=== PATIENT | male | born 1950 | race Caucasian/White ===

== ENCOUNTER → 2020-03-14 08:41 | Outpatient (BNV) | payer MEDICARE, SELFPAY | PROVIDERS: PCP Internal Medicine; Visit Provider Internal Medicine Medical Oncology | DX: Z85.118 Personal history of other malignant neoplasm of bronchus and lung (principal) | CPT/HCPCS: 99213; 99214 ==

== ENCOUNTER → 2020-05-26 10:27 | Outpatient (BNVA) | payer MEDICARE, SELFPAY | PROVIDERS: PCP Internal Medicine; Visit Provider Internal Medicine Gastroenterology | DX: Z76.89 Persons encountering health services in other specified circumstances (principal) | CPT/HCPCS: Q3014 ==

== ENCOUNTER 2020-05-27 02:42 | Inpatient (IN) | payer MEDICARE, SELFPAY ==
[2020-05-27] VITALS (19 sets, daily range): BP systolic 104–139; BP diastolic 47–75; PULSE 70–108; RESP 12–20; TEMP 36.6–37.3; O2SAT 2–97; BMI 31.3
--- NOTE | ~2020-05-27 | XR_ITS ---
EXAMINATION: XR CHEST CLINICAL INFORMATION: Difficulty breathing COMPARISON: 10/07/2019 TECHNIQUE: Frontal view of the chest was obtained. FINDINGS: Cardiac leads overlie the chest. The lungs are well expanded. Chronic left upper lobe volume loss. There is no focal consolidation, edema, or effusion. No pneumothorax. The cardiomediastinal silhouette is within normal limits. No acute osseous abnormality. XR/XR chest 1V IMPRESSION: No acute pulmonary finding.
--- NOTE | 2020-05-27 03:07 | ECG_ITS ---
Test Reason : DYSPNEA Blood Pressure : / mmHG Vent. Rate : 082 BPM Atrial Rate : 082 BPM P-R Int : 150 ms QRS Dur : 084 ms QT Int : 360 ms P-R-T Axes : 054 079 081 degrees QTc Int : 420 ms Normal sinus rhythm Normal ECG When compared with ECG of 07-OCT-2019 11:50, No significant change was found Referred By: Generic ED Physician Electronically Signed By:Carlitos Meyers
[2020-05-27 03:35] LABS: MANUAL DIFF FLAG NO
[2020-05-27 03:36] LABS: Basophils Percent Auto 0.4 % (0-2); Eosinophils Absolute Auto 0.2 X10*3/uL (0.0-0.4); Eosinophils Percent Auto 3.1 % (0-4); Hematocrit 41.5 % (42-52); Hemoglobin 12.3 g/dl (14.0-18.0); Imm Gran Abs Auto 0.03 X10*3/uL (0.00-0.03); Imm Gran Pct Auto 0.4 % (0.0-0.4); Lymphocytes Absolute Auto 0.9 X10*3/uL (1.2-4.9); Lymphocytes Percent Auto 13.1 % (20-40); Mean Corpuscular HGB Conc 29.6 g/dl (31.0-36.0); Mean Corpuscular Hemoglobin 30.4 pg (27.0-33.0); Mean Corpuscular Volume 102.5 fL (80-98); Mean Platelet Volume 9.8 fL (9.4-12.4); Monocytes Absolute Auto 0.6 X10*3/uL (0.1-1.2); Platelet Count 157 X10*3/uL (160-400); Red Blood Count 4.05 X10*6/uL (4.60-5.80); Red Cell Distribution Width 13.1 % (11.0-16.0); White Blood Count 6.8 X10*3/uL (4.8-10.8)
[2020-05-27 03:48] LABS: Glucose Urine UA NEG (NEG); Leukocyte Esterase Urine NEG (NEG); Nitrite Urine NEG (NEG); Specific Gravity - Urine >= 1.030 (1.005-1.025); Urine Blood NEG (NEG); Urine Ketones NEG (NEG); Urine Protein NEG (NEG-TRACE)
[2020-05-27 03:49] LABS: Appearance Urine CLEAR; Color Urine YELLOW
--- NOTE | 2020-05-27 03:50 | ED.GENADULT ---
HPI - General Adult General Chief complaint: Dyspnea Stated complaint: DIFF BREATHING Time Seen by Provider: 05/27/20 03:15 Source: patient Mode of arrival: EMS Limitations: no limitations History of Present Illness HPI narrative: 70-year-old male who presents emergency department for evaluation of shortness of breath. The patient has a history of COPD. He states that over the past 2-3 days he has had increased shortness breath. He states that he has been using his nebulizer machine more frequently and he has been using his inhaler more frequently with no relief of the shortness of breath. He states that he has an occasional nonproductive cough. He denied fever but he did have shaking chills at home. He denied chest pain. He states he has had several loose stools over the past 2-3 days. He denied nausea, vomiting, abdominal pain. He states that he lives at home with his and he has not had any known COVID exposures. The patient states he does wear 2 L of oxygen via nasal cannula continuously at home. Related Data Home Medications Medication Instructions Recorded Confirmed albuterol sulfate 90 mcg/actuation 2 puff PO Q4-6H PRN 01/14/20 05/27/20 aerosol inhaler ipratropium 0.5 mg-albuterol 3 mg ml INHALATION Q6H 01/14/20 05/26/20 (2.5 mg base)/3 mL nebulization soln isosorbide mononitrate 30 mg 30 mg PO DAILY 01/14/20 05/27/20 tablet,extended release 24 hr metformin 1,000 mg tablet 1,000 mg PO BID 01/14/20 05/27/20 metoprolol tartrate 25 mg tablet 25 mg PO BID 01/14/20 05/27/20 omeprazole 20 mg capsule,delayed 20 mg PO DAILY 01/14/20 05/27/20 release Previous Rx's Medication Instructions Recorded atorvastatin 80 mg tablet 80 mg PO BEDTIME #90 tab 03/25/20 glipizide 5 mg tablet 5 mg PO BID #180 tab 03/25/20 multivitamin 1 tab PO DAILY #90 tab 05/13/20 lorazepam 0.5 mg tablet 0.5 mg PO DAILY PRN #30 tab 05/17/20 escitalopram oxalate 20 mg tablet 20 mg PO DAILY #90 tab 05/19/20 Allergies Allergy/AdvReac Type Severity Reaction Status Date / Time umeclidinium Allergy Unknown hives Verified 05/27/20 02:55 [Incruse Ellipta] No Known Allergies Allergy Verified 05/27/20 02:55 [No Known Allergies*] Review of Systems Review of Systems: Yes all other systems are reviewed and are negative Neurologic: Reports Abnormal speech present [facility] Past Medical History Medical History Asthma COPD (chronic obstructive pulmonary disease) Diabetes Hyperlipemia Lung cancer Skin cancer Surgical History History of esophagogastroduodenoscopy (EGD) Hx of colonoscopy Hx of heart artery stent Social History Social History Household Members: Spouse Alcohol intake: never Smoking Status: Former smoker Use of substances other than those prescribed or required for medical reasons: No Advance Directives: No Advance Directives Information Provided: No Current occupational status: retired Physical Exam Vital Signs: Vital Signs: Last Vital Signs Temp 99.1 F 05/27/20 07:00 Pulse 95 05/27/20 07:00 Resp 19 05/27/20 07:00 BP 105/59 L 05/27/20 07:00 Pulse Ox 95 05/27/20 07:00 Body Mass Index 31.3 Const: General: cooperative Orientation/consciousness: oriented to person and oriented to place Limitations: no limitations HENMT: Head: Yes normal to inspection, Yes normocephalic and Yes atraumatic Ears: external ears normal General nose exam: Normal external nose present Face and sinus: Yes normal facial exam Mouth: Normal oral and palatal mucosa present Throat: Yes posterior oropharynx normal Eyes: Periorbital: periorbital findings normal Eyelids: Yes eyelids normal Conjunctivae: conjunctivae normal Sclerae: sclerae normal Corneas: corneas normal Pupils: Equal, round and reactive pupils present Direct Ophthalmoscopy: normal light reflex Neck: Neck: Yes full ROM, Yes no lymphadenopathy, Yes no meningeal signs, Yes trachea midline and Yes supple Chest: Chest palpation & inspection: normal inspection of the chest and normal palpation of entire chest wall Resp: Effort & Inspection: able to speak in complete sentences Auscultation: rhonchi throughout and wheezes throughout Cardio: Rate: regular rate Rhythm: regular rhythm Heart sounds: S1 normal heart sound present, S2 normal heart sound present and no murmurs GI: Inspection: Yes normal to inspection Palpation (GI): Soft to palpation, nontender, no guarding, not rigid and No hepatosplenomegaly present : General: Yes no CVA tenderness Back/Spine/Pelvis: Back: no CVA tenderness Cervical Spine: normal cervical lordosis Thoracic/Lumbar Spine: thoracic and lumbar spine normal to inspection Skin: Lesions: no lesions Rashes: no rashes Wounds: no wounds Neuro: General: oriented to person, oriented to place and no meningeal signs Cranial nerves: Yes CN's II-XII intact bilaterally and Yes Equal, round and reactive pupils present Cognition (Neuro): normal cognition Speech: Abnormal speech present Motor exam (neuro): 5/5 motor strength present throughout Extrem: General: Yes normal to inspection and Yes full ROM Psych: Appearance: well kempt Mental Status: mental status grossly normal Speech and movement: Normal speech and movement present Affect: normal affect Attitude: cooperative Thought process: Normal thought process present Thought content: Normal thought content present Course Course Course Narrative: 70-year-old male with a history of COPD who presents emergency department for evaluation of worsening shortness of breath times 2-3 days, occasional productive cough, and chills. The patient has been using his nebulizer machine and inhalers more frequently over the past several days with little improvement of his shortness of breath. The patient was hypoxic on presentation with an O2 saturation of 85% on room air and his O2 saturation came up to 92% on 2 L via nasal cannula. Lung exam revealed diffuse rhonchi and diffuse wheezing. Differential includes but is not limited to COPD exacerbation, COVID pneumonia, pneumonia, CHF. Did order a workup on this patient to include COVID-19 testing. Patient was ordered to get Solu-Medrol 125 mg IV and an hour long nebulizer of albuterol 7.5 mg. 0458: The patient's laboratory evaluation revealed an elevated bicarb of 48, this is most likely secondary to his chronic COPD. His WBC was normal at 6800. The patient's flu/COVID/RSV tests were negative. Chest x-ray revealed chronic changes with no evidence of acute pneumonia. The patient states that he is feeling minimally better after the above treatment. My impression is that the patient is having a COPD exacerbation and giving the progressive nature of his shortness of breath and the fact that he is using his nebulizer and inhaler more frequently with little effect, the patient will need to be admitted for further management. I will discuss the patient's case with the covering hospitalist. 0656: The patient's ABG did reveal an elevated pCO2 of 101. The patient appears well and I did discuss this elevated pCO2 with the covering continuous pickling line pickler helper Dr. Jones. He recommended that the patient receive acetazolamide 250 mg IV b.i.d. x3 days. He did not think the patient needs BiPAP or ICU level of care at this time. I did order the 1st dose here in the emergency department. I will discuss this with the covering hospitalist. 0742: I did discuss the patient's presentation with Dr. Ventura and the patient will be admitted to the hospitalist service. Medical Decision Making Lab Data Result diagrams: 05/27/20 03:23 05/27/20 03:23 Labs: Lab Results 05/27/20 05/27/20 05/27/20 Range/Units 03:23 03:23 03:23 WBC 6.8 (4.8-10.8) X10*3/uL RBC 4.05 L (4.60-5.80) X10*6/uL Hgb 12.3 L (14.0-18.0) g/dl Hct 41.5 L (42-52) % MCV 102.5 H (80-98) fL MCH 30.4 (27.0-33.0) pg MCHC 29.6 L (31.0-36.0) g/dl RDW 13.1 (11.0-16.0) % Plt Count 157 L (160-400) X10*3/uL MPV 9.8 (9.4-12.4) fL Immature Gran % (Auto) 0.4 (0.0-0.4) % Neut % (Auto) 74.0 H (45-73) % Lymph % (Auto) 13.1 L (20-40) % [place] % (Auto) 9.0 (2-11) % Eos % (Auto) 3.1 (0-4) % Baso % (Auto) 0.4 (0-2) % Lymph # (Auto) 0.9 L (1.2-4.9) X10*3/uL [place] # (Auto) 0.6 (0.1-1.2) X10*3/uL Eos # (Auto) 0.2 (0.0-0.4) X10*3/uL Baso # (Auto) 0.0 (0.0-0.2) X10*3/uL Abs Immat Gran (auto) 0.03 (0.00-0.03) X10*3/uL Absolute Neuts (auto) 5.0 (2.0-8.3) X10*3/uL Absolute Nucleated RBC 0.000 (0.0-0.012) X10*3/uL Nucleated RBC % (auto) 0.0 (0.0-0.2) /100WBC Hold Blue Top SEE NOTE ABG pH (7.35-7.45) ABG pCO2 (32-45) mmHg ABG pO2 (83-108) mmHg ABG HCO3 (22-26) mmol/L ABG O2 Saturation % ABG Base Excess Oxygen Given Sodium 143 (135-145) mmol/L Potassium 4.1 (3.3-5.1) mmol/L Chloride 89 L (96-108) mmol/L Carbon Dioxide 48 H* D (22-29) mmol/L Anion Gap 10 L (12-20) BUN 11 (9-16) mg/dL Creatinine 0.72 (0.5-1.4) mg/dL Estim Creat Clear Calc 99.2 Estimated GFR > 60 Random Glucose 78 D (60-115) mg/dL Calcium 8.9 (8.4-10.2) mg/dL Total Bilirubin 0.7 (0.0-1.0) mg/dL Direct Bilirubin 0.3 (0.0-0.5) mg/dL AST 23 (5-37) U/L ALT 30 (0-40) U/L Alkaline Phosphatase 84 (39-117) U/L Troponin I High Sens (<3.5-35.0) ng/L B-Natriuretic Peptide (<100) pg/mL Total Protein 7.1 (6.5-8.0) g/dL Albumin 4.4 (3.5-5.0) g/dL Urine Color Urine Appearance Urine pH (5.0-8.0) Ur Specific [place] (1.005-1.025) Urine Protein (NEG-TRACE) MG/DL Urine Glucose (UA) (NEG) MG/DL Urine Ketones (NEG) MG/DL Urine Blood (NEG) Urine Nitrite (NEG) Ur Leukocyte Esterase (NEG) Coronavirus (PCR) (Negative) Influenza Type A (PCR) (Negative) Influenza Type B (PCR) (Negative) RSV RNA Qual (PCR) (Negative) 05/27/20 05/27/20 05/27/20 Range/Units 03:23 03:23 03:42 WBC (4.8-10.8) X10*3/uL RBC (4.60-5.80) X10*6/uL Hgb (14.0-18.0) g/dl Hct (42-52) % MCV (80-98) fL MCH (27.0-33.0) pg MCHC (31.0-36.0) g/dl RDW (11.0-16.0) % Plt Count (160-400) X10*3/uL MPV (9.4-12.4) fL Immature Gran % (Auto) (0.0-0.4) % Neut % (Auto) (45-73) % Lymph % (Auto) (20-40) % [place] % (Auto) (2-11) % Eos % (Auto) (0-4) % Baso % (Auto) (0-2) % Lymph # (Auto) (1.2-4.9) X10*3/uL [place] # (Auto) (0.1-1.2) X10*3/uL Eos # (Auto) (0.0-0.4) X10*3/uL Baso # (Auto) (0.0-0.2) X10*3/uL Abs Immat Gran (auto) (0.00-0.03) X10*3/uL Absolute Neuts (auto) (2.0-8.3) X10*3/uL Absolute Nucleated RBC (0.0-0.012) X10*3/uL Nucleated RBC % (auto) (0.0-0.2) /100WBC Hold Blue Top ABG pH (7.35-7.45) ABG pCO2 (32-45) mmHg ABG pO2 (83-108) mmHg ABG HCO3 (22-26) mmol/L ABG O2 Saturation % ABG Base Excess Oxygen Given Sodium (135-145) mmol/L Potassium (3.3-5.1) mmol/L Chloride (96-108) mmol/L Carbon Dioxide (22-29) mmol/L Anion Gap (12-20) BUN (9-16) mg/dL Creatinine (0.5-1.4) mg/dL Estim Creat Clear Calc Estimated GFR Random Glucose (60-115) mg/dL Calcium (8.4-10.2) mg/dL Total Bilirubin (0.0-1.0) mg/dL Direct Bilirubin (0.0-0.5) mg/dL AST (5-37) U/L ALT (0-40) U/L Alkaline Phosphatase (39-117) U/L Troponin I High Sens < 3.5 (<3.5-35.0) ng/L B-Natriuretic Peptide 20 (<100) pg/mL Total Protein (6.5-8.0) g/dL Albumin (3.5-5.0) g/dL Urine Color YELLOW Urine Appearance CLEAR Urine pH 6.0 (5.0-8.0) Ur Specific [place] >= 1.030 H (1.005-1.025) Urine Protein NEG (NEG-TRACE) MG/DL Urine Glucose (UA) NEG (NEG) MG/DL Urine Ketones NEG (NEG) MG/DL Urine Blood NEG (NEG) Urine Nitrite NEG (NEG) Ur Leukocyte Esterase NEG (NEG) Coronavirus (PCR) NEGATIVE (Negative) Influenza Type A (PCR) NEGATIVE (Negative) Influenza Type B (PCR) NEGATIVE (Negative) RSV RNA Qual (PCR) NEGATIVE (Negative) 05/27/20 Range/Units 06:07 WBC (4.8-10.8) X10*3/uL RBC (4.60-5.80) X10*6/uL Hgb (14.0-18.0) g/dl Hct (42-52) % MCV (80-98) fL MCH (27.0-33.0) pg MCHC (31.0-36.0) g/dl RDW (11.0-16.0) % Plt Count (160-400) X10*3/uL MPV (9.4-12.4) fL Immature Gran % (Auto) (0.0-0.4) % Neut % (Auto) (45-73) % Lymph % (Auto) (20-40) % [place] % (Auto) (2-11) % Eos % (Auto) (0-4) % Baso % (Auto) (0-2) % Lymph # (Auto) (1.2-4.9) X10*3/uL [place] # (Auto) (0.1-1.2) X10*3/uL Eos # (Auto) (0.0-0.4) X10*3/uL Baso # (Auto) (0.0-0.2) X10*3/uL Abs Immat Gran (auto) (0.00-0.03) X10*3/uL Absolute Neuts (auto) (2.0-8.3) X10*3/uL Absolute Nucleated RBC (0.0-0.012) X10*3/uL Nucleated RBC % (auto) (0.0-0.2) /100WBC Hold Blue Top ABG pH 7.31 L (7.35-7.45) ABG pCO2 101 H* (32-45) mmHg ABG pO2 70 L (83-108) mmHg ABG HCO3 51 H (22-26) mmol/L ABG O2 Saturation 93.0 % ABG Base Excess 19.8 Oxygen Given 3 L Sodium (135-145) mmol/L Potassium (3.3-5.1) mmol/L Chloride (96-108) mmol/L Carbon Dioxide (22-29) mmol/L Anion Gap (12-20) BUN (9-16) mg/dL Creatinine (0.5-1.4) mg/dL Estim Creat Clear Calc Estimated GFR Random Glucose (60-115) mg/dL Calcium (8.4-10.2) mg/dL Total Bilirubin (0.0-1.0) mg/dL Direct Bilirubin (0.0-0.5) mg/dL AST (5-37) U/L ALT (0-40) U/L Alkaline Phosphatase (39-117) U/L Troponin I High Sens (<3.5-35.0) ng/L B-Natriuretic Peptide (<100) pg/mL Total Protein (6.5-8.0) g/dL Albumin (3.5-5.0) g/dL Urine Color Urine Appearance Urine pH (5.0-8.0) Ur Specific [place] (1.005-1.025) Urine Protein (NEG-TRACE) MG/DL Urine Glucose (UA) (NEG) MG/DL Urine Ketones (NEG) MG/DL Urine Blood (NEG) Urine Nitrite (NEG) Ur Leukocyte Esterase (NEG) Coronavirus (PCR) (Negative) Influenza Type A (PCR) (Negative) Influenza Type B (PCR) (Negative) RSV RNA Qual (PCR) (Negative) ECG Data Attestation: I personally reviewed and interpreted this ECG as follows: Interpretation: 0253: Normal sinus rhythm with a rate of 82, normal VT, QRS and QTC intervals, no ST segment elevation or depression, normal EKG. Critical Care Time Critical Care Time Critical Care Time: Yes Total Critical Care Time: 45 Attestation: Critical Care: The patient was critically ill with a high probability of imminent or life threatening deterioration. I spent greater than 30 minutes of discontinuous time evaluating the patient,delivering critical care at the bedside, discussing and evaluating pertinent data with consultants. Critical care time does not include time spent performing separately billable procedures or teaching. Total time spent performing critical care was 45 minutes. Discharge Plan Discharge Prescriptions: No Action atorvastatin 80 mg tablet 80 mg PO BEDTIME Qty: 90 RF: 1 glipizide 5 mg tablet 5 mg PO BID Qty: 180 RF: 1 multivitamin [Daily-Kathleen] Tablet 1 tab PO DAILY Qty: 90 RF: 3 lorazepam 0.5 mg tablet 0.5 mg PO DAILY PRN (Reason: anxiety) Qty: 30 RF: 0 escitalopram oxalate 20 mg tablet 20 mg PO DAILY Qty: 90 RF: 1 omeprazole 20 mg capsule,delayed release(DR/EC) 20 mg PO DAILY RF: 0 metoprolol tartrate 25 mg tablet 25 mg PO BID RF: 0 isosorbide mononitrate 30 mg tablet extended release 24 hr 30 mg PO DAILY RF: 0 metformin 1,000 mg tablet 1,000 mg PO BID RF: 0 albuterol sulfate 90 mcg/actuation HFA aerosol inhaler 2 puff PO Q4-6H PRN (Reason: Shortness Of Breath Or Wheezing) RF: 0 ipratropium-albuterol 0.5 mg-3 mg(2.5 mg base)/3 mL solution for nebulization inhalation Q6H RF: 0
[2020-05-27] MEDS: Albuterol Sulfate (0.083%) 2.5 MG/3 ML VIAL.NEB 7.5 MG INHALE (04:08)
[2020-05-27 04:13] LABS: Anion Gap 10 (12-20); Blood Urea Nitrogen 11 mg/dL (9-16); Calcium 8.9 mg/dL (8.4-10.2); Carbon Dioxide 48 mmol/L (22-29); Chloride 89 mmol/L (96-108); Creatinine Clr Calc Pharmacy 99.2; Estimated Glomerular Filt Rate > 60; Glucose Random 78 mg/dL (60-115); Potassium 4.1 mmol/L (3.3-5.1); Sodium 143 mmol/L (135-145)
[2020-05-27 04:14] LABS: Influenza A PCR NEGATIVE (Negative); Influenza B PCR NEGATIVE (Negative); Resp Syncy Virus RNA Qual PCR NEGATIVE (Negative); SARS COV2 PCR INHOUSE NEGATIVE (Negative)
[2020-05-27 04:19] LABS: B Type Natriuretic Peptide 20 pg/mL (<100); Troponin-I High Sensitivity < 3.5 ng/L (<3.5-35.0)
[2020-05-27 04:27] LABS: Alanine Aminotransferase 30 U/L (0-40); Albumin Level 4.4 g/dL (3.5-5.0); Alkaline Phosphatase 84 U/L (39-117); Aspartate Amino Transferase 23 U/L (5-37); Bilirubin Direct 0.3 mg/dL (0.0-0.5); Bilirubin Total 0.7 mg/dL (0.0-1.0); Total Protein 7.1 g/dL (6.5-8.0)
[2020-05-27 06:21] LABS: Pt Ventilation O2% 3 L
[2020-05-27 06:24] LABS: Base Excess ABG 19.8; HCO3 ABG 51 mmol/L (22-26); PO2 ABG 70 mmHg (83-108); pH ABG 7.31 (7.35-7.45)
[2020-05-27 06:25] LABS: ABG PCO2 101 mmHg (32-45)
--- NOTE | 2020-05-27 06:51 | PC.NURSE ---
Report given to KATIE Ozuna and care transferred at this time
--- NOTE | 2020-05-27 07:11 | PC.NURSE ---
report taken from Erica WILSON. pt resting comfortably upon assessment. no respiratory distress. pt wearing 2L o2 which he states he wears at baseline. vitals updated. pt Co2 level elevated. order for Diamox IV push, call to pharmacy, will bring med. pt aware he will be admitted to hospital.
[2020-05-27] MEDS: acetaZOLAMIDE sodium 500 MG VIAL 250 MG IVPUSH (07:20)
--- NOTE | 2020-05-27 10:12 | PC.NURSE ---
patient taken off bipap. ABG redrawn. waiting results
[2020-05-27 10:16] LABS: Pt Ventilation O2% 30%
[2020-05-27 10:23] LABS: Base Excess ABG 11.8; HCO3 ABG 40 mmol/L (22-26); PO2 ABG 65 mmHg (83-108); pH ABG 7.33 (7.35-7.45)
[2020-05-27 10:24] LABS: ABG PCO2 75 mmHg (32-45)
--- NOTE | 2020-05-27 10:46 | P.HPHOSP_ITS ---
History of Present Illness Date of Service: 05/27/20 Chief Complaint: shortness of breath hypoxia 70-year-old male with history of COPD and lung cancer presented with worsening shortness of breath for last 3- 4 days, patient reported he quit smoking 10 15 years back, patient was noticing more shortness of breath for last 3 -4 days was getting worse with activity, patient also reported he was not able to sleep flat at night , patient tried nebulizer at home with no improvement, patient denies any fever chills cough or sick contacts, COVID PCR was negative, in the ER ABG shows hypercapnia with pCO2 of 100, patient was awake alert, patient was placed on BiPAP for few hours with improvement in pCO2 and inpatient admission was requested, patient has known history of lung cancer and follows Dr. Perdomo Review of Systems Constitutional: Constitutional: Reports weakness Cardiovascular: Cardiovascular: Denies chest pain, Reports dyspnea and Reports dyspnea on exertion Respiratory: Respiratory: Reports dyspnea and Reports dyspnea on exertion Gastrointestinal: Gastrointestinal: Denies heartburn and Denies vomiting Musculoskeletal: Musculoskeletal: Reports no additional musculoskeletal complaints Neurologic: Denies focal weakness and Reports weakness PMFSH Medical History Asthma COPD (chronic obstructive pulmonary disease) Diabetes Hyperlipemia Lung cancer Skin cancer Family History (Updated 05/27/20 @ 15:21 by Leo Antonio MD) Other HTN (hypertension) Surgical History History of esophagogastroduodenoscopy (EGD) Hx of colonoscopy Hx of heart artery stent Social History Household Members: Spouse Alcohol intake: never Smoking Status: Former smoker Use of substances other than those prescribed or required for medical reasons: No Advance Directives: No Advance Directives Information Provided: No Current occupational status: retired Meds Allergies Allergy/AdvReac Type Severity Reaction Status Date / Time umeclidinium Allergy Unknown hives Verified 05/27/20 02:55 [Incruse Ellipta] No Known Allergies Allergy Verified 05/27/20 02:55 [No Known Allergies*] Active Medications: Current Medications Generic Name Dose Route Start Last Admin Trade Name Freq PRN Reason Stop Dose Admin Pharmacy Consult 1 each 05/27/20 04:57 Consult Rx Perform Med Rec MISCELLANE ONCE PRN Consult order Home Medications Medication Instructions Recorded Confirmed Last Taken Type albuterol sulfate 90 mcg/actuation 2 puff PO Q4-6H PRN 01/14/20 05/27/20 05/27/20 History aerosol inhaler 0200 ipratropium 0.5 mg-albuterol 3 mg ml INHALATION Q6H 01/14/20 05/26/20 Unknown History (2.5 mg base)/3 mL nebulization soln isosorbide mononitrate 30 mg 30 mg PO DAILY 01/14/20 05/27/20 Unknown History tablet,extended release 24 hr metformin 1,000 mg tablet 1,000 mg PO BID 01/14/20 05/27/20 Unknown History metoprolol tartrate 25 mg tablet 25 mg PO BID 01/14/20 05/27/20 Unknown History omeprazole 20 mg capsule,delayed 20 mg PO DAILY 01/14/20 05/27/20 Unknown History release Physical Exam Vital Signs and Narrative: Vital Signs: Last Vital Signs Temp 99.1 F 05/27/20 07:00 Pulse 94 05/27/20 10:00 Resp 18 05/27/20 10:00 BP 111/75 05/27/20 10:00 Pulse Ox 95 05/27/20 10:00 Body Mass Index 31.3 Results Labs CBC and Chem 7: 05/27/20 03:23 05/27/20 03:23 Labs: Laboratory Results - last 24 hr 05/27/20 05/27/20 05/27/20 03:23 03:23 03:23 MCV 102.5 H MCH 30.4 MCHC 29.6 L RDW 13.1 Plt Count 157 L MPV 9.8 Immature Gran % (Auto) 0.4 Neut % (Auto) 74.0 H Lymph % (Auto) 13.1 L [place] % (Auto) 9.0 Eos % (Auto) 3.1 Baso % (Auto) 0.4 Lymph # (Auto) 0.9 L [place] # (Auto) 0.6 Eos # (Auto) 0.2 Baso # (Auto) 0.0 Abs Immat Gran (auto) 0.03 Absolute Neuts (auto) 5.0 Absolute Nucleated RBC 0.000 Nucleated RBC % (auto) 0.0 Hold Blue Top SEE NOTE ABG pH ABG pCO2 ABG pO2 ABG HCO3 ABG O2 Saturation ABG Base Excess Oxygen Given Anion Gap 10 L Estim Creat Clear Calc 99.2 Estimated GFR > 60 Random Glucose 78 D Calcium 8.9 Total Bilirubin 0.7 Direct Bilirubin 0.3 AST 23 ALT 30 Alkaline Phosphatase 84 Troponin I High Sens B-Natriuretic Peptide Total Protein 7.1 Albumin 4.4 Urine Color Urine Appearance Urine pH Ur Specific [place] Urine Protein Urine Glucose (UA) Urine Ketones Urine Blood Urine Nitrite Ur Leukocyte Esterase Coronavirus (PCR) Influenza Type A (PCR) Influenza Type B (PCR) RSV RNA Qual (PCR) 05/27/20 05/27/20 05/27/20 03:23 03:23 03:42 MCV MCH MCHC RDW Plt Count MPV Immature Gran % (Auto) Neut % (Auto) Lymph % (Auto) [place] % (Auto) Eos % (Auto) Baso % (Auto) Lymph # (Auto) [place] # (Auto) Eos # (Auto) Baso # (Auto) Abs Immat Gran (auto) Absolute Neuts (auto) Absolute Nucleated RBC Nucleated RBC % (auto) Hold Blue Top ABG pH ABG pCO2 ABG pO2 ABG HCO3 ABG O2 Saturation ABG Base Excess Oxygen Given Anion Gap Estim Creat Clear Calc Estimated GFR Random Glucose Calcium Total Bilirubin Direct Bilirubin AST ALT Alkaline Phosphatase Troponin I High Sens < 3.5 B-Natriuretic Peptide 20 Total Protein Albumin Urine Color YELLOW Urine Appearance CLEAR Urine pH 6.0 Ur Specific [place] >= 1.030 H Urine Protein NEG Urine Glucose (UA) NEG Urine Ketones NEG Urine Blood NEG Urine Nitrite NEG Ur Leukocyte Esterase NEG Coronavirus (PCR) NEGATIVE Influenza Type A (PCR) NEGATIVE Influenza Type B (PCR) NEGATIVE RSV RNA Qual (PCR) NEGATIVE 05/27/20 05/27/20 06:07 10:05 MCV MCH MCHC RDW Plt Count MPV Immature Gran % (Auto) Neut % (Auto) Lymph % (Auto) [place] % (Auto) Eos % (Auto) Baso % (Auto) Lymph # (Auto) [place] # (Auto) Eos # (Auto) Baso # (Auto) Abs Immat Gran (auto) Absolute Neuts (auto) Absolute Nucleated RBC Nucleated RBC % (auto) Hold Blue Top ABG pH 7.31 L 7.33 L ABG pCO2 101 H* 75 H* ABG pO2 70 L 65 L ABG HCO3 51 H 40 H ABG O2 Saturation 93.0 91.0 ABG Base Excess 19.8 11.8 Oxygen Given 3 L 30% Anion Gap Estim Creat Clear Calc Estimated GFR Random Glucose Calcium Total Bilirubin Direct Bilirubin AST ALT Alkaline Phosphatase Troponin I High Sens B-Natriuretic Peptide Total Protein Albumin Urine Color Urine Appearance Urine pH Ur Specific [place] Urine Protein Urine Glucose (UA) Urine Ketones Urine Blood Urine Nitrite Ur Leukocyte Esterase Coronavirus (PCR) Influenza Type A (PCR) Influenza Type B (PCR) RSV RNA Qual (PCR) Imaging Radiologist's Impressions: Impressions Chest X-Ray 05/27/20 03:07 IMPRESSION: No acute pulmonary finding. Assessment and Plan (1) COPD exacerbation: Status: Acute (2) Acute respiratory failure with hypoxia and hypercapnia: Status: Acute (3) Gallbladder polyp: Status: Acute (4) GERD (gastroesophageal reflux disease): Problem details: Continue omeprazole 20 mg once daily Status: Acute (5) Cirrhosis of liver without ascites: Status: Acute (6) Herpes zoster: Qualifiers: Herpes zoster complications: without complications Qualified Code(s): B02.9 - Zoster without complications Status: Acute (7) Squamous cell carcinoma of lung: Status: Acute 70-year-old male with known history of COPD presented with worsening shortness of breath , ABG on admission shows hypoxia with pCO2 101 and pH 7.3, patient was placed on BiPAP for few hours with improvement in pCO2 and admitted to telemetry Acute on chronic hypercapnic and hypoxic respiratory failure secondary to COPD exacerbation COVID PCR negative continue Duonebs Nebulizers ATC and PRN continue Solu-Medrol continue O2 supplement pulmonology consult for significant hypercapnia DM II hold metformin will start on sliding scale insulin monitor blood glucose HLD continue Statin Hx CAD troponin and BNP normal on admission Continue ASA, Isosorbide and BB GERD continue Omeprazole Anxiety continue Ativan and Escitalopram history of lung cancer follows Dr. Perdomo as outpatient history of cirrhosis SNELL follow-up GI as outpatient DVT PPx Heparin SC
[2020-05-27 14:22] LABS: Glucose, Whole Blood 341 mg/dL (60-115)
[2020-05-27] MEDS: LORazepam 0.5 MG TABLET PO (15:12)
[2020-05-27] MEDS: Isosorbide Mononitrate 30 MG TAB.ER.24H PO (15:13)
[2020-05-27] MEDS: Albuterol/Iprat 2.5/0.5MG 3 ML AMPUL.NEB INHALE ×2 (15:19→20:04)
[2020-05-27 15:23] LABS: Glucose, Whole Blood 361 mg/dL (60-115)
[2020-05-27] MEDS: Insulin Lispro 100 UNIT/ML 3 ML VIAL SUBCUT ×3 (15:29→21:31)
[2020-05-27 16:16] LABS: Glucose, Whole Blood 360 mg/dL (60-115)
--- NOTE | 2020-05-27 17:50 | PM.CNPUL ---
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 Marr, and treated with Symbicort, Spiriva, Daliresp, and albuterol MDI/nebs. 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 Perdomo, nonalcoholic steatohepatitis with early cirrhosis, coronary artery disease, diabetes mellitus, and hypertension admitted on 05/27/2020 with 3-4 day history of progressive dyspnea associated with wheezing. On ER evaluation patient was noted to have an acute exacerbation of his underlying COPD. He has been started on nebulized bronchodilators and systemic glucocorticoids with some improvement. He has had a negative COVID PCR. He was noted to have significantly elevated pCO2, bicarbonate, and mild acidosis with pH of 7.31. He has been briefly tried on BiPAP with some improvement in his pCO2, however no significant changes in his pH. He remained fully alert and oriented with no evidence of CO2 narcosis. On my evaluation he reports improved dyspnea and wheezing since his initial evaluation. Review of Systems Constitutional: Constitutional: Denies daytime sleepiness, Denies excessive sweating, Denies fatigue, Denies fever(s), Denies lethargy, Denies malaise, Denies night sweats, Denies snoring and Denies weight loss Eyes: Eyes: Denies blurry vision and Denies itchy eyes ENT: Denies nasal congestion, Denies post nasal drip, Denies sinus pain, Denies sinus pressure and Denies other ( Thrush) Cardiovascular: Cardiovascular: Denies chest pain, Denies pedal edema, Reports dyspnea, Denies orthopnea and Denies paroxysmal nocturnal dyspnea Respiratory: Respiratory: Denies cough, Denies hemoptysis, Denies excessive phlegm production, Reports dyspnea, Denies snoring and Reports wheezing Gastrointestinal: Gastrointestinal: Denies abdominal pain and Denies heartburn Musculoskeletal: Musculoskeletal: Denies myalgias, Denies arthralgias and Denies joint swelling Integumentary/Breasts: Skin/Breast: Denies rash Neurologic: Denies memory loss and Denies seizure-like activity Psychiatric: Psychiatric: Denies abnormal sleep pattern, Denies anxiety and Denies memory loss Endocrine: Endocrine: Denies excessive sweating, Denies fatigue and Denies heat intolerance Hematologic/Lymphatic: Hematologic/Lymphatic: Denies easy bruising Allergic/Immunologic: Allergic/Immunologic: Denies itchy eyes, Denies seasonal rhinorrhea and Reports wheezing [facility] Past Medical History Medical History Asthma COPD (chronic obstructive pulmonary disease) Diabetes Hyperlipemia Lung cancer Skin cancer Family History Family History (Updated 05/27/20 @ 15:21 by Leo Antonio MD) Other HTN (hypertension) Surgical History Surgical History History of esophagogastroduodenoscopy (EGD) Hx of colonoscopy Hx of heart artery stent Social History Social History Household Members: Spouse Alcohol intake: never Smoking Status: Former smoker Use of substances other than those prescribed or required for medical reasons: No Advance Directives: No Advance Directives Information Provided: No Current occupational status: retired Meds Allergies Allergy/AdvReac Type Severity Reaction Status Date / Time umeclidinium Allergy Unknown hives Verified 05/27/20 02:55 [Incruse Ellipta] No Known Allergies Allergy Verified 05/27/20 02:55 [No Known Allergies*] Active Medications: Current Medications Generic Name Dose Route Start Last Admin Trade Name Freq PRN Reason Stop Dose Admin Albuterol/Ipratropium 3 ml 05/27/20 14:32 05/27/20 16:14 Albuterol/Iprat 2.5/0.5mg 3 Ml Ampul.Neb INHALE Not Given RQ4H WHILE AWAKE DUTCH Albuterol/Ipratropium 3 ml 05/27/20 14:32 Albuterol/Iprat 2.5/0.5mg 3 Ml Ampul.Neb INHALE RQ4H PRN Dyspnea Atorvastatin Calcium 80 mg 05/27/20 21:00 Atorvastatin Calcium 80 Mg Tablet PO BEDTIME [facility] Escitalopram Oxalate 20 mg 05/28/20 09:00 Escitalopram Oxalate 20 Mg Tablet PO DAILY [facility] Heparin Sodium (Porcine) 5,000 unit 05/27/20 16:00 Heparin Sodium,Porcine 5,000 Unit/Ml Vial SUBCUT Q12H [facility] Insulin Human Lispro 0 unit 05/27/20 16:30 05/27/20 15:29 Insulin Lispro 100 Unit/Ml 3 Ml Vial SUBCUT 10 unit QIDACHS [facility] Administration Protocol Isosorbide Mononitrate 30 mg 05/27/20 14:32 05/27/20 15:13 Isosorbide Mononitrate 30 Mg Tab.Er.24h PO 30 mg DAILY [facility] Administration Protocol Lorazepam 0.5 mg 05/27/20 14:32 05/27/20 15:12 Lorazepam 0.5 Mg Tablet PO 0.5 mg DAILY PRN Administration anxiety Metformin HCl 1,000 mg 05/27/20 21:00 Metformin Hcl 1,000 Mg Tablet PO BID [facility] Methylprednisolone Sodium Succinate 40 mg 05/27/20 15:00 05/27/20 15:10 Methylprednisolone Sod Succ/Pf 40 Mg/Ml Vial IVPUSH 40 mg Q12H [facility] Administration Metoprolol Tartrate 25 mg 05/27/20 21:00 Metoprolol Tartrate 25 Mg Tablet PO BID [facility] Protocol Multivitamins/Vitamin C 1 tab 05/28/20 09:00 Multivitamin Tablet PO DAILY [facility] Omeprazole 20 mg 05/28/20 09:00 Omeprazole 20 Mg Capsule. PO DAILY [facility] Pharmacy Consult 1 each 05/27/20 04:57 Consult Rx Perform Med Rec MISCELLANE ONCE PRN Consult order Sodium Chloride 3 ml 05/27/20 16:00 0.9 % Sodium Chloride Flush 3 M[facility] [place] [facility] Medications Medication Instructions Recorded Confirmed Last Taken Type albuterol sulfate 90 mcg/actuation 2 puff PO Q4-6H PRN 01/14/20 05/27/20 05/27/20 History aerosol inhaler 0200 ipratropium 0.5 mg-albuterol 3 mg ml INHALATION Q6H 01/14/20 05/26/20 Unknown History (2.5 mg base)/3 mL nebulization soln isosorbide mononitrate 30 mg 30 mg PO DAILY 01/14/20 05/27/20 Unknown History tablet,extended release 24 hr metformin 1,000 mg tablet 1,000 mg PO BID 01/14/20 05/27/20 Unknown History metoprolol tartrate 25 mg tablet 25 mg PO BID 01/14/20 05/27/20 Unknown History omeprazole 20 mg capsule,delayed 20 mg PO DAILY 01/14/20 05/27/20 Unknown History release Physical Exam Vital Signs: Vital Signs: Last Vital Signs Temp 98.9 F 05/27/20 14:12 Pulse 96 05/27/20 17:20 Resp 20 05/27/20 17:20 BP 109/55 L 05/27/20 17:20 Pulse Ox 94 05/27/20 17:20 Body Mass Index 31.3 Const: General: no acute distress, alert and awake Eyes: Sclerae: sclerae normal EOM: EOMs intact bilaterally Neck: Neck: Yes no lymphadenopathy, Yes trachea midline and Yes supple Resp: Effort & Inspection: normal respiratory effort and no respiratory distress Auscultation: wheezes expiratory wheezes (Bilateral) and other (Poor bilateral air movement) Cardio: Rate: regular rate Rhythm: regular rhythm Heart sounds: no gallops, no murmurs and no rubs GI: Palpation (GI): Soft to palpation and Other GI palpation findings present ( Nontender) Auscultation: normal bowel sounds Extrem: General: No clubbing, No cyanosis and Yes edema (Trace bilateral) Results Laboratory Findings CBC and BMP: 05/27/20 03:23 05/27/20 03:23 ABG, PT/INR, D-dimer: ABG ABG pH 7.33 (7.35-7.45) L 05/27/20 10:05 ABG pCO2 75 mmHg (32-45) H* 05/27/20 10:05 ABG pO2 65 mmHg (83-108) L 05/27/20 10:05 ABG O2 Saturation 91.0 % 05/27/20 10:05 Abnormal lab findings: Abnormal Labs 05/27/20 05/27/20 05/27/20 03:23 03:23 03:42 RBC 4.05 L Hgb 12.3 L Hct 41.5 L MCV 102.5 H MCHC 29.6 L Plt Count 157 L Neut % (Auto) 74.0 H Lymph % (Auto) 13.1 L Lymph # (Auto) 0.9 L ABG pH ABG pCO2 ABG pO2 ABG HCO3 Chloride 89 L Carbon Dioxide 48 H* D Anion Gap 10 L POC Glucose Ur Specific [place] >= 1.030 H 05/27/20 05/27/20 05/27/20 06:07 10:05 14:18 RBC Hgb Hct MCV MCHC Plt Count Neut % (Auto) Lymph % (Auto) Lymph # (Auto) ABG pH 7.31 L 7.33 L ABG pCO2 101 H* 75 H* ABG pO2 70 L 65 L ABG HCO3 51 H 40 H Chloride Carbon Dioxide Anion Gap POC Glucose 341 H Ur Specific [place] 05/27/20 05/27/20 15:17 16:12 RBC Hgb Hct MCV MCHC Plt Count Neut % (Auto) Lymph % (Auto) Lymph # (Auto) ABG pH ABG pCO2 ABG pO2 ABG HCO3 Chloride Carbon Dioxide Anion Gap POC Glucose 361 H* 360 H* Ur Specific [place] Assessment and Plan (1) COPD exacerbation: Status: Acute Impression: Acute exacerbation of underlying severe supplemental oxygen dependent COPD with chronic CO2 retention. Now improving slowly. Recommendation: Agree with nebulized bronchodilators and systemic glucocorticoids. Would consider 5 day course of azithromycin for its anti-inflammatory effect in COPD patient's. Would suggest to 3 day course of acetazolamide to 100 mg IV twice a day.
[2020-05-27 18:04] LABS: Glucose, Whole Blood 356 mg/dL (60-115)
[2020-05-27] MEDS: 0.9 % Sodium Chloride Flush 3 ML SYRINGE IVFLUSH (18:16)
--- NOTE | 2020-05-27 20:05 | PC.NURSE ---
ATTEMPTED TO CALL I[facility] TO GIVE RN TO RN REPORT. [facility] NURSE UNAVAILABLE AT THIS TIME, INSTRUCTED TO CALL BACK THIS RN AT EXTENSION [phone]. AWAITING CALL BACK. WILL CONTINUE TO MONITOR PATIENT. RESPIRATORY THERAPIST AT BEDSIDE AT THIS TIME.
[2020-05-27 21:22] LABS: Glucose, Whole Blood 396 mg/dL (60-115)
[2020-05-27] MEDS: metFORMIN HCl 1,000 MG TABLET 1000 MG PO (21:30)
[2020-05-27] MEDS: Atorvastatin Calcium 80 MG TABLET PO (21:30)
[2020-05-27] MEDS: Metoprolol Tartrate 25 MG TABLET PO (21:30)
[2020-05-28] VITALS (12 sets, daily range): BP systolic 101–150; BP diastolic 54–85; PULSE 74–104; RESP 18–19; TEMP 36.6–37.1; O2SAT 85–94
[2020-05-28] MEDS: 0.9 % Sodium Chloride Flush 3 ML SYRINGE IVFLUSH ×3 (00:09→16:21)
[2020-05-28] MEDS: LORazepam 0.5 MG TABLET PO (00:15)
[2020-05-28] MEDS: Heparin Sodium,Porcine 5,000 UNIT/ML VIAL 5000 UNIT SUBCUT (03:42)
[2020-05-28] MEDS: Albuterol/Iprat 2.5/0.5MG 3 ML AMPUL.NEB INHALE ×4 (07:42→19:36)
[2020-05-28 08:17] LABS: Glucose, Whole Blood 218 mg/dL (60-115)
--- NOTE | 2020-05-28 08:39 | MHC.CM.PN ---
CM met with Patient at bedside and addressed IMM, giving Patient the original and placing a copy on the chart.Patient lives in a house with his and 12 year old Grandson and he uses O2 supplied through [employer].Patient's goal is to return home and CM has initiated and will follow for dc planning. PCP is Dr. Anne-Marie Muro.
[2020-05-28 09:18] LABS: Anion Gap 16 (12-20); Blood Urea Nitrogen 20 mg/dL (9-16); Calcium 9.5 mg/dL (8.4-10.2); Carbon Dioxide 35 mmol/L (22-29); Chloride 93 mmol/L (96-108); Estimated Glomerular Filt Rate > 60; Glucose Random 224 mg/dL (60-115); Sodium 140 mmol/L (135-145)
[2020-05-28] MEDS: Insulin Lispro 100 UNIT/ML 3 ML VIAL SUBCUT ×3 (09:19→20:19)
[2020-05-28] MEDS: Isosorbide Mononitrate 30 MG TAB.ER.24H PO (09:22)
[2020-05-28] MEDS: Escitalopram Oxalate 20 MG TABLET PO (09:23)
[2020-05-28] MEDS: Metoprolol Tartrate 25 MG TABLET PO ×2 (09:23→20:19)
[2020-05-28] MEDS: metFORMIN HCl 1,000 MG TABLET 1000 MG PO ×2 (09:23→20:19)
[2020-05-28] MEDS: Multivitamin TABLET 1 TAB PO (09:23)
[2020-05-28] MEDS: Omeprazole 20 MG CAPSULE.DR PO (09:24)
[2020-05-28] MEDS: Azithromycin 500 MG TABLET PO (09:37)
[2020-05-28] MEDS: acetaZOLAMIDE sodium 500 MG VIAL IVPUSH (11:03)
--- NOTE | 2020-05-28 11:19 | P.PNIM_ITS ---
Subjective Subjective Date of Service: 05/28/20 Interval History: Patient seen and examined at bedside patient still reporting shortness of breath Constitutional Constitutional: Reports weakness Cardiovascular Cardiovascular: Denies chest pain, Reports dyspnea and Reports dyspnea on exertion Respiratory Respiratory: Reports dyspnea and Reports dyspnea on exertion Gastrointestinal Gastrointestinal: Denies heartburn and Denies vomiting Musculoskeletal Musculoskeletal: Reports no additional musculoskeletal complaints Neurologic Neurologic: Reports Abnormal speech present, Denies focal weakness and Reports weakness Physical Exam Vital Signs: Vital Signs: Last Vital Signs Temp 98.2 F 05/28/20 08:00 Pulse 104 H 05/28/20 09:23 Resp 18 05/28/20 08:00 BP 150/85 H 05/28/20 09:23 Pulse Ox 94 05/28/20 08:00 Body Mass Index 31.3 Const: General: cooperative, no acute distress, alert and awake Orientation/consciousness: oriented to person and oriented to place Limitations: no limitations HENMT: Head: Yes normal to inspection, Yes normocephalic and Yes atraumatic Ears: external ears normal General nose exam: Normal external nose present Face and sinus: Yes normal facial exam Mouth: Normal oral and palatal mucosa present Throat: Yes posterior oropharynx normal Eyes: Periorbital: periorbital findings normal Eyelids: Yes eyelids normal Conjunctivae: conjunctivae normal Sclerae: sclerae normal Corneas: corneas normal Pupils: Equal, round and reactive pupils present EOM: EOMs intact bilaterally Direct Ophthalmoscopy: normal light reflex Neck: Neck: Yes full ROM, Yes no lymphadenopathy, Yes no meningeal signs, Yes trachea midline and Yes supple Chest: Chest palpation & inspection: normal inspection of the chest and normal palpation of entire chest wall Resp: Effort & Inspection: normal respiratory effort, able to speak in complete sentences and no respiratory distress Auscultation: rhonchi throughout, wheezes expiratory wheezes (Bilateral) and other (Poor bilateral air movement) Cardio: Rate: regular rate Rhythm: regular rhythm Heart sounds: S1 normal heart sound present, S2 normal heart sound present, no gallops, no murmurs and no rubs GI: Inspection: Yes normal to inspection Palpation (GI): Soft to palpation, nontender, no guarding, not rigid, No hepatosplenomegaly present and Other GI palpation findings present ( Nontender) Auscultation: normal bowel sounds : General: Yes no CVA tenderness Back/Spine/Pelvis: Back: no CVA tenderness Cervical Spine: normal cervical lordosis Thoracic/Lumbar Spine: thoracic and lumbar spine normal to inspection Skin: Lesions: no lesions Rashes: no rashes Wounds: no wounds Neuro: General: oriented to person, oriented to place and no meningeal signs Cranial nerves: Yes CN's II-XII intact bilaterally and Yes Equal, round and reactive pupils present Cognition (Neuro): normal cognition Speech: Abnormal speech present Motor exam (neuro): 5/5 motor strength present throughout Extrem: General: Yes normal to inspection, Yes full ROM, No clubbing, No cyanosis and Yes edema (Trace bilateral) Psych: Appearance: well kempt Mental Status: mental status grossly normal Speech and movement: Normal speech and movement present Affect: normal affec t Attitude: cooperative Thought process: Normal thought process present Thought content: Normal thought content present Objective Data Current Medications Generic Name Dose Route Start Last Admin Trade Name Freq PRN Reason Stop Dose Admin Albuterol/Ipratropium 3 ml 05/27/20 14:32 05/28/20 07:42 Albuterol/Iprat 2.5/0.5mg 3 Ml Ampul.Neb INHALE 3 ml RQ4H WHILE AWAKE [facility] Administration Albuterol/Ipratropium 3 ml 05/27/20 14:32 Albuterol/Iprat 2.5/0.5mg 3 Ml Ampul.Neb INHALE RQ4H PRN Dyspnea Atorvastatin Calcium 80 mg 05/27/20 21:00 05/27/20 21:30 Atorvastatin Calcium 80 Mg Tablet PO 80 mg BEDTIME [facility] Administration Azithromycin 500 mg 05/28/20 08:00 05/28/20 09:37 Azithromycin 500 Mg Tablet PO 500 mg Q24H [facility] Administration Escitalopram Oxalate 20 mg 05/28/20 09:00 05/28/20 09:23 Escitalopram Oxalate 20 Mg Tablet PO 20 mg DAILY [facility] Administration Heparin Sodium (Porcine) 5,000 unit 05/27/20 16:00 05/28/20 03:42 Heparin Sodium,Porcine 5,000 Unit/Ml Vial SUBCUT 5,000 unit Q12H [facility] Administration Insulin Human Lispro 0 unit 05/27/20 16:30 05/28/20 09:19 Insulin Lispro 100 Unit/Ml 3 Ml Vial SUBCUT 1 unit QIDACHS [facility] Administration Protocol Isosorbide Mononitrate 30 mg 05/27/20 14:32 05/28/20 09:22 Isosorbide Mononitrate 30 Mg Tab.Er.24h PO 30 mg DAILY [facility] Administration Protocol Lorazepam 0.5 mg 05/27/20 14:32 05/28/20 00:15 Lorazepam 0.5 Mg Tablet PO 0.5 mg DAILY PRN Administration anxiety Metformin HCl 1,000 mg 05/27/20 21:00 05/28/20 09:23 Metformin Hcl 1,000 Mg Tablet PO 1,000 mg BID [facility] Administration Methylprednisolone Sodium Succinate 40 mg 05/27/20 15:00 05/28/20 03:43 Methylprednisolone Sod Succ/Pf 40 Mg/Ml Vial IVPUSH 40 mg Q12H [facility] Administration Metoprolol Tartrate 25 mg 05/27/20 21:00 05/28/20 09:23 Metoprolol Tartrate 25 Mg Tablet PO 25 mg BID [facility] Administration Protocol Multivitamins/Vitamin C 1 tab 05/28/20 09:00 05/28/20 09:23 Multivitamin Tablet PO 1 tab DAILY [facility] Administration Omeprazole 20 mg 05/28/20 09:00 05/28/20 09:24 Omeprazole 20 Mg Capsule. PO 20 mg DAILY [facility] Administration Pharmacy Consult 1 each 05/27/20 04:57 Consult Rx Perform Med Rec MISCELLANE ONCE PRN Consult order Sodium Chloride 3 ml 05/27/20 16:00 05/28/20 09:24 0.9 % Sodium Chloride Flush 3 Ml Syringe IVFLUSH 3 ml QSHIFT [facility] Administration Labs CBC & Chem 7: 05/27/20 03:23 05/28/20 08:15 Assessment and Plan (1) COPD exacerbation: Status: Acute (2) Acute respiratory failure with hypoxia and hypercapnia: Status: Acute (3) Gallbladder polyp: Status: Acute (4) GERD (gastroesophageal reflux disease): Problem details: Continue omeprazole 20 mg once daily Status: Acute (5) Cirrhosis of liver without ascites: Status: Acute (6) Herpes zoster: Status: Acute (7) Squamous cell carcinoma of lung: Status: Acute Assessment and Plan: 70-year-old male with known history of COPD presented with worsening shortness of breath , ABG on admission shows hypoxia with pCO2 101 and pH 7.3, patient was placed on BiPAP for few hours with improvement in pCO2 and admitted to telemetry Acute on chronic hypercapnic and hypoxic respiratory failure secondary to COPD exacerbation COVID PCR negative continue Duonebs Nebulizers ATC and PRN continue Solu-Medrol continue O2 supplement pulmonology consulted recommended Diamox and continue nebulizer will add azithromycin Will give a dose of Diamox DM II hold metformin continue sliding scale insulin monitor blood glucose HLD continue Statin Hx CAD troponin and BNP normal on admission Continue ASA, Isosorbide and BB GERD continue Omeprazole Anxiety continue Ativan and Escitalopram history of lung cancer follows Dr. Perdomo as outpatient history of cirrhosis SNELL follow-up GI as outpatient DVT PPx Heparin SC
[2020-05-28 12:14] LABS: Glucose, Whole Blood 192 mg/dL (60-115)
[2020-05-28 16:20] LABS: Glucose, Whole Blood 145 mg/dL (60-115)
[2020-05-28 20:11] LABS: Glucose, Whole Blood 254 mg/dL (60-115)
[2020-05-28] MEDS: Atorvastatin Calcium 80 MG TABLET PO (20:19)
[2020-05-29] VITALS (12 sets, daily range): BP systolic 91–126; BP diastolic 51–63; PULSE 70–110; RESP 16–20; TEMP 36.1–36.9; O2SAT 91–98
[2020-05-29] MEDS: 0.9 % Sodium Chloride Flush 3 ML SYRINGE IVFLUSH ×3 (00:24→15:58)
[2020-05-29] MEDS: Albuterol/Iprat 2.5/0.5MG 3 ML AMPUL.NEB INHALE ×4 (07:32→19:26)
[2020-05-29 07:39] LABS: Anion Gap 13 (12-20); Blood Urea Nitrogen 21 mg/dL (9-16); Calcium 9.1 mg/dL (8.4-10.2); Carbon Dioxide 35 mmol/L (22-29); Chloride 98 mmol/L (96-108); Creatinine Clr Calc Pharmacy 93.9; Estimated Glomerular Filt Rate > 60; Glucose Random 112 mg/dL (60-115); Potassium 4.2 mmol/L (3.3-5.1); Sodium 142 mmol/L (135-145)
[2020-05-29 08:54] LABS: Glucose, Whole Blood 172 mg/dL (60-115)
[2020-05-29 09:20] LABS: Pt Ventilation O2% 2 L
[2020-05-29 09:23] LABS: pH ABG 7.33 (7.35-7.45)
[2020-05-29 09:24] LABS: Base Excess ABG 8.1; HCO3 ABG 36 mmol/L (22-26); PO2 ABG 59 mmHg (83-108)
[2020-05-29 09:29] LABS: ABG PCO2 67 mmHg (32-45)
[2020-05-29] MEDS: Insulin Lispro 100 UNIT/ML 3 ML VIAL SUBCUT ×4 (09:37→21:34)
[2020-05-29] MEDS: Azithromycin 500 MG TABLET PO (09:38)
[2020-05-29] MEDS: Multivitamin TABLET 1 TAB PO (09:38)
[2020-05-29] MEDS: Escitalopram Oxalate 20 MG TABLET PO (09:38)
[2020-05-29] MEDS: Omeprazole 20 MG CAPSULE.DR PO (09:38)
[2020-05-29] MEDS: metFORMIN HCl 1,000 MG TABLET 1000 MG PO ×2 (09:39→21:34)
[2020-05-29 11:14] LABS: Glucose, Whole Blood 239 mg/dL (60-115)
--- NOTE | 2020-05-29 11:20 | P.PNIM_ITS ---
Subjective Subjective Date of Service: 05/29/20 Interval History: Patient seen and examined at bedside patient still reporting shortness of breath with some improvement Constitutional Constitutional: Reports weakness Cardiovascular Cardiovascular: Denies chest pain, Reports dyspnea and Reports dyspnea on exertion Respiratory Respiratory: Reports dyspnea and Reports dyspnea on exertion Gastrointestinal Gastrointestinal: Denies heartburn and Denies vomiting Musculoskeletal Musculoskeletal: Reports no additional musculoskeletal complaints Neurologic Neurologic: Reports Abnormal speech present, Denies focal weakness and Reports weakness Physical Exam Vital Signs: Vital Signs: Last Vital Signs Temp 97.4 F 05/29/20 11:09 Pulse 92 05/29/20 11:09 Resp 18 05/29/20 11:09 BP 121/63 05/29/20 11:09 Pulse Ox 91 L 05/29/20 11:09 Body Mass Index 31.3 Const: General: cooperative, no acute distress, alert and awake Orientation/consciousness: oriented to person and oriented to place Limitations: no limitations HENMT: Head: Yes normal to inspection, Yes normocephalic and Yes atraumatic Ears: external ears normal General nose exam: Normal external nose present Face and sinus: Yes normal facial exam Mouth: Normal oral and palatal mucosa present Throat: Yes posterior oropharynx normal Eyes: Periorbital: periorbital findings normal Eyelids: Yes eyelids normal Conjunctivae: conjunctivae normal Sclerae: sclerae normal Corneas: corneas normal Pupils: Equal, round and reactive pupils present EOM: EOMs intact bilaterally Direct Ophthalmoscopy: normal light reflex Neck: Neck: Yes full ROM, Yes no lymphadenopathy, Yes no meningeal signs, Yes trachea midline and Yes supple Chest: Chest palpation & inspection: normal inspection of the chest and normal palpation of entire chest wall Resp: Effort & Inspection: normal respiratory effort, able to speak in complete sentences and no respiratory distress Auscultation: rhonchi throughout, wheezes expiratory wheezes (Bilateral) and other (Poor bilateral air movement) Cardio: Rate: regular rate Rhythm: regular rhythm Heart sounds: S1 normal heart sound present, S2 normal heart sound present, no gallops, no murmurs and no rubs GI: Inspection: Yes normal to inspection Palpation (GI): Soft to palpation, nontender, no guarding, not rigid, No hepatosplenomegaly present and Other GI palpation findings present ( Nontender) Auscultation: normal bowel sounds : General: Yes no CVA tenderness Back/Spine/Pelvis: Back: no CVA tenderness Cervical Spine: normal cervical lordosis Thoracic/Lumbar Spine: thoracic and lumbar spine normal to inspection Skin: Lesions: no lesions Rashes: no rashes Wounds: no wounds Neuro: General: oriented to person, oriented to place and no meningeal signs Cranial nerves: Yes CN's II-XII intact bilaterally and Yes Equal, round and reactive pupils present Cognition (Neuro): normal cognition Speech: Abnormal speech present Motor exam (neuro): 5/5 motor strength present throughout Extrem: General: Yes normal to inspection, Yes full ROM, No clubbing, No cyanosis and Yes edema (Trace bilateral) Psych: Appearance: well kempt Mental Status: mental status grossly normal Speech and movement: Normal speech and movement present Affect: normal affect Attitude: cooperative Thought process: Normal thought process present Thought content: Normal thought content present Objective Data Current Medications Generic Name Dose Route Start Last Admin Trade Name Freq PRN Reason Stop Dose Admin Albuterol/Ipratropium 3 ml 05/27/20 14:32 05/29/20 11:17 Albuterol/Iprat 2.5/0.5mg 3 Ml Ampul.Neb INHALE 3 ml RQ4H WHILE AWAKE [facility] Administration Albuterol/Ipratropium 3 ml 05/27/20 14:32 Albuterol/Iprat 2.5/0.5mg 3 Ml Ampul.Neb INHALE RQ4H PRN Dyspnea Atorvastatin Calcium 80 mg 05/27/20 21:00 05/28/20 20:19 Atorvastatin Calcium 80 Mg Tablet PO 80 mg BEDTIME [facility] Administration Azithromycin 500 mg 05/28/20 08:00 05/29/20 09:38 Azithromycin 500 Mg Tablet PO 500 mg Q24H [facility] Administration Escitalopram Oxalate 20 mg 05/28/20 09:00 05/29/20 09:38 Escitalopram Oxalate 20 Mg Tablet PO 20 mg DAILY [facility] Administration Heparin Sodium (Porcine) 5,000 unit 05/27/20 16:00 05/29/20 05:46 Heparin Sodium,Porcine 5,000 Unit/Ml Vial SUBCUT Not Given Q12H [facility] Insulin Human Lispro 0 unit 05/27/20 16:30 05/29/20 09:37 Insulin Lispro 100 Unit/Ml 3 Ml Vial SUBCUT 2 unit QIDACHS [facility] Administration Protocol Isosorbide Mononitrate 30 mg 05/27/20 14:32 05/28/20 09:22 Isosorbide Mononitrate 30 Mg Tab.Er.24h PO 30 mg DAILY [facility] Administration Protocol Lorazepam 0.5 mg 05/27/20 14:32 05/28/20 00:15 Lorazepam 0.5 Mg Tablet PO 0.5 mg DAILY PRN Administration anxiety Metformin HCl 1,000 mg 05/27/20 21:00 05/29/20 09:39 Metformin Hcl 1,000 Mg Tablet PO 1,000 mg BID [facility] Administration Methylprednisolone Sodium Succinate 40 mg 05/27/20 15:00 05/29/20 05:44 Methylprednisolone Sod Succ/Pf 40 Mg/Ml Vial IVPUSH 40 mg Q12H [facility] Administration Metoprolol Tartrate 25 mg 05/27/20 21:00 05/28/20 20:19 Metoprolol Tartrate 25 Mg Tablet PO 25 mg BID [facility] Administration Protocol Multivitamins/Vitamin C 1 tab 05/28/20 09:00 05/29/20 09:38 Multivitamin Tablet PO 1 tab DAILY [facility] Administration Omeprazole 20 mg 05/28/20 09:00 05/29/20 09:38 Omeprazole 20 Mg Capsule.Dr PO 20 mg DAILY [facility] Administration Pharmacy Consult 1 each 05/27/20 04:57 Consult Rx Perform Med Rec MISCELLANE ONCE PRN Consult order Sodium Chloride 3 ml 05/27/20 16:00 05/29/20 09:37 0.9 % Sodium Chloride Flush 3 Ml Syringe IVFLUSH 3 ml QSHIFT [facility] Administration Labs CBC & Chem 7: 05/27/20 03:23 05/29/20 05:51 Assessment and Plan (1) COPD exacerbation: Status: Acute (2) Acute respiratory failure with hypoxia and hypercapnia: Status: Acute (3) Gallbladder polyp: Status: Acute (4) GERD (gastroesophageal reflux disease): Problem details: Continue omeprazole 20 mg once daily Status: Acute (5) Cirrhosis of liver without ascites: Status: Acute (6) Herpes zoster: Status: Acute (7) Squamous cell carcinoma of lung: Status: Acute Assessment and Plan: 70-year-old male with known history of COPD presented with worsening shortness of breath , ABG on admission shows hypoxia with pCO2 101 and pH 7.3, patient was placed on BiPAP for few hours with improvement in pCO2 and admitted to telemetry Acute on chronic hypercapnic and hypoxic respiratory failure secondary to COPD exacerbation improving COVID PCR negative continue Duonebs Nebulizers ATC and PRN continue Solu-Medrol continue O2 supplement pulmonology consulted recommended Diamox and continue nebulizer continue azithromycin received Diamox DM II hold metformin continue sliding scale insulin monitor blood glucose HLD continue Statin Hx CAD troponin and BNP normal on admission Continue ASA, Isosorbide and BB GERD continue Omeprazole Anxiety continue Ativan and Escitalopram history of lung cancer follows Dr. Perdomo as outpatient history of cirrhosis SNELL follow-up GI as outpatient DVT PPx Heparin SC
[2020-05-29] MEDS: Isosorbide Mononitrate 30 MG TAB.ER.24H PO (12:05)
[2020-05-29] MEDS: Metoprolol Tartrate 25 MG TABLET PO ×2 (12:06→21:34)
[2020-05-29] MEDS: Docusate Sodium 100 MG CAPSULE PO (13:51)
[2020-05-29 16:48] LABS: Glucose, Whole Blood 176 mg/dL (60-115)
[2020-05-29 20:38] LABS: Glucose, Whole Blood 226 mg/dL (60-115)
[2020-05-29] MEDS: LORazepam 0.5 MG TABLET PO (21:39)
--- NOTE | 2020-05-29 21:39 | PC.NURSE ---
pt states he is having bilateral tremors to shoulders. He denies pain, states the tremors stop when he moves his arms but then they return when at rest. Pt was medicated with ativan. will reassess.
[2020-05-29] MEDS: Atorvastatin Calcium 80 MG TABLET PO (21:42)
[2020-05-30] VITALS (8 sets, daily range): BP systolic 101–140; BP diastolic 56–70; PULSE 75–90; RESP 16–20; TEMP 36.3–37.1; O2SAT 91–95; BMI 31.3
[2020-05-30] MEDS: 0.9 % Sodium Chloride Flush 3 ML SYRINGE IVFLUSH ×3 (00:12→15:45)
[2020-05-30] MEDS: Albuterol/Iprat 2.5/0.5MG 3 ML AMPUL.NEB INHALE ×3 (07:32→20:03)
[2020-05-30 07:33] LABS: Glucose, Whole Blood 184 mg/dL (60-115)
[2020-05-30] MEDS: Insulin Lispro 100 UNIT/ML 3 ML VIAL SUBCUT ×3 (07:46→20:32)
[2020-05-30] MEDS: Omeprazole 20 MG CAPSULE.DR PO (07:46)
[2020-05-30] MEDS: Azithromycin 500 MG TABLET PO (07:46)
[2020-05-30] MEDS: Metoprolol Tartrate 25 MG TABLET PO ×2 (07:46→20:31)
[2020-05-30] MEDS: Isosorbide Mononitrate 30 MG TAB.ER.24H PO (07:47)
[2020-05-30] MEDS: Docusate Sodium 100 MG CAPSULE PO (07:47)
[2020-05-30] MEDS: Escitalopram Oxalate 20 MG TABLET PO (07:47)
[2020-05-30] MEDS: Multivitamin TABLET 1 TAB PO (07:47)
[2020-05-30] MEDS: metFORMIN HCl 1,000 MG TABLET 1000 MG PO ×2 (07:47→20:31)
[2020-05-30 08:00] LABS: Anion Gap 11 (12-20); Blood Urea Nitrogen 21 mg/dL (9-16); Carbon Dioxide 37 mmol/L (22-29); Chloride 97 mmol/L (96-108); Creatinine Clr Calc Pharmacy 93.9; Estimated Glomerular Filt Rate > 60; Glucose Random 154 mg/dL (60-115); Potassium 4.2 mmol/L (3.3-5.1); Sodium 141 mmol/L (135-145)
--- NOTE | 2020-05-30 10:12 | PM.PNPUL ---
Subjective Subjective Date of Service: 05/30/20 Principal diagnosis: copd exarbation /resp. failure Interval history: This 70 years old gentleman who was admitted with acute exacerbation of COPD, and acute on chronic respiratory failure, has improved in the last 2 days. His main issue is feeling of some mucus deep down which he has hard time to cough up. He is sitting by the bedside with the O2 3 L/minute and appears comfortable. He is being treated with IV Solu-Medrol, p.o. azithromycin, DuoNeb updraft, and oxygen. Mental status is the improved. Objective Data Labs CBC & Chem 7: 05/27/20 03:23 05/30/20 05:43 Labs: Laboratory Results - last 24 hr 05/29/20 05/29/20 05/29/20 11:04 16:36 20:25 Sodium Potassium Chloride Carbon Dioxide Anion Gap BUN Creatinine Estim Creat Clear Calc Estimated GFR POC Glucose 239 H 176 H 226 H Random Glucose Calcium 05/30/20 05/30/20 05:43 07:27 Sodium 141 Potassium 4.2 Chloride 97 Carbon Dioxide 37 H Anion Gap 11 L BUN 21 H Creatinine 0.76 Estim Creat Clear Calc 93.9 Estimated GFR > 60 POC Glucose 184 H Random Glucose 154 H D Calcium 9.0 Review of Systems Constitutional: Reports lethargy and Reports weakness Reports nasal congestion (mild ) Cardiovascular: Reports dyspnea Respiratory: Reports cough, Reports dyspnea and Denies wheezing Reports weakness Allergic/Immunologic: Denies wheezing Physical Exam Vital Signs: Vital Signs: Last Vital Signs Temp 98 F 05/30/20 07:33 Pulse 82 05/30/20 07:33 Resp 19 05/30/20 07:33 BP 111/66 05/30/20 07:33 Pulse Ox 95 05/30/20 07:33 Body Mass Index 31.3 Const: Other: Slightly short of breath but not in distress. General: comfortable, no acute distress, alert and awake Orientation/consciousness: patient oriented x3 HENMT: Head: Yes normal to inspection General nose exam: No nasal polyps present and No nasal discharge present Face and sinus: Yes sinuses nontender Mouth: oropharynx normal Throat: Yes posterior oropharynx normal Eyes: General: appearance normal, both eyes and all related structures Neck: Neck: Yes normal visual inspection, Yes no lymphadenopathy, Yes trachea midline and Yes no JVD Thyroid: Thyroid normal Chest: Chest palpation & inspection: normal inspection of the chest and normal palpation of entire chest wall Resp: Effort & Inspection: prolonged expiratory phase Auscultation: no rhonchi, no wheezes and diminished lung sounds Cardio: Palpation: normal PMI Rate: regular rate Rhythm: regular rhythm Heart sounds: no gallops and no murmurs GI: Palpation (GI): Soft to palpation, nontender, No hepatosplenomegaly present and no masses Auscultation: normal bowel sounds Back/Spine/Pelvis: Thoracic/Lumbar Spine: thoracic and lumbar spine normal to inspection Skin: General skin exam: no rashes or lesions noted Neuro: General: patient oriented x3 and no focal motor deficits Cranial nerves: Yes CN's II-XII intact bilaterally Extrem: General: Yes normal to inspection, Yes no clubbing, cyanosis or edema, Yes no calf tenderness and No venous stasis dermatitis Psych: Appearance: grossly normal Speech and movement: Normal speech and movement present Assessment and Plan Assessment and plan (1) COPD exacerbation: Problem details: Is a known case of advanced chronic obstructive pulmonary disease. Acute exacerbation is slowly improving. He is generally weak and short of breath which seems to be, almost at his baseline Recommendation: I think his IV Solu-Medrol can be changed over to prednisone is 40 mg a day, with this slow taper by reducing 10 mg every week. Complete the course of azithromycin x5 days. Continue DuoNeb updrafts q.6 hours while awake and albuterol updraft Q 4-6 hours p.r.n.. Status: Acute (2) Acute respiratory failure with hypoxia and hypercapnia: Problem details: Acute on chronic respiratory failure with hypoxemia and hypercapnia, now improved. Is current pCO2 is 67 which is at his baseline. O2 requirement is also at baseline with 2-3 L/minute. We should avoid over oxygenation in his case. No need of Acetazolamide as he is already acidemia. He is instructed to do pursed lip breathing exercises as much as possible. Status: Acute Time Spent With Patient Time: Total time spent is greater than 50% in coordination of care (as documented) at patient's floor/unit and/or counseling patient: Time with patient: 15 - 24 minutes
[2020-05-30 11:09] LABS: Glucose, Whole Blood 266 mg/dL (60-115)
--- NOTE | 2020-05-30 11:51 | MHC.CM.PN ---
per rounds dc plan is home no servceis dc expected for
--- NOTE | 2020-05-30 13:34 | P.PNIM_ITS ---
Subjective Subjective Date of Service: 05/30/20 Interval History: Patient seen and examined at bedside patient reported shortness of breath improving Constitutional Constitutional: Reports weakness Cardiovascular Cardiovascular: Denies chest pain, Reports dyspnea and Reports dyspnea on exertion Respiratory Respiratory: Reports dyspnea and Reports dyspnea on exertion Gastrointestinal Gastrointestinal: Denies heartburn and Denies vomiting Musculoskeletal Musculoskeletal: Reports no additional musculoskeletal complaints Neurologic Neurologic: Reports Abnormal speech present, Denies focal weakness and Reports weakness Physical Exam Vital Signs: Vital Signs: Last Vital Signs Temp 98 F 05/30/20 10:50 Pulse 84 05/30/20 10:50 Resp 20 05/30/20 10:50 BP 140/68 H 05/30/20 10:50 Pulse Ox 95 05/30/20 10:50 Body Mass Index 31.3 Const: General: cooperative, no acute distress, alert and awake Orientation/consciousness: oriented to person and oriented to place Limitations: no limitations HENMT: Head: Yes normal to inspection, Yes normocephalic and Yes atraumatic Ears: external ears normal General nose exam: Normal external nose present Face and sinus: Yes normal facial exam Mouth: Normal oral and palatal mucosa present Throat: Yes posterior oropharynx normal Eyes: Periorbital: periorbital findings normal Eyelids: Yes eyelids normal Conjunctivae: conjunctivae normal Sclerae: sclerae normal Corneas: corneas normal Pupils: Equal, round and reactive pupils present EOM: EOMs intact bilaterally Direct Ophthalmoscopy: normal light reflex Neck: Neck: Yes full ROM, Yes no lymphadenopathy, Yes no meningeal signs, Yes trachea midline and Yes supple Chest: Chest palpation & inspection: normal inspection of the chest and normal palpation of entire chest wall Resp: Effort & Inspection: normal respiratory effort, able to speak in complete sentences and no respiratory distress Auscultation: rhonchi throughout, wheezes expiratory wheezes (Bilateral) and other (Poor bilateral air movement) Cardio: Rate: regular rate Rhythm: regular rhythm Heart sounds: S1 normal heart sound present, S2 normal heart sound present, no gallops, no murmurs and no rubs GI: Inspection: Yes normal to inspection Palpation (GI): Soft to palpation, nontender, no guarding, not rigid, No hepatosplenomegaly present and Other GI palpation findings present ( Nontender) Auscultation: normal bowel sounds : General: Yes no CVA tenderness Back/Spine/Pelvis: Back: no CVA tenderness Cervical Spine: normal cervical lordosis Thoracic/Lumbar Spine: thoracic and lumbar spine normal to inspection Skin: Lesions: no lesions Rashes: no rashes Wounds: no wounds Neuro: General: oriented to person, oriented to place and no meningeal signs Cranial nerves: Yes CN's II-XII intact bilaterally and Yes Equal, round and reactive pupils present Cognition (Neuro): normal cognition Speech: Abnormal speech present Motor exam (neuro): 5/5 motor strength present throughout Extrem: General: Yes normal to inspection, Yes full ROM, No clubbing, No cyanosis and Yes edema (Trace bilateral) Psych: Appearance: well kempt Mental Status: mental status grossly normal Speech and movement: Normal speech and movement present Affect: normal affect Attitude: cooperative Thought process: Normal thought process present Thought content: Normal thought content present Objective Data Current Medications Generic Name Dose Route Start Last Admin Trade Name Freq PRN Reason Stop Dose Admin Albuterol/Ipratropium 3 ml 05/27/20 14:32 05/30/20 11:21 Albuterol/Iprat 2.5/0.5mg 3 Ml Ampul.Neb INHALE Not Given RQ4H WHILE AWAKE DUTCH Albuterol/Ipratropium 3 ml 05/27/20 14:32 Albuterol/Iprat 2.5/0.5mg 3 Ml Ampul.Neb INHALE RQ4H PRN Dyspnea Atorvastatin Calcium 80 mg 05/27/20 21:00 05/29/20 21:42 Atorvastatin Calcium 80 Mg Tablet PO 80 mg BEDTIME DUTCH Administration Azithromycin 500 mg 05/28/20 08:00 05/30/20 07:46 Azithromycin 500 Mg Tablet PO 500 mg Q24H DUTCH Administration Docusate Sodium 100 mg 05/29/20 13:00 05/30/20 07:47 Docusate Sodium 100 Mg Capsule PO 100 mg DAILY DUTCH Administration Escitalopram Oxalate 20 mg 05/28/20 09:00 05/30/20 07:47 Escitalopram Oxalate 20 Mg Tablet PO 20 mg DAILY DUTCH Administration Heparin Sodium (Porcine) 5,000 unit 05/27/20 16:00 05/30/20 03:15 Heparin Sodium,Porcine 5,000 Unit/Ml Vial SUBCUT Not Given Q12H DUTCH Insulin Human Lispro 0 unit 05/27/20 16:30 05/30/20 11:38 Insulin Lispro 100 Unit/Ml 3 Ml Vial SUBCUT 6 unit QIDACHS DUTCH Administration Protocol Isosorbide Mononitrate 30 mg 05/27/20 14:32 05/30/20 07:47 Isosorbide Mononitrate 30 Mg Tab.Er.24h PO 30 mg DAILY DUTCH Administration Protocol Lorazepam 0.5 mg 05/27/20 14:32 05/29/20 21:39 Lorazepam 0.5 Mg Tablet PO 0.5 mg DAILY PRN Administration anxiety Metformin HCl 1,000 mg 05/27/20 21:00 05/30/20 07:47 Metformin Hcl 1,000 Mg Tablet PO 1,000 mg BID DUTCH Administration Methylprednisolone Sodium Succinate 40 mg 05/27/20 15:00 05/30/20 03:13 Methylprednisolone Sod Succ/Pf 40 Mg/Ml Vial IVPUSH 40 mg Q12H DUTCH Administration Metoprolol Tartrate 25 mg 05/27/20 21:00 05/30/20 07:46 Metoprolol Tartrate 25 Mg Tablet PO 25 mg BID DUTCH Administration Protocol Multivitamins/Vitamin C 1 tab 05/28/20 09:00 05/30/20 07:47 Multivitamin Tablet PO 1 tab DAILY DUTCH Administration Omeprazole 20 mg 05/28/20 09:00 05/30/20 07:46 Omeprazole 20 Mg Capsule. PO 20 mg DAILY [facility] Administration Pharmacy Consult 1 each 05/27/20 04:57 Consult Rx Perform Med Rec MISCELLANE ONCE PRN Consult order Sodium Chloride 3 ml 05/27/20 16:00 05/30/20 07:46 0.9 % Sodium Chloride Flush 3 Ml Syringe IVFLUSH 3 ml QSHIFT [facility] Administration Labs CBC & Chem 7: 05/27/20 03:23 05/30/20 05:43 Assessment and Plan (1) COPD exacerbation: Problem details: Is Status: Acute (2) Acute respiratory failure with hypoxia and hypercapnia: Status: Acute Assessment and Plan: 70-year-old male with known history of COPD presented with worsening shortness of breath , ABG on admission shows hypoxia with pCO2 101 and pH 7.3, patient was placed on BiPAP for few hours with improvement in pCO2 and admitted to telemetry Acute on chronic hypercapnic and hypoxic respiratory failure secondary to COPD exacerbation improving COVID PCR negative continue Duonebs Nebulizers ATC and PRN continue Solu-Medrol continue O2 supplement pulmonology consulted recommended Diamox and continue nebulizer continue azithromycin received 1 dose of Diamox DM II hold metformin continue sliding scale insulin monitor blood glucose HLD continue Statin Hx CAD troponin and BNP normal on admission Continue ASA, Isosorbide and BB GERD continue Omeprazole Anxiety continue Ativan and Escitalopram history of lung cancer follows Dr. Perdomo as outpatient history of cirrhosis SNELL follow-up GI as outpatient DVT PPx Heparin SC
[2020-05-30 16:17] LABS: Glucose, Whole Blood 110 mg/dL (60-115)
[2020-05-30 19:49] LABS: Glucose, Whole Blood 226 mg/dL (60-115)
[2020-05-30] MEDS: Atorvastatin Calcium 80 MG TABLET PO (20:31)
[2020-05-30] MEDS: LORazepam 0.5 MG TABLET PO (20:37)
[2020-05-31] MEDS: 0.9 % Sodium Chloride Flush 3 ML SYRINGE IVFLUSH ×2 (01:19→09:03)
[2020-05-31 02:29] VITALS: PULSE 80; O2SAT 92
[2020-05-31] MEDS: Albuterol/Iprat 2.5/0.5MG 3 ML AMPUL.NEB INHALE ×3 (02:29→11:21)
[2020-05-31 03:42] VITALS: BP 137/63; PULSE 90; RESP 18; TEMP 36.3; O2SAT 94
[2020-05-31 06:45] LABS: Anion Gap 12 (12-20); Blood Urea Nitrogen 20 mg/dL (9-16); Calcium 8.9 mg/dL (8.4-10.2); Carbon Dioxide 39 mmol/L (22-29); Chloride 95 mmol/L (96-108); Creatinine Clr Calc Pharmacy 93.9; Estimated Glomerular Filt Rate > 60; Glucose Random 127 mg/dL (60-115); Potassium 3.8 mmol/L (3.3-5.1); Sodium 142 mmol/L (135-145)
[2020-05-31 06:57] VITALS: BP 139/64; PULSE 86; RESP 18; TEMP 36.1; O2SAT 92
[2020-05-31 07:10] LABS: Glucose, Whole Blood 120 mg/dL (60-115)
[2020-05-31 09:00] VITALS: BP 139/64; PULSE 86
[2020-05-31] MEDS: metFORMIN HCl 1,000 MG TABLET 1000 MG PO (09:00)
[2020-05-31] MEDS: Metoprolol Tartrate 25 MG TABLET PO (09:00)
[2020-05-31 09:02] VITALS: BP 139/64; PULSE 86
[2020-05-31] MEDS: Azithromycin 500 MG TABLET PO (09:02)
[2020-05-31] MEDS: Omeprazole 20 MG CAPSULE.DR PO (09:02)
[2020-05-31] MEDS: Multivitamin TABLET 1 TAB PO (09:02)
[2020-05-31] MEDS: Docusate Sodium 100 MG CAPSULE PO (09:02)
[2020-05-31] MEDS: Isosorbide Mononitrate 30 MG TAB.ER.24H PO (09:02)
[2020-05-31] MEDS: Escitalopram Oxalate 20 MG TABLET PO (09:03)
[2020-05-31 10:57] VITALS: BP 126/64; PULSE 84; RESP 20; TEMP 36.6; O2SAT 92
--- NOTE | 2020-05-31 11:09 | P.DS_ITS ---
DS: Providers Provider Date of Service: 06/01/20 Date of admission: 05/27/20 10:35 Primary care physician: Unknown Physician Consults: 05/27/20 14:32 Consult to Pulmonology Routine Consulting Provider: Polo Jones Reason for consultation: hypercaneic respiratory failure DS: Diagnosis Discharge Diagnosis (1) COPD exacerbation: Status: Acute Problem details: Is (2) Acute respiratory failure with hypoxia and hypercapnia: Status: Acute DS: Medications Discharge Medications Home Medications: Home Medications Medication Instructions Recorded Confirmed albuterol sulfate 90 mcg/actuation 2 puff PO Q4-6H PRN 01/14/20 05/27/20 aerosol inhaler ipratropium 0.5 mg-albuterol 3 mg ml INHALATION Q6H 01/14/20 05/26/20 (2.5 mg base)/3 mL nebulization soln isosorbide mononitrate 30 mg 30 mg PO DAILY 01/14/20 05/27/20 tablet,extended release 24 hr metformin 1,000 mg tablet 1,000 mg PO BID 01/14/20 05/27/20 metoprolol tartrate 25 mg tablet 25 mg PO BID 01/14/20 05/27/20 omeprazole 20 mg capsule,delayed 20 mg PO DAILY 01/14/20 05/27/20 release Previous Rx's Medication Instructions Recorded atorvastatin 80 mg tablet 80 mg PO BEDTIME #90 tab 03/25/20 glipizide 5 mg tablet 5 mg PO BID #180 tab 03/25/20 multivitamin 1 tab PO DAILY #90 tab 05/13/20 lorazepam 0.5 mg tablet 0.5 mg PO DAILY PRN #30 tab 05/17/20 escitalopram oxalate 20 mg tablet 20 mg PO DAILY #90 tab 05/19/20 azithromycin 500 mg PO Q24H #5 tab 05/31/20 prednisone 20 mg PO DAILY #50 tab 05/31/20 DS: Summary Hospital Course Hospital Course: HPI 70-year-old male with history of COPD and lung cancer presented with worsening shortness of breath for last 3- 4 days, patient reported he quit smoking 10 15 years back, patient was noticing more shortness of breath for last 3 -4 days was getting worse with activity, patient also reported he was not able to sleep flat at night , patient tried nebulizer at home with no improvement, patient denies any fever chills cough or sick contacts, COVID PCR was negative, in the ER ABG shows hypercapnia with pCO2 of 100, patient was awake alert, patient was placed on BiPAP for few hours with improvement in pCO2 and inpatient admission was requested, patient has known history of lung cancer and follows Dr. Perdomo [facility] course 70-year-old male admitted with COPD exacerbation and acute on chronic hypercapnic and hypoxic respiratory failure, patient was initially placed on BiPAP with improvement in breathing and weaned down to 3 L of oxygen, patient was started on Solu-Medrol nebulizer treatment and azithromycin, pulmonology was consulted , patient received Diamox for metabolic alkalosis, patient's breathing improved slowly, pCO2 was improving, patient was stable, patient was cleared by pulmonology for discharge, patient was discharged home on tapering dose of prednisone and azithromycin, patient was continued on home oxygen supplementation, patient will follow up pulmonology as outpatient. Time Spent with Patient Time attestation: Total time spent providing and/or coordinating discharge services: Discharge coordination time: Greater than 30 minutes Physical Exam Vital Signs: Vital Signs: Last Vital Signs Temp 98 F 05/31/20 10:57 Pulse 84 05/31/20 10:57 Resp 20 05/31/20 10:57 BP 126/64 05/31/20 10:57 Pulse Ox 92 05/31/20 10:57 Body Mass Index 31.3 DS: Data Data Completed and Pending Labs on day of discharge: Laboratory Results - last 24 hr 05/30/20 05/30/20 05/30/20 10:49 16:11 19:34 Sodium Potassium Chloride Carbon Dioxide Anion Gap BUN Creatinine Estim Creat Clear Calc Estimated GFR POC Glucose 266 H 110 226 H Random Glucose Calcium 05/31/20 05/31/20 05:28 06:57 Sodium 142 Potassium 3.8 Chloride 95 L Carbon Dioxide 39 H Anion Gap 12 BUN 20 H Creatinine 0.76 Estim Creat Clear Calc 93.9 Estimated GFR > 60 POC Glucose 120 H Random Glucose 127 H Calcium 8.9 Discharge Plan Discharge Anticipated Discharge Date/Time: 05/31/20 10:59 Patient Disposition: Home Health Service Referrals: [facility] [Outside] Anne-Marie Muro MD [Physician] - 1 Week (06/13/20 8:45am. Please call and reschedule if you can't keep this appointment.) Discharge Medications: New azithromycin 500 mg Tablet 500 mg PO Q24H Qty: 5 RF: 0 prednisone 20 mg tablet 20 mg PO DAILY Qty: 50 RF: 0 Continued atorvastatin 80 mg tablet 80 mg PO BEDTIME Qty: 90 RF: 1 glipizide 5 mg tablet 5 mg PO BID Qty: 180 RF: 1 multivitamin [Daily-Kathleen] Tablet 1 tab PO DAILY Qty: 90 RF: 3 lorazepam 0.5 mg tablet 0.5 mg PO DAILY PRN (Reason: anxiety) Qty: 30 RF: 0 escitalopram oxalate 20 mg tablet 20 mg PO DAILY Qty: 90 RF: 1 omeprazole 20 mg capsule,delayed release(DR/EC) 20 mg PO DAILY RF: 0 metoprolol tartrate 25 mg tablet 25 mg PO BID RF: 0 isosorbide mononitrate 30 mg tablet extended release 24 hr 30 mg PO DAILY RF: 0 metformin 1,000 mg tablet 1,000 mg PO BID RF: 0 albuterol sulfate 90 mcg/actuation HFA aerosol inhaler 2 puff PO Q4-6H PRN (Reason: Shortness Of Breath Or Wheezing) RF: 0 ipratropium-albuterol 0.5 mg-3 mg(2.5 mg base)/3 mL solution for nebulization inhalation Q6H RF: 0 Discharge Orders: Discharge Order (Routine); Ordered 05/31/20 Ordered By: Leo Antonio Diet: advance to usual diet Activity on Discharge: As tolerated Stand Alone Forms: Patient Portal Discharge page Care Plan Goals: prevent exacerbation Health Concerns: copd Plan of Treatment: taper steroids Discharge Date/Time: 05/31/20 14:46
[2020-05-31 11:28] LABS: Glucose, Whole Blood 214 mg/dL (60-115)
[2020-05-31] MEDS: Insulin Lispro 100 UNIT/ML 3 ML VIAL SUBCUT (11:58)
== END 2020-05-31 14:46 | disposition home health service (06) | DRG 190 ==
LOC: HO.ED 03:34 → HO.EDOVER 10:36 → HO.IMC 19:29
PROVIDERS: Emergency Medicine; Admitting Provider Internal Medicine; Emergency Provider Emergency Medicine Emergency Medical Services; PCP Internal Medicine; Visit Provider Internal Medicine
DX: J44.1 Chronic obstructive pulmonary disease with (acute) exacerbation (principal); J96.22 Acute and chronic respiratory failure with hypercapnia; J96.21 Acute and chronic respiratory failure with hypoxia; E78.5 Hyperlipidemia, unspecified; B02.9 Zoster without complications; K21.9 Gastro-esophageal reflux disease without esophagitis; K74.60 Unspecified cirrhosis of liver; F41.9 Anxiety disorder, unspecified; I25.10 Atherosclerotic heart disease of native coronary artery without angina pectoris; K75.81 Nonalcoholic steatohepatitis (NASH); K82.4 Cholesterolosis of gallbladder; E11.9 Type 2 diabetes mellitus without complications; Z20.822 Contact with and (suspected) exposure to COVID-19; Z87.891 Personal history of nicotine dependence; Z85.118 Personal history of other malignant neoplasm of bronchus and lung; Z99.81 Dependence on supplemental oxygen; Z79.52 Long term (current) use of systemic steroids; Z79.84 Long term (current) use of oral hypoglycemic drugs; Z79.899 Other long term (current) drug therapy
CPT/HCPCS: 0241U; 36415; 36600; 71045; 80048; 80076; 81003; 82803; 82947; 83880; 84484; 85025; 93005; 94660; 96365; 96375; 99285; 99291; J2920; J2930

== ENCOUNTER → 2020-08-11 14:00 | Outpatient (BNVA) | payer MEDICARE, SELFPAY | PROVIDERS: PCP Internal Medicine; Referring Provider Internal Medicine; Visit Provider Internal Medicine Gastroenterology | DX: K82.4 Cholesterolosis of gallbladder (principal); K21.9 Gastro-esophageal reflux disease without esophagitis; K74.60 Unspecified cirrhosis of liver | CPT/HCPCS: 99212 ==

== ENCOUNTER 2020-08-16 08:09 | Outpatient (REF) | payer MEDICARE, SELFPAY ==
[2020-08-16 11:21] LABS: MANUAL DIFF FLAG NO
[2020-08-16 11:29] LABS: Basophils Absolute Auto 0.1 X10*3/uL (0.0-0.2); Eosinophils Absolute Auto 0.4 X10*3/uL (0.0-0.4); Eosinophils Percent Auto 8.8 % (0-4); Hematocrit 40.8 % (42-52); Hemoglobin 12.6 g/dl (14.0-18.0); Imm Gran Abs Auto 0.02 X10*3/uL (0.00-0.03); Imm Gran Pct Auto 0.4 % (0.0-0.4); Lymphocytes Absolute Auto 1.1 X10*3/uL (1.2-4.9); Lymphocytes Percent Auto 22.6 % (20-40); Mean Corpuscular HGB Conc 30.9 g/dl (31.0-36.0); Mean Corpuscular Hemoglobin 30.3 pg (27.0-33.0); Mean Corpuscular Volume 98.1 fL (80-98); Mean Platelet Volume 10.7 fL (9.4-12.4); Monocytes Absolute Auto 0.5 X10*3/uL (0.1-1.2); Monocytes Percent Auto 10.4 % (2-11); Neutrophils Absolute Auto 2.8 X10*3/uL (2.0-8.3); Neutrophils Percent Auto 56.8 % (45-73); Platelet Count 200 X10*3/uL (160-400); Red Blood Count 4.16 X10*6/uL (4.60-5.80); Red Cell Distribution Width 12.7 % (11.0-16.0)
[2020-08-16 11:41] LABS: Alanine Aminotransferase 19 U/L (0-40); Aspartate Amino Transferase 16 U/L (5-37); Cholesterol 223 mg/dL; HDL Cholesterol 41 mg/dL; LDL Cholesterol Calculated 156 mg/dl; Triglycerides 134 mg/dL
[2020-08-16 11:42] LABS: Estimated Average Glucose 169 mg/dL; Hemoglobin A1c % 7.5 %
[2020-08-16 12:10] LABS: Vitamin D 25-OH Total 22.6 ng/mL (>30)
[2020-08-16 12:16] LABS: Creatinine Urine 112.26 mg/dL; Microalbum/Creatinine Ratio Ur 15.1 ug/mg cr
[2020-08-16 13:03] LABS: PSA,Total (Free>4and<10) 0.26 ng/mL (0.00-4.00)
== END 2020-08-16 08:10 | disposition home or self-care (01) ==
LOC: HO.HMGCLDS 08:09
PROVIDERS: PCP Internal Medicine; Visit Provider Internal Medicine
DX: E11.65 Type 2 diabetes mellitus with hyperglycemia (principal); E78.5 Hyperlipidemia, unspecified; R32 Unspecified urinary incontinence; Z12.5 Encounter for screening for malignant neoplasm of prostate
CPT/HCPCS: 36415; 80061; 82043; 82306; 83036; 84153; 84450; 84460; 85025

== ENCOUNTER 2020-08-26 07:28 | Outpatient (REF) | payer MEDICARE, SELFPAY ==
--- NOTE | ~2020-08-26 | US_ITS ---
EXAMINATION: US ABDOMEN COMPLETE CLINICAL INFORMATION: Unspecified cirrhosis. COMPARISON: MRI abdomen without contrast dated 01/05/2020. Ultrasound abdomen complete dated 12/31/2019 and 03/20/2019. CT abdomen and pelvis without contrast dated 10/05/2017. X-ray abdomen dated 03/13/2016 and 05/05/2009. TECHNIQUE: Real-time imaging of the abdominal viscera. FINDINGS: PANCREAS: The pancreas is obscured by overlying gas. ABDOMINAL AORTA: The proximal, mid, and distal segments are normal in caliber. INFERIOR VENA CAVA: Visualized portions are normal. LIVER: Normal. The liver is normal in size. The liver contour is normal. Parenchymal echogenicity is normal. No focal hepatic lesion. There is no intrahepatic biliary duct dilatation seen. GALLBLADDER: There is an echogenic mobile mass measuring 4.8 x 1.4 x 1.9 cm, question polyp versus large sludge or mass. The gallbladder is physiologically distended without evidence of stones or pericholecystic fluid. There is mild gallbladder wall thickness measuring 0.45 cm. COMMON BILE DUCT: CBD is mildly dilated measuring 1.1 cm in diameter. RIGHT KIDNEY: Normal. No hydronephrosis. No renal calculi or focal parenchymal lesions. The kidney measures 12.6 cm in maximum dimension. LEFT KIDNEY: Normal. No hydronephrosis. No renal calculi or focal parenchymal lesions. The kidney measures 12.2 cm in maximum dimension. SPLEEN: Normal. The spleen measures 10.0 cm in maximum dimension. FREE FLUID: None. US/US abdomen complete IMPRESSION: Echogenic mobile mass measuring 4.8 x 1.4 x 1.9 cm. Large sludge, polyp versus mass. Mild gallbladder wall thickening measuring 0.45 cm. Mild dilated CBD measuring 1.1 cm.
== END 2020-08-26 07:29 | disposition home or self-care (01) ==
LOC: HO.US 07:28
PROVIDERS: Visit Provider Internal Medicine Gastroenterology
DX: K74.60 Unspecified cirrhosis of liver (principal); K82.4 Cholesterolosis of gallbladder
CPT/HCPCS: 76700

== ENCOUNTER → 2020-12-15 13:30 | Outpatient (BNVA) | payer MEDICARE, SELFPAY | PROVIDERS: Visit Provider Internal Medicine Gastroenterology | DX: K82.4 Cholesterolosis of gallbladder (principal); K21.9 Gastro-esophageal reflux disease without esophagitis; K74.60 Unspecified cirrhosis of liver; E11.65 Type 2 diabetes mellitus with hyperglycemia | CPT/HCPCS: Q3014 ==

== ENCOUNTER 2021-02-15 13:26 | Outpatient (REF) | payer MEDICARE, SELFPAY ==
--- NOTE | ~2021-02-15 | XR_ITS ---
EXAMINATION: XR CHEST CLINICAL INFORMATION: COPD COMPARISON: Previous chest x-ray May [address] scans most recent October 2019 TECHNIQUE: 2 views of the chest were obtained. FINDINGS: The cardiac and mediastinal contours are stable. There is volume loss to the left upper lobe. There is a atelectasis/consolidation of the left upper lobe and pleural thickening that appears unchanged. The lungs are otherwise clear. There is no pleural effusion or pneumothorax. There are degenerative changes of the spine. There is curvature of the proximal thoracic spine to the left. There is slight loss of height of the T12 vertebral body suggestive of mild compression fracture that appears unchanged. XR/XR chest 2V IMPRESSION: Stable volume loss to the left upper lobe and pleural thickening from previous exams.
== END 2021-02-15 13:27 | disposition home or self-care (01) ==
LOC: HO.HMGCX 13:26
PROVIDERS: PCP Internal Medicine; Visit Provider Physician Assistant Medical
DX: Z13.89 Encounter for screening for other disorder (principal)
CPT/HCPCS: 71046

== ENCOUNTER 2021-02-15 15:26 | Outpatient (REF) | payer MEDICARE, SELFPAY ==
[2021-02-15 17:35] LABS: Influenza A PCR NEGATIVE (Negative); Influenza B PCR NEGATIVE (Negative); Resp Syncy Virus RNA Qual PCR NEGATIVE (Negative); SARS COV2 PCR INHOUSE NEGATIVE (Negative)
== END 2021-02-15 15:27 | disposition home or self-care (01) ==
LOC: HO.LAB 15:26
PROVIDERS: Visit Provider Physician Assistant Medical
DX: Z20.822 Contact with and (suspected) exposure to COVID-19 (principal); J06.9 Acute upper respiratory infection, unspecified
CPT/HCPCS: 0241U; 36415; 71046

== ENCOUNTER 2021-03-28 14:43 | Outpatient (REF) | payer MEDICARE, SELFPAY ==
--- NOTE | ~2021-03-28 | CT_ITS ---
EXAMINATION: CT CHEST WITH CONTRAST CLINICAL INFORMATION: History of lung carcinoma, surveillance imaging COMPARISON: 10/07/2019 TECHNIQUE: Multidetector volumetric CT imaging of the chest was obtained after the administration of 65 mL of Omnipaque 350 intravenous contrast without immediate adverse reactions. Axial MIP volume rendering provided. Sagittal and coronal reformatted images were obtained. This CT examination was performed using dose optimization techniques as appropriate, variously including the following: *Automated exposure control *Adjustment of mA and/or kV according to patient size (this includes techniques or standardized protocols for targeted exams where dose is matched to indication/reason for exam; i.e. extremities or head) *Use of iterative reconstruction technique DLP: 174 mGy-cm FINDINGS: FINAL RAIL CUTTER: Similar LUNGS: Postsurgical changes left upper lobe parametrial location appears unchanged. Mild to moderate volume loss appears similar. No developing abnormality or any satellite lesions noted in the interim. Tiny pulmonary nodules are less conspicuous on the current exam without any developing abnormality. Largest left base lateral basal segment measuring 3 mm unchanged. MEDIASTINUM: Unchanged. Severe coronary artery cirrhosis again noted. No mediastinal mass or hilar lesion. No endobronchial lesion new in the interim. PLEURA: There is no pleural effusion. No pleural mass or thickening. AXILLA: No lymphadenopathy. UPPER ABDOMEN: Unremarkable OSSEOUS STRUCTURES: Old minor superior compression fracture lower dorsal spine similar. CT/CT chest w con IMPRESSION: Overall stable exam. No developing abnormality. Appearance favors post treatment changes. Stable incidental findings. Fleischner guidelines were followed.
[2021-03-28] MEDS: iohexoL 350 MG/ML 100 ML INFUS..BTL 85 ML IV (15:37)
== END 2021-03-28 14:44 | disposition home or self-care (01) ==
LOC: HO.CT 14:43
PROVIDERS: Visit Provider Internal Medicine Medical Oncology
DX: C34.90 Malignant neoplasm of unspecified part of unspecified bronchus or lung (principal)
CPT/HCPCS: 71260; Q9967

== ENCOUNTER → 2021-04-17 12:11 | Outpatient (BNVA) | payer MEDICARE, SELFPAY | PROVIDERS: Visit Provider Internal Medicine Gastroenterology | DX: Z13.89 Encounter for screening for other disorder (principal) | CPT/HCPCS: Q3014 ==

== ENCOUNTER 2021-08-03 16:34 | Inpatient (IN) | payer MEDICARE, SELFPAY ==
--- NOTE | ~2021-08-03 | XR_ITS ---
EXAMINATION: XR CHEST CLINICAL INFORMATION: Dyspnea COMPARISON: Chest CT 03/28/2021 and chest x-ray 02/15/2021 TECHNIQUE: Frontal view of the chest was obtained. FINDINGS: Stable cardiac silhouette. Unchanged volume loss/consolidation of the left lung apex. The lungs are otherwise well aerated. No pleural effusion or pneumothorax. XR/XR chest 1V IMPRESSION: Stable examination demonstrating no acute pulmonary pathology.
--- NOTE | ~2021-08-03 | CT_ITS ---
EXAMINATION: CT ANGIOGRAM OF THE CHEST WITH AND WITHOUT CONTRAST (CT PULMONARY ANGIOGRAM FOR PE) CLINICAL INFORMATION: Shortness of breath. History of lung cancer. COMPARISON: CT chest from 03/28/2021. TECHNIQUE: Prior to contrast administration, noncontrast localization images were obtained. Subsequently, multidetector volumetric imaging was performed from the thoracic inlet to below the diaphragms following the administration of 70 mL Omnipaque 350 intravenous contrast. No contrast reaction reported. Sagittal, coronal, and MIP oblique sagittal reformatted images were obtained on the CT workstation, uploaded to PACS, and reviewed. This CT examination was performed using dose optimization techniques as appropriate, variously including the following: *Automated exposure control. *Adjustment of mA and/or kV according to patient size (this includes techniques or standardized protocols for targeted exams where dose is matched to indication/reason for exam; i.e. extremities or head). *Use of iterative reconstruction technique. Total exam dose-length product 413 mGy-cm FINDINGS: QUALITY OF STUDY/CONTRAST BOLUS: Satisfactory. PULMONARY ARTERIES: No central or segmental pulmonary emboli. Chronic blunting of the pulmonary arteries associated with the collapsed left upper lobe medial and apical segments. THORACIC AORTA: Normal contour and caliber with moderate calcific atherosclerotic disease. No aneurysm or dissection. LUNG: Chronic consolidated/collapsed lung parenchyma in the medial and apical aspects of the left upper lobe. The left hemithorax is diminutive in size relative to the contralateral side. Mild irregular subpleural opacification in the lateral aspect of the right lower lobe. There are a few scattered patchy irregular airspace opacities in the right lung base. No additional pulmonary parenchymal abnormalities. Small volume of partially aerated mucous within the right mainstem bronchus. Mild peribronchial wall thickening throughout the visualized lower lobes. PLEURA: No pleural effusion or pneumothorax. MEDIASTINUM: Normal heart size. No pericardial effusion. No hilar or mediastinal lymphadenopathy. No evidence of septal bowing or right heart strain. Advanced coronary artery calcifications. CHEST WALL/AXILLA: No axillary or internal mammary lymphadenopathy. OSSEOUS STRUCTURES: No acute or suspicious osseous abnormality. Chronic hyperostotic changes of the posterior aspect left 3rd-6th ribs. Moderate multilevel degenerative spondyloarthropathy of the thoracic spine. Chronic anterior wedge deformities of the T12 and L1 vertebral bodies. UPPER ABDOMEN: No demonstrated significant abnormalities of the visualized upper abdomen. No reflux of contrast into the hepatic veins to suggest elevated right heart pressures. CT/CT angio chest PE protocol IMPRESSION: 1. No evidence of pulmonary aneurysm central or segmental. 2. Small patchy airspace opacities in the right lower lobe. Small volume layering mucus within the right mainstem bronchus. Recommend correlation with potential aspiration event. 3. Chronic opacified partial collapse of the medial and apical left upper lobe. VTE: Negative.
[2021-08-03 17:51] VITALS: BP 116/51; PULSE 78; RESP 20; TEMP 36.8; O2SAT 93; BMI 32.3
--- NOTE | 2021-08-03 17:53 | ECG_ITS ---
Test Reason : DIF BREATHING Blood Pressure : / mmHG Vent. Rate : 071 BPM Atrial Rate : 071 BPM P-R Int : 158 ms QRS Dur : 086 ms QT Int : 382 ms P-R-T Axes : 052 076 064 degrees QTc Int : 415 ms Normal sinus rhythm Normal ECG When compared with ECG of 27-MAY-2020 02:53, No significant change was found Referred By: Carson Yusuf Electronically Signed By:YOCASTA GIL
--- NOTE | 2021-08-03 17:53 | ECG_ITS ---
Test Reason : DYSPNEA Blood Pressure : / mmHG Vent. Rate : 065 BPM Atrial Rate : 065 BPM P-R Int : 180 ms QRS Dur : 086 ms QT Int : 406 ms P-R-T Axes : 067 081 076 degrees QTc Int : 422 ms Normal sinus rhythm Normal ECG When compared with ECG of 03-AUG-2021 17:51, No significant change was found Referred By: Carson Yusuf Electronically Signed By:YOCASTA GIL
[2021-08-03 18:25] LABS: COVID-19 Test Negative (Negative); IDNOW Serial# 16C4AD1C
[2021-08-03 18:34] LABS: Troponin-I High Sensitivity < 3.5 ng/L (<3.5-35.0)
[2021-08-03 18:40] LABS: Anion Gap 11 (12-20); Blood Urea Nitrogen 11 mg/dL (9-16); Calcium 9.5 mg/dL (8.4-10.2); Carbon Dioxide 41 mmol/L (22-29); Chloride 91 mmol/L (96-108); Creatinine Clr Calc Pharmacy 78.5; Estimated Glomerular Filt Rate > 60; Glucose Random 295 mg/dL (60-115); Potassium 4.4 mmol/L (3.3-5.1); Sodium 139 mmol/L (135-145)
[2021-08-03 18:49] LABS: Hematocrit 40.9 % (42.0-52.0); Hemoglobin 12.4 g/dl (14.0-18.0); Mean Corpuscular HGB Conc 30.3 g/dl (31.0-36.0); Mean Corpuscular Hemoglobin 29.4 pg (27.0-33.0); Mean Corpuscular Volume 96.9 fL (80.0-98.0); Mean Platelet Volume 10.2 fL (9.4-12.4); Platelet Count 186 X10*3/uL (160-400); Red Blood Count 4.22 X10*6/uL (4.60-5.80); Red Cell Distribution Width 12.3 % (11.0-16.0); White Blood Count 5.3 X10*3/uL (4.8-10.8)
[2021-08-03 20:02] VITALS: BP 113/54; PULSE 63; TEMP 36.9; O2SAT 96
--- NOTE | 2021-08-03 20:03 | ED_ITS ---
HPI - SOB/Dyspnea General Chief Complaint: Dyspnea Stated Complaint: diff breathing Time Seen by Provider: 08/03/21 20:03 Source: patient Mode of arrival: ambulatory Limitations: no limitations History of Present Illness HPI Narrative: Patient history of severe COPD oxygen dependent on 2-3 LPM nasal cannula been feeling increased short of breath for last 10 days with increased congestion patient also does have history of squamous cell carcinoma on the left side since 2011 status post chemotherapy and radiation treatment lately patient been more short of breath and using treated her for oxygen desaturation to 91% even slight ambulation. While resting patient saturating 94-95%. No fever no chills no chest pain or palpitation Related Data Home Medications Medication Instructions Recorded Confirmed albuterol sulfate 90 mcg/actuation 2 puff PO Q4-6H PRN 01/14/20 06/11/21 aerosol inhaler ipratropium 0.5 mg-albuterol 3 mg 3 ml INHALATION DIRECTED 01/14/20 06/11/21 (2.5 mg base)/3 mL nebulization soln aspirin 81 mg tablet 81 mg PO DAILY 03/14/21 08/04/21 budesonide-formoterol HFA 160 2 puff INHALATION DAILY 03/14/21 06/11/21 mcg-4.5 mcg/actuation aerosol inhaler (Symbicort) isosorbide mononitrate 30 mg 1 tab PO DAILY 03/14/21 08/04/21 tablet,extended release 24 hr loratadine 10 mg tablet 10 mg PO DAILY 03/14/21 08/04/21 Previous Rx's Medication Instructions Recorded multivitamin (Daily-Kathleen) 1 tab PO DAILY #90 tab 05/13/20 omeprazole 20 mg capsule,delayed 20 mg PO DAILY cap 06/22/20 release cholecalciferol (vitamin D3) 1,250 1,250 mcg PO QWEEK #12 cap 12/26/20 mcg (50,000 unit) capsule atorvastatin 80 mg tablet 80 mg PO BEDTIME #90 tab 04/19/21 glipizide 5 mg tablet 5 mg PO BID #180 tab 04/19/21 escitalopram oxalate 20 mg tablet 10 mg PO DAILY #90 tab 05/12/21 metoprolol tartrate 25 mg tablet 25 mg PO BID #180 tab 05/12/21 metformin 1,000 mg tablet 1,000 mg PO BID #180 tab 07/05/21 Allergies Allergy/AdvReac Type Severity Reaction Status Date / Time fluticasone furoate Allergy Intermediate rash Verified 08/04/21 00:12 [From Trelegy Ellipta] vilanterol Allergy Intermediate rash Verified 08/04/21 00:12 [From Trelegy Ellipta] umeclidinium Allergy Unknown hives Verified 08/04/21 00:12 [Incruse Ellipta] Review of Systems 2 Review of Systems: Yes all other systems are reviewed and are negative [facility] Past Medical History Medical History Asthma Bacteremia due to Enterococcus COPD, severe Depression due to physical illness Diabetes mellitus with hyperglycemia, without long-term current use of insulin Generalized anxiety disorder Hyperlipemia Lung cancer Skin cancer Urinary incontinence Surgical History History of esophagogastroduodenoscopy (EGD) Hx of colonoscopy Hx of heart artery stent Family History Family History Father Medical history non-contributory Mother Medical history non-contributory Unknown family medical history Lung collapse Brother No problems noted. Brother No problems noted. Son No problems noted. Son No problems noted. Daughter No problems noted. Sister No problems noted. Sister No problems noted. Sister No problems noted. Sister No problems noted. Other HTN (hypertension) Social History Social History Household Members: Spouse Household Members Other:: grandson Housing: House Alcohol intake: former Patient Tobacco Use Status: Former Tobacco user e-Cigarette/Vaping Use: Never Used Use of substances other than those prescribed or required for medical reasons: No Advance Directives: No Advance Directives Information Provided: Yes service: No Current occupational status: retired Physical Exam Vital Signs: Vital Signs: Last Vital Signs Temp 97.5 F 08/03/21 23:08 Pulse 60 08/03/21 23:08 Resp 16 08/03/21 20:52 BP 110/53 L 08/03/21 23:08 Pulse Ox 95 08/03/21 23:08 Oxygen Flow Rate 3 08/03/21 17:51 BMI result Body Mass Index 32.3 Appearance: Alert. Oriented X3. No acute distress. Eyes: No pallor or icterus ENT: Pharynx normal. Oral Mucosa moist Neck: Normal inspection. Neck supple. CVS: Normal heart rate and rhythm. Pulses normal. Respiratory: Mild respiratory distress decreased air entry bilateral occasional rhonchi few crackles at bases, no percussion dullness Abdomen: Soft and nontender. Bowel sounds are present, no mass palpable, Extremities: No lower extremity edema. No calf tenderness Neuro: Oriented X 3. MDM - SOB/Dyspnea MDM Narrative Medical decision making narrative: Patient history of lung cancer COPD diabetes oxygen-dependent came for increased shortness of breath and cough workup showed patchy airspace with density in the right lower lobe and mucus plugging on the right main bronchus with compensated respiratory acidosis and metabolic alkalosis started on IV antibiotics nebulizing treatment patient has elevated lactic acid secondary infection and albuterol treatment patient not in septic shock has a chronic hypoxia will admit patient for further management Lab Data Attestation: I reviewed the patient's lab results. Result diagrams: 08/03/21 18:02 08/03/21 18:02 Labs: Lab Results 08/03/21 08/03/21 08/03/21 Range/Units 18:02 18:02 18:02 WBC 5.3 (4.8-10.8) X10*3/uL RBC 4.22 L (4.60-5.80) X10*6/uL Hgb 12.4 L (14.0-18.0) g/dl Hct 40.9 L (42.0-52.0) % MCV 96.9 (80.0-98.0) fL MCH 29.4 (27.0-33.0) pg MCHC 30.3 L (31.0-36.0) g/dl RDW 12.3 (11.0-16.0) % Plt Count 186 D (160-400) X10*3/uL MPV 10.2 (9.4-12.4) fL Absolute Nucleated RBC 0.000 (0.0-0.012) X10*3/uL Nucleated RBC % (auto) 0.0 (0.0-0.2) /100WBC PT (9.9-13.0) SEC INR (0.9-1.1) APTT (24.1-38.0) SEC D-Dimer High Sensitivty NG/ML VBG pH (7.32-7.43) VBG pCO2 mmHg VBG pO2 mmHg VBG HCO3 (22-26) mmol/L VBG O2 Saturation % VBG Base Excess mmol/L Sodium 139 (135-145) mmol/L Potassium 4.4 (3.3-5.1) mmol/L Chloride 91 L (96-108) mmol/L Carbon Dioxide 41 H* (22-29) mmol/L Anion Gap 11 L (12-20) BUN 11 (9-16) mg/dL Creatinine 0.91 (0.5-1.4) mg/dL Estim Creat Clear Calc 78.5 Estimated GFR > 60 Random Glucose 295 H (60-115) mg/dL Lactic Acid (0.5-2.0) mmol/L Calcium 9.5 (8.4-10.2) mg/dL Troponin I High Sens < 3.5 (<3.5-35.0) ng/L B-Natriuretic Peptide (<100) pg/mL COVID-19 ([facility]) (Negative) COVID-19 Clin Com Influenza Type A (PCR) (Negative) Influenza Type B (PCR) (Negative) RSV RNA Qual (PCR) (Negative) SARS-CoV-2 RNA (RT-PCR) (Negative) 08/03/21 08/03/21 08/03/21 Range/Units 18:02 20:49 20:49 WBC (4.8-10.8) X10*3/uL RBC (4.60-5.80) X10*6/uL Hgb (14.0-18.0) g/dl Hct (42.0-52.0) % MCV (80.0-98.0) fL MCH (27.0-33.0) pg MCHC (31.0-36.0) g/dl RDW (11.0-16.0) % Plt Count (160-400) X10*3/uL MPV (9.4-12.4) fL Absolute Nucleated RBC (0.0-0.012) X10*3/uL Nucleated RBC % (auto) (0.0-0.2) /100WBC PT (9.9-13.0) SEC INR (0.9-1.1) APTT 39.0 H (24.1-38.0) SEC D-Dimer High Sensitivty 285 NG/ML VBG pH (7.32-7.43) VBG pCO2 mmHg VBG pO2 mmHg VBG HCO3 (22-26) mmol/L VBG O2 Saturation % VBG Base Excess mmol/L Sodium (135-145) mmol/L Potassium (3.3-5.1) mmol/L Chloride (96-108) mmol/L Carbon Dioxide (22-29) mmol/L Anion Gap (12-20) BUN (9-16) mg/dL Creatinine (0.5-1.4) mg/dL Estim Creat Clear Calc Estimated GFR Random Glucose (60-115) mg/dL Lactic Acid (0.5-2.0) mmol/L Calcium (8.4-10.2) mg/dL Troponin I High Sens (<3.5-35.0) ng/L B-Natriuretic Peptide (<100) pg/mL COVID-19 ([facility]) Negative (Negative) COVID-19 Clin Com See Note Influenza Type A (PCR) NEGATIVE (Negative) Influenza Type B (PCR) NEGATIVE (Negative) RSV RNA Qual (PCR) NEGATIVE (Negative) SARS-CoV-2 RNA (RT-PCR) NEGATIVE (Negative) 08/03/21 08/03/21 08/03/21 Range/Units 20:49 20:49 21:16 WBC (4.8-10.8) X10*3/uL RBC (4.60-5.80) X10*6/uL Hgb (14.0-18.0) g/dl Hct (42.0-52.0) % MCV (80.0-98.0) fL MCH (27.0-33.0) pg MCHC (31.0-36.0) g/dl RDW (11.0-16.0) % Plt Count (160-400) X10*3/uL MPV (9.4-12.4) fL Absolute Nucleated RBC (0.0-0.012) X10*3/uL Nucleated RBC % (auto) (0.0-0.2) /100WBC PT 11.1 (9.9-13.0) SEC INR 1.0 (0.9-1.1) APTT (24.1-38.0) SEC D-Dimer High Sensitivty NG/ML VBG pH 7.35 (7.32-7.43) VBG pCO2 96 mmHg VBG pO2 38 mmHg VBG HCO3 53 H (22-26) mmol/L VBG O2 Saturation 59.0 % VBG Base Excess 21.9 mmol/L Sodium (135-145) mmol/L Potassium (3.3-5.1) mmol/L Chloride (96-108) mmol/L Carbon Dioxide (22-29) mmol/L Anion Gap (12-20) BUN (9-16) mg/dL Creatinine (0.5-1.4) mg/dL Estim Creat Clear Calc Estimated GFR Random Glucose (60-115) mg/dL Lactic Acid (0.5-2.0) mmol/L Calcium (8.4-10.2) mg/dL Troponin I High Sens (<3.5-35.0) ng/L B-Natriuretic Peptide 24 (<100) pg/mL COVID-19 ([facility]) (Negative) COVID-19 Clin Com Influenza Type A (PCR) (Negative) Influenza Type B (PCR) (Negative) RSV RNA Qual (PCR) (Negative) SARS-CoV-2 RNA (RT-PCR) (Negative) 08/04/21 Range/Units 00:36 WBC (4.8-10.8) X10*3/uL RBC (4.60-5.80) X10*6/uL Hgb (14.0-18.0) g/dl Hct (42.0-52.0) % MCV (80.0-98.0) fL MCH (27.0-33.0) pg MCHC (31.0-36.0) g/dl RDW (11.0-16.0) % Plt Count (160-400) X10*3/uL MPV (9.4-12.4) fL Absolute Nucleated RBC (0.0-0.012) X10*3/uL Nucleated RBC % (auto) (0.0-0.2) /100WBC PT (9.9-13.0) SEC INR (0.9-1.1) APTT (24.1-38.0) SEC D-Dimer High Sensitivty NG/ML VBG pH (7.32-7.43) VBG pCO2 mmHg VBG pO2 mmHg VBG HCO3 (22-26) mmol/L VBG O2 Saturation % VBG Base Excess mmol/L Sodium (135-145) mmol/L Potassium (3.3-5.1) mmol/L Chloride (96-108) mmol/L Carbon Dioxide (22-29) mmol/L Anion Gap (12-20) BUN (9-16) mg/dL Creatinine (0.5-1.4) mg/dL Estim Creat Clear Calc Estimated GFR Random Glucose (60-115) mg/dL Lactic Acid 3.3 H* (0.5-2.0) mmol/L Calcium (8.4-10.2) mg/dL Troponin I High Sens (<3.5-35.0) ng/L B-Natriuretic Peptide (<100) pg/mL COVID-19 ([facility]) (Negative) COVID-19 Clin Com Influenza Type A (PCR) (Negative) Influenza Type B (PCR) (Negative) RSV RNA Qual (PCR) (Negative) SARS-CoV-2 RNA (RT-PCR) (Negative) ABG Data Attestation: I personally reviewed and interpreted this ABG as follows: Interpretation: Respiratory acidosis metabolic alkalosis with hypoxia ECG Data Attestation: I personally reviewed and interpreted this ECG as follows: Interpretation: Normal sinus rhythm heart rate 65 beats per minute normal intervals normal axis no acute ST changes impression normal EKG Critical Care Time Critical Care Time Critical Care Time: Yes Total Critical Care Time: 55 Attestation: I spent 55 minutes of critical care, with interventions, assessments, speaking to patient, consultants, and family. Discharge Plan Discharge Clinical Impression: Acute exacerbation of chronic obstructive airways disease, Pneumonia, Hypoxemia Patient Disposition: Admitted As Inpatient
[2021-08-03 20:52] VITALS: PULSE 64; RESP 16; O2SAT 97
[2021-08-03] MEDS: Albuterol/Iprat 2.5/0.5MG 3 ML AMPUL.NEB INHALE (20:52)
[2021-08-03] MEDS: Albuterol Sulfate (0.083%) 2.5 MG/3 ML VIAL.NEB 5 MG INHALE (20:52)
[2021-08-03] MEDS: methylPREDNISolone Sod Succ 125 MG/2 ML VIAL IVPUSH (20:59)
[2021-08-03 21:02] LABS: Prothrombin Time 11.1 SEC (9.9-13.0)
[2021-08-03 21:04] LABS: D Dimer High Sensitivity 285 NG/ML
[2021-08-03 21:16] LABS: B Type Natriuretic Peptide 24 pg/mL (<100)
[2021-08-03 21:21] LABS: Venous Blood Gas Refer to POC result
[2021-08-03 21:22] LABS: VBG Base Excess 21.9 mmol/L; VBG HCO3 53 mmol/L (22-26); VBG pCO2 96 mmHg; VBG pH 7.35 (7.32-7.43); VBG pO2 38 mmHg
[2021-08-03 21:36] LABS: Influenza A PCR NEGATIVE (Negative); Influenza B PCR NEGATIVE (Negative); Resp Syncy Virus RNA Qual PCR NEGATIVE (Negative); SARS COV2 PCR INHOUSE NEGATIVE (Negative)
[2021-08-03] MEDS: iohexoL 350 MG/ML 100 ML INFUS..BTL IV (22:51)
[2021-08-03 23:08] VITALS: BP 110/53; PULSE 60; TEMP 36.4; O2SAT 95
[2021-08-04] VITALS (9 sets, daily range): BP systolic 93–135; BP diastolic 51–63; PULSE 61–97; RESP 14–20; TEMP 36.4–36.8; O2SAT 93–97
--- NOTE | 2021-08-04 00:42 | PM.IMHP ---
History of Present Illness Date of Service: 08/04/21 Chief Complaint: SOB 71-year-old male with a past medical history of asthma/COPD-not on home oxygen, anxiety, depression, history of lung cancer, diabetes, hypertension, hyperlipidemia; presented to the hospital today with a chief complaint of shortness of breath. Patient reports that he has been having shortness of breath the past 1-2 weeks. Chest pain gradually worsening. Mentioned that he had his Flovent inhalers reviewed to prednisone today with no significant improvement. Hence decided to come to the hospital for further evaluation. Also reported cough shortness of breath. Denies any fevers. Denies any nausea vomiting diarrhea. Denies any urinary symptoms. Denies any chest pain or palpitations. Review of all other systems negative except mentioned above ER course: Per ER team patient on presentation noted to have diminished breath sounds; not in respiratory distress; placed on supplemental oxygen at 3 L saturating at 83%; EKG was nonischemic; troponin negative; on labs noted to have elevated serum bicarb; blood gas showed pH of 7.35, pCO2 26; not in respiratory distress. Patient was given nebulizations and steroids. Patient also received antibiotics given concerns for pneumonia on the CTA chest. No evidence of PE. [facility] Medical History Asthma Bacteremia due to Enterococcus COPD, severe Depression due to physical illness Diabetes mellitus with hyperglycemia, without long-term current use of insulin Generalized anxiety disorder Hyperlipemia Lung cancer Skin cancer Urinary incontinence Family History Father Medical history non-contributory Mother Medical history non-contributory Unknown family medical history Lung collapse Brother No problems noted. Brother No problems noted. Son No problems noted. Son No problems noted. Daughter No problems noted. Sister No problems noted. Sister No problems noted. Sister No problems noted. Sister No problems noted. Other HTN (hypertension) Surgical History History of esophagogastroduodenoscopy (EGD) Hx of colonoscopy Hx of heart artery stent Social History Household Members: Spouse Household Members Other:: grandson Housing: House Alcohol intake: former Patient Tobacco Use Status: Former Tobacco user e-Cigarette/Vaping Use: Never Used Use of substances other than those prescribed or required for medical reasons: No Advance Directives: No Advance Directives Information Provided: Yes service: No Current occupational status: retired Meds Allergies Allergy/AdvReac Type Severity Reaction Status Date / Time fluticasone furoate Allergy Intermediate rash Verified 08/04/21 00:12 [From Trelegy Ellipta] vilanterol Allergy Intermediate rash Verified 08/04/21 00:12 [From Trelegy Ellipta] umeclidinium Allergy Unknown hives Verified 08/04/21 00:12 [Incruse Ellipta] Active Medications: Current Medications Dextrose (Dextrose 50 % 25 Gm/50 Ml Syringe) 25 gm IVPUSH Q15M PRN; Protocol PRN Reason: per Hypoglycemia Standing Ord. Famotidine (Famotidine/Pf 20 Mg/2 Ml Vial) 20 mg IVPUSH BID DUTCH Glucose (Glucose Gel 15 Gm Gel..Gram.) 15 gm PO Q15M PRN; Protocol PRN Reason: per Hypoglycemia Standing Ord. Doxycycline Hyclate 100 mg/ (Sodium Chloride) 250 mls @ 166.67 mls/hr IV ONCE ONE Stop: 08/04/21 01:38 Ceftriaxone Sodium 1 gm/ (Sodium Chloride) 50 mls @ 100 mls/hr IV Q24H DUTCH Doxycycline Hyclate 100 mg/ (Sodium Chloride) 250 mls @ 166.67 mls/hr IV Q12H [facility] Insulin Human Lispro (Insulin Lispro 100 Unit/Ml 3 Ml Vial) 0 unit SUBCUT QIDACHS [facility]; Protocol Methylprednisolone Sodium Succinate (Methylprednisolone Sod Succ 40 Mg/Ml Vial) 40 mg IVPUSH Q6H [facility] Home Medications Medication Instructions Recorded Confirmed Last Taken Type albuterol sulfate 90 mcg/actuation 2 puff PO Q4-6H PRN 01/14/20 08/04/21 05/27/20 History aerosol inhaler 0200 ipratropium 0.5 mg-albuterol 3 mg 3 ml INHALATION DIRECTED 01/14/20 08/04/21 Unknown History (2.5 mg base)/3 mL nebulization soln aspirin 81 mg tablet 81 mg PO DAILY 03/14/21 08/04/21 Unknown History budesonide-formoterol HFA 160 2 puff INHALATION DAILY 03/14/21 08/04/21 Unknown History mcg-4.5 mcg/actuation aerosol inhaler (Symbicort) isosorbide mononitrate 30 mg 1 tab PO DAILY 03/14/21 08/04/21 Unknown History tablet,extended release 24 hr loratadine 10 mg tablet 10 mg PO DAILY 03/14/21 08/04/21 Unknown History lorazepam 0.5 mg tablet 0.5 mg PO DAILY PRN 08/04/21 08/04/21 Unknown History Physical Exam Vital Signs and Narrative: Vital Signs: Last Vital Signs Temp 97.5 F 08/03/21 23:08 Pulse 60 08/03/21 23:08 Resp 16 08/03/21 20:52 BP 110/53 L 08/03/21 23:08 Pulse Ox 95 08/03/21 23:08 Oxygen Flow Rate 3 08/03/21 17:51 BMI result Body Mass Index 32.3 Gen: Appears be in no acute distress. Able to speak in full sentences HEENT: NCAT, Moist mucosa. Pulmonary: Diminished breath sounds. CVS: Normal S1-S2 Abdomen: BS+, Soft, Nontender Extremities: Warm well perfused Neuro: Alert and awake. Results Labs CBC and Chem 7: 08/03/21 18:02 08/03/21 18:02 Labs: Laboratory Results - last 24 hr 08/03/21 08/03/21 08/03/21 18:02 18:02 18:02 MCV 96.9 MCH 29.4 MCHC 30.3 L RDW 12.3 Plt Count 186 D MPV 10.2 Absolute Nucleated RBC 0.000 Nucleated RBC % (auto) 0.0 PT INR APTT D-Dimer High Sensitivty VBG pH VBG pCO2 VBG pO2 VBG HCO3 VBG O2 Saturation VBG Base Excess Anion Gap 11 L Estim Creat Clear Calc 78.5 Estimated GFR > 60 Random Glucose 295 H Calcium 9.5 Troponin I High Sens < 3.5 B-Natriuretic Peptide COVID-19 ([facility]) COVID-19 Clin Com Influenza Type A (PCR) Influenza Type B (PCR) RSV RNA Qual (PCR) SARS-CoV-2 RNA (RT-PCR) 08/03/21 08/03/21 08/03/21 18:02 20:49 20:49 MCV MCH MCHC RDW Plt Count MPV Absolute Nucleated RBC Nucleated RBC % (auto) PT INR APTT 39.0 H D-Dimer High Sensitivty 285 VBG pH VBG pCO2 VBG pO2 VBG HCO3 VBG O2 Saturation VBG Base Excess Anion Gap Estim Creat Clear Calc Estimated GFR Random Glucose Calcium Troponin I High Sens B-Natriuretic Peptide COVID-19 ([facility]) Negative COVID-19 Clin Com See Note Influenza Type A (PCR) NEGATIVE Influenza Type B (PCR) NEGATIVE RSV RNA Qual (PCR) NEGATIVE SARS-CoV-2 RNA (RT-PCR) NEGATIVE 08/03/21 08/03/21 08/03/21 20:49 20:49 21:16 MCV MCH MCHC RDW Plt Count MPV Absolute Nucleated RBC Nucleated RBC % (auto) PT 11.1 INR 1.0 APTT D-Dimer High Sensitivty VBG pH 7.35 VBG pCO2 96 VBG pO2 38 VBG HCO3 53 H VBG O2 Saturation 59.0 VBG Base Excess 21.9 Anion Gap Estim Creat Clear Calc Estimated GFR Random Glucose Calcium Troponin I High Sens B-Natriuretic Peptide 24 COVID-19 ([facility]) COVID-19 Clin Com Influenza Type A (PCR) Influenza Type B (PCR) RSV RNA Qual (PCR) SARS-CoV-2 RNA (RT-PCR) Imaging Radiologist's Impressions: Impressions Chest X-Ray 08/03/21 18:13 IMPRESSION: Stable examination demonstrating no acute pulmonary pathology. Chest CTA 08/03/21 22:50 IMPRESSION: 1. No evidence of pulmonary aneurysm central or segmental. 2. Small patchy airspace opacities in the right lower lobe. Small volume layering mucus within the right mainstem bronchus. Recommend correlation with potential aspiration event. 3. Chronic opacified partial collapse of the medial and apical left upper lobe. VTE: Negative. Assessment and Plan (1) Acute exacerbation of chronic obstructive airways disease: Status: Acute (2) Diabetes mellitus with hyperglycemia, without long-term current use of insulin: Status: Acute (3) Pneumonia: Status: Acute Plan 71-year-old male with a past medical history of asthma/COPD-not on home oxygen, anxiety, depression, history of lung cancer, diabetes, hypertension, hyperlipidemia; presented to the hospital today with a chief complaint of shortness of breath. Noted to have following Acute COPD exacerbation: Patient's VBG showed pH of 7.35, pCO2 96. Patient currently saturating 93% on 3 L of supplemental oxygen. Not in respiratory distress. Able to finish full sentences. Continue Solu-Medrol IV Nebulizations standing and p.r.n. CT scan showed bronchitis with mucus; Pulmonology consult for possible bronchoscopy Supplemental oxygen p.r.n. Pneumonia: Will give the patient ceftriaxone and doxycycline. Follow up cultures. History of diabetes: Will keep the patient on Lantus 20 units plus insulin sliding scale. Hold home oral hypoglycemic agents. History of hypertension/hyperlipidemia: Continue home metoprolol, Imdur, statin History of anxiety/depression: Continue home Ativan/escitalopram DVT prophylaxis: Lovenox Code status: Full code Quality Stroke Does the patient have a stroke diagnosis?: No VTE Prior VTE?: No VTE Risk Level:: Medical - moderate - high VTE Device Contraindication: Treatment Not Indicated VTE Drug Contraindication: N/A - Med Ordered
[2021-08-04] MEDS: cefTRIAXone sodium 1 GM in 0.9 % Sodium Chloride 50 ML IV (00:47)
[2021-08-04 01:00] LABS: Lactic Acid 3.3 mmol/L (0.5-2.0)
[2021-08-04 01:02] LABS: Glucose, Whole Blood 426 mg/dL (60-115)
[2021-08-04] MEDS: Doxycycline Hyclate 100 MG in 0.9 % Sodium Chloride 250 ML 166.67 MG IV ×3 (01:48→21:09)
[2021-08-04 02:39] LABS: Reflex Lactate? Lactic Acid Added
--- NOTE | 2021-08-04 03:09 | PC.NURSE ---
Pt had sandwich, pudding and ice water at midnight. Pt placed in hospital bed for comfort.
[2021-08-04] MEDS: Melatonin 3 MG TABLET 6 MG PO (03:28)
[2021-08-04] MEDS: Insulin Glargine,Hum.rec.anlog 100 UNIT/ML 10 ML VIAL 20 UNIT SUBCUT (03:29)
[2021-08-04] MEDS: methylPREDNISolone Sod Succ 40 MG/ML VIAL IVPUSH ×4 (03:29→21:08)
[2021-08-04 04:03] LABS: ~Lactic Acid-LAB USE ONLY 2.8 mmol/L (0.5-2.0)
[2021-08-04] MEDS: LORazepam 0.5 MG TABLET PO (04:31)
[2021-08-04] MEDS: Albuterol/Iprat 2.5/0.5MG 3 ML AMPUL.NEB INHALE ×4 (04:35→20:29)
[2021-08-04 05:12] LABS: Reflex Lactate? 2 Y
[2021-08-04 05:51] LABS: MANUAL DIFF FLAG NO
[2021-08-04 05:53] LABS: Basophils Percent Auto 0.2 % (0-2); Hematocrit 38.6 % (42.0-52.0); Hemoglobin 11.9 g/dl (14.0-18.0); Imm Gran Abs Auto 0.02 X10*3/uL (0.00-0.03); Imm Gran Pct Auto 0.5 % (0.0-0.4); Lymphocytes Absolute Auto 0.5 X10*3/uL (1.2-4.9); Lymphocytes Percent Auto 11.3 % (20-40); Mean Corpuscular HGB Conc 30.8 g/dl (31.0-36.0); Mean Corpuscular Hemoglobin 29.2 pg (27.0-33.0); Mean Corpuscular Volume 94.6 fL (80.0-98.0); Mean Platelet Volume 9.8 fL (9.4-12.4); Monocytes Absolute Auto 0.1 X10*3/uL (0.1-1.2); Monocytes Percent Auto 1.6 % (2-11); Neutrophils Absolute Auto 3.7 x10*3/uL (2.0-8.3); Neutrophils Percent Auto 86.4 % (45-73); Platelet Count 179 X10*3/uL (160-400); Red Blood Count 4.08 X10*6/uL (4.60-5.80); Red Cell Distribution Width 12.2 % (11.0-16.0); White Blood Count 4.3 X10*3/uL (4.8-10.8)
[2021-08-04 05:54] LABS: Glucose, Whole Blood 248 mg/dL (60-115)
[2021-08-04 06:04] LABS: Anion Gap 13 (12-20); Blood Urea Nitrogen 12 mg/dL (9-16); Calcium 9.4 mg/dL (8.4-10.2); Carbon Dioxide 35 mmol/L (22-29); Chloride 91 mmol/L (96-108); Estimated Glomerular Filt Rate > 60; Glucose Random 290 mg/dL (60-115); Potassium 4.2 mmol/L (3.3-5.1); Sodium 135 mmol/L (135-145)
[2021-08-04 06:15] LABS: ~Lactic Acid-LAB USE ONLY 2.8 mmol/L (0.5-2.0)
[2021-08-04 07:28] LABS: Glucose, Whole Blood 281 mg/dL (60-115)
[2021-08-04] MEDS: Aspirin 81 MG TAB.CHEW PO (09:09)
--- NOTE | 2021-08-04 09:09 | PM.EVENT ---
Event Note Date of Service: 08/04/21 Event Note: I personally saw and examined this patient admitted this morning for COPD exacerbation. A/P per H and p of this morning. Continue bronchodilators steroid, cough meds
[2021-08-04] MEDS: Escitalopram Oxalate 10 MG TABLET PO (09:10)
[2021-08-04] MEDS: Metoprolol Tartrate 25 MG TABLET PO ×2 (09:10→21:09)
[2021-08-04] MEDS: Isosorbide Mononitrate 30 MG TAB.ER.24H PO (09:10)
[2021-08-04] MEDS: Loratadine 10 MG TABLET PO (09:10)
[2021-08-04] MEDS: Multivitamin TABLET 1 TAB PO (09:10)
[2021-08-04] MEDS: 0.9 % Sodium Chloride Flush 3 ML SYRINGE IVFLUSH ×3 (09:12→23:47)
[2021-08-04] MEDS: Famotidine/PF 20 MG/2 ML VIAL IVPUSH ×2 (09:13→21:08)
--- NOTE | 2021-08-04 09:14 | PHA.MEDREC ---
Addendum entered by Kathy Garcia 08/04/21 09:15: Pt did state that he took 4 tablets of the prednisone yesterday 08/03/21 because he really wasn't feeling good. Original Note: Pharmacy Consult ? Medication Reconciliation Pharmacy has completed the medication reconciliation. No remarkable issues. Kathy Garcia, Jose ArmandoD
--- NOTE | 2021-08-04 09:16 | PM.CNPUL ---
History of Present Illness History of Present Illness Consult date: 08/04/21 Chief complaint: PNA Narrative: This is an inpatient pulmonary consultation. The patient is a 71-year-old male with a past medical history of asthma/COPD-not on home oxygen, anxiety, depression, history of lung cancer, diabetes, hypertension, hyperlipidemia; presented to the hospital today with a chief complaint of shortness of breath.?Patient reports that he has been having shortness of breath the past 1-2 weeks.? Chest pain gradually worsening.? Mentioned that he had his Flovent inhalers reviewed to prednisone today with no significant improvement.? Hence decided to come to the hospital for further evaluation.? Also reported cough shortness of breath.? Denies any fevers.?Per ER team patient on presentation noted to have diminished breath sounds; not in respiratory distress; placed on supplemental oxygen at 3 L saturating at 83%; EKG was nonischemic; troponin negative; on labs noted to have elevated serum bicarb; blood gas showed pH of 7.35, pCO2 26; not in respiratory distress.? Patient was given nebulizations and steroids.? Patient also received antibiotics given concerns for pneumonia on the CTA chest.? No evidence of PE. I personally reviewed the CT scan demonstrating post radiation changes with evidence of atelectasis and scarring no obvious acute airspace disease Review of Systems Constitutional: Constitutional: Denies chills and Denies fever(s) Eyes: Eyes: Denies change in vision Cardiovascular: Cardiovascular: Reports no additional cardiovascular complaints and Reports dyspnea Respiratory: Respiratory: Reports cough, Denies hemoptysis, Denies excessive phlegm production, Denies pain on inspiration, Denies pain with cough, Reports dyspnea and Reports wheezing Gastrointestinal: Gastrointestinal: Reports no additional gastrointestinal complaints Musculoskeletal: Musculoskeletal: Reports no additional musculoskeletal complaints Neurologic: Denies Neuro-related abnormal movements Allergic/Immunologic: Allergic/Immunologic: Reports no additional allergic/immunologic complaints and Reports wheezing PMFSH Past Medical History Medical History Asthma Bacteremia due to Enterococcus COPD, 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 Brother No problems noted. Son No problems noted. Son No problems noted. Daughter No problems noted. Sister No problems noted. Sister No problems noted. Sister No problems noted. Sister No problems noted. Other HTN (hypertension) Surgical History Surgical History History of esophagogastroduodenoscopy (EGD) Hx of colonoscopy Hx of heart artery stent Social History Social History Household Members: Spouse Household Members Other:: grandson Housing: House Alcohol intake: former Patient Tobacco Use Status: Former Tobacco user e-Cigarette/Vaping Use: Never Used Use of substances other than those prescribed or required for medical reasons: No Advance Directives: No Advance Directives Information Provided: Yes service: No Current occupational status: retired Meds Allergies Allergy/AdvReac Type Severity Reaction Status Date / Time fluticasone furoate Allergy Intermediate rash Verified 08/04/21 00:12 [From Trelegy Ellipta] vilanterol Allergy Intermediate rash Verified 08/04/21 00:12 [From Trelegy Ellipta] umeclidinium Allergy Unknown hives Verified 08/04/21 00:12 [Incruse Ellipta] Active Medications: Current Medications Acetaminophen (Acetaminophen 325 Mg Tablet) 650 mg PO Q6H PRN PRN Reason: Pain, Mild (Pain Scale 1-3) Albuterol/Ipratropium (Albuterol/Iprat 2.5/0.5mg 3 Ml Ampul.Neb) 3 ml INHALE DIRECTED [facility] Albuterol/Ipratropium (Albuterol/Iprat 2.5/0.5mg 3 Ml Ampul.Neb) 3 ml INHALE RQ4H WHILE AWAKE [facility] Last Admin: 08/04/21 04:35 Dose: 3 ml Documented by: Albuterol/Ipratropium (Albuterol/Iprat 2.5/0.5mg 3 Ml Ampul.Neb) 3 ml INHALE RQ4H PRN PRN Reason: Shortness of Breath/Wheezing Aspirin (Aspirin 81 Mg Tab.Chew) 81 mg PO DAILY [facility] Atorvastatin Calcium (Atorvastatin Calcium 80 Mg Tablet) 80 mg PO BEDTIME [facility] Dextrose (Dextrose 50 % 25 Gm/50 Ml Syringe) 25 gm IVPUSH Q15M PRN; Protocol PRN Reason: per Hypoglycemia Standing Ord. Enoxaparin Sodium (Enoxaparin Sodium 40 Mg/0.4 Ml Syringe) 40 mg SUBCUT Q24H [facility] Escitalopram Oxalate (Escitalopram Oxalate 10 Mg Tablet) 10 mg PO DAILY [facility] Famotidine (Famotidine/Pf 20 Mg/2 Ml Vial) 20 mg IVPUSH BID [facility] Glucose (Glucose Gel 15 Gm Gel..Gram.) 15 gm PO Q15M PRN; Protocol PRN Reason: per Hypoglycemia Standing Ord. Ceftriaxone Sodium 1 gm/ (Sodium Chloride) 50 mls @ 100 mls/hr IV Q24H [facility] Doxycycline Hyclate 100 mg/ (Sodium Chloride) 250 mls @ 166.67 mls/hr IV Q12H [facility] Insulin Glargine (Insulin Glargine,Hum.Rec.Anlog 100 Unit/Ml 10 Ml Vial) 20 unit SUBCUT DAILY [facility] Last Admin: 08/04/21 03:29 Dose: 20 unit Documented by: Insulin Human Lispro (Insulin Lispro 100 Unit/Ml 3 Ml Vial) 0 unit SUBCUT QIDACHS [facility]; Protocol Isosorbide Mononitrate (Isosorbide Mononitrate 30 Mg Tab.Er.24h) 30 mg PO DAILY [facility]; Protocol Loratadine (Loratadine 10 Mg Tablet) 10 mg PO DAILY [facility] Lorazepam (Lorazepam 0.5 Mg Tablet) 0.5 mg PO DAILY PRN PRN Reason: anxiety Last Admin: 08/04/21 04:31 Dose: 0.5 mg Documented by: Melatonin (Melatonin 3 Mg Tablet) 6 mg PO BEDTIME PRN PRN Reason: Insomnia Last Admin: 08/04/21 03:28 Dose: 6 mg Documented by: Methylprednisolone Sodium Succinate (Methylprednisolone Sod Succ 40 Mg/Ml Vial) 40 mg IVPUSH Q6H [facility] Last Admin: 08/04/21 03:29 Dose: 40 mg Documented by: Metoprolol Tartrate (Metoprolol Tartrate 25 Mg Tablet) 25 mg PO BID [facility]; Protocol Multivitamins/Vitamin C (Multivitamin Tablet) 1 tab PO DAILY [facility] Non-Formulary Medication (Budesonide-Formoterol [Symbicort]) 2 puff INHALE DAILY [facility] Non-Formulary Medication (Cholecalciferol (Vitamin D3)) 1,250 mcg PO QWEEK [facility] Senna (Sennosides 8.6 Mg Tablet) 17.2 mg PO BEDTIME PRN PRN Reason: Constipation Sodium Chloride (0.9 % Sodium Chloride Flush 3 Ml Syringe) 3 ml IVFLUSH QSHIFT [facility] Home Medications Medication Instructions Recorded Confirmed Last Taken Type albuterol sulfate 90 mcg/actuation 2 puff PO Q4H PRN 01/14/20 08/04/21 05/27/20 History aerosol inhaler 0200 ipratropium 0.5 mg-albuterol 3 mg 3 ml INHALATION Q6H 01/14/20 08/04/21 Unknown History (2.5 mg base)/3 mL nebulization soln budesonide-formoterol HFA 160 2 puff INHALATION DAILY 03/14/21 08/04/21 08/03/21 History mcg-4.5 mcg/actuation aerosol inhaler (Symbicort) isosorbide mononitrate 30 mg 1 tab PO DAILY 03/14/21 08/04/21 08/03/21 History tablet,extended release 24 hr aspirin 81 mg tablet,delayed 81 mg PO DAILY 08/04/21 08/04/21 08/03/21 History release calcium carbonate 600 mg-vitamin 1 tab PO DAILY 08/04/21 08/04/21 Unknown History D3 10 mcg (400 unit) tablet cholecalciferol (vitamin D3) 1,250 1 cap PO SA 08/04/21 08/04/21 07/29/21 History mcg (50,000 unit) capsule cyanocobalamin (vitamin B-12) 1,000 mcg PO DAILY 08/04/21 08/04/21 08/03/21 History 1,000 mcg tablet lorazepam 0.5 mg tablet 0.5 mg PO DAILY PRN 08/04/21 08/04/21 Unknown History prednisone 5 mg tablet 1 tab PO DAILY 08/04/21 08/04/21 08/03/21 History Physical Exam Vital Signs: Vital Signs: Last Vital Signs Temp 98.2 F 08/04/21 05:42 Pulse 94 08/04/21 07:58 Resp 16 08/04/21 07:58 BP 118/56 L 08/04/21 07:58 Pulse Ox 97 08/04/21 07:58 Oxygen Flow Rate 3 08/03/21 17:51 BMI result Body Mass Index 32.3 Const: General: alert Neck: Neck: Yes normal visual inspection, Yes full ROM and Yes no lymphadenopathy Chest: Chest palpation & inspection: normal inspection of the chest Resp: Auscultation: wheezes and diminished lung sounds Cardio: Rate: regular rate Rhythm: regular rhythm Heart sounds: S1 normal heart sound present and S2 normal heart sound present GI: Palpation (GI): Soft to palpation and nontender Auscultation: normal bowel sounds Skin: General skin exam: rashes and/or lesions noted Results Laboratory Findings CBC and BMP: 08/04/21 05:48 08/04/21 05:48 ABG, PT/INR, D-dimer: PT/INR, D-dimer PT 11.1 SEC (9.9-13.0) 08/03/21 20:49 INR 1.0 (0.9-1.1) 08/03/21 20:49 Abnormal lab findings: Abnormal Labs 08/03/21 08/03/21 08/03/21 18:02 18:02 20:49 WBC RBC 4.22 L Hgb 12.4 L Hct 40.9 L MCHC 30.3 L Immature Gran % (Auto) Neut % (Auto) Lymph % (Auto) Calloway % (Auto) Lymph # (Auto) APTT 39.0 H VBG HCO3 Chloride 91 L Carbon Dioxide 41 H* Anion Gap 11 L POC Glucose Random Glucose 295 H Lactic Acid Lactic Acid F/U @ 2Hr Lactic Acid F/U @ 4Hr 08/03/21 08/04/21 08/04/21 21:16 00:36 00:57 WBC RBC Hgb Hct MCHC Immature Gran % (Auto) Neut % (Auto) Lymph % (Auto) Calloway % (Auto) Lymph # (Auto) APTT VBG HCO3 53 H Chloride Carbon Dioxide Anion Gap POC Glucose 426 H* Random Glucose Lactic Acid 3.3 H* Lactic Acid F/U @ 2Hr Lactic Acid F/U @ 4Hr 08/04/21 08/04/21 08/04/21 03:08 05:48 05:48 WBC 4.3 L RBC 4.08 L Hgb 11.9 L Hct 38.6 L MCHC 30.8 L Immature Gran % (Auto) 0.5 H Neut % (Auto) 86.4 H Lymph % (Auto) 11.3 L Calloway % (Auto) 1.6 L Lymph # (Auto) 0.5 L APTT VBG HCO3 Chloride 91 L Carbon Dioxide 35 H Anion Gap POC Glucose Random Glucose 290 H Lactic Acid Lactic Acid F/U @ 2Hr 2.8 H* Lactic Acid F/U @ 4Hr 08/04/21 08/04/21 08/04/21 05:48 05:50 07:24 WBC RBC Hgb Hct MCHC Immature Gran % (Auto) Neut % (Auto) Lymph % (Auto) Calloway % (Auto) Lymph # (Auto) APTT VBG HCO3 Chloride Carbon Dioxide Anion Gap POC Glucose 248 H 281 H Random Glucose Lactic Acid Lactic Acid F/U @ 2Hr Lactic Acid F/U @ 4Hr 2.8 H* Assessment and Plan (1) Acute exacerbation of chronic obstructive airways disease: Status: Acute (2) Pneumonia: Status: Acute (3) Lung cancer: Qualifiers: Laterality: left Lung location: upper lobe of lung Qualified Code(s): C34.12 - Malignant neoplasm of upper lobe, left bronchus or lung Status: Acute No evidence of any recurrence at this time. His cancer was about 10 years ago. Likely just the residual post radiation changes to be expected Plan Continue ceftriaxone and doxycycline. He does have the area of atelectasis and fibrosis in the left upper lobe. Difficult to assess if he has a lower respiratory infection in that area. Reasonable to treat for community-acquired pneumonia. Continue Solu-Medrol 40 mg Q 6 Nebulizer therapy every 4 hours and as needed Oxygen supplementation to maintain a pulse ox of 90% or above Will continue to assess his progress over the weekend Procedures Date of Service Date of Service: 08/04/21
[2021-08-04] MEDS: Insulin Lispro 100 UNIT/ML 3 ML VIAL SUBCUT ×4 (09:23→21:09)
--- NOTE | 2021-08-04 09:25 | PC.NURSE ---
Seen by Pulmonology and hospitalist. Pt sitting upright, alert/oriented. LS clear on left, diminished on right side. No visible SOB noted. sat 95% on 2lpm
[2021-08-04 12:38] LABS: Glucose, Whole Blood 216 mg/dL (60-115)
--- NOTE | 2021-08-04 12:48 | MHC.CM.PN ---
PT REPORTS HE LIVES WITH HIS AND HIS 14 YEAR OLD GRANDSON IS THERE MUCH OF THE TIME WELL HE REPORTS HE USES HOME OXYGEN FROM [facility] AND NO OTHER DME HE DENIES HAVING ANY HOME SERVICES PT REPORTS HE HAS A HCP NAMING HIS HIS AGENT. COPY REQUESTED PCP: JOSE F HAYWARD PT IS NOT COVID-19 VACCINATED IMM DELIVERED, COPY SENT TO [facility] CURRENT DC PLAN IS HOME WITH NO SERVICES FAMILY TO TRANSPORT
[2021-08-04 16:08] LABS: Glucose, Whole Blood 279 mg/dL (60-115)
[2021-08-04 19:50] LABS: Glucose, Whole Blood 385 mg/dL (60-115)
[2021-08-04] MEDS: Atorvastatin Calcium 80 MG TABLET PO (21:08)
[2021-08-05] VITALS (9 sets, daily range): BP systolic 101–139; BP diastolic 54–67; PULSE 67–94; RESP 16–20; TEMP 36.3–37.1; O2SAT 90–98
[2021-08-05] MEDS: cefTRIAXone sodium 1 GM in 0.9 % Sodium Chloride 50 ML IV (02:09)
[2021-08-05] MEDS: methylPREDNISolone Sod Succ 40 MG/ML VIAL IVPUSH ×4 (02:09→20:39)
[2021-08-05] MEDS: LORazepam 0.5 MG TABLET PO ×2 (02:39→23:37)
[2021-08-05 07:41] LABS: Glucose, Whole Blood 228 mg/dL (60-115)
[2021-08-05] MEDS: Loratadine 10 MG TABLET PO (08:23)
[2021-08-05] MEDS: Insulin Lispro 100 UNIT/ML 3 ML VIAL SUBCUT ×4 (08:24→20:39)
[2021-08-05] MEDS: Metoprolol Tartrate 25 MG TABLET PO ×2 (08:24→20:39)
[2021-08-05] MEDS: Aspirin 81 MG TAB.CHEW PO (08:24)
[2021-08-05] MEDS: Isosorbide Mononitrate 30 MG TAB.ER.24H PO (08:24)
[2021-08-05] MEDS: 0.9 % Sodium Chloride Flush 3 ML SYRINGE IVFLUSH ×3 (08:24→20:40)
[2021-08-05] MEDS: Escitalopram Oxalate 10 MG TABLET PO (08:24)
[2021-08-05] MEDS: Multivitamin TABLET 1 TAB PO (08:24)
[2021-08-05] MEDS: Famotidine/PF 20 MG/2 ML VIAL IVPUSH ×2 (08:24→20:39)
[2021-08-05] MEDS: Insulin Glargine,Hum.rec.anlog 100 UNIT/ML 10 ML VIAL 20 UNIT SUBCUT (08:25)
--- NOTE | 2021-08-05 08:39 | P.PNIM_ITS ---
Subjective Subjective Date of Service: 08/05/21 Interval History: F/u on exacerbation of copd interval history:Doesn't feel worse or better Review of Systems sob, cough, no fever Physical Exam Vital Signs: Vital Signs: Last Vital Signs Temp 97.8 F 08/05/21 07:50 Pulse 84 08/05/21 07:50 Resp 16 08/05/21 07:50 BP 105/54 L 08/05/21 07:50 Pulse Ox 90 L 08/05/21 07:50 Oxygen Flow Rate 3 08/03/21 17:51 BMI result Body Mass Index 32.3 Const: Other: General: AO X 3, no acute distress Resp: inspiratory and exp wheezes CVS: S1,S2,RRR GI: +BS, NT, no distention Skin: No rash Neuro: motor grossly intact Psych: appropriate affect Objective Data Active Medications Acetaminophen (Acetaminophen 325 Mg Tablet) 650 mg PO Q6H PRN PRN Reason: Pain, Mild (Pain Scale 1-3) Albuterol/Ipratropium (Albuterol/Iprat 2.5/0.5mg 3 Ml Ampul.Neb) 3 ml INHALE RQ4H WHILE AWAKE [facility] Last Admin: 08/05/21 07:34 Dose: Not Given Documented by: JULIAN Non-Admin Reason: Patient Refused Albuterol/Ipratropium (Albuterol/Iprat 2.5/0.5mg 3 Ml Ampul.Neb) 3 ml INHALE Q4H PRN PRN Reason: Dyspnea Aspirin (Aspirin 81 Mg Tab.Chew) 81 mg PO DAILY [facility] Last Admin: 08/05/21 08:24 Dose: 81 mg Documented by: STAN Atorvastatin Calcium (Atorvastatin Calcium 80 Mg Tablet) 80 mg PO BEDTIME [facility] Last Admin: 08/04/21 21:08 Dose: 80 mg Documented by: BRENDA Dextrose (Dextrose 50 % 25 Gm/50 Ml Syringe) 25 gm IVPUSH Q15M PRN; Protocol PRN Reason: per Hypoglycemia Standing Ord. Enoxaparin Sodium (Enoxaparin Sodium 40 Mg/0.4 Ml Syringe) 40 mg SUBCUT Q24H [facility] Last Admin: 08/05/21 08:35 Dose: Not Given Documented by: STAN Non-Admin Reason: Patient Refused Escitalopram Oxalate (Escitalopram Oxalate 10 Mg Tablet) 10 mg PO DAILY [facility] Last Admin: 08/05/21 08:24 Dose: 10 mg Documented by: STAN Famotidine (Famotidine/Pf 20 Mg/2 Ml Vial) 20 mg IVPUSH BID [facility] Last Admin: 08/05/21 08:24 Dose: 20 mg Documented by: STAN Fluticasone/Vilanterol (Fluticasone/Vilanterol 200/25 Blst.W.Dev) 1 puff INHALE RDAILY [facility] Glucose (Glucose Gel 15 Gm Gel..Gram.) 15 gm PO Q15M PRN; Protocol PRN Reason: per Hypoglycemia Standing Ord. Ceftriaxone Sodium 1 gm/ (Sodium Chloride) 50 mls @ 100 mls/hr IV Q24H [facility] Last Infusion: 08/05/21 02:42 Dose: 0 mls/hr Documented by: FARIDA Doxycycline Hyclate 100 mg/ (Sodium Chloride) 250 mls @ 166.67 mls/hr IV Q12H [facility] Last Infusion: 08/04/21 22:56 Dose: 0 mls/hr Documented by: BRENDA Insulin Glargine (Insulin Glargine,Hum.Rec.Anlog 100 Unit/Ml 10 Ml Vial) 20 unit SUBCUT DAILY [facility] Last Admin: 08/05/21 08:25 Dose: 1 unit Documented by: STAN Comments: Insulin Human Lispro (Insulin Lispro 100 Unit/Ml 3 Ml Vial) 0 unit SUBCUT QIDACHS [facility]; Protocol Last Admin: 08/05/21 08:24 Dose: 4 unit Documented by: STAN Comments: Isosorbide Mononitrate (Isosorbide Mononitrate 30 Mg Tab.Er.24h) 30 mg PO DAILY [facility]; Protocol Last Admin: 08/05/21 08:24 Dose: 30 mg Documented by: STAN Loratadine (Loratadine 10 Mg Tablet) 10 mg PO DAILY [facility] Last Admin: 08/05/21 08:23 Dose: 10 mg Documented by: STAN Lorazepam (Lorazepam 0.5 Mg Tablet) 0.5 mg PO DAILY PRN PRN Reason: anxiety Last Admin: 08/05/21 02:39 Dose: 0.5 mg Documented by: FARIDA Melatonin (Melatonin 3 Mg Tablet) 6 mg PO BEDTIME PRN PRN Reason: Insomnia Last Admin: 08/04/21 03:28 Dose: 6 mg Documented by: UYEN Methylprednisolone Sodium Succinate (Methylprednisolone Sod Succ 40 Mg/Ml Vial) 40 mg IVPUSH Q6H [facility] Last Admin: 08/05/21 08:27 Dose: 40 mg Documented by: STAN Metoprolol Tartrate (Metoprolol Tartrate 25 Mg Tablet) 25 mg PO BID [facility]; Protocol Last Admin: 08/05/21 08:24 Dose: 25 mg Documented by: STAN Multivitamins/Vitamin C (Multivitamin Tablet) 1 tab PO DAILY [facility] Last Admin: 08/05/21 08:24 Dose: 1 tab Documented by: STAN Senna (Sennosides 8.6 Mg Tablet) 17.2 mg PO BEDTIME PRN PRN Reason: Constipation Sodium Chloride (0.9 % Sodium Chloride Flush 3 Ml Syringe) 3 ml IVFLUSH QSHIFT [facility] Last Admin: 08/05/21 08:24 Dose: 3 ml Documented by: STAN Labs CBC & Chem 7: 08/04/21 05:48 08/04/21 05:48 Labs: Laboratory Results - last 24 hr 08/04/21 08/04/21 08/04/21 12:35 16:05 19:39 POC Glucose 216 H 279 H 385 H* 08/05/21 07:26 POC Glucose 228 H Microbiology Microbiology Results: Microbiology 08/04/21 00:36 Blood Culture - Preliminary Blood - Venous No growth after 24 hours. 08/04/21 00:36 Blood Culture - Preliminary Blood - Venous No growth after 24 hours. Assessment and Plan (1) Acute exacerbation of chronic obstructive airways disease: Status: Acute Plan 71-year-old male with a past medical history of asthma/COPD-not on home oxygen, anxiety, depression, history of lung cancer, diabetes, hypertension, hyperlipidemia; presented admitted for acute ex of copd and pneumonia Acute hypoxic resp failure due to COPD and pneumonia, oxygen saturation remains marginal. -Continue bronchodilators by Nebs -IV corticosteroid -Oxygen -No new recommendation from pulmonary Pneumonia:?Ceftriaxone and Doxy History of diabetes:? Lantus 20 units plus insulin sliding scale.? Hold metformn History of hypertension/hyperlipidemia:? Continue home metoprolol, Imdur, statin History of anxiety/depression:? Continue home Ativan/escitalopram Lovenox for DVT prohy Need for inpatient: COPD, resp failure, not yet recover with persistent hypoxia and need further IV steroid and IV Abx for PNA Quality Stroke Does the patient have a stroke diagnosis?: No VTE Prior VTE?: No VTE Risk Level:: Medical - moderate - high VTE Device Contraindication: Treatment Not Indicated VTE Drug Contraindication: N/A - Med Ordered
[2021-08-05] MEDS: Doxycycline Hyclate 100 MG in 0.9 % Sodium Chloride 250 ML 166.67 MG IV ×2 (10:02→20:40)
[2021-08-05 11:09] LABS: Glucose, Whole Blood 288 mg/dL (60-115)
[2021-08-05] MEDS: Albuterol/Iprat 2.5/0.5MG 3 ML AMPUL.NEB INHALE ×3 (11:17→18:59)
[2021-08-05 16:06] LABS: Glucose, Whole Blood 327 mg/dL (60-115)
[2021-08-05 19:49] LABS: Glucose, Whole Blood 332 mg/dL (60-115)
[2021-08-05] MEDS: Atorvastatin Calcium 80 MG TABLET PO (20:39)
[2021-08-06] MEDS: cefTRIAXone sodium 1 GM in 0.9 % Sodium Chloride 50 ML IV (01:10)
[2021-08-06] MEDS: methylPREDNISolone Sod Succ 40 MG/ML VIAL IVPUSH ×2 (01:10→08:00)
[2021-08-06 03:15] VITALS: BP 158/62; PULSE 56; RESP 18; TEMP 36.3; O2SAT 98
[2021-08-06 07:18] VITALS: BP 130/61; PULSE 70; RESP 19; TEMP 36.8; O2SAT 96
[2021-08-06 07:24] LABS: Glucose, Whole Blood 201 mg/dL (60-115)
[2021-08-06] MEDS: Insulin Lispro 100 UNIT/ML 3 ML VIAL SUBCUT ×2 (07:57→11:40)
[2021-08-06] MEDS: Insulin Glargine,Hum.rec.anlog 100 UNIT/ML 10 ML VIAL 20 UNIT SUBCUT (07:57)
[2021-08-06] MEDS: Aspirin 81 MG TAB.CHEW PO (08:00)
[2021-08-06] MEDS: Famotidine/PF 20 MG/2 ML VIAL IVPUSH (08:00)
[2021-08-06] MEDS: Metoprolol Tartrate 25 MG TABLET PO (08:00)
[2021-08-06] MEDS: Multivitamin TABLET 1 TAB PO (08:01)
[2021-08-06] MEDS: Loratadine 10 MG TABLET PO (08:01)
[2021-08-06] MEDS: Isosorbide Mononitrate 30 MG TAB.ER.24H PO (08:01)
[2021-08-06] MEDS: Escitalopram Oxalate 10 MG TABLET PO (08:01)
[2021-08-06] MEDS: 0.9 % Sodium Chloride Flush 3 ML SYRINGE IVFLUSH (08:04)
[2021-08-06] MEDS: Albuterol/Iprat 2.5/0.5MG 3 ML AMPUL.NEB INHALE ×2 (08:19→11:23)
[2021-08-06 08:23] VITALS: PULSE 84; RESP 18; O2SAT 92
[2021-08-06] MEDS: Fluticasone/Vilanterol 200/25 BLST.W.DEV 1 PUFF INHALE (09:37)
[2021-08-06] MEDS: Doxycycline Hyclate 100 MG in 0.9 % Sodium Chloride 250 ML 166.67 MG IV (09:41)
[2021-08-06 11:21] VITALS: BP 115/65; PULSE 60; RESP 19; TEMP 36.6; O2SAT 99
[2021-08-06 11:25] VITALS: PULSE 82; RESP 18; O2SAT 93
[2021-08-06 11:27] LABS: Glucose, Whole Blood 194 mg/dL (60-115)
--- NOTE | 2021-08-06 12:11 | P.DS_ITS ---
DS: Providers Provider Date of Service: 08/06/21 Date of admission: 08/04/21 00:39 Primary care physician: Anne-Marie Muro MD Consults: 08/04/21 00:36 Consult to Pulmonology Routine Consulting Provider: Rosmery Esqueda Reason for consultation: Mucus plug ?Bronch; PNA; COPD DS: Diagnosis Discharge Diagnosis (1) Acute exacerbation of chronic obstructive airways disease: Status: Acute DS: Summary Hospital Course Hospital Course: Chief Complaint: SOB 71-year-old male with a past medical history of asthma/COPD-not on home oxygen, anxiety, depression, history of lung cancer, diabetes, hypertension, hyperlipidemia; presented to the hospital today with a chief complaint of shortness of breath.? Patient reports that he has been having shortness of breath the past 1-2 weeks.? Chest pain gradually worsening.? Mentioned that he had his Flovent inhalers reviewed to prednisone today with no significant improvement.? Hence decided to come to the hospital for further evaluation.? Also reported cough shortness of breath.? Denies any fevers.? Denies any nausea vomiting diarrhea.? Denies any urinary symptoms.? Denies any chest pain or palpitations.? Review of all other systems negative except mentioned above ER course: Per ER team patient on presentation noted to have diminished breath sounds; not in respiratory distress; placed on supplemental oxygen at 3 L saturating at 83%; EKG was nonischemic; troponin negative; on labs noted to have elevated serum bicarb; blood gas showed pH of 7.35, pCO2 26; not in respiratory distress.? Patient was given nebulizations and steroids.? Patient also received antibiotics given concerns for pneumonia on the CTA chest.? No evidence of PE. Hospital course: 71 year old male with underlying COPD and history of lung cancer who presented with SOB and found to have acute exacerbation of COPD and Pneumonia causing hypoxia. He was admitted and treate Ceftriaxone and Azithro for cummunity acquired penumonia, and for exacerbation of COPD precipitated by pneumonia this was treated with Iv steroid, bronchodilator by Neb and overall is doing much better, he is on oxygen at home and will continue. Hypoxia has resolved. He will be discharged home with Ceftin for 5 more days for total of 7 days of antibiotics and Prednisone for 3 more day for totall of 5 days of steroid. he feels comfortable with discharge plan Time Spent with Patient Time attestation: Total time spent providing and/or coordinating discharge services: Discharge coordination time: Greater than 30 minutes Quality: Safe Use of Opioids Does Pt have an Active Cancer Diagnosis on the Problem List?: Yes Opioid Measure Date for [facility] Report: 07/07/21 Opioid Measure Time for [facility] Report: 12:11 Quality: Stroke Does the patient have a stroke diagnosis?: No Physical Exam Vital Signs: Vital Signs: Last Vital Signs Temp 97.8 F 08/06/21 11:21 Pulse 82 08/06/21 11:25 Resp 18 08/06/21 11:25 BP 115/65 08/06/21 11:21 Pulse Ox 99 08/06/21 11:21 Oxygen Flow Rate 3 08/03/21 17:51 BMI result Body Mass Index 32.3 DS: Data Data Completed and Pending Labs on day of discharge: Laboratory Results - last 24 hr 08/05/21 08/05/21 08/06/21 16:01 19:43 07:20 POC Glucose 327 H 332 H 201 H 08/06/21 11:23 POC Glucose 194 H Preliminary micro results at discharge 08/04/21 00:36 Blood Culture - Preliminary Blood - Venous No growth after 48 hours. 08/04/21 00:36 Blood Culture - Preliminary Blood - Venous No growth after 48 hours. Discharge Plan Discharge Anticipated Discharge Date/Time: 08/06/21 12:03 Patient Disposition: Home, Self-Care Discharge Diagnosis: Pneumonia, COPD exacerbation Referrals: Anne-Marie Muro MD [Primary Care Provider] - 1 Week Discharge Medications: New cefuroxime axetil 500 mg tablet 500 mg PO BID 5 Days Qty: 10 0RF prednisone 20 mg tablet 20 mg PO DAILY Qty: 6 0RF Continued multivitamin [Daily-Kathleen] Tablet 1 tab PO DAILY Qty: 90 3RF omeprazole 20 mg capsule,delayed release(DR/EC) 20 mg PO DAILY 4RF glipizide 5 mg tablet 5 mg PO BID Qty: 180 3RF atorvastatin 80 mg tablet 80 mg PO BEDTIME Qty: 90 3RF metoprolol tartrate 25 mg tablet 25 mg PO BID Qty: 180 3RF metformin 1,000 mg tablet 1,000 mg PO BID Qty: 180 4RF isosorbide mononitrate 30 mg tablet extended release 24 hr 1 tab PO DAILY 0RF budesonide-formoterol [Symbicort] 160-4.5 mcg/actuation Hfa Aerosol Inhaler 2 puff INHALATION DAILY 0RF lorazepam 0.5 mg tablet 0.5 mg PO DAILY PRN (Reason: anxiety) 0RF prednisone 5 mg tablet 1 tab PO DAILY 0RF calcium carbonate-vitamin D3 600 mg-10 mcg (400 unit) tablet 1 tab PO DAILY 0RF cyanocobalamin (vitamin B-12) 1,000 mcg Tablet 1,000 mcg PO DAILY 0RF aspirin 81 mg Tablet,Delayed Release (Dr/Ec) 81 mg PO DAILY 0RF cholecalciferol (vitamin D3) 1,250 mcg (50,000 unit) capsule 1 cap PO SA 0RF albuterol sulfate 90 mcg/actuation HFA aerosol inhaler 2 puff PO Q4H PRN (Reason: Shortness Of Breath Or Wheezing) 0RF ipratropium-albuterol 0.5 mg-3 mg(2.5 mg base)/3 mL solution for nebulization 3 ml inhalation Q6H 0RF Discharge Orders: Discharge Order (Routine); Ordered 08/06/21 Ordered By: Edy Vasquez Diet: advance to usual diet and diabetic diet Activity on Discharge: As tolerated Stand Alone Forms: Patient Portal Discharge page Care Plan Goals: Full recovery from pneumonia and COPD exacerbation Health Concerns: COPD, pneumonia and underlying lung cancer Plan of Treatment: Take Cefuroxime for pneumonia Take predinosone for COPD and continue use of inhalers as before and follow up with your Doctor in a week Assessment: As above
--- NOTE | 2021-08-06 12:52 | MHC.CM.PN ---
Patient has been medically cleared for dc to home today, self care. Last IMM addressed on 08/04/21.
== END 2021-08-06 13:05 | disposition home or self-care (01) | DRG 193 ==
LOC: HO.ED 08-04 00:39 → HO.EDOVER 08-04 00:47 → HO.IMC 08-04 15:21
PROVIDERS: Admitting Provider Hospitalist; Emergency Provider Internal Medicine; PCP Internal Medicine; Visit Provider Internal Medicine
DX: J18.9 Pneumonia, unspecified organism (principal); J96.01 Acute respiratory failure with hypoxia; J44.0 Chronic obstructive pulmonary disease with (acute) lower respiratory infection; E87.4 Mixed disorder of acid-base balance; J98.11 Atelectasis; J44.1 Chronic obstructive pulmonary disease with (acute) exacerbation; E11.65 Type 2 diabetes mellitus with hyperglycemia; J84.10 Pulmonary fibrosis, unspecified; E78.5 Hyperlipidemia, unspecified; F41.9 Anxiety disorder, unspecified; F32.A Depression, unspecified; Z20.822 Contact with and (suspected) exposure to COVID-19; Z85.118 Personal history of other malignant neoplasm of bronchus and lung; Z87.891 Personal history of nicotine dependence; Z92.3 Personal history of irradiation; Z92.21 Personal history of antineoplastic chemotherapy; Z88.8 Allergy status to other drugs, medicaments and biological substances; Z79.82 Long term (current) use of aspirin; Z79.84 Long term (current) use of oral hypoglycemic drugs; Z79.899 Other long term (current) drug therapy
CPT/HCPCS: 0241U; 36415; 71045; 71275; 80048; 82803; 82947; 83605; 83880; 84484; 85025; 85027; 85379; 85610; 85730; 87040; 87635; 93005; 94640; 94644; 94664; 96365; 96375; 99285; 99291; J0696; J1650; J2920; J2930; Q9967

== ENCOUNTER → 2021-08-17 09:35 | Outpatient (BNVA) | payer MEDICARE, SELFPAY | PROVIDERS: PCP Internal Medicine; Visit Provider Internal Medicine Gastroenterology | DX: Z13.89 Encounter for screening for other disorder (principal) | CPT/HCPCS: Q3014 ==

== ENCOUNTER 2021-08-30 07:49 | Outpatient (REF) | payer MEDICARE, SELFPAY ==
[2021-08-30 11:29] LABS: Estimated Average Glucose 177 mg/dL; Hemoglobin A1c % 7.8 %
[2021-08-30 11:56] LABS: Alanine Aminotransferase 20 U/L (0-40); Aspartate Amino Transferase 18 U/L (5-37); Cholesterol 234 mg/dL; HDL Cholesterol 41 mg/dL; LDL Cholesterol Calculated 162 mg/dl; Triglycerides 158 mg/dL
[2021-08-30 12:22] LABS: Creatinine Urine 217.71 mg/dL; Microalbum/Creatinine Ratio Ur 19.7 ug/mg cr
== END 2021-08-30 07:50 | disposition home or self-care (01) ==
LOC: HO.HMGCLDS 07:49
PROVIDERS: Visit Provider Internal Medicine
DX: E11.65 Type 2 diabetes mellitus with hyperglycemia (principal); E78.00 Pure hypercholesterolemia, unspecified; K21.9 Gastro-esophageal reflux disease without esophagitis
CPT/HCPCS: 36415; 80061; 82043; 83036; 84450; 84460

== ENCOUNTER 2021-09-21 09:53 | Outpatient (REF) | payer MEDICARE, SELFPAY ==
--- NOTE | ~2021-09-21 | US_ITS ---
EXAMINATION: US ABDOMEN LIMITED CLINICAL INFORMATION: Cholesterolosis of the gallbladder. COMPARISON: Ultrasound abdomen complete 08/26/2020 and 12/31/2019. MRI abdomen 01/05/2020. CT abdomen and pelvis 10/05/2017. TECHNIQUE: Real-time imaging of the right upper quadrant abdominal viscera. FINDINGS: PANCREAS: The head of the pancreas is homogeneous in echotexture. The body and tail of pancreas is unremarkable. LIVER: The liver is enlarged measuring 19.2 cm. The liver contour is normal. Parenchymal echogenicity is normal. No focal hepatic lesion. There is no intrahepatic biliary duct dilatation seen. GALLBLADDER: The gallbladder is nondistended due to early breakfast. The gallbladder appears contracted without evidence of stones, sludge, polyps, or pericholecystic fluid. A mass seen within the gallbladder on ultrasound 08/26/2020 is not visualized on the present exam. Probably was a sludge ball. COMMON BILE DUCT: Normal in caliber measuring 1.1 cm in diameter. RIGHT KIDNEY: There is echogenic calcification seen in the midpole without twinkle. Measures 0.5 x 0.4 cm. No hydronephrosis. No renal calculi or focal parenchymal lesions. The kidney measures 12.1 cm in maximum dimension. FREE FLUID: None. US/US abdomen limited IMPRESSION: 1. Echogenic mobile structures seen in the gallbladder lumen is not seen at this time. The gallbladder is contracted due to early breakfast prior to the exam. 2. The body and tail of the pancreas are not seen. The head appears unremarkable. 3. There is echogenic calcification, midpole right kidney.
== END 2021-09-21 09:54 | disposition home or self-care (01) ==
LOC: HO.US 09:53
PROVIDERS: Visit Provider Internal Medicine Gastroenterology
DX: K74.60 Unspecified cirrhosis of liver (principal); K82.4 Cholesterolosis of gallbladder
CPT/HCPCS: 76705

== ENCOUNTER 2021-11-28 12:08 | Inpatient (IN) | payer MEDICARE, SELFPAY ==
--- NOTE | ~2021-11-28 | XR_ITS ---
EXAMINATION: XR CHEST CLINICAL INFORMATION: Shortness of breath COMPARISON: Chest radiograph from 07/2021 TECHNIQUE: Frontal view of the chest was obtained. FINDINGS: Stable consolidative opacities/of volume loss in the left lung apex. Chronic interstitial lung markings. Bibasilar atelectasis. No pneumothorax. Trachea is midline. Cardiomediastinal silhouette is stable. Degenerative changes of the thoracolumbar spine. Soft tissues are unremarkable. XR/XR chest 1V IMPRESSION: 1. Stable consolidative opacities/of volume loss in the left lung apex. 2. Chronic interstitial lung markings. 3. Bibasilar atelectasis.
[2021-11-28 12:17] VITALS: BP 131/97; BP 137/70; PULSE 84; PULSE 87; RESP 18; TEMP 37.1; O2SAT 100; O2SAT 96; BMI 32.3
--- NOTE | 2021-11-28 12:28 | ECG_ITS ---
Test Reason : dyspnea Blood Pressure : / mmHG Vent. Rate : 084 BPM Atrial Rate : 084 BPM P-R Int : 162 ms QRS Dur : 086 ms QT Int : 368 ms P-R-T Axes : 044 082 065 degrees QTc Int : 434 ms Normal sinus rhythm Normal ECG When compared with ECG of 03-AUG-2021 20:13, No significant change was found Referred By: Citlalli Abdul Electronically Signed By:JOSE PHILLIPS
--- NOTE | 2021-11-28 12:32 | ED.SOB ---
HPI - SOB/Dyspnea General Chief Complaint: Dyspnea Stated Complaint: SOB/DIFF BREATH X'S 3 DAYS 87% 2LPM,99% 3LPM W/DUO Time Seen by Provider: 11/28/21 12:27 Source: patient and EMS Mode of arrival: EMS Limitations: no limitations History of Present Illness HPI Narrative: 71-year-old male history of COPD/asthma on supplemental 2 L of oxygen 29/10 came in today for evaluation of shortness of breath for the past week, symptoms is been persistent and constant for a week, worsening with exertion or laying supine, temporarily relieved by bronchodilator therapy that he gets home, patient has been having coughing with no sputum production, no fever or chills, no chest pain. Noticed to have low O2 at home down to 86% with 2 L of oxygen at home. Patient had similar presentation in the past required hospitalization. Patient past medical history is significant for anxiety, depression, lung cancer, hypertension, hyperlipidemia. Related Data Home Medications Medication Instructions Recorded Confirmed albuterol sulfate 90 mcg/actuation 2 puff PO Q4H PRN Shortness Of 01/14/20 11/28/21 aerosol inhaler Breath Or Wheezing ipratropium 0.5 mg-albuterol 3 mg 3 ml inhalation Q6H copd 01/14/20 11/28/21 (2.5 mg base)/3 mL nebulization soln budesonide-formoterol HFA 160 2 puff inhalation DAILY 03/14/21 11/28/21 mcg-4.5 mcg/actuation aerosol inhaler (Symbicort) isosorbide mononitrate 30 mg 1 tab PO DAILY 03/14/21 11/28/21 tablet,extended release 24 hr aspirin 81 mg tablet,delayed 81 mg PO DAILY 08/04/21 11/28/21 release calcium carbonate 600 mg-vitamin 1 tab PO DAILY 08/04/21 11/28/21 D3 10 mcg (400 unit) tablet cyanocobalamin (vitamin B-12) 1,000 mcg PO Q OTHER DAY 08/04/21 11/28/21 1,000 mcg tablet lorazepam 0.5 mg tablet 0.5 mg PO DAILY PRN anxiety 08/04/21 11/28/21 azithromycin 500 mg tablet 1 tab PO MOWEFR@0900 11/28/21 11/28/21 cholecalciferol (vitamin D3) 1,250 1,250 mcg PO SA@0900 11/28/21 11/28/21 mcg (50,000 unit) capsule escitalopram oxalate 20 mg tablet 10 mg PO DAILY 11/28/21 11/28/21 glipizide 5 mg tablet 5 mg PO BID 11/28/21 11/28/21 ibuprofen 200 mg tablet (Advil) 200 mg PO Q6H PRN Pain 11/28/21 11/28/21 omeprazole 20 mg capsule,delayed 20 mg PO DAILY@0630 11/28/21 11/28/21 release Previous Rx's Medication Instructions Recorded multivitamin (Daily-Kathleen tablet) 1 tab PO DAILY #90 tabs 05/13/20 atorvastatin 80 mg tablet 80 mg PO BEDTIME #90 tabs 04/19/21 metoprolol tartrate 25 mg tablet 25 mg PO BID #180 tabs 05/12/21 blood-glucose meter (Accu-Chek #1 ea 08/16/21 Donna Plus Meter) blood sugar diagnostic (Accu-Chek #100 ea 08/17/21 Donna Plus test strips) metformin 1,000 mg tablet 1,000 mg PO BID #180 tabs 11/07/21 Allergies Allergy/AdvReac Type Severity Reaction Status Date / Time fluticasone furoate Allergy Intermediate rash Verified 09/12/21 10:38 [From Trelegy Ellipta] vilanterol Allergy Intermediate rash Verified 09/12/21 10:38 [From Trelegy Ellipta] umeclidinium Allergy Unknown hives Verified 09/12/21 10:38 [Incruse Ellipta] Review of Systems Review of Systems: All other systems are reviewed and are negative Constitutional: Reports as per HPI and Reports no additional constitutional complaints Eyes: Reports as per HPI and Reports no additional eye complaints Reports system reviewed and no additional complaints, except as documented Cardiovascular: Reports as per HPI and Reports no additional cardiovascular complaints Respiratory: Reports as per HPI and Reports no additional respiratory complaints Gastrointestinal: Reports as per HPI and Reports no additional gastrointestinal complaints Genitourinary: Reports no additional female genitourinary complaints Musculoskeletal: Reports no additional musculoskeletal complaints Skin/Breast: Reports system reviewed and no additional complaints, except as docu Psychiatric: Reports no additional psychiatric complaints Endocrine: Reports no additional endocrine complaints Hematologic/Lymphatic: Reports no additional hematologic/lymphatic complaints Allergic/Immunologic: Reports no additional allergic/immunologic complaints Reports system reviewed and no additional complaints, except as documented and Reports Abnormal speech present [facility] Past Medical History Medical History Asthma Bacteremia due to Enterococcus COPD, 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 Brother No problems noted. Son No problems noted. Son No problems noted. Daughter No problems noted. Sister No problems noted. Sister No problems noted. Sister No problems noted. Sister No problems noted. Other HTN (hypertension) Social History Social History Household Members: Spouse and Family Household Members Other:: grandson Housing: House Are you a primary managed care liaison to a significant other at home: No Do you presently have visiting nurse or other home services: No Alcohol intake: former Patient Tobacco Use Status: Former Tobacco user Smoked in Last 30 Days: No e-Cigarette/Vaping Use: Never Used Use of substances other than those prescribed or required for medical reasons: No Advance Directives: Yes Advance Directives Information Provided: No Advance Directives on File: No service: No Current occupational status: retired Cognitive needs: No Hearing needs: No Vision needs: No Physical Exam Vital Signs: Vital Signs: Last Vital Signs Temp 98.8 F 11/28/21 12:17 Pulse 87 11/28/21 12:17 Resp 18 11/28/21 12:17 BP 137/70 11/28/21 12:17 Pulse Ox 96 11/28/21 12:17 O2 Del Method 11/28/21 12:17 Oxygen Flow Rate 2 11/28/21 12:17 BMI result Body Mass Index 32.3 Vital signs have been reviewed as appeared to be correct. Blood pressure normal. Heart rate normal. Respiration rate normal. Temperature normal. Oxygen saturation normal. Appearance: Alert. Oriented X3. No acute distress. Head: Normal external exam. Normocephalic. Atraumatic. No [place]addell signs noted. No raccoon eyes noted Eyes: PERRLA. EOMI. Conjunctiva and sclera normal. Eyelids normal. ENT: TM's Normal. Pharynx normal. Uvula midline. Moist mucous membranes. No trismus noted. No drooling noted. No muffled voice noted. Neck: Normal inspection. Neck supple. FROM. No adenopathy. Thyroid Normal. No meningeal signs. No neck mass noted. CVS: Normal heart rate and rhythm. Heart sound normal. No murmurs noted. Pulses normal throughout. Respiratory: No respiratory distress. Painless inspiration. Breath sounds normal. Mild diffuse expiratory wheezing with prolonged expiration.. Chest nontender. No accessory muscle usage noted or decreased air movement noted. Abdomen: Soft and nontender. Bowel sounds normal in all 4 quadrants. No distention noted. No organomegaly noted. No visible injury noted. Back: No CVA tenderness. Full range of motion noted. Skin: Skin warm and dry. Normal skin color. Normal skin turgor. No rashes/lesions/lacerations noted. Extremities: No lower extremity edema. Extremities exhibit normal range of motion. Extremities nontender. Neuro: Oriented X 3. Cranial nerve exam: II-XII are grossly intact No motor deficit. No sensory deficit. Reflexes normal. 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 Will admit the patient for further bronchodilator and respiratory monitoring. MDM - SOB/Dyspnea Medical Records Attestation: I reviewed the patient's medical records. Lab Data Attestation: I reviewed the patient's lab results. Result diagrams: 11/28/21 12:48 11/28/21 13:35 Labs: Lab Results 11/28/21 11/28/21 11/28/21 Range/Units 12:40 12:48 12:48 WBC 6.0 (4.8-10.8) X10*3/uL RBC 4.38 L (4.60-5.80) X10*6/uL Hgb 12.8 L (14.0-18.0) g/dl Hct 41.6 L (42.0-52.0) % MCV 95.0 (80.0-98.0) fL MCH 29.2 (27.0-33.0) pg MCHC 30.8 L (31.0-36.0) g/dl RDW 13.3 (11.0-16.0) % Plt Count 170 (160-400) X10*3/uL MPV 9.7 (9.4-12.4) fL Immature Gran % (Auto) 0.2 (0.0-0.4) % Neut % (Auto) 67.2 (45-73) % Lymph % (Auto) 16.9 L (20-40) % [place] % (Auto) 8.1 (2-11) % Eos % (Auto) 6.8 H (0-4) % Baso % (Auto) 0.8 (0-2) % Lymph # (Auto) 1.0 L (1.2-4.9) X10*3/uL [place] # (Auto) 0.5 (0.1-1.2) X10*3/uL Eos # (Auto) 0.4 (0.0-0.4) X10*3/uL Baso # (Auto) 0.1 (0.0-0.2) X10*3/uL Abs Immat Gran (auto) 0.01 (0.00-0.03) X10*3/uL Absolute Neuts (auto) 4.0 (2.0-8.3) x10*3/uL Absolute Nucleated RBC 0.000 (0.0-0.012) X10*3/uL Nucleated RBC % (auto) 0.0 (0.0-0.2) /100WBC Sodium (135-145) mmol/L Potassium (3.3-5.1) mmol/L Chloride (96-108) mmol/L Carbon Dioxide (22-29) mmol/L Anion Gap (12-20) BUN (9-16) mg/dL Creatinine (0.5-1.4) mg/dL Estim Creat Clear Calc Estimated GFR Random Glucose (60-115) mg/dL Lactic Acid (0.5-2.0) mmol/L Calcium (8.4-10.2) mg/dL Total Bilirubin (0.0-1.0) mg/dL Direct Bilirubin (0.0-0.5) mg/dL AST (5-37) U/L ALT (0-40) U/L Alkaline Phosphatase (39-117) U/L Troponin I High Sens 3.6 (<3.5-35.0) ng/L B-Natriuretic Peptide < 10 (<100) pg/mL Total Protein (6.5-8.0) g/dL Albumin (3.5-5.0) g/dL Lipase (8-78) U/L Urine Color Urine Appearance Urine pH (5.0-8.0) Ur Specific [place] (1.005-1.025) Urine Protein (Neg-Trace) mg/dL Urine Glucose (UA) (Negative) mg/dL Urine Ketones (Negative) mg/dL Urine Blood (Negative) Urine Nitrite (Negative) Ur Leukocyte Esterase (Negative) COVID-19 (LESTER) Negative (Negative) COVID-19 Clin Com See Note 11/28/21 11/28/21 11/28/21 Range/Units 12:48 13:35 14:26 WBC (4.8-10.8) X10*3/uL RBC (4.60-5.80) X10*6/uL Hgb (14.0-18.0) g/dl Hct (42.0-52.0) % MCV (80.0-98.0) fL MCH (27.0-33.0) pg MCHC (31.0-36.0) g/dl RDW (11.0-16.0) % Plt Count (160-400) X10*3/uL MPV (9.4-12.4) fL Immature Gran % (Auto) (0.0-0.4) % Neut % (Auto) (45-73) % Lymph % (Auto) (20-40) % [place] % (Auto) (2-11) % Eos % (Auto) (0-4) % Baso % (Auto) (0-2) % Lymph # (Auto) (1.2-4.9) X10*3/uL [place] # (Auto) (0.1-1.2) X10*3/uL Eos # (Auto) (0.0-0.4) X10*3/uL Baso # (Auto) (0.0-0.2) X10*3/uL Abs Immat Gran (auto) (0.00-0.03) X10*3/uL Absolute Neuts (auto) (2.0-8.3) x10*3/uL Absolute Nucleated RBC (0.0-0.012) X10*3/uL Nucleated RBC % (auto) (0.0-0.2) /100WBC Sodium 141 (135-145) mmol/L Potassium 4.2 (3.3-5.1) mmol/L Chloride 96 (96-108) mmol/L Carbon Dioxide 37 H (22-29) mmol/L Anion Gap 12 (12-20) BUN 9 (9-16) mg/dL Creatinine 0.76 (0.5-1.4) mg/dL Estim Creat Clear Calc 94.0 Estimated GFR > 60 Random Glucose 161 H (60-115) mg/dL Lactic Acid 1.7 (0.5-2.0) mmol/L Calcium 9.3 (8.4-10.2) mg/dL Total Bilirubin 0.3 (0.0-1.0) mg/dL Direct Bilirubin < 0.2 (0.0-0.5) mg/dL AST 24 D (5-37) U/L ALT 24 (0-40) U/L Alkaline Phosphatase 89 (39-117) U/L Troponin I High Sens (<3.5-35.0) ng/L B-Natriuretic Peptide (<100) pg/mL Total Protein 6.9 (6.5-8.0) g/dL Albumin 4.4 (3.5-5.0) g/dL Lipase 23 (8-78) U/L Urine Color Yellow Urine Appearance Clear Urine pH 7.0 (5.0-8.0) Ur Specific [place] 1.015 (1.005-1.025) Urine Protein Negative (Neg-Trace) mg/dL Urine Glucose (UA) 100 H (Negative) mg/dL Urine Ketones Negative (Negative) mg/dL Urine Blood Negative (Negative) Urine Nitrite Negative (Negative) Ur Leukocyte Esterase Negative (Negative) COVID-19 (LESTER) (Negative) COVID-19 Clin Com Imaging Data Chest x-ray: Attestation: I personally reviewed and interpreted this imaging study as follows: Radiologist's impression: 1.? Stable consolidative opacities/of volume loss in the left lung apex. 2.? Chronic interstitial lung markings. 3.? Bibasilar atelectasis. ? ECG Data Attestation: I personally reviewed and interpreted this ECG as follows: Interpretation: Normal sinus rhythm at 84 beats per minute, normal intervals, normal axis deviation, no ST-T changes, no significant change from previous EKG. Discharge Plan Discharge Clinical Impression: Acute exacerbation of chronic obstructive airways disease Patient Disposition: Admitted As Inpatient Prescriptions: No Action multivitamin [Daily-Kathleen] Tablet 1 tab PO DAILY Qty: 90 3RF atorvastatin 80 mg tablet 80 mg PO BEDTIME Qty: 90 3RF metoprolol tartrate 25 mg tablet 25 mg PO BID Qty: 180 3RF (DME) Accu-Chek Donna Plus test strp Strip See Rx Instructions .Route Qty: 100 3RF Rx Instructions: check blood glucose once a day ac metformin 1,000 mg tablet 1,000 mg PO BID Qty: 180 4RF isosorbide mononitrate 30 mg tablet extended release 24 hr 1 tab PO DAILY budesonide-formoterol [Symbicort] 160-4.5 mcg/actuation Hfa Aerosol Inhaler 2 puff INHALATION DAILY azithromycin 500 mg tablet 1 tab PO MOWEFR@0900 escitalopram oxalate 20 mg tablet 10 mg PO DAILY omeprazole 20 mg capsule,delayed release(DR/EC) 20 mg PO DAILY@0630 glipizide 5 mg tablet 5 mg PO BID cholecalciferol (vitamin D3) 1,250 mcg (50,000 unit) capsule 1,250 mcg PO SA@0900 ibuprofen [Advil] 200 mg Tablet 200 mg PO Q6H PRN (Reason: Pain) lorazepam 0.5 mg tablet 0.5 mg PO DAILY PRN (Reason: anxiety) calcium carbonate-vitamin D3 600 mg-10 mcg (400 unit) tablet 1 tab PO DAILY cyanocobalamin (vitamin B-12) 1,000 mcg Tablet 1,000 mcg PO Q OTHER DAY aspirin 81 mg Tablet,Delayed Release (Dr/Ec) 81 mg PO DAILY albuterol sulfate 90 mcg/actuation HFA aerosol inhaler 2 puff PO Q4H PRN (Reason: Shortness Of Breath Or Wheezing) ipratropium-albuterol 0.5 mg-3 mg(2.5 mg base)/3 mL solution for nebulization 3 ml inhalation Q6H (DME) blood-glucose meter [Accu-Chek Donna Plus Meter] Misc See Rx Instructions .Route Qty: 1 0RF Rx Instructions: check blood glucose twice a day ac As directed
[2021-11-28 12:58] LABS: MANUAL DIFF FLAG NO
[2021-11-28 13:00] LABS: Basophils Absolute Auto 0.1 X10*3/uL (0.0-0.2); Basophils Percent Auto 0.8 % (0-2); Eosinophils Absolute Auto 0.4 X10*3/uL (0.0-0.4); Eosinophils Percent Auto 6.8 % (0-4); Hematocrit 41.6 % (42.0-52.0); Hemoglobin 12.8 g/dl (14.0-18.0); Imm Gran Abs Auto 0.01 X10*3/uL (0.00-0.03); Imm Gran Pct Auto 0.2 % (0.0-0.4); Lymphocytes Percent Auto 16.9 % (20-40); Mean Corpuscular HGB Conc 30.8 g/dl (31.0-36.0); Mean Corpuscular Hemoglobin 29.2 pg (27.0-33.0); Mean Platelet Volume 9.7 fL (9.4-12.4); Monocytes Absolute Auto 0.5 X10*3/uL (0.1-1.2); Monocytes Percent Auto 8.1 % (2-11); Neutrophils Percent Auto 67.2 % (45-73); Platelet Count 170 X10*3/uL (160-400); Red Blood Count 4.38 X10*6/uL (4.60-5.80); Red Cell Distribution Width 13.3 % (11.0-16.0)
[2021-11-28] MEDS: methylPREDNISolone Sod Succ 125 MG/2 ML VIAL IVPUSH (13:02)
[2021-11-28] MEDS: Magnesium Sulfate/H2O 2 GM/50 ML PIGGYBACK IV (13:02)
[2021-11-28 13:10] LABS: Lactic Acid 1.7 mmol/L (0.5-2.0)
[2021-11-28 13:14] LABS: COVID-19 Test Negative (Negative)
[2021-11-28 13:47] LABS: B Type Natriuretic Peptide < 10 pg/mL (<100); Troponin-I High Sensitivity 3.6 ng/L (<3.5-35.0)
--- NOTE | 2021-11-28 13:49 | PHA.MEDREC ---
Addendum entered by Nasir Baxter 11/28/21 13:57: RE MED REC Patient also confirmed Azithromycin MOWEFR use Original Note: Pharmacy Consult ? Medication Reconciliation Pharmacy has completed the medication reconciliation. Patient reports being on ASA 81mg, Symbicort, B12 1000mcg every other day, Duoneb, and Lorazepam 0.5mg, No pharmacy claims to back this up, However, spouse (Maxine) confirms and brought in with them a list of medications. Spouse also confirmed metoprolol 25mg BID, which patient could not recall.
[2021-11-28 13:59] LABS: Alanine Aminotransferase 24 U/L (0-40); Albumin Level 4.4 g/dL (3.5-5.0); Alkaline Phosphatase 89 U/L (39-117); Anion Gap 12 (12-20); Aspartate Amino Transferase 24 U/L (5-37); Bilirubin Direct < 0.2 mg/dL (0.0-0.5); Bilirubin Total 0.3 mg/dL (0.0-1.0); Blood Urea Nitrogen 9 mg/dL (9-16); Calcium 9.3 mg/dL (8.4-10.2); Carbon Dioxide 37 mmol/L (22-29); Chloride 96 mmol/L (96-108); Estimated Glomerular Filt Rate > 60; Glucose Random 161 mg/dL (60-115); Lipase 23 U/L (8-78); Potassium 4.2 mmol/L (3.3-5.1); Sodium 141 mmol/L (135-145); Total Protein 6.9 g/dL (6.5-8.0)
[2021-11-28] MEDS: Albuterol/Iprat 2.5/0.5MG 3 ML AMPUL.NEB INHALE ×2 (14:00→19:47)
[2021-11-28] MEDS: Albuterol Sulfate (0.083%) 2.5 MG/3 ML VIAL.NEB 7.5 MG INHALE (14:01)
[2021-11-28 14:36] LABS: Appearance Urine Clear; Color Urine Yellow; Glucose Urine UA 100 mg/dL (Negative); Leukocyte Esterase Urine Negative (Negative); Nitrite Urine Negative (Negative); Specific Gravity - Urine 1.015 (1.005-1.025); Urine Blood Negative (Negative); Urine Ketones Negative (Negative); Urine Protein Negative (Neg-Trace)
[2021-11-28] MEDS: cefTRIAXone sodium 1 GM in 0.9 % Sodium Chloride 50 ML IV (15:02)
[2021-11-28 15:06] VITALS: BP 109/61; PULSE 87; RESP 16; TEMP 37; O2SAT 95
[2021-11-28 16:38] VITALS: BP 109/55; PULSE 100; RESP 17; TEMP 36.9; O2SAT 94
--- NOTE | 2021-11-28 16:45 | P.HPHOSP_ITS ---
History of Present Illness Date of Service: 11/28/21 Attending physician on admission: Kaya Gutierrez Chief Complaint: copd excerebation 71-year-old male with past medical history of asthma, COPD severe, depression, diabetes, hyperlipidemia, generalized anxiety disorder, history of lung cancer status post chemo and radiation 10 years ago as per the patient follows up with Dr. Craig in [place], skin cancer history,hx of Enterococcus bacteremia, also history urinary incontinence-patient came to the hospital because of worsening shortness of breath from 3-4 day duration, has cough with clear sputum. Patient denies any chest pain or fever or nausea or vomiting or abdominal pain or weakness or numbness or blurry vision. Denies any ear or throat pain. Patient says that he has COPD exacerbation 1-2 times/year: Which required hospitalization. He said he had questionable 1 time history of BiPAP use also. Never got intubated for COPD exacerbation. Patient is not vaccinated for COVID. Denies any sick contact or recent travel or any family member with similar symptoms. Lab imaging and EKG reviewed: EKG NSR No leukocytosis, BMP seems fine, troponin negative, BNP in less than 10, chest x-ray? Left lung:Stable consolidative opacities/of volume loss in the left lung which seems ch (please see cta report ). [id number] Review of Systems Review of Systems: Yes all other systems are reviewed and are negative [facility] Medical History Asthma Bacteremia due to Enterococcus COPD, severe Depression due to physical illness Diabetes mellitus with hyperglycemia, without long-term current use of insulin Dyslipidemia Generalized anxiety disorder History of pneumonia Hyperlipemia Lung cancer Skin cancer Urinary incontinence Family History Father Medical history non-contributory Mother Medical history non-contributory Unknown family medical history Lung collapse Brother No problems noted. Brother No problems noted. Son No problems noted. Son No problems noted. Daughter No problems noted. Sister No problems noted. Sister No problems noted. Sister No problems noted. Sister No problems noted. Other HTN (hypertension) Pertinent family history: Elder sister-has COPD. Surgical History History of esophagogastroduodenoscopy (EGD) Hx of colonoscopy Hx of heart artery stent Social History Household Members: Spouse and Family Household Members Other:: grandson Housing: House Are you a primary rn wound care to a significant other at home: No Do you presently have visiting nurse or other home services: No Alcohol intake: former Patient Tobacco Use Status: Former Tobacco user Smoked in Last 30 Days: No e-Cigarette/Vaping Use: Never Used Use of substances other than those prescribed or required for medical reasons: No Advance Directives: Yes Advance Directives Information Provided: No Advance Directives on File: No service: No Current occupational status: retired Cognitive needs: No Hearing needs: No Vision needs: No Meds Allergies Allergy/AdvReac Type Severity Reaction Status Date / Time fluticasone furoate Allergy Intermediate rash Verified 09/12/21 10:38 [From Trelegy Ellipta] vilanterol Allergy Intermediate rash Verified 09/12/21 10:38 [From Trelegy Ellipta] umeclidinium Allergy Unknown hives Verified 09/12/21 10:38 [Incruse Ellipta] Active Medications: Current Medications Albuterol/Ipratropium (Albuterol/Iprat 2.5/0.5mg 3 Ml Ampul.Neb) 3 ml INHALE RQ4H WHILE AWAKE [facility] Albuterol/Ipratropium (Albuterol/Iprat 2.5/0.5mg 3 Ml Ampul.Neb) 3 ml INHALE Q3H PRN PRN Reason: sob Aspirin (Aspirin Enteric Coated 81 Mg Tablet.Dr) 81 mg PO DAILY [facility] Atorvastatin Calcium (Atorvastatin Calcium 80 Mg Tablet) 80 mg PO BEDTIME [facility] Cyanocobalamin (Cyanocobalamin (Vitamin B-12) 1,000 Mcg Tablet) 1,000 mcg PO Q OTHER DAY [facility] Escitalopram Oxalate (Escitalopram Oxalate 10 Mg Tablet) 10 mg PO DAILY [facility] Isosorbide Mononitrate (Isosorbide Mononitrate 30 Mg Tab.Er.24h) 30 mg PO DAILY [facility]; Protocol Lorazepam (Lorazepam 0.5 Mg Tablet) 0.5 mg PO DAILY PRN PRN Reason: anxiety Methylprednisolone Sodium Succinate (Methylprednisolone Sod Succ 40 Mg/Ml Vial) 40 mg IVPUSH Q8H [facility] Metoprolol Tartrate (Metoprolol Tartrate 25 Mg Tablet) 25 mg PO BID [facility]; Protocol Multivitamins/Vitamin C (Multivitamin Tablet) 1 tab PO DAILY [facility] Non-Formulary Medication (Calcium Carbonate-Vitamin D3) 1 tab PO DAILY [facility] Non-Formulary Medication (Cholecalciferol (Vitamin D3)) 1,250 mcg PO SA@0900 [facility] Omeprazole (Omeprazole 20 Mg Capsule.) 20 mg PO DAILY@0630 [facility] Omeprazole (Omeprazole 20 Mg Capsule.) 20 mg PO DAILY@0630 [facility] Pharmacy Consult (Consult Rx Perform Med Rec) 1 each MISCELLANE ONCE PRN PRN Reason: Consult order Sodium Chloride (0.9 % Sodium Chloride Flush 3 Ml Syringe) 3 ml IVFLUSH QSHIFT [facility] Home Medications Medication Instructions Recorded Confirmed Last Taken Type albuterol sulfate 90 mcg/actuation 2 puff PO Q4H PRN Shortness Of 01/14/20 11/28/21 05/27/20 History aerosol inhaler Breath Or Wheezing 0200 ipratropium 0.5 mg-albuterol 3 mg 3 ml inhalation Q6H copd 01/14/20 11/28/21 11/28/21 History (2.5 mg base)/3 mL nebulization soln budesonide-formoterol HFA 160 2 puff inhalation DAILY 03/14/21 11/28/21 11/28/21 History mcg-4.5 mcg/actuation aerosol inhaler (Symbicort) isosorbide mononitrate 30 mg 1 tab PO DAILY 03/14/21 11/28/21 11/28/21 History tablet,extended release 24 hr aspirin 81 mg tablet,delayed 81 mg PO DAILY 08/04/21 11/28/21 11/28/21 History release calcium carbonate 600 mg-vitamin 1 tab PO DAILY 08/04/21 11/28/21 11/28/21 History D3 10 mcg (400 unit) tablet cyanocobalamin (vitamin B-12) 1,000 mcg PO Q OTHER DAY 08/04/21 11/28/21 11/28/21 History 1,000 mcg tablet lorazepam 0.5 mg tablet 0.5 mg PO DAILY PRN anxiety 08/04/21 11/28/21 Unknown History azithromycin 500 mg tablet 1 tab PO MOWEFR@0900 11/28/21 11/28/21 11/27/21 History cholecalciferol (vitamin D3) 1,250 1,250 mcg PO SA@0900 11/28/21 11/28/21 11/25/21 History mcg (50,000 unit) capsule escitalopram oxalate 20 mg tablet 10 mg PO DAILY 11/28/21 11/28/21 11/28/21 History glipizide 5 mg tablet 5 mg PO BID 11/28/21 11/28/21 11/28/21 History ibuprofen 200 mg tablet (Advil) 200 mg PO Q6H PRN Pain 11/28/21 11/28/21 Unknown History omeprazole 20 mg capsule,delayed 20 mg PO DAILY@0630 11/28/21 11/28/21 11/28/21 History release Physical Exam Vital Signs and Narrative: Vital Signs: Last Vital Signs Temp 98.5 F 11/28/21 16:38 Pulse 100 11/28/21 16:38 Resp 17 11/28/21 16:38 BP 109/55 L 11/28/21 16:38 Pulse Ox 94 11/28/21 16:38 O2 Del Method 11/28/21 16:38 O2 Flow Rate 2.5 11/28/21 16:38 Oxygen Flow Rate 2 11/28/21 12:17 BMI result Body Mass Index 32.3 Appearance: Alert.? Oriented X3.?sob.? cvs: rrr, [id number] , no murmur res: air enrty diminshed ,has b/l wheezing. abd: no rebound or guarding ,nt, bs present. ext pulses present. neuro: axo3 , nonfocal. Results Labs CBC and Chem 7: 11/28/21 12:48 11/28/21 13:35 Labs: Laboratory Results - last 24 hr 11/28/21 11/28/21 11/28/21 12:40 12:48 12:48 MCV 95.0 MCH 29.2 MCHC 30.8 L RDW 13.3 Plt Count 170 MPV 9.7 Immature Gran % (Auto) 0.2 Neut % (Auto) 67.2 Lymph % (Auto) 16.9 L [place] % (Auto) 8.1 Eos % (Auto) 6.8 H Baso % (Auto) 0.8 Lymph # (Auto) 1.0 L [place] # (Auto) 0.5 Eos # (Auto) 0.4 Baso # (Auto) 0.1 Abs Immat Gran (auto) 0.01 Absolute Neuts (auto) 4.0 Absolute Nucleated RBC 0.000 Nucleated RBC % (auto) 0.0 Anion Gap Estim Creat Clear Calc Estimated GFR Random Glucose Lactic Acid Calcium Total Bilirubin Direct Bilirubin AST ALT Alkaline Phosphatase B-Natriuretic Peptide < 10 Total Protein Albumin Lipase Urine Color Urine Appearance Urine pH Ur Specific [place] Urine Protein Urine Glucose (UA) Urine Ketones Urine Blood Urine Nitrite Ur Leukocyte Esterase COVID-19 (LESTER) Negative COVID-19 Clin Com See Note 11/28/21 11/28/21 11/28/21 12:48 13:35 14:26 MCV MCH MCHC RDW Plt Count MPV Immature Gran % (Auto) Neut % (Auto) Lymph % (Auto) [place] % (Auto) Eos % (Auto) Baso % (Auto) Lymph # (Auto) [place] # (Auto) Eos # (Auto) Baso # (Auto) Abs Immat Gran (auto) Absolute Neuts (auto) Absolute Nucleated RBC Nucleated RBC % (auto) Anion Gap 12 Estim Creat Clear Calc 94.0 Estimated GFR > 60 Random Glucose 161 H Lactic Acid 1.7 Calcium 9.3 Total Bilirubin 0.3 Direct Bilirubin < 0.2 AST 24 D ALT 24 Alkaline Phosphatase 89 B-Natriuretic Peptide Total Protein 6.9 Albumin 4.4 Lipase 23 Urine Color Yellow Urine Appearance Clear Urine pH 7.0 Ur Specific [place] 1.015 Urine Protein Negative Urine Glucose (UA) 100 H Urine Ketones Negative Urine Blood Negative Urine Nitrite Negative Ur Leukocyte Esterase Negative COVID-19 (LESTER) COVID-19 Clin Com Imaging Radiologist's Impressions: Impressions Chest X-Ray 11/28/21 12:59 IMPRESSION: 1. Stable consolidative opacities/of volume loss in the left lung apex. 2. Chronic interstitial lung markings. 3. Bibasilar atelectasis. Assessment and Plan (1) Acute exacerbation of chronic obstructive airways disease: Status: Acute (2) Diabetes mellitus with hyperglycemia, without long-term current use of insulin: Status: Acute (3) Hyperlipemia: Qualifiers: Hyperlipidemia type: pure hypercholesterolemia Qualified Code(s): E78.00 - Pure hypercholesterolemia, unspecified Status: Acute (4) Acute on chronic respiratory failure with hypoxemia: Status: Acute Plan 71-year-old male with past medical history of asthma, COPD severe, depression, diabetes, hyperlipidemia, generalized anxiety disorder, history of lung cancer status post chemo and radiation 10 years ago as per the patient follows up with Dr. Craig in [place], skin cancer history,hx of Enterococcus bacteremia, also history urinary incontinence. As per the ED physician note patient is sats were in 86% range initially. 1. Acute on chronic hypoxemic/hypercarbic respiratory failure COPD exacerbation Patient is on 2 L home oxygen. PH maintained cough/clear sputum no leucytosis or fevers cxr:? Stable consolidative opacities/of volume loss in the left lung apex.( cta on 07/28-seems similar) Still using short sentences, also significant short of breath even with talking given nebs/steriods -seems slightlyimproving , please repeated ABG if she shortness of breath worsen. Started patient on nebs, steroids, oxygen Follows up with pulm. Dr. Craig in [place]. 2. dm: fs with coverage Hold oral hyperglycemic. 3. htn:continue metoprolol. 4.hx of juancho cancer : follow up withdr lindsay (please see note from 09/12/21): s/p chemo/radiation 5. anxiety/dperession: continue home meds. 6.HLP: continue home meds . dvt prophylax:s/c heparin Considering COPD exacerbation and significant short of breath patient will benefit from 2 midnight stays, above management discussed the patient in detail and he understand and in agreement with the above plan, time spent 70 minute, foot patient full code. Quality Stroke Does the patient have a stroke diagnosis?: No VTE Prior VTE?: No VTE Risk Level:: Medical - moderate - high VTE Device Contraindication: N/A - Device Ordered VTE Drug Contraindication: N/A - Med Ordered
[2021-11-28 19:48] VITALS: PULSE 114; RESP 16; O2SAT 95
[2021-11-28 20:29] LABS: Glucose, Whole Blood 453 mg/dL (60-115)
[2021-11-28] MEDS: Metoprolol Tartrate 25 MG TABLET PO (20:33)
[2021-11-28] MEDS: Atorvastatin Calcium 80 MG TABLET PO (20:34)
[2021-11-28] MEDS: Insulin Lispro 100 UNIT/ML 3 ML VIAL SUBCUT (20:34)
[2021-11-28 20:35] VITALS: BP 122/70; PULSE 116; RESP 20; O2SAT 95
[2021-11-28] MEDS: LORazepam 0.5 MG TABLET PO (21:33)
[2021-11-28 21:50] LABS: Glucose, Whole Blood 407 mg/dL (60-115)
[2021-11-29] VITALS (11 sets, daily range): BP systolic 90–133; BP diastolic 48–72; PULSE 74–102; RESP 14–20; TEMP 36.1–36.6; O2SAT 91–100
--- NOTE | 2021-11-29 00:50 | PC.NURSE ---
pt sitting up comfortably on stretcher. wearing 2L O2 via NC. no current complaints, no respiratory distress. call buck within reach. will continue to monitor
[2021-11-29] MEDS: methylPREDNISolone Sod Succ 40 MG/ML VIAL IVPUSH ×2 (01:05→08:04)
[2021-11-29] MEDS: 0.9 % Sodium Chloride Flush 3 ML SYRINGE IVFLUSH ×4 (01:07→20:00)
[2021-11-29 02:17] LABS: Glucose, Whole Blood 220 mg/dL (60-115)
[2021-11-29] MEDS: Omeprazole 20 MG CAPSULE.DR PO (05:44)
[2021-11-29 07:21] LABS: Glucose, Whole Blood 251 mg/dL (60-115)
[2021-11-29] MEDS: Albuterol/Iprat 2.5/0.5MG 3 ML AMPUL.NEB INHALE ×4 (07:59→20:25)
[2021-11-29] MEDS: Insulin Lispro 100 UNIT/ML 3 ML VIAL SUBCUT ×4 (08:03→19:59)
[2021-11-29] MEDS: Escitalopram Oxalate 10 MG TABLET PO (08:04)
[2021-11-29] MEDS: Multivitamin TABLET 1 TAB PO (08:04)
[2021-11-29] MEDS: Metoprolol Tartrate 25 MG TABLET PO ×2 (08:04→19:59)
[2021-11-29] MEDS: Aspirin Enteric Coated 81 MG TABLET.DR PO (08:04)
[2021-11-29] MEDS: Calcium + Vitamin D 250 MG TABLET 500 MG PO (08:04)
[2021-11-29] MEDS: Isosorbide Mononitrate 30 MG TAB.ER.24H PO (11:20)
[2021-11-29] MEDS: LORazepam 0.5 MG TABLET PO ×2 (11:26→20:18)
--- NOTE | 2021-11-29 13:25 | HO.PM.IMPN ---
Subjective Subjective Date of Service: 11/29/21 Interval History: minimal improvement since admission. Admits to anxiety Review of Systems denies chest pain Admits to shortness of breath with rest/minimal exertion denies nausea vomiting diarrhea Denies fever chills Physical Exam Vital Signs: Vital Signs: Last Vital Signs Temp 97.3 F 11/29/21 04:00 Pulse 74 11/29/21 12:42 Resp 18 11/29/21 12:42 BP 115/58 L 11/29/21 08:07 Pulse Ox 100 11/29/21 08:07 O2 Del Method 11/29/21 08:07 O2 Flow Rate 2 11/29/21 08:07 Oxygen Flow Rate 2 11/28/21 12:17 BMI result Body Mass Index 32.3 Const: Other: no acute distress. Able to speak in full sentences Resp: Other: diminished throughout with scant expiratory wheezes. There are end inspiratory crackles right greater than left base Cardio: Other: no S4; positive S1-S2; no S3 murmurs rubs or gallops GI: Other: soft nontender nondistended with normoactive bowel sounds Extrem: Other: no edema bilaterally Objective Data Active Medications Albuterol/Ipratropium (Albuterol/Iprat 2.5/0.5mg 3 Ml Ampul.Neb) 3 ml INHALE RQ4H WHILE AWAKE [facility] Last Admin: 11/29/21 12:47 Dose: Not Given Documented By: MADI Non-Admin Reason: pt received PRN, scanned by mistake Albuterol/Ipratropium (Albuterol/Iprat 2.5/0.5mg 3 Ml Ampul.Neb) 3 ml INHALE Q3H PRN PRN Reason: sob Last Admin: 11/29/21 12:42 Dose: 3 ml Documented By: MADI Aspirin (Aspirin Enteric Coated 81 Mg Tablet.) 81 mg PO DAILY [facility] Last Admin: 11/29/21 08:04 Dose: 81 mg Documented By: NATHANIEL-RAMSK Atorvastatin Calcium (Atorvastatin Calcium 80 Mg Tablet) 80 mg PO BEDTIME [facility] Last Admin: 11/28/21 20:34 Dose: 80 mg Documented By: COOPEB Calcium Carbonate/Cholecalciferol (Calcium + Vitamin D 250 Mg Tablet) 500 mg PO DAILY [facility] Last Admin: 11/29/21 08:04 Dose: 500 mg Documented By: IMAN Cyanocobalamin (Cyanocobalamin (Vitamin B-12) 1,000 Mcg Tablet) 1,000 mcg PO Q48H [facility] Last Admin: 11/28/21 18:07 Dose: Not Given Documented By: YESIKA Non-Admin Reason: See Note Comments: patient states he took this morning Dextrose (Dextrose 50 % 25 Gm/50 Ml Syringe) 25 gm IVPUSH Q15M PRN; Protocol PRN Reason: per Hypoglycemia Standing Ord. Enoxaparin Sodium (Enoxaparin Sodium 40 Mg/0.4 Ml Syringe) 40 mg SUBCUT Q24H [facility] Last Admin: 11/28/21 18:07 Dose: Not Given Documented By: YESIKA Non-Admin Reason: Patient Refused Escitalopram Oxalate (Escitalopram Oxalate 10 Mg Tablet) 10 mg PO DAILY [facility] Last Admin: 11/29/21 08:04 Dose: 10 mg Documented By: IMAN Glucose (Glucose Gel 15 Gm Gel..Gram.) 15 gm PO Q15M PRN; Protocol PRN Reason: per Hypoglycemia Standing Ord. Insulin Human Lispro (Insulin Lispro 100 Unit/Ml 3 Ml Vial) 0 unit SUBCUT QIDACHS [facility]; Protocol Last Admin: 11/29/21 08:03 Dose: 6 unit Documented By: IMAN Isosorbide Mononitrate (Isosorbide Mononitrate 30 Mg Tab.Er.24h) 30 mg PO DAILY [facility]; Protocol Last Admin: 11/29/21 11:20 Dose: 30 mg Documented By: IMAN Lorazepam (Lorazepam 0.5 Mg Tablet) 0.5 mg PO DAILY PRN PRN Reason: anxiety Last Admin: 11/29/21 11:26 Dose: 0.5 mg Documented By: IMAN Metoprolol Tartrate (Metoprolol Tartrate 25 Mg Tablet) 25 mg PO BID [facility]; Protocol Last Admin: 11/29/21 08:04 Dose: 25 mg Documented By: IMAN Multivitamins/Vitamin C (Multivitamin Tablet) 1 tab PO DAILY [facility] Last Admin: 11/29/21 08:04 Dose: 1 tab Documented By: IMAN Non-Formulary Medication (Cholecalciferol (Vitamin D3)) 1,250 mcg PO SA@0900 [facility] Omeprazole (Omeprazole 20 Mg Capsule.Dr) 20 mg PO DAILY@0630 [facility] Last Admin: 11/29/21 05:44 Dose: 20 mg Documented By: DIONTE Pharmacy Consult (Consult Rx Perform Med Rec) 1 each MISCELLANE ONCE PRN PRN Reason: Consult order Sodium Chloride (0.9 % Sodium Chloride Flush 3 Ml Syringe) 3 ml IVFLUSH QSHIFT [facility] Last Admin: 11/29/21 08:04 Dose: 3 ml Documented By: IMAN Labs CBC & Chem 7: 11/28/21 12:48 11/28/21 13:35 Labs: Laboratory Results - last 24 hr 11/28/21 11/28/21 11/28/21 12:48 13:35 14:26 Anion Gap 12 Estim Creat Clear Calc 94.0 Estimated GFR > 60 POC Glucose Random Glucose 161 H Calcium 9.3 Total Bilirubin 0.3 Direct Bilirubin < 0.2 AST 24 D ALT 24 Alkaline Phosphatase 89 B-Natriuretic Peptide < 10 Total Protein 6.9 Albumin 4.4 Lipase 23 Urine Color Yellow Urine Appearance Clear Urine pH 7.0 Ur Specific [place] 1.015 Urine Protein Negative Urine Glucose (UA) 100 H Urine Ketones Negative Urine Blood Negative Urine Nitrite Negative Ur Leukocyte Esterase Negative 11/28/21 11/28/21 11/29/21 20:26 21:38 02:13 Anion Gap Estim Creat Clear Calc Estimated GFR POC Glucose 453 H* 407 H* 220 H Random Glucose Calcium Total Bilirubin Direct Bilirubin AST ALT Alkaline Phosphatase B-Natriuretic Peptide Total Protein Albumin Lipase Urine Color Urine Appearance Urine pH Ur Specific [place] Urine Protein Urine Glucose (UA) Urine Ketones Urine Blood Urine Nitrite Ur Leukocyte Esterase 11/29/21 07:13 Anion Gap Estim Creat Clear Calc Estimated GFR POC Glucose 251 H Random Glucose Calcium Total Bilirubin Direct Bilirubin AST ALT Alkaline Phosphatase B-Natriuretic Peptide Total Protein Albumin Lipase Urine Color Urine Appearance Urine pH Ur Specific [place] Urine Protein Urine Glucose (UA) Urine Ketones Urine Blood Urine Nitrite Ur Leukocyte Esterase Assessment and Plan (1) Acute on chronic respiratory failure with hypoxemia: Status: Acute (2) Acute exacerbation of chronic obstructive airways disease: Status: Acute (3) Diabetes mellitus with hyperglycemia, without long-term current use of insulin: Status: Acute (4) HTN (hypertension): Status: Acute Plan 71-year-old male with past medical history of asthma, COPD severe, depression, diabetes, hyperlipidemia, generalized anxiety disorder, history of lung cancer status post chemo and radiation 10 years ago as per the patient follows up with Dr. Craig in [place], skin cancer history,hx of Enterococcus bacteremia, also history urinary incontinence. presents with worsening shortness of breath over the last several days consistent with COPD exacerbation 1. Acute on chronic hypoxemic/hypercarbic respiratory failure COPD exacerbation - ceftriaxone/ doxycycline - methylprednisolone IV q.6 hours - DuoNebs q.4 hours while awake - supplemental O2 2.DMII - acceptable control on current therapies - continue metformin - lispro sliding scale (correctional) 3.HTN - acceptable control on current therapies - adjust as indicated 4.Anxiety - continue home therapies full code Lovenox Will require ongoing hospitalization for IV antibiotics/ steroids to treat COPD exacerbation Quality Stroke Does the patient have a stroke diagnosis?: No VTE Prior VTE?: No VTE Risk Level:: Medical - moderate - high VTE Device Contraindication: N/A - Device Ordered VTE Drug Contraindication: N/A - Med Ordered
[2021-11-29 13:35] LABS: Glucose, Whole Blood 243 mg/dL (60-115)
[2021-11-29] MEDS: methylPREDNISolone Sod Succ 125 MG/2 ML VIAL 60 MG IVPUSH ×2 (15:21→19:58)
--- NOTE | 2021-11-29 15:44 | MHC.CM.PN ---
IMM 11/29/21, EMR REVIEWED, PT ADMITTED W/COPD EXACERBATION, PT IS A&0 REPORTS HE LIVES W/ AND [place], PT IS INDEPENDENT W/ALL CARE, HAS A NEBULIZER AND HOME O2 W/LINCARE, CPAP AT HOME THAT HE DOES NOT USE D/T NOT BEING COMFORTABLE AND NO OTHER DME OR HOME SERVICES, PT IS NOT HOME BOUND AND DRIVES, PT VERIFIES PCP ON FILE IS CORRECT, DENIES BEING VACCINATED FOR COVID AND REPORTS HIS HCP IS HIS AND HAS DOCUMENTS AT HOME, COPY REQUESTED. ANTIC D/C HOME NO SERVICES W/FAMILY FOR TRANSPORT
[2021-11-29 16:21] LABS: Glucose, Whole Blood 327 mg/dL (60-115)
[2021-11-29] MEDS: metFORMIN HCl 1,000 MG TABLET 1000 MG PO (16:38)
[2021-11-29 19:51] LABS: Glucose, Whole Blood 331 mg/dL (60-115)
[2021-11-29] MEDS: Atorvastatin Calcium 80 MG TABLET PO (19:59)
[2021-11-30] VITALS (8 sets, daily range): BP systolic 117–134; BP diastolic 58–66; PULSE 74–108; RESP 15–20; TEMP 36.2–36.7; O2SAT 93–98
[2021-11-30] MEDS: methylPREDNISolone Sod Succ 125 MG/2 ML VIAL 60 MG IVPUSH ×4 (02:00→20:06)
[2021-11-30 06:06] LABS: Hemoglobin 11.6 g/dl (14.0-18.0); Lymphocytes Absolute Auto 0.6 X10*3/uL (1.2-4.9); Mean Corpuscular Hemoglobin 29.7 pg (27.0-33.0); Mean Platelet Volume 10.8 fL (9.4-12.4); PLT CLUMP 1; SCAN SMEAR FLAG 1
[2021-11-30 06:08] LABS: Basophils Percent Auto 0.1 % (0-2); Hematocrit 36.2 % (42.0-52.0); Imm Gran Abs Auto 0.04 X10*3/uL (0.00-0.03); Imm Gran Pct Auto 0.5 % (0.0-0.4); Mean Corpuscular Volume 92.8 fL (80.0-98.0); Monocytes Absolute Auto 0.3 X10*3/uL (0.1-1.2); Monocytes Percent Auto 3.2 % (2-11); Neutrophils Absolute Auto 7.3 x10*3/uL (2.0-8.3); Neutrophils Percent Auto 89.2 % (45-73); Red Cell Distribution Width 13.4 % (11.0-16.0); White Blood Count 8.2 X10*3/uL (4.8-10.8)
[2021-11-30] MEDS: Omeprazole 20 MG CAPSULE.DR PO (06:16)
[2021-11-30 06:17] LABS: MANUAL DIFF FLAG NO
[2021-11-30 06:24] LABS: Platelet Count 188 X10*3/uL (160-400)
[2021-11-30 06:48] LABS: Alanine Aminotransferase 22 U/L (0-40); Alkaline Phosphatase 77 U/L (39-117); Anion Gap 18 (12-20); Aspartate Amino Transferase 23 U/L (5-37); Bilirubin Total 0.3 mg/dL (0.0-1.0); Blood Urea Nitrogen 18 mg/dL (9-16); Calcium 9.1 mg/dL (8.4-10.2); Carbon Dioxide 29 mmol/L (22-29); Chloride 95 mmol/L (96-108); Creatinine Clr Calc Pharmacy 87.1; Estimated Glomerular Filt Rate > 60; Glucose Fasting 276 mg/dL (60-99); Potassium 4.6 mmol/L (3.3-5.1); Sodium 137 mmol/L (135-145); Total Protein 6.6 g/dL (6.5-8.0)
[2021-11-30 07:21] LABS: Glucose, Whole Blood 258 mg/dL (60-115)
[2021-11-30] MEDS: Calcium + Vitamin D 250 MG TABLET 500 MG PO (07:37)
[2021-11-30] MEDS: Metoprolol Tartrate 25 MG TABLET PO ×2 (07:37→20:05)
[2021-11-30] MEDS: Multivitamin TABLET 1 TAB PO (07:37)
[2021-11-30] MEDS: metFORMIN HCl 1,000 MG TABLET 1000 MG PO ×4 (07:37→20:05)
[2021-11-30] MEDS: Escitalopram Oxalate 10 MG TABLET PO (07:37)
[2021-11-30] MEDS: Isosorbide Mononitrate 30 MG TAB.ER.24H PO (07:37)
[2021-11-30] MEDS: Aspirin Enteric Coated 81 MG TABLET.DR PO (07:37)
[2021-11-30] MEDS: Insulin Lispro 100 UNIT/ML 3 ML VIAL SUBCUT ×4 (07:38→20:16)
[2021-11-30] MEDS: 0.9 % Sodium Chloride Flush 3 ML SYRINGE IVFLUSH ×3 (07:40→23:32)
[2021-11-30] MEDS: Albuterol/Iprat 2.5/0.5MG 3 ML AMPUL.NEB INHALE ×3 (08:15→15:07)
[2021-11-30 11:15] LABS: Glucose, Whole Blood 290 mg/dL (60-115)
--- NOTE | 2021-11-30 11:43 | P.CDIC_ITS ---
CDI Concurrent Query Documentation Clarification: PHYSICIAN'S DOCUMENTATION REQUEST Date of Query: 11/30/21 1143 Patient Name: Fitz Reed Admit Date: 11/28/21 Dear Doctor, Please review the following and provide your response in the progress notes. Clinical Indicators: The diagnosis of asthma was documented in the record on 11/29/21. Additional clinical indicators from the record include: Risk Factors/Clinical Indicators/Treatments PMH: Asthma Based on the above, please clarify in the Progress Notes further specificity regarding the type and acuity of the asthma: Type: * Mild intermittent - less than 2x/week * Mild persistent - more than 2x/week but not daily * Moderate persistent - daily and may restrict physical activity * Severe persistent - throughout the day with frequent attacks, limiting activities * Exercise induced * Other ? please specify * Unable to determine Acuity: * With acute exacerbation * With status asthmaticus * Uncomplicated * Unable to determine Use of terms such as suspected, likely, concern for, or probable (associated with a specific diagnosis that is being evaluated, monitored, or treated as if it exists) are acceptable and can be coded in the inpatient setting, when documented at the time of discharge. Thank you, Dianne Vazquez RN Extension: [phone] Please use your independent medical judgment in providing your response. THIS QUERY IS PART OF THE PERMANENT MEDICAL RECORD Provider Response: Other Other Diagnosis: moderate persistent with exacerbation
--- NOTE | 2021-11-30 11:43 | MHC.CDI.CONC ---
CDI Concurrent Query Documentation Clarification: PHYSICIAN'S DOCUMENTATION REQUEST Date of Query: 11/30/21 1143 Patient Name: Fitz Reed Admit Date: 11/28/21 Dear Doctor, Please review the following and provide your response in the progress notes. Clinical Indicators: The diagnosis of asthma was documented in the record on 11/29/21. Additional clinical indicators from the record include: Risk Factors/Clinical Indicators/Treatments PMH: Asthma Based on the above, please clarify in the Progress Notes further specificity regarding the type and acuity of the asthma: Type: Mild intermittent - less than 2x/week Mild persistent - more than 2x/week but not daily Moderate persistent - daily and may restrict physical activity Severe persistent - throughout the day with frequent attacks, limiting activities Exercise induced Other ? please specify Unable to determine Acuity: With acute exacerbation With status asthmaticus Uncomplicated Unable to determine Use of terms such as suspected, likely, concern for, or probable (associated with a specific diagnosis that is being evaluated, monitored, or treated as if it exists) are acceptable and can be coded in the inpatient setting, when documented at the time of discharge. Thank you, Dianne Vazquez RN Extension: [phone] Please use your independent medical judgment in providing your response. THIS QUERY IS PART OF THE PERMANENT MEDICAL RECORD Provider Response: Other Other Diagnosis: moderate persistent with exacerbation
--- NOTE | 2021-11-30 12:06 | HO.PM.IMPN ---
Subjective Subjective Date of Service: 11/30/21 Interval History: less anxious today. States breathing somewhat improved Review of Systems denies chest pain Admits to shortness of breath with rest that has improved Denies nausea vomiting diarrhea Denies fever chills Physical Exam Vital Signs: Vital Signs: Last Vital Signs Temp 97.4 F 11/30/21 07:16 Pulse 83 11/30/21 11:05 Resp 16 11/30/21 11:05 BP 123/66 11/30/21 07:16 Pulse Ox 93 11/30/21 07:16 O2 Del Method 11/30/21 07:16 O2 Flow Rate 2.0 11/30/21 07:16 Oxygen Flow Rate 2 11/28/21 12:17 BMI result Body Mass Index 32.3 Const: Other: no acute distress. Able to speak in full sentences Resp: Other: diminished throughout; wheezes have cleared There are end inspiratory crackles right greater than left base Cardio: Other: no S4; positive S1-S2; no S3 murmurs rubs or gallops GI: Other: soft nontender nondistended with normoactive bowel sounds Extrem: Other: no edema bilaterally Objective Data Active Medications Albuterol/Ipratropium (Albuterol/Iprat 2.5/0.5mg 3 Ml Ampul.Neb) 3 ml INHALE RQ4H WHILE AWAKE [facility] Last Admin: 11/30/21 11:03 Dose: 3 ml Documented By: ROLY Albuterol/Ipratropium (Albuterol/Iprat 2.5/0.5mg 3 Ml Ampul.Neb) 3 ml INHALE Q3H PRN PRN Reason: sob Last Admin: 11/29/21 12:42 Dose: 3 ml Documented By: MADI Aspirin (Aspirin Enteric Coated 81 Mg Tablet.) 81 mg PO DAILY [facility] Last Admin: 11/30/21 07:37 Dose: 81 mg Documented By: STEPHANIE Atorvastatin Calcium (Atorvastatin Calcium 80 Mg Tablet) 80 mg PO BEDTIME [facility] Last Admin: 11/29/21 19:59 Dose: 80 mg Documented By: ALEX Calcium Carbonate/Cholecalciferol (Calcium + Vitamin D 250 Mg Tablet) 500 mg PO DAILY [facility] Last Admin: 11/30/21 07:37 Dose: 500 mg Documented By: STEPHANIE Cyanocobalamin (Cyanocobalamin (Vitamin B-12) 1,000 Mcg Tablet) 1,000 mcg PO Q48H [facility] Last Admin: 11/28/21 18:07 Dose: Not Given Documented By: COOPEB Non-Admin Reason: See Note Comments: patient states he took this morning Dextrose (Dextrose 50 % 25 Gm/50 Ml Syringe) 25 gm IVPUSH Q15M PRN; Protocol PRN Reason: per Hypoglycemia Standing Ord. Enoxaparin Sodium (Enoxaparin Sodium 40 Mg/0.4 Ml Syringe) 40 mg SUBCUT Q24H [facility] Last Admin: 11/29/21 16:42 Dose: Not Given Documented By: DIAZDEM Non-Admin Reason: Patient Refused Escitalopram Oxalate (Escitalopram Oxalate 10 Mg Tablet) 10 mg PO DAILY [facility] Last Admin: 11/30/21 07:37 Dose: 10 mg Documented By: STEPHANIE Glucose (Glucose Gel 15 Gm Gel..Gram.) 15 gm PO Q15M PRN; Protocol PRN Reason: per Hypoglycemia Standing Ord. Insulin Human Lispro (Insulin Lispro 100 Unit/Ml 3 Ml Vial) 0 unit SUBCUT QIDACHS [facility]; Protocol Last Admin: 11/30/21 11:37 Dose: 6 unit Documented By: STEPHANIE Isosorbide Mononitrate (Isosorbide Mononitrate 30 Mg Tab.Er.24h) 30 mg PO DAILY [facility]; Protocol Last Admin: 11/30/21 07:37 Dose: 30 mg Documented By: STEPHANIE Lorazepam (Lorazepam 0.5 Mg Tablet) 0.5 mg PO DAILY PRN PRN Reason: anxiety Last Admin: 11/29/21 11:26 Dose: 0.5 mg Documented By: NATHANIEL-RAMSK Metformin HCl (Metformin Hcl 1,000 Mg Tablet) 1,000 mg PO BIDWM [facility] Last Admin: 11/30/21 07:37 Dose: 1,000 mg Documented By: STEPHANIE Methylprednisolone Sodium Succinate (Methylprednisolone Sod Succ 125 Mg/2 Ml Vial) 60 mg IVPUSH Q6H [facility] Last Admin: 11/30/21 07:38 Dose: 60 mg Documented By: STEPHANIE Metoprolol Tartrate (Metoprolol Tartrate 25 Mg Tablet) 25 mg PO BID [facility]; Protocol Last Admin: 11/30/21 07:37 Dose: 25 mg Documented By: STEPHANIE Multivitamins/Vitamin C (Multivitamin Tablet) 1 tab PO DAILY [facility] Last Admin: 11/30/21 07:37 Dose: 1 tab Documented By: STEPHANIE Non-Formulary Medication (Cholecalciferol (Vitamin D3)) 1,250 mcg PO SA@0900 [facility] Omeprazole (Omeprazole 20 Mg Capsule.) 20 mg PO DAILY@0630 [facility] Last Admin: 11/30/21 06:16 Dose: 20 mg Documented By: ALEX Pharmacy Consult (Consult Rx Perform Med Rec) 1 each MISCELLANE ONCE PRN PRN Reason: Consult order Sodium Chloride (0.9 % Sodium Chloride Flush 3 Ml Syringe) 3 ml IVFLUSH QSHIFT [facility] Last Admin: 11/30/21 07:40 Dose: 3 ml Documented By: STEPHANIE Labs CBC & Chem 7: 11/30/21 05:25 11/30/21 05:25 Labs: Laboratory Results - last 24 hr 11/29/21 11/29/21 11/29/21 13:28 16:15 19:45 MCV MCH MCHC RDW Plt Count MPV Immature Gran % (Auto) Neut % (Auto) Lymph % (Auto) [place] % (Auto) Eos % (Auto) Baso % (Auto) Lymph # (Auto) [place] # (Auto) Eos # (Auto) Baso # (Auto) Abs Immat Gran (auto) Absolute Neuts (auto) Absolute Nucleated RBC Nucleated RBC % (auto) Anion Gap Estim Creat Clear Calc Estimated GFR POC Glucose 243 H 327 H 331 H Fasting Glucose Calcium Total Bilirubin AST ALT Alkaline Phosphatase Total Protein Albumin 11/30/21 11/30/21 11/30/21 05:25 05:25 07:15 MCV 92.8 MCH 29.7 MCHC 32.0 RDW 13.4 Plt Count 188 MPV 10.8 Immature Gran % (Auto) 0.5 H Neut % (Auto) 89.2 H Lymph % (Auto) 7.0 L [place] % (Auto) 3.2 Eos % (Auto) 0.0 Baso % (Auto) 0.1 Lymph # (Auto) 0.6 L [place] # (Auto) 0.3 Eos # (Auto) 0.0 Baso # (Auto) 0.0 Abs Immat Gran (auto) 0.04 H Absolute Neuts (auto) 7.3 Absolute Nucleated RBC 0.000 Nucleated RBC % (auto) 0.0 Anion Gap 18 Estim Creat Clear Calc 87.1 Estimated GFR > 60 POC Glucose 258 H Fasting Glucose 276 H Calcium 9.1 Total Bilirubin 0.3 AST 23 ALT 22 Alkaline Phosphatase 77 Total Protein 6.6 Albumin 4.0 11/30/21 11:11 MCV MCH MCHC RDW Plt Count MPV Immature Gran % (Auto) Neut % (Auto) Lymph % (Auto) [place] % (Auto) Eos % (Auto) Baso % (Auto) Lymph # (Auto) [place] # (Auto) Eos # (Auto) Baso # (Auto) Abs Immat Gran (auto) Absolute Neuts (auto) Absolute Nucleated RBC Nucleated RBC % (auto) Anion Gap Estim Creat Clear Calc Estimated GFR POC Glucose 290 H Fasting Glucose Calcium Total Bilirubin AST ALT Alkaline Phosphatase Total Protein Albumin Microbiology Microbiology Results: Microbiology 11/28/21 13:09 Blood Culture - Preliminary Blood - Venous No growth after 24 hours. 11/28/21 12:48 Blood Culture - Preliminary Blood - Venous No growth after 24 hours. Assessment and Plan (1) Acute on chronic respiratory failure with hypoxemia: Status: Acute (2) Acute exacerbation of chronic obstructive airways disease: Status: Acute (3) Diabetes mellitus with hyperglycemia, without long-term current use of insulin: Status: Acute (4) HTN (hypertension): Status: Acute Plan 71-year-old male with past medical history of asthma, COPD severe, depression, diabetes, hyperlipidemia, generalized anxiety disorder, history of lung cancer status post chemo and radiation 10 years ago as per the patient follows up with Dr. Craig in [place], skin cancer history,hx of Enterococcus bacteremia, also history urinary incontinence. presents with worsening shortness of breath over the last several days consistent with COPD exacerbation 1. Acute on chronic hypoxemic/hypercarbic respiratory failure COPD exacerbation... improving - ceftriaxone/ doxycycline(2) - methylprednisolone IV q.6 hours - DuoNebs q.4 hours while awake - supplemental O2 2.DMII - acceptable control on current therapies - add back metformin/ glipizide - lispro sliding scale (correctional) 3.HTN - acceptable control on current therapies - adjust as indicated 4.Anxiety - continue home therapies full code Lovenox Will require ongoing hospitalization for IV antibiotics/ steroids to treat COPD exacerbation Quality Stroke Does the patient have a stroke diagnosis?: No VTE Prior VTE?: No VTE Risk Level:: Medical - moderate - high VTE Device Contraindication: N/A - Device Ordered VTE Drug Contraindication: N/A - Med Ordered
[2021-11-30] MEDS: glipiZIDE 5 MG TABLET PO ×2 (12:50→20:05)
[2021-11-30 15:40] LABS: Glucose, Whole Blood 264 mg/dL (60-115)
[2021-11-30] MEDS: Cyanocobalamin (Vitamin B-12) 1,000 MCG TABLET 1000 MCG PO (16:29)
[2021-11-30] MEDS: guaiFENesin LA 600 MG TAB.ER.12H PO (20:05)
[2021-11-30] MEDS: Atorvastatin Calcium 80 MG TABLET PO (20:05)
[2021-11-30] MEDS: LORazepam 0.5 MG TABLET PO (20:05)
[2021-11-30 20:07] LABS: Glucose, Whole Blood 191 mg/dL (60-115)
[2021-12-01] VITALS (8 sets, daily range): BP systolic 113–139; BP diastolic 63–74; PULSE 71–89; RESP 16–20; TEMP 36.3–36.6; O2SAT 95–98
[2021-12-01] MEDS: methylPREDNISolone Sod Succ 125 MG/2 ML VIAL 60 MG IVPUSH ×4 (01:31→19:34)
[2021-12-01] MEDS: Omeprazole 20 MG CAPSULE.DR PO (06:07)
[2021-12-01 06:29] LABS: MANUAL DIFF FLAG NO
[2021-12-01 06:32] LABS: Basophils Percent Auto 0.1 % (0-2); Hematocrit 37.4 % (42.0-52.0); Hemoglobin 11.5 g/dl (14.0-18.0); Imm Gran Abs Auto 0.06 X10*3/uL (0.00-0.03); Imm Gran Pct Auto 0.7 % (0.0-0.4); Lymphocytes Absolute Auto 0.6 X10*3/uL (1.2-4.9); Lymphocytes Percent Auto 7.3 % (20-40); Mean Corpuscular HGB Conc 30.7 g/dl (31.0-36.0); Mean Corpuscular Hemoglobin 29.2 pg (27.0-33.0); Mean Corpuscular Volume 94.9 fL (80.0-98.0); Mean Platelet Volume 10.4 fL (9.4-12.4); Monocytes Absolute Auto 0.3 X10*3/uL (0.1-1.2); Monocytes Percent Auto 3.1 % (2-11); Neutrophils Absolute Auto 7.6 x10*3/uL (2.0-8.3); Neutrophils Percent Auto 88.8 % (45-73); Platelet Count 197 X10*3/uL (160-400); Red Blood Count 3.94 X10*6/uL (4.60-5.80); Red Cell Distribution Width 13.4 % (11.0-16.0); White Blood Count 8.6 X10*3/uL (4.8-10.8)
[2021-12-01 07:08] LABS: Alanine Aminotransferase 22 U/L (0-40); Alkaline Phosphatase 71 U/L (39-117); Anion Gap 18 (12-20); Aspartate Amino Transferase 20 U/L (5-37); Bilirubin Total 0.3 mg/dL (0.0-1.0); Blood Urea Nitrogen 24 mg/dL (9-16); Calcium 9.3 mg/dL (8.4-10.2); Carbon Dioxide 32 mmol/L (22-29); Chloride 95 mmol/L (96-108); Creatinine Clr Calc Pharmacy 82.1; Estimated Glomerular Filt Rate > 60; Glucose Fasting 252 mg/dL (60-99); Potassium 4.9 mmol/L (3.3-5.1); Sodium 140 mmol/L (135-145); Total Protein 6.4 g/dL (6.5-8.0)
[2021-12-01 07:37] LABS: Glucose, Whole Blood 225 mg/dL (60-115)
[2021-12-01] MEDS: metFORMIN HCl 1,000 MG TABLET 1000 MG PO ×3 (07:55→21:06)
[2021-12-01] MEDS: guaiFENesin LA 600 MG TAB.ER.12H PO ×2 (07:55→19:33)
[2021-12-01] MEDS: Calcium + Vitamin D 250 MG TABLET 500 MG PO (07:55)
[2021-12-01] MEDS: Escitalopram Oxalate 10 MG TABLET PO (07:56)
[2021-12-01] MEDS: Multivitamin TABLET 1 TAB PO (07:56)
[2021-12-01] MEDS: Metoprolol Tartrate 25 MG TABLET PO ×2 (07:56→19:34)
[2021-12-01] MEDS: Isosorbide Mononitrate 30 MG TAB.ER.24H PO (07:56)
[2021-12-01] MEDS: Aspirin Enteric Coated 81 MG TABLET.DR PO (07:57)
[2021-12-01] MEDS: Insulin Lispro 100 UNIT/ML 3 ML VIAL SUBCUT ×4 (07:57→21:06)
[2021-12-01] MEDS: glipiZIDE 5 MG TABLET PO ×2 (07:57→19:34)
[2021-12-01] MEDS: 0.9 % Sodium Chloride Flush 3 ML SYRINGE IVFLUSH ×3 (07:58→19:35)
--- NOTE | 2021-12-01 10:59 | HO.PM.IMPN ---
Subjective Subjective Date of Service: 12/01/21 Interval History: episode of feeling like he was choking overnight; improved this morning Review of Systems denies chest pain Admits to shortness of breath with rest that has improved Denies nausea vomiting diarrhea Denies fever chills Physical Exam Vital Signs: Vital Signs: Last Vital Signs Temp 97.6 F 12/01/21 07:33 Pulse 71 12/01/21 08:47 Resp 16 12/01/21 08:47 BP 139/74 12/01/21 07:33 Pulse Ox 97 12/01/21 07:33 O2 Del Method 12/01/21 07:33 O2 Flow Rate 2.0 12/01/21 07:33 Oxygen Flow Rate 2 11/28/21 12:17 BMI result Body Mass Index 32.3 Const: Other: no acute distress. Able to speak in full sentences Resp: Other: diminished throughout; wheezes have cleared There are end inspiratory crackles right greater than left base Cardio: Other: no S4; positive S1-S2; no S3 murmurs rubs or gallops GI: Other: soft nontender nondistended with normoactive bowel sounds Extrem: Other: no edema bilaterally Objective Data Active Medications Aspirin (Aspirin Enteric Coated 81 Mg Tablet.) 81 mg PO DAILY [facility] Last Admin: 12/01/21 07:57 Dose: 81 mg Documented By: NELLY Atorvastatin Calcium (Atorvastatin Calcium 80 Mg Tablet) 80 mg PO BEDTIME [facility] Last Admin: 11/30/21 20:05 Dose: 80 mg Documented By: ALEX Calcium Carbonate/Cholecalciferol (Calcium + Vitamin D 250 Mg Tablet) 500 mg PO DAILY [facility] Last Admin: 12/01/21 07:55 Dose: 500 mg Documented By: NELLY Cyanocobalamin (Cyanocobalamin (Vitamin B-12) 1,000 Mcg Tablet) 1,000 mcg PO Q48H [facility] Last Admin: 11/30/21 16:29 Dose: 1,000 mcg Documented By: DABA Dextrose (Dextrose 50 % 25 Gm/50 Ml Syringe) 25 gm IVPUSH Q15M PRN; Protocol PRN Reason: per Hypoglycemia Standing Ord. Enoxaparin Sodium (Enoxaparin Sodium 40 Mg/0.4 Ml Syringe) 40 mg SUBCUT Q24H [facility] Last Admin: 11/30/21 16:24 Dose: Not Given Documented By: STEPHANIE Non-Admin Reason: Patient Refused Escitalopram Oxalate (Escitalopram Oxalate 10 Mg Tablet) 10 mg PO DAILY [facility] Last Admin: 12/01/21 07:56 Dose: 10 mg Documented By: NELLY Glipizide (Glipizide 5 Mg Tablet) 5 mg PO BID [facility] Last Admin: 12/01/21 07:57 Dose: 5 mg Documented By: NELLY Glucose (Glucose Gel 15 Gm Gel..Gram.) 15 gm PO Q15M PRN; Protocol PRN Reason: per Hypoglycemia Standing Ord. Guaifenesin (Guaifenesin La 600 Mg Tab.Er.12h) 600 mg PO BID [facility] Last Admin: 12/01/21 07:55 Dose: 600 mg Documented By: NELLY Insulin Human Lispro (Insulin Lispro 100 Unit/Ml 3 Ml Vial) 0 unit SUBCUT QIDACHS [facility]; Protocol Last Admin: 12/01/21 07:57 Dose: 4 unit Documented By: NELLY Isosorbide Mononitrate (Isosorbide Mononitrate 30 Mg Tab.Er.24h) 30 mg PO DAILY [facility]; Protocol Last Admin: 12/01/21 07:56 Dose: 30 mg Documented By: NELLY Levalbuterol HCl (Levalbuterol Hcl 1.25 Mg/0.5 Ml Vial.Neb) 1.25 mg INHALE Q3H PRN PRN Reason: Wheezing Last Admin: 12/01/21 08:45 Dose: 1.25 mg Documented By: ROLY Lorazepam (Lorazepam 0.5 Mg Tablet) 0.5 mg PO DAILY PRN PRN Reason: anxiety Last Admin: 11/30/21 20:05 Dose: 0.5 mg Documented By: ALEX Metformin HCl (Metformin Hcl 1,000 Mg Tablet) 1,000 mg PO BIDWM [facility] Last Admin: 12/01/21 07:55 Dose: 1,000 mg Documented By: NELLY Metformin HCl (Metformin Hcl 1,000 Mg Tablet) 1,000 mg PO BID [facility] Last Admin: 12/01/21 08:40 Dose: Not Given Documented By: NELLY Non-Admin Reason: Duplicate Order Methylprednisolone Sodium Succinate (Methylprednisolone Sod Succ 125 Mg/2 Ml Vial) 60 mg IVPUSH Q6H [facility] Last Admin: 12/01/21 07:57 Dose: 60 mg Documented By: NELLY Metoprolol Tartrate (Metoprolol Tartrate 25 Mg Tablet) 25 mg PO BID [facility]; Protocol Last Admin: 12/01/21 07:56 Dose: 25 mg Documented By: NELLY Multivitamins/Vitamin C (Multivitamin Tablet) 1 tab PO DAILY [facility] Last Admin: 12/01/21 07:56 Dose: 1 tab Documented By: NELLY Non-Formulary Medication (Cholecalciferol (Vitamin D3)) 1,250 mcg PO SA@0900 [facility] Omeprazole (Omeprazole 20 Mg Capsule.) 20 mg PO DAILY@0630 [facility] Last Admin: 12/01/21 06:07 Dose: 20 mg Documented By: CHERYLE Pharmacy Consult (Consult Rx Perform Med Rec) 1 each MISCELLANE ONCE PRN PRN Reason: Consult order Sodium Chloride (0.9 % Sodium Chloride Flush 3 Ml Syringe) 3 ml IVFLUSH QSHIFT [facility] Last Admin: 12/01/21 07:58 Dose: 3 ml Documented By: NELLY Labs CBC & Chem 7: 12/01/21 05:25 12/01/21 05:25 Labs: Laboratory Results - last 24 hr 11/30/21 11/30/21 11/30/21 11:11 15:24 19:55 MCV MCH MCHC RDW Plt Count MPV Immature Gran % (Auto) Neut % (Auto) Lymph % (Auto) [place] % (Auto) Eos % (Auto) Baso % (Auto) Lymph # (Auto) [place] # (Auto) Eos # (Auto) Baso # (Auto) Abs Immat Gran (auto) Absolute Neuts (auto) Absolute Nucleated RBC Nucleated RBC % (auto) Anion Gap Estim Creat Clear Calc Estimated GFR POC Glucose 290 H 264 H 191 H Fasting Glucose Calcium Total Bilirubin AST ALT Alkaline Phosphatase Total Protein Albumin 12/01/21 12/01/21 12/01/21 05:25 05:25 07:31 MCV 94.9 MCH 29.2 MCHC 30.7 L RDW 13.4 Plt Count 197 MPV 10.4 Immature Gran % (Auto) 0.7 H Neut % (Auto) 88.8 H Lymph % (Auto) 7.3 L [place] % (Auto) 3.1 Eos % (Auto) 0.0 Baso % (Auto) 0.1 Lymph # (Auto) 0.6 L [place] # (Auto) 0.3 Eos # (Auto) 0.0 Baso # (Auto) 0.0 Abs Immat Gran (auto) 0.06 H Absolute Neuts (auto) 7.6 Absolute Nucleated RBC 0.000 Nucleated RBC % (auto) 0.0 Anion Gap 18 Estim Creat Clear Calc 82.1 Estimated GFR > 60 POC Glucose 225 H Fasting Glucose 252 H Calcium 9.3 Total Bilirubin 0.3 AST 20 ALT 22 Alkaline Phosphatase 71 Total Protein 6.4 L Albumin 4.0 Microbiology Microbiology Results: Microbiology 11/28/21 13:09 Blood Culture - Preliminary Blood - Venous No growth after 48 hours. 11/28/21 12:48 Blood Culture - Preliminary Blood - Venous No growth after 48 hours. Assessment and Plan (1) Acute on chronic respiratory failure with hypoxemia: Status: Acute (2) Acute exacerbation of chronic obstructive airways disease: Status: Acute (3) Diabetes mellitus with hyperglycemia, without long-term current use of insulin: Status: Acute (4) HTN (hypertension): Status: Acute Plan 71-year-old male with past medical history of asthma, COPD severe, depression, diabetes, hyperlipidemia, generalized anxiety disorder, history of lung cancer status post chemo and radiation 10 years ago as per the patient follows up with Dr. Craig in [place], skin cancer history,hx of Enterococcus bacteremia, also history urinary incontinence. presents with worsening shortness of breath over the last several days consistent with COPD exacerbation 1. Acute on chronic hypoxemic/hypercarbic respiratory failure COPD exacerbation... improving - ceftriaxone/ doxycycline(3) - methylprednisolone IV q.6 hours - DuoNebs q.4 hours while awake - supplemental O2 2.DMII - acceptable control on current therapies ( given steroid use) - add back metformin/ glipizide - lispro sliding scale (correctional) 3.HTN - acceptable control on current therapies - adjust as indicated 4.Anxiety - continue home therapies full code Lovenox Will require ongoing hospitalization for IV antibiotics/ steroids to treat COPD exacerbation Quality Stroke Does the patient have a stroke diagnosis?: No VTE Prior VTE?: No VTE Risk Level:: Medical - moderate - high VTE Device Contraindication: N/A - Device Ordered VTE Drug Contraindication: N/A - Med Ordered
[2021-12-01 11:26] LABS: Glucose, Whole Blood 220 mg/dL (60-115)
--- NOTE | 2021-12-01 12:24 | MHC.CM.PN ---
PER ROUNDS DISCUSSION, PATIENT IS NOT YET MEDICALLY CLEARED FOR DISCHARGE TODAY R/T CONTINUED IV ANTIBIOTICS TO TREAT COPD EXACERBATION. D/C PLAN CONTINUES TO BE HOME SELF-CARE. CM WILL CONTINUE TO FOLLOW FOR DISCHARGE NEEDS.
--- NOTE | 2021-12-01 13:44 | PC.NURSE ---
Patient reports he is feeing anxious. Breathing is unlabored, although appears uptight. Patient requesting MD Jazzy aware.
[2021-12-01] MEDS: LORazepam 0.5 MG TABLET PO ×2 (14:04→22:48)
[2021-12-01 17:08] LABS: Glucose, Whole Blood 204 mg/dL (60-115)
[2021-12-01] MEDS: Atorvastatin Calcium 80 MG TABLET PO (19:34)
[2021-12-01 20:14] LABS: Glucose, Whole Blood 201 mg/dL (60-115)
[2021-12-02] VITALS: BP 124/68; PULSE 67; RESP 18; TEMP 36.4; O2SAT 98
[2021-12-02] MEDS: methylPREDNISolone Sod Succ 125 MG/2 ML VIAL 60 MG IVPUSH ×2 (02:00→08:27)
[2021-12-02 03:38] VITALS: BP 136/62; PULSE 77; RESP 17; TEMP 36.4; O2SAT 97
[2021-12-02] MEDS: Omeprazole 20 MG CAPSULE.DR PO (05:39)
[2021-12-02 05:53] LABS: MANUAL DIFF FLAG NO
[2021-12-02 05:59] LABS: Hematocrit 36.9 % (42.0-52.0); Hemoglobin 11.9 g/dl (14.0-18.0); Imm Gran Abs Auto 0.06 X10*3/uL (0.00-0.03); Imm Gran Pct Auto 0.8 % (0.0-0.4); Lymphocytes Absolute Auto 0.7 X10*3/uL (1.2-4.9); Mean Corpuscular HGB Conc 32.2 g/dl (31.0-36.0); Mean Corpuscular Hemoglobin 30.4 pg (27.0-33.0); Mean Corpuscular Volume 94.1 fL (80.0-98.0); Mean Platelet Volume 10.2 fL (9.4-12.4); Monocytes Absolute Auto 0.3 X10*3/uL (0.1-1.2); Monocytes Percent Auto 3.3 % (2-11); Neutrophils Absolute Auto 6.8 x10*3/uL (2.0-8.3); Neutrophils Percent Auto 86.9 % (45-73); Platelet Count 200 X10*3/uL (160-400); Red Blood Count 3.92 X10*6/uL (4.60-5.80); Red Cell Distribution Width 13.4 % (11.0-16.0); White Blood Count 7.8 X10*3/uL (4.8-10.8)
[2021-12-02 06:20] LABS: Alanine Aminotransferase 27 U/L (0-40); Alkaline Phosphatase 67 U/L (39-117); Anion Gap 14 (12-20); Aspartate Amino Transferase 21 U/L (5-37); Bilirubin Total 0.4 mg/dL (0.0-1.0); Blood Urea Nitrogen 26 mg/dL (9-16); Calcium 9.2 mg/dL (8.4-10.2); Carbon Dioxide 38 mmol/L (22-29); Chloride 91 mmol/L (96-108); Estimated Glomerular Filt Rate > 60; Glucose Fasting 264 mg/dL (60-99); Potassium 4.7 mmol/L (3.3-5.1); Sodium 138 mmol/L (135-145); Total Protein 6.4 g/dL (6.5-8.0)
[2021-12-02 07:48] LABS: Glucose, Whole Blood 236 mg/dL (60-115)
[2021-12-02 08:00] VITALS: BP 120/71; PULSE 90; RESP 14; TEMP 36.3; O2SAT 94
[2021-12-02] MEDS: Insulin Lispro 100 UNIT/ML 3 ML VIAL SUBCUT ×2 (08:27→11:51)
[2021-12-02] MEDS: Calcium + Vitamin D 250 MG TABLET 500 MG PO (08:27)
[2021-12-02] MEDS: 0.9 % Sodium Chloride Flush 3 ML SYRINGE IVFLUSH (08:27)
[2021-12-02] MEDS: Aspirin Enteric Coated 81 MG TABLET.DR PO (08:27)
[2021-12-02] MEDS: Escitalopram Oxalate 10 MG TABLET PO (08:28)
[2021-12-02] MEDS: guaiFENesin LA 600 MG TAB.ER.12H PO (08:28)
[2021-12-02] MEDS: Isosorbide Mononitrate 30 MG TAB.ER.24H PO (08:28)
[2021-12-02] MEDS: metFORMIN HCl 1,000 MG TABLET 1000 MG PO (08:28)
[2021-12-02] MEDS: Metoprolol Tartrate 25 MG TABLET PO (08:28)
[2021-12-02] MEDS: glipiZIDE 5 MG TABLET PO (08:28)
[2021-12-02] MEDS: Multivitamin TABLET 1 TAB PO (08:29)
[2021-12-02 11:40] VITALS: BP 120/68; PULSE 86; RESP 14; TEMP 36.2; O2SAT 96
[2021-12-02 11:41] LABS: Glucose, Whole Blood 256 mg/dL (60-115)
--- NOTE | 2021-12-02 12:16 | P.DS_ITS ---
DS: Providers Provider Date of Service: 12/02/21 Date of admission: 11/28/21 16:17 Date of discharge: 12/02/21 Primary care physician: Anne-Marie Muro MD DS: Diagnosis Discharge Diagnosis (1) Acute on chronic respiratory failure with hypoxemia: Status: Acute (2) Acute exacerbation of chronic obstructive airways disease: Status: Acute (3) Diabetes mellitus with hyperglycemia, without long-term current use of insulin: Status: Acute (4) HTN (hypertension): Status: Acute DS: Summary Hospital Course Hospital Course: anxiety disorder, history of lung cancer status post chemo and radiation 10 years ago as per the patient follows up with Dr. Craig in [place], skin cancer history,hx of Enterococcus bacteremia, also history urinary incontinence- patient came to the hospital because of worsening shortness of breath from 3-4 day duration, has cough with clear sputum.? Patient denies any chest pain? or fe canelo or nausea or vomiting or abdominal pain or weakness or numbness or blurry vision. Denies any ear or throat pain. Patient says that he has COPD exacerbation 1-2 times/year:? Which required hospitalization.? He said he had questionable 1 time history of BiPAP use also.? Never got intubated for COPD exacerbation. Patient is not vaccinated for COVID. Denies any sick contact or recent travel or any family member with similar symptoms. Hospital Course Admitted to hospital and started on IV methylprednisolone. O2 requirement increased on admission. Over the next 72 hours patient was able to be weaned back to home levels of 2 liters/minute and felt ready for discharge. He did have issues with some anxiety and will be prescribed a course of hydroxyzine for trial to see if this will help as he states Ativan makes him too somnolent. He will follow-up in his PCP in 2 weeks Time Spent with Patient Time attestation: Total time spent providing and/or coordinating discharge services: Discharge coordination time: Greater than 30 minutes Quality: Safe Use of Opioids Does Pt have an Active Cancer Diagnosis on the Problem List?: No Quality: Stroke Does the patient have a stroke diagnosis?: No Physical Exam Vital Signs: Vital Signs: Last Vital Signs Temp 97.1 F 12/02/21 11:40 Pulse 86 12/02/21 11:40 Resp 14 12/02/21 11:40 BP 120/68 12/02/21 11:40 Pulse Ox 96 12/02/21 11:40 O2 Del Method 12/02/21 11:40 O2 Flow Rate 2 12/02/21 11:40 Oxygen Flow Rate 2 11/28/21 12:17 BMI result Body Mass Index 32.3 Const: Other: no acute distress. Able to speak in full sentences Resp: Other: diminished throughout; wheezes have cleared There are end inspiratory crackles right greater than left base Cardio: Other: no S4; positive S1-S2; no S3 murmurs rubs or gallops GI: Other: soft nontender nondistended with normoactive bowel sounds Extrem: Other: no edema bilaterally DS: Data Data Completed and Pending Labs on day of discharge: Laboratory Results - last 24 hr 12/01/21 12/01/21 12/02/21 16:35 20:05 05:31 WBC 7.8 RBC 3.92 L Hgb 11.9 L Hct 36.9 L MCV 94.1 MCH 30.4 MCHC 32.2 RDW 13.4 Plt Count 200 MPV 10.2 Immature Gran % (Auto) 0.8 H Neut % (Auto) 86.9 H Lymph % (Auto) 9.0 L [place] % (Auto) 3.3 Eos % (Auto) 0.0 Baso % (Auto) 0.0 Lymph # (Auto) 0.7 L [place] # (Auto) 0.3 Eos # (Auto) 0.0 Baso # (Auto) 0.0 Abs Immat Gran (auto) 0.06 H Absolute Neuts (auto) 6.8 Absolute Nucleated RBC 0.000 Nucleated RBC % (auto) 0.0 Sodium Potassium Chloride Carbon Dioxide Anion Gap BUN Creatinine Estim Creat Clear Calc Estimated GFR POC Glucose 204 H 201 H Fasting Glucose Calcium Total Bilirubin AST ALT Alkaline Phosphatase Total Protein Albumin 12/02/21 12/02/21 12/02/21 05:31 07:14 11:24 WBC RBC Hgb Hct MCV MCH MCHC RDW Plt Count MPV Immature Gran % (Auto) Neut % (Auto) Lymph % (Auto) [place] % (Auto) Eos % (Auto) Baso % (Auto) Lymph # (Auto) [place] # (Auto) Eos # (Auto) Baso # (Auto) Abs Immat Gran (auto) Absolute Neuts (auto) Absolute Nucleated RBC Nucleated RBC % (auto) Sodium 138 Potassium 4.7 Chloride 91 L Carbon Dioxide 38 H Anion Gap 14 BUN 26 H Creatinine 0.84 Estim Creat Clear Calc 85.0 Estimated GFR > 60 POC Glucose 236 H 256 H Fasting Glucose 264 H Calcium 9.2 Total Bilirubin 0.4 AST 21 ALT 27 Alkaline Phosphatase 67 Total Protein 6.4 L Albumin 4.0 Preliminary micro results at discharge 11/28/21 13:09 Blood Culture - Preliminary Blood - Venous No growth after 48 hours. 11/28/21 12:48 Blood Culture - Preliminary Blood - Venous No growth after 48 hours. Discharge Plan Discharge Patient Disposition: Home, Self-Care Discharge Diagnosis: acute hypoxemic respiratory failure secondary to COPD exacerbation Referrals: Anne-Marie Muro MD [Primary Care Provider] - 1 Week Discharge Medications: New prednisone 10 mg tablet See Rx Instructions .Route .COMPLEX Qty: 45 0RF Rx Instructions: 10 mg orally; 5 tabs p.o. daily x3 days; 4 tabs p.o. daily x3 days; 3 tabs daily x3 days; 2 tabs daily x3 days; 1 tab daily x3 days hydroxyzine HCl 25 mg tablet 25 mg PO QID PRN (Reason: anxiety) Qty: 30 0RF Continued multivitamin [Daily-Kathleen] Tablet 1 tab PO DAILY Qty: 90 3RF atorvastatin 80 mg tablet 80 mg PO BEDTIME Qty: 90 3RF metoprolol tartrate 25 mg tablet 25 mg PO BID Qty: 180 3RF (DME) Accu-Chek Donna Plus test strp Strip See Rx Instructions .Route Qty: 100 3RF Rx Instructions: check blood glucose once a day ac metformin 1,000 mg tablet 1,000 mg PO BID Qty: 180 4RF isosorbide mononitrate 30 mg tablet extended release 24 hr 1 tab PO DAILY budesonide-formoterol [Symbicort] 160-4.5 mcg/actuation Hfa Aerosol Inhaler 2 puff INHALATION DAILY azithromycin 500 mg tablet 1 tab PO MOWEFR@0900 escitalopram oxalate 20 mg tablet 10 mg PO DAILY omeprazole 20 mg capsule,delayed release(DR/EC) 20 mg PO DAILY@0630 glipizide 5 mg tablet 5 mg PO BID cholecalciferol (vitamin D3) 1,250 mcg (50,000 unit) capsule 1,250 mcg PO SA@0900 ibuprofen [Advil] 200 mg Tablet 200 mg PO Q6H PRN (Reason: Pain) lorazepam 0.5 mg tablet 0.5 mg PO DAILY PRN (Reason: anxiety) calcium carbonate-vitamin D3 600 mg-10 mcg (400 unit) tablet 1 tab PO DAILY cyanocobalamin (vitamin B-12) 1,000 mcg Tablet 1,000 mcg PO Q OTHER DAY aspirin 81 mg Tablet,Delayed Release (Dr/Ec) 81 mg PO DAILY albuterol sulfate 90 mcg/actuation HFA aerosol inhaler 2 puff PO Q4H PRN (Reason: Shortness Of Breath Or Wheezing) ipratropium-albuterol 0.5 mg-3 mg(2.5 mg base)/3 mL solution for nebulization 3 ml inhalation Q6H (DME) blood-glucose meter [Accu-Chek Donna Plus Meter] Misc See Rx Instructions .Route Qty: 1 0RF Rx Instructions: check blood glucose twice a day ac As directed Discharge Orders: Discharge Order (Routine); Ordered 12/02/21 Ordered By: Gualberto Baig Diet: Advance to usual diet Activity on Discharge: As tolerated Stand Alone Forms: Patient Portal Discharge page Care Plan Goals: complete course of prednisone as per taper Health Concerns: resume all home therapies and medications Plan of Treatment: follow-up with PCP in 2 weeks Assessment: see discharge summary
--- NOTE | 2021-12-02 12:18 | MHC.CM.PN ---
PT WILL DC HOME TODAY WITH NO SERVICES FAMILY TO TRANSPORT
== END 2021-12-02 13:28 | disposition home or self-care (01) | DRG 190 ==
LOC: HO.ED 15:00 → HO.EDOVER 16:37 → HO.S3 11-29 12:11
PROVIDERS: Admitting Provider Internal Medicine; Emergency Provider Emergency Medicine; PCP Internal Medicine; Visit Provider Hospitalist
DX: J44.1 Chronic obstructive pulmonary disease with (acute) exacerbation (principal); J96.21 Acute and chronic respiratory failure with hypoxia; J96.22 Acute and chronic respiratory failure with hypercapnia; J45.41 Moderate persistent asthma with (acute) exacerbation; E78.5 Hyperlipidemia, unspecified; E11.65 Type 2 diabetes mellitus with hyperglycemia; F41.1 Generalized anxiety disorder; F32.A Depression, unspecified; Z85.828 Personal history of other malignant neoplasm of skin; Z87.01 Personal history of pneumonia (recurrent); Z87.891 Personal history of nicotine dependence; Z99.81 Dependence on supplemental oxygen; Z85.118 Personal history of other malignant neoplasm of bronchus and lung; Z92.21 Personal history of antineoplastic chemotherapy; Z92.3 Personal history of irradiation; Z88.8 Allergy status to other drugs, medicaments and biological substances; Z79.82 Long term (current) use of aspirin; Z79.84 Long term (current) use of oral hypoglycemic drugs; Z79.899 Other long term (current) drug therapy
CPT/HCPCS: 36415; 71045; 80048; 80053; 80076; 81003; 82947; 83605; 83690; 83880; 84484; 85025; 87040; 87635; 93005; 94640; 96365; 96367; 96375; 99285; J0696; J1650; J2920; J2930; J3475

== ENCOUNTER → 2021-12-07 08:39 | Outpatient (BNVA) | payer MEDICARE, SELFPAY | PROVIDERS: PCP Internal Medicine; Referring Provider Internal Medicine; Visit Provider Internal Medicine Gastroenterology | DX: K74.60 Unspecified cirrhosis of liver (principal); K21.9 Gastro-esophageal reflux disease without esophagitis; K82.4 Cholesterolosis of gallbladder; Z79.899 Other long term (current) drug therapy | CPT/HCPCS: Q3014 ==

== ENCOUNTER 2022-02-20 08:54 | Outpatient (REF) | payer MEDICARE, SELFPAY ==
--- NOTE | ~2022-02-20 | US_ITS ---
EXAMINATION: US ABDOMEN COMPLETE CLINICAL INFORMATION: Cholesterolosis of the gallbladder. COMPARISON: None Ultrasound abdomen limited 09/21/2021. Ultrasound abdomen complete 08/26/2020. MR abdomen without contrast 01/05/2020. CT abdomen and pelvis without contrast 10/05/2017. TECHNIQUE: Real-time imaging of the abdominal viscera. FINDINGS: PANCREAS: Large portions of the pancreas are obscured by bowel gas limiting evaluation. ABDOMINAL AORTA: Visualized aorta is normal in caliber however portions are obscured by bowel gas. INFERIOR VENA CAVA: Visualized portions are normal. LIVER: Liver is enlarged measuring 18.2 cm in span. The liver contour is normal. There is diffuse increased liver parenchymal echogenicity, consistent with infiltrative hepatocellular disease. No focal hepatic lesion. There is no intrahepatic biliary duct dilatation seen. GALLBLADDER: Question of trace minimal sludge within the gallbladder. The gallbladder is physiologically distended without evidence of stones, polyps, wall thickening or pericholecystic fluid. COMMON BILE DUCT: Mildly dilated for age showing 0.9 cm in diameter. RIGHT KIDNEY: 5 mm nonobstructing upper pole renal stone. No hydronephrosis or focal parenchymal lesions. The kidney measures 12.9 cm in maximum dimension. LEFT KIDNEY: Normal. No hydronephrosis. No renal calculi or focal parenchymal lesions. The kidney measures 13.1 cm in maximum dimension. SPLEEN: Normal. The spleen measures 10.7 cm in maximum dimension. FREE FLUID: None. US/US abdomen complete IMPRESSION: 1. Question of trace minimal sludge within the gallbladder. No cholelithiasis or evidence of acute cholecystitis. 2. Common bile duct is mildly dilated for age measuring 9 mm. No intrahepatic biliary duct dilatation. Consider correlation with LFTs and if any clinical concern for choledocholithiasis MRCP could be obtained. 3. Hepatomegaly. Increased hepatic echogenicity which can be seen in the setting of underlying liver disease. 4. 5 mm nonobstructing right renal stone. 5. Portions of the pancreas and portions of the aorta were obscured by bowel gas limiting evaluation.
[2022-02-20 11:59] LABS: Estimated Average Glucose 192 mg/dL; Hemoglobin A1c % 8.3 %
[2022-02-20 12:11] LABS: Creatinine Urine 131.13 mg/dL; Microalbum/Creatinine Ratio Ur 20.5 ug/mg cr
[2022-02-20 12:30] LABS: Alanine Aminotransferase 22 U/L (0-40); Albumin Level 4.3 g/dL (3.5-5.0); Alkaline Phosphatase 98 U/L (39-117); Anion Gap 12 (12-20); Aspartate Amino Transferase 21 U/L (5-37); Bilirubin Total 0.3 mg/dL (0.0-1.0); Blood Urea Nitrogen 10 mg/dL (9-16); Calcium 9.3 mg/dL (8.4-10.2); Carbon Dioxide 38 mmol/L (22-29); Chloride 96 mmol/L (96-108); Cholesterol 205 mg/dL; Estimated Glomerular Filt Rate > 60; Glucose Fasting 198 mg/dL (60-99); HDL Cholesterol 36 mg/dL; LDL Cholesterol Calculated 137 mg/dl; Potassium 4.1 mmol/L (3.3-5.1); Sodium 142 mmol/L (135-145); Total Protein 6.7 g/dL (6.5-8.0); Triglycerides 161 mg/dL
== END 2022-02-20 08:55 | disposition home or self-care (01) ==
LOC: HO.HMGCX 08:54
PROVIDERS: Absent Provider Internal Medicine; PCP Internal Medicine; Visit Provider Internal Medicine Gastroenterology
DX: E11.65 Type 2 diabetes mellitus with hyperglycemia (principal); E78.5 Hyperlipidemia, unspecified; F41.1 Generalized anxiety disorder; K74.60 Unspecified cirrhosis of liver; K82.4 Cholesterolosis of gallbladder
CPT/HCPCS: 36415; 76700; 80053; 80061; 82043; 83036

== ENCOUNTER 2022-04-17 12:19 | Outpatient (REF) | payer MEDICARE, SELFPAY ==
--- NOTE | ~2022-04-17 | XR_ITS ---
EXAMINATION: XR CHEST CLINICAL INFORMATION: Cough COMPARISON: Prior chest examinations most recent chest x-ray November 2021. TECHNIQUE: 2 views of the chest were obtained. FINDINGS: Stable left apical consolidation in the left lung with some volume loss unchanged compared to prior lungs otherwise clear. Cardiomediastinal silhouette normal. Spondylosis of the dorsal spine unchanged. No effusion. XR/XR chest 2V IMPRESSION: 1. No acute disease. 2. Stable left lung apical consolidation and volume loss unchanged.
== END 2022-04-17 12:20 | disposition home or self-care (01) ==
LOC: HO.HMGCX 12:19
PROVIDERS: PCP Internal Medicine; Visit Provider Internal Medicine
DX: R06.02 Shortness of breath (principal)
CPT/HCPCS: 71046

== ENCOUNTER 2022-04-26 12:31 | Outpatient (REF) | payer MEDICARE, SELFPAY ==
[2022-04-26 14:27] LABS: B Type Natriuretic Peptide 13 pg/mL (<100)
[2022-04-26 14:35] LABS: Anion Gap 13 (12-20); Blood Urea Nitrogen 18 mg/dL (9-16); Calcium 9.1 mg/dL (8.4-10.2); Carbon Dioxide 37 mmol/L (22-29); Chloride 92 mmol/L (96-108); Estimated Glomerular Filt Rate > 60; Glucose Random 422 mg/dL (60-115); Potassium 4.7 mmol/L (3.3-5.1); Sodium 137 mmol/L (135-145)
== END 2022-04-26 12:32 | disposition home or self-care (01) ==
LOC: HO.HMGCLDS 12:31
PROVIDERS: PCP Internal Medicine; Visit Provider Internal Medicine Cardiovascular Disease
DX: R06.02 Shortness of breath (principal)
CPT/HCPCS: 36415; 80048; 83880

== ENCOUNTER 2022-05-21 13:25 | Inpatient (IN) | payer MEDICARE, SELFPAY ==
[2022-05-21] VITALS (8 sets, daily range): BP systolic 100–123; BP diastolic 53–71; PULSE 75–117; RESP 16–20; TEMP 36.7–37.3; O2SAT 87–96; BMI 31.4
--- NOTE | ~2022-05-21 | XR_ITS ---
EXAMINATION: XR CHEST CLINICAL INFORMATION: COPD COMPARISON: Previous chest x-ray and chest CTA most recent July 2021 TECHNIQUE: Frontal view of the chest was obtained. FINDINGS: The cardiac silhouette does not appear enlarged. There is chronic volume loss to the left upper lobe and left apical pleural thickening. This doesn't appears unchanged from prior exams. The lungs are otherwise clear. No pleural effusion or pneumothorax. Degenerative changes of the spine. XR/XR chest 1V IMPRESSION: No evidence for acute disease in the chest. Chronic volume loss to the left upper lobe and left apical pleural thickening similar to previous exams.
--- NOTE | 2022-05-21 14:38 | ECG_ITS ---
Test Reason : cp Blood Pressure : / mmHG Vent. Rate : 082 BPM Atrial Rate : 082 BPM P-R Int : 150 ms QRS Dur : 082 ms QT Int : 362 ms P-R-T Axes : 054 091 091 degrees QTc Int : 422 ms Normal sinus rhythm Subtle ST elevations inferior leads. Abnormal ECG When compared with ECG of 28-NOV-2021 12:50, Subtle inferior ST elevations with reciprocal lateral changes Referred By: Sarahi Ornelas Electronically Signed By:Carlitos Meyers
--- NOTE | 2022-05-21 14:47 | ED.GENADULT ---
HPI - General Adult General Chief complaint: Dyspnea Stated complaint: sob,home o2 @ 2lpm, 91% per ems Time Seen by Provider: 05/21/22 14:27 Source: patient and EMS Mode of arrival: EMS Limitations: no limitations History of Present Illness HPI narrative: Patient comes to the emergency room complaining of shortness of breath which is worse than baseline. Patient states that he has been on a prednisone taper for a month, he is on his last 2 days. Patient states that his shortness of breath gets worse as the prednisone taper dose lowers. Patient states that earlier today, his oxygen saturation was 83%. When EMS arrived to the patient's residence, oxygen saturation was 96% on his usual 2 L of home oxygen. Patient denies fever or chills. Related Data Home Medications Medication Instructions Recorded Confirmed albuterol sulfate 90 mcg/actuation 2 puff PO Q4H PRN Shortness Of 01/14/20 03/15/22 aerosol inhaler Breath Or Wheezing ipratropium 0.5 mg-albuterol 3 mg 3 ml inhalation Q6H copd 01/14/20 03/15/22 (2.5 mg base)/3 mL nebulization soln budesonide-formoterol HFA 160 2 puff inhalation DAILY 03/14/21 03/15/22 mcg-4.5 mcg/actuation aerosol inhaler (Symbicort) isosorbide mononitrate 30 mg 1 tab PO DAILY 03/14/21 03/15/22 tablet,extended release 24 hr aspirin 81 mg tablet,delayed 81 mg PO DAILY 08/04/21 03/15/22 release calcium carbonate 600 mg-vitamin 1 tab PO DAILY 08/04/21 03/15/22 D3 10 mcg (400 unit) tablet cyanocobalamin (vitamin B-12) 1,000 mcg PO Q OTHER DAY 08/04/21 03/15/22 1,000 mcg tablet ibuprofen 200 mg tablet (Advil) 200 mg PO Q6H PRN Pain 11/28/21 03/15/22 omeprazole 20 mg capsule,delayed 20 mg PO DAILY@0630 11/28/21 03/15/22 release glipizide 5 mg tablet See Rx Instructions PO BID 12/12/21 03/15/22 azithromycin 500 mg tablet 500 mg PO MOWEFR@0900 05/21/22 05/21/22 furosemide 20 mg tablet 20 mg PO DAILY 05/21/22 05/21/22 Previous Rx's Medication Instructions Recorded multivitamin (Daily-Kathleen tablet) 1 tab PO DAILY #90 tabs 05/13/20 metformin 1,000 mg tablet 1,000 mg PO BID #180 tabs 11/07/21 hydroxyzine HCl 25 mg tablet 25 mg PO QID PRN anxiety #30 tabs 12/02/21 escitalopram oxalate 20 mg tablet 20 mg PO DAILY #30 tabs 12/12/21 blood sugar diagnostic (FreeStyle #100 ea 01/23/22 Lite Strips) blood-glucose meter (FreeStyle #1 ea 01/23/22 Lite Meter kit) atorvastatin 80 mg tablet 80 mg PO BEDTIME #90 tabs 02/05/22 Tradjenta 5 mg tablet (linagliptin) 5 mg PO QAM #30 tabs 02/23/22 lorazepam 0.5 mg tablet 0.5 mg PO DAILY PRN anxiety #30 04/13/22 tabs metoprolol tartrate 25 mg tablet 25 mg PO BID #180 tabs 05/02/22 Allergies Allergy/AdvReac Type Severity Reaction Status Date / Time fluticasone furoate Allergy Intermediate rash Verified 03/15/22 13:06 [From Trelegy Ellipta] vilanterol Allergy Intermediate rash Verified 03/15/22 13:06 [From Trelegy Ellipta] umeclidinium Allergy Unknown hives Verified 03/15/22 13:06 [Incruse Ellipta] Review of Systems Review of Systems: Constitutional : No Weight loss, No Fever, No Chills, No Night Sweats, No Fatigue, No Malaise ENT/Mouth : No Hearing loss, No Ear Pain, No Nasal Congestion, No Sinus Pain, No Hoarseness, No sore throat, No Rhinorrhea, No Swallowing Difficulty Eyes: No Eye Pain, No Swelling, No Redness, No Foreign Body, No Discharge, No Vision Changes Cardiovascular : No Chest Pain, No SOB, No Dyspnea on Exertion, No Orthopnea, No Edema, No Palpitations Respiratory : Complaining from a chronic cough, chronic wheezing, worsening shortness of breath from baseline Gastrointestinal : No Nausea, No Vomiting, No Diarrhea, No Constipation, No abdominal Pain, No Hematochezia, No Melena Genitourinary : no irregular bleeding, No Dysuria, No Urinary Frequency, No Hematuria, No Urinary Incontinence, No Urgency, No Flank Pain, No Urinary Flow Changes, No Hesitancy Musculoskeletal : No joint pain, No Myalgias, No Joint Swelling Skin : No Skin Lesions, No rash Neuro : No Weakness, No Numbness, No Paresthesias, No Loss of Consciousness, No Dizziness, No Headache Psych : No Anxiety/Panic, No Depression, No SI/HI/AH/VH, No Social Issues, Heme/Lymph: No Bruising, No Bleeding,No Lymphadenopathy Endocrine : No Polyuria, No Polydipsia, No Temperature Intolerance [facility] Past Medical History Medical History (Updated 05/21/22 @ 20:01 by Sarahi Ornelas MD) Asthma Bacteremia due to Enterococcus Chronic respiratory failure COPD, severe Diabetes mellitus with hyperglycemia, without long-term current use of insulin Dyslipidemia Generalized anxiety disorder History of pneumonia HTN (hypertension) Hyperlipemia Lung cancer Skin cancer Urinary incontinence Surgical History History of esophagogastroduodenoscopy (EGD) Hx of colonoscopy Hx of heart artery stent Family History Family History Father Medical history non-contributory Mother Medical history non-contributory Unknown family medical history Lung collapse Brother No problems noted. Brother No problems noted. Son Substance use disorder Son No problems noted. Daughter No problems noted. Sister No problems noted. Sister No problems noted. Sister No problems noted. Sister No problems noted. Other HTN (hypertension) Social History Social History Household Members: Spouse and Family Household Members Other:: grandson Housing: House Are you a primary assistant child care teacher to a significant other at home: No Do you presently have visiting nurse or other home services: No Alcohol intake: never Patient Tobacco Use Status: Former Tobacco user Smoked in Last 30 Days: No e-Cigarette/Vaping Use: Never Used Use of substances other than those prescribed or required for medical reasons: No Advance Directives: No Advance Directives Information Provided: Yes service: No Current occupational status: retired Cognitive needs: No Hearing needs: No Vision needs: No Physical Exam ED Vital Signs: Vital Signs - 24 hr 05/21/22 13:47 05/21/22 15:22 05/21/22 15:24 Temperature 98.6 F Pulse Rate 75 90 84 Respiratory Rate 20 20 19 Blood Pressure 113/53 L 122/69 Pulse Oximetry 93 93 Oxygen Delivery Method Nasal Cannula Nasal Cannula Oxygen Flow Rate 3 05/21/22 17:31 05/21/22 19:08 Temperature 99.1 F Pulse Rate 112 H 105 H Respiratory Rate 16 19 Blood Pressure 122/62 116/71 Pulse Oximetry 91 L 90 L Oxygen Delivery Method Nasal Cannula Nasal Cannula with ETCO2 Oxygen Flow Rate 3 3 BMI result Body Mass Index 31.4 Const Other: Appearance: Alert. Oriented X3. No acute distress. Eyes: Pupils equal, round and reactive to light. ENT: Pharynx normal. Neck: Normal inspection. Neck supple. No lymph nodes noted. No crepitus CVS: Normal heart rate and rhythm. Pulses normal. Normal S1 and S2 Respiratory: No respiratory distress. Breath sounds normal. No Wheezing. No rales , oxygen saturation 92% 3 L, seems out of breath but still speaking in full sentences Abdomen: Soft and nontender. No rigidity. No distention. Skin: Skin warm and dry. Normal skin color. Normal skin turgor. Extremities: No lower extremity edema. No Lacerations. No Rash Neuro: Oriented X 3. No motor deficit. No sensory deficit. Moving all extremities. No slurred speech. CN 2 through 12 grossly intact Psych: calm, cooperative, normal affect Course Course Course Narrative: -patient's oxygen saturation is at baseline, on 2 L 89%, on 3 L 92%. -patient's vitals are within normal limits. -patient is receiving now albuterol and DuoNeb, magnesium and Solu-Medrol -all labs and imaging are pending Medications Administered Discontinued Medications Generic Name Dose Route Start Last Admin Trade Name Freq PRN Reason Stop Dose Admin Albuterol Sulfate 7.5 mg 05/21/22 14:50 05/21/22 15:24 Albuterol Sulfate (0.083%) 2.5 Mg/3 Ml Vial.Neb INHALE 05/21/22 14:51 7.5 mg ONCE ONE Administration Albuterol/Ipratropium 3 ml 05/21/22 14:50 05/21/22 15:24 Albuterol/Iprat 2.5/0.5mg 3 Ml Ampul.Neb INHALE 05/21/22 14:51 3 ml ONCE ONE Administration Magnesium Sulfate 2 gm in 50 mls @ 25 mls/hr 05/21/22 14:51 05/21/22 18:32 Magnesium Sulfate/H2o IV 05/21/22 16:50 Infused ONCE ONE Infusion Methylprednisolone Sodium Succinate 125 mg 05/21/22 14:51 05/21/22 15:09 Methylprednisolone Sod Succ 125 Mg/2 Ml Vial IVPUSH 05/21/22 14:52 125 mg ONCE ONE Administration Medical Decision Making Medical Decision Making [facility] Narrative: -patient has history of chronic lung disease, no infiltrates on x-ray., antibiotics were given empirically -oxygen saturation drops to the mid 80s even on his 3 L, patient on 6 L which is double his baseline. -I discussed the patient with our hospitalist, patient being admitted -patient's lactic acid elevation likely secondary to multiple nebulizations prior to arrival and in the emergency room, sepsis not suspected Differential Diagnosis Differential Diagnoses: The differential diagnosis associated with the presentation includes (Chronic lung disease) Admission/Observation Consideration of admission/observation: Escalation of care including admission/observation considered Consult Healthcare Provider Management of the patient was discussed with: Hospitalist Lab Data [facility] Lab Attestation statement: I reviewed the patient's lab results. 05/21/22 15:04 05/21/22 15:04 Labs: Lab Results 05/21/22 05/21/22 05/21/22 Range/Units 15:04 15:04 15:04 WBC 5.7 (4.8-10.8) X10*3/uL RBC 4.59 L (4.60-5.80) X10*6/uL Hgb 13.5 L (14.0-18.0) g/dl Hct 45.0 (42.0-52.0) % MCV 98.0 (80.0-98.0) fL MCH 29.4 (27.0-33.0) pg MCHC 30.0 L (31.0-36.0) g/dl RDW 12.7 (11.0-16.0) % Plt Count 162 (160-400) X10*3/uL MPV 10.2 (9.4-12.4) fL Immature Gran % (Auto) 0.5 H (0.0-0.4) % Neut % (Auto) 85.5 H (45-73) % Lymph % (Auto) 11.3 L (20-40) % [place] % (Auto) 2.1 (2-11) % Eos % (Auto) 0.2 (0-4) % Baso % (Auto) 0.4 (0-2) % Lymph # (Auto) 0.6 L (1.2-4.9) X10*3/uL [place] # (Auto) 0.1 (0.1-1.2) X10*3/uL Eos # (Auto) 0.0 (0.0-0.4) X10*3/uL Baso # (Auto) 0.0 (0.0-0.2) X10*3/uL Abs Immat Gran (auto) 0.03 (0.00-0.03) X10*3/uL Absolute Neuts (auto) 4.8 (2.0-8.3) x10*3/uL Absolute Nucleated RBC 0.000 (0.0-0.012) X10*3/uL Nucleated RBC % (auto) 0.0 (0.0-0.2) /100WBC PT (10.0-13.1) SEC INR (0.9-1.1) VBG pH (7.32-7.43) VBG pCO2 mmHg VBG pO2 mmHg VBG HCO3 (22-26) mmol/L VBG O2 Saturation % VBG Base Excess mmol/L Sodium 140 (135-145) mmol/L Potassium 4.4 (3.3-5.1) mmol/L Chloride 87 L (96-108) mmol/L Carbon Dioxide 41 H* (22-29) mmol/L Anion Gap 16 (12-20) BUN 17 H (9-16) mg/dL Creatinine 0.92 (0.5-1.4) mg/dL Estim Creat Clear Calc 75.6 Estimated GFR > 60 Random Glucose 304 H (60-115) mg/dL Lactic Acid (0.5-2.0) mmol/L Lactic Acid F/U @ 2Hr (0.5-2.0) mmol/L Calcium 9.8 D (8.4-10.2) mg/dL Total Bilirubin 0.7 (0.0-1.0) mg/dL Direct Bilirubin 0.2 (0.0-0.5) mg/dL AST 20 (5-37) U/L ALT 26 (0-40) U/L Alkaline Phosphatase 95 (39-117) U/L Troponin I High Sens 5.4 (<3.5-35.0) ng/L B-Natriuretic Peptide (<100) pg/mL Total Protein 7.1 (6.5-8.0) g/dL Albumin 4.5 (3.5-5.0) g/dL COVID-19 (LESTER) (Negative) COVID-19 Clin Com Influenza Type A (MATHEW) (Negative) Influenza Type B (MATHEW) (Negative) Influenza A & B Note 05/21/22 05/21/22 05/21/22 Range/Units 15:04 15:04 15:04 WBC (4.8-10.8) X10*3/uL RBC (4.60-5.80) X10*6/uL Hgb (14.0-18.0) g/dl Hct (42.0-52.0) % MCV (80.0-98.0) fL MCH (27.0-33.0) pg MCHC (31.0-36.0) g/dl RDW (11.0-16.0) % Plt Count (160-400) X10*3/uL MPV (9.4-12.4) fL Immature Gran % (Auto) (0.0-0.4) % Neut % (Auto) (45-73) % Lymph % (Auto) (20-40) % [place] % (Auto) (2-11) % Eos % (Auto) (0-4) % Baso % (Auto) (0-2) % Lymph # (Auto) (1.2-4.9) X10*3/uL [place] # (Auto) (0.1-1.2) X10*3/uL Eos # (Auto) (0.0-0.4) X10*3/uL Baso # (Auto) (0.0-0.2) X10*3/uL Abs Immat Gran (auto) (0.00-0.03) X10*3/uL Absolute Neuts (auto) (2.0-8.3) x10*3/uL Absolute Nucleated RBC (0.0-0.012) X10*3/uL Nucleated RBC % (auto) (0.0-0.2) /100WBC PT 10.6 (10.0-13.1) SEC INR 0.9 (0.9-1.1) VBG pH (7.32-7.43) VBG pCO2 mmHg VBG pO2 mmHg VBG HCO3 (22-26) mmol/L VBG O2 Saturation % VBG Base Excess mmol/L Sodium (135-145) mmol/L Potassium (3.3-5.1) mmol/L Chloride (96-108) mmol/L Carbon Dioxide (22-29) mmol/L Anion Gap (12-20) BUN (9-16) mg/dL Creatinine (0.5-1.4) mg/dL Estim Creat Clear Calc Estimated GFR Random Glucose (60-115) mg/dL Lactic Acid 2.4 H* (0.5-2.0) mmol/L Lactic Acid F/U @ 2Hr (0.5-2.0) mmol/L Calcium (8.4-10.2) mg/dL Total Bilirubin (0.0-1.0) mg/dL Direct Bilirubin (0.0-0.5) mg/dL AST (5-37) U/L ALT (0-40) U/L Alkaline Phosphatase (39-117) U/L Troponin I High Sens (<3.5-35.0) ng/L B-Natriuretic Peptide (<100) pg/mL Total Protein (6.5-8.0) g/dL Albumin (3.5-5.0) g/dL COVID-19 (LESTER) Negative (Negative) COVID-19 Clin Com See Note Influenza Type A (MATHEW) (Negative) Influenza Type B (MATHEW) (Negative) Influenza A & B Note 05/21/22 05/21/22 05/21/22 Range/Units 15:04 15:04 15:09 WBC (4.8-10.8) X10*3/uL RBC (4.60-5.80) X10*6/uL Hgb (14.0-18.0) g/dl Hct (42.0-52.0) % MCV (80.0-98.0) fL MCH (27.0-33.0) pg MCHC (31.0-36.0) g/dl RDW (11.0-16.0) % Plt Count (160-400) X10*3/uL MPV (9.4-12.4) fL Immature Gran % (Auto) (0.0-0.4) % Neut % (Auto) (45-73) % Lymph % (Auto) (20-40) % [place] % (Auto) (2-11) % Eos % (Auto) (0-4) % Baso % (Auto) (0-2) % Lymph # (Auto) (1.2-4.9) X10*3/uL [place] # (Auto) (0.1-1.2) X10*3/uL Eos # (Auto) (0.0-0.4) X10*3/uL Baso # (Auto) (0.0-0.2) X10*3/uL Abs Immat Gran (auto) (0.00-0.03) X10*3/uL Absolute Neuts (auto) (2.0-8.3) x10*3/uL Absolute Nucleated RBC (0.0-0.012) X10*3/uL Nucleated RBC % (auto) (0.0-0.2) /100WBC PT (10.0-13.1) SEC INR (0.9-1.1) VBG pH 7.34 (7.32-7.43) VBG pCO2 93 mmHg VBG pO2 53 mmHg VBG HCO3 51 H (22-26) mmol/L VBG O2 Saturation 82.0 % VBG Base Excess 19.4 mmol/L Sodium (135-145) mmol/L Potassium (3.3-5.1) mmol/L Chloride (96-108) mmol/L Carbon Dioxide (22-29) mmol/L Anion Gap (12-20) BUN (9-16) mg/dL Creatinine (0.5-1.4) mg/dL Estim Creat Clear Calc Estimated GFR Random Glucose (60-115) mg/dL Lactic Acid (0.5-2.0) mmol/L Lactic Acid F/U @ 2Hr (0.5-2.0) mmol/L Calcium (8.4-10.2) mg/dL Total Bilirubin (0.0-1.0) mg/dL Direct Bilirubin (0.0-0.5) mg/dL AST (5-37) U/L ALT (0-40) U/L Alkaline Phosphatase (39-117) U/L Troponin I High Sens (<3.5-35.0) ng/L B-Natriuretic Peptide 25 (<100) pg/mL Total Protein (6.5-8.0) g/dL Albumin (3.5-5.0) g/dL COVID-19 (LESTER) (Negative) COVID-19 Clin Com Influenza Type A (MATHEW) Negative (Negative) Influenza Type B (MATHEW) Negative (Negative) Influenza A & B Note See Note 05/21/22 Range/Units 17:30 WBC (4.8-10.8) X10*3/uL RBC (4.60-5.80) X10*6/uL Hgb (14.0-18.0) g/dl Hct (42.0-52.0) % MCV (80.0-98.0) fL MCH (27.0-33.0) pg MCHC (31.0-36.0) g/dl RDW (11.0-16.0) % Plt Count (160-400) X10*3/uL MPV (9.4-12.4) fL Immature Gran % (Auto) (0.0-0.4) % Neut % (Auto) (45-73) % Lymph % (Auto) (20-40) % [place] % (Auto) (2-11) % Eos % (Auto) (0-4) % Baso % (Auto) (0-2) % Lymph # (Auto) (1.2-4.9) X10*3/uL [place] # (Auto) (0.1-1.2) X10*3/uL Eos # (Auto) (0.0-0.4) X10*3/uL Baso # (Auto) (0.0-0.2) X10*3/uL Abs Immat Gran (auto) (0.00-0.03) X10*3/uL Absolute Neuts (auto) (2.0-8.3) x10*3/uL Absolute Nucleated RBC (0.0-0.012) X10*3/uL Nucleated RBC % (auto) (0.0-0.2) /100WBC PT (10.0-13.1) SEC INR (0.9-1.1) VBG pH (7.32-7.43) VBG pCO2 mmHg VBG pO2 mmHg VBG HCO3 (22-26) mmol/L VBG O2 Saturation % VBG Base Excess mmol/L Sodium (135-145) mmol/L Potassium (3.3-5.1) mmol/L Chloride (96-108) mmol/L Carbon Dioxide (22-29) mmol/L Anion Gap (12-20) BUN (9-16) mg/dL Creatinine (0.5-1.4) mg/dL Estim Creat Clear Calc Estimated GFR Random Glucose (60-115) mg/dL Lactic Acid (0.5-2.0) mmol/L Lactic Acid F/U @ 2Hr 6.6 H* (0.5-2.0) mmol/L Calcium (8.4-10.2) mg/dL Total Bilirubin (0.0-1.0) mg/dL Direct Bilirubin (0.0-0.5) mg/dL AST (5-37) U/L ALT (0-40) U/L Alkaline Phosphatase (39-117) U/L Troponin I High Sens (<3.5-35.0) ng/L B-Natriuretic Peptide (<100) pg/mL Total Protein (6.5-8.0) g/dL Albumin (3.5-5.0) g/dL COVID-19 (LESTER) (Negative) COVID-19 Clin Com Influenza Type A (MATHEW) (Negative) Influenza Type B (MATHEW) (Negative) Influenza A & B Note Independent Interpretation I performed an independent interpretation of an: Plain X-Ray (My interpretation of chest x-ray, no infiltrates) Radiology Impression Discussion of test interpretation with radiology: I have reviewed the radiologist's reading. Radiologist Impression: FINDINGS: The cardiac silhouette does not appear enlarged. There is chronic volume loss to the left upper lobe and left apical pleural thickening. This doesn't appears unchanged from prior exams. The lungs are otherwise clear. No pleural effusion or pneumothorax. Degenerative changes of the spine. XR/XR chest 1V IMPRESSION: No evidence for acute disease in the chest. Chronic volume loss to the left upper lobe and left apical pleural thickening similar to previous exams. ? Critical Care Time Critical Care Time Critical Care Time: Yes Total Critical Care Time: 60 Attestation: I have personally provided critical care time. Time includes review of lab data, radiology results, discussion with consultants, and monitoring for potential decompensation. Intervention performed as documented. Discharge Plan Discharge Clinical Impression: Chronic lung disease Patient Disposition: Admitted As Inpatient Prescriptions: No Action multivitamin [Daily-Kathleen] Tablet 1 tab PO DAILY Qty: 90 3RF metformin 1,000 mg tablet 1,000 mg PO BID Qty: 180 4RF (DME) FreeStyle Lite Strips Strip See Rx Instructions .Route Qty: 100 5RF Rx Instructions: check fasting glucose BID ac (DME) blood-glucose meter [FreeStyle Lite Meter] Kit See Rx Instructions .Route Qty: 1 0RF Rx Instructions: As directed atorvastatin 80 mg tablet 80 mg PO BEDTIME Qty: 90 3RF lorazepam 0.5 mg tablet 0.5 mg PO DAILY PRN (Reason: anxiety) Qty: 30 0RF metoprolol tartrate 25 mg tablet 25 mg PO BID Qty: 180 1RF isosorbide mononitrate 30 mg tablet extended release 24 hr 1 tab PO DAILY budesonide-formoterol [Symbicort] 160-4.5 mcg/actuation Hfa Aerosol Inhaler 2 puff INHALATION DAILY omeprazole 20 mg capsule,delayed release(DR/EC) 20 mg PO DAILY@0630 ibuprofen [Advil] 200 mg Tablet 200 mg PO Q6H PRN (Reason: Pain) hydroxyzine HCl 25 mg tablet 25 mg PO QID PRN (Reason: anxiety) Qty: 30 0RF glipizide 5 mg tablet See Rx Instructions PO BID Rx Instructions: 10 mg in a.m. and 5 mg q.p.m. with meals orally 2 times a day; calcium carbonate-vitamin D3 600 mg-10 mcg (400 unit) tablet 1 tab PO DAILY cyanocobalamin (vitamin B-12) 1,000 mcg Tablet 1,000 mcg PO Q OTHER DAY aspirin 81 mg Tablet,Delayed Release (Dr/Ec) 81 mg PO DAILY albuterol sulfate 90 mcg/actuation HFA aerosol inhaler 2 puff PO Q4H PRN (Reason: Shortness Of Breath Or Wheezing) ipratropium-albuterol 0.5 mg-3 mg(2.5 mg base)/3 mL solution for nebulization 3 ml inhalation Q6H escitalopram oxalate 20 mg tablet 20 mg PO DAILY Qty: 30 5RF Tradjenta 5 mg tablet 5 mg PO QAM Qty: 30 5RF
[2022-05-21] MEDS: methylPREDNISolone Sod Succ 125 MG/2 ML VIAL IVPUSH (15:09)
[2022-05-21] MEDS: Magnesium Sulfate/H2O 2 GM/50 ML PIGGYBACK IV (15:12)
[2022-05-21 15:15] LABS: VBG Base Excess 19.4 mmol/L; VBG HCO3 51 mmol/L (22-26); VBG pCO2 93 mmHg; VBG pH 7.34 (7.32-7.43); VBG pO2 53 mmHg
[2022-05-21 15:19] LABS: Venous Blood Gas Refer to POC result
[2022-05-21 15:24] LABS: MANUAL DIFF FLAG NO
[2022-05-21] MEDS: Albuterol Sulfate (0.083%) 2.5 MG/3 ML VIAL.NEB 7.5 MG INHALE (15:24)
[2022-05-21] MEDS: Albuterol/Iprat 2.5/0.5MG 3 ML AMPUL.NEB INHALE ×2 (15:24→20:26)
[2022-05-21 15:25] LABS: Basophils Percent Auto 0.4 % (0-2); Eosinophils Percent Auto 0.2 % (0-4); Hemoglobin 13.5 g/dl (14.0-18.0); Imm Gran Abs Auto 0.03 X10*3/uL (0.00-0.03); Imm Gran Pct Auto 0.5 % (0.0-0.4); Lymphocytes Absolute Auto 0.6 X10*3/uL (1.2-4.9); Lymphocytes Percent Auto 11.3 % (20-40); Mean Corpuscular Hemoglobin 29.4 pg (27.0-33.0); Mean Platelet Volume 10.2 fL (9.4-12.4); Monocytes Absolute Auto 0.1 X10*3/uL (0.1-1.2); Monocytes Percent Auto 2.1 % (2-11); Neutrophils Absolute Auto 4.8 x10*3/uL (2.0-8.3); Neutrophils Percent Auto 85.5 % (45-73); Platelet Count 162 X10*3/uL (160-400); Red Blood Count 4.59 X10*6/uL (4.60-5.80); Red Cell Distribution Width 12.7 % (11.0-16.0); White Blood Count 5.7 X10*3/uL (4.8-10.8)
[2022-05-21 15:34] LABS: Lactic Acid 2.4 mmol/L (0.5-2.0)
[2022-05-21 15:42] LABS: INTERNATIONAL NORM RATIO 0.9 (0.9-1.1); Prothrombin Time 10.6 SEC (10.0-13.1)
[2022-05-21 15:43] LABS: IDNOW Serial# 9DB6401D; Influenza A Negative (Negative); Influenza B2 Negative (Negative)
[2022-05-21 15:44] LABS: COVID-19 Test Negative (Negative); IDNOW Serial# 55D5AD1C
[2022-05-21 15:49] LABS: B Type Natriuretic Peptide 25 pg/mL (<100)
[2022-05-21 15:52] LABS: Troponin-I High Sensitivity 5.4 ng/L (<3.5-35.0)
[2022-05-21 16:03] LABS: Alanine Aminotransferase 26 U/L (0-40); Albumin Level 4.5 g/dL (3.5-5.0); Alkaline Phosphatase 95 U/L (39-117); Anion Gap 16 (12-20); Aspartate Amino Transferase 20 U/L (5-37); Bilirubin Direct 0.2 mg/dL (0.0-0.5); Bilirubin Total 0.7 mg/dL (0.0-1.0); Blood Urea Nitrogen 17 mg/dL (9-16); Calcium 9.8 mg/dL (8.4-10.2); Carbon Dioxide 41 mmol/L (22-29); Chloride 87 mmol/L (96-108); Creatinine Clr Calc Pharmacy 75.6; Estimated Glomerular Filt Rate > 60; Glucose Random 304 mg/dL (60-115); Potassium 4.4 mmol/L (3.3-5.1); Sodium 140 mmol/L (135-145); Total Protein 7.1 g/dL (6.5-8.0)
[2022-05-21 17:18] LABS: Reflex Lactate? Lactic Acid Added
[2022-05-21 18:01] LABS: ~Lactic Acid-LAB USE ONLY 6.6 mmol/L (0.5-2.0)
--- NOTE | 2022-05-21 18:42 | PM.IMHP ---
History of Present Illness Date of Service: 05/21/22 Attending physician on admission: Sadi Anguiano Chief Complaint: sob 72-year-old male with history of asthma/COPD overlap, chronic hypoxemic and hypercapnic respiratory failure, hepatic cirrhosis, history of alcohol abuse, former smoker who quit 16 years ago, anxiety, hyperlipidemia, hypertension, history of lung cancer presented to the ED earlier this morning via EMS for evaluation of shortness of breath and hypoxia. Per EMS, patient was hypoxic at 83% on arrival and has required up to 6 L supplemental O2 in the ED. Has also had productive cough with increased sputum production. Chest x-ray negative for pneumonia. On arrival, vital signs normal except for hypoxia as noted. No leukocytosis. Renal function baseline. Sodium 140, potassium 4.4, chloride 87, CO2 41, glucose 304, initial lactic acid 2.4, follow-up lactic acid at 02:00 hours 6.6. Troponins negative, BNP 25. VBG showing pH of 7.34, pCO2 93 consistent with baseline, PO2 53, bicarb 51. Patient negative for COVID-19, influenza. Treated with 125 mg IV Solu-Medrol, DuoNeb, and IV magnesium. 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 Marr. To be admitted for COPD exacerbation with acute on chronic hypoxemic, hypercapnic respiratory failure. He denies any fevers, chills, sinus congestion, sore throat, headaches, lightheadedness, abdominal pain, nausea, vomiting, diarrhea, constipation, palpitations, or chest pain. Denies any known sick contacts. Review of Systems Review of Systems: Yes all other systems are reviewed and are negative [facility] Medical History Asthma Bacteremia due to Enterococcus Chronic respiratory failure COPD, severe Diabetes mellitus with hyperglycemia, without long-term current use of insulin Dyslipidemia Generalized anxiety disorder History of pneumonia HTN (hypertension) Hyperlipemia Lung cancer Skin cancer Urinary incontinence Family History Father Medical history non-contributory Mother Medical history non-contributory Unknown family medical history Lung collapse Brother No problems noted. Brother No problems noted. Son Substance use disorder Son No problems noted. Daughter No problems noted. Sister No problems noted. Sister No problems noted. Sister No problems noted. Sister No problems noted. Other HTN (hypertension) Surgical History History of esophagogastroduodenoscopy (EGD) Hx of colonoscopy Hx of heart artery stent Social History Household Members: Spouse and Family Household Members Other:: grandson Housing: House Are you a primary healthcare translator to a significant other at home: No Do you presently have visiting nurse or other home services: No Alcohol intake: never Patient Tobacco Use Status: Former Tobacco user Smoked in Last 30 Days: No e-Cigarette/Vaping Use: Never Used Use of substances other than those prescribed or required for medical reasons: No Currently Displaying Signs/Symptoms of Drug Intoxication Withdrawal: No Have you been hit, kicked, punched, or otherwise hurt by someone within the past year? If so, by whom?: No Do you feel safe in your current relationship?: Yes Is there a partner from a previous relationship who is making you feel unsafe now?: No Are you made to feel afraid or neglected: No Advance Directives: No Advance Directives Information Provided: Yes Do you have thoughts of harming others: None Do you have a plan to hurt others: No Plan Recently lost weight without trying: No Eating poorly because of decreased appetite: No Nutrition Risks: No Nutritional Risk Poor oral hygiene: No service: No Current occupational status: retired Cognitive needs: No Hearing needs: No Vision needs: No Meds Allergies Allergy/AdvReac Type Severity Reaction Status Date / Time fluticasone furoate Allergy Intermediate rash Verified 03/15/22 13:06 [From Trelegy Ellipta] vilanterol Allergy Intermediate rash Verified 03/15/22 13:06 [From Trelegy Ellipta] umeclidinium Allergy Unknown hives Verified 03/15/22 13:06 [Incruse Ellipta] Home Medications Medication Instructions Recorded Confirmed Last Taken Type albuterol sulfate 90 mcg/actuation 2 puff PO Q4H PRN Shortness Of 01/14/20 05/21/22 05/27/20 History aerosol inhaler Breath Or Wheezing 0200 ipratropium 0.5 mg-albuterol 3 mg 3 ml inhalation Q6H PRN COPD 01/14/20 05/21/22 11/28/21 History (2.5 mg base)/3 mL nebulization soln budesonide-formoterol HFA 160 2 puff inhalation DAILY 03/14/21 05/21/22 05/21/22 History mcg-4.5 mcg/actuation aerosol inhaler (Symbicort) isosorbide mononitrate 30 mg 30 mg PO DAILY 03/14/21 05/21/22 05/21/22 History tablet,extended release 24 hr aspirin 81 mg tablet,delayed 81 mg PO DAILY 08/04/21 05/21/22 05/21/22 History release calcium carbonate 600 mg-vitamin 1 tab PO DAILY 08/04/21 05/21/22 05/21/22 History D3 10 mcg (400 unit) tablet omeprazole 20 mg capsule,delayed 20 mg PO DAILY@0630 11/28/21 05/21/22 05/21/22 History release glipizide 5 mg tablet See Rx Instructions PO BID 12/12/21 05/21/22 05/21/22 History azithromycin 500 mg tablet 500 mg PO MOWEFR@0900 05/21/22 05/21/22 Unknown History furosemide 20 mg tablet 20 mg PO DAILY 05/21/22 05/21/22 05/21/22 History Physical Exam Vital Signs and Narrative: Vital Signs: Last Vital Signs Temp 99.1 F 05/21/22 17:31 Pulse 112 H 05/21/22 17:31 Resp 16 05/21/22 17:31 BP 122/62 05/21/22 17:31 Pulse Ox 91 L 05/21/22 17:31 O2 Del Method 05/21/22 17:31 O2 Flow Rate 3 05/21/22 17:31 Oxygen Flow Rate 2 05/21/22 13:47 BMI result Body Mass Index 31.4 Constitutional - Awake and Alert, No apparent distress Eyes - PERRLA, EOMI Cardiovascular - S1S2, RRR, No edema Respiratory - Normal lung expansion, Normal respiratory effort on 4L supplemental O2, speaking in short sentences, diminished lung sounds bilaterally with scattered expiratory wheezes Gastrointestinal - NT / ND; +BS; No rebound or guarding Extremities - no calf tenderness bilaterally, no swelling Skin - Warm/Dry Neurological - Alert & oriented x3, CN II-XII in tact, 5/5 strength BUE and BLE Psychological - Appropriate affect Results Labs 05/21/22 15:04 05/21/22 15:04 Labs: Laboratory Results - last 24 hr 05/21/22 05/21/22 05/21/22 15:04 15:04 15:04 MCV 98.0 MCH 29.4 MCHC 30.0 L RDW 12.7 Plt Count 162 MPV 10.2 Immature Gran % (Auto) 0.5 H Neut % (Auto) 85.5 H Lymph % (Auto) 11.3 L [place] % (Auto) 2.1 Eos % (Auto) 0.2 Baso % (Auto) 0.4 Lymph # (Auto) 0.6 L [place] # (Auto) 0.1 Eos # (Auto) 0.0 Baso # (Auto) 0.0 Abs Immat Gran (auto) 0.03 Absolute Neuts (auto) 4.8 Absolute Nucleated RBC 0.000 Nucleated RBC % (auto) 0.0 PT INR VBG pH VBG pCO2 VBG pO2 VBG HCO3 VBG O2 Saturation VBG Base Excess Anion Gap 16 Estim Creat Clear Calc 75.6 Estimated GFR > 60 Random Glucose 304 H Lactic Acid Lactic Acid F/U @ 2Hr Calcium 9.8 D Total Bilirubin 0.7 Direct Bilirubin 0.2 AST 20 ALT 26 Alkaline Phosphatase 95 Troponin I High Sens 5.4 B-Natriuretic Peptide Total Protein 7.1 Albumin 4.5 COVID-19 (LESTER) COVID-19 Clin Com Influenza Type A (MATHEW) Influenza Type B (MATHEW) Influenza A & B Note 05/21/22 05/21/22 05/21/22 15:04 15:04 15:04 MCV MCH MCHC RDW Plt Count MPV Immature Gran % (Auto) Neut % (Auto) Lymph % (Auto) [place] % (Auto) Eos % (Auto) Baso % (Auto) Lymph # (Auto) [place] # (Auto) Eos # (Auto) Baso # (Auto) Abs Immat Gran (auto) Absolute Neuts (auto) Absolute Nucleated RBC Nucleated RBC % (auto) PT 10.6 INR 0.9 VBG pH VBG pCO2 VBG pO2 VBG HCO3 VBG O2 Saturation VBG Base Excess Anion Gap Estim Creat Clear Calc Estimated GFR Random Glucose Lactic Acid 2.4 H* Lactic Acid F/U @ 2Hr Calcium Total Bilirubin Direct Bilirubin AST ALT Alkaline Phosphatase Troponin I High Sens B-Natriuretic Peptide Total Protein Albumin COVID-19 (LESTER) Negative COVID-19 [facility] Com See Note Influenza Type A (MATHEW) Influenza Type B (MATHEW) Influenza A & B Note 05/21/22 05/21/22 05/21/22 15:04 15:04 15:09 MCV MCH MCHC RDW Plt Count MPV Immature Gran % (Auto) Neut % (Auto) Lymph % (Auto) [place] % (Auto) Eos % (Auto) Baso % (Auto) Lymph # (Auto) [place] # (Auto) Eos # (Auto) Baso # (Auto) Abs Immat Gran (auto) Absolute Neuts (auto) Absolute Nucleated RBC Nucleated RBC % (auto) PT INR VBG pH 7.34 VBG pCO2 93 VBG pO2 53 VBG HCO3 51 H VBG O2 Saturation 82.0 VBG Base Excess 19.4 Anion Gap Estim Creat Clear Calc Estimated GFR Random Glucose Lactic Acid Lactic Acid F/U @ 2Hr Calcium Total Bilirubin Direct Bilirubin AST ALT Alkaline Phosphatase Troponin I High Sens B-Natriuretic Peptide 25 Total Protein Albumin COVID-19 (LESTER) COVID-CoTweet Com Influenza Type A (MATHEW) Negative Influenza Type B (MATHEW) Negative Influenza A & B Note See Note 05/21/22 17:30 MCV MCH MCHC RDW Plt Count MPV Immature Gran % (Auto) Neut % (Auto) Lymph % (Auto) [place] % (Auto) Eos % (Auto) Baso % (Auto) Lymph # (Auto) [place] # (Auto) Eos # (Auto) Baso # (Auto) Abs Immat Gran (auto) Absolute Neuts (auto) Absolute Nucleated RBC Nucleated RBC % (auto) PT INR VBG pH VBG pCO2 VBG pO2 VBG HCO3 VBG O2 Saturation VBG Base Excess Anion Gap Estim Creat Clear Calc Estimated GFR Random Glucose Lactic Acid Lactic Acid F/U @ 2Hr 6.6 H* Calcium Total Bilirubin Direct Bilirubin AST ALT Alkaline Phosphatase Troponin I High Sens B-Natriuretic Peptide Total Protein Albumin COVID-19 (LESTER) COVID-CoTweet Com Influenza Type A (MATHEW) Influenza Type B (MATHEW) Influenza A & B Note Imaging Radiologist's Impressions: Impressions Chest X-Ray 05/21/22 16:16 IMPRESSION: No evidence for acute disease in the chest. Chronic volume loss to the left upper lobe and left apical pleural thickening similar to previous exams. Assessment and Plan (1) Acute and chronic respiratory failure: Status: Acute (2) COPD exacerbation: Status: Acute Plan 72-year-old male with history of asthma/COPD overlap, chronic hypoxemic and hypercapnic respiratory failure, hepatic cirrhosis, history of alcohol abuse, CAD, former smoker who quit 16 years ago, anxiety, hyperlipidemia, hypertension, history of lung cancer admitted for acute COPD exacerbation with acute on chronic hypoxemic hypercapnic respiratory failure. #Acute on chronic hypoxemic hypercapnic respiratory failure- secondary to COPD exacbation -requires between 2-3 L supplemental O2 at baseline -VBG with pH 7.34, pCO2 93 consistent with baseline, PO2 53, bicarb 51 -continue supplemental O2 to maintain oximetry 90-92% -treat COPD exacerbation as below # acute COPD exacerbation -CXR negative for pneumonia -negative for COVID-19, influenza -continue home inhalers -Solu-Medrol 60 mg b.i.d. -DuoNebs q.4h -albuterol q.2h p.r.n. -azithromycin 500 mg daily x3 days (D1) # lactic acidosis -likely related to albuterol use and metformin, not severe sepsis # [id number] type 2 diabetes with hyperglycemia -hyperglycemia likely in part related to steroid use -hold p.o. medications -Humalog on sliding scale -POC glucose -diabetic diet # hypertension-reasonably controlled -continue home antihypertensives #CAD/HLD -trops negative, no chest pain -continue statin, beta-arnold, aspirin, isosorbide # hepatic cirrhosis-compensated # chronic normocytic anemia-likely related to chronic disease -H/H baseline and above transfusion threshold # mood disorder -continue home meds DVT prophylaxis-Lovenox Full code Patient requires at least 2 midnights inpatient stay for management of COPD exacerbation with acute on chronic hypoxemic hypercapnic respiratory failure requiring increased supplemental O2 from baseline as well as IV steroids, antibiotics, and nebulizer treatments to prevent further respiratory decompensation Time Spent With Patient Time: Total time managing care of this patient today ____ minutes. Quality Stroke Does the patient have a stroke diagnosis?: No VTE Prior VTE?: No VTE Risk Level:: Medical - moderate - high VTE Device Contraindication: Treatment Not Indicated VTE Drug Contraindication: N/A - Med Ordered
[2022-05-21 19:33] LABS: Reflex Lactate? 2 Y
--- NOTE | 2022-05-21 20:02 | PHA.MEDREC ---
Pharmacy Consult ? Medication Reconciliation Pharmacy has completed the medication reconciliation.
[2022-05-21] MEDS: Azithromycin 500 MG in 0.9 % Sodium Chloride 250 ML 125 MG IV (20:05)
[2022-05-21 20:11] LABS: ~Lactic Acid-LAB USE ONLY 8.6 mmol/L (0.5-2.0)
--- NOTE | 2022-05-21 20:26 | PC.NURSE ---
pt a&o, denies any chest pain, pt still reports having some sob, pt does have a dry cough, Medicated per mar. Pt refusing Lovenox. Will notify provider. pt is sitting tripod at the bed side. Respiratory giving breathing treatment. Will continue to monitor.
--- NOTE | 2022-05-21 20:43 | PC.NURSE ---
Blood sugar elevated at 440, notified Venkatesh GALLO. Awaiting orders.
[2022-05-21 20:44] LABS: Glucose, Whole Blood 440 mg/dL (60-115)
[2022-05-21] MEDS: Insulin Regular, Human 100 UNIT/ML 3 ML VIAL IVPUSH (21:02)
[2022-05-21] MEDS: Insulin Lispro 100 UNIT/ML 3 ML VIAL SUBCUT (21:10)
[2022-05-21 21:16] LABS: Lactic Acid 9.1 mmol/L (0.5-2.0)
--- NOTE | 2022-05-21 21:18 | PC.NURSE ---
Notifed Dr. Riddle of lactic 9.1. 500ml of normal saline ordered, second line placed and medicated per Jun.
[2022-05-21] MEDS: 0.9 % Sodium Chloride 500 ML IV (21:35)
--- NOTE | 2022-05-21 21:37 | PC.NURSE ---
pt oob with assist to bathroom.
[2022-05-21 22:44] LABS: Reflex Lactate? Lactic Acid Added
[2022-05-21 23:07] LABS: Glucose, Whole Blood 476 mg/dL (60-115)
[2022-05-21] MEDS: Insulin Regular, Human 100 UNIT/ML 3 ML VIAL 10 UNIT IVPUSH (23:46)
[2022-05-21 23:54] LABS: ~Lactic Acid-LAB USE ONLY 6.9 mmol/L (0.5-2.0)
[2022-05-22] VITALS (11 sets, daily range): BP systolic 104–145; BP diastolic 60–81; PULSE 80–102; RESP 12–19; TEMP 36.4–36.8; O2SAT 90–96
[2022-05-22] MEDS: 0.9 % Sodium Chloride 500 ML IV (00:31)
[2022-05-22] MEDS: 0.9 % Sodium Chloride Flush 3 ML SYRINGE IVFLUSH ×4 (01:04→19:28)
[2022-05-22 01:36] LABS: Reflex Lactate? 2 Y
[2022-05-22 01:40] LABS: Glucose, Whole Blood 388 mg/dL (60-115)
[2022-05-22 02:24] LABS: ~Lactic Acid-LAB USE ONLY 2.7 mmol/L (0.5-2.0)
[2022-05-22 06:02] LABS: Glucose, Whole Blood 176 mg/dL (60-115)
[2022-05-22] MEDS: methylPREDNISolone Sod Succ 125 MG/2 ML VIAL 60 MG IVPUSH ×2 (06:04→18:43)
--- NOTE | 2022-05-22 06:07 | PC.NURSE ---
Pt Medicated per Jun. Pt sitting up at the bedside, no respiratory distress at this time. Will continue to monitor, Poc has improved and Lactic acid.
[2022-05-22 07:33] LABS: Glucose, Whole Blood 165 mg/dL (60-115)
[2022-05-22] MEDS: Insulin Lispro 100 UNIT/ML 3 ML VIAL SUBCUT ×4 (07:49→21:04)
[2022-05-22] MEDS: Albuterol/Iprat 2.5/0.5MG 3 ML AMPUL.NEB INHALE ×4 (07:57→20:37)
--- NOTE | 2022-05-22 09:13 | MHC.CM.PN ---
PT REPORTS HE LIVES WITH HIS AND GRANDSON HE IS INDEPENDENT WITH CARE HAS HOME O2 VIA [facility] A NEBULIZER AND CPAP HE ADMITS HE DOES NOT USE THE CPAP HE HAS NO SERVICES IN THE HOME COPY OF HCP REQUESTED, HE REPORTS IT IS HIS , TYE HE IS COVID [place] PCP: SANJU HAYWARD IMM DELIVERED, COPY SENT TO [facility] CURRENT DC PLAN IS HOME WITH NO SERVICES FAMILY TO TRANSPORT
--- NOTE | 2022-05-22 12:30 | HO.PM.IMPN ---
Subjective Subjective Date of Service: 05/22/22 <DARRYL Galarza - Last Filed: 05/22/22 12:42> 05/23/22 <Sadi Anguiano MD - Last Filed: 05/23/22 10:39> Interval History: Seen in follow up for COPD exaberbation, acute on chronic hypoxemic respiratory failure Interval history: Still feeling sob with productive cough. afebrile. Reports generalized weakness <DARRYL Galarza - Last Filed: 05/22/22 12:42> Review of Systems Review of Systems: Yes all other systems are reviewed and are negative <DARRYL Galarza - Last Filed: 05/22/22 12:42> Physical Exam Vital Signs: Vital Signs: Last Vital Signs Temp 98.0 F 05/22/22 05:56 Pulse 97 05/22/22 11:32 Resp 18 05/22/22 11:32 BP 127/71 05/22/22 05:56 Pulse Ox 95 05/22/22 05:56 O2 Del Method 05/22/22 05:56 O2 Flow Rate 3 05/22/22 05:56 Oxygen Flow Rate 2 05/21/22 13:47 BMI result Body Mass Index 31.4 <DARRYL Galarza - Last Filed: 05/22/22 12:42> Constitutional - Awake and Alert, No apparent distress Eyes - PERRLA, EOMI Cardiovascular - S1S2, RRR, No edema Respiratory - Normal lung expansion, Normal respiratory effort, No respiratory distress, scattered expiratory wheezing, diminished RLL with faint rhonchi Musculoskeletal - Normal inspection, normal ROM Skin - Warm/Dry Neurological - Alert & oriented x3 Psychological - Appropriate affect <DARRYL Galarza - Last Filed: 05/22/22 12:42> Objective Data Active Medications Acetaminophen (Acetaminophen 325 Mg Tablet) 650 mg PO Q6H PRN PRN Reason: Pain, Mild (Pain Scale 1-3) Albuterol Sulfate (Albuterol Sulfate (0.083%) 2.5 Mg/3 Ml Vial.Neb) 2.5 mg INHALE Q2H PRN PRN Reason: shortness of breath and wheezi Albuterol/Ipratropium (Albuterol/Iprat 2.5/0.5mg 3 Ml Ampul.Neb) 3 ml INHALE RQ4H WHILE AWAKE [facility] Last Admin: 05/22/22 11:32 Dose: 3 ml Documented By: ROLY Dextrose (Dextrose 50 % 25 Gm/50 Ml Syringe) 25 gm IVPUSH Q15M PRN; Protocol PRN Reason: per Hypoglycemia Standing Ord. Docusate Sodium (Docusate Sodium 100 Mg Capsule) 100 mg PO DAILY PRN PRN Reason: Constipation Enoxaparin Sodium (Enoxaparin Sodium 40 Mg/0.4 Ml Syringe) 40 mg SUBCUT Q24H [facility] Last Admin: 05/21/22 20:06 Dose: Not Given Documented By: MAYRA Non-Admin Reason: Patient Refused Glucose (Glucose Gel 15 Gm Gel..Gram.) 15 gm PO Q15M PRN; Protocol PRN Reason: per Hypoglycemia Standing Ord. Azithromycin 500 mg/ Sodium (Chloride) 250 mls @ 125 mls/hr IV Q24H [facility] Stop: 05/23/22 20:59 Last Infusion: 05/22/22 01:52 Dose: 125 mls/hr Documented By: MAYRA Insulin Human Lispro (Insulin Lispro 100 Unit/Ml 3 Ml Vial) 0 unit SUBCUT QIDACHS [facility]; Protocol Last Admin: 05/22/22 07:49 Dose: 2 unit Documented By: LESLEE Methylprednisolone Sodium Succinate (Methylprednisolone Sod Succ 125 Mg/2 Ml Vial) 60 mg IVPUSH Q12H [facility] Last Admin: 05/22/22 06:04 Dose: 60 mg Documented By: MAYRA Ondansetron HCl (Ondansetron Hcl 4 Mg/2 Ml Vial) 4 mg IVPUSH Q8H PRN PRN Reason: Nausea and Vomiting Pharmacy Consult (Consult Rx Perform Med Rec) 1 each MISCELLANE ONCE PRN PRN Reason: Consult order Sodium Chloride (0.9 % Sodium Chloride Flush 3 Ml Syringe) 3 ml IVFLUSH QSHIFT [facility] Last Admin: 05/22/22 07:52 Dose: 3 ml Documented By: LESLEE <DARRYL Galarza - Last Filed: 05/22/22 12:42> Labs CBC & Chem 7: 05/21/22 15:04 05/21/22 15:04 <DARRYL Galarza - Last Filed: 05/22/22 12:42> Labs: Laboratory Results - last 24 hr 02/13/23 02/13/23 02/13/23 15:04 15:04 15:04 MCV 98.0 MCH 29.4 MCHC 30.0 L RDW 12.7 Plt Count 162 MPV 10.2 Immature Gran % (Auto) 0.5 H Neut % (Auto) 85.5 H Lymph % (Auto) 11.3 L [place] % (Auto) 2.1 Eos % (Auto) 0.2 Baso % (Auto) 0.4 Lymph # (Auto) 0.6 L [place] # (Auto) 0.1 Eos # (Auto) 0.0 Baso # (Auto) 0.0 Abs Immat Gran (auto) 0.03 Absolute Neuts (auto) 4.8 Absolute Nucleated RBC 0.000 Nucleated RBC % (auto) 0.0 PT INR VBG pH VBG pCO2 VBG pO2 VBG HCO3 VBG O2 Saturation VBG Base Excess Anion Gap 16 Estim Creat Clear Calc 75.6 Estimated GFR > 60 POC Glucose Random Glucose 304 H Lactic Acid Lactic Acid F/U @ 2Hr Lactic Acid F/U @ 4Hr Calcium 9.8 D Total Bilirubin 0.7 Direct Bilirubin 0.2 AST 20 ALT 26 Alkaline Phosphatase 95 Troponin I High Sens 5.4 B-Natriuretic Peptide Total Protein 7.1 Albumin 4.5 COVID-19 ([facility]) COVID-19 Clin Com Influenza Type A (MATHEW) Influenza Type B (MATHEW) Influenza A & B Note 05/21/22 05/21/22 05/21/22 15:04 15:04 15:04 MCV MCH MCHC RDW Plt Count MPV Immature Gran % (Auto) Neut % (Auto) Lymph % (Auto) [place] % (Auto) Eos % (Auto) Baso % (Auto) Lymph # (Auto) [place] # (Auto) Eos # (Auto) Baso # (Auto) Abs Immat Gran (auto) Absolute Neuts (auto) Absolute Nucleated RBC Nucleated RBC % (auto) PT 10.6 INR 0.9 VBG pH VBG pCO2 VBG pO2 VBG HCO3 VBG O2 Saturation VBG Base Excess Anion Gap Estim Creat Clear Calc Estimated GFR POC Glucose Random Glucose Lactic Acid 2.4 H* Lactic Acid F/U @ 2Hr Lactic Acid F/U @ 4Hr Calcium Total Bilirubin Direct Bilirubin AST ALT Alkaline Phosphatase Troponin I High Sens B-Natriuretic Peptide Total Protein Albumin COVID-19 ([facility]) Negative COVID-[facility] Clin Com See Note Influenza Type A (MATHEW) Influenza Type B (MATHEW) Influenza A & B Note 05/21/22 05/21/22 05/21/22 15:04 15:04 15:09 MCV MCH MCHC RDW Plt Count MPV Immature Gran % (Auto) Neut % (Auto) Lymph % (Auto) [place] % (Auto) Eos % (Auto) Baso % (Auto) Lymph # (Auto) [place] # (Auto) Eos # (Auto) Baso # (Auto) Abs Immat Gran (auto) Absolute Neuts (auto) Absolute Nucleated RBC Nucleated RBC % (auto) PT INR VBG pH 7.34 VBG pCO2 93 VBG pO2 53 VBG HCO3 51 H VBG O2 Saturation 82.0 VBG Base Excess 19.4 Anion Gap Estim Creat Clear Calc Estimated GFR POC Glucose Random Glucose Lactic Acid Lactic Acid F/U @ 2Hr Lactic Acid F/U @ 4Hr Calcium Total Bilirubin Direct Bilirubin AST ALT Alkaline Phosphatase Troponin I High Sens B-Natriuretic Peptide 25 Total Protein Albumin COVID-19 ([facility]) COVID-[facility] Com Influenza Type A (MATHEW) Negative Influenza Type B (MATHEW) Negative Influenza A & B Note See Note 05/21/22 05/21/22 05/21/22 17:30 19:41 20:40 MCV MCH MCHC RDW Plt Count MPV Immature Gran % (Auto) Neut % (Auto) Lymph % (Auto) [place] % (Auto) Eos % (Auto) Baso % (Auto) Lymph # (Auto) [place] # (Auto) Eos # (Auto) Baso # (Auto) Abs Immat Gran (auto) Absolute Neuts (auto) Absolute Nucleated RBC Nucleated RBC % (auto) PT INR VBG pH VBG pCO2 VBG pO2 VBG HCO3 VBG O2 Saturation VBG Base Excess Anion Gap Estim Creat Clear Calc Estimated GFR POC Glucose Random Glucose Lactic Acid 9.1 H* Lactic Acid F/U @ 2Hr 6.6 H* Lactic Acid F/U @ 4Hr 8.6 H* Calcium Total Bilirubin Direct Bilirubin AST ALT Alkaline Phosphatase Troponin I High Sens B-Natriuretic Peptide Total Protein Albumin COVID-19 ([facility]) COVID-19 Clin Com Influenza Type A (MATHEW) Influenza Type B (MATHEW) Influenza A & B Note 05/21/22 05/21/2205/21/23 20:41 23:01 23:25 MCV MCH MCHC RDW Plt Count MPV Immature Gran % (Auto) Neut % (Auto) Lymph % (Auto) [place] % (Auto) Eos % (Auto) Baso % (Auto) Lymph # (Auto) [place] # (Auto) Eos # (Auto) Baso # (Auto) Abs Immat Gran (auto) Absolute Neuts (auto) Absolute Nucleated RBC Nucleated RBC % (auto) PT INR VBG pH VBG pCO2 VBG pO2 VBG HCO3 VBG O2 Saturation VBG Base Excess Anion Gap Estim Creat Clear Calc Estimated GFR POC Glucose 440 H* 476 H* Random Glucose Lactic Acid Lactic Acid F/U @ 2Hr 6.9 H* Lactic Acid F/U @ 4Hr Calcium Total Bilirubin Direct Bilirubin AST ALT Alkaline Phosphatase Troponin I High Sens B-Natriuretic Peptide Total Protein Albumin COVID-19 ([facility]) COVID-19 Clin Com Influenza Type A (MATHEW) Influenza Type B (MATHEW) Influenza A & B Note 05/22/22 05/22/22 05/22/22 01:36 01:54 05:58 MCV MCH MCHC RDW Plt Count MPV Immature Gran % (Auto) Neut % (Auto) Lymph % (Auto) [place] % (Auto) Eos % (Auto) Baso % (Auto) Lymph # (Auto) [place] # (Auto) Eos # (Auto) Baso # (Auto) Abs Immat Gran (auto) Absolute Neuts (auto) Absolute Nucleated RBC Nucleated RBC % (auto) PT INR VBG pH VBG pCO2 VBG pO2 VBG HCO3 VBG O2 Saturation VBG Base Excess Anion Gap Estim Creat Clear Calc Estimated GFR POC Glucose 388 H* 176 H Random Glucose Lactic Acid Lactic Acid F/U @ 2Hr Lactic Acid F/U @ 4Hr 2.7 H* Calcium Total Bilirubin Direct Bilirubin AST ALT Alkaline Phosphatase Troponin I High Sens B-Natriuretic Peptide Total Protein Albumin COVID-19 ([facility]) COVID-19 Clin Com Influenza Type A (MATHEW) Influenza Type B (MATHEW) Influenza A & B Note 05/22/22 07:26 MCV MCH MCHC RDW Plt Count MPV Immature Gran % (Auto) Neut % (Auto) Lymph % (Auto) [place] % (Auto) Eos % (Auto) Baso % (Auto) Lymph # (Auto) [place] # (Auto) Eos # (Auto) Baso # (Auto) Abs Immat Gran (auto) Absolute Neuts (auto) Absolute Nucleated RBC Nucleated RBC % (auto) PT INR VBG pH VBG pCO2 VBG pO2 VBG HCO3 VBG O2 Saturation VBG Base Excess Anion Gap Estim Creat Clear Calc Estimated GFR POC Glucose 165 H Random Glucose Lactic Acid Lactic Acid F/U @ 2Hr Lactic Acid F/U @ 4Hr Calcium Total Bilirubin Direct Bilirubin AST ALT Alkaline Phosphatase Troponin I High Sens B-Natriuretic Peptide Total Protein Albumin COVID-19 ([facility]) COVID-19 Clin Com Influenza Type A (MATHEW) Influenza Type B (MATHEW) Influenza A & B Note <DARRYL Galarza - Last Filed: 05/22/22 12:42> Assessment and Plan (1) Acute and chronic respiratory failure: Status: Acute <DARRYL Galarza - Last Filed: 05/22/22 12:42> (2) COPD exacerbation: Status: Acute <DARRYL Galarza - Last Filed: 05/22/22 12:42> Assessment and Plan: 72-year-old male with history of asthma/COPD overlap, chronic hypoxemic and hypercapnic respiratory failure, hepatic cirrhosis, history of alcohol abuse, CAD, former smoker who quit 16 years ago, anxiety, hyperlipidemia, hypertension, history of lung cancer admitted for acute COPD exacerbation with acute on chronic hypoxemic hypercapnic respiratory failure. #Acute on chronic hypoxemic hypercapnic respiratory failure- secondary to COPD exacbation -requires between 2-3 L supplemental O2 at baseline -continue supplemental O2 to maintain oximetry 90-92% -treat COPD exacerbation as below # acute COPD exacerbation -CXR negative for pneumonia -negative for COVID-19, influenza -continue home inhalers -Solu-Medrol 60 mg b.i.d. -DuoNebs q.4h -albuterol q.2h p.r.n. -azithromycin 500 mg daily x3 days (D2). Takes azithro MWF at home # lactic acidosis -likely related to albuterol use and metformin, not severe sepsis # [id number] type 2 diabetes with hyperglycemia -hyperglycemia likely in part related to steroid use -hold p.o. medications -Humalog on sliding scale -POC glucose -diabetic diet # hypertension-reasonably controlled -continue home antihypertensives #CAD/HLD -trops negative, no chest pain -continue statin, beta-arnold, aspirin, isosorbide # hepatic cirrhosis-compensated # chronic normocytic anemia-likely related to chronic disease -H/H baseline and above transfusion threshold # mood disorder -continue home meds DVT prophylaxis-Lovenox Full code Patient requires ongoing inpatient stay for management of COPD exacerbation with acute on chronic hypoxemic hypercapnic respiratory failure requiring increased supplemental O2 from baseline as well as IV steroids, antibiotics, and nebulizer treatments to prevent further respiratory decompensation <DARRYL Galarza - Last Filed: 05/22/22 12:42> Time Spent With Patient Time: Total time managing care of this patient today ____ minutes. <DARRYL Galarza - Last Filed: 05/22/22 12:42> Quality Stroke Does the patient have a stroke diagnosis?: No <DARRYL Galarza - Last Filed: 05/22/22 12:42> VTE Prior VTE?: No <DARRYL Galarza - Last Filed: 05/22/22 12:42> VTE Risk Level:: Medical - moderate - high <DARRYL Galarza - Last Filed: 05/22/22 12:42> VTE Device Contraindication: Treatment Not Indicated <DARRYL Galarza - Last Filed: 05/22/22 12:42> VTE Drug Contraindication: N/A - Med Ordered <DARRYL Galarza - Last Filed: 05/22/22 12:42>
[2022-05-22 13:40] LABS: Glucose, Whole Blood 339 mg/dL (60-115)
[2022-05-22] MEDS: Multivitamin TABLET 1 TAB PO (13:52)
[2022-05-22] MEDS: Aspirin Enteric Coated 81 MG TABLET.DR PO (13:52)
[2022-05-22] MEDS: Escitalopram Oxalate 20 MG TABLET PO (13:52)
[2022-05-22] MEDS: Isosorbide Mononitrate 30 MG TAB.ER.24H PO (13:52)
[2022-05-22 18:16] LABS: Glucose, Whole Blood 278 mg/dL (60-115)
[2022-05-22] MEDS: Azithromycin 500 MG in 0.9 % Sodium Chloride 250 ML 125 MG IV (19:27)
[2022-05-22] MEDS: Atorvastatin Calcium 80 MG TABLET PO (19:28)
[2022-05-22 20:03] LABS: Glucose, Whole Blood 329 mg/dL (60-115)
[2022-05-22] MEDS: LORazepam 0.5 MG TABLET PO (23:07)
--- NOTE | 2022-05-23 03:37 | PC.NURSE ---
Lab called for a positive blood culture of gram positive cocci in cluster, result relayed to Dr. Riddle.
[2022-05-23 04:00] VITALS: BP 136/64; PULSE 100; RESP 17; TEMP 36.3; O2SAT 94
[2022-05-23] MEDS: methylPREDNISolone Sod Succ 125 MG/2 ML VIAL 60 MG IVPUSH (06:13)
[2022-05-23] MEDS: Omeprazole 20 MG CAPSULE.DR PO (06:13)
[2022-05-23 07:16] VITALS: BP 132/70; PULSE 99; RESP 22; TEMP 36.5; O2SAT 91
[2022-05-23 07:32] LABS: Glucose, Whole Blood 206 mg/dL (60-115)
[2022-05-23] MEDS: Albuterol/Iprat 2.5/0.5MG 3 ML AMPUL.NEB INHALE ×2 (09:14→13:46)
[2022-05-23 09:15] VITALS: RESP 18; O2SAT 93
[2022-05-23] MEDS: Multivitamin TABLET 1 TAB PO (09:54)
[2022-05-23] MEDS: Calcium + Vitamin D 250 MG TABLET 500 MG PO (09:54)
[2022-05-23] MEDS: Insulin Lispro 100 UNIT/ML 3 ML VIAL SUBCUT ×2 (09:54→12:54)
[2022-05-23] MEDS: Aspirin Enteric Coated 81 MG TABLET.DR PO (09:54)
[2022-05-23] MEDS: Escitalopram Oxalate 20 MG TABLET PO (09:54)
[2022-05-23] MEDS: Isosorbide Mononitrate 30 MG TAB.ER.24H PO (09:54)
[2022-05-23] MEDS: 0.9 % Sodium Chloride Flush 3 ML SYRINGE IVFLUSH (09:55)
--- NOTE | 2022-05-23 10:39 | P.DS_ITS ---
DS: Providers Provider Date of Service: 05/23/22 Date of admission: 05/21/22 18:37 Primary care physician: Anne-Marie Muro MD DS: Diagnosis Discharge Diagnosis (1) Acute and chronic respiratory failure: Status: Acute (2) COPD exacerbation: Status: Acute DS: Summary Hospital Course Hospital Course: Date of Service: 05/21/22 Attending physician on admission: Sadi Anguiano Chief Complaint: sob 72-year-old male with history of asthma/COPD overlap, chronic hypoxemic and hypercapnic respiratory failure, hepatic cirrhosis, history of alcohol abuse, former smoker who quit 16 years ago, anxiety, hyperlipidemia, hypertension, history of lung cancer presented to the ED earlier this morning via EMS for evaluation of shortness of breath and hypoxia.? Per EMS, patient was hypoxic at 83% on arrival and has required up to 6 L supplemental O2 in the ED. Has also had productive cough with increased sputum production.? Chest x-ray negative for pneumonia.? On arrival, vital signs normal except for hypoxia as noted.? No iker kocytosis.? Renal function baseline.? Sodium 140, potassium 4.4, chloride 87, CO2 41, glucose 304, initial lactic acid 2.4, follow-up lactic acid at 02:00 hours 6.6.? Troponins negative, BNP 25.? VBG showing pH of 7.34, pCO2 93 consistent with baseline, PO2 53, bicarb 51.? Patient negative for COVID-19, influenza.? Treated with 125 mg IV Solu-Medrol, DuoNeb, and IV magnesium.? Patient states that for the last month, he has been on a prednisone taper prescribed by his lithograph press feeder, Dr. Marr. To be admitted for COPD exacerbation with acute on chronic hypoxemic, hypercapnic respiratory failure.? He denies any fevers, chills, sinus congestion, sore throat, headaches, lightheadedness, abdominal pain, nausea, vomiting, diarrhea, constipation, palpitations, or chest pain.? Denies any known sick contacts. Hospital course 72-year-old male with history of asthma/COPD overlap, chronic hypoxemic and hypercapnic respiratory failure, hepatic cirrhosis, history of alcohol abuse, CAD, former smoker who quit 16 years ago, anxiety, hyperlipidemia, hypertension, history of lung cancer admitted for acute COPD exacerbation with acute on chronic hypoxemic hypercapnic respiratory failure. #Acute on chronic hypoxemic hypercapnic respiratory failure- secondary to COPD exacbation, patient was admitted to medical floor was treated with IV steroids, scheduled and as needed DuoNeb updraft treatment and IV azithromycin patient responded well to above treatment at present seems to be at baseline 2 L of oxygen, chest x-ray showed no acute infiltrate, as per patient he has underwent pulmonary rehab without significant improvement, will discharge patient home on tapering dose of steroids recommend to continue home inhalers and 3 times per week azithromycin and to have outpatient follow-up with primary lithograph press feeder his strongly recommended to follow low-calorie diet and exercise as tolerated. Patient noted to have lactic acidosis likely related to albuterol use and metformin no sepsis was noted In regard to hph-suzifhs-sowmixqqa type 2 diabetes with hyperglycemia recommend to continue home medications and follow diabetic diet History of coronary artery disease/hyperlipidemia and hypertension-continue low- dose metoprolol, statins, and aspirin Time Spent with Patient Time attestation: Total time managing care of this patient today ____ minutes. Discharge coordination time: Greater than 30 minutes Quality: Safe Use of Opioids Does Pt have an Active Cancer Diagnosis on the Problem List?: No Quality: Stroke Does the patient have a stroke diagnosis?: No Physical Exam Vital Signs: Vital Signs: Last Vital Signs Temp 97.7 F 05/23/22 07:16 Pulse 99 05/23/22 07:16 Resp 18 05/23/22 09:15 BP 132/70 05/23/22 07:16 Pulse Ox 91 L 05/23/22 07:16 O2 Del Method 05/23/22 07:16 O2 Flow Rate 2 05/23/22 07:16 Oxygen Flow Rate 2 05/21/22 13:47 BMI result Body Mass Index 31.4 Const: Other: Constitutional - Awake and Alert, No apparent distress Eyes - PERRLA, EOMI Cardiovascular - S1S2, RRR, No edema Respiratory - Normal respiratory effort, diminished breath sound, no wheeze Abdomen soft nontender Musculoskeletal - Normal inspection, normal ROM Skin - Warm/Dry Neurological - Alert & oriented x3 Psychological -appropriate affect Extremities pitting edema DS: Data Data Completed and Pending Labs on day of discharge: Laboratory Results - last 24 hr 05/22/22 05/22/22 05/22/22 13:35 18:13 19:44 POC Glucose 339 H 278 H 329 H 05/23/22 07:27 POC Glucose 206 H Preliminary micro results at discharge 05/21/22 15:04 Blood Culture - Preliminary Blood - Venous Prelim: GPC Gram Stain only 05/21/22 15:04 Blood Culture - Preliminary Blood - Venous Prelim: GPC Gram Stain only Discharge Plan Discharge Anticipated Discharge Date/Time: 05/23/22 10:24 Patient Disposition: Home, Self-Care Discharge Diagnosis: Acute on chronic hypoxic and hypercarbic respiratory failure COPD exacerbation Referrals: Anne-Marie Muro MD [Primary Care Provider] - 1 Week Discharge Medications: New prednisone 10 mg tablet 10 mg PO DAILY Qty: 14 0RF Rx Instructions: Take prednisone 10 mg 1 tablet daily for 1 week, then take half tablet (5mg )by mouth daily times 14 days. Continued multivitamin [Daily-Kathleen] Tablet 1 tab PO DAILY Qty: 90 3RF metformin 1,000 mg tablet 1,000 mg PO BID Qty: 180 4RF (DME) FreeStyle Lite Strips Strip See Rx Instructions .Route Qty: 100 5RF Rx Instructions: check fasting glucose BID ac (DME) blood-glucose meter [FreeStyle Lite Meter] Kit See Rx Instructions .Route Qty: 1 0RF Rx Instructions: As directed atorvastatin 80 mg tablet 80 mg PO BEDTIME Qty: 90 3RF lorazepam 0.5 mg tablet 0.5 mg PO DAILY PRN (Reason: anxiety) Qty: 30 0RF metoprolol tartrate 25 mg tablet 25 mg PO BID Qty: 180 1RF isosorbide mononitrate 30 mg tablet extended release 24 hr 30 mg PO DAILY budesonide-formoterol [Symbicort] 160-4.5 mcg/actuation Hfa Aerosol Inhaler 2 puff INHALATION DAILY omeprazole 20 mg capsule,delayed release(DR/EC) 20 mg PO DAILY@0630 glipizide 5 mg tablet See Rx Instructions PO BID Rx Instructions: 10 mg in a.m. and 5 mg q.p.m. with meals orally 2 times a day; calcium carbonate-vitamin D3 600 mg-10 mcg (400 unit) tablet 1 tab PO DAILY aspirin 81 mg Tablet,Delayed Release (Dr/Ec) 81 mg PO DAILY furosemide 20 mg tablet 20 mg PO DAILY azithromycin 500 mg tablet 500 mg PO MOWEFR@0900 albuterol sulfate 90 mcg/actuation HFA aerosol inhaler 2 puff PO Q4H PRN (Reason: Shortness Of Breath Or Wheezing) ipratropium-albuterol 0.5 mg-3 mg(2.5 mg base)/3 mL solution for nebulization 3 ml inhalation Q6H PRN (Reason: COPD) escitalopram oxalate 20 mg tablet 20 mg PO DAILY Qty: 30 5RF Tradjenta 5 mg tablet 5 mg PO QAM Qty: 30 5RF Discharge Orders: Discharge Order (Routine); Ordered 05/23/22 Ordered By: Sadi Anguiano Diet: Diabetic diet Activity on Discharge: As tolerated Stand Alone Forms: Patient Portal Discharge page Care Plan Goals: Take prednisone 10 mg 1 tablet daily for 7 days followed by 1/2 tab of 10mg prednisone, (5 mg) daily times 14 days Keeps leg elevated, follow low-carbohydrate diet Health Concerns: Diabetes mellitus strictly follow low-calorie diet/exercise as tolerated Plan of Treatment: Outpatient follow-up with primary care physician and lithograph press feeder call to make appointment Assessment: As directed
--- NOTE | 2022-05-23 11:15 | MHC.CM.PN ---
PT MEDICALLY CLEARED FOR D/C HOME W/COMFORT PLUS [facility] FOR HOME PT, FAMILY WILL TRANSPORT
[2022-05-23 11:16] LABS: Glucose, Whole Blood 372 mg/dL (60-115)
--- NOTE | 2022-05-23 12:19 | W.MHC.F2F ---
Service Date Service Date: 05/23/22 Encounter Date of encounter: 05/23/22 Reasons for Services Signs and symptoms assessed: Advanced COPD oxygen dependent shortness of breath with activity Reason for senior living: diabetic teaching and medication management Reason for physical therapy: home safety and mobility Homebound: Leaving the home is medically contraindicated at this time without the asist of a device and/or another person due th the listed conditions above and below. Reason homebound: shortness of breath with minimal effort Certification: Based on the above findings, I certify that this patient is confined to the home and needs intermittent senior living care, physical therapy and/or speech therapy, or continues to need occupational therapy. The patient is under my care, and I have initiated the establishment of the plan of care. The patient will be followed by a physician who will periodically review the plan of care. Time Spent With Patient Time: Total time managing care of this patient today ____ minutes.
[2022-05-23 13:48] VITALS: PULSE 101; RESP 18; O2SAT 94
== END 2022-05-23 14:20 | disposition home or self-care (01) | DRG 190 ==
LOC: HO.ED 20:01 → HO.EDOVER 20:25 → HO.S3 05-22 17:15
PROVIDERS: Admitting Provider Physician Assistant; Emergency Provider Emergency Medicine; PCP Internal Medicine; Visit Provider Hospitalist
DX: J44.1 Chronic obstructive pulmonary disease with (acute) exacerbation (principal); J96.21 Acute and chronic respiratory failure with hypoxia; J96.22 Acute and chronic respiratory failure with hypercapnia; E87.20 Acidosis, unspecified; F10.11 Alcohol abuse, in remission; E11.65 Type 2 diabetes mellitus with hyperglycemia; D63.8 Anemia in other chronic diseases classified elsewhere; K74.60 Unspecified cirrhosis of liver; I10 Essential (primary) hypertension; F41.1 Generalized anxiety disorder; Z20.822 Contact with and (suspected) exposure to COVID-19; Z87.891 Personal history of nicotine dependence; Z85.118 Personal history of other malignant neoplasm of bronchus and lung; Z99.81 Dependence on supplemental oxygen; Z88.8 Allergy status to other drugs, medicaments and biological substances; Z79.82 Long term (current) use of aspirin; Z79.84 Long term (current) use of oral hypoglycemic drugs; Z79.899 Other long term (current) drug therapy
CPT/HCPCS: 36415; 71045; 80048; 80076; 82803; 82947; 83605; 83880; 84484; 85025; 85610; 87040; 87077; 87147; 87186; 87205; 87502; 87635; 93005; 94640; 97161; 99285; J0456; J1650; J2930; J3475

== ENCOUNTER 2022-06-07 18:04 | Inpatient (IN) | payer MEDICARE, SELFPAY ==
--- NOTE | ~2022-06-07 | XR_ITS ---
EXAMINATION: PORTABLE CHEST 1 VIEW CLINICAL INFORMATION: dyspnea . COMPARISON: Prior studies including the most recent 05/21/2022. TECHNIQUE: Portable frontal view of the chest was obtained. FINDINGS: Lungs well-expanded. The left apical masslike consolidation is again seen with associated right apical volume loss and retraction of adjacent structures. This is chronic process seen on prior studies including the 08/03/2021 CT scan. No acute infiltrate, effusion, edema, or pneumothorax. Cardiac silhouette is otherwise within normal limits for size. XR/XR chest 1V IMPRESSION: Chronic appearing changes similar to the 05/21/2022 study. This includes the focal volume loss and retraction of the left upper lobe. No acute superimposed process. No acute process seen otherwise.
[2022-06-07 18:22] VITALS: BP 114/56; BP 133/77; PULSE 65; PULSE 70; RESP 20; TEMP 36.8; O2SAT 96; O2SAT 97; BMI 32.3
--- NOTE | 2022-06-07 18:26 | ECG_ITS ---
Test Reason : SOB Blood Pressure : / mmHG Vent. Rate : 068 BPM Atrial Rate : 068 BPM P-R Int : 144 ms QRS Dur : 086 ms QT Int : 390 ms P-R-T Axes : 031 083 064 degrees QTc Int : 414 ms Normal sinus rhythm Normal ECG When compared with ECG of 21-MAY-2022 14:55, No significant change was found Referred By: Generic ED Physician Electronically Signed By:SMITH TREVIÑO MD
[2022-06-07 18:54] LABS: MANUAL DIFF FLAG NO
[2022-06-07 18:58] LABS: Basophils Percent Auto 0.6 % (0-2); Eosinophils Absolute Auto 0.1 X10*3/uL (0.0-0.4); Eosinophils Percent Auto 1.3 % (0-4); Hematocrit 40.4 % (42.0-52.0); Imm Gran Abs Auto 0.03 X10*3/uL (0.00-0.03); Imm Gran Pct Auto 0.6 % (0.0-0.4); Lymphocytes Absolute Auto 1.2 X10*3/uL (1.2-4.9); Mean Corpuscular HGB Conc 29.7 g/dl (31.0-36.0); Mean Corpuscular Hemoglobin 28.4 pg (27.0-33.0); Mean Corpuscular Volume 95.7 fL (80.0-98.0); Mean Platelet Volume 10.4 fL (9.4-12.4); Monocytes Absolute Auto 0.5 X10*3/uL (0.1-1.2); Monocytes Percent Auto 9.4 % (2-11); Neutrophils Absolute Auto 3.6 x10*3/uL (2.0-8.3); Neutrophils Percent Auto 66.1 % (45-73); Platelet Count 161 X10*3/uL (160-400); Red Blood Count 4.22 X10*6/uL (4.60-5.80); Red Cell Distribution Width 12.9 % (11.0-16.0); White Blood Count 5.4 X10*3/uL (4.8-10.8)
[2022-06-07 19:03] LABS: Appearance Urine Clear; Color Urine Yellow; Glucose Urine UA Negative (Negative); Leukocyte Esterase Urine Small (1+) (Negative); Nitrite Urine Negative (Negative); PH >= 9.0 (5.0-9.0); UMIC TRIGGER UACC YES; Urine Blood Negative (Negative); Urine Ketones Trace mg/dL (Negative); Urine Protein 30 (1+) mg/dL (Neg-Trace)
[2022-06-07 19:09] LABS: COVID-19 Test Negative (Negative); IDNOW Serial# 16C4AD1C
[2022-06-07 19:11] LABS: Bacteria Urine None Seen (None Seen); Hyaline Casts Urine 0-2 /LPF (0-2); RBC Urine 0-2 /HPF (0-2); Squamous Epithelial Cell Urine 0-2 /HPF (0-2); UACC Culture Trigger YES; WBC Urine 0-5 /HPF (0-5)
[2022-06-07 19:23] VITALS: BP 108/51; PULSE 68; RESP 16; TEMP 36.8; O2SAT 97
--- NOTE | 2022-06-07 19:40 | MHC.EDTECH ---
repeated labs drawn and sent to lab .
[2022-06-07 20:00] LABS: Alanine Aminotransferase 24 U/L (0-40); Albumin Level 3.8 g/dL (3.5-5.0); Alkaline Phosphatase 77 U/L (39-117); Anion Gap 13 (12-20); Aspartate Amino Transferase 23 U/L (5-37); Bilirubin Total 0.5 mg/dL (0.0-1.0); Blood Urea Nitrogen 11 mg/dL (9-16); Calcium 9.1 mg/dL (8.4-10.2); Carbon Dioxide 37 mmol/L (22-29); Chloride 94 mmol/L (96-108); Creatinine Clr Calc Pharmacy 90.2; Estimated Glomerular Filt Rate > 60; Glucose Random 126 mg/dL (60-115); Sodium 140 mmol/L (135-145); Total Protein 6.4 g/dL (6.5-8.0)
[2022-06-07] MEDS: Albuterol Sulfate (0.083%) 2.5 MG/3 ML VIAL.NEB 10 MG INHALE (20:17)
[2022-06-07 20:18] VITALS: PULSE 66; RESP 18; O2SAT 94
--- NOTE | 2022-06-07 20:20 | ED.SOB ---
HPI - SOB/Dyspnea General Chief Complaint: Dyspnea Stated Complaint: sob Time Seen by Provider: 06/07/22 20:03 Source: patient and EMS Limitations: no limitations History of Present Illness HPI Narrative: Patient comes emergency room complaining of shortness of breath. 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 Patient states that since he was discharged, he never felt back to baseline. Today, patient states that he was at his primary care physician's office for UTI symptoms. When patient was walking around the office, he was very short of breath, feeling lightheaded, he nearly passed out. Patient denied any chest pain. When EMS arrived, patient's oxygen saturation was in the low 80s while he was on his home dose 2.5 L of oxygen. He was brought to the emergency room. - Patient states that for several days he has had burning with urination. Denies penile secretions. Denies Testicular pain. No abdominal pain, no nausea vomiting or diarrhea. Related Data Home Medications Medication Instructions Recorded Confirmed albuterol sulfate 90 mcg/actuation 2 puff PO Q4H PRN Shortness Of 01/14/20 05/30/22 aerosol inhaler Breath Or Wheezing ipratropium 0.5 mg-albuterol 3 mg 3 ml inhalation Q6H PRN COPD 01/14/20 05/30/22 (2.5 mg base)/3 mL nebulization soln budesonide-formoterol HFA 160 2 puff inhalation DAILY 03/14/21 05/30/22 mcg-4.5 mcg/actuation aerosol inhaler (Symbicort) isosorbide mononitrate 30 mg 30 mg PO DAILY 03/14/21 05/30/22 tablet,extended release 24 hr aspirin 81 mg tablet,delayed 81 mg PO DAILY 08/04/21 05/30/22 release calcium carbonate 600 mg-vitamin 1 tab PO DAILY 08/04/21 05/30/22 D3 10 mcg (400 unit) tablet omeprazole 20 mg capsule,delayed 20 mg PO DAILY@0630 11/28/21 05/30/22 release glipizide 5 mg tablet See Rx Instructions PO BID 12/12/21 05/30/22 furosemide 20 mg tablet 20 mg PO DAILY 05/21/22 05/30/22 Previous Rx's Medication Instructions Recorded multivitamin (Daily-Kathleen tablet) 1 tab PO DAILY #90 tabs 05/13/20 metformin 1,000 mg tablet 1,000 mg PO BID #180 tabs 11/07/21 escitalopram oxalate 20 mg tablet 20 mg PO DAILY #30 tabs 12/12/21 blood sugar diagnostic (FreeStyle #100 ea 01/23/22 Lite Strips) blood-glucose meter (FreeStyle #1 ea 01/23/22 Lite Meter kit) atorvastatin 80 mg tablet 80 mg PO BEDTIME #90 tabs 02/05/22 Tradjenta 5 mg tablet (linagliptin) 5 mg PO QAM #30 tabs 02/23/22 metoprolol tartrate 25 mg tablet 25 mg PO BID #180 tabs 05/02/22 prednisone 10 mg tablet 10 mg PO DAILY #14 tabs 05/23/22 lorazepam 0.5 mg tablet 0.5 mg PO DAILY PRN anxiety #30 05/25/22 tabs Allergies Allergy/AdvReac Type Severity Reaction Status Date / Time fluticasone furoate Allergy Intermediate rash Verified 06/07/22 16:46 [From Trelegy Ellipta] vilanterol Allergy Intermediate rash Verified 06/07/22 16:46 [From Trelegy Ellipta] umeclidinium Allergy Unknown hives Verified 06/07/22 16:46 [Incruse Ellipta] Review of Systems Review of Systems: Constitutional : No Weight loss, No Fever, No Chills, No Night Sweats, No Fatigue, No Malaise ENT/Mouth : No Hearing loss, No Ear Pain, No Nasal Congestion, No Sinus Pain, No Hoarseness, No sore throat, No Rhinorrhea, No Swallowing Difficulty Eyes: No Eye Pain, No Swelling, No Redness, No Foreign Body, No Discharge, No Vision Changes Cardiovascular : No Chest Pain, No SOB, No Dyspnea on Exertion, No Orthopnea, No Edema, No Palpitations Respiratory : acute on chronic cough, shortness of breath wheezing, requiring more oxygen at baseline Gastrointestinal : No Nausea, No Vomiting, No Diarrhea, No Constipation, No abdominal Pain, No Hematochezia, No Melena Genitourinary : complaining of dysuria, No Urinary Frequency, No Hematuria, No Urinary Incontinence, No Urgency, No Flank Pain, No Urinary Flow Changes, No Hesitancy Musculoskeletal : No joint pain, No Myalgias, No Joint Swelling Skin : No Skin Lesions, No rash Neuro : No Weakness, No Numbness, No Paresthesias, No Loss of Consciousness, No Dizziness, No Headache Psych : No Anxiety/Panic, No Depression, No SI/HI/AH/VH, No Social Issues, Heme/Lymph: No Bruising, No Bleeding,No Lymphadenopathy Endocrine : No Polyuria, No Polydipsia, No Temperature Intolerance [facility] Past Medical History Medical History Asthma Bacteremia due to Enterococcus Chronic lung disease Chronic respiratory failure COPD, severe Diabetes mellitus with hyperglycemia, without long-term current use of insulin Dyslipidemia Generalized anxiety disorder History of pneumonia HTN (hypertension) Hyperlipemia Lung cancer Skin cancer Urinary incontinence Surgical History History of esophagogastroduodenoscopy (EGD) Hx of colonoscopy Hx of heart artery stent Family History Family History Father Medical history non-contributory Mother Medical history non-contributory Unknown family medical history Lung collapse Brother No problems noted. Brother No problems noted. Son Substance use disorder Son No problems noted. Daughter No problems noted. Sister No problems noted. Sister No problems noted. Sister No problems noted. Sister No problems noted. Other HTN (hypertension) Social History Social History Household Members: Spouse and Family Household Members Other:: grandson Housing: House Are you a primary palliative care specialist to a significant other at home: No Do you presently have visiting nurse or other home services: No Alcohol intake: never Patient Tobacco Use Status: Former Tobacco user e-Cigarette/Vaping Use: Never Used Advance Directives: Yes Advance Directives on File: Yes Advance Directives Date on File: 06/07/22 service: No Current occupational status: retired Cognitive needs: No Hearing needs: No Vision needs: No Physical Exam Vital Signs: Vital Signs: Last Vital Signs Temp 98.3 F 06/07/22 19:23 Pulse 66 06/07/22 20:18 Resp 18 06/07/22 20:18 BP 108/51 L 06/07/22 19:23 Pulse Ox 97 06/07/22 19:23 O2 Del Method 06/07/22 19:23 O2 Flow Rate 3 06/07/22 19:23 Oxygen Flow Rate 3 06/07/22 18:22 BMI result Body Mass Index 32.3 Const: Other: Appearance: Alert. Oriented X3. No acute distress. Eyes: Pupils equal, round and reactive to light. ENT: Pharynx normal. Neck: Normal inspection. Neck supple. No lymph nodes noted. No crepitus CVS: Normal heart rate and rhythm. Pulses normal. Normal S1 and S2 Respiratory: patient's oxygen saturation in the low 90s at 3 L. bilateral breath sounds diminished Abdomen: Soft and nontender. No rigidity. No distention. Skin: Skin warm and dry. Normal skin color. Normal skin turgor. Extremities: No lower extremity edema. No Lacerations. No Rash Neuro: Oriented X 3. No motor deficit. No sensory deficit. Moving all extremities. No slurred speech. CN 2 through 12 grossly intact Psych: calm, cooperative, normal affect Course Course Course Narrative: - patient has significantly diminished breath sounds bilaterally, patient receiving nebulizations at this time, Solu-Medrol. - Chest x-ray pending, all labs pending. - Patient likely to be admitted. Medications Administered Discontinued Medications Generic Name Dose Route Start Last Admin Trade Name Freq PRN Reason Stop Dose Admin Albuterol Sulfate 10 mg 06/07/22 20:13 06/07/22 20:17 Albuterol Sulfate (0.083%) 2.5 Mg/3 Ml Vial.Neb INHALE 06/07/22 20:14 10 mg ONCE ONE Administration Ceftriaxone Sodium 1 gm/ 50 mls @ 100 mls/hr 06/07/22 20:13 06/07/22 21:20 Sodium Chloride IV 06/07/22 20:42 100 mls/hr ONCE ONE Administration Methylprednisolone Sodium Succinate 125 mg 06/07/22 20:13 06/07/22 21:20 Methylprednisolone Sod Succ 125 Mg/2 Ml Vial IVPUSH 06/07/22 20:14 125 mg ONCE ONE Administration Medical Decision Making Medical Decision Making [facility] Narrative: chest x-ray does not show any consolidations, pneumonia not suspected, sepsis not suspected. - Patient had significant increase in oxygen level. - Urinalysis shows a very small amount of leukocyte Esterase. Given that the patient has symptoms, we will treat this as a UTI. - Patient was given ceftriaxone and azithromycin earlier today, which covered as well for the UTI. - Patient will need several rounds of nebulization treatments and steroids. - I discussed the patient with Dr. Riddle, patient being admitted Differential Diagnosis Differential Diagnoses: The differential diagnosis associated with the presentation includes ( pneumonia, asthma, COPD, COVID) Admission/Observation Consideration of admission/observation: Escalation of care including admission/observation considered Consult Healthcare Provider Management of the patient was discussed with: Hospitalist Lab Data [facility] Lab Attestation statement: I reviewed the patient's lab results. 06/07/22 18:44 06/07/22 19:38 Labs: Lab Results 06/07/22 06/07/22 06/07/22 Range/Units 18:44 18:44 18:44 WBC 5.4 (4.8-10.8) X10*3/uL RBC 4.22 L (4.60-5.80) X10*6/uL Hgb 12.0 L (14.0-18.0) g/dl Hct 40.4 L (42.0-52.0) % MCV 95.7 (80.0-98.0) fL MCH 28.4 (27.0-33.0) pg MCHC 29.7 L (31.0-36.0) g/dl RDW 12.9 (11.0-16.0) % Plt Count 161 (160-400) X10*3/uL MPV 10.4 (9.4-12.4) fL Immature Gran % (Auto) 0.6 H (0.0-0.4) % Neut % (Auto) 66.1 (45-73) % Lymph % (Auto) 22.0 (20-40) % [place] % (Auto) 9.4 (2-11) % Eos % (Auto) 1.3 (0-4) % Baso % (Auto) 0.6 (0-2) % Lymph # (Auto) 1.2 (1.2-4.9) X10*3/uL [place] # (Auto) 0.5 (0.1-1.2) X10*3/uL Eos # (Auto) 0.1 (0.0-0.4) X10*3/uL Baso # (Auto) 0.0 (0.0-0.2) X10*3/uL Abs Immat Gran (auto) 0.03 (0.00-0.03) X10*3/uL Absolute Neuts (auto) 3.6 (2.0-8.3) x10*3/uL Absolute Nucleated RBC 0.000 (0.0-0.012) X10*3/uL Nucleated RBC % (auto) 0.0 (0.0-0.2) /100WBC Sodium (135-145) mmol/L Potassium (3.3-5.1) mmol/L Chloride (96-108) mmol/L Carbon Dioxide (22-29) mmol/L Anion Gap (12-20) BUN (9-16) mg/dL Creatinine (0.5-1.4) mg/dL Estim Creat Clear Calc Estimated GFR Random Glucose (60-115) mg/dL Calcium (8.4-10.2) mg/dL Total Bilirubin (0.0-1.0) mg/dL AST (5-37) U/L ALT (0-40) U/L Alkaline Phosphatase (39-117) U/L Total Protein (6.5-8.0) g/dL Albumin (3.5-5.0) g/dL Urine Color Yellow Urine Appearance Clear Urine pH >= 9.0 (5.0-9.0) Ur Specific [place] 1.020 (1.005-1.025) Urine Protein 30 (1+) H (Neg-Trace) mg/dL Urine Glucose (UA) Negative (Negative) mg/dL Urine Ketones Trace (Negative) mg/dL Urine Blood Negative (Negative) Urine Nitrite Negative (Negative) Ur Leukocyte Esterase Small (1+) H (Negative) Urine RBC 0-2 (0-2) /HPF Urine WBC 0-5 (0-5) /HPF Ur Squamous Epith Cells 0-2 (0-2) /HPF Urine Bacteria None Seen (None Seen) Hyaline Casts 0-2 (0-2) /LPF COVID-19 ([facility]STER) Negative (Negative) COVID-19 Clin Com See Note 06/07/22 Range/Units 19:38 WBC (4.8-10.8) X10*3/uL RBC (4.60-5.80) X10*6/uL Hgb (14.0-18.0) g/dl Hct (42.0-52.0) % MCV (80.0-98.0) fL MCH (27.0-33.0) pg MCHC (31.0-36.0) g/dl RDW (11.0-16.0) % Plt Count (160-400) X10*3/uL MPV (9.4-12.4) fL Immature Gran % (Auto) (0.0-0.4) % Neut % (Auto) (45-73) % Lymph % (Auto) (20-40) % [place] % (Auto) (2-11) % Eos % (Auto) (0-4) % Baso % (Auto) (0-2) % Lymph # (Auto) (1.2-4.9) X10*3/uL [place] # (Auto) (0.1-1.2) X10*3/uL Eos # (Auto) (0.0-0.4) X10*3/uL Baso # (Auto) (0.0-0.2) X10*3/uL Abs Immat Gran (auto) (0.00-0.03) X10*3/uL Absolute Neuts (auto) (2.0-8.3) x10*3/uL Absolute Nucleated RBC (0.0-0.012) X10*3/uL Nucleated RBC % (auto) (0.0-0.2) /100WBC Sodium 140 (135-145) mmol/L Potassium 4.0 (3.3-5.1) mmol/L Chloride 94 L (96-108) mmol/L Carbon Dioxide 37 H (22-29) mmol/L Anion Gap 13 (12-20) BUN 11 (9-16) mg/dL Creatinine 0.78 (0.5-1.4) mg/dL Estim Creat Clear Calc 90.2 Estimated GFR > 60 Random Glucose 126 H (60-115) mg/dL Calcium 9.1 D (8.4-10.2) mg/dL Total Bilirubin 0.5 (0.0-1.0) mg/dL AST 23 (5-37) U/L ALT 24 (0-40) U/L Alkaline Phosphatase 77 (39-117) U/L Total Protein 6.4 L (6.5-8.0) g/dL Albumin 3.8 (3.5-5.0) g/dL Urine Color Urine Appearance Urine pH (5.0-9.0) Ur Specific [place] (1.005-1.025) Urine Protein (Neg-Trace) mg/dL Urine Glucose (UA) (Negative) mg/dL Urine Ketones (Negative) mg/dL Urine Blood (Negative) Urine Nitrite (Negative) Ur Leukocyte Esterase (Negative) Urine RBC (0-2) /HPF Urine WBC (0-5) /HPF Ur Squamous Epith Cells (0-2) /HPF Urine Bacteria (None Seen) Hyaline Casts (0-2) /LPF COVID-19 ([facility]STER) (Negative) COVID-19 Clin Com Independent Interpretation I performed an independent interpretation of an: Plain X-Ray (my interpretation of chest x-ray is: Possible left lower lobe pneumonia) Radiology Impression Discussion of test interpretation with radiology: I have reviewed the radiologist's reading. Radiologist Impression: INDINGS: Lungs well-expanded. The left apical masslike consolidation is again seen with associated right apical volume loss and retraction of adjacent structures. This is chronic process seen on prior studies including the 08/03/2021 CT scan. No acute infiltrate, effusion, edema, or pneumothorax. Cardiac silhouette is otherwise within normal limits for size. XR/XR chest 1V IMPRESSION: Chronic appearing changes similar to the 05/21/2022 study. This includes the focal volume loss and retraction of the left upper lobe. No acute superimposed process. No acute process seen otherwis Discharge Plan Discharge Clinical Impression: Chronic lung disease Patient Disposition: Admitted As Inpatient Prescriptions: No Action multivitamin [Daily-Kathleen] Tablet 1 tab PO DAILY Qty: 90 3RF metformin 1,000 mg tablet 1,000 mg PO BID Qty: 180 4RF (DME) FreeStyle Lite Strips Strip See Rx Instructions .Route Qty: 100 5RF Rx Instructions: check fasting glucose BID ac (DME) blood-glucose meter [FreeStyle Lite Meter] Kit See Rx Instructions .Route Qty: 1 0RF Rx Instructions: As directed atorvastatin 80 mg tablet 80 mg PO BEDTIME Qty: 90 3RF metoprolol tartrate 25 mg tablet 25 mg PO BID Qty: 180 1RF lorazepam 0.5 mg tablet 0.5 mg PO DAILY PRN (Reason: anxiety) Qty: 30 0RF isosorbide mononitrate 30 mg tablet extended release 24 hr 30 mg PO DAILY budesonide-formoterol [Symbicort] 160-4.5 mcg/actuation Hfa Aerosol Inhaler 2 puff INHALATION DAILY omeprazole 20 mg capsule,delayed release(DR/EC) 20 mg PO DAILY@0630 glipizide 5 mg tablet See Rx Instructions PO BID Rx Instructions: 10 mg in a.m. and 5 mg q.p.m. with meals orally 2 times a day; calcium carbonate-vitamin D3 600 mg-10 mcg (400 unit) tablet 1 tab PO DAILY aspirin 81 mg Tablet,Delayed Release (Dr/Ec) 81 mg PO DAILY furosemide 20 mg tablet 20 mg PO DAILY prednisone 10 mg tablet 10 mg PO DAILY Qty: 14 0RF Rx Instructions: Take prednisone 10 mg 1 tablet daily for 1 week, then take half tablet (5mg )by mouth daily times 14 days. albuterol sulfate 90 mcg/actuation HFA aerosol inhaler 2 puff PO Q4H PRN (Reason: Shortness Of Breath Or Wheezing) ipratropium-albuterol 0.5 mg-3 mg(2.5 mg base)/3 mL solution for nebulization 3 ml inhalation Q6H PRN (Reason: COPD) escitalopram oxalate 20 mg tablet 20 mg PO DAILY Qty: 30 5RF Tradjenta 5 mg tablet 5 mg PO QAM Qty: 30 5RF
--- NOTE | 2022-06-07 21:13 | P.HPHOSP_ITS ---
History of Present Illness Date of Service: 06/07/22 Attending physician on admission: Yovany Riddle Chief Complaint: SOB Pt is a 72-year-old male with a PMH significant for?asthma/COPD overlap, chronic hypoxemic and hypercapnic respiratory failure, hepatic cirrhosis, hx of alcohol abuse, former smoker who quit 16 years ago, anxiety, HLD, HTN, and hx of left lung cancer s/p chemo and radiation 10 years ago who presents to the ED with?increasing shortness of breath. Patient was recently admitted to the hospital on 05/21/22-05/23/22 for acute on chronic hypoxemic hypercapnic respiratory failure secondary to COPD exacerbation and treated with IV steroids, DuoNeb updrafts, and azithromycin. After discharge patient states that he never quite got back to baseline. Has been feeling weak, dizzy, and short of breath especially with standing up and with exertion. Patient notes he can barely walk across the room at home without having to stop to catch his breath. Patient presents today from his PCP office where he went for UTI-like symptoms of dysuria which had been ongoing for two-plus weeks. Patient was on his way back from the bathroom when he became short of breath and nearly passed out when he went to sit down. EMS was called and found him to be satting in the low 80s while on his home dose of 2.5 L supplemental O2. In the ED labs were significant for H&H stable at 12.0/40.4, and carbon dioxide of 37 (near baseline), lactic acid WNL. VBG with pH of 7.33, pCO2 79, PO2 32, HC03 42, at baseline. UA negative for UTI. CXR showed no acute process seen, chronic changes similar to those in previous study on 05/21/2022 of focal volume loss and retraction of the upper left lobe. EKG demonstrated normal sinus rhythm without evidence of ST elevations or depressions. Pt was treated with albuterol, IV steroids, and ceftriaxone. Pt will be admitted to the hospital acute on chronic hypoxemic hypercapnic respiratory failure secondary to COPD exa cerbation. Review of Systems Review of Systems: Weakness Dizziness Shortness of breath Presyncope Dysuria Denies chest pain/pressure, palpitations No fever, chills, nausea, vomiting, abdominal pain Yes all other systems are reviewed and are negative [facility] Medical History Asthma Bacteremia due to Enterococcus Chronic lung disease Chronic respiratory failure COPD, severe Diabetes mellitus with hyperglycemia, without long-term current use of insulin Dyslipidemia Generalized anxiety disorder History of pneumonia HTN (hypertension) Hyperlipemia Lung cancer Skin cancer Urinary incontinence Family History Father Medical history non-contributory Mother Medical history non-contributory Unknown family medical history Lung collapse Brother No problems noted. Brother No problems noted. Son Substance use disorder Son No problems noted. Daughter No problems noted. Sister No problems noted. Sister No problems noted. Sister No problems noted. Sister No problems noted. Other HTN (hypertension) Surgical History History of esophagogastroduodenoscopy (EGD) Hx of colonoscopy Hx of heart artery stent Social History Household Members: Spouse and Family Household Members Other:: grandson Housing: House Are you a primary career technology teacher to a significant other at home: No Do you presently have visiting nurse or other home services: No Alcohol intake: never Patient Tobacco Use Status: Former Tobacco user e-Cigarette/Vaping Use: Never Used Advance Directives: Yes Advance Directives on File: Yes Advance Directives Date on File: 06/07/22 service: No Current occupational status: retired Cognitive needs: No Hearing needs: No Vision needs: No Meds Allergies Allergy/AdvReac Type Severity Reaction Status Date / Time fluticasone furoate Allergy Intermediate rash Verified 06/07/22 16:46 [From Trelegy Ellipta] vilanterol Allergy Intermediate rash Verified 06/07/22 16:46 [From Trelegy Ellipta] umeclidinium Allergy Unknown hives Verified 06/07/22 16:46 [Incruse Ellipta] Active Medications: Current Medications Azithromycin 500 mg/ Sodium (Chloride) 250 mls @ 125 mls/hr IV ONCE ONE Stop: 06/07/22 22:12 Home Medications Medication Instructions Recorded Confirmed Last Taken Type albuterol sulfate 90 mcg/actuation 2 puff PO Q4H PRN Shortness Of 01/14/20 06/07/22 05/27/20 History aerosol inhaler Breath Or Wheezing 0200 ipratropium 0.5 mg-albuterol 3 mg 3 ml inhalation Q6H PRN COPD 01/14/20 06/07/22 11/28/21 History (2.5 mg base)/3 mL nebulization soln budesonide-formoterol HFA 160 2 puff inhalation DAILY 03/14/21 06/07/22 05/21/22 History mcg-4.5 mcg/actuation aerosol inhaler (Symbicort) isosorbide mononitrate 30 mg 30 mg PO DAILY 03/14/21 06/07/22 06/07/22 History tablet,extended release 24 hr aspirin 81 mg tablet,delayed 81 mg PO DAILY 08/04/21 06/07/22 06/07/22 History release calcium carbonate 600 mg-vitamin 1 tab PO DAILY 08/04/21 06/07/22 06/07/22 History D3 10 mcg (400 unit) tablet omeprazole 20 mg capsule,delayed 20 mg PO DAILY@0630 11/28/21 06/07/22 06/07/22 History release furosemide 20 mg tablet 20 mg PO DAILY 05/21/22 06/07/22 06/07/22 History azithromycin 500 mg tablet 1 tab PO MOWEFR@1000 06/07/22 06/07/22 Unknown History escitalopram oxalate 20 mg tablet 10 mg PO DAILY 06/07/22 06/07/22 06/07/22 History glipizide 5 mg tablet 5 mg PO DAILY@1700 06/07/22 06/07/22 Unknown History glipizide 5 mg tablet 10 mg PO DAILY 06/07/22 06/07/22 06/07/22 History prednisone 10 mg tablet 5 mg PO DAILY 06/07/22 06/07/22 06/07/22 History Physical Exam Vital Signs and Narrative: Vital Signs: Last Vital Signs Temp 98.3 F 06/07/22 19:23 Pulse 66 06/07/22 20:18 Resp 18 06/07/22 20:18 BP 108/51 L 06/07/22 19:23 Pulse Ox 97 06/07/22 19:23 O2 Del Method 06/07/22 19:23 O2 Flow Rate 3 06/07/22 19:23 Oxygen Flow Rate 3 06/07/22 18:22 BMI result Body Mass Index 32.3 Constitutional: Alert, in no acute distress. Mental Status: Oriented to person, place and time. Eyes: Pupils are equal, round, and reactive to light. Ear, Nose, and Throat: Oropharynx clear, mucous membranes moist. Ears and nose without deformities. Trachea midline. Respiratory: Markedly diminished breath sounds and wheezing throughout bilaterally. Cardiovascular: S1, S2 regular. Holosystolic 3/6 murmur best heard at left sternal border. Gastrointestinal: Abdomen soft, non-tender, non-distended. Normal bowel sounds. Neurologic: Cranial nerves II-XII are grossly intact bilaterally. No focal neurological deficits. Moves all extremities spontaneously. Skin: No rashes or lesions noted. Musculoskeletal: No cyanosis or clubbing. Extremities: +1 pitting edema of lower legs bilaterally. Psychiatric: Normal mood and affect. Results Labs 06/07/22 18:44 06/07/22 19:38 Labs: Laboratory Results - last 24 hr 06/07/22 06/07/22 06/07/22 18:44 18:44 18:44 MCV 95.7 MCH 28.4 MCHC 29.7 L RDW 12.9 Plt Count 161 MPV 10.4 Immature Gran % (Auto) 0.6 H Neut % (Auto) 66.1 Lymph % (Auto) 22.0 [place] % (Auto) 9.4 Eos % (Auto) 1.3 Baso % (Auto) 0.6 Lymph # (Auto) 1.2 [place] # (Auto) 0.5 Eos # (Auto) 0.1 Baso # (Auto) 0.0 Abs Immat Gran (auto) 0.03 Absolute Neuts (auto) 3.6 Absolute Nucleated RBC 0.000 Nucleated RBC % (auto) 0.0 Anion Gap Estim Creat Clear Calc Estimated GFR Random Glucose Calcium Total Bilirubin AST ALT Alkaline Phosphatase Total Protein Albumin Urine Color Yellow Urine Appearance Clear Urine pH >= 9.0 Ur Specific [place] 1.020 Urine Protein 30 (1+) H Urine Glucose (UA) Negative Urine Ketones Trace Urine Blood Negative Urine Nitrite Negative Ur Leukocyte Esterase Small (1+) H Urine RBC 0-2 Urine WBC 0-5 Ur Squamous Epith Cells 0-2 Urine Bacteria None Seen Hyaline Casts 0-2 COVID-19 ([facility]) Negative COVID-19 Clin Com See Note 06/07/22 19:38 MCV MCH MCHC RDW Plt Count MPV Immature Gran % (Auto) Neut % (Auto) Lymph % (Auto) [place] % (Auto) Eos % (Auto) Baso % (Auto) Lymph # (Auto) [place] # (Auto) Eos # (Auto) Baso # (Auto) Abs Immat Gran (auto) Absolute Neuts (auto) Absolute Nucleated RBC Nucleated RBC % (auto) Anion Gap 13 Estim Creat Clear Calc 90.2 Estimated GFR > 60 Random Glucose 126 H Calcium 9.1 D Total Bilirubin 0.5 AST 23 ALT 24 Alkaline Phosphatase 77 Total Protein 6.4 L Albumin 3.8 Urine Color Urine Appearance Urine pH Ur Specific [place] Urine Protein Urine Glucose (UA) Urine Ketones Urine Blood Urine Nitrite Ur Leukocyte Esterase Urine RBC Urine WBC Ur Squamous Epith Cells Urine Bacteria Hyaline Casts COVID-19 ([facility]) COVID-19 Clin Com Imaging Radiologist's Impressions: Impressions Chest X-Ray 06/07/22 20:30 IMPRESSION: Chronic appearing changes similar to the 05/21/2022 study. This includes the focal volume loss and retraction of the left upper lobe. No acute superimposed process. No acute process seen otherwise. Assessment and Plan (1) Acute on chronic respiratory failure with hypoxemia: Status: Resolved (2) COPD exacerbation: Status: Resolved Plan Pt is a 72-year-old male with a PMH significant for?asthma/COPD overlap, chronic hypoxemic and hypercapnic respiratory failure, hepatic cirrhosis, hx of alcohol abuse, former smoker who quit 16 years ago, anxiety, HLD, HTN, and hx of left lung cancer s/p chemo and radiation 10 years ago who presents to the ED with ?increasing shortness of breath since last discharge 2 weeks ago. Pt will be admitted to the hospital acute on chronic hypoxemic hypercapnic respiratory failure secondary to COPD exacerbation. Acute on chronic hypoxemic hypercapnic respiratory failure secondary to COPD exacerbation Patient on 2.5 L supplemental O2 VBG with pH of 7.33, pCO2 79, PO2 32, HC03 42, at baseline Titrate supplemental O2>90 Treat COPD exacerbation as below Acute COPD exacerbation CXR negative for pneumonia, patient tested negative for COVID Continue home inhalers Solu-Medrol 60 mg IV b.i.d. DuoNebs q4h while awake Albuterol q.2h p.r.n. Hold on azithromycin for now, given recent hospitalization and antibiotic use Pulmonology consult Dysuria Pt has been experiencing dysuria for over two weeks UA negative for UTI Possibly secondary to fungal infection Nystatin cream b.i.d. HTN Continue home meds CAD/HLD Troponin negative Patient does not complain of chest pain/pressure, palpitations EKG without evidence of ST elevations or depressions Continue aspirin, atorvastatin, isosorbide mononitrate, metoprolol Non insulin dependent diabetes Hold home meds SSI Diabetic diet Mood disorder Continue home meds Normocytic anemia, chronic Likely secondary to chronic disease H&H at baseline, stable Full Code Attending:?Dr. Riddle DVT Prophylaxis: Lovenox Pt will require a hospitalization of at least two nights for treatment of?acute on chronic hypoxemic hypercapnic respiratory failure secondary to COPD exacerbat ion. Time Spent With Patient Time: Total time managing care of this patient today ____ minutes. Quality Stroke Does the patient have a stroke diagnosis?: No VTE Prior VTE?: No VTE Risk Level:: Medical - moderate - high VTE Device Contraindication: Treatment Not Indicated VTE Drug Contraindication: N/A - Med Ordered
[2022-06-07] MEDS: cefTRIAXone sodium 1 GM in 0.9 % Sodium Chloride 50 ML IV (21:20)
[2022-06-07] MEDS: methylPREDNISolone Sod Succ 125 MG/2 ML VIAL IVPUSH (21:20)
[2022-06-07 21:41] LABS: Lactic Acid 1.9 mmol/L (0.5-2.0)
--- NOTE | 2022-06-07 22:00 | MHC.EDTECH ---
2200 ROUNDING DONE ,VITALS SIGN TAKEN ,PT HAD 1 TUNA FISH SANDWICH AND 1 TURKEY SANDWICH AND A CAN OF CHANDAN CHEPE FOR SNACK .
[2022-06-07] MEDS: Azithromycin 500 MG in 0.9 % Sodium Chloride 250 ML 125 MG IV (22:03)
[2022-06-07 22:09] VITALS: BP 139/64; PULSE 103; RESP 18; TEMP 36.8; O2SAT 96
[2022-06-07 22:09] LABS: Venous Blood Gas Refer to POC result
[2022-06-07 22:09] LABS: VBG Base Excess 12.3 mmol/L; VBG HCO3 42 mmol/L (22-26); VBG pCO2 79 mmHg; VBG pH 7.33 (7.32-7.43); VBG pO2 32 mmHg
--- NOTE | 2022-06-07 22:17 | PHA.MEDREC ---
MED REC COMPLETE, NO ISSUES Pharmacy Consult ? Medication Reconciliation Pharmacy has completed the medication reconciliation.
[2022-06-07 23:03] VITALS: BP 137/50; PULSE 100; RESP 14; TEMP 36.8; O2SAT 93
[2022-06-07] MEDS: Metoprolol Tartrate 25 MG TABLET PO (23:31)
[2022-06-07] MEDS: 0.9 % Sodium Chloride Flush 3 ML SYRINGE IVFLUSH (23:32)
[2022-06-08 00:08] LABS: Glucose, Whole Blood 378 mg/dL (60-115)
--- NOTE | 2022-06-08 00:43 | PC.NURSE ---
Hospitalist made aware that pt's POC was >350. Provider directed this RN to proceed by giving the pt their sliding scale dose of Humalog that pt usually takes at home.
[2022-06-08] MEDS: Insulin Lispro 100 UNIT/ML 3 ML VIAL SUBCUT ×5 (01:16→20:56)
[2022-06-08 01:18] LABS: Glucose, Whole Blood 398 mg/dL (60-115)
[2022-06-08 05:10] LABS: Glucose, Whole Blood 329 mg/dL (60-115)
[2022-06-08] MEDS: Omeprazole 20 MG CAPSULE.DR PO (06:42)
[2022-06-08 07:25] LABS: Glucose, Whole Blood 290 mg/dL (60-115)
[2022-06-08 08:11] VITALS: PULSE 83; RESP 18; O2SAT 98
[2022-06-08] MEDS: Aspirin Enteric Coated 81 MG TABLET.DR PO (08:17)
[2022-06-08] MEDS: Metoprolol Tartrate 25 MG TABLET PO ×2 (08:17→20:46)
[2022-06-08] MEDS: Calcium + Vitamin D 250 MG TABLET 500 MG PO (08:17)
[2022-06-08] MEDS: methylPREDNISolone Sod Succ 125 MG/2 ML VIAL 60 MG IVPUSH ×2 (08:18→20:44)
[2022-06-08] MEDS: Multivitamin TABLET 1 TAB PO (08:18)
[2022-06-08] MEDS: Furosemide 20 MG TABLET PO (08:18)
[2022-06-08] MEDS: Isosorbide Mononitrate 30 MG TAB.ER.24H PO (08:18)
[2022-06-08] MEDS: Escitalopram Oxalate 10 MG TABLET PO (08:18)
[2022-06-08 08:47] VITALS: BP 117/58; PULSE 78; RESP 13; O2SAT 97
[2022-06-08] MEDS: Nystatin Cream 15 GM TUBE 1 APPL TOPICAL ×2 (09:06→20:47)
--- NOTE | 2022-06-08 10:33 | P.CONPL_ITS ---
History of Present Illness History of Present Illness Consult date: 06/08/22 Requesting physician: Sadi Anguiano Reason for consult: dyspnea, cough and COPD Chief complaint: SOB Narrative: I saw this 72 years old gentleman in the emergency department. At present he is sitting by the bedside, very clear and conversing very well. He presented to the emergency room because he became very short of breath when he walked back from the bathroom. He was admitted here 2 weeks ago and treated for an acute exacerbation of COPD. He had been prescribed to a tapering dose of prednisone which he just finished. He has no fever chills or chest pain. He was using his oxygen at home . He claims that he just got weak and tired had come to the urgent care for a checkup. This gentleman has history of advanced chronic obstructive pulmonary disease for many years. He has been oxygen dependent, he is known to have respiratory failure and has been tried on BiPAP in the past. He just could not tolerate the mask on his face so has not been using BiPAP. He was treated for lung cancer in the left upper lobe about 10 years ago, with a full course of radiation therapy and chemotherapy, And since then he has had no recurrence. His chest x-ray always show some scarring in the left upper lobe area. He does have past history of smoking but quit about 10 years ago. Currently he was being treated with the Symbicort 2 puffs b.i.d., and updrafts 4 times a day, along with oxygen, and he is also on azithromycin 250 mg 3 times a week. Review of Systems Review of Systems: Yes all other systems are reviewed and are negative Constitutional: Constitutional: Reports fatigue Eyes: Eyes: Reports no additional eye complaints ENT: Reports system reviewed and no additional complaints, except as documented Cardiovascular: Cardiovascular: Denies chest pain, Denies irregular heart rhythm and Denies leg edema Respiratory: Respiratory: Reports as per HPI Gastrointestinal: Gastrointestinal: Reports heartburn (GERD symptoms controlled with omeprazole) Genitourinary: Genitourinary: Reports no additional male genitourinary compla ints Musculoskeletal: Musculoskeletal: Reports no additional musculoskeletal complaints Integumentary/Breasts: Skin/Breast: Reports system reviewed and no additional complaints, except as docu Neurologic: Reports system reviewed and no additional complaints, except as documented Psychiatric: Psychiatric: Reports anxiety and Reports depression (Controlled with med, escitalopram 10 mg daily) Endocrine: Endocrine: Reports fatigue and Reports other (Being treated for diabetes mellitus) Allergic/Immunologic: Allergic/Immunologic: Reports no additional allergic/immunologic complaints PMFSH Past Medical History Medical History (Updated 06/08/22 @ 10:44 by Rosmery Esqueda MD) Acute on chronic respiratory failure with hypoxia and hypercapnia Asthma Bacteremia due to Enterococcus Chronic lung disease Chronic respiratory failure COPD exacerbation COPD, severe Diabetes mellitus with hyperglycemia, without long-term current use of insulin Dyslipidemia Generalized anxiety disorder History of pneumonia HTN (hypertension) Hyperlipemia Lung cancer Skin cancer Urinary incontinence Family History Family History Father Medical history non-contributory Mother Medical history non-contributory Unknown family medical history Lung collapse Brother No problems noted. Brother No problems noted. Son Substance use disorder Son No problems noted. Daughter No problems noted. Sister No problems noted. Sister No problems noted. Sister No problems noted. Sister No problems noted. Other HTN (hypertension) Surgical History Surgical History History of esophagogastroduodenoscopy (EGD) Hx of colonoscopy Hx of heart artery stent Social History Social History Household Members: Spouse and Family Household Members Other:: grandson Housing: House Are you a primary care transitions nurse to a significant other at home: No Do you presently have visiting nurse or other home services: No Alcohol intake: former Patient Tobacco Use Status: Former Tobacco user Smoked in Last 30 Days: No e-Cigarette/Vaping Use: Never Used Use of substances other than those prescribed or required for medical reasons: No Advance Directives: Yes Advance Directives on File: Yes Advance Directives Date on File: 06/08/22 Nutrition Risks: No Nutritional Risk service: No Current occupational status: retired Cognitive needs: No Hearing needs: No Vision needs: No Meds Allergies Allergy/AdvReac Type Severity Reaction Status Date / Time fluticasone furoate Allergy Intermediate rash Verified 06/07/22 16:46 [From Trelegy Ellipta] vilanterol Allergy Intermediate rash Verified 06/07/22 16:46 [From Trelegy Ellipta] umeclidinium Allergy Unknown hives Verified 06/07/22 16:46 [Incruse Ellipta] Active Medications: Current Medications Acetaminophen (Acetaminophen 325 Mg Tablet) 650 mg PO Q6H PRN PRN Reason: Pain, Mild (Pain Scale 1-3) Albuterol Sulfate (Albuterol Sulfate 90 Mcg 8 Gm Inhaler) 4 puff INHALE Q2H PRN PRN Reason: Wheezing Aspirin (Aspirin Enteric Coated 81 Mg Tablet.Dr) 81 mg PO DAILY [facility] Last Admin: 06/08/22 08:17 Dose: 81 mg Atorvastatin Calcium (Atorvastatin Calcium 80 Mg Tablet) 80 mg PO BEDTIME [facility] Calcium Carbonate/Cholecalciferol (Calcium + Vitamin D 250 Mg Tablet) 500 mg PO DAILY [facility] Last Admin: 06/08/22 08:17 Dose: 250 mg Albuterol Sulfate 2.5 mg/ (Ipratropium [place] 0.5 mg) 0 mg INHALE RQ4H WHILE AWAKE [facility] Last Admin: 06/08/22 08:11 Dose: 2.5 each Albuterol Sulfate 2.5 mg/ (Ipratropium [place] 0.5 mg) 0 mg INHALE Q6H PRN PRN Reason: Shortness of Breath Dextrose (Dextrose 50 % 25 Gm/50 Ml Syringe) 25 gm IVPUSH Q15M PRN; Protocol PRN Reason: per Hypoglycemia Standing Ord. Docusate Sodium (Docusate Sodium 100 Mg Capsule) 100 mg PO DAILY PRN PRN Reason: Constipation Enoxaparin Sodium (Enoxaparin Sodium 40 Mg/0.4 Ml Syringe) 40 mg SUBCUT Q24H [facility] Last Admin: 06/07/22 23:31 Dose: Not Given Escitalopram Oxalate (Escitalopram Oxalate 10 Mg Tablet) 10 mg PO DAILY [facility] Last Admin: 06/08/22 08:18 Dose: 10 mg Furosemide (Furosemide 20 Mg Tablet) 20 mg PO DAILY [facility]; Protocol Last Admin: 06/08/22 08:18 Dose: 20 mg Glucose (Glucose Gel 15 Gm Gel..Gram.) 15 gm PO Q15M PRN; Protocol PRN Reason: per Hypoglycemia Standing Ord. Insulin Human Lispro (Insulin Lispro 100 Unit/Ml 3 Ml Vial) 0 unit SUBCUT QIDACHS [facility]; Protocol Last Admin: 06/08/22 08:18 Dose: 6 unit Isosorbide Mononitrate (Isosorbide Mononitrate 30 Mg Tab.Er.24h) 30 mg PO DAILY [facility]; Protocol Last Admin: 06/08/22 08:18 Dose: 30 mg Lorazepam (Lorazepam 0.5 Mg Tablet) 0.5 mg PO DAILY PRN PRN Reason: anxiety Methylprednisolone Sodium Succinate (Methylprednisolone Sod Succ 125 Mg/2 Ml Vial) 60 mg IVPUSH Q12H [facility] Last Admin: 06/08/22 08:18 Dose: 60 mg Metoprolol Tartrate (Metoprolol Tartrate 25 Mg Tablet) 25 mg PO BID [facility]; Protocol Last Admin: 06/08/22 08:17 Dose: 25 mg Multivitamins/Vitamin C (Multivitamin Tablet) 1 tab PO DAILY [facility] Last Admin: 06/08/22 08:18 Dose: 1 tab Non-Formulary Medication (Budesonide-Formoterol [Symbicort]) 2 puff INHALE DAILY [facility] Nystatin (Nystatin Cream 15 Gm Tube) 1 appl TOPICAL BID [facility]; Protocol Last Admin: 06/08/22 09:06 Dose: 1 appl Omeprazole (Omeprazole 20 Mg Capsule.) 20 mg PO DAILY@0630 [facility] Last Admin: 06/08/22 06:42 Dose: 20 mg Pharmacy Consult (Consult Rx Perform Med Rec) 1 each MISCELLANE ONCE PRN PRN Reason: Consult order Sodium Chloride (0.9 % Sodium Chloride Flush 3 Ml Syringe) 3 ml IVFLUSH QSHIFT [facility] Last Admin: 06/08/22 08:22 Dose: Not Given Home Medications Medication Instructions Recorded Confirmed Last Taken Type albuterol sulfate 90 mcg/actuation 2 puff PO Q4H PRN Shortness Of 01/14/20 06/07/22 05/27/20 History aerosol inhaler Breath Or Wheezing 0200 ipratropium 0.5 mg-albuterol 3 mg 3 ml inhalation Q6H PRN COPD 01/14/20 06/07/22 11/28/21 History (2.5 mg base)/3 mL nebulization soln budesonide-formoterol HFA 160 2 puff inhalation DAILY 03/14/21 06/07/22 05/21/22 History mcg-4.5 mcg/actuation aerosol inhaler (Symbicort) isosorbide mononitrate 30 mg 30 mg PO DAILY 03/14/21 06/07/22 06/07/22 History tablet,extended release 24 hr aspirin 81 mg tablet,delayed 81 mg PO DAILY 08/04/21 06/07/22 06/07/22 History release calcium carbonate 600 mg-vitamin 1 tab PO DAILY 08/04/21 06/07/22 06/07/22 History D3 10 mcg (400 unit) tablet omeprazole 20 mg capsule,delayed 20 mg PO DAILY@0630 11/28/21 06/07/22 06/07/22 History release furosemide 20 mg tablet 20 mg PO DAILY 05/21/22 06/07/22 06/07/22 History azithromycin 500 mg tablet 1 tab PO MOWEFR@1000 06/07/22 06/07/22 Unknown History escitalopram oxalate 20 mg tablet 10 mg PO DAILY 06/07/22 06/07/22 06/07/22 History glipizide 5 mg tablet 5 mg PO DAILY@1700 06/07/22 06/07/22 Unknown History glipizide 5 mg tablet 10 mg PO DAILY 06/07/22 06/07/22 06/07/22 History prednisone 10 mg tablet 5 mg PO DAILY 06/07/22 06/07/22 06/07/22 History Physical Exam Vital Signs: Vital Signs: Last Vital Signs Temp 98.3 F 06/07/22 23:03 Pulse 78 06/08/22 08:47 Resp 13 06/08/22 08:47 BP 117/58 L 06/08/22 08:47 Pulse Ox 97 06/08/22 08:47 O2 Del Method 06/08/22 08:47 O2 Flow Rate 3 06/07/22 23:03 Oxygen Flow Rate 3 06/07/22 18:22 BMI result Body Mass Index 32.3 Const: General: comfortable, no acute distress (Only slightly dyspneic), alert and awake Orientation/consciousness: patient oriented x3 HEENT: Head: Yes normal to inspection General nose exam: No nasal polyps present and No nasal discharge present Face and sinus: Yes sinuses nontender Mouth: oropharynx normal Throat: Yes posterior oropharynx normal Eyes: General: appearance normal, both eyes and all related structures Neck: Neck: Yes normal visual inspection, Yes no lymphadenopathy, Yes trachea midline and Yes no JVD Thyroid: Thyroid normal Chest: Chest palpation & inspection: normal inspection of the chest, normal palpation of entire chest wall and no tenderness Resp: Other: Percussion note is resonant, breath sounds are definitely distant with prolonged expiratory phase. But at this time no wheezes rhonchi or crepitations are heard. Cardio: Palpation: normal PMI Rate: regular rate Rhythm: regular rhythm Heart sounds: no gallops and no murmurs Peripheral pulses: Peripheral pulses 2+ throughout GI: Palpation (GI): Soft to palpation, nontender, No hepatosplenomegaly pre sent and no masses Auscultation: normal bowel sounds Back/Spine/Pelvis: Thoracic/Lumbar Spine: thoracic and lumbar spine normal to inspection Skin: General skin exam: no rashes or lesions noted Neuro: General: patient oriented x3 and no focal motor deficits Cranial nerves: Yes CN's II-XII intact bilaterally Extrem: General: Yes normal to inspection, Yes no clubbing, cyanosis or edema and Yes no calf tenderness Psych: Appearance: grossly normal and well kempt Speech and movement: Normal speech and movement present Results Laboratory Findings 06/07/22 18:44 06/07/22 19:38 Abnormal lab findings: Abnormal Labs 06/07/22 06/07/22 06/07/22 18:44 18:44 19:38 RBC 4.22 L Hgb 12.0 L Hct 40.4 L MCHC 29.7 L Immature Gran % (Auto) 0.6 H VBG HCO3 Chloride 94 L Carbon Dioxide 37 H POC Glucose Random Glucose 126 H Total Protein 6.4 L Urine Protein 30 (1+) H Ur Leukocyte Esterase Small (1+) H 06/07/22 06/08/22 06/08/22 22:04 00:03 01:14 RBC Hgb Hct MCHC Immature Gran % (Auto) VBG HCO3 42 H Chloride Carbon Dioxide POC Glucose 378 H* 398 H* Random Glucose Total Protein Urine Protein Ur Leukocyte Esterase 06/08/22 06/08/22 05:05 07:16 RBC Hgb Hct MCHC Immature Gran % (Auto) VBG HCO3 Chloride Carbon Dioxide POC Glucose 329 H 290 H Random Glucose Total Protein Urine Protein Ur Leukocyte Esterase Diagnostic Findings Chest x-ray: report reviewed Assessment and Plan (1) COPD exacerbation: Status: Acute (2) Acute on chronic respiratory failure with hypoxia and hypercapnia: Status: Acute Plan This 72 years old gentleman is a known case of advanced chronic obstructive pulmonary disease. He also has chronic respiratory failure with hypoxemia and hypercapnia. In the past he has not tolerated the use of CPAP or BiPAP. He remains on O2 2 L/minute. Treated for acute exacerbation about 2 weeks ago, and discharged home on prednisone taper. I think as soon as he completed his course of prednisone a few days later he started getting worse again. He came in with acute on chronic respiratory failure with significant hypercapnia, PCO2 of 96. That has now improved and his pCO2 is down to 79. I think his usual baseline pCO2 is in 60s. Recc . IV Solu-Medrol for 1 day then put him on tapering dose of prednisone, starting with 40 mg a day and, wean down by 10 mg every week. DuoNeb updrafts Q 6 hours while awake. O2 supplementation to keep O2 sat between 90-92%, avoid any excessive amount of O2. He is a ideal case for BiPAP use at night but the he has history of intolerance. So he is instructed to do deep breathing exercises with pursed lip technique, which he should do every few hours. Avoid use of any narcotics in his case, except that he may use small dose of lorazepam p.r.n.. He is the on the acidotic side so I would not use Diamox in his case. He may do better with small does of theophylline like 300 mg b.i.d., to improve his ventilation status. As outpatient he will continue on DuoNeb updrafts, ,Symbicort and azithromycin 250 mg 3 times a week. He needs a close outpatient follow-up, he has been going to but told me that now he wants to go to Dr. Davey for his pulmonary follow-up , which is fine and he can make an appointment. Time Spent With Patient Time: Total time managing care of this patient today ____ minutes. Procedures Date of Service Date of Service: 06/08/22
[2022-06-08 11:33] VITALS: PULSE 61; RESP 18; O2SAT 95
[2022-06-08 12:41] LABS: Glucose, Whole Blood 251 mg/dL (60-115)
--- NOTE | 2022-06-08 13:38 | P.PNIM_ITS ---
Subjective Subjective Date of Service: 06/08/22 Interval History: being followed for acute on chronic hypoxic and hypercarbic respiratory failure,offers no acute complaints, denies worsening shortness of breath, no chest pain, no palpitation, no lightheadedness, no dizziness, no fevers, no chills, oxygenation stable on 3 L of oxygen Review of Systems Review of Systems: Yes all other systems are reviewed and are negative Physical Exam Vital Signs: Vital Signs: Last Vital Signs Temp 98.3 F 06/07/22 23:03 Pulse 61 06/08/22 11:33 Resp 18 06/08/22 11:33 BP 117/58 L 06/08/22 08:47 Pulse Ox 97 06/08/22 08:47 O2 Del Method 06/08/22 08:47 O2 Flow Rate 3 06/07/22 23:03 Oxygen Flow Rate 3 06/07/22 18:22 BMI result Body Mass Index 32.3 Const: Other: General awake alert x3, sitting comfortably in no acute distress. Neck supple no JVD. CVS regular rate rhythm, Respiratory lungs clear to auscultation, no respiratory distress, no wheeze, no rhonchi. Gastrointestinal abdomen soft, nontender, bowel sounds audible, no guarding , no rigidity. Extremities non pitting edema. Neuro nonfocal Skin no rash psych appropriate affect Objective Data Active Medications Acetaminophen (Acetaminophen 325 Mg Tablet) 650 mg PO Q6H PRN PRN Reason: Pain, Mild (Pain Scale 1-3) Albuterol Sulfate (Albuterol Sulfate 90 Mcg 8 Gm Inhaler) 4 puff INHALE Q2H PRN PRN Reason: Wheezing Aspirin (Aspirin Enteric Coated 81 Mg Tablet.) 81 mg PO DAILY ON LICENSE OF [facility] Last Admin: 06/08/22 08:17 Dose: 81 mg Documented By: HANNAH Atorvastatin Calcium (Atorvastatin Calcium 80 Mg Tablet) 80 mg PO BEDTIME ON LICENSE OF [facility] Calcium Carbonate/Cholecalciferol (Calcium + Vitamin D 250 Mg Tablet) 500 mg PO DAILY ON LICENSE OF [facility] Last Admin: 06/08/22 08:17 Dose: 250 mg Documented By: HANNAH Albuterol Sulfate 2.5 mg/ (Ipratropium [place] 0.5 mg) 0 mg INHALE RQ4H WHILE AWAKE ON LICENSE OF [facility] Last Admin: 06/08/22 11:32 Dose: 2.5 each Documented By: LOIS Albuterol Sulfate 2.5 mg/ (Ipratropium [place] 0.5 mg) 0 mg INHALE Q6H PRN PRN Reason: Shortness of Breath Dextrose (Dextrose 50 % 25 Gm/50 Ml Syringe) 25 gm IVPUSH Q15M PRN; Protocol PRN Reason: per Hypoglycemia Standing Ord. Docusate Sodium (Docusate Sodium 100 Mg Capsule) 100 mg PO DAILY PRN PRN Reason: Constipation Enoxaparin Sodium (Enoxaparin Sodium 40 Mg/0.4 Ml Syringe) 40 mg SUBCUT Q24H ON LICENSE OF [facility] Last Admin: 06/07/22 23:31 Dose: Not Given Documented By: SANDER Non-Admin Reason: Patient Refused Escitalopram Oxalate (Escitalopram Oxalate 10 Mg Tablet) 10 mg PO DAILY ON LICENSE OF [facility] Last Admin: 06/08/22 08:18 Dose: 10 mg Documented By: HANNAH Furosemide (Furosemide 20 Mg Tablet) 20 mg PO DAILY ON LICENSE OF [facility]; Protocol Last Admin: 06/08/22 08:18 Dose: 20 mg Documented By: HANNAH Glucose (Glucose Gel 15 Gm Gel..Gram.) 15 gm PO Q15M PRN; Protocol PRN Reason: per Hypoglycemia Standing Ord. Insulin Human Lispro (Insulin Lispro 100 Unit/Ml 3 Ml Vial) 0 unit SUBCUT QIDACHS ON LICENSE OF [facility]; Protocol Last Admin: 06/08/22 12:43 Dose: 6 unit Documented By: YESIKA Isosorbide Mononitrate (Isosorbide Mononitrate 30 Mg Tab.Er.24h) 30 mg PO DAILY ON LICENSE OF [facility]; Protocol Last Admin: 06/08/22 08:18 Dose: 30 mg Documented By: HANNAH Lorazepam (Lorazepam 0.5 Mg Tablet) 0.5 mg PO DAILY PRN PRN Reason: anxiety Methylprednisolone Sodium Succinate (Methylprednisolone Sod Succ 125 Mg/2 Ml Vial) 60 mg IVPUSH Q12H ON LICENSE OF [facility] Last Admin: 06/08/22 08:18 Dose: 60 mg Documented By: HANNAH Metoprolol Tartrate (Metoprolol Tartrate 25 Mg Tablet) 25 mg PO BID ON LICENSE OF [facility]; Protocol Last Admin: 06/08/22 08:17 Dose: 25 mg Documented By: HANNAH Multivitamins/Vitamin C (Multivitamin Tablet) 1 tab PO DAILY ON LICENSE OF [facility] Last Admin: 06/08/22 08:18 Dose: 1 tab Documented By: HANNAH Non-Formulary Medication (Budesonide-Formoterol [Symbicort]) 2 puff INHALE DAILY ON LICENSE OF [facility] Nystatin (Nystatin Cream 15 Gm Tube) 1 appl TOPICAL BID ON LICENSE OF [facility]; Protocol Last Admin: 06/08/22 09:06 Dose: 1 appl Documented By: HANNAH Omeprazole (Omeprazole 20 Mg Capsule.Dr) 20 mg PO DAILY@0630 ON LICENSE OF [facility] Last Admin: 06/08/22 06:42 Dose: 20 mg Documented By: SANDER Pharmacy Consult (Consult Rx Perform Med Rec) 1 each MISCELLANE ONCE PRN PRN Reason: Consult order Sodium Chloride (0.9 % Sodium Chloride Flush 3 Ml Syringe) 3 ml IVFLUSH QSHIFT ON LICENSE OF [facility] Last Admin: 06/08/22 08:22 Dose: Not Given Documented By: HANNAH Non-Admin Reason: med given Theophylline (Theophylline Anhydrous Er 400 Mg Tab.Er.24h) 200 mg PO BID ON LICENSE OF [facility] Labs 06/07/22 18:44 06/07/22 19:38 Labs: Laboratory Results - last 24 hr 06/07/22 06/07/22 06/07/22 18:44 18:44 18:44 MCV 95.7 MCH 28.4 MCHC 29.7 L RDW 12.9 Plt Count 161 MPV 10.4 Immature Gran % (Auto) 0.6 H Neut % (Auto) 66.1 Lymph % (Auto) 22.0 [place] % (Auto) 9.4 Eos % (Auto) 1.3 Baso % (Auto) 0.6 Lymph # (Auto) 1.2 [place] # (Auto) 0.5 Eos # (Auto) 0.1 Baso # (Auto) 0.0 Abs Immat Gran (auto) 0.03 Absolute Neuts (auto) 3.6 Absolute Nucleated RBC 0.000 Nucleated RBC % (auto) 0.0 VBG pH VBG pCO2 VBG pO2 VBG HCO3 VBG O2 Saturation VBG Base Excess Anion Gap Estim Creat Clear Calc Estimated GFR POC Glucose Random Glucose Lactic Acid Calcium Total Bilirubin AST ALT Alkaline Phosphatase Total Protein Albumin Urine Color Yellow Urine Appearance Clear Urine pH >= 9.0 Ur Specific [place] 1.020 Urine Protein 30 (1+) H Urine Glucose (UA) Negative Urine Ketones Trace Urine Blood Negative Urine Nitrite Negative Ur Leukocyte Esterase Small (1+) H Urine RBC 0-2 Urine WBC 0-5 Ur Squamous Epith Cells 0-2 Urine Bacteria None Seen Hyaline Casts 0-2 COVID-19 ([facility]) Negative COVID-19 Clin Com See Note 06/07/22 06/07/22 06/07/22 19:38 21:18 22:04 MCV MCH MCHC RDW Plt Count MPV Immature Gran % (Auto) Neut % (Auto) Lymph % (Auto) [place] % (Auto) Eos % (Auto) Baso % (Auto) Lymph # (Auto) [place] # (Auto) Eos # (Auto) Baso # (Auto) Abs Immat Gran (auto) Absolute Neuts (auto) Absolute Nucleated RBC Nucleated RBC % (auto) VBG pH 7.33 VBG pCO2 79 VBG pO2 32 VBG HCO3 42 H VBG O2 Saturation 43.0 VBG Base Excess 12.3 Anion Gap 13 Estim Creat Clear Calc 90.2 Estimated GFR > 60 POC Glucose Random Glucose 126 H Lactic Acid 1.9 Calcium 9.1 D Total Bilirubin 0.5 AST 23 ALT 24 Alkaline Phosphatase 77 Total Protein 6.4 L Albumin 3.8 Urine Color Urine Appearance Urine pH Ur Specific [place] Urine Protein Urine Glucose (UA) Urine Ketones Urine Blood Urine Nitrite Ur Leukocyte Esterase Urine RBC Urine WBC Ur Squamous Epith Cells Urine Bacteria Hyaline Casts COVID-19 ([facility]) COVID-19 Clin Com 06/08/22 06/08/22 06/08/22 00:03 01:14 05:05 MCV MCH MCHC RDW Plt Count MPV Immature Gran % (Auto) Neut % (Auto) Lymph % (Auto) [place] % (Auto) Eos % (Auto) Baso % (Auto) Lymph # (Auto) [place] # (Auto) Eos # (Auto) Baso # (Auto) Abs Immat Gran (auto) Absolute Neuts (auto) Absolute Nucleated RBC Nucleated RBC % (auto) VBG pH VBG pCO2 VBG pO2 VBG HCO3 VBG O2 Saturation VBG Base Excess Anion Gap Estim Creat Clear Calc Estimated GFR POC Glucose 378 H* 398 H* 329 H Random Glucose Lactic Acid Calcium Total Bilirubin AST ALT Alkaline Phosphatase Total Protein Albumin Urine Color Urine Appearance Urine pH Ur Specific [place] Urine Protein Urine Glucose (UA) Urine Ketones Urine Blood Urine Nitrite Ur Leukocyte Esterase Urine RBC Urine WBC Ur Squamous Epith Cells Urine Bacteria Hyaline Casts COVID-19 ([facility]) COVID-19 Clin Com 06/08/22 06/08/22 07:16 12:38 MCV MCH MCHC RDW Plt Count MPV Immature Gran % (Auto) Neut % (Auto) Lymph % (Auto) [place] % (Auto) Eos % (Auto) Baso % (Auto) Lymph # (Auto) [place] # (Auto) Eos # (Auto) Baso # (Auto) Abs Immat Gran (auto) Absolute Neuts (auto) Absolute Nucleated RBC Nucleated RBC % (auto) VBG pH VBG pCO2 VBG pO2 VBG HCO3 VBG O2 Saturation VBG Base Excess Anion Gap Estim Creat Clear Calc Estimated GFR POC Glucose 290 H 251 H Random Glucose Lactic Acid Calcium Total Bilirubin AST ALT Alkaline Phosphatase Total Protein Albumin Urine Color Urine Appearance Urine pH Ur Specific [place] Urine Protein Urine Glucose (UA) Urine Ketones Urine Blood Urine Nitrite Ur Leukocyte Esterase Urine RBC Urine WBC Ur Squamous Epith Cells Urine Bacteria Hyaline Casts COVID-19 ([facility]) COVID-19 Clin Com Microbiology Microbiology Results: Microbiology 06/07/22 Unknown Urine Culture - Preliminary Urine clean catch - Urine tucker top Culture too young to evaluate. Assessment and Plan (1) Acute on chronic respiratory failure with hypoxia and hypercapnia: Status: Acute (2) COPD exacerbation: Status: Acute Plan 72-year-old male with a PMH significant for?asthma/COPD overlap, chronic hyp oxemic and hypercapnic respiratory failure, hepatic cirrhosis, hx of alcohol abuse, former smoker who quit 16 years ago, anxiety, HLD, HTN, and hx of left lung cancer?s/p chemo and radiation 10 years ago who presents to the ED with?increasing shortness of breath since last discharge 2 weeks ago. Pt will be admitted to the hospital acute on chronic hypoxemic hypercapnic respiratory failure secondary to COPD exacerbation. Acute on chronic hypoxemic hypercapnic respiratory failure secondary to COPD exacerbation improving with less shortness of breath and cough. Patient on 2.5 to 3 L supplemental O2 at baseline VBG with pH of 7.33, pCO2 79, PO2 32, HC03 42, at baseline CXR negative for pneumonia, negative for COVID Continue home inhalers continue Solu-Medrol 60 mg IV b.i.d. times 24 hours then transition to by mouth prednisone with slow taper, continue scheduled and as needed updraft treatment case discussed with Dr. Esqueda he recommend theophylline 200 mg b.i.d.,breathing exercise and slow steroid taper and close outpatient pulmonology follow-up Dysuria x2 weeks, UA negative on Nystatin cream b.i.d. HTN stable BP, Continue home meds CAD/HLD Troponin negative, EKG without evidence of ST elevations or depressions Continue aspirin, atorvastatin, isosorbide mononitrate, and metoprolol Non insulin dependent diabetes elevated blood sugars due to steroids continue insulin sliding scale diabetic diet and resume glipizide Mood disorder Continue home meds Normocytic anemia, chronic H&H at baseline, stable Full Code DVT Prophylaxis: Lovenox continue inpatient hospitalization for treatment of?acute on chronic hypoxemic hypercapnic respiratory failure secondary to COPD exacerbation. Time Spent With Patient Time: Total time managing care of this patient today ____ minutes. Quality Stroke Does the patient have a stroke diagnosis?: No VTE Prior VTE?: No VTE Risk Level:: Medical - moderate - high VTE Device Contraindication: Treatment Not Indicated VTE Drug Contraindication: N/A - Med Ordered
[2022-06-08 15:50] VITALS: BP 108/65; PULSE 78; RESP 20; TEMP 36.9; O2SAT 97
[2022-06-08] MEDS: 0.9 % Sodium Chloride Flush 3 ML SYRINGE IVFLUSH ×2 (15:51→23:51)
[2022-06-08 16:30] LABS: Glucose, Whole Blood 302 mg/dL (60-115)
[2022-06-08] MEDS: glipiZIDE 5 MG TABLET PO (17:28)
[2022-06-08 19:20] VITALS: PULSE 82; RESP 20; O2SAT 94
[2022-06-08 20:00] VITALS: BP 146/74; PULSE 104; RESP 17; TEMP 36.4; O2SAT 95
[2022-06-08] MEDS: Atorvastatin Calcium 80 MG TABLET PO (20:44)
[2022-06-08] MEDS: Theophylline Anhydrous ER 400 MG TAB.ER.24H 200 MG PO (20:45)
[2022-06-08 21:14] LABS: Glucose, Whole Blood 209 mg/dL (60-115)
[2022-06-08] MEDS: LORazepam 0.5 MG TABLET PO (23:00)
[2022-06-09] VITALS (8 sets, daily range): BP systolic 111–126; BP diastolic 56–63; PULSE 68–90; RESP 17–20; TEMP 36.2–36.8; O2SAT 92–98
[2022-06-09] MEDS: Omeprazole 20 MG CAPSULE.DR PO (05:48)
[2022-06-09 07:30] LABS: Glucose, Whole Blood 214 mg/dL (60-115)
[2022-06-09] MEDS: Metoprolol Tartrate 25 MG TABLET PO ×2 (08:23→20:46)
[2022-06-09] MEDS: Escitalopram Oxalate 10 MG TABLET PO (08:23)
[2022-06-09] MEDS: Furosemide 20 MG TABLET PO (08:23)
[2022-06-09] MEDS: Isosorbide Mononitrate 30 MG TAB.ER.24H PO (08:23)
[2022-06-09] MEDS: Theophylline Anhydrous ER 400 MG TAB.ER.24H 200 MG PO ×2 (08:24→20:45)
[2022-06-09] MEDS: Aspirin Enteric Coated 81 MG TABLET.DR PO (08:25)
[2022-06-09] MEDS: glipiZIDE 10 MG TABLET PO (08:25)
[2022-06-09] MEDS: Calcium + Vitamin D 250 MG TABLET 500 MG PO (08:25)
[2022-06-09] MEDS: methylPREDNISolone Sod Succ 125 MG/2 ML VIAL 60 MG IVPUSH (08:25)
[2022-06-09] MEDS: Multivitamin TABLET 1 TAB PO (08:25)
[2022-06-09] MEDS: Insulin Lispro 100 UNIT/ML 3 ML VIAL SUBCUT ×4 (08:26→20:47)
[2022-06-09] MEDS: 0.9 % Sodium Chloride Flush 3 ML SYRINGE IVFLUSH ×2 (08:26→17:19)
[2022-06-09] MEDS: Nystatin Cream 15 GM TUBE 1 APPL TOPICAL ×2 (08:32→20:48)
[2022-06-09 10:11] LABS: Venous Blood Gas Refer to POC result
[2022-06-09 10:13] LABS: VBG Base Excess 7.8 mmol/L; VBG HCO3 35 mmol/L (22-26); VBG pCO2 59 mmHg; VBG pH 7.37 (7.32-7.43); VBG pO2 78 mmHg
[2022-06-09 11:14] LABS: Glucose, Whole Blood 358 mg/dL (60-115)
--- NOTE | 2022-06-09 11:27 | HO.PM.IMPN ---
Subjective Subjective Date of Service: 06/09/22 Interval History: feeling better this a.m. but last night felt short of breath, complaining of shortness of breath with activity, no fevers no chills no worsening cough no lightheadedness or dizziness, finger oximetry 98% on 2 L Review of Systems Review of Systems: Yes all other systems are reviewed and are negative Physical Exam Vital Signs: Vital Signs: Last Vital Signs Temp 97.5 F 06/09/22 08:00 Pulse 74 06/09/22 08:06 Resp 17 06/09/22 08:06 BP 126/63 06/09/22 08:00 Pulse Ox 98 06/09/22 08:00 O2 Del Method 06/09/22 08:00 O2 Flow Rate 3.0 06/09/22 08:00 Oxygen Flow Rate 3 06/07/22 18:22 BMI result Body Mass Index 32.3 Const: Other: General? awake alert x3, sitting comfortably in no acute distress.? Neck supple no JVD. CVS? regular rate rhythm, Respiratory lungs clear to auscultation, diminished breath sound, no respiratory distress, no wheeze, no rhonchi. Gastrointestinal abdomen soft, nontender, bowel sounds audible, no guarding , no rigidity. Extremities non pitting edema. Neuro nonfocal Skin no rash psych appropriate affect Objective Data Active Medications Acetaminophen (Acetaminophen 325 Mg Tablet) 650 mg PO Q6H PRN PRN Reason: Pain, Mild (Pain Scale 1-3) Albuterol Sulfate (Albuterol Sulfate 90 Mcg 8 Gm Inhaler) 4 puff INHALE Q2H PRN PRN Reason: Wheezing Aspirin (Aspirin Enteric Coated 81 Mg Tablet.) 81 mg PO DAILY [facility] Last Admin: 06/09/22 08:25 Dose: 81 mg Documented By: CATHERINE Atorvastatin Calcium (Atorvastatin Calcium 80 Mg Tablet) 80 mg PO BEDTIME [facility] Last Admin: 06/08/22 20:44 Dose: 80 mg Documented By: MARKIE Calcium Carbonate/Cholecalciferol (Calcium + Vitamin D 250 Mg Tablet) 500 mg PO DAILY [facility] Last Admin: 06/09/22 08:25 Dose: 500 mg Documented By: CATHERINE Albuterol Sulfate 2.5 mg/ (Ipratropium [place] 0.5 mg) 0 mg INHALE RQ4H WHILE AWAKE [facility] Last Admin: 06/09/22 08:03 Dose: 1 each Documented By: KASHMIR Albuterol Sulfate 2.5 mg/ (Ipratropium [place] 0.5 mg) 0 mg INHALE Q6H PRN PRN Reason: Shortness of Breath Dextrose (Dextrose 50 % 25 Gm/50 Ml Syringe) 25 gm IVPUSH Q15M PRN; Protocol PRN Reason: per Hypoglycemia Standing Ord. Docusate Sodium (Docusate Sodium 100 Mg Capsule) 100 mg PO DAILY PRN PRN Reason: Constipation Enoxaparin Sodium (Enoxaparin Sodium 40 Mg/0.4 Ml Syringe) 40 mg SUBCUT Q24H [facility] Last Admin: 06/08/22 20:47 Dose: Not Given Documented By: MARKIE Non-Admin Reason: Patient Refused Escitalopram Oxalate (Escitalopram Oxalate 10 Mg Tablet) 10 mg PO DAILY [facility] Last Admin: 06/09/22 08:23 Dose: 10 mg Documented By: CATHERINE Furosemide (Furosemide 20 Mg Tablet) 20 mg PO DAILY [facility]; Protocol Last Admin: 06/09/22 08:23 Dose: 20 mg Documented By: CATHERINE Glipizide (Glipizide 5 Mg Tablet) 5 mg PO DAILY@1700 [facility] Last Admin: 06/08/22 17:28 Dose: 5 mg Documented By: MARKIE Glipizide (Glipizide 10 Mg Tablet) 10 mg PO DAILY [facility] Last Admin: 06/09/22 08:25 Dose: 10 mg Documented By: CATHERINE Glucose (Glucose Gel 15 Gm Gel..Gram.) 15 gm PO Q15M PRN; Protocol PRN Reason: per Hypoglycemia Standing Ord. Insulin Human Lispro (Insulin Lispro 100 Unit/Ml 3 Ml Vial) 0 unit SUBCUT QIDACHS [facility]; Protocol Last Admin: 06/09/22 08:26 Dose: 4 unit Documented By: CATHERINE Isosorbide Mononitrate (Isosorbide Mononitrate 30 Mg Tab.Er.24h) 30 mg PO DAILY [facility]; Protocol Last Admin: 06/09/22 08:23 Dose: 30 mg Documented By: CATHERINE Lorazepam (Lorazepam 0.5 Mg Tablet) 0.5 mg PO DAILY PRN PRN Reason: anxiety Last Admin: 06/08/22 23:00 Dose: 0.5 mg Documented By: MARKIE Methylprednisolone Sodium Succinate (Methylprednisolone Sod Succ 125 Mg/2 Ml Vial) 60 mg IVPUSH Q12H [facility] Last Admin: 06/09/22 08:25 Dose: 60 mg Documented By: CATHERINE Metoprolol Tartrate (Metoprolol Tartrate 25 Mg Tablet) 25 mg PO BID [facility]; Protocol Last Admin: 06/09/22 08:23 Dose: 25 mg Documented By: CATHERINE Multivitamins/Vitamin C (Multivitamin Tablet) 1 tab PO DAILY [facility] Last Admin: 06/09/22 08:25 Dose: 1 tab Documented By: CATHERINE Non-Formulary Medication (Budesonide-Formoterol [Symbicort]) 2 puff INHALE DAILY [facility] Nystatin (Nystatin Cream 15 Gm Tube) 1 appl TOPICAL BID [facility]; Protocol Last Admin: 06/09/22 08:32 Dose: 1 appl Documented By: CATHERINE Omeprazole (Omeprazole 20 Mg Capsule.Dr) 20 mg PO DAILY@0630 [facility] Last Admin: 06/09/22 05:48 Dose: 20 mg Documented By: DAXA Pharmacy Consult (Consult Rx Perform Med Rec) 1 each MISCELLANE ONCE PRN PRN Reason: Consult order Sodium Chloride (0.9 % Sodium Chloride Flush 3 Ml Syringe) 3 ml IVFLUSH QSHIFT [facility] Last Admin: 06/09/22 08:26 Dose: 3 ml Documented By: CATHERINE Theophylline (Theophylline Anhydrous Er 400 Mg Tab.Er.24h) 200 mg PO BID [facility] Last Admin: 06/09/22 08:24 Dose: 200 mg Documented By: CATHERINE Labs 06/07/22 18:44 06/07/22 19:38 Labs: Laboratory Results - last 24 hr 06/08/22 06/08/22 06/08/22 12:38 16:26 20:45 VBG pH VBG pCO2 VBG pO2 VBG HCO3 VBG O2 Saturation VBG Base Excess POC Glucose 251 H 302 H 209 H 06/09/22 06/09/22 06/09/22 07:27 10:04 11:03 VBG pH 7.37 VBG pCO2 59 VBG pO2 78 VBG HCO3 35 H VBG O2 Saturation 96.0 VBG Base Excess 7.8 POC Glucose 214 H 358 H* Microbiology Microbiology Results: Microbiology 06/07/22 Unknown Urine Culture - Final Urine clean catch - Urine tucker top 06/07/22 21:18 Blood Culture - Preliminary Blood - Venous No growth after 24 hours. 06/07/22 21:18 Blood Culture - Preliminary Blood - Venous No growth after 24 hours. Assessment and Plan (1) Acute on chronic respiratory failure with hypoxia and hypercapnia: Status: Acute (2) COPD exacerbation: Status: Acute Plan 72-year-old male with a PMH significant for?asthma/COPD overlap, chronic hypoxemic and hypercapnic respiratory failure, hepatic cirrhosis, hx of alcohol abuse, former smoker who quit 16 years ago, anxiety, HLD, HTN, and hx of left lung cancer?s/p chemo and radiation 10 years ago who presents to the ED with?increasing shortness of breath since last discharge 2 weeks ago. Pt will be admitted to the hospital acute on chronic hypoxemic hypercapnic respiratory failure secondary to COPD exacerbation. Acute on chronic hypoxemic hypercapnic respiratory failure secondary to COPD exacerbation improving, less shortness of breath and cough. Patient on 2.5 to 3 L supplemental O2 at baseline VBG with pH of 7.33, pCO2 79, PO2 32, HC03 42, at baseline CXR negative for pneumonia, negative for COVID Continue home inhalers on iv Solu-Medrol 60 mg IV b.i.d. will transition to by mouth prednisone with slow taper, continue scheduled and as needed updraft treatment started on theophylline 200 [address] b.i.d., by Dr. Esqueda, encourage breathing exercise recommend outpatient follow-up for retrial of BiPAP Dysuria x2 weeks, UA negative, symptoms improved HTN stable BP, Continue home meds CAD/HLD Troponin negative, EKG without evidence of ST elevations or depressions Continue aspirin, atorvastatin, isosorbide mononitrate, and metoprolol Non insulin dependent diabetes elevated blood sugars due to steroids continue insulin sliding scale, diabetic diet and glipizide. Mood disorder Continue home meds Normocytic anemia, chronic H&H at baseline, stable Full Code DVT Prophylaxis: Lovenox continue inpatient hospitalization for treatment of?acute on chronic hypoxemic hypercapnic respiratory failure secondary to COPD exacerbation. Time Spent With Patient Time: Total time managing care of this patient today ____ minutes. Quality Stroke Does the patient have a stroke diagnosis?: No VTE Prior VTE?: No VTE Risk Level:: Medical - moderate - high VTE Device Contraindication: Treatment Not Indicated VTE Drug Contraindication: N/A - Med Ordered
--- NOTE | 2022-06-09 14:54 | MHC.CM.PN ---
PT REPORTS HE LIVES WITH HIS AND GRANDSON HE IS INDEPENDENT WITH CARE PT USES A CPAP, O2 AND NEBULIZER HE HAS NO SERVICES PT IS COVID [place] COPY OF HCP REQUESTED PCP: JOSE F HAYWARD IMM DELIVERED CURRENT DC PLAN IS HOME WITH NO SERVICES FAMILY TO TRANSPORT
[2022-06-09 16:24] LABS: Glucose, Whole Blood 258 mg/dL (60-115)
[2022-06-09] MEDS: glipiZIDE 5 MG TABLET PO (17:18)
[2022-06-09 20:45] LABS: Glucose, Whole Blood 323 mg/dL (60-115)
[2022-06-09] MEDS: Atorvastatin Calcium 80 MG TABLET PO (20:46)
[2022-06-09] MEDS: LORazepam 0.5 MG TABLET PO (21:42)
[2022-06-09] MEDS: Enoxaparin Sodium 40 MG/0.4 ML SYRINGE SUBCUT (23:28)
[2022-06-10] MEDS: 0.9 % Sodium Chloride Flush 3 ML SYRINGE IVFLUSH ×2 (00:28→08:57)
[2022-06-10 03:10] VITALS: BP 105/67; PULSE 71; RESP 17; TEMP 36.4; O2SAT 96
[2022-06-10] MEDS: Omeprazole 20 MG CAPSULE.DR PO (05:26)
[2022-06-10 07:33] LABS: Glucose, Whole Blood 132 mg/dL (60-115)
[2022-06-10 08:00] VITALS: BP 117/57; PULSE 72; RESP 17; TEMP 36.5; O2SAT 98
[2022-06-10 08:05] VITALS: PULSE 72; RESP 16; O2SAT 97
[2022-06-10] MEDS: Aspirin Enteric Coated 81 MG TABLET.DR PO (08:56)
[2022-06-10] MEDS: Escitalopram Oxalate 10 MG TABLET PO (08:56)
[2022-06-10] MEDS: Calcium + Vitamin D 250 MG TABLET 500 MG PO (08:56)
[2022-06-10] MEDS: Furosemide 20 MG TABLET PO (08:57)
[2022-06-10] MEDS: Metoprolol Tartrate 25 MG TABLET PO (08:57)
[2022-06-10] MEDS: Multivitamin TABLET 1 TAB PO (08:57)
[2022-06-10] MEDS: glipiZIDE 10 MG TABLET PO (08:57)
[2022-06-10] MEDS: predniSONE 20 MG TABLET 40 MG PO (09:13)
[2022-06-10] MEDS: Theophylline Anhydrous ER 400 MG TAB.ER.24H 200 MG PO (09:13)
[2022-06-10] MEDS: Isosorbide Mononitrate 30 MG TAB.ER.24H PO (09:14)
[2022-06-10] MEDS: Nystatin Cream 15 GM TUBE 1 APPL TOPICAL (09:15)
--- NOTE | 2022-06-10 10:35 | P.DS_ITS ---
DS: Providers Provider Date of Service: 06/10/22 Date of admission: 06/07/22 22:09 Primary care physician: Anne-Marie Muro MD Consults: 06/07/22 22:17 Consult to Pulmonology Routine Consulting Provider: Rosmery Esqueda Reason for consultation: Re-admission for SOB after discharge 2 weeks ago DS: Diagnosis Discharge Diagnosis (1) Acute on chronic respiratory failure with hypoxia and hypercapnia: Status: Acute (2) COPD exacerbation: Status: Acute DS: Summary Hospital Course Hospital Course: Date of Service: 06/07/22 Attending physician on admission: Yovany Riddle Chief Complaint: SOB Pt is a 72-year-old male with a PMH significant for?asthma/COPD overlap, chronic hypoxemic and hypercapnic respiratory failure, hepatic cirrhosis, hx of alcohol abuse, former smoker who quit 16 years ago, anxiety, HLD, HTN, and hx of left lung cancer?s/p chemo and radiation 10 years ago who presents to the ED with?increasing shortness of breath.? Patient was recently admitted to the hospital on 05/21/22-05/23/22 for acute on chronic hypoxemic hypercapnic respiratory failure secondary to COPD exacerbation and treated with IV steroids, DuoNeb updrafts, and azithromycin.? After discharge patient states that he never quite got back to baseline.? Has been feeling weak, dizzy, and short of breath especially with standing up and with exertion.? Patient notes he can barely walk across the room at home without having to stop to catch his breath.? Patient presents today from his PCP office where he went for UTI-like symptoms of dysuria which had been ongoing for two-plus weeks.? Patient was on his way back from the bathroom when he became short of breath and nearly passed out when he went to sit down.? EMS was called and found him to be satting in the low 80s while on his home dose of 2.5 L supplemental O2. In the ED labs were significant for H&H stable at 12.0/40.4, and carbon dioxide of 37 (near baseline), lactic acid WNL.? VBG with pH of 7.33, pCO2 79, PO2 32, HC03 42, at baseline.? UA negative for UTI.? CXR showed no acute process seen, chronic changes similar to those in previous study on 05/21/2022 of focal volume loss and retraction of the upper left lobe. EKG demonstrated normal sinus rhythm without evidence of ST elevations or depressions. Pt was treated with albuterol, IV steroids, and ceftriaxone. Pt will be admitted to the hospital acute on chronic hypoxemic hypercapnic respiratory failure secondary to COPD exacerbation. hospital course 72-year-old male with a PMH significant for?asthma/COPD overlap, chronic hypoxemic and hypercapnic respiratory failure, hepatic cirrhosis, hx of alcohol abuse, former smoker who quit 16 years ago, anxiety, HLD, HTN, and hx of left lung cancer?s/p chemo and radiation 10 years ago who presents to the ED with?increasing shortness of breath since last discharge 2 weeks ago. Pt. admitted to the hospital for acute on chronic hypoxemic hypercapnic respiratory failure secondary to COPD exacerbation, and treated with IV Solu Medrol, and scheduled updraft treatment patient was evaluated by Dr. Esqueda he recommended prolonged tapering of prednisone and added theophylline, patient was continued on 2.5 L of home oxygen patient's symptoms improved he is now being discharged home with strong recommendation for outpatient follow-up with Dr. Davey and consider retrial of BiPAP, in regard to hypertension, coronary artery disease and hyperlipidemia patient EKG showed no evidence of ST elevation had normal troponin patient has been continued on home medications including aspirin statin isosorbide and metoprolol, patient was noted to have elevated blood sugars due to steroids he has been continued on glipizide and strongly recommended to follow a diabetic diet patient H&H remained stable with underlying history of chronic normocytic anemia.. Time Spent with Patient Time attestation: Total time managing care of this patient today ____ minutes. Discharge coordination time: Greater than 30 minutes Quality: Safe Use of Opioids Does Pt have an Active Cancer Diagnosis on the Problem List?: No Quality: Stroke Does the patient have a stroke diagnosis?: No Physical Exam Vital Signs: Vital Signs: Last Vital Signs Temp 97.7 F 06/10/22 08:00 Pulse 72 06/10/22 08:05 Resp 16 06/10/22 08:05 BP 117/57 L 06/10/22 08:00 Pulse Ox 98 06/10/22 08:00 O2 Del Method 06/10/22 08:00 O2 Flow Rate 2.0 06/10/22 08:00 Oxygen Flow Rate 3 06/07/22 18:22 BMI result Body Mass Index 32.3 Const: Other: General? awake alert x3, sitting comfortably in no acute distress.? Neck supple no JVD. CVS? regular rate rhythm, Respiratory lungs clear to auscultation, diminished breath sound, no respiratory distress, no wheeze, no rhonchi. Gastrointestinal abdomen soft, nontender, bowel sounds audible, no guarding , no rigidity. Extremities non pitting edema. Neuro nonfocal Skin no rash psych appropriate affect DS: Data Data Completed and Pending Labs on day of discharge: Laboratory Results - last 24 hr 06/09/22 06/09/22 06/09/22 11:03 16:14 20:39 POC Glucose 358 H* 258 H 323 H 06/10/22 07:28 POC Glucose 132 H Preliminary micro results at discharge 06/07/22 21:18 Blood Culture - Preliminary Blood - Venous No growth after 48 hours. 06/07/22 21:18 Blood Culture - Preliminary Blood - Venous No growth after 48 hours. Discharge Plan Discharge Anticipated Discharge Date/Time: 06/10/22 10:23 Patient Disposition: Home, Self-Care Discharge Diagnosis: acute on chronic hypercarbic and hypoxic respiratory failure Referrals: Anne-Marie Muro MD [Primary Care Provider] - 1 Week Discharge Medications: New theophylline 200 mg capsule,extended release 24hr 200 mg PO DAILY Qty: 30 0RF prednisone 10 mg tablet 10 mg PO DAILY Qty: 60 0RF Rx Instructions: take prednisone(10mg X3) 30mg po daily x1 week ,than prednisone (10mgx2) 20mg po daily x 1week,than 10mg daily x 1week than resume 5mg po daily Continued multivitamin [Daily-Kathleen] Tablet 1 tab PO DAILY Qty: 90 3RF metformin 1,000 mg tablet 1,000 mg PO BID Qty: 180 4RF (DME) FreeStyle Lite Strips Strip See Rx Instructions .Route Qty: 100 5RF Rx Instructions: check fasting glucose BID ac (DME) blood-glucose meter [FreeStyle Lite Meter] Kit See Rx Instructions .Route Qty: 1 0RF Rx Instructions: As directed atorvastatin 80 mg tablet 80 mg PO BEDTIME Qty: 90 3RF metoprolol tartrate 25 mg tablet 25 mg PO BID Qty: 180 1RF lorazepam 0.5 mg tablet 0.5 mg PO DAILY PRN (Reason: anxiety) Qty: 30 0RF isosorbide mononitrate 30 mg tablet extended release 24 hr 30 mg PO DAILY budesonide-formoterol [Symbicort] 160-4.5 mcg/actuation Hfa Aerosol Inhaler 2 puff INHALATION DAILY omeprazole 20 mg capsule,delayed release(DR/EC) 20 mg PO DAILY@0630 azithromycin 500 mg tablet 1 tab PO MOWEFR@1000 glipizide 5 mg Tablet 10 mg PO DAILY glipizide 5 mg Tablet 5 mg PO DAILY@1700 escitalopram oxalate 20 mg tablet 10 mg PO DAILY calcium carbonate-vitamin D3 600 mg-10 mcg (400 unit) tablet 1 tab PO DAILY aspirin 81 mg Tablet,Delayed Release (Dr/Ec) 81 mg PO DAILY furosemide 20 mg tablet 20 mg PO DAILY albuterol sulfate 90 mcg/actuation HFA aerosol inhaler 2 puff PO Q4H PRN (Reason: Shortness Of Breath Or Wheezing) ipratropium-albuterol 0.5 mg-3 mg(2.5 mg base)/3 mL solution for nebulization 3 ml inhalation Q6H PRN (Reason: COPD) Discontinued prednisone 10 mg tablet 5 mg PO DAILY Rx Instructions: Take prednisone 10 mg 1 tablet daily for 1 week, then take half tablet (5mg )by mouth daily times 14 days. STARTED 05/23/22, SHOULD HAVE 1 MORE WEEK Discharge Orders: Discharge Order (Routine); Ordered 06/10/22 Ordered By: Sadi Anguiano Diet: Diabetic diet Activity on Discharge: As tolerated Stand Alone Forms: Patient Portal Discharge page Care Plan Goals: take prednisone as directed, theophylline 200 mg by mouth daily as instructed Take DuoNeb updraft treatment 4 times a day scheduled continue home oxygen as before, activity as tolerated Health Concerns: elevated blood sugars due to steroids recommend to follow diabetic diet Plan of Treatment: outpatient follow-up with sales demonstrator Dr. Davey in 1 week Assessment: as above
[2022-06-10 11:22] LABS: Glucose, Whole Blood 232 mg/dL (60-115)
[2022-06-10] MEDS: Insulin Lispro 100 UNIT/ML 3 ML VIAL SUBCUT (12:05)
[2022-06-10 12:07] VITALS: PULSE 78; RESP 18; O2SAT 93
== END 2022-06-10 13:45 | disposition home or self-care (01) | DRG 190 ==
LOC: HO.ED 21:33 → HO.EDOVER 22:21 → HO.S3 06-08 15:26
PROVIDERS: Internal Medicine; Student in an Organized Health Care Education/Training Program; Admitting Provider Student in an Organized Health Care Education/Training Program; Emergency Provider Emergency Medicine; PCP Internal Medicine; Visit Provider Hospitalist
DX: J44.1 Chronic obstructive pulmonary disease with (acute) exacerbation (principal); J96.21 Acute and chronic respiratory failure with hypoxia; J96.22 Acute and chronic respiratory failure with hypercapnia; I25.10 Atherosclerotic heart disease of native coronary artery without angina pectoris; E78.5 Hyperlipidemia, unspecified; D63.8 Anemia in other chronic diseases classified elsewhere; F10.11 Alcohol abuse, in remission; Z20.822 Contact with and (suspected) exposure to COVID-19; Z85.118 Personal history of other malignant neoplasm of bronchus and lung; Z92.21 Personal history of antineoplastic chemotherapy; Z92.3 Personal history of irradiation; Z99.81 Dependence on supplemental oxygen; Z87.891 Personal history of nicotine dependence; Z88.8 Allergy status to other drugs, medicaments and biological substances; Z79.82 Long term (current) use of aspirin; Z79.84 Long term (current) use of oral hypoglycemic drugs; Z79.899 Other long term (current) drug therapy
CPT/HCPCS: 36415; 71045; 80053; 81001; 81003; 82803; 82947; 83605; 85025; 87040; 87086; 87635; 93005; 94640; 96365; 96375; 99285; J0456; J0696; J1650; J2930

== ENCOUNTER → 2022-06-14 11:12 | Outpatient (BNVA) | payer MEDICARE, SELFPAY | PROVIDERS: PCP Internal Medicine; Visit Provider Hospitalist | DX: J44.9 Chronic obstructive pulmonary disease, unspecified (principal); J70.1 Chronic and other pulmonary manifestations due to radiation; J96.11 Chronic respiratory failure with hypoxia; J96.12 Chronic respiratory failure with hypercapnia | CPT/HCPCS: 99202 ==

== ENCOUNTER 2022-07-17 23:15 | Emergency (ER) | payer MEDICARE, SELFPAY ==
--- NOTE | 2022-07-17 | ECG_ITS ---
Test Reason : sob Blood Pressure : / mmHG Vent. Rate : 085 BPM Atrial Rate : 085 BPM P-R Int : 154 ms QRS Dur : 080 ms QT Int : 364 ms P-R-T Axes : 051 081 070 degrees QTc Int : 433 ms Normal sinus rhythm Normal ECG When compared with ECG of 07-JUN-2022 19:03, No significant change was found Referred By: Generic ED Physician Electronically Signed By:SMITH TREVIÑO MD
--- NOTE | ~2022-07-17 | XR_ITS ---
EXAMINATION: XR CHEST CLINICAL INFORMATION: Shortness of breath COMPARISON: 06/07/2022 TECHNIQUE: Frontal view of the chest was obtained. FINDINGS: No interval change when compared to the prior study with chronic pleural parenchymal scarring and volume at the left apex. Heart size normal. No infiltrates, effusions or suspicious lung masses are seen. Degenerative changes are present in the shoulders calcification in the left supraspinatus tendon. XR/XR chest 1V IMPRESSION: No acute intrathoracic disease. Chronic findings as described above.
[2022-07-17 23:26] VITALS: BP 113/74; BP 97/54; PULSE 84; PULSE 89; RESP 18; TEMP 37.2; O2SAT 94; O2SAT 96; BMI 32.3
[2022-07-18 00:05] LABS: MANUAL DIFF FLAG NO
[2022-07-18 00:11] LABS: Basophils Percent Auto 0.7 % (0-2); Eosinophils Absolute Auto 0.1 X10*3/uL (0.0-0.4); Eosinophils Percent Auto 2.1 % (0-4); Hematocrit 38.8 % (42.0-52.0); Hemoglobin 11.9 g/dl (14.0-18.0); Imm Gran Abs Auto 0.04 X10*3/uL (0.00-0.03); Imm Gran Pct Auto 0.7 % (0.0-0.4); Lymphocytes Absolute Auto 1.5 X10*3/uL (1.2-4.9); Lymphocytes Percent Auto 28.1 % (20-40); Mean Corpuscular HGB Conc 30.7 g/dl (31.0-36.0); Mean Corpuscular Hemoglobin 29.2 pg (27.0-33.0); Mean Corpuscular Volume 95.3 fL (80.0-98.0); Mean Platelet Volume 10.2 fL (9.4-12.4); Monocytes Absolute Auto 0.7 X10*3/uL (0.1-1.2); Monocytes Percent Auto 12.9 % (2-11); Neutrophils Percent Auto 55.5 % (45-73); Platelet Count 170 X10*3/uL (160-400); Red Blood Count 4.07 X10*6/uL (4.60-5.80); Red Cell Distribution Width 13.6 % (11.0-16.0); White Blood Count 5.3 X10*3/uL (4.8-10.8)
--- NOTE | 2022-07-18 00:13 | ED.SOB ---
HPI - SOB/Dyspnea General Chief Complaint: Dyspnea Stated Complaint: sob Time Seen by Provider: 07/18/22 00:11 Source: patient Mode of arrival: ambulatory Limitations: no limitations History of Present Illness HPI Narrative: Patient is 72 years old with history of severe COPD on 2 L of oxygen 24 hours and prednisone with history of lung cancer status post chemo and radiation with fibrosis with chronic hypercarbic respiratory failure comes in for increased shortness of breath with leg swelling for last few days patient does have chronic dry cough no fever no chills no chest pain or palpitation Related Data Home Medications Medication Instructions Recorded Confirmed albuterol sulfate 90 mcg/actuation 2 puff PO Q4H PRN Shortness Of 01/14/20 06/25/22 aerosol inhaler Breath Or Wheezing ipratropium 0.5 mg-albuterol 3 mg 3 ml inhalation Q6H PRN COPD 01/14/20 06/25/22 (2.5 mg base)/3 mL nebulization soln budesonide-formoterol HFA 160 2 puff inhalation DAILY 03/14/21 06/25/22 mcg-4.5 mcg/actuation aerosol inhaler (Symbicort) isosorbide mononitrate 30 mg 30 mg PO DAILY 03/14/21 06/25/22 tablet,extended release 24 hr aspirin 81 mg tablet,delayed 81 mg PO DAILY 08/04/21 06/25/22 release calcium carbonate 600 mg-vitamin 1 tab PO DAILY 08/04/21 06/25/22 D3 10 mcg (400 unit) tablet omeprazole 20 mg capsule,delayed 20 mg PO DAILY@0630 11/28/21 06/25/22 release escitalopram oxalate 20 mg tablet 10 mg PO DAILY 06/07/22 06/25/22 glipizide 5 mg tablet 5 mg PO DAILY@1700 06/07/22 06/25/22 glipizide 5 mg tablet 10 mg PO DAILY 06/07/22 06/25/22 Oxygen Home Use 06/14/22 06/25/22 nebulizers 06/14/22 06/25/22 Previous Rx's Medication Instructions Recorded multivitamin (Daily-Kathleen tablet) 1 tab PO DAILY #90 tabs 05/13/20 metformin 1,000 mg tablet 1,000 mg PO BID #180 tabs 11/07/21 blood sugar diagnostic (FreeStyle #100 ea 01/23/22 Lite Strips) blood-glucose meter (FreeStyle #1 ea 01/23/22 Lite Meter kit) atorvastatin 80 mg tablet 80 mg PO BEDTIME #90 tabs 02/05/22 metoprolol tartrate 25 mg tablet 25 mg PO BID #180 tabs 05/02/22 prednisone 10 mg tablet 10 mg PO DAILY #60 tabs 06/10/22 lorazepam 0.5 mg tablet 0.5 mg PO DAILY PRN anxiety #30 07/11/22 tabs hydrochlorothiazide 25 mg tablet 25 mg PO QAM #30 tabs 07/18/22 Allergies Allergy/AdvReac Type Severity Reaction Status Date / Time fluticasone furoate Allergy Intermediate rash Verified 06/30/22 04:11 [From Trelegy Ellipta] vilanterol Allergy Intermediate rash Verified 06/30/22 04:11 [From Trelegy Ellipta] umeclidinium Allergy Unknown hives Verified 06/30/22 04:11 [Incruse Ellipta] lasix AdvReac Intermediate Hallucinati Uncoded 06/30/22 04:11 ons Review of Systems Review of Systems: Yes all other systems are reviewed and are negative [facility] Past Medical History Medical History Acute on chronic respiratory failure with hypoxia and hypercapnia Anemia Asthma Bacteremia due to Enterococcus Chronic lung disease Chronic lung disease Chronic respiratory failure Chronic respiratory failure with hypoxia and hypercapnia COPD exacerbation COPD, severe Diabetes mellitus with hyperglycemia, without long-term current use of insulin Dyslipidemia Generalized anxiety disorder History of pneumonia HTN (hypertension) Hyperlipemia Lung cancer Radiation fibrosis of lung Skin cancer Urinary incontinence Surgical History History of esophagogastroduodenoscopy (EGD) Hx of colonoscopy Hx of heart artery stent Family History Family History Father Medical history non-contributory Mother Medical history non-contributory Unknown family medical history Lung collapse Brother No problems noted. Brother No problems noted. Son Substance use disorder Son No problems noted. Daughter No problems noted. Sister No problems noted. Sister No problems noted. Sister No problems noted. Sister No problems noted. Other HTN (hypertension) Social History Social History Household Members: Spouse Household Members Other:: grandson Housing: House Are you a primary behavioral health care coordinator to a significant other at home: No Do you presently have visiting nurse or other home services: No Alcohol intake: former Patient Tobacco Use Status: Former Tobacco user e-Cigarette/Vaping Use: Never Used Use of substances other than those prescribed or required for medical reasons: No Advance Directives: Yes Advance Directives on File: Yes Advance Directives Date on File: 06/08/22 service: No Current occupational status: retired Cognitive needs: No Hearing needs: No Vision needs: No Physical Exam Vital Signs: Vital Signs: Last Vital Signs Temp 98.9 F 07/17/22 23:26 Pulse 80 07/18/22 00:40 Resp 18 07/18/22 00:40 BP 97/54 L 07/17/22 23:26 Pulse Ox 94 07/17/22 23:26 O2 Del Method Nasal Cannula 07/17/22 23:26 Oxygen Flow Rate 2 07/17/22 23:26 BMI result Body Mass Index 32.3 Appearance: Alert. Oriented X3. No acute distress. Eyes: PERRLA, No Nystagmus ENT: Pharynx normal. Oral Mucosa moist Neck: Normal inspection. Neck supple. CVS: Normal heart rate and rhythm. Pulses normal. Respiratory: No respiratory distress. Equal air entry bilateral, prolonged expiration with wheezing occasional crackles Abdomen: Soft and nontender. Bowel sounds are present, no mass palpable, no CVA tenderness Skin: Skin warm and dry. Normal skin color. Normal skin turgor. Extremities: 2+ lower extremity edema. No calf tenderness Neuro: Oriented X 3. No motor deficit. No sensory deficit.No cerebellar signs , cranial nerves II-XII intact Medications Administered Discontinued Medications Generic Name Dose Route Start Last Admin Trade Name Freq PRN Reason Stop Dose Admin Albuterol Sulfate 2.5 mg/ 0 mg 07/18/22 00:27 07/18/22 00:37 Albuterol/Ipratropium 3 ml INHALE 07/18/22 00:28 5 each ONCE ONE Administration Medical Decision Making Medical Decision Making MDM Narrative: Patient with severe COPD with pain and edema secondary to cor pulmonale. BNP normal no finding of CHF discharge patient home on low-dose of hydrochlorothiazide daily and advised patient to keep his legs elevated Lab Data MDM Lab Attestation statement: I reviewed the patient's lab results. 07/17/22 23:50 07/17/22 23:50 Labs: Lab Results 07/17/22 07/17/22 07/17/22 Range/Units 23:50 23:50 23:50 WBC 5.3 (4.8-10.8) X10*3/uL RBC 4.07 L (4.60-5.80) X10*6/uL Hgb 11.9 L (14.0-18.0) g/dl Hct 38.8 L (42.0-52.0) % MCV 95.3 (80.0-98.0) fL MCH 29.2 (27.0-33.0) pg MCHC 30.7 L (31.0-36.0) g/dl RDW 13.6 (11.0-16.0) % Plt Count 170 (160-400) X10*3/uL MPV 10.2 (9.4-12.4) fL Immature Gran % (Auto) 0.7 H (0.0-0.4) % Neut % (Auto) 55.5 (45-73) % Lymph % (Auto) 28.1 (20-40) % [place] % (Auto) 12.9 H (2-11) % Eos % (Auto) 2.1 (0-4) % Baso % (Auto) 0.7 (0-2) % Lymph # (Auto) 1.5 (1.2-4.9) X10*3/uL [place] # (Auto) 0.7 (0.1-1.2) X10*3/uL Eos # (Auto) 0.1 (0.0-0.4) X10*3/uL Baso # (Auto) 0.0 (0.0-0.2) X10*3/uL Abs Immat Gran (auto) 0.04 H (0.00-0.03) X10*3/uL Absolute Neuts (auto) 3.0 (2.0-8.3) x10*3/uL Absolute Nucleated RBC 0.000 (0.0-0.012) X10*3/uL Nucleated RBC % (auto) 0.0 (0.0-0.2) /100WBC Sodium 144 (135-145) mmol/L Potassium 4.4 (3.3-5.1) mmol/L Chloride 97 (96-108) mmol/L Carbon Dioxide 37 H (22-29) mmol/L Anion Gap 14 (12-20) BUN 16 (9-16) mg/dL Creatinine 0.89 (0.5-1.4) mg/dL Estim Creat Clear Calc 79.1 Estimated GFR > 60 Random Glucose 137 H (60-115) mg/dL Calcium 9.3 (8.4-10.2) mg/dL Total Bilirubin 0.4 (0.0-1.0) mg/dL AST 19 (5-37) U/L ALT 23 (0-40) U/L Alkaline Phosphatase 79 (39-117) U/L Troponin I High Sens 3.8 (<3.5-35.0) ng/L B-Natriuretic Peptide (<100) pg/mL Total Protein 6.1 L (6.5-8.0) g/dL Albumin 3.9 (3.5-5.0) g/dL 07/17/22 Range/Units 23:50 WBC (4.8-10.8) X10*3/uL RBC (4.60-5.80) X10*6/uL Hgb (14.0-18.0) g/dl Hct (42.0-52.0) % MCV (80.0-98.0) fL MCH (27.0-33.0) pg MCHC (31.0-36.0) g/dl RDW (11.0-16.0) % Plt Count (160-400) X10*3/uL MPV (9.4-12.4) fL Immature Gran % (Auto) (0.0-0.4) % Neut % (Auto) (45-73) % Lymph % (Auto) (20-40) % [place] % (Auto) (2-11) % Eos % (Auto) (0-4) % Baso % (Auto) (0-2) % Lymph # (Auto) (1.2-4.9) X10*3/uL [place] # (Auto) (0.1-1.2) X10*3/uL Eos # (Auto) (0.0-0.4) X10*3/uL Baso # (Auto) (0.0-0.2) X10*3/uL Abs Immat Gran (auto) (0.00-0.03) X10*3/uL Absolute Neuts (auto) (2.0-8.3) x10*3/uL Absolute Nucleated RBC (0.0-0.012) X10*3/uL Nucleated RBC % (auto) (0.0-0.2) /100WBC Sodium (135-145) mmol/L Potassium (3.3-5.1) mmol/L Chloride (96-108) mmol/L Carbon Dioxide (22-29) mmol/L Anion Gap (12-20) BUN (9-16) mg/dL Creatinine (0.5-1.4) mg/dL Estim Creat Clear Calc Estimated GFR Random Glucose (60-115) mg/dL Calcium (8.4-10.2) mg/dL Total Bilirubin (0.0-1.0) mg/dL AST (5-37) U/L ALT (0-40) U/L Alkaline Phosphatase (39-117) U/L Troponin I High Sens (<3.5-35.0) ng/L B-Natriuretic Peptide 12 (<100) pg/mL Total Protein (6.5-8.0) g/dL Albumin (3.5-5.0) g/dL Independent Interpretation I performed an independent interpretation of an: EKG Interpretation: Number sinus rhythm heart rate 85 beats per minute normal intervals normal axis nonspecific ST T wave changes no acute ischemia Discharge Plan Discharge Clinical Impression: COPD (chronic obstructive pulmonary disease) with chronic bronchitis, Leg edema Patient Disposition: Home, Self-Care Instructions: COPD (Chronic Obstructive Pulmonary Disease) (DC), Leg Edema (ED) Additional Instructions: Continue your medications, and oxygen Start taking hydrochlorothiazide 25 mg daily for increased leg swelling Prescriptions: New hydrochlorothiazide 25 mg tablet 25 mg PO QAM Qty: 30 0RF No Action multivitamin [Daily-Kathleen] Tablet 1 tab PO DAILY Qty: 90 3RF metformin 1,000 mg tablet 1,000 mg PO BID Qty: 180 4RF (DME) FreeStyle Lite Strips Strip See Rx Instructions .Route Qty: 100 5RF Rx Instructions: check fasting glucose BID ac (DME) blood-glucose meter [FreeStyle Lite Meter] Kit See Rx Instructions .Route Qty: 1 0RF Rx Instructions: As directed atorvastatin 80 mg tablet 80 mg PO BEDTIME Qty: 90 3RF metoprolol tartrate 25 mg tablet 25 mg PO BID Qty: 180 1RF lorazepam 0.5 mg tablet 0.5 mg PO DAILY PRN (Reason: anxiety) Qty: 30 0RF isosorbide mononitrate 30 mg tablet extended release 24 hr 30 mg PO DAILY budesonide-formoterol [Symbicort] 160-4.5 mcg/actuation Hfa Aerosol Inhaler 2 puff INHALATION DAILY omeprazole 20 mg capsule,delayed release(DR/EC) 20 mg PO DAILY@0630 glipizide 5 mg Tablet 10 mg PO DAILY glipizide 5 mg Tablet 5 mg PO DAILY@1700 escitalopram oxalate 20 mg tablet 10 mg PO DAILY prednisone 10 mg tablet 10 mg PO DAILY Qty: 60 0RF Rx Instructions: take prednisone(10mg X3) 30mg po daily x1 week ,than prednisone (10mgx2) 20mg po daily x 1week,than 10mg daily x 1week than resume 5mg po daily calcium carbonate-vitamin D3 600 mg-10 mcg (400 unit) tablet 1 tab PO DAILY aspirin 81 mg Tablet,Delayed Release (Dr/Ec) 81 mg PO DAILY albuterol sulfate 90 mcg/actuation HFA aerosol inhaler 2 puff PO Q4H PRN (Reason: Shortness Of Breath Or Wheezing) ipratropium-albuterol 0.5 mg-3 mg(2.5 mg base)/3 mL solution for nebulization 3 ml inhalation Q6H PRN (Reason: COPD) (DME) Oxygen Home Use Kit See Rx Instructions .Route Rx Instructions: As directed (DME) nebulizers Misc See Rx Instructions .Route Rx Instructions: As directed Interventions: ED Discharge Assessment Last Done: 07/18/22 02:35 Discharge Date/Time: 07/18/22 02:36
[2022-07-18 00:23] LABS: Alanine Aminotransferase 23 U/L (0-40); Albumin Level 3.9 g/dL (3.5-5.0); Alkaline Phosphatase 79 U/L (39-117); Anion Gap 14 (12-20); Aspartate Amino Transferase 19 U/L (5-37); Bilirubin Total 0.4 mg/dL (0.0-1.0); Blood Urea Nitrogen 16 mg/dL (9-16); Calcium 9.3 mg/dL (8.4-10.2); Carbon Dioxide 37 mmol/L (22-29); Chloride 97 mmol/L (96-108); Creatinine Clr Calc Pharmacy 79.1; Estimated Glomerular Filt Rate > 60; Glucose Random 137 mg/dL (60-115); Potassium 4.4 mmol/L (3.3-5.1); Sodium 144 mmol/L (135-145); Total Protein 6.1 g/dL (6.5-8.0)
[2022-07-18 00:27] LABS: Troponin-I High Sensitivity 3.8 ng/L (<3.5-35.0)
[2022-07-18 00:39] LABS: B Type Natriuretic Peptide 12 pg/mL (<100)
[2022-07-18 00:40] VITALS: PULSE 80; RESP 18; O2SAT 95
== END 2022-07-18 02:36 | disposition home or self-care (01) ==
PROVIDERS: Emergency Provider Internal Medicine; PCP Internal Medicine
DX: J42 Unspecified chronic bronchitis (principal); R06.02 Shortness of breath; R60.0 Localized edema; Z99.81 Dependence on supplemental oxygen; Z79.899 Other long term (current) drug therapy
CPT/HCPCS: 36415; 71045; 80053; 83880; 84484; 85025; 93005; 94640; 99284

== ENCOUNTER 2022-07-20 23:45 | Emergency (ER) | payer MEDICARE, SELFPAY ==
--- NOTE | ~2022-07-20 | XR_ITS ---
EXAMINATION: XR CHEST CLINICAL INFORMATION: Shortness of breath COMPARISON: Chest radiograph 07/18/2022 TECHNIQUE: Frontal view of the chest was obtained. FINDINGS: Heart size normal. Again noted is elevation of the left ricardo and apical scarring. No acute consolidations, pleural effusions or CHF. Degenerative changes are present in the spine. XR/XR chest 1V IMPRESSION: No acute intrathoracic disease. Chronic findings as described above.
[2022-07-20 23:54] VITALS: BP 113/70; BP 120/80; PULSE 102; RESP 20; TEMP 36.8; O2SAT 95; BMI 32.3
--- NOTE | 2022-07-21 | ECG_ITS ---
Test Reason : SOB Blood Pressure : / mmHG Vent. Rate : 091 BPM Atrial Rate : 091 BPM P-R Int : 154 ms QRS Dur : 086 ms QT Int : 354 ms P-R-T Axes : 029 086 067 degrees QTc Int : 435 ms Normal sinus rhythm Normal ECG When compared with ECG of 17-JUL-2022 23:32, No significant change was found Referred By: Generic ED Physician Electronically Signed By:SMITH TREVIÑO MD
--- NOTE | 2022-07-21 00:19 | ED.SOB ---
HPI - SOB/Dyspnea General Chief Complaint: Dyspnea Stated Complaint: Swollen Feet, SOB Time Seen by Provider: 07/21/22 00:14 Source: patient Mode of arrival: EMS Limitations: no limitations History of Present Illness HPI Narrative: ?Patient is 72 years old with history of severe COPD on 2 L of oxygen 24 hours and prednisone with history of lung cancer status post chemo and radiation with fibrosis with chronic hypercarbic respiratory failure comes in for increased shortness of breath with leg swelling and pain for last few days patient was seen here on 07/18 with same complaints and started on hydrochlorothiazide says that swelling isn't getting better although clinically swelling has decreased in size patient diabetic with peripheral neuropathy feels increased pain at nighttime when he sleeps. Related Data Home Medications Medication Instructions Recorded Confirmed albuterol sulfate 90 mcg/actuation 2 puff PO Q4H PRN Shortness Of 01/14/20 06/25/22 aerosol inhaler Breath Or Wheezing ipratropium 0.5 mg-albuterol 3 mg 3 ml inhalation Q6H PRN COPD 01/14/20 06/25/22 (2.5 mg base)/3 mL nebulization soln budesonide-formoterol HFA 160 2 puff inhalation DAILY 03/14/21 06/25/22 mcg-4.5 mcg/actuation aerosol inhaler (Symbicort) isosorbide mononitrate 30 mg 30 mg PO DAILY 03/14/21 06/25/22 tablet,extended release 24 hr aspirin 81 mg tablet,delayed 81 mg PO DAILY 08/04/21 06/25/22 release calcium carbonate 600 mg-vitamin 1 tab PO DAILY 08/04/21 06/25/22 D3 10 mcg (400 unit) tablet omeprazole 20 mg capsule,delayed 20 mg PO DAILY@0630 11/28/21 06/25/22 release escitalopram oxalate 20 mg tablet 10 mg PO DAILY 06/07/22 06/25/22 glipizide 5 mg tablet 5 mg PO DAILY@1700 06/07/22 06/25/22 glipizide 5 mg tablet 10 mg PO DAILY 06/07/22 06/25/22 Oxygen Home Use 06/14/22 06/25/22 nebulizers 06/14/22 06/25/22 Previous Rx's Medication Instructions Recorded multivitamin (Daily-Kathleen tablet) 1 tab PO DAILY #90 tabs 05/13/20 metformin 1,000 mg tablet 1,000 mg PO BID #180 tabs 11/07/21 blood sugar diagnostic (FreeStyle #100 ea 01/23/22 Lite Strips) blood-glucose meter (FreeStyle #1 ea 01/23/22 Lite Meter kit) atorvastatin 80 mg tablet 80 mg PO BEDTIME #90 tabs 02/05/22 metoprolol tartrate 25 mg tablet 25 mg PO BID #180 tabs 05/02/22 prednisone 10 mg tablet 10 mg PO DAILY #60 tabs 06/10/22 lorazepam 0.5 mg tablet 0.5 mg PO DAILY PRN anxiety #30 07/11/22 tabs hydrochlorothiazide 25 mg tablet 25 mg PO QAM #30 tabs 07/18/22 gabapentin 100 mg capsule 100 mg PO TID #30 caps 07/21/22 Allergies Allergy/AdvReac Type Severity Reaction Status Date / Time fluticasone furoate Allergy Intermediate rash Verified 06/30/22 04:11 [From Trelegy Ellipta] vilanterol Allergy Intermediate rash Verified 06/30/22 04:11 [From Trelegy Ellipta] umeclidinium Allergy Unknown hives Verified 06/30/22 04:11 [Incruse Ellipta] lasix AdvReac Intermediate Hallucinati Uncoded 06/30/22 04:11 ons Review of Systems Review of Systems: Yes all other systems are reviewed and are negative [facility] Past Medical History Medical History Acute on chronic respiratory failure with hypoxia and hypercapnia Anemia Asthma Bacteremia due to Enterococcus Chronic lung disease Chronic lung disease Chronic respiratory failure Chronic respiratory failure with hypoxia and hypercapnia COPD exacerbation COPD, severe Diabetes mellitus with hyperglycemia, without long-term current use of insulin Dyslipidemia Generalized anxiety disorder History of pneumonia HTN (hypertension) Hyperlipemia Lung cancer Radiation fibrosis of lung Skin cancer Urinary incontinence Surgical History History of esophagogastroduodenoscopy (EGD) Hx of colonoscopy Hx of heart artery stent Family History Family History Father Medical history non-contributory Mother Medical history non-contributory Unknown family medical history Lung collapse Brother No problems noted. Brother No problems noted. Son Substance use disorder Son No problems noted. Daughter No problems noted. Sister No problems noted. Sister No problems noted. Sister No problems noted. Sister No problems noted. Other HTN (hypertension) Social History Social History Household Members: Spouse Household Members Other:: grandson Housing: House Are you a primary day care teacher to a significant other at home: No Do you presently have visiting nurse or other home services: No Alcohol intake: former Patient Tobacco Use Status: Former Tobacco user e-Cigarette/Vaping Use: Never Used Advance Directives: Yes Advance Directives on File: Yes Advance Directives Date on File: 06/08/22 service: No Current occupational status: retired Cognitive needs: No Hearing needs: No Vision needs: No Physical Exam Vital Signs: Vital Signs: Last Vital Signs Temp 98.1 F 07/21/22 03:49 Pulse 86 07/21/22 05:18 Resp 20 07/21/22 03:49 BP 120/63 07/21/22 03:49 Pulse Ox 96 07/21/22 05:18 O2 Del Method Nasal Cannula 07/21/22 05:18 O2 Flow Rate 2 07/21/22 05:18 Oxygen Flow Rate 4 07/20/22 23:54 BMI result Body Mass Index 32.3 Appearance: Alert. Oriented X3. No acute distress. Eyes: PERRLA, No Nystagmus ENT: Pharynx normal. Oral Mucosa moist Neck: Normal inspection. Neck supple. CVS: Normal heart rate and rhythm. Pulses normal. Respiratory: No respiratory distress. Equal air entry bilateral, no wheezing/rales/rhonchi prolonged expiration Abdomen: Soft and nontender. Bowel sounds are present, no mass palpable, no CVA tenderness Skin: Skin warm and dry. Normal skin color. Normal skin turgor. Extremities:2+ lower extremity edema. No calf tenderness Neuro: Oriented X 3. No motor deficit. No sensory deficit.No cerebellar signs , cranial nerves II-XII intact Medications Administered Discontinued Medications Generic Name Dose Route Start Last Admin Trade Name Freq PRN Reason Stop Dose Admin Albuterol Sulfate 2.5 mg/ 0 mg 07/21/22 01:54 07/21/22 02:05 Albuterol/Ipratropium 3 ml INHALE 07/21/22 01:55 1 each ONCE ONE Administration Gabapentin 200 mg 07/21/22 01:53 07/21/22 02:21 Gabapentin 100 Mg Capsule PO 07/21/22 01:54 200 mg ONCE ONE Administration Medical Decision Making Lab Data 07/21/22 00:13 07/21/22 00:13 Labs: Lab Results 07/21/22 07/21/22 07/21/22 Range/Units 00:13 00:13 00:13 WBC 5.7 (4.8-10.8) X10*3/uL RBC 4.42 L (4.60-5.80) X10*6/uL Hgb 13.0 L (14.0-18.0) g/dl Hct 40.4 L (42.0-52.0) % MCV 91.4 (80.0-98.0) fL MCH 29.4 (27.0-33.0) pg MCHC 32.2 (31.0-36.0) g/dl RDW 13.4 (11.0-16.0) % Plt Count 173 (160-400) X10*3/uL MPV 10.3 (9.4-12.4) fL Immature Gran % (Auto) 0.5 H (0.0-0.4) % Neut % (Auto) 67.4 (45-73) % Lymph % (Auto) 17.3 L (20-40) % Horry % (Auto) 11.8 H (2-11) % Eos % (Auto) 2.1 (0-4) % Baso % (Auto) 0.9 (0-2) % Lymph # (Auto) 1.0 L (1.2-4.9) X10*3/uL H[place] # (Auto) 0.7 (0.1-1.2) X10*3/uL Eos # (Auto) 0.1 (0.0-0.4) X10*3/uL Baso # (Auto) 0.1 (0.0-0.2) X10*3/uL Abs Immat Gran (auto) 0.03 (0.00-0.03) X10*3/uL Absolute Neuts (auto) 3.8 (2.0-8.3) x10*3/uL Absolute Nucleated RBC 0.000 (0.0-0.012) X10*3/uL Nucleated RBC % (auto) 0.0 (0.0-0.2) /100WBC Sodium 137 (135-145) mmol/L Potassium 4.1 (3.3-5.1) mmol/L Chloride 89 L (96-108) mmol/L Carbon Dioxide 34 H (22-29) mmol/L Anion Gap 18 (12-20) BUN 18 H (9-16) mg/dL Creatinine 1.23 (0.5-1.4) mg/dL Estim Creat Clear Calc 57.2 Estimated GFR 58 Random Glucose 263 H (60-115) mg/dL Lactic Acid 4.8 H* (0.5-2.0) mmol/L Lactic Acid F/U @ 2Hr (0.5-2.0) mmol/L Calcium 9.8 (8.4-10.2) mg/dL 07/21/22 Range/Units 02:37 WBC (4.8-10.8) X10*3/uL RBC (4.60-5.80) X10*6/uL Hgb (14.0-18.0) g/dl Hct (42.0-52.0) % MCV (80.0-98.0) fL MCH (27.0-33.0) pg MCHC (31.0-36.0) g/dl RDW (11.0-16.0) % Plt Count (160-400) X10*3/uL MPV (9.4-12.4) fL Immature Gran % (Auto) (0.0-0.4) % Neut % (Auto) (45-73) % Lymph % (Auto) (20-40) % H[place] % (Auto) (2-11) % Eos % (Auto) (0-4) % Baso % (Auto) (0-2) % Lymph # (Auto) (1.2-4.9) X10*3/uL [place] # (Auto) (0.1-1.2) X10*3/uL Eos # (Auto) (0.0-0.4) X10*3/uL Baso # (Auto) (0.0-0.2) X10*3/uL Abs Immat Gran (auto) (0.00-0.03) X10*3/uL Absolute Neuts (auto) (2.0-8.3) x10*3/uL Absolute Nucleated RBC (0.0-0.012) X10*3/uL Nucleated RBC % (auto) (0.0-0.2) /100WBC Sodium (135-145) mmol/L Potassium (3.3-5.1) mmol/L Chloride (96-108) mmol/L Carbon Dioxide (22-29) mmol/L Anion Gap (12-20) BUN (9-16) mg/dL Creatinine (0.5-1.4) mg/dL Estim Creat Clear Calc Estimated GFR Random Glucose (60-115) mg/dL Lactic Acid (0.5-2.0) mmol/L Lactic Acid F/U @ 2Hr 3.5 H* (0.5-2.0) mmol/L Calcium (8.4-10.2) mg/dL Discharge Plan Discharge Clinical Impression: Diabetic neuropathy, painful Patient Disposition: Home, Self-Care Instructions: Diabetic Peripheral Neuropathy (ED) Additional Instructions: Continue water pill and other medication as prescribed Gabapentin for leg pain as prescribed Follow-up with your PCP Prescriptions: New gabapentin 100 mg capsule 100 mg PO TID Qty: 30 0RF No Action multivitamin [Daily-Kathleen] Tablet 1 tab PO DAILY Qty: 90 3RF metformin 1,000 mg tablet 1,000 mg PO BID Qty: 180 4RF (DME) FreeStyle Lite Strips Strip See Rx Instructions .Route Qty: 100 5RF Rx Instructions: check fasting glucose BID ac (DME) blood-glucose meter [FreeStyle Lite Meter] Kit See Rx Instructions .Route Qty: 1 0RF Rx Instructions: As directed atorvastatin 80 mg tablet 80 mg PO BEDTIME Qty: 90 3RF metoprolol tartrate 25 mg tablet 25 mg PO BID Qty: 180 1RF lorazepam 0.5 mg tablet 0.5 mg PO DAILY PRN (Reason: anxiety) Qty: 30 0RF isosorbide mononitrate 30 mg tablet extended release 24 hr 30 mg PO DAILY budesonide-formoterol [Symbicort] 160-4.5 mcg/actuation Hfa Aerosol Inhaler 2 puff INHALATION DAILY omeprazole 20 mg capsule,delayed release(DR/EC) 20 mg PO DAILY@0630 glipizide 5 mg Tablet 10 mg PO DAILY glipizide 5 mg Tablet 5 mg PO DAILY@1700 escitalopram oxalate 20 mg tablet 10 mg PO DAILY prednisone 10 mg tablet 10 mg PO DAILY Qty: 60 0RF Rx Instructions: take prednisone(10mg X3) 30mg po daily x1 week ,than prednisone (10mgx2) 20mg po daily x 1week,than 10mg daily x 1week than resume 5mg po daily calcium carbonate-vitamin D3 600 mg-10 mcg (400 unit) tablet 1 tab PO DAILY aspirin 81 mg Tablet,Delayed Release (Dr/Ec) 81 mg PO DAILY hydrochlorothiazide 25 mg tablet 25 mg PO QAM Qty: 30 0RF albuterol sulfate 90 mcg/actuation HFA aerosol inhaler 2 puff PO Q4H PRN (Reason: Shortness Of Breath Or Wheezing) ipratropium-albuterol 0.5 mg-3 mg(2.5 mg base)/3 mL solution for nebulization 3 ml inhalation Q6H PRN (Reason: COPD) (DME) Oxygen Home Use Kit See Rx Instructions .Route Rx Instructions: As directed (DME) nebulizers [facility] See Rx Instructions .Route Rx Instructions: As directed Interventions: ED Discharge Assessment Last Done: 07/21/22 06:05 Discharge Date/Time: 07/21/22 06:05
[2022-07-21 00:27] LABS: MANUAL DIFF FLAG NO
[2022-07-21 00:31] LABS: Basophils Absolute Auto 0.1 X10*3/uL (0.0-0.2); Basophils Percent Auto 0.9 % (0-2); Eosinophils Absolute Auto 0.1 X10*3/uL (0.0-0.4); Eosinophils Percent Auto 2.1 % (0-4); Hematocrit 40.4 % (42.0-52.0); Imm Gran Abs Auto 0.03 X10*3/uL (0.00-0.03); Imm Gran Pct Auto 0.5 % (0.0-0.4); Lymphocytes Percent Auto 17.3 % (20-40); Mean Corpuscular HGB Conc 32.2 g/dl (31.0-36.0); Mean Corpuscular Hemoglobin 29.4 pg (27.0-33.0); Mean Corpuscular Volume 91.4 fL (80.0-98.0); Mean Platelet Volume 10.3 fL (9.4-12.4); Monocytes Absolute Auto 0.7 X10*3/uL (0.1-1.2); Monocytes Percent Auto 11.8 % (2-11); Neutrophils Absolute Auto 3.8 x10*3/uL (2.0-8.3); Neutrophils Percent Auto 67.4 % (45-73); Platelet Count 173 X10*3/uL (160-400); Red Blood Count 4.42 X10*6/uL (4.60-5.80); Red Cell Distribution Width 13.4 % (11.0-16.0); White Blood Count 5.7 X10*3/uL (4.8-10.8)
[2022-07-21 00:43] LABS: Anion Gap 18 (12-20); Blood Urea Nitrogen 18 mg/dL (9-16); Calcium 9.8 mg/dL (8.4-10.2); Carbon Dioxide 34 mmol/L (22-29); Chloride 89 mmol/L (96-108); Creatinine Clr Calc Pharmacy 57.2; Estimated Glomerular Filt Rate 58; Glucose Random 263 mg/dL (60-115); Lactic Acid 4.8 mmol/L (0.5-2.0); Potassium 4.1 mmol/L (3.3-5.1); Sodium 137 mmol/L (135-145)
[2022-07-21 02:08] VITALS: PULSE 89; RESP 14; O2SAT 96
[2022-07-21] MEDS: Gabapentin 100 MG CAPSULE 200 MG PO (02:21)
[2022-07-21 02:26] LABS: Reflex Lactate? Lactic Acid Added
[2022-07-21 02:53] LABS: ~Lactic Acid-LAB USE ONLY 3.5 mmol/L (0.5-2.0)
[2022-07-21 03:49] VITALS: BP 120/63; PULSE 94; RESP 20; TEMP 36.7; O2SAT 93
[2022-07-21 04:40] LABS: Reflex Lactate? 2 Y
[2022-07-21 05:18] VITALS: PULSE 86; O2SAT 96
== END 2022-07-21 06:05 | disposition home or self-care (01) ==
PROVIDERS: Emergency Provider Internal Medicine; PCP Internal Medicine
DX: E11.42 Type 2 diabetes mellitus with diabetic polyneuropathy (principal); R60.0 Localized edema; M79.606 Pain in leg, unspecified; J44.9 Chronic obstructive pulmonary disease, unspecified; E78.5 Hyperlipidemia, unspecified; J96.12 Chronic respiratory failure with hypercapnia; Z99.81 Dependence on supplemental oxygen; Z85.118 Personal history of other malignant neoplasm of bronchus and lung; Z87.891 Personal history of nicotine dependence; Z79.82 Long term (current) use of aspirin; Z79.899 Other long term (current) drug therapy; Z79.02 Long term (current) use of antithrombotics/antiplatelets; Z79.84 Long term (current) use of oral hypoglycemic drugs
CPT/HCPCS: 36415; 71045; 80048; 83605; 85025; 87040; 93005; 94640; 99284; 99285

== ENCOUNTER 2022-07-26 20:25 | Emergency (ER) | payer MEDICARE, SELFPAY ==
--- NOTE | ~2022-07-26 | XR_ITS ---
EXAMINATION: XR ABDOMEN KUB CLINICAL INDICATION: Constipation COMPARISON: 01/05/2020 TECHNIQUE: AP view of the abdomen. FINDINGS: Large amount of stool is present throughout the colon. No specific evidence for bowel obstruction. No suspicious calcifications are seen. Degenerative changes are present in the spine. XR/XR KUB IMPRESSION: Large volume of stool.
[2022-07-26 20:44] VITALS: BP 137/84; PULSE 94; RESP 18; TEMP 36.9; O2SAT 91; BMI 32.3
[2022-07-26 21:25] LABS: Hematocrit 40.5 % (42.0-52.0); Mean Corpuscular HGB Conc 32.1 g/dl (31.0-36.0); Mean Corpuscular Hemoglobin 29.7 pg (27.0-33.0); Mean Corpuscular Volume 92.5 fL (80.0-98.0); Mean Platelet Volume 10.3 fL (9.4-12.4); Platelet Count 194 X10*3/uL (160-400); Red Blood Count 4.38 X10*6/uL (4.60-5.80); Red Cell Distribution Width 13.1 % (11.0-16.0); White Blood Count 5.8 X10*3/uL (4.8-10.8)
[2022-07-26 21:31] VITALS: BP 113/63; PULSE 86; RESP 17; TEMP 36.8; O2SAT 97
[2022-07-26 21:35] LABS: Alanine Aminotransferase 27 U/L (0-40); Albumin Level 4.3 g/dL (3.5-5.0); Alkaline Phosphatase 98 U/L (39-117); Anion Gap 12 (12-20); Aspartate Amino Transferase 25 U/L (5-37); Bilirubin Total 0.5 mg/dL (0.0-1.0); Blood Urea Nitrogen 14 mg/dL (9-16); Calcium 9.6 mg/dL (8.4-10.2); Chloride 90 mmol/L (96-108); Creatinine Clr Calc Pharmacy 64.6; Estimated Glomerular Filt Rate > 60; Glucose Random 180 mg/dL (60-115); Lipase 31 U/L (8-78); Potassium 4.2 mmol/L (3.3-5.1); Sodium 137 mmol/L (135-145); Total Protein 6.8 g/dL (6.5-8.0)
[2022-07-26 21:36] LABS: Carbon Dioxide 39 mmol/L (22-29)
[2022-07-26 22:32] LABS: Appearance Urine Clear; Color Urine Yellow; Glucose Urine UA Negative (Negative); Leukocyte Esterase Urine Negative (Negative); Nitrite Urine Negative (Negative); PH 5.5 (5.0-9.0); Urine Blood Negative (Negative); Urine Ketones Negative (Negative); Urine Protein Negative (Neg-Trace)
--- NOTE | 2022-07-26 22:35 | ED_ITS ---
HPI - Abdominal Pain General Chief Complaint: Abdominal Pain Stated Complaint: constipated,sob Time Seen by Provider: 07/26/22 22:26 Source: patient Mode of arrival: ambulatory Limitations: no limitations History of Present Illness HPI narrative: Patient has COPD chronic lung disease chronic constipation comes here for constipation for last 2 weeks unable to have good bowel movement passing only small amount of stool feel bloated also complaining of lower extremity edema which he was seen before and was given hydrochlorothiazide no nausea no vomiting no fever or chills Related Data Home Medications Medication Instructions Recorded Confirmed albuterol sulfate 90 mcg/actuation 2 puff PO Q4H PRN Shortness Of 01/14/20 06/25/22 aerosol inhaler Breath Or Wheezing ipratropium 0.5 mg-albuterol 3 mg 3 ml inhalation Q6H PRN COPD 01/14/20 06/25/22 (2.5 mg base)/3 mL nebulization soln budesonide-formoterol HFA 160 2 puff inhalation DAILY 03/14/21 06/25/22 mcg-4.5 mcg/actuation aerosol inhaler (Symbicort) isosorbide mononitrate 30 mg 30 mg PO DAILY 03/14/21 06/25/22 tablet,extended release 24 hr aspirin 81 mg tablet,delayed 81 mg PO DAILY 08/04/21 06/25/22 release calcium carbonate 600 mg-vitamin 1 tab PO DAILY 08/04/21 06/25/22 D3 10 mcg (400 unit) tablet omeprazole 20 mg capsule,delayed 20 mg PO DAILY@0630 11/28/21 06/25/22 release escitalopram oxalate 20 mg tablet 10 mg PO DAILY 06/07/22 06/25/22 glipizide 5 mg tablet 5 mg PO DAILY@1700 06/07/22 06/25/22 Oxygen Home Use 06/14/22 06/25/22 nebulizers 06/14/22 06/25/22 Previous Rx's Medication Instructions Recorded multivitamin (Daily-Kathleen tablet) 1 tab PO DAILY #90 tabs 05/13/20 metformin 1,000 mg tablet 1,000 mg PO BID #180 tabs 11/07/21 blood sugar diagnostic (FreeStyle #100 ea 01/23/22 Lite Strips) blood-glucose meter (FreeStyle #1 ea 01/23/22 Lite Meter kit) atorvastatin 80 mg tablet 80 mg PO BEDTIME #90 tabs 02/05/22 metoprolol tartrate 25 mg tablet 25 mg PO BID #180 tabs 05/02/22 prednisone 10 mg tablet 10 mg PO DAILY #60 tabs 06/10/22 lorazepam 0.5 mg tablet 0.5 mg PO DAILY PRN anxiety #30 07/11/22 tabs hydrochlorothiazide 25 mg tablet 25 mg PO QAM #30 tabs 07/18/22 gabapentin 100 mg capsule 100 mg PO TID #30 caps 07/21/22 glipizide 5 mg tablet 5 mg PO .COMPLEX #270 tabs 07/26/22 polyethylene glycol 3350 17 17 g PO DAILY #510 grams 07/27/22 gram/dose oral powder (Miralax) Allergies Allergy/AdvReac Type Severity Reaction Status Date / Time fluticasone furoate Allergy Intermediate rash Verified 06/30/22 04:11 [From Trelegy Ellipta] vilanterol Allergy Intermediate rash Verified 06/30/22 04:11 [From Trelegy Ellipta] umeclidinium Allergy Unknown hives Verified 06/30/22 04:11 [Incruse Ellipta] lasix AdvReac Intermediate Hallucinati Uncoded 06/30/22 04:11 ons Review of Systems Review of Systems Yes all other systems are reviewed and are negative PMFSH Past Medical History Medical History Acute on chronic respiratory failure with hypoxia and hypercapnia Anemia Asthma Bacteremia due to Enterococcus Chronic lung disease Chronic lung disease Chronic respiratory failure Chronic respiratory failure with hypoxia and hypercapnia COPD exacerbation COPD, severe Diabetes mellitus with hyperglycemia, without long-term current use of insulin Dyslipidemia Generalized anxiety disorder History of pneumonia HTN (hypertension) Hyperlipemia Lung cancer Radiation fibrosis of lung Skin cancer Urinary incontinence Surgical History History of esophagogastroduodenoscopy (EGD) Hx of colonoscopy Hx of heart artery stent Family History Family History Father Medical history non-contributory Mother Medical history non-contributory Unknown family medical history Lung collapse Brother No problems noted. Brother No problems noted. Son Substance use disorder Son No problems noted. Daughter No problems noted. Sister No problems noted. Sister No problems noted. Sister No problems noted. Sister No problems noted. Other HTN (hypertension) Social History Social History Household Members: Spouse Household Members Other:: grandson Housing: House Are you a primary home care manager to a significant other at home: No Do you presently have visiting nurse or other home services: No Alcohol intake: never Patient Tobacco Use Status: Former Tobacco user Smoked in Last 30 Days: No e-Cigarette/Vaping Use: Never Used Use of substances other than those prescribed or required for medical reasons: No Advance Directives: Yes Advance Directives on File: Yes Advance Directives Date on File: 06/08/22 service: No Current occupational status: retired Cognitive needs: No Hearing needs: No Vision needs: No Physical Exam ED Vital Signs: Vital Signs - 24 hr 07/26/22 20:44 07/26/22 21:31 07/27/22 00:37 Temperature 98.4 F 98.2 F 98.5 F Pulse Rate 94 86 80 Respiratory Rate 18 17 18 Blood Pressure 137/84 113/63 124/70 Pulse Oximetry 91 L 97 97 Oxygen Delivery Method Nasal Cannula Nasal Cannula Nasal Cannula Oxygen Flow Rate 3 3 BMI result Body Mass Index 32.3 Appearance: Alert. Oriented X3. No acute distress. ENT: Pharynx normal. Oral Mucosa moist Neck: Normal inspection. Neck supple. CVS: Normal heart rate and rhythm. Pulses normal. Respiratory: No respiratory distress. Equal air entry bilateral, no wheezing/rales/rhonchi Abdomen: Gaseous distended nontender Bowel sounds are present, no mass palpable, no CVA tenderness rectal; empty rectal no stool palpable Skin: Skin warm and dry. Normal skin color. Normal skin turgor. Extremities: No lower extremity edema. No calf tenderness Neuro: Oriented X 3. No motor deficit. Medical Decision Making Medical Decision Making [facility] Narrative: Patient received multiple doses of MiraLax soap addendum was given ultimately patient started moving his bowels had large amount of bowel movement in the ER will discharge patient home patient feeling much better at this time Lab Data [facility] Lab Attestation statement: I reviewed the patient's lab results. 07/26/22 21:12 07/26/22 21:12 Labs: Lab Results 07/26/22 07/26/22 07/26/22 Range/Units 21:12 21:12 22:15 WBC 5.8 (4.8-10.8) X10*3/uL RBC 4.38 L (4.60-5.80) X10*6/uL Hgb 13.0 L (14.0-18.0) g/dl Hct 40.5 L (42.0-52.0) % MCV 92.5 (80.0-98.0) fL MCH 29.7 (27.0-33.0) pg MCHC 32.1 (31.0-36.0) g/dl RDW 13.1 (11.0-16.0) % Plt Count 194 (160-400) X10*3/uL MPV 10.3 (9.4-12.4) fL Absolute Nucleated RBC 0.000 (0.0-0.012) X10*3/uL Nucleated RBC % (auto) 0.0 (0.0-0.2) /100WBC Sodium 137 (135-145) mmol/L Potassium 4.2 (3.3-5.1) mmol/L Chloride 90 L (96-108) mmol/L Carbon Dioxide 39 H (22-29) mmol/L Anion Gap 12 (12-20) BUN 14 (9-16) mg/dL Creatinine 1.09 (0.5-1.4) mg/dL Estim Creat Clear Calc 64.6 Estimated GFR > 60 Random Glucose 180 H (60-115) mg/dL Calcium 9.6 (8.4-10.2) mg/dL Total Bilirubin 0.5 (0.0-1.0) mg/dL AST 25 (5-37) U/L ALT 27 (0-40) U/L Alkaline Phosphatase 98 (39-117) U/L Total Protein 6.8 (6.5-8.0) g/dL Albumin 4.3 (3.5-5.0) g/dL Lipase 31 (8-78) U/L Urine Color Yellow Urine Appearance Clear Urine pH 5.5 (5.0-9.0) Ur Specific Coulter 1.020 (1.005-1.025) Urine Protein Negative (Neg-Trace) mg/dL Urine Glucose (UA) Negative (Negative) mg/dL Urine Ketones Negative (Negative) mg/dL Urine Blood Negative (Negative) Urine Nitrite Negative (Negative) Ur Leukocyte Esterase Negative (Negative) Urine RBC 0-2 (0-2) /HPF Urine WBC 0-5 (0-5) /HPF Ur Squamous Epith Cells 0-2 (0-2) /HPF Urine Bacteria None Seen (None Seen) Hyaline Casts 0-2 (0-2) /LPF Medications Administered Discontinued Medications Generic Name Dose Route Start Last Admin Trade Name Freolga PRN Reason Stop Dose Admin Bisacodyl 10 mg 07/26/22 23:02 07/26/22 23:45 Bisacodyl 5 Mg Tablet.Dr PO 07/26/22 23:03 10 mg ONCE ONE Administration Magnesium Hydroxide 30 ml 07/26/22 23:02 07/26/22 23:45 Milk Of Magnesia 30 Ml Oral.Susp PO 07/26/22 23:03 30 ml ONCE ONE Administration Polyethylene Glycol 17 gm 07/26/22 23:52 07/27/22 00:04 Polyethylene Glycol 3350 17 Gm Powd.Pack PO 07/26/22 23:53 17 gm ONCE ONE Administration Polyethylene Glycol 17 gm 07/27/22 01:28 07/27/22 01:37 Polyethylene Glycol 3350 17 Gm Powd.Pack PO 07/27/22 01:29 17 gm ONCE ONE Administration Discharge Plan Discharge Clinical Impression: Constipation Patient Disposition: Home, Self-Care Instructions: Constipation (ED) Additional Instructions: Take MiraLax daily for constipation along with Dulcolax Follow with PCP Prescriptions: New polyethylene glycol 3350 [Miralax] 17 gram/dose powder 17 g PO DAILY Qty: 510 0RF No Action multivitamin [Daily-Kathleen] Tablet 1 tab PO DAILY Qty: 90 3RF metformin 1,000 mg tablet 1,000 mg PO BID Qty: 180 4RF (DME) FreeStyle Lite Strips Strip See Rx Instructions .Route Qty: 100 5RF Rx Instructions: check fasting glucose BID ac (DME) blood-glucose meter [FreeStyle Lite Meter] Kit See Rx Instructions .Route Qty: 1 0RF Rx Instructions: As directed atorvastatin 80 mg tablet 80 mg PO BEDTIME Qty: 90 3RF metoprolol tartrate 25 mg tablet 25 mg PO BID Qty: 180 1RF lorazepam 0.5 mg tablet 0.5 mg PO DAILY PRN (Reason: anxiety) Qty: 30 0RF glipizide 5 mg tablet 5 mg PO .COMPLEX Qty: 270 3RF Rx Instructions: 5 mg orally Take 2 tablets(10 mg) by mouth in the morning with breakfast, and 1 tablet in the evening with supper; isosorbide mononitrate 30 mg tablet extended release 24 hr 30 mg PO DAILY budesonide-formoterol [Symbicort] 160-4.5 mcg/actuation Hfa Aerosol Inhaler 2 puff INHALATION DAILY omeprazole 20 mg capsule,delayed release(DR/EC) 20 mg PO DAILY@0630 glipizide 5 mg Tablet 5 mg PO DAILY@1700 escitalopram oxalate 20 mg tablet 10 mg PO DAILY prednisone 10 mg tablet 10 mg PO DAILY Qty: 60 0RF Rx Instructions: take prednisone(10mg X3) 30mg po daily x1 week ,than prednisone (10mgx2) 20mg po daily x 1week,than 10mg daily x 1week than resume 5mg po daily calcium carbonate-vitamin D3 600 mg-10 mcg (400 unit) tablet 1 tab PO DAILY aspirin 81 mg Tablet,Delayed Release (Dr/Ec) 81 mg PO DAILY hydrochlorothiazide 25 mg tablet 25 mg PO QAM Qty: 30 0RF gabapentin 100 mg capsule 100 mg PO TID Qty: 30 0RF albuterol sulfate 90 mcg/actuation HFA aerosol inhaler 2 puff PO Q4H PRN (Reason: Shortness Of Breath Or Wheezing) ipratropium-albuterol 0.5 mg-3 mg(2.5 mg base)/3 mL solution for nebulization 3 ml inhalation Q6H PRN (Reason: COPD) (DME) Oxygen Home Use Kit See Rx Instructions .Route Rx Instructions: As directed (DME) nebulizers [facility] See Rx Instructions .Route Rx Instructions: As directed Interventions: ED Discharge Assessment Last Done: 07/27/22 04:07 Discharge Date/Time: 07/27/22 04:33
[2022-07-26 22:52] LABS: Bacteria Urine None Seen (None Seen); Hyaline Casts Urine 0-2 /LPF (0-2); RBC Urine 0-2 /HPF (0-2); Squamous Epithelial Cell Urine 0-2 /HPF (0-2); WBC Urine 0-5 /HPF (0-5)
[2022-07-26] MEDS: bisacodyL 5 MG TABLET.DR 10 MG PO (23:45)
[2022-07-26] MEDS: Milk of Magnesia 30 ML ORAL.SUSP PO (23:45)
[2022-07-27] MEDS: polyethylene glycoL 3350 17 GM POWD.PACK PO ×2 (00:04→01:37)
[2022-07-27 00:37] VITALS: BP 124/70; PULSE 80; RESP 18; TEMP 36.9; O2SAT 97
== END 2022-07-27 04:33 | disposition home or self-care (01) ==
PROVIDERS: Emergency Provider Internal Medicine; PCP Internal Medicine
DX: K59.09 Other constipation (principal); R60.0 Localized edema; E11.9 Type 2 diabetes mellitus without complications; I10 Essential (primary) hypertension; E78.5 Hyperlipidemia, unspecified; Z85.118 Personal history of other malignant neoplasm of bronchus and lung; Z79.82 Long term (current) use of aspirin; Z79.84 Long term (current) use of oral hypoglycemic drugs; Z79.02 Long term (current) use of antithrombotics/antiplatelets
CPT/HCPCS: 36415; 74018; 80053; 81001; 83690; 85027; 99284

== ENCOUNTER 2022-07-29 21:14 | Inpatient (IN) | payer MEDICARE, SELFPAY ==
--- NOTE | ~2022-07-29 | XR_ITS ---
EXAMINATION: XR CHEST CLINICAL INFORMATION: Shortness of breath COMPARISON: Previous chest x-ray most recent 07/21/2022 TECHNIQUE: Frontal view of the chest was obtained. FINDINGS: The cardiac and mediastinal contours are stable. There is volume loss to the left upper lobe and left apical pleural thickening that is unchanged. The lungs are otherwise clear. No pleural effusion. There are degenerative changes of the spine. XR/XR chest 1V IMPRESSION: No evidence for acute disease in the chest.
--- NOTE | ~2022-07-29 | CT_ITS ---
EXAMINATION: CT CHEST WITHOUT CONTRAST CLINICAL INFORMATION: Hypoxia COMPARISON: Previous chest x-ray most recent from yesterday and chest CTA July 2021 TECHNIQUE: Multidetector volumetric CT imaging of the chest was done. Axial MIP volume rendering provided. Sagittal and coronal reformatted images were obtained. This CT examination was performed using dose optimization techniques as appropriate, variously including the following: *Automated exposure control *Adjustment of mA and/or kV according to patient size (this includes techniques or standardized protocols for targeted exams where dose is matched to indication/reason for exam; i.e. extremities or head) *Use of iterative reconstruction technique DLP: 209 mGy-cm FINDINGS: LUNGS: Chronic partial left upper lobe atelectasis/consolidation with air bronchograms. This appears unchanged from previous chest CT scans. There were small pulmonary nodules that are stable. Largest pulmonary nodules are a 4 mm left lower lobe nodule axial image 301 series 7 and 3 mm peripheral or subpleural right lower lobe nodule axial image 209 series 7. No new pulmonary nodule. The lungs are otherwise clear. MEDIASTINUM: Normal heart size. Trace pericardial effusion or thickening. Coronary artery and aortic valve calcification. No enlarged mediastinal lymph nodes. Evaluation for hilar adenopathy is limited without IV contrast. Normal caliber thoracic aorta. Normal thyroid gland. CORONARY ARTERY CALCIFICATION: Severe PLEURA: There is no pleural effusion. No pleural mass or thickening. AXILLA: No lymphadenopathy. UPPER ABDOMEN: Constipation. Right renal stone. OSSEOUS STRUCTURES: Degenerative changes of the spine. Slight loss of height of the superior endplate of the T12 vertebral body questionable for mild old compression fracture. CT/CT chest wo IV con IMPRESSION: Stable chest CT. Partial left upper lobe atelectasis and consolidation with air bronchograms similar to previous exams. Stable small pulmonary nodules. Severe coronary artery calcification. Fleischner guidelines were followed.
--- NOTE | ~2022-07-29 | CT_ITS ---
EXAMINATION: CT ABDOMEN AND PELVIS WITHOUT CONTRAST CLINICAL INFORMATION: Abdominal pain. COMPARISON: CT abdomen and pelvis 10/05/2017. TECHNIQUE: Multidetector volumetric imaging was performed from the superior aspect of the liver through the pubic symphysis. Sagittal and coronal reformatted images were obtained on the technologist's workstation. This CT examination was performed using dose optimization techniques as appropriate, variously including the following: *Automated exposure control *Adjustment of mA and/or kV according to patient size (this includes techniques or standardized protocols for targeted exams where dose is matched to indication/reason for exam; i.e. extremities or head) *Use of iterative reconstruction technique DLP: 704 mGy-cm FINDINGS: LUNG BASES: Tiny left lower lobe lung nodule. LIVER, GALLBLADDER, AND BILIARY TREE: The liver appears normal. No discrete liver mass. There is trace pneumobilia in the left main bile duct. Correlate for prior papillotomy. No portal venous gas. The gallbladder is unremarkable with no evidence of radiopaque gallstones, gallbladder wall thickening, or obvious pericholecystic inflammatory changes. PANCREAS: The pancreas appears normal. SPLEEN: The spleen appears normal. ADRENAL GLANDS: No adrenal mass. KIDNEYS AND URETERS: 5 mm calculus in the upper right kidney 10.5 cm from the posterior skin. Other calcifications appear vascular. No hydroureteronephrosis. BLADDER: Unremarkable. GASTROINTESTINAL TRACT: Small bowel is normal in caliber. No mesenteric mass or fluid. The appendix appears normal. The large bowel is mildly distended with a large amount of stool. No discrete colonic mass is seen. No pericolonic inflammatory changes. ABDOMINAL WALL: Diffuse laxity of the abdominal wall but no discrete hernia. LYMPH NODES: No lymphadenopathy. VASCULAR: Moderate aortoiliac atherosclerotic disease with heavily calcified possibly obstructive lesions in the common femoral arteries bilaterally. No aortic aneurysm. PELVIC VISCERA: The prostate and seminal vesicles are unremarkable. OSSEOUS STRUCTURES: Degenerative changes in the spine. Grade 2 anterolisthesis of L4 on L5 measuring 9 mm secondary to bilateral pars defects. CT/CT abdomen pelvis wo IV con IMPRESSION: Mild diffuse dilatation of the colon with a large amount of stool consistent with constipation. No discrete obstructing lesion is seen. Trace left pneumobilia. Correlate for prior papillotomy. 5 mm nonobstructing calculus upper right kidney. Fleischner guidelines were followed.
--- NOTE | ~2022-07-29 | XR_ITS ---
EXAMINATION: XR ABDOMEN KUB CLINICAL INDICATION: Constipation. COMPARISON: KUB 07/26/2022 TECHNIQUE: AP view of the abdomen. FINDINGS: There is bowel gas seen throughout the colon without any distention. Minimal stool is seen in the right colon as before. No organomegaly. No radiopaque renal calculi seen however limited. Mild spondylosis lower dorsal and upper lumbar spine. XR/XR KUB IMPRESSION: 1. Mild constipation. No acute process seen. 2. Mild spondylosis lower dorsal and upper lumbar spine.
--- NOTE | ~2022-07-29 | FL_ITS ---
EXAMINATION: FL GASTROGRAFIN ENEMA CLINICAL INDICATION: Severe constipation. COMPARISON: CT abdomen and pelvis without IV contrast 08/04/2022. TECHNIQUE: Cage Fighter abdomen image was obtained prior to the exam. A 50/50 dilution of Gastrografin and water was inserted through a rectal tube and images obtained under fluoroscopy. Postevacuation images were obtained as well. FINDINGS: There is moderate gas seen on the supply and distribution manager view of the abdomen. Following insertion of diluted Gastrografin, there is prompt retrograde flow seen through the entire sigmoid colon, descending, transverse into the ascending colon without any obstructive lesion, narrowing or stricture. There are a few mobile filling defects consistent stool in the ascending and descending colon. On postevacuation images, there is moderate retention of Gastrografin in spite of reverse drainage and patient going to the bathroom. FL/FL enema w gastrografin IMPRESSION: Gastrografin enema reveals no obstructive or constrictive lesion. There is scattered stool seen throughout the colon.
[2022-07-29 21:27] VITALS: BP 87/52; PULSE 93; RESP 18; TEMP 36.1; O2SAT 88; BMI 32.3
--- NOTE | 2022-07-29 21:36 | ED_ITS ---
HPI - SOB/Dyspnea General Chief Complaint: Dyspnea Stated Complaint: difficulty breathing Time Seen by Provider: 07/29/22 21:35 Source: patient Mode of arrival: ambulatory Limitations: no limitations History of Present Illness HPI Narrative: patient is 72 years old with history of severe COPD on 2 L of oxygen 24 hours and prednisone with history of lung cancer status post chemo and radiation with fibrosis with chronic hypercarbic respiratory failure comes in for increased shortness of breath for last few days patient been seen here 3 times since 07/18 for shortness of breath/constipation/neuropathy had last bowel movement on 07/26 when he was in the ER since then he has not moved his bowels patient is satur ating 88% on 2 L in the triage patient feels very short of breath when he ambulates Related Data Home Medications Medication Instructions Recorded Confirmed albuterol sulfate 90 mcg/actuation 2 puff PO Q4H PRN Shortness Of 01/14/20 07/29/22 aerosol inhaler Breath Or Wheezing ipratropium 0.5 mg-albuterol 3 mg 3 ml inhalation Q6H PRN COPD 01/14/20 07/29/22 (2.5 mg base)/3 mL nebulization soln budesonide-formoterol HFA 160 2 puff inhalation DAILY 03/14/21 07/29/22 mcg-4.5 mcg/actuation aerosol inhaler (Symbicort) isosorbide mononitrate 30 mg 30 mg PO DAILY 03/14/21 07/29/22 tablet,extended release 24 hr aspirin 81 mg tablet,delayed 81 mg PO DAILY 08/04/21 07/29/22 release calcium carbonate 600 mg-vitamin 1 tab PO DAILY 08/04/21 07/29/22 D3 10 mcg (400 unit) tablet omeprazole 20 mg capsule,delayed 20 mg PO DAILY@0630 11/28/21 07/29/22 release escitalopram oxalate 20 mg tablet 10 mg PO DAILY 06/07/22 06/25/22 glipizide 5 mg tablet 5 mg PO DAILY@1700 06/07/22 07/29/22 Oxygen Home Use 06/14/22 06/25/22 nebulizers 06/14/22 06/25/22 Previous Rx's Medication Instructions Recorded multivitamin (Daily-Kathleen tablet) 1 tab PO DAILY #90 tabs 05/13/20 metformin 1,000 mg tablet 1,000 mg PO BID #180 tabs 11/07/21 blood sugar diagnostic (FreeStyle #100 ea 01/23/22 Lite Strips) blood-glucose meter (FreeStyle #1 ea 01/23/22 Lite Meter kit) atorvastatin 80 mg tablet 80 mg PO BEDTIME #90 tabs 02/05/22 metoprolol tartrate 25 mg tablet 25 mg PO BID #180 tabs 05/02/22 prednisone 10 mg tablet 10 mg PO DAILY #60 tabs 06/10/22 lorazepam 0.5 mg tablet 0.5 mg PO DAILY PRN anxiety #30 07/11/22 tabs hydrochlorothiazide 25 mg tablet 25 mg PO QAM #30 tabs 07/18/22 gabapentin 100 mg capsule 100 mg PO TID #30 caps 07/21/22 glipizide 5 mg tablet 5 mg PO .COMPLEX #270 tabs 07/26/22 Allergies Allergy/AdvReac Type Severity Reaction Status Date / Time fluticasone furoate Allergy Intermediate rash Verified 07/29/22 21:27 [From Trelegy Ellipta] vilanterol Allergy Intermediate rash Verified 07/29/22 21:27 [From Trelegy Ellipta] umeclidinium Allergy Unknown hives Verified 07/29/22 21:27 [Incruse Ellipta] lasix AdvReac Intermediate Hallucinati Uncoded 06/30/22 04:11 ons Review of Systems Review of Systems: Yes all other systems are reviewed and are negative [facility] Past Medical History Medical History Acute on chronic respiratory failure with hypoxia and hypercapnia Anemia Asthma Bacteremia due to Enterococcus Chronic lung disease Chronic lung disease Chronic respiratory failure Chronic respiratory failure with hypoxia and hypercapnia COPD exacerbation COPD, severe Diabetes mellitus with hyperglycemia, without long-term current use of insulin Dyslipidemia Generalized anxiety disorder History of pneumonia HTN (hypertension) Hyperlipemia Lung cancer Radiation fibrosis of lung Skin cancer Urinary incontinence Surgical History History of esophagogastroduodenoscopy (EGD) Hx of colonoscopy Hx of heart artery stent Family History Family History Father Medical history non-contributory Mother Medical history non-contributory Unknown family medical history Lung collapse Brother No problems noted. Brother No problems noted. Son Substance use disorder Son No problems noted. Daughter No problems noted. Sister No problems noted. Sister No problems noted. Sister No problems noted. Sister No problems noted. Other HTN (hypertension) Social History Social History Household Members: Spouse Household Members Other:: grandson Housing: House Are you a primary med care manager to a significant other at home: No Do you presently have visiting nurse or other home services: No Alcohol intake: never Patient Tobacco Use Status: Former Tobacco user e-Cigarette/Vaping Use: Never Used Advance Directives: Yes Advance Directives on File: Yes Advance Directives Date on File: 06/08/22 service: No Current occupational status: retired Cognitive needs: No Hearing needs: No Vision needs: No Physical Exam Vital Signs: Vital Signs: Last Vital Signs Temp 97.5 F 07/29/22 23:41 Pulse 87 07/29/22 23:41 Resp 33 H 07/29/22 23:41 BP 97/58 L 07/29/22 23:41 Pulse Ox 98 07/29/22 23:41 O2 Del Method Nasal Cannula 07/29/22 22:33 O2 Flow Rate 2 07/29/22 23:41 Oxygen Flow Rate 2 07/29/22 21:27 BMI result Body Mass Index 32.3 Appearance: Alert. Oriented X3. Mild respiratory distress, Obese Eyes: PERRLA, No Nystagmus ENT: Pharynx normal. Oral Mucosa moist Neck: Normal inspection. Neck supple. CVS: Normal heart rate and rhythm. Pulses normal. Respiratory: mild respiratory distress. Equal air entry bilateral, bilateral wheezing, occasional crackles Abdomen: Soft and nontender. Bowel sounds are present, no mass palpable, no CVA tenderness Skin: Skin warm and dry. Normal skin color. Normal skin turgor. Extremities: Trace lower extremity edema. No calf tenderness Neuro: Oriented X 3. No motor deficit. Medications Administered Discontinued Medications Generic Name Dose Route Start Last Admin Trade Name Freq PRN Reason Stop Dose Admin Albuterol Sulfate 5 mg/ 0 mg 07/29/22 21:50 07/29/22 22:00 Albuterol/Ipratropium 3 ml INHALE 07/29/22 21:51 1 each ONCE ONE Administration Sodium Chloride 1,000 mls @ 999 mls/hr 07/29/22 21:55 07/30/22 00:34 Ns IV 07/29/22 22:55 Infused .Q1H1M ONE Infusion Ceftriaxone Sodium 1 gm/ 50 mls @ 100 mls/hr 07/29/22 23:04 07/30/22 00:35 Sodium Chloride IV 07/29/22 23:33 Infused ONCE ONE Infusion Azithromycin 500 mg/ Sodium 250 mls @ 125 mls/hr 07/29/22 23:04 07/30/22 01:11 Chloride IV 07/30/22 01:03 125 mls/hr ONCE ONE Administration Insulin Human Lispro 14 unit 07/29/22 22:55 07/29/22 23:06 Insulin Lispro 100 Unit/Ml 3 Ml Vial SUBCUT 07/29/22 22:56 14 unit ONCE ONE Administration Methylprednisolone Sodium Succinate 125 mg 07/29/22 21:55 07/29/22 23:06 Methylprednisolone Sod Succ 125 Mg/2 Ml Vial IVPUSH 07/29/22 21:56 125 mg ONCE ONE Administration Medical Decision Making Medical Decision Making MDM Narrative: Patient with severe COPD oxygen dependent with history of lung cancer status post radiation treatment comes here for increased shortness of breath desaturated to 88% on 2 L chest x-ray negative for infiltrate had elevated lactic acid is likely from nebulizing treatment and use of metformin. Will admit patient for supportive treatment will give prophylactic antibiotic and IV fluids patient blood pressure was slightly low when he arrived 87/52 improved after IV hydration 97/58 Differential Diagnosis Pneumonia/bronchitis/COPD/CHF/respiratory failure Consult Healthcare Provider Management of the patient was discussed with: Hospitalist Lab Data MDM Lab Attestation statement: I reviewed the patient's lab results. 07/29/22 22:17 07/29/22 22:17 Labs: Lab Results 07/29/22 07/29/22 07/29/22 Range/Units 22:17 22:17 22:17 WBC 6.4 (4.8-10.8) X10*3/uL RBC 4.13 L (4.60-5.80) X10*6/uL Hgb 12.0 L (14.0-18.0) g/dl Hct 38.4 L (42.0-52.0) % MCV 93.0 (80.0-98.0) fL MCH 29.1 (27.0-33.0) pg MCHC 31.3 (31.0-36.0) g/dl RDW 13.0 (11.0-16.0) % Plt Count 191 (160-400) X10*3/uL MPV 10.5 (9.4-12.4) fL Immature Gran % (Auto) 0.5 H (0.0-0.4) % Neut % (Auto) 72.8 (45-73) % Lymph % (Auto) 13.6 L (20-40) % [place] % (Auto) 9.7 (2-11) % Eos % (Auto) 2.6 (0-4) % Baso % (Auto) 0.8 (0-2) % Lymph # (Auto) 0.9 L (1.2-4.9) X10*3/uL [place] # (Auto) 0.6 (0.1-1.2) X10*3/uL Eos # (Auto) 0.2 (0.0-0.4) X10*3/uL Baso # (Auto) 0.1 (0.0-0.2) X10*3/uL Abs Immat Gran (auto) 0.03 (0.00-0.03) X10*3/uL Absolute Neuts (auto) 4.7 (2.0-8.3) x10*3/uL Absolute Nucleated RBC 0.000 (0.0-0.012) X10*3/uL Nucleated RBC % (auto) 0.0 (0.0-0.2) /100WBC PT 10.5 (10.0-13.1) SEC INR 0.9 (0.9-1.1) D-Dimer High Sensitivty NG/ML VBG pH (7.32-7.43) VBG pCO2 mmHg VBG pO2 mmHg VBG HCO3 (22-26) mmol/L VBG O2 Saturation % VBG Base Excess mmol/L Sodium 138 (135-145) mmol/L Potassium 4.3 (3.3-5.1) mmol/L Chloride 87 L (96-108) mmol/L Carbon Dioxide 41 H* (22-29) mmol/L Anion Gap 14 (12-20) BUN 15 (9-16) mg/dL Creatinine 1.14 (0.5-1.4) mg/dL Estim Creat Clear Calc 61.7 Estimated GFR > 60 POC Glucose (60-115) mg/dL Random Glucose 416 H* (60-115) mg/dL Lactic Acid (0.5-2.0) mmol/L Calcium 9.5 (8.4-10.2) mg/dL Total Bilirubin 0.5 (0.0-1.0) mg/dL AST 18 (5-37) U/L ALT 22 (0-40) U/L Alkaline Phosphatase 97 (39-117) U/L Troponin I High Sens (<3.5-35.0) ng/L B-Natriuretic Peptide (<100) pg/mL Total Protein 6.5 (6.5-8.0) g/dL Albumin 4.1 (3.5-5.0) g/dL COVID-19 ([facility]) (Negative) COVID-19 Clin Com 07/29/22 07/29/22 07/29/22 Range/Units 22:17 22:17 22:17 WBC (4.8-10.8) X10*3/uL RBC (4.60-5.80) X10*6/uL Hgb (14.0-18.0) g/dl Hct (42.0-52.0) % MCV (80.0-98.0) fL MCH (27.0-33.0) pg MCHC (31.0-36.0) g/dl RDW (11.0-16.0) % Plt Count (160-400) X10*3/uL MPV (9.4-12.4) fL Immature Gran % (Auto) (0.0-0.4) % Neut % (Auto) (45-73) % Lymph % (Auto) (20-40) % [place] % (Auto) (2-11) % Eos % (Auto) (0-4) % Baso % (Auto) (0-2) % Lymph # (Auto) (1.2-4.9) X10*3/uL [place] # (Auto) (0.1-1.2) X10*3/uL Eos # (Auto) (0.0-0.4) X10*3/uL Baso # (Auto) (0.0-0.2) X10*3/uL Abs Immat Gran (auto) (0.00-0.03) X10*3/uL Absolute Neuts (auto) (2.0-8.3) x10*3/uL Absolute Nucleated RBC (0.0-0.012) X10*3/uL Nucleated RBC % (auto) (0.0-0.2) /100WBC PT (10.0-13.1) SEC INR (0.9-1.1) D-Dimer High Sensitivty NG/ML VBG pH (7.32-7.43) VBG pCO2 mmHg VBG pO2 mmHg VBG HCO3 (22-26) mmol/L VBG O2 Saturation % VBG Base Excess mmol/L Sodium (135-145) mmol/L Potassium (3.3-5.1) mmol/L Chloride (96-108) mmol/L Carbon Dioxide (22-29) mmol/L Anion Gap (12-20) BUN (9-16) mg/dL Creatinine (0.5-1.4) mg/dL Estim Creat Clear Calc Estimated GFR POC Glucose (60-115) mg/dL Random Glucose (60-115) mg/dL Lactic Acid 2.7 H* (0.5-2.0) mmol/L Calcium (8.4-10.2) mg/dL Total Bilirubin (0.0-1.0) mg/dL AST (5-37) U/L ALT (0-40) U/L Alkaline Phosphatase (39-117) U/L Troponin I High Sens 5.0 (<3.5-35.0) ng/L B-Natriuretic Peptide (<100) pg/mL Total Protein (6.5-8.0) g/dL Albumin (3.5-5.0) g/dL COVID-19 ([facility]) Negative (Negative) COVID-19 Clin Com See Note 07/29/22 07/29/22 07/29/22 Range/Units 22:17 22:17 22:23 WBC (4.8-10.8) X10*3/uL RBC (4.60-5.80) X10*6/uL Hgb (14.0-18.0) g/dl Hct (42.0-52.0) % MCV (80.0-98.0) fL MCH (27.0-33.0) pg MCHC (31.0-36.0) g/dl RDW (11.0-16.0) % Plt Count (160-400) X10*3/uL MPV (9.4-12.4) fL Immature Gran % (Auto) (0.0-0.4) % Neut % (Auto) (45-73) % Lymph % (Auto) (20-40) % [place] % (Auto) (2-11) % Eos % (Auto) (0-4) % Baso % (Auto) (0-2) % Lymph # (Auto) (1.2-4.9) X10*3/uL [place] # (Auto) (0.1-1.2) X10*3/uL Eos # (Auto) (0.0-0.4) X10*3/uL Baso # (Auto) (0.0-0.2) X10*3/uL Abs Immat Gran (auto) (0.00-0.03) X10*3/uL Absolute Neuts (auto) (2.0-8.3) x10*3/uL Absolute Nucleated RBC (0.0-0.012) X10*3/uL Nucleated RBC % (auto) (0.0-0.2) /100WBC PT (10.0-13.1) SEC INR (0.9-1.1) D-Dimer High Sensitivty 281 NG/ML VBG pH 7.36 (7.32-7.43) VBG pCO2 88 mmHg VBG pO2 38 mmHg VBG HCO3 50 H (22-26) mmol/L VBG O2 Saturation 59.0 % VBG Base Excess 19.8 mmol/L Sodium (135-145) mmol/L Potassium (3.3-5.1) mmol/L Chloride (96-108) mmol/L Carbon Dioxide (22-29) mmol/L Anion Gap (12-20) BUN (9-16) mg/dL Creatinine (0.5-1.4) mg/dL Estim Creat Clear Calc Estimated GFR POC Glucose (60-115) mg/dL Random Glucose (60-115) mg/dL Lactic Acid (0.5-2.0) mmol/L Calcium (8.4-10.2) mg/dL Total Bilirubin (0.0-1.0) mg/dL AST (5-37) U/L ALT (0-40) U/L Alkaline Phosphatase (39-117) U/L Troponin I High Sens (<3.5-35.0) ng/L B-Natriuretic Peptide 11 (<100) pg/mL Total Protein (6.5-8.0) g/dL Albumin (3.5-5.0) g/dL COVID-19 ([facility]) (Negative) COVID-19 Clin Com 07/29/22 Range/Units 23:03 WBC (4.8-10.8) X10*3/uL RBC (4.60-5.80) X10*6/uL Hgb (14.0-18.0) g/dl Hct (42.0-52.0) % MCV (80.0-98.0) fL MCH (27.0-33.0) pg MCHC (31.0-36.0) g/dl RDW (11.0-16.0) % Plt Count (160-400) X10*3/uL MPV (9.4-12.4) fL Immature Gran % (Auto) (0.0-0.4) % Neut % (Auto) (45-73) % Lymph % (Auto) (20-40) % [place] % (Auto) (2-11) % Eos % (Auto) (0-4) % Baso % (Auto) (0-2) % Lymph # (Auto) (1.2-4.9) X10*3/uL [place] # (Auto) (0.1-1.2) X10*3/uL Eos # (Auto) (0.0-0.4) X10*3/uL Baso # (Auto) (0.0-0.2) X10*3/uL Abs Immat Gran (auto) (0.00-0.03) X10*3/uL Absolute Neuts (auto) (2.0-8.3) x10*3/uL Absolute Nucleated RBC (0.0-0.012) X10*3/uL Nucleated RBC % (auto) (0.0-0.2) /100WBC PT (10.0-13.1) SEC INR (0.9-1.1) D-Dimer High Sensitivty NG/ML VBG pH (7.32-7.43) VBG pCO2 mmHg VBG pO2 mmHg VBG HCO3 (22-26) mmol/L VBG O2 Saturation % VBG Base Excess mmol/L Sodium (135-145) mmol/L Potassium (3.3-5.1) mmol/L Chloride (96-108) mmol/L Carbon Dioxide (22-29) mmol/L Anion Gap (12-20) BUN (9-16) mg/dL Creatinine (0.5-1.4) mg/dL Estim Creat Clear Calc Estimated GFR POC Glucose 338 H (60-115) mg/dL Random Glucose (60-115) mg/dL Lactic Acid (0.5-2.0) mmol/L Calcium (8.4-10.2) mg/dL Total Bilirubin (0.0-1.0) mg/dL AST (5-37) U/L ALT (0-40) U/L Alkaline Phosphatase (39-117) U/L Troponin I High Sens (<3.5-35.0) ng/L B-Natriuretic Peptide (<100) pg/mL Total Protein (6.5-8.0) g/dL Albumin (3.5-5.0) g/dL COVID-19 ([facility]) (Negative) COVID-19 Clin Com Independent Interpretation I performed an independent interpretation of an: EKG Interpretation: Normal sinus rhythm heart rate 88 beats per minute normal interval normal axis no acute ST-T changes no acute ischemia Discharge Plan Discharge Clinical Impression: Acute on chronic respiratory failure with hypoxia and hypercapnia, Diabetes mellitus with hyperglycemia, without long-term current use of insulin, Chronic lung disease Patient Disposition: Admitted As Inpatient
[2022-07-29 21:52] VITALS: BP 90/55; PULSE 83; RESP 16; O2SAT 95
[2022-07-29 22:02] VITALS: PULSE 75; RESP 18; O2SAT 96
[2022-07-29 22:25] LABS: MANUAL DIFF FLAG NO
[2022-07-29 22:27] LABS: Basophils Absolute Auto 0.1 X10*3/uL (0.0-0.2); Basophils Percent Auto 0.8 % (0-2); Eosinophils Absolute Auto 0.2 X10*3/uL (0.0-0.4); Eosinophils Percent Auto 2.6 % (0-4); Hematocrit 38.4 % (42.0-52.0); Imm Gran Abs Auto 0.03 X10*3/uL (0.00-0.03); Imm Gran Pct Auto 0.5 % (0.0-0.4); Lymphocytes Absolute Auto 0.9 X10*3/uL (1.2-4.9); Lymphocytes Percent Auto 13.6 % (20-40); Mean Corpuscular HGB Conc 31.3 g/dl (31.0-36.0); Mean Corpuscular Hemoglobin 29.1 pg (27.0-33.0); Mean Platelet Volume 10.5 fL (9.4-12.4); Monocytes Absolute Auto 0.6 X10*3/uL (0.1-1.2); Monocytes Percent Auto 9.7 % (2-11); Neutrophils Absolute Auto 4.7 x10*3/uL (2.0-8.3); Neutrophils Percent Auto 72.8 % (45-73); Platelet Count 191 X10*3/uL (160-400); Red Blood Count 4.13 X10*6/uL (4.60-5.80); White Blood Count 6.4 X10*3/uL (4.8-10.8)
[2022-07-29 22:31] LABS: VBG Base Excess 19.8 mmol/L; VBG HCO3 50 mmol/L (22-26); VBG pCO2 88 mmHg; VBG pH 7.36 (7.32-7.43); VBG pO2 38 mmHg
[2022-07-29 22:32] LABS: Venous Blood Gas Refer to POC result
[2022-07-29 22:33] VITALS: BP 99/56; PULSE 87; RESP 17; O2SAT 94
[2022-07-29 22:34] LABS: INTERNATIONAL NORM RATIO 0.9 (0.9-1.1); Prothrombin Time 10.5 SEC (10.0-13.1)
[2022-07-29 22:36] LABS: D Dimer High Sensitivity 281 NG/ML
[2022-07-29 22:42] LABS: Lactic Acid 2.7 mmol/L (0.5-2.0)
[2022-07-29 22:45] LABS: COVID-19 Test Negative (Negative); IDNOW Serial# 6674DD1D
[2022-07-29 22:48] LABS: Alanine Aminotransferase 22 U/L (0-40); Albumin Level 4.1 g/dL (3.5-5.0); Alkaline Phosphatase 97 U/L (39-117); Anion Gap 14 (12-20); Aspartate Amino Transferase 18 U/L (5-37); Bilirubin Total 0.5 mg/dL (0.0-1.0); Blood Urea Nitrogen 15 mg/dL (9-16); Calcium 9.5 mg/dL (8.4-10.2); Carbon Dioxide 41 mmol/L (22-29); Chloride 87 mmol/L (96-108); Creatinine Clr Calc Pharmacy 61.7; Estimated Glomerular Filt Rate > 60; Glucose Random 416 mg/dL (60-115); Potassium 4.3 mmol/L (3.3-5.1); Sodium 138 mmol/L (135-145); Total Protein 6.5 g/dL (6.5-8.0)
[2022-07-29 22:50] LABS: B Type Natriuretic Peptide 11 pg/mL (<100)
--- NOTE | 2022-07-29 23:01 | ECG_ITS ---
Test Reason : DSYPNEA Blood Pressure : / mmHG Vent. Rate : 088 BPM Atrial Rate : 088 BPM P-R Int : 152 ms QRS Dur : 090 ms QT Int : 370 ms P-R-T Axes : 036 081 069 degrees QTc Int : 447 ms Normal sinus rhythm Normal ECG When compared with ECG of 21-JUL-2022 00:27, No significant change was found Referred By: Michael Keys Electronically Signed By:Carlitos Meyers
[2022-07-29] MEDS: methylPREDNISolone Sod Succ 125 MG/2 ML VIAL IVPUSH (23:06)
[2022-07-29] MEDS: Insulin Lispro 100 UNIT/ML 3 ML VIAL 14 UNIT SUBCUT (23:06)
[2022-07-29 23:07] LABS: Glucose, Whole Blood 338 mg/dL (60-115)
[2022-07-29] MEDS: 0.9 % Sodium Chloride 1,000 ML 999 ML IV (23:07)
[2022-07-29] MEDS: cefTRIAXone sodium 1 GM in 0.9 % Sodium Chloride 50 ML IV (23:17)
[2022-07-29 23:41] VITALS: BP 97/58; PULSE 87; RESP 33; TEMP 36.4; O2SAT 98
--- NOTE | 2022-07-29 23:54 | PM.IMHP ---
History of Present Illness Date of Service: 07/29/22 Chief Complaint: sob 72M PMH severe persistent asthma/COPD overlap, chronic hypoxemic and hypercapnic respiratory failure, hepatic steatosis, etoh dependence, former smoker who quit 16 years ago, anxiety, HLD, HTN, and hx of left lung cancer?s/p chemo and radiation 10 years ago who presented to the ED with?increasing shortness of breath. patient reports 2-3 days worsening cough, unable to bring up phlegm, inctreasing o2 requirements, inability to tolerate baseline exertion due to sob. in ED found to be hypoxic to 88% on @L, cxr unremarkable, vbg with at baseline 7.36, pco2 88 Review of Systems Review of Systems: Yes all other systems are reviewed and are negative [facility] Medical History Acute on chronic respiratory failure with hypoxia and hypercapnia Anemia Asthma Bacteremia due to Enterococcus Chronic lung disease Chronic lung disease Chronic respiratory failure Chronic respiratory failure with hypoxia and hypercapnia COPD exacerbation COPD, severe Diabetes mellitus with hyperglycemia, without long-term current use of insulin Dyslipidemia Generalized anxiety disorder History of pneumonia HTN (hypertension) Hyperlipemia Lung cancer Radiation fibrosis of lung Skin cancer Urinary incontinence Family History Father Medical history non-contributory Mother Medical history non-contributory Unknown family medical history Lung collapse Brother No problems noted. Brother No problems noted. Son Substance use disorder Son No problems noted. Daughter No problems noted. Sister No problems noted. Sister No problems noted. Sister No problems noted. Sister No problems noted. Other HTN (hypertension) Surgical History History of esophagogastroduodenoscopy (EGD) Hx of colonoscopy Hx of heart artery stent Social History Household Members: Spouse Household Members Other:: grandson Housing: House Are you a primary long term care phlebotomist to a significant other at home: No Do you presently have visiting nurse or other home services: No Alcohol intake: never Patient Tobacco Use Status: Former Tobacco user e-Cigarette/Vaping Use: Never Used Advance Directives: Yes Advance Directives on File: Yes Advance Directives Date on File: 06/08/22 service: No Current occupational status: retired Cognitive needs: No Hearing needs: No Vision needs: No Meds Allergies Allergy/AdvReac Type Severity Reaction Status Date / Time fluticasone furoate Allergy Intermediate rash Verified 07/29/22 21:27 [From Trelegy Ellipta] vilanterol Allergy Intermediate rash Verified 07/29/22 21:27 [From Trelegy Ellipta] umeclidinium Allergy Unknown hives Verified 07/29/22 21:27 [Incruse Ellipta] lasix AdvReac Intermediate Hallucinati Uncoded 06/30/22 04:11 ons Active Medications: Current Medications Albuterol/Ipratropium (Albuterol/Iprat 2.5/0.5mg 3 Ml Ampul.Neb) 3 ml INHALE RQ4H WHILE AWAKE DUTCH Aspirin (Aspirin Enteric Coated 81 Mg Tablet.Dr) 81 mg PO DAILY DUTCH Atorvastatin Calcium (Atorvastatin Calcium 80 Mg Tablet) 80 mg PO BEDTIME DUTCH Azithromycin (Azithromycin 500 Mg Tablet) 500 mg PO Q24H DUTCH Glucose (Glucose Gel 15 Gm Gel..Gram.) 15 gm PO Q15M PRN; Protocol PRN Reason: per Hypoglycemia Standing Ord. Dextrose (D10) 250 mls @ 750 mls/hr IV Q15M PRN; Protocol PRN Reason: per Hypoglycemia Standing Ord. Azithromycin 500 mg/ Sodium (Chloride) 250 mls @ 125 mls/hr IV ONCE ONE Stop: 07/30/22 01:03 Insulin Glargine (Insulin Glargine,Hum.Rec.Anlog 100 Unit/Ml 10 Ml Vial) 15 unit SUBCUT BEDTIME DUTCH Insulin Human Lispro (Insulin Lispro 100 Unit/Ml 3 Ml Vial) 0 unit SUBCUT QIDACHS DUTCH; Protocol Isosorbide Mononitrate (Isosorbide Mononitrate 30 Mg Tab.Er.24h) 30 mg PO DAILY DUTCH; Protocol Lorazepam (Lorazepam 0.5 Mg Tablet) 0.5 mg PO DAILY PRN PRN Reason: anxiety Methylprednisolone Sodium Succinate (Methylprednisolone Sod Succ 40 Mg/Ml Vial) 40 mg IVPUSH Q12H DUTCH Metoprolol Tartrate (Metoprolol Tartrate 25 Mg Tablet) 25 mg PO BID DUTCH; Protocol Multivitamins/Vitamin C (Multivitamin Tablet) 1 tab PO DAILY DUTCH Non-Formulary Medication (Budesonide-Formoterol [Symbicort]) 2 puff INHALE DAILY [facility] Non-Formulary Medication (Calcium Carbonate-Vitamin D3) 1 tab PO DAILY [facility] Omeprazole (Omeprazole 20 Mg Capsule.) 20 mg PO DAILY@0630 [facility] Home Medications Medication Instructions Recorded Confirmed Last Taken Type albuterol sulfate 90 mcg/actuation 2 puff PO Q4H PRN Shortness Of 01/14/20 07/29/22 07/29/22 18:00 History aerosol inhaler Breath Or Wheezing ipratropium 0.5 mg-albuterol 3 mg 3 ml inhalation Q6H PRN COPD 01/14/20 07/29/22 07/29/22 08:00 History (2.5 mg base)/3 mL nebulization soln budesonide-formoterol HFA 160 2 puff inhalation DAILY 03/14/21 07/29/22 07/29/22 08:00 History mcg-4.5 mcg/actuation aerosol inhaler (Symbicort) isosorbide mononitrate 30 mg 30 mg PO DAILY 03/14/21 07/29/22 07/29/22 08:00 History tablet,extended release 24 hr aspirin 81 mg tablet,delayed 81 mg PO DAILY 08/04/21 07/29/22 07/28/22 08:00 History release calcium carbonate 600 mg-vitamin 1 tab PO DAILY 08/04/21 07/29/22 07/28/22 08:00 History D3 10 mcg (400 unit) tablet omeprazole 20 mg capsule,delayed 20 mg PO DAILY@0630 11/28/21 07/29/22 07/29/22 08:00 History release escitalopram oxalate 20 mg tablet 10 mg PO DAILY 06/07/22 06/25/22 06/07/22 History glipizide 5 mg tablet 5 mg PO DAILY@1700 06/07/22 07/29/22 07/29/22 08:00 History Oxygen Home Use 06/14/22 06/25/22 Unknown History nebulizers 06/14/22 06/25/22 Unknown History Physical Exam Vital Signs and Narrative: Vital Signs: Last Vital Signs Temp 97.5 F 07/29/22 23:41 Pulse 87 07/29/22 23:41 Resp 33 H 07/29/22 23:41 BP 97/58 L 07/29/22 23:41 Pulse Ox 98 07/29/22 23:41 O2 Del Method Nasal Cannula 07/29/22 22:33 O2 Flow Rate 2 07/29/22 23:41 Oxygen Flow Rate 2 07/29/22 21:27 BMI result Body Mass Index 32.3 General: AO X 3, in acute distress Resp: diminished bilateral, mild accessory muscles used CVS: S1,S2,RRR GI: soft, non tender, non distended Neuro: motor grossly intact, alert Psych: appropriate affect, appropriate insight Results Labs 07/29/22 22:17 07/29/22 22:17 Labs: Laboratory Results - last 24 hr 07/29/22 07/29/22 07/29/22 22:17 22:17 22:17 MCV 93.0 MCH 29.1 MCHC 31.3 RDW 13.0 Plt Count 191 MPV 10.5 Immature Gran % (Auto) 0.5 H Neut % (Auto) 72.8 Lymph % (Auto) 13.6 L [place] % (Auto) 9.7 Eos % (Auto) 2.6 Baso % (Auto) 0.8 Lymph # (Auto) 0.9 L [place] # (Auto) 0.6 Eos # (Auto) 0.2 Baso # (Auto) 0.1 Abs Immat Gran (auto) 0.03 Absolute Neuts (auto) 4.7 Absolute Nucleated RBC 0.000 Nucleated RBC % (auto) 0.0 PT 10.5 INR 0.9 D-Dimer High Sensitivty VBG pH VBG pCO2 VBG pO2 VBG HCO3 VBG O2 Saturation VBG Base Excess Anion Gap 14 Estim Creat Clear Calc 61.7 Estimated GFR > 60 POC Glucose Random Glucose 416 H* Lactic Acid Calcium 9.5 Total Bilirubin 0.5 AST 18 ALT 22 Alkaline Phosphatase 97 Troponin I High Sens B-Natriuretic Peptide Total Protein 6.5 Albumin 4.1 COVID-19 ([facility]) COVID-19 Clin Com 07/29/22 07/29/22 07/29/22 22:17 22:17 22:17 MCV MCH MCHC RDW Plt Count MPV Immature Gran % (Auto) Neut % (Auto) Lymph % (Auto) [place] % (Auto) Eos % (Auto) Baso % (Auto) Lymph # (Auto) [place] # (Auto) Eos # (Auto) Baso # (Auto) Abs Immat Gran (auto) Absolute Neuts (auto) Absolute Nucleated RBC Nucleated RBC % (auto) PT INR D-Dimer High Sensitivty VBG pH VBG pCO2 VBG pO2 VBG HCO3 VBG O2 Saturation VBG Base Excess Anion Gap Estim Creat Clear Calc Estimated GFR POC Glucose Random Glucose Lactic Acid 2.7 H* Calcium Total Bilirubin AST ALT Alkaline Phosphatase Troponin I High Sens 5.0 B-Natriuretic Peptide Total Protein Albumin COVID-19 ([facility]) Negative COVID-19 Clin Com See Note 07/29/22 07/29/22 07/29/22 22:17 22:17 22:23 MCV MCH MCHC RDW Plt Count MPV Immature Gran % (Auto) Neut % (Auto) Lymph % (Auto) [place] % (Auto) Eos % (Auto) Baso % (Auto) Lymph # (Auto) [place] # (Auto) Eos # (Auto) Baso # (Auto) Abs Immat Gran (auto) Absolute Neuts (auto) Absolute Nucleated RBC Nucleated RBC % (auto) PT INR D-Dimer High Sensitivty 281 VBG pH 7.36 VBG pCO2 88 VBG pO2 38 VBG HCO3 50 H VBG O2 Saturation 59.0 VBG Base Excess 19.8 Anion Gap Estim Creat Clear Calc Estimated GFR POC Glucose Random Glucose Lactic Acid Calcium Total Bilirubin AST ALT Alkaline Phosphatase Troponin I High Sens B-Natriuretic Peptide 11 Total Protein Albumin COVID-19 ([facility]) COVIDelmenus Com 07/29/22 23:03 MCV MCH MCHC RDW Plt Count MPV Immature Gran % (Auto) Neut % (Auto) Lymph % (Auto) [place] % (Auto) Eos % (Auto) Baso % (Auto) Lymph # (Auto) [place] # (Auto) Eos # (Auto) Baso # (Auto) Abs Immat Gran (auto) Absolute Neuts (auto) Absolute Nucleated RBC Nucleated RBC % (auto) PT INR D-Dimer High Sensitivty VBG pH VBG pCO2 VBG pO2 VBG HCO3 VBG O2 Saturation VBG Base Excess Anion Gap Estim Creat Clear Calc Estimated GFR POC Glucose 338 H Random Glucose Lactic Acid Calcium Total Bilirubin AST ALT Alkaline Phosphatase Troponin I High Sens B-Natriuretic Peptide Total Protein Albumin COVID-19 ([facility]) COVID-19 Clin Com Imaging Radiologist's Impressions: Impressions Chest X-Ray 07/29/22 22:05 IMPRESSION: No evidence for acute disease in the chest. Assessment and Plan (1) Chronic respiratory failure with hypoxia and hypercapnia: Status: Acute Plan 72M PMH severe persistent asthma/COPD overlap, chronic hypoxemic and hypercapnic respiratory failure, hepatic steatosis, etoh dependence, former smoker who quit 16 years ago, anxiety, HLD, HTN, and hx of left lung cancer?s/p chemo and radiation 10 years ago who presented to the ED with?increasing shortness of breath acute on chronic hypoxic and hypercapneic respiratory failure due to severe persistent asthma/copd with acute decopmensation steroids, azithro, bronchodilators wean o2 as tolerated lactic acidosis due to metformin and nebs, not sepsis etoh dependence with hepatic steatosis reports soberiety DM with hyperglycemia insulin, pocs HTN hodling bp meds forlow bps, hypotension possibly hypovolemic, given 1L NS in Ed, monitor hld statin anxiety ativan obeisty weight loss dvt prophyalxis - lovenox full code patient with singificnat sob, hypoxia, high risk for further decompensation due to DM, chronic hypercapnea, obesity, hepatic steatosis, therefore, expected to require atleast 2 midnights inpatient Time Spent With Patient Time: Total time managing care of this patient today ____ minutes. Quality Stroke Does the patient have a stroke diagnosis?: No VTE Prior VTE?: No VTE Risk Level:: Medical - moderate - high VTE Device Contraindication: Treatment Not Indicated VTE Drug Contraindication: N/A - Med Ordered
[2022-07-30] VITALS (7 sets, daily range): BP systolic 126–145; BP diastolic 59–74; PULSE 98–114; RESP 16–20; TEMP 36.4–36.8; O2SAT 93–96
--- NOTE | 2022-07-30 00:02 | MHC.EDTECH ---
i took over this assignment , vitals were taken and a sandwich and drink was given, he is now comfortble sitting in bed
[2022-07-30 00:23] LABS: Reflex Lactate? Lactic Acid Added
[2022-07-30] MEDS: Azithromycin 500 MG in 0.9 % Sodium Chloride 250 ML 125 MG IV (01:11)
[2022-07-30] MEDS: LORazepam 0.5 MG TABLET PO ×2 (02:27→21:45)
--- NOTE | 2022-07-30 02:32 | PC.NURSE ---
pt reported increased anxiety, medicated with 0.5mg of Ativan po
[2022-07-30 02:44] LABS: Reflex Lactate? 2 Y
[2022-07-30 03:16] LABS: Hematocrit 37.1 % (42.0-52.0); Hemoglobin 11.7 g/dl (14.0-18.0); Mean Corpuscular HGB Conc 31.5 g/dl (31.0-36.0); Mean Corpuscular Hemoglobin 29.7 pg (27.0-33.0); Mean Corpuscular Volume 94.2 fL (80.0-98.0); Mean Platelet Volume 10.5 fL (9.4-12.4); Platelet Count 193 X10*3/uL (160-400); Red Blood Count 3.94 X10*6/uL (4.60-5.80); White Blood Count 8.4 X10*3/uL (4.8-10.8)
[2022-07-30 03:22] LABS: Anion Gap 19 (12-20); Blood Urea Nitrogen 17 mg/dL (9-16); Calcium 8.8 mg/dL (8.4-10.2); Carbon Dioxide 33 mmol/L (22-29); Chloride 90 mmol/L (96-108); Creatinine Clr Calc Pharmacy 60.7; Estimated Glomerular Filt Rate > 60; Glucose Fasting 333 mg/dL (60-99); Potassium 3.6 mmol/L (3.3-5.1); Sodium 138 mmol/L (135-145)
[2022-07-30 03:26] LABS: Glucose, Whole Blood 323 mg/dL (60-115)
[2022-07-30 03:30] LABS: ~Lactic Acid-LAB USE ONLY 5.2 mmol/L (0.5-2.0)
--- NOTE | 2022-07-30 05:21 | PC.NURSE ---
pt lactic acid 5.2. Dr. Markus ochoa
[2022-07-30] MEDS: Omeprazole 20 MG CAPSULE.DR PO (06:18)
--- NOTE | 2022-07-30 07:00 | CA_ITS ---
Transthoracic Echocardiogram Patient (Last, First, Middle): Fitz Reed G Gender: Male Date of : 1950 Age: 72 Procedure Date: 07/30/2022 Procedure Type: Transthoracic Echocardiogram Location: S3E Height: 167.64 cm Weight: 90.72 kg BSA: 2.00 m2 Heart Rate: bpm BP: 138 / 68 mmHg Checkout Supervisor: TIFFANY Referring MD: Polo Jones MD Symptoms: dyspnea on exertion Study Quality: Fair Conclusions: - Normal left ventricular size and systolic function. There is mildly increased left ventricular wall thickness. The visually estimated ejection fraction is between 65-70%. - E/E prime ratio is between 8 and 15 consistent with indeterminate filling pressures. Reduced GLS at -14%. - Normal right ventricular cavity size and systolic function. - There is mild aortic valve stenosis. Findings Left Ventricle Normal left ventricular size and systolic function. There is mildly increased left ventricular wall thickness. The visually estimated ejection fraction is between 65-70%. There is no evidence of regional wall motion abnormalities. Abnormal diastolic function is noted. Spectral Doppler is indicative of an impaired relaxation filling pattern. E/E prime ratio is between 8 and 15 consistent with indeterminate filling pressures. Reduced GLS at -14%. Right Ventricle Normal right ventricular cavity size and systolic function. Atria The left atrium is normal in size. The right atrium is normal in size. Aortic Valve There is a normal trileaflet aortic valve. There is mild calcification of the aortic valve. There is mild aortic valve stenosis. There is no aortic valve regurgitation. Mitral Valve There is mild mitral annular calcification. Pulmonic Valve Normal pulmonic valve structure and function. There is no pulmonic valve regurgitation. Tricuspid Valve Normal tricuspid valve structure and function. There is trace tricuspid valve regurgitation. The right ventricular systolic pressure is 36 mmHg. Moderately elevated right atrial pressure. Mild pulmonary hypertension is present. Great Vessels There is mild dilatation of the ascending aorta measuring 3.50 cm. Venous The inferior vena cava is dilated and collapses less than 50% with inspiration. Pericardium/Pleural There is no evidence of pericardial effusion. Prior Study Comparison Changes noted compared to prior study dated: 06/27/2018. Mild present. Measurements 2D Linear Measurements IVSd: 1.22 0.6-0.9/0.6-1.0 cm LVIDd: 4.64 3.9-5.3/4.2-5.9 cm LVIDd Index: 2.32 2.4-3.2/2.2-3.1 cm/m2 LVIDs: 2.81 2.0-3.6 cm LVPWd: 1.07 0.7-1.1 cm LA Diam: 3.30 2.7-3.8/3.0-4.0 cm LAIDs Index: 1.65 1.5-2.3 cm/m2 LV Mass: 242.23 67-162/88-224 g LV Mass Index: 121.12 43-95/49-115 g/m2 LVOT Diam: 2.10 3.0+(-)1.3 cm 2D Systolic Function EF 4C: 71.80 >55% EF 2C: 57.40 >55% EF BiP: 65.70 >55% Mitral Valve MV Pk E: 0.86 MV PK A: 1.35 MV Decel Time: 128.00 E/A: 0.60 E'Lateral: 7.07 E'Medial: 5.55 E/E' Med: 15.50 E/E' Lat: 12.20 PHT: 37.00 MVA PHT: 5.95 Decel [place]: 6.76 Aortic Valve AoV Pk Alberto: 2.58 AoV Mn Alberto: 1.80 AoV VTI: 0.44 AoV Pk Grad: 27.00 Aov Mn Grad: 15.00 UMAIR Cont.VTI: 1.89 LVOT LVOT Pk Alberto: 1.41 LVOT Mn Alberto: 0.88 LVOT VTI: 0.24 LVOT Pk Grad: 8.00 LVOT Mn Grad: 4.00 LVOT Diam: 2.10 LVOT Area: 3.46 Diastolic Function MV Pk E: 0.86 MV Pk A: 1.35 E/A: 0.60 E'Medial: 5.55 E/E' Med: 15.50 E' Laterial: 7.07 E/E' Lat: 12.20 Right Ventricle TAPSE (mm): 25.40 TVS' Alberto: 14.00 Tricuspid Valve TR Pk Alberto: 2.29 TR Pk Grad: 21.00 RA Press: 15.00 RVSP: 36.00 Great Vessels Aorta Sinus of Valsalva: 3.65 2.0-3.[address] [place]: 2.87 1.7-3.4 cm Ao Asc: 3.50 2.1-3.4 cm Updated in Other Vendor System with Status of Final Carlitos Meyers MD electronically signed on 07/31/2022 5:11:21 PM with status of Final
[2022-07-30 07:15] LABS: Glucose, Whole Blood 344 mg/dL (60-115)
[2022-07-30] MEDS: methylPREDNISolone Sod Succ 40 MG/ML VIAL IVPUSH (07:39)
[2022-07-30] MEDS: Insulin Lispro 100 UNIT/ML 3 ML VIAL SUBCUT ×4 (07:39→21:20)
[2022-07-30] MEDS: Fluticasone/Vilanterol 200/25 BLST.W.DEV 1 PUFF INHALE (07:57)
[2022-07-30] MEDS: Albuterol/Iprat 2.5/0.5MG 3 ML AMPUL.NEB INHALE ×3 (07:57→22:25)
[2022-07-30 08:30] LABS: Estimated Average Glucose 209 mg/dL; Hemoglobin A1c % 8.9 %
[2022-07-30] MEDS: Thiamine HCL 100 MG TABLET PO (08:59)
[2022-07-30] MEDS: Multivitamin TABLET 1 TAB PO (08:59)
[2022-07-30] MEDS: Calcium + Vitamin D 250 MG TABLET 500 MG PO (08:59)
[2022-07-30] MEDS: Aspirin Enteric Coated 81 MG TABLET.DR PO (08:59)
[2022-07-30] MEDS: Folic Acid 1 MG TABLET PO (08:59)
[2022-07-30] MEDS: Insulin Glargine,Hum.rec.anlog 100 UNIT/ML 10 ML VIAL 10 UNIT SUBCUT (09:00)
--- NOTE | 2022-07-30 10:46 | P.PNIM_ITS ---
Subjective Subjective Date of Service: 07/30/22 Interval History: copd. Review of Systems sob similar( minimum effect ) has cough , no fevers Physical Exam Vital Signs: Vital Signs: Last Vital Signs Temp 97.5 F 07/30/22 09:54 Pulse 111 H 07/30/22 09:54 Resp 20 07/30/22 09:54 BP 138/60 07/30/22 09:54 Pulse Ox 95 07/30/22 09:54 O2 Del Method Nasal Cannula 07/30/22 09:54 O2 Flow Rate 2.5 07/30/22 09:54 Oxygen Flow Rate 2 07/29/22 21:27 BMI result Body Mass Index 32.3 General: AO X 3, Resp:air enrty ? diminished bilateral,b/l wheezing ,mild use of accessory muscles. CVS: S1,S2,RRR GI: soft, non tender, non distended Neuro:? motor grossly intact, alert Psych: appropriate affect, appropriate insight? Objective Data Active Medications Albuterol/Ipratropium (Albuterol/Iprat 2.5/0.5mg 3 Ml Ampul.Neb) 3 ml INHALE RQ4H WHILE AWAKE [facility] Last Admin: 07/30/22 07:57 Dose: 3 ml Documented By: JULIAN Aspirin (Aspirin Enteric Coated 81 Mg Tablet.Dr) 81 mg PO DAILY [facility] Last Admin: 07/30/22 08:59 Dose: 81 mg Documented By: CYNTHIA Atorvastatin Calcium (Atorvastatin Calcium 80 Mg Tablet) 80 mg PO BEDTIME [facility] Azithromycin (Azithromycin 500 Mg Tablet) 500 mg PO Q24H [facility] Calcium Carbonate/Cholecalciferol (Calcium + Vitamin D 250 Mg Tablet) 500 mg PO DAILY [facility] Last Admin: 07/30/22 08:59 Dose: 500 mg Documented By: CYNTHIA Enoxaparin Sodium (Enoxaparin Sodium 40 Mg/0.4 Ml Syringe) 40 mg SUBCUT Q24H [facility] Last Admin: 07/30/22 08:59 Dose: Not Given Documented By: CYNTHIA Non-Admin Reason: Patient Refused Fluticasone/Vilanterol (Fluticasone/Vilanterol 200/25 Blst.W.Dev) 1 puff INHALE RDAILY [facility] Last Admin: 07/30/22 07:57 Dose: 1 puff Documented By: JULIAN Folic Acid (Folic Acid 1 Mg Tablet) 1 mg PO DAILY [facility] Last Admin: 07/30/22 08:59 Dose: 1 mg Documented By: CYNTHIA Glucose (Glucose Gel 15 Gm Gel..Gram.) 15 gm PO Q15M PRN; Protocol PRN Reason: per Hypoglycemia Standing Ord. Dextrose (D10) 250 mls @ 750 mls/hr IV Q15M PRN; Protocol PRN Reason: per Hypoglycemia Standing Ord. Insulin Glargine (Insulin Glargine,Hum.Rec.Anlog 100 Unit/Ml 10 Ml Vial) 15 unit SUBCUT BEDTIME [facility] Last Admin: 07/30/22 03:18 Dose: Not Given Documented By: RIC Non-Admin Reason: Patient Condition Contraindication Insulin Human Lispro (Insulin Lispro 100 Unit/Ml 3 Ml Vial) 0 unit SUBCUT QIDACHS [facility]; Protocol Last Admin: 07/30/22 07:39 Dose: 8 unit Documented By: CYNTHIA Lorazepam (Lorazepam 0.5 Mg Tablet) 0.5 mg PO DAILY PRN PRN Reason: anxiety Last Admin: 07/30/22 02:27 Dose: 0.5 mg Documented By: RIC Methylprednisolone Sodium Succinate (Methylprednisolone Sod Succ 40 Mg/Ml Vial) 40 mg IVPUSH Q12H [facility] Last Admin: 07/30/22 07:39 Dose: 40 mg Documented By: CYNTHIA Multivitamins/Vitamin C (Multivitamin Tablet) 1 tab PO DAILY [facility] Last Admin: 07/30/22 08:59 Dose: 1 tab Documented By: CYNTHIA Omeprazole (Omeprazole 20 Mg [place].) 20 mg PO DAILY@0630 [facility] Last Admin: 07/30/22 06:18 Dose: 20 mg Documented By: RIC Thiamine HCl (Thiamine Hcl 100 Mg Tablet) 100 mg PO DAILY [facility] Last Admin: 07/30/22 08:59 Dose: 100 mg Documented By: CYNTHIA Labs 07/30/22 03:00 07/30/22 03:00 Labs: Laboratory Results - last 24 hr 07/29/22 07/29/22 07/29/22 22:17 22:17 22:17 MCV 93.0 MCH 29.1 MCHC 31.3 RDW 13.0 Plt Count 191 MPV 10.5 Immature Gran % (Auto) 0.5 H Neut % (Auto) 72.8 Lymph % (Auto) 13.6 L Hill % (Auto) 9.7 Eos % (Auto) 2.6 Baso % (Auto) 0.8 Lymph # (Auto) 0.9 L Hill # (Auto) 0.6 Eos # (Auto) 0.2 Baso # (Auto) 0.1 Abs Immat Gran (auto) 0.03 Absolute Neuts (auto) 4.7 Absolute Nucleated RBC 0.000 Nucleated RBC % (auto) 0.0 PT 10.5 INR 0.9 D-Dimer High Sensitivty VBG pH VBG pCO2 VBG pO2 VBG HCO3 VBG O2 Saturation VBG Base Excess Anion Gap 14 Estim Creat Clear Calc 61.7 Estimated GFR > 60 POC Glucose Random Glucose 416 H* Fasting Glucose Estimat Average Glucose Hemoglobin A1c % Lactic Acid Lactic Acid F/U @ 2Hr Lactic Acid F/U @ 4Hr Calcium 9.5 Total Bilirubin 0.5 AST 18 ALT 22 Alkaline Phosphatase 97 Troponin I High Sens B-Natriuretic Peptide Total Protein 6.5 Albumin 4.1 COVID-19 ([facility]) [employer] 07/29/22 07/29/22 07/29/22 22:17 22:17 22:17 MCV MCH MCHC RDW Plt Count MPV Immature Gran % (Auto) Neut % (Auto) Lymph % (Auto) Hill % (Auto) Eos % (Auto) Baso % (Auto) Lymph # (Auto) Hill # (Auto) Eos # (Auto) Baso # (Auto) Abs Immat Gran (auto) Absolute Neuts (auto) Absolute Nucleated RBC Nucleated RBC % (auto) PT INR D-Dimer High Sensitivty VBG pH VBG pCO2 VBG pO2 VBG HCO3 VBG O2 Saturation VBG Base Excess Anion Gap Estim Creat Clear Calc Estimated GFR POC Glucose Random Glucose Fasting Glucose Estimat Average Glucose Hemoglobin A1c % Lactic Acid 2.7 H* Lactic Acid F/U @ 2Hr Lactic Acid F/U @ 4Hr Calcium Total Bilirubin AST ALT Alkaline Phosphatase Troponin I High Sens 5.0 B-Natriuretic Peptide Total Protein Albumin COVID-19 ([facility]) Negative [employer] See Note 07/29/22 07/29/22 07/29/22 22:17 22:17 22:23 MCV MCH MCHC RDW Plt Count MPV Immature Gran % (Auto) Neut % (Auto) Lymph % (Auto) Hill % (Auto) Eos % (Auto) Baso % (Auto) Lymph # (Auto) Hill # (Auto) Eos # (Auto) Baso # (Auto) Abs Immat Gran (auto) Absolute Neuts (auto) Absolute Nucleated RBC Nucleated RBC % (auto) PT INR D-Dimer High Sensitivty 281 VBG pH 7.36 VBG pCO2 88 VBG pO2 38 VBG HCO3 50 H VBG O2 Saturation 59.0 VBG Base Excess 19.8 Anion Gap Estim Creat Clear Calc Estimated GFR POC Glucose Random Glucose Fasting Glucose Estimat Average Glucose Hemoglobin A1c % Lactic Acid Lactic Acid F/U @ 2Hr Lactic Acid F/U @ 4Hr Calcium Total Bilirubin AST ALT Alkaline Phosphatase Troponin I High Sens B-Natriuretic Peptide 11 Total Protein Albumin COVID-19 ([facility]) [employer] 07/29/22 07/30/22 07/30/22 23:03 00:32 03:00 MCV 94.2 MCH 29.7 MCHC 31.5 RDW 13.0 Plt Count 193 MPV 10.5 Immature Gran % (Auto) Neut % (Auto) Lymph % (Auto) Hill % (Auto) Eos % (Auto) Baso % (Auto) Lymph # (Auto) Hill # (Auto) Eos # (Auto) Baso # (Auto) Abs Immat Gran (auto) Absolute Neuts (auto) Absolute Nucleated RBC 0.000 Nucleated RBC % (auto) 0.0 PT INR D-Dimer High Sensitivty VBG pH VBG pCO2 VBG pO2 VBG HCO3 VBG O2 Saturation VBG Base Excess Anion Gap Estim Creat Clear Calc Estimated GFR POC Glucose 338 H Random Glucose Fasting Glucose Estimat Average Glucose Hemoglobin A1c % Lactic Acid Lactic Acid F/U @ 2Hr 4.0 H* Lactic Acid F/U @ 4Hr Calcium Total Bilirubin AST ALT Alkaline Phosphatase Troponin I High Sens B-Natriuretic Peptide Total Protein Albumin COVID-19 ([facility]) [employer] 07/30/22 07/30/22 07/30/22 03:00 03:00 03:00 MCV MCH MCHC RDW Plt Count MPV Immature Gran % (Auto) Neut % (Auto) Lymph % (Auto) Hill % (Auto) Eos % (Auto) Baso % (Auto) Lymph # (Auto) Hill # (Auto) Eos # (Auto) Baso # (Auto) Abs Immat Gran (auto) Absolute Neuts (auto) Absolute Nucleated RBC Nucleated RBC % (auto) PT INR D-Dimer High Sensitivty VBG pH VBG pCO2 VBG pO2 VBG HCO3 VBG O2 Saturation VBG Base Excess Anion Gap 19 Estim Creat Clear Calc 60.7 Estimated GFR > 60 POC Glucose Random Glucose Fasting Glucose 333 H Estimat Average Glucose 209 Hemoglobin A1c % 8.9 Lactic Acid Lactic Acid F/U @ 2Hr Lactic Acid F/U @ 4Hr 5.2 H* Calcium 8.8 D Total Bilirubin AST ALT Alkaline Phosphatase Troponin I High Sens B-Natriuretic Peptide Total Protein Albumin COVID-19 ([facility]) [employer] 07/30/22 07/30/22 03:23 07:12 MCV MCH MCHC RDW Plt Count MPV Immature Gran % (Auto) Neut % (Auto) Lymph % (Auto) Hill % (Auto) Eos % (Auto) Baso % (Auto) Lymph # (Auto) Hill # (Auto) Eos # (Auto) Baso # (Auto) Abs Immat Gran (auto) Absolute Neuts (auto) Absolute Nucleated RBC Nucleated RBC % (auto) PT INR D-Dimer High Sensitivty VBG pH VBG pCO2 VBG pO2 VBG HCO3 VBG O2 Saturation VBG Base Excess Anion Gap Estim Creat Clear Calc Estimated GFR POC Glucose 323 H 344 H Random Glucose Fasting Glucose Estimat Average Glucose Hemoglobin A1c % Lactic Acid Lactic Acid F/U @ 2Hr Lactic Acid F/U @ 4Hr Calcium Total Bilirubin AST ALT Alkaline Phosphatase Troponin I High Sens B-Natriuretic Peptide Total Protein Albumin COVID-19 ([facility]) COVID-19 [employer] Assessment and Plan (1) Acute on chronic respiratory failure with hypoxia and hypercapnia: Status: Resolved (2) COPD exacerbation: Status: Resolved (3) Hyperglycemia: Status: Acute (4) Acute on chronic respiratory failure with hypoxia and hypercapnia: Status: Acute Plan 72-year-old male with a PMH significant for?asthma/COPD overlap, chronic hypoxemic and hypercapnic respiratory failure, hepatic cirrhosis, hx of alcohol abuse, former smoker who quit 16 years ago, anxiety, HLD, HTN, and hx of left lung cancer?s/p chemo and radiation 10 years ago who presents to the ED with?increasing shortness of breath since last discharge 2 weeks ago. Pt will be admitted to the hospital acute on chronic hypoxemic hypercapnic respiratory failure secondary to COPD exacerbation. Acute on chronic hypoxemic hypercapnic respiratory failure secondary to COPD exacerbation some minimum improvement , less shortness of breath and cough. Patient on 2.5 to 3 L supplemental O2 at baseline VBG with pH of 7.33, pCO2 79, PO2 32, HC03 42, at baseline CXR negative for pneumonia, negative for COVID Continue home inhalers,steriods ,theophylline,azithromycin recommend outpatient follow-up for retrial of BiPAP Dysuria x2 weeks, UA negative, symptoms improved HTN-stable BP, hold home meds. CAD/HLD: Continue aspirin, atorvastatin, isosorbide mononitrate, and metoprolol Non insulin dependent diabetes with hyperglycemia-possible steriod use might be contributing check Hba1c levels continue insulin sliding scale, diabetic diet and glipizide. Mood disorder Continue home meds Normocytic anemia, chronic H&H at baseline, stable Full Code DVT Prophylaxis: Lovenox need for continued hospitilsation:?acute on chronic hypoxemic hypercapnic respiratory failure secondary to COPD exacerbation-need nebs, steriods , antibiotics ,oxygen support ,respiratory status is not optimal yets. Time Spent With Patient Time: Total time managing care of this patient today ____ minutes. Quality Stroke Does the patient have a stroke diagnosis?: No VTE Prior VTE?: No VTE Risk Level:: Medical - moderate - high VTE Device Contraindication: Treatment Not Indicated VTE Drug Contraindication: N/A - Med Ordered
--- NOTE | 2022-07-30 11:20 | MHC.CM.PN ---
pt lives with and grandson is not covid vax has own ride home dc plan homem no servceis
[2022-07-30 11:37] LABS: Glucose, Whole Blood 369 mg/dL (60-115)
--- NOTE | 2022-07-30 14:02 | P.CONPL_ITS ---
History of Present Illness History of Present Illness Consult date: 07/30/22 Requesting physician: Jose Aparicio Chief complaint: COPD Narrative: 72-year-old gentleman, former 60+ pack-year smoker, quit 2004, with underlying history severe supplemental oxygen 2-3 L dependent COPD with CO2 retention, followed by Dr. 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 Patient was deemed to have exacerbation of underlying COPD and/or community-acquired pneumonia, started on empiric antibiotics and admitted to general medical oliver. Today patient denies productive cough, but continues to complain of significant dyspnea on exertion and also worsening lower extremity edema. Review of Systems Constitutional: Constitutional: Denies daytime sleepiness, Denies excessive sweating, Denies fatigue, Denies fever(s), Denies lethargy, Denies malaise, Denies night sweats, Denies snoring and Denies weight loss Eyes: Eyes: Denies blurry vision and Denies itchy eyes ENT: Denies nasal congestion, Denies post nasal drip, Denies sinus pain, Denies sinus pressure and Denies other ( Thrush) Cardiovascular: Cardiovascular: Denies chest pain, Reports pedal edema, Reports leg edema, Denies dyspnea, Reports dyspnea on exertion, Denies orthopnea and Denies paroxysmal nocturnal dyspnea Respiratory: Respiratory: Reports cough, Denies hemoptysis, Denies excessive phlegm production, Denies dyspnea, Reports dyspnea on exertion, Denies snoring and Denies wheezing Gastrointestinal: Gastrointestinal: Denies abdominal pain and Denies heartburn Musculoskeletal: Musculoskeletal: Denies myalgias, Denies arthralgias and Denies joint swelling Integumentary/Breasts: Skin/Breast: Denies rash Neurologic: Denies memory loss and Denies seizure-like activity Psychiatric: Psychiatric: Denies abnormal sleep pattern, Denies anxiety and Denies memory loss Endocrine: Endocrine: Denies excessive sweating, Denies fatigue and Denies heat intolerance Hematologic/Lymphatic: Hematologic/Lymphatic: Denies easy bruising Allergic/Immunologic: Allergic/Immunologic: Denies itchy eyes, Denies seasonal rhinorrhea and Denies wheezing PMFSH Past Medical History Medical History Acute on chronic respiratory failure with hypoxia and hypercapnia Anemia Asthma Bacteremia due to Enterococcus Chronic lung disease Chronic lung disease Chronic respiratory failure Chronic respiratory failure with hypoxia and hypercapnia COPD exacerbation COPD, severe Diabetes mellitus with hyperglycemia, without long-term current use of insulin Dyslipidemia Generalized anxiety disorder History of pneumonia HTN (hypertension) Hyperlipemia Lung cancer Radiation fibrosis of lung Skin cancer Urinary incontinence Family History Family History Father Medical history non-contributory Mother Medical history non-contributory Unknown family medical history Lung collapse Brother No problems noted. Brother No problems noted. Son Substance use disorder Son No problems noted. Daughter No problems noted. Sister No problems noted. Sister No problems noted. Sister No problems noted. Sister No problems noted. Other HTN (hypertension) Surgical History Surgical History History of esophagogastroduodenoscopy (EGD) Hx of colonoscopy Hx of heart artery stent Social History Social History Household Members: Family Household Members Other:: grandson Housing: House Are you a primary youth care worker to a significant other at home: No Do you presently have visiting nurse or other home services: No Alcohol intake: former Patient Tobacco Use Status: Former Tobacco user e-Cigarette/Vaping Use: Never Used Advance Directives Date on File: 06/08/22 service: No Current occupational status: retired Cognitive needs: No Hearing needs: No Vision needs: No Meds Allergies Allergy/AdvReac Type Severity Reaction Status Date / Time fluticasone furoate Allergy Intermediate rash Verified 07/29/22 21:27 [From Trelegy Ellipta] vilanterol Allergy Intermediate rash Verified 07/29/22 21:27 [From Trelegy Ellipta] umeclidinium Allergy Unknown hives Verified 07/29/22 21:27 [Incruse Ellipta] lasix AdvReac Intermediate Hallucinati Uncoded 06/30/22 04:11 ons Active Medications: Current Medications Albuterol/Ipratropium (Albuterol/Iprat 2.5/0.5mg 3 Ml Ampul.Neb) 3 ml INHALE RQ4H WHILE AWAKE [facility] Last Admin: 07/30/22 11:29 Dose: 3 ml Aspirin (Aspirin Enteric Coated 81 Mg Tablet.) 81 mg PO DAILY [facility] Last Admin: 07/30/22 08:59 Dose: 81 mg Atorvastatin Calcium (Atorvastatin Calcium 80 Mg Tablet) 80 mg PO BEDTIME [facility] Calcium Carbonate/Cholecalciferol (Calcium + Vitamin D 250 Mg Tablet) 500 mg PO DAILY [facility] Last Admin: 07/30/22 08:59 Dose: 500 mg Enoxaparin Sodium (Enoxaparin Sodium 40 Mg/0.4 Ml Syringe) 40 mg SUBCUT Q24H [facility] Last Admin: 07/30/22 08:59 Dose: Not Given Fluticasone/Vilanterol (Fluticasone/Vilanterol 200/25 Blst.W.Dev) 1 puff INHALE RDAILY [facility] Last Admin: 07/30/22 07:57 Dose: 1 puff Folic Acid (Folic Acid 1 Mg Tablet) 1 mg PO DAILY [facility] Last Admin: 07/30/22 08:59 Dose: 1 mg Furosemide (Furosemide 40 Mg/4 Ml Vial) 40 mg IVPUSH BID@0900,1800 [facility]; Protocol Glucose (Glucose Gel 15 Gm Gel..Gram.) 15 gm PO Q15M PRN; Protocol PRN Reason: per Hypoglycemia Standing Ord. Dextrose (D10) 250 mls @ 750 mls/hr IV Q15M PRN; Protocol PRN Reason: per Hypoglycemia Standing Ord. Insulin Glargine (Insulin Glargine,Hum.Rec.Anlog 100 Unit/Ml 10 Ml Vial) 15 unit SUBCUT BEDTIME [facility] Last Admin: 07/30/22 03:18 Dose: Not Given Insulin Human Lispro (Insulin Lispro 100 Unit/Ml 3 Ml Vial) 0 unit SUBCUT QIDACHS [facility]; Protocol Last Admin: 07/30/22 11:42 Dose: 10 unit Lorazepam (Lorazepam 0.5 Mg Tablet) 0.5 mg PO DAILY PRN PRN Reason: anxiety Last Admin: 07/30/22 02:27 Dose: 0.5 mg Multivitamins/Vitamin C (Multivitamin Tablet) 1 tab PO DAILY [facility] Last Admin: 07/30/22 08:59 Dose: 1 tab Omeprazole (Omeprazole 20 Mg Capsule.) 20 mg PO DAILY@0630 [facility] Last Admin: 07/30/22 06:18 Dose: 20 mg Thiamine HCl (Thiamine Hcl 100 Mg Tablet) 100 mg PO DAILY [facility] Last Admin: 07/30/22 08:59 Dose: 100 mg Home Medications Medication Instructions Recorded Confirmed Last Taken Type albuterol sulfate 90 mcg/actuation 2 puff PO Q4H PRN Shortness Of 01/14/20 07/29/22 07/29/22 18:00 History aerosol inhaler Breath Or Wheezing ipratropium 0.5 mg-albuterol 3 mg 3 ml inhalation Q6H PRN COPD 01/14/20 07/29/22 07/29/22 08:00 History (2.5 mg base)/3 mL nebulization soln budesonide-formoterol HFA 160 2 puff inhalation DAILY 03/14/21 07/29/22 07/29/22 08:00 History mcg-4.5 mcg/actuation aerosol inhaler (Symbicort) isosorbide mononitrate 30 mg 30 mg PO DAILY 03/14/21 07/29/22 07/29/22 08:00 History tablet,extended release 24 hr aspirin 81 mg tablet,delayed 81 mg PO DAILY 08/04/21 07/29/22 07/28/22 08:00 History release calcium carbonate 600 mg-vitamin 1 tab PO DAILY 08/04/21 07/29/22 07/28/22 08:00 History D3 10 mcg (400 unit) tablet omeprazole 20 mg capsule,delayed 20 mg PO DAILY@0630 11/28/21 07/29/22 07/29/22 08:00 History release escitalopram oxalate 20 mg tablet 10 mg PO DAILY 06/07/22 07/30/22 06/07/22 History glipizide 5 mg tablet 5 mg PO DAILY@1700 06/07/22 07/29/22 07/29/22 08:00 History Oxygen Home Use 06/14/22 06/25/22 Unknown History nebulizers 06/14/22 06/25/22 Unknown History Physical Exam Vital Signs: Vital Signs: Last Vital Signs Temp 97.5 F 07/30/22 09:54 Pulse 114 H 07/30/22 11:30 Resp 18 07/30/22 11:30 BP 138/60 07/30/22 09:54 Pulse Ox 95 07/30/22 09:54 O2 Del Method Nasal Cannula 07/30/22 09:54 O2 Flow Rate 2.5 07/30/22 09:54 Oxygen Flow Rate 2 07/29/22 21:27 BMI result Body Mass Index 32.3 Const: General: no acute distress and alert Nutritional Appearance: not obese Orientation/consciousness: Other orientation findings ( oriented) HEENT: Head: Yes atraumatic Mouth: no other ( thrush) Throat: No postnasal drainage Eyes: General: appearance normal, both eyes and all related structures Sclerae: sclerae normal EOM: EOMs intact bilaterally Neck: Neck: Yes supple Lymphatic: no lymphadenopathy noted Resp: Effort & Inspection: normal respiratory effort and no use of accessory muscles Auscultation: crackles (Bibasilar) Cardio: Rate: regular rate Rhythm: regular rhythm Heart sounds: no gallops, no murmurs and no rubs GI: Palpation (GI): Soft to palpation and Other GI palpation findings present ( nontender) Skin: General skin exam: other ( warm) Rashes: no rashes Extrem: General: No clubbing, No cyanosis and No edema Results Laboratory Findings 07/30/22 03:00 07/30/22 03:00 ABG, PT/INR, D-dimer: PT/INR, D-dimer PT 10.5 SEC (10.0-13.1) 07/29/22 22:17 INR 0.9 (0.9-1.1) 07/29/22 22:17 Abnormal lab findings: Abnormal Labs 07/29/22 07/29/22 07/29/22 22:17 22:17 22:17 RBC 4.13 L Hgb 12.0 L Hct 38.4 L Immature Gran % (Auto) 0.5 H Lymph % (Auto) 13.6 L Lymph # (Auto) 0.9 L VBG HCO3 Chloride 87 L Carbon Dioxide 41 H* BUN POC Glucose Random Glucose 416 H* Fasting Glucose Lactic Acid 2.7 H* Lactic Acid F/U @ 2Hr Lactic Acid F/U @ 4Hr 07/29/22 07/29/22 07/30/22 22:23 23:03 00:32 RBC Hgb Hct Immature Gran % (Auto) Lymph % (Auto) Lymph # (Auto) VBG HCO3 50 H Chloride Carbon Dioxide BUN POC Glucose 338 H Random Glucose Fasting Glucose Lactic Acid Lactic Acid F/U @ 2Hr 4.0 H* Lactic Acid F/U @ 4Hr 07/30/22 07/30/22 07/30/22 03:00 03:00 03:00 RBC 3.94 L Hgb 11.7 L Hct 37.1 L Immature Gran % (Auto) Lymph % (Auto) Lymph # (Auto) VBG HCO3 Chloride 90 L Carbon Dioxide 33 H BUN 17 H POC Glucose Random Glucose Fasting Glucose 333 H Lactic Acid Lactic Acid F/U @ 2Hr Lactic Acid F/U @ 4Hr 5.2 H* 07/30/22 07/30/22 07/30/22 03:23 07:12 11:26 RBC Hgb Hct Immature Gran % (Auto) Lymph % (Auto) Lymph # (Auto) VBG HCO3 Chloride Carbon Dioxide BUN POC Glucose 323 H 344 H 369 H* Random Glucose Fasting Glucose Lactic Acid Lactic Acid F/U @ 2Hr Lactic Acid F/U @ 4Hr Assessment and Plan (1) Acute on chronic respiratory failure with hypoxia and hypercapnia: Status: Acute (2) COPD, severe: Status: Acute (3) Radiation fibrosis of lung: Status: Acute Plan Impression: 72-year-old gentleman with underlying COPD, remote lung cancer status post XRT/chemo admitted with acute on chronic hypoxic respiratory failure on the background of chronic hypercapnic respiratory failure. Recommendations: Will obtain 2D echocardiogram to evaluate cardiac component. Will obtain CT chest to evaluate changes in on parenchyma. Will start on empiric diuresis. Case discussed with Dr. Gutierrez Time Spent With Patient Time: Total time managing care of this patient today ____ minutes. Procedures Date of Service Date of Service: 07/30/22
[2022-07-30] MEDS: LORazepam 2 MG/ML VIAL 1 MG IVPUSH (14:33)
[2022-07-30] MEDS: acetaZOLAMIDE sodium 500 MG VIAL IVPUSH ×2 (16:33→20:03)
[2022-07-30 16:39] LABS: Glucose, Whole Blood 252 mg/dL (60-115)
[2022-07-30] MEDS: Atorvastatin Calcium 80 MG TABLET PO (20:03)
[2022-07-30] MEDS: polyethylene glycoL 3350 17 GM POWD.PACK PO (20:03)
[2022-07-30 20:07] LABS: Glucose, Whole Blood 243 mg/dL (60-115)
[2022-07-30] MEDS: Melatonin 3 MG TABLET 6 MG PO (21:19)
[2022-07-30] MEDS: Insulin Glargine,Hum.rec.anlog 100 UNIT/ML 10 ML VIAL 15 UNIT SUBCUT (21:21)
[2022-07-30] MEDS: cefTRIAXone sodium 1 GM in 0.9 % Sodium Chloride 50 ML IV (21:25)
[2022-07-30] MEDS: diphenhydrAMINE HCL 50 MG/ML VIAL IVPUSH (22:55)
[2022-07-31] VITALS (8 sets, daily range): BP systolic 105–129; BP diastolic 59–69; PULSE 91–108; RESP 15–24; TEMP 36.3–36.4; O2SAT 94–97
[2022-07-31 07:40] LABS: Glucose, Whole Blood 211 mg/dL (60-115)
[2022-07-31] MEDS: acetaZOLAMIDE sodium 500 MG VIAL IVPUSH ×2 (07:50→22:24)
[2022-07-31] MEDS: Calcium + Vitamin D 250 MG TABLET 500 MG PO (07:51)
[2022-07-31] MEDS: Thiamine HCL 100 MG TABLET PO (07:51)
[2022-07-31] MEDS: Aspirin Enteric Coated 81 MG TABLET.DR PO (07:51)
[2022-07-31] MEDS: Multivitamin TABLET 1 TAB PO (07:51)
[2022-07-31] MEDS: Folic Acid 1 MG TABLET PO (07:51)
[2022-07-31] MEDS: Insulin Lispro 100 UNIT/ML 3 ML VIAL SUBCUT ×4 (07:52→22:21)
[2022-07-31] MEDS: Albuterol/Iprat 2.5/0.5MG 3 ML AMPUL.NEB INHALE ×4 (08:26→19:22)
[2022-07-31] MEDS: Fluticasone/Vilanterol 200/25 BLST.W.DEV 1 PUFF INHALE (08:26)
--- NOTE | 2022-07-31 08:46 | P.PNIM_ITS ---
Subjective Subjective Date of Service: 07/31/22 Interval History: copd exacerbation interval history: feels better, not optimal Physical Exam Vital Signs: Vital Signs: Last Vital Signs Temp 97.6 F 07/31/22 07:36 Pulse 93 07/31/22 08:27 Resp 18 07/31/22 08:27 BP 126/69 07/31/22 07:36 Pulse Ox 95 07/31/22 07:36 O2 Del Method Nasal Cannula 07/31/22 07:36 O2 Flow Rate 2.5 07/31/22 07:36 Oxygen Flow Rate 2 07/29/22 21:27 BMI result Body Mass Index 32.3 Const: Other: General: AO X 3, no acute distress Resp: rales at right base CVS: S1,S2,RRR GI: +BS, NT, no distention Skin: No rash Neuro: motor grossly intact Psych: appropriate affect Objective Data Active Medications Acetazolamide (Acetazolamide Sodium 500 Mg Vial) 500 mg IVPUSH BID [facility] Last Admin: 07/31/22 07:50 Dose: 500 mg Documented By: DURAN Albuterol/Ipratropium (Albuterol/Iprat 2.5/0.5mg 3 Ml Ampul.Neb) 3 ml INHALE RQ4H WHILE AWAKE [facility] Last Admin: 07/31/22 08:26 Dose: 3 ml Documented By: FUENTES Aspirin (Aspirin Enteric Coated 81 Mg Tablet.Dr) 81 mg PO DAILY [facility] Last Admin: 07/31/22 07:51 Dose: 81 mg Documented By: DURAN Atorvastatin Calcium (Atorvastatin Calcium 80 Mg Tablet) 80 mg PO BEDTIME [facility] Last Admin: 07/30/22 20:03 Dose: 80 mg Documented By: ALEX Calcium Carbonate/Cholecalciferol (Calcium + Vitamin D 250 Mg Tablet) 500 mg PO DAILY [facility] Last Admin: 07/31/22 07:51 Dose: 500 mg Documented By: DURAN Enoxaparin Sodium (Enoxaparin Sodium 40 Mg/0.4 Ml Syringe) 40 mg SUBCUT Q24H [facility] Last Admin: 07/31/22 07:57 Dose: Not Given Documented By: DURAN Non-Admin Reason: Patient Refused Fluticasone/Vilanterol (Fluticasone/Vilanterol 200/25 Blst.W.Dev) 1 puff INHALE RDAILY [facility] Last Admin: 07/31/22 08:26 Dose: 1 puff Documented By: FUENTES Folic Acid (Folic Acid 1 Mg Tablet) 1 mg PO DAILY [facility] Last Admin: 07/31/22 07:51 Dose: 1 mg Documented By: DURAN Glucose (Glucose Gel 15 Gm Gel..Gram.) 15 gm PO Q15M PRN; Protocol PRN Reason: per Hypoglycemia Standing Ord. Dextrose (D10) 250 mls @ 750 mls/hr IV Q15M PRN; Protocol PRN Reason: per Hypoglycemia Standing Ord. Ceftriaxone Sodium 1 gm/ (Sodium Chloride) 50 mls @ 100 mls/hr IV Q24H [facility] Last Infusion: 07/30/22 21:59 Dose: 0 mls/hr Documented By: ALEX Insulin Glargine (Insulin Glargine,Hum.Rec.Anlog 100 Unit/Ml 10 Ml Vial) 15 unit SUBCUT BEDTIME [facility] Last Admin: 07/30/22 21:21 Dose: 15 unit Documented By: ALEX Insulin Human Lispro (Insulin Lispro 100 Unit/Ml 3 Ml Vial) 0 unit SUBCUT QIDACHS [facility]; Protocol Last Admin: 07/31/22 07:52 Dose: 2 unit Documented By: DURAN Lorazepam (Lorazepam 0.5 Mg Tablet) 0.5 mg PO DAILY PRN PRN Reason: anxiety Last Admin: 07/30/22 21:45 Dose: 0.5 mg Documented By: ALEX Comments: Dr. Riddle OK'd to give early Melatonin (Melatonin 3 Mg Tablet) 6 mg PO BEDTIME PRN PRN Reason: insomnia Last Admin: 07/30/22 21:19 Dose: 6 mg Documented By: ALEX Multivitamins/Vitamin C (Multivitamin Tablet) 1 tab PO DAILY [facility] Last Admin: 07/31/22 07:51 Dose: 1 tab Documented By: DURAN Omeprazole (Omeprazole 20 Mg Capsule.) 20 mg PO DAILY@0630 [facility] Last Admin: 07/31/22 06:41 Dose: Not Given Documented By: FARIDA Non-Admin Reason: asleep, asked to not be awakened Thiamine HCl (Thiamine Hcl 100 Mg Tablet) 100 mg PO DAILY [facility] Last Admin: 07/31/22 07:51 Dose: 100 mg Documented By: DURAN Labs 07/30/22 03:00 07/30/22 03:00 Labs: Laboratory Results - last 24 hr 07/30/22 07/30/22 07/30/22 11:26 16:35 19:59 POC Glucose 369 H* 252 H 243 H 07/31/22 07:35 POC Glucose 211 H Microbiology Microbiology Results: Microbiology 07/29/22 22:20 Blood Culture - Preliminary Blood - Venous No growth after 24 hours. 07/29/22 22:20 Blood Culture - Preliminary Blood - Venous No growth after 24 hours. Assessment and Plan (1) Acute on chronic respiratory failure with hypoxia and hypercapnia: Status: Acute Plan 72-year-old male with a PMH significant for?asthma/COPD overlap, chronic hypoxemic and hypercapnic respiratory failure, hepatic cirrhosis, hx of alcohol abuse, former smoker who quit 16 years ago, anxiety, HLD, HTN, and hx of left margi ng cancer?s/p chemo and radiation 10 years ago who presents to the ED with?increasing shortness of breath since last discharge 2 weeks ago. Pt will be admitted to the hospital acute on chronic hypoxemic hypercapnic respiratory failure secondary to COPD exacerbation. Acute on chronic hypoxemic hypercapnic respiratory failure secondary to COPD exacerbation, overall better continue O2, broncholdilators and Prednisone 10 daily Dysuria x2 weeks, UA negative, symptoms improved HTN-on lower side, hold home meds CAD/HLD--Continue aspirin, atorvastatin, isosorbide mononitrate, and metoprolol Non insulin dependent diabetes with hyperglycemia-possible steriod use might be contributing check Hba1c levels continue insulin sliding scale, diabetic diet and glipizide. Mood disorder Continue home meds Normocytic anemia, chronic H&H at baseline, stable Full Code DVT Prophylaxis: Lovenox need for continued hospitilsation:?acute on chronic hypoxemic hypercapnic respiratory failure secondary to COPD exacerbation-need nebs, steriods , antibiotics ,oxygen support ,respiratory status is not optimal yets. Time Spent With Patient Time: Total time managing care of this patient today ____ minutes. Quality Stroke Does the patient have a stroke diagnosis?: No VTE Prior VTE?: No VTE Risk Level:: Medical - moderate - high VTE Device Contraindication: Treatment Not Indicated VTE Drug Contraindication: N/A - Med Ordered
[2022-07-31 11:21] LABS: Glucose, Whole Blood 288 mg/dL (60-115)
--- NOTE | 2022-07-31 14:32 | PC.NURSE ---
Pt reqeusting BM medications, MD notified.
[2022-07-31] MEDS: polyethylene glycoL 3350 17 GM POWD.PACK PO (16:04)
[2022-07-31 16:28] LABS: Glucose, Whole Blood 372 mg/dL (60-115)
--- NOTE | 2022-07-31 16:35 | PC.NURSE ---
notified of FBS
[2022-07-31] MEDS: LORazepam 0.5 MG TABLET PO (18:16)
[2022-07-31 20:08] LABS: Glucose, Whole Blood 312 mg/dL (60-115)
[2022-07-31] MEDS: Atorvastatin Calcium 80 MG TABLET PO (22:20)
[2022-07-31] MEDS: Insulin Glargine,Hum.rec.anlog 100 UNIT/ML 10 ML VIAL 15 UNIT SUBCUT (22:20)
[2022-07-31] MEDS: cefTRIAXone sodium 1 GM in 0.9 % Sodium Chloride 50 ML IV (22:22)
[2022-08-01] VITALS (8 sets, daily range): BP systolic 108–145; BP diastolic 65–69; PULSE 91–110; RESP 16–18; TEMP 36.1–36.3; O2SAT 94–99
[2022-08-01] MEDS: Melatonin 3 MG TABLET 6 MG PO (01:40)
[2022-08-01] MEDS: Omeprazole 20 MG CAPSULE.DR PO (05:54)
[2022-08-01 07:32] LABS: Glucose, Whole Blood 173 mg/dL (60-115)
[2022-08-01] MEDS: Albuterol/Iprat 2.5/0.5MG 3 ML AMPUL.NEB INHALE ×3 (08:00→19:34)
[2022-08-01] MEDS: Fluticasone/Vilanterol 200/25 BLST.W.DEV 1 PUFF INHALE (08:01)
[2022-08-01] MEDS: Insulin Lispro 100 UNIT/ML 3 ML VIAL SUBCUT ×4 (08:55→20:32)
[2022-08-01] MEDS: Aspirin Enteric Coated 81 MG TABLET.DR PO (08:56)
[2022-08-01] MEDS: Multivitamin TABLET 1 TAB PO (08:57)
[2022-08-01] MEDS: Calcium + Vitamin D 250 MG TABLET 500 MG PO (08:57)
[2022-08-01] MEDS: Thiamine HCL 100 MG TABLET PO (08:57)
[2022-08-01] MEDS: Folic Acid 1 MG TABLET PO (08:57)
[2022-08-01] MEDS: LORazepam 0.5 MG TABLET PO (09:12)
[2022-08-01] MEDS: acetaZOLAMIDE sodium 500 MG VIAL IVPUSH ×2 (09:13→21:04)
--- NOTE | 2022-08-01 10:08 | PM.DS ---
DS: Providers Provider Date of Service: 08/01/22 Date of admission: 07/29/22 23:53 Primary care physician: Anne-Marie Muro MD Consults: 07/30/22 08:00 Consult to Pulmonology Routine Consulting Provider: [facility] Reason for consultation: acute hypoxemic respirtaory failure /copd Has provider been notified: No DS: Diagnosis Discharge Diagnosis (1) Acute on chronic respiratory failure with hypoxia and hypercapnia: Status: Acute DS: Summary Hospital Course Hospital Course: Chief Complaint: sob 72M PMH severe persistent asthma/COPD overlap, chronic hypoxemic and hypercapnic respiratory failure, hepatic steatosis, etoh dependence, former smoker who quit 16 years ago, anxiety, HLD, HTN, and hx of left lung cancer?s/p chemo and radiation 10 years ago who presented to the ED with?increasing shortness of breath. patient reports 2-3 days? worsening cough, unable to bring up phlegm, inctreasing o2 requirements, inability to tolerate baseline exertion due to sob. in ED found to be hypoxic to 88% on @L, cxr unremarkable, vbg with at baseline 7.36, pco2 88. Hospital course: Acute on chronic hypoxemic hypercapnic respiratory failure secondary to COPD exacerbation. He was treated with oxygen, bronchodilators and steroid and was evaluated by pulmonology and recommends diuresis as well, and overall is doing better, there is no hypoxia, will discharge with Prednisone for few more days, to continue home O2 and visisiting nurse services upon discharge Dysuria x2 weeks, UA negative, symptoms improved HTN--resume home medication CAD/HLD--Continue aspirin, atorvastatin, isosorbide mononitrate, and metoprolol Non insulin dependent diabete, resume home medication Mood disorder Continue home meds Normocytic anemia, chronic H&H at baseline, stable Time Spent with Patient Time attestation: Total time managing care of this patient today ____ minutes. Discharge coordination time: Greater than 30 minutes Quality: Safe Use of Opioids Does Pt have an Active Cancer Diagnosis on the Problem List?: No Quality: Stroke Does the patient have a stroke diagnosis?: No Physical Exam Vital Signs: Vital Signs: Last Vital Signs Temp 96.9 F 08/01/22 08:00 Pulse 105 H 08/01/22 08:01 Resp 16 08/01/22 08:01 BP 116/69 08/01/22 08:00 Pulse Ox 94 08/01/22 08:00 O2 Del Method Nasal Cannula 08/01/22 08:00 O2 Flow Rate 2 08/01/22 08:00 Oxygen Flow Rate 2 07/29/22 21:27 BMI result Body Mass Index 32.3 Const: Other: General: AO X 3, no acute distress Resp: CTA bilateral CVS: S1,S2,RRR GI: +BS, NT, no distention Skin: No rash Neuro: motor grossly intact Psych: appropriate affect DS: Data Data Completed and Pending Labs on day of discharge: Laboratory Results - last 24 hr 07/31/22 07/31/22 07/31/22 11:13 16:25 19:44 POC Glucose 288 H 372 H* 312 H 08/01/22 07:27 POC Glucose 173 H Preliminary micro results at discharge 07/29/22 22:20 Blood Culture - Preliminary Blood - Venous No growth after 48 hours. 07/29/22 22:20 Blood Culture - Preliminary Blood - Venous No growth after 48 hours. Discharge Plan Discharge Anticipated Discharge Date/Time: 08/01/22 09:58 Patient Disposition: Home Health Service Discharge Diagnosis: Acute on chronic hypoxic respiratory failure Referrals: Anne-Marie Muro MD [Primary Care Provider] - 1 Week Discharge Medications: New prednisone 10 mg tablet 10 mg PO DAILY Qty: 3 0RF Continued multivitamin [Daily-Kathleen] Tablet 1 tab PO DAILY Qty: 90 3RF metformin 1,000 mg tablet 1,000 mg PO BID Qty: 180 4RF (DME) FreeStyle Lite Strips Strip See Rx Instructions .Route Qty: 100 5RF Rx Instructions: check fasting glucose BID ac (DME) blood-glucose meter [FreeStyle Lite Meter] Kit See Rx Instructions .Route Qty: 1 0RF Rx Instructions: As directed atorvastatin 80 mg tablet 80 mg PO BEDTIME Qty: 90 3RF metoprolol tartrate 25 mg tablet 25 mg PO BID Qty: 180 1RF lorazepam 0.5 mg tablet 0.5 mg PO DAILY PRN (Reason: anxiety) Qty: 30 0RF isosorbide mononitrate 30 mg tablet extended release 24 hr 30 mg PO DAILY budesonide-formoterol [Symbicort] 160-4.5 mcg/actuation Hfa Aerosol Inhaler 2 puff INHALATION DAILY omeprazole 20 mg capsule,delayed release(DR/EC) 20 mg PO DAILY@0630 glipizide 5 mg Tablet 5 mg PO DAILY@1700 escitalopram oxalate 20 mg tablet 10 mg PO DAILY calcium carbonate-vitamin D3 600 mg-10 mcg (400 unit) tablet 1 tab PO DAILY aspirin 81 mg Tablet,Delayed Release (Dr/Ec) 81 mg PO DAILY hydrochlorothiazide 25 mg tablet 25 mg PO QAM Qty: 30 0RF gabapentin 100 mg capsule 100 mg PO TID Qty: 30 0RF albuterol sulfate 90 mcg/actuation HFA aerosol inhaler 2 puff PO Q4H PRN (Reason: Shortness Of Breath Or Wheezing) ipratropium-albuterol 0.5 mg-3 mg(2.5 mg base)/3 mL solution for nebulization 3 ml inhalation Q6H PRN (Reason: COPD) (DME) Oxygen Home Use Kit See Rx Instructions .Route Rx Instructions: As directed (DME) nebulizers Misc See Rx Instructions .Route Rx Instructions: As directed Discharge Orders: Discharge Order (Routine); Ordered 08/01/22 Ordered By: Edy Vasquez Diet: Diabetic diet Activity on Discharge: As tolerated Stand Alone Forms: Patient Portal Discharge page Care Plan Goals: Full recovery Health Concerns: chronic respiratory failure COPD Plan of Treatment: continue using oxygen as before take prednisone as directed use inhalers as directed and follow up with your Doctor in a week Assessment: as above
[2022-08-01 11:42] LABS: Glucose, Whole Blood 274 mg/dL (60-115)
[2022-08-01] MEDS: polyethylene glycoL 3350 17 GM POWD.PACK PO (11:59)
--- NOTE | 2022-08-01 14:42 | MHC.CM.PN ---
per rounds pt not ready for dc when ghe is dcd he will go home with john curran
[2022-08-01] MEDS: Lactulose 20 GM/30 ML SOLUTION PO (14:44)
--- NOTE | 2022-08-01 15:46 | MHC.CM.PN ---
physical therapy recommending home pt john has acceptd pt
--- NOTE | 2022-08-01 15:59 | MHC.CM.PN ---
pts will pick pt up at 10 am aware
[2022-08-01 16:04] LABS: Glucose, Whole Blood 243 mg/dL (60-115)
--- NOTE | 2022-08-01 16:34 | P.PNIM_ITS ---
Subjective Subjective Date of Service: 08/02/22 Interval History: copd exacerbation interval history: still w/ SOB, some swelling in legs and severe constipation Physical Exam Vital Signs: Vital Signs: Last Vital Signs Temp 97.3 F 08/01/22 15:27 Pulse 97 08/01/22 15:27 Resp 16 08/01/22 15:27 BP 108/68 08/01/22 15:27 Pulse Ox 96 08/01/22 15:27 O2 Del Method Nasal Cannula 08/01/22 15:27 O2 Flow Rate 2 08/01/22 15:27 Oxygen Flow Rate 2 07/29/22 21:27 BMI result Body Mass Index 32.3 Const: Other: General: AO X 3, no acute distress Resp: CTA bilateral CVS: S1,S2,RRR, leg edema GI: +BS, NT, no distention Skin: No rash Neuro: motor grossly intact Psych: appropriate affect Objective Data Active Medications Acetazolamide (Acetazolamide Sodium 500 Mg Vial) 500 mg IVPUSH BID [facility] Last Admin: 08/01/22 09:13 Dose: 500 mg Documented By: BAIRON Albuterol/Ipratropium (Albuterol/Iprat 2.5/0.5mg 3 Ml Ampul.Neb) 3 ml INHALE RQ4H WHILE AWAKE [facility] Last Admin: 08/01/22 15:22 Dose: Not Given Documented By: ARELI Non-Admin Reason: Patient Asleep Aspirin (Aspirin Enteric Coated 81 Mg Tablet.) 81 mg PO DAILY [facility] Last Admin: 08/01/22 08:56 Dose: 81 mg Documented By: BAIRON Atorvastatin Calcium (Atorvastatin Calcium 80 Mg Tablet) 80 mg PO BEDTIME [facility] Last Admin: 07/31/22 22:20 Dose: 80 mg Documented By: ROSALINDA Calcium Carbonate/Cholecalciferol (Calcium + Vitamin D 250 Mg Tablet) 500 mg PO DAILY [facility] Last Admin: 08/01/22 08:57 Dose: 500 mg Documented By: BAIRON Enoxaparin Sodium (Enoxaparin Sodium 40 Mg/0.4 Ml Syringe) 40 mg SUBCUT Q24H [facility] Last Admin: 08/01/22 08:54 Dose: Not Given Documented By: BAIRON Non-Admin Reason: Patient Refused Fluticasone/Vilanterol (Fluticasone/Vilanterol 200/25 Blst.W.Dev) 1 puff INHALE RDAILY [facility] Last Admin: 08/01/22 08:01 Dose: 1 puff Documented By: ARELI Folic Acid (Folic Acid 1 Mg Tablet) 1 mg PO DAILY [facility] Last Admin: 08/01/22 08:57 Dose: 1 mg Documented By: BAIRON Glucose (Glucose Gel 15 Gm Gel..Gram.) 15 gm PO Q15M PRN; Protocol PRN Reason: per Hypoglycemia Standing Ord. Dextrose (D10) 250 mls @ 750 mls/hr IV Q15M PRN; Protocol PRN Reason: per Hypoglycemia Standing Ord. Ceftriaxone Sodium 1 gm/ (Sodium Chloride) 50 mls @ 100 mls/hr IV Q24H [facility] Last Infusion: 07/31/22 23:05 Dose: 0 mls/hr Documented By: ROSALINDA Insulin Glargine (Insulin Glargine,Hum.Rec.Anlog 100 Unit/Ml 10 Ml Vial) 15 unit SUBCUT BEDTIME [facility] Last Admin: 07/31/22 22:20 Dose: 15 unit Documented By: ROSALINDA Insulin Human Lispro (Insulin Lispro 100 Unit/Ml 3 Ml Vial) 0 unit SUBCUT QIDACHS [facility]; Protocol Last Admin: 08/01/22 16:13 Dose: 4 unit Documented By: PAIGE Lorazepam (Lorazepam 0.5 Mg Tablet) 0.5 mg PO DAILY PRN PRN Reason: anxiety Last Admin: 08/01/22 09:12 Dose: 0.5 mg Documented By: BAIRON Magnesium Hydroxide (Milk Of Magnesia 30 Ml Oral.Susp) 30 ml PO DAILY PRN PRN Reason: Constipation Melatonin (Melatonin 3 Mg Tablet) 6 mg PO BEDTIME PRN PRN Reason: insomnia Last Admin: 08/01/22 01:40 Dose: 6 mg Documented By: ROSALINDA Multivitamins/Vitamin C (Multivitamin Tablet) 1 tab PO DAILY [facility] Last Admin: 08/01/22 08:57 Dose: 1 tab Documented By: BAIRON Omeprazole (Omeprazole 20 Mg Capsule.Dr) 20 mg PO DAILY@0630 [facility] Last Admin: 08/01/22 05:54 Dose: 20 mg Documented By: ROSALINDA Polyethylene Glycol (Polyethylene Glycol 3350 17 Gm Powd.Pack) 17 gm PO DAILY PRN PRN Reason: Constipation Last Admin: 08/01/22 11:59 Dose: 17 gm Documented By: PAIGE Thiamine HCl (Thiamine Hcl 100 Mg Tablet) 100 mg PO DAILY [facility] Last Admin: 08/01/22 08:57 Dose: 100 mg Documented By: CHRISRACIA Labs 07/30/22 03:00 07/30/22 03:00 Labs: Laboratory Results - last 24 hr 07/31/22 08/01/22 08/01/22 19:44 07:27 11:22 POC Glucose 312 H 173 H 274 H 08/01/22 15:57 POC Glucose 243 H Microbiology Microbiology Results: Microbiology 07/29/22 22:20 Blood Culture - Preliminary Blood - Venous No growth after 48 hours. 07/29/22 22:20 Blood Culture - Preliminary Blood - Venous No growth after 48 hours. Assessment and Plan (1) Acute on chronic respiratory failure with hypoxia and hypercapnia: Status: Acute Plan 72-year-old male with a PMH significant for?asthma/COPD overlap, chronic hypoxemic and hypercapnic respiratory failure, hepatic cirrhosis, hx of alcohol abuse, former smoker who quit 16 years ago, anxiety, HLD, HTN, and hx of left lung cancer?s/p chemo and radiation 10 years ago who presents to the ED with?increasing shortness of breath since last discharge 2 weeks ago. Pt will be admitted to the hospital acute on chronic hypoxemic hypercapnic respiratory failure secondary to COPD exacerbation. Acute on chronic hypoxemic hypercapnic respiratory failure secondary to COPD exacerbation, overall better continue O2, broncholdilators and Prednisone 10 daily ? Diastolic heart failure, normal BNP, at this point don't suspect heart failure and would avoid further diuretics ? Pneumonia no fever, no increase WBC, finding on imaging is old, consider dc Abx Dysuria x2 weeks, UA negative, symptoms improved HTN-on lower side, hold home meds severe constipation noted on prior kub, bowel regimen, add enema, this is likely part of his difficulty breathing CAD/HLD--Continue aspirin, atorvastatin, isosorbide mononitrate, and metoprolol Non insulin dependent diabetes with hyperglycemia-possible steriod use might be contributing check Hba1c levels continue insulin sliding scale, diabetic diet and glipizide. Mood disorder Continue home meds Normocytic anemia, chronic H&H at baseline, stable Full Code DVT Prophylaxis: Lovenox need for continued hospitilsation:?acute on chronic hypoxemic hypercapnic respiratory failure secondary to COPD exacerbation-need nebs, steriods , antibiotics ,oxygen support ,respiratory status is not optimal yets. Time Spent With Patient Time: Total time managing care of this patient today ____ minutes. Quality Stroke Does the patient have a stroke diagnosis?: No VTE Prior VTE?: No VTE Risk Level:: Medical - moderate - high VTE Device Contraindication: Treatment Not Indicated VTE Drug Contraindication: N/A - Med Ordered
[2022-08-01 17:19] LABS: Anion Gap 14 (12-20); Blood Urea Nitrogen 16 mg/dL (9-16); Calcium 9.4 mg/dL (8.4-10.2); Carbon Dioxide 28 mmol/L (22-29); Chloride 100 mmol/L (96-108); Creatinine Clr Calc Pharmacy 65.8; Estimated Glomerular Filt Rate > 60; Glucose Random 222 mg/dL (60-115); Potassium 3.8 mmol/L (3.3-5.1); Sodium 138 mmol/L (135-145)
[2022-08-01] MEDS: Milk of Magnesia 30 ML ORAL.SUSP PO (18:21)
[2022-08-01 20:21] LABS: Glucose, Whole Blood 207 mg/dL (60-115)
[2022-08-01] MEDS: Atorvastatin Calcium 80 MG TABLET PO (20:31)
[2022-08-01] MEDS: Insulin Glargine,Hum.rec.anlog 100 UNIT/ML 10 ML VIAL 15 UNIT SUBCUT (20:31)
[2022-08-01] MEDS: cefTRIAXone sodium 1 GM in 0.9 % Sodium Chloride 50 ML IV (21:30)
[2022-08-01] MEDS: LORazepam 2 MG/ML VIAL 1 MG IVPUSH (21:30)
[2022-08-02] VITALS (8 sets, daily range): BP systolic 108–138; BP diastolic 58–78; PULSE 91–99; RESP 14–24; TEMP 36.4–36.7; O2SAT 94–98
[2022-08-02] MEDS: Omeprazole 20 MG CAPSULE.DR PO (05:23)
--- NOTE | 2022-08-02 07:10 | P.CDIM_ITS ---
PROVIDER RESPONSE TEXT: To clarify, the appropriate diagnosis supported by the clinical indicators: Acute QUERY TEXT: PHYSICIAN'S DOCUMENTATION REQUEST Date of Query: 08/01/2022 08:56 AM EDT Patient Name: Fitz Reed Admit Date: 07/30/2022 Dear Edy Vasquez, A review of the medical record indicates additional documentation may be needed. Please review below and update the documentation accordingly. Clinical Indicators: H&P 07/29 - Assessment and plan: Lactic acidosis due to metformin and nebs, not sepsis LA 4.8 H hyperglycemia Clarify which of the following accurately represents the acuity of the Lactic acidosis: Possible options might include: Acute Acute on chronic Compensated Chronic stable condition Remission Other (explain) Clinically unable to determine (explain) Thank you, Joan Rolon, CCS, CDIS Use of terms such as suspected, likely, concern for, or probable (associated with a specific diagnosi s that is being evaluated, monitored, or treated as if it exists) are acceptable and can be coded in the inpatient se tting, when documented at the time of discharge. Please use your independent medical judgment in providing your response. THIS QUERY IS PART OF THE PERMANENT MEDICAL RECORD
[2022-08-02 07:32] LABS: Glucose, Whole Blood 195 mg/dL (60-115)
[2022-08-02] MEDS: Albuterol/Iprat 2.5/0.5MG 3 ML AMPUL.NEB INHALE ×4 (08:13→19:56)
[2022-08-02] MEDS: Fluticasone/Vilanterol 200/25 BLST.W.DEV 1 PUFF INHALE (08:13)
[2022-08-02] MEDS: polyethylene glycoL 3350 17 GM POWD.PACK PO (08:15)
[2022-08-02] MEDS: Insulin Lispro 100 UNIT/ML 3 ML VIAL SUBCUT ×4 (08:15→21:39)
[2022-08-02] MEDS: Aspirin Enteric Coated 81 MG TABLET.DR PO (08:15)
[2022-08-02] MEDS: Calcium + Vitamin D 250 MG TABLET 500 MG PO (08:16)
[2022-08-02] MEDS: Folic Acid 1 MG TABLET PO (08:16)
[2022-08-02] MEDS: Multivitamin TABLET 1 TAB PO (08:16)
[2022-08-02] MEDS: Thiamine HCL 100 MG TABLET PO (08:16)
[2022-08-02] MEDS: acetaZOLAMIDE sodium 500 MG VIAL IVPUSH ×2 (08:16→21:38)
[2022-08-02] MEDS: LORazepam 0.5 MG TABLET PO ×2 (08:23→22:38)
[2022-08-02] MEDS: Milk of Magnesia 30 ML ORAL.SUSP PO (11:10)
[2022-08-02] MEDS: Mineral OiL enema 133 ML ENEMA PR (11:11)
[2022-08-02] MEDS: predniSONE 10 MG TABLET PO (11:11)
[2022-08-02 11:20] LABS: Glucose, Whole Blood 283 mg/dL (60-115)
[2022-08-02 16:26] LABS: Glucose, Whole Blood 282 mg/dL (60-115)
[2022-08-02 21:07] LABS: Glucose, Whole Blood 246 mg/dL (60-115)
[2022-08-02] MEDS: Atorvastatin Calcium 80 MG TABLET PO (21:38)
[2022-08-02] MEDS: Insulin Glargine,Hum.rec.anlog 100 UNIT/ML 10 ML VIAL 15 UNIT SUBCUT (21:39)
[2022-08-02] MEDS: Melatonin 3 MG TABLET 6 MG PO (21:47)
[2022-08-03] VITALS (12 sets, daily range): BP systolic 106–128; BP diastolic 55–78; PULSE 80–101; RESP 18–22; TEMP 36.2–36.6; O2SAT 96–98
[2022-08-03] MEDS: Omeprazole 20 MG CAPSULE.DR PO (05:30)
[2022-08-03] MEDS: Fluticasone/Vilanterol 200/25 BLST.W.DEV 1 PUFF INHALE (07:27)
[2022-08-03] MEDS: Albuterol/Iprat 2.5/0.5MG 3 ML AMPUL.NEB INHALE ×4 (07:27→19:20)
[2022-08-03 07:37] LABS: Glucose, Whole Blood 199 mg/dL (60-115)
[2022-08-03] MEDS: Insulin Lispro 100 UNIT/ML 3 ML VIAL SUBCUT ×4 (08:19→21:37)
[2022-08-03] MEDS: Multivitamin TABLET 1 TAB PO (08:20)
[2022-08-03] MEDS: acetaZOLAMIDE sodium 500 MG VIAL IVPUSH ×2 (08:20→20:12)
[2022-08-03] MEDS: Aspirin Enteric Coated 81 MG TABLET.DR PO (08:20)
[2022-08-03] MEDS: predniSONE 10 MG TABLET PO (08:20)
[2022-08-03] MEDS: Calcium + Vitamin D 250 MG TABLET 500 MG PO (08:20)
[2022-08-03] MEDS: Folic Acid 1 MG TABLET PO (08:20)
[2022-08-03] MEDS: Thiamine HCL 100 MG TABLET PO (08:20)
--- NOTE | 2022-08-03 10:11 | P.PNIM_ITS ---
Subjective Subjective Date of Service: 08/03/22 Interval History: copd exacerbation interval history: SOB is better, still has constipation, had multiple enema and some bowel described by nursing as large but pt says not large Physical Exam Vital Signs: Vital Signs: Last Vital Signs Temp 97.1 F 08/03/22 07:29 Pulse 83 08/03/22 07:29 Resp 22 H 08/03/22 07:29 BP 128/66 08/03/22 07:29 Pulse Ox 98 08/03/22 07:29 O2 Del Method Nasal Cannula 08/03/22 07:29 O2 Flow Rate 2.5 08/03/22 07:29 Oxygen Flow Rate 2 07/29/22 21:27 BMI result Body Mass Index 32.3 Const: Other: General: AO X 3, no acute distress Resp: CTA bilateral CVS: S1,S2,RRR, leg edema GI: +BS, NT, no distention Skin: No rash Neuro: motor grossly intact Psych: appropriate affect Objective Data Active Medications Acetazolamide (Acetazolamide Sodium 500 Mg Vial) 500 mg IVPUSH BID [facility] Last Admin: 08/03/22 08:20 Dose: 500 mg Documented By: LIU Albuterol/Ipratropium (Albuterol/Iprat 2.5/0.5mg 3 Ml Ampul.Neb) 3 ml INHALE RQ4H WHILE AWAKE [facility] Last Admin: 08/03/22 07:27 Dose: 3 ml Documented By: FUENTES Aspirin (Aspirin Enteric Coated 81 Mg Tablet.) 81 mg PO DAILY [facility] Last Admin: 08/03/22 08:20 Dose: 81 mg Documented By: LIU Atorvastatin Calcium (Atorvastatin Calcium 80 Mg Tablet) 80 mg PO BEDTIME [facility] Last Admin: 08/02/22 21:38 Dose: 80 mg Documented By: MURRAY Calcium Carbonate/Cholecalciferol (Calcium + Vitamin D 250 Mg Tablet) 500 mg PO DAILY [facility] Last Admin: 08/03/22 08:20 Dose: 500 mg Documented By: LIU Enoxaparin Sodium (Enoxaparin Sodium 40 Mg/0.4 Ml Syringe) 40 mg SUBCUT Q24H [facility] Last Admin: 08/03/22 08:19 Dose: Not Given Documented By: LIU Non-Admin Reason: Patient Refused Fluticasone/Vilanterol (Fluticasone/Vilanterol 200/25 Blst.W.Dev) 1 puff INHALE RDAILY [facility] Last Admin: 08/03/22 07:27 Dose: 1 puff Documented By: FUENTES Folic Acid (Folic Acid 1 Mg Tablet) 1 mg PO DAILY [facility] Last Admin: 08/03/22 08:20 Dose: 1 mg Documented By: LIU Glucose (Glucose Gel 15 Gm Gel..Gram.) 15 gm PO Q15M PRN; Protocol PRN Reason: per Hypoglycemia Standing Ord. Dextrose (D10) 250 mls @ 750 mls/hr IV Q15M PRN; Protocol PRN Reason: per Hypoglycemia Standing Ord. Insulin Glargine (Insulin Glargine,Hum.Rec.Anlog 100 Unit/Ml 10 Ml Vial) 15 unit SUBCUT BEDTIME [facility] Last Admin: 08/02/22 21:39 Dose: 15 unit Documented By: MURRAY Insulin Human Lispro (Insulin Lispro 100 Unit/Ml 3 Ml Vial) 0 unit SUBCUT QIDACHS [facility]; Protocol Last Admin: 08/03/22 08:19 Dose: 2 unit Documented By: LIU Lorazepam (Lorazepam 0.5 Mg Tablet) 0.5 mg PO DAILY PRN PRN Reason: anxiety Last Admin: 08/02/22 08:23 Dose: 0.5 mg Documented By: LIU Magnesium Hydroxide (Milk Of Magnesia 30 Ml Oral.Susp) 30 ml PO DAILY PRN PRN Reason: Constipation Last Admin: 08/02/22 11:10 Dose: 30 ml Documented By: LIU Melatonin (Melatonin 3 Mg Tablet) 6 mg PO BEDTIME PRN PRN Reason: insomnia Last Admin: 08/02/22 21:47 Dose: 6 mg Documented By: MURRAY Multivitamins/Vitamin C (Multivitamin Tablet) 1 tab PO DAILY [facility] Last Admin: 08/03/22 08:20 Dose: 1 tab Documented By: LIU Omeprazole (Omeprazole 20 Mg Capsule.) 20 mg PO DAILY@0630 [facility] Last Admin: 08/03/22 05:30 Dose: 20 mg Documented By: MURRAY Polyethylene Glycol (Polyethylene Glycol 3350 17 Gm Powd.Pack) 17 gm PO DAILY PRN PRN Reason: Constipation Last Admin: 08/02/22 08:15 Dose: 17 gm Documented By: LIU Prednisone (Prednisone 10 Mg Tablet) 10 mg PO DAILY [facility] Last Admin: 08/03/22 08:20 Dose: 10 mg Documented By: LIU Thiamine HCl (Thiamine Hcl 100 Mg Tablet) 100 mg PO DAILY [facility] Last Admin: 08/03/22 08:20 Dose: 100 mg Documented By: LIU Labs 07/30/22 03:00 08/01/22 16:58 Labs: Laboratory Results - last 24 hr 08/02/22 08/02/22 08/02/22 11:08 16:19 20:58 POC Glucose 283 H 282 H 246 H 08/03/22 07:32 POC Glucose 199 H Assessment and Plan (1) Acute on chronic respiratory failure with hypoxia and hypercapnia: Status: Acute Plan 72-year-old male with a PMH significant for?asthma/COPD overlap, chronic hypoxemic and hypercapnic respiratory failure, hepatic cirrhosis, hx of alcohol abuse, former smoker who quit 16 years ago, anxiety, HLD, HTN, and hx of left lung cancer?s/p chemo and radiation 10 years ago who presents to the ED with?increasing shortness of breath since last discharge 2 weeks ago. Pt will be admitted to the hospital acute on chronic hypoxemic hypercapnic respiratory failure secondary to COPD exacerbation. Acute on chronic hypoxemic hypercapnic respiratory failure secondary to COPD exacerbation, overall better continue O2, broncholdilators and Prednisone 10 daily ? Diastolic heart failure, normal BNP, at this point don't suspect heart failure and would avoid further diuretics ? Pneumonia no fever, no increase WBC, finding on imaging is old, consider dc Abx Dysuria x2 weeks, UA negative, symptoms improved HTN-on lower side, hold home meds severe constipation, he is on agresive bowel regimen, Kub yesterday showed mild contipation, will continue bowel regimen and enema as needed CAD/HLD--Continue aspirin, atorvastatin, isosorbide mononitrate, and metoprolol Non insulin dependent diabetes with hyperglycemia-possible steriod use might be contributing check Hba1c levels continue insulin sliding scale, diabetic diet and glipizide. Mood disorder Continue home meds Normocytic anemia, chronic H&H at baseline, stable Full Code DVT Prophylaxis: Lovenox need for continued hospitilsation:?acute on chronic hypoxemic hypercapnic respiratory failure secondary to COPD exacerbation-need nebs, steriods , antibiotics ,oxygen support ,respiratory status is not optimal yets. Time Spent With Patient Time: Total time managing care of this patient today ____ minutes. Quality Stroke Does the patient have a stroke diagnosis?: No VTE Prior VTE?: No VTE Risk Level:: Medical - moderate - high VTE Device Contraindication: Treatment Not Indicated VTE Drug Contraindication: N/A - Med Ordered
[2022-08-03] MEDS: LORazepam 0.5 MG TABLET PO ×2 (10:34→20:11)
[2022-08-03 11:15] LABS: Glucose, Whole Blood 249 mg/dL (60-115)
--- NOTE | 2022-08-03 14:30 | PC.NURSE ---
This nurse performed a soap suds enema on patient at 10:30am, Pt ambulated to bedside commode, Lg amount of retained brown enema liquid and multiple small formed stool pieces noted in commode. will continue to monitor.
[2022-08-03] MEDS: Lactulose 20 GM/30 ML SOLUTION PO (14:51)
[2022-08-03 16:17] LABS: Glucose, Whole Blood 321 mg/dL (60-115)
--- NOTE | 2022-08-03 18:01 | PM.EVENT ---
Event Note Date of Service: 08/03/22 Event Note: 72 YM known to me from fu in the GI clinic admitted with COPD exacerbation. Pt complains of constipation after he was prescribed gabapentin No BM for the past 9 days. Had tap water enemas with return of small amount of stool mixed with enema fluid. Pt prescribed Colyte - over 48 hrs - 2 litres today and 2 litres tomorrow Continue clear liquid diet Pt is requesting Lorazepam 2-3 times a day due to increased anxiety during hospitalization Time Spent With Patient Time: Total time managing care of this patient today ____ minutes.
[2022-08-03] MEDS: Atorvastatin Calcium 80 MG TABLET PO (20:12)
[2022-08-03] MEDS: PEG 3350/Na Sulf,Bicarb,Cl/KCL 4,000 ML SOLN.RECON 4000 ML PO (20:19)
[2022-08-03 21:00] LABS: Glucose, Whole Blood 176 mg/dL (60-115)
[2022-08-03] MEDS: Insulin Glargine,Hum.rec.anlog 100 UNIT/ML 10 ML VIAL 15 UNIT SUBCUT (21:37)
[2022-08-04] VITALS (8 sets, daily range): BP systolic 100–126; BP diastolic 57–74; PULSE 67–105; RESP 16–20; TEMP 36.1–36.6; O2SAT 95–100
[2022-08-04] MEDS: Omeprazole 20 MG CAPSULE.DR PO (05:54)
[2022-08-04] MEDS: Thiamine HCL 100 MG TABLET PO (07:16)
[2022-08-04] MEDS: Folic Acid 1 MG TABLET PO (07:16)
[2022-08-04] MEDS: predniSONE 10 MG TABLET PO (07:16)
[2022-08-04] MEDS: Aspirin Enteric Coated 81 MG TABLET.DR PO (07:17)
[2022-08-04] MEDS: Calcium + Vitamin D 250 MG TABLET 500 MG PO (07:17)
[2022-08-04] MEDS: Multivitamin TABLET 1 TAB PO (07:17)
[2022-08-04] MEDS: acetaZOLAMIDE sodium 500 MG VIAL IVPUSH ×2 (07:33→22:46)
[2022-08-04 07:41] LABS: Glucose, Whole Blood 179 mg/dL (60-115)
[2022-08-04] MEDS: Fluticasone/Vilanterol 200/25 BLST.W.DEV 1 PUFF INHALE (07:56)
[2022-08-04] MEDS: Albuterol/Iprat 2.5/0.5MG 3 ML AMPUL.NEB INHALE ×4 (07:56→19:52)
[2022-08-04] MEDS: Insulin Lispro 100 UNIT/ML 3 ML VIAL SUBCUT ×4 (08:03→22:47)
--- NOTE | 2022-08-04 10:36 | HO.PM.IMPN ---
Subjective Subjective Date of Service: 08/04/22 Interval History: copd exacerbation interval history:Still very constipated, even after GoLYTELY Physical Exam Vital Signs: Vital Signs: Last Vital Signs Temp 97.0 F 08/04/22 08:00 Pulse 90 08/04/22 08:00 Resp 18 08/04/22 08:00 BP 126/74 08/04/22 08:00 Pulse Ox 100 08/04/22 08:00 O2 Del Method Nasal Cannula 08/04/22 08:00 O2 Flow Rate 2.0 08/04/22 08:00 Oxygen Flow Rate 2 07/29/22 21:27 BMI result Body Mass Index 32.3 Const: Other: General: AO X 3, no acute distress Resp: CTA bilateral CVS: S1,S2,RRR, leg edema GI: +BS, NT, no distention Skin: No rash Neuro: motor grossly intact Psych: appropriate affect Objective Data Active Medications Acetazolamide (Acetazolamide Sodium 500 Mg Vial) 500 mg IVPUSH BID [facility] Last Admin: 08/04/22 07:33 Dose: 500 mg Documented By: DURAN Albuterol/Ipratropium (Albuterol/Iprat 2.5/0.5mg 3 Ml Ampul.Neb) 3 ml INHALE RQ4H WHILE AWAKE [facility] Last Admin: 08/04/22 07:56 Dose: 3 ml Documented By: ROLY Aspirin (Aspirin Enteric Coated 81 Mg Tablet.Dr) 81 mg PO DAILY [facility] Last Admin: 08/04/22 07:17 Dose: 81 mg Documented By: DURAN Atorvastatin Calcium (Atorvastatin Calcium 80 Mg Tablet) 80 mg PO BEDTIME [facility] Last Admin: 08/03/22 20:12 Dose: 80 mg Documented By: ANGELA Calcium Carbonate/Cholecalciferol (Calcium + Vitamin D 250 Mg Tablet) 500 mg PO DAILY [facility] Last Admin: 08/04/22 07:17 Dose: 500 mg Documented By: DURAN Enoxaparin Sodium (Enoxaparin Sodium 40 Mg/0.4 Ml Syringe) 40 mg SUBCUT Q24H [facility] Last Admin: 08/04/22 07:19 Dose: Not Given Documented By: DURAN Non-Admin Reason: Patient Refused Fluticasone/Vilanterol (Fluticasone/Vilanterol 200/25 Blst.W.Dev) 1 puff INHALE RDAILY [facility] Last Admin: 08/04/22 07:56 Dose: 1 puff Documented By: ROLY Folic Acid (Folic Acid 1 Mg Tablet) 1 mg PO DAILY [facility] Last Admin: 08/04/22 07:16 Dose: 1 mg Documented By: DURAN Glucose (Glucose Gel 15 Gm Gel..Gram.) 15 gm PO Q15M PRN; Protocol PRN Reason: per Hypoglycemia Standing Ord. Dextrose (D10) 250 mls @ 750 mls/hr IV Q15M PRN; Protocol PRN Reason: per Hypoglycemia Standing Ord. Insulin Glargine (Insulin Glargine,Hum.Rec.Anlog 100 Unit/Ml 10 Ml Vial) 15 unit SUBCUT BEDTIME [facility] Last Admin: 08/03/22 21:37 Dose: 15 unit Documented By: ANGELA Insulin Human Lispro (Insulin Lispro 100 Unit/Ml 3 Ml Vial) 0 unit SUBCUT QIDACHS [facility]; Protocol Last Admin: 08/04/22 08:03 Dose: 2 unit Documented By: DURAN Lorazepam (Lorazepam 0.5 Mg Tablet) 0.5 mg PO DAILY PRN PRN Reason: anxiety Last Admin: 08/03/22 10:34 Dose: 0.5 mg Documented By: LIU Lorazepam (Lorazepam 0.5 Mg Tablet) 0.5 mg PO BEDTIME PRN PRN Reason: Anxiety Last Admin: 08/03/22 20:11 Dose: 0.5 mg Documented By: ANGELA Magnesium Hydroxide (Milk Of Magnesia 30 Ml Oral.Susp) 30 ml PO DAILY PRN PRN Reason: Constipation Last Admin: 08/02/22 11:10 Dose: 30 ml Documented By: LIU Melatonin (Melatonin 3 Mg Tablet) 6 mg PO BEDTIME PRN PRN Reason: insomnia Last Admin: 08/02/22 21:47 Dose: 6 mg Documented By: MURRAY Multivitamins/Vitamin C (Multivitamin Tablet) 1 tab PO DAILY [facility] Last Admin: 08/04/22 07:17 Dose: 1 tab Documented By: DURAN Omeprazole (Omeprazole 20 Mg Capsule.Dr) 20 mg PO DAILY@0630 [facility] Last Admin: 08/04/22 05:54 Dose: 20 mg Documented By: HO.NATALSA Polyethylene Glycol (Polyethylene Glycol 3350 17 Gm Powd.Pack) 17 gm PO DAILY PRN PRN Reason: Constipation Last Admin: 08/02/22 08:15 Dose: 17 gm Documented By: LIU Prednisone (Prednisone 10 Mg Tablet) 10 mg PO DAILY [facility] Last Admin: 08/04/22 07:16 Dose: 10 mg Documented By: DURAN Thiamine HCl (Thiamine Hcl 100 Mg Tablet) 100 mg PO DAILY [facility] Last Admin: 08/04/22 07:16 Dose: 100 mg Documented By: DURAN Labs 07/30/22 03:00 08/01/22 16:58 Labs: Laboratory Results - last 24 hr 08/03/22 08/03/22 08/03/22 11:09 16:06 20:53 POC Glucose 249 H 321 H 176 H 08/04/22 07:25 POC Glucose 179 H Microbiology Microbiology Results: Microbiology 07/29/22 22:20 Blood Culture - Final Blood - Venous No growth after 5 days. 07/29/22 22:20 Blood Culture - Final Blood - Venous No growth after 5 days. Assessment and Plan (1) Acute on chronic respiratory failure with hypoxia and hypercapnia: Status: Resolved Plan 72-year-old male with a PMH significant for?asthma/COPD overlap, chronic hypoxemic and hypercapnic respiratory failure, hepatic cirrhosis, hx of alcohol abuse, former smoker who quit 16 years ago, anxiety, HLD, HTN, and hx of left lung cancer?s/p chemo and radiation 10 years ago who presents to the ED with?increasing shortness of breath since last discharge 2 weeks ago. Pt will be admitted to the hospital acute on chronic hypoxemic hypercapnic respiratory failure secondary to COPD exacerbation. Severe constipation-- still constipated despite GoLYTELY, enema and if persistent get surgery to see the patient Acute on chronic hypoxemic hypercapnic respiratory failure secondary to COPD exacerbation, overall better continue O2, broncholdilators and Prednisone 10 daily.. I think most of his respiratory difficulty presently stems from this severe constipation ? Diastolic heart failure, normal BNP, at this point don't suspect heart failure and would avoid further diuretics ? Pneumonia no fever, no increase WBC, finding on imaging is old, consider dc Abx Dysuria x2 weeks, UA negative, symptoms improved HTN-on lower side, hold home meds severe constipation, he is on agresive bowel regimen, Kub yesterday showed mild contipation, will continue bowel regimen and enema as needed CAD/HLD--Continue aspirin, atorvastatin, isosorbide mononitrate, and metoprolol Non insulin dependent diabetes with hyperglycemia-possible steriod use might be contributing continue insulin sliding scale, diabetic diet and glipizide. Mood disorder Continue home meds Normocytic anemia, chronic H&H at baseline, stable Full Code DVT Prophylaxis: Lovenox need for continued hospitilsation:?acute on chronic hypoxemic hypercapnic respiratory failure secondary to COPD exacerbation-need nebs, steriods , antibiotics ,oxygen support ,respiratory status is not optimal yets. Time Spent With Patient Time: Total time managing care of this patient today ____ minutes. Quality Stroke Does the patient have a stroke diagnosis?: No VTE Prior VTE?: No VTE Risk Level:: Medical - moderate - high VTE Device Contraindication: Treatment Not Indicated VTE Drug Contraindication: N/A - Med Ordered
--- NOTE | 2022-08-04 11:11 | PC.NURSE ---
Tolerated SSE well. Had two BM's previous.
[2022-08-04 11:30] LABS: Glucose, Whole Blood 201 mg/dL (60-115)
[2022-08-04] MEDS: LORazepam 0.5 MG TABLET PO ×2 (11:43→22:46)
[2022-08-04 16:19] LABS: Glucose, Whole Blood 236 mg/dL (60-115)
[2022-08-04 20:34] LABS: Glucose, Whole Blood 189 mg/dL (60-115)
[2022-08-04] MEDS: Insulin Glargine,Hum.rec.anlog 100 UNIT/ML 10 ML VIAL 15 UNIT SUBCUT (22:46)
[2022-08-04] MEDS: Atorvastatin Calcium 80 MG TABLET PO (22:46)
--- NOTE | 2022-08-04 22:55 | P.CONGS_ITS ---
History of Present Illness Consult details Consult date: 08/04/22 Reason for consult: abdominal pain Requesting physician: Edy Vasquez Narrative: 72 year old male with respiratory issues admitted for flare up - during treatment few days started ahving abdo distension - keith had a bowel movement and feeling uncomfortable. had kub which showed constipation so pt on golytely with only minor improvement. enemas too. CT scan done showing mild colonic distension but no obvious obstructive mass . pt distension causing pressure in chest not passing much gas normally has issues with diarrhea so this is different keith had a cscope in years and is due but it was put off due to developing and having treatment for lung cancer Review of Systems Review of Systems: Yes all other systems are reviewed and are negative PMFSH Past Medical History Medical History Acute on chronic respiratory failure with hypoxia and hypercapnia Anemia Asthma Bacteremia due to Enterococcus Chronic lung disease Chronic lung disease Chronic respiratory failure Chronic respiratory failure with hypoxia and hypercapnia COPD exacerbation COPD, severe Diabetes mellitus with hyperglycemia, without long-term current use of insulin Dyslipidemia Generalized anxiety disorder History of pneumonia HTN (hypertension) Hyperlipemia Lung cancer Radiation fibrosis of lung Skin cancer Urinary incontinence Family History Family History Father Medical history non-contributory Mother Medical history non-contributory Unknown family medical history Lung collapse Brother No problems noted. Brother No problems noted. Son Substance use disorder Son No problems noted. Daughter No problems noted. Sister No problems noted. Sister No problems noted. Sister No problems noted. Sister No problems noted. Other HTN (hypertension) Surgical History Surgical History History of esophagogastroduodenoscopy (EGD) Hx of colonoscopy Hx of heart artery stent Social History Social History Household Members: Family Household Members Other:: grandson Housing: House Are you a primary floor care technician to a significant other at home: No Do you presently have visiting nurse or other home services: No Alcohol intake: former Patient Tobacco Use Status: Former Tobacco user e-Cigarette/Vaping Use: Never Used Advance Directives Date on File: 06/08/22 service: No Current occupational status: retired Cognitive needs: No Hearing needs: No Vision needs: No Meds Allergies Allergy/AdvReac Type Severity Reaction Status Date / Time fluticasone furoate Allergy Intermediate rash Verified 07/29/22 21:27 [From Trelegy Ellipta] vilanterol Allergy Intermediate rash Verified 07/29/22 21:27 [From Trelegy Ellipta] umeclidinium Allergy Unknown hives Verified 07/29/22 21:27 [Incruse Ellipta] lasix AdvReac Intermediate Hallucinati Uncoded 06/30/22 04:11 ons Active Medications: Current Medications Acetazolamide (Acetazolamide Sodium 500 Mg Vial) 500 mg IVPUSH BID [facility] Last Admin: 08/04/22 22:46 Dose: 500 mg Albuterol/Ipratropium (Albuterol/Iprat 2.5/0.5mg 3 Ml Ampul.Neb) 3 ml INHALE RQ4H WHILE AWAKE [facility] Last Admin: 08/04/22 19:52 Dose: 3 ml Aspirin (Aspirin Enteric Coated 81 Mg Tablet.Dr) 81 mg PO DAILY [facility] Last Admin: 08/04/22 07:17 Dose: 81 mg Atorvastatin Calcium (Atorvastatin Calcium 80 Mg Tablet) 80 mg PO BEDTIME [facility] Last Admin: 08/04/22 22:46 Dose: 80 mg Calcium Carbonate/Cholecalciferol (Calcium + Vitamin D 250 Mg Tablet) 500 mg PO DAILY [facility] Last Admin: 08/04/22 07:17 Dose: 500 mg Enoxaparin Sodium (Enoxaparin Sodium 40 Mg/0.4 Ml Syringe) 40 mg SUBCUT Q24H [facility] Last Admin: 08/04/22 07:19 Dose: Not Given Fluticasone/Vilanterol (Fluticasone/Vilanterol 200/25 Blst.W.Dev) 1 puff INHALE RDAILY [facility] Last Admin: 08/04/22 07:56 Dose: 1 puff Folic Acid (Folic Acid 1 Mg Tablet) 1 mg PO DAILY [facility] Last Admin: 08/04/22 07:16 Dose: 1 mg Glucose (Glucose Gel 15 Gm Gel..Gram.) 15 gm PO Q15M PRN; Protocol PRN Reason: per Hypoglycemia Standing Ord. Dextrose (D10) 250 mls @ 750 mls/hr IV Q15M PRN; Protocol PRN Reason: per Hypoglycemia Standing Ord. Insulin Glargine (Insulin Glargine,Hum.Rec.Anlog 100 Unit/Ml 10 Ml Vial) 15 unit SUBCUT BEDTIME [facility] Last Admin: 08/04/22 22:46 Dose: 15 unit Insulin Human Lispro (Insulin Lispro 100 Unit/Ml 3 Ml Vial) 0 unit SUBCUT QIDACHS [facility]; Protocol Last Admin: 08/04/22 22:47 Dose: 2 unit Lorazepam (Lorazepam 0.5 Mg Tablet) 0.5 mg PO DAILY PRN PRN Reason: anxiety Last Admin: 08/04/22 11:43 Dose: 0.5 mg Lorazepam (Lorazepam 0.5 Mg Tablet) 0.5 mg PO BEDTIME PRN PRN Reason: Anxiety Last Admin: 08/04/22 22:46 Dose: 0.5 mg Magnesium Hydroxide (Milk Of Magnesia 30 Ml Oral.Susp) 30 ml PO DAILY PRN PRN Reason: Constipation Last Admin: 08/02/22 11:10 Dose: 30 ml Melatonin (Melatonin 3 Mg Tablet) 6 mg PO BEDTIME PRN PRN Reason: insomnia Last Admin: 08/02/22 21:47 Dose: 6 mg Multivitamins/Vitamin C (Multivitamin Tablet) 1 tab PO DAILY [facility] Last Admin: 08/04/22 07:17 Dose: 1 tab Omeprazole (Omeprazole 20 Mg Capsule.Dr) 20 mg PO DAILY@0630 [facility] Last Admin: 08/04/22 05:54 Dose: 20 mg Polyethylene Glycol (Polyethylene Glycol 3350 17 Gm Powd.Pack) 17 gm PO DAILY PRN PRN Reason: Constipation Last Admin: 08/02/22 08:15 Dose: 17 gm Prednisone (Prednisone 10 Mg Tablet) 10 mg PO DAILY [facility] Last Admin: 08/04/22 07:16 Dose: 10 mg Thiamine HCl (Thiamine Hcl 100 Mg Tablet) 100 mg PO DAILY [facility] Last Admin: 08/04/22 07:16 Dose: 100 mg Home Medications Medication Instructions Recorded Confirmed Last Taken Type albuterol sulfate 90 mcg/actuation 2 puff PO Q4H PRN Shortness Of 01/14/20 07/29/22 07/29/22 18:00 History aerosol inhaler Breath Or Wheezing ipratropium 0.5 mg-albuterol 3 mg 3 ml inhalation Q6H PRN COPD 01/14/20 07/29/22 07/29/22 08:00 History (2.5 mg base)/3 mL nebulization soln budesonide-formoterol HFA 160 2 puff inhalation DAILY 03/14/21 07/29/22 07/29/22 08:00 History mcg-4.5 mcg/actuation aerosol inhaler (Symbicort) isosorbide mononitrate 30 mg 30 mg PO DAILY 03/14/21 07/29/22 07/29/22 08:00 History tablet,extended release 24 hr aspirin 81 mg tablet,delayed 81 mg PO DAILY 08/04/21 07/29/22 07/28/22 08:00 History release calcium carbonate 600 mg-vitamin 1 tab PO DAILY 08/04/21 07/29/22 07/28/22 08:00 History D3 10 mcg (400 unit) tablet omeprazole 20 mg capsule,delayed 20 mg PO DAILY@0630 11/28/21 07/29/22 07/29/22 08:00 History release escitalopram oxalate 20 mg tablet 10 mg PO DAILY 06/07/22 07/30/22 06/07/22 History glipizide 5 mg tablet 5 mg PO DAILY@1700 06/07/22 07/29/22 07/29/22 08:00 History Oxygen Home Use 06/14/22 06/25/22 Unknown History nebulizers 06/14/22 06/25/22 Unknown History Physical Exam Vital Signs: Vital Signs: Last Vital Signs Temp 97.8 F 08/04/22 19:59 Pulse 97 08/04/22 19:59 Resp 16 08/04/22 19:59 BP 100/73 08/04/22 19:59 Pulse Ox 98 08/04/22 19:59 O2 Del Method Nasal Cannula 08/04/22 19:59 O2 Flow Rate 2 08/04/22 19:59 Oxygen Flow Rate 2 07/29/22 21:27 BMI result Body Mass Index 32.3 GI: Other: abdo distended and firm but with some bowel sounds no masses noted nontender Results Labs 07/30/22 03:00 08/01/22 16:58 Labs: Abnormal lab results 08/04/22 08/04/22 08/04/22 Range/Units 07:25 11:19 16:10 POC Glucose 179 H 201 H 236 H (60-115) mg/dL 08/04/22 Range/Units 19:52 POC Glucose 189 H (60-115) mg/dL All other labs normal. Imaging Abdominal x-ray: report reviewed and image reviewed Abdomen CT scan report/results: report reviewed and image reviewed CT scan - pelvis: report reviewed and image reviewed Assessment and Plan (1) Abdominal distension: Status: Acute Plan 72 year old male with abdo distension and consitpation not improved with enemas and golyteley- ct scan not showing obvious lesion but i am concerned for obstructive issue plan - decrease po intake trials of repeated enemas for results consider gastrograffin enema on saturday to rule out colon lesion and therepeutic effect. discussed with pt and and primary care docs. Time Spent With Patient Time: Total time managing care of this patient today ____ minutes. Procedures Date of Service Date of Service: 08/04/22
[2022-08-05] VITALS (8 sets, daily range): BP systolic 105–127; BP diastolic 51–62; PULSE 68–108; RESP 16–22; TEMP 36–36.7; O2SAT 92–99
[2022-08-05] MEDS: Melatonin 3 MG TABLET 6 MG PO (02:02)
--- NOTE | 2022-08-05 06:31 | PC.NURSE ---
Approximately around 20:00 Dr. Vasquez placed one time order of soap enema. This RN gave pt soap enema at 20:10, pt tolerated it well. After the soap enema, pt had at least 5 moderate amount of brown loose stool. Will continue to monitor pt's bowel movement.
[2022-08-05] MEDS: Omeprazole 20 MG CAPSULE.DR PO (06:44)
[2022-08-05] MEDS: polyethylene glycoL 3350 17 GM POWD.PACK PO (07:23)
[2022-08-05] MEDS: acetaZOLAMIDE sodium 500 MG VIAL IVPUSH ×2 (07:23→21:38)
[2022-08-05] MEDS: Milk of Magnesia 30 ML ORAL.SUSP PO (07:23)
[2022-08-05] MEDS: Folic Acid 1 MG TABLET PO (07:24)
[2022-08-05] MEDS: Calcium + Vitamin D 250 MG TABLET 500 MG PO (07:24)
[2022-08-05] MEDS: Aspirin Enteric Coated 81 MG TABLET.DR PO (07:24)
[2022-08-05] MEDS: Multivitamin TABLET 1 TAB PO (07:24)
[2022-08-05] MEDS: Thiamine HCL 100 MG TABLET PO (07:24)
[2022-08-05] MEDS: predniSONE 10 MG TABLET PO (07:25)
[2022-08-05 07:49] LABS: Glucose, Whole Blood 126 mg/dL (60-115)
[2022-08-05] MEDS: Albuterol/Iprat 2.5/0.5MG 3 ML AMPUL.NEB INHALE ×4 (08:10→20:15)
[2022-08-05] MEDS: Fluticasone/Vilanterol 200/25 BLST.W.DEV 1 PUFF INHALE (08:10)
[2022-08-05] MEDS: LORazepam 0.5 MG TABLET PO ×2 (09:19→22:31)
--- NOTE | 2022-08-05 10:19 | HO.PM.IMPN ---
Subjective Subjective Date of Service: 08/05/22 Interval History: copd exacerbation interval history:Still very constipated, even after GoLYTELY and repeat, he does say that he had multiple bms overnight and is less distended Review of Systems sob similar( minimum effect ) has cough , no fevers Physical Exam Vital Signs: Vital Signs: Last Vital Signs Temp 97.3 F 08/05/22 07:32 Pulse 68 08/05/22 08:12 Resp 20 08/05/22 08:12 BP 114/62 08/05/22 07:32 Pulse Ox 97 08/05/22 07:32 O2 Del Method Nasal Cannula 08/05/22 07:32 O2 Flow Rate 2 08/05/22 07:32 Oxygen Flow Rate 2 07/29/22 21:27 BMI result Body Mass Index 32.3 Const: Other: General: AO X 3, no acute distress Resp: CTA bilateral CVS: S1,S2,RRR, leg edema GI: +BS, NT, no distention Skin: No rash Neuro: motor grossly intact Psych: appropriate affect Objective Data Active Medications Acetazolamide (Acetazolamide Sodium 500 Mg Vial) 500 mg IVPUSH BID [facility] Last Admin: 08/05/22 07:23 Dose: 500 mg Documented By: DURAN Albuterol/Ipratropium (Albuterol/Iprat 2.5/0.5mg 3 Ml Ampul.Neb) 3 ml INHALE RQ4H WHILE AWAKE [facility] Last Admin: 08/05/22 08:10 Dose: 3 ml Documented By: ROLY Aspirin (Aspirin Enteric Coated 81 Mg Tablet.) 81 mg PO DAILY [facility] Last Admin: 08/05/22 07:24 Dose: 81 mg Documented By: DURAN Atorvastatin Calcium (Atorvastatin Calcium 80 Mg Tablet) 80 mg PO BEDTIME [facility] Last Admin: 08/04/22 22:46 Dose: 80 mg Documented By: ANGELA Calcium Carbonate/Cholecalciferol (Calcium + Vitamin D 250 Mg Tablet) 500 mg PO DAILY [facility] Last Admin: 08/05/22 07:24 Dose: 500 mg Documented By: DURAN Enoxaparin Sodium (Enoxaparin Sodium 40 Mg/0.4 Ml Syringe) 40 mg SUBCUT Q24H [facility] Last Admin: 08/05/22 07:25 Dose: Not Given Documented By: DURAN Non-Admin Reason: Patient Refused Fluticasone/Vilanterol (Fluticasone/Vilanterol 200/25 Blst.W.Dev) 1 puff INHALE RDAILY [facility] Last Admin: 08/05/22 08:10 Dose: 1 puff Documented By: ROLY Folic Acid (Folic Acid 1 Mg Tablet) 1 mg PO DAILY [facility] Last Admin: 08/05/22 07:24 Dose: 1 mg Documented By: DURAN Glucose (Glucose Gel 15 Gm Gel..Gram.) 15 gm PO Q15M PRN; Protocol PRN Reason: per Hypoglycemia Standing Ord. Dextrose (D10) 250 mls @ 750 mls/hr IV Q15M PRN; Protocol PRN Reason: per Hypoglycemia Standing Ord. Insulin Glargine (Insulin Glargine,Hum.Rec.Anlog 100 Unit/Ml 10 Ml Vial) 15 unit SUBCUT BEDTIME [facility] Last Admin: 08/04/22 22:46 Dose: 15 unit Documented By: ANGELA Insulin Human Lispro (Insulin Lispro 100 Unit/Ml 3 Ml Vial) 0 unit SUBCUT QIDACHS [facility]; Protocol Last Admin: 08/05/22 07:58 Dose: Not Given Documented By: DURAN Non-Admin Reason: No Insulin Coverage Lorazepam (Lorazepam 0.5 Mg Tablet) 0.5 mg PO DAILY PRN PRN Reason: anxiety Last Admin: 08/05/22 09:19 Dose: 0.5 mg Documented By: DURAN Lorazepam (Lorazepam 0.5 Mg Tablet) 0.5 mg PO BEDTIME PRN PRN Reason: Anxiety Last Admin: 08/04/22 22:46 Dose: 0.5 mg Documented By: ANGELA Magnesium Hydroxide (Milk Of Magnesia 30 Ml Oral.Susp) 30 ml PO DAILY PRN PRN Reason: Constipation Last Admin: 08/05/22 07:23 Dose: 30 ml Documented By: DURAN Melatonin (Melatonin 3 Mg Tablet) 6 mg PO BEDTIME PRN PRN Reason: insomnia Last Admin: 08/05/22 02:02 Dose: 6 mg Documented By: ANGELA Multivitamins/Vitamin C (Multivitamin Tablet) 1 tab PO DAILY [facility] Last Admin: 08/05/22 07:24 Dose: 1 tab Documented By: DURAN Omeprazole (Omeprazole 20 Mg Capsule.) 20 mg PO DAILY@0630 [facility] Last Admin: 08/05/22 06:44 Dose: 20 mg Documented By: ANGELA Polyethylene Glycol (Polyethylene Glycol 3350 17 Gm Powd.Pack) 17 gm PO DAILY PRN PRN Reason: Constipation Last Admin: 08/05/22 07:23 Dose: 17 gm Documented By: DURAN Prednisone (Prednisone 10 Mg Tablet) 10 mg PO DAILY [facility] Last Admin: 08/05/22 07:25 Dose: 10 mg Documented By: DURAN Thiamine HCl (Thiamine Hcl 100 Mg Tablet) 100 mg PO DAILY [facility] Last Admin: 08/05/22 07:24 Dose: 100 mg Documented By: DURAN Labs 07/30/22 03:00 08/01/22 16:58 Labs: Laboratory Results - last 24 hr 08/04/22 08/04/22 08/04/22 11:19 16:10 19:52 POC Glucose 201 H 236 H 189 H 08/05/22 07:34 POC Glucose 126 H Assessment and Plan (1) Acute on chronic respiratory failure with hypoxia and hypercapnia: Status: Resolved Plan 72-year-old male with a PMH significant for?asthma/COPD overlap, chronic hypoxemic and hypercapnic respiratory failure, hepatic cirrhosis, hx of alcohol abuse, former smoker who quit 16 years ago, anxiety, HLD, HTN, and hx of left lung cancer?s/p chemo and radiation 10 years ago who presents to the ED with?increasing shortness of breath since last discharge 2 weeks ago. Pt will be admitted to the hospital acute on chronic hypoxemic hypercapnic respiratory failure secondary to COPD exacerbation. Severe constipation-- still constipated despite GoLYTELY, enemas, CT shows severe constipation. Will continue enema, liquid diet, gastrografian study tomorrowt Acute on chronic hypoxemic hypercapnic respiratory failure secondary to COPD exacerbation, overall better continue O2, broncholdilators and Prednisone 10 daily.. I think most of his respiratory difficulty presently stems from this severe constipation ? Diastolic heart failure, normal BNP, at this point don't suspect heart failure and would avoid further diuretics ? Pneumonia no fever, no increase WBC, finding on imaging is old. NO PNA, so no Abx Dysuria x2 weeks, UA negative, symptoms improved HTN-on lower side, hold home meds severe constipation, he is on agresive bowel regimen, Kub yesterday showed mild contipation, will continue bowel regimen and enema as needed CAD/HLD--Continue aspirin, atorvastatin, isosorbide mononitrate, and metoprolol Non insulin dependent diabetes with hyperglycemia-possible steriod use might be contributing continue insulin sliding scale, diabetic diet and glipizide. Mood disorder Continue home meds Normocytic anemia, chronic H&H at baseline, stable Full Code DVT Prophylaxis: Lovenox Need for inpatient: Severe constipation that is impacting respiratory status Time Spent With Patient Time: Total time managing care of this patient today ____ minutes. Quality Stroke Does the patient have a stroke diagnosis?: No VTE Prior VTE?: No VTE Risk Level:: Medical - moderate - high VTE Device Contraindication: Treatment Not Indicated VTE Drug Contraindication: N/A - Med Ordered
[2022-08-05 11:29] LABS: Glucose, Whole Blood 249 mg/dL (60-115)
[2022-08-05] MEDS: Insulin Lispro 100 UNIT/ML 3 ML VIAL SUBCUT ×3 (11:32→21:38)
--- NOTE | 2022-08-05 12:49 | PM.PNGS ---
Subjective Subjective Date of Service: 08/05/22 Interval history: pt doing ok, had some stool and feeling a little better but still a lot of pressure Physical Exam Vital Signs: Vital Signs: Last Vital Signs Temp 97.3 F 08/05/22 07:32 Pulse 108 H 08/05/22 11:43 Resp 20 08/05/22 11:43 BP 114/62 08/05/22 07:32 Pulse Ox 97 08/05/22 07:32 O2 Del Method Nasal Cannula 08/05/22 07:32 O2 Flow Rate 2 08/05/22 07:32 Oxygen Flow Rate 2 07/29/22 21:27 BMI result Body Mass Index 32.3 GI: Other: abdomen is a little softer but still distended and on firmer side. no pain Objective Data Active Medications Acetazolamide (Acetazolamide Sodium 500 Mg Vial) 500 mg IVPUSH BID [facility] Last Admin: 08/05/22 07:23 Dose: 500 mg Documented By: DURAN Albuterol/Ipratropium (Albuterol/Iprat 2.5/0.5mg 3 Ml Ampul.Neb) 3 ml INHALE RQ4H WHILE AWAKE [facility] Last Admin: 08/05/22 11:40 Dose: 3 ml Documented By: ROLY Aspirin (Aspirin Enteric Coated 81 Mg Tablet.Dr) 81 mg PO DAILY [facility] Last Admin: 08/05/22 07:24 Dose: 81 mg Documented By: DURAN Atorvastatin Calcium (Atorvastatin Calcium 80 Mg Tablet) 80 mg PO BEDTIME [facility] Last Admin: 08/04/22 22:46 Dose: 80 mg Documented By: ANGELA Calcium Carbonate/Cholecalciferol (Calcium + Vitamin D 250 Mg Tablet) 500 mg PO DAILY [facility] Last Admin: 08/05/22 07:24 Dose: 500 mg Documented By: DURAN Enoxaparin Sodium (Enoxaparin Sodium 40 Mg/0.4 Ml Syringe) 40 mg SUBCUT Q24H [facility] Last Admin: 08/05/22 07:25 Dose: Not Given Documented By: DURAN Non-Admin Reason: Patient Refused Fluticasone/Vilanterol (Fluticasone/Vilanterol 200/25 Blst.W.Dev) 1 puff INHALE RDAILY [facility] Last Admin: 08/05/22 08:10 Dose: 1 puff Documented By: ROLY Folic Acid (Folic Acid 1 Mg Tablet) 1 mg PO DAILY [facility] Last Admin: 08/05/22 07:24 Dose: 1 mg Documented By: DURAN Glucose (Glucose Gel 15 Gm Gel..Gram.) 15 gm PO Q15M PRN; Protocol PRN Reason: per Hypoglycemia Standing Ord. Dextrose (D10) 250 mls @ 750 mls/hr IV Q15M PRN; Protocol PRN Reason: per Hypoglycemia Standing Ord. Insulin Glargine (Insulin Glargine,Hum.Rec.Anlog 100 Unit/Ml 10 Ml Vial) 15 unit SUBCUT BEDTIME [facility] Last Admin: 08/04/22 22:46 Dose: 15 unit Documented By: ANGELA Insulin Human Lispro (Insulin Lispro 100 Unit/Ml 3 Ml Vial) 0 unit SUBCUT QIDACHS [facility]; Protocol Last Admin: 08/05/22 11:32 Dose: 4 unit Documented By: DURAN Lorazepam (Lorazepam 0.5 Mg Tablet) 0.5 mg PO DAILY PRN PRN Reason: anxiety Last Admin: 08/05/22 09:19 Dose: 0.5 mg Documented By: DURAN Lorazepam (Lorazepam 0.5 Mg Tablet) 0.5 mg PO BEDTIME PRN PRN Reason: Anxiety Last Admin: 08/04/22 22:46 Dose: 0.5 mg Documented By: ANGELA Magnesium Hydroxide (Milk Of Magnesia 30 Ml Oral.Susp) 30 ml PO DAILY PRN PRN Reason: Constipation Last Admin: 08/05/22 07:23 Dose: 30 ml Documented By: DURAN Melatonin (Melatonin 3 Mg Tablet) 6 mg PO BEDTIME PRN PRN Reason: insomnia Last Admin: 08/05/22 02:02 Dose: 6 mg Documented By: ANGELA Multivitamins/Vitamin C (Multivitamin Tablet) 1 tab PO DAILY [facility] Last Admin: 08/05/22 07:24 Dose: 1 tab Documented By: DURAN Omeprazole (Omeprazole 20 Mg Capsule.) 20 mg PO DAILY@0630 [facility] Last Admin: 08/05/22 06:44 Dose: 20 mg Documented By: ANGELA Polyethylene Glycol (Polyethylene Glycol 3350 17 Gm Powd.Pack) 17 gm PO DAILY PRN PRN Reason: Constipation Last Admin: 08/05/22 07:23 Dose: 17 gm Documented By: DURAN Prednisone (Prednisone 10 Mg Tablet) 10 mg PO DAILY [facility] Last Admin: 08/05/22 07:25 Dose: 10 mg Documented By: DURAN Thiamine HCl (Thiamine Hcl 100 Mg Tablet) 100 mg PO DAILY [facility] Last Admin: 08/05/22 07:24 Dose: 100 mg Documented By: DURAN Labs 07/30/22 03:00 08/01/22 16:58 Labs: Laboratory Results - last 24 hr 08/04/22 08/04/22 08/05/22 16:10 19:52 07:34 POC Glucose 236 H 189 H 126 H 08/05/22 11:18 POC Glucose 249 H Procedures Date of Service Date of Service: 08/05/22 Progress Note: A&P Assessment and plan (1) Abdominal distension: Status: Acute Assessment and Plan: this is a sig change in his ordinary bowel habits of diarrhea - ct not showing any obstructive masses but have to consider this. hasnt passed sig stool with bowel prep so consider gastrograffin enema tomorrow for diagnosis and therapeutic effects. pt is in agreement. Time Spent With Patient Time: Total time managing care of this patient today ____ minutes. Quality Stroke Does the patient have a stroke diagnosis?: No VTE Prior VTE?: No VTE Risk Level:: Medical - moderate - high VTE Device Contraindication: Treatment Not Indicated VTE Drug Contraindication: N/A - Med Ordered
[2022-08-05] MEDS: Acetaminophen 325 MG TABLET 650 MG PO (15:37)
[2022-08-05 16:15] LABS: Glucose, Whole Blood 161 mg/dL (60-115)
[2022-08-05 20:48] LABS: Glucose, Whole Blood 154 mg/dL (60-115)
[2022-08-05] MEDS: Atorvastatin Calcium 80 MG TABLET PO (21:37)
[2022-08-05] MEDS: Insulin Glargine,Hum.rec.anlog 100 UNIT/ML 10 ML VIAL 15 UNIT SUBCUT (21:37)
[2022-08-06 04:00] VITALS: BP 119/60; PULSE 94; RESP 18; TEMP 36.6; O2SAT 97
[2022-08-06] MEDS: Omeprazole 20 MG CAPSULE.DR PO (06:19)
[2022-08-06 07:15] VITALS: BP 123/58; PULSE 89; RESP 18; TEMP 36.9; O2SAT 97
[2022-08-06 07:29] LABS: Glucose, Whole Blood 132 mg/dL (60-115)
[2022-08-06] MEDS: Albuterol/Iprat 2.5/0.5MG 3 ML AMPUL.NEB INHALE ×2 (08:09→19:51)
[2022-08-06] MEDS: Fluticasone/Vilanterol 200/25 BLST.W.DEV 1 PUFF INHALE (08:11)
[2022-08-06 08:12] VITALS: PULSE 98; RESP 18; O2SAT 98
[2022-08-06] MEDS: LORazepam 0.5 MG TABLET PO ×2 (08:39→22:40)
[2022-08-06] MEDS: Multivitamin TABLET 1 TAB PO (08:39)
[2022-08-06] MEDS: Aspirin Enteric Coated 81 MG TABLET.DR PO (08:40)
[2022-08-06] MEDS: Thiamine HCL 100 MG TABLET PO (08:40)
[2022-08-06] MEDS: predniSONE 10 MG TABLET PO (08:40)
[2022-08-06] MEDS: Calcium + Vitamin D 250 MG TABLET 500 MG PO (08:40)
[2022-08-06] MEDS: Folic Acid 1 MG TABLET PO (08:40)
[2022-08-06] MEDS: acetaZOLAMIDE sodium 500 MG VIAL IVPUSH ×2 (08:41→22:02)
--- NOTE | 2022-08-06 09:01 | P.PNIM_ITS ---
Subjective Subjective Date of Service: 08/06/22 Interval History: copd exacerbation interval history:Still very constipated, even after GoLYTELY and multiple enemas, there is conflicting report about amout of bowel movment per pt and staff Physical Exam Vital Signs: Vital Signs: Last Vital Signs Temp 98.5 F 08/06/22 07:15 Pulse 98 08/06/22 08:12 Resp 18 08/06/22 08:12 BP 123/58 L 08/06/22 07:15 Pulse Ox 97 08/06/22 07:15 O2 Del Method Nasal Cannula 08/06/22 07:15 O2 Flow Rate 2.0 08/06/22 07:15 Oxygen Flow Rate 2 07/29/22 21:27 BMI result Body Mass Index 32.3 Const: Other: General: AO X 3, no acute distress Resp: CTA bilateral CVS: S1,S2,RRR, leg edema GI: +BS, NT, no distention Skin: No rash Neuro: motor grossly intact Psych: appropriate affect Objective Data Active Medications Acetaminophen (Acetaminophen 325 Mg Tablet) 650 mg PO Q6H PRN PRN Reason: Headache Last Admin: 08/05/22 15:37 Dose: 650 mg Documented By: DURAN Acetazolamide (Acetazolamide Sodium 500 Mg Vial) 500 mg IVPUSH BID [facility] Last Admin: 08/06/22 08:41 Dose: 500 mg Documented By: PEYTON Albuterol/Ipratropium (Albuterol/Iprat 2.5/0.5mg 3 Ml Ampul.Neb) 3 ml INHALE RQ4H WHILE AWAKE [facility] Last Admin: 08/06/22 08:09 Dose: 3 ml Documented By: ARELI Aspirin (Aspirin Enteric Coated 81 Mg Tablet.) 81 mg PO DAILY [facility] Last Admin: 08/06/22 08:40 Dose: 81 mg Documented By: PEYTON Atorvastatin Calcium (Atorvastatin Calcium 80 Mg Tablet) 80 mg PO BEDTIME [facility] Last Admin: 08/05/22 21:37 Dose: 80 mg Documented By: ROSALINDA Calcium Carbonate/Cholecalciferol (Calcium + Vitamin D 250 Mg Tablet) 500 mg PO DAILY [facility] Last Admin: 08/06/22 08:40 Dose: 500 mg Documented By: PEYTON Enoxaparin Sodium (Enoxaparin Sodium 40 Mg/0.4 Ml Syringe) 40 mg SUBCUT Q24H [facility] Last Admin: 08/06/22 08:46 Dose: Not Given Documented By: PEYTON Non-Admin Reason: Patient Refused Fluticasone/Vilanterol (Fluticasone/Vilanterol 200/25 Blst.W.Dev) 1 puff INHALE RDAILY [facility] Last Admin: 08/06/22 08:11 Dose: 1 puff Documented By: RADHARICMadi Folic Acid (Folic Acid 1 Mg Tablet) 1 mg PO DAILY [facility] Last Admin: 08/06/22 08:40 Dose: 1 mg Documented By: PEYTON Glucose (Glucose Gel 15 Gm Gel..Gram.) 15 gm PO Q15M PRN; Protocol PRN Reason: per Hypoglycemia Standing Ord. Dextrose (D10) 250 mls @ 750 mls/hr IV Q15M PRN; Protocol PRN Reason: per Hypoglycemia Standing Ord. Insulin Glargine (Insulin Glargine,Hum.Rec.Anlog 100 Unit/Ml 10 Ml Vial) 15 unit SUBCUT BEDTIME [facility] Last Admin: 08/05/22 21:37 Dose: 15 unit Documented By: ROSALIDNA Insulin Human Lispro (Insulin Lispro 100 Unit/Ml 3 Ml Vial) 0 unit SUBCUT QIDACHS [facility]; Protocol Last Admin: 08/06/22 08:08 Dose: Not Given Documented By: PEYTON Non-Admin Reason: No Insulin Coverage Lorazepam (Lorazepam 0.5 Mg Tablet) 0.5 mg PO DAILY PRN PRN Reason: anxiety Last Admin: 08/06/22 08:39 Dose: 0.5 mg Documented By: PEYTON Lorazepam (Lorazepam 0.5 Mg Tablet) 0.5 mg PO BEDTIME PRN PRN Reason: Anxiety Last Admin: 08/05/22 22:31 Dose: 0.5 mg Documented By: LYSLauren Magnesium Hydroxide (Milk Of Magnesia 30 Ml Oral.Susp) 30 ml PO DAILY PRN PRN Reason: Constipation Last Admin: 08/05/22 07:23 Dose: 30 ml Documented By: DURAN Melatonin (Melatonin 3 Mg Tablet) 6 mg PO BEDTIME PRN PRN Reason: insomnia Last Admin: 08/05/22 02:02 Dose: 6 mg Documented By: ANGELA Multivitamins/Vitamin C (Multivitamin Tablet) 1 tab PO DAILY [facility] Last Admin: 08/06/22 08:39 Dose: 1 tab Documented By: PEYTON Omeprazole (Omeprazole 20 Mg Capsule.) 20 mg PO DAILY@0630 [facility] Last Admin: 08/06/22 06:19 Dose: 20 mg Documented By: ROSALINDA Polyethylene Glycol (Polyethylene Glycol 3350 17 Gm Powd.Pack) 17 gm PO DAILY PRN PRN Reason: Constipation Last Admin: 08/05/22 07:23 Dose: 17 gm Documented By: DURAN Prednisone (Prednisone 10 Mg Tablet) 10 mg PO DAILY [facility] Last Admin: 08/06/22 08:40 Dose: 10 mg Documented By: PEYTON Thiamine HCl (Thiamine Hcl 100 Mg Tablet) 100 mg PO DAILY [facility] Last Admin: 08/06/22 08:40 Dose: 100 mg Documented By: PEYTON Labs 07/30/22 03:00 08/01/22 16:58 Labs: Laboratory Results - last 24 hr 08/05/22 08/05/22 08/05/22 11:18 16:05 20:33 POC Glucose 249 H 161 H 154 H 08/06/22 07:13 POC Glucose 132 H Assessment and Plan (1) Acute on chronic respiratory failure with hypoxia and hypercapnia: Status: Resolved Plan 72-year-old male with a PMH significant for?asthma/COPD overlap, chronic hypoxemic and hypercapnic respiratory failure, hepatic cirrhosis, hx of alcohol abuse, former smoker who quit 16 years ago, anxiety, HLD, HTN, and hx of left lung cancer?s/p chemo and radiation 10 years ago who presents to the ED with?increasing shortness of breath since last discharge 2 weeks ago. Pt will be admitted to the hospital acute on chronic hypoxemic hypercapnic respiratory failure secondary to COPD exacerbation. Severe constipation-- still constipated despite GoLYTELY, enemas, CT shows severe constipation but no obstruction. Surgery and GI have been following him. Acute on chronic hypoxemic hypercapnic respiratory failure secondary to COPD exacerbation, overall better continue O2, broncholdilators, stop Prednisone. I think most of his respiratory difficulty presently stems from this severe constipation Diastolic heart failure, normal BNP, at this point don't suspect heart failure and would avoid further diuretics ?Pneumonia no fever, no increase WBC, finding on imaging is old. NO PNA, so no Abx Dysuria x2 weeks, UA negative, symptoms improved HTN--continue BP meds CAD/HLD--Continue aspirin, atorvastatin, isosorbide mononitrate, and metoprolol Non insulin dependent diabetes with hyperglycemia--POC are much better continue insulin sliding scale, diabetic diet and glipizide. Mood disorder Continue home meds Normocytic anemia, chronic H&H at baseline, stable Full Code DVT Prophylaxis: Lovenox Need for inpatient: Severe constipation that is impacting respiratory status and is undergoing more evaluation for that Time Spent With Patient Time: Total time managing care of this patient today ____ minutes. Quality Stroke Does the patient have a stroke diagnosis?: No VTE Prior VTE?: No VTE Risk Level:: Medical - moderate - high VTE Device Contraindication: Treatment Not Indicated VTE Drug Contraindication: N/A - Med Ordered
[2022-08-06] MEDS: Acetaminophen 325 MG TABLET 650 MG PO ×2 (09:48→20:20)
--- NOTE | 2022-08-06 10:00 | P.PNGS_ITS ---
Subjective Subjective Date of Service: 08/06/22 <Nely Lopes PA-C - Last Filed: 08/06/22 10:06> 08/07/22 <Crescencio Arthur MD - Last Filed: 08/07/22 11:53> Interval history: Still feels very distended, minimally improved. Passed a large amount of flatus this morning but no BM. Only had small bowel movement following go lytely and multiple enemas. Denies abd pain, nausea or vomiting. He has been ambulating in his room. <Nely Lopes PA-C - Last Filed: 08/06/22 10:06> Physical Exam Vital Signs: Vital Signs: Last Vital Signs Temp 98.5 F 08/06/22 07:15 Pulse 98 08/06/22 08:12 Resp 18 08/06/22 08:12 BP 123/58 L 08/06/22 07:15 Pulse Ox 97 08/06/22 07:15 O2 Del Method Nasal Cannula 08/06/22 07:15 O2 Flow Rate 2.0 08/06/22 07:15 Oxygen Flow Rate 2 07/29/22 21:27 BMI result Body Mass Index 32.3 <Nely Lopes PA-C - Last Filed: 08/06/22 10:06> Const: General: comfortable, no acute distress and alert <ISAÍAS oBlaños Last Filed: 08/06/22 10:06> Orientation/consciousness: patient oriented x3 <Nely Lopes PA-C - Last Filed: 08/06/22 10:06> Resp: Other: on supplemental O2 <ISAÍAS Bolaños Last Filed: 08/06/22 10:06> Effort & Inspection: normal respiratory effort <ISAÍAS Bolaños Last Filed: 08/06/22 10:06> GI: Inspection: Yes distended (round, protuberant abd) <ISAÍAS Bolaños Last Filed: 08/06/22 10:06> Palpation (GI): Soft to palpation, nontender, no guarding and not rigid <ISAÍAS Bolaños Last Filed: 08/06/22 10:06> Percussion: Yes tympanic to percussion <Nely Lopes PA-C - Last Filed: 08/06/22 10:06> Skin: General skin exam: no rashes or lesions noted <Nely Lopes PA-C - Last Filed: 08/06/22 10:06> Neuro: General: patient oriented x3 and moves all extremities <Nely Lopes PA-C - Last Filed: 08/06/22 10:06> Objective Data Active Medications Acetaminophen (Acetaminophen 325 Mg Tablet) 650 mg PO Q6H PRN PRN Reason: Headache Last Admin: 08/06/22 09:48 Dose: 650 mg Documented By: PEYTON Acetazolamide (Acetazolamide Sodium 500 Mg Vial) 500 mg IVPUSH BID [facility] Last Admin: 08/06/22 08:41 Dose: 500 mg Documented By: PEYTON Albuterol/Ipratropium (Albuterol/Iprat 2.5/0.5mg 3 Ml Ampul.Neb) 3 ml INHALE RQ4H WHILE AWAKE [facility] Last Admin: 08/06/22 08:09 Dose: 3 ml Documented By: ARELI Aspirin (Aspirin Enteric Coated 81 Mg Tablet.Dr) 81 mg PO DAILY [facility] Last Admin: 08/06/22 08:40 Dose: 81 mg Documented By: PEYTON Atorvastatin Calcium (Atorvastatin Calcium 80 Mg Tablet) 80 mg PO BEDTIME [facility] Last Admin: 08/05/22 21:37 Dose: 80 mg Documented By: ROSALINDA Calcium Carbonate/Cholecalciferol (Calcium + Vitamin D 250 Mg Tablet) 500 mg PO DAILY [facility] Last Admin: 08/06/22 08:40 Dose: 500 mg Documented By: PEYTON Enoxaparin Sodium (Enoxaparin Sodium 40 Mg/0.4 Ml Syringe) 40 mg SUBCUT Q24H [facility] Last Admin: 08/06/22 08:46 Dose: Not Given Documented By: PEYTON Non-Admin Reason: Patient Refused Fluticasone/Vilanterol (Fluticasone/Vilanterol 200/25 Blst.W.Dev) 1 puff INHALE RDAILY [facility] Last Admin: 08/06/22 08:11 Dose: 1 puff Documented By: ARELI Folic Acid (Folic Acid 1 Mg Tablet) 1 mg PO DAILY [facility] Last Admin: 08/06/22 08:40 Dose: 1 mg Documented By: PEYTON Glucose (Glucose Gel 15 Gm Gel..Gram.) 15 gm PO Q15M PRN; Protocol PRN Reason: per Hypoglycemia Standing Ord. Dextrose (D10) 250 mls @ 750 mls/hr IV Q15M PRN; Protocol PRN Reason: per Hypoglycemia Standing Ord. Insulin Glargine (Insulin Glargine,Hum.Rec.Anlog 100 Unit/Ml 10 Ml Vial) 15 unit SUBCUT BEDTIME [facility] Last Admin: 08/05/22 21:37 Dose: 15 unit Documented By: ROSALINDA Insulin Human Lispro (Insulin Lispro 100 Unit/Ml 3 Ml Vial) 0 unit SUBCUT QIDACHS [facility]; Protocol Last Admin: 08/06/22 08:08 Dose: Not Given Documented By: PEYTON Non-Admin Reason: No Insulin Coverage Lorazepam (Lorazepam 0.5 Mg Tablet) 0.5 mg PO DAILY PRN PRN Reason: anxiety Last Admin: 08/06/22 08:39 Dose: 0.5 mg Documented By: PEYTON Lorazepam (Lorazepam 0.5 Mg Tablet) 0.5 mg PO BEDTIME PRN PRN Reason: Anxiety Last Admin: 08/05/22 22:31 Dose: 0.5 mg Documented By: OSIEL Magnesium Hydroxide (Milk Of Magnesia 30 Ml Oral.Susp) 30 ml PO DAILY PRN PRN Reason: Constipation Last Admin: 08/05/22 07:23 Dose: 30 ml Documented By: DURAN Melatonin (Melatonin 3 Mg Tablet) 6 mg PO BEDTIME PRN PRN Reason: insomnia Last Admin: 08/05/22 02:02 Dose: 6 mg Documented By: ANGELA Multivitamins/Vitamin C (Multivitamin Tablet) 1 tab PO DAILY [facility] Last Admin: 08/06/22 08:39 Dose: 1 tab Documented By: PEYTON Omeprazole (Omeprazole 20 Mg Capsule.) 20 mg PO DAILY@0630 [facility] Last Admin: 08/06/22 06:19 Dose: 20 mg Documented By: ROSALINDA Polyethylene Glycol (Polyethylene Glycol 3350 17 Gm Powd.Pack) 17 gm PO DAILY PRN PRN Reason: Constipation Last Admin: 08/05/22 07:23 Dose: 17 gm Documented By: DURAN Prednisone (Prednisone 10 Mg Tablet) 10 mg PO DAILY [facility] Last Admin: 08/06/22 08:40 Dose: 10 mg Documented By: PEYTON Thiamine HCl (Thiamine Hcl 100 Mg Tablet) 100 mg PO DAILY [facility] Last Admin: 08/06/22 08:40 Dose: 100 mg Documented By: PEYTON <Nely Lopes PA-C - Last Filed: 08/06/22 10:06> Labs CBC & Chem 7: 07/30/22 03:00 08/01/22 16:58 <Nely Lopes PA-C - Last Filed: 08/06/22 10:06> Labs: Laboratory Results - last 24 hr 08/05/22 08/05/22 08/05/22 11:18 16:05 20:33 POC Glucose 249 H 161 H 154 H 08/06/22 07:13 POC Glucose 132 H <Nely Lopes PA-C - Last Filed: 08/06/22 10:06> Procedures Date of Service Date of Service: 08/06/22 <Nely Lopes PA-C - Last Filed: 08/06/22 10:06> Progress Note: A&P Assessment and plan (1) Abdominal distension: Status: Acute <Nely Lopes PA-C - Last Filed: 08/06/22 10:06> Assessment and Plan: seen and examined independently - agree with DARRYL Lopes <Crescencio Arthur MD - Last Filed: 08/07/22 11:53> Assessment and Plan: New abdominal distention and colon FOS without significant results following bowel prep and multiple enemas. CT performed which does not show any pathology. Abdominal exam is pretty much unchanged. Will plan for gastrografin enema this morning. Patient is in agreement. <ISAÍAS Bolaños Last Filed: 08/06/22 10:06> Time Spent With Patient Time: Total time managing care of this patient today ____ minutes. <ISAÍAS Bolaños Last Filed: 08/06/22 10:06> Quality Stroke Does the patient have a stroke diagnosis?: No <Nely Lopes PA-C - Last Filed: 08/06/22 10:06> VTE Prior VTE?: No <Nely Lopes PA-C - Last Filed: 08/06/22 10:06> VTE Risk Level:: Medical - moderate - high <Nely Lopes PA-C - Last Filed: 08/06/22 10:06> VTE Device Contraindication: Treatment Not Indicated <Nely Lopes PA-C - Last Filed: 08/06/22 10:06> VTE Drug Contraindication: N/A - Med Ordered <Nely Lopes PA-C - Last Filed: 08/06/22 10:06>
[2022-08-06 11:14] LABS: Glucose, Whole Blood 222 mg/dL (60-115)
[2022-08-06] MEDS: Diatrizoate Meglumine, Sodium 120 ML SOLUTION 720 ML PR (13:22)
[2022-08-06 15:23] VITALS: BP 124/72; PULSE 89; RESP 17; TEMP 36.6; O2SAT 97
[2022-08-06 16:31] LABS: Glucose, Whole Blood 229 mg/dL (60-115)
[2022-08-06] MEDS: Insulin Lispro 100 UNIT/ML 3 ML VIAL SUBCUT ×2 (16:57→22:02)
[2022-08-06 19:19] VITALS: BP 129/71; PULSE 96; RESP 17; TEMP 36; O2SAT 96
[2022-08-06 19:55] VITALS: PULSE 87; RESP 17; O2SAT 98
[2022-08-06 21:07] LABS: Glucose, Whole Blood 163 mg/dL (60-115)
[2022-08-06] MEDS: Atorvastatin Calcium 80 MG TABLET PO (22:02)
[2022-08-06] MEDS: Insulin Glargine,Hum.rec.anlog 100 UNIT/ML 10 ML VIAL 15 UNIT SUBCUT (22:03)
[2022-08-07 03:20] VITALS: BP 127/60; PULSE 96; RESP 18; TEMP 36.5; O2SAT 98
[2022-08-07] MEDS: Omeprazole 20 MG CAPSULE.DR PO (06:21)
[2022-08-07 07:40] LABS: Glucose, Whole Blood 146 mg/dL (60-115)
[2022-08-07 08:00] VITALS: BP 124/70; PULSE 82; RESP 16; TEMP 36.6; O2SAT 98
[2022-08-07] MEDS: Albuterol/Iprat 2.5/0.5MG 3 ML AMPUL.NEB INHALE ×3 (08:03→15:25)
[2022-08-07 08:04] VITALS: PULSE 72; RESP 20; O2SAT 97
--- NOTE | 2022-08-07 08:23 | PM.PNGS ---
Subjective Subjective Date of Service: 08/07/22 <Nely Lopes PA-C - Last Filed: 08/07/22 08:44> 08/07/22 <Crescencio Arthur MD - Last Filed: 08/07/22 11:53> Interval history: Has had multiple BM since gastrografin enema yesterday. Feels less bloated. Feels hungry. <Nely Lopes PA-C - Last Filed: 08/07/22 08:44> Physical Exam Vital Signs: Vital Signs: Last Vital Signs Temp 97.8 F 08/07/22 08:00 Pulse 72 08/07/22 08:04 Resp 20 08/07/22 08:04 BP 124/70 08/07/22 08:00 Pulse Ox 98 08/07/22 08:00 O2 Del Method Nasal Cannula 08/07/22 08:00 O2 Flow Rate 2 08/07/22 08:00 Oxygen Flow Rate 2 07/29/22 21:27 BMI result Body Mass Index 32.3 <Nely Lopes PA-C - Last Filed: 08/07/22 08:44> Const: General: comfortable, no acute distress and alert <Nely Lopes PA-C - Last Filed: 08/07/22 08:44> Orientation/consciousness: patient oriented x3 <Nely Lopes PA-C - Last Filed: 08/07/22 08:44> GI: Inspection: Yes distended (slightly decreased) <Nely Lopes PA-C - Last Filed: 08/07/22 08:44> Palpation (GI): Soft to palpation, nontender, no guarding and not rigid <Nely Lopes PA-C - Last Filed: 08/07/22 08:44> Skin: General skin exam: no rashes or lesions noted <ISAÍAS Bolaños Last Filed: 08/07/22 08:44> Neuro: General: patient oriented x3 and moves all extremities <ISAÍAS Bolaños Last Filed: 08/07/22 08:44> Objective Data Active Medications Acetaminophen (Acetaminophen 325 Mg Tablet) 650 mg PO Q6H PRN PRN Reason: Headache Last Admin: 08/06/22 20:20 Dose: 650 mg Documented By: ROSALINDA Acetazolamide (Acetazolamide Sodium 500 Mg Vial) 500 mg IVPUSH BID [facility] Last Admin: 08/06/22 22:02 Dose: 500 mg Documented By: ROSALINDA Albuterol/Ipratropium (Albuterol/Iprat 2.5/0.5mg 3 Ml Ampul.Neb) 3 ml INHALE RQ4H WHILE AWAKE [facility] Last Admin: 08/07/22 08:03 Dose: 3 ml Documented By: JULIAN Aspirin (Aspirin Enteric Coated 81 Mg Tablet.Dr) 81 mg PO DAILY [facility] Last Admin: 08/06/22 08:40 Dose: 81 mg Documented By: PEYTON Atorvastatin Calcium (Atorvastatin Calcium 80 Mg Tablet) 80 mg PO BEDTIME [facility] Last Admin: 08/06/22 22:02 Dose: 80 mg Documented By: ROSALINDA Calcium Carbonate/Cholecalciferol (Calcium + Vitamin D 250 Mg Tablet) 500 mg PO DAILY [facility] Last Admin: 08/06/22 08:40 Dose: 500 mg Documented By: PEYTON Enoxaparin Sodium (Enoxaparin Sodium 40 Mg/0.4 Ml Syringe) 40 mg SUBCUT Q24H [facility] Last Admin: 08/06/22 08:46 Dose: Not Given Documented By: PEYTON Non-Admin Reason: Patient Refused Fluticasone/Vilanterol (Fluticasone/Vilanterol 200/25 Blst.W.Dev) 1 puff INHALE RDAILY [facility] Last Admin: 08/06/22 08:11 Dose: 1 puff Documented By: ARELI Folic Acid (Folic Acid 1 Mg Tablet) 1 mg PO DAILY [facility] Last Admin: 08/06/22 08:40 Dose: 1 mg Documented By: PEYTON Glucose (Glucose Gel 15 Gm Gel..Gram.) 15 gm PO Q15M PRN; Protocol PRN Reason: per Hypoglycemia Standing Ord. Dextrose (D10) 250 mls @ 750 mls/hr IV Q15M PRN; Protocol PRN Reason: per Hypoglycemia Standing Ord. Insulin Glargine (Insulin Glargine,Hum.Rec.Anlog 100 Unit/Ml 10 Ml Vial) 15 unit SUBCUT BEDTIME [facility] Last Admin: 08/06/22 22:03 Dose: 15 unit Documented By: ROSALINDA Insulin Human Lispro (Insulin Lispro 100 Unit/Ml 3 Ml Vial) 0 unit SUBCUT QIDAS [facility]; Protocol Last Admin: 08/06/22 22:02 Dose: 2 unit Documented By: ROSALINDA Lorazepam (Lorazepam 0.5 Mg Tablet) 0.5 mg PO DAILY PRN PRN Reason: anxiety Last Admin: 08/06/22 08:39 Dose: 0.5 mg Documented By: PEYTON Lorazepam (Lorazepam 0.5 Mg Tablet) 0.5 mg PO BEDTIME PRN PRN Reason: Anxiety Last Admin: 08/06/22 22:40 Dose: 0.5 mg Documented By: ROSALINDA Magnesium Hydroxide (Milk Of Magnesia 30 Ml Oral.Susp) 30 ml PO DAILY PRN PRN Reason: Constipation Last Admin: 08/05/22 07:23 Dose: 30 ml Documented By: DURAN Melatonin (Melatonin 3 Mg Tablet) 6 mg PO BEDTIME PRN PRN Reason: insomnia Last Admin: 08/05/22 02:02 Dose: 6 mg Documented By: ANGELA Multivitamins/Vitamin C (Multivitamin Tablet) 1 tab PO DAILY [facility] Last Admin: 08/06/22 08:39 Dose: 1 tab Documented By: PEYTON Omeprazole (Omeprazole 20 Mg Capsule.Dr) 20 mg PO DAILY@0630 [facility] Last Admin: 08/07/22 06:21 Dose: 20 mg Documented By: ROSALINDA Polyethylene Glycol (Polyethylene Glycol 3350 17 Gm Powd.Pack) 17 gm PO DAILY PRN PRN Reason: Constipation Last Admin: 08/05/22 07:23 Dose: 17 gm Documented By: DURAN Prednisone (Prednisone 10 Mg Tablet) 10 mg PO DAILY [facility] Last Admin: 08/06/22 08:40 Dose: 10 mg Documented By: PEYTON Thiamine HCl (Thiamine Hcl 100 Mg Tablet) 100 mg PO DAILY [facility] Last Admin: 08/06/22 08:40 Dose: 100 mg Documented By: PEYTON <Nely Lopes PA-C - Last Filed: 08/07/22 08:44> Labs CBC & Chem 7: 07/30/22 03:00 08/01/22 16:58 <Nely Lopes PA-C - Last Filed: 08/07/22 08:44> Labs: Laboratory Results - last 24 hr 08/06/22 08/06/22 08/06/22 11:04 16:19 20:54 POC Glucose 222 H 229 H 163 H 08/07/22 07:16 POC Glucose 146 H <Nely Lopes PA-C - Last Filed: 08/07/22 08:44> Procedures Date of Service Date of Service: 08/07/22 <Nely Lopes PA-C - Last Filed: 08/07/22 08:44> Progress Note: A&P Assessment and plan (1) Abdominal distension: Status: Acute <Nely Lopes PA-C - Last Filed: 08/07/22 08:44> Assessment and Plan: denies abdl pain hungry and wants to eat passing a lot of stools abd soft, protruberant diet as tolerated seen and examined independently <Crescencio Arthur MD - Last Filed: 08/07/22 11:53> Assessment and Plan: New abdominal distention and colon FOS without significant results following bowel prep and multiple enemas. CT performed which does not show any pathology. Gastrografin enema yesterday showed no obstructive or constrictive lesion and scattered stool seen throughout the colon. Has now had multiple BM. Abd remains distended but this may be his baseline. Can advance diet as tolerated. Continue bowel regimen upon discharge. <Nely Lopes PA-C - Last Filed: 08/07/22 08:44> Time Spent With Patient Time: Total time managing care of this patient today ____ minutes. <Nely Lopes PA-C - Last Filed: 08/07/22 08:44> Quality Stroke Does the patient have a stroke diagnosis?: No <Nely Lopes PA-C - Last Filed: 08/07/22 08:44> VTE Prior VTE?: No <Nely Lopes PA-C - Last Filed: 08/07/22 08:44> VTE Risk Level:: Medical - moderate - high <Nely Lopes PA-C - Last Filed: 08/07/22 08:44> VTE Device Contraindication: Treatment Not Indicated <Nely Lopes PA-C - Last Filed: 08/07/22 08:44> VTE Drug Contraindication: N/A - Med Ordered <Nely Lopes PA-C - Last Filed: 08/07/22 08:44>
[2022-08-07] MEDS: predniSONE 10 MG TABLET PO (08:29)
[2022-08-07] MEDS: acetaZOLAMIDE sodium 500 MG VIAL IVPUSH (08:29)
[2022-08-07] MEDS: Multivitamin TABLET 1 TAB PO (08:29)
[2022-08-07] MEDS: Folic Acid 1 MG TABLET PO (08:29)
[2022-08-07] MEDS: Calcium + Vitamin D 250 MG TABLET 500 MG PO (08:29)
[2022-08-07] MEDS: Thiamine HCL 100 MG TABLET PO (08:29)
[2022-08-07] MEDS: Aspirin Enteric Coated 81 MG TABLET.DR PO (08:29)
[2022-08-07 11:40] LABS: Glucose, Whole Blood 253 mg/dL (60-115)
[2022-08-07] MEDS: Insulin Lispro 100 UNIT/ML 3 ML VIAL SUBCUT (12:03)
[2022-08-07 12:20] VITALS: PULSE 74; RESP 20; O2SAT 97
[2022-08-07] MEDS: LORazepam 0.5 MG TABLET PO (14:46)
--- NOTE | 2022-08-07 15:09 | PM.DS ---
DS: Providers Provider Date of Service: 08/07/22 Date of admission: 07/29/22 23:53 Date of discharge: 08/07/22 Primary care physician: Anne-Marie Muro MD Consults: 07/30/22 08:00 Consult to Pulmonology Routine Consulting Provider: [facility] Pulmonology Services Reason for consultation: acute hypoxemic respirtaory failure /copd Has provider been notified: No 08/04/22 13:27 Consult to General Surgery Routine Consulting Provider: [facility] General Surgeons Reason for consultation: severe abdominal distention, constipation Has provider been notified: No DS: Diagnosis Discharge Diagnosis (1) Abdominal distension: Status: Acute (2) Constipation: Status: Inactive (3) COPD exacerbation: Status: Resolved DS: Summary Hospital Course Hospital Course: Chief Complaint: sob 72M PMH severe persistent asthma/COPD overlap, chronic hypoxemic and hypercapnic respiratory failure, hepatic steatosis, etoh dependence, former smoker who quit 16 years ago, anxiety, HLD, HTN, and hx of left lung cancer?s/p chemo and radiation 10 years ago who presented to the ED with?increasing shortness of breath. patient reports 2-3 days? worsening cough, unable to bring up phlegm, inctreasing o2 requirements, inability to tolerate baseline exertion due to sob. in ED found to be hypoxic to 88% on @L, cxr unremarkable, vbg with at baseline 7.36, pco2 88. Hospital course: Acute on chronic hypoxemic hypercapnic respiratory failure secondary to COPD exacerbation. He was treated with oxygen, bronchodilators and steroid and was evaluated by pulmonology and recommends diuresis as well, and overall is doing better, there is no hypoxia, will discharge with Prednisone for few more days, to continue home O2 and visisiting nurse services upon discharge ?no fever, no increase WBC, finding on imaging is old. NO PNA, so no Abx. Dysuria x2 weeks, UA negative, symptoms improved HTN--resume home medication CAD/HLD--Continue aspirin, atorvastatin, isosorbide mononitrate, and metoprolol Non insulin dependent diabete, resume home medication Mood disorder Continue home meds Normocytic anemia, chronic H&H at baseline, stable Constipation/some abdominal distension: Patient was given bowel prep and enemas ,CT Abdomen done intially showed dilation/large amount of stool in colon-seen by surgery and subsequently Gastrografin enema yesterday showed no obstructive or constrictive lesion and scattered stool seen throughout the colon. Has now had multiple BM. Abd remains distended but this may be his baseline, diet advanced, patient is tolerating diet well , Continue bowel regimen upon discharge. Above management discussed with the patient and patient family at bedside in detail length, time spent 50 minute. The understand and in agreement with above plan. Time Spent with Patient Time attestation: Total time managing care of this patient today ____ minutes. Discharge coordination time: Greater than 30 minutes Quality: Safe Use of Opioids Does Pt have an Active Cancer Diagnosis on the Problem List?: No Quality: Stroke Does the patient have a stroke diagnosis?: No Physical Exam Vital Signs: Vital Signs: Last Vital Signs Temp 97.8 F 08/07/22 08:00 Pulse 74 08/07/22 12:20 Resp 20 08/07/22 12:20 BP 124/70 08/07/22 08:00 Pulse Ox 98 08/07/22 08:00 O2 Del Method Nasal Cannula 08/07/22 08:00 O2 Flow Rate 2 08/07/22 08:00 Oxygen Flow Rate 2 07/29/22 21:27 BMI result Body Mass Index 32.3 General: AO X 3, no acute distress Resp:? CTA bilateral CVS: S1,S2,RRR, leg edema GI: +BS, NT, no distention Skin: No rash Neuro:? motor grossly intact Psych: appropriate affect DS: Data Data Completed and Pending Labs on day of discharge: Laboratory Results - last 24 hr 08/06/22 08/06/22 08/07/22 16:19 20:54 07:16 POC Glucose 229 H 163 H 146 H 08/07/22 11:32 POC Glucose 253 H Imaging Chest x-ray: Radiologist's impression: ITS Impressions Chest X-Ray 07/29/22 22:05 IMPRESSION: No evidence for acute disease in the chest. Chest CT 07/30/22 15:14 IMPRESSION: Stable chest CT. Partial left upper lobe atelectasis and consolidation with air bronchograms similar to previous exams. Stable small pulmonary nodules. Severe coronary artery calcification. Fleischner guidelines were followed. KUB X-Ray 08/02/22 18:48 IMPRESSION: 1. Mild constipation. No acute process seen. 2. Mild spondylosis lower dorsal and upper lumbar spine. Abdomen/Pelvis CT 08/04/22 14:14 IMPRESSION: Mild diffuse dilatation of the colon with a large amount of stool consistent with constipation. No discrete obstructing lesion is seen. Trace left pneumobilia. Correlate for prior papillotomy. 5 mm nonobstructing calculus upper right kidney. Fleischner guidelines were followed. Enema w/Water Soluble 08/06/22 13:10 IMPRESSION: Gastrografin enema reveals no obstructive or constrictive lesion. There is scattered stool seen throughout the colon. Discharge Plan Discharge Anticipated Discharge Date/Time: 08/01/22 09:58 Patient Disposition: Home Health Service Discharge Diagnosis: Acute on chronic hypoxic respiratory failure possible sec to copd excerebation,constipation Referrals: Anne-Marie Muro MD [Primary Care Provider] - 1 Week Discharge Medications: New prednisone 10 mg tablet 10 mg PO DAILY Qty: 3 0RF polyethylene glycol 3350 17 gram Powder In Packet 17 g PO DAILY PRN (Reason: Constipation) Qty: 30 0RF Continued multivitamin [Daily-Kathleen] Tablet 1 tab PO DAILY Qty: 90 3RF metformin 1,000 mg tablet 1,000 mg PO BID Qty: 180 4RF (DME) FreeStyle Lite Strips Strip See Rx Instructions .Route Qty: 100 5RF Rx Instructions: check fasting glucose BID ac (DME) blood-glucose meter [FreeStyle Lite Meter] Kit See Rx Instructions .Route Qty: 1 0RF Rx Instructions: As directed atorvastatin 80 mg tablet 80 mg PO BEDTIME Qty: 90 3RF metoprolol tartrate 25 mg tablet 25 mg PO BID Qty: 180 1RF lorazepam 0.5 mg tablet 0.5 mg PO DAILY PRN (Reason: anxiety) Qty: 30 0RF isosorbide mononitrate 30 mg tablet extended release 24 hr 30 mg PO DAILY budesonide-formoterol [Symbicort] 160-4.5 mcg/actuation Hfa Aerosol Inhaler 2 puff INHALATION DAILY omeprazole 20 mg capsule,delayed release(DR/EC) 20 mg PO DAILY@0630 glipizide 5 mg Tablet 5 mg PO DAILY@1700 escitalopram oxalate 20 mg tablet 10 mg PO DAILY calcium carbonate-vitamin D3 600 mg-10 mcg (400 unit) tablet 1 tab PO DAILY aspirin 81 mg Tablet,Delayed Release (Dr/Ec) 81 mg PO DAILY hydrochlorothiazide 25 mg tablet 25 mg PO QAM Qty: 30 0RF gabapentin 100 mg capsule 100 mg PO TID Qty: 30 0RF albuterol sulfate 90 mcg/actuation HFA aerosol inhaler 2 puff PO Q4H PRN (Reason: Shortness Of Breath Or Wheezing) ipratropium-albuterol 0.5 mg-3 mg(2.5 mg base)/3 mL solution for nebulization 3 ml inhalation Q6H PRN (Reason: COPD) (DME) Oxygen Home Use Kit See Rx Instructions .Route Rx Instructions: As directed (DME) nebulizers [facility] Rx Instructions .Route Rx Instructions: As directed Discharge Orders: Discharge Order (Routine); Ordered 08/07/22 Ordered By: Kaya Gutierrez Diet: Diabetic diet Activity on Discharge: As tolerated Stand Alone Forms: Patient Portal Discharge page Care Plan Goals: Full recovery Health Concerns: chronic respiratory failure COPD Plan of Treatment: continue using oxygen as before take prednisone as directed use inhalers as directed and follow up with your Doctor in a week Assessment: as above
[2022-08-07 15:10] VITALS: BP 132/68; PULSE 112; RESP 18; TEMP 36.6; O2SAT 94
[2022-08-07 15:25] VITALS: PULSE 75; RESP 20; O2SAT 96
--- NOTE | 2022-08-07 15:34 | P.F2F_ITS ---
Service Date Service Date: 08/07/22 Encounter Date of encounter: 08/07/22 Encounter: copd ,constipation Reasons for Services Signs and symptoms assessed: Monitor oxygen saturation, shortness of breath, constipation. Reason for [facility]: medication management, medication treatment and teach disease management MD Overseeing Care: Anne-Marie Muro Homebound: Leaving the home is medically contraindicated at this time without the asist of a device and/or another person due th the listed conditions above and below. Reason homebound: weakness related to hospital stay Homebound supporting statement: Patient has multiple comorbidities including COPD exacerbation, constipation , generalized weak post hospitalization stay-need help to go to appointments. Certification: Based on the above findings, I certify that this patient is confined to the home and needs intermittent [facility] care, physical therapy and/or speech therapy, or continues to need occupational therapy. The patient is under my care, and I have initiated the establishment of the plan of care. The patient will be followed by a physician who will periodically review the plan of care. Time Spent With Patient Time: Total time managing care of this patient today ____ minutes.
== END 2022-08-07 16:21 | disposition home health service (06) | DRG 190 ==
LOC: HO.ED 21:46 → HO.EDOVER 23:55 → HO.S3 07-30 07:27
PROVIDERS: Internal Medicine; Admitting Provider Internal Medicine; Emergency Provider Internal Medicine; PCP Internal Medicine; Visit Provider Internal Medicine
DX: J44.1 Chronic obstructive pulmonary disease with (acute) exacerbation (principal); J96.21 Acute and chronic respiratory failure with hypoxia; J96.22 Acute and chronic respiratory failure with hypercapnia; I50.32 Chronic diastolic (congestive) heart failure; E87.21 Acute metabolic acidosis; E11.65 Type 2 diabetes mellitus with hyperglycemia; K76.0 Fatty (change of) liver, not elsewhere classified; E78.5 Hyperlipidemia, unspecified; Z20.822 Contact with and (suspected) exposure to COVID-19; F10.21 Alcohol dependence, in remission; D64.9 Anemia, unspecified; I11.0 Hypertensive heart disease with heart failure; I25.10 Atherosclerotic heart disease of native coronary artery without angina pectoris; F41.1 Generalized anxiety disorder; K59.00 Constipation, unspecified; K74.60 Unspecified cirrhosis of liver; Z85.118 Personal history of other malignant neoplasm of bronchus and lung; Z92.21 Personal history of antineoplastic chemotherapy; Z92.3 Personal history of irradiation; Z87.891 Personal history of nicotine dependence; Z99.81 Dependence on supplemental oxygen; Z88.8 Allergy status to other drugs, medicaments and biological substances; Z79.82 Long term (current) use of aspirin; Z79.84 Long term (current) use of oral hypoglycemic drugs; Z79.899 Other long term (current) drug therapy
CPT/HCPCS: 36415; 71045; 71250; 74018; 74176; 74270; 80048; 80053; 81001; 82803; 82947; 83036; 83605; 83690; 83880; 84484; 85025; 85027; 85379; 85610; 87040; 87635; 93005; 93306; 93356; 94640; 97116; 97162; 99284; 99285; J0456; J0696; J1200; J1650; J2060; J2920; J2930

== ENCOUNTER 2022-08-16 20:37 | Emergency (ER) | payer MEDICARE, SELFPAY ==
--- NOTE | ~2022-08-16 | XR_ITS ---
EXAMINATION: XR CHEST CLINICAL INFORMATION: Short of breath COMPARISON: 07/29/2022 TECHNIQUE: Frontal view of the chest was obtained. FINDINGS: Cardiac leads overlie the chest. Persistent opacity at the left apex. No new consolidation. No pleural effusion or edema. No pneumothorax. The cardiomediastinal silhouette is normal in size. XR/XR chest 1V IMPRESSION: Persistent opacity at the left apex. No new consolidation.
[2022-08-16 20:43] VITALS: BP 98/48; PULSE 88; RESP 20; TEMP 36.6; O2SAT 90; BMI 22.8
--- NOTE | 2022-08-16 20:43 | ED.GENADULT ---
HPI - General Adult General Chief complaint: Dyspnea Stated complaint: pain, sweeling in feet Time Seen by Provider: 08/16/22 21:17 Source: patient and family (, Maxine) Mode of arrival: ambulatory Limitations: no limitations History of Present Illness HPI narrative: 72-year-old male with a past medical history of severe persistent asthma/COPD overlap, chronic hypoxemic and hypercapnic respiratory failure, hepatic steatosis, etoh dependence, cirrhosis with ascites, former smoker who quit 16 years ago, anxiety, HLD, HTN, and hx of left lung cancer s/p chemo and radiation 10 years ago who presents emergency department for evaluation of shortness of breath, increased swelling in his legs and increased pain in his legs. The patient was admitted here from 07/29/2022 until 08/07/2022 for shortness of breath, worsening cough, increased oxygen requirement and increased dyspnea on exertion. Patient was diagnosed with chronic hypoxemia hyper cart make respiratory failure secondary to COPD. He is treated with bronchodilators and diuresed. He was discharged with prednisone. The patient states that since being discharged home he has had increased shortness of breath and increased dyspnea on exertion. States that he is having significant difficulty lying down at night and sleeping secondary to shortness of breath. He has also noted increased swelling in his lower extremities to the point where issues no longer fit. He states that his legs are so swollen that he is having pain in his legs secondary to the swelling. He denied fever, chills, cough, chest pain, nausea, vomiting, diarrhea. The patient is on hydrochlorothiazide and he states he does have increased urinary frequency. The patient is also drinking half a gal of water per day. He states his mouth always feels dry any has to constantly drink water. RME was reviewed by me. Related Data Home Medications Medication Instructions Recorded Confirmed albuterol sulfate 90 mcg/actuation 2 puff PO Q4H PRN Shortness Of 01/14/20 07/29/22 aerosol inhaler Breath Or Wheezing ipratropium 0.5 mg-albuterol 3 mg 3 ml inhalation Q6H PRN COPD 01/14/20 07/29/22 (2.5 mg base)/3 mL nebulization soln budesonide-formoterol HFA 160 2 puff inhalation DAILY 03/14/21 07/29/22 mcg-4.5 mcg/actuation aerosol inhaler (Symbicort) isosorbide mononitrate 30 mg 30 mg PO DAILY 03/14/21 07/29/22 tablet,extended release 24 hr aspirin 81 mg tablet,delayed 81 mg PO DAILY 08/04/21 07/29/22 release calcium carbonate 600 mg-vitamin 1 tab PO DAILY 08/04/21 07/29/22 D3 10 mcg (400 unit) tablet omeprazole 20 mg capsule,delayed 20 mg PO DAILY@0630 11/28/21 07/29/22 release escitalopram oxalate 20 mg tablet 10 mg PO DAILY 06/07/22 07/30/22 glipizide 5 mg tablet 5 mg PO DAILY@1700 06/07/22 07/29/22 Oxygen Home Use 06/14/22 06/25/22 nebulizers 06/14/22 06/25/22 Previous Rx's Medication Instructions Recorded multivitamin (Daily-Kathleen tablet) 1 tab PO DAILY #90 tabs 05/13/20 metformin 1,000 mg tablet 1,000 mg PO BID #180 tabs 11/07/21 blood sugar diagnostic (FreeStyle #100 ea 01/23/22 Lite Strips) blood-glucose meter (FreeStyle #1 ea 01/23/22 Lite Meter kit) atorvastatin 80 mg tablet 80 mg PO BEDTIME #90 tabs 02/05/22 metoprolol tartrate 25 mg tablet 25 mg PO BID #180 tabs 05/02/22 lorazepam 0.5 mg tablet 0.5 mg PO DAILY PRN anxiety #30 07/11/22 tabs gabapentin 100 mg capsule 100 mg PO TID #30 caps 07/21/22 prednisone 10 mg tablet 10 mg PO DAILY #3 tabs 08/01/22 polyethylene glycol 3350 17 gram 17 g PO DAILY PRN Constipation #30 08/07/22 oral powder packet ea hydrochlorothiazide 25 mg tablet 25 mg PO QAM #30 tabs 08/13/22 furosemide 40 mg tablet (Lasix) 40 mg PO DAILY #30 tabs 08/17/22 lorazepam 1 mg tablet (Ativan) 1 mg PO TID PRN anxiety #10 tabs 08/17/22 Allergies Allergy/AdvReac Type Severity Reaction Status Date / Time fluticasone furoate Allergy Intermediate rash Verified 07/29/22 21:27 [From Valeria Hays] vilanterol Allergy Intermediate rash Verified 07/29/22 21:27 [From Trelegy Ellipta] umeclidinium Allergy Unknown hives Verified 07/29/22 21:27 [Incruse Ellipta] lasix AdvReac Intermediate Hallucinati Uncoded 06/30/22 04:11 ons Review of Systems Review of Systems: Yes all other systems are reviewed and are negative [facility] Past Medical History Medical History Acute on chronic respiratory failure with hypoxia and hypercapnia Anemia Asthma Bacteremia due to Enterococcus Chronic lung disease Chronic lung disease Chronic lung disease Chronic respiratory failure Chronic respiratory failure with hypoxia and hypercapnia COPD exacerbation COPD, severe Diabetes mellitus with hyperglycemia, without long-term current use of insulin Dyslipidemia Generalized anxiety disorder History of pneumonia HTN (hypertension) Hyperlipemia Lung cancer Radiation fibrosis of lung Skin cancer Urinary incontinence Surgical History History of esophagogastroduodenoscopy (EGD) Hx of colonoscopy Hx of heart artery stent Family History Family History Father Medical history non-contributory Mother Medical history non-contributory Unknown family medical history Lung collapse Brother No problems noted. Brother No problems noted. Son Substance use disorder Son No problems noted. Daughter No problems noted. Sister No problems noted. Sister No problems noted. Sister No problems noted. Sister No problems noted. Other HTN (hypertension) Social History Social History Household Members: Family Household Members Other:: grandson Housing: House Are you a primary home health care worker to a significant other at home: No Do you presently have visiting nurse or other home services: No Alcohol intake: former Patient Tobacco Use Status: Former Tobacco user e-Cigarette/Vaping Use: Never Used Advance Directives: Yes Advance Directives on File: Yes Advance Directives Date on File: 06/08/22 service: No Current occupational status: retired Cognitive needs: No Hearing needs: No Vision needs: No Physical Exam ED Vital Signs: Vital Signs - 24 hr 08/16/22 20:43 08/16/22 21:34 Temperature 98 F Pulse Rate 88 86 Respiratory Rate 20 19 Blood Pressure 98/48 L 107/63 Pulse Oximetry 90 L 95 Oxygen Delivery Method Nasal Cannula Nasal Cannula Oxygen Flow Rate 3 BMI result Body Mass Index 22.8 Const Other: Awake, alert, male patient, sitting on the side of the bed, does not appear to be in respiratory distress, answers all questions appropriately [facility] Head: Yes normal to inspection, Yes normocephalic and Yes atraumatic Ears: external ears normal General nose exam: Normal external nose present Face and sinus: Yes normal facial exam Mouth: Normal oral and palatal mucosa present Throat: Yes posterior oropharynx normal Eyes General: appearance normal, both eyes and all related structures Pupils: Equal, round and reactive pupils present Neck Neck: Yes normal visual inspection, Yes no lymphadenopathy, Yes trachea midline and Yes supple Chest Chest palpation & inspection: normal inspection of the chest and normal palpation of entire chest wall Resp Effort & Inspection: normal respiratory effort and able to speak in complete sentences Auscultation: clear to auscultation bilaterally Cardio Rate: regular rate Rhythm: regular rhythm Heart sounds: S1 normal heart sound present, S2 normal heart sound present and no murmurs GI Inspection: Yes normal to inspection and Yes distended (Secondary to ascites) Palpation (GI): Soft to palpation, nontender and no guarding Auscultation: normal bowel sounds General: Yes no CVA tenderness Back/Spine/Pelvis Back: no CVA tenderness Skin General skin exam: no rashes or lesions noted Neuro Cranial nerves: Yes CN's II-XII intact bilaterally and Yes Equal, round and reactive pupils present Cognition (Neuro): normal cognition Motor exam (neuro): 5/5 motor strength present throughout Extrem Other: 1 to 2+ pitting edema, bilaterally symmetrical Psych Appearance: grossly normal Speech and movement: Normal speech and movement present Affect: normal affect Attitude: cooperative Course Course Course Narrative: This is an RME: Additional HPI, ROS, PE not included below will be deferred to primary provider. This is a 72 year old male COPD on 2.5 L at home presening w/ SOB, cough, lower extremity swelling, fatigue X few days worsening requiring 3 L nasal canula for comfort. Denies chest pain, fevers, chill. Not on thinners PE w/ labored breathing, coarse breathsounds, hypotensive, O2 88-89% on 4L. Called charge patient to go to room 18, Medical Decision Making Medical Decision Making [facility] Narrative: 72-year-old male complex past medical history including COPD O2 dependent, cirrhosis with ascites and previous lung cancer who presents emergency department for increased shortness of breath, dyspnea on exertion, orthopnea and increased peripheral edema. Patient was recently hospitalized for COPD exacerbation and discharged on prednisone. Patient states that he is taking hydrochlorothiazide is only as as diuretic and has been drinking a half gallon of fluid per day. Vital signs revealed low blood pressure of 98/48 with an O2 saturation of 90-95% on 3 L of oxygen via nasal cannula. Patient's abdomen is distended secondary to his ascites. He has 2 to 3+ pitting edema in his lower extremities. Following studies were ordered by provider in triage: CBC, CMP, BNP, lactic acid, magnesium, urinalysis, blood cultures x2, COVID-19, chest x-ray and 12 EKG 2356: My interpretation patient's diagnostic data is as follows: Elevated bicarb 38, elevated glucose 279, elevated lactic acid 2.6, COVID-19 negative. BNP below detectable limits. D-dimer elevated 281. Chest x-ray revealed no pneumonia or congestive heart failure. Twelve EKG was unremarkable. The patient's symptoms are most likely secondary to fluid overload, patient was advised to stop hydrochlorothiazide and was started on Lasix 40 mg daily. He was advised to restrict his fluid intake to 1 L per day, weigh himself daily and measures urine output to try to get into a negative fluid balance. Patient states that his anxiety is getting worse at night. He takes Ativan 0.5 mg and I increased his dose to 1 mg at night for 1 week. Differential Diagnosis Differential includes was not limited to COPD exacerbation, congestive heart failure, fluid overload secondary to water ingestion, pneumonia, anemia, electrolyte abnormalities Admission/Observation Consideration of admission/observation: Escalation of care including admission/observation considered Lab Data [facility] Lab Attestation statement: I reviewed the patient's lab results. 08/16/22 21:14 08/16/22 21:38 Labs: Lab Results 08/16/22 08/16/22 08/16/22 Range/Units 21:14 21:14 21:14 WBC 6.0 (4.8-10.8) X10*3/uL RBC 4.35 L (4.60-5.80) X10*6/uL Hgb 12.7 L (14.0-18.0) g/dl Hct 39.7 L (42.0-52.0) % MCV 91.3 (80.0-98.0) fL MCH 29.2 (27.0-33.0) pg MCHC 32.0 (31.0-36.0) g/dl RDW 14.0 (11.0-16.0) % Plt Count 187 (160-400) X10*3/uL MPV 10.3 (9.4-12.4) fL Immature Gran % (Auto) 0.3 (0.0-0.4) % Neut % (Auto) 67.6 (45-73) % Lymph % (Auto) 17.3 L (20-40) % [place] % (Auto) 10.3 (2-11) % Eos % (Auto) 3.8 (0-4) % Baso % (Auto) 0.7 (0-2) % Lymph # (Auto) 1.0 L (1.2-4.9) X10*3/uL [place] # (Auto) 0.6 (0.1-1.2) X10*3/uL Eos # (Auto) 0.2 (0.0-0.4) X10*3/uL Baso # (Auto) 0.0 (0.0-0.2) X10*3/uL Abs Immat Gran (auto) 0.02 (0.00-0.03) X10*3/uL Absolute Neuts (auto) 4.1 (2.0-8.3) x10*3/uL Absolute Nucleated RBC 0.000 (0.0-0.012) X10*3/uL Nucleated RBC % (auto) 0.0 (0.0-0.2) /100WBC Sodium (135-145) mmol/L Potassium (3.3-5.1) mmol/L Chloride (96-108) mmol/L Carbon Dioxide (22-29) mmol/L Anion Gap (12-20) BUN (9-16) mg/dL Creatinine (0.5-1.4) mg/dL Estim Creat Clear Calc Estimated GFR Random Glucose (60-115) mg/dL Lactic Acid (0.5-2.0) mmol/L Calcium (8.4-10.2) mg/dL Magnesium (1.6-2.6) mg/dL Total Bilirubin (0.0-1.0) mg/dL AST (5-37) U/L ALT (0-40) U/L Alkaline Phosphatase (39-117) U/L Troponin I High Sens 5.6 (<3.5-35.0) ng/L B-Natriuretic Peptide (<100) pg/mL Total Protein (6.5-8.0) g/dL Albumin (3.5-5.0) g/dL COVID-19 ([facility]) Negative (Negative) COVID-19 Clin Com See Note 08/16/22 08/16/22 08/16/22 Range/Units 21:14 21:14 21:38 WBC (4.8-10.8) X10*3/uL RBC (4.60-5.80) X10*6/uL Hgb (14.0-18.0) g/dl Hct (42.0-52.0) % MCV (80.0-98.0) fL MCH (27.0-33.0) pg MCHC (31.0-36.0) g/dl RDW (11.0-16.0) % Plt Count (160-400) X10*3/uL MPV (9.4-12.4) fL Immature Gran % (Auto) (0.0-0.4) % Neut % (Auto) (45-73) % Lymph % (Auto) (20-40) % [place] % (Auto) (2-11) % Eos % (Auto) (0-4) % Baso % (Auto) (0-2) % Lymph # (Auto) (1.2-4.9) X10*3/uL [place] # (Auto) (0.1-1.2) X10*3/uL Eos # (Auto) (0.0-0.4) X10*3/uL Baso # (Auto) (0.0-0.2) X10*3/uL Abs Immat Gran (auto) (0.00-0.03) X10*3/uL Absolute Neuts (auto) (2.0-8.3) x10*3/uL Absolute Nucleated RBC (0.0-0.012) X10*3/uL Nucleated RBC % (auto) (0.0-0.2) /100WBC Sodium 138 (135-145) mmol/L Potassium 3.7 (3.3-5.1) mmol/L Chloride 91 L (96-108) mmol/L Carbon Dioxide 38 H (22-29) mmol/L Anion Gap 13 (12-20) BUN 11 (9-16) mg/dL Creatinine 0.98 (0.5-1.4) mg/dL Estim Creat Clear Calc 65.5 Estimated GFR > 60 Random Glucose 279 H (60-115) mg/dL Lactic Acid 2.6 H* (0.5-2.0) mmol/L Calcium 10.4 H D (8.4-10.2) mg/dL Magnesium 1.8 (1.6-2.6) mg/dL Total Bilirubin 0.6 (0.0-1.0) mg/dL AST 27 (5-37) U/L ALT 19 (0-40) U/L Alkaline Phosphatase 86 (39-117) U/L Troponin I High Sens (<3.5-35.0) ng/L B-Natriuretic Peptide < 10 (<100) pg/mL Total Protein 7.1 (6.5-8.0) g/dL Albumin 4.1 (3.5-5.0) g/dL COVID-19 ([facility]) (Negative) COVID-19 Clin Com Independent Interpretation I performed an independent interpretation of an: Plain X-Ray Interpretation: My interpretation of patient's x-ray is as follows: No acute disease My independent interpretation patient's 12 EKG is as follows: Normal sinus rhythm rate of 86, normal MA interval, QRS duration and QTC interval, no ST segment elevation no ST segment depression, no PACs, no PVCs, no T-wave abnormalities. Radiology Impression Discussion of test interpretation with radiology: I have reviewed the radiologist's reading. Radiologist Impression: XR chest 1V IMPRESSION: Persistent opacity at the left apex. No new consolidation. Dictated By:Ken Judd MD Discharge Plan Discharge Clinical Impression: 2+ pitting edema, Fluid overload, Anxiety, Bilateral edema of lower extremity Patient Disposition: Home, Self-Care Instructions: Leg Edema (ED) Additional Instructions: Your laboratory evaluation was unremarkable. Your chest x-ray revealed no evidence for pneumonia or fluid in your lungs Your body is fluid overloaded and this is what is causing all of the swelling in your legs. Also, swelling in legs is related to your cirrhosis of the liver. Stop taking hydrochlorothiazide Start Lasix (furosemide) 40 mg once a day in the morning. This will make you pee for at least 6-8 hours in the morning. Measure the amount of urine that your putting out. You should try to drink less fluid than you were peeing out. Weigh yourself daily and if the diuretic is working you should lose 2-3 lb over the next week. I am increasing your Ativan to 1 mg at night for 1 week then go back to Ativan 0.5 mg at night. Follow-up with your doctor in 2 days. Please return to the emergency department if your symptoms get worse or if you develop any symptoms that are concerning to you. Prescriptions: New lorazepam [Ativan] 1 mg tablet 1 mg PO TID PRN (Reason: anxiety) Qty: 10 0RF Rx Instructions: Patient may request partial fill furosemide [Lasix] 40 mg tablet 40 mg PO DAILY Qty: 30 0RF No Action multivitamin [Daily-Kathleen] Tablet 1 tab PO DAILY Qty: 90 3RF metformin 1,000 mg tablet 1,000 mg PO BID Qty: 180 4RF (DME) FreeStyle Lite Strips Strip See Rx Instructions .Route Qty: 100 5RF Rx Instructions: check fasting glucose BID ac (DME) blood-glucose meter [FreeStyle Lite Meter] Kit See Rx Instructions .Route Qty: 1 0RF Rx Instructions: As directed atorvastatin 80 mg tablet 80 mg PO BEDTIME Qty: 90 3RF metoprolol tartrate 25 mg tablet 25 mg PO BID Qty: 180 1RF lorazepam 0.5 mg tablet 0.5 mg PO DAILY PRN (Reason: anxiety) Qty: 30 0RF hydrochlorothiazide 25 mg tablet 25 mg PO QAM Qty: 30 0RF isosorbide mononitrate 30 mg tablet extended release 24 hr 30 mg PO DAILY budesonide-formoterol [Symbicort] 160-4.5 mcg/actuation Hfa Aerosol Inhaler 2 puff INHALATION DAILY omeprazole 20 mg capsule,delayed release(DR/EC) 20 mg PO DAILY@0630 glipizide 5 mg Tablet 5 mg PO DAILY@1700 escitalopram oxalate 20 mg tablet 10 mg PO DAILY calcium carbonate-vitamin D3 600 mg-10 mcg (400 unit) tablet 1 tab PO DAILY aspirin 81 mg Tablet,Delayed Release (Dr/Ec) 81 mg PO DAILY gabapentin 100 mg capsule 100 mg PO TID Qty: 30 0RF prednisone 10 mg tablet 10 mg PO DAILY Qty: 3 0RF polyethylene glycol 3350 17 gram Powder In Packet 17 g PO DAILY PRN (Reason: Constipation) Qty: 30 0RF albuterol sulfate 90 mcg/actuation HFA aerosol inhaler 2 puff PO Q4H PRN (Reason: Shortness Of Breath Or Wheezing) ipratropium-albuterol 0.5 mg-3 mg(2.5 mg base)/3 mL solution for nebulization 3 ml inhalation Q6H PRN (Reason: COPD) (DME) Oxygen Home Use Kit See Rx Instructions .Route Rx Instructions: As directed (DME) nebulizers Mis See Rx Instructions .Route Rx Instructions: As directed
--- NOTE | 2022-08-16 20:45 | ECG_ITS ---
Test Reason : sob Blood Pressure : / mmHG Vent. Rate : 086 BPM Atrial Rate : 086 BPM P-R Int : 148 ms QRS Dur : 088 ms QT Int : 366 ms P-R-T Axes : 022 076 067 degrees QTc Int : 437 ms Normal sinus rhythm Normal ECG When compared with ECG of 29-JUL-2022 23:33, No significant change was found Referred By: Ania Miller Electronically Signed By:YOCASTA GIL
[2022-08-16 21:26] LABS: MANUAL DIFF FLAG NO
[2022-08-16 21:34] VITALS: BP 107/63; PULSE 86; RESP 19; O2SAT 95
--- NOTE | 2022-08-16 21:40 | PC.NURSE ---
this rn assumed care of pt @ 2119 from triage provider. triage provider and dr francois aware of bp 98/48. pt on stretcher. iv line placed, pt placed on fine unhairer. bloodwork and ekg obtained. dr francois at bedside for assessment. no new orders
[2022-08-16 21:41] LABS: Lactic Acid 2.6 mmol/L (0.5-2.0)
[2022-08-16 21:43] LABS: COVID-19 Test Negative (Negative); IDNOW Serial# 08D9AD1C
[2022-08-16 21:46] LABS: Basophils Percent Auto 0.7 % (0-2); Eosinophils Absolute Auto 0.2 X10*3/uL (0.0-0.4); Eosinophils Percent Auto 3.8 % (0-4); Hematocrit 39.7 % (42.0-52.0); Hemoglobin 12.7 g/dl (14.0-18.0); Imm Gran Abs Auto 0.02 X10*3/uL (0.00-0.03); Imm Gran Pct Auto 0.3 % (0.0-0.4); Lymphocytes Percent Auto 17.3 % (20-40); Mean Corpuscular Hemoglobin 29.2 pg (27.0-33.0); Mean Corpuscular Volume 91.3 fL (80.0-98.0); Mean Platelet Volume 10.3 fL (9.4-12.4); Monocytes Absolute Auto 0.6 X10*3/uL (0.1-1.2); Monocytes Percent Auto 10.3 % (2-11); Neutrophils Absolute Auto 4.1 x10*3/uL (2.0-8.3); Neutrophils Percent Auto 67.6 % (45-73); Platelet Count 187 X10*3/uL (160-400); Red Blood Count 4.35 X10*6/uL (4.60-5.80)
[2022-08-16 21:49] LABS: B Type Natriuretic Peptide < 10 pg/mL (<100); Troponin-I High Sensitivity 5.6 ng/L (<3.5-35.0)
[2022-08-16 22:07] LABS: Alanine Aminotransferase 19 U/L (0-40); Albumin Level 4.1 g/dL (3.5-5.0); Alkaline Phosphatase 86 U/L (39-117); Anion Gap 13 (12-20); Aspartate Amino Transferase 27 U/L (5-37); Bilirubin Total 0.6 mg/dL (0.0-1.0); Blood Urea Nitrogen 11 mg/dL (9-16); Calcium 10.4 mg/dL (8.4-10.2); Carbon Dioxide 38 mmol/L (22-29); Chloride 91 mmol/L (96-108); Creatinine Clr Calc Pharmacy 65.5; Estimated Glomerular Filt Rate > 60; Glucose Random 279 mg/dL (60-115); Magnesium 1.8 mg/dL (1.6-2.6); Potassium 3.7 mmol/L (3.3-5.1); Sodium 138 mmol/L (135-145); Total Protein 7.1 g/dL (6.5-8.0)
[2022-08-16 23:24] LABS: Reflex Lactate? Lactic Acid Added
[2022-08-17 00:34] VITALS: BP 94/61; PULSE 92; RESP 20; TEMP 36.5; O2SAT 93
== END 2022-08-17 00:40 | disposition home or self-care (01) ==
PROVIDERS: Physician Assistant; Emergency Provider Emergency Medicine Emergency Medical Services; PCP Internal Medicine
DX: R06.02 Shortness of breath (principal); R60.0 Localized edema; F41.1 Generalized anxiety disorder; F43.0 Acute stress reaction; Z20.822 Contact with and (suspected) exposure to COVID-19; Z20.828 Contact with and (suspected) exposure to other viral communicable diseases; Z79.899 Other long term (current) drug therapy
CPT/HCPCS: 36415; 71045; 80053; 83605; 83735; 83880; 84484; 85025; 87040; 87635; 93005; 99283; 99284

== ENCOUNTER 2022-08-28 15:01 | Emergency (ER) | payer MEDICARE, SELFPAY ==
--- NOTE | ~2022-08-28 | XR_ITS ---
EXAMINATION: XR CHEST CLINICAL INFORMATION: Shortness of breath COMPARISON: Chest radiographs 08/16/2022, 07/29/2022, 07/21/2022; CT chest noncontrast 07/30/2022 TECHNIQUE: Frontal view of the chest was obtained. FINDINGS: Cardiopulmonary appearance is similar to prior exams. There is volume loss on the left with chronic left apical airspace opacity and retraction left hilum. Minor scarring or areolar tissue again seen adjacent to left cardiac border. The right lung is clear. There is no pneumothorax or effusion. The heart size is normal. No vascular congestion. Hilar and mediastinal contours are stable. XR/XR chest 1V IMPRESSION: - Chronic left apical airspace opacity with retraction left hilum. - Right lung clear. No pneumothorax or effusion. No vascular congestion. - No acute intrathoracic disease.
--- NOTE | 2022-08-28 15:36 | ED.GENADULT ---
HPI - General Adult General Chief complaint: Dyspnea Stated complaint: Low blood pressure/SOB/Swollen feet Time Seen by Provider: 08/28/22 18:07 Source: patient Mode of arrival: ambulatory Limitations: no limitations History of Present Illness HPI narrative: Patient has severe COPD dependent leg edema been here multiple times for similar reason comes here as as Nighat leg swelling shortness of breath saturating 93% on 2-3LPM which he is on at home no chest pain or palpitation no fever or chills occasional dry cough Related Data Home Medications Medication Instructions Recorded Confirmed albuterol sulfate 90 mcg/actuation 2 puff PO Q4H PRN Shortness Of 01/14/20 08/20/22 aerosol inhaler Breath Or Wheezing ipratropium 0.5 mg-albuterol 3 mg 3 ml inhalation Q6H PRN COPD 01/14/20 08/20/22 (2.5 mg base)/3 mL nebulization soln budesonide-formoterol HFA 160 2 puff inhalation DAILY 03/14/21 08/20/22 mcg-4.5 mcg/actuation aerosol inhaler (Symbicort) isosorbide mononitrate 30 mg 30 mg PO DAILY 03/14/21 08/20/22 tablet,extended release 24 hr aspirin 81 mg tablet,delayed 81 mg PO DAILY 08/04/21 08/20/22 release calcium carbonate 600 mg-vitamin 1 tab PO DAILY 08/04/21 08/20/22 D3 10 mcg (400 unit) tablet omeprazole 20 mg capsule,delayed 20 mg PO DAILY@0630 11/28/21 07/29/22 release glipizide 5 mg tablet 5 mg PO DAILY@1700 06/07/22 08/20/22 Oxygen Home Use 06/14/22 08/20/22 nebulizers 06/14/22 08/20/22 Previous Rx's Medication Instructions Recorded multivitamin (Daily-Kathleen tablet) 1 tab PO DAILY #90 tabs 05/13/20 metformin 1,000 mg tablet 1,000 mg PO BID #180 tabs 11/07/21 blood sugar diagnostic (FreeStyle #100 ea 01/23/22 Lite Strips) blood-glucose meter (FreeStyle #1 ea 01/23/22 Lite Meter kit) atorvastatin 80 mg tablet 80 mg PO BEDTIME #90 tabs 02/05/22 metoprolol tartrate 25 mg tablet 25 mg PO BID #180 tabs 05/02/22 prednisone 10 mg tablet 10 mg PO DAILY #3 tabs 08/01/22 polyethylene glycol 3350 17 gram 17 g PO DAILY PRN Constipation #30 08/07/22 oral powder packet ea furosemide 40 mg tablet (Lasix) 40 mg PO DAILY #30 tabs 08/17/22 escitalopram oxalate 20 mg tablet 20 mg PO DAILY #30 tabs 08/20/22 lactulose 10 gram/15 mL oral 10 g (15 mL) PO DAILY PRN 08/20/22 solution constipation #237 mL lorazepam 1 mg tablet (Ativan) 1 mg PO BID PRN anxiety #30 tabs 08/20/22 hydrochlorothiazide 25 mg tablet 25 mg PO QAM #30 tabs 08/28/22 Allergies Allergy/AdvReac Type Severity Reaction Status Date / Time fluticasone furoate Allergy Intermediate rash Verified 08/20/22 09:39 [From Trelegy Ellipta] vilanterol Allergy Intermediate rash Verified 08/20/22 09:39 [From Trelegy Ellipta] umeclidinium Allergy Unknown hives Verified 08/20/22 09:39 [Incruse Ellipta] lasix AdvReac Intermediate Hallucinati Uncoded 08/20/22 09:39 ons Review of Systems Review of Systems: Yes all other systems are reviewed and are negative PMF Past Medical History Medical History Acute on chronic respiratory failure with hypoxia and hypercapnia Anemia Anxiety and depression Asthma Bacteremia due to Enterococcus Chronic respiratory failure with hypoxia and hypercapnia Constipation COPD, severe Diabetes mellitus with hyperglycemia, without long-term current use of insulin Dyslipidemia Generalized anxiety disorder History of pneumonia HTN (hypertension) Lung cancer Radiation fibrosis of lung Skin cancer Urinary incontinence Surgical History History of esophagogastroduodenoscopy (EGD) Hx of colonoscopy Hx of heart artery stent Family History Family History Father Medical history non-contributory Mother Medical history non-contributory Unknown family medical history Lung collapse Brother No problems noted. Brother No problems noted. Son Substance use disorder Son No problems noted. Daughter No problems noted. Sister No problems noted. Sister No problems noted. Sister No problems noted. Sister No problems noted. Other HTN (hypertension) Social History Social History Household Members: Family Household Members Other:: grandson Housing: House Are you a primary critical care physician assistant to a significant other at home: No Do you presently have visiting nurse or other home services: No Alcohol intake: former Patient Tobacco Use Status: Former Tobacco user e-Cigarette/Vaping Use: Never Used Advance Directives: Yes Advance Directives on File: Yes Advance Directives Date on File: 06/08/22 service: No Current occupational status: retired Cognitive needs: No Hearing needs: No Vision needs: No Physical Exam ED Vital Signs: Vital Signs - 24 hr 08/28/22 15:37 08/28/22 18:32 08/28/22 18:35 Temperature 98.4 F Pulse Rate 73 68 70 Respiratory Rate 20 20 20 Blood Pressure 105/48 L 116/62 Pulse Oximetry 93 97 Oxygen Delivery Method Nasal Cannula Nasal Cannula Oxygen Flow Rate 2.5 08/28/22 19:52 08/28/22 20:01 Temperature 97.9 F Pulse Rate 80 Respiratory Rate 19 Blood Pressure 104/52 L Pulse Oximetry 94 98 Oxygen Delivery Method Nasal Cannula Nasal Cannula Oxygen Flow Rate 3 4 BMI result Body Mass Index 32.3 Appearance: Alert. Oriented X3. No acute distress. Eyes: PERRLA, No Nystagmus ENT: Pharynx normal. Oral Mucosa moist Neck: Normal inspection. Neck supple. CVS: Normal heart rate and rhythm. Pulses normal. Respiratory: No respiratory distress. Equal air entry bilateral, prolonged expiration Abdomen: Soft and nontender. Bowel sounds are present, no mass palpable, no CVA tenderness Skin: Skin warm and dry. Normal skin color. Normal skin turgor. Extremities: 2+ lower extremity edema. No calf tenderness Neuro: Oriented X 3. No motor deficit. No sensory deficit.No cerebellar signs , cranial nerves II-XII intact Course Course Course Narrative: RME: 72 year old male with past medical history acute on chronic respiratory failure, anemia, bacteremia, COPD, diabetes, HLD, HTN, lung CA on baseline O2 2.5-3L c/o low BP 87-89/50's w/assoc lightheadedness, and LE edema / pain x1 mos. Patient was seen in our ED 08/16 for similar symptoms Satting 94% on 3L NC, 3+ LE pitting edema EKG, labs, CXR, COVID, VBG ordered Full HPI, ROS and PE to be performed by primary ED provider. Medications Administered Discontinued Medications Generic Name Dose Route Start Last Admin Trade Name Freq PRN Reason Stop Dose Admin Albuterol Sulfate 2.5 mg/ 0 mg 08/28/22 18:15 08/28/22 18:28 Albuterol/Ipratropium 3 ml INHALE 08/28/22 18:16 2.5 each ONCE ONE Administration Medical Decision Making Medical Decision Making MDM Narrative: Patient has chronic dependent leg edema with CLD , no signs of CHF will add hydrochlorothiazide along with progressive might Lab Data MDM Lab Attestation statement: I reviewed the patient's lab results. 08/28/22 15:57 08/28/22 15:57 Labs: Lab Results 08/28/22 08/28/22 08/28/22 Range/Units 15:57 15:57 15:57 WBC 4.2 L (4.8-10.8) X10*3/uL RBC 3.93 L (4.60-5.80) X10*6/uL Hgb 11.6 L (14.0-18.0) g/dl Hct 36.5 L (42.0-52.0) % MCV 92.9 (80.0-98.0) fL MCH 29.5 (27.0-33.0) pg MCHC 31.8 (31.0-36.0) g/dl RDW 13.7 (11.0-16.0) % Plt Count 194 (160-400) X10*3/uL MPV 9.5 (9.4-12.4) fL Immature Gran % (Auto) 0.5 H (0.0-0.4) % Neut % (Auto) 59.4 (45-73) % Lymph % (Auto) 21.2 (20-40) % [place] % (Auto) 12.2 H (2-11) % Eos % (Auto) 5.3 H (0-4) % Baso % (Auto) 1.4 (0-2) % Lymph # (Auto) 0.9 L (1.2-4.9) X10*3/uL [place] # (Auto) 0.5 (0.1-1.2) X10*3/uL Eos # (Auto) 0.2 (0.0-0.4) X10*3/uL Baso # (Auto) 0.1 (0.0-0.2) X10*3/uL Abs Immat Gran (auto) 0.02 (0.00-0.03) X10*3/uL Absolute Neuts (auto) 2.5 (2.0-8.3) x10*3/uL Absolute Nucleated RBC 0.000 (0.0-0.012) X10*3/uL Nucleated RBC % (auto) 0.0 (0.0-0.2) /100WBC PT 10.1 (10.0-13.1) SEC INR 0.9 (0.9-1.1) VBG pH (7.32-7.43) VBG pCO2 mmHg VBG pO2 mmHg VBG HCO3 (22-26) mmol/L VBG O2 Saturation % VBG Base Excess mmol/L Sodium 140 (135-145) mmol/L Potassium 3.8 (3.3-5.1) mmol/L Chloride 98 (96-108) mmol/L Carbon Dioxide 32 H (22-29) mmol/L Anion Gap 14 (12-20) BUN 11 (9-16) mg/dL Creatinine 0.86 (0.5-1.4) mg/dL Estim Creat Clear Calc 81.8 Estimated GFR > 60 POC Glucose (60-115) mg/dL Random Glucose 123 H (60-115) mg/dL Calcium 9.3 D (8.4-10.2) mg/dL Magnesium 1.7 (1.6-2.6) mg/dL Total Bilirubin 0.4 (0.0-1.0) mg/dL Direct Bilirubin 0.1 (0.0-0.5) mg/dL AST 26 (5-37) U/L ALT 24 (0-40) U/L Alkaline Phosphatase 79 (39-117) U/L Troponin I High Sens (<3.5-35.0) ng/L B-Natriuretic Peptide (<100) pg/mL Total Protein 6.3 L (6.5-8.0) g/dL Albumin 4.0 (3.5-5.0) g/dL COVID-19 ([facility]) (Negative) COVID-19 Clin Com 08/28/22 08/28/22 08/28/22 Range/Units 15:57 15:57 15:57 WBC (4.8-10.8) X10*3/uL RBC (4.60-5.80) X10*6/uL Hgb (14.0-18.0) g/dl Hct (42.0-52.0) % MCV (80.0-98.0) fL MCH (27.0-33.0) pg MCHC (31.0-36.0) g/dl RDW (11.0-16.0) % Plt Count (160-400) X10*3/uL MPV (9.4-12.4) fL Immature Gran % (Auto) (0.0-0.4) % Neut % (Auto) (45-73) % Lymph % (Auto) (20-40) % [place] % (Auto) (2-11) % Eos % (Auto) (0-4) % Baso % (Auto) (0-2) % Lymph # (Auto) (1.2-4.9) X10*3/uL [place] # (Auto) (0.1-1.2) X10*3/uL Eos # (Auto) (0.0-0.4) X10*3/uL Baso # (Auto) (0.0-0.2) X10*3/uL Abs Immat Gran (auto) (0.00-0.03) X10*3/uL Absolute Neuts (auto) (2.0-8.3) x10*3/uL Absolute Nucleated RBC (0.0-0.012) X10*3/uL Nucleated RBC % (auto) (0.0-0.2) /100WBC PT (10.0-13.1) SEC INR (0.9-1.1) VBG pH (7.32-7.43) VBG pCO2 mmHg VBG pO2 mmHg VBG HCO3 (22-26) mmol/L VBG O2 Saturation % VBG Base Excess mmol/L Sodium (135-145) mmol/L Potassium (3.3-5.1) mmol/L Chloride (96-108) mmol/L Carbon Dioxide (22-29) mmol/L Anion Gap (12-20) BUN (9-16) mg/dL Creatinine (0.5-1.4) mg/dL Estim Creat Clear Calc Estimated GFR POC Glucose (60-115) mg/dL Random Glucose (60-115) mg/dL Calcium (8.4-10.2) mg/dL Magnesium (1.6-2.6) mg/dL Total Bilirubin (0.0-1.0) mg/dL Direct Bilirubin (0.0-0.5) mg/dL AST (5-37) U/L ALT (0-40) U/L Alkaline Phosphatase (39-117) U/L Troponin I High Sens 3.8 (<3.5-35.0) ng/L B-Natriuretic Peptide 17 (<100) pg/mL Total Protein (6.5-8.0) g/dL Albumin (3.5-5.0) g/dL COVID-19 ([facility]) Negative (Negative) COVID-19 Clin Com See Note 08/28/22 08/28/22 Range/Units 16:00 19:45 WBC (4.8-10.8) X10*3/uL RBC (4.60-5.80) X10*6/uL Hgb (14.0-18.0) g/dl Hct (42.0-52.0) % MCV (80.0-98.0) fL MCH (27.0-33.0) pg MCHC (31.0-36.0) g/dl RDW (11.0-16.0) % Plt Count (160-400) X10*3/uL MPV (9.4-12.4) fL Immature Gran % (Auto) (0.0-0.4) % Neut % (Auto) (45-73) % Lymph % (Auto) (20-40) % [place] % (Auto) (2-11) % Eos % (Auto) (0-4) % Baso % (Auto) (0-2) % Lymph # (Auto) (1.2-4.9) X10*3/uL [place] # (Auto) (0.1-1.2) X10*3/uL Eos # (Auto) (0.0-0.4) X10*3/uL Baso # (Auto) (0.0-0.2) X10*3/uL Abs Immat Gran (auto) (0.00-0.03) X10*3/uL Absolute Neuts (auto) (2.0-8.3) x10*3/uL Absolute Nucleated RBC (0.0-0.012) X10*3/uL Nucleated RBC % (auto) (0.0-0.2) /100WBC PT (10.0-13.1) SEC INR (0.9-1.1) VBG pH 7.44 H (7.32-7.43) VBG pCO2 63 mmHg VBG pO2 73 mmHg VBG HCO3 43 H (22-26) mmol/L VBG O2 Saturation 95.0 % VBG Base Excess 15.8 mmol/L Sodium (135-145) mmol/L Potassium (3.3-5.1) mmol/L Chloride (96-108) mmol/L Carbon Dioxide (22-29) mmol/L Anion Gap (12-20) BUN (9-16) mg/dL Creatinine (0.5-1.4) mg/dL Estim Creat Clear Calc Estimated GFR POC Glucose 111 (60-115) mg/dL Random Glucose (60-115) mg/dL Calcium (8.4-10.2) mg/dL Magnesium (1.6-2.6) mg/dL Total Bilirubin (0.0-1.0) mg/dL Direct Bilirubin (0.0-0.5) mg/dL AST (5-37) U/L ALT (0-40) U/L Alkaline Phosphatase (39-117) U/L Troponin I High Sens (<3.5-35.0) ng/L B-Natriuretic Peptide (<100) pg/mL Total Protein (6.5-8.0) g/dL Albumin (3.5-5.0) g/dL COVID-19 ([facility]) (Negative) COVID-19 Clin Com Discharge Plan Discharge Clinical Impression: COPD, severe, Leg edema Patient Disposition: Home, Self-Care Instructions: COPD (Chronic Obstructive Pulmonary Disease) (ED), Leg Edema (ED) Additional Instructions: Continue nebulizing treatment and diuretics as prescribed by a lung specialist Add hydrochlorothiazide 25 mg daily Check your weight daily and follow with PCP Prescriptions: New hydrochlorothiazide 25 mg tablet 25 mg PO QAM Qty: 30 0RF No Action multivitamin [Daily-Kathleen] Tablet 1 tab PO DAILY Qty: 90 3RF metformin 1,000 mg tablet 1,000 mg PO BID Qty: 180 4RF (DME) FreeStyle Lite Strips Strip See Rx Instructions .Route Qty: 100 5RF Rx Instructions: check fasting glucose BID ac (DME) blood-glucose meter [FreeStyle Lite Meter] Kit See Rx Instructions .Route Qty: 1 0RF Rx Instructions: As directed atorvastatin 80 mg tablet 80 mg PO BEDTIME Qty: 90 3RF metoprolol tartrate 25 mg tablet 25 mg PO BID Qty: 180 1RF isosorbide mononitrate 30 mg tablet extended release 24 hr 30 mg PO DAILY budesonide-formoterol [Symbicort] 160-4.5 mcg/actuation Hfa Aerosol Inhaler 2 puff INHALATION DAILY omeprazole 20 mg capsule,delayed release(DR/EC) 20 mg PO DAILY@0630 glipizide 5 mg Tablet 5 mg PO DAILY@1700 calcium carbonate-vitamin D3 600 mg-10 mcg (400 unit) tablet 1 tab PO DAILY aspirin 81 mg Tablet,Delayed Release (Dr/Ec) 81 mg PO DAILY prednisone 10 mg tablet 10 mg PO DAILY Qty: 3 0RF polyethylene glycol 3350 17 gram Powder In Packet 17 g PO DAILY PRN (Reason: Constipation) Qty: 30 0RF furosemide [Lasix] 40 mg tablet 40 mg PO DAILY Qty: 30 0RF albuterol sulfate 90 mcg/actuation HFA aerosol inhaler 2 puff PO Q4H PRN (Reason: Shortness Of Breath Or Wheezing) ipratropium-albuterol 0.5 mg-3 mg(2.5 mg base)/3 mL solution for nebulization 3 ml inhalation Q6H PRN (Reason: COPD) escitalopram oxalate 20 mg tablet 20 mg PO DAILY Qty: 30 6RF lactulose 10 gram/15 mL solution 10 g PO DAILY PRN (Reason: constipation) Qty: 237 0RF lorazepam [Ativan] 1 mg tablet 1 mg PO BID PRN (Reason: anxiety) Qty: 30 0RF Rx Instructions: Patient may request partial fill (DME) Oxygen Home Use Kit See Rx Instructions .Route Rx Instructions: As directed (DME) nebulizers Misc See Rx Instructions .Route Rx Instructions: As directed Interventions: ED Discharge Assessment Last Done: 08/28/22 22:53 Discharge Date/Time: 08/28/22 22:54
[2022-08-28 15:37] VITALS: BP 105/48; PULSE 73; RESP 20; TEMP 36.9; O2SAT 93; BMI 32.3
--- NOTE | 2022-08-28 15:39 | ECG_ITS ---
Test Reason : SOB Blood Pressure : / mmHG Vent. Rate : 070 BPM Atrial Rate : 070 BPM P-R Int : 158 ms QRS Dur : 088 ms QT Int : 386 ms P-R-T Axes : 022 077 072 degrees QTc Int : 416 ms Normal sinus rhythm Normal ECG When compared with ECG of 16-AUG-2022 20:57, No significant change was found Referred By: Fabiana Sevilla Electronically Signed By:YOCASTA GIL
[2022-08-28 16:02] LABS: MANUAL DIFF FLAG NO
[2022-08-28 16:04] LABS: Basophils Absolute Auto 0.1 X10*3/uL (0.0-0.2); Basophils Percent Auto 1.4 % (0-2); Eosinophils Absolute Auto 0.2 X10*3/uL (0.0-0.4); Eosinophils Percent Auto 5.3 % (0-4); Hematocrit 36.5 % (42.0-52.0); Hemoglobin 11.6 g/dl (14.0-18.0); Imm Gran Abs Auto 0.02 X10*3/uL (0.00-0.03); Imm Gran Pct Auto 0.5 % (0.0-0.4); Lymphocytes Absolute Auto 0.9 X10*3/uL (1.2-4.9); Lymphocytes Percent Auto 21.2 % (20-40); Mean Corpuscular HGB Conc 31.8 g/dl (31.0-36.0); Mean Corpuscular Hemoglobin 29.5 pg (27.0-33.0); Mean Corpuscular Volume 92.9 fL (80.0-98.0); Mean Platelet Volume 9.5 fL (9.4-12.4); Monocytes Absolute Auto 0.5 X10*3/uL (0.1-1.2); Monocytes Percent Auto 12.2 % (2-11); Neutrophils Absolute Auto 2.5 x10*3/uL (2.0-8.3); Neutrophils Percent Auto 59.4 % (45-73); Platelet Count 194 X10*3/uL (160-400); Red Blood Count 3.93 X10*6/uL (4.60-5.80); Red Cell Distribution Width 13.7 % (11.0-16.0); White Blood Count 4.2 X10*3/uL (4.8-10.8)
[2022-08-28 16:09] LABS: INTERNATIONAL NORM RATIO 0.9 (0.9-1.1); Prothrombin Time 10.1 SEC (10.0-13.1)
[2022-08-28 16:09] LABS: VBG Base Excess 15.8 mmol/L; VBG HCO3 43 mmol/L (22-26); VBG pCO2 63 mmHg; VBG pH 7.44 (7.32-7.43); VBG pO2 73 mmHg
[2022-08-28 16:11] LABS: Venous Blood Gas Refer to POC result
[2022-08-28 16:27] LABS: Alanine Aminotransferase 24 U/L (0-40); Alkaline Phosphatase 79 U/L (39-117); Anion Gap 14 (12-20); Aspartate Amino Transferase 26 U/L (5-37); Bilirubin Direct 0.1 mg/dL (0.0-0.5); Bilirubin Total 0.4 mg/dL (0.0-1.0); Blood Urea Nitrogen 11 mg/dL (9-16); Calcium 9.3 mg/dL (8.4-10.2); Carbon Dioxide 32 mmol/L (22-29); Chloride 98 mmol/L (96-108); Creatinine Clr Calc Pharmacy 81.8; Estimated Glomerular Filt Rate > 60; Glucose Random 123 mg/dL (60-115); Magnesium 1.7 mg/dL (1.6-2.6); Potassium 3.8 mmol/L (3.3-5.1); Sodium 140 mmol/L (135-145); Total Protein 6.3 g/dL (6.5-8.0)
[2022-08-28 16:28] LABS: COVID-19 Test Negative (Negative); IDNOW Serial# BCCEAD1C
[2022-08-28 16:32] LABS: B Type Natriuretic Peptide 17 pg/mL (<100)
[2022-08-28 16:34] LABS: Troponin-I High Sensitivity 3.8 ng/L (<3.5-35.0)
[2022-08-28 18:32] VITALS: PULSE 68; RESP 20; O2SAT 97
[2022-08-28 18:35] VITALS: BP 116/62; PULSE 70; RESP 20; O2SAT 97
[2022-08-28 19:50] LABS: Glucose, Whole Blood 111 mg/dL (60-115)
[2022-08-28 19:52] VITALS: O2SAT 94
[2022-08-28 20:01] VITALS: BP 104/52; PULSE 80; RESP 19; TEMP 36.6; O2SAT 98
--- NOTE | 2022-08-28 21:03 | PC.NURSE ---
pt assessed, speaking with clear speech, sitting up, denies any difficulty breathing at this time
== END 2022-08-28 22:54 | disposition home or self-care (01) ==
PROVIDERS: Physician Assistant; Emergency Provider Internal Medicine; PCP Internal Medicine
DX: J44.9 Chronic obstructive pulmonary disease, unspecified (principal); R60.0 Localized edema; M79.89 Other specified soft tissue disorders; I95.9 Hypotension, unspecified; E11.9 Type 2 diabetes mellitus without complications; I10 Essential (primary) hypertension; Z79.4 Long term (current) use of insulin; D64.9 Anemia, unspecified; Z20.822 Contact with and (suspected) exposure to COVID-19
CPT/HCPCS: 36415; 71045; 80048; 80076; 82803; 82947; 83735; 83880; 84484; 85025; 85610; 87635; 93005; 94640; 99284; 99285

== ENCOUNTER 2022-09-20 08:08 | Outpatient (REF) | payer MEDICARE, SELFPAY ==
[2022-09-20 08:19] LABS: MANUAL DIFF FLAG NO
[2022-09-20 08:54] LABS: Basophils Absolute Auto 0.1 X10*3/uL (0.0-0.2); Eosinophils Absolute Auto 0.5 X10*3/uL (0.0-0.4); Eosinophils Percent Auto 7.8 % (0-4); Hematocrit 38.4 % (42.0-52.0); Hemoglobin 11.9 g/dl (14.0-18.0); Imm Gran Abs Auto 0.02 X10*3/uL (0.00-0.03); Imm Gran Pct Auto 0.3 % (0.0-0.4); Lymphocytes Absolute Auto 1.1 X10*3/uL (1.2-4.9); Lymphocytes Percent Auto 17.2 % (20-40); Mean Corpuscular Hemoglobin 30.2 pg (27.0-33.0); Mean Corpuscular Volume 97.5 fL (80.0-98.0); Mean Platelet Volume 10.7 fL (9.4-12.4); Monocytes Absolute Auto 0.6 X10*3/uL (0.1-1.2); Monocytes Percent Auto 9.4 % (2-11); Neutrophils Percent Auto 64.3 % (45-73); Platelet Count 173 X10*3/uL (160-400); Red Blood Count 3.94 X10*6/uL (4.60-5.80); Red Cell Distribution Width 13.5 % (11.0-16.0); White Blood Count 6.3 X10*3/uL (4.8-10.8)
[2022-09-20 09:27] LABS: Estimated Average Glucose 169 mg/dL; Hemoglobin A1c % 7.5 %
[2022-09-20 09:28] LABS: Alanine Aminotransferase 14 U/L (0-40); Anion Gap 14 (12-20); Aspartate Amino Transferase 16 U/L (5-37); Blood Urea Nitrogen 10 mg/dL (9-16); Calcium 9.2 mg/dL (8.4-10.2); Carbon Dioxide 38 mmol/L (22-29); Chloride 95 mmol/L (96-108); Cholesterol 185 mg/dL; Estimated Glomerular Filt Rate > 60; Glucose Fasting 125 mg/dL (60-99); HDL Cholesterol 31 mg/dL; Iron 84 mcg/dL (45-160); LDL Cholesterol Calculated 125 mg/dl; Percent Iron Saturation 27 % (15-50); Potassium 3.9 mmol/L (3.3-5.1); Sodium 143 mmol/L (135-145); Total Iron Binding Capacity 313 mcg/dL (228-428); Triglycerides 147 mg/dL; Unsaturated Iron Binding 229 ug/dL
[2022-09-20 09:47] LABS: Creatinine Urine 123.68 mg/dL; Microalbum/Creatinine Ratio Ur 10.5 ug/mg cr
[2022-09-20 09:48] LABS: PSA,Total (Free>4and<10) 0.24 ng/mL (0.00-4.00); Vitamin D 25-OH Total 42.7 ng/mL (>30)
== END 2022-09-20 08:09 | disposition home or self-care (01) ==
LOC: HO.LAB 08:08
PROVIDERS: PCP Internal Medicine; Visit Provider Internal Medicine
DX: D64.9 Anemia, unspecified (principal); E11.65 Type 2 diabetes mellitus with hyperglycemia; E78.5 Hyperlipidemia, unspecified; K74.60 Unspecified cirrhosis of liver; F41.1 Generalized anxiety disorder; J44.9 Chronic obstructive pulmonary disease, unspecified; Z12.5 Encounter for screening for malignant neoplasm of prostate
CPT/HCPCS: 36415; 80048; 80061; 82043; 82306; 83036; 83540; 84153; 84450; 84460; 85025

== ENCOUNTER 2022-12-26 12:41 | Outpatient (AMB) | payer MEDICARE, SELFPAY ==
--- NOTE | 2022-12-26 13:16 | MHC.PC.OV ---
Vital Signs 12/26/22 13:19 Height 5 ft Weight 187 lb BMI 36.5 BP 94/52 L Blood Pressure Location Rt brachial Position Sitting Pulse 81 Pulse Source Pulse Oximeter Pulse Oximetry (%) 94 Oxygen Delivery Method Nasal Cannula Intake Visit Reasons: 3m follow up Intake Note: Pt is here today for his 3 mo. f/u Allergies fluticasone furoate [From Trelegy Ellipta] Allergy (Intermediate, Verified 12/26/22 13:57) Rash vilanterol [From Trelegy Ellipta] Allergy (Intermediate, Verified 12/26/22 13:57) Rash umeclidinium [Incruse Ellipta] Allergy (Unknown, Verified 12/26/22 13:57) Hives furosemide [From Lasix] Adverse Reaction (Intermediate, Verified 12/26/22 13:57) Hallucinations Medication List - Last Reconciled 12/26/22 by Anne-Marie Muro MD albuterol sulfate 90 mcg/actuation 2 puffs PO Q4H PRN atorvastatin 80 mg PO BEDTIME blood sugar diagnostic (FreeStyle Lite Strips) check fasting glucose BID ac blood-glucose meter (FreeStyle Lite Meter kit) As directed budesonide-formoterol 160-4.5 mcg/actuation (Symbicort) 2 puffs inhalation DAILY calcium carbonate-vitamin D3 600 mg-10 mcg (400 unit) 1 tab PO DAILY escitalopram oxalate 20 mg PO DAILY glipizide 5 mg PO BID hydrochlorothiazide 25 mg PO QAM isosorbide mononitrate ER 30 mg PO DAILY lorazepam (Ativan) 1 mg PO BID PRN metformin 1,000 mg PO BID metoprolol tartrate 25 mg PO BID omeprazole 20 mg PO DAILY@0630 Oxygen Home Use As directed polyethylene glycol 3350 17 grams PO DAILY PRN Tobacco use date assessed: 12/26/22 Fall risk assessment: No Falls in past year Last assessed Fall Risk: 12/26/22 Dental Screening Dental Screen Date: 12/26/22 Did you have a dental visit in the last 12 months?: No Was dental information given to patient?: Patient declined HPI 3m follow up HPI Details 72-year-old male, here today for follow-up on his diabetes mellitus with neuropathy, dyslipidemia, and depression with anxiety. He is up-to-date with his podiatry follow-up, sees Dr. Hunt He has not been very compliant with his diet. His last hemoglobin A1c in September 2022 was 7.5%. He has been checking his blood sugar at home, but not regularly and it has been running in the 200s most of the time as per patient He is mostly sedentary, due to his severe COPD, has O2 for home use. He is currently being followed by Cardiology for his aortic stenosis, bilateral carotid artery disease. He refuses to get any vaccines, including the COVID vaccine and flu shot. [facility] Medical History (Updated 01/29/23 @ 02:44 by Anne-Marie Muro MD) Bilateral carotid artery disease CAD (coronary artery disease) Anxiety and depression Constipation Anemia Chronic respiratory failure with hypoxia and hypercapnia Radiation fibrosis of lung Acute on chronic respiratory failure with hypoxia and hypercapnia HTN (hypertension) Dyslipidemia History of pneumonia Bacteremia due to Enterococcus COPD, severe Diabetes mellitus with hyperglycemia, without long-term current use of insulin Urinary incontinence Asthma Lung cancer Skin cancer Surgical History (Updated 09/21/22 @ 13:41 by Anne-Marie Muro MD) Hx of heart artery stent History of esophagogastroduodenoscopy (EGD) Hx of colonoscopy Family History Father Medical history non-contributory Mother Medical history non-contributory Unknown family medical history Lung collapse Brother No problems noted. Brother No problems noted. Son Substance use disorder Son No problems noted. Daughter No problems noted. Sister No problems noted. Sister No problems noted. Sister No problems noted. Sister No problems noted. Other HTN (hypertension) Social History Household Members: Family Household Members Other:: grandson Housing: House Are you a primary before and after school daycare worker to a significant other at home: No Do you presently have visiting nurse or other home services: No Alcohol intake: former Patient Tobacco Use Status: Former Tobacco user e-Cigarette/Vaping Use: Never Used Advance Directives Date on File: 06/08/22 service: No Current occupational status: retired Cognitive needs: No Hearing needs: No Vision needs: No Questionnaire Thrive Questionnaire Date Thrive assessed: 08/20/22 SAUMYA-7 AMB Questionnaire SAUMYA-7 Date SAUMYA - 7 assessed: 09/21/22 Source: Developed by Drs. Finn Stevens, Klaudia Bonilla, Reinaldo Suero and colleagues, with an educational lolita from [employer]. Review of Systems Const Reports fatigue, Denies fever(s), Denies frequent falls, Denies headache(s), Reports lethargy and Denies poor appetite Eyes Reports no additional complaints ENT Reports dizziness (Occasional), Denies headache(s), Denies nasal congestion, Denies nose pain, Denies post nasal drip and Denies sinus pain Card Denies chest pain, Denies edema, Denies palpitations and Reports dyspnea on exertion Resp Details: Has O2 nasal cannula when at home Reports cough (Intermittent), Denies pain with cough, Reports dyspnea on exertion and Denies wheezing GI Denies melena, Reports bloating, Denies hematochezia, Denies change in bowel habits and Denies heartburn Denies hematuria, Denies oliguria, Denies difficulty urinating and Reports urinary frequency Musc Reports arthralgias, Denies joint swelling and Reports stiffness Neuro Reports dizziness (Occasional), Denies frequent falls and Denies headache(s) Psych Reports no additional complaints and Reports anxiety Endo Reports fatigue, Reports polydipsia, Reports polyuria and Denies palpitations John/Lymph Denies easy bleeding and Reports easy bruising Aller/Immun Reports no additional complaints and Denies wheezing Physical exam (Primary Care) Vital Signs: Last Vital Signs Pulse 81 12/26/22 13:19 BP 94/52 L 12/26/22 13:19 Pulse Ox 91 L 12/26/22 13:19 Oxygen Delivery Method Nasal Cannula 12/26/22 13:19 BMI result Body Mass Index 36.5 Tobacco/Smoking Status: Tobacco use Status Tobacco use date assessed 12/26/22 12/26/22 13:23 Patient Tobacco Use Status Former Tobacco user 12/26/22 13:17 e-Cigarette/Vaping Use Never Used 12/26/22 13:17 Thrive Assessment: Date of Thrive Assessment Date Thrive assessed 08/20/22 12/26/22 13:17 Const Other: Alert oriented x3 in no acute cardiorespiratory distress noted ambulatory with portable O2 Nutritional Appearance: obese Orientation/consciousness: patient oriented x3 [facility] General nose exam: Normal external nose present and No nasal discharge present Mouth: Normal oral and palatal mucosa present and moist mucous membranes Eyes General: appearance normal, both eyes and all related structures Neck Other: Supple, no lymphadenopathy, thyroid gland nonpalpable Resp Other: Distant breath sounds bilaterally, no wheezing Cardio Other: S1-S2 present regular rate and rhythm GI Other: Obese, soft, nontender, no mass palpated Skin General skin exam: no rashes or lesions noted Neuro General: patient oriented x3, moves all extremities, Normal light touch and pain sensation and no focal motor deficits Extrem General: Yes full ROM and Yes no joint enlargement Psych Appearance: grossly normal and well kempt Mental Status: mental status grossly normal Speech and movement: Normal speech and movement present Affect: normal affect Attitude: cooperative Thought process: Normal thought process present Results AMB Hemoglobin A1c AMB Hemoglobin A1c 9.1 % Last Edit by Jaelyn Rutledge CMA on 12/26/22 13:46 Results Reviewed Results Reviewed: Laboratory Last Values Hgb A1c (Clinic) 9.1 % (4.0-6.0) H 12/26/22 13:37 Assessment and Plan Assessment & Plan (1) Anxiety and depression: Code(s): F41.9 - Anxiety disorder, unspecified; F32.A - Depression, unspecified Plan: Will continue on escitalopram 20 mg once a day, and takes lorazepam 0.5 mg 1 tablet once a day as needed for acute anxiety attacks. Declines referral for counseling (2) Diabetes mellitus with hyperglycemia, without long-term current use of insulin: Code(s): E11.65 - Type 2 diabetes mellitus with hyperglycemia Qualifiers: Diabetes mellitus type: type 2 Qualified Code(s): E11.65 - Type 2 diabetes mellitus with hyperglycemia Plan: Today seen A1c is at 9.1%, up from 7.5% 3 months ago. Continued on metformin a 1000 mg 1 tablet twice a day, in addition to glipizide 5 mg 1 tablet twice a day. Declines starting insulin. Advised to take medicine as directed, check blood sugar at least twice a day before meals and keep a log of the readings for further review. Reinforced adherence to low carb diet advised to schedule appointment for diabetes retinopathy screening. Sees Dr. Hunt for his diabetes foot exam. Advised to get vaccinated against the flu, updated pneumonia vaccine, RSV vaccine and COVID booster, but patient refusing vaccination (3) Dyslipidemia: Code(s): E78.5 - Hyperlipidemia, unspecified Plan: Reminded to get his fasting labs done, already ordered. In atorvastatin 80 mg daily, with a goal LDL cholesterol of less than 70 mg/dL Orders: Orders AMB Hemoglobin A1c 12/26/22 E11.65 - Type 2 diabetes mellitus with hyperglycemia Medications: Changed From lorazepam Patient may request partial fill 1 mg PO BID PRN 20 tabs 0RF anxiety To lorazepam (Ativan) Patient may request partial fill 0.5 mg (1/2 x 1 mg) PO BID PRN 20 tabs 0RF anxiety Coding Level of Care Code Est Pt Level 4 (37800) Diagnoses Anxiety and depression F41.9; F32.A Type 2 diabetes mellitus with hyperglycemia, without long-term current use of insulin E11.65 Diabetes mellitus type: type 2 Dyslipidemia E78.5
[2022-12-26 13:19] VITALS: BP 94/52; PULSE 81; O2SAT 94; BMI 36.5
== END 2022-12-26 14:09 | disposition home or self-care (01) ==
PROVIDERS: PCP Internal Medicine; Visit Provider Internal Medicine
DX: E11.65 Type 2 diabetes mellitus with hyperglycemia (principal)
CPT/HCPCS: 83036; 99214

== ENCOUNTER 2023-01-04 08:37 | Outpatient (REF) | payer MEDICARE, SELFPAY ==
[2023-01-04 11:14] LABS: MANUAL DIFF FLAG NO
[2023-01-04 11:21] LABS: Basophils Absolute Auto 0.1 X10*3/uL (0.0-0.2); Basophils Percent Auto 0.9 % (0-2); Eosinophils Absolute Auto 0.4 X10*3/uL (0.0-0.4); Eosinophils Percent Auto 6.3 % (0-4); Hematocrit 41.5 % (42.0-52.0); Hemoglobin 12.6 g/dl (14.0-18.0); Imm Gran Abs Auto 0.02 X10*3/uL (0.00-0.03); Imm Gran Pct Auto 0.3 % (0.0-0.4); Lymphocytes Absolute Auto 1.2 X10*3/uL (1.2-4.9); Lymphocytes Percent Auto 20.9 % (20-40); Mean Corpuscular HGB Conc 30.4 g/dl (31.0-36.0); Mean Corpuscular Volume 95.4 fL (80.0-98.0); Mean Platelet Volume 10.6 fL (9.4-12.4); Monocytes Absolute Auto 0.5 X10*3/uL (0.1-1.2); Monocytes Percent Auto 9.1 % (2-11); Neutrophils Absolute Auto 3.6 x10*3/uL (2.0-8.3); Neutrophils Percent Auto 62.5 % (45-73); Platelet Count 204 X10*3/uL (160-400); Red Blood Count 4.35 X10*6/uL (4.60-5.80); Red Cell Distribution Width 12.8 % (11.0-16.0); White Blood Count 5.7 X10*3/uL (4.8-10.8)
[2023-01-04 11:59] LABS: Estimated Average Glucose 209 mg/dL; Hemoglobin A1c % 8.9 % (<6.0)
[2023-01-04 12:02] LABS: Alanine Aminotransferase 13 U/L (0-40); Anion Gap 19 (12-20); Aspartate Amino Transferase 19 U/L (5-37); Blood Urea Nitrogen 13 mg/dL (9-16); Calcium 10.1 mg/dL (8.4-10.2); Carbon Dioxide 36 mmol/L (22-29); Chloride 92 mmol/L (96-108); Cholesterol 204 mg/dL (<200); Estimated Glomerular Filt Rate > 60; Glucose Fasting 139 mg/dL (60-99); HDL Cholesterol 35 mg/dL (>40); LDL Cholesterol Calculated 141 mg/dL (<100); Potassium 4.6 mmol/L (3.3-5.1); Sodium 142 mmol/L (135-145); Triglycerides 144 mg/dL (<150)
[2023-01-04 12:07] LABS: Folate 9.3 ng/mL (> or = 4.0); TSH reflex Free T4 1.69 uIU/mL (0.32-4.0); Vitamin B12 434 pg/mL (200-900); Vitamin D 25-OH Total 57.6 ng/mL (>30)
[2023-01-04 12:10] LABS: Creatinine Urine 165.28 mg/dL; Microalbum/Creatinine Ratio Ur 12.7 ug/mg cr (<30)
== END 2023-01-04 08:38 | disposition home or self-care (01) ==
LOC: HO.HMGCLDS 08:37
PROVIDERS: PCP Internal Medicine; Visit Provider Internal Medicine
DX: I77.9 Disorder of arteries and arterioles, unspecified (principal); I25.10 Atherosclerotic heart disease of native coronary artery without angina pectoris; F41.9 Anxiety disorder, unspecified; F32.A Depression, unspecified; E11.65 Type 2 diabetes mellitus with hyperglycemia; J44.9 Chronic obstructive pulmonary disease, unspecified; D64.9 Anemia, unspecified; E78.5 Hyperlipidemia, unspecified; F41.1 Generalized anxiety disorder; R53.83 Other fatigue; Z95.5 Presence of coronary angioplasty implant and graft
CPT/HCPCS: 36415; 80048; 80061; 82043; 82306; 82570; 82607; 82746; 83036; 84443; 84450; 84460; 85025

== ENCOUNTER 2023-02-08 14:42 | Emergency (ER) | payer MEDICARE, SELFPAY ==
--- NOTE | ~2023-02-08 | CT_ITS ---
EXAMINATION: CT HEAD WITHOUT CONTRAST CLINICAL INFORMATION: Altered mental status. COMPARISON: CT head 03/06/2019. TECHNIQUE: Contiguous axial imaging was performed from the skull base to vertex without intravenous administration of contrast. This CT examination was performed using dose optimization techniques as appropriate, variously including the following: *Automated exposure control *Adjustment of mA and/or kV according to patient size (this includes techniques or standardized protocols for targeted exams where dose is matched to indication/reason for exam; i.e. extremities or head) *Use of iterative reconstruction technique DLP: 656 mGy-cm FINDINGS: Mild asymmetric hypoattenuation in the posteromedial left occipital lobe (2:21) is unchanged compared to 03/06/2019. There is no evidence of acute intracranial hemorrhage or edematous territorial infarction. A few foci of hypoattenuation in the periventricular and deep white matter are consistent with mild microangiopathy. Proportional prominence of the ventricles and sulcal spaces. No evidence for obstructive hydrocephalus. No abnormal mass effect or midline shift. No extra-axial fluid collections. No acute soft tissue or osseous abnormalities. The mastoid air cells and paranasal sinuses are clear. CT/CT head/brain wo IV con IMPRESSION: 1. No evidence of acute intracranial hemorrhage or edematous territorial infarction. 2. Mild asymmetric hypoattenuation in the posteromedial left occipital lobe is unchanged compared to 03/06/2019. 3. Background of mild chronic microangiopathy and generalized volume loss.
--- NOTE | ~2023-02-08 | XR_ITS ---
EXAMINATION: XR CHEST CLINICAL INFORMATION: Shortness of breath. COMPARISON: Chest radiograph 08/28/2022. TECHNIQUE: 2 views of the chest were obtained. FINDINGS: Stable focal opacification of the left apex with associated volume loss and cardiomediastinal retraction. New blunting of the right lateral costophrenic angle, best seen on the frontal view. Unchanged appearance of the cardiomediastinal silhouette. No acute osseous findings. Thoracic spondylosis. Visualized upper abdomen is within normal limits. XR/XR chest 2V IMPRESSION: 1. New blunting of the right lateral costophrenic angle suggestive of small pleural effusion. 2. Stable focal opacification of the left apex with associated volume loss and cardiomediastinal retraction.
[2023-02-08 14:49] VITALS: BP 114/53; BP 121/69; PULSE 81; PULSE 88; RESP 18; TEMP 36.9; O2SAT 91; O2SAT 93; BMI 69.4
[2023-02-08 15:26] VITALS: BP 109/56; PULSE 82; RESP 16; O2SAT 92
--- NOTE | 2023-02-08 16:03 | ED_ITS ---
HPI - General Adult General Chief complaint: Dyspnea Stated complaint: HALLUCINATIONS AMS Time Seen by Provider: 02/08/23 16:00 Source: patient and EMS Mode of arrival: EMS Limitations: no limitations History of Present Illness HPI narrative: Patient is a 73 year old assigned male at with a history of anxiety, COPD on 2 liters NC chronically, CAD, and GERD presenting to the emergency department today with hallucinations. Patient states that over the last few weeks he has had an increase of hallucinations. Patient states that he is seeing things others do not see. Patient states that he is intermittently taking prescribed Xanax for anxiety at home but otherwise has no changes. Patient states that he is not currently short of breath, EMS thought he was short of breath because they got to his house after he had been walking. Patient denies any dizziness, lightheadedness, abdominal pain, nausea, vomiting, fever, chills, blurry vision, double vision, loss of vision, chest pain, difficulty breathing, shortness of breath, back pain, night sweats, pain with urination, increased urinary frequency, increased urinary urgency, blood in his urine or stool, syncope or a near syncopal episode, recent trauma or falls, bowel incontinence, bladder incontinence, bowel retention, bladder retention, or any other complaints at this time. Onset (ago): week(s) Relieving factors: none Exacerbating factors: none Associated symptoms: denies other symptoms Treatments prior to arrival: none Related Data Home Medications Medication Instructions Recorded Confirmed albuterol sulfate 90 mcg/actuation 2 puff PO Q4H PRN Shortness Of 01/14/20 09/21/22 aerosol inhaler Breath Or Wheezing budesonide-formoterol HFA 160 2 puff inhalation DAILY 03/14/21 09/21/22 mcg-4.5 mcg/actuation aerosol inhaler (Symbicort) isosorbide mononitrate 30 mg 30 mg PO DAILY 03/14/21 09/21/22 tablet,extended release 24 hr calcium carbonate 600 mg-vitamin 1 tab PO DAILY 08/04/21 09/21/22 D3 10 mcg (400 unit) tablet Oxygen Home Use 06/14/22 09/21/22 glipizide 5 mg tablet 5 mg PO BID 09/21/22 09/21/22 Previous Rx's Medication Instructions Recorded blood-glucose meter (FreeThe Blazeyle #1 ea 01/23/22 Lite Meter kit) atorvastatin 80 mg tablet 80 mg PO BEDTIME #90 tabs 02/05/22 polyethylene glycol 3350 17 gram 17 g PO DAILY PRN Constipation #30 08/07/22 oral powder packet ea escitalopram oxalate 20 mg tablet 20 mg PO DAILY #30 tabs 08/20/22 omeprazole 20 mg capsule,delayed 20 mg PO DAILY@0630 11/13/22 release metformin 1,000 mg tablet 1,000 mg PO BID #180 tabs 11/15/22 lorazepam 1 mg tablet (Ativan) 0.5 mg (1/2 x 1 mg) PO BID PRN 12/26/22 anxiety #20 tabs hydrochlorothiazide 25 mg tablet 25 mg PO QAM #90 tabs 12/27/22 metoprolol tartrate 25 mg tablet 25 mg PO BID #180 tabs 01/09/23 blood sugar diagnostic (FreeStyle #100 ea 01/10/23 Lite Strips) ezetimibe 10 mg tablet 10 mg PO DAILY #30 tabs 01/29/23 sitagliptin phosphate 100 mg 100 mg PO DAILY #30 tabs 01/29/23 tablet (Januvia) Allergies Allergy/AdvReac Type Severity Reaction Status Date / Time fluticasone furoate Allergy Intermediate Rash Verified 12/26/22 13:57 [From Trelegy Ellipta] vilanterol Allergy Intermediate Rash Verified 12/26/22 13:57 [From Trelegy Ellipta] umeclidinium Allergy Unknown Hives Verified 12/26/22 13:57 [Incruse Ellipta] furosemide [From Lasix] AdvReac Intermediate Hallucinati Verified 12/26/22 13:57 ons Review of Systems 2 Constitutional: Constitutional: Reports no additional constitutional complaints, Denies chills, Denies fever(s) and Denies night sweats Eyes: Eyes: Reports no additional eye complaints, Denies blurry vision, Denies change in vision, Denies diplopia, Denies eye discharge, Denies loss of vision and Denies eye pain ENT: Denies dizziness Cardiovascular: Cardiovascular: Reports no additional cardiovascular complaints, Denies chest pain, Denies lightheadedness, Denies Loss of Consciousness and Denies dyspnea Respiratory: Respiratory: Reports no additional respiratory complaints and Denies dyspnea Gastrointestinal: Gastrointestinal: Reports no additional gastrointestinal complaints, Denies abdominal pain, Denies melena, Denies hematochezia, Denies change in bowel habits and Denies change in stool character Genitourinary: Genitourinary: Reports no additional male genitourinary complaints, Denies hematuria, Denies oliguria, Denies difficulty urinating, Denies dysuria, Denies urinary frequency, Denies urinary hesitancy, Denies urinary incontinence and Denies urinary urgency Musculoskeletal: Musculoskeletal: Reports no additional musculoskeletal complaints, Denies numbness and Denies tingling Neurologic: Denies dizziness, Denies loss of vision, Denies numbness and Denies tingling Psychiatric: Psychiatric: Reports no additional psychiatric complaints and Reports visual hallucinations Endocrine: Endocrine: Reports no additional endocrine complaints Hematologic/Lymphatic: Hematologic/Lymphatic: Reports no additional hematologic/lymphatic complaints Allergic/Immunologic: Allergic/Immunologic: Reports no additional allergic/immunologic complaints [facility] Past Medical History Attestation statement: The following information was validated with the patient. Source: old records reviewed and nursing notes reviewed Medical History (Updated 02/08/23 @ 18:18 by DARRYL Aguilar) Bilateral carotid artery disease CAD (coronary artery disease) Anxiety and depression Constipation Anemia Chronic respiratory failure with hypoxia and hypercapnia Radiation fibrosis of lung Acute on chronic respiratory failure with hypoxia and hypercapnia HTN (hypertension) Dyslipidemia History of pneumonia Bacteremia due to Enterococcus COPD, severe Diabetes mellitus with hyperglycemia, without long-term current use of insulin Urinary incontinence Asthma Lung cancer Skin cancer Surgical History Hx of heart artery stent History of esophagogastroduodenoscopy (EGD) Hx of colonoscopy Family History Family History Father Medical history non-contributory Mother Medical history non-contributory Unknown family medical history Lung collapse Brother No problems noted. Brother No problems noted. Son Substance use disorder Son No problems noted. Daughter No problems noted. Sister No problems noted. Sister No problems noted. Sister No problems noted. Sister No problems noted. Other HTN (hypertension) Social History Social History Household Members: Family Household Members Other:: grandson Housing: House Are you a primary home care assistant to a significant other at home: No Do you presently have visiting nurse or other home services: No Alcohol intake: never Patient Tobacco Use Status: Former Tobacco user Smoked in Last 30 Days: No e-Cigarette/Vaping Use: Never Used Use of substances other than those prescribed or required for medical reasons: No Advance Directives: Yes Advance Directives on File: Yes Advance Directives Date on File: 06/08/22 service: No Current occupational status: retired Cognitive needs: No Hearing needs: No Vision needs: No Physical Exam ED Vital Signs: Vital Signs - 24 hr 02/08/23 14:49 02/08/23 15:26 02/08/23 18:00 Temperature 98.5 F Pulse Rate 81 82 87 Respiratory Rate 18 16 18 Blood Pressure 114/53 L 109/56 L Pulse Oximetry 93 92 Oxygen Delivery Method Nasal Cannula Nasal Cannula Nasal Cannula Oxygen Flow Rate 2 02/08/23 18:57 Temperature Pulse Rate Respiratory Rate Blood Pressure Pulse Oximetry 92 Oxygen Delivery Method Room Air Oxygen Flow Rate BMI result Body Mass Index 69.4 Const General: cooperative, no acute distress, alert and awake Nutritional Appearance: well nourished Orientation/consciousness: patient oriented x3 Limitations: no limitations HENMT Head: Yes normal to inspection and Yes atraumatic Ears: hearing grossly normal bilaterally and external ears normal General nose exam: Normal external nose present, no nasal discharge noted and no epistaxis Face and sinus: Yes normal facial exam, No abrasion and No laceration Mouth: Normal oral and palatal mucosa present, no drooling and no muffled voice Eyes General: appearance normal, both eyes and all related structures Periorbital: periorbital findings normal Eyelids: Yes eyelids normal Conjunctivae: conjunctivae normal Pupils: Equal, round and reactive pupils present EOM: EOMs intact bilaterally Neck Neck: Yes normal visual inspection, Yes full ROM and Yes no lymphadenopathy Chest Chest palpation & inspection: normal inspection of the chest Resp Other: on 2 liters of oxygen via nasal canula Effort & Inspection: normal respiratory effort and able to speak in complete sentences GI Inspection: Yes normal to inspection Neuro General: patient oriented x3 and moves all extremities Cranial nerves: Yes Equal, round and reactive pupils present Cognition (Neuro): normal cognition Motor exam (neuro): 5/5 motor strength present throughout Sensory Exam: Normal double simultaneous stimulation for sensation Coordination: [id number] test normal Extrem General: Yes normal to inspection, Yes full ROM and Yes capillary refill normal Psych Appearance: grossly normal Mental Status: mental status grossly normal Affect: normal affect Attitude: cooperative Thought process: Normal thought process present Thought content: Normal thought content present Insight: Good insight present (Psych) Medical Decision Making Medical Decision Making [facility] Narrative: Patient is a 73 year old assigned male at with a history of anxiety, COPD on 2 liters NC chronically, CAD, and GERD presenting to the emergency department today with hallucinations. Patient's physical exam was unremarkable. Patient's blood work showed an elevated CO2 however, this is chronic for the patient. Patient's urine showed no acute process. Patient's EKG was unremarkable. Patient's chest x-ray and head CT showed no acute process. I explained my physical exam findings as well as all test results to the patient and the patient's . I answered all questions asked by the patient and the patient's . Patient's oxygen saturation was continually above 90% while in the department. I stressed the importance of the patient taking his medication as prescribed. I stressed the importance of the patient following up with his primary care provider and a neurologist. I stressed the importance of the patient returning to the emergency department immediately if his symptoms were to worsen or if he were to develop any dizziness, shortness of breath, difficulty breathing, chest pain, blurry vision, loss of vision, nausea, vomiting, abdominal pain, fever, chills, back pain, or any other complaints. Patient and the patient's verbalized agreement and understanding with this treatment plan and discharge. Differential Diagnosis Differential Diagnoses: The differential diagnosis associated with the presentation includes Dementia Cognitive decline AMS Hallucinations Admission/Observation Consideration of admission/observation: Escalation of care including admission/observation considered Patient would have been admitted to the hospital had his work up had any findings where hospital admission was appropriate and his clinical presentation warranted hospital admission. Lab Data [facility] Lab Attestation statement: I reviewed the patient's lab results. My interpretation of these results are in the [facility] Rationale portion of this note. 02/08/23 16:59 02/08/23 16:59 Labs: Lab Results 02/08/23 02/08/23 02/08/23 Range/Units 16:59 17:02 17:06 WBC 5.1 (4.8-10.8) X10*3/uL RBC 3.67 L (4.60-5.80) X10*6/uL Hgb 10.8 L (14.0-18.0) g/dl Hct 35.7 L (42.0-52.0) % MCV 97.3 (80.0-98.0) fL MCH 29.4 (27.0-33.0) pg MCHC 30.3 L (31.0-36.0) g/dl RDW 13.6 (11.0-16.0) % Plt Count 179 (160-400) X10*3/uL MPV 10.1 (9.4-12.4) fL Immature Gran % (Auto) 0.2 (0.0-0.4) % Neut % (Auto) 64.2 (45-73) % Lymph % (Auto) 18.5 L (20-40) % [place] % (Auto) 10.8 (2-11) % Eos % (Auto) 5.5 H (0-4) % Baso % (Auto) 0.8 (0-2) % Lymph # (Auto) 0.9 L (1.2-4.9) X10*3/uL [place] # (Auto) 0.6 (0.1-1.2) X10*3/uL Eos # (Auto) 0.3 (0.0-0.4) X10*3/uL Baso # (Auto) 0.0 (0.0-0.2) X10*3/uL Abs Immat Gran (auto) 0.01 (0.00-0.03) X10*3/uL Absolute Neuts (auto) 3.3 (2.0-8.3) x10*3/uL Absolute Nucleated RBC 0.000 (0.0-0.012) X10*3/uL Nucleated RBC % (auto) 0.0 (0.0-0.2) /100WBC PT (11.1-13.3) SEC INR (0.9-1.1) APTT (26.0-36.4) SEC VBG pH 7.40 (7.32-7.43) VBG pCO2 77 mmHg VBG pO2 77 mmHg VBG HCO3 48 H (22-26) mmol/L VBG O2 Saturation 98.0 % VBG Base Excess 19.4 mmol/L Sodium 141 (135-145) mmol/L Potassium 3.7 (3.3-5.1) mmol/L Chloride 92 L (96-108) mmol/L Carbon Dioxide 40 H* (22-29) mmol/L Anion Gap 13 (12-20) BUN 8 L (9-16) mg/dL Creatinine 0.77 (0.5-1.4) mg/dL Estim Creat Clear Calc 140.5 Estimated GFR > 60 Random Glucose 112 (60-115) mg/dL Calcium 8.8 D (8.4-10.2) mg/dL Magnesium 1.9 (1.6-2.6) mg/dL Total Bilirubin 0.4 (0.0-1.0) mg/dL AST 16 (5-37) U/L ALT 12 (0-40) U/L Alkaline Phosphatase 83 (39-117) U/L Ammonia 32 (13-55) umol/L Troponin I High Sens < 2.7 (<3.5-35.0) ng/L Total Protein 6.6 (6.5-8.0) g/dL Albumin 3.8 (3.5-5.0) g/dL Urine Color Yellow Urine Appearance Clear Urine pH 8.0 (5.0-9.0) Ur Specific [place] 1.010 (1.005-1.025) Urine Protein Negative (Neg-Trace) mg/dL Urine Glucose (UA) Negative (Negative) mg/dL Urine Ketones Negative (Negative) mg/dL Urine Blood Negative (Negative) Urine Nitrite Negative (Negative) Ur Leukocyte Esterase Negative (Negative) Urine Opiates Screen Not Detected (Not Detect) Urine Fentanyl Screen Not Detected (Not Detect) Ur Barbiturates Screen Not Detected (Not Detect) Ur Phencyclidine Scrn Not Detected (Not Detect) Ur Amphetamines Screen Not Detected (Not Detect) U Benzodiazepines Scrn Not Detected (Not Detect) Urine Cocaine Screen Not Detected (Not Detect) U Marijuana (THC) Screen Not Detected (Not Detect) Influenza Type A (PCR) NEGATIVE (Negative) Influenza Type B (PCR) NEGATIVE (Negative) RSV RNA Qual (PCR) NEGATIVE (Negative) SARS-CoV-2 RNA (RT-PCR) NEGATIVE (Negative) 02/08/23 Range/Units 18:12 WBC (4.8-10.8) X10*3/uL RBC (4.60-5.80) X10*6/uL Hgb (14.0-18.0) g/dl Hct (42.0-52.0) % MCV (80.0-98.0) fL MCH (27.0-33.0) pg MCHC (31.0-36.0) g/dl RDW (11.0-16.0) % Plt Count (160-400) X10*3/uL MPV (9.4-12.4) fL Immature Gran % (Auto) (0.0-0.4) % Neut % (Auto) (45-73) % Lymph % (Auto) (20-40) % [place] % (Auto) (2-11) % Eos % (Auto) (0-4) % Baso % (Auto) (0-2) % Lymph # (Auto) (1.2-4.9) X10*3/uL [place] # (Auto) (0.1-1.2) X10*3/uL Eos # (Auto) (0.0-0.4) X10*3/uL Baso # (Auto) (0.0-0.2) X10*3/uL Abs Immat Gran (auto) (0.00-0.03) X10*3/uL Absolute Neuts (auto) (2.0-8.3) x10*3/uL Absolute Nucleated RBC (0.0-0.012) X10*3/uL Nucleated RBC % (auto) (0.0-0.2) /100WBC PT 11.2 (11.1-13.3) SEC INR 0.9 (0.9-1.1) APTT 31.9 (26.0-36.4) SEC VBG pH (7.32-7.43) VBG pCO2 mmHg VBG pO2 mmHg VBG HCO3 (22-26) mmol/L VBG O2 Saturation % VBG Base Excess mmol/L Sodium (135-145) mmol/L Potassium (3.3-5.1) mmol/L Chloride (96-108) mmol/L Carbon Dioxide (22-29) mmol/L Anion Gap (12-20) BUN (9-16) mg/dL Creatinine (0.5-1.4) mg/dL Estim Creat Clear Calc Estimated GFR Random Glucose (60-115) mg/dL Calcium (8.4-10.2) mg/dL Magnesium (1.6-2.6) mg/dL Total Bilirubin (0.0-1.0) mg/dL AST (5-37) U/L ALT (0-40) U/L Alkaline Phosphatase (39-117) U/L Ammonia (13-55) umol/L Troponin I High Sens (<3.5-35.0) ng/L Total Protein (6.5-8.0) g/dL Albumin (3.5-5.0) g/dL Urine Color Urine Appearance Urine pH (5.0-9.0) Ur Specific [place] (1.005-1.025) Urine Protein (Neg-Trace) mg/dL Urine Glucose (UA) (Negative) mg/dL Urine Ketones (Negative) mg/dL Urine Blood (Negative) Urine Nitrite (Negative) Ur Leukocyte Esterase (Negative) Urine Opiates Screen (Not Detect) Urine Fentanyl Screen (Not Detect) Ur Barbiturates Screen (Not Detect) Ur Phencyclidine Scrn (Not Detect) Ur Amphetamines Screen (Not Detect) U Benzodiazepines Scrn (Not Detect) Urine Cocaine Screen (Not Detect) U Marijuana (THC) Screen (Not Detect) Influenza Type A (PCR) (Negative) Influenza Type B (PCR) (Negative) RSV RNA Qual (PCR) (Negative) SARS-CoV-2 RNA (RT-PCR) (Negative) Independent Interpretation I performed an independent interpretation of an: EKG, Plain X-Ray and CT Scan Interpretation: My interpretation is in agreement with the radiologist's impression of these imaging studies. - EXAMINATION: XR CHEST CLINICAL INFORMATION: Shortness of breath. COMPARISON: Chest radiograph 08/28/2022. TECHNIQUE: 2 views of the chest were obtained. FINDINGS: Stable focal opacification of the left apex with associated volume loss and cardiomediastinal retraction. New blunting of the right lateral costophrenic angle, best seen on the frontal view. Unchanged appearance of the cardiomediastinal silhouette. No acute osseous findings. Thoracic spondylosis. Visualized upper abdomen is within normal limits. XR/XR chest 2V IMPRESSION: 1. New blunting of the right lateral costophrenic angle suggestive of small pleural effusion. 2. Stable focal opacification of the left apex with associated volume loss and cardiomediastinal retraction. Dictated By: Heaven Cali Signed By: Electronically signed by Heaven Cali 02/08/23 1800 - EXAMINATION: CT HEAD WITHOUT CONTRAST CLINICAL INFORMATION: Altered mental status. COMPARISON: CT head 03/06/2019. TECHNIQUE: Contiguous axial imaging was performed from the skull base to vertex without intravenous administration of contrast. This CT examination was performed using dose optimization techniques as appropriate, variously including the following: *Automated exposure control *Adjustment of mA and/or kV according to patient size (this includes techniques or standardized protocols for targeted exams where dose is matched to indication/reason for exam; i.e. extremities or head) *Use of iterative reconstruction technique DLP: 656 mGy-cm FINDINGS: Mild asymmetric hypoattenuation in the posteromedial left occipital lobe (2:21) is unchanged compared to 03/06/2019. There is no evidence of acute intracranial hemorrhage or edematous territorial infarction. A few foci of hypoattenuation in the periventricular and deep white matter are consistent with mild microangiopathy. Proportional prominence of the ventricles and sulcal spaces. No evidence for obstructive hydrocephalus. No abnormal mass effect or midline shift. No extra-axial fluid collections. No acute soft tissue or osseous abnormalities. The mastoid air cells and paranasal sinuses are clear. CT/CT head/brain wo IV con IMPRESSION: 1. No evidence of acute intracranial hemorrhage or edematous territorial infarction. 2. Mild asymmetric hypoattenuation in the posteromedial left occipital lobe is unchanged compared to 03/06/2019. 3. Background of mild chronic microangiopathy and generalized volume loss. Dictated By: Heaven Cali Signed By: Electronically signed by Heaven Cali 02/08/23 1806 - Vent. Rate: 077 BPM Atrial Rate: 077 BPM P-R Int: 148 ms QRS Dur: 084 ms QT Int: 376 ms P-R-T Axes: -16 078 063 degrees QTc Int: 425 ms Normal sinus rhythm Normal ECG When compared with ECG of 28-AUG-2022 15:44, No significant change was found DD/ 1631 Radiology Impression Discussion of test interpretation with radiology: I have reviewed the radiologist's reading. Independent Historian Clinical information obtained from an independent historian. History obtained from or confirmed by: Spouse (patient's provided additional history and confirmed the history provided by the patient. ) and EMS (EMS provided additional history and confirmed the history provided by the patient.) External Record Review External record reviewed: Inpatient record Discharge Plan Discharge Clinical Impression: Hallucination Patient Disposition: Home, Self-Care Instructions: Hallucinations (ED) Additional Instructions: Follow up with your primary care provider and a neurologist. Return to the emergency department immediately if your symptoms worsen or if you develop any dizziness, shortness of breath, difficulty breathing, chest pain, blurry vision, loss of vision, nausea, vomiting, abdominal pain, fever, chills, back pain, or any other complaints. Prescriptions: No Action (DME) blood-glucose meter [FreeStyle Lite Meter] Kit See Rx Instructions .Route Qty: 1 0RF Rx Instructions: As directed atorvastatin 80 mg tablet 80 mg PO BEDTIME Qty: 90 3RF omeprazole 20 mg capsule,delayed release(DR/EC) 20 mg PO DAILY@0630 4RF metformin 1,000 mg tablet 1,000 mg PO BID Qty: 180 1RF hydrochlorothiazide 25 mg tablet 25 mg PO QAM Qty: 90 1RF metoprolol tartrate 25 mg tablet 25 mg PO BID Qty: 180 1RF (DME) FreeStyle Lite Strips Strip See Rx Instructions .Route Qty: 100 5RF Rx Instructions: check fasting glucose BID ac isosorbide mononitrate 30 mg tablet extended release 24 hr 30 mg PO DAILY budesonide-formoterol [Symbicort] 160-4.5 mcg/actuation Hfa Aerosol Inhaler 2 puff INHALATION DAILY glipizide 5 mg tablet 5 mg PO BID calcium carbonate-vitamin D3 600 mg-10 mcg (400 unit) tablet 1 tab PO DAILY polyethylene glycol 3350 17 gram Powder In Packet 17 g PO DAILY PRN (Reason: Constipation) Qty: 30 0RF albuterol sulfate 90 mcg/actuation HFA aerosol inhaler 2 puff PO Q4H PRN (Reason: Shortness Of Breath Or Wheezing) escitalopram oxalate 20 mg tablet 20 mg PO DAILY Qty: 30 6RF lorazepam [Ativan] 1 mg tablet 0.5 mg PO BID PRN (Reason: anxiety) Qty: 20 0RF Rx Instructions: Patient may request partial fill Januvia 100 mg tablet 100 mg PO DAILY Qty: 30 5RF ezetimibe 10 mg tablet 10 mg PO DAILY Qty: 30 5RF (DME) Oxygen Home Use Kit See Rx Instructions .Route Rx Instructions: As directed Referrals: [facility] [place] Family Medicine [Provider Group] (Call to establish and follow up with a primary care provider. If you already have a primary care provider, please follow up with them.) [facility] [place] Primary Care, [place] [Provider Group] (Call to establish and follow up with a primary care provider. If you already have a primary care provider, please follow up with them.) [facility] [place] Primary CareVasyl [Provider Group] (Call to establish and follow up with a primary care provider. If you already have a primary care provider, please follow up with them.) [facility] [place] Neuro/Sleep [Provider Group] ( Call to establish and follow up with a neurologist. ) Print Language: Azeri
--- NOTE | 2023-02-08 16:27 | ECG_ITS ---
Test Reason : DYSPNEA Blood Pressure : / mmHG Vent. Rate : 077 BPM Atrial Rate : 077 BPM P-R Int : 148 ms QRS Dur : 084 ms QT Int : 376 ms P-R-T Axes : -16 078 063 degrees QTc Int : 425 ms Normal sinus rhythm Nonspecific ST abnormality Inferior leads Abnormal ECG When compared with ECG of 28-AUG-2022 15:44, No significant change was found Referred By: Carly Bustamante Electronically Signed By:CLIFTON ESPOSITO MD
[2023-02-08 17:05] LABS: MANUAL DIFF FLAG NO
[2023-02-08 17:07] LABS: VBG Base Excess 19.4 mmol/L; VBG HCO3 48 mmol/L (22-26); VBG pCO2 77 mmHg; VBG pO2 77 mmHg
[2023-02-08 17:08] LABS: Basophils Percent Auto 0.8 % (0-2); Eosinophils Absolute Auto 0.3 X10*3/uL (0.0-0.4); Eosinophils Percent Auto 5.5 % (0-4); Hematocrit 35.7 % (42.0-52.0); Hemoglobin 10.8 g/dl (14.0-18.0); Imm Gran Abs Auto 0.01 X10*3/uL (0.00-0.03); Imm Gran Pct Auto 0.2 % (0.0-0.4); Lymphocytes Absolute Auto 0.9 X10*3/uL (1.2-4.9); Lymphocytes Percent Auto 18.5 % (20-40); Mean Corpuscular HGB Conc 30.3 g/dl (31.0-36.0); Mean Corpuscular Hemoglobin 29.4 pg (27.0-33.0); Mean Corpuscular Volume 97.3 fL (80.0-98.0); Mean Platelet Volume 10.1 fL (9.4-12.4); Monocytes Absolute Auto 0.6 X10*3/uL (0.1-1.2); Monocytes Percent Auto 10.8 % (2-11); Neutrophils Absolute Auto 3.3 x10*3/uL (2.0-8.3); Neutrophils Percent Auto 64.2 % (45-73); Platelet Count 179 X10*3/uL (160-400); Red Blood Count 3.67 X10*6/uL (4.60-5.80); Red Cell Distribution Width 13.6 % (11.0-16.0); White Blood Count 5.1 X10*3/uL (4.8-10.8)
[2023-02-08 17:12] LABS: Ammonia 32 umol/L (13-55)
[2023-02-08 17:15] LABS: Appearance Urine Clear; Color Urine Yellow; Glucose Urine UA Negative (Negative); Leukocyte Esterase Urine Negative (Negative); Nitrite Urine Negative (Negative); Urine Blood Negative (Negative); Urine Ketones Negative (Negative); Urine Protein Negative (Neg-Trace)
[2023-02-08 17:23] LABS: Alanine Aminotransferase 12 U/L (0-40); Albumin Level 3.8 g/dL (3.5-5.0); Alkaline Phosphatase 83 U/L (39-117); Aspartate Amino Transferase 16 U/L (5-37); Bilirubin Total 0.4 mg/dL (0.0-1.0); Blood Urea Nitrogen 8 mg/dL (9-16); Calcium 8.8 mg/dL (8.4-10.2); Creatinine Clr Calc Pharmacy 140.5; Estimated Glomerular Filt Rate > 60; Glucose Random 112 mg/dL (60-115); Magnesium 1.9 mg/dL (1.6-2.6); Total Protein 6.6 g/dL (6.5-8.0)
[2023-02-08 17:24] LABS: Amphetamine Screen Urine Not Detected (Not Detect); Barbiturates, Urine Not Detected (Not Detect); Benzodiazepines Screen Urine Not Detected (Not Detect); Cannabinoid Screen Urine Not Detected (Not Detect); Cocaine Screen Urine Not Detected (Not Detect); Fentanyl, urine Not Detected (Not Detect); Opiate Screen Urine Not Detected (Not Detect); Phencyclidine Screen Urine Not Detected (Not Detect)
[2023-02-08 17:30] LABS: Troponin-I High Sensitivity < 2.7 ng/L (<3.5-35.0)
[2023-02-08 17:37] LABS: Anion Gap 13 (12-20); Carbon Dioxide 40 mmol/L (22-29); Chloride 92 mmol/L (96-108); Potassium 3.7 mmol/L (3.3-5.1); Sodium 141 mmol/L (135-145); Venous Blood Gas Refer to POC result
[2023-02-08 17:55] LABS: Influenza A PCR NEGATIVE (Negative); Influenza B PCR NEGATIVE (Negative); Resp Syncy Virus RNA Qual PCR NEGATIVE (Negative); SARS COV2 PCR INHOUSE NEGATIVE (Negative)
[2023-02-08 18:00] VITALS: PULSE 87; RESP 18
[2023-02-08 18:27] LABS: INTERNATIONAL NORM RATIO 0.9 (0.9-1.1); Prothrombin Time 11.2 SEC (11.1-13.3)
[2023-02-08 18:29] LABS: Partial Thromboplastin Time 31.9 SEC (26.0-36.4)
--- NOTE | 2023-02-08 18:45 | MHC.EDTECH ---
This Tech took over care of PT at 1900
[2023-02-08 18:57] VITALS: O2SAT 92
== END 2023-02-08 19:28 | disposition home or self-care (01) ==
PROVIDERS: Physician Assistant Medical; Emergency Provider Emergency Medicine
DX: J44.9 Chronic obstructive pulmonary disease, unspecified (principal); R06.02 Shortness of breath; R44.1 Visual hallucinations; R51.9 Headache, unspecified; I25.10 Atherosclerotic heart disease of native coronary artery without angina pectoris; Z99.81 Dependence on supplemental oxygen; Z79.899 Other long term (current) drug therapy; Z87.891 Personal history of nicotine dependence; Z20.822 Contact with and (suspected) exposure to COVID-19; Z20.828 Contact with and (suspected) exposure to other viral communicable diseases
CPT/HCPCS: 0241U; 36415; 70450; 71046; 80053; 80307; 81003; 82140; 82803; 83735; 84484; 85025; 85610; 85730; 93005; 99285

== ENCOUNTER 2023-02-18 17:57 | Inpatient (IN) | payer MEDICARE, SELFPAY ==
--- NOTE | ~2023-02-18 | XR_ITS ---
EXAMINATION: PORTABLE CHEST 1 VIEW CLINICAL INFORMATION: Hypoxic rule out pneumonia. COMPARISON: Prior studies including the most recent 02/08/2023 chest x-ray and 07/30/[address] TECHNIQUE: Portable frontal view of the chest was obtained. FINDINGS: Lungs well-expanded with chronic appearing reticular markings seen bilaterally. There is stable asymmetric left apical pleural capping with associated volume loss and retraction. There is blunting of the right costophrenic angle unchanged from the recent prior study. No superimposed infiltrate, effusion, edema, or pneumothorax. Degenerative changes in the spine and shoulders. XR/XR chest 1V IMPRESSION: Chronic appearing changes similar to the 02/08/2023 study. No definitive acute superimposed process when compared to the 02/08/2023 study.
--- NOTE | ~2023-02-18 | CT_ITS ---
EXAMINATION: CT HEAD WITHOUT CONTRAST CLINICAL INFORMATION: Change in mental status. Rule out bleed. COMPARISON: Previous head CT most recent February 2023 TECHNIQUE: Contiguous axial imaging was performed from the skull base to vertex without intravenous administration of contrast. This CT examination was performed using dose optimization techniques as appropriate, variously including the following: *Automated exposure control *Adjustment of mA and/or kV according to patient size (this includes techniques or standardized protocols for targeted exams where dose is matched to indication/reason for exam; i.e. extremities or head) *Use of iterative reconstruction technique DLP: 796 mGy-cm FINDINGS: There is no evidence of an extra-axial collection. There is no evidence of intra-axial or extra-axial hemorrhage. Ventricles and extra-axial CSF spaces are slightly prominent suggestive of mild generalized atrophy. There is mild nonspecific periventricular white matter disease. There is no mass, mass effect or infarct windows is normal in the skull fracture CT/CT head/brain wo IV con IMPRESSION: No acute intracranial findings.
--- NOTE | ~2023-02-18 | CT_ITS ---
EXAMINATION: CT ANGIOGRAM OF THE CHEST WITH AND WITHOUT CONTRAST (CT PULMONARY ANGIOGRAM FOR PE) CLINICAL INFORMATION: Reason for Exam Hypoxia, rule out PE, pneumonia COMPARISON: 07/30/2022. TECHNIQUE: Prior to contrast administration, noncontrast localization images were obtained. Subsequently, multidetector volumetric imaging was performed from the thoracic inlet to below the diaphragms following the administration of 65 mL Omnipaque 350 intravenous contrast. No contrast reaction reported Sagittal, coronal, and MIP oblique sagittal reformatted images were obtained on the CT workstation, uploaded to PACS, and reviewed. This CT examination was performed using dose optimization techniques as appropriate, variously including the following: *Automated exposure control *Adjustment of mA and/or kV according to patient size (this includes techniques or standardized protocols for targeted exams where dose is matched to indication/reason for exam; i.e. extremities or head) *Use of iterative reconstruction technique Total exam dose-length product 325 mGy-cm FINDINGS: QUALITY OF STUDY/CONTRAST BOLUS: Satisfactory. PULMONARY ARTERIES: No pulmonary emboli. THORACIC AORTA: No aneurysm. LUNG: There is a stable left upper lobe perihilar opacity and pleural fluid. There is minimal consolidation/atelectasis/scarring right middle lobe, lingular and dependent lung bases most prominent in the right middle lobe. There is also bilateral peripheral interstitial prominence. PLEURA: There is a small right pleural effusion. MEDIASTINUM: Normal heart size. No pericardial effusion. No hilar or mediastinal lymphadenopathy. No evidence of septal bowing or right heart strain. CORONARY ARTERY CALCIFICATION: Extensive. CHEST WALL/AXILLA: No axillary or internal mammary lymphadenopathy. OSSEOUS STRUCTURES: No acute or suspicious osseous abnormality. UPPER ABDOMEN: There is minimal biliary air. No reflux of contrast into the hepatic veins to suggest elevated right heart pressures. CT/CT angio chest PE protocol IMPRESSION: No evidence for pulmonary embolism. Stable left apical opacity and pleural fluid. Peripheral interstitial prominence suggests minimal edema. Right middle lobe, lingular and bibasilar opacities most likely atelectasis. This is most prominent in the right middle lobe. Early right middle lobe infiltrate considered less likely. VTE: Negative for pulmonary embolism.
[2023-02-18 18:04] VITALS: BP 114/64; PULSE 72; O2SAT 96
--- NOTE | 2023-02-18 18:07 | ECG_ITS ---
Test Reason : weakness Blood Pressure : / mmHG Vent. Rate : 079 BPM Atrial Rate : 079 BPM P-R Int : 156 ms QRS Dur : 082 ms QT Int : 364 ms P-R-T Axes : 060 081 083 degrees QTc Int : 417 ms Normal sinus rhythm Normal ECG When compared with ECG of 08-FEB-2023 16:31, No significant change was found Referred By: Generic ED Physician Electronically Signed By:CLIFTON ESPOSITO MD
[2023-02-18 18:18] VITALS: BP 115/69; PULSE 98; RESP 16; TEMP 36.8; O2SAT 91; BMI 30.7
--- NOTE | 2023-02-18 18:30 | ED_ITS ---
HPI - Neck Pain/Injury General Chief Complaint: Weakness Stated Complaint: abd pain [id number] Time Seen by Provider: 02/18/23 18:22 Source: patient Mode of arrival: ambulatory Limitations: no limitations History of Present Illness HPI Narrative: 73-year-old male history of coronary disease, anxiety, depression, COPD on 3 L of oxygen via nasal cannula continually, hypertension, dyslipidemia, diabetes mellitus, lung cancerwho presents emergency department for evaluation of twitching of his upper and lower extremities, confusion, change in his voice and increased confusion over the past 2 days.. I did talk to the patient's he states that over the past 2 days the patient has been more confused than usual. He has had spasm of his upper and lower extremities. The patient states that he has been wearing his oxygen continually. He denied fever, chills. He states he has had a nonproductive cough that is chronic. He denied chest pain. He states that he is always short of breath secondary to COPD. He denied nausea, vomiting or diarrhea. He denied frequency, urgency or dysuria. Related Data Home Medications Medication Instructions Recorded Confirmed albuterol sulfate 90 mcg/actuation 2 puff PO Q4H PRN Shortness Of 01/14/20 09/21/22 aerosol inhaler Breath Or Wheezing budesonide-formoterol HFA 160 2 puff inhalation DAILY 03/14/21 09/21/22 mcg-4.5 mcg/actuation aerosol inhaler (Symbicort) isosorbide mononitrate 30 mg 30 mg PO DAILY 03/14/21 09/21/22 tablet,extended release 24 hr calcium carbonate 600 mg-vitamin 1 tab PO DAILY 08/04/21 09/21/22 D3 10 mcg (400 unit) tablet Oxygen Home Use 06/14/22 09/21/22 glipizide 5 mg tablet 5 mg PO BID 09/21/22 09/21/22 Previous Rx's Medication Instructions Recorded blood-glucose meter (FreeStyle #1 ea 01/23/22 Lite Meter kit) atorvastatin 80 mg tablet 80 mg PO BEDTIME #90 tabs 02/05/22 polyethylene glycol 3350 17 gram 17 g PO DAILY PRN Constipation #30 08/07/22 oral powder packet ea escitalopram oxalate 20 mg tablet 20 mg PO DAILY #30 tabs 08/20/22 omeprazole 20 mg capsule,delayed 20 mg PO DAILY@0630 11/13/22 release metformin 1,000 mg tablet 1,000 mg PO BID #180 tabs 11/15/22 lorazepam 1 mg tablet (Ativan) 0.5 mg (1/2 x 1 mg) PO BID PRN 12/26/22 anxiety #20 tabs hydrochlorothiazide 25 mg tablet 25 mg PO QAM #90 tabs 12/27/22 metoprolol tartrate 25 mg tablet 25 mg PO BID #180 tabs 01/09/23 blood sugar diagnostic (FreeStyle #100 ea 01/10/23 Lite Strips) ezetimibe 10 mg tablet 10 mg PO DAILY #30 tabs 01/29/23 sitagliptin phosphate 100 mg 100 mg PO DAILY #30 tabs 01/29/23 tablet (Januvia) Allergies Allergy/AdvReac Type Severity Reaction Status Date / Time fluticasone furoate Allergy Intermediate Rash Verified 12/26/22 13:57 [From Trelegy Ellipta] vilanterol Allergy Intermediate Rash Verified 12/26/22 13:57 [From Trelegy Ellipta] umeclidinium Allergy Unknown Hives Verified 12/26/22 13:57 [Incruse Ellipta] furosemide [From Lasix] AdvReac Intermediate Hallucinati Verified 12/26/22 13:57 ons [facility] Past Medical History Medical History (Updated 02/18/23 @ 22:11 by Benja Gamez MD) Bilateral carotid artery disease CAD (coronary artery disease) Anxiety and depression Constipation Anemia Chronic respiratory failure with hypoxia and hypercapnia Radiation fibrosis of lung Acute on chronic respiratory failure with hypoxia and hypercapnia HTN (hypertension) Dyslipidemia History of pneumonia Bacteremia due to Enterococcus COPD, severe Diabetes mellitus with hyperglycemia, without long-term current use of insulin Urinary incontinence Asthma Lung cancer Skin cancer Surgical History Hx of heart artery stent History of esophagogastroduodenoscopy (EGD) Hx of colonoscopy Family History Family History Father Medical history non-contributory Mother Medical history non-contributory Unknown family medical history Lung collapse Brother No problems noted. Brother No problems noted. Son Substance use disorder Son No problems noted. Daughter No problems noted. Sister No problems noted. Sister No problems noted. Sister No problems noted. Sister No problems noted. Other HTN (hypertension) Social History Social History Household Members: Family Household Members Other:: grandson Housing: House Are you a primary rn acute care to a significant other at home: No Do you presently have visiting nurse or other home services: No Alcohol intake: never Patient Tobacco Use Status: Former Tobacco user e-Cigarette/Vaping Use: Never Used Advance Directives Date on File: 06/08/22 service: No Current occupational status: retired Cognitive needs: No Hearing needs: No Vision needs: No Physical Exam 2 Vital Signs: Vital Signs: Last Vital Signs Temp 98.3 F 02/18/23 18:18 Pulse 98 02/18/23 18:18 Resp 16 02/18/23 18:18 BP 115/69 02/18/23 18:18 Pulse Ox 91 L 02/18/23 18:18 O2 Del Method Nasal Cannula 02/18/23 18:18 Oxygen Flow Rate 2 02/18/23 18:18 BMI result Body Mass Index 30.7 Vital signs were unremarkable, patient's O2 saturation was 91% on 3 L via nasal cannula-this is baseline FiO2 Exam General: Awake, alert in no distress. Patient's voice does sound gravelly, he is able to answer questions without any difficulty, he does not appear to be confused Head: Normocephalic, atraumatic EENT: PERRL, Lids normal, sclera normal, conjunctiva normal, nose normal , ears normal, throat without erythema or exudates Neck: Supple, no adenopathy, no trachea midline or C-spine tenderness Lung: breath sounds symmetric, no wheezing, no rales , diffuse rhonchi Chest: symmetric movement, nontender Heart: regular rate and rhythm, normal S1, S2 no murmurs or rubs Abdomen: soft, obese, non-tender, nondistended, normal bowel sounds Back: no vertebral tenderness, no CVAT Extremities: no deformities, moves all extremities symmetrically Neuro: Awake, alert, oriented, patient has a gravelly voice, cranial nerves intact, moves all extremities symmetrically Psych: Pleasant, cooperative Medical Decision Making Medical Decision Making MDM Narrative: 73-year-old male history of coronary disease, anxiety, depression, COPD on 3 L of oxygen via nasal cannula continually, hypertension, dyslipidemia, diabetes mellitus, lung cancerwho presents emergency department for evaluation of twitching of his upper and lower extremities, confusion, change in his voice and increased confusion over the past 2 days. Vital signs were unremarkable except for an O2 saturation of 91% on 4 L via nasal cannula and was 86% on 3 L via nasal cannula which is his usual FiO2. Patient does have a gravelly sounding voice and on lung exam he had diffuse rhonchi. Otherwise exam was unremarkable. Following tests were ordered: CBC, CK, BMP, PT/INR, PTT, troponin, BNP, COVID- 19, RSV, influenza, urinalysis, blood cultures x2, lactic acid, VBG, XR one view and CT scan of the brain 21:28 My interpretation patient's laboratory evaluation is as follows: WBC was normal 5100. H&H revealed mild anemia 11.5 and 39.3. Coags were normal. Bicarb was elevated at 44-this is slightly above his baseline. Glucose elevated 206. CK normal. High sensitive troponin I detectable but not elevated at 3.2. COVID-19, RSV and influenza were negative. Rapid strep negative. Urinalysis was positive for glucose and protein, microscopic was negative for infection. My interpretation of the patient's EKG was unremarkable and chest x-ray COPD changes, concern for right lower lobe infiltrate-my interpretation is different than the radiologist's interpretation. Patient most likely has exacerbation of his COPD causing his decreased O2 saturation, increased confusion and muscle twitching. Patient was treated with Solu-Medrol 125 mg IV, albuterol nebulizer, ceftriaxone 1 g IV and Zithromax 500 mg IV for possible infectious etiology. 22:05 I did discuss the patient over tiger text with the covering hospitalist, Dr. Riddle. After this discussion, I ordered a CT pulmonary angiogram PE protocol to rule out pulmonary embolism and to further evaluate the patient for possible pneumonia not seen on the chest x-ray. The end of my shift, the patient's care was turned over to my colleague, Dr. Sarahi Ornelas. Differential Diagnosis Differential Diagnoses: The differential diagnosis associated with the presentation includes 22:02 Differential diagnosis includes was not limited to COPD exacerbation, pneumonia, urinary tract infection, stroke, cerebral bleed, electrolyte abnormalities, anemia Admission/Observation Consideration of admission/observation: Escalation of care including admission/observation considered Consult Healthcare Provider Management of the patient was discussed with: Hospitalist Lab Data [facility] Lab Attestation statement: I reviewed the patient's lab results. See MDM 02/18/23 19:13 02/18/23 19:13 Labs: Lab Results 02/18/23 02/18/23 02/18/23 Range/Units 19:12 19:13 19:17 WBC 5.1 (4.8-10.8) X10*3/uL RBC 4.03 L (4.60-5.80) X10*6/uL Hgb 11.5 L (14.0-18.0) g/dl Hct 39.3 L (42.0-52.0) % MCV 97.5 (80.0-98.0) fL MCH 28.5 (27.0-33.0) pg MCHC 29.3 L (31.0-36.0) g/dl RDW 13.7 (11.0-16.0) % Plt Count 167 (160-400) X10*3/uL MPV 9.9 (9.4-12.4) fL Immature Gran % (Auto) 0.2 (0.0-0.4) % Neut % (Auto) 74.1 H (45-73) % Lymph % (Auto) 11.5 L (20-40) % [place] % (Auto) 9.3 (2-11) % Eos % (Auto) 4.3 H (0-4) % Baso % (Auto) 0.6 (0-2) % Lymph # (Auto) 0.6 L (1.2-4.9) X10*3/uL [place] # (Auto) 0.5 (0.1-1.2) X10*3/uL Eos # (Auto) 0.2 (0.0-0.4) X10*3/uL Baso # (Auto) 0.0 (0.0-0.2) X10*3/uL Abs Immat Gran (auto) 0.01 (0.00-0.03) X10*3/uL Absolute Neuts (auto) 3.8 (2.0-8.3) x10*3/uL Absolute Nucleated RBC 0.000 (0.0-0.012) X10*3/uL Nucleated RBC % (auto) 0.0 (0.0-0.2) /100WBC PT 11.1 (11.1-13.3) SEC INR 0.9 (0.9-1.1) APTT 34.0 (26.0-36.4) SEC Sodium 141 (135-145) mmol/L Potassium 4.4 (3.3-5.1) mmol/L Chloride 89 L (96-108) mmol/L Carbon Dioxide 44 H* (22-29) mmol/L Anion Gap 12 (12-20) BUN 10 (9-16) mg/dL Creatinine 0.75 (0.5-1.4) mg/dL Estim Creat Clear Calc 90.2 Estimated GFR > 60 POC Glucose 206 H (60-115) mg/dL Random Glucose 217 H (60-115) mg/dL Calcium 9.0 (8.4-10.2) mg/dL Total Creatine Kinase 63 (38-174) U/L Troponin I High Sens 3.2 (<3.5-35.0) ng/L Influenza Type A (PCR) NEGATIVE (Negative) Influenza Type B (PCR) NEGATIVE (Negative) RSV RNA Qual (PCR) NEGATIVE (Negative) SARS-CoV-2 RNA (RT-PCR) NEGATIVE (Negative) S. pyogenes GrpA MATHEW Negative (Negative) Independent Interpretation I performed an independent interpretation of an: EKG and Plain X-Ray Radiology Impression Discussion of test interpretation with radiology: I have reviewed the radiologist's reading. Radiologist Impression: XR chest 1V IMPRESSION: Chronic appearing changes similar to the 02/08/2023 study. No definitive acute superimposed process when compared to the 02/08/2023 study. Dictated By: Eduardo Cabrera MD Independent Historian Clinical information obtained from an independent historian. History obtained from or confirmed by: Spouse Critical Care Time Critical Care Time Total Critical Care Time: 35 Attestation: Critical Care: The patient was critically ill with a high probability of imminent or life threatening deterioration. I spent greater than 30 minutes of discontinuous time evaluating the patient,delivering critical care at the bedside, discussing and evaluating pertinent data with consultants. Critical care time does not include time spent performing separately billable procedures or teaching. Total time spent performing critical care was 35 minutes. Discharge Plan Discharge Clinical Impression: Acute exacerbation of chronic obstructive pulmonary disease, Hypoxic, Confusion Pneumonia Qualifiers: Pneumonia type: due to unspecified organism Laterality: right Lung location: l ower lobe of lung Qualified Code(s): J18.9 - Pneumonia, unspecified organism Prescriptions: No Action (DME) blood-glucose meter [FreeStyle Lite Meter] Kit See Rx Instructions .Route Qty: 1 0RF Rx Instructions: As directed atorvastatin 80 mg tablet 80 mg PO BEDTIME Qty: 90 3RF omeprazole 20 mg capsule,delayed release(DR/EC) 20 mg PO DAILY@0630 4RF metformin 1,000 mg tablet 1,000 mg PO BID Qty: 180 1RF hydrochlorothiazide 25 mg tablet 25 mg PO QAM Qty: 90 1RF metoprolol tartrate 25 mg tablet 25 mg PO BID Qty: 180 1RF (DME) FreeStyle Lite Strips Strip See Rx Instructions .Route Qty: 100 5RF Rx Instructions: check fasting glucose BID ac isosorbide mononitrate 30 mg tablet extended release 24 hr 30 mg PO DAILY budesonide-formoterol [Symbicort] 160-4.5 mcg/actuation Hfa Aerosol Inhaler 2 puff INHALATION DAILY glipizide 5 mg tablet 5 mg PO BID calcium carbonate-vitamin D3 600 mg-10 mcg (400 unit) tablet 1 tab PO DAILY polyethylene glycol 3350 17 gram Powder In Packet 17 g PO DAILY PRN (Reason: Constipation) Qty: 30 0RF albuterol sulfate 90 mcg/actuation HFA aerosol inhaler 2 puff PO Q4H PRN (Reason: Shortness Of Breath Or Wheezing) escitalopram oxalate 20 mg tablet 20 mg PO DAILY Qty: 30 6RF lorazepam [Ativan] 1 mg tablet 0.5 mg PO BID PRN (Reason: anxiety) Qty: 20 0RF Rx Instructions: Patient may request partial fill Januvia 100 mg tablet 100 mg PO DAILY Qty: 30 5RF ezetimibe 10 mg tablet 10 mg PO DAILY Qty: 30 5RF (DME) Oxygen Home Use Kit See Rx Instructions .Route Rx Instructions: As directed
[2023-02-18 19:20] LABS: MANUAL DIFF FLAG NO
[2023-02-18 19:22] LABS: Glucose, Whole Blood 206 mg/dL (60-115)
[2023-02-18 19:22] LABS: Basophils Percent Auto 0.6 % (0-2); Eosinophils Absolute Auto 0.2 X10*3/uL (0.0-0.4); Eosinophils Percent Auto 4.3 % (0-4); Hematocrit 39.3 % (42.0-52.0); Hemoglobin 11.5 g/dl (14.0-18.0); Imm Gran Abs Auto 0.01 X10*3/uL (0.00-0.03); Imm Gran Pct Auto 0.2 % (0.0-0.4); Lymphocytes Absolute Auto 0.6 X10*3/uL (1.2-4.9); Lymphocytes Percent Auto 11.5 % (20-40); Mean Corpuscular HGB Conc 29.3 g/dl (31.0-36.0); Mean Corpuscular Hemoglobin 28.5 pg (27.0-33.0); Mean Corpuscular Volume 97.5 fL (80.0-98.0); Mean Platelet Volume 9.9 fL (9.4-12.4); Monocytes Absolute Auto 0.5 X10*3/uL (0.1-1.2); Monocytes Percent Auto 9.3 % (2-11); Neutrophils Absolute Auto 3.8 x10*3/uL (2.0-8.3); Neutrophils Percent Auto 74.1 % (45-73); Platelet Count 167 X10*3/uL (160-400); Red Blood Count 4.03 X10*6/uL (4.60-5.80); Red Cell Distribution Width 13.7 % (11.0-16.0); White Blood Count 5.1 X10*3/uL (4.8-10.8)
--- NOTE | 2023-02-18 19:23 | PC.NURSE ---
this rn assumed care of pt @ 1900. 20 g IV placed in R AC. pt tolerated well. bloodwork obtained and sent down to lab. issue scanning blood barcode this rn called and made lab aware of issue swabs obtained and sent down to lab no new orders at this time
[2023-02-18 19:31] LABS: INTERNATIONAL NORM RATIO 0.9 (0.9-1.1); Prothrombin Time 11.1 SEC (11.1-13.3)
[2023-02-18 19:39] LABS: IDNOW Serial# 08D9AD1C
[2023-02-18 19:39] LABS: Anion Gap 12 (12-20); Blood Urea Nitrogen 10 mg/dL (9-16); Carbon Dioxide 44 mmol/L (22-29); Chloride 89 mmol/L (96-108); Creatinine Clr Calc Pharmacy 90.2; Estimated Glomerular Filt Rate > 60; Glucose Random 217 mg/dL (60-115); Potassium 4.4 mmol/L (3.3-5.1); Sodium 141 mmol/L (135-145)
[2023-02-18 19:40] LABS: Strep A Nucleic Acid Negative (Negative)
[2023-02-18 19:44] LABS: Troponin-I High Sensitivity 3.2 ng/L (<3.5-35.0)
[2023-02-18 20:09] LABS: Influenza A PCR NEGATIVE (Negative); Influenza B PCR NEGATIVE (Negative); Resp Syncy Virus RNA Qual PCR NEGATIVE (Negative); SARS COV2 PCR INHOUSE NEGATIVE (Negative)
[2023-02-18 21:27] VITALS: BP 127/59; PULSE 90; RESP 16; O2SAT 93
[2023-02-18 21:28] LABS: Appearance Urine Clear; Color Urine Yellow; Glucose Urine UA 500 mg/dL (Negative); Leukocyte Esterase Urine Negative (Negative); Nitrite Urine Negative (Negative); Specific Gravity - Urine 1.025 (1.005-1.025); UMIC TRIGGER UACC YES; Urine Blood Negative (Negative); Urine Ketones Trace mg/dL (Negative); Urine Protein 30 (1+) mg/dL (Neg-Trace)
[2023-02-18 21:45] LABS: Bacteria Urine None Seen (None Seen); Calcium Oxalate Crystals Urine Present; Hyaline Casts Urine 0-2 /LPF (0-2); Squamous Epithelial Cell Urine 0-2 /HPF (0-2); WBC Urine 0-5 /HPF (0-5)
[2023-02-18 21:59] LABS: TSH reflex Free T4 0.82 uIU/mL (0.32-4.0)
--- NOTE | 2023-02-18 22:07 | PC.NURSE ---
This RN, provider and tech attempted to walk pt and assess 02 status, pt stating in the the 80's on 3 liter of oxygen. pt placed back on bed side monitor. Noble Carballo notified.
[2023-02-18 22:11] LABS: VBG HCO3 51 mmol/L (22-26); VBG pCO2 103 mmHg; VBG pO2 73 mmHg
[2023-02-18] MEDS: cefTRIAXone sodium 1 GM in 0.9 % Sodium Chloride 50 ML IV (22:11)
[2023-02-18] MEDS: methylPREDNISolone Sod Succ 125 MG/2 ML VIAL IVPUSH (22:11)
[2023-02-18] MEDS: Albuterol Sulfate 2.5 MG, Albuterol/Iprat 2.5/0.5MG 3 ML 3 ML INHALE (22:11)
[2023-02-18 22:13] LABS: Venous Blood Gas Refer to POC result
[2023-02-18 22:17] LABS: Lactic Acid 1.1 mmol/L (0.5-2.0)
[2023-02-18 22:20] VITALS: PULSE 86; RESP 18; O2SAT 95
[2023-02-18 22:33] LABS: B Type Natriuretic Peptide 34 pg/mL (<100)
--- NOTE | 2023-02-18 22:44 | PHA.MEDREC ---
Pharmacy Consult ? Medication Reconciliation Pharmacy has completed the medication reconciliation. Spoke with patient . Patient not on ezetimibe or januvia. Zeinab Brown, PharmD
[2023-02-18] MEDS: iohexoL 350 MG/ML 100 ML INFUS..BTL 65 ML IV (23:18)
[2023-02-18] MEDS: Azithromycin 500 MG in 0.9 % Sodium Chloride 250 ML 125 MG IV (23:22)
[2023-02-18 23:49] VITALS: BP 119/62; PULSE 99; RESP 18; TEMP 37; O2SAT 93
[2023-02-19] VITALS (8 sets, daily range): BP systolic 102–127; BP diastolic 54–68; PULSE 79–92; RESP 15–22; TEMP 36.5–36.9; O2SAT 89–95
--- NOTE | 2023-02-19 00:04 | MHC.EDTECH ---
This tech took over care of patient at 2300,hourly rounds,vitals and belonging list completed, Patient has 62.00 [place] in sweatpants pocket. Patient stood with this tech and urinated 300ML in urinal. Call buck within reach
[2023-02-19 01:14] LABS: VBG HCO3 50 mmol/L (22-26); VBG pCO2 82 mmHg; VBG pH 7.39 (7.32-7.43); VBG pO2 66 mmHg
[2023-02-19 01:28] LABS: Venous Blood Gas Refer to POC result
--- NOTE | 2023-02-19 02:00 | P.HPHOSP_ITS ---
History of Present Illness Date of Service: 02/19/23 Chief Complaint: Dyspnea This is a 73-year-old male with pertinent history of chronic hypoxemic respiratory failure due to COPD, jbn-gqzsdbr-tvataobwp diabetes mellitus, essential hypertension, mixed hyperlipidemia, mood disorder who was sent to the emergency department for evaluation of dyspnea. Patient states he started having symptoms 2 days prior to presentation. Patient reports he started having dyspnea on his home baseline oxygen. The dyspnea was progressive over the last 2 days. It is associated with productive cough with yellowish sputum production. Also has been having wheezing. The noticed intermittent mild confusion. No fever or chills. No sick contacts. Denies chest discomfort, palpitations, abdominal pain, changes in urinary or bowel habits. In the emergency department, patient requiring 4 L supplemental oxygen and imaging concerning for right-sided pneumonia Review of Systems 2 Constitutional: Constitutional: Reports no additional constitutional complaints Cardiovascular: Cardiovascular: Reports dyspnea on exertion Respiratory: Respiratory: Reports cough, Reports dyspnea on exertion and Reports wheezing Gastrointestinal: Gastrointestinal: Reports no additional gastrointestinal complaints Genitourinary: Genitourinary: Reports no additional male genitourinary complaints Allergic/Immunologic: Allergic/Immunologic: Reports wheezing [facility] Medical History (Updated 02/18/23 @ 22:11 by Benja Gamez MD) Bilateral carotid artery disease CAD (coronary artery disease) Anxiety and depression Constipation Anemia Chronic respiratory failure with hypoxia and hypercapnia Radiation fibrosis of lung Acute on chronic respiratory failure with hypoxia and hypercapnia HTN (hypertension) Dyslipidemia History of pneumonia Bacteremia due to Enterococcus COPD, severe Diabetes mellitus with hyperglycemia, without long-term current use of insulin Urinary incontinence Asthma Lung cancer Skin cancer Family History Father Medical history non-contributory Mother Medical history non-contributory Unknown family medical history Lung collapse Brother No problems noted. Brother No problems noted. Son Substance use disorder Son No problems noted. Daughter No problems noted. Sister No problems noted. Sister No problems noted. Sister No problems noted. Sister No problems noted. Other HTN (hypertension) Surgical History Hx of heart artery stent History of esophagogastroduodenoscopy (EGD) Hx of colonoscopy Social History Household Members: Family Household Members Other:: grandson Housing: House Are you a primary patient care director to a significant other at home: No Do you presently have visiting nurse or other home services: No Alcohol intake: never Patient Tobacco Use Status: Former Tobacco user Smoked in Last 30 Days: No e-Cigarette/Vaping Use: Never Used Use of substances other than those prescribed or required for medical reasons: No Advance Directives: No Advance Directives Information Provided: No Advance Directives Date on File: 06/08/22 service: No Current occupational status: retired Cognitive needs: No Hearing needs: No Vision needs: No Meds Allergies Allergy/AdvReac Type Severity Reaction Status Date / Time fluticasone furoate Allergy Intermediate Rash Verified 12/26/22 13:57 [From Trelegy Ellipta] vilanterol Allergy Intermediate Rash Verified 12/26/22 13:57 [From Trelegy Ellipta] umeclidinium Allergy Unknown Hives Verified 12/26/22 13:57 [Incruse Ellipta] furosemide [From Lasix] AdvReac Intermediate Hallucinati Verified 12/26/22 13:57 ons Home Medications Medication Instructions Recorded Confirmed Last Taken Type albuterol sulfate 90 mcg/actuation 2 puff PO Q4H PRN Shortness Of 01/14/20 02/18/23 07/29/22 18:00 History aerosol inhaler Breath Or Wheezing budesonide-formoterol HFA 160 2 puff inhalation DAILY 03/14/21 02/18/23 07/29/22 08:00 History mcg-4.5 mcg/actuation aerosol inhaler (Symbicort) isosorbide mononitrate 30 mg 30 mg PO DAILY 03/14/21 02/18/23 07/29/22 08:00 History tablet,extended release 24 hr calcium carbonate 600 mg-vitamin 1 tab PO DAILY 08/04/21 02/18/23 07/28/22 08:00 History D3 10 mcg (400 unit) tablet Oxygen Home Use 06/14/22 09/21/22 Unknown History glipizide 5 mg tablet 5 mg PO BID 09/21/22 02/18/23 Unknown History azithromycin 500 mg tablet 500 mg PO MOWEFR 02/18/23 02/18/23 Unknown History Physical Exam 2 Vital Signs and Narrative: Vital Signs: Last Vital Signs Temp 98.6 F 02/18/23 23:49 Pulse 99 02/18/23 23:49 Resp 18 02/18/23 23:49 BP 119/62 02/18/23 23:49 Pulse Ox 93 02/18/23 23:49 O2 Del Method Nasal Cannula 02/18/23 23:49 O2 Flow Rate 4 02/18/23 23:49 Oxygen Flow Rate 2 02/18/23 18:18 BMI result Body Mass Index 30.7 Elderly male lying in bed in mild distress on supplemental oxygen Neck supple, no JVD Regular rate and rhythm, S1-S2 heard Bilateral wheezing appreciated Abdomen soft nontender, no guarding, no rigidity Patient is awake, alert and oriented to self, place, disoriented to time and person ; no focal motor deficit Psych: Normal mood No pedal edema Results Labs 02/18/23 19:13 02/18/23 19:13 Labs: Laboratory Results - last 24 hr 02/18/23 02/18/23 02/18/23 19:12 19:13 19:17 MCV 97.5 MCH 28.5 MCHC 29.3 L RDW 13.7 Plt Count 167 MPV 9.9 Immature Gran % (Auto) 0.2 Neut % (Auto) 74.1 H Lymph % (Auto) 11.5 L [place] % (Auto) 9.3 Eos % (Auto) 4.3 H Baso % (Auto) 0.6 Lymph # (Auto) 0.6 L [place] # (Auto) 0.5 Eos # (Auto) 0.2 Baso # (Auto) 0.0 Abs Immat Gran (auto) 0.01 Absolute Neuts (auto) 3.8 Absolute Nucleated RBC 0.000 Nucleated RBC % (auto) 0.0 PT 11.1 INR 0.9 APTT 34.0 VBG pH VBG pCO2 VBG pO2 VBG HCO3 VBG O2 Saturation VBG Base Excess Anion Gap 12 Estim Creat Clear Calc 90.2 Estimated GFR > 60 POC Glucose 206 H Random Glucose 217 H Lactic Acid Calcium 9.0 Total Creatine Kinase 63 B-Natriuretic Peptide TSH 0.82 Urine Color Urine Appearance Urine pH Ur Specific [place] Urine Protein Urine Glucose (UA) Urine Ketones Urine Blood Urine Nitrite Ur Leukocyte Esterase Urine RBC Urine WBC Ur Squamous Epith Cells Calcium Oxalate Crystal Urine Bacteria Hyaline Casts Influenza Type A (PCR) NEGATIVE Influenza Type B (PCR) NEGATIVE RSV RNA Qual (PCR) NEGATIVE SARS-CoV-2 RNA (RT-PCR) NEGATIVE S. pyogenes GrpA MATHEW Negative 02/18/23 02/18/23 02/18/23 21:21 21:58 22:05 MCV MCH MCHC RDW Plt Count MPV Immature Gran % (Auto) Neut % (Auto) Lymph % (Auto) [place] % (Auto) Eos % (Auto) Baso % (Auto) Lymph # (Auto) [place] # (Auto) Eos # (Auto) Baso # (Auto) Abs Immat Gran (auto) Absolute Neuts (auto) Absolute Nucleated RBC Nucleated RBC % (auto) PT INR APTT VBG pH 7.30 L VBG pCO2 103 VBG pO2 73 VBG HCO3 51 H VBG O2 Saturation 96.0 VBG Base Excess 19.0 Anion Gap Estim Creat Clear Calc Estimated GFR POC Glucose Random Glucose Lactic Acid 1.1 Calcium Total Creatine Kinase B-Natriuretic Peptide 34 TSH Urine Color Yellow Urine Appearance Clear Urine pH 6.0 Ur Specific [place] 1.025 Urine Protein 30 (1+) H Urine Glucose (UA) 500 H Urine Ketones Trace Urine Blood Negative Urine Nitrite Negative Ur Leukocyte Esterase Negative Urine RBC 3-5 H Urine WBC 0-5 Ur Squamous Epith Cells 0-2 Calcium Oxalate Crystal Present Urine Bacteria None Seen Hyaline Casts 0-2 Influenza Type A (PCR) Influenza Type B (PCR) RSV RNA Qual (PCR) SARS-CoV-2 RNA (RT-PCR) S. pyogenes GrpA MATHEW 02/19/23 01:07 MCV MCH MCHC RDW Plt Count MPV Immature Gran % (Auto) Neut % (Auto) Lymph % (Auto) [place] % (Auto) Eos % (Auto) Baso % (Auto) Lymph # (Auto) [place] # (Auto) Eos # (Auto) Baso # (Auto) Abs Immat Gran (auto) Absolute Neuts (auto) Absolute Nucleated RBC Nucleated RBC % (auto) PT INR APTT VBG pH 7.39 VBG pCO2 82 VBG pO2 66 VBG HCO3 50 H VBG O2 Saturation 96.0 VBG Base Excess 21.0 Anion Gap Estim Creat Clear Calc Estimated GFR POC Glucose Random Glucose Lactic Acid Calcium Total Creatine Kinase B-Natriuretic Peptide TSH Urine Color Urine Appearance Urine pH Ur Specific [place] Urine Protein Urine Glucose (UA) Urine Ketones Urine Blood Urine Nitrite Ur Leukocyte Esterase Urine RBC Urine WBC Ur Squamous Epith Cells Calcium Oxalate Crystal Urine Bacteria Hyaline Casts Influenza Type A (PCR) Influenza Type B (PCR) RSV RNA Qual (PCR) SARS-CoV-2 RNA (RT-PCR) S. pyogenes GrpA MATHEW Imaging Radiologist's Impressions: Impressions Chest X-Ray 02/18/23 21:27 IMPRESSION: Chronic appearing changes similar to the 02/08/2023 study. No definitive acute superimposed process when compared to the 02/08/[address] 02/18/23 21:58 IMPRESSION: No acute intracranial findings. Chest CTA 02/18/23 23:25 IMPRESSION: No evidence for pulmonary embolism. Stable left apical opacity and pleural fluid. Peripheral interstitial prominence suggests minimal edema. Right middle lobe, lingular and bibasilar opacities most likely atelectasis. This is most prominent in the right middle lobe. Early right middle lobe infiltrate considered less likely. VTE: Negative for pulmonary embolism. Assessment and Plan (1) Hypoxic: Status: Acute (2) Pneumonia: Qualifiers: Laterality: right Lung location: lower lobe of lung Pneumonia type: d ue to unspecified organism Qualified Code(s): J18.9 - Pneumonia, unspecified organism Status: Acute (3) Acute exacerbation of chronic obstructive pulmonary disease: Status: Acute Plan This is a 73-year-old male with pertinent history of chronic hypoxemic respiratory failure due to COPD, ihi-kogyjsu-vtdeilwab diabetes mellitus, essential hypertension, mixed hyperlipidemia, mood disorder who was sent to the emergency department for evaluation of dyspnea. #. Acute on chronic hypoxemic respiratory failure due to right-sided pneumonia leading to acute exacerbation of COPD: Will admit patient with supplemental oxygen. Initiating empiric IV antibiotics. Also initiating IV steroids. Scheduled and p.r.n. DuoNebs. Monitor oxygen saturation and wean as tolerated, maintain oxygen saturation greater than 88%. Obtained sputum culture #. Acute metabolic encephalopathy in the setting of above #. Rth-amuyawb-myxwqokec diabetes mellitus with hyperglycemia: Initiating Accu-Cheks with sliding scale insulin #. Essential hypertension: Continue home antihypertensives #. Mixed hyperlipidemia: On high-intensity statin #. Mood disorder: Continue home mood stabilizers Med rec pending DVT prophylaxis: Lovenox Admit as inpatient and will require two night minimum hospital stay for supplemental oxygen, IV antibiotics, IV steroids (as above), which is not possible in a lesser acute setting. Quality Stroke Does the patient have a stroke diagnosis?: No VTE Prior VTE?: No VTE Risk Level:: Medical - moderate - high VTE Device Contraindication: Treatment Not Indicated VTE Drug Contraindication: N/A - Med Ordered
--- NOTE | 2023-02-19 02:50 | PC.NURSE ---
this rn and director of sports medicine placed pt to recliner as pt states would prefer to be in recliner as he uses one at home. pt continues to ask for coffee
--- NOTE | 2023-02-19 03:50 | PC.NURSE ---
pt refused lovenox injection. pt educated on importance of lovenox while in the hospital. pt states don't make me vishnu deleon aware
[2023-02-19] MEDS: Albuterol/Iprat 2.5/0.5MG 3 ML AMPUL.NEB INHALE ×3 (04:59→21:08)
[2023-02-19 06:05] LABS: MANUAL DIFF FLAG NO
[2023-02-19 06:09] LABS: Basophils Percent Auto 0.2 % (0-2); Hematocrit 36.8 % (42.0-52.0); Hemoglobin 11.1 g/dl (14.0-18.0); Imm Gran Abs Auto 0.04 X10*3/uL (0.00-0.03); Imm Gran Pct Auto 0.9 % (0.0-0.4); Lymphocytes Absolute Auto 0.4 X10*3/uL (1.2-4.9); Lymphocytes Percent Auto 8.2 % (20-40); Mean Corpuscular HGB Conc 30.2 g/dl (31.0-36.0); Mean Corpuscular Volume 96.1 fL (80.0-98.0); Mean Platelet Volume 10.4 fL (9.4-12.4); Monocytes Absolute Auto 0.1 X10*3/uL (0.1-1.2); Monocytes Percent Auto 1.3 % (2-11); Neutrophils Absolute Auto 4.2 x10*3/uL (2.0-8.3); Neutrophils Percent Auto 89.4 % (45-73); Platelet Count 182 X10*3/uL (160-400); Red Blood Count 3.83 X10*6/uL (4.60-5.80); Red Cell Distribution Width 13.5 % (11.0-16.0); White Blood Count 4.7 X10*3/uL (4.8-10.8)
[2023-02-19 06:31] LABS: Anion Gap 15 (12-20); Blood Urea Nitrogen 9 mg/dL (9-16); Calcium 9.4 mg/dL (8.4-10.2); Carbon Dioxide 43 mmol/L (22-29); Chloride 88 mmol/L (96-108); Estimated Glomerular Filt Rate > 60; Glucose Random 212 mg/dL (60-115); Potassium 4.8 mmol/L (3.3-5.1); Sodium 141 mmol/L (135-145)
[2023-02-19] MEDS: 0.9 % Sodium Chloride Flush 3 ML SYRINGE IVFLUSH ×3 (07:05→20:55)
[2023-02-19 07:09] LABS: Glucose, Whole Blood 196 mg/dL (60-115)
[2023-02-19] MEDS: Insulin Lispro 100 UNIT/ML 3 ML VIAL SUBCUT ×3 (07:11→20:55)
--- NOTE | 2023-02-19 07:14 | PC.NURSE ---
Alert and responsive, oob to recliner, denies pain or discomfort. Ate well for breakfast, aware plan is to be admitted upstairs
[2023-02-19] MEDS: Escitalopram Oxalate 20 MG TABLET PO (08:11)
[2023-02-19] MEDS: Isosorbide Mononitrate 30 MG TAB.ER.24H PO (08:11)
[2023-02-19] MEDS: Calcium + Vitamin D 250 MG TABLET PO (08:11)
[2023-02-19] MEDS: Omeprazole 20 MG CAPSULE.DR PO (08:11)
[2023-02-19] MEDS: Metoprolol Tartrate 25 MG TABLET PO ×2 (08:11→20:55)
[2023-02-19 08:31] LABS: Procalcitonin 0.03 ng/mL
--- NOTE | 2023-02-19 09:37 | PC.NURSE ---
Patient alert with confusion, requesting to go home. Patient re-directed for short periods of time. Called kenisha who stated patient has been more confused for the last 2 days but has been confused with hallucinations for the last few months. aware that patient is requesting to leave and states that she will speak to him on the phone.
[2023-02-19] MEDS: methylPREDNISolone Sod Succ 40 MG/ML VIAL IVPUSH ×2 (10:27→20:55)
--- NOTE | 2023-02-19 10:29 | PC.NURSE ---
Oxygen titrated down to 3 liters- sating 96%
--- NOTE | 2023-02-19 10:32 | PM.EVENT ---
Event Note Date of Service: 02/19/23 Event Note: Day hospitalist update S: coughing dyspnea improved O: Temp Pulse Resp BP Pulse Ox O2 Del Method O2 Flow Rate 97.7 F 80 20 102/57 L 95 Nasal Cannula 3 02/19/23 07:21 02/19/23 10:28 02/19/23 10:28 02/19/23 07:21 02/19/23 10:28 02/19/23 10:28 02/19/23 10:28 Gen: in no acute distress HEENT: sclera anicteric, moist mucus membranes Neck: supple Lungs: diminished Heart: regular rate and rhythm, no murmurs Abd: soft, non-tender, non-distended Ext: no edema Skin: warm/well-perfused Neuro: alert and oriented x3, no focal findings Psych: appropriate affect Labs: WBC 4.7, VBG 7.39/82/66, PCT 0.03, flu/RSV/Covid-19 negative A/P: d1 73yo M with chronic hypoxic RF [2-3L] due to COPD, DM2, HTN, HLD presenting with dyspnea, admitted for COPD exacerbation + PNA acute-chronic hypoxic RF due to COPD exac with PNA - wean O2 as tolerated, goal SaO2 90-92% - follow blood + sputum cultures - ceftriaxone + azithromycin d1 - methylprednisolone d1 - standing/prn nebs, ICS/LABA controller meds metabolic encephalopathy - resolved HLD - statin DM2 - carlos-dose lispro, hold OHGs HTN - continue metoprolol, + Imdur mood disorder - continue escitalopram + lorazepam VTE ppx - LMWH dispo - TBD In my clinical judgment, the patient requires continued hospitalization for the following reasons: hypoxia, IV ABX Time Spent With Patient Time: Total time managing care of this patient today ____ minutes.
[2023-02-19 10:59] LABS: Glucose, Whole Blood 334 mg/dL (60-115)
[2023-02-19 13:00] LABS: Glucose, Whole Blood 231 mg/dL (60-115)
--- NOTE | 2023-02-19 13:22 | PC.NURSE ---
Multiple attempts made to administer sub q insulin. Patient continues to decline stating he doesn't need it
--- NOTE | 2023-02-19 15:00 | MHC.CM.PN ---
Met with patient in regards to discharge planning. Patient lives with his , ambulates independently and receives oxygen through [facility]. PCP verified. Copy of HCP verified to be on file. Patient has not received any Covid vaccines. No services anticipated to be needed at d/c. Patient's Maxine will transport patient home when medically stable. Continue to monitor for d/c needs.
--- NOTE | 2023-02-19 16:54 | PC.NURSE ---
Report called to overflow, patient aware of transfer
--- NOTE | 2023-02-19 18:13 | MHC.EDTECH ---
THIS pct just assumed care of Pt vitals taken ,blood sugar check ,KATIE Mcallister aware of result of 242 nPt sittin up in chair having his dinner .
[2023-02-19 18:23] LABS: Glucose, Whole Blood 242 mg/dL (60-115)
--- NOTE | 2023-02-19 18:41 | MHC.EDTECH ---
Patient was assisted unto bedside commode ,had small bowel movement .
--- NOTE | 2023-02-19 19:22 | PC.NURSE ---
rr even/unlabored. pt on 3L O2 via NC. pt alert with some confusion, keeps getting up on own, asking for wheelchair to use bathroom for privacy. pt redirected and provided with bedside commode, curtain fixed/closed for privacy. pt within eye sight of nurse. plan to move pt to bed 8 for sitter to also watch this pt. report given to KATIE Osorio.
[2023-02-19 20:32] LABS: Glucose, Whole Blood 235 mg/dL (60-115)
[2023-02-19] MEDS: cefTRIAXone sodium 1 GM in 0.9 % Sodium Chloride 50 ML IV (20:55)
[2023-02-19] MEDS: Atorvastatin Calcium 80 MG TABLET PO (20:55)
[2023-02-19] MEDS: Budesonide 0.5 MG/2 ML AMPUL.NEB INHALE (21:08)
[2023-02-19] MEDS: Azithromycin 500 MG in 0.9 % Sodium Chloride 250 ML 125 MG IV (21:32)
[2023-02-20] VITALS (7 sets, daily range): BP systolic 102–127; BP diastolic 58–70; PULSE 70–90; RESP 18; TEMP 36.1–36.8; O2SAT 91–98
[2023-02-20] MEDS: Omeprazole 20 MG CAPSULE.DR PO (05:51)
[2023-02-20 05:59] LABS: VBG Base Excess 23.5 mmol/L; VBG HCO3 51 mmol/L (22-26); VBG pCO2 73 mmHg; VBG pH 7.45 (7.32-7.43); VBG pO2 108 mmHg
[2023-02-20 06:03] LABS: Venous Blood Gas Refer to POC result
[2023-02-20 06:18] LABS: Anion Gap 9 (12-20); Blood Urea Nitrogen 14 mg/dL (9-16); Calcium 9.2 mg/dL (8.4-10.2); Carbon Dioxide 45 mmol/L (22-29); Chloride 91 mmol/L (96-108); Estimated Glomerular Filt Rate > 60; Glucose Random 200 mg/dL (60-115); Potassium 4.1 mmol/L (3.3-5.1); Sodium 141 mmol/L (135-145)
--- NOTE | 2023-02-20 06:22 | PC.NURSE ---
Lab called with critical carbon dioxide 45 notified.
[2023-02-20 06:31] LABS: Hemoglobin 10.3 g/dl (14.0-18.0); Mean Corpuscular HGB Conc 30.3 g/dl (31.0-36.0); Mean Corpuscular Volume 95.8 fL (80.0-98.0); Mean Platelet Volume 10.4 fL (9.4-12.4); Platelet Count 185 X10*3/uL (160-400); Red Blood Count 3.55 X10*6/uL (4.60-5.80); Red Cell Distribution Width 13.4 % (11.0-16.0); White Blood Count 6.2 X10*3/uL (4.8-10.8)
[2023-02-20 07:38] LABS: Immature Retic Fraction 14.2 % (2.3-13.4); Retic HGB Equivalent 30.9 pg (30.0-35.0); Reticulocyte Percent 1.8 % (0.5-1.8); Reticulocytes Absolute 0.063 X10*6/uL (0.026-0.095)
[2023-02-20] MEDS: Albuterol/Iprat 2.5/0.5MG 3 ML AMPUL.NEB INHALE ×4 (07:39→19:07)
[2023-02-20] MEDS: Budesonide 0.5 MG/2 ML AMPUL.NEB INHALE ×2 (07:39→19:07)
[2023-02-20 07:57] LABS: Iron 40 mcg/dL (45-160); Lactate Dehydrogenase 187 U/L (118-273); Percent Iron Saturation 17 % (15-50); Total Iron Binding Capacity 232 mcg/dL (228-428); Unsaturated Iron Binding 192 ug/dL
[2023-02-20 08:02] LABS: Glucose, Whole Blood 171 mg/dL (60-115)
[2023-02-20 08:10] LABS: Ferritin 49 ng/mL (20-250)
[2023-02-20] MEDS: Insulin Lispro 100 UNIT/ML 3 ML VIAL SUBCUT ×4 (08:13→20:52)
[2023-02-20] MEDS: Escitalopram Oxalate 20 MG TABLET PO (08:14)
[2023-02-20] MEDS: Calcium + Vitamin D 250 MG TABLET PO (08:14)
[2023-02-20] MEDS: acetaZOLAMIDE 250 MG TABLET PO ×2 (08:14→20:51)
[2023-02-20] MEDS: Metoprolol Tartrate 25 MG TABLET PO ×2 (08:14→20:51)
[2023-02-20] MEDS: Isosorbide Mononitrate 30 MG TAB.ER.24H PO (08:14)
[2023-02-20] MEDS: 0.9 % Sodium Chloride Flush 3 ML SYRINGE IVFLUSH ×3 (08:16→19:49)
--- NOTE | 2023-02-20 09:19 | MHC.CLN ---
NUTRITION CHANGED DIET TO DIABETIC 2000 KCAL DUE TO DX DM AND ELEVATED BLOOD GLUCOSE.
[2023-02-20] MEDS: methylPREDNISolone Sod Succ 40 MG/ML VIAL IVPUSH ×2 (09:44→22:14)
--- NOTE | 2023-02-20 10:26 | HO.PM.IMPN ---
Subjective Subjective Date of Service: 02/20/23 Interval History: cough/dyspnea improved; still wheezing; no fever Review of Systems Review of Systems: Yes all other systems are reviewed and are negative Physical Exam Vital Signs: Vital Signs: Last Vital Signs Temp 98.0 F 02/20/23 08:00 Pulse 78 02/20/23 08:00 Resp 18 02/20/23 08:00 BP 124/58 L 02/20/23 08:00 Pulse Ox 91 L 02/20/23 08:00 O2 Del Method Nasal Cannula 02/20/23 08:00 O2 Flow Rate 2 02/20/23 08:00 Oxygen Flow Rate 2 02/18/23 18:18 BMI result Body Mass Index 30.7 Gen: in no acute distress HEENT: sclera anicteric, moist mucus membranes Neck: supple Lungs: diminished with tight expiratory wheezing bilaterally Heart: regular rate and rhythm, no murmurs Abd: soft, non-tender, non-distended Ext: no edema Skin: warm/well-perfused Neuro: alert and oriented x3, no focal findings Psych: appropriate affect Objective Data Active Medications Acetaminophen (Acetaminophen 325 Mg Tablet) 650 mg PO Q6H PRN PRN Reason: Pain, Mild (Pain Scale 1-3) Acetazolamide (Acetazolamide 250 Mg Tablet) 250 mg PO BID [facility] Last Admin: 02/20/23 08:14 Dose: 250 mg Documented By: MAYA Albuterol/Ipratropium (Albuterol/Iprat 2.5/0.5mg 3 Ml Ampul.Neb) 3 ml INHALE RQ4H WHILE AWAKE [facility] Last Admin: 02/20/23 07:39 Dose: 3 ml Documented By: EDUAR Albuterol/Ipratropium (Albuterol/Iprat 2.5/0.5mg 3 Ml Ampul.Neb) 3 ml INHALE Q4H PRN PRN Reason: Wheezing Last Admin: 02/19/23 04:59 Dose: 3 ml Documented By: ROQUE Atorvastatin Calcium (Atorvastatin Calcium 80 Mg Tablet) 80 mg PO BEDTIME [facility] Last Admin: 02/19/23 20:55 Dose: 80 mg Documented By: EFRAÍN Budesonide (Budesonide 0.5 Mg/2 Ml Ampul.Neb) 0.5 mg INHALE RBID [facility] Last Admin: 02/20/23 07:39 Dose: 0.5 mg Documented By: EDUAR Calcium Carbonate/Cholecalciferol (Calcium + Vitamin D 250 Mg Tablet) 250 mg PO DAILY [facility] Last Admin: 02/20/23 08:14 Dose: 250 mg Documented By: MAYA Dextrose (Dextrose 50 % 25 Gm/50 Ml Syringe) 25 gm IVPUSH Q15M PRN; Protocol PRN Reason: per Hypoglycemia Standing Ord. Enoxaparin Sodium (Enoxaparin Sodium 40 Mg/0.4 Ml Syringe) 40 mg SUBCUT Q24H [facility] Last Admin: 02/20/23 01:58 Dose: Not Given Documented By: EFRAÍN Non-Admin Reason: Patient Refused Escitalopram Oxalate (Escitalopram Oxalate 20 Mg Tablet) 20 mg PO DAILY [facility] Last Admin: 02/20/23 08:14 Dose: 20 mg Documented By: MAYA Glucose (Glucose Gel 15 Gm Gel..Gram.) 15 gm PO Q15M PRN; Protocol PRN Reason: per Hypoglycemia Standing Ord. Ceftriaxone Sodium 1 gm/ (Sodium Chloride) 50 mls @ 100 mls/hr IV Q24H [facility] Last Infusion: 02/19/23 21:27 Dose: Infused Documented By: EFRAÍN Azithromycin 500 mg/ Sodium (Chloride) 250 mls @ 125 mls/hr IV Q24H [facility] Last Infusion: 02/19/23 23:46 Dose: Infused Documented By: EFRAÍN Insulin Human Lispro (Insulin Lispro 100 Unit/Ml 3 Ml Vial) 0 unit SUBCUT QIDACHS [facility]; Protocol Last Admin: 02/20/23 08:13 Dose: 2 unit Documented By: MAYA Isosorbide Mononitrate (Isosorbide Mononitrate 30 Mg Tab.Er.24h) 30 mg PO DAILY [facility]; Protocol Last Admin: 02/20/23 08:14 Dose: 30 mg Documented By: MAYA Lorazepam (Lorazepam 0.5 Mg Tablet) 0.5 mg PO BID PRN PRN Reason: anxiety Melatonin (Melatonin 3 Mg Tablet) 6 mg PO BEDTIME PRN PRN Reason: Insomnia Methylprednisolone Sodium Succinate (Methylprednisolone Sod Succ 40 Mg/Ml Vial) 40 mg IVPUSH Q12H [facility] Last Admin: 02/20/23 09:44 Dose: 40 mg Documented By: MAYA Metoprolol Tartrate (Metoprolol Tartrate 25 Mg Tablet) 25 mg PO BID [facility]; Protocol Last Admin: 02/20/23 08:14 Dose: 25 mg Documented By: MAYA Omeprazole (Omeprazole 20 Mg Capsule.) 20 mg PO DAILY@0630 [facility] Last Admin: 02/20/23 05:51 Dose: 20 mg Documented By: EFRAÍN Ondansetron HCl (Ondansetron Hcl 4 Mg/2 Ml Vial) 4 mg IVPUSH Q8H PRN PRN Reason: Nausea and Vomiting Polyethylene Glycol (Polyethylene Glycol 3350 17 Gm Powd.Pack) 17 gm PO DAILY PRN PRN Reason: Constipation Salmeterol Xinafoate (Salmeterol Xinafoate 50 Mcg Blst.W.Dev) 1 puff INHALE RBID [facility] Last Admin: 02/20/23 08:13 Dose: Not Given Documented By: EDUAR Non-Admin Reason: Med Not Available Sodium Chloride (0.9 % Sodium Chloride Flush 3 Ml Syringe) 3 ml IVFLUSH QSHIFT [facility] Last Admin: 02/20/23 08:16 Dose: 3 ml Documented By: MAYA Labs 02/20/23 05:50 02/20/23 05:50 Labs: Laboratory Results - last 24 hr 02/19/23 02/19/23 02/19/23 10:55 12:55 18:11 MCV MCH MCHC RDW Plt Count MPV Absolute Nucleated RBC Nucleated RBC % (auto) Absolute Retic Percent Retic Immature Retic Fraction Retic Hgb Equivalent VBG pH VBG pCO2 VBG pO2 VBG HCO3 VBG O2 Saturation VBG Base Excess Anion Gap Estim Creat Clear Calc Estimated GFR POC Glucose 334 H 231 H 242 H Random Glucose Calcium Iron TIBC % Saturation Unsat Iron Binding Ferritin Lactate Dehydrogenase 02/19/23 02/20/23 02/20/23 20:28 05:50 05:53 MCV 95.8 MCH 29.0 MCHC 30.3 L RDW 13.4 Plt Count 185 MPV 10.4 Absolute Nucleated RBC 0.000 Nucleated RBC % (auto) 0.0 Absolute Retic 0.063 Percent Retic 1.8 Immature Retic Fraction 14.2 H Retic Hgb Equivalent 30.9 VBG pH 7.45 H VBG pCO2 73 VBG pO2 108 VBG HCO3 51 H VBG O2 Saturation 100.0 VBG Base Excess 23.5 Anion Gap 9 L Estim Creat Clear Calc 89.0 Estimated GFR > 60 POC Glucose 235 H Random Glucose 200 H Calcium 9.2 Iron 40 L TIBC 232 % Saturation 17 Unsat Iron Binding 192 Ferritin 49 Lactate Dehydrogenase 187 02/20/23 07:37 MCV MCH MCHC RDW Plt Count MPV Absolute Nucleated RBC Nucleated RBC % (auto) Absolute Retic Percent Retic Immature Retic Fraction Retic Hgb Equivalent VBG pH VBG pCO2 VBG pO2 VBG HCO3 VBG O2 Saturation VBG Base Excess Anion Gap Estim Creat Clear Calc Estimated GFR POC Glucose 171 H Random Glucose Calcium Iron TIBC % Saturation Unsat Iron Binding Ferritin Lactate Dehydrogenase Microbiology Microbiology Results: Microbiology 02/20/23 00:30 Gram Stain - Final Sputum - Expectorated Sputum Culture - Final 02/18/23 22:00 Blood Culture - Preliminary Blood - Venous No growth after 24 hours. 02/18/23 21:58 Blood Culture - Preliminary Blood - Venous No growth after 24 hours. Assessment and Plan (1) Acute exacerbation of chronic obstructive pulmonary disease: Status: Acute Assessment and Plan: d2 73yo M with chronic hypoxic RF [2-3L] due to COPD, DM2, HTN, HLD presenting with dyspnea, admitted for COPD exacerbation + PNA acute-chronic hypoxic RF due to COPD exac with PNA - weaned O2 to home dose, goal SaO2 90-92% - follow blood cultures, sputum culture with OP caryn - ceftriaxone + azithromycin d2 - methylprednisolone d2, taper when improved - standing/prn nebs, ICS/LABA controller meds - will give a few doses of Diamox for hypercarbia; recheck BMP + VBG in AM metabolic encephalopathy due to hypoxia - resolved HLD - statin DM2 - carlos-dose lispro, hold OHGs HTN - continue metoprolol, + Imdur mood disorder - continue escitalopram + lorazepam VTE ppx - LMWH dispo - possibly home with VNA in next 1-2d In my clinical judgment, the patient requires continued inpatient hospitalization for the following reasons: IV ABX/steroids Total time managing care of this patient today: 35 minutes. Quality Stroke Does the patient have a stroke diagnosis?: No VTE Prior VTE?: No VTE Risk Level:: Medical - moderate - high VTE Device Contraindication: Treatment Not Indicated VTE Drug Contraindication: N/A - Med Ordered
[2023-02-20 11:41] LABS: Glucose, Whole Blood 220 mg/dL (60-115)
[2023-02-20 16:18] LABS: Glucose, Whole Blood 253 mg/dL (60-115)
[2023-02-20 20:41] LABS: Glucose, Whole Blood 254 mg/dL (60-115)
[2023-02-20] MEDS: Atorvastatin Calcium 80 MG TABLET PO (20:51)
[2023-02-20] MEDS: LORazepam 0.5 MG TABLET PO (20:51)
[2023-02-20] MEDS: cefTRIAXone sodium 1 GM in 0.9 % Sodium Chloride 50 ML IV (22:15)
[2023-02-20] MEDS: Azithromycin 500 MG in 0.9 % Sodium Chloride 250 ML 125 MG IV (22:52)
[2023-02-21] VITALS (8 sets, daily range): BP systolic 106–114; BP diastolic 53–62; PULSE 65–82; RESP 16–18; TEMP 36.1–36.6; O2SAT 93–98
[2023-02-21] MEDS: Omeprazole 20 MG CAPSULE.DR PO (05:44)
[2023-02-21 06:06] LABS: Venous Blood Gas Refer to POC result
[2023-02-21 06:07] LABS: VBG Base Excess 10.6 mmol/L; VBG HCO3 39 mmol/L (22-26); VBG pCO2 70 mmHg; VBG pH 7.35 (7.32-7.43); VBG pO2 35 mmHg
[2023-02-21 06:15] LABS: Hematocrit 38.6 % (42.0-52.0); Mean Corpuscular HGB Conc 31.1 g/dl (31.0-36.0); Mean Corpuscular Hemoglobin 30.4 pg (27.0-33.0); Mean Corpuscular Volume 97.7 fL (80.0-98.0); Mean Platelet Volume 10.6 fL (9.4-12.4); Platelet Count 236 X10*3/uL (160-400); Red Blood Count 3.95 X10*6/uL (4.60-5.80); Red Cell Distribution Width 13.5 % (11.0-16.0); White Blood Count 6.1 X10*3/uL (4.8-10.8)
[2023-02-21 06:28] LABS: Anion Gap 14 (12-20); Blood Urea Nitrogen 18 mg/dL (9-16); Calcium 9.6 mg/dL (8.4-10.2); Carbon Dioxide 35 mmol/L (22-29); Chloride 95 mmol/L (96-108); Creatinine Clr Calc Pharmacy 74.3; Estimated Glomerular Filt Rate > 60; Glucose Random 231 mg/dL (60-115); Potassium 4.6 mmol/L (3.3-5.1); Sodium 139 mmol/L (135-145)
[2023-02-21 06:58] LABS: Folate 6.9 ng/mL (> or = 4.0); Vitamin B12 355 pg/mL (200-900)
[2023-02-21 07:25] LABS: Glucose, Whole Blood 209 mg/dL (60-115)
[2023-02-21] MEDS: Budesonide 0.5 MG/2 ML AMPUL.NEB INHALE ×2 (07:55→20:35)
[2023-02-21] MEDS: Salmeterol Xinafoate 50 MCG BLST.W.DEV 1 PUFF INHALE ×2 (07:55→20:35)
[2023-02-21] MEDS: Albuterol/Iprat 2.5/0.5MG 3 ML AMPUL.NEB INHALE ×3 (07:55→20:35)
[2023-02-21] MEDS: Insulin Lispro 100 UNIT/ML 3 ML VIAL SUBCUT ×4 (09:00→20:32)
--- NOTE | 2023-02-21 10:18 | P.PNIM_ITS ---
Subjective Subjective Date of Service: 02/21/23 Interval History: breathing better minimal cough no fever per daughter [in person] and son [via phone], intermittent confusion Review of Systems Review of Systems: Yes all other systems are reviewed and are negative Physical Exam 2 Vital Signs: Vital Signs: Last Vital Signs Temp 97 F 02/21/23 07:39 Pulse 70 02/21/23 09:23 Resp 16 02/21/23 07:57 BP 109/53 L 02/21/23 07:39 Pulse Ox 93 02/21/23 09:23 O2 Del Method Nasal Cannula 02/21/23 07:39 O2 Flow Rate 2 02/21/23 07:39 Oxygen Flow Rate 2 02/18/23 18:18 BMI result Body Mass Index 30.7 Gen: in no acute distress HEENT: sclera anicteric, moist mucus membranes Neck: supple Lungs: diminished, scattered expiratory wheezing Heart: regular rate and rhythm, no murmurs Abd: soft, non-tender, non-distended Ext: no edema Skin: warm/well-perfused Neuro: alert and oriented x3, no focal findings Psych: appropriate affect Objective Data Active Medications Acetaminophen (Acetaminophen 325 Mg Tablet) 650 mg PO Q6H PRN PRN Reason: Pain, Mild (Pain Scale 1-3) Albuterol/Ipratropium (Albuterol/Iprat 2.5/0.5mg 3 Ml Ampul.Neb) 3 ml INHALE RQ4H WHILE AWAKE [facility] Last Admin: 02/21/23 07:55 Dose: 3 ml Documented By: ELENA Albuterol/Ipratropium (Albuterol/Iprat 2.5/0.5mg 3 Ml Ampul.Neb) 3 ml INHALE Q4H PRN PRN Reason: Wheezing Last Admin: 02/19/23 04:59 Dose: 3 ml Documented By: ROQUE Atorvastatin Calcium (Atorvastatin Calcium 80 Mg Tablet) 80 mg PO BEDTIME [facility] Last Admin: 02/20/23 20:51 Dose: 80 mg Documented By: KAREN Budesonide (Budesonide 0.5 Mg/2 Ml Ampul.Neb) 0.5 mg INHALE RBID [facility] Last Admin: 02/21/23 07:55 Dose: 0.5 mg Documented By: ELENA Calcium Carbonate/Cholecalciferol (Calcium + Vitamin D 250 Mg Tablet) 250 mg PO DAILY [facility] Last Admin: 02/20/23 08:14 Dose: 250 mg Documented By: MAYA Dextrose (Dextrose 50 % 25 Gm/50 Ml Syringe) 25 gm IVPUSH Q15M PRN; Protocol PRN Reason: per Hypoglycemia Standing Ord. Enoxaparin Sodium (Enoxaparin Sodium 40 Mg/0.4 Ml Syringe) 40 mg SUBCUT Q24H [facility] Last Admin: 02/21/23 01:37 Dose: Not Given Documented By: KAREN Non-Admin Reason: Patient Refused Escitalopram Oxalate (Escitalopram Oxalate 20 Mg Tablet) 20 mg PO DAILY [facility] Last Admin: 02/20/23 08:14 Dose: 20 mg Documented By: MAYA Glucose (Glucose Gel 15 Gm Gel..Gram.) 15 gm PO Q15M PRN; Protocol PRN Reason: per Hypoglycemia Standing Ord. Ceftriaxone Sodium 1 gm/ (Sodium Chloride) 50 mls @ 100 mls/hr IV Q24H [facility] Last Infusion: 02/20/23 22:52 Dose: Infused Documented By: KAREN Azithromycin 500 mg/ Sodium (Chloride) 250 mls @ 125 mls/hr IV Q24H [facility] Last Infusion: 02/21/23 01:09 Dose: Infused Documented By: KAREN Insulin Human Lispro (Insulin Lispro 100 Unit/Ml 3 Ml Vial) 0 unit SUBCUT QIDACHS [facility]; Protocol Last Admin: 02/21/23 09:00 Dose: 4 unit Documented By: DURAN Isosorbide Mononitrate (Isosorbide Mononitrate 30 Mg Tab.Er.24h) 30 mg PO DAILY [facility]; Protocol Last Admin: 02/20/23 08:14 Dose: 30 mg Documented By: MAYA Lorazepam (Lorazepam 0.5 Mg Tablet) 0.5 mg PO BID PRN PRN Reason: anxiety Last Admin: 02/20/23 20:51 Dose: 0.5 mg Documented By: KAREN Melatonin (Melatonin 3 Mg Tablet) 6 mg PO BEDTIME PRN PRN Reason: Insomnia Methylprednisolone Sodium Succinate (Methylprednisolone Sod Succ 40 Mg/Ml Vial) 40 mg IVPUSH Q12H [facility] Last Admin: 02/20/23 22:14 Dose: 40 mg Documented By: KAREN Metoprolol Tartrate (Metoprolol Tartrate 25 Mg Tablet) 25 mg PO BID [facility]; Protocol Last Admin: 02/20/23 20:51 Dose: 25 mg Documented By: KAREN Omeprazole (Omeprazole 20 Mg Capsule.Dr) 20 mg PO DAILY@0630 [facility] Last Admin: 02/21/23 05:44 Dose: 20 mg Documented By: KAREN Ondansetron HCl (Ondansetron Hcl 4 Mg/2 Ml Vial) 4 mg IVPUSH Q8H PRN PRN Reason: Nausea and Vomiting Polyethylene Glycol (Polyethylene Glycol 3350 17 Gm Powd.Pack) 17 gm PO DAILY PRN PRN Reason: Constipation Salmeterol Xinafoate (Salmeterol Xinafoate 50 Mcg Blst.W.Dev) 1 puff INHALE RBID [facility] Last Admin: 02/21/23 07:55 Dose: 1 puff Documented By: ELENA Sodium Chloride (0.9 % Sodium Chloride Flush 3 Ml Syringe) 3 ml IVFLUSH QSHIFT [facility] Last Admin: 02/21/23 09:26 Dose: Not Given Documented By: SUNNY Non-Admin Reason: Previously Administered Labs 02/21/23 05:57 02/21/23 05:57 Labs: Laboratory Results - last 24 hr 02/20/23 02/20/23 02/20/23 11:30 16:14 20:37 MCV MCH MCHC RDW Plt Count MPV Absolute Nucleated RBC Nucleated RBC % (auto) VBG pH VBG pCO2 VBG pO2 VBG HCO3 VBG O2 Saturation VBG Base Excess Anion Gap Estim Creat Clear Calc Estimated GFR POC Glucose 220 H 253 H 254 H Random Glucose Calcium Vitamin B12 Folate 02/21/23 02/21/23 02/21/23 05:57 06:01 07:14 MCV 97.7 MCH 30.4 MCHC 31.1 RDW 13.5 Plt Count 236 D MPV 10.6 Absolute Nucleated RBC 0.000 Nucleated RBC % (auto) 0.0 VBG pH 7.35 VBG pCO2 70 VBG pO2 35 VBG HCO3 39 H VBG O2 Saturation 59.0 VBG Base Excess 10.6 Anion Gap 14 Estim Creat Clear Calc 74.3 Estimated GFR > 60 POC Glucose 209 H Random Glucose 231 H Calcium 9.6 Vitamin B12 355 Folate 6.9 Microbiology Microbiology Results: Microbiology 02/18/23 22:00 Blood Culture - Preliminary Blood - Venous No growth after 48 hours. 02/18/23 21:58 Blood Culture - Preliminary Blood - Venous No growth after 48 hours. 02/20/23 00:30 Gram Stain - Final Sputum - Expectorated Sputum Culture - Final Assessment and Plan (1) Acute exacerbation of chronic obstructive pulmonary disease: Status: Acute Assessment and Plan: d3 73yo M with chronic hypoxic RF [2-3L] due to COPD, DM2, HTN, HLD presenting with dyspnea, admitted for COPD exacerbation + PNA acute-chronic hypoxic RF due to COPD exac with PNA - weaned O2 to home dose, goal SaO2 90-92% - blood cultures negative, sputum culture with OP caryn - ceftriaxone + azithromycin d3 - methylprednisolone d3, taper - standing/prn nebs, ICS/LABA controller meds - gave 2 doses of Diamox for hypercarbia; recheck BMP + VBG in AM - Pulm consult and outpt f/u metabolic encephalopathy due to hypoxia + hypercarbia - resolved HLD - statin DM2 - carlos-dose lispro, hold OHGs HTN - continue metoprolol, + Imdur mood disorder - continue escitalopram + lorazepam VTE ppx - LMWH dispo - likely home tomorrow In my clinical judgment, the patient requires continued inpatient hospitalization for the following reasons: IV ABX/steroids Total time managing care of this patient today: 35 minutes. Quality Stroke Does the patient have a stroke diagnosis?: No VTE Prior VTE?: No VTE Risk Level:: Medical - moderate - high VTE Device Contraindication: Treatment Not Indicated VTE Drug Contraindication: N/A - Med Ordered
[2023-02-21] MEDS: Isosorbide Mononitrate 30 MG TAB.ER.24H PO (10:26)
[2023-02-21] MEDS: Calcium + Vitamin D 250 MG TABLET PO (10:26)
[2023-02-21] MEDS: Escitalopram Oxalate 20 MG TABLET PO (10:26)
[2023-02-21] MEDS: Metoprolol Tartrate 25 MG TABLET PO ×2 (10:26→20:32)
[2023-02-21 11:35] LABS: Glucose, Whole Blood 303 mg/dL (60-115)
--- NOTE | 2023-02-21 12:59 | PM.CNPUL ---
History of Present Illness History of Present Illness Consult date: 02/21/23 Reason for consult: dyspnea, cough and hypoxemia Chief complaint: Dyspnea Narrative: THIS 73 YEARS OLD GENTLEMAN HAS BEEN ADMITTED WITH THE A INCREASED COUGH AND SHORTNESS OF BREATH WITH GENERALIZED WEAKNESS. FOR ABOUT 2 DAYS. HE NORMALLY USES OXYGEN 2 L/MINUTE AND HE HAD TO INCREASE HIS O2 . 2 5 IS 4 L/MINUTE DENIED FEVER OR CHILLS AND ALSO DENIED ANY CHEST PAIN. HE HAD MODERATE COUGH BUT NOT BRINGING UP MUCH PHLEGM. HE IS BEING TREATED FOR AN ACUTE EXACERBATION OF COPD. IS GRADUALLY IMPROVING. CHEST X-RAY WAS GROSSLY ABNORMAL WHICH WILL BE DESCRIBED BELOW. DURING THE NIGHT AND EARLY MORNINGS THE HE HAS BEEN NOTED TO BE SOMEWHAT CONFUSED, VENOUS BLOOD GASES HAVE SHOWN SIGNIFICANT HYPERCAPNIA, BUT WITH A PATTERN OF CHRONIC COMPENSATED RESPIRATORY FAILURE. THIS GENTLEMAN IS KNOWN TO HAVE HYPERCAPNIA BEFORE, BUT HE HAS NEVER BEEN ON ANY NONINVASIVE VENTILATORY SUPPORT. HE DOES GET ADMITTED QUITE FREQUENTLY WITH ACUTE EXACERBATIONS. HE IS BEING FOLLOWED BY MAINTENANCE INSPECTOR DR. SANTANA OUTPATIENT. PATIENT IS ON MAINTENANCE REGIMEN OF SYMBICORT, AZITHROMYCIN 500 MG 3 TIMES A WEEK AND ALBUTEROL 2 PUFFS Q 4-6 HOURS P.R.N.. AT THE TIME OF MY EXAMINATION, HE IS SITTING UP ON THE BEDSIDE ALERT. AND ORIENTATED AND TALKING VERY CLEARLY HIS DAUGHTER WHO WAS ALSO IN THE ROOM, TELLS ME THAT IN THE MORNING HE WAS NOTED TO BE SOMEWHAT CONFUSED AND HIS. CONFUSION HAS DEFINITELY CLEARED UP IN A Review of Systems Review of Systems: Yes all other systems are reviewed and are negative PMFSH Past Medical History Medical History (Updated 02/21/23 @ 13:17 by Rosmery Esqueda MD) Respiratory failure with hypoxia and hypercapnia Bilateral carotid artery disease CAD (coronary artery disease) Anxiety and depression Constipation Anemia Chronic respiratory failure with hypoxia and hypercapnia Radiation fibrosis of lung Acute on chronic respiratory failure with hypoxia and hypercapnia HTN (hypertension) Dyslipidemia History of pneumonia Bacteremia due to Enterococcus COPD, severe Diabetes mellitus with hyperglycemia, without long-term current use of insulin Urinary incontinence Asthma Lung cancer Skin cancer Family History Family History Father Medical history non-contributory Mother Medical history non-contributory Unknown family medical history Lung collapse Brother No problems noted. Brother No problems noted. Son Substance use disorder Son No problems noted. Daughter No problems noted. Sister No problems noted. Sister No problems noted. Sister No problems noted. Sister No problems noted. Other HTN (hypertension) Surgical History Surgical History Hx of heart artery stent History of esophagogastroduodenoscopy (EGD) Hx of colonoscopy Social History Social History Household Members: Spouse Household Members Other:: grandson Housing: Apartment Are you a primary rn progressive care to a significant other at home: No Do you presently have visiting nurse or other home services: No Alcohol intake: never Patient Tobacco Use Status: Former Tobacco user Quit Date: 2002 Tobacco use type: Cigarette e-Cigarette/Vaping Use: Never Used Advance Directives Date on File: 06/08/22 service: No Current occupational status: retired Cognitive needs: No Hearing needs: No Vision needs: No Meds Allergies Allergy/AdvReac Type Severity Reaction Status Date / Time fluticasone furoate Allergy Intermediate Rash Verified 12/26/22 13:57 [From Trelegy Ellipta] vilanterol Allergy Intermediate Rash Verified 12/26/22 13:57 [From Trelegy Ellipta] umeclidinium Allergy Unknown Hives Verified 12/26/22 13:57 [Incruse Ellipta] furosemide [From Lasix] AdvReac Intermediate Hallucinati Verified 12/26/22 13:57 ons Active Medications: Current Medications Acetaminophen (Acetaminophen 325 Mg Tablet) 650 mg PO Q6H PRN PRN Reason: Pain, Mild (Pain Scale 1-3) Albuterol/Ipratropium (Albuterol/Iprat 2.5/0.5mg 3 Ml Ampul.Neb) 3 ml INHALE RQ4H WHILE AWAKE [facility] Last Admin: 02/21/23 11:11 Dose: Not Given Albuterol/Ipratropium (Albuterol/Iprat 2.5/0.5mg 3 Ml Ampul.Neb) 3 ml INHALE Q4H PRN PRN Reason: Wheezing Last Admin: 02/19/23 04:59 Dose: 3 ml Atorvastatin Calcium (Atorvastatin Calcium 80 Mg Tablet) 80 mg PO BEDTIME [facility] Last Admin: 02/20/23 20:51 Dose: 80 mg Budesonide (Budesonide 0.5 Mg/2 Ml Ampul.Neb) 0.5 mg INHALE RBID [facility] Last Admin: 02/21/23 07:55 Dose: 0.5 mg Calcium Carbonate/Cholecalciferol (Calcium + Vitamin D 250 Mg Tablet) 250 mg PO DAILY [facility] Last Admin: 02/21/23 10:26 Dose: 250 mg Dextrose (Dextrose 50 % 25 Gm/50 Ml Syringe) 25 gm IVPUSH Q15M PRN; Protocol PRN Reason: per Hypoglycemia Standing Ord. Enoxaparin Sodium (Enoxaparin Sodium 40 Mg/0.4 Ml Syringe) 40 mg SUBCUT Q24H [facility] Last Admin: 02/21/23 01:37 Dose: Not Given Escitalopram Oxalate (Escitalopram Oxalate 20 Mg Tablet) 20 mg PO DAILY [facility] Last Admin: 02/21/23 10:26 Dose: 20 mg Glucose (Glucose Gel 15 Gm Gel..Gram.) 15 gm PO Q15M PRN; Protocol PRN Reason: per Hypoglycemia Standing Ord. Ceftriaxone Sodium 1 gm/ (Sodium Chloride) 50 mls @ 100 mls/hr IV Q24H [facility] Last Infusion: 02/20/23 22:52 Dose: Infused Azithromycin 500 mg/ Sodium (Chloride) 250 mls @ 125 mls/hr IV Q24H [facility] Last Infusion: 02/21/23 01:09 Dose: Infused Insulin Human Lispro (Insulin Lispro 100 Unit/Ml 3 Ml Vial) 0 unit SUBCUT QIDACHS [facility]; Protocol Last Admin: 02/21/23 11:50 Dose: 8 unit Isosorbide Mononitrate (Isosorbide Mononitrate 30 Mg Tab.Er.24h) 30 mg PO DAILY [facility]; Protocol Last Admin: 02/21/23 10:26 Dose: 30 mg Lorazepam (Lorazepam 0.5 Mg Tablet) 0.5 mg PO BID PRN PRN Reason: anxiety Last Admin: 02/20/23 20:51 Dose: 0.5 mg Melatonin (Melatonin 3 Mg Tablet) 6 mg PO BEDTIME PRN PRN Reason: Insomnia Methylprednisolone Sodium Succinate (Methylprednisolone Sod Succ 40 Mg/Ml Vial) 40 mg IVPUSH Q24H [facility] Metoprolol Tartrate (Metoprolol Tartrate 25 Mg Tablet) 25 mg PO BID [facility]; Protocol Last Admin: 02/21/23 10:26 Dose: 25 mg Omeprazole (Omeprazole 20 Mg Capsule.) 20 mg PO DAILY@0630 [facility] Last Admin: 02/21/23 05:44 Dose: 20 mg Ondansetron HCl (Ondansetron Hcl 4 Mg/2 Ml Vial) 4 mg IVPUSH Q8H PRN PRN Reason: Nausea and Vomiting Polyethylene Glycol (Polyethylene Glycol 3350 17 Gm Powd.Pack) 17 gm PO DAILY PRN PRN Reason: Constipation Salmeterol Xinafoate (Salmeterol Xinafoate 50 Mcg Blst.W.Dev) 1 puff INHALE RBID [facility] Last Admin: 02/21/23 07:55 Dose: 1 puff Sodium Chloride (0.9 % Sodium Chloride Flush 3 Ml Syringe) 3 ml IVFLUSH QSHIFT [facility] Last Admin: 02/21/23 09:26 Dose: Not Given Home Medications Medication Instructions Recorded Confirmed Last Taken Type albuterol sulfate 90 mcg/actuation 2 puff PO Q4H PRN Shortness Of 01/14/20 02/18/23 07/29/22 18:00 History aerosol inhaler Breath Or Wheezing budesonide-formoterol HFA 160 2 puff inhalation DAILY 03/14/21 02/18/23 07/29/22 08:00 History mcg-4.5 mcg/actuation aerosol inhaler (Symbicort) isosorbide mononitrate 30 mg 30 mg PO DAILY 03/14/21 02/18/23 07/29/22 08:00 History tablet,extended release 24 hr calcium carbonate 600 mg-vitamin 1 tab PO DAILY 08/04/21 02/18/23 07/28/22 08:00 History D3 10 mcg (400 unit) tablet Oxygen Home Use 06/14/22 09/21/22 Unknown History glipizide 5 mg tablet 5 mg PO BID 09/21/22 02/18/23 Unknown History azithromycin 500 mg tablet 500 mg PO MOWEFR 02/18/23 02/18/23 Unknown History Physical Exam Vital Signs: Vital Signs: Last Vital Signs Temp 97 F 02/21/23 07:39 Pulse 70 02/21/23 09:23 Resp 16 02/21/23 07:57 BP 109/53 L 02/21/23 07:39 Pulse Ox 93 02/21/23 09:23 O2 Del Method Nasal Cannula 02/21/23 07:39 O2 Flow Rate 2 02/21/23 07:39 Oxygen Flow Rate 2 02/18/23 18:18 BMI result Body Mass Index 30.7 Const: General: comfortable, no acute distress, alert and awake Orientation/consciousness: patient oriented x3 HEENT: Head: Yes normal to inspection General nose exam: No nasal polyps present and No nasal discharge present Face and sinus: Yes sinuses nontender Mouth: oropharynx normal Throat: Yes posterior oropharynx normal Eyes: General: appearance normal, both eyes and all related structures Neck: Neck: Yes normal visual inspection, Yes no lymphadenopathy, Yes trachea midline and Yes no JVD Thyroid: Thyroid normal Chest: Chest palpation & inspection: normal inspection of the chest, normal palpation of entire chest wall and no tenderness Resp: Other: PERCUSSION NOTE RESONANT, BREATH SOUNDS ARE DUE DISTANT AN WITH PROLONGED EXPIRATORY PHASE. HE HAS A FEW FINE INSPIRATORY CRACKLES OVER THE LOWER LOBES. NO WHEEZES. Cardio: Palpation: normal PMI Rate: regular rate Rhythm: regular rhythm Heart sounds: no gallops and Murmur heart sound present GI: Palpation (GI): Soft to palpation, Tenderness to palpation present (GI), No hepatosplenomegaly present, Palpable mass present and Other GI palpation findings present (ABDOMEN IS QUITE PROTUBERANT BUT SOFT AND NONTENDER) Auscultation: normal bowel sounds Back/Spine/Pelvis: Thoracic/Lumbar Spine: thoracic and lumbar spine normal to inspection and thoraco-lumbar ROM limited Skin: General skin exam: no rashes or lesions noted Neuro: General: patient oriented x3 and no focal motor deficits Cranial nerves: Yes CN's II-XII intact bilaterally Extrem: General: Yes normal to inspection, Yes no clubbing, cyanosis or edema and Yes no calf tenderness Psych: Appearance: grossly normal and well kempt Speech and movement: Normal speech and movement present Results Laboratory Findings 02/21/23 05:57 02/22/23 05:44 ABG, PT/INR, D-dimer: PT/INR, D-dimer PT 11.1 SEC (11.1-13.3) 02/18/23 19:13 INR 0.9 (0.9-1.1) 02/18/23 19:13 Abnormal lab findings: Abnormal Labs 02/18/23 02/18/23 02/18/23 19:13 19:17 21:21 WBC RBC 4.03 L Hgb 11.5 L Hct 39.3 L MCHC 29.3 L Immature Gran % (Auto) Neut % (Auto) 74.1 H Lymph % (Auto) 11.5 L [place] % (Auto) Eos % (Auto) 4.3 H Lymph # (Auto) 0.6 L Abs Immat Gran (auto) Immature Retic Fraction VBG pH VBG HCO3 Chloride 89 L Carbon Dioxide 44 H* Anion Gap BUN POC Glucose 206 H Random Glucose 217 H Iron Urine Protein 30 (1+) H Urine Glucose (UA) 500 H Urine RBC 3-5 H 02/18/23 02/19/23 02/19/23 22:05 01:07 04:58 WBC RBC Hgb Hct MCHC Immature Gran % (Auto) Neut % (Auto) Lymph % (Auto) [place] % (Auto) Eos % (Auto) Lymph # (Auto) Abs Immat Gran (auto) Immature Retic Fraction VBG pH 7.30 L VBG HCO3 51 H 50 H Chloride 88 L Carbon Dioxide 43 H* Anion Gap BUN POC Glucose Random Glucose 212 H Iron Urine Protein Urine Glucose (UA) Urine RBC 02/19/23 02/19/23 02/19/23 04:59 06:59 10:55 WBC 4.7 L RBC 3.83 L Hgb 11.1 L Hct 36.8 L MCHC 30.2 L Immature Gran % (Auto) 0.9 H Neut % (Auto) 89.4 H Lymph % (Auto) 8.2 L [place] % (Auto) 1.3 L Eos % (Auto) Lymph # (Auto) 0.4 L Abs Immat Gran (auto) 0.04 H Immature Retic Fraction VBG pH VBG HCO3 Chloride Carbon Dioxide Anion Gap BUN POC Glucose 196 H 334 H Random Glucose Iron Urine Protein Urine Glucose (UA) Urine RBC 02/19/23 02/19/23 02/19/23 12:55 18:11 20:28 WBC RBC Hgb Hct MCHC Immature Gran % (Auto) Neut % (Auto) Lymph % (Auto) [place] % (Auto) Eos % (Auto) Lymph # (Auto) Abs Immat Gran (auto) Immature Retic Fraction VBG pH VBG HCO3 Chloride Carbon Dioxide Anion Gap BUN POC Glucose 231 H 242 H 235 H Random Glucose Iron Urine Protein Urine Glucose (UA) Urine RBC 02/20/23 02/20/23 02/20/23 05:50 05:53 07:37 WBC RBC 3.55 L Hgb 10.3 L Hct 34.0 L MCHC 30.3 L Immature Gran % (Auto) Neut % (Auto) Lymph % (Auto) [place] % (Auto) Eos % (Auto) Lymph # (Auto) Abs Immat Gran (auto) Immature Retic Fraction 14.2 H VBG pH 7.45 H VBG HCO3 51 H Chloride 91 L Carbon Dioxide 45 H* Anion Gap 9 L BUN POC Glucose 171 H Random Glucose 200 H Iron 40 L Urine Protein Urine Glucose (UA) Urine RBC 02/20/23 02/20/23 02/20/23 11:30 16:14 20:37 WBC RBC Hgb Hct MCHC Immature Gran % (Auto) Neut % (Auto) Lymph % (Auto) [place] % (Auto) Eos % (Auto) Lymph # (Auto) Abs Immat Gran (auto) Immature Retic Fraction VBG pH VBG HCO3 Chloride Carbon Dioxide Anion Gap BUN POC Glucose 220 H 253 H 254 H Random Glucose Iron Urine Protein Urine Glucose (UA) Urine RBC 02/21/23 02/21/23 02/21/23 05:57 06:01 07:14 WBC RBC 3.95 L Hgb 12.0 L Hct 38.6 L MCHC Immature Gran % (Auto) Neut % (Auto) Lymph % (Auto) [place] % (Auto) Eos % (Auto) Lymph # (Auto) Abs Immat Gran (auto) Immature Retic Fraction VBG pH VBG HCO3 39 H Chloride 95 L Carbon Dioxide 35 H Anion Gap BUN 18 H POC Glucose 209 H Random Glucose 231 H Iron Urine Protein Urine Glucose (UA) Urine RBC 02/21/23 11:23 WBC RBC Hgb Hct MCHC Immature Gran % (Auto) Neut % (Auto) Lymph % (Auto) [place] % (Auto) Eos % (Auto) Lymph # (Auto) Abs Immat Gran (auto) Immature Retic Fraction VBG pH VBG HCO3 Chloride Carbon Dioxide Anion Gap BUN POC Glucose Urine RBC VENOUS BG 02/18 PH 7.30 , PCO 103 PO2 73, BICARB 51 02/19 7.39 82 66 50 02/21 7.35 70 35 39 ( PATIENT ON DIAMOX ) Microbiology: Microbiology 02/18/23 22:00 Blood - Venous Blood Culture - Preliminary No growth after 48 hours. 02/18/23 21:58 Blood - Venous Blood Culture - Preliminary No growth after 48 hours. 02/20/23 00:30 Sputum - Expectorated Gram Stain - Final 02/20/23 00:30 Sputum - Expectorated Sputum Culture - Final Diagnostic Findings Chest x-ray: report reviewed and image reviewed CT scan - chest: report reviewed and image reviewed Assessment and Plan (1) Acute exacerbation of chronic obstructive pulmonary disease: Status: Acute (2) Pneumonia: Qualifiers: Laterality: right Lung location: lower lobe of lung Pneumonia type: due to unspecified organism Qualified Code(s): J18.9 - Pneumonia, unspecified organism Status: Acute (3) Respiratory failure with hypoxia and hypercapnia: Status: Acute (4) Confusion: Status: Acute Plan THIS GENTLEMAN WITH LONGSTANDING COPD AND CHRONIC HYPOXEMIC RESPIRATORY FAILURE, HAS HAD HYPERCAPNIA IN THE PAST. 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 HE DOES OKAY JUST WITH OXYGEN. SUPPLEMENTATION AND MAINTENANCE MEDS THE BLOOD GAS RESULTS INDICATE CHRONIC COMPENSATED RESPIRATORY FAILURE, WITH ACUTE WORSENING WHEN HE COMES IN WITH ACUTE EXACERBATION OF COPD. HE HAS CONFUSIONAL STATE DUE TO HYPERCAPNIA, BUT IT IMPROVES THEN HIS MENTAL STATUS ALSO GETS BETTER. [place] : AGREE WITH THE CURRENT TREATMENT REGIMEN. PATIENT IS VERY ALERT AND UNDERSTANDING AND I HAVE ADVISED HIM TO DO DEEP BREATHING EXERCISES WITH PURSED LIP TECHNIQUE. HIS DAUGHTER WHO IS SITTING BY. THE BEDSIDE WOULD ALSO REINFORCED THAT I THINK ADDITION OF DIAMOX IS HELPFUL 250 MG B.I.D. FOR THE TIME BEING AND ONCE HIS BICARB LEVELS COME IN NORMAL RANGE IT CAN BE CUT DOWN TO 250 MG ONCE A DAY. WE CAN ALSO CHECK HIM TO SEE IF HE QUALIFIES FOR A BIPAP . FOR THIS HE SHOULD HAVE OVERNIGHT OXIMETRY RECORDING WITH OXYGEN SUPPLEMENTATION AT 2 L/MINUTE. IDEALLY HE WILL DO MUCH BETTER IF HE STARTS USING BIPAP AT NIGHTS. HOWEVER NONCOMPLIANCE WOULD REMAIN AN ISSUE. THIS CAN BE ADDRESSED OUTPATIENT Procedures Date of Service Date of Service: 02/22/23
--- NOTE | 2023-02-21 14:33 | MHC.CM.PN ---
PT/ REQUESTS A REFERRAL TO [facility] THEY HAVE HAD THEM IN NEAR PAST. REFERRAL SENT, [facility] ACCEPTING FOR RESIDENTIAL SERVICES ON DC. CM WILL CONTINUE TO FOLLOW FOR ANY CHANGE IN DC PLAN/NEEDS.
[2023-02-21 16:19] LABS: Glucose, Whole Blood 179 mg/dL (60-115)
[2023-02-21] MEDS: 0.9 % Sodium Chloride Flush 3 ML SYRINGE IVFLUSH (20:03)
[2023-02-21 20:08] LABS: Glucose, Whole Blood 222 mg/dL (60-115)
[2023-02-21] MEDS: acetaZOLAMIDE 250 MG TABLET PO (20:32)
[2023-02-21] MEDS: Atorvastatin Calcium 80 MG TABLET PO (20:32)
[2023-02-21] MEDS: methylPREDNISolone Sod Succ 40 MG/ML VIAL IVPUSH (21:49)
[2023-02-21] MEDS: cefTRIAXone sodium 1 GM in 0.9 % Sodium Chloride 50 ML IV (21:51)
[2023-02-21] MEDS: Azithromycin 500 MG in 0.9 % Sodium Chloride 250 ML 125 MG IV (22:32)
[2023-02-21] MEDS: LORazepam 0.5 MG TABLET PO (22:46)
[2023-02-22 04:00] VITALS: BP 112/68; PULSE 74; RESP 18; TEMP 36.1; O2SAT 92
[2023-02-22 04:38] VITALS: O2SAT 90
[2023-02-22 04:38] LABS: ABG Base Excess 6.3 mmol/L; ABG HCO3 34 mmol/L (22-26); ABG pCO2 63 mmHg (32-45); ABG pH 7.33 (7.35-7.45); ABG pO2 73 mmHg (83-108)
[2023-02-22 04:49] LABS: ABG Refer to POC result
[2023-02-22 05:54] LABS: Venous Blood Gas Refer to POC result
[2023-02-22 05:54] LABS: VBG Base Excess 8.9 mmol/L; VBG HCO3 37 mmol/L (22-26); VBG pCO2 66 mmHg; VBG pH 7.35 (7.32-7.43); VBG pO2 64 mmHg
[2023-02-22] MEDS: Omeprazole 20 MG CAPSULE.DR PO (06:08)
[2023-02-22 06:14] LABS: Anion Gap 12 (12-20); Blood Urea Nitrogen 20 mg/dL (9-16); Calcium 9.2 mg/dL (8.4-10.2); Carbon Dioxide 32 mmol/L (22-29); Chloride 97 mmol/L (96-108); Creatinine Clr Calc Pharmacy 83.5; Estimated Glomerular Filt Rate > 60; Glucose Random 276 mg/dL (60-115); Potassium 4.3 mmol/L (3.3-5.1); Sodium 137 mmol/L (135-145)
[2023-02-22 06:30] LABS: Procalcitonin 0.03 ng/mL
[2023-02-22 07:26] LABS: Glucose, Whole Blood 213 mg/dL (60-115)
[2023-02-22] MEDS: Salmeterol Xinafoate 50 MCG BLST.W.DEV 1 PUFF INHALE (07:35)
[2023-02-22 07:37] VITALS: PULSE 66; RESP 16; O2SAT 95
[2023-02-22 08:00] VITALS: BP 130/64; PULSE 82; TEMP 36.3; O2SAT 92
[2023-02-22] MEDS: Insulin Lispro 100 UNIT/ML 3 ML VIAL SUBCUT ×2 (08:04→13:21)
[2023-02-22] MEDS: 0.9 % Sodium Chloride Flush 3 ML SYRINGE IVFLUSH (08:06)
[2023-02-22] MEDS: Escitalopram Oxalate 20 MG TABLET PO (08:06)
[2023-02-22] MEDS: Isosorbide Mononitrate 30 MG TAB.ER.24H PO (08:06)
[2023-02-22] MEDS: Metoprolol Tartrate 25 MG TABLET PO (08:06)
[2023-02-22] MEDS: Calcium + Vitamin D 250 MG TABLET PO (08:06)
[2023-02-22] MEDS: acetaZOLAMIDE 250 MG TABLET PO (08:06)
--- NOTE | 2023-02-22 10:24 | MHC.CM.PN ---
pt is dcd today john notifed
--- NOTE | 2023-02-22 11:32 | P.F2F_ITS ---
Service Date Service Date: 02/22/23 Encounter Date of encounter: 02/22/23 Reasons for Services Signs and symptoms assessed: cognitive impairment Reason for intermediate: neurological assessment, medication management, medication treatment and teach disease management MD Overseeing Care: Anne-Marie Muro Homebound: Leaving the home is medically contraindicated at this time without the asist of a device and/or another person due th the listed conditions above and below. Reason homebound: cognitively impaired / unsafe Certification: Based on the above findings, I certify that this patient is confined to the home and needs intermittent intermediate care, physical therapy and/or speech therapy, or continues to need occupational therapy. The patient is under my care, and I have initiated the establishment of the plan of care. The patient will be followed by a physician who will periodically review the plan of care. Time Spent With Patient Time: Total time managing care of this patient today ____ minutes.
--- NOTE | 2023-02-22 11:38 | P.F2F_ITS ---
Service Date Service Date: 02/22/23 Encounter Date of encounter: 02/22/23 Reasons for Services Signs and symptoms assessed: respiratory cognitive Reason for senior living: medication management, medication treatment and teach disease management Reason for occupational therapy: ADL training MD Overseeing Care: Anne-Marie Muro Homebound: Leaving the home is medically contraindicated at this time without the asist of a device and/or another person due th the listed conditions above and below. Reason homebound: cognitively impaired / unsafe Certification: Based on the above findings, I certify that this patient is confined to the home and needs intermittent senior living care, physical therapy and/or speech therapy, or continues to need occupational therapy. The patient is under my care, and I have initiated the establishment of the plan of care. The patient will be followed by a physician who will periodically review the plan of care. Time Spent With Patient Time: Total time managing care of this patient today ____ minutes.
--- NOTE | 2023-02-22 11:40 | P.DS_ITS ---
DS: Providers Provider Date of Service: 02/22/23 Date of admission: 02/19/23 01:58 Date of discharge: 02/22/23 Primary care physician: Anne-Marie Muro MD Consults: 02/21/23 10:18 Consult to Pulmonology Routine Consulting Provider: [facility] Pulmonology Services Reason for consultation: COPD exacerbation, CO2 retention DS: Diagnosis Discharge Diagnosis (1) Acute exacerbation of chronic obstructive pulmonary disease: Status: Acute (2) Pneumonia: Status: Acute (3) Respiratory failure with hypoxia and hypercapnia: Status: Acute (4) Cognitive impairment: Status: Acute (5) Metabolic encephalopathy: Status: Acute DS: Summary Hospital Course Hospital Course: from admission H+P on 02/19/23 by hospitalist Manny Riddle: This is a 73-year-old male with pertinent history of chronic hypoxemic respiratory failure due to COPD, [id number] diabetes mellitus, essential hypertension, mixed hyperlipidemia, mood disorder who was sent to the emergency department for evaluation of dyspnea. Patient states he started having symptoms 2 days prior to presentation. Patient reports he started having dyspnea on his home baseline oxygen. The dyspnea was progressive over the last 2 days. It is associated with productive cough with yellowish sputum production. Also has been having wheezing. The noticed intermittent mild confusion. No fever or chills. No sick contacts. Denies chest discomfort, palpitations, abdominal pain, changes in urinary or bowel habits. In the emergency department, patient requiring 4 L supplemental oxygen and imaging concerning for right-sided pneumonia 73yo M with chronic hypoxic RF [2-3L] due to COPD, DM2, HTN, HLD presenting with dyspnea, admitted for COPD exacerbation + PNA. He improved with IV steroids and ceftriaxone + azithromycin. Blood cultures negative and he was not septic. He was weaned to his home oxygen dose. He was started on acetazolamide for hypercarbia. Pulmonology was consulted and he should follow up with them in 1 week and obtain an outpatient overnight sleep study to see if he qualifies for nocturnal BiPAP. As for confusion, there is some concern of cognitive impairment underlying metabolic encephalopathy [which was due to hypoxia and hypercarbia]; MOCA score was 17. He should follow up with Neurology for further assessment. Home VNA services were arranged for medication management and OT for ADL training. He was discharged on prednisone taper and cefuroxime and will continue suppressive azithromycin. He was also prescribed acetazolamide. Time Attestation Discharge coordination time: Greater than 30 minutes Specific discharge activities: 40 Quality: Safe Use of Opioids Does Pt have an Active Cancer Diagnosis on the Problem List?: No Quality: Stroke Does the patient have a stroke diagnosis?: No Physical Exam Vital Signs: Vital Signs: Last Vital Signs Temp 97.3 F 02/22/23 08:00 Pulse 82 02/22/23 08:00 Resp 16 02/22/23 07:37 BP 130/64 02/22/23 08:00 Pulse Ox 92 02/22/23 08:00 O2 Del Method Nasal Cannula 02/22/23 08:00 O2 Flow Rate 2 02/22/23 08:00 Oxygen Flow Rate 2 02/18/23 18:18 BMI result Body Mass Index 30.7 Gen: in no acute distress HEENT: sclera anicteric, moist mucus membranes Neck: supple Lungs: diminished Heart: regular rate and rhythm, no murmurs Abd: soft, non-tender, non-distended Ext: no edema Skin: warm/well-perfused Neuro: alert and oriented x3, no focal findings Psych: appropriate affect DS: Data Data Completed and Pending Completed studies during hospitalization [Text1]: Laboratory Results WBC 6.1 X10*3/uL (4.8-10.8) 02/21/23 05:57 RBC 3.95 X10*6/uL (4.60-5.80) L 02/21/23 05:57 Hgb 12.0 g/dl (14.0-18.0) L 02/21/23 05:57 Hct 38.6 % (42.0-52.0) L 02/21/23 05:57 MCV 97.7 fL (80.0-98.0) 02/21/23 05:57 MCH 30.4 pg (27.0-33.0) 02/21/23 05:57 MCHC 31.1 g/dl (31.0-36.0) 02/21/23 05:57 RDW 13.5 % (11.0-16.0) 02/21/23 05:57 Plt Count 236 X10*3/uL (160-400) D 02/21/23 05:57 MPV 10.6 fL (9.4-12.4) 02/21/23 05:57 Immature Gran % (Auto) 0.9 % (0.0-0.4) H 02/19/23 04:59 Neut % (Auto) 89.4 % (45-73) H 02/19/23 04:59 Lymph % (Auto) 8.2 % (20-40) L 02/19/23 04:59 Bea[place]gard % (Auto) 1.3 % (2-11) L 02/19/23 04:59 Eos % (Auto) 0.0 % (0-4) 02/19/23 04:59 Baso % (Auto) 0.2 % (0-2) 02/19/23 04:59 Lymph # (Auto) 0.4 X10*3/uL (1.2-4.9) L 02/19/23 04:59 [place]gard # (Auto) 0.1 X10*3/uL (0.1-1.2) 02/19/23 04:59 Eos # (Auto) 0.0 X10*3/uL (0.0-0.4) 02/19/23 04:59 Baso # (Auto) 0.0 X10*3/uL (0.0-0.2) 02/19/23 04:59 Abs Immat Gran (auto) 0.04 X10*3/uL (0.00-0.03) H 02/19/23 04:59 Absolute Neuts (auto) 4.2 x10*3/uL (2.0-8.3) 02/19/23 04:59 Absolute Nucleated RBC 0.000 X10*3/uL (0.0-0.012) 02/21/23 05:57 Nucleated RBC % (auto) 0.0 /100WBC (0.0-0.2) 02/21/23 05:57 Absolute Retic 0.063 X10*6/uL (0.026-0.095) 02/20/23 05:50 Percent Retic 1.8 % (0.5-1.8) 02/20/23 05:50 Immature Retic Fraction 14.2 % (2.3-13.4) H 02/20/23 05:50 Retic Hgb Equivalent 30.9 pg (30.0-35.0) 02/20/23 05:50 Hold Purple Top SEE NOTE 02/22/23 05:47 PT 11.1 SEC (11.1-13.3) 02/18/23 19:13 INR 0.9 (0.9-1.1) 02/18/23 19:13 APTT 34.0 SEC (26.0-36.4) 02/18/23 19:13 O2 Saturation 94.0 % 02/22/23 04:31 ABG pH at Pt Temp 7.33 (7.35-7.45) L 02/22/23 04:31 ABG pCO2 at Pt Temp 63 mmHg (32-45) H* 02/22/23 04:31 ABG pO2 at Pt Temp 73 mmHg (83-108) L 02/22/23 04:31 ABG HCO3 34 mmol/L (22-26) H 02/22/23 04:31 ABG Base Excess (Actual) 6.3 mmol/L 02/22/23 04:31 VBG pH 7.35 (7.32-7.43) 02/22/23 05:49 VBG pCO2 66 mmHg 02/22/23 05:49 VBG pO2 64 mmHg 02/22/23 05:49 VBG HCO3 37 mmol/L (22-26) H 02/22/23 05:49 VBG O2 Saturation 92.0 % 02/22/23 05:49 VBG Base Excess 8.9 mmol/L 02/22/23 05:49 Sodium 137 mmol/L (135-145) 02/22/23 05:44 Potassium 4.3 mmol/L (3.3-5.1) 02/22/23 05:44 Chloride 97 mmol/L (96-108) 02/22/23 05:44 Carbon Dioxide 32 mmol/L (22-29) H 02/22/23 05:44 Anion Gap 12 (12-20) 02/22/23 05:44 BUN 20 mg/dL (9-16) H 02/22/23 05:44 Creatinine 0.81 mg/dL (0.5-1.4) 02/22/23 05:44 Estim Creat Clear Calc 83.5 02/22/23 05:44 Estimated GFR > 60 02/22/23 05:44 POC Glucose 213 mg/dL (60-115) H 02/22/23 07:14 Random Glucose 276 mg/dL (60-115) H 02/22/23 05:44 Lactic Acid 1.1 mmol/L (0.5-2.0) 02/18/23 21:58 Calcium 9.2 mg/dL (8.4-10.2) 02/22/23 05:44 Iron 40 mcg/dL (45-160) L 02/20/23 05:50 TIBC 232 mcg/dL (228-428) 02/20/23 05:50 % Saturation 17 % (15-50) 02/20/23 05:50 Unsat Iron Binding 192 ug/dL 02/20/23 05:50 Ferritin 49 ng/mL (20-250) 02/20/23 05:50 Lactate Dehydrogenase 187 U/L (118-273) 02/20/23 05:50 Total Creatine Kinase 63 U/L (38-174) 02/18/23 19:13 Troponin I High Sens 3.2 ng/L (<3.5-35.0) 02/18/23 19:13 B-Natriuretic Peptide 34 pg/mL (<100) 02/18/23 21:58 Vitamin B12 355 pg/mL (200-900) 02/21/23 05:57 Folate 6.9 ng/mL (> or = 4.0) 02/21/23 05:57 Procalcitonin 0.03 ng/mL 02/22/23 05:44 TSH 0.82 uIU/mL (0.32-4.0) 02/18/23 19:13 Urine Color Yellow 02/18/23 21:21 Urine Appearance Clear 02/18/23 21:21 Urine pH 6.0 (5.0-9.0) 02/18/23 21:21 Ur Specific [place] 1.025 (1.005-1.025) 02/18/23 21:21 Urine Protein 30 (1+) mg/dL (Neg-Trace) H 02/18/23 21:21 Urine Glucose (UA) 500 mg/dL (Negative) H 02/18/23 21:21 Urine Ketones Trace mg/dL (Negative) 02/18/23 21:21 Urine Blood Negative (Negative) 02/18/23 21:21 Urine Nitrite Negative (Negative) 02/18/23 21: Ur Leukocyte Esterase Negative (Negative) 02/18/23 21:21 Urine RBC 3-5 /HPF (0-2) H 02/18/23 21:21 Urine WBC 0-5 /HPF (0-5) 02/18/23 21:21 Ur Squamous Epith Cells 0-2 /HPF (0-2) 02/18/23 21:21 Calcium Oxalate Crystal Present 02/18/23 21:21 Urine Bacteria None Seen (None Seen) 02/18/23 21:21 Hyaline Casts 0-2 /LPF (0-2) 02/18/23 21:21 Influenza Type A (PCR) NEGATIVE (Negative) 02/18/23 19:12 Influenza Type B (PCR) NEGATIVE (Negative) 02/18/23 19:12 RSV RNA Qual (PCR) NEGATIVE (Negative) 02/18/23 19:12 SARS-CoV-2 RNA (RT-PCR) NEGATIVE (Negative) 02/18/23 19:12 S. pyogenes GrpA MATHEW Negative (Negative) 02/18/23 19:12 Impressions Chest X-Ray 02/18/23 21:27 IMPRESSION: Chronic appearing changes similar to the 02/08/2023 study. No definitive acute superimposed process when compared to the 02/08/[address] 02/18/23 21:58 IMPRESSION: No acute intracranial findings. Chest CTA 02/18/23 23:25 IMPRESSION: No evidence for pulmonary embolism. Stable left apical opacity and pleural fluid. Peripheral interstitial prominence suggests minimal edema. Right middle lobe, lingular and bibasilar opacities most likely atelectasis. This is most prominent in the right middle lobe. Early right middle lobe infiltrate considered less likely. VTE: Negative for pulmonary embolism. Discharge Plan Discharge Anticipated Discharge Date/Time: 02/22/23 11:33 Patient Disposition: Home Health Service Discharge Diagnosis: COPD exacerbation pneumonia hypoxia/hypercarbia cognitive impairment Referrals: john [Other] - 1 Week Rosmery Esqueda MD [Physician] - 2 Weeks Anne-Marie Muro MD [Primary Care Provider] - 1 Week Jamie Murphy MD [Physician] - 1 Month Discharge Medications: New acetazolamide 250 mg Tablet 250 mg PO DAILY Qty: 30 0RF prednisone 10 mg tablet See Rx Instructions .ROUTE .COMPLEX Qty: 20 0RF Rx Instructions: 40 mg daily x 2 days, then 30 mg daily x 2 days, then 20 mg daily x 2 days, then 10 mg daily x 2 days cefuroxime axetil 500 mg tablet 500 mg PO Q12H Qty: 8 0RF Continued (DME) blood-glucose meter [FreeStyle Lite Meter] Kit See Rx Instructions .Route Qty: 1 0RF Rx Instructions: As directed atorvastatin 80 mg tablet 80 mg PO BEDTIME Qty: 90 3RF omeprazole 20 mg capsule,delayed release(DR/EC) 20 mg PO DAILY@0630 4RF metformin 1,000 mg tablet 1,000 mg PO BID Qty: 180 1RF metoprolol tartrate 25 mg tablet 25 mg PO BID Qty: 180 1RF (DME) FreeStyle Lite Strips Strip See Rx Instructions .Route Qty: 100 5RF Rx Instructions: check fasting glucose BID ac isosorbide mononitrate 30 mg tablet extended release 24 hr 30 mg PO DAILY budesonide-formoterol [Symbicort] 160-4.5 mcg/actuation Hfa Aerosol Inhaler 2 puff INHALATION DAILY glipizide 5 mg tablet 5 mg PO BID calcium carbonate-vitamin D3 600 mg-10 mcg (400 unit) tablet 1 tab PO DAILY polyethylene glycol 3350 17 gram Powder In Packet 17 g PO DAILY PRN (Reason: Constipation) Qty: 30 0RF azithromycin 500 mg tablet 500 mg PO MOWEFR albuterol sulfate 90 mcg/actuation HFA aerosol inhaler 2 puff PO Q4H PRN (Reason: Shortness Of Breath Or Wheezing) escitalopram oxalate 20 mg tablet 20 mg PO DAILY Qty: 30 6RF lorazepam [Ativan] 1 mg tablet 0.5 mg PO BID PRN (Reason: anxiety) Qty: 20 0RF Rx Instructions: Patient may request partial fill (DME) Oxygen Home Use Kit See Rx Instructions .Route Rx Instructions: As directed Discharge Orders: Discharge Order (Routine); Ordered 02/22/23 Ordered By: Dede Abdalla Diet: Diabetic diet Activity on Discharge: As tolerated Stand Alone Forms: Patient Portal Discharge page Care Plan Goals: respiratory health cognitive assessment Health Concerns: cognitive impairment Plan of Treatment: cefuroxime 500 mg twice daily for 4 days prednisone 10 mg tabs, taper as follows: 40 mg (4 tabs) daily x 2 days, then 30 mg (3 tabs) daily x 2 days, then 20 mg (2 tabs) daily x 2 days, then 10 mg (1 tab) daily x 2 days continue inhalers continue oxygen start acetazolamide 250 mg daily see Pulmonology in 1 week and get overnight sleep study to see if you qualify for CPAP/BiPAP referral to neurology Assessment: See Discharge Summary.
[2023-02-22 11:55] LABS: Glucose, Whole Blood 168 mg/dL (60-115)
== END 2023-02-22 14:54 | disposition home health service (06) | DRG 193 ==
LOC: HO.ED 02-19 00:14 → HO.EDOVER 02-19 02:03 → HO.S3 02-19 19:06
PROVIDERS: Emergency Medicine Emergency Medical Services; Internal Medicine; Admitting Provider Student in an Organized Health Care Education/Training Program; Emergency Provider Emergency Medicine; PCP Internal Medicine; Visit Provider Family Medicine
DX: J18.9 Pneumonia, unspecified organism (principal); G93.41 Metabolic encephalopathy; J96.21 Acute and chronic respiratory failure with hypoxia; J44.0 Chronic obstructive pulmonary disease with (acute) lower respiratory infection; J44.1 Chronic obstructive pulmonary disease with (acute) exacerbation; E78.2 Mixed hyperlipidemia; E11.65 Type 2 diabetes mellitus with hyperglycemia; F39 Unspecified mood [affective] disorder; I25.10 Atherosclerotic heart disease of native coronary artery without angina pectoris; G31.84 Mild cognitive impairment of uncertain or unknown etiology; Z20.822 Contact with and (suspected) exposure to COVID-19; Z87.891 Personal history of nicotine dependence; Z79.84 Long term (current) use of oral hypoglycemic drugs; Z79.899 Other long term (current) drug therapy
CPT/HCPCS: 0241U; 36415; 36600; 70450; 71045; 71275; 80048; 81001; 82550; 82607; 82728; 82746; 82803; 82947; 83540; 83605; 83615; 83880; 84145; 84443; 84484; 85025; 85027; 85045; 85610; 85730; 87040; 87070; 87205; 87651; 93005; 94640; 97162; 97165; 99285; J0456; J0696; J2920; J2930; Q9967

== ENCOUNTER → 2023-02-19 01:58 | Outpatient (BNV) | payer MEDICARE, SELFPAY | PROVIDERS: Admitting Provider Student in an Organized Health Care Education/Training Program; Emergency Provider Emergency Medicine; PCP Internal Medicine; Visit Provider Internal Medicine | DX: J44.1 Chronic obstructive pulmonary disease with (acute) exacerbation (principal); J18.9 Pneumonia, unspecified organism; J96.91 Respiratory failure, unspecified with hypoxia; J96.92 Respiratory failure, unspecified with hypercapnia; R41.0 Disorientation, unspecified | CPT/HCPCS: 99223 ==

== ENCOUNTER → 2023-02-19 01:58 | Outpatient (BNV) | payer MEDICARE, SELFPAY | PROVIDERS: Admitting Provider Student in an Organized Health Care Education/Training Program; Emergency Provider Emergency Medicine; PCP Internal Medicine; Visit Provider Student in an Organized Health Care Education/Training Program | DX: J44.1 Chronic obstructive pulmonary disease with (acute) exacerbation (principal); J96.21 Acute and chronic respiratory failure with hypoxia; J96.22 Acute and chronic respiratory failure with hypercapnia; J18.9 Pneumonia, unspecified organism; R41.89 Other symptoms and signs involving cognitive functions and awareness; G93.41 Metabolic encephalopathy | CPT/HCPCS: 99222; 99232; 99239; 99499; G0180 ==

== ENCOUNTER 2023-03-04 11:50 | Outpatient (AMB) | payer MEDICARE, SELFPAY ==
[2023-03-04 12:27] VITALS: BP 124/62; PULSE 78; O2SAT 93; BMI 29.9
--- NOTE | 2023-03-04 12:27 | MHC.PC.OV ---
Vital Signs 03/04/23 12:27 Height 5 ft 6 in Weight 185 lb 8 oz BMI 29.9 BP 124/62 Blood Pressure Location Rt brachial Position Sitting Pulse 78 Pulse Source Pulse Oximeter Pulse Oximetry (%) 93 Oxygen Delivery Method Nasal Cannula Intake Visit Reasons: HDF ~ Post hospital discharge FU Allergies fluticasone furoate [From Trelegy Ellipta] Allergy (Intermediate, Verified 03/04/23 12:29) Rash vilanterol [From Trelegy Ellipta] Allergy (Intermediate, Verified 03/04/23 12:29) Rash umeclidinium [Incruse Ellipta] Allergy (Unknown, Verified 03/04/23 12:29) Hives furosemide [From Lasix] Adverse Reaction (Intermediate, Verified 03/04/23 12:29) Hallucinations Medication List - Last Reconciled 03/04/23 by Anne-Marie Muro MD acetazolamide 250 mg PO DAILY albuterol sulfate 90 mcg/actuation 2 puffs PO Q4H PRN atorvastatin 80 mg PO BEDTIME azithromycin 500 mg PO 3XW blood sugar diagnostic (FreeStyle Lite Strips) check fasting glucose BID ac blood-glucose meter (FreeStyle Lite Meter kit) As directed budesonide-formoterol 160-4.5 mcg/actuation (Symbicort) 2 puffs inhalation DAILY calcium carbonate-vitamin D3 600 mg-10 mcg (400 unit) 1 tab PO DAILY escitalopram oxalate 20 mg PO DAILY glipizide 5 mg PO BID isosorbide mononitrate ER 30 mg PO DAILY lorazepam (Ativan) 0.5 mg (1/2 x 1 mg) PO BID PRN metformin 1,000 mg PO BID metoprolol tartrate 25 mg PO BID omeprazole 20 mg PO DAILY@0630 Oxygen Home Use As directed polyethylene glycol 3350 17 grams PO DAILY PRN Tobacco use date assessed: 03/04/23 Fall risk assessment: 1 Fall in past year Last assessed Fall Risk: 03/04/23 Dental Screening Dental Screen Date: 03/04/23 Did you have a dental visit in the last 12 months?: No Did you have a dental problem in the last 6 months where you did not have access to dental care?: No Was dental information given to patient?: No HPI HDF ~ Post hospital discharge FU HPI Details 73yo M with chronic hypoxic respiratory failure due to COPD, has diabetes mellitus type 2, HTN, HLD recently admitted for COPD exacerbation with pneumonia.. He improved with IV steroids and ceftriaxone + azithromycin. Blood cultures came back negative. He was weaned to his home oxygen dose. He was started on acetazolamide for hypercarbia. Pulmonology was consulted and advised to follow up with them in 1 week and obtain an outpatient overnight sleep study to see if he qualifies for nocturnal BiPAP. There was some concern of cognitive impairment underlying metabolic encephalopathy, felt to be due to hypoxia and hypercarbia; MOCA score was 17. Advised to follow-up with Neurology for further assessment. Home VNA services were arranged for medication management and OT for ADL training. He was discharged on prednisone taper and cefuroxime and will continue suppressive azithromycin. He was also prescribed acetazolamide. At present patient states that he is breathing back to baseline, and has an upcoming appointment with his vice president integrated scheduled already. [facility] Medical History (Updated 09/02/23 @ 04:21 by Anne-Marie Muro MD) Respiratory failure with hypoxia and hypercapnia Bilateral carotid artery disease CAD (coronary artery disease) Anxiety and depression Constipation Anemia Chronic respiratory failure with hypoxia and hypercapnia Radiation fibrosis of lung Acute on chronic respiratory failure with hypoxia and hypercapnia HTN (hypertension) Dyslipidemia History of pneumonia Bacteremia due to Enterococcus COPD, severe Diabetes mellitus with hyperglycemia, without long-term current use of insulin Urinary incontinence Asthma Lung cancer Skin cancer Surgical History Hx of heart artery stent History of esophagogastroduodenoscopy (EGD) Hx of colonoscopy Family History Father Medical history non-contributory Mother Medical history non-contributory Unknown family medical history Lung collapse Brother No problems noted. Brother No problems noted. Son Substance use disorder Son No problems noted. Daughter No problems noted. Sister No problems noted. Sister No problems noted. Sister No problems noted. Sister No problems noted. Other HTN (hypertension) Social History Household Members: Spouse Household Members Other:: grandson Housing: Apartment Are you a primary animal care supervisor to a significant other at home: No Do you presently have visiting nurse or other home services: No Alcohol intake: never Patient Tobacco Use Status: Former Tobacco user Quit Date: 2002 Tobacco use type: Cigarette e-Cigarette/Vaping Use: Never Used Advance Directives Date on File: 06/08/22 service: No Current occupational status: retired Cognitive needs: No Hearing needs: No Vision needs: No Questionnaire Thrive Questionnaire Date Thrive assessed: 02/19/23 SAUMYA-7 AMB Questionnaire SAUMYA-7 Date SAUMYA - 7 assessed: 09/21/22 Source: Developed by Drs. Finn Stevens, Klaudia Bonilla, Reinaldo Suero and colleagues, with an educational lolita from [employer]. Review of Systems Const Reports fatigue, Denies fever(s), Denies frequent falls, Denies headache(s) and Denies poor appetite Eyes Reports no additional complaints ENT Reports dizziness (Occasional), Denies headache(s), Denies nasal congestion, Denies nose pain, Denies post nasal drip and Denies sinus pain Card Denies chest pain, Denies edema, Denies palpitations and Reports dyspnea on exertion Resp Details: Has O2 nasal cannula when at home Reports cough (Intermittent), Denies pain with cough and Reports dyspnea on exertion GI Denies melena, Reports bloating, Denies hematochezia, Denies change in bowel habits and Denies heartburn Denies hematuria, Denies difficulty urinating and Reports urinary frequency Musc Reports arthralgias, Denies joint swelling and Reports stiffness Neuro Reports dizziness (Occasional), Denies frequent falls and Denies headache(s) Psych Reports no additional complaints and Reports anxiety Endo Reports fatigue, Reports polydipsia, Reports polyuria and Denies palpitations John/Lymph Denies easy bleeding and Reports easy bruising Aller/Immun Reports no additional complaints Physical exam (Primary Care) Vital Signs: Last Vital Signs Pulse 78 03/04/23 12:27 BP 124/62 03/04/23 12:27 Pulse Ox 93 03/04/23 12:27 Oxygen Delivery Method Nasal Cannula 03/04/23 12:27 BMI result Body Mass Index 29.9 Tobacco/Smoking Status: Tobacco use Status Tobacco use date assessed 03/04/23 03/04/23 12:37 Patient Tobacco Use Status Former Tobacco user 03/04/23 12:37 Tobacco use type Cigarette 03/04/23 12:37 e-Cigarette/Vaping Use Never Used 03/04/23 12:37 Thrive Assessment: Date of Thrive Assessment Date Thrive assessed 02/19/23 03/04/23 12:37 Const Other: Alert oriented x3 in no acute cardiorespiratory distress noted ambulatory with portable O2 Nutritional Appearance: obese Orientation/consciousness: patient oriented x3 HENMI General nose exam: Normal external nose present and No nasal discharge present Mouth: Normal oral and palatal mucosa present and moist mucous membranes Neck Other: Supple, no lymphadenopathy, thyroid gland nonpalpable Resp Other: Distant breath sounds bilaterally, no wheezing Cardio Other: S1-S2 present regular rate and rhythm GI Other: Obese, soft, nontender, no mass palpated Skin General skin exam: no rashes or lesions noted Neuro General: patient oriented x3, moves all extremities, Normal light touch and pain sensation and no focal motor deficits Extrem General: Yes full ROM and Yes no joint enlargement Psych Appearance: grossly normal and well kempt Mental Status: mental status grossly normal Speech and movement: Normal speech and movement present Affect: normal affect Attitude: cooperative Thought process: Normal thought process present Assessment and Plan Assessment & Plan (1) Metabolic encephalopathy: Code(s): G93.41 - Metabolic encephalopathy Plan: Currently on acetazolamide 250 mg taken once a day (2) Diabetes mellitus with hyperglycemia, without long-term current use of insulin: Code(s): E11.65 - Type 2 diabetes mellitus with hyperglycemia Qualifiers: Diabetes mellitus type: type 2 Qualified Code(s): E11.65 - Type 2 diabetes mellitus with hyperglycemia Plan: Continued on glipizide 5 mg 1 tablet twice a day and metformin a 1000 mg 1 tablet twice a day (3) Dyslipidemia: Code(s): E78.5 - Hyperlipidemia, unspecified Plan: Currently on atorvastatin 80 mg daily (4) GERD (gastroesophageal reflux disease): Comment: Continue omeprazole 20 mg once daily Code(s): K21.9 - Gastro-esophageal reflux disease without esophagitis Plan: Continue with omeprazole 20 mg daily (5) Anxiety and depression: Code(s): F41.9 - Anxiety disorder, unspecified; F32.A - Depression, unspecified Plan: Controlled with escitalopram 20 mg daily and takes lorazepam as needed for acute anxiety attacks (6) Acute exacerbation of chronic obstructive pulmonary disease: Code(s): J44.1 - Chronic obstructive pulmonary disease with (acute) exacerbation Plan: Already completed his prednisone taper, currently on home O2 and has home PT. Currently on budesonide formoterol 2 puffs twice a day, has an appointment already scheduled with his capital equipment specialist at [facility] (7) History of pneumonia: Code(s): Z87.01 - Personal history of pneumonia (recurrent) Plan: Already completed his antibiotics prescribed on discharge. Denies any further worsening shortness of breath, but still has lingering cough. Coding Level of Care Code Est Pt Level 4 (92474) Diagnoses Metabolic encephalopathy G93.41 Type 2 diabetes mellitus with hyperglycemia, without long-term current use of insulin E11.65 Diabetes mellitus type: type 2 Dyslipidemia E78.5 GERD (gastroesophageal reflux disease) K21.9 Anxiety and depression F41.9; F32.A Acute exacerbation of chronic obstructive pulmonary disease J44.1 History of pneumonia Z87.01
== END 2023-03-04 15:14 | disposition home or self-care (01) ==
PROVIDERS: PCP Internal Medicine; Visit Provider Internal Medicine
DX: G93.41 Metabolic encephalopathy (principal); E11.65 Type 2 diabetes mellitus with hyperglycemia; E78.5 Hyperlipidemia, unspecified; K21.9 Gastro-esophageal reflux disease without esophagitis; F41.9 Anxiety disorder, unspecified; F32.A Depression, unspecified; J44.1 Chronic obstructive pulmonary disease with (acute) exacerbation; Z87.01 Personal history of pneumonia (recurrent)
CPT/HCPCS: 99214

== ENCOUNTER 2023-03-14 11:06 | Emergency (ER) | payer MEDICARE, SELFPAY ==
--- NOTE | ~2023-03-14 | XR_ITS ---
EXAMINATION: XR CHEST CLINICAL INFORMATION: Dyspnea COMPARISON: Chest x-ray 02/18/2023 TECHNIQUE: Frontal view of the chest was obtained. FINDINGS: The lungs are well-expanded with bilateral reticular increased markings similar previous study. There is chronic left apical pleural thickening with mild loss of left lung volume. No evidence of pleural effusion, pneumothorax or acute consolidation seen. Mild spondylosis dorsal spine. XR/XR chest 1V IMPRESSION: 1. Chronic left apical pleural thickening with mild loss of left lung volume. No acute consolidation or pleural effusion seen. 2. There is mild spondylosis dorsal spine.
[2023-03-14 11:18] VITALS: BP 109/51; BP 121/53; PULSE 104; PULSE 65; RESP 22; TEMP 37.1; O2SAT 93; O2SAT 95; BMI 31.7
[2023-03-14 11:25] VITALS: O2SAT 95
--- NOTE | 2023-03-14 11:36 | ECG_ITS ---
Test Reason : sob Blood Pressure : / mmHG Vent. Rate : 087 BPM Atrial Rate : 087 BPM P-R Int : 148 ms QRS Dur : 086 ms QT Int : 344 ms P-R-T Axes : 048 078 069 degrees QTc Int : 413 ms Artifact in tracing Normal sinus rhythm Normal ECG When compared with ECG of 18-FEB-2023 18:34, Nonspecific T wave abnormality no longer evident in Lateral leads Referred By: Generic ED Physician Electronically Signed By:YOCASTA GIL
[2023-03-14 11:54] LABS: MANUAL DIFF FLAG NO
[2023-03-14 11:55] LABS: Basophils Percent Auto 0.4 % (0-2); Eosinophils Absolute Auto 0.1 X10*3/uL (0.0-0.4); Eosinophils Percent Auto 2.2 % (0-4); Hematocrit 35.9 % (42.0-52.0); Hemoglobin 10.8 g/dl (14.0-18.0); Imm Gran Abs Auto 0.04 X10*3/uL (0.00-0.03); Imm Gran Pct Auto 0.7 % (0.0-0.4); Lymphocytes Absolute Auto 0.7 X10*3/uL (1.2-4.9); Lymphocytes Percent Auto 13.4 % (20-40); Mean Corpuscular HGB Conc 30.1 g/dl (31.0-36.0); Mean Corpuscular Hemoglobin 29.2 pg (27.0-33.0); Monocytes Absolute Auto 0.6 X10*3/uL (0.1-1.2); Neutrophils Percent Auto 72.3 % (45-73); Platelet Count 153 X10*3/uL (160-400); Red Cell Distribution Width 14.3 % (11.0-16.0); White Blood Count 5.5 X10*3/uL (4.8-10.8)
[2023-03-14 12:17] LABS: Troponin-I High Sensitivity 4.5 ng/L (<3.5-35.0)
[2023-03-14 12:34] LABS: Anion Gap 15 (12-20); Blood Urea Nitrogen 14 mg/dL (9-16); Calcium 9.1 mg/dL (8.4-10.2); Carbon Dioxide 32 mmol/L (22-29); Chloride 96 mmol/L (96-108); Creatinine Clr Calc Pharmacy 85.2; Estimated Glomerular Filt Rate > 60; Glucose Random 227 mg/dL (60-115); Sodium 139 mmol/L (135-145)
[2023-03-14 12:37] LABS: Influenza A PCR NEGATIVE (Negative); Influenza B PCR NEGATIVE (Negative); Resp Syncy Virus RNA Qual PCR NEGATIVE (Negative); SARS COV2 PCR INHOUSE NEGATIVE (Negative)
[2023-03-14 14:00] VITALS: BP 111/60; PULSE 82; RESP 16; TEMP 37.1; O2SAT 93
--- NOTE | 2023-03-14 14:04 | ED.SOB ---
HPI - SOB/Dyspnea General Chief Complaint: Dyspnea Stated Complaint: SOB/LOW O2 SAT 73% BRAVO HERNANDEZ PER EMS Time Seen by Provider: 03/14/23 13:20 Source: patient Mode of arrival: ambulatory Limitations: no limitations History of Present Illness HPI Narrative: Patient is 73 years old with history of chronic hypoxemic respiratory failure due to COPD home oxygen 2.5 liter/minutes, diabetes, hypertension been here multiple times for shortness of says that since last time being short of breath desaturated to 73% on ambulation does have slight cough without any significant expiratory feels weak and tired no fever no chest pain or palpitation while examining patient is saturating 97% on 2.5 L Related Data Home Medications Medication Instructions Recorded Confirmed albuterol sulfate 90 mcg/actuation 2 puff PO Q4H PRN Shortness Of 01/14/20 03/04/23 aerosol inhaler Breath Or Wheezing budesonide-formoterol HFA 160 2 puff inhalation DAILY 03/14/21 03/04/23 mcg-4.5 mcg/actuation aerosol inhaler (Symbicort) isosorbide mononitrate 30 mg 30 mg PO DAILY 03/14/21 03/04/23 tablet,extended release 24 hr calcium carbonate 600 mg-vitamin 1 tab PO DAILY 08/04/21 03/04/23 D3 10 mcg (400 unit) tablet Oxygen Home Use 06/14/22 03/04/23 glipizide 5 mg tablet 5 mg PO BID 09/21/22 03/04/23 azithromycin 500 mg tablet 500 mg PO 3XW 03/04/23 03/04/23 Previous Rx's Medication Instructions Recorded blood-glucose meter (FreeStyle #1 ea 01/23/22 Lite Meter kit) atorvastatin 80 mg tablet 80 mg PO BEDTIME #90 tabs 02/05/22 polyethylene glycol 3350 17 gram 17 g PO DAILY PRN Constipation #30 08/07/22 oral powder packet ea escitalopram oxalate 20 mg tablet 20 mg PO DAILY #30 tabs 08/20/22 omeprazole 20 mg capsule,delayed 20 mg PO DAILY@0630 11/13/22 release metformin 1,000 mg tablet 1,000 mg PO BID #180 tabs 11/15/22 lorazepam 1 mg tablet (Ativan) 0.5 mg (1/2 x 1 mg) PO BID PRN 12/26/22 anxiety #20 tabs metoprolol tartrate 25 mg tablet 25 mg PO BID #180 tabs 01/09/23 blood sugar diagnostic (FreeStyle #100 ea 01/10/23 Lite Strips) acetazolamide 250 mg tablet 250 mg PO DAILY #30 tabs 02/22/23 Allergies Allergy/AdvReac Type Severity Reaction Status Date / Time fluticasone furoate Allergy Intermediate Rash Verified 03/04/23 12:29 [From Trelegy Ellipta] vilanterol Allergy Intermediate Rash Verified 03/04/23 12:29 [From Trelegy Ellipta] umeclidinium Allergy Unknown Hives Verified 03/04/23 12:29 [Incruse Ellipta] furosemide [From Lasix] AdvReac Intermediate Hallucinati Verified 03/04/23 12:29 ons Review of Systems Review of Systems: Yes all other systems are reviewed and are negative [facility] Past Medical History Medical History (Updated 03/14/23 @ 16:04 by Michael Keys MD) Respiratory failure with hypoxia and hypercapnia Bilateral carotid artery disease CAD (coronary artery disease) Anxiety and depression Constipation Anemia Chronic respiratory failure with hypoxia and hypercapnia Radiation fibrosis of lung Acute on chronic respiratory failure with hypoxia and hypercapnia HTN (hypertension) Dyslipidemia History of pneumonia Bacteremia due to Enterococcus COPD, severe Diabetes mellitus with hyperglycemia, without long-term current use of insulin Urinary incontinence Asthma Lung cancer Skin cancer Surgical History (Updated 03/02/23 @ 00:03 by Lior Ramires) Hx of heart artery stent History of esophagogastroduodenoscopy (EGD) Hx of colonoscopy Family History Family History Father Medical history non-contributory Mother Medical history non-contributory Unknown family medical history Lung collapse Brother No problems noted. Brother No problems noted. Son Substance use disorder Son No problems noted. Daughter No problems noted. Sister No problems noted. Sister No problems noted. Sister No problems noted. Sister No problems noted. Other HTN (hypertension) Social History Social History Household Members: Spouse Household Members Other:: grandson Housing: Apartment Are you a primary healthcare management to a significant other at home: No Do you presently have visiting nurse or other home services: No Alcohol intake: never Patient Tobacco Use Status: Former Tobacco user Quit Date: 2002 Tobacco use type: Cigarette Smoked in Last 30 Days: No e-Cigarette/Vaping Use: Never Used Use of substances other than those prescribed or required for medical reasons: No Advance Directives: Yes Advance Directives on File: Yes Advance Directives Date on File: 06/08/22 service: No Current occupational status: retired Cognitive needs: No Hearing needs: No Vision needs: No Physical Exam Vital Signs: Vital Signs: Last Vital Signs Temp 98.8 F 03/14/23 14:00 Pulse 82 03/14/23 14:00 Resp 16 03/14/23 14:00 BP 111/60 03/14/23 14:00 Pulse Ox 93 03/14/23 14:00 O2 Del Method Room Air 03/14/23 14:00 O2 Flow Rate 2.5 03/14/23 11:25 Oxygen Flow Rate 2.5 03/14/23 11:18 BMI result Body Mass Index 31.7 Appearance: Alert. Oriented X3. No acute distress. Eyes: PERRLA, No Nystagmus ENT: Pharynx normal. Oral Mucosa moist Neck: Normal inspection. Neck supple. CVS: Normal heart rate and rhythm. Pulses normal. Respiratory: No respiratory distress. Equal air entry bilateral, decreased air entry bilaterally few rales at bases Abdomen: Soft and nontender. Bowel sounds are present, no mass palpable, no CVA tenderness Skin: Skin warm and dry. Normal skin color. Normal skin turgor. Extremities: No lower extremity edema. No calf tenderness Neuro: Oriented X 3. No motor deficit. Medical Decision Making Medical Decision Making [facility] Narrative: Patient with chronic hypoxemic respiratory failure due to COPD home oxygen 2.5 liter/minutes, diabetes, hypertension care for increased shortness of breath improved after coming to the hospital saturating 93% on 2.5 L will give nebulizing treatment chest x-ray negative labs were stable discharge patient home Differential Diagnosis Differential Diagnoses: The differential diagnosis associated with the presentation includes CHF/COPD/bronchitis Admission/Observation Consideration of admission/observation: Escalation of care including admission/observation considered Lab Data [facility] Lab Attestation statement: I reviewed the patient's lab results. 03/14/23 11:49 03/14/23 12:16 Labs: Lab Results 03/14/23 03/14/23 Range/Units 11:49 12:16 WBC 5.5 (4.8-10.8) X10*3/uL RBC 3.70 L (4.60-5.80) X10*6/uL Hgb 10.8 L (14.0-18.0) g/dl Hct 35.9 L (42.0-52.0) % MCV 97.0 (80.0-98.0) fL MCH 29.2 (27.0-33.0) pg MCHC 30.1 L (31.0-36.0) g/dl RDW 14.3 (11.0-16.0) % Plt Count 153 L D (160-400) X10*3/uL MPV 10.0 (9.4-12.4) fL Immature Gran % (Auto) 0.7 H (0.0-0.4) % Neut % (Auto) 72.3 (45-73) % Lymph % (Auto) 13.4 L (20-40) % [place] % (Auto) 11.0 (2-11) % Eos % (Auto) 2.2 (0-4) % Baso % (Auto) 0.4 (0-2) % Lymph # (Auto) 0.7 L (1.2-4.9) X10*3/uL [place] # (Auto) 0.6 (0.1-1.2) X10*3/uL Eos # (Auto) 0.1 (0.0-0.4) X10*3/uL Baso # (Auto) 0.0 (0.0-0.2) X10*3/uL Abs Immat Gran (auto) 0.04 H (0.00-0.03) X10*3/uL Absolute Neuts (auto) 4.0 (2.0-8.3) x10*3/uL Absolute Nucleated RBC 0.000 (0.0-0.012) X10*3/uL Nucleated RBC % (auto) 0.0 (0.0-0.2) /100WBC Sodium 139 (135-145) mmol/L Potassium 4.0 (3.3-5.1) mmol/L Chloride 96 (96-108) mmol/L Carbon Dioxide 32 H (22-29) mmol/L Anion Gap 15 (12-20) BUN 14 (9-16) mg/dL Creatinine 0.78 (0.5-1.4) mg/dL Estim Creat Clear Calc 85.2 Estimated GFR > 60 Random Glucose 227 H (60-115) mg/dL Calcium 9.1 (8.4-10.2) mg/dL Troponin I High Sens 4.5 (<3.5-35.0) ng/L B-Natriuretic Peptide 40 (<100) pg/mL Influenza Type A (PCR) NEGATIVE (Negative) Influenza Type B (PCR) NEGATIVE (Negative) RSV RNA Qual (PCR) NEGATIVE (Negative) SARS-CoV-2 RNA (RT-PCR) NEGATIVE (Negative) Independent Interpretation I performed an independent interpretation of an: EKG and Plain X-Ray Interpretation: Normal sinus rhythm heart rate 87 beats per minute normal interval normal axis no acute ST-T no acute ischemia Radiology Impression Discussion of test interpretation with radiology: I have reviewed the radiologist's reading. Discharge Plan Discharge Clinical Impression: COPD (chronic obstructive pulmonary disease) with emphysema Patient Disposition: Home, Self-Care Instructions: COPD (Chronic Obstructive Pulmonary Disease) (ED) Additional Instructions: Continue her oxygen and nebulizing treatment Follow with PCP if not better Prescriptions: No Action (DME) blood-glucose meter [FreeStyle Lite Meter] Kit See Rx Instructions .Route Qty: 1 0RF Rx Instructions: As directed atorvastatin 80 mg tablet 80 mg PO BEDTIME Qty: 90 3RF omeprazole 20 mg capsule,delayed release(DR/EC) 20 mg PO DAILY@0630 4RF metformin 1,000 mg tablet 1,000 mg PO BID Qty: 180 1RF metoprolol tartrate 25 mg tablet 25 mg PO BID Qty: 180 1RF (DME) FreeStyle Lite Strips Strip See Rx Instructions .Route Qty: 100 5RF Rx Instructions: check fasting glucose BID ac isosorbide mononitrate 30 mg tablet extended release 24 hr 30 mg PO DAILY budesonide-formoterol [Symbicort] 160-4.5 mcg/actuation Hfa Aerosol Inhaler 2 puff INHALATION DAILY glipizide 5 mg tablet 5 mg PO BID calcium carbonate-vitamin D3 600 mg-10 mcg (400 unit) tablet 1 tab PO DAILY polyethylene glycol 3350 17 gram Powder In Packet 17 g PO DAILY PRN (Reason: Constipation) Qty: 30 0RF acetazolamide 250 mg Tablet 250 mg PO DAILY Qty: 30 0RF albuterol sulfate 90 mcg/actuation HFA aerosol inhaler 2 puff PO Q4H PRN (Reason: Shortness Of Breath Or Wheezing) escitalopram oxalate 20 mg tablet 20 mg PO DAILY Qty: 30 6RF azithromycin 500 mg tablet 500 mg PO 3XW lorazepam [Ativan] 1 mg tablet 0.5 mg PO BID PRN (Reason: anxiety) Qty: 20 0RF Rx Instructions: Patient may request partial fill (DME) Oxygen Home Use Kit See Rx Instructions .Route Rx Instructions: As directed
[2023-03-14 15:06] LABS: B Type Natriuretic Peptide 40 pg/mL (<100)
== END 2023-03-14 18:34 | disposition home or self-care (01) ==
PROVIDERS: Emergency Provider Internal Medicine; PCP Internal Medicine
DX: J44.9 Chronic obstructive pulmonary disease, unspecified (principal); J43.9 Emphysema, unspecified; R53.1 Weakness; R06.02 Shortness of breath; Z20.822 Contact with and (suspected) exposure to COVID-19; Z20.828 Contact with and (suspected) exposure to other viral communicable diseases; E11.9 Type 2 diabetes mellitus without complications; I10 Essential (primary) hypertension; E78.5 Hyperlipidemia, unspecified; Z87.891 Personal history of nicotine dependence; Z99.81 Dependence on supplemental oxygen; Z79.899 Other long term (current) drug therapy; Z79.02 Long term (current) use of antithrombotics/antiplatelets; Z79.84 Long term (current) use of oral hypoglycemic drugs
CPT/HCPCS: 0241U; 36415; 71045; 80048; 83880; 84484; 85025; 93005; 99284

== ENCOUNTER → 2023-03-14 11:36 | Outpatient (BNV) | payer MEDICARE, SELFPAY | PROVIDERS: Emergency Provider Internal Medicine; PCP Internal Medicine; Visit Provider Internal Medicine | DX: R06.02 Shortness of breath (principal) | CPT/HCPCS: 93010 ==

== ENCOUNTER 2023-08-16 08:05 | Outpatient (REF) | payer MEDICARE, SELFPAY ==
[2023-08-16 10:39] LABS: MANUAL DIFF FLAG NO
[2023-08-16 10:51] LABS: Basophils Absolute Auto 0.1 X10*3/uL (0.0-0.2); Basophils Percent Auto 1.3 % (0-2); Eosinophils Absolute Auto 0.3 X10*3/uL (0.0-0.4); Eosinophils Percent Auto 5.7 % (0-4); Hematocrit 36.3 % (42.0-52.0); Hemoglobin 11.2 g/dl (14.0-18.0); Imm Gran Abs Auto 0.02 X10*3/uL (0.00-0.03); Imm Gran Pct Auto 0.4 % (0.0-0.4); Lymphocytes Absolute Auto 1.1 X10*3/uL (1.2-4.9); Lymphocytes Percent Auto 23.7 % (20-40); Mean Corpuscular HGB Conc 30.9 g/dl (31.0-36.0); Mean Corpuscular Hemoglobin 29.4 pg (27.0-33.0); Mean Corpuscular Volume 95.3 fL (80.0-98.0); Mean Platelet Volume 10.4 fL (9.4-12.4); Monocytes Absolute Auto 0.6 X10*3/uL (0.1-1.2); Monocytes Percent Auto 13.4 % (2-11); Neutrophils Absolute Auto 2.5 x10*3/uL (2.0-8.3); Neutrophils Percent Auto 55.5 % (45-73); Platelet Count 226 X10*3/uL (160-400); Red Blood Count 3.81 X10*6/uL (4.60-5.80); Red Cell Distribution Width 14.1 % (11.0-16.0); White Blood Count 4.6 X10*3/uL (4.8-10.8)
[2023-08-16 10:59] LABS: Estimated Average Glucose 174 mg/dL; Hemoglobin A1c % 7.7 % (<6.0)
[2023-08-16 11:08] LABS: Alanine Aminotransferase 13 U/L (0-40); Anion Gap 13 (12-20); Aspartate Amino Transferase 17 U/L (5-37); Blood Urea Nitrogen 11 mg/dL (9-16); Calcium 9.3 mg/dL (8.4-10.2); Carbon Dioxide 36 mmol/L (22-29); Chloride 97 mmol/L (96-108); Cholesterol 207 mg/dL (<200); Estimated Glomerular Filt Rate > 60; Glucose Fasting 148 mg/dL (60-99); HDL Cholesterol 34 mg/dL (>40); Iron 57 mcg/dL (45-160); LDL Cholesterol Calculated 149 mg/dL (<100); Percent Iron Saturation 19 % (15-50); Potassium 3.9 mmol/L (3.3-5.1); Sodium 142 mmol/L (135-145); Total Iron Binding Capacity 305 mcg/dL (228-428); Triglycerides 124 mg/dL (<150); Unsaturated Iron Binding 248 ug/dL
== END 2023-08-16 08:06 | disposition home or self-care (01) ==
LOC: HO.HMGCLDS 08:05
PROVIDERS: PCP Internal Medicine; Visit Provider Internal Medicine
DX: E11.65 Type 2 diabetes mellitus with hyperglycemia (principal); E78.5 Hyperlipidemia, unspecified; D64.9 Anemia, unspecified; I25.10 Atherosclerotic heart disease of native coronary artery without angina pectoris; I77.9 Disorder of arteries and arterioles, unspecified; J44.9 Chronic obstructive pulmonary disease, unspecified
CPT/HCPCS: 36415; 80048; 80061; 83036; 83540; 84450; 84460; 85025

== ENCOUNTER 2023-09-16 11:44 | Outpatient (AMB) | payer MEDICARE, SELFPAY ==
[2023-09-16 11:51] VITALS: BP 120/60; PULSE 71; O2SAT 90; BMI 32.4
--- NOTE | 2023-09-16 11:51 | MHC.PC.OV ---
Vital Signs 09/16/23 11:51 Height 5 ft 5 in Weight 195 lb BMI 32.4 BP 120/60 Blood Pressure Location Lt brachial Position Sitting Pulse 71 Pulse Source Pulse Oximeter Pulse Oximetry (%) 90 L Oxygen Delivery Method Nasal Cannula Intake Visit Reasons: 3 month follow up Intake Note: Pt is here today for 3 months f/u Allergies fluticasone furoate [From Trelegy Ellipta] Allergy (Intermediate, Verified 01/07/24 10:15) Rash vilanterol [From Trelegy Ellipta] Allergy (Intermediate, Verified 01/07/24 10:15) Rash umeclidinium [Incruse Ellipta] Allergy (Unknown, Verified 01/07/24 10:15) Hives furosemide [From Lasix] Adverse Reaction (Intermediate, Verified 01/07/24 10:15) Hallucinations Medication List - Last Reconciled 09/16/23 by Anne-Marie Muro MD albuterol sulfate 90 mcg/actuation 2 puffs PO Q4H PRN atorvastatin 80 mg PO BEDTIME blood sugar diagnostic (FreeStyle Lite Strips) check fasting glucose once a day blood-glucose meter (FreeStyle Lite Meter kit) As directed budesonide-formoterol 160-4.5 mcg/actuation (Symbicort) 2 puffs inhalation DAILY calcium carbonate-vitamin D3 600 mg-10 mcg (400 unit) 1 tab PO DAILY escitalopram oxalate 20 mg PO DAILY glipizide 5 mg PO BID isosorbide mononitrate ER 30 mg PO DAILY lancets (FreeStyle Lancets) Test blood sugar once a day lorazepam (Ativan) 0.5 mg (1/2 x 1 mg) PO BID PRN metformin 1,000 mg PO BID metoprolol tartrate 25 mg PO BID omeprazole 20 mg PO DAILY@0630 Oxygen Home Use As directed polyethylene glycol 3350 17 grams PO DAILY PRN Tobacco use date assessed: 03/04/23 Dental Screening Dental Screen Date: 03/04/23 HPI 3 month follow up HPI Details 73-year-old male with history of recurrent acute on chronic combined respiratory failure secondary to COPD, with hypoxia and hypercapnia on 3 L nasal cannula at rest and 4 L on exertion, 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 Was recently admitted at [facility] 07/2023 for acute exacerbation of COPD, treated with p.o. steroids, bronchodilators, doxycycline and was on a noninvasive ventilator, with improvement of symptoms. Was discharged on a noninvasive ventilator for better gas exchange. At present patient states that he is breathing easier, denies any fever, chest pain or lightheadedness, no episodes of confusion reported. [facility] Medical History Respiratory failure with hypoxia and hypercapnia Bilateral carotid artery disease CAD (coronary artery disease) Anxiety and depression Constipation Anemia Chronic respiratory failure with hypoxia and hypercapnia Radiation fibrosis of lung Acute on chronic respiratory failure with hypoxia and hypercapnia HTN (hypertension) Dyslipidemia History of pneumonia Bacteremia due to Enterococcus COPD, severe Diabetes mellitus with hyperglycemia, without long-term current use of insulin Urinary incontinence Asthma Lung cancer Skin cancer Surgical History Hx of heart artery stent History of esophagogastroduodenoscopy (EGD) Hx of colonoscopy Family History Father Medical history non-contributory Mother Medical history non-contributory Unknown family medical history Lung collapse Brother No problems noted. Brother No problems noted. Son Substance use disorder Son No problems noted. Daughter No problems noted. Sister No problems noted. Sister No problems noted. Sister No problems noted. Sister No problems noted. Other HTN (hypertension) Social History Household Members: Spouse Household Members Other:: grandson Housing: Apartment Are you a primary wound care specialist to a significant other at home: No Do you presently have visiting nurse or other home services: No Alcohol intake: never Patient Tobacco Use Status: Former Tobacco user Tobacco use type: Cigarette e-Cigarette/Vaping Use: Never Used Advance Directives Date on File: 06/08/22 service: No Current occupational status: retired Cognitive needs: No Hearing needs: No Vision needs: No Questionnaire Thrive Questionnaire Date Thrive assessed: 02/19/23 SAUMYA-7 AMB Questionnaire SAUMYA-7 Date SAUMYA - 7 assessed: 09/21/22 Source: Developed by Aneesh Guevaraet B.W. Chad, Reinaldo Suero and colleagues, with an educational lolita from [employer]. Review of Systems Const Denies fever(s), Denies frequent falls and Denies headache(s) Eyes Reports no additional complaints ENT Reports dizziness (Occasional), Denies headache(s), Denies nasal congestion, Denies nose pain, Denies post nasal drip and Denies sinus pain Card Denies chest pain, Denies edema, Denies palpitations and Reports dyspnea on exertion Resp Reports dyspnea on exertion GI Denies melena, Denies hematochezia, Denies change in bowel habits and Denies heartburn Denies difficulty urinating and Reports urinary frequency Musc Reports arthralgias, Denies joint swelling and Reports stiffness Neuro Reports dizziness (Occasional), Denies frequent falls and Denies headache(s) Psych Reports no additional complaints and Reports anxiety Endo Reports polydipsia, Reports polyuria and Denies palpitations John/Lymph Denies easy bleeding and Reports easy bruising Aller/Immun Reports no additional complaints Physical exam (Primary Care) Vital Signs: Last Vital Signs Pulse 71 09/16/23 11:51 BP 120/60 09/16/23 11:51 Pulse Ox 90 L 09/16/23 11:51 Oxygen Delivery Method Nasal Cannula 09/16/23 11:51 BMI result Body Mass Index 32.4 Tobacco/Smoking Status: Tobacco use Status Tobacco use date assessed 03/04/23 09/16/23 11:51 Patient Tobacco Use Status Former Tobacco user 09/16/23 11:51 Tobacco use type Cigarette 09/16/23 11:51 e-Cigarette/Vaping Use Never Used 09/16/23 11:51 Thrive Assessment: Date of Thrive Assessment Date Thrive assessed 02/19/23 09/16/23 11:51 Const Other: Accompanied by General: no acute distress, alert and awake Orientation/consciousness: patient oriented x3 HENMT Head: Yes normocephalic Ears: external ears normal General nose exam: Normal external nose present Face and sinus: Yes face symmetric Mouth: Normal oral and palatal mucosa present and moist mucous membranes Neck Neck: Yes full ROM, Yes no lymphadenopathy and Yes supple Resp Other: Diminished breath sounds bilateral, no wheezing, on continuous O2 by nasal cannula at 3 L Cardio Rate: regular rate Rhythm: regular rhythm Heart sounds: S1 normal heart sound present and S2 normal heart sound present GI Inspection: Yes obesity Palpation (GI): Soft to palpation, nontender, no guarding and no masses Neuro General: patient oriented x3, moves all extremities, no focal motor deficits and CN's II-XI intact bilaterally Extrem General: Yes full ROM, Yes no joint enlargement and Yes no pedal edema Psych Appearance: grossly normal and well kempt Mental Status: mental status grossly normal Speech and movement: Normal speech and movement present Affect: normal affect Results Reviewed Results Reviewed: Laboratory Tests 08/16/23 08:10 Estimat Average Glucose 174 Hemoglobin A1c % 7.7 H Name: Fitz Reed Age/Sex: 73/M : 1950 Unit#: [id number] Attend Dr: Anne-Marie Muro MD Re08/16/23 Status: DEP REF Location: [facility] Disch: SPEC : [id number] PIPO: 08/16/23 STATUS: COMP REQ : [id number] RECD: 08/16/23-[address]: Anne-Marie Muro MD COMP: 08/16/23-1107 ENTERED: 08/16/23-[address]: ORDERED: Met Prof Fast, IRON PROF, AST, ALT, Lipid Panel Test Result Flag Reference Sodium 142 135-145 mmol/L Potassium 3.9 3.3-5.1 mmol/L CL 97 96-108 mmol/L CO2 36 H 22-29 mmol/L Gap 13 12-20 BUN 11 9-16 mg/dL Creat 0.84 0.5-1.4 mg/dL EGFR > 60 NOTE: For -Palest[place] individuals, multiply the result by 1.210. Chronic Kidney Disease: Estimated GFR < 60 mL/min/1.73m2 Severe Kidney Disease: Estimated GFR < 15 mL/min/1.73m2 FBS 148 H 60-99 mg/dL A fasting glucose of 126 mg/dl or greater on more than one occasion is considered diagnostic of diabetes. CA 9.3 8.4-10.2 mg/dL Iron 57 45-160 mcg/dL TIBC 305 228-428 mcg/dL Saturation 19 15-50 % UIBC 248 ug/dL AST (GOT) 17 5-37 U/L ALT (GPT) 13 0-40 U/L Triglyceride 124 <150 mg/dL Desirable Triglyceride: less than 150 mg/dL Borderline High Triglyceride 150-199 mg/dL High Triglyceride: 200-499 mg/dL Very High Triglyceride: greater than or equal to 5OO mg/dL Cholesterol 207 H <200 mg/dL Desirable Cholesterol: less than 200 mg/dL Borderline High Cholesterol: 200-239 mg/dL High Cholesterol: greater than 239 mg/dL LDL Calculated 149 H <100 mg/dL Desirable LDL: less than 100 mg/dL Near Optimal/Above Optimal LDL: 110-129 mg/dL Borderline High LDL: 130-159 mg/dL High LDL: 160-189 mg/dL Very High LDL: greater than or equal to 190 mg/dL HDL 34 L >40 mg/dL Desirable HDL: greater than 40 mg/dL Note: This HDL assay may give artificially low results in patients with liver disease. Name: Fitz Reed Age/Sex: 73/M : 1950 Unit#: [id number] Attend Dr: Anne-Marie Muro MD Re08/16/23 Status: DEP [facility] Disch: SPEC : [id number] PIPO: 08/16/23 STATUS: COMP REQ : [id number] RECD: 08/16/[address]: Anne-Marie Muro MD COMP: 08/16/23 ENTERED: 08/16/[address]: ORDERED: CBC Auto Diff Test Result Flag Reference WBC 4.6 L 4.8-10.8 X10*3/uL RBC 3.81 L 4.60-5.80 X10*6/uL HGB 11.2 L 14.0-18.0 g/dl HCT 36.3 L 42.0-52.0 % MCV 95.3 80.0-98.0 fL MCH 29.4 27.0-33.0 pg MCHC 30.9 L 31.0-36.0 g/dl RDW 14.1 11.0-16.0 % PLT 226 # 160-400 X10*3/uL MPV 10.4 9.4-12.4 fL Neut Pct Auto 55.5 45-73 % ImGran Pct Auto 0.4 0.0-0.4 % Lymp Pct Auto 23.7 20-40 % [place]anan Pct Auto 13.4 H 2-11 % Eos Pct Auto 5.7 H 0-4 % Baso Pct Auto 1.3 0-2 % NRBC Pct Auto 0.0 0.0-0.2 /100WBC ANC Neut Abs # 2.5 2.0-8.3 x10*3/uL ImGran Abs Auto 0.02 0.00-0.03 X10*3/uL Lymph Abs Auto 1.1 L 1.2-4.9 X10*3/uL [place] Abs Auto 0.6 0.1-1.2 X10*3/uL Eos Abs Auto 0.3 0.0-0.4 X10*3/uL Baso Abs Auto 0.1 0.0-0.2 X10*3/uL NRBC Abs Auto 0.000 0.0-0.012 X10*3/uL Coding Level of Care Code Est Pt Level 4 (50627) Complex EM visit Add On G2211 Diagnoses COPD, severe J44.9 Type 2 diabetes mellitus with hyperglycemia, without long-term current use of insulin E11.65 Diabetes mellitus type: type 2 Dyslipidemia E78.5 Anxiety and depression F41.9; F32.A Anemia D64.9
== END 2023-09-16 13:36 | disposition home or self-care (01) ==
PROVIDERS: PCP Internal Medicine; Visit Provider Internal Medicine
DX: J44.9 Chronic obstructive pulmonary disease, unspecified (principal); E11.65 Type 2 diabetes mellitus with hyperglycemia; J96.20 Acute and chronic respiratory failure, unspecified whether with hypoxia or hypercapnia; E78.5 Hyperlipidemia, unspecified; F41.9 Anxiety disorder, unspecified; F32.A Depression, unspecified; D64.9 Anemia, unspecified
CPT/HCPCS: 99214; G2211

== ENCOUNTER 2023-10-28 08:46 | Outpatient (AMB) | payer MEDICARE, SELFPAY ==
[2023-10-28 09:07] VITALS: BP 80/54; PULSE 68; O2SAT 92; BMI 31.6
--- NOTE | 2023-10-28 09:07 | MHC.PC.OV ---
Vital Signs 10/28/23 09:07 Height 5 ft 5 in Weight 190 lb BMI 31.6 BP 80/54 L Blood Pressure Location Rt brachial Position Sitting Pulse 68 Pulse Source Pulse Oximeter Pulse Oximetry (%) 92 Oxygen Delivery Method Room Air Intake Visit Reasons: F SOB Madeline Intake Note: Pt is here today for his HDSallie aguiar SOB Allergies fluticasone furoate [From Trelegy Ellipta] Allergy (Intermediate, Verified 10/28/23 09:29) Rash vilanterol [From Trelegy Ellipta] Allergy (Intermediate, Verified 10/28/23 09:29) Rash umeclidinium [Incruse Ellipta] Allergy (Unknown, Verified 10/28/23 09:29) Hives furosemide [From Lasix] Adverse Reaction (Intermediate, Verified 10/28/23 09:29) Hallucinations Medication List - Last Reconciled 10/28/23 by Anne-Marie Muro MD albuterol sulfate 90 mcg/actuation 2 puffs PO Q4H PRN atorvastatin 80 mg PO BEDTIME blood sugar diagnostic (FreeStyle Lite Strips) check fasting glucose once a day blood-glucose meter (FreeStyle Lite Meter kit) As directed budesonide-formoterol 160-4.5 mcg/actuation (Symbicort) 2 puffs inhalation DAILY calcium carbonate-vitamin D3 600 mg-10 mcg (400 unit) 1 tab PO DAILY escitalopram oxalate 20 mg PO DAILY glipizide 5 mg PO BID ipratropium-albuterol 0.5 mg-3 mg(2.5 mg base)/3 mL 3 mL inhalation Q6H PRN lancets (FreeStyle Lancets) Test blood sugar once a day lorazepam (Ativan) 0.5 mg (1/2 x 1 mg) PO BID PRN metformin 1,000 mg PO BID metoprolol tartrate 25 mg PO BID omeprazole 20 mg PO DAILY@0630 Oxygen Home Use As directed Tobacco use date assessed: 10/28/23 Fall risk assessment: No Falls in past year Last assessed Fall Risk: 10/28/23 Dental Screening [facility] HPI Details 73-year-old male here today for follow-up after recent admission at [facility] due to a period of unresponsiveness. He was found to have CO2 narcosis, had acute on chronic respiratory failure with hypoxemia and hypercapnia. He was empirically treated with doxycycline, Solu-Medrol continued on BiPAP/CPAP nightly during his stay . He was referred to physical therapy to increase mobility . At present he feels almost back to baseline, but is on continuous O2 at 3 L by nasal cannula. [facility] Medical History Respiratory failure with hypoxia and hypercapnia Bilateral carotid artery disease CAD (coronary artery disease) Anxiety and depression Constipation Anemia Chronic respiratory failure with hypoxia and hypercapnia Radiation fibrosis of lung Acute on chronic respiratory failure with hypoxia and hypercapnia HTN (hypertension) Dyslipidemia History of pneumonia Bacteremia due to Enterococcus COPD, severe Diabetes mellitus with hyperglycemia, without long-term current use of insulin Urinary incontinence Asthma Lung cancer Skin cancer Surgical History Hx of heart artery stent History of esophagogastroduodenoscopy (EGD) Hx of colonoscopy Family History Father Medical history non-contributory Mother Medical history non-contributory Unknown family medical history Lung collapse Brother No problems noted. Brother No problems noted. Son Substance use disorder Son No problems noted. Daughter No problems noted. Sister No problems noted. Sister No problems noted. Sister No problems noted. Sister No problems noted. Other HTN (hypertension) Social History Household Members: Spouse Household Members Other:: grandson Housing: Apartment Are you a primary career resource technician to a significant other at home: No Do you presently have visiting nurse or other home services: No Alcohol intake: never Patient Tobacco Use Status: Former Tobacco user Tobacco use type: Cigarette e-Cigarette/Vaping Use: Never Used Advance Directives Date on File: 06/08/22 service: No Current occupational status: retired Cognitive needs: No Hearing needs: No Vision needs: No Questionnaire Thrive Questionnaire Date Thrive assessed: 02/19/23 I am a: Parent/Caregiver What is your living situation today?: I have a steady place to live Within the past 12 months, did the food you bought not last and you didn't have the money to get more?: Sometimes True Within the past 12 months, did you worry whether your food would run out before you got money to buy more?: Sometimes True Do you have trouble paying for medicines?: No Do you have trouble getting transportation to medical appointments?: No Do you have trouble paying your heating and electricity bill?: No Do you have trouble taking care of your child, family member or friend?: Yes Do you have trouble with day-to-day activities such as bathing, preparing meals, shopping, managing finances, etc.?: Yes Are you currently unemployed and looking for a job?: No Are you interested in more education?: No Please select the resources that you would like help with: Housing/Penitentiary Currently or been in a relationship where the following occur: No concerns reported THRIVE Score: 2 AUDIT C Alcohol Use Questionnaire (AUDIT-C) 1. How often do you have a drink containing alcohol?: Never Total Score: 0 SAUMYA-7 AMB Questionnaire SAUMAY-7 Date SAUMYA - 7 assessed: 09/21/22 Feeling nervous, anxious, or on edge: 1 = Several days Not being able to stop or control worryin = Several days Worrying too much about different things: 1 = Several days Trouble relaxin = Several days Being so restless that it is hard to sit still: 0 = Not at all Becoming easily annoyed or irritable: 1 = Several days Feeling afraid as if something awful might happen: 1 = Several days Total SAUMYA-7 score (0-4 normal; 5-9 mild; 10-14 moderate; 15-21 severe): 6 Source: Developed by Drs. Finn Stevens, Klaudia Bonilla, Reinaldo Suero and colleagues, with an educational lolita from [employer]. Review of Systems Const Reports fatigue, Denies fever(s), Denies frequent falls and Denies headache(s) Eyes Reports no additional complaints ENT Reports dizziness (Occasional), Denies headache(s), Denies nasal congestion, Denies nose pain, Denies post nasal drip and Denies sinus pain Card Denies chest pain, Denies edema, Denies palpitations and Reports dyspnea on exertion Resp Details: Has O2 nasal cannula when at home Reports dyspnea on exertion GI Denies melena, Reports bloating, Denies hematochezia, Denies change in bowel habits and Denies heartburn Denies difficulty urinating and Reports urinary frequency Musc Reports arthralgias, Denies joint swelling and Reports stiffness Neuro Reports dizziness (Occasional), Denies frequent falls and Denies headache(s) Psych Reports no additional complaints and Reports anxiety Endo Reports fatigue, Reports polydipsia, Reports polyuria and Denies palpitations John/Lymph Denies easy bleeding and Reports easy bruising Aller/Immun Reports no additional complaints Physical exam (Primary Care) Vital Signs: Last Vital Signs Pulse 68 10/28/23 09:07 BP 80/54 L 10/28/23 09:07 Pulse Ox 92 10/28/23 09:07 Oxygen Delivery Method Room Air 10/28/23 09:07 BMI result Body Mass Index 31.6 Tobacco/Smoking Status: Tobacco use Status Tobacco use date assessed 10/28/23 10/28/23 09:19 Patient Tobacco Use Status Former Tobacco user 10/28/23 09:08 Tobacco use type Cigarette 10/28/23 09:08 e-Cigarette/Vaping Use Never Used 10/28/23 09:08 PHQ-9: PHQ-9 Score PHQ-9: Total score 17 10/28/23 09:43 Thrive Assessment: Date of Thrive Assessment Date Thrive assessed 02/19/23 10/28/23 09:08 Currently or been in a relationship where the following occur: No concerns reported Const Other: Accompanied by General: no acute distress, alert and awake Orientation/consciousness: patient oriented x3 HENMT Head: Yes normocephalic Ears: external ears normal General nose exam: Normal external nose present Face and sinus: Yes face symmetric Mouth: Normal oral and palatal mucosa present and moist mucous membranes Neck Neck: Yes full ROM, Yes no lymphadenopathy and Yes supple Resp Other: Diminished breath sounds bilateral, no wheezing, on continuous O2 by nasal cannula at 3 L Cardio Rate: regular rate Rhythm: regular rhythm Heart sounds: S1 normal heart sound present and S2 normal heart sound present GI Inspection: Yes obesity Palpation (GI): Soft to palpation, nontender, no guarding and no masses Neuro General: patient oriented x3, moves all extremities, no focal motor deficits and CN's II-XI intact bilaterally Extrem General: Yes full ROM, Yes no joint enlargement and Yes no pedal edema Assessment and Plan Assessment & Plan (1) Acute exacerbation of chronic obstructive pulmonary disease: Code(s): J44.1 - Chronic obstructive pulmonary disease with (acute) exacerbation Plan: Continue with Symbicort 2 puffs twice a day, continue with albuterol inhaler as needed for episodes of wheezing, also has nebulizer and uses DuoNeb every 6 hours as needed for acute onset wheezing and bronchospasm. Currently followed by Dr. Marr, has an appointment coming up. Stressed importance of getting some form of exercise. To improve breathing Coding Level of Care Code Est Pt Level 4 (85069) Complex EM visit Add On G2211 Diagnoses Acute exacerbation of chronic obstructive pulmonary disease J44.1
== END 2023-10-28 09:45 | disposition home or self-care (01) ==
PROVIDERS: PCP Internal Medicine; Visit Provider Internal Medicine
DX: J44.1 Chronic obstructive pulmonary disease with (acute) exacerbation (principal)
CPT/HCPCS: 99214; G2211

== ENCOUNTER 2023-12-17 08:37 | Outpatient (REF) | payer MEDICARE, SELFPAY ==
[2023-12-17 10:06] LABS: MANUAL DIFF FLAG NO
[2023-12-17 10:17] LABS: Basophils Absolute Auto 0.1 X10*3/uL (0.0-0.2); Basophils Percent Auto 1.4 % (0-2); Eosinophils Absolute Auto 0.3 X10*3/uL (0.0-0.4); Eosinophils Percent Auto 5.9 % (0-4); Hematocrit 36.1 % (42.0-52.0); Hemoglobin 11.1 g/dl (14.0-18.0); Imm Gran Abs Auto 0.01 X10*3/uL (0.00-0.03); Imm Gran Pct Auto 0.2 % (0.0-0.4); Lymphocytes Absolute Auto 1.1 X10*3/uL (1.2-4.9); Lymphocytes Percent Auto 21.7 % (20-40); Mean Corpuscular HGB Conc 30.7 g/dl (31.0-36.0); Mean Corpuscular Hemoglobin 28.5 pg (27.0-33.0); Mean Corpuscular Volume 92.8 fL (80.0-98.0); Mean Platelet Volume 10.5 fL (9.4-12.4); Monocytes Absolute Auto 0.7 X10*3/uL (0.1-1.2); Monocytes Percent Auto 12.7 % (2-11); Neutrophils Percent Auto 58.1 % (45-73); Platelet Count 230 X10*3/uL (160-400); Red Blood Count 3.89 X10*6/uL (4.60-5.80); Red Cell Distribution Width 14.5 % (11.0-16.0); White Blood Count 5.1 X10*3/uL (4.8-10.8)
[2023-12-17 10:36] LABS: Estimated Average Glucose 189 mg/dL; Hemoglobin A1c % 8.2 % (<6.0)
[2023-12-17 10:52] LABS: Alanine Aminotransferase 14 U/L (0-40); Anion Gap 13 (12-20); Aspartate Amino Transferase 14 U/L (5-37); Blood Urea Nitrogen 10 mg/dL (9-16); Calcium 9.7 mg/dL (8.4-10.2); Carbon Dioxide 32 mmol/L (22-29); Chloride 101 mmol/L (96-108); Cholesterol 227 mg/dL (<200); Estimated Glomerular Filt Rate > 60; Glucose Fasting 148 mg/dL (60-99); HDL Cholesterol 42 mg/dL (>40); Iron 68 mcg/dL (45-160); LDL Cholesterol Calculated 168 mg/dL (<100); Percent Iron Saturation 21 % (15-50); Potassium 4.3 mmol/L (3.3-5.1); Sodium 142 mmol/L (135-145); Total Iron Binding Capacity 319 mcg/dL (228-428); Triglycerides 88 mg/dL (<150); Unsaturated Iron Binding 251 ug/dL
[2023-12-17 10:56] LABS: Vitamin D 25-OH Total 35.9 ng/mL (>30)
[2023-12-17 12:24] LABS: Creatinine Urine 77.84 mg/dL; Microalbum/Creatinine Ratio Ur 19.2 ug/mg cr (<30)
== END 2023-12-17 08:38 | disposition home or self-care (01) ==
LOC: HO.HMGCLDS 08:37
PROVIDERS: PCP Internal Medicine; Visit Provider Internal Medicine
DX: F41.9 Anxiety disorder, unspecified (principal); F32.A Depression, unspecified; E11.65 Type 2 diabetes mellitus with hyperglycemia; D64.9 Anemia, unspecified; E78.5 Hyperlipidemia, unspecified; J44.9 Chronic obstructive pulmonary disease, unspecified
CPT/HCPCS: 36415; 80048; 80061; 82043; 82306; 82570; 83036; 83540; 84450; 84460; 85025

== ENCOUNTER 2024-01-07 09:40 | Outpatient (AMB) | payer MEDICARE, SELFPAY ==
[2024-01-07 09:55] VITALS: BP 92/52; PULSE 77; O2SAT 93; BMI 33.4
--- NOTE | 2024-01-07 09:55 | A.OFFVIS_ITS ---
Intake Vital Signs 01/07/24 09:55 Height 5 ft 5 in Weight 201 lb BMI 33.4 BP 92/52 L Blood Pressure Location Lt brachial Position Sitting Pulse 77 Pulse Source Pulse Oximeter Pulse Oximetry (%) 93 Oxygen Delivery Method Nasal Cannula Intake Visit Reasons: NAVEEN G0439 Intake Note: Pt is here today for her SWV Allergies fluticasone furoate [From Trelegy Ellipta] Allergy (Intermediate, Verified 01/07/24 10:15) Rash vilanterol [From Trelegy Ellipta] Allergy (Intermediate, Verified 01/07/24 10:15) Rash umeclidinium [Incruse Ellipta] Allergy (Unknown, Verified 01/07/24 10:15) Hives furosemide [From Lasix] Adverse Reaction (Intermediate, Verified 01/07/24 10:15) Hallucinations Medication List - Last Reconciled 01/07/24 by Anne-Marie Muro MD albuterol sulfate 90 mcg/actuation (Ventolin HFA) 2 puffs inhalation Q4-6H PRN albuterol sulfate 90 mcg/actuation 2 puffs PO Q4H PRN atorvastatin 80 mg PO BEDTIME blood sugar diagnostic (FreeStyle Lite Strips) check fasting glucose once a day blood-glucose meter (FreeStyle Lite Meter kit) As directed budesonide-formoterol 160-4.5 mcg/actuation (Symbicort) 2 puffs inhalation DAILY calcium carbonate-vitamin D3 600 mg-10 mcg (400 unit) 1 tab PO DAILY escitalopram oxalate 20 mg PO DAILY glipizide 5 mg PO BID ipratropium-albuterol 0.5 mg-3 mg(2.5 mg base)/3 mL 3 mL inhalation Q6H PRN lancets (FreeStyle Lancets) Test blood sugar once a day lorazepam (Ativan) 0.5 mg (1/2 x 1 mg) PO BID PRN metformin 1,000 mg PO BID metoprolol tartrate 25 mg PO BID omeprazole 20 mg PO DAILY@0630 Oxygen Home Use As directed HPI [facility] G0439 HPI Details SWV ?73 year old male presents for subsequent? Annual Wellness Visit.? His last colonoscopy screening was done 04/25/[address] Paul Lazar, with removal of hyperplastic polyp. He states that he no longer is able to get colonoscopies due to his severe COPD. He has had flu vaccine and Pneumovax 23 in the past but no longer wants to get any vaccines including COVID vaccine. He had a fasting lipid panel done 12/17/2023 which came back with elevated LDL cholesterol, and hemoglobin A1c was elevated at 8.2% with a fasting glucose of 148 mg/dL done at same day . Goes to [facility] for his diabetes retinopathy screening, currently up-to-date. ? Medical / Social History Reviewed? Past Medical History ?Yes . ? [place] of Care / Care Team list updated ?Yes . ? Surgical/Hospitalization History ?Yes . ? Current Medications (including OTC and supplements) ?Yes . ? Family History ?Yes . ? Tobacco Control form ?Yes . ? AUDIT-C (Alcohol use) form ?Yes . ? Illicit drug use in Social History ?Yes . ? Current diagnosis of depression? Yes ? Appropriate PHQ2/PHQ9 completed ?Yes . ? Data entered by ?Reference Data Expert and reviewed by provider ? Fall Risk ? Fall History? Have you had any falls with injury in the past year? ?No . ? Have you had two or more falls in the past year? ?No . ? Fall Risk Assessment: ?No falls in the past year . ? HRA filled out by the patient, reviewed by Provider and scanned. ? IPPE/AWV ? Balance? Romberg ?Yes . ? Tandem walk ?unable ? Walk and Turn ?Yes . ? Rise from sit to stand ?Yes . ?Vision? Corrective lens ?none ? Vision screen ? Up-to-date, goes to [facility] for his routine eye exam and diabetes retinopathy screening ?Hearing? Whisper test ?pass . ?Written Plan?Completed. See Patient Documents.? HPI Comments History of Present Illness Details He is also here for follow-up on his diabetes mellitus, currently taking metformin a 1000 mg twice a day and glipizide 5 mg twice a day. Patient checks his blood sugar infrequently at home hemoglobin A1c today is at 8.2%, higher than last check. Recent fasting lipids showed poorly controlled LDL cholesterol which came back at 146 mg/dL. His already taking atorvastatin 80 mg daily at night, tries to follow recommended diet but unable to exercise much due to having severe shortness of breath on exertion, currently already on supplemental oxygen PFSH Medical History Respiratory failure with hypoxia and hypercapnia Bilateral carotid artery disease CAD (coronary artery disease) Anxiety and depression Constipation Anemia Chronic respiratory failure with hypoxia and hypercapnia Radiation fibrosis of lung Acute on chronic respiratory failure with hypoxia and hypercapnia HTN (hypertension) Dyslipidemia History of pneumonia Bacteremia due to Enterococcus COPD, severe Diabetes mellitus with hyperglycemia, without long-term current use of insulin Urinary incontinence Asthma Lung cancer Skin cancer Surgical History Hx of heart artery stent History of esophagogastroduodenoscopy (EGD) Hx of colonoscopy Family History Father Medical history non-contributory Mother Medical history non-contributory Unknown family medical history Lung collapse Brother No problems noted. Brother No problems noted. Son Substance use disorder Son No problems noted. Daughter No problems noted. Sister No problems noted. Sister No problems noted. Sister No problems noted. Sister No problems noted. Other HTN (hypertension) Social History Household Members: Spouse Household Members Other:: grandson Housing: Apartment Are you a primary critical care transport nurse to a significant other at home: No Do you presently have visiting nurse or other home services: No Alcohol intake: never Patient Tobacco Use Status: Former Tobacco user Tobacco use type: Cigarette e-Cigarette/Vaping Use: Never Used Advance Directives Date on File: 06/08/22 service: No Current occupational status: retired Cognitive needs: No Hearing needs: No Vision needs: No Questionnaire Medicare Wellness Checkup [age] What gender do you identify with?: male During the past 4 weeks, how much have you been bothered by emotional problems such as feeling anxious, depressed, irritable, sad or downhearted, and blue?: slightly During the past 4 weeks, has your physical & emotional health limited your social activities with family, friends, neighbors, or groups?: quite a bit During the past 4 weeks, how much bodily pain have you generally had?: moderate pain During the past 4 weeks, was someone available to help you if you needed & wanted help?: yes, as much as I wanted During the past 4 weeks, what was the hardest physical activity you could do for at least 2 minutes?: very light Can you get to places out of walking distance without help? (For eg., can you travel alone on buses, taxis or drive your car?): No Can you go shopping for groceries or clothes without someone's help?: No Can you prepare your own meals?: No Can you do your housework without help?: No Because of any health problems, do you need the help of another person with your personal care needs such as eating, bathing, dressing or getting around the house?: No Can you handle your own money without help?: Yes During the past 4 weeks, how would you rate your health in general?: fair During the past 4 weeks how have things been going for you?: good & bad parts about equal Are you having difficulties driving your car?: sometimes Do you always fasten your seat belt when you are in a car?: yes, usually During past 4 weeks, have you been bothered by the following: never: Trouble eating well?, Teeth or denture problems? and Problems using the telephone?, sometimes: Falling or dizzy when standing up and always: Sexual problems? and Tiredness or fatigue? Have you fallen 2 or more times in the past year?: No Are you afraid of falling?: Yes Are you a smoker?: no During the past 4 weeks, how many drinks of wine, beer, or other alcoholic beverages did you have?: no alcohol at all Do you exercise for about 20 minutes 3 or more times a week?: no, I usually do not exercise this much Have you been given information to help with the following?: yes: Hazards in your house that might hurt you? and yes: Keeping track of your medications? How often do you have trouble taking medicines the way you have been told to take them?: I always take medicine as prescribed How confident are you that you can control & manage most of your health problems?: not very confident What is your race?: White Mini Mental State Exam (MMSE) Orientation What is the (year) (season) (date) (day) (month)?: year (2023), season (fall), date (01/07/2024), day (Saturday) and month (January) Where are we (state) (county) (town or city) (hospital) (floor)?: state ([place]), [facility] ([place]), town or city ([place]) and hospital/clinic ([facility]) Score Score: 9 Activity of Daily Living Bathing - sponge bath, tub bath or shower: receives no assistance (gets in/out by self, if usual bathing means Dressing - getting clothes from closets & drawers, including inner/outer garments & fasteners.: gets clothes & gets completely dressed without help Toileting - going to the 'toilet room' for urine/bowel elimination & cleaning self/arranging clothes: goes to toilet room, cleans self, arranges clothes without help Transfer: moves in & out of bed and chair without help (may use support object) Continence: has occasional 'accidents' Feeding: feeds self without help Total Score: 0 Information obtained from: patient Using telephone: independent Traveling: needs assistance Shopping: needs assistance Preparing meals: needs assistance Housework: dependent Taking medicine: independent Managing money: independent PHQ-9 Over the last 2 weeks, how often have you been bothered by any of the following problems? 1. Little interest or pleasure in doing things: several days 2. Feeling down, depressed, or hopeless: several days 3. Trouble falling or staying asleep, or sleeping too much: more than half the days 4. Feeling tired or having little energy: more than half the days 5. Poor appetite or overeating: not at all 6. Feeling bad about yourself - or that you are a failure or have let yourself or your family down: not at all 7. Trouble concentrating on things, such as reading the newspaper or watching television: not at all 8. Moving or speaking so slowly that other people could have noticed. Or the opposite - being so fidgety or restless that you have been moving around a lot more than usual: not at all 9. Thoughts that you would be better off or of hurting yourself in some wa y: not at all Total score: 6 Depression Screening Interpretation: Positive (Currently on escitalopram 20 mg daily) Depression Screening Follow-up: Existing condition, In treatment and Community Mental Health Worker F/U Depression Screening Done: Yes Source: Developed by Drs. Finn Stevens, Klaudia Bonilla, Reinaldo Suero and colleagues, with an educational lolita from [employer]. Review of Systems Const Reports fatigue, Denies fever(s), Denies frequent falls and Denies headache(s) Eyes Reports no additional complaints ENT Reports dizziness (Occasional), Denies headache(s), Denies nasal congestion, Denies nose pain, Denies post nasal drip and Denies sinus pain Card Denies chest pain, Denies edema, Denies palpitations and Reports dyspnea on exertion Resp Details: Has O2 nasal cannula when at home Reports dyspnea on exertion GI Denies melena, Reports bloating, Denies hematochezia, Denies change in bowel habits and Denies heartburn Denies difficulty urinating and Reports urinary frequency Musc Reports arthralgias, Denies joint swelling and Reports stiffness Neuro Reports dizziness (Occasional), Denies frequent falls and Denies headache(s) Psych Reports no additional complaints and Reports anxiety Endo Reports fatigue, Reports polydipsia, Reports polyuria and Denies palpitations John/Lymph Denies easy bleeding and Reports easy bruising Aller/Immun Reports no additional complaints Physical Exam Vital Signs: Last Vital Signs Pulse 77 01/07/24 09:55 BP 92/52 L 01/07/24 09:55 Pulse Ox 93 01/07/24 09:55 Oxygen Delivery Method Nasal Cannula 01/07/24 09:55 BMI result Body Mass Index 33.4 Const Other: On 3 L supplemental oxygen by nasal cannula General: no acute distress and alert Orientation/consciousness: patient oriented x3 Limitations: ambulation with walker and other limitations HEENT Ears: external ears normal General nose exam: Normal external nose present Mouth: Normal oral and palatal mucosa present, oropharynx normal and moist mucous membranes Eyes General: appearance normal, both eyes and all related structures Neck Neck: Yes full ROM, Yes no lymphadenopathy and Yes supple Resp Effort & Inspection: normal respiratory effort and able to speak in complete sentences Auscultation: clear to auscultation bilaterally Cardio Rate: regular rate Rhythm: regular rhythm Heart sounds: S1 normal heart sound present and S2 normal heart sound present GI Palpation (GI): Soft to palpation, nontender and no masses Auscultation: normal bowel sounds Skin General skin exam: no rashes or lesions noted Neuro General: patient oriented x3, tone normal, moves all extremities, Normal light touch and pain sensation and no focal motor deficits Cranial nerves: Yes CN's II-XII intact bilaterally Cognition (Neuro): normal cognition Extrem General: Yes full ROM, Yes no joint enlargement, Yes no clubbing, cyanosis or edema and Yes no calf tenderness Psych Appearance: grossly normal and well kempt Mental Status: mental status grossly normal Speech and movement: Normal speech and movement present Affect: normal affect Attitude: cooperative Thought process: Normal thought process present Thought content: Normal thought content present Results Reviewed Results Reviewed: Name: Fitz Reed Age/Sex: 73/M : 1950 Unit#: [id number] Attend Dr: Anne-Marie Muro MD Re12/17/23 Status: DEP REF Location: [facility] Disch: SPEC : [id number] PIPO: 12/17/23 STATUS: COMP REQ : [id number] RECD: 12/17/23-[address]: Anne-Marie Muro MD COMP: 12/17/23-6 ENTERED: 12/17/[address]: ORDERED: Met Prof Fast, IRON PROF, AST, ALT, Lipid Panel, Vitamin D 25-OH Test Result Flag Reference Sodium 142 135-145 mmol/L Potassium 4.3 3.3-5.1 mmol/L CL 101 96-108 mmol/L CO2 32 H 22-29 mmol/L Gap 13 12-20 BUN 10 9-16 mg/dL Creat 0.80 0.5-1.4 mg/dL EGFR > 60 NOTE: For -[place] individuals, multiply the result by 1.210. Chronic Kidney Disease: Estimated GFR < 60 mL/m in/1.73m2 Severe Kidney Disease: Estimated GFR < 15 mL/min/1.73m2 FBS 148 H 60-99 mg/dL A fasting glucose of 126 mg/dl or greater on more than one occasion is considered diagnostic of diabetes. CA 9.7 8.4-10.2 mg/dL Iron 68 45-160 mcg/dL TIBC 319 228-428 mcg/dL Saturation 21 15-50 % UIBC 251 ug/dL AST (GOT) 14 5-37 U/L ALT (GPT) 14 0-40 U/L Triglyceride 88 <150 mg/dL Desirable Triglyceride: less than 150 mg/dL Borderline High Triglyceride 150-199 mg/dL High Triglyceride: 200-499 mg/dL Very High Triglyceride: greater than or equal to 5OO mg/dL Cholesterol 227 H <200 mg/dL Desirable Cholesterol: less than 200 mg/dL Borderline High Cholesterol: 200-239 mg/dL High Cholesterol: greater than 239 mg/dL LDL Calculated 168 H <100 mg/dL Desirable LDL: less than 100 mg/dL Near Optimal/Above Optimal LDL: 110-129 mg/dL Borderline High LDL: 130-159 mg/dL High LDL: 160-189 mg/dL Very High LDL: greater than or equal to 190 mg/dL HDL 42 >40 mg/dL Desirable HDL: greater than 40 mg/dL Note: This HDL assay may give artificially low results in patients with liver disease. Vit D 25-OH Tot 35.9 >30 ng/mL Health Based Reference Values* < 20 ng/mL Deficient 20-30 ng/mL Insufficient > 30 ng/mL Sufficient Laboratory Tests 08/16/23 12/17/23 08:10 08:42 Estimat Average Glucose 174 189 Hemoglobin A1c % 7.7 H 8.2 H robin: Fitz Reed Age/Sex: 73/M : 1950 Unit#: [id number] Attend Dr: Anne-Marie Muro MD Re12/17/23 Status: DEP REF Location: [facility] Disch: SPEC : [id number] PIPO: 12/17/23 STATUS: COMP REQ : [id number] RECD: 12/17/23-[address]: Anne-Marie Muro MD COMP: 12/17/23 ENTERED: 12/17/[address] [facility] [address]: ORDERED: CBC Auto Diff Test Result Flag Reference WBC 5.1 4.8-10.8 X10*3/ uL RBC 3.89 L 4.60-5.80 X10*6/uL HGB 11.1 L 14.0-18.0 g/dl HCT 36.1 L 42.0-52.0 % MCV 92.8 80.0-98.0 fL MCH 28.5 27.0-33.0 pg MCHC 30.7 L 31.0-36.0 g/dl RDW 14.5 11.0-16.0 % PLT 230 160-400 X10*3/uL MPV 10.5 9.4-12.4 fL Neut Pct Auto 58.1 45-73 % ImGran Pct Auto 0.2 0.0-0.4 % Lymp Pct Auto 21.7 20-40 % Dillon Pct Auto 12.7 H 2-11 % Eos Pct Auto 5.9 H 0-4 % Baso Pct Auto 1.4 0-2 % NRBC Pct Auto 0.0 0.0-0.2 /100WBC ANC Neut Abs # 3.0 2.0-8.3 x10*3/uL ImGran Abs Auto 0.01 0.00-0.03 X10*3/uL Lymph Abs Auto 1.1 L 1.2-4.9 X10*3/uL Dillon Abs Auto 0.7 0.1-1.2 X10*3/uL Eos Abs Auto 0.3 0.0-0.4 X10*3/uL Baso Abs Auto 0.1 0.0-0.2 X10*3/uL NRBC Abs Auto 0.000 0.0-0.012 X10*3/uL Assessment & Plan Assessment & Plan (1) GERD (gastroesophageal reflux disease): Comment: Continue omeprazole 20 mg once daily Code(s): K21.9 - Gastro-esophageal reflux disease without esophagitis Plan: Currently on omeprazole (2) COPD, severe: Code(s): J44.9 - Chronic obstructive pulmonary disease, unspecified Plan: Followed by Dr. Marr, on 3 L continuous oxygen supplement, uses DuoNeb by nebulizer every 6 hours as needed and Symbicort 2 puffs twice a day, has Ventolin inhaler to use as needed for episodes of bronchospasm and wheezing. Declines getting any vaccines (3) Dyslipidemia: Code(s): E78.5 - Hyperlipidemia, unspecified Plan: Currently on atorvastatin 80 mg at night. Reinforced importance of following a low-cholesterol diet and staying active (4) Anemia: Code(s): D64.9 - Anemia, unspecified Plan: Unable to get a colonoscopy screening,, Cologuard testing ordered. Iron profile on last lab was within normal (5) Diabetes mellitus with hyperglycemia, without long-term current use of insulin: Code(s): E11.65 - Type 2 diabetes mellitus with hyperglycemia Qualifiers: Diabetes mellitus type: type 2 Qualified Code(s): E11.65 - Type 2 diabetes mellitus with hyperglycemia Plan: Hemoglobin A1c is elevated at8.2 %. Will continue on metformin 1000 mg twice a day and glipizide 5 mg twice a day and will add Trulicity 0.75 mg injected subcutaneously once a week, patient given some instructions on how to use it and discussed possible side effects at may occur from taking the medication. Continue checking blood sugar at home once or twice a day and keep a record of the readings. May need to decrease or taper you off glipizide if blood sugar falls to low on Trulicity. (6) Anxiety and depression: Code(s): F41.9 - Anxiety disorder, unspecified; F32.A - Depression, unspecified Plan: Continue escitalopram 20 mg daily, and takes lorazepam as needed for acute anxiety attacks (7) CAD (coronary artery disease): Comment: s/p cardiac stent Code(s): I25.10 - Atherosclerotic heart disease of [place] coronary artery without angina pectoris Plan: Continue atorvastatin 80 mg daily (8) Encounter for subsequent annual wellness visit (AWV) in Medicare patient: Code(s): Z00.00 - Encounter for general adult medical examination without abnormal fi ndings Plan: Medicare wellness checklist reviewed with patient discussed and updated. Patient already has her healthcare proxy in place. Does not want to get any vaccinations Orders: Orders Lipid Panel 03/08/24 D64.9 - Anemia, unspecified, E78.5 - Hyperlipidemia, unspecified, J44.9 - Chronic obstructive pulmonary disease, unspecified, K21.9 - Gastro-esophageal reflux disease without esophagitis, Z00.01 - Encounter for general adult medical examination with abnormal findings, Z12.11 - Encounter for screening for malignant neoplasm of colon, Z12.12 - Encounter for screening for malignant neoplasm of rectum Alanine Aminotransferase 03/08/24 D64.9 - Anemia, unspecified, E78.5 - Hyperlipidemia, unspecified, J44.9 - Chronic obstructive pulmonary disease, unspecified, K21.9 - Gastro-esophageal reflux disease without esophagitis, Z00.01 - Encounter for general adult medical examination with abnormal findings, Z12.11 - Encounter for screening for malignant neoplasm of colon, Z12.12 - Encounter for screening for malignant neoplasm of rectum Complete Blood Count Auto Diff 03/08/24 D64.9 - Anemia, unspecified, E78.5 - Hyperlipidemia, unspecified, J44.9 - Chronic obstructive pulmonary disease, unspecified, K21.9 - Gastro-esophageal reflux disease without esophagitis, Z00.01 - Encounter for general adult medical examination with abnormal findings, Z12.11 - Encounter for screening for malignant neoplasm of colon, Z12.12 - Encounter for screening for malignant neoplasm of rectum Hemoglobin A1c 03/08/24 D64.9 - Anemia, unspecified, E78.5 - Hyperlipidemia, unspecified, J44.9 - Chronic obstructive pulmonary disease, unspecified, K21.9 - Gastro-esophageal reflux disease without esophagitis, Z00.01 - Encounter for general adult medical examination with abnormal findings, Z12.11 - Encounter for screening for malignant neoplasm of colon, Z12.12 - Encounter for screening for malignant neoplasm of rectum Microalbumin, Random (w Creat) 03/08/24 D64.9 - Anemia, unspecified, E78.5 - Hyperlipidemia, unspecified, J44.9 - Chronic obstructive pulmonary disease, unspecified, K21.9 - Gastro-esophageal reflux disease without esophagitis, Z00.01 - Encounter for general adult medical examination with abnormal findings, Z12.11 - Encounter for screening for malignant neoplasm of colon, Z12.12 - Encounter for screening for malignant neoplasm of rectum Vitamin D 25-OH Total 03/08/24 D64.9 - Anemia, unspecified, E78.5 - Hyperlipidemia, unspecified, J44.9 - Chronic obstructive pulmonary disease, u nspecified, K21.9 - Gastro-esophageal reflux disease without esophagitis, Z00.01 - Encounter for general adult medical examination with abnormal findings, Z12.11 - Encounter for screening for malignant neoplasm of colon, Z12.12 - Encounter for screening for malignant neoplasm of rectum Aspartate Amino Transferase 03/08/24 D64.9 - Anemia, unspecified, E78.5 - Hyperlipidemia, unspecified, J44.9 - Chronic obstructive pulmonary disease, unspecified, K21.9 - Gastro-esophageal reflux disease without esophagitis, Z00.01 - Encounter for general adult medical examination with abnormal findings, Z12.11 - Encounter for screening for malignant neoplasm of colon, Z12.12 - Encounter for screening for malignant neoplasm of rectum Basic Metabolic Panel Fasting 03/08/24 D64.9 - Anemia, unspecified, E78.5 - Hyperlipidemia, unspecified, J44.9 - Chronic obstructive pulmonary disease, unspecified, K21.9 - Gastro-esophageal reflux disease without esophagitis, Z00.01 - Encounter for general adult medical examination with abnormal findings, Z12.11 - Encounter for screening for malignant neoplasm of colon, Z12.12 - Encounter for screening for malignant neoplasm of rectum Referrals Cologuard Test Z12.11 - Encounter for screening for malignant neoplasm of colon, Z12.12 - Encounter for screening for malignant neoplasm of rectum Medications: New Trulicity (dulaglutide) 0.75 mg (0.5 mL) subcut QWEEK 2 mL 5RF 30 days NS Quality Reporting (2019) Depression/Bipolar (159/160/161/177) PHQ-9: Total score: 6 Coding Level of Care Code Medicare Subsequent (G0439) Est Pt Level 4 (36201) Diagnoses GERD (gastroesophageal reflux disease) K21.9 COPD, severe J44.9 Dyslipidemia E78.5 Anemia D64.9 Type 2 diabetes mellitus with hyperglycemia, without long-term current use of insulin E11.65 Diabetes mellitus type: type 2 Anxiety and depression F41.9; F32.A CAD (coronary artery disease) I25.10 Encounter for subsequent annual wellness visit (AWV) in Medicare patient Z00.00 CPT Codes Advance Care Planning - Advance Care Planning discussion: On file, no changes ([id number]) Advance Care Planning - Time spent: 1-15 minutes, on File ([id number]) Advance Care Planning Advance Care Planning discussion: On file, no changes Date of discussion: 01/07/24 Who was present: Patient and Forms completed: Health Care Proxy and MOLST Time spent: 1-15 minutes, on File Actual minutes spent: 15
== END 2024-01-07 10:40 | disposition home or self-care (01) ==
PROVIDERS: PCP Internal Medicine; Visit Provider Internal Medicine
DX: Z00.00 Encounter for general adult medical examination without abnormal findings (principal); J44.9 Chronic obstructive pulmonary disease, unspecified; E11.65 Type 2 diabetes mellitus with hyperglycemia; K21.9 Gastro-esophageal reflux disease without esophagitis; E78.5 Hyperlipidemia, unspecified; D64.9 Anemia, unspecified; F41.9 Anxiety disorder, unspecified; F32.A Depression, unspecified; I25.10 Atherosclerotic heart disease of native coronary artery without angina pectoris

== ENCOUNTER → 2024-01-07 09:40 | Outpatient (BNVA) | payer MEDICARE, SELFPAY | PROVIDERS: PCP Internal Medicine; Visit Provider Internal Medicine | DX: K21.9 Gastro-esophageal reflux disease without esophagitis (principal); J44.9 Chronic obstructive pulmonary disease, unspecified; E78.5 Hyperlipidemia, unspecified; D64.9 Anemia, unspecified; E11.65 Type 2 diabetes mellitus with hyperglycemia; F41.9 Anxiety disorder, unspecified; F32.A Depression, unspecified; I25.10 Atherosclerotic heart disease of native coronary artery without angina pectoris; Z79.85 Long-term (current) use of injectable non-insulin antidiabetic drugs | CPT/HCPCS: 99212 ==

== ENCOUNTER 2024-02-27 09:19 | Outpatient (AMB) | payer MEDICARE, SELFPAY ==
--- NOTE | 2024-02-27 09:22 | A.OFFVIS_ITS ---
Vital Signs 02/27/24 09:24 Height 5 ft 5 in Weight 200 lb BMI 33.3 BP 92/50 L Blood Pressure Location Lt brachial Position Sitting Pulse 76 Pulse Oximetry (%) 92 Intake Visit Reasons: fecal abnormalities Intake Note: Patient follow up for Abdominal distension. Patient cc: abdominal discomfort, some difficulty swallowing pills, SOB, dizziness, tiredness and some fatigue. 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: No Accompanied by: Family/Other Allergies fluticasone furoate [From Trelegy Ellipta] Allergy (Intermediate, Verified 02/27/24 09:22) Rash vilanterol [From Trelegy Ellipta] Allergy (Intermediate, Verified 02/27/24 09:22) Rash umeclidinium [Incruse Ellipta] Allergy (Unknown, Verified 02/27/24 09:22) Hives furosemide [From Lasix] Adverse Reaction (Intermediate, Verified 02/27/24 09:22) Hallucinations Medication List - Last Reconciled 02/27/24 by Kevin Corcoran MD albuterol sulfate 90 mcg/actuation (Ventolin HFA) 2 puffs inhalation Q4-6H PRN albuterol sulfate 90 mcg/actuation 2 puffs PO Q4H PRN atorvastatin 80 mg PO BEDTIME blood sugar diagnostic (FreeStyle Lite Strips) check fasting glucose twice per day blood-glucose meter (FreeStyle Lite Meter kit) As directed budesonide-formoterol 160-4.5 mcg/actuation (Symbicort) 2 puffs inhalation DAILY calcium carbonate-vitamin D3 600 mg-10 mcg (400 unit) 1 tab PO DAILY escitalopram oxalate 20 mg PO DAILY glipizide 5 mg PO BID ipratropium-albuterol 0.5 mg-3 mg(2.5 mg base)/3 mL 3 mL inhalation Q6H PRN lancets (FreeStyle Lancets) Test blood sugar twice lorazepam (Ativan) 0.5 mg (1/2 x 1 mg) PO BID PRN metformin 1,000 mg PO BID metoprolol tartrate 25 mg PO BID omeprazole 20 mg PO DAILY@0630 Oxygen Home Use As directed Trulicity (dulaglutide) 0.75 mg (0.5 mL) subcut QWEEK 30 days NS HPI HPI fecal abnormalities: Details: 74-YEAR-OLD MALE FOR FOLLOW-UP OF HEPATIC CIRRHOSIS AND GALLBLADDER POLYP (not seen on his most recent US and felt to be ? a sludge ball). Pt has COPD and is on Home O2 at 3 L/min by nasal cannula. Last seen in GI clinic in 12/2021 Referred by PCP for a positive Cologuard test ? CHRONIC ILLNESSES:?COPD, CAD, Hypertension and type 2 DM with recent chronic diarrhea TODAY'S VISIT Pt is accompanied by his feels weird inside my stomach, no pain, ? bloating Denies heartburn, dysphagia, diarrhea, constipation or rectal bleeding. Denies change in appetite or weight. Complains of fatigue. Diarrhea has improved. Feels short of breath on walking and climbing stairs. ? PAST VISIT: Having intermittent hallucinations Hospitalized in 11/28 TO 12/02/21 with COPD exacerbation. ? Has dizziness, abdominal pain come and go, diarrhea. Denies any constipation, N+V, or GERD. ? Not going out much. ? Did not have the COVID vaccine due to concern for side effects. ? Feeling short of breath and planning to go to the ED for a breathing treatment. ? Diarrhea is not too bad. ? Takes a medication three times a week to clean out his intestines ?Diarrhea only a couple of times since he started taking a new medication - daliresp for COPD, azithromycin and prednisone. ? Continues to have a hard time breathing and unable to walk too far. ? Gets diarrhea once in a while - not too often. ? Unable to identify any precipitating foods. ? Stopped taking the citrucil and has not had diarrhea in a while. ? Still has a big?appetite [facility]: H & H 12.8 & 41.6, plt 179, INR 1.0, Normal LFTs, albumin 4.5. ? Stool fat was elevated. ? 10/2017: Liver Fibrosis Score 0.21, Fibrosis Stage F0 ? 07/08/18: Stool fat was elevated ? IMAGING STUDIES: 09/2021 ABD US SHOWED: GALLBLADDER: The gallbladder is nondistended due to early breakfast. The gallbladder appears contracted without evidence of stones, sludge, polyps, or pericholecystic fluid. A mass seen within the gallbladder on ultrasound 08/26/2020 is not visualized on the present exam. Probably was a sludge ball. COMMON BILE DUCT: Normal in caliber measuring 1.1 cm in diameter. IMPRESSION: 1. Echogenic mobile structures seen in the gallbladder lumen is not seen at this time. The gallbladder is contracted due to early breakfast prior to the exam. ? 2. The body and tail of the pancreas are not seen. The head appears unremarkable. ? 3. There is echogenic calcification, midpole right kidney. 08/26/20 ABD US SHOWED: GALLBLADDER: There is an echogenic mobile mass measuring 4.8 x 1.4 x 1.9 cm, question polyp versus large sludge or mass. The gallbladder is physiologically distended without evidence of stones or pericholecystic fluid. There is mild gallbladder wall thickness measuring 0.45 cm. COMMON BILE DUCT: CBD is mildly dilated measuring 1.1 cm in diameter. FREE FLUID: None. IMPRESSION: Echogenic mobile mass measuring 4.8 x 1.4 x 1.9 cm. Large sludge, polyp versus mass. Mild gallbladder wall thickening measuring 0.45 cm. ? Mild dilated CBD measuring 1.1 cm. 01/01/2020 Abd US showed: ? IMPRESSION: ? 1.? Diffuse hepatic steatosis with focal fatty sparing in right hepatic lobe. ? 2.? Dilated CBD measuring 1.4 cm with question of sludge, radiolucent stone or mass in the distal CBD ? 3.? The rest of abdominal ultrasound is unremarkable ?01/05/20 ABDOMINAL MRI SHOWED: ? ? ? Limited exam due to motion artifact.? Increasing biliary duct dilation.? Common bile duct measures 1.4 cm. ? ? ? The common bile duct is dilated down to the head of the pancreas where it tapers smoothly. ? ? ? No stone/filling defect or masses seen.? Normal appearing gallbladder.? No gallstones seen. ? ? ? Probably fatty infiltration of the liver.? No focal liver lesion seen. ? ? ? Question small 5 mm cyst in the uncinate process of the head of the pancreas.? Normal main pancreatic duct ? ? [facility] Medical History (Updated 02/27/24 @ 10:08 by Kevin Corcoran MD) Positive colorectal cancer screening using Cologuard test Respiratory failure with hypoxia and hypercapnia Bilateral carotid artery disease CAD (coronary artery disease) Anxiety and depression Constipation Anemia Chronic respiratory failure with hypoxia and hypercapnia Radiation fibrosis of lung Acute on chronic respiratory failure with hypoxia and hypercapnia HTN (hypertension) Dyslipidemia History of pneumonia Bacteremia due to Enterococcus COPD, severe Diabetes mellitus with hyperglycemia, without long-term current use of insulin Urinary incontinence Asthma Lung cancer Skin cancer Surgical History Hx of heart artery stent History of esophagogastroduodenoscopy (EGD) Hx of colonoscopy Family History Father Medical history non-contributory Mother Medical history non-contributory Unknown family medical history Lung collapse Brother No problems noted. Brother No problems noted. Son Substance use disorder Son No problems noted. Daughter No problems noted. Sister No problems noted. Sister No problems noted. Sister No problems noted. Sister No problems noted. Other HTN (hypertension) Social History Household Members: Spouse Household Members Other:: grandson Housing: Apartment Are you a primary certified social workers in health care to a significant other at home: No Do you presently have visiting nurse or other home services: No Alcohol intake: never Patient Tobacco Use Status: Former Tobacco user Tobacco use type: Cigarette e-Cigarette/Vaping Use: Never Used Advance Directives Date on File: 06/08/22 service: No Current occupational status: retired Cognitive needs: No Hearing needs: No Vision needs: No Review of Systems Const Reports fatigue, Denies fever(s), Denies headache(s), Reports weight gain and Denies weight loss Eyes Denies eye discharge and Denies irritation ENT Reports Normal hearing present, Denies dysphagia, Denies dizziness, Denies head ache(s) and Reports hoarseness Card Denies chest pain, Denies leg edema, Reports dyspnea and Denies dyspnea on exertion Resp Reports cough, Reports dyspnea, Denies dyspnea on exertion and Reports wheezing GI Reports abdominal pain, Denies change in bowel habits, Denies dysphagia and Denies heartburn Denies dysuria and Reports urinary frequency Musc Denies back pain, Reports arthralgias and Reports other (arthritis) Skin/Breast Denies pruritus, Reports rash and Denies jaundice Neuro Reports Normal hearing present, Denies Abnormal speech present, Denies dizziness, Denies headache(s) and Denies seizure-like activity Psych Reports anxiety, Denies depression and Denies panic attacks Endo Denies cold intolerance, Reports fatigue, Denies flushing and Denies heat intole andrea John/Lymph Denies easy bleeding and Denies easy bruising Aller/Immun Reports wheezing Physical Exam Vital Signs: Last Vital Signs Pulse 76 02/27/24 09:24 BP 92/50 L 02/27/24 09:24 Pulse Ox 92 02/27/24 09:24 BMI result Body Mass Index 33.3 Const General: no acute distress and ill appearing Nutritional Appearance: obese Orientation/consciousness: patient oriented x3 Limitations: other limitations (On home oxygen) HEENT Head: Yes normal to inspection Ears: hearing grossly normal bilaterally Mouth: Normal oral and palatal mucosa present Eyes Sclerae: sclerae normal Pupils: Equal, round and reactive pupils present Neck Neck: Yes normal visual inspection Chest Chest palpation & inspection: normal inspection of the chest Resp Effort & Inspection: normal respiratory effort Auscultation: clear to auscultation bilaterally Cardio Palpation: normal PMI Rate: regular rate Rhythm: regular rhythm Heart sounds: S1 normal heart sound present, S2 normal heart sound present and no murmurs GI Inspection: Yes distended and Yes obesity Palpation (GI): Soft to palpation, nontender and No hepatosplenomegaly present Auscultation: normal bowel sounds Rectal Exam - Male: Yes deferred Skin General skin exam: no rashes or lesions noted Neuro General: patient oriented x3, gait normal and moves all extremities Cranial nerves: Yes Equal, round and reactive pupils present and Yes Normal hearing present Speech: No Abnormal speech present Psych Appearance: grossly normal Mental Status: mental status grossly normal Assessment & Plan Assessment & Plan (1) GERD (gastroesophageal reflux disease): Comment: Continue omeprazole 20 mg once daily Code(s): K21.9 - Gastro-esophageal reflux disease without esophagitis Category: Medical (2) Gallbladder polyp: Comment: Continue to monitor with periodic ultrasound since he is a poor surgical candidate and his spool maker declined to clear him for surgery. Per Dr Russo's note: Mr. Reed presents with an slowly enlarging gallbladder polyp which normally should be removed by cholecystectomy. Unfortunately, his respiratory status is worsening and he is not cleared for surgery. The risks of the surgery will far outweigh the benefits, therefore no surgery will be scheduled. The patient understands and will call for any changes. (not seen on his most recent US and felt to be ? a sludge ball). Code(s): K82.4 - Cholesterolosis of gallbladder Category: Medical (3) Anemia: Code(s): D64.9 - Anemia, unspecified Category: Medical (4) Positive colorectal cancer screening using Cologuard test: Code(s): R19.5 - Other fecal abnormalities Category: Medical (5) Cirrhosis of liver with ascites: Code(s): K74.60 - Unspecified cirrhosis of liver; R18.8 - Other ascites Category: Medical Plan 74 YM with COPD, CAD, Hypertension and type 2 DM seen for FU of cirrhosis due to steatohepatitis related to obesity. He has early cirrhosis since Liver Fibrosis Score was 0.21 correlating with Fibrosis Stage F0, INR is 1.1 and albumin was normal. MELD score is 6. Patient had issues with chronic diarrhea in the past which has mostly resolved - only has self limited symptoms every few weeks and is not taking the citrucil any more. Stool tests for C Diff toxin was negative and fecal fat was elevated. Diarrhea was likely due to acute self limited colitis/microscopic colitis. Patient is not a candidate for colonoscopy due to advanced lung disease and multiple comorbidities. Patient was advised to schedule an abdominal ultrasound in 4 weeks to screen for HCC and FU on GB polyp 02/27/24 Pt complains of abdominal bloating Advised to schedule an Abd US to screen for HCC and ascites - I will contact him with results Positive Cologuard test - pt is at high-risk for anesthesia due to COPD (on Home O2 at 3 L/m by NC Patient was advised to schedule a CT colonography (Dulcolax and Miralax prep). Pt requesting to schedule an appt with Dr Perdomo - message sent Follow-up in GI clinic in 3 months Orders: Orders US abdomen complete Today K74.60 - Unspecified cirrhosis of liver, R18.8 - Other ascites CT colonography Today R19.5 - Other fecal abnormalities Medications: New bisacodyl (Dulcolax (bisacodyl)) Take 2 tablets at 12 pm daily starting [address] scan 10 mg (2 x 5 mg) PO ONCE 5 days 10 tabs [address] prep for CT colonography polyethylene glycol 3350 (Miralax) Mix Miralax with 64 oz(8 cups) of Crystal light. Take 2 tablets of Dulcolax qt 12 pm. Wait to have your 1st bowel movement, then begin drinking Miralax. Drink a glass of Miralax every 10-15 minutes until you are finished. You will drink at least another 4 cups of clear liquid of your choice over the next 2 hours. Please drink as many clear liquids as possible You may have clear liquids up to four hours before your CT colonography 17 grams PO DAILY 1 day 238 grams 0RF Prep for CT colonography Coding Level of Care Code Est Pt Level 4 (67146) Diagnoses GERD (gastroesophageal reflux disease) K21.9 Gallbladder polyp K82.4 Anemia D64.9 Positive colorectal cancer screening using Cologuard test R19.5 Cirrhosis of liver with ascites K74.60; R18.8 Time Spent (min) 20
[2024-02-27 09:24] VITALS: BP 92/50; PULSE 76; O2SAT 92; BMI 33.3
== END 2024-02-27 10:42 | disposition home or self-care (01) ==
PROVIDERS: PCP Internal Medicine; Visit Provider Internal Medicine Gastroenterology
DX: K21.9 Gastro-esophageal reflux disease without esophagitis (principal); K82.4 Cholesterolosis of gallbladder; D64.9 Anemia, unspecified; R19.5 Other fecal abnormalities; K74.60 Unspecified cirrhosis of liver; R18.8 Other ascites
CPT/HCPCS: 99214

== ENCOUNTER → 2024-02-27 09:19 | Outpatient (BNVA) | payer MEDICARE, SELFPAY | PROVIDERS: PCP Internal Medicine; Visit Provider Internal Medicine Gastroenterology | DX: K21.9 Gastro-esophageal reflux disease without esophagitis (principal); K82.4 Cholesterolosis of gallbladder; K74.60 Unspecified cirrhosis of liver; D64.9 Anemia, unspecified; R19.5 Other fecal abnormalities; R18.8 Other ascites | CPT/HCPCS: 99212 ==

== ENCOUNTER 2024-03-03 08:46 | Outpatient (REF) | payer MEDICARE, SELFPAY ==
--- NOTE | ~2024-03-03 | US_ITS ---
EXAMINATION: US ABDOMEN COMPLETE CLINICAL INFORMATION: Cirrhosis. COMPARISON: 02/20/2022 TECHNIQUE: Real-time imaging of the abdominal viscera. FINDINGS: PANCREAS: Not visualized due to bowel gas shadowing ABDOMINAL AORTA: The proximal aorta is unremarkable INFERIOR VENA CAVA: Visualized portions are normal. LIVER: The liver is normal in size. The liver contour is normal. There is diffuse increased liver parenchymal echogenicity, consistent with infiltrative hepatocellular disease. No focal hepatic lesion. There is no intrahepatic biliary duct dilatation seen. GALLBLADDER: Echogenic sludge is seen within the gallbladder. No gallbladder wall thickening or pericholecystic fluid COMMON BILE DUCT: Dilated measuring 1.3 cm. There are multiple shadowing stones within the common bile duct. RIGHT KIDNEY: 2 echogenic stones seen within the midportion of the kidney measuring 3 to 5 mm. No hydronephrosis. No renal calculi or focal parenchymal lesions. The kidney measures 11.1 cm in maximum dimension. LEFT KIDNEY: Normal. No hydronephrosis. No renal calculi or focal parenchymal lesions. The kidney measures 12.5 cm in maximum dimension. SPLEEN: Normal. The spleen measures 10.3 cm in maximum dimension. FREE FLUID: None. US/US abdomen complete IMPRESSION: 1. Echogenic liver consistent with hepatocellular disease. No focal hepatic lesions. 2. Choledocholithiasis. Dilated common bile duct with multiple stones. Gallbladder contains echogenic sludge without wall thickening 3. Nonobstructing right renal calculi. Electronically signed by: Bryce Youngblood MD 03/03/2024 07:01 PM EST
== END 2024-03-03 08:47 | disposition home or self-care (01) ==
LOC: HO.HMGCX 08:46
PROVIDERS: PCP Internal Medicine; Visit Provider Internal Medicine Gastroenterology
DX: K74.60 Unspecified cirrhosis of liver (principal); R18.8 Other ascites
CPT/HCPCS: 76700

== ENCOUNTER 2024-03-26 13:35 | Outpatient (AMB) | payer MEDICARE, SELFPAY ==
--- OUTSIDE RECORDS SUMMARY | 2024-03-26 13:38 | XMS_ITS | Clinical Summary ---
Author Organization Unknown Care Team Providers Care Production Machinist Name Role Phone MAINOR TITUS, JOSE F ESPINOSA Unavailable Unavaila ble JUAN DAVID DRY KILN FEEDER, HARI Unavailable Unavail able TOMMY RN, ZAHEER Unavailable Unavailable EVAN COHEN DRY KILN FEEDER, VIOLETTA Unavailable Unavail able JUDITH EMMANUEL LPN, CALE Unavailable Unavai arthur Payers Payer Name Policy Type Policy Number Effective Date Expira tion Date MEDICARE - [facility] [id number] [facility] [id number] Problems Condition Name Condition Details Condition Category Status Onset Date Resolution Date Last Treatment Date Treating Clinician Comments CHRONIC OBSTRUCTIVE PULMONARY DISEASE, UNSPECIFIED Active 04-08 00:00: 00 PULMONARY FIBROSIS, UNSPECIFIED Active 04-08 00:00: 00 TYPE 2 DIABETES W DIABETIC PERIPHERAL ANGIOPATH W/O GANGRENE Active 04-08 00:00: 00 HYP HRT AND CHR KDNY DIS W HRT FAIL AND STG 1-4/UNSP CHR KDNY Active 04-08 00:00: 00 HEART FAILURE, UNSPECIFIED Active 04-08 00:00: 00 TYPE 2 DIABETES MELLITUS W DIABETIC CHRONIC KIDNEY DISEASE Active 04-08 00:00: 00 CHRONIC KIDNEY DISEASE, UNSPECIFIED Active 04-08 00:00: 00 ANEMIA IN CHRONIC KIDNEY DISEASE Active 04-08 00:00: 00 CHRONIC RESPIRATORY FAILURE WITH HYPOXIA Active 04-08 00:00: 00 CHRONIC RESPIRATORY FAILURE WITH HYPERCAPNIA Active 04-08 00:00: 00 ATHSCL HEART DISEASE OF [place] CORONARY ARTERY W/O ANG PCTRS Active 04-08 00:00: 00 ANXIETY DISORDER, UNSPECIFIED Active 04-08 00:00: 00 DEPRESSION, UNSPECIFIED Active 04-08 00:00: 00 BENIGN PROSTATIC HYPERPLASIA WITHOUT LOWER URINRY TRACT SYMP Active 04-08 00:00: 00 MIXED HYPERLIPIDEM IA Active 04-08 00:00: 00 GASTRO-ESOPH AGEAL REFLUX DISEASE WITHOUT ESOPHAGITIS Active 04-08 00:00: 00 OBESITY, UNSPECIFIED Active 04-08 00:00: 00 BODY MASS INDEX [BMI] 25.0-25.9, ADULT Active 04-08 00:00: 00 DEPENDENCE ON SUPPLEMENTAL OXYGEN Active 04-08 00:00: 00 PRESENCE OF CORONARY ANGIOPLASTY IMPLANT AND GRAFT Active 04-08 00:00: 00 PERSONAL HISTORY OF PNEUMONIA (RECURRENT) Active 04-08 00:00: 00 PRSNL HX OF TIA (TIA), AND CEREB INFRC W/O RESID DEFICITS Active 04-08 00:00: 00 PERSONAL HISTORY OF OTHER MALIGNANT NEOPLASM OF SKIN Active 04-08 00:00: 00 PERSONAL HISTORY OF MALIGNANT NEOPLASM OF BRONCHUS AND LUNG Active 04-08 00:00: 00 ACQUIRED ABSENCE OF LUNG [PART OF] Active 04-08 00:00: 00 PERSONAL HISTORY OF NICOTINE DEPENDENCE Active 04-08 00:00: 00 DEHORNER (CURRENT) USE OF ASPIRIN Active 04-08 00:00: 00 DEHORNER (CURRENT) USE OF ORAL HYPOGLYCEMIC DRUGS Active 04-08 00:00: 00 Allergies, Adverse Reactions, Alerts Allergy Name Allergy Type Status Severity Reaction(s) Onset Date Inactive Date Treating Clinician Comments NKA Propensity to adverse reactions Active 2023-10 15:50:0 3 Medications Ordered Medication Name Filled Medication Name Start Date Stop Date Current Medication? Ordering Clinician Indication Dosage Frequency Signature (SIG) Comments Components prednisone 10 mg tablet 08-06 00:00: 00 08-08 23:59 :00 No [id number] Per instruc tions DAILY Per instructio ns DAILY (route: oral) Med Classific ation: Endocrine furosemide 20 mg tablet -19 00:00: 00 08-06 23:59 :00 No [id number] Per instruc tions EVERY DAY Per instructio ns EVERY DAY (route: oral) Med Classific ation: Cardiovas cular Therapy Agents albuterol sulfate HFA 90 mcg/actuati on aerosol inhaler 07-24 00:00: 00 02-19 23:59 :00 No [id number] 2 puff NEEDED 2 puff NEEDED (route: inhalation ) Med Classific ation: Respirato ry Therapy Agents lorazepam 0.5 mg tablet 07-24 00:00: 00 08-21 23:59 :00 No [id number] Per instruc tions DAILY NEEDED Per instructio ns DAILY NEEDED (route: oral) Med Classific ation: Central Nervous System Agents hydrochloro thiazide 25 mg tablet 07-18 00:00: 00 02-19 23:59 :00 No [id number] Per instruc tions EVERY Per instructio ns EVERY (route: oral) Med Classific ation: Cardiovas cular Therapy Agents glipizide 5 mg tablet 07-17 00:00: 00 09-26 23:59 :00 No [id number] Per instruc tions 2 TIMES DAILY Per instructio ns 2 TIMES DAILY (route: oral) Med Classific ation: Endocrine omeprazole 20 mg capsule,del ayed release 07-17 00:00: 00 02-19 23:59 :00 No [id number] Per instruc tions EVERY DAY Per instructio ns EVERY DAY (route: oral) Med Classific ation: Gastroint estinal Therapy Agents metoprolol tartrate 25 mg tablet 07-10 00:00: 00 02-19 23:59 :00 No [id number] Per instruc tions TWICE A DAY Per instructio ns TWICE A DAY (route: oral) Med Classific ation: Cardiovas cular Therapy Agents aspirin 81 mg tablet,courtney yed release 08-09 00:00: 00 02-19 23:59 :00 No [id number] 1 tablet DAILY 1 tablet DAILY (route: oral) Med Classific ation: Hematolog ical Agents atorvastati n 80 mg tablet 08-09 00:00: 00 02-19 23:59 :00 No [id number] 1 tablet BEDTIME 1 tablet BEDTIME (route: oral) Med Classific ation: Cardiovas cular Therapy Agents budesonide- formoterol HFA 160 mcg-4.5 mcg/actuati on aerosol inhaler 08-09 00:00: 00 02-19 23:59 :00 No [id number] 1 puff DAILY 1 puff DAILY (route: inhalation ) Med Classific ation: Respirato ry Therapy Agents isosorbide mononitrate ER 30 mg tablet,exte nded release 24 hr 08-09 00:00: 00 02-19 23:59 :00 No [id number] 1 tablet DAILY 1 tablet DAILY (route: oral) Med Classific ation: Cardiovas cular Therapy Agents Lexapro 20 mg tablet 08-09 00:00: 00 02-19 23:59 :00 No [id number] 1 tablet DAILY 1 tablet DAILY (route: oral) Med Classific ation: Central Nervous System Agents metformin 1,000 mg tablet 08-09 00:00: 00 02-19 23:59 :00 No [id number] 1 tablet 2 TIMES DAILY 1 tablet 2 TIMES DAILY (route: oral) Med Classific ation: Endocrine Miralax 17 gram/dose oral powder 08-09 00:00: 00 02-19 23:59 :00 No [id number] Per instruc tions NEEDED Per instructio ns NEEDED (route: oral) Med Classific ation: Gastroint estinal Therapy Agents multivitami n tablet 08-09 00:00: 00 02-19 23:59 :00 No [id number] 1 tablet DAILY 1 tablet DAILY (route: oral) Med Classific ation: Electroly te Balance-N utritiona l Products O2 - OXYGEN 08-09 00:00: 00 02-19 23:59 :00 No [id number] 2.5 Liter O2 - CONTINUOUS 2.5 Liter O2 - CONTINUOUS (route: Oxygen) Alternate Route: O2 - NASAL CANNULA. Med Classific ation: Medical Oxygen lorazepam 1 mg tablet 08-21 00:00: 00 02-19 23:59 :00 No [id number] 1 tablet 2 TIMES DAILY 1 tablet 2 TIMES DAILY (route: oral) Med Classific ation: Central Nervous System Agents lactulose 10 gram/15 mL oral solution 08-21 00:00: 00 02-19 23:59 :00 No [id number] 15 mL DAILY 15 mL DAILY (route: oral) Med Classific ation: Gastroint estinal Therapy Agents escitalopra m 20 mg tablet 2022-04 00:00: 00 Yes [id number] 1 tablet DAILY 1 tablet DAILY (route: oral) Med Classific ation: Central Nervous System Agents azithromyci n 500 mg tablet 2022-04 00:00: 00 07-18 23:59 :00 No [id number] Per instruc tions EVERY Per instructio ns EVERY (route: oral) Med Classific ation: Anti-Infe ctive Agents omeprazole 20 mg capsule,del ayed release 2022-04 00:00: 00 11-07 23:59 :00 No [id number] Per instruc tions EVERY DAY Per instructio ns EVERY DAY (route: oral) Med Classific ation: Gastroint estinal Therapy Agents atorvastati n 80 mg tablet 2022-04 00:00: 00 Yes [id number] Per instruc tions EVERYDAY AT BEDTIME Per instructio ns EVERYDAY AT BEDTIME (route: oral) Med Classific ation: Cardiovas cular Therapy Agents ezetimibe 10 mg tablet 2022-04 00:00: 00 02-24 23:59 :00 No [id number] Per instruc tions EVERY DAY Per instructio ns EVERY DAY (route: oral) Med Classific ation: Cardiovas cular Therapy Agents acetazolami de 250 mg tablet 2022-04 00:00: 00 10-14 00:00 :00 No [id number] 1 tablet DAILY 1 tablet DAILY (route: oral) Med Classific ation: Cardiovas cular Therapy Agents Calcium 600 with Vitamin D3 600 mg-10 mcg (400 unit) chewable tablet 2022-04 00:00: 00 Yes [id number] 1 tablet DAILY 1 tablet DAILY (route: oral) Med Classific ation: Electroly te Balance-N utritiona l Products cefuroxime axetil 500 mg tablet 2022-04 00:00: 00 07-18 23:59 :00 No [id number] 1 tablet EVERY 12 HOURS 1 tablet EVERY 12 HOURS (route: oral) Med Classific ation: Anti-Infe ctive Agents glipizide 5 mg tablet 2022-04 00:00: 00 10-14 00:00 :00 No [id number] 1 tablet 2 TIMES DAILY 1 tablet 2 TIMES DAILY (route: oral) Med Classific ation: Endocrine isosorbide mononitrate ER 30 mg tablet,exte nded release 24 hr 2022-04 00:00: 00 10-14 23:59 :00 No [id number] 1 tablet DAILY 1 tablet DAILY (route: oral) Med Classific ation: Cardiovas cular Therapy Agents lorazepam 1 mg tablet 2022-04 00:00: 00 11-07 23:59 :00 No [id number] .[id number] tablet 2 TIMES DAILY .5 tablet 2 TIMES DAILY (route: oral) Med Classific ation: Central Nervous System Agents metformin 1,000 mg tablet 2022-04 00:00: 00 Yes [id number] 1 tablet 2 TIMES DAILY 1 tablet 2 TIMES DAILY (route: oral) Med Classific ation: Endocrine metoprolol tartrate 25 mg tablet 2022-04 00:00: 00 Yes [id number] 1 tablet 2 TIMES DAILY 1 tablet 2 TIMES DAILY (route: oral) Med Classific ation: Cardiovas cular Therapy Agents Miralax 17 gram/dose oral powder 2022-04 00:00: 00 Yes [id number] 17 gram DAILY 17 gram DAILY (route: oral) Med Classific ation: Gastroint estinal Therapy Agents prednisone 10 mg tablet 2022-04 00:00: 00 03-08 23:59 :00 No [id number] Per instruc tions DAILY Per instructio ns DAILY (route: oral) Med Classific ation: Endocrine ProAir RespiClick 90 mcg/actuati on breath activated 2022-04 00:00: 00 11-07 23:59 :00 No [id number] 2 puff EVERY 4 HOURS 2 puff EVERY 4 HOURS (route: inhalation ) Med Classific ation: Respirato ry Therapy Agents Symbicort 160 mcg-4.5 mcg/actuati on HFA aerosol inhaler 2022-04 00:00: 00 10-06 23:59 :00 No [id number] 1 puff 2 TIMES DAILY 1 puff 2 TIMES DAILY (route: inhalation ) Med Classific ation: Respirato ry Therapy Agents prednisone 10 mg tablet 2- 00:00: 00 06-05 23:59 :00 No [id number] Per instruc tions DAILY Per instructio ns DAILY (route: oral) Med Classific ation: Endocrine cefpodoxime 100 mg tablet 2- 00:00: 00 06-05 23:59 :00 No [id number] 1 tablet EVERY 12 HOURS 1 tablet EVERY 12 HOURS (route: oral) Med Classific ation: Anti-Infe ctive Agents O2 - OXYGEN 2022-04 00:00: 00 Yes [id number] 2-3 Liter O2 - CONTINUOUS 2-3 Liter O2 - CONTINUOUS (route: Oxygen) Alternate Route: O2 - NASAL CANNULA. Med Classific ation: Medical Oxygen prednisone 10 mg tablet 09 00:00: 00 07-27 23:59 :00 No [id number] Per instruc tions DAILY Per instructio ns DAILY (route: oral) Med Classific ation: Endocrine Incruse Ellipta 62.5 mcg/actuati on powder for inhalation 10-14 00:00: 00 11-07 23:59 :00 No [id number] 1 inhalat ion DAILY 1 inhalation DAILY (route: inhalation ) Med Classific ation: Respirato ry Therapy Agents prednisone 50 mg tablet 10-12 00:00: 00 10-17 23:59 :00 No [id number] 1 tablet DAILY 1 tablet DAILY (route: oral) Med Classific ation: Endocrine budesonide 0.5 mg/2 mL suspension for nebulizatio n 11-07 00:00: 00 11-17 23:59 :00 No [id number] 2 mL 2 TIMES DAILY 2 mL 2 TIMES DAILY (route: inhalation ) Med Classific ation: Respirato ry Therapy Agents guaifenesin ER 600 mg tablet, extended release 12 hr 11-07 00:00: 00 11-17 23:59 :00 No [id number] 1 tablet 2 TIMES DAILY 1 tablet 2 TIMES DAILY (route: oral) Med Classific ation: Respirato ry Therapy Agents pantoprazol e 40 mg tablet,courtney yed release 11-07 00:00: 00 12-07 23:59 :00 No [id number] 1 tablet 2 TIMES DAILY 1 tablet 2 TIMES DAILY (route: oral) Med Classific ation: Gastroint estinal Therapy Agents prednisone 10 mg tablet 11-07 00:00: 00 11-19 23:59 :00 No [id number] Per instruc tions DAILY Per instructio ns DAILY (route: oral) Med Classific ation: Endocrine azithromyci n 500 mg tablet 11-07 00:00: 00 11-14 23:59 :00 No [id number] 1 tablet DAILY 1 tablet DAILY (route: oral) Med Classific ation: Anti-Infe ctive Agents azithromyci n 500 mg tablet 11-15 00:00: 00 01-02 23:59 :00 No [id number] Per instruc tions 3 TIMES A WEEK Per instructio ns 3 TIMES A WEEK (route: oral) Med Classific ation: Anti-Infe ctive Agents ipratropium 0.5 mg-albutero l 3 mg (2.5 mg base)/3 mL nebulizatio n soln 11-07 00:00: 00 11-17 23:59 :00 No [id number] 3 mL 4 TIMES DAILY 3 mL 4 TIMES DAILY (route: inhalation ) Med Classific ation: Respirato ry Therapy Agents albuterol sulfate HFA 90 mcg/actuati on aerosol inhaler 11-07 00:00: 00 Yes [id number] 2 puff EVERY 6 HOURS 2 puff EVERY 6 HOURS (route: inhalation ) Med Classific ation: Respirato ry Therapy Agents aspirin 81 mg chewable tablet 11-07 00:00: 00 Yes [id number] 1 tablet DAILY 1 tablet DAILY (route: oral) Med Classific ation: Hematolog ical Agents glipizide 5 mg tablet 11-07 00:00: 00 Yes [id number] 1 tablet 2 TIMES DAILY 1 tablet 2 TIMES DAILY (route: oral) Med Classific ation: Endocrine lorazepam 0.5 mg tablet 11-07 00:00: 00 Yes [id number] 1 tablet EVERY 12 HOURS 1 tablet EVERY 12 HOURS (route: oral) Med Classific ation: Central Nervous System Agents Immunizations Ordered Immunization Name Filled Immunization Name Date Status Comments Refusal Reason INFLUENZA, TIV (INACTIVATED) 2022-12-26 00:00:00 Vital Signs Vital Name Observation Time Observation Value Commen ts Temperature 2024-02-07 12:23:00.000 98.2 [degF] Temperature 2024-01-31 13:16:00.000 97.1 [degF] Temperature 2024-01-24 12:55:00.000 98.7 [degF] Temperature 2024-01-17 12:42:00.000 97.1 [degF] Temperature 2024-01-10 12:55:00.000 98 [degF] Temperature 2024-01-03 13:22:00.000 97.9 [degF] Temperature 2023-12-27 10:35:00.000 99.2 [degF] Temperature 2023-12-19 12:32:00.000 97.9 [degF] Pulse 2024-02-07 12:23:00.000 83 /min Pulse 2024-01-24 12:55:00.000 66 /min Pulse 2024-01-17 12:42:00.000 68 /min Pulse 2024-01-10 12:55:00.000 74 /min Pulse 2024-01-03 13:22:00.000 65 /min Pulse 2023-12-27 10:35:00.000 69 /min Pulse 2023-12-19 12:32:00.000 67 /min O2 Saturation (%) 2024-02-07 12:23:00.000 96 % O2 Saturation (%) 2024-01-31 13:16:00.000 97 % O2 Saturation (%) 2024-01-24 12:55:00.000 97 % O2 Saturation (%) 2024-01-17 12:42:00.000 97 % O2 Saturation (%) 2024-01-10 12:55:00.000 96 % O2 Saturation (%) 2024-01-03 13:22:00.000 98 % O2 Saturation (%) 2023-12-27 10:35:00.000 95 % O2 Saturation (%) 2023-12-19 12:32:00.000 96 % Respirations 2024-02-07 12:23:00.000 16 /min Respirations 2024-01-24 12:55:00.000 18 /min Respirations 2024-01-17 12:42:00.000 16 /min Respirations 2024-01-10 12:55:00.000 20 /min Respirations 2024-01-03 13:22:00.000 16 /min Respirations 2023-12-27 10:35:00.000 18 /min Respirations 2023-12-19 12:32:00.000 18 /min Weight (lbs) 2024-02-07 12:28:00.000 197 [lb_av] Weight (lbs) 2024-01-31 13:16:00.000 196 [lb_av] Weight (lbs) 2024-01-24 12:59:00.000 194 [lb_av] Weight (lbs) 2024-01-17 12:42:00.000 195 [lb_av] Weight (lbs) 2024-01-10 12:55:00.000 197 [lb_av] Weight (lbs) 2024-01-03 13:22:00.000 197 [lb_av] Weight (lbs) 2023-12-27 10:42:00.000 195 [lb_av] Weight (lbs) 2023-12-19 12:32:00.000 192 [lb_av] Systolic Blood Pressure 2024-02-07 12:23:00.000 106 mm [Hg] Systolic Blood Pressure 2024-01-31 13:16:00.000 110 mm [Hg] Systolic Blood Pressure 2024-01-24 12:55:00.000 122 mm [Hg] Systolic Blood Pressure 2024-01-17 12:42:00.000 110 mm [Hg] Systolic Blood Pressure 2024-01-10 12:55:00.000 120 mm [Hg] Systolic Blood Pressure 2024-01-03 13:22:00.000 110 mm [Hg] Systolic Blood Pressure 2023-12-27 10:35:00.000 102 mm [Hg] Systolic Blood Pressure 2023-12-19 12:32:00.000 138 mm [Hg] Diastolic Blood Pressure 2024-02-07 12:23:00.000 58 mm [Hg] Diastolic Blood Pressure 2024-01-31 13:16:00.000 62 mm [Hg] Diastolic Blood Pressure 2024-01-24 12:55:00.000 72 mm [Hg] Diastolic Blood Pressure 2024-01-17 12:42:00.000 62 mm [Hg] Diastolic Blood Pressure 2024-01-10 12:55:00.000 84 mm [Hg] Diastolic Blood Pressure 2024-01-03 13:22:00.000 62 mm [Hg] Diastolic Blood Pressure 2023-12-27 10:35:00.000 60 mm [Hg] Diastolic Blood Pressure 2023-12-19 12:32:00.000 66 mm [Hg] Plan of Treatment Planned Activity Planned Date Details Comments Future Scheduled Test SKILLED NU RSE TO EVALUATE PATIENT, IDENTIFY PRIMARY AND CO-MORBID CONDITIONS CODED PER CODING GUIDELINES, AND DEVELOP PATIENT SPECIFIC PLAN OF CARE THAT INCLUDES PATIENT GOAL FOR HOME HEALTH. [code = SKILLED NURSE TO EVALUATE PATIENT, IDENTIFY PRIMARY AND CO-MORBID CONDITIONS CODED PER CODING GUIDELINES, AND DEVELOP PATIENT SPECIFIC PLAN OF CARE THAT INCLUDES PATIENT GOAL FOR HOME HEALTH.] Future Scheduled Test SKILLED NU RSE TO REVIEW PATIENT MEDICATIONS. INSTRUCT PATIENT/CAREGIVER ON MONITORING OF EFFECTIVENESS, ADVERSE DRUG REACTIONS, SIDE EFFECTS OF ALL MEDICATIONS (PRESCRIPTION/-OTC), AND HOW AND WHEN TO REPORT PROBLEMS. [code = SKILLED NURSE TO REVIEW PATIENT MEDICATIONS. INSTRUCT PATIENT/CAREGIVER ON MONITORING OF EFFECTIVENESS, ADVERSE DRUG REACTIONS, SIDE EFFECTS OF ALL MEDICATIONS (PRESCRIPTION/-OTC), AND HOW AND WHEN TO REPORT PROBLEMS. ] Future Scheduled Test SKILLED NU RSE TO ASSESS ANXIETY AND PROVIDE ASSISTANCE TO PATIENT FOR UNDERSTANDING AND MANAGEMENT OF FEELINGS. [code = SKILLED NURSE TO ASSESS ANXIETY AND PROVIDE ASSISTANCE TO PATIENT FOR UNDERSTANDING AND MANAGEMENT OF FEELINGS.] Future Scheduled Test OXYGEN VIA NASAL CANNULA @ 2 LITERS CONTINUOUS. SKILLED NURSE FOR O/A AND SKILLED TEACHING OF SAFE OXYGEN USE IN THE HOME. [code = OXYGEN VIA NASAL CANNULA @ 2 LITERS CONTINUOUS. SKILLED NURSE FOR O/A AND SKILLED TEACHING OF SAFE OXYGEN USE IN THE HOME.] Future Scheduled Test SKILLED NU RSE FOR O/A, TEACHING, AND MANAGEMENT OF CAD, HTN, HLD. [code = SKILLED NURSE FOR O/A, TEACHING, AND MANAGEMENT OF CAD, HTN, HLD.] Future Scheduled Test SKILLED NU RSE FOR O/A, TEACHING RELATED TO GERD FOR EARLY IDENTIFICATION OF EXACERBATION OF DISEASE PROCESS. [code = SKILLED NURSE FOR O/A, TEACHING RELATED TO GERD FOR EARLY IDENTIFICATION OF EXACERBATION OF DISEASE PROCESS.] Future Scheduled Test SKILLED NU RSE FOR O/A, TEACHING AND MANAGEMENT OF CKD, BPH FOR EARLY IDENTIFICATION OF EXACERBATION OF DISEASE PROCESS [code = SKILLED NURSE FOR O/A, TEACHING AND MANAGEMENT OF CKD, BPH FOR EARLY IDENTIFICATION OF EXACERBATION OF DISEASE PROCESS] Future Scheduled Test SKILLED NU RSE FOR O/A OF RESPIRATORY SYSTEM TO IDENTIFY CHANGES ASSOCIATED WITH EXACERBATION AND TO PROVIDE SKILLED TEACHING ON MANAGEMENT OF RESPIRATORY FAILURE WITH HYPOXIA DISEASE PROCESS. [code = SKILLED NURSE FOR O/A OF RESPIRATORY SYSTEM TO IDENTIFY CHANGES ASSOCIATED WITH EXACERBATION AND TO PROVIDE SKILLED TEACHING ON MANAGEMENT OF RESPIRATORY FAILURE WITH HYPOXIA DISEASE PROCESS.] Future Scheduled Test SKILLED NU RSE TO INSTRUCT/REINFORCE MEASURES TO PREVENT BARRIERS TO CARE. [code = SKILLED NURSE TO INSTRUCT/REINFORCE MEASURES TO PREVENT BARRIERS TO CARE.] Future Scheduled Test PT TO PERF ORM AND RECORD BLOOD SUGAR READING QD, AND PRN FOR SIGNS AND SYMPTOMS OF HYPO/HYPERGLYCEMIA. [code = PT TO PERFORM AND RECORD BLOOD SUGAR READING QD, AND PRN FOR SIGNS AND SYMPTOMS OF HYPO/HYPERGLYCEMIA.] Future Scheduled Test SKILLED NU RSE TO INSTRUCT PATIENT/CAREGIVER ON COPD TO INCLUDE TEACHING AND SELF-MANAGEMENT RELATED TO COPD DISEASE PROCESS, SIGNS AND SYMPTOMS, AND COMPLICATIONS. [code = SKILLED NURSE TO INSTRUCT PATIENT/CAREGIVER ON COPD TO INCLUDE TEACHING AND SELF-MANAGEMENT RELATED TO COPD DISEASE PROCESS, SIGNS AND SYMPTOMS, AND COMPLICATIONS.] Future Scheduled Test SKILLED NU RSE FOR O/A, TEACHING AND SELF-MANAGEMENT RELATED TO HEART FAILURE. INSTRUCT PATIENT/CAREGIVER ON SIGNS AND SYMPTOMS OF EXACERBATION TO REPORT AND IMPORTANCE OF OBTAINING AND RECORDING DAILY WEIGHT AND/OR MEASUREMENTS. SN OR TRAINED PATIENT/CAREGIVER TO OBTAIN WEIGHT DAILY AND WEIGHT GAIN OF 2 LBS OVERNIGHT OR 5 LBS IN 1 WEEK TO BE REPORTED TO PHYSICIAN/PROVIDER. [code = SKILLED NURSE FOR O/A, TEACHING AND SELF-MANAGEMENT RELATED TO HEART FAILURE. INSTRUCT PATIENT/CAREGIVER ON SIGNS AND SYMPTOMS OF EXACERBATION TO REPORT AND IMPORTANCE OF OBTAINING AND RECORDING DAILY WEIGHT AND/OR MEASUREMENTS. SN OR TRAINED PATIENT/CAREGIVER TO OBTAIN WEIGHT DAILY AND WEIGHT GAIN OF 2 LBS OVERNIGHT OR 5 LBS IN 1 WEEK TO BE REPORTED TO PHYSICIAN/PROVIDER. ] Future Scheduled Test SKILLED NU RSE FOR O/A AND SKILLED TEACHING RELATED TO SIGNS AND SYMPTOMS AND MANAGEMENT OF ANEMIA. [code = SKILLED NURSE FOR O/A AND SKILLED TEACHING RELATED TO SIGNS AND SYMPTOMS AND MANAGEMENT OF ANEMIA.] Future Scheduled Test SKILLED NU RSE FOR O/A AND TEACHING OF DIABETIC MANAGEMENT INCLUDING BLOOD SUGAR MONITORING/USE OF GLUCOMETER, DIABETIC DIET, LOWER EXTREMITY SKIN INSPECTION, PROPER SKIN/FOOT CARE, AND SIGNS AND SYMPTOMS HYPO/HYPERGLYCEMIA TO REPORT. [code = SKILLED NURSE FOR O/A AND TEACHING OF DIABETIC MANAGEMENT INCLUDING BLOOD SUGAR MONITORING/USE OF GLUCOMETER, DIABETIC DIET, LOWER EXTREMITY SKIN INSPECTION, PROPER SKIN/FOOT CARE, AND SIGNS AND SYMPTOMS HYPO/HYPERGLYCEMIA TO REPORT.] Future Scheduled Test PATIENT CHAVEZ S A RISK OF HOSPITALIZATION AND ED USE. SKILLED NURSE TO ESTABLISH SUPPORT MEASURES TO MINIMIZE RISK OF HOSPITALIZATION AND ED USE, AND INSTRUCT PATIENT/CAREGIVER ON METHODS TO REDUCE AVOIDABLE HOSPITALIZATION AND ED USE. [code = PATIENT HAS A RISK OF HOSPITALIZATION AND ED USE. SKILLED NURSE TO ESTABLISH SUPPORT MEASURES TO MINIMIZE RISK OF HOSPITALIZATION AND ED USE, AND INSTRUCT PATIENT/CAREGIVER ON METHODS TO REDUCE AVOIDABLE HOSPITALIZATION AND ED USE.] Future Scheduled Test SKILLED NU RSE TO PROVIDE INSTRUCTION TO PATIENT/CAREGIVER RELATED TO DISCHARGE PLANNING. [code = SKILLED NURSE TO PROVIDE INSTRUCTION TO PATIENT/CAREGIVER RELATED TO DISCHARGE PLANNING.] Future Scheduled Test SKILLED NU RSE TO PERFORM HOME SAFETY AND FALL ASSESSMENT AND PROVIDE INSTRUCTION TO IMPLEMENT HOME SAFETY AND FALL PREVENTION STRATEGIES. [code = SKILLED NURSE TO PERFORM HOME SAFETY AND FALL ASSESSMENT AND PROVIDE INSTRUCTION TO IMPLEMENT HOME SAFETY AND FALL PREVENTION STRATEGIES.] Future Scheduled Test SKILLED NU RSE FOR OBSERVATION AND ASSESSMENT OF PATIENTS PAIN LEVEL AND EFFECTIVENESS OF PAIN MANAGEMENT REGIMEN. SKILLED NURSE TO INSTRUCT PATIENT/CAREGIVER REGARDING PHARMACOLOGIC AND NON-PHARMACOLOGIC PAIN CONTROL MEASURES. SKILLED NURSE TO REPORT TO PHYSICIAN IF PAIN IS UNCONTROLLED WITH CURRENT PAIN MANAGEMENT REGIMEN. [code = SKILLED NURSE FOR OBSERVATION AND ASSESSMENT OF PATIENTS PAIN LEVEL AND EFFECTIVENESS OF PAIN MANAGEMENT REGIMEN. SKILLED NURSE TO INSTRUCT PATIENT/CAREGIVER REGARDING PHARMACOLOGIC AND NON-PHARMACOLOGIC PAIN CONTROL MEASURES. SKILLED NURSE TO REPORT TO PHYSICIAN IF PAIN IS UNCONTROLLED WITH CURRENT PAIN MANAGEMENT REGIMEN.] Future Scheduled Test SKILLED NU RSE TO ASSESS PATIENT'S SKIN INTEGRITY AND INSTRUCT PATIENT/CAREGIVER ON MEASURES TO PREVENT PRESSURE ULCERS. [code = SKILLED NURSE TO ASSESS PATIENT'S SKIN INTEGRITY AND INSTRUCT PATIENT/CAREGIVER ON MEASURES TO PREVENT PRESSURE ULCERS.] Future Scheduled Test SKILLED NU RSE TO PROVIDE ASSESSMENT AND TEACHING/REINFORCEMENT OF MANAGEMENT OF DEPRESSION INCLUDING DISEASE PROCESS, MEDICATION MANAGEMENT, COPING SKILLS AND IDENTIFY CHANGES ASSOCIATED WITH DEPRESSIVE DISORDERS FOR EARLY INTERVENTION. [code = SKILLED NURSE TO PROVIDE ASSESSMENT AND TEACHING/REINFORCEMENT OF MANAGEMENT OF DEPRESSION INCLUDING DISEASE PROCESS, MEDICATION MANAGEMENT, COPING SKILLS AND IDENTIFY CHANGES ASSOCIATED WITH DEPRESSIVE DISORDERS FOR EARLY INTERVENTION. ] Goal 2023-11-08 Patient Goal - BREATHE WELL Goal 2024-02-07 Patient Goal - BREATHE WELL Goal 2023-12-13 Patient Goal - BREATHE WELL Goal Provider Goal - A PLAN OF CARE WILL BE ESTABLISHED THAT MEETS PATIENT'S [facility] NEEDS AND INCLUDES PATIENT GOAL FOR HOME HEALTH. Goal Provider Goal - PATIENT/CAREGIVER WILL VERBALIZE UNDERSTANDING OF EDUCATION PROVIDED ON MEDICATIONS BY THE END OF THE CERTIFICATION PERIOD. Goal Provider Goal - SYMPTOMS OF ANXIETY ARE IDENTIFIED AND INTERVENTIONS INITIATED TO ENABLE PATIENT TO UNDERSTAND AND MANAGE FEELINGS THROUGHOUT EPISODE. Goal Provider Goal - PATIENT/CAREGIVER WILL VERBALIZE/DEMONSTRATE UNDERSTANDING OF SAFE OXYGEN USE IN THE HOME THROUGHOUT THE EPISODE. Goal Provider Goal - PATIENT/CAREGIVER WILL VERBALIZE/DEMONSTRATE MANAGEMENT OF CARDIAC DISEASE PROCESS AND EXACERBATIONS WILL BE IDENTIFIED AND PROMPTLY REPORTED THROUGHOUT THE CERTIFICATION PERIOD. Goal Provider Goal - EXACERBATIONS OF GASTROINTESTINAL DISEASE WILL BE PROMPTLY IDENTIFIED AND INTERVENTIONS IMPLEMENTED TO MINIMIZE RISKS TO PATIENT BY END OF EPISODE. Goal Provider Goal - PATIENT/CAREGIVER WILL VERBALIZE UNDERSTANDING OF GENITOURINARY DISEASE PROCESS, AND EXACERBATIONS OF GENITOURINARY DISEASE WILL BE PROMPTLY IDENTIFIED FOR EARLY INTERVENTION THROUGHOUT THE CERTIFICATION PERIOD. Goal Provider Goal - PATIENT/CAREGIVER WILL VERBALIZE/DEMONSTRATE MANAGEMENT OF RESPIRATORY DISEASE PROCESS. CHANGES IN RESPIRATORY STATUS WILL BE IDENTIFIED AND REPORTED TO PHYSICIAN FOR PROMPT INTERVENTION THROUGHOUT THE CERTIFICATION PERIOD. Goal Provider Goal - PATIENT / CAREGIVER WILL VERBALIZE UNDERSTANDING OF BARRIERS PREVENTING PROPER CARE AND DEMONSTRATE MEASURES TO ELIMINATE THOSE BARRIERS DURING THIS EPISODE. Goal Provider Goal - BLOOD SUGAR READING WILL BE OBTAINED ORDERED THROUGHOUT CERTIFICATION PERIOD. Goal Provider Goal - PATIENT/CAREGIVER WILL VERBALIZE/DEMONSTRATE KNOWLEDGE AND MANAGEMENT OF COPD BY END OF EPISODE. Goal Provider Goal - PATIENT/CAREGIVER WILL VERBALIZE/DEMONSTRATE KNOWLEDGE AND MANAGEMENT OF HEART FAILURE DISEASE PROCESS BY END OF EPISODE. Goal Provider Goal - PATIENT/CARGIVER WILL VERBALIZE UNDERSTANDING OF ANEMIA INCLUDING SIGNS AND SYMPTOMS, MANAGEMENT OF COMPLICATIONS, AND PRESCRIBED TREATMENT REGIMEN BY END OF EPISODE. Goal Provider Goal - PATIENT/CAREGIVER WILL VERBALIZE/DEMONSTRATE KNOWLEDGE OF DIABETIC MANAGEMENT. CHANGES IN DIABETIC STATUS WILL BE IDENTIFIED AND REPORTED TO PHYSICIAN FOR PROMPT INTERVENTION THROUGHOUT THE CERTIFICATION PERIOD. Goal Provider Goal - PATIENT WILL HAVE SUPPORT MEASURES ESTABLISHED TO PREVENT HOSPITALIZATION AND ED USE AND PATIENT/CAREGIVER WILL VERBALIZE/DEMONSTRATE METHODS TO REDUCE AVOIDABLE HOSPITALIZATION AND ED USE BY END OF EPISODE. Goal Provider Goal - PATIENT/CAREGIVER WILL VERBALIZE UNDERSTANDING OF DISCHARGE PLANNING INSTRUCTIONS BY DATE OF DISCHARGE. Goal Provider Goal - PATIENT/CAREGIVER WILL VERBALIZE/DEMONSTRATE EFFECTIVE HOME SAFETY AND FALL PREVENTION STRATEGIES THROUGHOUT CERTIFICATION PERIOD. Goal Provider Goal - PATIENT/CAREGIVER WILL DEMONSTRATE UNDERSTANDING OF PHARMACOLOGIC AND NONPHARMACOLOGIC PAIN CONTROL MEASURES AND PATIENT WILL HAVE IMPROVEMENT IN PAIN INTERFERING WITH ACTIVITY EVIDENCED BY PAIN CONTROLLED AT LEVEL OF 7 OR LESS BY END OF CERTIFICATION PERIOD. Goal Provider Goal - PATIENT/CAREGIVER WILL VERBALIZE UNDERSTANDING OF PRESSURE ULCER PREVENTION BY END OF THE EPISODE. Goal Provider Goal - PATIENT/CAREGIVER WILL VERBALIZE/DEMONSTRATE UNDERSTANDING OF THE MANAGEMENT OF DEPRESSION THROUGHOUT THE CERTIFICATION PERIOD AND SYMPTOMS ARE IDENTIFIED AND MANAGED TO MAINTAIN PATIENT SAFETY IN THE HOME. Reason for Visit INDEPENDENT IN THE HOME Encounters Start Date/Time End Date/Time Encounter Type Admission Type Attending [facility] Care Department Encounter ID Discharge Date Discharge Status Discharge Condition Discharge Reason Percent Goals Met 2023-10-15 00:00:00 2024-02-07 00:00:00 Outpatient RECERTIFIC ATION [facility] ED [id number] 2024-02-07 00:00:00 DISCHARGE TO HOME OR SELF CARE INDEPENDEN T IN THE HOME GOALS MET ( ONLY) 74.36
--- OUTSIDE RECORDS SUMMARY | 2024-03-26 13:38 | XMS_ITS | Patient Health Record ---
Author Organization [facility] Address [address] [place] [address] Care Team Providers Care Travelers' Aid Worker Name Role Phone Bhaskar TITUS, Anne-Marie Dennison Primary Care Provider Un available McNohemy julianine Unavailable [phone] Shashank Hunt Unavailable [phone] Allergies No Known Allergies Reason For Referral No Information Medications Medication SIG (Take, Route, Frequency, Duration) Notes Start Date End Date Status Escitalopram Oxalate 10 MG 1 tablet Orally Once a day Active Extra Depth Diabetic Shoes with 3 Pair Custom heat-molded multi-density innersoles for 1 year Dx: 11/04/2017 Not-Taking glipiZIDE 5 MG Orally Activ e prednisoLONE Not-Jacobo ing Isosorbide Dinitrate 30 MG 1 tablet Orally once a day Active Omeprazole 20 MG 1 tablet Orally Once a day Active Aspirin Once a day Active Symbicort 2 puffs Active Atorvastatin Calcium 80 MG 1 tablet Orally Once a day Active Extra Depth Diabetic Shoes with 3 Pair Custom heat-molded multi-density innersoles for 1 year Dx: 02/13/2021 Active Daily Kathleen Active Loratadine 10 MG 1 tablet Orally Once a day Active LORazepam 0.5 MG 1 tablet as needed Orally every 6 hrs Active metFORMIN HCl 1000 MG Orally twice a day Active Voltaren 1 % as directed Externally Active Metoprolol Succinate ER 25 MG 1 tablet Orally Once a day Active Immunizations Vaccine Route Administration Date Status Comme nts COVID-19 Anirudh & Anirudh/Rambo Unknown 02/13/2021 R efused Influenza Unknown 01/06/2018 Administered Influenza Unknown 01/14/2020 Administered Influenza Unknown 12/05/2023 Refused Social History Tobacco Use: Social History Observation Description Date Details (start date - stop date) Former Smoker NA - NA Tobacco Use/Smoking Question Answer Notes Are you a: former smoker Additional Findings: Tobacco Non-User Current no n-smoker Alcohol Screen Question Answer Notes Did you have a drink containing alcohol in the p ast year? No Points 0 Interpretation Negative Tobacco use other than smoking: Question Answer Notes Are you an other tobacco user? No Problems Problem Type SNOMED Code ICD Code Onset Dates Problem Status W/U Status Risk Notes Problem Acquired hallux valgus (58075348) Hallux valgus (acquired), right foot (M20.11) Active confirmed Problem Acquired hammer toe of right foot (4392894857826934 ) Other hammer toe(s) (acquired), right foot (M20.41) Active confirmed Problem Polyneuropathy due to type 2 diabetes mellitus (583961231) Type 2 diabetes mellitus with diabetic polyneuropathy (E11.42) Active confirmed Vital Signs Blood pressure diastolic 67 mm Hg 12/05/2023 Height 5ft6in in 12/05/2023 Blood pressure systolic 127 mm Hg 12/05/2023 Weight 200 lbs 12/05/2023 BMI 32.28 kg/m2 12/05/2023 Encounters Encounter Location Date Provider Diagnosis [address] [address] 12/05/2023 Shashank Hunt Tinea unguium B35.1 ; Type 2 diabetes mellitus with diabetic polyneuropathy E11.42 ; Pain in right toe(s) M79.674 ; Pain in left toe(s) M79.675 ; Other hammer toe(s) (acquired), right foot M20.41 ; Hallux valgus (acquired), right foot M20.11 ; Xerosis cutis L85.3 and In[facility] L60.[facility] [address] 07/15/[facility]23 Shashank Hunt Assessments Encounter Date Diagnosis (ICD Code) Assessment Notes Treatment Notes Treatment Clinical Notes Section Notes 12/05/2023 Tinea unguium (ICD-10 - B35.1) 12/05/2023 Type 2 diabetes mellitus with diabetic polyneuropathy (ICD-10 - E11.42) 12/05/2023 Pain in right toe(s) (ICD-10 - M79.674) 12/05/2023 Pain in left toe(s) (ICD-10 - M79.675) 12/05/2023 Other hammer toe(s) (acquired), right foot (ICD-10 - M20.41) 12/05/2023 Hallux valgus (acquired), right foot (ICD-10 - M20.11) 12/05/2023 Xerosis cutis (ICD-10 - L85.3) 12/05/2023 Ingrowing nail (ICD-10 - L60.0) Plan Of Treatment Pending Test Test Name Order Date 53791-WJVIBOP NAIL, 6 OR MORE 02/03/2018 54424-GEFHIBG NAIL, 6 OR MORE 11/04/2017 41410-NOCI SKIN LESIONS, OVER 4 02/04/20 18 20279-LKTO SKIN LESIONS, OVER 4 11/05/19 18 57562-OCAQ SKIN LESIONS, OVER 4 05/05/19 19 51712-CXVF SKIN LESIONS, OVER 4 08/05/19 19 77340-YKEM SKIN LESIONS, OVER 4 11/06/19 19 22210-SVAY SKIN LESIONS, OVER 4 02/10/20 19 10879-VQTH SKIN LESIONS, OVER 4 06/10/19 20 43266-EQTP SKIN LESIONS, OVER 4 12/09/19 20 10588-DIOL SKIN LESIONS, OVER 4 03/23/20 20 19244-FQDC SKIN LESIONS, OVER 4 07/12/19 21 74411-EDHR SKIN LESIONS, OVER 4 11/04/19 21 07916-FSLS SKIN LESIONS, OVER 4 02/14/20 21 82592-HRPJ SKIN LESIONS, OVER 4 06/05/19 22 Next Appt Details Provider Name:Mary Jane Nur kwan, 04/06/2024 01:30:00 PM, [address] [facility], [place], [address], Insurance Providers Payer Name Payer Address Payer Phone Subscriber Number Group Number Insured Name Patient Relationship to Insured Coverage Start Date Coverage End Date Medicare [facility] [employer] [address] [place] [address] [id number] Fitz Reed Self - patient is the insured [employer] [address] [place] [id number] [phone] [id number] Brianna Fitz Self - patient is the insured Medical (General) History Medical History History ICD Code Anxiety disorder rheumatoid arthritis osteoarthritis Back,Hip,and Knee pain CAD (Cholesterol) Cancer Chicken pox Heart disease Hiatal hernia Lung disease Psoriasis/eczema Reflux ( GERD) Joint implants/screws COPD gall bladder polyp Skin cancer Vascular grafts type II diabetes Surgical History Surgery Date(Month/Year) skin cancer stent insertion Hospitalization History Reason Date(Month/Year) [facility]- COPD 11/04/23 [facility] - Breathing issues 3 -4 days 11/2021 [facility] - Blood infection 09/2020 [facility]- COPD Breathing issues 06/2020
--- OUTSIDE RECORDS SUMMARY | 2024-03-26 13:38 | XMS_ITS ---
Author Organization [facility] Address [address] [place] [address] Care Team Providers Care Paste Up Worker Name Role Phone Bhaskar TITUS, Anne-Marie Dennison Primary Care Provider Un available Mary Jane Mc Unavailable [phone] Shashank Hunt Unavailable [phone] REASON FOR VISIT Painful nail(s) aggrevated by shoes and causing difficulty standing/walking. Medications Medication SIG (Take, Route, Frequency, Duration) Notes Start Date End Date Status Voltaren 1 % as directed Externally Active Encounters Encounter Location Date Provider Diagnosis [facility] [address] [place] [address] 07/15/2023 Shashank Hunt Tinea unguium B35.1 ; Type 2 diabetes mellitus with diabetic polyneuropathy E11.42 ; Pain in right toe(s) M79.674 ; Pain in left toe(s) M79.675 ; Other hammer toe(s) (acquired), right foot M20.41 ; Hallux valgus (acquired), right foot M20.11 ; Xerosis cutis L85.3 and Ingrowing nail L60.0 Assessments Encounter Date Diagnosis (ICD Code) Assessment Notes Treatment Notes Treatment Clinical Notes Section Notes 07/15/2023 Tinea unguium (ICD-10 - B35.1) 07/15/2023 Type 2 diabetes mellitus with diabetic polyneuropathy (ICD-10 - E11.42) 07/15/2023 Pain in right toe(s) (ICD-10 - M79.674) 07/15/2023 Pain in left toe(s) (ICD-10 - M79.675) 07/15/2023 Other hammer toe(s) (acquired), right foot (ICD-10 - M20.41) 07/15/2023 Hallux valgus (acquired), right foot (ICD-10 - M20.11) 07/15/2023 Xerosis cutis (ICD-10 - L85.3) 07/15/2023 Ingrowing nail (ICD-10 - L60.0) Plan Of Treatment Medication Medication Name Sig Start Date Stop Date Notes Voltaren 1 % as directed Externally Next Appt Details Follow Up: 4 Months, Reason: Provider Name:Mary Jane Echolsmaxwell bowens, 04/06/2024 01:30:00 PM, [address] [place] [address], [phone], Procedure Notes * Category Sub-Category Detail Notes Debride Nail 6-10 Nail debridement Nail debridem ent performed extensively to reduce/remove overall nail length and girth, subungual debris, and necrotic tissue, by manual and electrical means with use of a nail nipper and/or dremel, to more viable healthy nail plate or bed tissue 6-10. Silver nitrate used for any petechial bleeding as necessary. Patient chooses, no pharmaceutical tx (05101) Keratoma Treatment Parring or Cutting o f Benign Hyperkeratotic Lesion(s) 90721 ( >4 Lesions) - The Benign hyperkeratotic lesions, as described above were pared, and/or cut utilizing a sterile #15 blade, tissue nippers, and/or dremel Progress Notes * Sukhjinder REEDOB: 0 (74 yo M)Acc No.[id number]:07/15/2023 Progress Note Patient:?Prema REEDo Provider:?Shashank Hunt DPM :1950???Age:73 Y???Sex:Male Jose e:07/15/2023 Address:[address] [place], [place] [address] Pcp:Eddie Isabel Subjective: * Chief Complaints: * ???1. Painful nail(s) aggrev ated by shoes and causing difficulty standing/walking.. * HPI: ???Painful Nails:?Pt States Last PCP Visit:?Date:?03/08/2023 ???Foot Pain:?Nature:?tenderness, stiffness.?Location:?Bottom, Forefoot, B/L.?Duration:?several months.?Onset:?unknown.?Course:?progressive.?Aggravated:?rest.?Severity/Quality:?moderate.? * ROS:?General/Constitutional:?Nausea?denies.?Vomiting?denies.?Hunger Thirst?admits.?Loss appetite?denies.?Chills?denies.?Fatigue?admits.?Fever?denies.?Night Sweats?denies.?Unexplained weight loss?denies.?Unexplained weight gain?denies.?HEENTM:?Dentures?denies.?Dizziness?admits.?Glasses/contacts?admits.?Retinopathy?de nies.?Blurred/double vision?denies.?TMJ?denies.?Discharge/drainage?denies.?Implants?denies.?Sore throat?denies.?Dental implants?denies.?Hard of hearing ?denies.?Difficulty chewing/swallowing/speaking?denies.?Nose bleeds?denies.?Sore mouth?denies.?Respiratory:?On Oxygen?admits.?Pneumonia/pleurisy?admits.?Bronchitis?admits.?Emphysema?admits.?C oughing?denies.?Cough blood?denies.?Shortness of breath?admits.?Wheezing?admits.?Cardiovascular:?Pacemaker?denies.?MVP?denies.?WPW?denies.?CHF?denies.?Heart attack?denies.?Septal defect?denies.?Rapid beat?denies.?Chest pain ?denies.?Atrial Fib.?denies.?Murmur/Palpitations?admits.?Gastrointestinal:?Hemorrhoids?denies.?Stomach/Abdominal pain?denies.?Dark blood stool?denies.?Irritable bowel ?denies.?Constipation?denies.?Diarrhea?admits.?Hematology:?Swelling?denies.?Clots?denies.?Varicose Veins?denies.?Bruising?denies.?Bleeding problem?denies.?Genitourinary:?Blood urine?denies.?Frequent/Painfu/urination/bladder control?denies.?Kidney stones?denies.?Infection (UTI)?denies.?Nephropathy?denies.?sex trans dis (STD)?denies.?Prostate?denies.?Musculoskeletal:?Hammertoes?denies.?Bunions?denies.?Back Pain?admits.?Muscle Cramps/ Resting?admits.?Muscle cramps / walking?admits.?Generalized aches and pains?admits.?Weakness?admits.?Integ.:?Johnson?denies.?Scars?denies.?Corns/calluses?denies.?Ingrown nails?denies.?Painful nails?denies.?Open Sores?denies.?Rashes?denies.?Neurologic:?Difficulty sleeping?admits.?Brain disorder?denies.?Numbness?admits.?Balance trouble?denies.?Confusion?denies.?Fainting/blackouts?denies.?Tingling?admits.?Tr emors?denies.? * Medical History:? Objective: * Vitals:? * Examination: ???General Examination: ?GENERAL APPEARANCE:?pleasant, alert, well nourished, well developed, well hydrated, with good attention to hygene/body habitus, and in no acute distress.?ORIENTED:?person,place, and time.?Ophthalmology Referral: ?DIABETES EYE EXAM?Neurological: ?SENSORY:?exam demonstrates. reduced vibration lower extremity , at Forefoot, at Midfoot, at Rearfoot, B/L, 5.07 monofilament test performed at plantar aspects of 5 varied sites per foot shows sensation, reduced, B/L.?TINEL'S COMPRESSION:?Negative tarsal tunnel, viral pedis, and medial calcaneal nerves B/L.?BABINSKI REFLEX:?absent.?Vascular: ?DP PULSES (B):?0/4. B/L.?PT PULSES (B):?1/4, B/L.?CAPILLARY FILL TIME:?3 secs. per digit, B/L.?TROPHIC CONDITION-TEXTURE/ELASTICITY/TURGOR/HAIR GROWTH (B):?normal, B/L.?TEMPERTURE GRADIENT (C):?warm to cool, proximal to distal, B/L.?PIGMENTATION:?normal, B/L.?EDEMA (C):?1/4, B/L, Ankle(s), Leg(s).?TELANGECTASIA:?absent.?VARICOSITIES:?absent.?Nails: ?NAILS are:?Elongated, overgrown, dystrophic, lytic, greater than 3mm thick, discolored and friable with crumbly malodorous subungual debris, with dull to no pain on palpation due to neuropathy, 1-5 B/L.?Dermatologic: ?SKIN FINDINGS:?Skin exam reveals keratotic lesion(s) located at , SUB MTH (s), 1, B/L, SUB MTH (s), 4, 5, Right, Heel(s), B/L, Skin shows sign(s) of, dryness, scaling, in a stocking fashion, no fissure(s) present, B/L, Skin exam reveals Keratotic lesion(s) located at, SUB MTH (s), 4, Right .?Orthopedic: ?MUSCLE STRENGTH:?5/5 all groups in a symmetrical fashion , B/L.?GAIT ABNORMALITY:?pronated, abducted, B/L.?Ingrown Nail: ?INSPECTION:? Reveals nail incurvation, pain on palpation, groove hypertrophy, groove ischemia, Bilateral nail borders, TA, T5.? Assessment: * Assessment: 1.?Tinea unguium - B35.1 (Pr imary)???2.?Type 2 diabetes mellitus with diabetic polyneuropathy - E11.42???3.?Pain in right toe(s) - M79.674???4.?Pain in left toe(s) - M79.675???5.?Other hammer toe(s) (acquired), right foot - M20.41???6.?Hallux valgus (acquired), right foot - M20.11???7.?Xerosis cutis - L85.3???8.?Ingrowing nail - L60.0??? Plan: * Treatment: * Procedures:?Debride Nail 6-10:?Nail debridement?Nail debridement performed extensively to reduce/remove overall nail length and girth, subungual debris, and necrotic tissue, by manual and electrical means with use of a nail nipper and/or dremel, to more viable healthy nail plate or bed tissue 6-10. Silver nitrate used for any petechial bleeding as necessary. Patient chooses, no pharmaceutical tx (38859).?Keratoma Treatment:?Parring or Cutting of Benign Hyperkeratotic Lesion(s)?14107 ( >4 Lesions) - The Benign hyperkeratotic lesions, as described above were pared, and/or cut utilizing a sterile #15 blade, tissue nippers, and/or dremel.? * Procedure Codes:?81893 DEBRI DE NAIL, 6 OR MORE, Modifiers: XS , 24075 TRIM SKIN LESIONS, OVER 4, Modifiers: XS * Follow Up:?4 Months * Images: * The named appointment provid er may or may not be the originator of this progress note, and it is not deemed complete until electronically signed by the appointment provider. Sign off status: Pending * Provider:?Shashank Hunt DPM Date:? 024 Generated for Rosanna clay/Barbara/eTransmitting on:?03/26/2024 01:38 PM EST History and Physical Notes * HPI (History of Present Illness) Category Sub-Category Detail Notes Category Not es Painful Nails Pt States Last PCP Visit: Date:: 03/08/2023 Foot Pain Nature: tenderness, stiffness Location: Bottom, Forefoot, B/ L Duration: several months Onset: unknown Course: progressive Aggravated: rest Severity/Quality: moderate Examination Category Sub-Category Detail Notes Category Not es Ingrown Nail INSPECTION: Reveals nail inc urvation, pain on palpation, groove hypertrophy, groove ischemia, Bilateral nail borders, TA, T5 Neurological SENSORY: exam demonstrate s. reduced vibration lower extremity , at Forefoot, at Midfoot, at Rearfoot, B/L, 5.07 monofilament test performed at plantar aspects of 5 varied sites per foot shows sensation, reduced, B/L BABINSKI REFLEX: absent TINEL'S COMPRESSION: Negative tarsal veronica hussein, viral pedis, and medial calcaneal nerves B/L Dermatologic SKIN FINDINGS: Skin exam reveal s keratotic lesion(s) located at , SUB MTH (s), 1, B/L, SUB MTH (s), 4, 5, Right, Heel(s), B/L, Skin shows sign(s) of, dryness, scaling, in a stocking fashion, no fissure(s) present, B/L, Skin exam reveals Keratotic lesion(s) located at, SUB MTH (s), 4, Right Orthopedic GAIT ABNORMALITY: pronated, abducted, B/L MUSCLE STRENGTH: 5/5 all groups in a symmetrical fashion , B/L General Examination GENERAL APPEARANCE: pleasant , alert, well nourished, well developed, well hydrated, with good attention to hygene/body habitus, and in no acute distress ORIENTED: person,place, and ti nh Ophthalmology Referral DIABETES EYE EXAM Diabetic Reti nopathy Screening:: No 2020 Findings of Diabetic Eye Exam:: no retin opathy Vascular DP PULSES (B): 0/4. B/L PT PULSES (B): 1/4, B/L CAPILLARY FILL TIME: 3 secs. per digit, B/L TEMPERTURE GRADIENT (C): warm to cool, p roximal to distal, B/L TROPHIC CONDITION-TEXTURE/ELASTICITY/TURGOR/HAIR GROWTH (B): normal, B/L EDEMA (C): 1/4, B/L, Ankle(s), Leg(s) TELANGECTASIA: absent VARICOSITIES: absent PIGMENTATION: normal, B/L Nails NAILS are: Elongated, overg rown, dystrophic, lytic, greater than 3mm thick, discolored and friable with crumbly malodorous subungual debris, with dull to no pain on palpation due to neuropathy, 1-5 B/L
--- OUTSIDE RECORDS SUMMARY | 2024-03-26 13:38 | XMS_ITS ---
Author Organization [facility] Address [address] [place] [address] Care Team Providers Care Machine Milker Name Role Phone Bhaskar TITUS, Anne-Marie Dennison Primary Care Provider Un available Mary Jane Mc Unavailable [phone] Shashank Hunt Unavailable [phone] REASON FOR VISIT SD Reschedule/Cancel Encounters Encounter Location Date Provider Diagnosis [address] [address] 07/15/2023 Shashank Hunt Plan Of Treatment Next Appt Details Provider Name:Mary Jane bowens, 04/06/2024 01:30:00 PM, [address] [place] [address], [phone], Progress Notes * CHERELLE SukhjinderOB: 0 (73 yo M)Acc No.[id number]:07/15/2023 Patient:?Fitz Reed :1950???Age:73 Y???Sex:Male Address:[address] [place] [address], [phone] * true * Date:? Generated for Printi ng/Faxing/eTransmitting on:?03/26/2024 01:38 PM EST
--- OUTSIDE RECORDS SUMMARY | 2024-03-26 13:38 | XMS_ITS ---
Author Organization [facility] Address [address] [facility] [place] [address] Care Team Providers Care Building Supplies Salesperson Retail Name Role Phone Bhaskar TITUS, Anne-Marie Dennison Primary Care Provider Un available Mc, Mary Jane Unavailable [phone] Shashank Hunt Unavailable [phone] Allergies No Known Allergies REASON FOR VISIT Painful nail(s) aggrevated by shoes and causing difficulty standing/walking. Medications Medication SIG (Take, Route, Frequency, Duration) Notes Start Date End Date Status Escitalopram Oxalate 10 MG 1 tablet Orally Once a day Active prednisoLONE Not-Jacobo ing Aspirin Once a day Active Atorvastatin Calcium 80 MG 1 tablet Orally Once a day Active Daily Kathleen Active Extra Depth Diabetic Shoes with 3 Pair Custom heat-molded multi-density innersoles for 1 year Dx: 11/04/2017 Not-Taking Omeprazole 20 MG 1 tablet Orally Once a day Active Symbicort 2 puffs Active Extra Depth Diabetic Shoes with 3 Pair Custom heat-molded multi-density innersoles for 1 year Dx: 02/13/2021 Active Metoprolol Succinate ER 25 MG 1 tablet Orally Once a day Active Isosorbide Dinitrate 30 MG 1 tablet Orally once a day Active Loratadine 10 MG 1 tablet Orally Once a day Active LORazepam 0.5 MG 1 tablet as needed Orally every 6 hrs Active metFORMIN HCl 1000 MG Orally twice a day Active Voltaren 1 % as directed Externally Active glipiZIDE 5 MG Orally Activ e Immunizations Vaccine Route Administration Date Status Comme nts Influenza Unknown 12/05/2023 Refused Social History Tobacco Use: Social History Observation Description Date Details (start date - stop date) Former Smoker NA - NA Tobacco Use/Smoking Question Answer Notes Are you a: former smoker Additional Findings: Tobacco Non-User Current no n-smoker Tobacco use other than smoking: Question Answer Notes Are you an other tobacco user? No Vital Signs Height 5ft6in in 12/05/2023 Weight 200 lbs 12/05/2023 BMI 32.28 kg/m2 12/05/2023 Blood pressure systolic 127 mm Hg 12/05/19 24 Blood pressure diastolic 67 mm Hg 024 Encounters Encounter Location Date Provider Diagnosis [facility] [address] [place] [address] 12/05/2023 Shashank Hunt Tinea unguium B35.1 ; [...] Up: 4 Months, Reason: Provider Name:Mary Jane bowens, 04/06/2024 01:30:00 PM, [address] [place], [address], Procedure Notes * Category Sub-Category Detail Notes [...] as necessary. Patient chooses, no pharmaceutical tx (26168) Keratoma Treatment Parring or Cutting o f Benign Hyperkeratotic Lesion(s) 78957 ( >4 Lesions) - The Benign hyperkeratotic lesions, as described above were pared, and/or cut utilizing a sterile #15 blade, tissue nippers, and/or dremel Progress Notes * Sukhjinder REEDOB: 0 (73 yo M)Acc No.[id number]:12/05/2023 Progress Note Patient:?Fitz Reed Provider:?Shashank Hunt DPM :1950???Age:73 Y???Sex:Male Jose e:12/05/2023 Address:[address] [place], [place] [address] Pcp:Eddie Isabel Subjective: * Chief Complaints: * ??? Painful nail(s) aggrevat ed by shoes and causing difficulty standing/walking. * HPI: ???Painful Nails:?Pt States Last PCP Visit:?Date:?11/04/2023 ???Foot Pain:?Nature:?tenderness, stiffness.?Location:?Bottom, Forefoot, B/L.?Duration:?several months.?Onset:?unknown.?Course:?progressive.?Aggravated:?rest.?Severity/Quality:?moderate.? * [...] sleeping?admits.?Brain disorder?denies.?Numbness?admits.?Balance trouble?denies.?Confusion?denies.?Fainting/blackouts?denies.?Tingling?admits.?Tr emors?denies.? * Medical History:? * Surgical History:?skin cance r stent insertion * Hospitalization/Major Diagno stic Procedure:?[facility] COPD Bre[facility] issues [facility] 09/2020[facility] - Breathing issues 3 -4 days 11/2021[facility]- COPD 11/04/23 * Family History:?Mother: dece ased, diagnosed with Diabetic - NIDDM, Other malignant neoplasm of unspecified site.?Father: , diagnosed with Diabetic - NIDDM, Other malignant neoplasm of unspecified site.?Siblings: brother & sister heart attack, diagnosed with Unspecified heart disease.? * Social History:?Tobacco Use:?Tobacco Use/Smoking?Are you a:?former smoker ?Additional Findings: Tobacco Non-User?Current non-smoker ?Tobacco use other than smoking?Are you an other tobacco user??No ???Miscellaneous:?Caffeine: yes, frequency:, , 2-3 cups per day. ?Children: yes, 3. ?no Exercise. ?Marital status: . ?Occupation: Retired-[employer]. * Medications:?TakingAspirin O nce a dayAtorvastatin Calcium 80 MG Tablet 1 tablet Orally Once a dayDaily Kathleen Escitalopram Oxalate 10 MG Tablet 1 tablet Orally Once a dayglipiZIDE 5 MG Tablet Orally Isosorbide Dinitrate 30 MG Tablet 1 tablet Orally once a dayLoratadine 10 MG Tablet 1 tablet Orally Once a dayLORazepam 0.5 MG Tablet 1 tablet as needed Orally every 6 hrsmetFORMIN HCl 1000 MG Tablet Orally twice a dayMetoprolol Succinate ER 25 MG Tablet Extended Release 24 Hour 1 tablet Orally Once a dayOmeprazole 20 MG Tablet Delayed Release 1 tablet Orally Once a daySymbicort 2 puffs Extra Depth Diabetic Shoes with 3 Pair Custom heat-molded multi-density innersoles for 1 year Dx:Voltaren 1 % Gel as directed Externally Taking Aspirin Once a dayTaking Atorvastatin Calcium 80 MG Tablet 1 tablet Orally Once a dayTaking Daily Kathleen Taking Escitalopram Oxalate 10 MG Tablet 1 tablet Orally Once a dayTaking glipiZIDE 5 MG Tablet Orally Taking Isosorbide Dinitrate 30 MG Tablet 1 tablet Orally once a dayTaking Loratadine 10 MG Tablet 1 tablet Orally Once a dayTaking LORazepam 0.5 MG Tablet 1 tablet as needed Orally every 6 hrsTaking metFORMIN HCl 1000 MG Tablet Orally twice a dayTaking Metoprolol Succinate ER 25 MG Tablet Extended Release 24 Hour 1 tablet Orally Once a dayTaking Omeprazole 20 MG Tablet Delayed Release 1 tablet Orally Once a dayTaking Symbicort 2 puffs Taking Extra Depth Diabetic Shoes with 3 Pair Custom heat-molded multi-density innersoles for 1 year Dx:Taking Voltaren 1 % Gel as directed Externally Not-Taking/PRNExtra Depth Diabetic Shoes with 3 Pair Custom heat-molded multi-density innersoles for 1 year Dx:prednisoLONE Medication List reviewed and reconciled with the patientNot-Taking/PRN Extra Depth Diabetic Shoes with 3 Pair Custom heat-molded multi-density innersoles for 1 year Dx:Not-Taking/PRN prednisoLONE Medication List reviewed and reconciled with the patient * Allergies:?N.K.D.A.yes[Aller gies Verified] Objective: * Vitals:?Ht: 5ft6in, Wt:200, BMI:32.28, Shoe size: 9, BP:127/67 mm Hg, BS: not taklen, Ht-cm: 167.64 cm, Wt-k.72 kg. * Examination: ???General Examination: ?GENERAL APPEARANCE:?pleasant, alert, [...] tunnel, viral pedis, and medial calcaneal nerves B/L .?BABINSKI REFLEX:?absent .?Vascular: ?DP PULSES:?0/4. B/L .?PT PULSES:?1/4, B/L.?CAPILLARY FILL TIME:?3 secs. per digit, B/L .?SKIN TEMPERTURE GRADIENT OF THE LOWER EXTERMITIES:?warm to cool, proximal to distal, B/L .?HAIR GROWTH/TEXTURE/ELASTICITY/TURGOR:?normal, B/L .?PIGMENTATION:?normal, B/L .?EDEMA:?1/4, B/L, Ankle(s), Leg(s).?TELANGECTASIA:?absent .?VARICOSITIES:?absent .?Nails: ?NAILS are:?Elongated, overgrown, dystrophic, lytic, greater than [...] * Assessment: 1.?Tinea unguium - B35.1 (Pr imary)?2.?Type 2 diabetes mellitus with diabetic polyneuropathy - E11.42?3.?Pain in right toe(s) - M79.674?4.?Pain in left toe(s) - M79.675?5.?Other hammer toe(s) (acquired), right foot - M20.41?6.?Hallux valgus (acquired), right foot - M20.11?7.?Xerosis cutis - L85.3?8.?Ingrowing nail - L60.0? Plan: * Treatment: * Procedures:?Debride Nail 6-10:?Nail debridement?Nail debridement performed extensively to reduce/remove overall nail length and girth, subungual debris, and necrotic tissue, by manual and electrical means with use of a nail nipper and/or dremel, to more viable healthy nail plate or bed tissue 6-10. Silver nitrate used for any petechial bleeding as necessary. Patient chooses, no pharmaceutical tx (75688).?Keratoma Treatment:?Parring or Cutting of Benign Hyperkeratotic Lesion(s)?20004 ( >4 Lesions) - The Benign hyperkeratotic lesions, as described above were pared, and/or cut utilizing a sterile #15 blade, tissue nippers, and/or dremel.? * Immunizations:? Influenza (Not administered - Refused: Patient decision) * Procedure Codes:?86997 DEBRI DE NAIL, 6 OR MORE, Modifiers: XS 53053 TRIM SKIN LESIONS, OVER 4, Modifiers: XS * Follow Up:?4 Months * Images: * Sign off status: Completed true * Provider:?Shashank Hunt DPM Date:? 024 Generated for Rosanna clay/Barbara/eTransmitting on:?03/26/2024 01:37 PM EST History and Physical Notes * HPI (History of Present Illness) Category Sub-Category Detail Notes Category Not es Painful Nails Pt States Last PCP Visit: Date:: 11/04/2023 Foot Pain Nature: tenderness, stiffness Location: Bottom, [...] no acute distress ORIENTED: person,place, and ti ri Ophthalmology Referral DIABETES EYE EXAM Diabetic Reti nopathy Screening:: Yes 2023 Findings of Diabetic Eye Exam:: no retin [...]
[2024-03-26 13:58] VITALS: BP 110/64; PULSE 66; O2SAT 95; BMI 40.2
--- NOTE | 2024-03-26 13:58 | A.OFFPC_ITS ---
Vital Signs 03/26/24 13:58 Height 5 ft Weight 206 lb BMI 40.2 BP 110/64 Blood Pressure Location Rt brachial Position Sitting Pulse 66 Pulse Source Pulse Oximeter Pulse Oximetry (%) 95 Oxygen Delivery Method Nasal Cannula Intake Visit Reasons: follow up March Note: Pt is here today for his f/u Allergies fluticasone furoate [From Trelegy Ellipta] Allergy (Intermediate, Verified 03/29/24 16:54) Rash vilanterol [From Trelegy Ellipta] Allergy (Intermediate, Verified 03/29/24 16:54) Rash umeclidinium [Incruse Ellipta] Allergy (Unknown, Verified 03/29/24 16:54) Hives furosemide [From Lasix] Adverse Reaction (Intermediate, Verified 03/29/24 16:54) Hallucinations Medication List - Last Reconciled 03/29/24 by Anne-Marie Muro MD albuterol sulfate 90 mcg/actuation (Ventolin HFA) 2 puffs inhalation Q4-6H PRN albuterol sulfate 90 mcg/actuation 2 puffs PO Q4H PRN atorvastatin 80 mg PO BEDTIME bisacodyl (Dulcolax (bisacodyl)) 10 mg (2 x 5 mg) PO ONCE 5 days blood sugar diagnostic (FreeStyle Lite Strips) check fasting glucose once a day AC blood-glucose meter (FreeStyle Lite Meter kit) As directed budesonide-formoterol 160-4.5 mcg/actuation (Symbicort) 2 puffs inhalation DAILY calcium carbonate-vitamin D3 600 mg-10 mcg (400 unit) 1 tab PO DAILY escitalopram oxalate 20 mg PO DAILY glipizide 5 mg PO BID ipratropium-albuterol 0.5 mg-3 mg(2.5 mg base)/3 mL 3 mL inhalation Q6H PRN lancets (FreeStyle Lancets) Test blood sugar twice lorazepam (Ativan) 0.5 mg (1/2 x 1 mg) PO BID PRN metformin 1,000 mg PO BID metoprolol tartrate 25 mg PO BID omeprazole 20 mg PO DAILY@0630 Oxygen Home Use As directed polyethylene glycol 3350 (Miralax) 17 grams PO DAILY 1 day Trulicity (dulaglutide) 0.75 mg (0.5 mL) subcut QWEEK 30 days NS Tobacco use date assessed: 03/26/24 Fall risk assessment: No Falls in past year Last assessed Fall Risk: 03/26/24 Dental Screening Dental Screen Date: 03/26/24 Did you have a dental visit in the last 12 months?: No Did you have a dental problem in the last 6 months where you did not have access to dental care?: No Was dental information given to patient?: Patient declined HPI follow up March Details - The patient is a 74-year-old male pres for a follow up - he has Chronic Obstructive Pulmonary D isease (COPD) . Experiencing persistent shortness of breath despite CPAP usage initiated last summer. No improvement noted; suspicion of incorrect CPAP settings or need for further evaluation with sleep study. He is followed by mobile marketing specialist, Dr. Marr - Anemia diagnosed with a hemoglobin lev el of 11.2 g/dL noted during recent blood tests. Possible contribution to fatigue and shortness of breath. - History of obstructive sleep apnea alayna ng managed with a CPAP machine since the summer, but complications with machine settings suspected. Initial benefit followed by a decline in effectiveness. - Follow-up required for lung cancer scr eening. Scheduled for a CT scan for lung evaluation on March 27. - Hyperlipidemia not evaluated in recent tests; awaiting cholesterol level check upon fasting. - Type 2 Diabetes Mellitus suboptimally controlled due to inability to afford prescribed medication (Dulaglutide) despite insurance coverage. Impacts on weight discussed. - Positive Cologuard test necessitating further evaluation. Awaiting CT colonography due to high anesthesia risk from COPD condition. [facility] Medical History Positive colorectal cancer screening using Cologuard test Respiratory failure with hypoxia and hypercapnia Bilateral carotid artery disease CAD (coronary artery disease) Anxiety and depression Constipation Anemia Chronic respiratory failure with hypoxia and hypercapnia Radiation fibrosis of lung Acute on chronic respiratory failure with hypoxia and hypercapnia HTN (hypertension) Dyslipidemia History of pneumonia Bacteremia due to Enterococcus COPD, severe Diabetes mellitus with hyperglycemia, without long-term current use of insulin Urinary incontinence Asthma Lung cancer Skin cancer Surgical History Hx of heart artery stent History of esophagogastroduodenoscopy (EGD) Hx of colonoscopy Family History Father Medical history non-contributory Mother Medical history non-contributory Unknown family medical history Lung collapse Brother No problems noted. Brother No problems noted. Son Substance use disorder Son No problems noted. Daughter No problems noted. Sister No problems noted. Sister No problems noted. Sister No problems noted. Sister No problems noted. Other HTN (hypertension) Social History Household Members: Spouse Household Members Other:: grandson Housing: Apartment Are you a primary post acute care registered nurse to a significant other at home: No Do you presently have visiting nurse or other home services: No Alcohol intake: never Patient Tobacco Use Status: Former Tobacco user Tobacco use type: Cigarette e-Cigarette/Vaping Use: Never Used Advance Directives Date on File: 06/08/22 service: No Current occupational status: retired Cognitive needs: No Hearing needs: No Vision needs: No Questionnaire Thrive Questionnaire Date Thrive assessed: 10/28/23 I am a: Parent/Caregiver What is your living situation today?: I have a steady place to live Within the past 12 months, did the food you bought not last and you didn't have the money to get more?: Sometimes True Within the past 12 months, did you worry whether your food would run out before you got money to buy more?: Sometimes True Do you have trouble paying for medicines?: No Do you have trouble getting transportation to medical appointments?: No Do you have trouble paying your heating and electricity bill?: No Do you have trouble taking care of your child, family member or friend?: Yes Do you have trouble with day-to-day activities such as bathing, preparing meals, shopping, managing finances, etc.?: Yes Are you currently unemployed and looking for a job?: No Are you interested in more education?: No Please select the resources that you would like help with: None Currently or been in a relationship where the following occur: No concerns reported THRIVE Score: 2 AUDIT C Alcohol Use Questionnaire (AUDIT-C) 3. How often do you have six or more drinks on one occasion?: Never Total Score: 0 SAUMYA-7 AMB Questionnaire SAUMYA-7 Date SAUMYA - 7 assessed: 09/21/22 Source: Developed by Drs. Finn Stevens, Klaudia Bonilla, Reinaldo Suero and colleagues, with an educational lolita from [employer]. Review of Systems Const Reports fatigue, Denies fever(s), Denies headache(s) and Reports weight gain ENT Reports Normal hearing present, Denies dysphagia, Denies dizziness, Denies headache(s) and Reports hoarseness Card Denies chest pain, Denies leg edema, Reports dyspnea and Denies dyspnea on exertion Resp Reports cough, Reports dyspnea, Denies dyspnea on exertion and Reports wheezing GI Reports abdominal pain, Denies change in bowel habits, Denies dysphagia and Denies heartburn Denies dysuria and Reports urinary frequency Musc Denies back pain, Reports arthralgias and Reports other (arthritis) Skin/Breast Denies pruritus, Reports rash and Denies jaundice Neuro Reports Normal hearing present, Denies Abnormal speech present, Denies dizziness, Denies headache(s) and Denies seizure-like activity Psych Reports anxiety, Denies depression and Denies panic attacks Endo Denies cold intolerance, Reports fatigue, Denies flushing and Denies heat intolerance John/Lymph Denies easy bleeding and Denies easy bruising Aller/Immun Reports wheezing Physical exam (Primary Care) Vital Signs: Last Vital Signs Pulse 66 03/26/24 13:58 BP 110/64 03/26/24 13:58 Pulse Ox 95 03/26/24 13:58 Oxygen Delivery Method Nasal Cannula 03/26/24 13:58 BMI result Body Mass Index 40.2 Tobacco/Smoking Status: Tobacco use Status Tobacco use date assessed 03/26/24 03/26/24 14:00 Patient Tobacco Use Status Former Tobacco user 03/26/24 14:00 Tobacco use type Cigarette 03/26/24 14:00 e-Cigarette/Vaping Use Never Used 03/26/24 14:00 Thrive Assessment: Date of Thrive Assessment Date Thrive assessed 10/28/23 03/26/24 14:00 Currently or been in a relationship where the following occur: No concerns reported Const Other: Accompanied by General: no acute distress, alert and awake Orientation/consciousness: patient oriented x3 HENMT Head: Yes normocephalic Ears: external ears normal General nose exam: Normal external nose present Face and sinus: Yes face symmetric Mouth: Normal oral and palatal mucosa present and moist mucous membranes Neck Neck: Yes full ROM, Yes no lymphadenopathy and Yes supple Resp Other: Diminished breath sounds bilateral, no wheezing, on continuous O2 by nasal cannula at 3 L Cardio Rate: regular rate Rhythm: regular rhythm Heart sounds: S1 normal heart sound present and S2 normal heart sound present GI Inspection: Yes obesity Palpation (GI): Soft to palpation, nontender, no guarding and no masses General: Yes no CVA tenderness Back/Spine/Pelvis Back: no CVA tenderness and No back tenderness Neuro General: patient oriented x3, moves all extremities, no focal motor deficits and CN's II-XI intact bilaterally Cranial nerves: Yes Normal hearing present Speech: No Abnormal speech present Extrem General: Yes full ROM, Yes no joint enlargement and Yes no pedal edema Psych Appearance: grossly normal Mental Status: mental status grossly normal Speech and movement: Normal speech and movement present Affect: normal affect Attitude: cooperative Thought process: Normal thought process present Thought content: Normal thought content present Coding Level of Care Code Est Pt Level 4 (01959) Complex EM visit Add On G2211 Diagnoses Positive colorectal cancer screening using Cologuard test R19.5 Anxiety and depression F41.9; F32.A Type 2 diabetes mellitus with hyperglycemia, without long-term current use of insulin E11.65 Diabetes mellitus type: type 2 COPD, severe J44.9 Dyslipidemia E78.5 Assessment & Plan Assessment & Plan (1) Positive colorectal cancer screening using Cologuard test: Code(s): R19.5 - Other fecal abnormalities Category: Medical Plan: Scheduled for CT colonography (2) Anxiety and depression: Code(s): F41.9 - Anxiety disorder, unspecified; F32.A - Depression, unspecified Category: Medical Plan: Continue with escitalopram 20 mg daily and takes lorazepam as needed for acute anxiety attacks (3) Diabetes mellitus with hyperglycemia, without long-term current use of insulin: Code(s): E11.65 - Type 2 diabetes mellitus with hyperglycemia Category: Medical Qualifiers: Diabetes mellitus type: type 2 Qualified Code(s): E11.65 - Type 2 diabetes mellitus with hyperglycemia Plan: Patient advised to get fasting labs done including hemoglobin A1c, meantime will continue on present treatment until results of tests available for review (4) COPD, severe: Code(s): J44.9 - Chronic obstructive pulmonary disease, unspecified Category: Medical Plan: Followed by Dr. Najeebi , on Symbicort and uses albuterol as needed for episodes of bronchospasm. Currently using CPAP, awaiting adjustment of settings (5) Dyslipidemia: Code(s): E78.5 - Hyperlipidemia, unspecified Category: Medical Plan: Get fasting lipid levels checked, lab ordered, continue atorvastatin 80 mg at bedtime
== END 2024-03-26 14:44 | disposition home or self-care (01) ==
PROVIDERS: PCP Internal Medicine; Visit Provider Internal Medicine
DX: E11.65 Type 2 diabetes mellitus with hyperglycemia (principal); J44.9 Chronic obstructive pulmonary disease, unspecified; R19.5 Other fecal abnormalities; F41.9 Anxiety disorder, unspecified; F32.A Depression, unspecified; E78.5 Hyperlipidemia, unspecified

== ENCOUNTER → 2024-03-26 13:35 | Outpatient (BNVA) | payer MEDICARE, SELFPAY | PROVIDERS: PCP Internal Medicine; Visit Provider Internal Medicine | DX: R19.5 Other fecal abnormalities (principal); F41.3 Other mixed anxiety disorders; F32.A Depression, unspecified; E11.65 Type 2 diabetes mellitus with hyperglycemia; E78.5 Hyperlipidemia, unspecified; J44.9 Chronic obstructive pulmonary disease, unspecified | CPT/HCPCS: 99212 ==

== ENCOUNTER 2024-03-27 08:50 | Outpatient (REF) | payer MEDICARE, SELFPAY ==
--- NOTE | ~2024-03-27 | CT_ITS ---
EXAMINATION: CT CHEST WITH CONTRAST CLINICAL INFORMATION: Follow-up lung cancer COMPARISON: CT angiogram chest 02/18/2023 TECHNIQUE: Multidetector volumetric CT imaging of the chest was obtained after the administration of 65 mL of Omnipaque 350 intravenous contrast without immediate adverse reactions. Axial MIP volume rendering provided. Sagittal and coronal reformatted images were obtained. This CT examination was performed using dose optimization techniques as appropriate, variously including the following: *Automated exposure control *Adjustment of mA and/or kV according to patient size (this includes techniques or standardized protocols for targeted exams where dose is matched to indication/reason for exam; i.e. extremities or head) *Use of iterative reconstruction technique DLP: 170 mGy-cm FINDINGS: LUNGS: Again seen is a left apical opacity best appreciated on coronal imaging with associated left upper lobe collapse. No significant interval change when compared to prior. No suspicious lung nodules are seen. MEDIASTINUM: The mediastinum is normal. CORONARY ARTERY CALCIUM: Extensive VASCULAR: Heart size normal. The aorta demonstrates atherosclerotic change without aneurysm. PLEURA: There is resolution of the previously seen right pleural effusion. No left effusion is seen. AXILLA: No lymphadenopathy. UPPER ABDOMEN: Nonobstructing 8 mm partially visualized right renal calculus. Visualized upper abdomen otherwise unremarkable OSSEOUS STRUCTURES: Degenerative changes are present along with some mild compression fractures of lower thoracic vertebral bodies. CT/CT chest w IV con IMPRESSION: 1. Stable left apical opacity with associated left upper lobe collapse. 2. Resolution of right pleural effusion. 3. Other incidental findings as described above. Fleischner guidelines were followed. Electronically signed by: Franco Stiles MD 03/30/2024 01:22 PM BRITANY
--- OUTSIDE RECORDS SUMMARY | 2024-03-27 09:02 | XMS_ITS ---
Author Organization [facility] Address [address] [place] [address] Care Team Providers Care Financial Management Name Role Phone Bhaskar TITUS, Anne-Marie Dennison Primary Care Provider Un available Mary Jane Mc Unavailable [phone] Shashank Hunt Unavailable [phone] REASON FOR VISIT SD Reschedule/Cancel Encounters Encounter Location Date Provider Diagnosis [address] [address] 07/15/2023 Shashank Hunt Plan Of Treatment Next Appt Details Provider Name:Mary Jane bowens, 04/06/2024 01:30:00 PM, [address] [place] [address], [phone], Progress Notes * CHERELLE SukhjinderOB: 0 (73 yo M)Acc No.[id number]:07/15/2023 Patient:?Fitz Reed :1950???Age:73 Y???Sex:Male Address:[address] [place] [address], [phone] * true * Date:? Generated for Printi ng/Faxing/eTransmitting on:?03/27/2024 09:02 AM EST
--- OUTSIDE RECORDS SUMMARY | 2024-03-27 09:02 | XMS_ITS ---
Author Organization [facility] Address [address] [place] [address] Care Team Providers Care Medicine Assistant Name Role Phone Bhaskar TITUS, Anne-Marie Dennison Primary Care Provider Un available Mary Jane Mc Unavailable [phone] Shashank Hunt Unavailable [phone] REASON FOR VISIT Painful nail(s) aggrevated by shoes and causing difficulty standing/walking. Medications Medication SIG (Take, Route, Frequency, Duration) Notes Start Date End Date Status Voltaren 1 % as directed Externally Active Encounters Encounter Location Date Provider Diagnosis [facility] [address] [place] [address] 07/15/2023 Shashank Hunt Tinea unguium B35.1 ; [...] Name:Mary Jane Echolsmaxwell bowens, 04/06/2024 01:30:00 PM, [address] [place] [address], [phone], Procedure Notes * Category Sub-Category Detail Notes [...] as necessary. Patient chooses, no pharmaceutical tx (83421) Keratoma Treatment Parring or Cutting o f Benign Hyperkeratotic Lesion(s) 81500 ( >4 Lesions) - The Benign hyperkeratotic lesions, as described above were pared, and/or cut utilizing a sterile #15 blade, tissue nippers, and/or dremel Progress Notes * Sukhjinder REEDOB: 0 (74 yo M)Acc No.[id number]:07/15/2023 Progress Note Patient:?Prema REEDo Provider:?Shashank Hunt DPM :1950???Age:73 Y???Sex:Male Jose e:07/15/2023 Address:[address] [place], [place] [phone] Pcp:Eddie Isabel Subjective: * Chief Complaints: * [...] as necessary. Patient chooses, no pharmaceutical tx (60776).?Keratoma Treatment:?Parring or Cutting of Benign Hyperkeratotic Lesion(s)?00467 ( >4 Lesions) - The Benign hyperkeratotic lesions, as described above were pared, and/or cut utilizing a sterile #15 blade, tissue nippers, and/or dremel.? * Procedure Codes:?84270 DEBRI DE NAIL, 6 OR MORE, Modifiers: XS , 68648 TRIM SKIN LESIONS, OVER 4, Modifiers: XS * Follow Up:?4 Months * Images: * The named appointment provid er may or may not be the originator of this progress note, and it is not deemed complete until electronically signed by the appointment provider. Sign off status: Pending * Provider:?Shashank Hunt DPM Date:? 024 Generated for Rosanna clay/Barbara/eTransmitting on:?03/27/2024 09:02 AM EST History and Physical Notes * HPI [...] no acute distress ORIENTED: person,place, and ti pa Ophthalmology Referral DIABETES EYE EXAM Diabetic Reti [...]
--- OUTSIDE RECORDS SUMMARY | 2024-03-27 09:02 | XMS_ITS ---
Author Organization [facility] Address [address] [facility] [place] [address] Care Team Providers Care Supervisor Photostat Name Role Phone Bhaskar TITUS, Anne-Marie Dennison Primary Care Provider Un available Mc, Mary Jane Unavailable [phone] Shashank Hunt Unavailable [phone] Allergies No Known Allergies REASON FOR VISIT [...] 024 Encounters Encounter Location Date Provider Diagnosis [facility] [address] [place] [address] 12/05/2023 Shashank Hunt Tinea unguium B35.1 ; [...] Name:Mary Jane bowens, 04/06/2024 01:30:00 PM, [address] [place], [address], Procedure Notes * Category Sub-Category Detail Notes [...] as necessary. Patient chooses, no pharmaceutical tx (00275) Keratoma Treatment Parring or Cutting o f Benign Hyperkeratotic Lesion(s) 79181 ( >4 Lesions) - The Benign hyperkeratotic lesions, as described above were pared, and/or cut utilizing a sterile #15 blade, tissue nippers, and/or dremel Progress Notes * Sukhjinder REEDOB: 0 (73 yo M)Acc No.[id number]:12/05/2023 Progress Note Patient:?Fitz Reed Provider:?Shashank Hunt DPM :1950???Age:73 Y???Sex:Male Jose e:12/05/2023 Address:[address] [place], [place] [address] Pcp:Eddie Isabel Subjective: * Chief Complaints: * [...] as necessary. Patient chooses, no pharmaceutical tx (36238).?Keratoma Treatment:?Parring or Cutting of Benign Hyperkeratotic Lesion(s)?06736 ( >4 Lesions) - The Benign hyperkeratotic lesions, as described above were pared, and/or cut utilizing a sterile #15 blade, tissue nippers, and/or dremel.? * Immunizations:? Influenza (Not administered - Refused: Patient decision) * Procedure Codes:?08617 DEBRI DE NAIL, 6 OR MORE, Modifiers: XS 08945 TRIM SKIN LESIONS, OVER 4, Modifiers: XS [...] no acute distress ORIENTED: person,place, and ti vt Ophthalmology Referral DIABETES EYE EXAM Diabetic Reti [...]
--- OUTSIDE RECORDS SUMMARY | 2024-03-27 09:02 | XMS_ITS | Clinical Summary ---
Author Organization Unknown Care Team Providers Care Tool Crib Lead Name Role Phone MAINOR TITUS, JOSE F ESPINOSA Unavailable Unavaila ble JUAN DAVID ADDICTIONS THERAPIST, HARI Unavailable Unavail able TOMMY RN, ZAHEER Unavailable Unavailable EVAN COHEN ADDICTIONS THERAPIST, VIOLETTA Unavailable Unavail able JUDITH EMMANUEL LPN, CALE Unavailable Unavai arthur Payers Payer Name Policy Type Policy Number Effective Date Expira tion Date MEDICARE - [facility] [id number] [facility] [id number] Problems Condition Name Condition Details Condition Category [...] 04-08 00:00: 00 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 04-08 [...] OF NICOTINE DEPENDENCE Active 04-08 00:00: 00 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 Active 04-08 00:00: 00 PLASTIC INSTALLER (CURRENT) USE OF ORAL HYPOGLYCEMIC DRUGS Active [...] 08-06 00:00: 00 08-08 23:59 :00 No [id number] Per instruc tions DAILY Per instructio ns DAILY (route: oral) Med Classific ation: Endocrine furosemide 20 mg tablet -19 00:00: 00 08-06 23:59 :00 No [id number] Per instruc tions EVERY DAY Per instructio ns EVERY DAY (route: oral) Med Classific ation: Cardiovas cular Therapy Agents albuterol sulfate HFA 90 mcg/actuati on aerosol inhaler 07-24 00:00: 00 02-19 23:59 :00 No [id number] 2 puff NEEDED 2 puff NEEDED (route: inhalation ) Med Classific ation: Respirato ry Therapy Agents lorazepam 0.5 mg tablet 07-24 00:00: 00 08-21 23:59 :00 No [id number] Per instruc tions DAILY NEEDED Per instructio ns DAILY NEEDED (route: oral) Med Classific ation: Central Nervous System Agents hydrochloro thiazide 25 mg tablet 07-18 00:00: 00 02-19 23:59 :00 No [id number] Per instruc tions EVERY Per instructio ns EVERY (route: oral) Med Classific ation: Cardiovas cular Therapy Agents glipizide 5 mg tablet 07-17 00:00: 00 09-26 23:59 :00 No [id number] Per instruc tions 2 TIMES DAILY Per instructio ns 2 TIMES DAILY (route: oral) Med Classific ation: Endocrine omeprazole 20 mg capsule,del ayed release 07-17 00:00: 00 02-19 23:59 :00 No [id number] Per instruc tions EVERY DAY Per instructio ns EVERY DAY (route: oral) Med Classific ation: Gastroint estinal Therapy Agents metoprolol tartrate 25 mg tablet 07-10 00:00: 00 02-19 23:59 :00 No [id number] Per instruc tions TWICE A DAY Per instructio ns TWICE A DAY (route: oral) Med Classific ation: Cardiovas cular Therapy Agents aspirin 81 mg tablet,courtney yed release 08-09 00:00: 00 02-19 23:59 :00 No [id number] 1 tablet DAILY 1 tablet DAILY (route: oral) Med Classific ation: Hematolog ical Agents atorvastati n 80 mg tablet 08-09 00:00: 00 02-19 23:59 :00 No [id number] 1 tablet BEDTIME 1 tablet BEDTIME (route: oral) Med Classific ation: Cardiovas cular Therapy Agents budesonide- formoterol HFA 160 mcg-4.5 mcg/actuati on aerosol inhaler 08-09 00:00: 00 02-19 23:59 :00 No [id number] 1 puff DAILY 1 puff DAILY (route: inhalation ) Med Classific ation: Respirato ry Therapy Agents isosorbide mononitrate ER 30 mg tablet,exte nded release 24 hr 08-09 00:00: 00 02-19 23:59 :00 No [id number] 1 tablet DAILY 1 tablet DAILY (route: oral) Med Classific ation: Cardiovas cular Therapy Agents Lexapro 20 mg tablet 08-09 00:00: 00 02-19 23:59 :00 No [id number] 1 tablet DAILY 1 tablet DAILY (route: oral) Med Classific ation: Central Nervous System Agents metformin 1,000 mg tablet 08-09 00:00: 00 02-19 23:59 :00 No [id number] 1 tablet 2 TIMES DAILY 1 tablet 2 TIMES DAILY (route: oral) Med Classific ation: Endocrine Miralax 17 gram/dose oral powder 08-09 00:00: 00 02-19 23:59 :00 No [id number] Per instruc tions NEEDED Per instructio ns NEEDED (route: oral) Med Classific ation: Gastroint estinal Therapy Agents multivitami n tablet 08-09 00:00: 00 02-19 23:59 :00 No [id number] 1 tablet DAILY 1 tablet DAILY (route: oral) Med Classific ation: Electroly te Balance-N utritiona l Products O2 - OXYGEN 08-09 00:00: 00 02-19 23:59 :00 No [id number] 2.5 Liter O2 - CONTINUOUS 2.5 Liter O2 - CONTINUOUS (route: Oxygen) Alternate Route: O2 - NASAL CANNULA. Med Classific ation: Medical Oxygen lorazepam 1 mg tablet 08-21 00:00: 00 02-19 23:59 :00 No [id number] 1 tablet 2 TIMES DAILY 1 tablet 2 TIMES DAILY (route: oral) Med Classific ation: Central Nervous System Agents lactulose 10 gram/15 mL oral solution 08-21 00:00: 00 02-19 23:59 :00 No [id number] 15 mL DAILY 15 mL DAILY (route: oral) Med Classific ation: Gastroint estinal Therapy Agents escitalopra m 20 mg tablet 2022-04 00:00: 00 Yes [id number] 1 tablet DAILY 1 tablet DAILY (route: oral) Med Classific ation: Central Nervous System Agents azithromyci n 500 mg tablet 2022-04 00:00: 00 07-18 23:59 :00 No [id number] Per instruc tions EVERY Per instructio ns EVERY (route: oral) Med Classific ation: Anti-Infe ctive Agents omeprazole 20 mg capsule,del ayed release 2022-04 00:00: 00 11-07 23:59 :00 No [id number] Per instruc tions EVERY DAY Per instructio ns EVERY DAY (route: oral) Med Classific ation: Gastroint estinal Therapy Agents atorvastati n 80 mg tablet 2022-04 00:00: 00 Yes [id number] Per instruc tions EVERYDAY AT BEDTIME Per instructio ns EVERYDAY AT BEDTIME (route: oral) Med Classific ation: Cardiovas cular Therapy Agents ezetimibe 10 mg tablet 2022-04 00:00: 00 02-24 23:59 :00 No [id number] Per instruc tions EVERY DAY Per instructio ns EVERY DAY (route: oral) Med Classific ation: Cardiovas cular Therapy Agents acetazolami de 250 mg tablet 2022-04 00:00: 00 10-14 00:00 :00 No [id number] 1 tablet DAILY 1 tablet DAILY (route: oral) Med Classific ation: Cardiovas cular Therapy Agents Calcium 600 with Vitamin D3 600 mg-10 mcg (400 unit) chewable tablet 2022-04 00:00: 00 Yes [id number] 1 tablet DAILY 1 tablet DAILY (route: oral) Med Classific ation: Electroly te Balance-N utritiona l Products cefuroxime axetil 500 mg tablet 2022-04 00:00: 00 07-18 23:59 :00 No [id number] 1 tablet EVERY 12 HOURS 1 tablet EVERY 12 HOURS (route: oral) Med Classific ation: Anti-Infe ctive Agents glipizide 5 mg tablet 2022-04 00:00: 00 10-14 00:00 :00 No [id number] 1 tablet 2 TIMES DAILY 1 tablet 2 TIMES DAILY (route: oral) Med Classific ation: Endocrine isosorbide mononitrate ER 30 mg tablet,exte nded release 24 hr 2022-04 00:00: 00 10-14 23:59 :00 No [id number] 1 tablet DAILY 1 tablet DAILY (route: oral) Med Classific ation: Cardiovas cular Therapy Agents lorazepam 1 mg tablet 2022-04 00:00: 00 11-07 23:59 :00 No [id number] .[id number] tablet 2 TIMES DAILY .5 tablet 2 TIMES DAILY (route: oral) Med Classific ation: Central Nervous System Agents metformin 1,000 mg tablet 2022-04 00:00: 00 Yes [id number] 1 tablet 2 TIMES DAILY 1 tablet 2 TIMES DAILY (route: oral) Med Classific ation: Endocrine metoprolol tartrate 25 mg tablet 2022-04 00:00: 00 Yes [id number] 1 tablet 2 TIMES DAILY 1 tablet 2 TIMES DAILY (route: oral) Med Classific ation: Cardiovas cular Therapy Agents Miralax 17 gram/dose oral powder 2022-04 00:00: 00 Yes [id number] 17 gram DAILY 17 gram DAILY (route: oral) Med Classific ation: Gastroint estinal Therapy Agents prednisone 10 mg tablet 2022-04 00:00: 00 03-08 23:59 :00 No [id number] Per instruc tions DAILY Per instructio ns DAILY (route: oral) Med Classific ation: Endocrine ProAir RespiClick 90 mcg/actuati on breath activated 2022-04 00:00: 00 11-07 23:59 :00 No [id number] 2 puff EVERY 4 HOURS 2 puff EVERY 4 HOURS (route: inhalation ) Med Classific ation: Respirato ry Therapy Agents Symbicort 160 mcg-4.5 mcg/actuati on HFA aerosol inhaler 2022-04 00:00: 00 10-06 23:59 :00 No [id number] 1 puff 2 TIMES DAILY 1 puff 2 TIMES DAILY (route: inhalation ) Med Classific ation: Respirato ry Therapy Agents prednisone 10 mg tablet 2- 00:00: 00 06-05 23:59 :00 No [id number] Per instruc tions DAILY Per instructio ns DAILY (route: oral) Med Classific ation: Endocrine cefpodoxime 100 mg tablet 2- 00:00: 00 06-05 23:59 :00 No [id number] 1 tablet EVERY 12 HOURS 1 tablet EVERY 12 HOURS (route: oral) Med Classific ation: Anti-Infe ctive Agents O2 - OXYGEN 2022-04 00:00: 00 Yes [id number] 2-3 Liter O2 - CONTINUOUS 2-3 Liter O2 - CONTINUOUS (route: Oxygen) Alternate Route: O2 - NASAL CANNULA. Med Classific ation: Medical Oxygen prednisone 10 mg tablet 09 00:00: 00 07-27 23:59 :00 No [id number] Per instruc tions DAILY Per instructio ns DAILY (route: oral) Med Classific ation: Endocrine Incruse Ellipta 62.5 mcg/actuati on powder for inhalation 10-14 00:00: 00 11-07 23:59 :00 No [id number] 1 inhalat ion DAILY 1 inhalation DAILY (route: inhalation ) Med Classific ation: Respirato ry Therapy Agents prednisone 50 mg tablet 10-12 00:00: 00 10-17 23:59 :00 No [id number] 1 tablet DAILY 1 tablet DAILY (route: oral) Med Classific ation: Endocrine budesonide 0.5 mg/2 mL suspension for nebulizatio n 11-07 00:00: 00 11-17 23:59 :00 No [id number] 2 mL 2 TIMES DAILY 2 mL 2 TIMES DAILY (route: inhalation ) Med Classific ation: Respirato ry Therapy Agents guaifenesin ER 600 mg tablet, extended release 12 hr 11-07 00:00: 00 11-17 23:59 :00 No [id number] 1 tablet 2 TIMES DAILY 1 tablet 2 TIMES DAILY (route: oral) Med Classific ation: Respirato ry Therapy Agents pantoprazol e 40 mg tablet,courtney yed release 11-07 00:00: 00 12-07 23:59 :00 No [id number] 1 tablet 2 TIMES DAILY 1 tablet 2 TIMES DAILY (route: oral) Med Classific ation: Gastroint estinal Therapy Agents prednisone 10 mg tablet 11-07 00:00: 00 11-19 23:59 :00 No [id number] Per instruc tions DAILY Per instructio ns DAILY (route: oral) Med Classific ation: Endocrine azithromyci n 500 mg tablet 11-07 00:00: 00 11-14 23:59 :00 No [id number] 1 tablet DAILY 1 tablet DAILY (route: oral) Med Classific ation: Anti-Infe ctive Agents azithromyci n 500 mg tablet 11-15 00:00: 00 01-02 23:59 :00 No [id number] Per instruc tions 3 TIMES A WEEK Per instructio ns 3 TIMES A WEEK (route: oral) Med Classific ation: Anti-Infe ctive Agents ipratropium 0.5 mg-albutero l 3 mg (2.5 mg base)/3 mL nebulizatio n soln 11-07 00:00: 00 11-17 23:59 :00 No [id number] 3 mL 4 TIMES DAILY 3 mL 4 TIMES DAILY (route: inhalation ) Med Classific ation: Respirato ry Therapy Agents albuterol sulfate HFA 90 mcg/actuati on aerosol inhaler 11-07 00:00: 00 Yes [id number] 2 puff EVERY 6 HOURS 2 puff EVERY 6 HOURS (route: inhalation ) Med Classific ation: Respirato ry Therapy Agents aspirin 81 mg chewable tablet 11-07 00:00: 00 Yes [id number] 1 tablet DAILY 1 tablet DAILY (route: oral) Med Classific ation: Hematolog ical Agents glipizide 5 mg tablet 11-07 00:00: 00 Yes [id number] 1 tablet 2 TIMES DAILY 1 tablet 2 TIMES DAILY (route: oral) Med Classific ation: Endocrine lorazepam 0.5 mg tablet 11-07 00:00: 00 Yes [id number] 1 tablet EVERY 12 HOURS 1 tablet [...] CARE WILL BE ESTABLISHED THAT MEETS PATIENT'S [facility] NEEDS AND INCLUDES PATIENT GOAL FOR HOME [...] End Date/Time Encounter Type Admission Type Attending [facility] Care Department Encounter ID Discharge Date Discharge Status Discharge Condition Discharge Reason Percent Goals Met 2023-10-15 00:00:00 2024-02-07 00:00:00 Outpatient RECERTIFIC ATION ZAHEER SANDERS [facility] [id number] 2024-02-07 00:00:00 DISCHARGE TO HOME OR SELF CARE INDEPENDEN T IN THE HOME GOALS MET ( ONLY) 74.36
--- OUTSIDE RECORDS SUMMARY | 2024-03-27 09:02 | XMS_ITS | Patient Health Record ---
Author Organization [facility] Address [address] [place] [address] Care Team Providers Care Culinary Assistant Name Role Phone Bhaskar TITUS, Anne-Marie Dennison Primary Care Provider Un available McNohemy julianine Unavailable [phone] Shashank Hunt Unavailable [phone] Allergies No Known Allergies Reason For Referral [...] Status Risk Notes Problem Acquired hallux valgus (01856070) Hallux valgus (acquired), right foot (M20.11) Active confirmed Problem Acquired hammer toe of right foot (1242168138120518 ) Other hammer toe(s) (acquired), right foot (M20.41) Active confirmed Problem Polyneuropathy due to type 2 diabetes mellitus (846710186) Type 2 diabetes mellitus with diabetic polyneuropathy (E11.42) Active confirmed Vital Signs Blood pressure diastolic 67 mm Hg 12/05/2023 Height 5ft6in in 12/05/2023 Blood pressure systolic 127 mm Hg 12/05/2023 Weight 200 lbs 12/05/2023 BMI 32.28 kg/m2 12/05/2023 Encounters Encounter Location Date Provider Diagnosis [address] [address] 12/05/2023 Shashank Hunt Tinea unguium B35.1 ; Type 2 diabetes mellitus with diabetic polyneuropathy E11.42 ; Pain in right toe(s) M79.674 ; Pain in left toe(s) M79.675 ; Other hammer toe(s) (acquired), right foot M20.41 ; Hallux valgus (acquired), right foot M20.11 ; Xerosis cutis L85.3 and Ingrowing nail L60.[facility] [address] 07/15/2023 Shashank Hunt Assessments Encounter Date Diagnosis [...] Treatment Pending Test Test Name Order Date 04856-BJDAVAH NAIL, 6 OR MORE 02/03/2018 17207-MZRKBYG NAIL, 6 OR MORE 11/04/2017 98602-SXUR SKIN LESIONS, OVER 4 02/04/20 18 20682-JUGC SKIN LESIONS, OVER 4 11/05/19 18 65765-PTWW SKIN LESIONS, OVER 4 05/05/19 19 19815-WOKC SKIN LESIONS, OVER 4 08/05/19 19 56819-RGTZ SKIN LESIONS, OVER 4 11/06/19 19 00315-ONFE SKIN LESIONS, OVER 4 02/10/20 19 10672-INXM SKIN LESIONS, OVER 4 06/10/19 20 59253-VFVH SKIN LESIONS, OVER 4 12/09/19 20 83999-CVZR SKIN LESIONS, OVER 4 03/23/20 20 82909-MVLS SKIN LESIONS, OVER 4 07/12/19 21 98005-LFCC SKIN LESIONS, OVER 4 11/04/19 21 18985-JZIU SKIN LESIONS, OVER 4 02/14/20 21 10076-PSAC SKIN LESIONS, OVER 4 06/05/19 22 Next Appt Details Provider Name:Mary Jane Nur kwan, 04/06/2024 01:30:00 PM, [address] [facility], [place], [address], Insurance Providers Payer Name Payer Address Payer Phone Subscriber Number Group Number Insured Name Patient Relationship to Insured Coverage Start Date Coverage End Date Medicare [employer] [facility] [employer] [address] [place] [address] [id number] Fitz Reed Self - patient is the insured [employer] [address] [place] [id number] Brianna Fitz Self - patient is the [...]
--- OUTSIDE RECORDS SUMMARY | 2024-03-27 09:03 | XMS_ITS | Clinical Summary ---
Author Organization Unknown Care Team Providers Care [employer] Associate Name Role Phone MAINOR TITUS, JOSE F ESPINOSA Unavailable Unavaila ble JUAN DAVID MACHINE II TRIMMER, HARI Unavailable Unavail able TOMMY RN, ZAHEER Unavailable Unavailable EVAN COHEN MACHINE II TRIMMER, VIOLETTA Unavailable Unavail able JUDITH EMMANUEL LPN, CALE Unavailable Unavai arthur Payers Payer Name Policy Type Policy Number Effective Date Expira tion Date MEDICARE - [facility] [id number] [facility] [id number] Problems Condition Name Condition Details Condition Category [...] 04-08 00:00: 00 ATHSCL HEART DISEASE OF [place] CORONARY ARTERY W/O ANG PCTRS Active 04-08 [...] OF NICOTINE DEPENDENCE Active 04-08 00:00: 00 TIMBER FRAMER (CURRENT) USE OF ASPIRIN Active 04-08 00:00: 00 TIMBER FRAMER (CURRENT) USE OF ORAL HYPOGLYCEMIC DRUGS Active [...] 08-06 00:00: 00 08-08 23:59 :00 No [id number] Per instruc tions DAILY Per instructio ns DAILY (route: oral) Med Classific ation: Endocrine furosemide 20 mg tablet -19 00:00: 00 08-06 23:59 :00 No [id number] Per instruc tions EVERY DAY Per instructio ns EVERY DAY (route: oral) Med Classific ation: Cardiovas cular Therapy Agents albuterol sulfate HFA 90 mcg/actuati on aerosol inhaler 07-24 00:00: 00 02-19 23:59 :00 No [id number] 2 puff NEEDED 2 puff NEEDED (route: inhalation ) Med Classific ation: Respirato ry Therapy Agents lorazepam 0.5 mg tablet 07-24 00:00: 00 08-21 23:59 :00 No [id number] Per instruc tions DAILY NEEDED Per instructio ns DAILY NEEDED (route: oral) Med Classific ation: Central Nervous System Agents hydrochloro thiazide 25 mg tablet 07-18 00:00: 00 02-19 23:59 :00 No [id number] Per instruc tions EVERY Per instructio ns EVERY (route: oral) Med Classific ation: Cardiovas cular Therapy Agents glipizide 5 mg tablet 07-17 00:00: 00 09-26 23:59 :00 No [id number] Per instruc tions 2 TIMES DAILY Per instructio ns 2 TIMES DAILY (route: oral) Med Classific ation: Endocrine omeprazole 20 mg capsule,del ayed release 07-17 00:00: 00 02-19 23:59 :00 No [id number] Per instruc tions EVERY DAY Per instructio ns EVERY DAY (route: oral) Med Classific ation: Gastroint estinal Therapy Agents metoprolol tartrate 25 mg tablet 07-10 00:00: 00 02-19 23:59 :00 No [id number] Per instruc tions TWICE A DAY Per instructio ns TWICE A DAY (route: oral) Med Classific ation: Cardiovas cular Therapy Agents aspirin 81 mg tablet,courtney yed release 08-09 00:00: 00 02-19 23:59 :00 No [id number] 1 tablet DAILY 1 tablet DAILY (route: oral) Med Classific ation: Hematolog ical Agents atorvastati n 80 mg tablet 08-09 00:00: 00 02-19 23:59 :00 No [id number] 1 tablet BEDTIME 1 tablet BEDTIME (route: oral) Med Classific ation: Cardiovas cular Therapy Agents budesonide- formoterol HFA 160 mcg-4.5 mcg/actuati on aerosol inhaler 08-09 00:00: 00 02-19 23:59 :00 No [id number] 1 puff DAILY 1 puff DAILY (route: inhalation ) Med Classific ation: Respirato ry Therapy Agents isosorbide mononitrate ER 30 mg tablet,exte nded release 24 hr 08-09 00:00: 00 02-19 23:59 :00 No [id number] 1 tablet DAILY 1 tablet DAILY (route: oral) Med Classific ation: Cardiovas cular Therapy Agents Lexapro 20 mg tablet 08-09 00:00: 00 02-19 23:59 :00 No [id number] 1 tablet DAILY 1 tablet DAILY (route: oral) Med Classific ation: Central Nervous System Agents metformin 1,000 mg tablet 08-09 00:00: 00 02-19 23:59 :00 No [id number] 1 tablet 2 TIMES DAILY 1 tablet 2 TIMES DAILY (route: oral) Med Classific ation: Endocrine Miralax 17 gram/dose oral powder 08-09 00:00: 00 02-19 23:59 :00 No [id number] Per instruc tions NEEDED Per instructio ns NEEDED (route: oral) Med Classific ation: Gastroint estinal Therapy Agents multivitami n tablet 08-09 00:00: 00 02-19 23:59 :00 No [id number] 1 tablet DAILY 1 tablet DAILY (route: oral) Med Classific ation: Electroly te Balance-N utritiona l Products O2 - OXYGEN 08-09 00:00: 00 02-19 23:59 :00 No [id number] 2.5 Liter O2 - CONTINUOUS 2.5 Liter O2 - CONTINUOUS (route: Oxygen) Alternate Route: O2 - NASAL CANNULA. Med Classific ation: Medical Oxygen lorazepam 1 mg tablet 08-21 00:00: 00 02-19 23:59 :00 No [id number] 1 tablet 2 TIMES DAILY 1 tablet 2 TIMES DAILY (route: oral) Med Classific ation: Central Nervous System Agents lactulose 10 gram/15 mL oral solution 08-21 00:00: 00 02-19 23:59 :00 No [id number] 15 mL DAILY 15 mL DAILY (route: oral) Med Classific ation: Gastroint estinal Therapy Agents escitalopra m 20 mg tablet 2022-04 00:00: 00 Yes [id number] 1 tablet DAILY 1 tablet DAILY (route: oral) Med Classific ation: Central Nervous System Agents azithromyci n 500 mg tablet 2022-04 00:00: 00 07-18 23:59 :00 No [id number] Per instruc tions EVERY Per instructio ns EVERY (route: oral) Med Classific ation: Anti-Infe ctive Agents omeprazole 20 mg capsule,del ayed release 2022-04 00:00: 00 11-07 23:59 :00 No [id number] Per instruc tions EVERY DAY Per instructio ns EVERY DAY (route: oral) Med Classific ation: Gastroint estinal Therapy Agents atorvastati n 80 mg tablet 2022-04 00:00: 00 Yes [id number] Per instruc tions EVERYDAY AT BEDTIME Per instructio ns EVERYDAY AT BEDTIME (route: oral) Med Classific ation: Cardiovas cular Therapy Agents ezetimibe 10 mg tablet 2022-04 00:00: 00 02-24 23:59 :00 No [id number] Per instruc tions EVERY DAY Per instructio ns EVERY DAY (route: oral) Med Classific ation: Cardiovas cular Therapy Agents acetazolami de 250 mg tablet 2022-04 00:00: 00 10-14 00:00 :00 No [id number] 1 tablet DAILY 1 tablet DAILY (route: oral) Med Classific ation: Cardiovas cular Therapy Agents Calcium 600 with Vitamin D3 600 mg-10 mcg (400 unit) chewable tablet 2022-04 00:00: 00 Yes [id number] 1 tablet DAILY 1 tablet DAILY (route: oral) Med Classific ation: Electroly te Balance-N utritiona l Products cefuroxime axetil 500 mg tablet 2022-04 00:00: 00 07-18 23:59 :00 No [id number] 1 tablet EVERY 12 HOURS 1 tablet EVERY 12 HOURS (route: oral) Med Classific ation: Anti-Infe ctive Agents glipizide 5 mg tablet 2022-04 00:00: 00 10-14 00:00 :00 No [id number] 1 tablet 2 TIMES DAILY 1 tablet 2 TIMES DAILY (route: oral) Med Classific ation: Endocrine isosorbide mononitrate ER 30 mg tablet,exte nded release 24 hr 2022-04 00:00: 00 10-14 23:59 :00 No [id number] 1 tablet DAILY 1 tablet DAILY (route: oral) Med Classific ation: Cardiovas cular Therapy Agents lorazepam 1 mg tablet 2022-04 00:00: 00 11-07 23:59 :00 No [id number] .[id number] tablet 2 TIMES DAILY .5 tablet 2 TIMES DAILY (route: oral) Med Classific ation: Central Nervous System Agents metformin 1,000 mg tablet 2022-04 00:00: 00 Yes [id number] 1 tablet 2 TIMES DAILY 1 tablet 2 TIMES DAILY (route: oral) Med Classific ation: Endocrine metoprolol tartrate 25 mg tablet 2022-04 00:00: 00 Yes [id number] 1 tablet 2 TIMES DAILY 1 tablet 2 TIMES DAILY (route: oral) Med Classific ation: Cardiovas cular Therapy Agents Miralax 17 gram/dose oral powder 2022-04 00:00: 00 Yes [id number] 17 gram DAILY 17 gram DAILY (route: oral) Med Classific ation: Gastroint estinal Therapy Agents prednisone 10 mg tablet 2022-04 00:00: 00 03-08 23:59 :00 No [id number] Per instruc tions DAILY Per instructio ns DAILY (route: oral) Med Classific ation: Endocrine ProAir RespiClick 90 mcg/actuati on breath activated 2022-04 00:00: 00 11-07 23:59 :00 No [id number] 2 puff EVERY 4 HOURS 2 puff EVERY 4 HOURS (route: inhalation ) Med Classific ation: Respirato ry Therapy Agents Symbicort 160 mcg-4.5 mcg/actuati on HFA aerosol inhaler 2022-04 00:00: 00 10-06 23:59 :00 No [id number] 1 puff 2 TIMES DAILY 1 puff 2 TIMES DAILY (route: inhalation ) Med Classific ation: Respirato ry Therapy Agents prednisone 10 mg tablet 2- 00:00: 00 06-05 23:59 :00 No [id number] Per instruc tions DAILY Per instructio ns DAILY (route: oral) Med Classific ation: Endocrine cefpodoxime 100 mg tablet 2- 00:00: 00 06-05 23:59 :00 No [id number] 1 tablet EVERY 12 HOURS 1 tablet EVERY 12 HOURS (route: oral) Med Classific ation: Anti-Infe ctive Agents O2 - OXYGEN 2022-04 00:00: 00 Yes [id number] 2-3 Liter O2 - CONTINUOUS 2-3 Liter O2 - CONTINUOUS (route: Oxygen) Alternate Route: O2 - NASAL CANNULA. Med Classific ation: Medical Oxygen prednisone 10 mg tablet 09 00:00: 00 07-27 23:59 :00 No [id number] Per instruc tions DAILY Per instructio ns DAILY (route: oral) Med Classific ation: Endocrine Incruse Ellipta 62.5 mcg/actuati on powder for inhalation 10-14 00:00: 00 11-07 23:59 :00 No [id number] 1 inhalat ion DAILY 1 inhalation DAILY (route: inhalation ) Med Classific ation: Respirato ry Therapy Agents prednisone 50 mg tablet 10-12 00:00: 00 10-17 23:59 :00 No [id number] 1 tablet DAILY 1 tablet DAILY (route: oral) Med Classific ation: Endocrine budesonide 0.5 mg/2 mL suspension for nebulizatio n 11-07 00:00: 00 11-17 23:59 :00 No [id number] 2 mL 2 TIMES DAILY 2 mL 2 TIMES DAILY (route: inhalation ) Med Classific ation: Respirato ry Therapy Agents guaifenesin ER 600 mg tablet, extended release 12 hr 11-07 00:00: 00 11-17 23:59 :00 No [id number] 1 tablet 2 TIMES DAILY 1 tablet 2 TIMES DAILY (route: oral) Med Classific ation: Respirato ry Therapy Agents pantoprazol e 40 mg tablet,courtney yed release 11-07 00:00: 00 12-07 23:59 :00 No [id number] 1 tablet 2 TIMES DAILY 1 tablet 2 TIMES DAILY (route: oral) Med Classific ation: Gastroint estinal Therapy Agents prednisone 10 mg tablet 11-07 00:00: 00 11-19 23:59 :00 No [id number] Per instruc tions DAILY Per instructio ns DAILY (route: oral) Med Classific ation: Endocrine azithromyci n 500 mg tablet 11-07 00:00: 00 11-14 23:59 :00 No [id number] 1 tablet DAILY 1 tablet DAILY (route: oral) Med Classific ation: Anti-Infe ctive Agents azithromyci n 500 mg tablet 11-15 00:00: 00 01-02 23:59 :00 No [id number] Per instruc tions 3 TIMES A WEEK Per instructio ns 3 TIMES A WEEK (route: oral) Med Classific ation: Anti-Infe ctive Agents ipratropium 0.5 mg-albutero l 3 mg (2.5 mg base)/3 mL nebulizatio n soln 11-07 00:00: 00 11-17 23:59 :00 No [id number] 3 mL 4 TIMES DAILY 3 mL 4 TIMES DAILY (route: inhalation ) Med Classific ation: Respirato ry Therapy Agents albuterol sulfate HFA 90 mcg/actuati on aerosol inhaler 11-07 00:00: 00 Yes [id number] 2 puff EVERY 6 HOURS 2 puff EVERY 6 HOURS (route: inhalation ) Med Classific ation: Respirato ry Therapy Agents aspirin 81 mg chewable tablet 11-07 00:00: 00 Yes [id number] 1 tablet DAILY 1 tablet DAILY (route: oral) Med Classific ation: Hematolog ical Agents glipizide 5 mg tablet 11-07 00:00: 00 Yes [id number] 1 tablet 2 TIMES DAILY 1 tablet 2 TIMES DAILY (route: oral) Med Classific ation: Endocrine lorazepam 0.5 mg tablet 11-07 00:00: 00 Yes [id number] 1 tablet EVERY 12 HOURS 1 tablet [...] CARE WILL BE ESTABLISHED THAT MEETS PATIENT'S DETENTION NEEDS AND INCLUDES PATIENT GOAL FOR HOME [...] End Date/Time Encounter Type Admission Type Attending [facility] Care Department Encounter ID Discharge Date Discharge Status Discharge Condition Discharge Reason Percent Goals Met 2023-10-15 00:00:00 2024-02-07 00:00:00 Outpatient RECERTIFIC ATION ZAHEER SANDERS [facility] [id number] 2024-02-07 00:00:00 DISCHARGE TO HOME OR SELF CARE INDEPENDEN T IN THE HOME GOALS MET ( ONLY) 74.36
[2024-03-27] MEDS: iohexoL 350 MG/ML 100 ML INFUS..BTL 65 ML IV (10:13)
== END 2024-03-27 08:51 | disposition home or self-care (01) ==
LOC: HO.CT 08:50
PROVIDERS: PCP Internal Medicine; Visit Provider Internal Medicine Medical Oncology
DX: C34.90 Malignant neoplasm of unspecified part of unspecified bronchus or lung (principal)
CPT/HCPCS: 71260; Q9967

== ENCOUNTER 2024-04-16 18:32 | Emergency (ER) | payer MEDICARE, SELFPAY ==
--- NOTE | ~2024-04-16 | XR_ITS ---
CLINICAL HISTORY: bloating 1 view abdomen Comparison: None available Findings: Mild bibasilar atelectasis in the [id number]. No small bowel dilatation of the imaged abdomen, with under penetration artifacts related to patient body habitus. Moderate to severe stool burden, including imaged cecum. Severe osteoarthritis of the hips with question sclerosis of the avascular necrosis. Vascular calcifications are multifocal. Majority of the pelvis and spine are obscured. Likely enthesopathy in the [id number] IMPRESSION: 1. No small bowel obstruction by one view study. 2. Moderate to severe stool burden. This document has been electronically signed by: Usman Haines MD on 04/17/2024 00:31:50
[2024-04-16 18:55] VITALS: BP 98/59; PULSE 73; RESP 20; TEMP 36.7; O2SAT 84; BMI 33.6
--- NOTE | 2024-04-16 18:56 | ED.GENADULT ---
HPI - General Adult General Chief complaint: General Medical Stated complaint: constipated x10 days Time Seen by Provider: 04/16/24 22:54 Source: patient, RN notes reviewed and old records reviewed Mode of arrival: ambulatory Limitations: no limitations History of Present Illness ED Provider: Efrain HPI narrative: 74-year-old male past medical history significant for COPD on 4 L nasal cannula, liver cirrhosis, coronary artery disease, anxiety depression, diabetes presents for evaluation of ?constipation. ? Patient denies any abdominal pain. He reports that he has had decreased bowel movements for the last 10-12 days. He states that he is still having bowel movements but ?it does not feel like it is enough given how much I eat. ? He denies abdominal pain or rectal pain. He has not been nauseous or vomiting He has tried Fleet enemas with some improvement. He has also been using MiraLax Denies any history abdominal surgeries Related Data Home Medications ?Medication ?Instructions ?Recorded ?Confirmed budesonide-formoterol HFA 160 2 puff inhalation DAILY 03/14/21 03/23/24 mcg-4.5 mcg/actuation aerosol inhaler (Symbicort) calcium 600 mg (as 1 tab PO DAILY 08/04/21 03/23/24 carbonate)-vitamin D3 10 mcg (400 unit) tablet Oxygen Home Use 06/14/22 03/23/24 Previous Rx's ?Medication ?Instructions ?Recorded blood-glucose meter (VoipSwitchyle #1 ea 01/23/22 Lite Meter kit) glipizide 5 mg tablet 5 mg PO BID #270 tabs 09/10/23 escitalopram oxalate 20 mg tablet 20 mg PO DAILY #90 tabs 09/16/23 metformin 1,000 mg tablet 1,000 mg PO BID #180 tabs 09/16/23 albuterol sulfate 90 mcg/actuation 2 puff PO Q4H PRN Shortness Of 10/26/23 aerosol inhaler Breath Or Wheezing #8.5 grams albuterol sulfate 90 mcg/actuation 2 puff inhalation Q4-6H PRN 10/31/23 aerosol inhaler (Ventolin HFA) shortness of breath or wheezing #8.5 grams atorvastatin 80 mg tablet 80 mg PO BEDTIME #90 tabs 12/04/23 ipratropium 0.5 mg-albuterol 3 mg 3 ml inhalation Q6H PRN wheezing 01/01/24 (2.5 mg base)/3 mL nebulization #180 mL soln Trulicity 0.75 mg/0.5 mL 0.75 mg (0.5 mL) subcut QWEEK 30 01/07/24 subcutaneous pen injector days #2 mL (dulaglutide) metoprolol tartrate 25 mg tablet 25 mg PO BID #180 tabs 01/07/24 lancets 28 gauge (FreeStyle #100 ea 01/31/24 Lancets) omeprazole 20 mg capsule,delayed 20 mg PO DAILY@0630 #30 caps 02/06/24 release bisacodyl 5 mg tablet,delayed 10 mg (2 x 5 mg) PO ONCE prep for 02/27/24 release (Dulcolax (bisacodyl)) CT colonography 5 days #10 tabs polyethylene glycol 3350 17 17 g PO DAILY Prep for CT 02/27/24 gram/dose oral powder (Miralax) colonography 1 day #238 grams blood sugar diagnostic (FreeStyle #50 ea 03/07/24 Lite Strips) lorazepam 1 mg tablet (Ativan) 0.5 mg (1/2 x 1 mg) PO BID PRN 04/15/24 anxiety #30 tabs peg 3350-electrolytes 236 240 ml PO Q10M PRN constipation 04/17/24 gram-22.74 gram-6.74 gram-5.86 #4,000 mL gram solution (GaviLyte-G) Allergies Allergy/AdvReac Type Severity Reaction Status Date / Time fluticasone furoate Allergy Intermediate Rash Verified 04/16/24 18:58 [From Trelegy Ellipta] vilanterol Allergy Intermediate Rash Verified 04/16/24 18:58 [From Trelegy Ellipta] umeclidinium Allergy Unknown Hives Verified 04/16/24 18:58 [Incruse Ellipta] furosemide [From Lasix] AdvReac Intermediate Hallucinati Verified 04/16/24 18:58 ons Review of Systems Constitutional: Constitutional: Denies body ache(s), Denies chills and Denies fever(s) Eyes: Eyes: Denies blurry vision ENT: Denies vertigo Cardiovascular: Cardiovascular: Denies chest pain Respiratory: Respiratory: Denies cough Gastrointestinal: Gastrointestinal: Denies abdominal pain, Reports bloating, Reports constipation, Denies diarrhea, Denies loose stools, Denies nausea and Denies vomiting Musculoskeletal: Musculoskeletal: Denies back pain Integumentary/Breasts: Skin/Breast: Denies rash Neurologic: Denies vertigo PMFSH Past Medical History Medical History Positive colorectal cancer screening using Cologuard test Respiratory failure with hypoxia and hypercapnia Bilateral carotid artery disease CAD (coronary artery disease) Anxiety and depression Constipation Anemia Chronic respiratory failure with hypoxia and hypercapnia Radiation fibrosis of lung Acute on chronic respiratory failure with hypoxia and hypercapnia HTN (hypertension) Dyslipidemia History of pneumonia Bacteremia due to Enterococcus COPD, severe Diabetes mellitus with hyperglycemia, without long-term current use of insulin Urinary incontinence Asthma Lung cancer Skin cancer Surgical History Hx of heart artery stent History of esophagogastroduodenoscopy (EGD) Hx of colonoscopy Family History Family History Father Medical history non-contributory Mother Medical history non-contributory Unknown family medical history Lung collapse Brother No problems noted. Brother No problems noted. Son Substance use disorder Son No problems noted. Daughter No problems noted. Sister No problems noted. Sister No problems noted. Sister No problems noted. Sister No problems noted. Other HTN (hypertension) Social History Social History Household Members: Spouse Household Members Other:: grandson Housing: Apartment Are you a primary medicare compliance auditor to a significant other at home: No Do you presently have visiting nurse or other home services: No Alcohol intake: never Patient Tobacco Use Status: Former Tobacco user Tobacco use type: Cigarette Smoked in Last 30 Days: No e-Cigarette/Vaping Use: Never Used Use of substances other than those prescribed or required for medical reasons: No Advance Directives: Yes Advance Directives on File: Yes Advance Directives Date on File: 06/08/22 Do you have a plan to hurt others: No Plan service: No Current occupational status: retired Cognitive needs: No Hearing needs: No Vision needs: No Physical Exam ED Vital Signs: Vital Signs - 24 hr 04/16/24 18:55 04/16/24 20:43 04/16/24 22:40 Temperature 98.1 F 99.2 F 98.4 F Pulse Rate 73 68 72 Respiratory Rate 20 20 16 Blood Pressure 98/59 L 103/69 98/70 Pulse Oximetry 84 L 98 99 Oxygen Delivery Method Room Air Nasal Cannula Nasal Cannula Oxygen Flow Rate 3 3 04/17/24 00:16 Temperature 98.3 F Pulse Rate 74 Respiratory Rate 21 H Blood Pressure 112/61 Pulse Oximetry 96 Oxygen Delivery Method Nasal Cannula Oxygen Flow Rate 3 BMI result Body Mass Index 33.6 Const General: healthy appearing, comfortable, no acute distress, alert and awake Nutritional Appearance: well nourished Orientation/consciousness: patient oriented x3 HENMT Head: Yes normocephalic and Yes atraumatic Eyes Eyelids: Yes eyelids normal Conjunctivae: conjunctivae normal Sclerae: sclerae normal Corneas: corneas normal Pupils: Equal, round and reactive pupils present EOM: EOMs intact bilaterally Neck Neck: Yes full ROM Resp Effort & Inspection: normal respiratory effort, able to speak in complete sentences and not labored GI Other: Patient's abdomen is quite distended Inspection: Yes distended Palpation (GI): Soft to palpation, not firm, nontender, no guarding and not rigid Auscultation: normoactive bowel sounds Skin General skin exam: elasticity normal Neuro General: patient oriented x3 Cranial nerves: Yes Equal, round and reactive pupils present and Yes Bilaterally intact EOM present Cognition (Neuro): normal cognition Extrem Other: Moving all extremities well without any obvious deformities Course Course Course Narrative: This is a rapid medical exam performed by Omaira Arango NP: Additional HPI, ROS, PE not included below will be deferred to primary provider. Patient is a 74-year-old male with history of cirrhosis with ascites, CAD, bilat carotid artery disease, DM, severe COPD on home O2, uses a concentrator when he goes out, anemia presenting with complaint of constipation, no BM for the past 10-12 days. Small amount of liquid stool with enema. Feels short of breath due to abdominal distention. Denies vomiting. O2 87% in triage with oxygen concentrator on. Plan: labs, viral serology, UA Medical Decision Making Medical Decision Making MDM Narrative: 74-year-old male past medical history as documented above presents for evaluation of decreased bowel movements. The patient believes he is constipated. He has no abdominal pain, no rectal pain, no rectal bleeding. He was not nauseous or vomiting and continued to have bowel movements, I have a very low suspicion for bowel obstruction. We will get a KUB to assess for degree of constipation versus rectal impaction Differential Diagnosis Differential Diagnoses: The differential diagnosis associated with the presentation includes Constipation Bowel obstruction Hemorrhoids Fecal impaction Lab Data MDM Lab Attestation statement: I reviewed the patient's lab results. No leukocytosis. The patient has a chronic normocytic anemia consistent with his baseline. Chemistries are significant for hypercapnia which is likely due to his COPD and nasal cannula use. This is unchanged from his baseline 04/16/24 19:16 04/16/24 19:16 Labs: Lab Results 04/16/24 04/16/24 Range/Units 19:16 22:47 WBC 5.7 (4.8-10.8) X10*3/uL RBC 3.98 L (4.60-5.80) X10*6/uL Hgb 11.5 L (14.0-18.0) g/dl Hct 36.5 L (42.0-52.0) % MCV 91.7 (80.0-98.0) fL MCH 28.9 (27.0-33.0) pg MCHC 31.5 (31.0-36.0) g/dl RDW 13.7 (11.0-16.0) % Plt Count 209 (160-400) X10*3/uL MPV 10.0 (9.4-12.4) fL Immature Gran % (Auto) 0.3 (0.0-0.4) % Neut % (Auto) 60.5 (45-73) % Lymph % (Auto) 17.8 L (20-40) % [place] % (Auto) 10.8 (2-11) % Eos % (Auto) 9.4 H (0-4) % Baso % (Auto) 1.2 (0-2) % Lymph # (Auto) 1.0 L (1.2-4.9) X10*3/uL [place] # (Auto) 0.6 (0.1-1.2) X10*3/uL Eos # (Auto) 0.5 H (0.0-0.4) X10*3/uL Baso # (Auto) 0.1 (0.0-0.2) X10*3/uL Abs Immat Gran (auto) 0.02 (0.00-0.03) X10*3/uL Absolute Neuts (auto) 3.5 (2.0-8.3) x10*3/uL Absolute Nucleated RBC 0.000 (0.0-0.012) X10*3/uL Nucleated RBC % (auto) 0.0 (0.0-0.2) /100WBC PT 11.0 (10.9-12.4) SEC INR 0.9 (0.9-1.1) Sodium 140 (135-145) mmol/L Potassium 4.2 (3.3-5.1) mmol/L Chloride 94 L (96-108) mmol/L Carbon Dioxide 37 H (22-29) mmol/L Anion Gap 13 (12-20) BUN 11 (9-16) mg/dL Creatinine 0.87 (0.5-1.4) mg/dL Estim Creat Clear Calc 80.0 Estimated GFR > 60 Random Glucose 191 H (60-115) mg/dL Calcium 9.4 (8.4-10.2) mg/dL Total Bilirubin 0.4 (0.0-1.0) mg/dL AST 28 (5-37) U/L ALT 16 (0-40) U/L Alkaline Phosphatase 93 (39-117) U/L Total Protein 7.4 (6.5-8.0) g/dL Albumin 4.1 (3.5-5.0) g/dL Lipase 20 (8-78) U/L Urine Color Yellow Urine Appearance Clear Urine pH 5.5 (5.0-9.0) Ur Specific [place] 1.015 (1.005-1.025) Urine Protein Negative (Neg-Trace) mg/dL Urine Glucose (UA) 100 H (Negative) mg/dL Urine Ketones Negative (Negative) mg/dL Urine Blood Negative (Negative) Urine Nitrite Negative (Negative) Ur Leukocyte Esterase Negative (Negative) Influenza Type A (PCR) NEGATIVE (Negative) Influenza Type B (PCR) NEGATIVE (Negative) RSV RNA Qual (PCR) NEGATIVE (Negative) SARS-CoV-2 RNA (RT-PCR) NEGATIVE (Negative) Independent Interpretation I performed an independent interpretation of an: Plain X-Ray Interpretation: Agree with Radiology interpretation of constipation Radiology Impression Discussion of test interpretation with radiology: I have reviewed the radiologist's reading. Radiologist Impression: Findings: Mild bibasilar atelectasis in the [id number]. No small bowel dilatation of the imaged abdomen, with under penetration artifacts related to patient body habitus. Moderate to severe stool burden, including imaged cecum. Severe osteoarthritis of the hips with question sclerosis of the avascular necrosis. Vascular calcifications are multifocal. Majority of the pelvis and spine are obscured. Likely enthesopathy in the [id number] IMPRESSION: 1. No small bowel obstruction by one view study. 2. Moderate to severe stool burden. This document has been electronically signed by: Usman Haines MD on 04/17/2024 00:31:50 Discharge Plan Discharge Clinical Impression: Constipation Patient Disposition: Home, Self-Care Instructions: Constipation (ED) Additional Instructions: Your x-ray shows moderate to severe constipation. I recommend that you continue MiraLax every night You may drink GoLYTELY until you have sufficient bowel movement Hydrate well Increase fiber intake in your diet Follow-up with your primary doctor, return for new or worsening symptoms Prescriptions: New peg 3350-electrolytes [GaviLyte-G] 236-22.74-6.74 -5.86 gram recon soln 240 ml PO Q10M PRN (Reason: constipation) Qty: 4000 0RF Rx Instructions: until you have 3-4 bowel movements No Action (DME) blood-glucose meter [FreeStyle Lite Meter] Kit See Rx Instructions .Route Qty: 1 0RF Rx Instructions: As directed glipizide 5 mg tablet 5 mg PO BID Qty: 270 1RF albuterol sulfate 90 mcg/actuation HFA aerosol inhaler 2 puff PO Q4H PRN (Reason: Shortness Of Breath Or Wheezing) Qty: 8.5 2RF albuterol sulfate [Ventolin HFA] 90 mcg/actuation HFA aerosol inhaler 2 puff inhalation Q4-6H PRN (Reason: shortness of breath or wheezing) Qty: 8.5 2RF atorvastatin 80 mg tablet 80 mg PO BEDTIME Qty: 90 1RF ipratropium-albuterol 0.5 mg-3 mg(2.5 mg base)/3 mL solution for nebulization 3 ml inhalation Q6H PRN (Reason: wheezing) Qty: 180 2RF metoprolol tartrate 25 mg tablet 25 mg PO BID Qty: 180 1RF (DME) lancets [FreeStyle Lancets] 28 gauge misc See Rx Instructions .Route Qty: 100 1RF Rx Instructions: Test blood sugar twice omeprazole 20 mg capsule,delayed release(DR/EC) 20 mg PO DAILY@0630 Qty: 30 1RF (DME) FreeStyle Lite Strips Strip See Rx Instructions .Route Qty: 50 7RF Rx Instructions: check fasting glucose once a day AC lorazepam [Ativan] 1 mg tablet 0.5 mg PO BID PRN (Reason: anxiety) Qty: 30 0RF Rx Instructions: Patient may request partial fill budesonide-formoterol [Symbicort] 160-4.5 mcg/actuation Hfa Aerosol Inhaler 2 puff INHALATION DAILY calcium carbonate-vitamin D3 600 mg-10 mcg (400 unit) tablet 1 tab PO DAILY escitalopram oxalate 20 mg tablet 20 mg PO DAILY Qty: 90 3RF metformin 1,000 mg tablet 1,000 mg PO BID Qty: 180 1RF (DME) Oxygen Home Use Kit See Rx Instructions .Route Rx Instructions: As directed Trulicity 0.75 mg/0.5 mL pen injector 0.75 mg subcut QWEEK 30 Days Qty: 2 5RF bisacodyl [Dulcolax (bisacodyl)] 5 mg tablet,delayed release (DR/EC) 10 mg PO ONCE 5 Days Qty: 10 0RF Rx Instructions: Take 2 tablets at 12 pm daily starting [address] scan polyethylene glycol 3350 [Miralax] 17 gram/dose powder 17 g PO DAILY 1 Days Qty: 238 0RF Rx Instructions: Mix Miralax with 64 oz(8 cups) of Crystal light. Take 2 tablets of Dulcolax qt 12 pm. Wait to have your 1st bowel movement, then begin drinking Miralax. Drink a glass of Miralax every 10-15 minutes until you are finished. You will drink at least another 4 cups of clear liquid of your choice over the next 2 hours. Please drink as many clear liquids as possible You may have clear liquids up to four hours before your CT colonography Print Language: Wolof
--- NOTE | 2024-04-16 19:11 | PC.NURSE ---
special agent in charge kelly notified of pt vitals and condition
[2024-04-16 19:25] LABS: MANUAL DIFF FLAG NO
[2024-04-16 19:34] LABS: Basophils Absolute Auto 0.1 X10*3/uL (0.0-0.2); Basophils Percent Auto 1.2 % (0-2); Eosinophils Absolute Auto 0.5 X10*3/uL (0.0-0.4); Eosinophils Percent Auto 9.4 % (0-4); Hematocrit 36.5 % (42.0-52.0); Hemoglobin 11.5 g/dl (14.0-18.0); Imm Gran Abs Auto 0.02 X10*3/uL (0.00-0.03); Imm Gran Pct Auto 0.3 % (0.0-0.4); Lymphocytes Percent Auto 17.8 % (20-40); Mean Corpuscular HGB Conc 31.5 g/dl (31.0-36.0); Mean Corpuscular Hemoglobin 28.9 pg (27.0-33.0); Mean Corpuscular Volume 91.7 fL (80.0-98.0); Monocytes Absolute Auto 0.6 X10*3/uL (0.1-1.2); Monocytes Percent Auto 10.8 % (2-11); Neutrophils Absolute Auto 3.5 x10*3/uL (2.0-8.3); Neutrophils Percent Auto 60.5 % (45-73); Platelet Count 209 X10*3/uL (160-400); Red Blood Count 3.98 X10*6/uL (4.60-5.80); Red Cell Distribution Width 13.7 % (11.0-16.0); White Blood Count 5.7 X10*3/uL (4.8-10.8)
[2024-04-16 19:42] LABS: Alanine Aminotransferase 16 U/L (0-40); Albumin Level 4.1 g/dL (3.5-5.0); Alkaline Phosphatase 93 U/L (39-117); Anion Gap 13 (12-20); Aspartate Amino Transferase 28 U/L (5-37); Bilirubin Total 0.4 mg/dL (0.0-1.0); Blood Urea Nitrogen 11 mg/dL (9-16); Calcium 9.4 mg/dL (8.4-10.2); Carbon Dioxide 37 mmol/L (22-29); Chloride 94 mmol/L (96-108); Estimated Glomerular Filt Rate > 60; Glucose Random 191 mg/dL (60-115); Lipase 20 U/L (8-78); Potassium 4.2 mmol/L (3.3-5.1); Sodium 140 mmol/L (135-145); Total Protein 7.4 g/dL (6.5-8.0)
[2024-04-16 19:46] LABS: INTERNATIONAL NORM RATIO 0.9 (0.9-1.1)
--- OUTSIDE RECORDS SUMMARY | 2024-04-16 20:03 | XMS_ITS ---
Author Organization [facility] Address [address] [place] [address] Care Team Providers Care Skip Load Driver Name Role Phone Bhaskar TITUS, Anne-Marie Dennison Primary Care Provider Un available Mary Jane Mc Unavailable [phone] REASON FOR VISIT SD Reschedule/Cancel Encounters Encounter Location Date Provider Diagnosis [facility] [address] [place] [address] 04/06/2024 Mary Jane Mc Plan Of Treatment No Information Progress Notes * Sukhjinder REEDSTEPHENIE: 0 (74 yo M)Acc No.[id number]:04/06/2024 Patient:?Fitz REED :1950???Age:74 Y???Sex:Male Address:[address] [place] [address], [id number] * true * Date:? Generated for Printi danna/Barbara/eTransmitting on:?04/16/2024 08:03 PM EST
--- OUTSIDE RECORDS SUMMARY | 2024-04-16 20:03 | XMS_ITS ---
Author Organization [facility] Address [address] [facility] [address] Care Team Providers Care Continuity Manager Name Role Phone Bhaskar TITUS, Anne-Marie Dennison Primary Care Provider Un available Mc, Mary Jane Unavailable [phone] Shashank Hunt Unavailable [phone] Allergies No Known Allergies REASON FOR VISIT [...] an other tobacco user? No Vital Signs Blood pressure systolic 127 mm Hg 12/05/19 24 Blood pressure diastolic 67 mm Hg 024 Height 5ft6in in 12/05/2023 Weight 200 lbs 12/05/2023 BMI 32.28 kg/m2 12/05/2023 Encounters Encounter Location Date Provider Diagnosis [facility] [address] [place] [address] 12/05/2023 Shashank Hunt Tinea unguium B35.1 ; [...] Appt Details Follow Up: 4 Months, Reason: Procedure Notes * Category Sub-Category Detail Notes [...] as necessary. Patient chooses, no pharmaceutical tx (50210) Keratoma Treatment Parring or Cutting o f Benign Hyperkeratotic Lesion(s) 32765 ( >4 Lesions) - The Benign hyperkeratotic lesions, as described above were pared, and/or cut utilizing a sterile #15 blade, tissue nippers, and/or dremel Progress Notes * Sukhjinder REEDOB: 0 (73 yo M)Acc No.[id number]:12/05/2023 Progress Note Patient:?Fitz Reed Provider:?Shashank Hunt DPM :1950???Age:73 Y???Sex:Male Jose e:12/05/2023 Address:[address] [place], [place] [id number] Pcp:Eddie Isabel Subjective: * Chief Complaints: * [...] as necessary. Patient chooses, no pharmaceutical tx (66822).?Keratoma Treatment:?Parring or Cutting of Benign Hyperkeratotic Lesion(s)?90938 ( >4 Lesions) - The Benign hyperkeratotic lesions, as described above were pared, and/or cut utilizing a sterile #15 blade, tissue nippers, and/or dremel.? * Immunizations:? Influenza (Not administered - Refused: Patient decision) * Procedure Codes:?40064 DEBRI DE NAIL, 6 OR MORE, Modifiers: XS 96145 TRIM SKIN LESIONS, OVER 4, Modifiers: XS * Follow Up:?4 Months * Images: * Sign off status: Completed true * Provider:?Shashank Hunt DPM Date:? 024 Generated for Rosanna clay/Barbara/Jennifer on:?04/16/2024 08:03 PM EST History and Physical Notes * [...] no acute distress ORIENTED: person,place, and ti me Ophthalmology Referral DIABETES EYE EXAM Diabetic Reti [...]
--- OUTSIDE RECORDS SUMMARY | 2024-04-16 20:04 | XMS_ITS | Clinical Summary ---
Author Organization Unknown Care Team Providers Care Logistics Analytics Manager Name Role Phone MAINOR TITUS, JOSE F ESPINOSA Unavailable Unavaila ble JUAN DAVID WARES SORTER, HARI Unavailable Unavail able TOMMY RN, ZAHEER Unavailable Unavailable EVAN COHEN WARES SORTER, VIOLETTA Unavailable Unavail able JUDITH EMMANUEL LPN, CALE Unavailable Unavai arthur Payers Payer Name Policy Type Policy Number Effective Date Expira tion Date MEDICARE - [facility] [id number] [facility] [id number] Problems Condition Name Condition Details Condition Category [...] 04-08 00:00: 00 ATHSCL HEART DISEASE OF [place] CORONARY ARTERY W/O ANG PCTRS Active 04-08 [...] OF NICOTINE DEPENDENCE Active 04-08 00:00: 00 [employer] (CURRENT) USE OF ASPIRIN Active 04-08 00:00: 00 [employer] (CURRENT) USE OF ORAL HYPOGLYCEMIC DRUGS Active [...] 08-06 00:00: 00 08-08 23:59 :00 No [id number] Per instruc tions DAILY Per instructio ns DAILY (route: oral) Med Classific ation: Endocrine furosemide 20 mg tablet -19 00:00: 00 08-06 23:59 :00 No [id number] Per instruc tions EVERY DAY Per instructio ns EVERY DAY (route: oral) Med Classific ation: Cardiovas cular Therapy Agents albuterol sulfate HFA 90 mcg/actuati on aerosol inhaler 07-24 00:00: 00 02-19 23:59 :00 No [id number] 2 puff NEEDED 2 puff NEEDED (route: inhalation ) Med Classific ation: Respirato ry Therapy Agents lorazepam 0.5 mg tablet 07-24 00:00: 00 08-21 23:59 :00 No [id number] Per instruc tions DAILY NEEDED Per instructio ns DAILY NEEDED (route: oral) Med Classific ation: Central Nervous System Agents hydrochloro thiazide 25 mg tablet 07-18 00:00: 00 02-19 23:59 :00 No [id number] Per instruc tions EVERY Per instructio ns EVERY (route: oral) Med Classific ation: Cardiovas cular Therapy Agents glipizide 5 mg tablet 07-17 00:00: 00 09-26 23:59 :00 No [id number] Per instruc tions 2 TIMES DAILY Per instructio ns 2 TIMES DAILY (route: oral) Med Classific ation: Endocrine omeprazole 20 mg capsule,del ayed release 07-17 00:00: 00 02-19 23:59 :00 No [id number] Per instruc tions EVERY DAY Per instructio ns EVERY DAY (route: oral) Med Classific ation: Gastroint estinal Therapy Agents metoprolol tartrate 25 mg tablet 07-10 00:00: 00 02-19 23:59 :00 No [id number] Per instruc tions TWICE A DAY Per instructio ns TWICE A DAY (route: oral) Med Classific ation: Cardiovas cular Therapy Agents aspirin 81 mg tablet,courtney yed release 08-09 00:00: 00 02-19 23:59 :00 No [id number] 1 tablet DAILY 1 tablet DAILY (route: oral) Med Classific ation: Hematolog ical Agents atorvastati n 80 mg tablet 08-09 00:00: 00 02-19 23:59 :00 No [id number] 1 tablet BEDTIME 1 tablet BEDTIME (route: oral) Med Classific ation: Cardiovas cular Therapy Agents budesonide- formoterol HFA 160 mcg-4.5 mcg/actuati on aerosol inhaler 08-09 00:00: 00 02-19 23:59 :00 No [id number] 1 puff DAILY 1 puff DAILY (route: inhalation ) Med Classific ation: Respirato ry Therapy Agents isosorbide mononitrate ER 30 mg tablet,exte nded release 24 hr 08-09 00:00: 00 02-19 23:59 :00 No [id number] 1 tablet DAILY 1 tablet DAILY (route: oral) Med Classific ation: Cardiovas cular Therapy Agents Lexapro 20 mg tablet 08-09 00:00: 00 02-19 23:59 :00 No [id number] 1 tablet DAILY 1 tablet DAILY (route: oral) Med Classific ation: Central Nervous System Agents metformin 1,000 mg tablet 08-09 00:00: 00 02-19 23:59 :00 No [id number] 1 tablet 2 TIMES DAILY 1 tablet 2 TIMES DAILY (route: oral) Med Classific ation: Endocrine Miralax 17 gram/dose oral powder 08-09 00:00: 00 02-19 23:59 :00 No [id number] Per instruc tions NEEDED Per instructio ns NEEDED (route: oral) Med Classific ation: Gastroint estinal Therapy Agents multivitami n tablet 08-09 00:00: 00 02-19 23:59 :00 No [id number] 1 tablet DAILY 1 tablet DAILY (route: oral) Med Classific ation: Electroly te Balance-N utritiona l Products O2 - OXYGEN 08-09 00:00: 00 02-19 23:59 :00 No [id number] 2.5 Liter O2 - CONTINUOUS 2.5 Liter O2 - CONTINUOUS (route: Oxygen) Alternate Route: O2 - NASAL CANNULA. Med Classific ation: Medical Oxygen lorazepam 1 mg tablet 08-21 00:00: 00 02-19 23:59 :00 No [id number] 1 tablet 2 TIMES DAILY 1 tablet 2 TIMES DAILY (route: oral) Med Classific ation: Central Nervous System Agents lactulose 10 gram/15 mL oral solution 08-21 00:00: 00 02-19 23:59 :00 No [id number] 15 mL DAILY 15 mL DAILY (route: oral) Med Classific ation: Gastroint estinal Therapy Agents escitalopra m 20 mg tablet 2022-04 00:00: 00 Yes [id number] 1 tablet DAILY 1 tablet DAILY (route: oral) Med Classific ation: Central Nervous System Agents azithromyci n 500 mg tablet 2022-04 00:00: 00 07-18 23:59 :00 No [id number] Per instruc tions EVERY Per instructio ns EVERY (route: oral) Med Classific ation: Anti-Infe ctive Agents omeprazole 20 mg capsule,del ayed release 2022-04 00:00: 00 11-07 23:59 :00 No [id number] Per instruc tions EVERY DAY Per instructio ns EVERY DAY (route: oral) Med Classific ation: Gastroint estinal Therapy Agents atorvastati n 80 mg tablet 2022-04 00:00: 00 Yes [id number] Per instruc tions EVERYDAY AT BEDTIME Per instructio ns EVERYDAY AT BEDTIME (route: oral) Med Classific ation: Cardiovas cular Therapy Agents ezetimibe 10 mg tablet 2022-04 00:00: 00 02-24 23:59 :00 No [id number] Per instruc tions EVERY DAY Per instructio ns EVERY DAY (route: oral) Med Classific ation: Cardiovas cular Therapy Agents acetazolami de 250 mg tablet 2022-04 00:00: 00 10-14 00:00 :00 No [id number] 1 tablet DAILY 1 tablet DAILY (route: oral) Med Classific ation: Cardiovas cular Therapy Agents Calcium 600 with Vitamin D3 600 mg-10 mcg (400 unit) chewable tablet 2022-04 00:00: 00 Yes [id number] 1 tablet DAILY 1 tablet DAILY (route: oral) Med Classific ation: Electroly te Balance-N utritiona l Products cefuroxime axetil 500 mg tablet 2022-04 00:00: 00 07-18 23:59 :00 No [id number] 1 tablet EVERY 12 HOURS 1 tablet EVERY 12 HOURS (route: oral) Med Classific ation: Anti-Infe ctive Agents glipizide 5 mg tablet 2022-04 00:00: 00 10-14 00:00 :00 No [id number] 1 tablet 2 TIMES DAILY 1 tablet 2 TIMES DAILY (route: oral) Med Classific ation: Endocrine isosorbide mononitrate ER 30 mg tablet,exte nded release 24 hr 2022-04 00:00: 00 10-14 23:59 :00 No [id number] 1 tablet DAILY 1 tablet DAILY (route: oral) Med Classific ation: Cardiovas cular Therapy Agents lorazepam 1 mg tablet 2022-04 00:00: 00 11-07 23:59 :00 No [id number] .5 tablet 2 TIMES DAILY .5 tablet 2 TIMES DAILY (route: oral) Med Classific ation: Central Nervous System Agents metformin 1,000 mg tablet 2022-04 00:00: 00 Yes [id number] 1 tablet 2 TIMES DAILY 1 tablet 2 TIMES DAILY (route: oral) Med Classific ation: Endocrine metoprolol tartrate 25 mg tablet 2022-04 00:00: 00 Yes [id number] 1 tablet 2 TIMES DAILY 1 tablet 2 TIMES DAILY (route: oral) Med Classific ation: Cardiovas cular Therapy Agents Miralax 17 gram/dose oral powder 2022-04 00:00: 00 Yes [id number] 17 gram DAILY 17 gram DAILY (route: oral) Med Classific ation: Gastroint estinal Therapy Agents prednisone 10 mg tablet 2022-04 00:00: 00 03-08 23:59 :00 No [id number] Per instruc tions DAILY Per instructio ns DAILY (route: oral) Med Classific ation: Endocrine ProAir RespiClick 90 mcg/actuati on breath activated 2022-04 00:00: 00 11-07 23:59 :00 No [id number] 2 puff EVERY 4 HOURS 2 puff EVERY 4 HOURS (route: inhalation ) Med Classific ation: Respirato ry Therapy Agents Symbicort 160 mcg-4.5 mcg/actuati on HFA aerosol inhaler 2022-04 00:00: 00 10-06 23:59 :00 No [id number] 1 puff 2 TIMES DAILY 1 puff 2 TIMES DAILY (route: inhalation ) Med Classific ation: Respirato ry Therapy Agents prednisone 10 mg tablet 2- 00:00: 00 06-05 23:59 :00 No [id number] Per instruc tions DAILY Per instructio ns DAILY (route: oral) Med Classific ation: Endocrine cefpodoxime 100 mg tablet 2- 00:00: 00 06-05 23:59 :00 No [id number] 1 tablet EVERY 12 HOURS 1 tablet EVERY 12 HOURS (route: oral) Med Classific ation: Anti-Infe ctive Agents O2 - OXYGEN 2022-04 00:00: 00 Yes [id number] 2-3 Liter O2 - CONTINUOUS 2-3 Liter O2 - CONTINUOUS (route: Oxygen) Alternate Route: O2 - NASAL CANNULA. Med Classific ation: Medical Oxygen prednisone 10 mg tablet 09 00:00: 00 07-27 23:59 :00 No [id number] Per instruc tions DAILY Per instructio ns DAILY (route: oral) Med Classific ation: Endocrine Incruse Ellipta 62.5 mcg/actuati on powder for inhalation 10-14 00:00: 00 11-07 23:59 :00 No [id number] 1 inhalat ion DAILY 1 inhalation DAILY (route: inhalation ) Med Classific ation: Respirato ry Therapy Agents prednisone 50 mg tablet 10-12 00:00: 00 10-17 23:59 :00 No [id number] 1 tablet DAILY 1 tablet DAILY (route: oral) Med Classific ation: Endocrine budesonide 0.5 mg/2 mL suspension for nebulizatio n 11-07 00:00: 00 11-17 23:59 :00 No [id number] 2 mL 2 TIMES DAILY 2 mL 2 TIMES DAILY (route: inhalation ) Med Classific ation: Respirato ry Therapy Agents guaifenesin ER 600 mg tablet, extended release 12 hr 11-07 00:00: 00 11-17 23:59 :00 No [id number] 1 tablet 2 TIMES DAILY 1 tablet 2 TIMES DAILY (route: oral) Med Classific ation: Respirato ry Therapy Agents pantoprazol e 40 mg tablet,courtney yed release 11-07 00:00: 00 12-07 23:59 :00 No [id number] 1 tablet 2 TIMES DAILY 1 tablet 2 TIMES DAILY (route: oral) Med Classific ation: Gastroint estinal Therapy Agents prednisone 10 mg tablet 11-07 00:00: 00 11-19 23:59 :00 No [id number] Per instruc tions DAILY Per instructio ns DAILY (route: oral) Med Classific ation: Endocrine azithromyci n 500 mg tablet 11-07 00:00: 00 11-14 23:59 :00 No [id number] 1 tablet DAILY 1 tablet DAILY (route: oral) Med Classific ation: Anti-Infe ctive Agents azithromyci n 500 mg tablet 11-15 00:00: 00 01-02 23:59 :00 No [id number] Per instruc tions 3 TIMES A WEEK Per instructio ns 3 TIMES A WEEK (route: oral) Med Classific ation: Anti-Infe ctive Agents ipratropium 0.5 mg-albutero l 3 mg (2.5 mg base)/3 mL nebulizatio n soln 11-07 00:00: 00 11-17 23:59 :00 No [id number] 3 mL 4 TIMES DAILY 3 mL 4 TIMES DAILY (route: inhalation ) Med Classific ation: Respirato ry Therapy Agents albuterol sulfate HFA 90 mcg/actuati on aerosol inhaler 11-07 00:00: 00 Yes [id number] 2 puff EVERY 6 HOURS 2 puff EVERY 6 HOURS (route: inhalation ) Med Classific ation: Respirato ry Therapy Agents aspirin 81 mg chewable tablet 11-07 00:00: 00 Yes [id number] 1 tablet DAILY 1 tablet DAILY (route: oral) Med Classific ation: Hematolog ical Agents glipizide 5 mg tablet 11-07 00:00: 00 Yes [id number] 1 tablet 2 TIMES DAILY 1 tablet 2 TIMES DAILY (route: oral) Med Classific ation: Endocrine lorazepam 0.5 mg tablet 11-07 00:00: 00 Yes [id number] 1 tablet EVERY 12 HOURS 1 tablet [...] CARE WILL BE ESTABLISHED THAT MEETS PATIENT'S RETIREMENT NEEDS AND INCLUDES PATIENT GOAL FOR HOME [...] End Date/Time Encounter Type Admission Type Attending [facility] Care Department Encounter ID Discharge Date Discharge Status Discharge Condition Discharge Reason Percent Goals Met 2023-10-15 00:00:00 2024-02-07 00:00:00 Outpatient RECERTIFIC ATION [facility] [id number] 2024-02-07 00:00:00 DISCHARGE TO HOME OR SELF CARE INDEPENDEN T IN THE HOME GOALS MET ( ONLY) 74.36
--- OUTSIDE RECORDS SUMMARY | 2024-04-16 20:04 | XMS_ITS | Patient Health Record ---
Author Organization [facility] Address [address] [place] [address] Care Team Providers Care Leather Carver Name Role Phone Bhaskar TITUS, Anne-Marie Dennison Primary Care Provider Un available McMary Jane julian Unavailable [phone] Shashank Hunt Unavailable [phone] Allergies No Known Allergies Reason For Referral No Information Medications Medication SIG (Take, Route, Frequency, Duration) Notes Start Date End Date Status glipiZIDE 5 MG Orally Activ e prednisoLONE Not-Jacobo ing Voltaren 1 % as directed Externally Active Omeprazole 20 MG 1 tablet Orally Once a day Active Metoprolol Succinate ER 25 MG 1 tablet Orally Once a day Active Atorvastatin Calcium 80 MG 1 tablet Orally Once a day Active Extra Depth Diabetic Shoes with 3 Pair Custom heat-molded multi-density innersoles for 1 year Dx: 02/13/2021 Active Aspirin Once a day Active Symbicort 2 puffs Active Loratadine 10 MG 1 tablet Orally Once a day Active Isosorbide Dinitrate 30 MG 1 tablet Orally once a day Active metFORMIN HCl 1000 MG Orally twice a day Active LORazepam 0.5 MG 1 tablet as needed Orally every 6 hrs Active Escitalopram Oxalate 10 MG 1 tablet Orally Once a day Active Daily Kathleen Active Extra Depth Diabetic Shoes with 3 Pair Custom heat-molded multi-density innersoles for 1 year Dx: 11/04/2017 Not-Taking Immunizations Vaccine Route Administration Date Status Comme [...] Status Risk Notes Problem Acquired hallux valgus (71928347) Hallux valgus (acquired), right foot (M20.11) Active confirmed Problem Acquired hammer toe of right foot (5048321886912630 ) Other hammer toe(s) (acquired), right foot (M20.41) Active confirmed Problem Polyneuropathy due to type 2 diabetes mellitus (709023119) Type 2 diabetes mellitus with diabetic polyneuropathy (E11.42) Active confirmed Vital Signs Blood pressure diastolic 67 mm Hg 12/05/2023 Height 5ft6in in 12/05/2023 Blood pressure systolic 127 mm Hg 12/05/2023 Weight 200 lbs 12/05/2023 BMI 32.28 kg/m2 12/05/2023 Encounters Encounter Location Date Provider Diagnosis [address] [address] 12/05/2023 Shashank Hunt Tinea unguium B35.1 ; Type 2 diabetes mellitus with diabetic polyneuropathy E11.42 ; Pain in right toe(s) M79.674 ; Pain in left toe(s) M79.675 ; Other hammer toe(s) (acquired), right foot M20.41 ; Hallux valgus (acquired), right foot M20.11 ; Xerosis cutis L85.3 and Ingrowing nail L60.[address] [address] 07/15/2023 Shashank Hunt [facility] [address] 04/06/2024 Mary Jane Mc Assessments Encounter Date Diagnosis (ICD Code) Assessment [...] Treatment Pending Test Test Name Order Date [id number] NAIL, 6 OR MORE 11/04/2017 [id number] NAIL, 6 OR MORE 02/03/2018 78215-NILS SKIN LESIONS, OVER 4 11/05/19 18 09550-EAAY SKIN LESIONS, OVER 4 05/05/19 19 62975-PDXL SKIN LESIONS, OVER 4 08/05/19 19 96855-CLDS SKIN LESIONS, OVER 4 11/06/19 19 35454-FTZS SKIN LESIONS, OVER 4 02/10/20 19 73342-DCCG SKIN LESIONS, OVER 4 06/10/19 20 88316-AZNS SKIN LESIONS, OVER 4 12/09/19 20 67217-LTYG SKIN LESIONS, OVER 4 03/23/20 20 96723-YJTD SKIN LESIONS, OVER 4 07/12/19 21 39350-TRMN SKIN LESIONS, OVER 4 11/04/19 21 68690-WBTM SKIN LESIONS, OVER 4 02/14/20 21 88752-UPSC SKIN LESIONS, OVER 4 06/05/19 22 74451-LJHK SKIN LESIONS, OVER 4 02/04/20 18 Insurance Providers Payer Name Payer Address Payer Phone Subscriber Number Group Number Insured Name Patient Relationship to Insured Coverage Start Date Coverage End Date Medicare National [employer] [address] [place] [address] [id number] Fitz Reed Self - patient is the insured [employer] [address] [place] [address] [id number] Fitz Reed Self - patient is the insured Medical [...]
--- OUTSIDE RECORDS SUMMARY | 2024-04-16 20:04 | XMS_ITS | Clinical Summary ---
Author Organization Unknown Care Team Providers Care Trade Mark Examiner Name Role Phone MAINOR TITUS, JOSE F ESPINOSA Unavailable Unavaila ble JUAN DAVID PMO LEAD, HARI Unavailable Unavail able TOMMY RN, ZAHEER Unavailable Unavailable EVAN COHEN PMO LEAD, VIOLETTA Unavailable Unavail able JUDITH EMMANUEL LPN, CALE Unavailable Unavai arthur Payers Payer Name Policy Type Policy Number Effective Date Expira tion Date MEDICARE - [facility] [id number] [facility] [id number] Problems Condition Name Condition Details Condition Category [...] 04-08 00:00: 00 ATHSCL HEART DISEASE OF [place] CORONARY ARTERY W/O ANG PCTRS Active 04-08 [...] OF NICOTINE DEPENDENCE Active 04-08 00:00: 00 POT MAKER (CURRENT) USE OF ASPIRIN Active 04-08 00:00: 00 POT MAKER (CURRENT) USE OF ORAL HYPOGLYCEMIC DRUGS Active [...] 08-06 00:00: 00 08-08 23:59 :00 No [id number] Per instruc tions DAILY Per instructio ns DAILY (route: oral) Med Classific ation: Endocrine furosemide 20 mg tablet -19 00:00: 00 08-06 23:59 :00 No [id number] Per instruc tions EVERY DAY Per instructio ns EVERY DAY (route: oral) Med Classific ation: Cardiovas cular Therapy Agents albuterol sulfate HFA 90 mcg/actuati on aerosol inhaler 07-24 00:00: 00 02-19 23:59 :00 No [id number] 2 puff NEEDED 2 puff NEEDED (route: inhalation ) Med Classific ation: Respirato ry Therapy Agents lorazepam 0.5 mg tablet 07-24 00:00: 00 08-21 23:59 :00 No [id number] Per instruc tions DAILY NEEDED Per instructio ns DAILY NEEDED (route: oral) Med Classific ation: Central Nervous System Agents hydrochloro thiazide 25 mg tablet 07-18 00:00: 00 02-19 23:59 :00 No [id number] Per instruc tions EVERY Per instructio ns EVERY (route: oral) Med Classific ation: Cardiovas cular Therapy Agents glipizide 5 mg tablet 07-17 00:00: 00 09-26 23:59 :00 No [id number] Per instruc tions 2 TIMES DAILY Per instructio ns 2 TIMES DAILY (route: oral) Med Classific ation: Endocrine omeprazole 20 mg capsule,del ayed release 07-17 00:00: 00 02-19 23:59 :00 No [id number] Per instruc tions EVERY DAY Per instructio ns EVERY DAY (route: oral) Med Classific ation: Gastroint estinal Therapy Agents metoprolol tartrate 25 mg tablet 07-10 00:00: 00 02-19 23:59 :00 No [id number] Per instruc tions TWICE A DAY Per instructio ns TWICE A DAY (route: oral) Med Classific ation: Cardiovas cular Therapy Agents aspirin 81 mg tablet,courtney yed release 08-09 00:00: 00 02-19 23:59 :00 No [id number] 1 tablet DAILY 1 tablet DAILY (route: oral) Med Classific ation: Hematolog ical Agents atorvastati n 80 mg tablet 08-09 00:00: 00 02-19 23:59 :00 No [id number] 1 tablet BEDTIME 1 tablet BEDTIME (route: oral) Med Classific ation: Cardiovas cular Therapy Agents budesonide- formoterol HFA 160 mcg-4.5 mcg/actuati on aerosol inhaler 08-09 00:00: 00 02-19 23:59 :00 No [id number] 1 puff DAILY 1 puff DAILY (route: inhalation ) Med Classific ation: Respirato ry Therapy Agents isosorbide mononitrate ER 30 mg tablet,exte nded release 24 hr 08-09 00:00: 00 02-19 23:59 :00 No [id number] 1 tablet DAILY 1 tablet DAILY (route: oral) Med Classific ation: Cardiovas cular Therapy Agents Lexapro 20 mg tablet 08-09 00:00: 00 02-19 23:59 :00 No [id number] 1 tablet DAILY 1 tablet DAILY (route: oral) Med Classific ation: Central Nervous System Agents metformin 1,000 mg tablet 08-09 00:00: 00 02-19 23:59 :00 No [id number] 1 tablet 2 TIMES DAILY 1 tablet 2 TIMES DAILY (route: oral) Med Classific ation: Endocrine Miralax 17 gram/dose oral powder 08-09 00:00: 00 02-19 23:59 :00 No [id number] Per instruc tions NEEDED Per instructio ns NEEDED (route: oral) Med Classific ation: Gastroint estinal Therapy Agents multivitami n tablet 08-09 00:00: 00 02-19 23:59 :00 No [id number] 1 tablet DAILY 1 tablet DAILY (route: oral) Med Classific ation: Electroly te Balance-N utritiona l Products O2 - OXYGEN 08-09 00:00: 00 02-19 23:59 :00 No [id number] 2.5 Liter O2 - CONTINUOUS 2.5 Liter O2 - CONTINUOUS (route: Oxygen) Alternate Route: O2 - NASAL CANNULA. Med Classific ation: Medical Oxygen lorazepam 1 mg tablet 08-21 00:00: 00 02-19 23:59 :00 No [id number] 1 tablet 2 TIMES DAILY 1 tablet 2 TIMES DAILY (route: oral) Med Classific ation: Central Nervous System Agents lactulose 10 gram/15 mL oral solution 08-21 00:00: 00 02-19 23:59 :00 No [id number] 15 mL DAILY 15 mL DAILY (route: oral) Med Classific ation: Gastroint estinal Therapy Agents escitalopra m 20 mg tablet 2022-04 00:00: 00 Yes [id number] 1 tablet DAILY 1 tablet DAILY (route: oral) Med Classific ation: Central Nervous System Agents azithromyci n 500 mg tablet 2022-04 00:00: 00 07-18 23:59 :00 No [id number] Per instruc tions EVERY Per instructio ns EVERY (route: oral) Med Classific ation: Anti-Infe ctive Agents omeprazole 20 mg capsule,del ayed release 2022-04 00:00: 00 11-07 23:59 :00 No [id number] Per instruc tions EVERY DAY Per instructio ns EVERY DAY (route: oral) Med Classific ation: Gastroint estinal Therapy Agents atorvastati n 80 mg tablet 2022-04 00:00: 00 Yes [id number] Per instruc tions EVERYDAY AT BEDTIME Per instructio ns EVERYDAY AT BEDTIME (route: oral) Med Classific ation: Cardiovas cular Therapy Agents ezetimibe 10 mg tablet 2022-04 00:00: 00 02-24 23:59 :00 No [id number] Per instruc tions EVERY DAY Per instructio ns EVERY DAY (route: oral) Med Classific ation: Cardiovas cular Therapy Agents acetazolami de 250 mg tablet 2022-04 00:00: 00 10-14 00:00 :00 No [id number] 1 tablet DAILY 1 tablet DAILY (route: oral) Med Classific ation: Cardiovas cular Therapy Agents Calcium 600 with Vitamin D3 600 mg-10 mcg (400 unit) chewable tablet 2022-04 00:00: 00 Yes [id number] 1 tablet DAILY 1 tablet DAILY (route: oral) Med Classific ation: Electroly te Balance-N utritiona l Products cefuroxime axetil 500 mg tablet 2022-04 00:00: 00 07-18 23:59 :00 No [id number] 1 tablet EVERY 12 HOURS 1 tablet EVERY 12 HOURS (route: oral) Med Classific ation: Anti-Infe ctive Agents glipizide 5 mg tablet 2022-04 00:00: 00 10-14 00:00 :00 No [id number] 1 tablet 2 TIMES DAILY 1 tablet 2 TIMES DAILY (route: oral) Med Classific ation: Endocrine isosorbide mononitrate ER 30 mg tablet,exte nded release 24 hr 2022-04 00:00: 00 10-14 23:59 :00 No [id number] 1 tablet DAILY 1 tablet DAILY (route: oral) Med Classific ation: Cardiovas cular Therapy Agents lorazepam 1 mg tablet 2022-04 00:00: 00 11-07 23:59 :00 No [id number] .5 tablet 2 TIMES DAILY .5 tablet 2 TIMES DAILY (route: oral) Med Classific ation: Central Nervous System Agents metformin 1,000 mg tablet 2022-04 00:00: 00 Yes [id number] 1 tablet 2 TIMES DAILY 1 tablet 2 TIMES DAILY (route: oral) Med Classific ation: Endocrine metoprolol tartrate 25 mg tablet 2022-04 00:00: 00 Yes [id number] 1 tablet 2 TIMES DAILY 1 tablet 2 TIMES DAILY (route: oral) Med Classific ation: Cardiovas cular Therapy Agents Miralax 17 gram/dose oral powder 2022-04 00:00: 00 Yes [id number] 17 gram DAILY 17 gram DAILY (route: oral) Med Classific ation: Gastroint estinal Therapy Agents prednisone 10 mg tablet 2022-04 00:00: 00 03-08 23:59 :00 No [id number] Per instruc tions DAILY Per instructio ns DAILY (route: oral) Med Classific ation: Endocrine ProAir RespiClick 90 mcg/actuati on breath activated 2022-04 00:00: 00 11-07 23:59 :00 No [id number] 2 puff EVERY 4 HOURS 2 puff EVERY 4 HOURS (route: inhalation ) Med Classific ation: Respirato ry Therapy Agents Symbicort 160 mcg-4.5 mcg/actuati on HFA aerosol inhaler 2022-04 00:00: 00 10-06 23:59 :00 No [id number] 1 puff 2 TIMES DAILY 1 puff 2 TIMES DAILY (route: inhalation ) Med Classific ation: Respirato ry Therapy Agents prednisone 10 mg tablet 2- 00:00: 00 06-05 23:59 :00 No [id number] Per instruc tions DAILY Per instructio ns DAILY (route: oral) Med Classific ation: Endocrine cefpodoxime 100 mg tablet 2- 00:00: 00 06-05 23:59 :00 No [id number] 1 tablet EVERY 12 HOURS 1 tablet EVERY 12 HOURS (route: oral) Med Classific ation: Anti-Infe ctive Agents O2 - OXYGEN 2022-04 00:00: 00 Yes [id number] 2-3 Liter O2 - CONTINUOUS 2-3 Liter O2 - CONTINUOUS (route: Oxygen) Alternate Route: O2 - NASAL CANNULA. Med Classific ation: Medical Oxygen prednisone 10 mg tablet 09 00:00: 00 07-27 23:59 :00 No [id number] Per instruc tions DAILY Per instructio ns DAILY (route: oral) Med Classific ation: Endocrine Incruse Ellipta 62.5 mcg/actuati on powder for inhalation 10-14 00:00: 00 11-07 23:59 :00 No [id number] 1 inhalat ion DAILY 1 inhalation DAILY (route: inhalation ) Med Classific ation: Respirato ry Therapy Agents prednisone 50 mg tablet 10-12 00:00: 00 10-17 23:59 :00 No [id number] 1 tablet DAILY 1 tablet DAILY (route: oral) Med Classific ation: Endocrine budesonide 0.5 mg/2 mL suspension for nebulizatio n 11-07 00:00: 00 11-17 23:59 :00 No [id number] 2 mL 2 TIMES DAILY 2 mL 2 TIMES DAILY (route: inhalation ) Med Classific ation: Respirato ry Therapy Agents guaifenesin ER 600 mg tablet, extended release 12 hr 11-07 00:00: 00 11-17 23:59 :00 No [id number] 1 tablet 2 TIMES DAILY 1 tablet 2 TIMES DAILY (route: oral) Med Classific ation: Respirato ry Therapy Agents pantoprazol e 40 mg tablet,courtney yed release 11-07 00:00: 00 12-07 23:59 :00 No [id number] 1 tablet 2 TIMES DAILY 1 tablet 2 TIMES DAILY (route: oral) Med Classific ation: Gastroint estinal Therapy Agents prednisone 10 mg tablet 11-07 00:00: 00 11-19 23:59 :00 No [id number] Per instruc tions DAILY Per instructio ns DAILY (route: oral) Med Classific ation: Endocrine azithromyci n 500 mg tablet 11-07 00:00: 00 11-14 23:59 :00 No [id number] 1 tablet DAILY 1 tablet DAILY (route: oral) Med Classific ation: Anti-Infe ctive Agents azithromyci n 500 mg tablet 11-15 00:00: 00 01-02 23:59 :00 No [id number] Per instruc tions 3 TIMES A WEEK Per instructio ns 3 TIMES A WEEK (route: oral) Med Classific ation: Anti-Infe ctive Agents ipratropium 0.5 mg-albutero l 3 mg (2.5 mg base)/3 mL nebulizatio n soln 11-07 00:00: 00 11-17 23:59 :00 No [id number] 3 mL 4 TIMES DAILY 3 mL 4 TIMES DAILY (route: inhalation ) Med Classific ation: Respirato ry Therapy Agents albuterol sulfate HFA 90 mcg/actuati on aerosol inhaler 11-07 00:00: 00 Yes [id number] 2 puff EVERY 6 HOURS 2 puff EVERY 6 HOURS (route: inhalation ) Med Classific ation: Respirato ry Therapy Agents aspirin 81 mg chewable tablet 11-07 00:00: 00 Yes [id number] 1 tablet DAILY 1 tablet DAILY (route: oral) Med Classific ation: Hematolog ical Agents glipizide 5 mg tablet 11-07 00:00: 00 Yes [id number] 1 tablet 2 TIMES DAILY 1 tablet 2 TIMES DAILY (route: oral) Med Classific ation: Endocrine lorazepam 0.5 mg tablet 11-07 00:00: 00 Yes [id number] 1 tablet EVERY 12 HOURS 1 tablet [...] End Date/Time Encounter Type Admission Type Attending [facility] Care Department Encounter ID Discharge Date Discharge Status Discharge Condition Discharge Reason Percent Goals Met 2023-10-15 00:00:00 2024-02-07 00:00:00 Outpatient RECERTIFIC ATION ZAHEER SANDERS [facility] [id number] 2024-02-07 00:00:00 DISCHARGE TO HOME OR SELF CARE INDEPENDEN T IN THE HOME GOALS MET ( ONLY) 74.36
[2024-04-16 20:07] LABS: Influenza A PCR NEGATIVE (Negative); Influenza B PCR NEGATIVE (Negative); Resp Syncy Virus RNA Qual PCR NEGATIVE (Negative); SARS COV2 PCR INHOUSE NEGATIVE (Negative)
[2024-04-16 20:43] VITALS: BP 103/69; PULSE 68; RESP 20; TEMP 37.3; O2SAT 98
[2024-04-16 22:40] VITALS: BP 98/70; PULSE 72; RESP 16; TEMP 36.9; O2SAT 99
[2024-04-16 22:56] LABS: Appearance Urine Clear; Color Urine Yellow; Glucose Urine UA 100 mg/dL (Negative); Leukocyte Esterase Urine Negative (Negative); Nitrite Urine Negative (Negative); PH 5.5 (5.0-9.0); Specific Gravity - Urine 1.015 (1.005-1.025); Urine Blood Negative (Negative); Urine Ketones Negative (Negative); Urine Protein Negative (Neg-Trace)
[2024-04-17 00:16] VITALS: BP 112/61; PULSE 74; RESP 21; TEMP 36.8; O2SAT 96
[2024-04-17 01:07] VITALS: BP 112/61; PULSE 74; RESP 21; TEMP 36.8; O2SAT 96
== END 2024-04-17 01:08 | disposition home or self-care (01) ==
PROVIDERS: Registered Nurse Emergency; Emergency Provider Emergency Medicine; PCP Internal Medicine
DX: K59.00 Constipation, unspecified (principal); R06.02 Shortness of breath; Z03.818 Encounter for observation for suspected exposure to other biological agents ruled out; E11.9 Type 2 diabetes mellitus without complications; I10 Essential (primary) hypertension; E78.5 Hyperlipidemia, unspecified; K74.60 Unspecified cirrhosis of liver; J44.9 Chronic obstructive pulmonary disease, unspecified; Z99.81 Dependence on supplemental oxygen; Z79.4 Long term (current) use of insulin; Z87.891 Personal history of nicotine dependence
CPT/HCPCS: 0241U; 74018; 80053; 81003; 83690; 85025; 85610; 99283; 99284

== ENCOUNTER → 2024-04-16 23:10 | Outpatient (BNV) | payer MEDICARE, SELFPAY | PROVIDERS: Emergency Provider Emergency Medicine; PCP Internal Medicine; Visit Provider Radiology Neuroradiology | DX: K56.41 Fecal impaction (principal) | CPT/HCPCS: 74018 ==

== ENCOUNTER 2024-05-25 16:57 | Inpatient (IN) | payer MEDICARE, SELFPAY ==
--- NOTE | ~2024-05-25 | CT_ITS ---
EXAMINATION: CT ABDOMEN PELVIS WITH IV CONTRAST HISTORY: abd pain, severe constipation, positive Cologuard COMPARISON: Comparison is made with the prior examination dated 08/04/2022. TECHNIQUE: CT scan of the abdomen and pelvis was performed following administration of 85 mL Omnipaque 350 using standard departmental protocol. Coronal and sagittal reformatted images were generated and reviewed. The patient received oral contrast material. This CT exam was performed with one or more of the following dose reduction techniques: automated exposure control, adjustment of the mA and/or kV according to patient size, use of iterative reconstruction technique. DLP: 500 mGy-cm FINDINGS: LOWER CHEST: The visualized lung bases are clear. There is no pleural effusion. CARDIOVASCULATURE: The heart is normal in size. There is no pericardial effusion. LIVER: The liver is normal in size and contour. No liver mass is identified. The hepatic and portal veins are patent. GALLBLADDER / BILE DUCTS: The gallbladder is markedly contracted. Again seen is trace pneumobilia consistent with prior sphincterotomy. SPLEEN: The spleen is normal in size. No focal splenic lesion is identified. PANCREAS: The pancreas is unremarkable in appearance. ADRENAL GLANDS: Within normal limits. KIDNEYS/RETROPERITONEUM: There is a 9 mm nonobstructing calculus at the upper pole of the right kidney. There is no hydronephrosis. No renal masses are identified. LYMPH NODES: No abdominal or pelvic lymphadenopathy. VASCULATURE: The abdominal aorta demonstrates atherosclerotic calcification, but is normal in caliber. MESENTERY/PERITONEUM: No free fluid. No masses. There is no free intraperitoneal gas. STOMACH: The stomach is collapsed, limiting evaluation. SMALL BOWEL: The small bowel is normal in caliber. COLON: There is a very large amount of stool throughout the colon. There is a mild shouldered appearance involving the sigmoid colon (series 3, image 63 and series 8, image 75). Colonic masses cannot be excluded on the basis of this examination. APPENDIX: Normal. URINARY BLADDER/PELVIC ORGANS: The urinary bladder is collapsed, limiting evaluation. The prostate is normal in size. BONES / SOFT TISSUES: There is degenerative disc disease of the spine. Again seen is a mild anterior compression deformity of L1. There is grade I spondylolisthesis of L4 on L5. CT/CT abdomen pelvis w IV con IMPRESSION: Very large amount of stool throughout the colon. Mild shouldered appearance involving the sigmoid colon. Colonic masses cannot be excluded on the basis of this examination. Colonoscopy is recommended. Electronically signed by: Finn Shea MD 06/01/2024 04:03 PM [facility]
--- NOTE | ~2024-05-25 | XR_ITS ---
CLINICAL HISTORY: constipation Abdominal radiographs Comparison: 04/16/24 Findings: There is a nonobstructive bowel gas pattern. Stool quantity is moderately increased. No pneumoperitoneum or pneumatosis. Vascular calcifications. No acute osseous or soft tissue abnormality. Impression: Moderately increased stool quantity is consistent with the given history of constipation. This document has been electronically signed by: Lillie Dominguez MD on 05/25/2024 18:54:06
--- NOTE | ~2024-05-25 | XR_ITS ---
CLINICAL HISTORY: sob Chest Radiograph Comparison: CR/SR - XR CHEST 1V - 03/14/23 11:58 EST CR/SR - XR CHEST 1V - 02/18/23 21:14 EST CR/SR - XR CHEST 1V - 08/28/22 16:35 EDT CR/SR - XR CHEST 1V - 08/16/22 21:15 EDT Findings: No cardiomegaly. Normal mediastinal contours. No pneumothorax. Unchanged left apical opacity with associated paramediastinal linear opacity which is likely scarring. No pleural effusion. Normal upper abdomen. No acute fracture. Impression: No acute findings. Unchanged left apical opacity and associated scarring. This document has been electronically signed by: Lillie Dominguez MD on 05/25/2024 18:55:18
[2024-05-25 17:03] VITALS: BP 137/75; PULSE 72; O2SAT 50
--- NOTE | 2024-05-25 17:04 | PC.NURSE ---
[place] from home where pt called EMS for SOB, ? COPD exacerbation. pt on 3L NC at baseline. when fire got on scene found pt to be cyanotic with purse lip breathing, saO2 was 50% on his 3L. EMS gave a duoneb, albuterol, 1 in nitropaste for elevated BP and 125 mg solumedrol. 22G placed L hand. pt O2 improved on NRB 15L to 96%
[2024-05-25 17:10] VITALS: BP 122/75; PULSE 81; RESP 24; TEMP 36.8; O2SAT 97; BMI 30.8
[2024-05-25 17:16] VITALS: BMI 33.6
--- NOTE | 2024-05-25 17:19 | ECG_ITS ---
Test Reason : SOB Blood Pressure : */* mmHG Vent. Rate : 85 BPM Atrial Rate : 85 BPM P-R Int : 170 ms QRS Dur : 90 ms QT Int : 368 ms P-R-T Axes : 34 78 72 degrees QTcB Int : 437 ms Normal sinus rhythm Normal ECG When compared with ECG of 14-Mar-2023 11:47, No significant change was found Referred By: Sarahi Ornelas Electronically Signed By: YOCASTA GIL
--- NOTE | 2024-05-25 17:21 | ED_ITS ---
HPI - SOB/Dyspnea General Chief Complaint: Dyspnea Stated Complaint: copd exacerbation.o2 was 48-50.now 97% on NRB Time Seen by Provider: 05/25/24 17:03 Source: patient and EMS Mode of arrival: EMS Limitations: no limitations History of Present Illness ED Provider: Dr. Sarahi Ornelas HPI Narrative: Patient comes to the emergency room via ambulance from home. According to the patient, for about a month he has been having shortness of breath. Patient known to have history of chronic lung disease, on 3 L at home. According to EMS, the patient was short of breath when they arrived to his house, oxygen saturation supposedly in the 50s. Patient received per EMS a DuoNeb, Solu- Medrol, and for unclear reasons at this time, seems that patient received nitro paste. Patient states that he never had chest pain. At this time, patient states that he is feeling a bit more comfortable breathing. However, he still feels pretty tight. Patient denies any fever or chills, complaining of mild abdominal pain, states that he has not moved his bowels in about 3 weeks. Related Data Home Medications ?Medication ?Instructions ?Recorded ?Confirmed budesonide-formoterol HFA 160 2 puff inhalation DAILY 03/14/21 03/23/24 mcg-4.5 mcg/actuation aerosol inhaler (Symbicort) calcium 600 mg (as 1 tab PO DAILY 08/04/21 03/23/24 carbonate)-vitamin D3 10 mcg (400 unit) tablet Oxygen Home Use 06/14/22 03/23/24 Previous Rx's ?Medication ?Instructions ?Recorded blood-glucose meter (FreeStyle #1 ea 01/23/22 Lite Meter kit) glipizide 5 mg tablet 5 mg PO BID #270 tabs 09/10/23 escitalopram oxalate 20 mg tablet 20 mg PO DAILY #90 tabs 09/16/23 metformin 1,000 mg tablet 1,000 mg PO BID #180 tabs 09/16/23 albuterol sulfate 90 mcg/actuation 2 puff PO Q4H PRN Shortness Of 10/26/23 aerosol inhaler Breath Or Wheezing #8.5 grams albuterol sulfate 90 mcg/actuation 2 puff inhalation Q4-6H PRN 10/31/23 aerosol inhaler (Ventolin HFA) shortness of breath or wheezing #8.5 grams atorvastatin 80 mg tablet 80 mg PO BEDTIME #90 tabs 12/04/23 ipratropium 0.5 mg-albuterol 3 mg 3 ml inhalation Q6H PRN wheezing 01/01/24 (2.5 mg base)/3 mL nebulization #180 mL soln Trulicity 0.75 mg/0.5 mL 0.75 mg (0.5 mL) subcut QWEEK 30 01/07/24 subcutaneous pen injector days #2 mL (dulaglutide) metoprolol tartrate 25 mg tablet 25 mg PO BID #180 tabs 01/07/24 lancets 28 gauge (FreeStyle #100 ea 01/31/24 Lancets) omeprazole 20 mg capsule,delayed 20 mg PO DAILY@0630 #30 caps 02/06/24 release bisacodyl 5 mg tablet,delayed 10 mg (2 x 5 mg) PO ONCE prep for 02/27/24 release (Dulcolax (bisacodyl)) CT colonography 5 days #10 tabs polyethylene glycol 3350 17 17 g PO DAILY Prep for CT 02/27/24 gram/dose oral powder (Miralax) colonography 1 day #238 grams blood sugar diagnostic (FreeStyle #50 ea 03/07/24 Lite Strips) peg 3350-electrolytes 236 240 ml PO Q10M PRN constipation 04/17/24 gram-22.74 gram-6.74 gram-5.86 #4,000 mL gram solution (GaviLyte-G) lorazepam 1 mg tablet (Ativan) 0.5 mg (1/2 x 1 mg) PO BID PRN 05/18/24 anxiety #30 tabs Allergies Allergy/AdvReac Type Severity Reaction Status Date / Time fluticasone furoate Allergy Intermediate Rash Verified 05/25/24 17:13 [From Trelegy Ellipta] vilanterol Allergy Intermediate Rash Verified 05/25/24 17:13 [From Trelegy Ellipta] umeclidinium Allergy Unknown Hives Verified 05/25/24 17:13 [Incruse Ellipta] furosemide [From Lasix] AdvReac Intermediate Hallucinati Verified 05/25/24 17:13 ons Review of Systems 2 Review of Systems: Constitutional : No Weight loss, No Fever, No Chills, No Night Sweats, No Fatigue, No Malaise ENT/Mouth : No Hearing loss, No Ear Pain, No Nasal Congestion, No Sinus Pain, No Hoarseness, No sore throat, No Rhinorrhea, No Swallowing Difficulty Eyes: No Eye Pain, No Swelling, No Redness, No Foreign Body, No Discharge, No Vision Changes Cardiovascular : No Chest Pain, denies orthopnea, no edema no palpitations Respiratory : Complaining of chronic cough at baseline, complaining of wheezing and chest tightness with no pain, shortness of breath. Gastrointestinal : No Nausea, No Vomiting, No Diarrhea, complaining of 3 weeks of Constipation, No abdominal Pain, No Hematochezia, No Melena Genitourinary : no irregular bleeding, No Dysuria, No Urinary Frequency, No Hematuria, No Urinary Incontinence, No Urgency, No Flank Pain, No Urinary Flow Changes, No Hesitancy Musculoskeletal : No joint pain, No Myalgias, No Joint Swelling Skin : No Skin Lesions, No rash Neuro : No Weakness, No Numbness, No Paresthesias, No Loss of Consciousness, No Dizziness, No Headache Psych : No Anxiety/Panic, No Depression, No SI/HI/AH/VH, No Social Issues, Heme/Lymph: No Bruising, No Bleeding,No Lymphadenopathy Endocrine : No Polyuria, No Polydipsia, No Temperature Intolerance PMFSH Past Medical History Medical History Positive colorectal cancer screening using Cologuard test Respiratory failure with hypoxia and hypercapnia Bilateral carotid artery disease CAD (coronary artery disease) Anxiety and depression Constipation Anemia Chronic respiratory failure with hypoxia and hypercapnia Radiation fibrosis of lung Acute on chronic respiratory failure with hypoxia and hypercapnia HTN (hypertension) Dyslipidemia History of pneumonia Bacteremia due to Enterococcus COPD, severe Diabetes mellitus with hyperglycemia, without long-term current use of insulin Urinary incontinence Asthma Lung cancer Skin cancer Surgical History Hx of heart artery stent History of esophagogastroduodenoscopy (EGD) Hx of colonoscopy Family History Family History Father Medical history non-contributory Mother Medical history non-contributory Unknown family medical history Lung collapse Brother No problems noted. Brother No problems noted. Son Substance use disorder Son No problems noted. Daughter No problems noted. Sister No problems noted. Sister No problems noted. Sister No problems noted. Sister No problems noted. Other HTN (hypertension) Social History Social History Household Members: Spouse Household Members Other:: grandson Housing: Apartment Are you a primary wound care center consultant to a significant other at home: No Do you presently have visiting nurse or other home services: No Alcohol intake: never Patient Tobacco Use Status: Former Tobacco user Tobacco use type: Cigarette e-Cigarette/Vaping Use: Never Used Advance Directives: Yes Advance Directives on File: Yes Advance Directives Date on File: 06/08/22 service: No Current occupational status: retired Cognitive needs: No Hearing needs: No Vision needs: No Physical Exam 2 Vital Signs: Vital Signs: Last Vital Signs Temp 98.0 F 05/26/24 04:15 Pulse 83 05/26/24 04:15 Resp 21 H 05/26/24 05:39 BP 124/61 05/26/24 04:15 Pulse Ox 97 05/26/24 04:15 O2 Del Method Nasal Cannula 05/26/24 04:15 O2 Flow Rate 3 05/26/24 04:15 Oxygen Flow Rate 3 05/25/24 17:10 BMI result Body Mass Index 33.6 Const: Other: Appearance: Alert. Oriented X3. No acute distress. Eyes: Pupils equal, round and reactive to light. ENT: Pharynx normal. Neck: Normal inspection. Neck supple. No lymph nodes noted. No crepitus CVS: Normal heart rate and rhythm. Pulses normal. Normal S1 and S2 Respiratory: No respiratory distress. Bilateral wheezing, decreased air movement, no rales or crackles Abdomen: Soft and nontender. No rigidity. [id number] distention. Skin: Skin warm and dry. Normal skin color. Normal skin turgor. Extremities: +1 pitting edema. No Lacerations. No Rash Neuro: Oriented X 3. No motor deficit. No sensory deficit. Moving all extremities. No slurred speech. CN 2 through 12 grossly intact Psych: calm, cooperative, normal affect Course Course Course Narrative: On arrival, patient receiving IV fluids and antibiotics, patient known to have chronic lung disease. Patient receiving IV fluids based on ideal weight of 56 kg, patient is obese, also patient receiving ceftriaxone and azithromycin. All of patient's labs and imaging pending. Patient arrived with a patch of nitro paste on, blood pressure in the 120s, the nitro paste was removed. Patient has no chest pain or signs of fluid overload. Medications Administered Discontinued Medications Generic Name Dose Route Start Last Admin Trade Name Lonnyq PRN Reason Stop Dose Admin Albuterol Sulfate 5 mg/ 7.5 mg 05/25/24 17:23 05/25/24 17:24 Albuterol Sulfate 2.5 mg INHALE 05/25/24 17:24 7.5 mg ONCE ONE Administration Albuterol/Ipratropium 3 ml 05/26/24 05:40 05/26/24 05:42 Albuterol/Iprat 2.5/0.5mg 3 Ml Ampul.Neb INHALE 05/26/24 05:41 3 ml ONCE ONE Administration Ceftriaxone Sodium 1 gm 05/25/24 17:13 05/25/24 18:29 Ceftriaxone Sodium 1 Gm Vial IVPUSH 05/25/24 17:14 1 gm ONCE ONE Administration Sodium Chloride 2,000 mls @ 999 mls/hr 05/25/24 17:13 05/25/24 20:58 Ns IVCONT 05/25/24 19:13 Infused .Q2H1M ONE Infusion Azithromycin 500 mg/ Sodium 250 mls @ 125 mls/hr 05/25/24 17:13 05/25/24 20:49 Chloride IV 05/25/24 19:12 Infused ONCE ONE Infusion Magnesium Sulfate 2 gm in 50 mls @ 25 mls/hr 05/25/24 17:18 05/25/24 18:10 Magnesium Sulfate/H2o IV 05/25/24 19:17 Infused ONCE ONE Infusion Medical Decision Making Medical Decision Making MDM Narrative: No significant abnormality in patient's hematology and chemistry. RA, patient's blood gases show a patient's 7.27, pCO2 of 100, bicarb 47. We will put the patient on CPAP for a few hours and then re-evaluate After nebulization treatments, Solu-Medrol and magnesium, patient was ambulated with 3 L of oxygen which she uses at baseline, O2 dropped to the high 70s/low 80s. This time, 20:35, patient's blood pressure stable, no episodes of hypotension, no fever, no tachycardia, normal white blood cell count. Patient was already covered with IV antibiotics and antibiotics. Patient remains on CPAP. We have tried weaning the patient off. Patient states that he feels completely well, breathing comfortably. However, patient's venous blood gases and at making a huge improvement. At this time, we do not have an ICU bed. Patient is making slow improvements. It is likely done in a few hours patient will be able to go to the floor. I discussed the above-mentioned with my colleague Dr. Gamez. We will keep the patient in the ED for the next 4 hours approximately, repeat blood gases in 4 hours, and then patient may be able to go to the floor. Clinically, patient is completely awake, alert and oriented x3, breathing comfortably Differential Diagnosis Differential Diagnoses: The differential diagnosis associated with the presentation includes (Chronic lung disease, asthma, pneumonia, viral respiratory illness) Admission/Observation Consideration of admission/observation: Escalation of care including admission/observation considered Consult Healthcare Provider Management of the patient was discussed with: Hospitalist Lab Data MDM Lab Attestation statement: I reviewed the patient's lab results. 05/25/24 18:02 05/25/24 18:02 Labs: Lab Results 05/25/24 05/25/24 05/25/24 Range/Units 18:02 18:10 20:04 WBC 5.7 (4.8-10.8) X10*3/uL RBC 3.84 L (4.60-5.80) X10*6/uL Hgb 11.1 L (14.0-18.0) g/dl Hct 36.2 L (42.0-52.0) % MCV 94.3 (80.0-98.0) fL MCH 28.9 (27.0-33.0) pg MCHC 30.7 L (31.0-36.0) g/dl RDW 13.6 (11.0-16.0) % Plt Count 184 (160-400) X10*3/uL MPV 10.1 (9.4-12.4) fL Immature Gran % (Auto) 0.5 H (0.0-0.4) % Neut % (Auto) 70.9 (45-73) % Lymph % (Auto) 18.7 L (20-40) % [place] % (Auto) 5.5 (2-11) % Eos % (Auto) 3.3 (0-4) % Baso % (Auto) 1.1 (0-2) % Lymph # (Auto) 1.1 L (1.2-4.9) X10*3/uL [place] # (Auto) 0.3 (0.1-1.2) X10*3/uL Eos # (Auto) 0.2 (0.0-0.4) X10*3/uL Baso # (Auto) 0.1 (0.0-0.2) X10*3/uL Abs Immat Gran (auto) 0.03 (0.00-0.03) X10*3/uL Absolute Neuts (auto) 4.0 (2.0-8.3) x10*3/uL Absolute Nucleated RBC 0.000 (0.0-0.012) X10*3/uL Nucleated RBC % (auto) 0.0 (0.0-0.2) /100WBC PT 10.4 L (10.9-12.4) SEC INR 0.9 (0.9-1.1) VBG pH 7.27 L (7.32-7.43) VBG pCO2 100 mmHg VBG pO2 80 mmHg VBG HCO3 47 H (22-26) mmol/L VBG O2 Saturation 95.0 % VBG Base Excess 15.7 mmol/L Sodium 139 (135-145) mmol/L Potassium 4.3 (3.3-5.1) mmol/L Chloride 94 L (96-108) mmol/L Carbon Dioxide 39 H (22-29) mmol/L Anion Gap 10 L (12-20) BUN 11 (9-16) mg/dL Creatinine 0.82 (0.5-1.4) mg/dL Estim Creat Clear Calc 85.0 Estimated GFR > 60 Random Glucose 258 H (60-115) mg/dL Lactic Acid 1.4 (0.5-2.0) mmol/L Calcium 8.9 (8.4-10.2) mg/dL Magnesium 3.3 H (1.6-2.6) mg/dL Total Bilirubin 0.3 (0.0-1.0) mg/dL Direct Bilirubin 0.1 (0.0-0.5) mg/dL AST 22 (5-37) U/L ALT 14 (0-40) U/L Alkaline Phosphatase 107 (39-117) U/L Troponin I High Sens < 2.7 (<3.5-35.0) ng/L B-Natriuretic Peptide 48 (<100) pg/mL Total Protein 7.6 (6.5-8.0) g/dL Albumin 4.1 (3.5-5.0) g/dL Lipase 35 (8-78) U/L Urine Color Yellow Urine Appearance Clear Urine pH 6.0 (5.0-9.0) Ur Specific [place] 1.015 (1.005-1.025) Urine Protein Negative (Neg-Trace) mg/dL Urine Glucose (UA) >=1000 H (Negative) mg/dL Urine Ketones Negative (Negative) mg/dL Urine Blood Negative (Negative) Urine Nitrite Negative (Negative) Ur Leukocyte Esterase Negative (Negative) Urine RBC 0-2 (0-2) /HPF Urine WBC 0-5 (0-5) /HPF Ur Squamous Epith Cells 0-2 (0-2) /HPF Urine Bacteria None Seen (None Seen) Hyaline Casts 0-2 (0-2) /LPF Influenza Type A (PCR) NEGATIVE (Negative) Influenza Type B (PCR) NEGATIVE (Negative) RSV RNA Qual (PCR) NEGATIVE (Negative) SARS-CoV-2 RNA (RT-PCR) NEGATIVE (Negative) 05/26/24 05/26/24 Range/Units 01:07 03:59 WBC (4.8-10.8) X10*3/uL RBC (4.60-5.80) X10*6/uL Hgb (14.0-18.0) g/dl Hct (42.0-52.0) % MCV (80.0-98.0) fL MCH (27.0-33.0) pg MCHC (31.0-36.0) g/dl RDW (11.0-16.0) % Plt Count (160-400) X10*3/uL MPV (9.4-12.4) fL Immature Gran % (Auto) (0.0-0.4) % Neut % (Auto) (45-73) % Lymph % (Auto) (20-40) % [place] % (Auto) (2-11) % Eos % (Auto) (0-4) % Baso % (Auto) (0-2) % Lymph # (Auto) (1.2-4.9) X10*3/uL [place] # (Auto) (0.1-1.2) X10*3/uL Eos # (Auto) (0.0-0.4) X10*3/uL Baso # (Auto) (0.0-0.2) X10*3/uL Abs Immat Gran (auto) (0.00-0.03) X10*3/uL Absolute Neuts (auto) (2.0-8.3) x10*3/uL Absolute Nucleated RBC (0.0-0.012) X10*3/uL Nucleated RBC % (auto) (0.0-0.2) /100WBC PT (10.9-12.4) SEC INR (0.9-1.1) VBG pH 7.26 L 7.28 L (7.32-7.43) VBG pCO2 91 86 mmHg VBG pO2 42 32 mmHg VBG HCO3 41 H 40 H (22-26) mmol/L VBG O2 Saturation 62.0 45.0 % VBG Base Excess 10.6 10.7 mmol/L Sodium (135-145) mmol/L Potassium (3.3-5.1) mmol/L Chloride (96-108) mmol/L Carbon Dioxide (22-29) mmol/L Anion Gap (12-20) BUN (9-16) mg/dL Creatinine (0.5-1.4) mg/dL Estim Creat Clear Calc Estimated GFR Random Glucose (60-115) mg/dL Lactic Acid (0.5-2.0) mmol/L Calcium (8.4-10.2) mg/dL Magnesium (1.6-2.6) mg/dL Total Bilirubin (0.0-1.0) mg/dL Direct Bilirubin (0.0-0.5) mg/dL AST (5-37) U/L ALT (0-40) U/L Alkaline Phosphatase (39-117) U/L Troponin I High Sens (<3.5-35.0) ng/L B-Natriuretic Peptide (<100) pg/mL Total Protein (6.5-8.0) g/dL Albumin (3.5-5.0) g/dL Lipase (8-78) U/L Urine Color Urine Appearance Urine pH (5.0-9.0) Ur Specific [place] (1.005-1.025) Urine Protein (Neg-Trace) mg/dL Urine Glucose (UA) (Negative) mg/dL Urine Ketones (Negative) mg/dL Urine Blood (Negative) Urine Nitrite (Negative) Ur Leukocyte Esterase (Negative) Urine RBC (0-2) /HPF Urine WBC (0-5) /HPF Ur Squamous Epith Cells (0-2) /HPF Urine Bacteria (None Seen) Hyaline Casts (0-2) /LPF Influenza Type A (PCR) (Negative) Influenza Type B (PCR) (Negative) RSV RNA Qual (PCR) (Negative) SARS-CoV-2 RNA (RT-PCR) (Negative) Independent Interpretation I performed an independent interpretation of an: EKG (Interpretation of EKG: Normal sinus rhythm, heart rate 85, no ST segment depression or elevation, no T- wave inversion, QTC 437) and Plain X-Ray Radiology Impression Discussion of test interpretation with radiology: I have reviewed the radiologist's reading. Radiologist Impression: No cardiomegaly. Normal mediastinal contours. No pneumothorax. Unchanged left apical opacity with associated paramediastinal linear opacity which is likely scarring. No pleural effusion. Normal upper abdomen. No acute fracture. Impression: No acute findings. Unchanged left apical opacity and associated scarring. Critical Care Time Critical Care Time Critical Care Time: Yes Total Critical Care Time: 90 Attestation: I have personally provided critical care time. Time includes review of lab data, radiology results, discussion with consultants, and monitoring for potential decompensation. Intervention performed as documented. Discharge Plan Discharge Clinical Impression: Chronic lung disease, Acute and chronic respiratory failure Patient Disposition: Still a Patient Prescriptions: No Action (DME) blood-glucose meter [FreeStyle Lite Meter] Kit See Rx Instructions .Route Qty: 1 0RF Rx Instructions: As directed glipizide 5 mg tablet 5 mg PO BID Qty: 270 1RF albuterol sulfate 90 mcg/actuation HFA aerosol inhaler 2 puff PO Q4H PRN (Reason: Shortness Of Breath Or Wheezing) Qty: 8.5 2RF albuterol sulfate [Ventolin HFA] 90 mcg/actuation HFA aerosol inhaler 2 puff inhalation Q4-6H PRN (Reason: shortness of breath or wheezing) Qty: 8.5 2RF atorvastatin 80 mg tablet 80 mg PO BEDTIME Qty: 90 1RF ipratropium-albuterol 0.5 mg-3 mg(2.5 mg base)/3 mL solution for nebulization 3 ml inhalation Q6H PRN (Reason: wheezing) Qty: 180 2RF metoprolol tartrate 25 mg tablet 25 mg PO BID Qty: 180 1RF (DME) lancets [FreeStyle Lancets] 28 gauge misc See Rx Instructions .Route Qty: 100 1RF Rx Instructions: Test blood sugar twice omeprazole 20 mg capsule,delayed release(DR/EC) 20 mg PO DAILY@0630 Qty: 30 1RF (DME) FreeStyle Lite Strips Strip See Rx Instructions .Route Qty: 50 7RF Rx Instructions: check fasting glucose once a day AC lorazepam [Ativan] 1 mg tablet 0.5 mg PO BID PRN (Reason: anxiety) Qty: 30 0RF Rx Instructions: Patient may request partial fill budesonide-formoterol [Symbicort] 160-4.5 mcg/actuation Hfa Aerosol Inhaler 2 puff INHALATION DAILY calcium carbonate-vitamin D3 600 mg-10 mcg (400 unit) tablet 1 tab PO DAILY peg 3350-electrolytes [GaviLyte-G] 236-22.74-6.74 -5.86 gram recon soln 240 ml PO Q10M PRN (Reason: constipation) Qty: 4000 0RF Rx Instructions: until you have 3-4 bowel movements escitalopram oxalate 20 mg tablet 20 mg PO DAILY Qty: 90 3RF metformin 1,000 mg tablet 1,000 mg PO BID Qty: 180 1RF (DME) Oxygen Home Use Kit See Rx Instructions .Route Rx Instructions: As directed Trulicity 0.75 mg/0.5 mL pen injector 0.75 mg subcut QWEEK 30 Days Qty: 2 5RF bisacodyl [Dulcolax (bisacodyl)] 5 mg tablet,delayed release (DR/EC) 10 mg PO ONCE 5 Days Qty: 10 0RF Rx Instructions: Take 2 tablets at 12 pm daily starting [address] scan polyethylene glycol 3350 [Miralax] 17 gram/dose powder 17 g PO DAILY 1 Days Qty: 238 0RF Rx Instructions: Mix Miralax with 64 oz(8 cups) of Crystal light. Take 2 tablets of Dulcolax qt 12 pm. Wait to have your 1st bowel movement, then begin drinking Miralax. Drink a glass of Miralax every 10-15 minutes until you are finished. You will drink at least another 4 cups of clear liquid of your choice over the next 2 hours. Please drink as many clear liquids as possible You may have clear liquids up to four hours before your CT colonography Print Language: Ukrainian
[2024-05-25] MEDS: Albuterol Sulfate 5 MG, Albuterol Sulfate (0.083%) 2.5 MG 7.5 MG INHALE (17:24)
[2024-05-25] MEDS: Magnesium Sulfate/H2O 2 GM/50 ML PIGGYBACK IV (17:37)
[2024-05-25] MEDS: 0.9 % Sodium Chloride 2,000 ML 999 ML IVCONT (17:37)
[2024-05-25 18:11] LABS: MANUAL DIFF FLAG NO
[2024-05-25 18:15] LABS: Basophils Absolute Auto 0.1 X10*3/uL (0.0-0.2); Basophils Percent Auto 1.1 % (0-2); Eosinophils Absolute Auto 0.2 X10*3/uL (0.0-0.4); Eosinophils Percent Auto 3.3 % (0-4); Hematocrit 36.2 % (42.0-52.0); Hemoglobin 11.1 g/dl (14.0-18.0); Imm Gran Abs Auto 0.03 X10*3/uL (0.00-0.03); Imm Gran Pct Auto 0.5 % (0.0-0.4); Lymphocytes Absolute Auto 1.1 X10*3/uL (1.2-4.9); Lymphocytes Percent Auto 18.7 % (20-40); Mean Corpuscular HGB Conc 30.7 g/dl (31.0-36.0); Mean Corpuscular Hemoglobin 28.9 pg (27.0-33.0); Mean Corpuscular Volume 94.3 fL (80.0-98.0); Mean Platelet Volume 10.1 fL (9.4-12.4); Monocytes Absolute Auto 0.3 X10*3/uL (0.1-1.2); Monocytes Percent Auto 5.5 % (2-11); Neutrophils Percent Auto 70.9 % (45-73); Platelet Count 184 X10*3/uL (160-400); Red Blood Count 3.84 X10*6/uL (4.60-5.80); Red Cell Distribution Width 13.6 % (11.0-16.0); White Blood Count 5.7 X10*3/uL (4.8-10.8)
[2024-05-25 18:20] LABS: INTERNATIONAL NORM RATIO 0.9 (0.9-1.1); Prothrombin Time 10.4 SEC (10.9-12.4)
[2024-05-25 18:29] LABS: Lactic Acid 1.4 mmol/L (0.5-2.0)
[2024-05-25 18:29] LABS: VBG Base Excess 15.7 mmol/L; VBG HCO3 47 mmol/L (22-26); VBG pCO2 100 mmHg; VBG pH 7.27 (7.32-7.43); VBG pO2 80 mmHg
[2024-05-25] MEDS: cefTRIAXone sodium 1 GM VIAL IVPUSH (18:29)
[2024-05-25 18:30] LABS: Venous Blood Gas Refer to POC result
[2024-05-25] MEDS: Azithromycin 500 MG in 0.9 % Sodium Chloride 250 ML 125 MG IV (18:30)
[2024-05-25 18:31] LABS: Alanine Aminotransferase 14 U/L (0-40); Albumin Level 4.1 g/dL (3.5-5.0); Alkaline Phosphatase 107 U/L (39-117); Anion Gap 10 (12-20); Aspartate Amino Transferase 22 U/L (5-37); Bilirubin Direct 0.1 mg/dL (0.0-0.5); Bilirubin Total 0.3 mg/dL (0.0-1.0); Blood Urea Nitrogen 11 mg/dL (9-16); Calcium 8.9 mg/dL (8.4-10.2); Carbon Dioxide 39 mmol/L (22-29); Chloride 94 mmol/L (96-108); Estimated Glomerular Filt Rate > 60; Glucose Random 258 mg/dL (60-115); Lipase 35 U/L (8-78); Magnesium 3.3 mg/dL (1.6-2.6); Potassium 4.3 mmol/L (3.3-5.1); Sodium 139 mmol/L (135-145); Total Protein 7.6 g/dL (6.5-8.0)
--- NOTE | 2024-05-25 18:35 | PC.NURSE ---
pt medicated by float rn
[2024-05-25 18:38] LABS: Troponin-I High Sensitivity < 2.7 ng/L (<3.5-35.0)
[2024-05-25 18:39] VITALS: BP 120/66; PULSE 89; RESP 20; TEMP 37.1; O2SAT 93
[2024-05-25 18:47] LABS: B Type Natriuretic Peptide 48 pg/mL (<100)
[2024-05-25 18:52] LABS: Influenza A PCR NEGATIVE (Negative); Influenza B PCR NEGATIVE (Negative); Resp Syncy Virus RNA Qual PCR NEGATIVE (Negative); SARS COV2 PCR INHOUSE NEGATIVE (Negative)
[2024-05-25 20:26] LABS: Appearance Urine Clear; Color Urine Yellow; Glucose Urine UA >=1000 mg/dL (Negative); Leukocyte Esterase Urine Negative (Negative); Nitrite Urine Negative (Negative); Specific Gravity - Urine 1.015 (1.005-1.025); UMIC TRIGGER UACC YES; Urine Blood Negative (Negative); Urine Ketones Negative (Negative); Urine Protein Negative (Neg-Trace)
[2024-05-25 20:41] LABS: Bacteria Urine None Seen (None Seen); Hyaline Casts Urine 0-2 /LPF (0-2); RBC Urine 0-2 /HPF (0-2); Squamous Epithelial Cell Urine 0-2 /HPF (0-2); WBC Urine 0-5 /HPF (0-5)
[2024-05-25 21:00] VITALS: PULSE 85; RESP 18; O2SAT 96
[2024-05-25 21:01] VITALS: BP 107/55; PULSE 80; RESP 20; O2SAT 97
--- NOTE | 2024-05-25 21:18 | PC.NURSE ---
Pt placed on bibap by PT.
[2024-05-25 21:22] VITALS: BP 105/54; PULSE 79; RESP 20; O2SAT 97
[2024-05-26] VITALS (16 sets, daily range): BP systolic 105–132; BP diastolic 56–71; PULSE 74–105; RESP 14–21; TEMP 36.5–36.8; O2SAT 72–99
[2024-05-26 01:10] LABS: Venous Blood Gas Refer to POC result
[2024-05-26 01:13] LABS: VBG Base Excess 10.6 mmol/L; VBG HCO3 41 mmol/L (22-26); VBG pCO2 91 mmHg; VBG pH 7.26 (7.32-7.43); VBG pO2 42 mmHg
[2024-05-26 04:03] LABS: Venous Blood Gas Refer to POC result
[2024-05-26 04:05] LABS: VBG Base Excess 10.7 mmol/L; VBG HCO3 40 mmol/L (22-26); VBG pCO2 86 mmHg; VBG pH 7.28 (7.32-7.43); VBG pO2 32 mmHg
[2024-05-26] MEDS: Albuterol/Iprat 2.5/0.5MG 3 ML AMPUL.NEB INHALE ×3 (05:42→21:15)
--- NOTE | 2024-05-26 07:50 | PC.NURSE ---
this RN resumed care of pt @ 0645. a&ox4. vss and up to date. pt took bipap mask off but educated on importance of wearing mask until repeat labs have improved. bipap placed back on pt w/o difficulty. settings remain the same as RT previously placed. otherwise vss and up to date. nsr on the awake overnight monitor. plan - repeat vbg @ 0930. patient notified/aware of plan of care. agreeable. sitting upright on the edge of the bed w/ no signs of respiratory distress noted at this time. respirations even/unlabored. plan of care ongoing. call buck placed within reach.
[2024-05-26 09:42] LABS: Venous Blood Gas Refer to POC result
[2024-05-26 09:42] LABS: VBG Base Excess 12.2 mmol/L; VBG HCO3 40 mmol/L (22-26); VBG pCO2 70 mmHg; VBG pH 7.36 (7.32-7.43); VBG pO2 56 mmHg
--- NOTE | 2024-05-26 10:13 | PC.NURSE ---
pt remains on bipap at this time. sitting on the edge of the bed to promote patent airway. pt tolerating bipap well. otherwise vss and up to date. 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 repeat vbg obtained/sent to the lab. plan of care ongoing. call buck placed within reach.
--- NOTE | 2024-05-26 11:10 | PC.NURSE ---
pt took off bipap and is refusing to place the mask back on at this time. pt educated on importance of keeping the mask on but still refusing. bipap machine silenced. pt placed back on 3L via NC (baseline) - maintaining SPO2 @ 97%. provider notified/aware. no sob/wob noted. respirations even/unlabored. plan of care ongoing.
--- NOTE | 2024-05-26 11:57 | P.HPHOSP_ITS ---
History of Present Illness Date of Service: 05/26/24 Attending physician on admission: Sadi Anguiano Chief Complaint: SOB Pt is a 74-year-old male with a PMH significant for?COPD, chronic hypoxemic and hypercarbic respiratory failure on 3L home O2, hx of left lung cancer s/p chemo and radiation 10 years ago, HLD, HTN, [id number]-[id number] type 2 diabetes, hepatic cirrhosis, hx of alcohol abuse disorder, LIBRADO on CPAP, and anxiety who presents to the ED with worsening SOB and difficulty breathing x2-3 days. Pt reports he has been having SOB and SALVADOR for the past month but kept putting off coming into the hospital worsening his PCP. SOB significantly worse in the past 3-4 days, until pt could no longer taken and called EMS. EMS apparently found pt satting in the 50s. In the ER pt was noted to have respiratory acidosis and was placed on BiPAP overnight and then transitioned to NC. Pt reports cough for the past few weeks occasionally productive of whitish sputum. No fever or chills. Also complains of constipation for the past weeks with small bowel movement 3-4 days ago. Denies nausea and vomiting. In the ED pt was tachypneic up to 24, BP soft at 105/54, and initially satting in the 50s according to EMS. Pt was placed on rescue BiPAP in the ED for a few hours before being transitioned back to NC. Labs were significant for initial VBG pH 7.27 with pCO2 100 and bicarb 47. Repeat after BiPAP at baseline with with pH 7.36, pCO2 70, and bicarb 40. Hyperglycemia 258. Otherwise grossly unremarkable and around baseline for pt. No leukocytosis. Stable normocytic anemia of 11.1/36.2. Significant electrolyte abnormalities. Renal function baseline. Hepatic function baseline. Troponin negative. BNP WNL. Tested negative for flu, RSV, and COVID. UA negative for UTI. CXR showed no acute findings. KUB x-ray showed moderately increased stool quantity consistent with constipation. EKG demonstrated normal sinus rhythm without evidence of significant ST elevations or depressions. Pt was treated with DuoNebs, IVF, Mag sulfate, azithromycin, and ceftriaxone. Pt will be admitted to the hospital for treatment and further evaluation of acute on chronic hypoxic and hypercapnic respiratory failure in the setting of acute COPD exacerbation. Review of Systems 2 Review of Systems: Negative except for that which is stated in the HPI PMFSH Medical History (Updated 05/26/24 @ 14:40 by DARRYL Villegas) Acute on chronic respiratory failure with hypoxia and hypercapnia Positive colorectal cancer screening using Cologuard test Respiratory failure with hypoxia and hypercapnia Bilateral carotid artery disease CAD (coronary artery disease) Anxiety and depression Constipation Anemia Chronic respiratory failure with hypoxia and hypercapnia Radiation fibrosis of lung HTN (hypertension) Dyslipidemia History of pneumonia Bacteremia due to Enterococcus COPD, severe Diabetes mellitus with hyperglycemia, without long-term current use of insulin Urinary incontinence Asthma Lung cancer Skin cancer Family History Father Medical history non-contributory Mother Medical history non-contributory Unknown family medical history Lung collapse Brother No problems noted. Brother No problems noted. Son Substance use disorder Son No problems noted. Daughter No problems noted. Sister No problems noted. Sister No problems noted. Sister No problems noted. Sister No problems noted. Other HTN (hypertension) Surgical History Hx of heart artery stent History of esophagogastroduodenoscopy (EGD) Hx of colonoscopy Social History Household Members: Spouse Household Members Other:: grandson Housing: Apartment Are you a primary cardiac care unit nurse to a significant other at home: No Do you presently have visiting nurse or other home services: No Alcohol intake: never Patient Tobacco Use Status: Former Tobacco user Tobacco use type: Cigarette e-Cigarette/Vaping Use: Never Used Advance Directives: Yes Advance Directives on File: Yes Advance Directives Date on File: 06/08/22 service: No Current occupational status: retired Cognitive needs: No Hearing needs: No Vision needs: No Meds Allergies Allergy/AdvReac Type Severity Reaction Status Date / Time fluticasone furoate Allergy Intermediate Rash Verified 05/25/24 17:13 [From Trelegy Ellipta] vilanterol Allergy Intermediate Rash Verified 05/25/24 17:13 [From Trelegy Ellipta] umeclidinium Allergy Unknown Hives Verified 05/25/24 17:13 [Incruse Ellipta] furosemide [From Lasix] AdvReac Intermediate Hallucinati Verified 05/25/24 17:13 ons Home Medications ?Medication ?Instructions ?Recorded ?Confirmed ?Last Taken ?Type budesonide-formoterol HFA 160 2 puff inhalation DAILY 03/14/21 03/23/24 07/29/22 08:00 History mcg-4.5 mcg/actuation aerosol inhaler (Symbicort) calcium 600 mg (as 1 tab PO DAILY 08/04/21 03/23/24 07/28/22 08:00 History carbonate)-vitamin D3 10 mcg (400 unit) tablet Oxygen Home Use 06/14/22 03/23/24 Unknown History azithromycin 500 mg tablet 500 mg PO 3XW 05/26/24 05/26/24 Unknown History Physical Exam 2 Vital Signs and Narrative: Vital Signs: Last Vital Signs Temp 97.8 F 05/26/24 11:14 Pulse 74 05/26/24 11:14 Resp 18 05/26/24 11:28 BP 131/63 05/26/24 11:14 Pulse Ox 96 05/26/24 11:14 O2 Del Method Nasal Cannula 05/26/24 11:14 O2 Flow Rate 3 05/26/24 11:14 Oxygen Flow Rate 3 05/25/24 17:10 BMI result Body Mass Index 33.6 General: AOx3, no acute distress Resp: Mild wheezing. Lung sound diminished. Poor airflow. CVS: S1, S2, RRR GI: +BS, NT, no distention Skin: Warm, dry Neuro: Cranial nerves II-XII grossly intact bilaterally. Motor grossly intact bilaterally Extremities: No edema Psych: Appropriate affect Results Labs 05/25/24 18:02 05/25/24 18:02 Labs: Laboratory Results - last 24 hr 05/25/24 05/25/24 05/25/24 18:02 18:10 20:04 MCV 94.3 MCH 28.9 MCHC 30.7 L RDW 13.6 Plt Count 184 MPV 10.1 Immature Gran % (Auto) 0.5 H Neut % (Auto) 70.9 Lymph % (Auto) 18.7 L [place] % (Auto) 5.5 Eos % (Auto) 3.3 Baso % (Auto) 1.1 Lymph # (Auto) 1.1 L [place] # (Auto) 0.3 Eos # (Auto) 0.2 Baso # (Auto) 0.1 Abs Immat Gran (auto) 0.03 Absolute Neuts (auto) 4.0 Absolute Nucleated RBC 0.000 Nucleated RBC % (auto) 0.0 PT 10.4 L INR 0.9 VBG pH 7.27 L VBG pCO2 100 VBG pO2 80 VBG HCO3 47 H VBG O2 Saturation 95.0 VBG Base Excess 15.7 Anion Gap 10 L Estim Creat Clear Calc 85.0 Estimated GFR > 60 Random Glucose 258 H Lactic Acid 1.4 Calcium 8.9 Magnesium 3.3 H Total Bilirubin 0.3 Direct Bilirubin 0.1 AST 22 ALT 14 Alkaline Phosphatase 107 B-Natriuretic Peptide 48 Total Protein 7.6 Albumin 4.1 Lipase 35 Urine Color Yellow Urine Appearance Clear Urine pH 6.0 Ur Specific [place] 1.015 Urine Protein Negative Urine Glucose (UA) >=1000 H Urine Ketones Negative Urine Blood Negative Urine Nitrite Negative Ur Leukocyte Esterase Negative Urine RBC 0-2 Urine WBC 0-5 Ur Squamous Epith Cells 0-2 Urine Bacteria None Seen Hyaline Casts 0-2 Influenza Type A (PCR) NEGATIVE Influenza Type B (PCR) NEGATIVE RSV RNA Qual (PCR) NEGATIVE SARS-CoV-2 RNA (RT-PCR) NEGATIVE 05/26/24 05/26/24 05/26/24 01:07 03:59 09:37 MCV MCH MCHC RDW Plt Count MPV Immature Gran % (Auto) Neut % (Auto) Lymph % (Auto) [place] % (Auto) Eos % (Auto) Baso % (Auto) Lymph # (Auto) [place] # (Auto) Eos # (Auto) Baso # (Auto) Abs Immat Gran (auto) Absolute Neuts (auto) Absolute Nucleated RBC Nucleated RBC % (auto) PT INR VBG pH 7.26 L 7.28 L 7.36 VBG pCO2 91 86 70 VBG pO2 42 32 56 VBG HCO3 41 H 40 H 40 H VBG O2 Saturation 62.0 45.0 86.0 VBG Base Excess 10.6 10.7 12.2 Anion Gap Estim Creat Clear Calc Estimated GFR Random Glucose Lactic Acid Calcium Magnesium Total Bilirubin Direct Bilirubin AST ALT Alkaline Phosphatase B-Natriuretic Peptide Total Protein Albumin Lipase Urine Color Urine Appearance Urine pH Ur Specific [place] Urine Protein Urine Glucose (UA) Urine Ketones Urine Blood Urine Nitrite Ur Leukocyte Esterase Urine RBC Urine WBC Ur Squamous Epith Cells Urine Bacteria Hyaline Casts Influenza Type A (PCR) Influenza Type B (PCR) RSV RNA Qual (PCR) SARS-CoV-2 RNA (RT-PCR) Assessment and Plan (1) Acute on chronic respiratory failure with hypoxia and hypercapnia: Status: Acute Plan Pt is a 74-year-old male with a PMH significant for?COPD, chronic hypoxemic and hypercarbic respiratory failure on 3L home O2, hx of left lung cancer s/p chemo and radiation 10 years ago, HLD, HTN, nim-gyenbjj-tnwlyyfgk type 2 diabetes, hepatic cirrhosis, hx of alcohol abuse disorder, LIBRADO on CPAP, and anxiety who presents to the ED with worsening SOB and difficulty breathing x2-3 days. Pt will be admitted to the hospital for treatment and further evaluation of acute on chronic hypoxic and hypercapnic respiratory failure in the setting of acute COPD exacerbation. Acute on chronic hypoxic and hypercapnic respiratory failure in the setting of acute COPD exacerbation EMS report initially satting in 50s, ABG with respiratory acidosis, pt initially placed on rescue BiPAP overnight Current VBG back to baseline CXR negative for infiltrates, procalcitonin WNL at 0.03 No sepsis: No fever, tachycardic, or leukocytosis; lactic acid WNL at 1.4 Will treat with DuoNebs, Solu-Medrol, and benzonatate Azithromycin for pleiotropic effects, started 05/25/2024 Titrate supplemental O2 >90, pt on baseline 3L home O2 Monitor respiratory status Qok-hrnwnyh-irrqxtori type [address] on sliding scale Hold metformin Diabetic diet HTN Continue metoprolol GERD PPI Mood disorder Continue home mood stabilizers LIBRADO CPAP at night Full Code Attending:?Dr. Anguiano DVT Prophylaxis: Lovenox Pt will require a hospitalization of at least two nights for treatment of?acute on chronic hypoxic and hypercapnic respiratory failure in the setting of acute COPD exacerbation. Given that pt was hypoxic into the 50s and required rescue BiPAP overnight, will require hospital level of care for administration IV steroids, breathing treatments, and close monitoring of respiratory status. Quality Stroke Does the patient have a stroke diagnosis?: No VTE Prior VTE?: No VTE Risk Level:: Medical - moderate - high VTE Device Contraindication: Treatment Not Indicated VTE Drug Contraindication: N/A - Med Ordered
[2024-05-26 14:24] LABS: Procalcitonin 0.03 ng/mL
--- NOTE | 2024-05-26 14:42 | PHA.MEDREC ---
Addendum entered by Chip Price RPh 05/26/24 14:50: Reviewed by [facility] Original Note: Pharmacy Consult ? Medication Reconciliation Pharmacy has completed the medication reconciliation. Spoke with patient and to confirm medications. He gets his symbicort samples from his doctor. He takes Azithromycin MOWEFR, had yesterday. He uses lactulose prn but has been taking it daily recently due to recent symptoms. He reports he only had morning medications yesterday.
[2024-05-26] MEDS: 0.9 % Sodium Chloride Flush 3 ML SYRINGE IVFLUSH (15:04)
[2024-05-26] MEDS: polyethylene glycoL 3350 17 GM POWD.PACK PO (15:04)
[2024-05-26] MEDS: methylPREDNISolone Sod Succ 40 MG/ML VIAL IVPUSH (15:04)
[2024-05-26] MEDS: Lactulose 20 GM/30 ML SOLUTION 30 GM PO (15:04)
[2024-05-26] MEDS: Azithromycin 500 MG in 0.9 % Sodium Chloride 250 ML 125 MG IV (17:57)
--- NOTE | 2024-05-26 19:04 | PC.NURSE ---
ASSUMED CARE OF PT At this time, patient sitting on side of stretcher. expressed frustration about being stuck in ed still. no other c/o at this time. urinal emptied and call buck within reach
--- NOTE | 2024-05-26 22:34 | PC.NURSE ---
patient placed in hospital bed, bed locked in lowest position call buck given
[2024-05-27] VITALS (10 sets, daily range): BP systolic 124–168; BP diastolic 59–77; PULSE 87–126; RESP 14–18; TEMP 36.4–36.9; O2SAT 92–98; BMI 32.0
[2024-05-27] MEDS: 0.9 % Sodium Chloride Flush 3 ML SYRINGE IVFLUSH ×2 (00:51→21:43)
[2024-05-27 00:59] LABS: Glucose, Whole Blood 351 mg/dL (60-115)
--- NOTE | 2024-05-27 01:02 | PC.NURSE ---
pt reporting he is diabetic on glipzide at home but has not been getting here, bedside glucose 351, messaged hospitalist who placed orders for sliding scale
[2024-05-27] MEDS: Insulin Lispro 100 UNIT/ML 3 ML VIAL SUBCUT ×4 (01:29→21:40)
[2024-05-27] MEDS: methylPREDNISolone Sod Succ 40 MG/ML VIAL IVPUSH ×2 (01:32→13:59)
[2024-05-27 07:32] LABS: Glucose, Whole Blood 226 mg/dL (60-115)
[2024-05-27] MEDS: Albuterol/Iprat 2.5/0.5MG 3 ML AMPUL.NEB INHALE (08:25)
--- NOTE | 2024-05-27 08:54 | MHC.CM.PN ---
IMM 05/27/24 Male DX COPD EXAC He lives w Independent ADLS, no AD Home 02 3L via RI, CPAP: Gayle PCP Ryanne Muro, no services in place HCP on file DP Home self care. Pts will provide transport home at discharge.
[2024-05-27 11:24] LABS: Glucose, Whole Blood 311 mg/dL (60-115)
--- NOTE | 2024-05-27 12:04 | P.PNIM_ITS ---
Subjective Subjective Date of Service: 05/27/24 Interval History: Being followed for COPD exacerbation/constipation Had multiple loose stools, denies abdominal pain. Complaining of shortness of breath with activity, denies fever, no chills tolerating diet with no nausea, no vomiting or abdominal pain. Review of Systems All other system reviewed and are negative. Physical Exam 2 Vital Signs: Vital Signs: Last Vital Signs Temp 98.4 F 05/27/24 07:19 Pulse 93 05/27/24 08:27 Resp 16 05/27/24 08:27 BP 132/60 05/27/24 07:19 Pulse Ox 95 05/27/24 07:19 O2 Del Method Nasal Cannula 05/27/24 07:19 O2 Flow Rate 3 05/27/24 07:19 Oxygen Flow Rate 3 05/25/24 17:10 BMI result Body Mass Index 32.0 Const: Other: Gen: in no acute distress HEENT: sclera anicteric, moist mucus membranes Neck: supple Lungs: diminished, expiratory wheezing Heart: regular rate and rhythm, no murmurs Abd: soft, non-tender, non-distended Ext: no pitting edema Skin: warm/well-perfused Neuro: alert and oriented x3, no focal findings Psych: appropriate affect Objective Data Active Medications Acetaminophen (Acetaminophen 325 Mg Tablet) 650 mg PO Q6H PRN PRN Reason: Pain, Mild 1-3,fever,headache Albuterol/Ipratropium (Albuterol/Iprat 2.5/0.5mg 3 Ml Ampul.Neb) 3 ml INHALE RQ4H WHILE AWAKE DUTCH Last Admin: 05/27/24 08:25 Dose: 3 ml Documented By: ELENA Albuterol/Ipratropium (Albuterol/Iprat 2.5/0.5mg 3 Ml Ampul.Neb) 3 ml INHALE RQ4H WHILE AWAKE PRN PRN Reason: Shortness of Breath/Wheezing Benzonatate (Benzonatate 100 Mg Capsule) 100 mg PO TID PRN PRN Reason: Cough Calcium Carbonate (Calcium Carbonate 750 Mg Tab.Chew) 750 mg PO Q4H PRN PRN Reason: Heartburn Dextrose (Dextrose 50 % 25 Gm/50 Ml Syringe) 25 gm IVPUSH Q15M PRN; Protocol PRN Reason: per Hypoglycemia Standing Ord. Docusate Sodium (Docusate Sodium 100 Mg Capsule) 100 mg PO BID [facility] Last Admin: 05/27/24 07:27 Dose: Not Given Documented By: DURAN Non-Admin Reason: Patient Refused Enoxaparin Sodium (Enoxaparin Sodium 40 Mg/0.4 Ml Syringe) 40 mg SUBCUT Q24H [facility] Last Admin: 05/26/24 15:11 Dose: Not Given Documented By: ERICA Non-Admin Reason: Patient Refused Glucose (Glucose Gel 15 Gm Gel..Gram.) 15 gm PO Q15M PRN; Protocol PRN Reason: per Hypoglycemia Standing Ord. Azithromycin 500 mg/ Sodium (Chloride) 250 mls @ 125 mls/hr IV Q24H [facility] Last Infusion: 05/26/24 20:48 Dose: Infused Documented By: EBNJY Insulin Human Lispro (Insulin Lispro 100 Unit/Ml 3 Ml Vial) 0 unit SUBCUT QIDACHS [facility]; Protocol Last Admin: 05/27/24 11:37 Dose: 8 unit Documented By: DURAN Lactulose (Lactulose 20 Gm/30 Ml Solution) 20 gm PO DAILY PRN PRN Reason: Constipation Magnesium Hydroxide (Milk Of Magnesia 30 Ml Oral.Susp) 30 ml PO DAILY PRN PRN Reason: Constipation Melatonin (Melatonin 3 Mg Tablet) 6 mg PO BEDTIME PRN PRN Reason: Insomnia Methylprednisolone Sodium Succinate (Methylprednisolone Sod Succ 40 Mg/Ml Vial) 40 mg IVPUSH Q12H [facility] Last Admin: 05/27/24 01:32 Dose: 40 mg Documented By: BENJY Polyethylene Glycol (Polyethylene Glycol 3350 17 Gm Powd.Pack) 17 gm PO DAILY [facility] Last Admin: 05/27/24 07:27 Dose: Not Given Documented By: DURAN Non-Admin Reason: Patient Refused Sodium Biphosphate/Sodium Phosphate (Sodium Phosphate,Mchenry-Dibasic 133 Ml Enema) 133 ml NJ ONCE PRN PRN Reason: Constipation Sodium Chloride (0.9 % Sodium Chloride Flush 3 Ml Syringe) 3 ml IVFLUSH QSHIFT [facility] Last Admin: 05/27/24 07:27 Dose: Not Given Documented By: DURAN Non-Admin Reason: not scanning Labs 05/25/24 18:02 05/25/24 18:02 Labs: Laboratory Results - last 24 hr 05/26/24 05/27/24 05/27/24 09:35 00:54 07:22 POC Glucose 351 H* 226 H Procalcitonin 0.03 05/27/24 11:13 POC Glucose 311 H Procalcitonin Microbiology Microbiology Results: Microbiology 05/25/24 18:02 Blood Culture - Preliminary Blood - Venous No growth after 24 hours. 05/25/24 18:02 Blood Culture - Preliminary Blood - Venous No growth after 24 hours. Assessment and Plan (1) Acute on chronic respiratory failure with hypoxia and hypercapnia: Status: Acute (2) Acute and chronic respiratory failure: Status: Acute (3) Anxiety and depression: Status: Acute Plan 74-year-old male with a PMH significant for?COPD, chronic hypoxemic and hypercarbic respiratory failure on 3L home O2, hx of left lung cancer s/p chemo and radiation 10 years ago, HLD, HTN, jfq-ijgoluc-jefndghmc type 2 diabetes, hepatic cirrhosis, hx of alcohol abuse disorder, LIBRADO on CPAP, and anxiety who presents to the ED with worsening SOB and difficulty breathing x2-3 days. Pt will be admitted to the hospital for treatment and further evaluation of acute on chronic hypoxic and hypercapnic respiratory failure in the setting of acute COPD exacerbation. Acute on chronic hypoxic and hypercapnic respiratory failure in the setting of acute COPD exacerbation Persistent shortness of breath worse with exertion All arrival ABG with respiratory acidosis, treated with rescue BiPAP in ED, repeat VBG back to baseline. CXR negative for infiltrates, procalcitonin WNL at 0.03 Continue scheduled and prn DuoNebs, iv Solu-Medrol, and benzonatate Azithromycin for pleiotropic effects, started 05/25/2024 Titrate supplemental O2 >90,on baseline 3L home O2 Monitor respiratory status Constipation resolved Continue MiraLax and stool softeners Yxl-wmhpeas-teyeyrxem type 2 diabetes Elevated blood sugars likely due to steroids, Continue glipizide , adjust dose of insulin sliding scale Hold metformin Diabetic diet HTN Continue metoprolol GERD PPI Mood disorder Continue home mood stabilizers LIBRADO CPAP at night Grade 1 obesity recommend low-calorie diet. Full Code DVT Prophylaxis: Lovenox Pt will require continued inpatient hospitalization for treatment of?acute on chronic hypoxic and hypercapnic respiratory failure in the setting of acute COPD exacerbation. Given that pt was hypoxic into the 50s and required rescue BiPAP overnight, will require hospital level of care for administration IV steroids, breathing treatments, and close monitoring of respiratory status. Quality Stroke Does the patient have a stroke diagnosis?: No VTE Prior VTE?: No VTE Risk Level:: Medical - moderate - high VTE Device Contraindication: Treatment Not Indicated VTE Drug Contraindication: N/A - Med Ordered
[2024-05-27] MEDS: LORazepam 0.5 MG TABLET PO (12:23)
[2024-05-27] MEDS: Lactulose 20 GM/30 ML SOLUTION PO (14:06)
[2024-05-27] MEDS: levalbuterol HCL 1.25 MG/3 ML VIAL.NEB INHALE ×2 (16:11→20:52)
[2024-05-27 16:13] LABS: Glucose, Whole Blood 143 mg/dL (60-115)
[2024-05-27] MEDS: Azithromycin 500 MG in 0.9 % Sodium Chloride 250 ML 125 MG IV (17:29)
--- NOTE | 2024-05-27 17:55 | PC.NURSE ---
PT rang, Sat in the 77, he hooked himself up to the tank, tank on empty. Connected to the wall, O2 Sat came up to 91 on 3L. Pt educated that Tank O2 is for bathroom use only and to ring the buck for staff assistance. Pt states understanding.
[2024-05-27 21:01] LABS: Glucose, Whole Blood 304 mg/dL (60-115)
[2024-05-27] MEDS: Docusate Sodium 100 MG CAPSULE PO (21:40)
[2024-05-27] MEDS: Atorvastatin Calcium 80 MG TABLET PO (21:40)
[2024-05-27] MEDS: glipiZIDE 5 MG TABLET PO (21:40)
[2024-05-27] MEDS: Metoprolol Tartrate 25 MG TABLET PO (21:41)
[2024-05-28] VITALS (8 sets, daily range): BP systolic 109–148; BP diastolic 56–70; PULSE 72–91; RESP 16–18; TEMP 36–36.5; O2SAT 92–95
[2024-05-28] MEDS: LORazepam 0.5 MG TABLET PO ×2 (00:35→13:38)
[2024-05-28] MEDS: methylPREDNISolone Sod Succ 40 MG/ML VIAL IVPUSH ×2 (02:00→13:34)
[2024-05-28] MEDS: levalbuterol HCL 1.25 MG/3 ML VIAL.NEB INHALE ×5 (05:40→19:57)
[2024-05-28] MEDS: Omeprazole 20 MG CAPSULE.DR PO (05:58)
[2024-05-28 07:33] LABS: Glucose, Whole Blood 182 mg/dL (60-115)
[2024-05-28] MEDS: Insulin Lispro 100 UNIT/ML 3 ML VIAL SUBCUT ×3 (08:37→20:15)
[2024-05-28] MEDS: polyethylene glycoL 3350 17 GM POWD.PACK PO (08:38)
[2024-05-28] MEDS: Docusate Sodium 100 MG CAPSULE PO ×2 (08:38→20:15)
[2024-05-28] MEDS: glipiZIDE 5 MG TABLET PO ×2 (08:38→20:14)
[2024-05-28] MEDS: Metoprolol Tartrate 25 MG TABLET PO ×2 (08:38→20:14)
[2024-05-28] MEDS: Escitalopram Oxalate 20 MG TABLET PO (08:38)
[2024-05-28] MEDS: 0.9 % Sodium Chloride Flush 3 ML SYRINGE IVFLUSH ×3 (08:42→20:16)
--- NOTE | 2024-05-28 10:14 | HO.PM.IMPN ---
Subjective Subjective Date of Service: 05/28/24 Interval History: Complaining of persistent shortness of breath, cough, abdominal bloating, constipation, denies fever, no chills, tolerating diet. Review of Systems All other system reviewed and are negative. Physical Exam Vital Signs: Vital Signs: Last Vital Signs Temp 97.7 F 05/28/24 07:23 Pulse 83 05/28/24 08:06 Resp 16 05/28/24 08:06 BP 124/59 L 05/28/24 07:23 Pulse Ox 93 05/28/24 07:23 O2 Del Method Nasal Cannula 05/28/24 07:23 O2 Flow Rate 3 05/28/24 07:23 Oxygen Flow Rate 3 05/25/24 17:10 BMI result Body Mass Index 32.0 Const: Other: Gen: in no acute distress HEENT: sclera anicteric, moist mucus membranes Neck: supple Lungs: diminished, expiratory wheezing Heart: regular rate and rhythm, no murmurs Abd: soft, non-tender, obese, bowel sounds audible Ext: no pitting edema Skin: warm/well-perfused Neuro: alert and oriented x3, no focal findings Psych: appropriate affect Objective Data Active Medications Acetaminophen (Acetaminophen 325 Mg Tablet) 650 mg PO Q6H PRN PRN Reason: Pain, Mild 1-3,fever,headache Atorvastatin Calcium (Atorvastatin Calcium 80 Mg Tablet) 80 mg PO BEDTIME [facility] Last Admin: 05/27/24 21:40 Dose: 80 mg Documented By: KAIT Benzonatate (Benzonatate 100 Mg Capsule) 100 mg PO TID PRN PRN Reason: Cough Calcium Carbonate (Calcium Carbonate 750 Mg Tab.Chew) 750 mg PO Q4H PRN PRN Reason: Heartburn Dextrose (Dextrose 50 % 25 Gm/50 Ml Syringe) 25 gm IVPUSH Q15M PRN; Protocol PRN Reason: per Hypoglycemia Standing Ord. Docusate Sodium (Docusate Sodium 100 Mg Capsule) 100 mg PO BID [facility] Last Admin: 05/28/24 08:38 Dose: 100 mg Documented By: BHAVESH Enoxaparin Sodium (Enoxaparin Sodium 40 Mg/0.4 Ml Syringe) 40 mg SUBCUT Q24H [facility] Last Admin: 05/27/24 13:59 Dose: Not Given Documented By: DURAN Non-Admin Reason: Patient Refused Escitalopram Oxalate (Escitalopram Oxalate 20 Mg Tablet) 20 mg PO DAILY [facility] Last Admin: 05/28/24 08:38 Dose: 20 mg Documented By: BHAVESH Glipizide (Glipizide 5 Mg Tablet) 5 mg PO BID [facility] Last Admin: 05/28/24 08:38 Dose: 5 mg Documented By: BHAVESH Glucose (Glucose Gel 15 Gm Gel..Gram.) 15 gm PO Q15M PRN; Protocol PRN Reason: per Hypoglycemia Standing Ord. Azithromycin 500 mg/ Sodium (Chloride) 250 mls @ 125 mls/hr IV Q24H [facility] Last Infusion: 05/27/24 19:50 Dose: Infused Documented By: KAIT Insulin Human Lispro (Insulin Lispro 100 Unit/Ml 3 Ml Vial) 0 unit SUBCUT QIDACHS [facility]; Protocol Last Admin: 05/28/24 08:37 Dose: 4 unit Documented By: BHAVESH Lactulose (Lactulose 20 Gm/30 Ml Solution) 20 gm PO DAILY PRN PRN Reason: Constipation Last Admin: 05/27/24 14:06 Dose: 20 gm Documented By: DURAN Levalbuterol HCl (Levalbuterol Hcl 1.25 Mg/3 Ml Vial.Neb) 1.25 mg INHALE Q4H PRN PRN Reason: sob Last Admin: 05/28/24 05:40 Dose: 1.25 mg Documented By: VASHTI Levalbuterol HCl (Levalbuterol Hcl 1.25 Mg/3 Ml Vial.Neb) 1.25 mg INHALE RQ4H WHILE AWAKE [facility] Last Admin: 05/28/24 08:06 Dose: 1.25 mg Documented By: FUENTES Lorazepam (Lorazepam 0.5 Mg Tablet) 0.5 mg PO BID PRN PRN Reason: anxiety Last Admin: 05/28/24 00:35 Dose: 0.5 mg Documented By: KAIT Magnesium Hydroxide (Milk Of Magnesia 30 Ml Oral.Susp) 30 ml PO DAILY PRN PRN Reason: Constipation Melatonin (Melatonin 3 Mg Tablet) 6 mg PO BEDTIME PRN PRN Reason: Insomnia Methylprednisolone Sodium Succinate (Methylprednisolone Sod Succ 40 Mg/Ml Vial) 40 mg IVPUSH Q12H [facility] Last Admin: 05/28/24 02:00 Dose: 40 mg Documented By: KAIT Metoprolol Tartrate (Metoprolol Tartrate 25 Mg Tablet) 25 mg PO BID [facility]; Protocol Last Admin: 05/28/24 08:38 Dose: 25 mg Documented By: BHAVESH Omeprazole (Omeprazole 20 Mg Capsule.) 20 mg PO DAILY@0630 [facility] Last Admin: 05/28/24 05:58 Dose: 20 mg Documented By: KAIT Polyethylene Glycol (Polyethylene Glycol 3350 17 Gm Powd.Pack) 17 gm PO DAILY [facility] Last Admin: 05/28/24 08:38 Dose: 17 gm Documented By: BHAVESH Sodium Biphosphate/Sodium Phosphate (Sodium Phosphate,[place]-Dibasic 133 Ml Enema) 133 ml SC ONCE PRN PRN Reason: Constipation Sodium Chloride (0.9 % Sodium Chloride Flush 3 Ml Syringe) 3 ml IVFLUSH QSHIFT [facility] Last Admin: 05/28/24 08:42 Dose: 3 ml Documented By: BHAVESH Labs 05/25/24 18:02 05/25/24 18:02 Labs: Laboratory Results - last 24 hr 05/27/24 05/27/24 05/27/24 11:13 16:02 20:43 POC Glucose 311 H 143 H 304 H 05/28/24 07:23 POC Glucose 182 H Microbiology Microbiology Results: Microbiology 05/25/24 18:02 Blood Culture - Preliminary Blood - Venous No growth after 48 hours. 05/25/24 18:02 Blood Culture - Preliminary Blood - Venous No growth after 48 hours. Assessment and Plan (1) Acute on chronic respiratory failure with hypoxia and hypercapnia: Status: Acute (2) Acute and chronic respiratory failure: Status: Acute Plan 74-year-old male with a PMH significant for?COPD, chronic hypoxemic and hypercarbic respiratory failure on 3L home O2, hx of left lung cancer s/p chemo and radiation 10 years ago, HLD, HTN, pva-nwjstvs-gvtycrdel type 2 diabetes, hepatic cirrhosis, hx of alcohol abuse disorder, LIBRADO on CPAP, and anxiety who presents to the ED with worsening SOB and difficulty breathing x2-3 days. Pt will be admitted to the hospital for treatment and further evaluation of acute on chronic hypoxic and hypercapnic respiratory failure in the setting of acute COPD exacerbation. Acute on chronic hypoxic and hypercapnic respiratory failure in the setting of acute COPD exacerbation Persistent shortness of breath worse with exertion on arrival ABG with respiratory acidosis, treated with rescue BiPAP in ED, repeat VBG back to baseline. CXR negative for infiltrates, procalcitonin WNL at 0.03 Continue scheduled xopenex, iv Solu-Medrol 40mg bid, and benzonatate (to not tolerate DuoNeb due to shakiness) Continue Azithromycin started on 05/25 for pleiotropic effects Titrate supplemental O2 >90,on baseline 3L home O2 Add incentive spirometry/ Monitor respiratory status Chronic Constipation treated with lactulose with good response, again feel constipated. Continue MiraLax and stool softeners, will give lactulose types 1 Suh-bzprdsb-narbqbsya type 2 diabetes on Glpizide and metformin at home Continue glipizide 5 mg b.i.d., metformin on hold elevated blood sugars likely due to IV steroids, continue diabetic diet and adjust insulin sliding scale. GERD continue PPI Hypertension continue metoprolol 25 mg b.i.d. Mood disorder Continue lorazepam, Lexapro LIBRADO CPAP at night Grade 1 obesity recommend low-calorie diet. Full Code DVT Prophylaxis: Lovenox Pt will require continued inpatient hospitalization for treatment of?acute on chronic hypoxic and hypercapnic respiratory failure in the setting of acute COPD exacerbation ,on IV steroids, breathing treatments, and close monitoring of respiratory status. Quality Stroke Does the patient have a stroke diagnosis?: No VTE Prior VTE?: No VTE Risk Level:: Medical - moderate - high VTE Device Contraindication: Treatment Not Indicated VTE Drug Contraindication: N/A - Med Ordered
[2024-05-28] MEDS: Lactulose 20 GM/30 ML SOLUTION PO (10:46)
[2024-05-28 11:16] LABS: Glucose, Whole Blood 268 mg/dL (60-115)
[2024-05-28 16:04] LABS: Glucose, Whole Blood 137 mg/dL (60-115)
[2024-05-28] MEDS: Azithromycin 500 MG in 0.9 % Sodium Chloride 250 ML 125 MG IV (17:57)
[2024-05-28 20:10] LABS: Glucose, Whole Blood 344 mg/dL (60-115)
[2024-05-28] MEDS: Atorvastatin Calcium 80 MG TABLET PO (20:14)
[2024-05-29] VITALS (7 sets, daily range): BP systolic 121–140; BP diastolic 58–68; PULSE 69–84; RESP 16–20; TEMP 36–36.4; O2SAT 92–97
[2024-05-29] MEDS: LORazepam 0.5 MG TABLET PO ×2 (00:04→20:39)
[2024-05-29] MEDS: methylPREDNISolone Sod Succ 40 MG/ML VIAL IVPUSH ×2 (01:04→13:58)
--- NOTE | 2024-05-29 05:54 | PC.NURSE ---
patient stated he did not want to take his scheduled 0630 Prilosec at this time and wants to wait till his 0900 meds because at home he takes them all together.
[2024-05-29 08:04] LABS: Glucose, Whole Blood 200 mg/dL (60-115)
[2024-05-29] MEDS: Insulin Lispro 100 UNIT/ML 3 ML VIAL SUBCUT ×3 (08:58→20:40)
[2024-05-29] MEDS: Docusate Sodium 100 MG CAPSULE PO ×2 (08:58→20:32)
[2024-05-29] MEDS: Metoprolol Tartrate 25 MG TABLET PO ×2 (08:58→20:32)
[2024-05-29] MEDS: glipiZIDE 5 MG TABLET PO ×2 (08:58→20:32)
[2024-05-29] MEDS: Omeprazole 20 MG CAPSULE.DR PO (08:58)
[2024-05-29] MEDS: polyethylene glycoL 3350 17 GM POWD.PACK PO (08:59)
[2024-05-29] MEDS: Escitalopram Oxalate 20 MG TABLET PO (08:59)
[2024-05-29] MEDS: 0.9 % Sodium Chloride Flush 3 ML SYRINGE IVFLUSH (09:02)
[2024-05-29] MEDS: Lactulose 20 GM/30 ML SOLUTION PO ×2 (10:50→13:58)
[2024-05-29] MEDS: Milk of Magnesia 30 ML ORAL.SUSP PO (10:50)
[2024-05-29] MEDS: Sennosides/Docusate Sodium TABLET 1 TAB PO (10:50)
--- NOTE | 2024-05-29 10:57 | HO.PM.IMPN ---
Subjective Subjective Date of Service: 05/30/24 Interval History: Shortness of breath is improving, no fevers, no chills persistent constipation, denies nausea, no vomiting, tolerating diet, no acute events overnight. Review of Systems All other system reviewed and are negative. Physical Exam Vital Signs: Vital Signs: Last Vital Signs Temp 96.8 F 05/29/24 07:21 Pulse 70 05/29/24 07:21 Resp 18 05/29/24 07:21 BP 121/58 L 05/29/24 07:21 Pulse Ox 94 05/29/24 07:21 O2 Del Method Nasal Cannula 05/29/24 07:21 O2 Flow Rate 2.0 05/29/24 07:21 Oxygen Flow Rate 3 05/25/24 17:10 BMI result Body Mass Index 32.0 Const: Other: Gen: in no acute distress HEENT: sclera anicteric, moist mucus membranes Neck: supple Lungs: Right side diminished breath sounds, bilateral fine expiratory wheezing Heart: regular rate and rhythm, no murmurs Abd: soft, non-tender, obese, bowel sounds audible Ext: no pitting edema Skin: warm/well-perfused Neuro: alert and oriented x3, no focal findings Psych: appropriate affect Objective Data Active Medications Acetaminophen (Acetaminophen 325 Mg Tablet) 650 mg PO Q6H PRN PRN Reason: Pain, Mild 1-3,fever,headache Atorvastatin Calcium (Atorvastatin Calcium 80 Mg Tablet) 80 mg PO BEDTIME [facility] Last Admin: 05/28/24 20:14 Dose: 80 mg Documented By: KAIT Benzonatate (Benzonatate 100 Mg Capsule) 100 mg PO TID PRN PRN Reason: Cough Calcium Carbonate (Calcium Carbonate 750 Mg Tab.Chew) 750 mg PO Q4H PRN PRN Reason: Heartburn Dextrose (Dextrose 50 % 25 Gm/50 Ml Syringe) 25 gm IVPUSH Q15M PRN; Protocol PRN Reason: per Hypoglycemia Standing Ord. Docusate Sodium (Docusate Sodium 100 Mg Capsule) 100 mg PO BID [facility] Last Admin: 05/29/24 08:58 Dose: 100 mg Documented By: BHAVESH Enoxaparin Sodium (Enoxaparin Sodium 40 Mg/0.4 Ml Syringe) 40 mg SUBCUT Q24H [facility] Last Admin: 05/28/24 16:19 Dose: Not Given Documented By: BHAVESH Non-Admin Reason: Patient Refused Escitalopram Oxalate (Escitalopram Oxalate 20 Mg Tablet) 20 mg PO DAILY [facility] Last Admin: 05/29/24 08:59 Dose: 20 mg Documented By: BHAVESH Glipizide (Glipizide 5 Mg Tablet) 5 mg PO BID [facility] Last Admin: 05/29/24 08:58 Dose: 5 mg Documented By: BHAVESH Glucose (Glucose Gel 15 Gm Gel..Gram.) 15 gm PO Q15M PRN; Protocol PRN Reason: per Hypoglycemia Standing Ord. Azithromycin 500 mg/ Sodium (Chloride) 250 mls @ 125 mls/hr IV Q24H [facility] Last Infusion: 05/28/24 20:08 Dose: Infused Documented By: KAIT Insulin Human Lispro (Insulin Lispro 100 Unit/Ml 3 Ml Vial) 0 unit SUBCUT QIDACHS [facility]; Protocol Last Admin: 05/29/24 08:58 Dose: 4 unit Documented By: BHAVESH Lactulose (Lactulose 20 Gm/30 Ml Solution) 20 gm PO DAILY [facility] Last Admin: 05/29/24 10:50 Dose: 20 gm Documented By: BHAVESH Levalbuterol HCl (Levalbuterol Hcl 1.25 Mg/3 Ml Vial.Neb) 1.25 mg INHALE Q4H PRN PRN Reason: sob Last Admin: 05/28/24 05:40 Dose: 1.25 mg Documented By: VASHTI Levalbuterol HCl (Levalbuterol Hcl 1.25 Mg/3 Ml Vial.Neb) 1.25 mg INHALE RQ4H WHILE AWAKE [facility] Last Admin: 05/29/24 08:24 Dose: Not Given Documented By: CARISSA Non-Admin Reason: pt eating Lorazepam (Lorazepam 0.5 Mg Tablet) 0.5 mg PO BID PRN PRN Reason: anxiety Last Admin: 05/29/24 00:04 Dose: 0.5 mg Documented By: KAIT Melatonin (Melatonin 3 Mg Tablet) 6 mg PO BEDTIME PRN PRN Reason: Insomnia Methylprednisolone Sodium Succinate (Methylprednisolone Sod Succ 40 Mg/Ml Vial) 40 mg IVPUSH Q12H [facility] Last Admin: 05/29/24 01:04 Dose: 40 mg Documented By: KAIT Metoprolol Tartrate (Metoprolol Tartrate 25 Mg Tablet) 25 mg PO BID [facility]; Protocol Last Admin: 05/29/24 08:58 Dose: 25 mg Documented By: BHAVESH Omeprazole (Omeprazole 20 Mg Capsule.) 20 mg PO DAILY@0630 [facility] Last Admin: 05/29/24 08:58 Dose: 20 mg Documented By: BHAVESH Polyethylene Glycol (Polyethylene Glycol 3350 17 Gm Powd.Pack) 17 gm PO DAILY [facility] Last Admin: 05/29/24 08:59 Dose: 17 gm Documented By: BHAVESH Sodium Biphosphate/Sodium Phosphate (Sodium Phosphate,[place]-Dibasic 133 Ml Enema) 133 ml MD ONCE PRN PRN Reason: Constipation Sodium Chloride (0.9 % Sodium Chloride Flush 3 Ml Syringe) 3 ml IVFLUSH QSHIFT [facility] Last Admin: 05/29/24 09:02 Dose: 3 ml Documented By: BHAVESH Labs 05/25/24 18:02 05/25/24 18:02 Labs: Laboratory Results - last 24 hr 05/28/24 05/28/24 05/28/24 11:09 16:01 20:07 POC Glucose 268 H 137 H 344 H 05/29/24 07:39 POC Glucose 200 H Assessment and Plan (1) Acute on chronic respiratory failure with hypoxia and hypercapnia: Status: Acute (2) Chronic lung disease: Status: Acute (3) Cirrhosis of liver with ascites: Status: Acute Plan 74-year-old male with a PMH significant for?COPD, chronic hypoxemic and hypercarbic respiratory failure on 3L home O2, hx of left lung cancer s/p chemo and radiation 10 years ago, HLD, HTN, tah-jjfirgp-hntirxujy type 2 diabetes, hepatic cirrhosis, hx of alcohol abuse disorder, LIBRADO on CPAP, and anxiety who presents to the ED with worsening SOB and difficulty breathing x2-3 days. Pt will be admitted to the hospital for treatment and further evaluation of acute on chronic hypoxic and hypercapnic respiratory failure in the setting of acute COPD exacerbation. Acute on chronic hypoxic and hypercapnic respiratory failure in the setting of acute COPD exacerbation Improving , shortness of breath worse with exertion on arrival ABG with respiratory acidosis, treated with rescue BiPAP in ED, repeat VBG back to baseline. CXR negative for infiltrates, procalcitonin WNL at 0.03 Continue scheduled xopenex, iv Solu-Medrol 40mg bid, and benzonatate (do not tolerate DuoNeb due to shakiness) Continue Azithromycin started on 05/25 for pleiotropic effects Titrate supplemental O2 >90,on baseline 3L home O2 Encourage incentive spirometry/ Monitor respiratory status Chronic Constipation treated with lactulose with good response initially, again feel constipated. Continue MiraLax ,stool softeners, repeat lactulose ,mom, senna Cjj-wsmvega-ntftaeomt type 2 diabetes on Glpizide and metformin at home Continue glipizide 5 mg b.i.d., metformin on hold, elevated blood sugars likely due to IV steroids, continue diabetic diet and adjust insulin sliding scale. GERD continue PPI Hypertension continue metoprolol 25 mg b.i.d. Mood disorder Continue lorazepam, Lexapro LIBRADO CPAP at night Grade 1 obesity recommend low-calorie diet. Full Code DVT Prophylaxis: Lovenox Pt will require continued inpatient hospitalization for treatment of?acute on chronic hypoxic and hypercapnic respiratory failure in the setting of acute COPD exacerbation ,on IV steroids, breathing treatments, and close monitoring of respiratory status. Quality Stroke Does the patient have a stroke diagnosis?: No VTE Prior VTE?: No VTE Risk Level:: Medical - moderate - high VTE Device Contraindication: Treatment Not Indicated VTE Drug Contraindication: N/A - Med Ordered
--- NOTE | 2024-05-29 10:59 | PC.NURSE ---
Pt refusing bed alarm - stable ambulating to BR
[2024-05-29 11:20] LABS: Glucose, Whole Blood 285 mg/dL (60-115)
[2024-05-29] MEDS: levalbuterol HCL 1.25 MG/3 ML VIAL.NEB INHALE ×3 (12:11→19:40)
[2024-05-29 16:09] LABS: Glucose, Whole Blood 62 mg/dL (60-115)
[2024-05-29 16:36] LABS: Glucose, Whole Blood 130 mg/dL (60-115)
--- NOTE | 2024-05-29 18:12 | PC.NURSE ---
POC 15:55 62, pt asymptomatic, drank 8oz joshua peterson - recheck POC 16:32 130
[2024-05-29] MEDS: Azithromycin 500 MG in 0.9 % Sodium Chloride 250 ML 125 MG IV (19:27)
[2024-05-29] MEDS: Atorvastatin Calcium 80 MG TABLET PO (20:32)
[2024-05-29] MEDS: Benzonatate 100 MG CAPSULE PO (20:39)
[2024-05-29 20:45] LABS: Glucose, Whole Blood 315 mg/dL (60-115)
[2024-05-30] VITALS (8 sets, daily range): BP systolic 130–149; BP diastolic 63–78; PULSE 65–100; RESP 16–18; TEMP 36.2–36.4; O2SAT 92–95
[2024-05-30] MEDS: 0.9 % Sodium Chloride Flush 3 ML SYRINGE IVFLUSH ×4 (00:39→21:59)
[2024-05-30] MEDS: methylPREDNISolone Sod Succ 40 MG/ML VIAL IVPUSH ×2 (01:47→15:11)
[2024-05-30 04:04] LABS: Glucose, Whole Blood 140 mg/dL (60-115)
--- NOTE | 2024-05-30 05:18 | PC.NURSE ---
patient continues to refuse bed alarm, ambulates with a steady gait. Re-educated patient on safety and encouraged patient to use callbell for assistance.
[2024-05-30] MEDS: Omeprazole 20 MG CAPSULE.DR PO (05:54)
[2024-05-30 07:26] LABS: Glucose, Whole Blood 213 mg/dL (60-115)
[2024-05-30] MEDS: Insulin Lispro 100 UNIT/ML 3 ML VIAL SUBCUT ×3 (07:39→21:58)
[2024-05-30] MEDS: Lactulose 20 GM/30 ML SOLUTION PO ×3 (07:40→14:03)
[2024-05-30] MEDS: Docusate Sodium 100 MG CAPSULE PO (07:40)
[2024-05-30] MEDS: Escitalopram Oxalate 20 MG TABLET PO (07:40)
[2024-05-30] MEDS: Sennosides/Docusate Sodium TABLET 1 TAB PO (07:40)
[2024-05-30] MEDS: glipiZIDE 5 MG TABLET PO ×2 (07:40→21:57)
[2024-05-30] MEDS: Metoprolol Tartrate 25 MG TABLET PO ×2 (07:41→21:57)
[2024-05-30] MEDS: polyethylene glycoL 3350 17 GM POWD.PACK PO (07:42)
--- NOTE | 2024-05-30 08:12 | PC.NURSE ---
Patient refuses bed or chair alarm,encouraged to ask for assistance,risks of falling explained
[2024-05-30] MEDS: levalbuterol HCL 1.25 MG/3 ML VIAL.NEB INHALE ×3 (11:20→20:34)
[2024-05-30 11:39] LABS: Glucose, Whole Blood 253 mg/dL (60-115)
--- NOTE | 2024-05-30 12:27 | HO.PM.IMPN ---
Subjective Subjective Date of Service: 05/31/24 Interval History: Complaining of persistent constipation, no bowel movement, tolerating diet no nausea, no vomiting, complaining of abdominal fullness and distention. Review of Systems All other system reviewed and are negative Physical Exam Vital Signs: Vital Signs: Last Vital Signs Temp 97.1 F 05/30/24 07:36 Pulse 79 05/30/24 11:21 Resp 18 05/30/24 11:21 BP 136/78 05/30/24 07:36 Pulse Ox 95 05/30/24 07:36 O2 Del Method Nasal Cannula 05/30/24 07:36 O2 Flow Rate 2 05/30/24 07:36 Oxygen Flow Rate 3 05/25/24 17:10 BMI result Body Mass Index 32.0 Const: Other: Gen: in no acute distress HEENT: sclera anicteric, moist mucus membranes Neck: supple Lungs: Right side diminished breath sounds, bilateral fine expiratory wheezing Heart: regular rate and rhythm, no murmurs Abd: soft, non-tender, obese, unchanged, bowel sounds audible Ext: no pitting edema Skin: warm/well-perfused Neuro: alert and oriented x3, no focal findings Psych: appropriate affect Objective Data Active Medications Acetaminophen (Acetaminophen 325 Mg Tablet) 650 mg PO Q6H PRN PRN Reason: Pain, Mild 1-3,fever,headache Atorvastatin Calcium (Atorvastatin Calcium 80 Mg Tablet) 80 mg PO BEDTIME [facility] Last Admin: 05/29/24 20:32 Dose: 80 mg Documented By: NAZASY Benzonatate (Benzonatate 100 Mg Capsule) 100 mg PO TID PRN PRN Reason: Cough Last Admin: 05/29/24 20:39 Dose: 100 mg Documented By: PHILLIP Calcium Carbonate (Calcium Carbonate 750 Mg Tab.Chew) 750 mg PO Q4H PRN PRN Reason: Heartburn Dextrose (Dextrose 50 % 25 Gm/50 Ml Syringe) 25 gm IVPUSH Q15M PRN; Protocol PRN Reason: per Hypoglycemia Standing Ord. Docusate Sodium (Docusate Sodium 100 Mg Capsule) 100 mg PO BID [facility] Last Admin: 05/30/24 07:40 Dose: 100 mg Documented By: MARKIE Enoxaparin Sodium (Enoxaparin Sodium 40 Mg/0.4 Ml Syringe) 40 mg SUBCUT Q24H [facility] Last Admin: 05/29/24 13:59 Dose: Not Given Documented By: BHAVESH Non-Admin Reason: Patient Refused Escitalopram Oxalate (Escitalopram Oxalate 20 Mg Tablet) 20 mg PO DAILY [facility] Last Admin: 05/30/24 07:40 Dose: 20 mg Documented By: MARKIE Glipizide (Glipizide 5 Mg Tablet) 5 mg PO BID [facility] Last Admin: 05/30/24 07:40 Dose: 5 mg Documented By: MARKIE Glucose (Glucose Gel 15 Gm Gel..Gram.) 15 gm PO Q15M PRN; Protocol PRN Reason: per Hypoglycemia Standing Ord. Azithromycin 500 mg/ Sodium (Chloride) 250 mls @ 125 mls/hr IV Q24H [facility] Last Infusion: 05/29/24 21:45 Dose: Infused Documented By: PHILLIP Insulin Human Lispro (Insulin Lispro 100 Unit/Ml 3 Ml Vial) 0 unit SUBCUT QIDACHS [facility]; Protocol Last Admin: 05/30/24 12:16 Dose: 10 unit Documented By: MARKIE Lactulose (Lactulose 20 Gm/30 Ml Solution) 20 gm PO DAILY [facility] Last Admin: 05/30/24 07:40 Dose: 20 gm Documented By: MARKIE Levalbuterol HCl (Levalbuterol Hcl 1.25 Mg/3 Ml Vial.Neb) 1.25 mg INHALE Q4H PRN PRN Reason: sob Last Admin: 05/28/24 05:40 Dose: 1.25 mg Documented By: VASHTI Levalbuterol HCl (Levalbuterol Hcl 1.25 Mg/3 Ml Vial.Neb) 1.25 mg INHALE RQ4H WHILE AWAKE [facility] Last Admin: 05/30/24 11:20 Dose: 1.25 mg Documented By: BLASCNatividad Lorazepam (Lorazepam 0.5 Mg Tablet) 0.5 mg PO BID PRN PRN Reason: anxiety Last Admin: 05/29/24 20:39 Dose: 0.5 mg Documented By: PHILLIP Melatonin (Melatonin 3 Mg Tablet) 6 mg PO BEDTIME PRN PRN Reason: Insomnia Methylprednisolone Sodium Succinate (Methylprednisolone Sod Succ 40 Mg/Ml Vial) 40 mg IVPUSH Q12H [facility] Last Admin: 05/30/24 01:47 Dose: 40 mg Documented By: PHILLIP Metoprolol Tartrate (Metoprolol Tartrate 25 Mg Tablet) 25 mg PO BID [facility]; Protocol Last Admin: 05/30/24 07:41 Dose: 25 mg Documented By: MARKIE Omeprazole (Omeprazole 20 Mg Capsule.Dr) 20 mg PO DAILY@0630 [facility] Last Admin: 05/30/24 05:54 Dose: 20 mg Documented By: PHILLIP Polyethylene Glycol (Polyethylene Glycol 3350 17 Gm Powd.Pack) 17 gm PO DAILY [facility] Last Admin: 05/30/24 07:42 Dose: 17 gm Documented By: MARKIE Senna/Docusate Sodium (Sennosides/Docusate Sodium Tablet) 1 tab PO DAILY [facility] Last Admin: 05/30/24 07:40 Dose: 1 tab Documented By: MARKIE Sodium Biphosphate/Sodium Phosphate (Sodium Phosphate,[place]-Dibasic 133 Ml Enema) 133 ml CO ONCE PRN PRN Reason: Constipation Sodium Chloride (0.9 % Sodium Chloride Flush 3 Ml Syringe) 3 ml IVFLUSH QSHIFT [facility] Last Admin: 05/30/24 07:41 Dose: 3 ml Documented By: MARKIE Labs 05/25/24 18:02 05/25/24 18:02 Labs: Laboratory Results - last 24 hr 05/29/24 05/29/24 05/29/24 15:55 16:32 20:36 POC Glucose 62 130 H 315 H 05/30/24 05/30/24 05/30/24 04:01 07:21 11:30 POC Glucose 140 H 213 H 253 H Assessment and Plan (1) Acute on chronic respiratory failure with hypoxia and hypercapnia: Status: Acute (2) Acute and chronic respiratory failure: Status: Acute (3) Chronic lung disease: Status: Acute Plan 74-year-old male with a PMH significant for?COPD, chronic hypoxemic and hypercarbic respiratory failure on 3L home O2, hx of left lung cancer s/p chemo and radiation 10 years ago, HLD, HTN, cav-umtoqft-iufeasaat type 2 diabetes, hepatic cirrhosis, hx of alcohol abuse disorder, LIBRADO on CPAP, and anxiety who presents to the ED with worsening SOB and difficulty breathing x2-3 days. Pt will be admitted to the hospital for treatment and further evaluation of acute on chronic hypoxic and hypercapnic respiratory failure in the setting of acute COPD exacerbation. Acute on chronic hypoxic and hypercapnic respiratory failure in the setting of acute COPD exacerbation Improving , less shortness of breath on arrival ABG with respiratory acidosis, treated with rescue BiPAP in ED, repeat VBG back to baseline. CXR negative for infiltrates, procalcitonin WNL at 0.03 Continue scheduled xopenex, iv Solu-Medrol 40mg bid, and benzonatate (do not tolerate DuoNeb due to shakiness) Continue Azithromycin started on 05/25 for pleiotropic effects Titrate supplemental O2 >90,on baseline 3L home O2 Encourage incentive spirometry/ Monitor respiratory status Chronic Constipation treated with lactulose with good response initially, again feel constipated. Continue MiraLax ,stool softeners scheduled, scheduled lactulose, senna, repeat lactulose recommend fluids and ambulation Aex-sxricfc-dlgosisyw type 2 diabetes on Glpizide and metformin at home Continue glipizide 5 mg b.i.d., metformin on hold, elevated blood sugars likely due to IV steroids, continue diabetic diet and adjust insulin sliding scale. GERD continue PPI Hypertension continue metoprolol 25 mg b.i.d. Mood disorder Continue lorazepam, Lexapro LIBRADO CPAP at night Grade 1 obesity recommend low-calorie diet. Full Code DVT Prophylaxis: Lovenox Pt will require continued inpatient hospitalization for treatment of?acute on chronic hypoxic and hypercapnic respiratory failure in the setting of acute COPD exacerbation ,on IV steroids, breathing treatments, and close monitoring of respiratory status. Quality Stroke Does the patient have a stroke diagnosis?: No VTE Prior VTE?: No VTE Risk Level:: Medical - moderate - high VTE Device Contraindication: Treatment Not Indicated VTE Drug Contraindication: N/A - Med Ordered
--- NOTE | 2024-05-30 15:12 | PC.NURSE ---
Patient refused Lovenox,risks explained,encouraged ambulation
[2024-05-30] MEDS: LORazepam 0.5 MG TABLET PO ×2 (15:16→22:02)
[2024-05-30 16:18] LABS: Glucose, Whole Blood 113 mg/dL (60-115)
[2024-05-30] MEDS: Azithromycin 500 MG in 0.9 % Sodium Chloride 250 ML 125 MG IV (18:20)
[2024-05-30 20:03] LABS: Glucose, Whole Blood 294 mg/dL (60-115)
[2024-05-30] MEDS: Docusate Sodium 100 MG CAPSULE 200 MG PO (21:57)
[2024-05-30] MEDS: Atorvastatin Calcium 80 MG TABLET PO (21:58)
[2024-05-31] VITALS (10 sets, daily range): BP systolic 111–174; BP diastolic 56–83; PULSE 65–82; RESP 16–18; TEMP 36–36.6; O2SAT 93–96
[2024-05-31] MEDS: methylPREDNISolone Sod Succ 40 MG/ML VIAL IVPUSH ×2 (01:41→13:48)
[2024-05-31] MEDS: Lactulose 20 GM/30 ML SOLUTION PO ×3 (04:38→12:22)
[2024-05-31] MEDS: Omeprazole 20 MG CAPSULE.DR PO (06:33)
[2024-05-31 07:29] LABS: Glucose, Whole Blood 236 mg/dL (60-115)
[2024-05-31] MEDS: Insulin Lispro 100 UNIT/ML 3 ML VIAL SUBCUT ×4 (07:51→20:21)
[2024-05-31] MEDS: Docusate Sodium 100 MG CAPSULE 200 MG PO ×2 (07:52→20:15)
[2024-05-31] MEDS: Metoprolol Tartrate 25 MG TABLET PO ×2 (07:52→20:16)
[2024-05-31] MEDS: Sennosides/Docusate Sodium TABLET 1 TAB PO (07:52)
[2024-05-31] MEDS: Escitalopram Oxalate 20 MG TABLET PO (07:52)
[2024-05-31] MEDS: glipiZIDE 5 MG TABLET PO ×2 (07:52→20:16)
[2024-05-31] MEDS: 0.9 % Sodium Chloride Flush 3 ML SYRINGE IVFLUSH ×3 (07:53→20:17)
[2024-05-31] MEDS: polyethylene glycoL 3350 17 GM POWD.PACK PO (07:54)
[2024-05-31] MEDS: levalbuterol HCL 1.25 MG/3 ML VIAL.NEB INHALE ×4 (08:39→19:39)
[2024-05-31 11:29] LABS: Glucose, Whole Blood 176 mg/dL (60-115)
--- NOTE | 2024-05-31 12:22 | PC.NURSE ---
lactulose dose administered per Dr. Anguiano request
[2024-05-31] MEDS: Sodium Phosphate,Mono-Dibasic 133 ML ENEMA PR (13:48)
--- NOTE | 2024-05-31 14:48 | PC.NURSE ---
Lactulose was administered and fleet enema given,patient sat on a commode ,passing flatus ,no BM,feels constipated ,dr. Anguiano made aware
--- NOTE | 2024-05-31 15:07 | HO.PM.IMPN ---
Subjective Subjective Date of Service: 05/31/24 Interval History: Complaining of persistent constipation, no bowel movement , despite laxatives and stool softeners [place] short of breath this morning, has been sitting on commode for long time passing flatus, with no bowel movement. Review of Systems All other system reviewed and are negative. Physical Exam Vital Signs: Vital Signs: Last Vital Signs Temp 97.8 F 05/31/24 07:15 Pulse 76 05/31/24 11:48 Resp 16 05/31/24 11:48 BP 131/71 05/31/24 08:05 Pulse Ox 93 05/31/24 07:15 O2 Del Method Room Air 05/31/24 07:15 O2 Flow Rate 2 05/31/24 07:08 Oxygen Flow Rate 3 05/25/24 17:10 BMI result Body Mass Index 32.0 Const: Other: Gen: in no acute distress HEENT: sclera anicteric, moist mucus membranes Neck: supple Lungs: Right side better air movement, bilateral fine expiratory wheezing Heart: regular rate and rhythm, no murmurs Abd: soft, non-tender, obese, unchanged, bowel sounds audible Ext: no pitting edema Skin: warm/well-perfused Neuro: alert and oriented x3, no focal findings Psych: appropriate affect Objective Data Active Medications Acetaminophen (Acetaminophen 325 Mg Tablet) 650 mg PO Q6H PRN PRN Reason: Pain, Mild 1-3,fever,headache Atorvastatin Calcium (Atorvastatin Calcium 80 Mg Tablet) 80 mg PO BEDTIME [facility] Last Admin: 05/30/24 21:58 Dose: 80 mg Documented By: MAKENZIE Benzonatate (Benzonatate 100 Mg Capsule) 100 mg PO TID PRN PRN Reason: Cough Last Admin: 05/29/24 20:39 Dose: 100 mg Documented By: TUMNIKKI Calcium Carbonate (Calcium Carbonate 750 Mg Tab.Chew) 750 mg PO Q4H PRN PRN Reason: Heartburn Dextrose (Dextrose 50 % 25 Gm/50 Ml Syringe) 25 gm IVPUSH Q15M PRN; Protocol PRN Reason: per Hypoglycemia Standing Ord. Docusate Sodium (Docusate Sodium 100 Mg Capsule) 200 mg PO BID [facility] Last Admin: 05/31/24 07:52 Dose: 200 mg Documented By: MARKIE Enoxaparin Sodium (Enoxaparin Sodium 40 Mg/0.4 Ml Syringe) 40 mg SUBCUT Q24H [facility] Last Admin: 05/31/24 14:44 Dose: Not Given Documented By: MARKIE Non-Admin Reason: Patient Refused Escitalopram Oxalate (Escitalopram Oxalate 20 Mg Tablet) 20 mg PO DAILY [facility] Last Admin: 05/31/24 07:52 Dose: 20 mg Documented By: MARKIE Glipizide (Glipizide 5 Mg Tablet) 5 mg PO BID [facility] Last Admin: 05/31/24 07:52 Dose: 5 mg Documented By: MARKIE Glucose (Glucose Gel 15 Gm Gel..Gram.) 15 gm PO Q15M PRN; Protocol PRN Reason: per Hypoglycemia Standing Ord. Azithromycin 500 mg/ Sodium (Chloride) 250 mls @ 125 mls/hr IV Q24H [facility] Last Infusion: 05/30/24 20:22 Dose: Infused Documented By: MAKENZIE Insulin Human Lispro (Insulin Lispro 100 Unit/Ml 3 Ml Vial) 0 unit SUBCUT QIDACHS [facility]; Protocol Last Admin: 05/31/24 12:21 Dose: 4 unit Documented By: MARKIE Lactulose (Lactulose 20 Gm/30 Ml Solution) 20 gm PO DAILY [facility] Last Admin: 05/31/24 07:51 Dose: 20 gm Documented By: MARKIE Lactulose (Lactulose 20 Gm/30 Ml Solution) 20 gm PO DAILY PRN PRN Reason: Constipation Last Admin: 05/30/24 14:03 Dose: 20 gm Documented By: MARKIE Comments: Patient requested for constipation Levalbuterol HCl (Levalbuterol Hcl 1.25 Mg/3 Ml Vial.Neb) 1.25 mg INHALE Q4H PRN PRN Reason: sob Last Admin: 05/28/24 05:40 Dose: 1.25 mg Documented By: VASHTI Levalbuterol HCl (Levalbuterol Hcl 1.25 Mg/3 Ml Vial.Neb) 1.25 mg INHALE RQ4H WHILE AWAKE [facility] Last Admin: 05/31/24 11:47 Dose: 1.25 mg Documented By: ELENA Lorazepam (Lorazepam 0.5 Mg Tablet) 0.5 mg PO BID PRN PRN Reason: anxiety Last Admin: 05/30/24 22:02 Dose: 0.5 mg Documented By: MAKENZIE Magnesium Hydroxide (Milk Of Magnesia 30 Ml Oral.Susp) 30 ml PO BID PRN PRN Reason: Constipation Melatonin (Melatonin 3 Mg Tablet) 6 mg PO BEDTIME PRN PRN Reason: Insomnia Methylprednisolone Sodium Succinate (Methylprednisolone Sod Succ 40 Mg/Ml Vial) 40 mg IVPUSH Q12H [facility] Last Admin: 05/31/24 13:48 Dose: 40 mg Documented By: MARKIE Metoprolol Tartrate (Metoprolol Tartrate 25 Mg Tablet) 25 mg PO BID [facility]; Protocol Last Admin: 05/31/24 07:52 Dose: 25 mg Documented By: MARKIE Omeprazole (Omeprazole 20 Mg Capsule.Dr) 20 mg PO DAILY@0630 [facility] Last Admin: 05/31/24 06:33 Dose: 20 mg Documented By: MAKENZIE Polyethylene Glycol (Polyethylene Glycol 3350 17 Gm Powd.Pack) 17 gm PO DAILY [facility] Last Admin: 05/31/24 07:54 Dose: 17 gm Documented By: MARKIE Senna/Docusate Sodium (Sennosides/Docusate Sodium Tablet) 1 tab PO DAILY [facility] Last Admin: 05/31/24 07:52 Dose: 1 tab Documented By: MARKIE Sodium Biphosphate/Sodium Phosphate (Sodium Phosphate,[place]-Dibasic 133 Ml Enema) 133 ml [place] ONCE [facility] Last Admin: 05/31/24 13:48 Dose: 133 ml Documented By: MARKIE Sodium Chloride (0.9 % Sodium Chloride Flush 3 Ml Syringe) 3 ml IVFLUSH QSHIFT [facility] Last Admin: 05/31/24 14:42 Dose: 3 ml Documented By: MARKIE Labs 05/25/24 18:02 05/25/24 18:02 Labs: Laboratory Results - last 24 hr 05/30/24 05/30/24 05/31/24 16:09 19:56 07:12 POC Glucose 113 294 H 236 H 05/31/24 11:20 POC Glucose 176 H Microbiology Microbiology Results: Microbiology 05/25/24 18:02 Blood Culture - Final Blood - Venous No growth after 5 days. 05/25/24 18:02 Blood Culture - Final Blood - Venous No growth after 5 days. Assessment and Plan (1) Acute on chronic respiratory failure with hypoxia and hypercapnia: Status: Acute Plan 74-year-old male with a PMH significant for?COPD, chronic hypoxemic and hypercarbic respiratory failure on 3L home O2, hx of left lung cancer s/p chemo and radiation 10 years ago, HLD, HTN, [id number] type 2 diabetes, hepatic cirrhosis, hx of alcohol abuse disorder, LIBRADO on CPAP, and anxiety who presents to the ED with worsening SOB and difficulty breathing x2-3 days. Pt will be admitted to the hospital for treatment and further evaluation of acute on chronic hypoxic and hypercapnic respiratory failure in the setting of acute COPD exacerbation. Acute on chronic hypoxic and hypercapnic respiratory failure in the setting of acute COPD exacerbation Improving , less shortness of breath on arrival ABG with respiratory acidosis, treated with rescue BiPAP in ED, repeat VBG back to baseline. CXR negative for infiltrates, procalcitonin WNL at 0.03 Continue scheduled xopenex, iv Solu-Medrol 40mg bid, and benzonatate (do not tolerate DuoNeb due to shakiness) dc Azithromycin started on 05/25 thru 05/31 Titrate supplemental O2 >90,on baseline 3L home O2 Encourage incentive spirometry/ Monitor respiratory status Chronic Constipation treated with lactulose with good response initially, again feel constipated. Continue MiraLax ,stool softeners scheduled, scheduled lactulose, senna, repeat lactulose, add Mag citrate, enema x1, recommend fluids and ambulation Oig-gqbjixm-[id number] type 2 diabetes on Glpizide and metformin at home Continue glipizide 5 mg b.i.d., metformin on hold, elevated blood sugars likely due to IV steroids, continue diabetic diet and adjust insulin sliding scale. GERD continue PPI Hypertension continue metoprolol 25 mg b.i.d. Mood disorder Continue lorazepam, Lexapro LIBRADO CPAP at night Grade 1 obesity recommend low-calorie diet. Full Code DVT Prophylaxis: Lovenox Pt will require continued inpatient hospitalization for treatment of?acute on chronic hypoxic and hypercapnic respiratory failure in the setting of acute COPD exacerbation ,on IV steroids, breathing treatments, and close monitoring of respiratory status. And due to persistent constipation. Quality Stroke Does the patient have a stroke diagnosis?: No VTE Prior VTE?: No VTE Risk Level:: Medical - moderate - high VTE Device Contraindication: Treatment Not Indicated VTE Drug Contraindication: N/A - Med Ordered
[2024-05-31] MEDS: Milk of Magnesia 30 ML ORAL.SUSP PO (15:09)
[2024-05-31] MEDS: Magnesium Citrate 300 ML SOLUTION PO (16:13)
[2024-05-31 16:18] LABS: Glucose, Whole Blood 161 mg/dL (60-115)
[2024-05-31] MEDS: LORazepam 0.5 MG TABLET PO ×2 (16:23→22:28)
[2024-05-31 20:14] LABS: Glucose, Whole Blood 196 mg/dL (60-115)
[2024-05-31] MEDS: Atorvastatin Calcium 80 MG TABLET PO (20:16)
--- NOTE | 2024-05-31 22:45 | PC.RT ---
Patient declining noc cpap use tonight.
[2024-06-01] VITALS (8 sets, daily range): BP systolic 117–125; BP diastolic 55–61; PULSE 68–94; RESP 15–19; TEMP 36.1–36.4; O2SAT 90–98
[2024-06-01] MEDS: methylPREDNISolone Sod Succ 40 MG/ML VIAL IVPUSH ×2 (02:44→14:21)
[2024-06-01] MEDS: Omeprazole 20 MG CAPSULE.DR PO (06:02)
[2024-06-01] MEDS: levalbuterol HCL 1.25 MG/3 ML VIAL.NEB INHALE ×4 (07:48→19:36)
[2024-06-01 08:04] LABS: Glucose, Whole Blood 198 mg/dL (60-115)
[2024-06-01] MEDS: Insulin Lispro 100 UNIT/ML 3 ML VIAL SUBCUT ×3 (08:14→20:48)
[2024-06-01] MEDS: polyethylene glycoL 3350 17 GM POWD.PACK PO (08:14)
[2024-06-01] MEDS: 0.9 % Sodium Chloride Flush 3 ML SYRINGE IVFLUSH ×3 (08:15→20:51)
[2024-06-01] MEDS: LORazepam 0.5 MG TABLET PO ×2 (08:16→22:36)
[2024-06-01] MEDS: Docusate Sodium 100 MG CAPSULE 200 MG PO ×2 (08:16→20:48)
[2024-06-01] MEDS: Metoprolol Tartrate 25 MG TABLET PO ×2 (08:16→20:47)
[2024-06-01] MEDS: Escitalopram Oxalate 20 MG TABLET PO (08:16)
[2024-06-01] MEDS: glipiZIDE 5 MG TABLET PO ×2 (08:17→20:48)
[2024-06-01] MEDS: Sennosides/Docusate Sodium TABLET 1 TAB PO (08:17)
--- NOTE | 2024-06-01 10:46 | P.CONGS_ITS ---
History of Present Illness Consult details Consult date: 06/01/24 Requesting physician: Sadi Anguiano Narrative: Mr. Fitz Reed is a 74-year-old male with a PMH significant for COPD, chronic hypoxemic and hypercarbic respiratory failure on 3L home O2, hx of left lung cancer s/p chemo and radiation 10 years ago, HLD, HTN, smd-[id number]-[id number] type 2 diabetes, hepatic cirrhosis, LIBRADO on CPAP who initially presented to the ED with worsening SOB and difficulty breathing for a few days. He was subsequently admitted to the hospitalist service for treatment and further evaluation of acute on chronic hypoxic and hypercapnic respiratory failure in the setting of acute COPD exacerbation. He has a history of chronic constipation initially treated with lactulose with good response however has not had BM in 4 days. General surgery was therefore consulted. He is passing flatus. He reports bloating and some occasional nausea without vomiting. He is on sennakot, milk of magnesia, lactulose, fleet enemas, mag citrate was ordered yesterday. Review of chart shows positive cologuard in 01/29. He was deemed too high risk for anesthesia and therefore CT colonography was ordered however this has not been performed yet. He denies change in bowel habits prior to admission, hematochezia, melena. Had similar episode in 2022. Review of Systems 2 Review of Systems: Yes all other systems are reviewed and are negative [facility] Past Medical History Medical History Acute on chronic respiratory failure with hypoxia and hypercapnia Positive colorectal cancer screening using Cologuard test Respiratory failure with hypoxia and hypercapnia Bilateral carotid artery disease CAD (coronary artery disease) Anxiety and depression Constipation Anemia Chronic respiratory failure with hypoxia and hypercapnia Radiation fibrosis of lung HTN (hypertension) Dyslipidemia History of pneumonia Bacteremia due to Enterococcus COPD, severe Diabetes mellitus with hyperglycemia, without long-term current use of insulin Urinary incontinence Asthma Lung cancer Skin cancer Family History Family History Father Medical history non-contributory Mother Medical history non-contributory Unknown family medical history Lung collapse Brother No problems noted. Brother No problems noted. Son Substance use disorder Son No problems noted. Daughter No problems noted. Sister No problems noted. Sister No problems noted. Sister No problems noted. Sister No problems noted. Other HTN (hypertension) Surgical History Surgical History Hx of heart artery stent History of esophagogastroduodenoscopy (EGD) Hx of colonoscopy Social History Social History Household Members: Family Household Members Other:: grandson Housing: House Are you a primary field care coordinator to a significant other at home: No Do you presently have visiting nurse or other home services: No Alcohol intake: never Comment: pt encouraged to ring buck for some assistance when ambulating Patient Tobacco Use Status: Former Tobacco user Tobacco use type: Cigarette e-Cigarette/Vaping Use: Never Used Advance Directives Date on File: 06/08/22 service: No Current occupational status: retired Cognitive needs: No Hearing needs: No Vision needs: No Meds Allergies Allergy/AdvReac Type Severity Reaction Status Date / Time fluticasone furoate Allergy Intermediate Rash Verified 05/25/24 17:13 [From Trelegy Ellipta] vilanterol Allergy Intermediate Rash Verified 05/25/24 17:13 [From Trelegy Ellipta] umeclidinium Allergy Unknown Hives Verified 05/25/24 17:13 [Incruse Ellipta] furosemide [From Lasix] AdvReac Intermediate Hallucinati Verified 05/25/24 17:13 ons Active Medications: Current Medications Acetaminophen (Acetaminophen 325 Mg Tablet) 650 mg PO Q6H PRN PRN Reason: Pain, Mild 1-3,fever,headache Atorvastatin Calcium (Atorvastatin Calcium 80 Mg Tablet) 80 mg PO BEDTIME [facility] Last Admin: 05/31/24 20:16 Dose: 80 mg Benzonatate (Benzonatate 100 Mg Capsule) 100 mg PO TID PRN PRN Reason: Cough Last Admin: 05/29/24 20:39 Dose: 100 mg Calcium Carbonate (Calcium Carbonate 750 Mg Tab.Chew) 750 mg PO Q4H PRN PRN Reason: Heartburn Dextrose (Dextrose 50 % 25 Gm/50 Ml Syringe) 25 gm IVPUSH Q15M PRN; Protocol PRN Reason: per Hypoglycemia Standing Ord. Docusate Sodium (Docusate Sodium 100 Mg Capsule) 200 mg PO BID [facility] Last Admin: 06/01/24 08:16 Dose: 200 mg Enoxaparin Sodium (Enoxaparin Sodium 40 Mg/0.4 Ml Syringe) 40 mg SUBCUT Q24H [facility] Last Admin: 05/31/24 14:44 Dose: Not Given Escitalopram Oxalate (Escitalopram Oxalate 20 Mg Tablet) 20 mg PO DAILY [facility] Last Admin: 06/01/24 08:16 Dose: 20 mg Glipizide (Glipizide 5 Mg Tablet) 5 mg PO BID [facility] Last Admin: 06/01/24 08:17 Dose: 5 mg Glucose (Glucose Gel 15 Gm Gel..Gram.) 15 gm PO Q15M PRN; Protocol PRN Reason: per Hypoglycemia Standing Ord. Insulin Human Lispro (Insulin Lispro 100 Unit/Ml 3 Ml Vial) 0 unit SUBCUT QIDACHS [facility]; Protocol Last Admin: 06/01/24 08:14 Dose: 4 unit Lactulose (Lactulose 20 Gm/30 Ml Solution) 20 gm PO DAILY [facility] Last Admin: 05/31/24 12:22 Dose: 20 gm Lactulose (Lactulose 20 Gm/30 Ml Solution) 20 gm PO DAILY PRN PRN Reason: Constipation Last Admin: 05/30/24 14:03 Dose: 20 gm Levalbuterol HCl (Levalbuterol Hcl 1.25 Mg/3 Ml Vial.Neb) 1.25 mg INHALE Q4H PRN PRN Reason: sob Last Admin: 05/28/24 05:40 Dose: 1.25 mg Levalbuterol HCl (Levalbuterol Hcl 1.25 Mg/3 Ml Vial.Neb) 1.25 mg INHALE RQ4H WHILE AWAKE [facility] Last Admin: 06/01/24 07:48 Dose: 1.25 mg Lorazepam (Lorazepam 0.5 Mg Tablet) 0.5 mg PO BID PRN PRN Reason: anxiety Last Admin: 06/01/24 08:16 Dose: 0.5 mg Magnesium Hydroxide (Milk Of Magnesia 30 Ml Oral.Susp) 30 ml PO BID PRN PRN Reason: Constipation Last Admin: 05/31/24 15:09 Dose: 30 ml Melatonin (Melatonin 3 Mg Tablet) 6 mg PO BEDTIME PRN PRN Reason: Insomnia Methylprednisolone Sodium Succinate (Methylprednisolone Sod Succ 40 Mg/Ml Vial) 40 mg IVPUSH Q12H [facility] Last Admin: 06/01/24 02:44 Dose: 40 mg Metoprolol Tartrate (Metoprolol Tartrate 25 Mg Tablet) 25 mg PO BID [facility]; Protocol Last Admin: 06/01/24 08:16 Dose: 25 mg Omeprazole (Omeprazole 20 Mg Capsule.Dr) 20 mg PO DAILY@0630 [facility] Last Admin: 06/01/24 06:02 Dose: 20 mg Polyethylene Glycol (Polyethylene Glycol 3350 17 Gm Powd.Pack) 17 gm PO DAILY [facility] Last Admin: 06/01/24 08:14 Dose: 17 gm Senna/Docusate Sodium (Sennosides/Docusate Sodium Tablet) 1 tab PO DAILY [facility] Last Admin: 06/01/24 08:17 Dose: 1 tab Sodium Biphosphate/Sodium Phosphate (Sodium Phosphate,[place]-Dibasic 133 Ml Enema) 133 ml [place] ONCE [facility] Last Admin: 05/31/24 13:48 Dose: 133 ml Sodium Chloride (0.9 % Sodium Chloride Flush 3 Ml Syringe) 3 ml IVFLUSH QSHIFT [facility] Last Admin: 06/01/24 08:15 Dose: 3 ml Home Medications ?Medication ?Instructions ?Recorded ?Confirmed ?Last Taken ?Type budesonide-formoterol HFA 160 2 puff inhalation DAILY 03/14/21 05/26/24 05/25/24 History mcg-4.5 mcg/actuation aerosol inhaler (Symbicort) calcium 600 mg (as 1 tab PO DAILY 08/04/21 05/26/24 05/25/24 History carbonate)-vitamin D3 10 mcg (400 unit) tablet Oxygen Home Use 06/14/22 05/26/24 Unknown History azithromycin 500 mg tablet 500 mg PO MOWEFR 05/26/24 05/26/24 05/25/24 History lactulose 10 gram/15 mL oral 10 g PO DAILY PRN Constipation 05/26/24 05/26/24 05/25/24 History solution (Constulose) Physical Exam 2 Vital Signs: Vital Signs: Last Vital Signs Temp 97.1 F 06/01/24 07:16 Pulse 83 06/01/24 07:51 Resp 18 06/01/24 07:51 BP 119/60 06/01/24 07:16 Pulse Ox 94 06/01/24 07:16 O2 Del Method Nasal Cannula 06/01/24 07:16 O2 Flow Rate 2.0 06/01/24 07:16 Oxygen Flow Rate 3 05/25/24 17:10 BMI result Body Mass Index 32.0 Const: General: comfortable, no acute distress and alert O rientation/consciousness: patient oriented x3 Resp: Effort & Inspection: not tachypneic and no use of accessory muscles GI: Other: protuberant abdomen, distended but soft, upper abdomen mildly tender Inspection: Yes distended Palpation (GI): Soft to palpation, no guarding and not rigid Percussion: Yes tympanic to percussion Skin: General skin exam: no rashes or lesions noted Neuro: General: patient oriented x3 Results Labs 05/25/24 18:02 05/25/24 18:02 Labs: Abnormal lab results 05/31/24 05/31/24 05/31/24 Range/Units 11:20 16:12 19:38 POC Glucose 176 H 161 H 196 H (60-115) mg/dL 06/01/24 Range/Units 08:01 POC Glucose 198 H (60-115) mg/dL Urine 05/25/24 Range/Units 20:04 Urine Color Yellow Urine Appearance Clear Urine pH 6.0 (5.0-9.0) Ur Specific [place] 1.015 (1.005-1.025) Urine Protein Negative (Neg-Trace) mg/dL Urine Glucose (UA) >=1000 H (Negative) mg/dL All other labs normal. Imaging Abdominal x-ray: report reviewed and image reviewed Assessment and Plan (1) Positive colorectal cancer screening using Cologuard test: Status: Acute (2) Acute on chronic respiratory failure with hypoxia and hypercapnia: Status: Acute Plan 74 year old male with multiple medical comorbdities admitted with acute on chronic hypoxic and hypercapnic respiratory failure in the setting of acute COPD exacerbation now with constipation not responding to bowel regimen. His abd is benign but distended with mild upper abd tenderness. Given the positive cologuard test without any recent imaging, will order CT scan abd/pelvis with oral contrast to r/o any obstructing pathology. Can continue current bowel regimen. Patient comfortable with plan. Further plan dependent on imaging. Procedures Date of Service Date of Service: 06/01/24
[2024-06-01 11:10] LABS: Glucose, Whole Blood 304 mg/dL (60-115)
--- NOTE | 2024-06-01 11:13 | MHC.CM.PN ---
Per MD rounds Patient is not ready for discharge r/t constipation. Medications to support bowel function have been ordered. DP home self care. He will arrange for transportation home from his .
[2024-06-01] MEDS: iohexoL 350 MG/ML 75 ML INFUS..BTL 85 ML IV (15:29)
[2024-06-01] MEDS: Barium Sulfate Oral (Berry) 450 ML ORAL.SUSP 900 ML PO (15:30)
--- NOTE | 2024-06-01 15:52 | HO.PM.IMPN ---
Subjective Subjective Date of Service: 06/01/24 Interval History: Complaining of persistent constipation/abdominal distention/had a very small bowel movement last night, mild abdominal discomfort, tolerating diet no vomiting, patient is on Senokot, lactulose scheduled and as needed, milk of Mag, MiraLax, Fleet enemas, Colace 200 mg b.i.d., Mag citrate but despite of all bowel meds no significant relief in constipation noted. Shortness of breaths improving, no fevers no chills. Review of Systems All other system reviewed and are negative Physical Exam Vital Signs: Vital Signs: Last Vital Signs Temp 97.4 F 06/01/24 15:26 Pulse 80 06/01/24 15:39 Resp 18 06/01/24 15:39 BP 121/58 L 06/01/24 15:26 Pulse Ox 93 06/01/24 15:26 O2 Del Method Nasal Cannula 06/01/24 15:26 O2 Flow Rate 2 06/01/24 15:26 Oxygen Flow Rate 3 05/25/24 17:10 BMI result Body Mass Index 32.0 Const: Other: Gen: in no acute distress HEENT: sclera anicteric, moist mucus membranes Neck: supple Lungs: Right side better air movement, bilateral fine expiratory wheezing Heart: regular rate and rhythm, no murmurs Abd: soft, obese, bowel sounds audible, mild tenderness left upper quadrant, no guarding, no rigidity Ext: no pitting edema Skin: warm/well-perfused Neuro: alert and oriented x3, no focal findings Psych: appropriate affect Objective Data Active Medications Acetaminophen (Acetaminophen 325 Mg Tablet) 650 mg PO Q6H PRN PRN Reason: Pain, Mild 1-3,fever,headache Atorvastatin Calcium (Atorvastatin Calcium 80 Mg Tablet) 80 mg PO BEDTIME [facility] Last Admin: 05/31/24 20:16 Dose: 80 mg Documented By: NATALSA Benzonatate (Benzonatate 100 Mg Capsule) 100 mg PO TID PRN PRN Reason: Cough Last Admin: 05/29/24 20:39 Dose: 100 mg Documented By: PHILLIP Calcium Carbonate (Calcium Carbonate 750 Mg Tab.Chew) 750 mg PO Q4H PRN PRN Reason: Heartburn Dextrose (Dextrose 50 % 25 Gm/50 Ml Syringe) 25 gm IVPUSH Q15M PRN; Protocol PRN Reason: per Hypoglycemia Standing Ord. Docusate Sodium (Docusate Sodium 100 Mg Capsule) 200 mg PO BID [facility] [place] Last Admin: 06/01/24 08:16 Dose: 200 mg Documented By: BHAVESH Enoxaparin Sodium (Enoxaparin Sodium 40 Mg/0.4 Ml Syringe) 40 mg SUBCUT Q24H [facility] [place] Last Admin: 06/01/24 14:22 Dose: Not Given Documented By: BHAVESH Non-Admin Reason: Patient Refused Escitalopram Oxalate (Escitalopram Oxalate 20 Mg Tablet) 20 mg PO DAILY [facility] Last Admin: 06/01/24 08:16 Dose: 20 mg Documented By: BHAVESH Glipizide (Glipizide 5 Mg Tablet) 5 mg PO BID [facility] Last Admin: 06/01/24 08:17 Dose: 5 mg Documented By: BHAVESH Glucose (Glucose Gel 15 Gm Gel..Gram.) 15 gm PO Q15M PRN; Protocol PRN Reason: per Hypoglycemia Standing Ord. Insulin Human Lispro (Insulin Lispro 100 Unit/Ml 3 Ml Vial) 0 unit SUBCUT QIDACHS [facility]; Protocol Last Admin: 06/01/24 12:08 Dose: 12 unit Documented By: BHAVESH Lactulose (Lactulose 20 Gm/30 Ml Solution) 20 gm PO DAILY [facility] Last Admin: 05/31/24 07:51 Dose: 20 gm Documented By: MARKIE Lactulose (Lactulose 20 Gm/30 Ml Solution) 20 gm PO DAILY PRN PRN Reason: Constipation Last Admin: 05/30/24 14:03 Dose: 20 gm Documented By: MARKIE Comments: Patient requested for constipation Levalbuterol HCl (Levalbuterol Hcl 1.25 Mg/3 Ml Vial.Neb) 1.25 mg INHALE Q4H PRN PRN Reason: sob Last Admin: 05/28/24 05:40 Dose: 1.25 mg Documented By: VASHTI Levalbuterol HCl (Levalbuterol Hcl 1.25 Mg/3 Ml Vial.Neb) 1.25 mg INHALE RQ4H WHILE AWAKE [facility] [place] Last Admin: 06/01/24 15:37 Dose: 1.25 mg Documented By: ROLY Magnesium Hydroxide (Milk Of Magnesia 30 Ml Oral.Susp) 30 ml PO BID PRN PRN Reason: Constipation Last Admin: 05/31/24 15:09 Dose: 30 ml Documented By: MARKIE Melatonin (Melatonin 3 Mg Tablet) 6 mg PO BEDTIME PRN PRN Reason: Insomnia Methylprednisolone Sodium Succinate (Methylprednisolone Sod Succ 40 Mg/Ml Vial) 40 mg IVPUSH Q12H [facility] [place] Last Admin: 06/01/24 14:21 Dose: 40 mg Documented By: BHAVESH Metoprolol Tartrate (Metoprolol Tartrate 25 Mg Tablet) 25 mg PO BID [facility] [place]; Protocol Last Admin: 06/01/24 08:16 Dose: 25 mg Documented By: BHAVESH Omeprazole (Omeprazole 20 Mg Capsule.) 20 mg PO DAILY@0630 [facility] [place] Last Admin: 06/01/24 06:02 Dose: 20 mg Documented By: ANGELA Polyethylene Glycol (Polyethylene Glycol 3350 17 Gm Powd.Pack) 17 gm PO DAILY [facility] [place] Last Admin: 06/01/24 08:14 Dose: 17 gm Documented By: BHAVESH Senna/Docusate Sodium (Sennosides/Docusate Sodium Tablet) 1 tab PO DAILY [facility] [place] Last Admin: 06/01/24 08:17 Dose: 1 tab Documented By: BHAVESH Sodium Biphosphate/Sodium Phosphate (Sodium Phosphate,[place]-Dibasic 133 Ml Enema) 133 ml [place] ONCE [facility] [place] Last Admin: 05/31/24 13:48 Dose: 133 ml Documented By: MARKIE Sodium Chloride (0.9 % Sodium Chloride Flush 3 Ml Syringe) 3 ml IVFLUSH QSHIFT [facility] [place] Last Admin: 06/01/24 08:15 Dose: 3 ml Documented By: BHAVESH Labs 05/25/24 18:02 05/25/24 18:02 Labs: Laboratory Results - last 24 hr 05/31/24 05/31/24 06/01/24 16:12 19:38 08:01 POC Glucose 161 H 196 H 198 H 06/01/24 11:06 POC Glucose 304 H Assessment and Plan (1) Acute on chronic respiratory failure with hypoxia and hypercapnia: Status: Acute Plan 74-year-old male with a PMH significant for?COPD, chronic hypoxemic and hypercarbic respiratory failure on 3L home O2, hx of left lung cancer s/p chemo and radiation 10 years ago, HLD, HTN, [id number] type 2 diabetes, hepatic cirrhosis, hx of alcohol abuse disorder, LIBRADO on CPAP, and anxiety who presents to the ED with worsening SOB and difficulty breathing x2-3 days. Pt will be admitted to the hospital for treatment and further evaluation of acute on chronic hypoxic and hypercapnic respiratory failure in the setting of acute COPD exacerbation. Acute on chronic hypoxic and hypercapnic respiratory failure in the setting of acute COPD exacerbation Improving , shortness of breath at baseline on arrival ABG with respiratory acidosis, treated with rescue BiPAP in ED, repeat VBG back to baseline. CXR negative for infiltrates, procalcitonin WNL at 0.03 on scheduled xopenex, iv Solu-Medrol 40mg bid, and benzonatate (do not tolerate DuoNeb due to shakiness) dc Azithromycin started on 05/25 thru 05/31 Change IV Solu-Medrol to by mouth prednisone at am Titrate supplemental O2 >90,on baseline 3L home O2 Encourage incentive spirometry/ Monitor respiratory status Chronic Constipation treated with lactulose with good response initially, again feel constipated. Continue MiraLax ,stool softeners scheduled, scheduled lactulose, senna, milk of Mag Due to persistent symptoms will consult General surgery [id number] type 2 diabetes on Glpizide and metformin at home Continue glipizide 5 mg b.i.d., metformin on hold, elevated blood sugars likely due to IV steroids, continue diabetic diet and adjust insulin sliding scale. GERD continue PPI Hypertension continue metoprolol 25 mg b.i.d. Mood disorder Continue lorazepam, Lexapro LIBRADO CPAP at night Grade 1 obesity recommend low-calorie diet. Full Code DVT Prophylaxis: Lovenox Pt will require continued inpatient hospitalization for treatment of?acute on chronic hypoxic and hypercapnic respiratory failure in the setting of acute COPD exacerbation ,onsteroids, breathing treatments, and close monitoring of respiratory status. And due to persistent constipation requiring expert consultation.. Quality Stroke Does the patient have a stroke diagnosis?: No VTE Prior VTE?: No VTE Risk Level:: Medical - moderate - high VTE Device Contraindication: Treatment Not Indicated VTE Drug Contraindication: N/A - Med Ordered
[2024-06-01 16:19] LABS: Glucose, Whole Blood 146 mg/dL (60-115)
[2024-06-01] MEDS: Milk of Magnesia 30 ML ORAL.SUSP PO (16:41)
[2024-06-01 20:25] LABS: Glucose, Whole Blood 242 mg/dL (60-115)
[2024-06-01] MEDS: Atorvastatin Calcium 80 MG TABLET PO (20:48)
[2024-06-02] VITALS (8 sets, daily range): BP systolic 124–138; BP diastolic 57–67; PULSE 72–94; RESP 16–18; TEMP 36–36.8; O2SAT 90–99
[2024-06-02] MEDS: methylPREDNISolone Sod Succ 40 MG/ML VIAL IVPUSH (02:24)
[2024-06-02] MEDS: Omeprazole 20 MG CAPSULE.DR PO (06:11)
[2024-06-02 06:28] LABS: Hematocrit 35.3 % (42.0-52.0); Hemoglobin 10.8 g/dl (14.0-18.0); Mean Corpuscular HGB Conc 30.6 g/dl (31.0-36.0); Mean Corpuscular Hemoglobin 28.3 pg (27.0-33.0); Mean Corpuscular Volume 92.4 fL (80.0-98.0); Mean Platelet Volume 10.1 fL (9.4-12.4); Platelet Count 210 X10*3/uL (160-400); Red Blood Count 3.82 X10*6/uL (4.60-5.80); Red Cell Distribution Width 13.8 % (11.0-16.0); White Blood Count 7.7 X10*3/uL (4.8-10.8)
[2024-06-02 07:03] LABS: Blood Urea Nitrogen 21 mg/dL (9-16); Calcium 8.8 mg/dL (8.4-10.2); Estimated Glomerular Filt Rate > 60; Glucose Random 162 mg/dL (60-115)
[2024-06-02 07:06] LABS: Anion Gap 13 (12-20); Carbon Dioxide 38 mmol/L (22-29); Chloride 92 mmol/L (96-108); Potassium 4.6 mmol/L (3.3-5.1); Sodium 138 mmol/L (135-145)
[2024-06-02 07:32] LABS: Glucose, Whole Blood 223 mg/dL (60-115)
[2024-06-02] MEDS: levalbuterol HCL 1.25 MG/3 ML VIAL.NEB INHALE ×4 (07:44→19:53)
[2024-06-02] MEDS: Insulin Lispro 100 UNIT/ML 3 ML VIAL SUBCUT ×4 (08:06→21:30)
[2024-06-02] MEDS: Escitalopram Oxalate 20 MG TABLET PO (08:07)
[2024-06-02] MEDS: Sennosides/Docusate Sodium TABLET 1 TAB PO (08:07)
[2024-06-02] MEDS: glipiZIDE 5 MG TABLET PO ×2 (08:07→21:30)
[2024-06-02] MEDS: polyethylene glycoL 3350 17 GM POWD.PACK PO (08:07)
[2024-06-02] MEDS: Docusate Sodium 100 MG CAPSULE 200 MG PO (08:07)
[2024-06-02] MEDS: Metoprolol Tartrate 25 MG TABLET PO ×2 (08:08→21:30)
[2024-06-02] MEDS: predniSONE 10 MG TABLET 30 MG PO (08:08)
[2024-06-02] MEDS: 0.9 % Sodium Chloride Flush 3 ML SYRINGE IVFLUSH ×3 (08:09→21:30)
[2024-06-02] MEDS: Lactulose 20 GM/30 ML SOLUTION PO (08:09)
--- NOTE | 2024-06-02 08:13 | P.PNGS_ITS ---
Subjective Subjective Date of Service: 06/02/24 Interval history: No new complaints, only small BM reported. Physical Exam 2 Vital Signs: Vital Signs: Last Vital Signs Temp 97.4 F 06/02/24 07:20 Pulse 77 06/02/24 07:47 Resp 16 06/02/24 07:47 BP 130/57 L 06/02/24 07:20 Pulse Ox 91 L 06/02/24 07:20 O2 Del Method Nasal Cannula 06/02/24 07:20 O2 Flow Rate 2.0 06/02/24 07:20 Oxygen Flow Rate 3 05/25/24 17:10 BMI result Body Mass Index 32.0 Const: General: comfortable, no acute distress and alert Resp: Effort & Inspection: normal respiratory effort GI: Other: protuberant abdomen, distended but soft, upper abdomen mildly tender Inspection: Yes distended Palpation (GI): Soft to palpation, no guarding and not rigid Percussion: Yes tympanic to percussion Skin: General skin exam: no rashes or lesions noted Objective Data Active Medications Acetaminophen (Acetaminophen 325 Mg Tablet) 650 mg PO Q6H PRN PRN Reason: Pain, Mild 1-3,fever,headache Atorvastatin Calcium (Atorvastatin Calcium 80 Mg Tablet) 80 mg PO BEDTIME [facility] Last Admin: 06/01/24 20:48 Dose: 80 mg Documented By: ANGELA Benzonatate (Benzonatate 100 Mg Capsule) 100 mg PO TID PRN PRN Reason: Cough Last Admin: 05/29/24 20:39 Dose: 100 mg Documented By: PHILLIP Calcium Carbonate (Calcium Carbonate 750 Mg Tab.Chew) 750 mg PO Q4H PRN PRN Reason: Heartburn Dextrose (Dextrose 50 % 25 Gm/50 Ml Syringe) 25 gm IVPUSH Q15M PRN; Protocol PRN Reason: per Hypoglycemia Standing Ord. Docusate Sodium (Docusate Sodium 100 Mg Capsule) 200 mg PO BID [facility] Last Admin: 06/01/24 20:48 Dose: 200 mg Documented By: ANGELA Enoxaparin Sodium (Enoxaparin Sodium 40 Mg/0.4 Ml Syringe) 40 mg SUBCUT Q24H [facility] Last Admin: 06/01/24 14:22 Dose: Not Given Documented By: BHAVESH Non-Admin Reason: Patient Refused Escitalopram Oxalate (Escitalopram Oxalate 20 Mg Tablet) 20 mg PO DAILY [facility] Last Admin: 06/01/24 08:16 Dose: 20 mg Documented By: BHAVESH Glipizide (Glipizide 5 Mg Tablet) 5 mg PO BID [facility] Last Admin: 06/01/24 20:48 Dose: 5 mg Documented By: ANGELA Glucose (Glucose Gel 15 Gm Gel..Gram.) 15 gm PO Q15M PRN; Protocol PRN Reason: per Hypoglycemia Standing Ord. Insulin Human Lispro (Insulin Lispro 100 Unit/Ml 3 Ml Vial) 0 unit SUBCUT QIDACHS [facility]; Protocol Last Admin: 06/01/24 20:48 Dose: 8 unit Documented By: ANGELA Lactulose (Lactulose 20 Gm/30 Ml Solution) 20 gm PO DAILY [facility] Last Admin: 05/31/24 07:51 Dose: 20 gm Documented By: MARKIE Lactulose (Lactulose 20 Gm/30 Ml Solution) 20 gm PO DAILY PRN PRN Reason: Constipation Last Admin: 05/30/24 14:03 Dose: 20 gm Documented By: MARKIE Comments: Patient requested for constipation Levalbuterol HCl (Levalbuterol Hcl 1.25 Mg/3 Ml Vial.Neb) 1.25 mg INHALE Q4H PRN PRN Reason: sob Last Admin: 05/28/24 05:40 Dose: 1.25 mg Documented By: VASHTI Levalbuterol HCl (Levalbuterol Hcl 1.25 Mg/3 Ml Vial.Neb) 1.25 mg INHALE RQ4H WHILE AWAKE [facility] Last Admin: 06/02/24 07:44 Dose: 1.25 mg Documented By: ROLY Lorazepam (Lorazepam 0.5 Mg Tablet) 0.5 mg PO Q12H PRN PRN Reason: anxiety/restlessness Last Admin: 06/01/24 22:36 Dose: 0.5 mg Documented By: ANGELA Magnesium Hydroxide (Milk Of Magnesia 30 Ml Oral.Susp) 30 ml PO BID PRN PRN Reason: Constipation Last Admin: 06/01/24 16:41 Dose: 30 ml Documented By: BHAVESH Melatonin (Melatonin 3 Mg Tablet) 6 mg PO BEDTIME PRN PRN Reason: Insomnia Metoprolol Tartrate (Metoprolol Tartrate 25 Mg Tablet) 25 mg PO BID [facility]; Protocol Last Admin: 06/01/24 20:47 Dose: 25 mg Documented By: ANGELA Omeprazole (Omeprazole 20 Mg Capsule.) 20 mg PO DAILY@0630 [facility] Last Admin: 06/02/24 06:11 Dose: 20 mg Documented By: ANGELA Polyethylene Glycol (Polyethylene Glycol 3350 17 Gm Powd.Pack) 17 gm PO DAILY [facility] Last Admin: 06/01/24 08:14 Dose: 17 gm Documented By: BHAVESH Prednisone (Prednisone 10 Mg Tablet) 30 mg PO DAILY [facility] Senna/Docusate Sodium (Sennosides/Docusate Sodium Tablet) 1 tab PO DAILY [facility] Last Admin: 06/01/24 08:17 Dose: 1 tab Documented By: BHAVESH Sodium Biphosphate/Sodium Phosphate (Sodium Phosphate,[place]-Dibasic 133 Ml Enema) 133 ml [place] ONCE [facility] Last Admin: 05/31/24 13:48 Dose: 133 ml Documented By: MARKIE Sodium Chloride (0.9 % Sodium Chloride Flush 3 Ml Syringe) 3 ml IVFLUSH QSHIFT [facility] Last Admin: 06/01/24 20:51 Dose: 3 ml Documented By: ANGELA Labs 06/02/24 05:58 06/02/24 05:58 Labs: Laboratory Results - last 24 hr 06/01/24 06/01/24 06/01/24 11:06 16:13 20:21 MCV MCH MCHC RDW Plt Count MPV Absolute Nucleated RBC Nucleated RBC % (auto) Anion Gap Estim Creat Clear Calc Estimated GFR POC Glucose 304 H 146 H 242 H Random Glucose Calcium 06/02/24 06/02/24 05:58 07:21 MCV 92.4 MCH 28.3 MCHC 30.6 L RDW 13.8 Plt Count 210 MPV 10.1 Absolute Nucleated RBC 0.000 Nucleated RBC % (auto) 0.0 Anion Gap 13 Estim Creat Clear Calc 84.0 Estimated GFR > 60 POC Glucose 223 H Random Glucose 162 H Calcium 8.[address] scan - abdomen: Radiologist's impression: Impressions Abdomen/Pelvis CT 06/01/24 15:02 IMPRESSION: Very large amount of stool throughout the colon. Mild shouldered appearance involving the sigmoid colon. Colonic masses cannot be excluded on the basis of this examination. Colonoscopy is recommended. Electronically signed by: Finn Shea MD 06/01/2024 04:03 PM [facility] Procedures Date of Service Date of Service: 06/02/24 Progress Note: A&P Assessment and plan (1) Positive colorectal cancer screening using Cologuard test: Status: Acute Plan CT results reviewed with patient this morning. Shouldering noted in the sigmoid colon, malignancy cannot be excluded. Patient previously evaluated by Dr. Ballard, ? sigmoidoscopy. Time Spent With Patient Time: Total time managing care of this patient today ____ minutes. Quality Stroke Does the patient have a stroke diagnosis?: No VTE Prior VTE?: No VTE Risk Level:: Medical - moderate - high VTE Device Contraindication: Treatment Not Indicated VTE Drug Contraindication: N/A - Med Ordered
[2024-06-02 11:36] LABS: Glucose, Whole Blood 284 mg/dL (60-115)
[2024-06-02] MEDS: Magnesium Citrate 300 ML SOLUTION PO (13:55)
--- NOTE | 2024-06-02 14:44 | P.PNIM_ITS ---
Subjective Subjective Date of Service: 06/02/24 Interval History: Persistent constipation/CT abdomen showed very large amount of stool throughout the colon, mild shoulder appearance involving the sigmoid colon, colonic masses can not be excluded, colonoscopy recommended. No worsening shortness of breath, no chest pain, no headache, no dizziness tolerating diet no vomiting, mild nausea. Review of Systems All other system reviewed and are negative. Physical Exam 2 Vital Signs: Vital Signs: Last Vital Signs Temp 97.4 F 06/02/24 07:20 Pulse 74 06/02/24 11:00 Resp 18 06/02/24 11:00 BP 130/57 L 06/02/24 07:20 Pulse Ox 91 L 06/02/24 07:20 O2 Del Method Nasal Cannula 06/02/24 07:20 O2 Flow Rate 2.0 06/02/24 07:20 Oxygen Flow Rate 3 05/25/24 17:10 BMI result Body Mass Index 32.0 Const: Other: Gen: in no acute distress HEENT: sclera anicteric, moist mucus membranes Neck: supple Lungs: Good air movement, few expiratory wheeze Heart: regular rate and rhythm, no murmurs Abd: soft, obese, bowel sounds audible, mild tenderness left upper quadrant, no guarding, no rigidity Ext: no pitting edema Skin: warm/well-perfused Neuro: alert and oriented x3, no focal findings Psych: appropriate affect Objective Data Active Medications Acetaminophen (Acetaminophen 325 Mg Tablet) 650 mg PO Q6H PRN PRN Reason: Pain, Mild 1-3,fever,headache Atorvastatin Calcium (Atorvastatin Calcium 80 Mg Tablet) 80 mg PO BEDTIME [facility] Last Admin: 06/01/24 20:48 Dose: 80 mg Documented By: ANGELA Benzonatate (Benzonatate 100 Mg Capsule) 100 mg PO TID PRN PRN Reason: Cough Last Admin: 05/29/24 20:39 Dose: 100 mg Documented By: PHILLIP Calcium Carbonate (Calcium Carbonate 750 Mg Tab.Chew) 750 mg PO Q4H PRN PRN Reason: Heartburn Dextrose (Dextrose 50 % 25 Gm/50 Ml Syringe) 25 gm IVPUSH Q15M PRN; Protocol PRN Reason: per Hypoglycemia Standing Ord. Docusate Sodium (Docusate Sodium 100 Mg Capsule) 200 mg PO BID [facility] Last Admin: 06/02/24 08:07 Dose: 200 mg Documented By: KYLEIGH Enoxaparin Sodium (Enoxaparin Sodium 40 Mg/0.4 Ml Syringe) 40 mg SUBCUT Q24H [facility] Last Admin: 06/01/24 14:22 Dose: Not Given Documented By: BHAVESH Non-Admin Reason: Patient Refused Escitalopram Oxalate (Escitalopram Oxalate 20 Mg Tablet) 20 mg PO DAILY [facility] Last Admin: 06/02/24 08:07 Dose: 20 mg Documented By: KYLEIGH Glipizide (Glipizide 5 Mg Tablet) 5 mg PO BID [facility] Last Admin: 06/02/24 08:07 Dose: 5 mg Documented By: KYLEIGH Glucose (Glucose Gel 15 Gm Gel..Gram.) 15 gm PO Q15M PRN; Protocol PRN Reason: per Hypoglycemia Standing Ord. Insulin Human Lispro (Insulin Lispro 100 Unit/Ml 3 Ml Vial) 0 unit SUBCUT QIDACHS [facility]; Protocol Last Admin: 06/02/24 11:43 Dose: 10 unit Documented By: KYLEIGH Lactulose (Lactulose 20 Gm/30 Ml Solution) 20 gm PO DAILY PRN PRN Reason: Constipation Last Admin: 05/30/24 14:03 Dose: 20 gm Documented By: MARKIE Comments: Patient requested for constipation Levalbuterol HCl (Levalbuterol Hcl 1.25 Mg/3 Ml Vial.Neb) 1.25 mg INHALE Q4H PRN PRN Reason: sob Last Admin: 05/28/24 05:40 Dose: 1.25 mg Documented By: VASHTI Levalbuterol HCl (Levalbuterol Hcl 1.25 Mg/3 Ml Vial.Neb) 1.25 mg INHALE RQ4H WHILE AWAKE [facility] Last Admin: 06/02/24 10:59 Dose: 1.25 mg Documented By: ROLY Lorazepam (Lorazepam 0.5 Mg Tablet) 0.5 mg PO Q12H PRN PRN Reason: anxiety/restlessness Last Admin: 06/01/24 22:36 Dose: 0.5 mg Documented By: ANGELA Magnesium Hydroxide (Milk Of Magnesia 30 Ml Oral.Susp) 30 ml PO BID PRN PRN Reason: Constipation Last Admin: 06/01/24 16:41 Dose: 30 ml Documented By: HO.WILLETA Melatonin (Melatonin 3 Mg Tablet) 6 mg PO BEDTIME PRN PRN Reason: Insomnia Metoprolol Tartrate (Metoprolol Tartrate 25 Mg Tablet) 25 mg PO BID [facility]; Protocol Last Admin: 06/02/24 08:08 Dose: 25 mg Documented By: KYLEIGH Omeprazole (Omeprazole 20 Mg Capsule.) 20 mg PO DAILY@0630 [facility] Last Admin: 06/02/24 06:11 Dose: 20 mg Documented By: ANGELA Polyethylene Glycol (Polyethylene Glycol 3350 17 Gm Powd.Pack) 17 gm PO DAILY [facility] Last Admin: 06/02/24 08:07 Dose: 17 gm Documented By: KYLEIGH Prednisone (Prednisone 10 Mg Tablet) 30 mg PO DAILY [facility] Last Admin: 06/02/24 08:08 Dose: 30 mg Documented By: KYLEIGH Senna/Docusate Sodium (Sennosides/Docusate Sodium Tablet) 1 tab PO DAILY [facility] Last Admin: 06/02/24 08:07 Dose: 1 tab Documented By: KYLEIGH Sodium Biphosphate/Sodium Phosphate (Sodium Phosphate,[place]-Dibasic 133 Ml Enema) [address] ONCE [facility] Last Admin: 05/31/24 13:48 Dose: 133 ml Documented By: MARKIE Sodium Chloride (0.9 % Sodium Chloride Flush 3 Ml Syringe) 3 ml IVFLUSH QSHIFT [facility] Last Admin: 06/02/24 08:09 Dose: 3 ml Documented By: KYLEIGH Labs 06/02/24 05:58 06/02/24 05:58 Labs: Laboratory Results - last 24 hr 06/01/24 06/01/24 06/02/24 16:13 20:21 05:58 MCV 92.4 MCH 28.3 MCHC 30.6 L RDW 13.8 Plt Count 210 MPV 10.1 Absolute Nucleated RBC 0.000 Nucleated RBC % (auto) 0.0 Anion Gap 13 Estim Creat Clear Calc 84.0 Estimated GFR > 60 POC Glucose 146 H 242 H Random Glucose 162 H Calcium 8.8 06/02/24 06/02/24 07:21 11:30 MCV MCH MCHC RDW Plt Count MPV Absolute Nucleated RBC Nucleated RBC % (auto) Anion Gap Estim Creat Clear Calc Estimated GFR POC Glucose 223 H 284 H Random Glucose Calcium Assessment and Plan (1) Acute on chronic respiratory failure with hypoxia and hypercapnia: Status: Acute Plan 74-year-old male with a PMH significant for?COPD, chronic hypoxemic and hypercarbic respiratory failure on 3L home O2, hx of left lung cancer s/p chemo and radiation 10 years ago, HLD, HTN, [id number] type 2 diabetes, hepatic cirrhosis, hx of alcohol abuse disorder, LIBRADO on CPAP, and anxiety who presents to the ED with worsening SOB and difficulty breathing x2-3 days. Pt will be admitted to the hospital for treatment and further evaluation of acute on chronic hypoxic and hypercapnic respiratory failure in the setting of acute COPD exacerbation. Acute on chronic hypoxic and hypercapnic respiratory failure in the setting of acute COPD exacerbation Improving , shortness of breath at baseline on arrival ABG with respiratory acidosis, treated with rescue BiPAP in ED, repeat VBG back to baseline. CXR negative for infiltrates, procalcitonin WNL at 0.03 on scheduled xopenex, iv Solu-Medrol 40mg bid, and benzonatate (do not tolerate DuoNeb due to shakiness) s/p Azithromycin started on 05/25 thru 05/31 Change IV Solu-Medrol to by mouth prednisone Titrate supplemental O2 >90,on baseline 3L home O2 Encourage incentive spirometry/ Monitor respiratory status Chronic Constipation treated with lactulose with good response initially, again feel constipated. Continue MiraLax ,stool softeners scheduled, scheduled lactulose, senna, milk of Mag CT abdomen and pelvis showed persistent constipation, underlying mass not excluded Seen by Dr. Adhikari will undergo sigmoidoscopy at a.m. [facility]/Clear liquid diet today/NPO after midnight Imh-hxldqgn-zepnrgbzc type 2 diabetes on Glpizide and metformin at home Continue glipizide 5 mg b.i.d., metformin on hold, elevated blood sugars likely due to IV steroids, continue diabetic diet and insulin sliding scale. GERD continue PPI Hypertension continue metoprolol 25 mg b.i.d. Mood disorder Continue lorazepam, Lexapro LIBRADO CPAP at night Grade 1 obesity recommend low-calorie diet. Full Code DVT Prophylaxis: Lovenox Pt will require continued inpatient hospitalization for treatment of?acute on chronic hypoxic and hypercapnic respiratory failure in the setting of acute COPD exacerbation ,on steroids, breathing treatments, and close monitoring of respiratory status. And due to persistent constipation requiring sigmoidoscopy. Quality Stroke Does the patient have a stroke diagnosis?: No VTE Prior VTE?: No VTE Risk Level:: Medical - moderate - high VTE Device Contraindication: Treatment Not Indicated VTE Drug Contraindication: N/A - Med Ordered
[2024-06-02] MEDS: LORazepam 0.5 MG TABLET PO (15:37)
[2024-06-02 16:41] LABS: Glucose, Whole Blood 165 mg/dL (60-115)
--- NOTE | 2024-06-02 16:41 | P.CNGI_ITS ---
History of Present Illness Data of Consult Service Date: 06/02/24 Primary Care Provider: Anne-Marie Muro MD HPI Reason for consult: abn bowel habit 74-year-old male with a hx of ?COPD, chronic hypoxemic and hypercarbic respiratory failure on 3L home O2, hx of left lung cancer s/p chemo and radiation 10 years ago, HLD, HTN, tsc-[id number]-nobyshlkd type 2 diabetes, hepatic cirrhosis, hx of alcohol abuse disorder, LIBRADO on CPAP, and anxiety who I am seeing for assessment for abn bowle habit Patient was initially admitted [facility] COPD exacerbation which was treated with nebs, sterodis, ABX, BiPAP and is now back to baseline. During stay he mentioned 1 month of worsening constipation and straining stool with change in bowel shape. He never had this before and no change in meds or addition of new meds. Denies nausea, vomiting, abdominal pain. CT was done revealing significant stool burden and dilated loops of large bowel, mostly proximal to the distal sigmoid. last egd, colo about 10-15 yrs ago and normal per his report Pt saw dr dunham for pos cologuard but due to his advanced COPD was felt to be high risk for colonoscopy and ct colonography was discussed as an option Review of Systems 2 Review of Systems: Constitutional : No Weight loss, No Fever, No Chills ENT/Mouth : No sore throat, No Rhinorrhea Eyes: No Swelling, No Redness Cardiovascular : No Chest Pain, + SOB, No Edema Respiratory : + Cough, No Sputum, No Wheezing Gastrointestinal : see HPI Genitourinary : NO Dysuria, No Urinary Frequency, No Hematuria, No Urgency Musculoskeletal : + joint pain, No Myalgias, No Joint Swelling Skin : No Skin Lesions, No rash Neuro : No Weakness, No Numbness, No Dizziness, No Headache Psych : No Anxiety/Panic, No Depression Heme/Lymph: No Bruising, No Lymphadenopathy Endocrine : No Polyuria, No Polydipsia All other systems reviewed and are negative. [facility] Past Medical History Medical History (Updated 06/02/24 @ 16:50 by Atul Gomez MD) Acute on chronic respiratory failure with hypoxia and hypercapnia Positive colorectal cancer screening using Cologuard test Respiratory failure with hypoxia and hypercapnia Bilateral carotid artery disease CAD (coronary artery disease) Anxiety and depression Constipation Anemia Chronic respiratory failure with hypoxia and hypercapnia Radiation fibrosis of lung HTN (hypertension) Dyslipidemia History of pneumonia Bacteremia due to Enterococcus COPD, severe Diabetes mellitus with hyperglycemia, without long-term current use of insulin Urinary incontinence Asthma Lung cancer Skin cancer Family History Family History Father Medical history non-contributory Mother Medical history non-contributory Unknown family medical history Lung collapse Brother No problems noted. Brother No problems noted. Son Substance use disorder Son No problems noted. Daughter No problems noted. Sister No problems noted. Sister No problems noted. Sister No problems noted. Sister No problems noted. Other HTN (hypertension) Surgical History Surgical History Hx of heart artery stent History of esophagogastroduodenoscopy (EGD) Hx of colonoscopy Social History Social History Household Members: Family Household Members Other:: grandson Housing: House Are you a primary housekeeper caregiver to a significant other at home: No Do you presently have visiting nurse or other home services: No Alcohol intake: never Comment: pt encouraged to ring buck for some assistance when ambulating Patient Tobacco Use Status: Former Tobacco user Tobacco use type: Cigarette e-Cigarette/Vaping Use: Never Used Advance Directives Date on File: 06/08/22 service: No Current occupational status: retired Cognitive needs: No Hearing needs: No Vision needs: No Meds Allergies Allergy/AdvReac Type Severity Reaction Status Date / Time fluticasone furoate Allergy Intermediate Rash Verified 05/25/24 17:13 [From Trelegy Ellipta] vilanterol Allergy Intermediate Rash Verified 05/25/24 17:13 [From Trelegy Ellipta] umeclidinium Allergy Unknown Hives Verified 05/25/24 17:13 [Incruse Ellipta] furosemide [From Lasix] AdvReac Intermediate Hallucinati Verified 05/25/24 17:13 ons Active Medications: Current Medications Acetaminophen (Acetaminophen 325 Mg Tablet) 650 mg PO Q6H PRN PRN Reason: Pain, Mild 1-3,fever,headache Atorvastatin Calcium (Atorvastatin Calcium 80 Mg Tablet) 80 mg PO BEDTIME [facility] Last Admin: 06/01/24 20:48 Dose: 80 mg Benzonatate (Benzonatate 100 Mg Capsule) 100 mg PO TID PRN PRN Reason: Cough Last Admin: 05/29/24 20:39 Dose: 100 mg Calcium Carbonate (Calcium Carbonate 750 Mg Tab.Chew) 750 mg PO Q4H PRN PRN Reason: Heartburn Dextrose (Dextrose 50 % 25 Gm/50 Ml Syringe) 25 gm IVPUSH Q15M PRN; Protocol PRN Reason: per Hypoglycemia Standing Ord. Enoxaparin Sodium (Enoxaparin Sodium 40 Mg/0.4 Ml Syringe) 40 mg SUBCUT Q24H [facility] Last Admin: 06/02/24 15:38 Dose: Not Given Escitalopram Oxalate (Escitalopram Oxalate 20 Mg Tablet) 20 mg PO DAILY [facility] Last Admin: 06/02/24 08:07 Dose: 20 mg Glipizide (Glipizide 5 Mg Tablet) 5 mg PO BID [facility] Last Admin: 06/02/24 08:07 Dose: 5 mg Glucose (Glucose Gel 15 Gm Gel..Gram.) 15 gm PO Q15M PRN; Protocol PRN Reason: per Hypoglycemia Standing Ord. Insulin Human Lispro (Insulin Lispro 100 Unit/Ml 3 Ml Vial) 0 unit SUBCUT QIDACHS [facility]; Protocol Last Admin: 06/02/24 11:43 Dose: 10 unit Lactulose (Lactulose 20 Gm/30 Ml Solution) 20 gm PO DAILY PRN PRN Reason: Constipation Last Admin: 05/30/24 14:03 Dose: 20 gm Levalbuterol HCl (Levalbuterol Hcl 1.25 Mg/3 Ml Vial.Neb) 1.25 mg INHALE Q4H PRN PRN Reason: sob Last Admin: 05/28/24 05:40 Dose: 1.25 mg Levalbuterol HCl (Levalbuterol Hcl 1.25 Mg/3 Ml Vial.Neb) 1.25 mg INHALE RQ4H WHILE AWAKE [facility] Last Admin: 06/02/24 15:17 Dose: 1.25 mg Lorazepam (Lorazepam 0.5 Mg Tablet) 0.5 mg PO Q12H PRN PRN Reason: anxiety/restlessness Last Admin: 06/02/24 15:37 Dose: 0.5 mg Magnesium Hydroxide (Milk Of Magnesia 30 Ml Oral.Susp) 30 ml PO BID PRN PRN Reason: Constipation Last Admin: 06/01/24 16:41 Dose: 30 ml Melatonin (Melatonin 3 Mg Tablet) 6 mg PO BEDTIME PRN PRN Reason: Insomnia Metoprolol Tartrate (Metoprolol Tartrate 25 Mg Tablet) 25 mg PO BID [facility]; Protocol Last Admin: 06/02/24 08:08 Dose: 25 mg Omeprazole (Omeprazole 20 Mg Capsule.Dr) 20 mg PO DAILY@0630 [facility] Last Admin: 06/02/24 06:11 Dose: 20 mg Polyethylene Glycol (Polyethylene Glycol 3350 17 Gm Powd.Pack) 17 gm PO DAILY [facility] Last Admin: 06/02/24 08:07 Dose: 17 gm Prednisone (Prednisone 10 Mg Tablet) 30 mg PO DAILY [facility] Last Admin: 06/02/24 08:08 Dose: 30 mg Sodium Biphosphate/Sodium Phosphate (Sodium Phosphate,[place]-Dibasic 133 Ml Enema) 133 ml [place] ONCE [facility] Last Admin: 05/31/24 13:48 Dose: 133 ml Sodium Chloride (0.9 % Sodium Chloride Flush 3 Ml Syringe) 3 ml IVFLUSH QSHIFT [facility] Last Admin: 06/02/24 08:09 Dose: 3 ml Home Medications ?Medication ?Instructions ?Recorded ?Confirmed ?Last Taken ?Type budesonide-formoterol HFA 160 2 puff inhalation DAILY 03/14/21 05/26/24 05/25/24 History mcg-4.5 mcg/actuation aerosol inhaler (Symbicort) calcium 600 mg (as 1 tab PO DAILY 08/04/21 05/26/24 05/25/24 History carbonate)-vitamin D3 10 mcg (400 unit) tablet Oxygen Home Use 06/14/22 05/26/24 Unknown History azithromycin 500 mg tablet 500 mg PO MOWEFR 05/26/24 05/26/24 05/25/24 History lactulose 10 gram/15 mL oral 10 g PO DAILY PRN Constipation 05/26/24 05/26/24 05/25/24 History solution (Constulose) Physical Exam 2 Vital Signs: Vital Signs: Last Vital Signs Temp 97.2 F 06/02/24 15:35 Pulse 73 06/02/24 15:35 Resp 16 06/02/24 15:35 BP 124/58 L 06/02/24 15:35 Pulse Ox 96 06/02/24 15:35 O2 Del Method Nasal Cannula 06/02/24 15:35 O2 Flow Rate 2 06/02/24 15:35 Oxygen Flow Rate 3 05/25/24 17:10 BMI result Body Mass Index 32.0 EXAM: GENERAL: The patient is obese, on O2 VITAL SIGNS:see workflow HEENT: Nonicteric sclerae, PERRLA, EOMI. Oropharynx clear. Moist mucous membranes. Conjunctivae appear well perfused. No thyroid mass. CHEST: Chest wall is nontender. HEART: Regular rate and rhythm without murmurs. LUNGS: poor a/e bilaterlly ABDOMEN: Soft, positive bowel sounds, nontender, no organomegaly.no flank tenderness SKIN: No rash, no excessive bruising, petechiae, or purpura. NEUROLOGIC: Cranial nerves II-XII intact without motor/sensory deficit. Psych: normal affect Results Labs 06/02/24 05:58 06/02/24 05:58 Labs: Short CBC 06/02/24 Range/Units 05:58 WBC 7.7 (4.8-10.8) X10*3/uL Hgb 10.8 L (14.0-18.0) g/dl Hct 35.3 L (42.0-52.0) % Plt Count 210 (160-400) X10*3/uL BMP 06/02/24 05:58 Sodium 138 Potassium 4.6 Chloride 92 L Carbon Dioxide 38 H BUN 21 H Creatinine 0.81 Calcium 8.8 Microbiology Microbiology Results: Microbiology 05/25/24 18:02 Blood - Venous Blood Culture - Final No growth after 5 days. 05/25/24 18:02 Blood - Venous Blood Culture - Final No growth after [address] scan - abdomen: Attestation: I personally reviewed and interpreted this imaging study as follows: (stool burden ++ with dilated large loop bowels, mild) Assessment and Plan (1) Abnormal bowel habits: Status: Acute Plan 1/ Abn bowel habit with recent pos cologuard, need to r/o left sided lesion or stricture, He is high risk but is willing to do sigmoidoscopy without sedation and he is ablt to lie on his side without isseus plaN; 1// sigmoidoscopy but do bowel prep as for colonoscopy, can cont wth dulcolax Procedures Date of Service Date of Service: 06/02/24
[2024-06-02] MEDS: PEG 3350/Na Sulf,Bicarb,Cl/KCL 4,000 ML SOLN.RECON 4000 ML PO (18:26)
[2024-06-02 20:28] LABS: Glucose, Whole Blood 247 mg/dL (60-115)
[2024-06-02] MEDS: Atorvastatin Calcium 80 MG TABLET PO (21:30)
[2024-06-03] VITALS (11 sets, daily range): BP systolic 107–133; BP diastolic 55–68; PULSE 63–104; RESP 16–20; TEMP 36.2–36.8; O2SAT 90–99
[2024-06-03 01:04] LABS: Glucose, Whole Blood 42 mg/dL (60-115)
[2024-06-03] MEDS: Dextrose 50 % 25 GM/50 ML SYRINGE IVPUSH (01:04)
[2024-06-03 01:25] LABS: Glucose, Whole Blood 176 mg/dL (60-115)
--- NOTE | 2024-06-03 01:28 | PC.NURSE ---
0100 pt rang the buck because he felt weak and sweaty.we checked his blood sugar it was 42.pt was given 1 amp of D50 IV.repeat blood sugar 15 minutes later was 176. notified.
[2024-06-03 01:33] LABS: Glucose, Whole Blood 155 mg/dL (60-115)
[2024-06-03 03:10] LABS: Glucose, Whole Blood 111 mg/dL (60-115)
[2024-06-03] MEDS: Omeprazole 20 MG CAPSULE.DR PO (05:37)
[2024-06-03 05:49] LABS: Glucose, Whole Blood 112 mg/dL (60-115)
[2024-06-03 07:23] LABS: Glucose, Whole Blood 118 mg/dL (60-115)
[2024-06-03] MEDS: levalbuterol HCL 1.25 MG/3 ML VIAL.NEB INHALE ×2 (07:33→19:55)
[2024-06-03] MEDS: glipiZIDE 5 MG TABLET PO ×2 (07:49→21:20)
[2024-06-03] MEDS: Escitalopram Oxalate 20 MG TABLET PO (07:49)
[2024-06-03] MEDS: predniSONE 10 MG TABLET 30 MG PO (07:50)
--- NOTE | 2024-06-03 08:05 | PC.NURSE ---
Addendum entered by Roberto Simon RN 06/03/24 18:38: report given to OR prior to pt leaving unit. Pt arrived and Md informed of pt's diet change. fluids adjusted as ordered. Original Note: Informed MD this morning with Miky Wong, [address] - BP 109/55 HR 66. he is fidelina for procedure this afternoon. Do you want me to hold Lopressor 25mg or administer? Also, his sugar was low last night and he is NPO. ? fluids to prevent hypoglycemia, ty
[2024-06-03] MEDS: LORazepam 0.5 MG TABLET PO ×2 (08:14→21:20)
--- NOTE | 2024-06-03 08:41 | MHC.CM.PN ---
Patient is NPO for sigmoidoscopy scheduled for today. Patient tolerated the bowel prep. Good results reported. DP home self-care. Patients will provide transportation home.
[2024-06-03] MEDS: Dextrose 5 % and 0.9 % NaCl 1,000 ML 80 ML IVCONT (09:04)
[2024-06-03 11:31] LABS: Glucose, Whole Blood 156 mg/dL (60-115)
[2024-06-03] MEDS: Insulin Lispro 100 UNIT/ML 3 ML VIAL SUBCUT ×3 (11:51→22:38)
[2024-06-03] MEDS: Lactated Ringers 1,000 ML 80 ML IVCONT (13:37)
[2024-06-03] MEDS: Sodium Phosphate,Mono-Dibasic 133 ML ENEMA PR (13:50)
--- NOTE | 2024-06-03 14:13 | P.PNGI_ITS ---
Subjective Subjective Date of Service: 06/03/24 Interval History: good results with laxatives, passing stools no abdominal pain no blood in stool no nausea or vomiting Critical Care Time (minutes): 0 Physical Exam 2 Vital Signs: Vital Signs: Last Vital Signs Temp 97.9 F 06/03/24 13:43 Pulse 77 06/03/24 13:43 Resp 18 06/03/24 13:43 BP 111/60 06/03/24 13:43 Pulse Ox 98 06/03/24 13:43 O2 Del Method Room Air 06/03/24 13:43 O2 Flow Rate 3.0 06/03/24 08:00 Oxygen Flow Rate 3 05/25/24 17:10 BMI result Body Mass Index 32.0 EXAM: GENERAL: The patient is obese VITAL SIGNS:see workflow HEENT: Nonicteric sclerae, PERRLA, EOMI. Oropharynx clear. Moist mucous membranes. Conjunctivae appear well perfused. No thyroid mass. CHEST: Chest wall is nontender. HEART: Regular rate and rhythm without murmurs. LUNGS:reduced A/E ABDOMEN: Soft, positive bowel sounds, nontender, no organomegaly.no flank tenderness SKIN: No rash, no excessive bruising, petechiae, or purpura. NEUROLOGIC: Cranial nerves II-XII intact without motor/sensory deficit. Psych: normal affect Objective Data Labs 06/02/24 05:58 06/02/24 05:58 Labs: Laboratory Results - last 24 hr 06/02/24 06/02/24 06/03/24 16:38 20:24 00:59 POC Glucose 165 H 247 H 42 L* 06/03/24 06/03/24 06/03/24 01:18 01:28 03:02 POC Glucose 176 H 155 H 111 06/03/24 06/03/24 06/03/24 05:45 07:19 11:23 POC Glucose 112 118 H 156 H Microbiology Microbiology Results: Microbiology 05/25/24 18:02 Blood - Venous Blood Culture - Final No growth after 5 days. 05/25/24 18:02 Blood - Venous Blood Culture - Final No growth after 5 days. Procedures Date of Service Date of Service: 06/03/24 Progress Note: A&P Assessment and plan (1) Abnormal bowel habits: Status: Acute Plan 1/ constipation, possible sigmoid stricture, PLAN: 1/ felx sig today without sedation given high risk with anesthesia Time Spent With Patient Time: Total time managing care of this patient today ____ minutes. Quality Stroke Does the patient have a stroke diagnosis?: No VTE Prior VTE?: No VTE Risk Level:: Medical - moderate - high VTE Device Contraindication: Treatment Not Indicated VTE Drug Contraindication: N/A - Med Ordered
--- NOTE | 2024-06-03 14:15 | MHC.SHP ---
Pre-Procedural Eval Section A - 24 Hr Update-Section A only Date of Service: 06/03/24 The patient is an INPATIENT: Yes The patient has been examined within 24 hours of the surgical procedure. The History & Physical has been completed within 30 days and I have reviewed it.: Yes Section B - Complete if H&P > 30 days Chief Complaint: COPD Exacerbation Allergies: Allergies Allergy/AdvReac Type Severity Reaction Status Date / Time fluticasone furoate Allergy Intermediate Rash Verified 05/25/24 17:13 [From Trelegy Ellipta] vilanterol Allergy Intermediate Rash Verified 05/25/24 17:13 [From Trelegy Ellipta] umeclidinium Allergy Unknown Hives Verified 05/25/24 17:13 [Incruse Ellipta] furosemide [From Lasix] AdvReac Intermediate Hallucinati Verified 05/25/24 17:13 ons Plan Diagnosis/Plan: Unchanged I have reviewed the history and physical and performed a pertinent physical examination on my patient. No changes have occurred unless specified. Time Spent With Patient Time: Total time managing care of this patient today ____ minutes.
--- NOTE | 2024-06-03 15:03 | W.PM.OPN ---
Operative Note Operative Note Date of Service: 06/03/24 Narrative: Procedure Description: sigmoidoscopy Indication: abn imaging Anesthesia: MAC Sigmoidoscopy Instrument: pediatric scope Colonoscopy Monitoring: Vital signs and clinical assessment, continuous EKG monitoring, Pulse oximetry, Carbon Dioxide monitoring and blood pressure monitoring were done throughout the procedure. Procedure: The patient was placed in the left lateral decubitis position and pre-procedure medications were administered. After a digital rectal examination of the ano-rectum, the video colonoscope was inserted into the rectum and advanced through the colon to the sigmoid colon The scope was slowly withdrawn in a retrograde panoramic fashion and the colon mucosa was carefully examined . Findings and interventions are described below. Procedure Difficulty: mdoerate Findings: Ascendign colon,-distal - normal Transverse Colon- 4-6 mm sessile polyp removed with cold forceps Sigmoid Colon: moderate dvierticulosis, 4-5 sessile polyps 8-10 mm removed with cold snare Rectum: Normal , retroflexion with small internal hemorrhoids - 4 sessile polyps 8-9 mm removed with cold snare Anorectum - normal Colon preparation: fair Impression and Post Procedure Diagnosis: diverticulosis colon polyps internal hemorrhoids Plan: high fiber diet schedueled laxative regimen, f/u after get polyp results Above findings were reviewed with the patient and relevant handouts were provided if indicated.
--- NOTE | 2024-06-03 16:06 | P.PNIM_ITS ---
Subjective Subjective Date of Service: 06/03/24 Interval History: NPO for sigmoidoscopy had multiple bowel movements brown-colored, denies abdominal pain, no nausea, no vomiting. Review of Systems All other system reviewed and are negative Physical Exam 2 Vital Signs: Vital Signs: Last Vital Signs Temp 97.7 F 06/03/24 15:33 Pulse 80 06/03/24 15:33 Resp 18 06/03/24 15:33 BP 133/63 06/03/24 15:33 Pulse Ox 95 06/03/24 15:33 O2 Del Method Nasal Cannula 06/03/24 15:33 O2 Flow Rate 3 06/03/24 15:33 Oxygen Flow Rate 3 05/25/24 17:10 BMI result Body Mass Index 32.0 Const: Other: Gen: in no acute distress HEENT: sclera anicteric, moist mucus membranes Neck: supple Lungs: Good air movement, few expiratory wheeze Heart: regular rate and rhythm, no murmurs Abd: soft, obese, bowel sounds audible, non tender, no guarding, no rigidity Ext: no pitting edema Skin: warm/well-perfused Neuro: alert and oriented x3, no focal findings Psych: appropriate affect Objective Data Active Medications Acetaminophen (Acetaminophen 325 Mg Tablet) 650 mg PO Q6H PRN PRN Reason: Pain, Mild 1-3,fever,headache Atorvastatin Calcium (Atorvastatin Calcium 80 Mg Tablet) 80 mg PO BEDTIME [facility] Last Admin: 06/02/24 21:30 Dose: 80 mg Documented By: EM Benzonatate (Benzonatate 100 Mg Capsule) 100 mg PO TID PRN PRN Reason: Cough Last Admin: 05/29/24 20:39 Dose: 100 mg Documented By: TUMASY Calcium Carbonate (Calcium Carbonate 750 Mg Tab.Chew) 750 mg PO Q4H PRN PRN Reason: Heartburn Dextrose (Dextrose 50 % 25 Gm/50 Ml Syringe) 25 gm IVPUSH Q15M PRN; Protocol PRN Reason: per Hypoglycemia Standing Ord. Last Admin: 06/03/24 01:04 Dose: 25 gm Documented By: EM Enoxaparin Sodium (Enoxaparin Sodium 40 Mg/0.4 Ml Syringe) 40 mg SUBCUT Q24H [facility] Last Admin: 06/03/24 15:35 Dose: Not Given Documented By: MAURISIO Non-Admin Reason: Patient Refused Escitalopram Oxalate (Escitalopram Oxalate 20 Mg Tablet) 20 mg PO DAILY [facility] Last Admin: 06/03/24 07:49 Dose: 20 mg Documented By: MAURISIO Glipizide (Glipizide 5 Mg Tablet) 5 mg PO BID [facility] Last Admin: 06/03/24 07:49 Dose: 5 mg Documented By: MAURISIO Glucose (Glucose Gel 15 Gm Gel..Gram.) 15 gm PO Q15M PRN; Protocol PRN Reason: per Hypoglycemia Standing Ord. Lactated Ringer's (Lr) 1,000 mls @ 80 mls/hr IVCONT .[id number] [facility] Last Admin: 06/03/24 13:37 Dose: 80 mls/hr Documented By: DANIEL Insulin Human Lispro (Insulin Lispro 100 Unit/Ml 3 Ml Vial) 0 unit SUBCUT QIDACHS [facility]; Protocol Last Admin: 06/03/24 11:51 Dose: 4 unit Documented By: MAURISIO Lactulose (Lactulose 20 Gm/30 Ml Solution) 20 gm PO DAILY PRN PRN Reason: Constipation Last Admin: 05/30/24 14:03 Dose: 20 gm Documented By: MARKIE Comments: Patient requested for constipation Levalbuterol HCl (Levalbuterol Hcl 1.25 Mg/3 Ml Vial.Neb) 1.25 mg INHALE Q4H PRN PRN Reason: sob Last Admin: 05/28/24 05:40 Dose: 1.25 mg Documented By: VASHTI Levalbuterol HCl (Levalbuterol Hcl 1.25 Mg/3 Ml Vial.Neb) 1.25 mg INHALE RQ4H WHILE AWAKE [facility] Last Admin: 06/03/24 15:15 Dose: Not Given Documented By: CARISSA Non-Admin Reason: Not In Room Lorazepam (Lorazepam 0.5 Mg Tablet) 0.5 mg PO Q12H PRN PRN Reason: anxiety/restlessness Last Admin: 06/03/24 08:14 Dose: 0.5 mg Documented By: MAURISIO Magnesium Hydroxide (Milk Of Magnesia 30 Ml Oral.Susp) 30 ml PO BID PRN PRN Reason: Constipation Last Admin: 06/01/24 16:41 Dose: 30 ml Documented By: BHAVESH Melatonin (Melatonin 3 Mg Tablet) 6 mg PO BEDTIME PRN PRN Reason: Insomnia Metoprolol Tartrate (Metoprolol Tartrate 25 Mg Tablet) 25 mg PO BID [facility]; Protocol Last Admin: 06/03/24 08:03 Dose: Not Given Documented By: MAURISIO Non-Admin Reason: held per Omeprazole (Omeprazole 20 Mg Capsule.) 20 mg PO DAILY@0630 [facility] Last Admin: 06/03/24 05:37 Dose: 20 mg Documented By: WALTERRISEddie Polyethylene Glycol (Polyethylene Glycol 3350 17 Gm Powd.Pack) 17 gm PO DAILY [facility] Last Admin: 06/03/24 07:49 Dose: Not Given Documented By: MAURISIO Non-Admin Reason: Patient Refused Prednisone (Prednisone 10 Mg Tablet) 30 mg PO DAILY [facility] Last Admin: 06/03/24 07:50 Dose: 30 mg Documented By: MAURISIO Sodium Biphosphate/Sodium Phosphate (Sodium Phosphate,[place]-Dibasic 133 Ml Enema) 133 ml [place] ONCE [facility] Last Admin: 06/03/24 13:50 Dose: 133 ml Documented By: DANIEL Sodium Chloride (0.9 % Sodium Chloride Flush 3 Ml Syringe) 3 ml IVFLUSH QSHIFT [facility] Last Admin: 06/03/24 14:08 Dose: Not Given Documented By: MAURISIO Non-Admin Reason: Previously Administered Labs 06/02/24 05:58 06/02/24 05:58 Labs: Laboratory Results - last 24 hr 06/02/24 06/02/24 06/03/24 16:38 20:24 00:59 POC Glucose 165 H 247 H 42 L* 06/03/24 06/03/24 06/03/24 01:18 01:28 03:02 POC Glucose 176 H 155 H 111 06/03/24 06/03/24 06/03/24 05:45 07:19 11:23 POC Glucose 112 118 H 156 H Assessment and Plan (1) Abnormal bowel habits: Status: Acute (2) Acute on chronic respiratory failure with hypoxia and hypercapnia: Status: Acute (3) Acute and chronic respiratory failure: Status: Acute Plan 74-year-old male with a PMH significant for?COPD, chronic hypoxemic and hypercarbic respiratory failure on 3L home O2, hx of left lung cancer s/p chemo and radiation 10 years ago, HLD, HTN, [id number] type 2 diabetes, hepatic cirrhosis, hx of alcohol abuse disorder, LIBRADO on CPAP, and anxiety who presents to the ED with worsening SOB and difficulty breathing x2-3 days. Pt will be admitted to the hospital for treatment and further evaluation of acute on chronic hypoxic and hypercapnic respiratory failure in the setting of acute COPD exacerbation. Acute on chronic hypoxic and hypercapnic respiratory failure in the setting of acute COPD exacerbation shortness of breath at baseline on arrival ABG with respiratory acidosis, treated with rescue BiPAP in ED, repeat VBG back to baseline. CXR negative for infiltrates, procalcitonin WNL at 0.03 on scheduled xopenex, iv Solu-Medrol 40mg bid, and benzonatate (do not tolerate DuoNeb due to shakiness) s/p Azithromycin started on 05/25 thru 05/31 Change IV Solu-Medrol to by mouth prednisone Titrate supplemental O2 >90,on baseline 3L home O2 Encourage incentive spirometry/ Monitor respiratory status Chronic Constipation treated with lactulose with good response initially, again feel constipated. CT abdomen and pelvis showed persistent constipation, underlying mass not excluded sigmoidoscopy showed diverticulosis, colon polyps colon, internal hemorrhoids, 4-6 mm sessile polyp removed with cold forceps, will place on high-fiber diet, scheduled laxative regimen and follow-up with Gastroenterology to get polyp results. [id number] type 2 diabetes on Glpizide and metformin at home Continue glipizide 5 mg b.i.d., metformin on hold, elevated blood sugars likely due to IV steroids, continue diabetic diet and insulin sliding scale. GERD continue PPI Hypertension continue metoprolol 25 mg b.i.d. Mood disorder Continue lorazepam, Lexapro LIBRADO CPAP at night Grade 1 obesity recommend low-calorie diet. Full Code DVT Prophylaxis: Lovenox Pt will require continued inpatient hospitalization for treatment of?acute on chronic hypoxic and hypercapnic respiratory failure in the setting of acute COPD exacerbation ,on steroids, breathing treatments, Quality Stroke Does the patient have a stroke diagnosis?: No VTE Prior VTE?: No VTE Risk Level:: Medical - moderate - high VTE Device Contraindication: Treatment Not Indicated VTE Drug Contraindication: N/A - Med Ordered
[2024-06-03 16:18] LABS: Glucose, Whole Blood 161 mg/dL (60-115)
[2024-06-03 19:39] LABS: Glucose, Whole Blood 270 mg/dL (60-115)
[2024-06-03] MEDS: Metoprolol Tartrate 25 MG TABLET PO (21:19)
[2024-06-03] MEDS: 0.9 % Sodium Chloride Flush 3 ML SYRINGE IVFLUSH ×2 (21:20→22:39)
[2024-06-03] MEDS: Atorvastatin Calcium 80 MG TABLET PO (21:20)
[2024-06-04 03:47] VITALS: BP 134/66; PULSE 79; RESP 20; TEMP 36.1; O2SAT 94
[2024-06-04] MEDS: Omeprazole 20 MG CAPSULE.DR PO (05:25)
[2024-06-04 07:14] LABS: Glucose, Whole Blood 117 mg/dL (60-115)
[2024-06-04] MEDS: levalbuterol HCL 1.25 MG/3 ML VIAL.NEB INHALE (07:25)
[2024-06-04 07:27] VITALS: PULSE 79; RESP 20
[2024-06-04 07:30] VITALS: BP 119/56; PULSE 78; RESP 16; TEMP 36.4; O2SAT 96
[2024-06-04] MEDS: Metoprolol Tartrate 25 MG TABLET PO (08:01)
[2024-06-04] MEDS: polyethylene glycoL 3350 17 GM POWD.PACK PO (08:02)
[2024-06-04] MEDS: glipiZIDE 5 MG TABLET PO (08:02)
[2024-06-04] MEDS: predniSONE 10 MG TABLET 30 MG PO (08:02)
[2024-06-04] MEDS: Escitalopram Oxalate 20 MG TABLET PO (08:02)
[2024-06-04] MEDS: 0.9 % Sodium Chloride Flush 3 ML SYRINGE IVFLUSH (08:05)
--- NOTE | 2024-06-04 10:24 | MHC.CM.PN ---
IMM 06/04/24 Patient is discharged to home self care. His will provide transportation home.
--- NOTE | 2024-06-04 10:28 | PM.DS ---
DS: Providers Provider Date of Service: 06/04/24 Date of admission: 05/26/24 14:13 Date of discharge: 06/04/24 Primary care physician: Anne-Marie Muro MD Consults: 06/01/24 07:51 Consult to General Surgery [place]ine Consulting [place] [facility] [place] [facility] Reason for consultation: constipation not responding to meds Has provider been notified: No 06/02/24 08:06 Consult to Gastroenterology Routine Consulting Provider: Kevin Corcoran Reason for consultation: sigmoid narrowing on CT, positive cologuard DS: Diagnosis Discharge Diagnosis (1) Abnormal bowel habits: Status: Acute (2) Acute on chronic respiratory failure with hypoxia and hypercapnia: Status: Acute (3) Acute and chronic respiratory failure: Status: Acute DS: Summary Hospital Course Hospital Course: Date of Service: 05/26/24 Attending physician on admission: Sadi Anguiano Chief Complaint: SOB Pt is a 74-year-old male with a PMH significant for?COPD, chronic hypoxemic and hypercarbic respiratory failure on 3L home O2, hx of left lung cancer s/p chemo and radiation 10 years ago, HLD, HTN, clo-mrvchcu-uxpblphci type 2 diabetes, hepatic cirrhosis, hx of alcohol abuse disorder, LIBRADO on CPAP, and anxiety who presents to the ED with worsening SOB and difficulty breathing x2-3 days. Pt reports he has been having SOB and SALVADOR for the past month but kept putting off coming into the hospital worsening his PCP. SOB significantly worse in the past 3-4 days, until pt could no longer taken and called EMS. EMS apparently found pt satting in the 50s. In the ER pt was noted to have respiratory acidosis and was placed on BiPAP overnight and then transitioned to NC. Pt reports cough for the past few weeks occasionally productive of whitish sputum. No fever or chills. Also complains of constipation for the past weeks with small bowel movement 3-4 days ago. Denies nausea and vomiting. In the ED pt was tachypneic up to 24, BP soft at 105/54, and initially satting in the 50s according to EMS. Pt was placed on rescue BiPAP in the ED for a few hours before being transitioned back to NC. Labs were significant for initial VBG pH 7.27 with pCO2 100 and bicarb 47. Repeat after BiPAP at baseline with with pH 7.36, pCO2 70, and bicarb 40. Hyperglycemia 258. Otherwise grossly unremarkable and around baseline for pt. No leukocytosis. Stable normocytic anemia of 11.1/36.2. Significant electrolyte abnormalities. Renal function baseline. Hepatic function baseline. Troponin negative. BNP WNL. Tested negative for flu, RSV, and COVID. UA negative for UTI. CXR showed no acute findings. KUB x-ray showed moderately increased stool quantity consistent with constipation. EKG demonstrated normal sinus rhythm without evidence of significant ST elevations or depressions. Pt was treated with DuoNebs, IVF, Mag sulfate, azithromycin, and ceftriaxone. Pt will be admitted to the hospital for treatment and further evaluation of acute on chronic hypoxic and hypercapnic respiratory failure in the setting of acute COPD exacerbation. Hospital course: 74-year-old male with a PMH significant for?COPD, chronic hypoxemic and hypercarbic respiratory failure on 3L home O2, hx of left lung cancer s/p chemo and radiation 10 years ago, HLD, HTN, vsf-whsqvzu-megiaoiyp type 2 diabetes, hepatic cirrhosis, hx of alcohol abuse disorder, LIBRADO on CPAP, and anxiety who presents to the ED with worsening SOB and difficulty breathing x2-3 days. Pt will be admitted to the hospital for treatment and further evaluation of acute on chronic hypoxic and hypercapnic respiratory failure in the setting of acute COPD exacerbation. Acute on chronic hypoxic and hypercapnic respiratory failure in the setting of acute COPD exacerbation, treated with IV Solu Medrol, cough medications, Xopenex updraft and 5 days of azithromycin, shortness of breath improved chest x-ray showed no infiltrates, procalcitonin within normal range, recommended to continue baseline 3 L of home oxygen, prednisone 10 mg for 3 more days given. Chronic Constipation treated with lactulose , stool softeners, MiraLax, Mag citrate with no significant improvement ,CT abdomen and pelvis showed persistent constipation, underlying mass not excluded therefore underwent sigmoidoscopy by Dr. Adhikari that showed diverticulosis, colon polyps,, internal hemorrhoids, 4-6 mm sessile polyp removed with cold forceps, recommend high-fiber diet, scheduled laxative ,and recommend follow-up with Gastroenterology to get Pathology report. Ybx-plwfmid-awjdqtgqb type 2 diabetes recommend to continue Glpizide and metformin GERD continue PPI Hypertension continue metoprolol 25 mg b.i.d. Mood disorder Continue lorazepam, Lexapro LIBRADO CPAP at night Time Attestation Discharge Coordination Time (in mins): 40 Quality: Safe Use of Opioids Does Pt have an Active Cancer Diagnosis on the Problem List?: No Quality: Stroke Does the patient have a stroke diagnosis?: No Physical Exam Vital Signs: Vital Signs: Last Vital Signs Temp 97.5 F 06/04/24 07:30 Pulse 78 06/04/24 07:30 Resp 16 06/04/24 07:30 BP 119/56 L 06/04/24 07:30 Pulse Ox 96 06/04/24 07:30 O2 Del Method Nasal Cannula 06/04/24 07:30 O2 Flow Rate 3 06/04/24 07:30 Oxygen Flow Rate 3 05/25/24 17:10 BMI result Body Mass Index 32.0 Const: Other: Gen: in no acute distress HEENT: sclera anicteric, moist mucus membranes Neck: supple Lungs: Good air movement, few expiratory wheeze Heart: regular rate and rhythm, no murmurs Abd: soft, obese, bowel sounds audible, non tender, no guarding, no rigidity Ext: no pitting edema Skin: warm/well-perfused Neuro: alert and oriented x3, no focal findings Psych: appropriate affect DS: Data Data Completed and Pending Completed studies during hospitalization [Text1]: Procedures Irrigation of Lower GI using Irrigating Substance, Via Natural or Artificial Opening (07/29/22) Pending studies at discharge: Pending at discharge 06/03/24 14:44 Surgical [PTH] Routine Labs on day of discharge: Laboratory Results - last 24 hr 06/03/24 06/03/24 06/03/24 11:23 16:15 19:20 POC Glucose 156 H 161 H 270 H 06/04/24 07:07 POC Glucose 117 H Discharge Plan Discharge Anticipated Discharge Date/Time: 06/04/24 10:21 Patient Disposition: Home, Self-Care Discharge Diagnosis: Acute on chronic hypoxic and hypercarbic respiratory failure Acute COPD exacerbation Acute on chronic constipation Referrals: Anne-Marie Muro MD [Primary Care Provider] - 1 Week Discharge Medications: New polyethylene glycol 3350 17 gram Powder In Packet 17 g PO DAILY Qty: 100 0RF sennosides [senna] 8.6 mg tablet 8.6 mg PO BEDTIME Qty: 90 0RF prednisone 10 mg tablet 10 mg PO DAILY Qty: 3 0RF Continued (DME) blood-glucose meter [FreeStyle Lite Meter] Kit See Rx Instructions .Route Qty: 1 0RF Rx Instructions: As directed glipizide 5 mg tablet 5 mg PO BID Qty: 270 1RF albuterol sulfate [Ventolin HFA] 90 mcg/actuation HFA aerosol inhaler 2 puff inhalation Q4-6H PRN (Reason: shortness of breath or wheezing) Qty: 8.5 2RF atorvastatin 80 mg tablet 80 mg PO BEDTIME Qty: 90 1RF ipratropium-albuterol 0.5 mg-3 mg(2.5 mg base)/3 mL solution for nebulization 3 ml inhalation Q6H PRN (Reason: wheezing) Qty: 180 2RF metoprolol tartrate 25 mg tablet 25 mg PO BID Qty: 180 1RF (DME) lancets [FreeStyle Lancets] 28 gauge misc See Rx Instructions .Route Qty: 100 1RF Rx Instructions: Test blood sugar twice omeprazole 20 mg capsule,delayed release(DR/EC) 20 mg PO DAILY@0630 Qty: 30 1RF (DME) FreeStyle Lite Strips Strip See Rx Instructions .Route Qty: 50 7RF Rx Instructions: check fasting glucose once a day AC lorazepam [Ativan] 1 mg tablet 0.5 mg PO BID PRN (Reason: anxiety) Qty: 30 0RF Rx Instructions: Patient may request partial fill budesonide-formoterol [Symbicort] 160-4.5 mcg/actuation Hfa Aerosol Inhaler 2 puff INHALATION DAILY calcium carbonate-vitamin D3 600 mg-10 mcg (400 unit) tablet 1 tab PO DAILY azithromycin 500 mg tablet 500 mg PO MOWEFR lactulose [Constulose] 10 gram/15 mL Solution 10 g PO DAILY PRN (Reason: Constipation) escitalopram oxalate 20 mg tablet 20 mg PO DAILY Qty: 90 3RF metformin 1,000 mg tablet 1,000 mg PO BID Qty: 180 1RF (DME) Oxygen Home Use Kit See Rx Instructions .Route Rx Instructions: As directed Discharge Orders: Discharge Order (Routine); Ordered 06/04/24 Ordered By: Sadi Anguiano Diet: Diabetic diet Activity on Discharge: As tolerated Stand Alone Forms: Patient Portal Discharge page Print Language: Turkmen Care Plan Goals: Constipation resolved take daily MiraLax, Senokot, dried prunes high-fiber diet and lactulose as needed for no bowel movements in 2-3 days Continue all home inhalers Take prednisone 10 mg daily for 3 more days. Health Concerns: Diabetes mellitus follow diabetic diet Plan of Treatment: Follow-up with primary care physician call for appointment Follow-up with graphic manager Dr. Adhikari in 2 weeks call for appointment Assessment: As above Discharge Date/Time: 06/04/24 12:31
[2024-06-04 11:12] LABS: Glucose, Whole Blood 301 mg/dL (60-115)
[2024-06-04 11:45] VITALS: BP 110/55; PULSE 66; RESP 16; TEMP 36.2; O2SAT 97
== END 2024-06-04 12:31 | disposition home or self-care (01) | DRG 190 ==
LOC: HO.ED 05-26 05:47 → HO.EDOVER 05-26 14:24 → HO.S3 05-27 00:58
PROVIDERS: Emergency Medicine; Internal Medicine Gastroenterology; Admitting Provider Student in an Organized Health Care Education/Training Program; Emergency Provider Emergency Medicine Emergency Medical Services; PCP Internal Medicine; Visit Provider Hospitalist
PROC: 0DJD8ZZ Inspection of Lower Intestinal Tract, Via Natural or Artificial Opening Endoscopic (ICD-10-PCS; CPT 45330; principal; 2024-06-03 14:30)
DX: J44.1 Chronic obstructive pulmonary disease with (acute) exacerbation (principal); J96.21 Acute and chronic respiratory failure with hypoxia; J96.22 Acute and chronic respiratory failure with hypercapnia; I10 Essential (primary) hypertension; G47.33 Obstructive sleep apnea (adult) (pediatric); K21.9 Gastro-esophageal reflux disease without esophagitis; K59.09 Other constipation; E11.9 Type 2 diabetes mellitus without complications; E66.811 Obesity, class 1; F39 Unspecified mood [affective] disorder; Z68.32 Body mass index [BMI] 32.0-32.9, adult; K63.5 Polyp of colon; K62.1 Rectal polyp; K64.8 Other hemorrhoids; K57.30 Diverticulosis of large intestine without perforation or abscess without bleeding; K74.60 Unspecified cirrhosis of liver; Z71.3 Dietary counseling and surveillance; F10.11 Alcohol abuse, in remission; I25.10 Atherosclerotic heart disease of native coronary artery without angina pectoris; Z20.822 Contact with and (suspected) exposure to COVID-19; Z99.81 Dependence on supplemental oxygen; Z95.1 Presence of aortocoronary bypass graft; Z87.891 Personal history of nicotine dependence; Z79.84 Long term (current) use of oral hypoglycemic drugs; Z79.899 Other long term (current) drug therapy
CPT/HCPCS: 0241U; 36415; 71045; 74018; 74177; 80048; 80076; 81001; 82803; 82947; 83605; 83690; 83735; 83880; 84145; 84484; 85025; 85027; 85610; 87040; 88305; 93005; 99285; J0456; J0696; J1650; J2919; J3475; J7120; Q9967

== ENCOUNTER → 2024-05-25 17:19 | Outpatient (BNV) | payer MEDICARE, SELFPAY | PROVIDERS: Emergency Provider Emergency Medicine Emergency Medical Services; PCP Internal Medicine; Visit Provider Internal Medicine | DX: R06.02 Shortness of breath (principal) | CPT/HCPCS: 93010 ==

== ENCOUNTER → 2024-05-25 17:20 | Outpatient (BNV) | payer MEDICARE, SELFPAY | PROVIDERS: Emergency Provider Emergency Medicine; PCP Internal Medicine; Visit Provider Radiology Diagnostic Radiology | DX: R06.02 Shortness of breath (principal); K59.00 Constipation, unspecified; R14.0 Abdominal distension (gaseous) | CPT/HCPCS: 71045; 74018 ==

== ENCOUNTER 2024-05-26 14:13 | Outpatient (BNV) | payer MEDICARE, SELFPAY | END 2024-06-01 15:02 | PROVIDERS: Admitting Provider Student in an Organized Health Care Education/Training Program; Emergency Provider Emergency Medicine Emergency Medical Services; PCP Internal Medicine; Visit Provider Radiology Diagnostic Radiology | DX: K59.00 Constipation, unspecified (principal); N20.0 Calculus of kidney | CPT/HCPCS: 74177 ==

== ENCOUNTER → 2024-05-26 14:13 | Outpatient (BNV) | payer MEDICARE, SELFPAY | PROVIDERS: Admitting Provider Student in an Organized Health Care Education/Training Program; Emergency Provider Emergency Medicine Emergency Medical Services; PCP Internal Medicine; Visit Provider Student in an Organized Health Care Education/Training Program | DX: J96.21 Acute and chronic respiratory failure with hypoxia (principal); J96.22 Acute and chronic respiratory failure with hypercapnia | CPT/HCPCS: 99223; 99233 ==

== ENCOUNTER → 2024-05-26 14:13 | Outpatient (BNV) | payer MEDICARE, SELFPAY | PROVIDERS: Admitting Provider Student in an Organized Health Care Education/Training Program; Emergency Provider Emergency Medicine Emergency Medical Services; PCP Internal Medicine; Visit Provider Physician Assistant Surgical | DX: R19.5 Other fecal abnormalities (principal); J96.21 Acute and chronic respiratory failure with hypoxia; J96.22 Acute and chronic respiratory failure with hypercapnia | CPT/HCPCS: 99222 ==

== ENCOUNTER → 2024-05-26 14:13 | Outpatient (BNV) | payer MEDICARE, SELFPAY | PROVIDERS: Admitting Provider Student in an Organized Health Care Education/Training Program; Emergency Provider Emergency Medicine Emergency Medical Services; PCP Internal Medicine; Visit Provider Internal Medicine Gastroenterology | DX: R19.8 Other specified symptoms and signs involving the digestive system and abdomen (principal) | CPT/HCPCS: 99223 ==

== ENCOUNTER 2024-06-09 10:54 | Outpatient (AMB) | payer MEDICARE, SELFPAY ==
--- NOTE | 2024-06-09 11:34 | MHC.PC.OV ---
Vital Signs 06/09/24 11:45 Height 5 ft 6 in Weight 202 lb BMI 32.6 BP 102/60 Blood Pressure Location Rt brachial Position Sitting Respiration 18 Pulse 67 Pulse Source Pulse Oximeter Pulse Oximetry (%) 93 Oxygen Delivery Method Room Air Intake Visit Reasons: COPD TCM Intake Note: Pt is here today for his TCM for his COPD Allergies fluticasone furoate [From Trelegy Ellipta] Allergy (Intermediate, Verified 06/14/24 22:53) Rash vilanterol [From Trelegy Ellipta] Allergy (Intermediate, Verified 06/14/24 22:53) Rash umeclidinium [Incruse Ellipta] Allergy (Unknown, Verified 06/14/24 22:53) Hives furosemide [From Lasix] Adverse Reaction (Intermediate, Verified 06/14/24 22:53) Hallucinations Medication List - Last Reconciled 06/14/24 by Anne-Marie Muro MD albuterol sulfate 90 mcg/actuation (Ventolin HFA) 2 puffs inhalation Q4-6H PRN atorvastatin 80 mg PO BEDTIME bisacodyl (Dulcolax (bisacodyl)) 10 mg (2 x 5 mg) PO ONCE 10 days blood sugar diagnostic (FreeStyle Lite Strips) check fasting glucose once a day AC blood-glucose meter (FreeStyle Lite Meter kit) As directed budesonide-formoterol 160-4.5 mcg/actuation (Symbicort) 2 puffs inhalation DAILY calcium carbonate-vitamin D3 600 mg-10 mcg (400 unit) 1 tab PO DAILY escitalopram oxalate 20 mg PO DAILY glipizide 5 mg PO BID ipratropium-albuterol 0.5 mg-3 mg(2.5 mg base)/3 mL 3 mL inhalation Q6H PRN lactulose (Constulose) 10 grams (15 mL) PO DAILY PRN lancets (FreeStyle Lancets) Test blood sugar twice linaclotide 145 mcg PO QAM lorazepam (Ativan) 0.5 mg (1/2 x 1 mg) PO BID PRN metformin 1,000 mg PO BID metoprolol tartrate 25 mg PO BID omeprazole 20 mg PO DAILY@0630 Oxygen Home Use As directed polyethylene glycol 3350 17 grams PO DAILY sennosides (senna) 8.6 mg PO BEDTIME Tobacco use date assessed: 06/09/24 Fall risk assessment: No Falls in past year Last assessed Fall Risk: 06/09/24 Dental Screening Dental Screen Date: 06/09/24 Did you have a dental visit in the last 12 months?: No Did you have a dental problem in the last 6 months where you did not have access to dental care?: No Was dental information given to patient?: Patient declined HPI COPD TCM HPI Details 74-year-old male with history of series COPD, with chronic hypoxemia and hypercarbic respiratory failure on 3 L home O2, history of left lung cancer status post chemo and radiation 10 years ago, has hyperlipidemia, hypertension, type 2 diabetes mellitus txz-orfpeyk-kagbzlhbo, hepatic cirrhosis, obstructive sleep apnea on CPAP, anxiety disorder currently on escitalopram and lorazepam as needed, here today for a TCM visit. He was recently admitted for acute on chronic hypoxic and hypercapnic respiratory failure in the setting of acute COPD exacerbation. He was found to have respiratory acidosis and was placed on BiPAP overnight then transition to nasal cannula. Denies any fever, no chills, but has been having a cough productive of whitish phlegm. Patient also has been complaining of constipation passage of small stools. Labs done showed normocytic anemia, no significant electrolyte abnormalities, renal and hepatic function was at baseline, negative troponin and BNP was within normal limit, negative for RSV flu and COVID and no UTI seen on UA. Chest x-ray showed no acute findings, KUB showed moderately increase do quantity consistent with constipation. EKG done showed normal sinus rhythm with no no acute ST-T changes seen. He was treated with IV Solu-Medrol, Xopenex updraft and 5 days of azithromycin, Mag sulfate, and prescribed on prednisone 10 mg for 3 more days , and discharged on baseline 3 L of home O2/ For his chronic constipation he was prescribed lactulose , stool softeners, MiraLax, Mag citrate with no significant improvement ,CT abdomen and pelvis showed persistent constipation, underlying mass not excluded therefore underwent sigmoidoscopy by Dr. Gomez that showed diverticulosis, will hyperplastic polyps in 1 tubular adenoma polyp removed, internal hemorrhoids, 4-6 mm sessile polyp removed with cold forceps. recommend high-fiber diet. Patient however states that he never received a prescription for lactulose and still is constipated. He was continue in his glipizide and metformin for treatment of diabetes mellitus, continued on his omeprazole for his chronic GERD, continued on metoprolol 25 mg 1 tablet twice a day for hypertension control, continue on lorazepam and Lexapro for his depression and anxiety and continue on CPAP I would for his obstructive sleep apnea TCM TCM Information Date of Discharge 06/04/24 [facility] Medical History (Updated 06/14/24 @ 23:28 by Anne-Marie Muro MD) Constipation History of adenomatous polyp of colon Acute on chronic respiratory failure with hypoxia and hypercapnia Positive colorectal cancer screening using Cologuard test Respiratory failure with hypoxia and hypercapnia Bilateral carotid artery disease CAD (coronary artery disease) Anxiety and depression Anemia Chronic respiratory failure with hypoxia and hypercapnia Radiation fibrosis of lung HTN (hypertension) Dyslipidemia History of pneumonia Bacteremia due to Enterococcus COPD, severe Diabetes mellitus with hyperglycemia, without long-term current use of insulin Urinary incontinence Asthma Lung cancer Skin cancer Surgical History Hx of heart artery stent History of esophagogastroduodenoscopy (EGD) Hx of colonoscopy Family History Father Medical history non-contributory Mother Medical history non-contributory Unknown family medical history Lung collapse Brother No problems noted. Brother No problems noted. Son Substance use disorder Son No problems noted. Daughter No problems noted. Sister No problems noted. Sister No problems noted. Sister No problems noted. Sister No problems noted. Other HTN (hypertension) Social History Household Members: Family Household Members Other:: grandson Housing: House Are you a primary critical care educator to a significant other at home: No Do you presently have visiting nurse or other home services: No Alcohol intake: never Comment: pt encouraged to ring buck for some assistance when ambulating Patient Tobacco Use Status: Former Tobacco user Tobacco use type: Cigarette e-Cigarette/Vaping Use: Never Used Advance Directives Date on File: 06/08/22 service: No Current occupational status: retired Cognitive needs: No Hearing needs: No Vision needs: No Questionnaire Thrive Questionnaire Date Thrive assessed: 06/09/24 Currently or been in a relationship where the following occur: No concerns reported THRIVE Score: 0 SAUMYA-7 AMB Questionnaire SAUMYA-7 Date SAUMYA - 7 assessed: 09/21/22 Source: Developed by Drs. Finn Stevens, Klaudia Bonilla, Reinaldo Suero and colleagues, with an educational lolita from [employer]. Review of Systems Const Reports fatigue, Denies fever(s) and Denies headache(s) ENT Reports Normal hearing present, Denies dysphagia, Denies dizziness and Denies headache(s) Card Denies chest pain, Denies irregular heart rhythm, Denies leg edema, Denies lightheadedness and Reports dyspnea on exertion Resp Reports cough and Reports dyspnea on exertion GI Reports abdominal pain, Denies change in bowel habits, Denies dysphagia and Denies heartburn Denies dysuria and Reports urinary frequency Musc Denies back pain and Reports arthralgias Neuro Reports Normal hearing present, Denies Abnormal speech present, Denies dizziness, Denies headache(s) and Denies seizure-like activity Psych Reports anxiety and Denies depression Endo Denies cold intolerance, Reports fatigue, Denies flushing and Denies heat intolerance John/Lymph Denies easy bleeding and Denies easy bruising Aller/Immun Reports no additional complaints Physical exam (Primary Care) Vital Signs: Last Vital Signs Pulse 67 06/09/24 11:45 Resp 18 06/09/24 11:45 BP 102/60 06/09/24 11:45 Pulse Ox 93 06/09/24 11:45 Oxygen Delivery Method Room Air 06/09/24 11:45 BMI result Body Mass Index 32.6 Tobacco/Smoking Status: Tobacco use Status Tobacco use date assessed 06/09/24 06/09/24 11:44 Patient Tobacco Use Status Former Tobacco user 06/09/24 11:37 Tobacco use type Cigarette 06/09/24 11:37 e-Cigarette/Vaping Use Never Used 06/09/24 11:37 Thrive Assessment: Date of Thrive Assessment Date Thrive assessed 06/09/24 06/09/24 11:37 Currently or been in a relationship where the following occur: No concerns reported Const Other: Accompanied by General: no acute distress and alert Orientation/consciousness: patient oriented x3 [facility] General nose exam: Normal external nose present Face and sinus: Yes face symmetric Mouth: Normal oral and palatal mucosa present and moist mucous membranes Neck Neck: Yes full ROM, Yes no lymphadenopathy and Yes supple Resp Other: Diminished breath sounds bilateral, no wheezing, on continuous O2 by nasal cannula at 3 L Cardio Rate: regular rate Rhythm: regular rhythm Heart sounds: S1 normal heart sound present and S2 normal heart sound present GI Inspection: Yes obesity Palpation (GI): Soft to palpation, nontender, no guarding and no masses Back/Spine/Pelvis Back: No back tenderness Neuro General: patient oriented x3, moves all extremities, no focal motor deficits and CN's II-XI intact bilaterally Cranial nerves: Yes Normal hearing present Speech: No Abnormal speech present Extrem General: Yes full ROM, Yes no joint enlargement and Yes no pedal edema Psych Appearance: grossly normal Mental Status: mental status grossly normal Speech and movement: Normal speech and movement present Affect: normal affect Attitude: cooperative Thought process: Normal thought process present Thought content: Normal thought content present Coding Level of Care Code TCM High MDM <= 7 Days Diagnoses COPD, severe J44.9 History of adenomatous polyp of colon Z86.0101 Type 2 diabetes mellitus with hyperglycemia, without long-term current use of insulin E11.65 Diabetes mellitus type: type 2 Anemia D64.9 Dyslipidemia E78.5 GERD (gastroesophageal reflux disease) K21.9 Constipation K59.00 Assessment & Plan Assessment & Plan (1) COPD, severe: Code(s): J44.9 - Chronic obstructive pulmonary disease, unspecified Category: Medical Plan: Followed by Dr. Marr, continued on DuoNeb, home O2 at 3 L per nasal cannula, Symbicort, (2) History of adenomatous polyp of colon: Code(s): Z86.0101 - Personal history of adenomatous and serrated colon polyps Category: Medical Plan: Advised to continue with a high-fiber diet. (3) Diabetes mellitus with hyperglycemia, without long-term current use of insulin: Code(s): E11.65 - Type 2 diabetes mellitus with hyperglycemia Category: Medical Qualifiers: Diabetes mellitus type: type 2 Qualified Code(s): E11.65 - Type 2 diabetes mellitus with hyperglycemia Plan: Continued on metformin and glipizide at the same dose, reminded to get his fasting labs done and A1c, orders are already in lab since March 2024 (4) Anemia: Code(s): D64.9 - Anemia, unspecified Category: Medical Plan: Reminded to get his labs done, (5) Dyslipidemia: Code(s): E78.5 - Hyperlipidemia, unspecified Category: Medical Plan: Currently on atorvastatin 80 mg daily, reminded to get his fasting labs done check lipids (6) GERD (gastroesophageal reflux disease): Comment: Continue omeprazole 20 mg once daily Code(s): K21.9 - Gastro-esophageal reflux disease without esophagitis Category: Medical Plan: Continued on omeprazole (7) Constipation: Code(s): K59.00 - Constipation, unspecified Category: Medical Plan: Prescription sent for lactulose 15 mL p.o. once a day as needed for constipation. Continue with softeners Medications: New lactulose (Constulose) 10 grams (15 mL) PO DAILY PRN 1,500 mL 0RF Constipation
[2024-06-09 11:45] VITALS: BP 102/60; PULSE 67; RESP 18; O2SAT 93; BMI 32.6
--- OUTSIDE RECORDS SUMMARY | 2024-06-09 13:29 | XMS_ITS ---
Author Organization [facility] Address [address] [place] [address] Care Team Providers Care Geospatial Information Scientist Name Role Phone Bhaskar TITUS, Anne-Marie Dennison Primary Care Provider Un available Mary Jane Mc Unavailable [phone] Medications Medication SIG (Take, Route, Frequency, Duration) Notes Start Date End Date Status Omeprazole 20 MG 1 tablet Orally Once a day Active Metoprolol Succinate ER 25 MG 1 tablet Orally Once a day Active Extra Depth Diabetic Shoes with 3 Pair Custom heat-molded multi-density innersoles for 1 year Dx: 02/13/2021 Active Symbicort 2 puffs Active metFORMIN HCl 1000 MG Orally twice a day Active Loratadine 10 MG 1 tablet Orally Once a day Active Isosorbide Dinitrate 30 MG 1 tablet Orally once a day Active LORazepam 0.5 MG 1 tablet as needed Orally every 6 hrs Active glipiZIDE 5 MG Orally Activ e Escitalopram Oxalate 10 MG 1 tablet Orally Once a day Active Voltaren 1 % as directed Externally Active Atorvastatin Calcium 80 MG 1 tablet Orally Once a day Active Aspirin Once a day Active prednisoLONE Not-Jacobo ing Daily Kathleen Active Extra Depth Diabetic Shoes with 3 Pair Custom heat-molded multi-density innersoles for 1 year Dx: 11/04/2017 Not-Taking Encounters Encounter Location Date Provider Diagnosis [facility] [address] [place] [address] 04/06/2024 Mary Jane Mc Plan Of Treatment No Information Progress Notes * Sonia REED: 0 (74 yo M)Acc No.[id number]:04/06/2024 Progress Note Patient:?Fitz REED Provider:?Mary Jane Mc DPM :1950???Age:74 Y???Sex:Male Jose e:04/06/2024 Address:[address] [place], [place] [id number] Pcp:Eddie Isabel Subjective: * Chief Complaints: * ??? * Medical History:?Anxiety dis order, Rheumatoid arthritis, Osteoarthritis, Back,Hip,and Knee pain, CAD (Cholesterol), Cancer, Chicken pox, Heart disease, Hiatal hernia, Lung disease, Psoriasis/eczema, Reflux ( GERD), Joint implants/screws, COPD, Gall bladder polyp, Skin cancer, Vascular grafts, type II diabetes. * Medications:?Taking Voltaren 1 % Gel as directed Externally , Taking Aspirin Once a day , Taking Atorvastatin Calcium 80 MG Tablet 1 tablet Orally Once a day , Taking Daily Kathleen , Taking Escitalopram Oxalate 10 MG Tablet 1 tablet Orally Once a day , Taking glipiZIDE 5 MG Tablet Orally , Taking Isosorbide Dinitrate 30 MG Tablet 1 tablet Orally once a day , Taking Loratadine 10 MG Tablet 1 tablet Orally Once a day , Taking LORazepam 0.5 MG Tablet 1 tablet as needed Orally every 6 hrs , Taking metFORMIN HCl 1000 MG Tablet Orally twice a day , Taking Metoprolol Succinate ER 25 MG Tablet Extended Release 24 Hour 1 tablet Orally Once a day , Taking Omeprazole 20 MG Tablet Delayed Release 1 tablet Orally Once a day , Taking Symbicort 2 puffs , Taking Extra Depth Diabetic Shoes with 3 Pair Custom heat-molded multi-density innersoles for 1 year Dx: , Not-Taking/PRN Extra Depth Diabetic Shoes with 3 Pair Custom heat-molded multi-density innersoles for 1 year Dx: , Not-Taking/PRN prednisoLONE Objective: * Vitals:? Assessment: Plan: * Treatment: * Images: * The named appointment provid er may or may not be the originator of this progress note, and it is not deemed complete until electronically signed by the appointment provider. Sign off status: Pending * Provider:?Mary Jane Mc DPM Date:? Generated for Rosanna clay/Barbara/Latoyasmitting on:?06/09/2024 01:28 PM EST
--- OUTSIDE RECORDS SUMMARY | 2024-06-09 13:29 | XMS_ITS ---
Author Organization [facility] Address [address] [place] [address] Care Team Providers Care Theatrical Variety Agent Name Role Phone Bhaskar TITUS, Anne-Marie Dennison Primary Care Provider Un available Mary Jane Mc Unavailable [phone] REASON FOR VISIT SD Reschedule/Cancel Encounters Encounter Location Date Provider Diagnosis [facility] [address] [place] [address] 04/06/2024 Mary Jane Mc Plan Of Treatment No Information Progress Notes * Sukhjinder REEDSTEPHENIE: 0 (74 yo M)Acc No.[id number]:04/06/2024 Patient:?Fitz REED :1950???Age:74 Y???Sex:Male Address:[address] [place] [address], [id number] * true * Date:? Generated for Printi danna/Barbara/eTransmitting on:?06/09/2024 01:28 PM EST
--- OUTSIDE RECORDS SUMMARY | 2024-06-09 13:29 | XMS_ITS | Patient Health Record ---
Author Organization [facility] Address [address] [place] [address] Care Team Providers Care Technical Specialist Cytogenetics Name Role Phone Bhaskar TITUS, Anne-Marie Dennison Primary Care Provider Un available McMary Jane julian Unavailable [phone] Shashank Hunt Unavailable [phone] Allergies No Known Allergies Reason For Referral [...] Status Risk Notes Problem Acquired hallux valgus (56792521) Hallux valgus (acquired), right foot (M20.11) Active confirmed Problem Acquired hammer toe of right foot (0829867200154628 ) Other hammer toe(s) (acquired), right foot (M20.41) Active confirmed Problem Polyneuropathy due to type 2 diabetes mellitus (317939606) Type 2 diabetes mellitus with diabetic polyneuropathy (E11.42) Active confirmed Vital Signs Blood pressure diastolic 67 mm Hg 12/05/2023 Height 5ft6in in 12/05/2023 Blood pressure systolic 127 mm Hg 12/05/2023 Weight 200 lbs 12/05/2023 BMI 32.28 kg/m2 12/05/2023 Encounters Encounter Location Date Provider Diagnosis [address] [address] 12/05/2023 Shashank Hunt Tinea unguium B35.1 ; Type 2 diabetes mellitus with diabetic polyneuropathy E11.42 ; Pain in right toe(s) M79.674 ; Pain in left toe(s) M79.675 ; Other hammer toe(s) (acquired), right foot M20.41 ; Hallux valgus (acquired), right foot M20.11 ; Xerosis cutis L85.3 and Ingrowing nail L60.[address] [address] 07/15/2023 Shashank Hunt [facility] [address] 04/06/2024 Mary Jane Mc Assessments Encounter Date [...] Treatment Pending Test Test Name Order Date 43189-POEVHSG NAIL, 6 OR MORE 02/03/2018 03266-TPZJWFA NAIL, 6 OR MORE 11/04/2017 46619-EMIM SKIN LESIONS, OVER 4 02/04/20 18 06022-PTRD SKIN LESIONS, OVER 4 11/05/19 18 65910-KFJZ SKIN LESIONS, OVER 4 05/05/19 19 77731-WTTT SKIN LESIONS, OVER 4 08/05/19 19 45593-EJJJ SKIN LESIONS, OVER 4 11/06/19 19 82109-IWUS SKIN LESIONS, OVER 4 02/10/20 19 98913-PVLO SKIN LESIONS, OVER 4 06/10/19 20 41102-EIJG SKIN LESIONS, OVER 4 12/09/19 20 88275-GIGZ SKIN LESIONS, OVER 4 03/23/20 20 18166-KBMD SKIN LESIONS, OVER 4 07/12/19 21 85252-SLGL SKIN LESIONS, OVER 4 11/04/19 21 42387-YMJW SKIN LESIONS, OVER 4 02/14/20 21 70023-HHOA SKIN LESIONS, OVER 4 06/05/19 22 Insurance Providers Payer Name Payer Address Payer Phone Subscriber Number Group Number Insured Name Patient Relationship to Insured Coverage Start Date Coverage End Date Medicare National Gov[employer] [address] [place] [address] [id number] Fitz Reed Self - patient is the insured [employer] [address] [place] [address] [phone] [id number] Fitz Reed Self - patient is the [...]
--- OUTSIDE RECORDS SUMMARY | 2024-06-09 13:29 | XMS_ITS | Clinical Summary ---
Author Organization [facility] Address [address] [place] [address] Care Team Providers Care Head Transfer Clerk Name Role Phone Anne-Marie Muro MD Primary Care Provider [phone] Surgical History Surgery Date Site/Laterality Comments OTHER SURGICAL HISTORY PROCEDURE: HISTORICAL MELANOMA Medical History Medical History Date Comments Chronic airway obstruction, not elsewhere classified DX:Chronic airway obstructio n, not elsewhere classified Other and unspecified hyperlipidemia DX:Other and unspecified hyperlipidemia Other generalized ischemic cerebrovascular disease DX:Other generalized ischemi c cerebrovascular disease; COMMENT: microvascular changes on MRI Historical Medical DX DX:Other a nd unspecified malignant neoplasm of skin of other and unspecified parts of face Coronary atherosclerosis of unspecified type of vessel, [place] or graft 05/30/2011 DX:Coronary atherosclerosis of unspecified type of vessel, [place] or graft Family History Medical History Relation Name Comments Other: heart trouble Sister 1 Relation Name Status Comments Sister 1 Sister 2 Social History Tobacco Use Types Packs/Day Years Used Date Smoking Tobacco: Former Cigarettes Q uit: 06/20/2006 Alcohol Use Standard Drinks/Week Comments Not Asked 0 (1 standard drink = 0.6 oz pur e alcohol) Sex and Gender Information Value Date Recorded Sex Assigned at Not on file Legal Sex Male 10:27 PM EST Gender Identity Not on file Sexual Orientation Not on file Obstetrics History Plan of Treatment Health Maintenance Due Date Last Done Comments Diabetes: Annual GFR (Glomer ular Filtration Rate) 1950 COVID-19 Vaccine (#1) 1955 Diabetes: Annual Foot Exam 01/31/1960 Diabetes: Annual Retina Eye Exam 01/31/1960 DTaP,Tdap,and Td Vaccines (1 - Tdap) 1969 Zoster Vaccines (1 of 2) 1969 Pneumococcal Vaccine: 50+ Ye ars (2 of 2 - PCV) 08/29/2006 08/29/2005 RSV Immunization Patients 60 + Years Old (1 - Risk 60-74 years 1-dose series) 2010 Abdominal Aortic Aneurysm (A AA) Screen 03/22/2022 Cholesterol Screening (Lipid Panel) 03/22/2022 Colorectal Cancer Screening: Colonoscopy 03/22/2022 Depression Screening 03/22/2022 Falls Risk Assessment 03/22/2022 Hepatitis C Screening 03/22/2022 Social Influencers of Health Screening 03/22/2022 Diabetes: Annual Urine Albumin-Creatinine Ratio (uACR) 03/23/2022 Diabetes: Blood Sugar Contro l Test (HGBA1C) 03/23/2022 Hypertension/CHF/CAD Annual BMP Blood Test 03/23/2022 Influenza Vaccine (#1) 2023 01/11/2006 HIB Vaccines Aged Out No longer eligi ble based on patient's age to complete this topic HPV Vaccines Aged Out No longer eligi ble based on patient's age to complete this topic Hepatitis A Vaccines Aged Out No long er eligible based on patient's age to complete this topic Hepatitis B Vaccines Aged Out No long er eligible based on patient's age to complete this topic IPV Vaccines Aged Out No longer eligi ble based on patient's age to complete this topic MMR Vaccines Aged Out No longer eligi ble based on patient's age to complete this topic Meningococcal ACWY Vaccine Aged Out N o longer eligible based on patient's age to complete this topic Meningococcal B Vacine Aged Out No lo nger eligible based on patient's age to complete this topic RSV Immunization Patients Un will 20 months Aged Out No longer eligible b ased on patient's age to complete this topic Varicella Vaccines Aged Out No longer eligible based on patient's age to complete this topic Advance Directives Documents on File Type Date Recorded Patient Bakery Products Checker Expl anation Health Care Decision (hx) 11/09/2023 AD MCDERMOTT DIRECTIVE Health Care Decision (hx) 11/07/2023 AD MCDERMOTT DIRECTIVE Care Teams Head Transfer Clerk Relationship Specialty Start Date End Date Anne-Marie Muro MD [address] [facility] [place] [address] PCP - General Internal Medicine 04/08/11
--- OUTSIDE RECORDS SUMMARY | 2024-06-09 13:29 | XMS_ITS ---
Author Organization [facility] Address [address] [place] [address] Care Team Providers Care Mechanical Facilities Technician Name Role Phone Bhaskar TITUS, Anne-Marie Dennison Primary Care Provider Un available Mc, Mary Jane Unavailable [phone] Shashank Hunt Unavailable [phone] Allergies No Known Allergies REASON FOR VISIT [...] 024 Encounters Encounter Location Date Provider Diagnosis [facility] [address] [place] [address] 12/05/2023 Shashank Hunt Tinea unguium B35.1 ; [...] as necessary. Patient chooses, no pharmaceutical tx (23418) Keratoma Treatment Parring or Cutting o f Benign Hyperkeratotic Lesion(s) 17258 ( >4 Lesions) - The Benign hyperkeratotic lesions, as described above were pared, and/or cut utilizing a sterile #15 blade, tissue nippers, and/or dremel Progress Notes * Sukhjinder REEDOB: 0 (74 yo M)Acc No.[id number]:12/05/2023 Progress Note Patient:?Fitz REED Provider:?Shashank Hunt DPM :1950???Age:73 Y???Sex:Male Jose e:12/05/2023 Address:[address] [place], [place] [address] Pcp:Eddie Isabel Subjective: * Chief Complaints: * [...] 2-3 cups per day. ?Children: yes, 3. ?Exercise: no. ?Marital status: . ?Occupation: Retired-[employer]. * Medications:?TakingAspirin O nce a day Atorvastatin Calcium 80 MG Tablet 1 tablet Orally Once a day Daily Kathleen Escitalopram Oxalate 10 MG Tablet 1 tablet Orally Once a day glipiZIDE 5 MG Tablet Orally Isosorbide Dinitrate 30 MG Tablet 1 tablet Orally once a day Loratadine 10 MG Tablet 1 tablet Orally Once a day LORazepam 0.5 MG Tablet 1 tablet as needed Orally every 6 hrs metFORMIN HCl 1000 MG Tablet Orally twice a day Metoprolol Succinate ER 25 MG Tablet Extended Release 24 Hour 1 tablet Orally Once a day Omeprazole 20 MG Tablet Delayed Release 1 tablet Orally Once a day Symbicort 2 puffs Extra Depth Diabetic Shoes with 3 Pair Custom heat-molded multi-density innersoles for 1 year Dx: Voltaren 1 % Gel as directed Externally Taking Aspirin Once a day Taking Atorvastatin Calcium 80 MG Tablet 1 tablet Orally Once a day Taking Daily Kathleen Taking Escitalopram Oxalate 10 MG Tablet 1 tablet Orally Once a day Taking glipiZIDE 5 MG Tablet Orally Taking Isosorbide Dinitrate 30 MG Tablet 1 tablet Orally once a day Taking Loratadine 10 MG Tablet 1 tablet Orally Once a day Taking LORazepam 0.5 MG Tablet 1 tablet as needed Orally every 6 hrs Taking metFORMIN HCl 1000 MG Tablet Orally twice a day Taking Metoprolol Succinate ER 25 MG Tablet Extended Release 24 Hour 1 tablet Orally Once a day Taking Omeprazole 20 MG Tablet Delayed Release 1 tablet Orally Once a day Taking Symbicort 2 puffs Taking Extra Depth Diabetic Shoes with 3 Pair Custom heat-molded multi-density innersoles for 1 year Dx: Taking Voltaren 1 % Gel as directed Externally Not-Taking/PRNExtra Depth Diabetic Shoes with 3 Pair Custom heat-molded multi-density innersoles for 1 year Dx: prednisoLONE Medication List reviewed and reconciled with the patientNot- Taking/PRN Extra Depth Diabetic Shoes with 3 Pair Custom heat-molded multi-density innersoles for 1 year Dx: Not-Taking/PRN prednisoLONE Medication List reviewed and reconciled with the patient * Allergies:?N.K.D.A.yes[Aller gies Verified] Objective: * Vitals:?Ht: 5ft6in, Wt:200, BMI:32.28, Shoe size: 9, BP:127/67mm Hg, BS: not taklen, Ht-cm: 167.64 cm, Wt-k.72 kg. * Examination: ???General Examination: ?GENERAL APPEARANCE:?pleasant, alert, well nourished, well developed, well hydrated, with good attention to hygene/body habitus, and in no acute distress.?ORIENTED:?person,place, and time.?FOOT EXAM:?Lower Extremity Neurological Exam performed:?Yes ?Visual exam of foot performed:?Yes ?Date?12/05/2023 ?Sensory testing performed:?sensations diminished ?Sensory and motor testing performed:?sensations diminished ?Pedal pulse taking performed:?1+?Ophthalmology Referral: ?DIABETES EYE EXAM?Diabetic Retinopathy Screening:?Yes 2023 ?Findings of Diabetic Eye Exam:?no retinopathy?Neurological: ?SENSORY:?exam demonstrates. reduced vibration lower extremity , [...] as necessary. Patient chooses, no pharmaceutical tx (90716).?Keratoma Treatment:?Parring or Cutting of Benign Hyperkeratotic Lesion(s)?78784 ( >4 Lesions) - The Benign hyperkeratotic lesions, as described above were pared, and/or cut utilizing a sterile #15 blade, tissue nippers, and/or dremel.? * Immunizations:? Influenza (Not administered - Refused: Patient decision) * Procedure Codes:?63810 DEBRI DE NAIL, 6 OR MORE, Modifiers: XS 29421 TRIM SKIN LESIONS, OVER 4, Modifiers: XS * Follow Up:?4 Months * Images: * Sign off status: Completed true * Provider:?Shashank Hunt DPM Date:? 024 Generated for Rosanna clay/Barbara/Jennifer on:?06/09/2024 01:29 PM EST History and Physical Notes * [...] hygene/body habitus, and in no acute distress FOOT EXAM: Lower Extremity Neurological Exa m performed:: Yes Visual exam of foot performed:: Yes Date: 12/05/2023 Sensory testing performed:: sensations d iminished Sensory and motor testing performed:: se nsations diminished Pedal pulse taking performed:: 1+ ORIENTED: person,place, and ti me Ophthalmology Referral [...]
== END 2024-06-09 14:13 | disposition home or self-care (01) ==
PROVIDERS: PCP Internal Medicine; Visit Provider Internal Medicine
DX: J44.9 Chronic obstructive pulmonary disease, unspecified (principal); E11.65 Type 2 diabetes mellitus with hyperglycemia; Z86.0101 Personal history of adenomatous and serrated colon polyps; D64.9 Anemia, unspecified; E78.5 Hyperlipidemia, unspecified; K21.9 Gastro-esophageal reflux disease without esophagitis; K59.00 Constipation, unspecified

== ENCOUNTER → 2024-06-09 10:54 | Outpatient (BNVA) | payer MEDICARE, SELFPAY | PROVIDERS: PCP Internal Medicine; Visit Provider Internal Medicine | DX: J44.9 Chronic obstructive pulmonary disease, unspecified (principal); E11.65 Type 2 diabetes mellitus with hyperglycemia; E78.5 Hyperlipidemia, unspecified; D64.9 Anemia, unspecified; K21.9 Gastro-esophageal reflux disease without esophagitis; K59.00 Constipation, unspecified; Z86.0101 Personal history of adenomatous and serrated colon polyps | CPT/HCPCS: 99496 ==

== ENCOUNTER 2024-06-15 19:36 | Inpatient (IN) | payer MEDICARE, SELFPAY ==
--- NOTE | ~2024-06-15 | XR_ITS ---
EXAMINATION: XR ABDOMEN KUB CLINICAL INDICATION: f/u after gastrograffin enema COMPARISON: Gastrografin enema performed earlier same day. CT abdomen and pelvis 06/15/2024. TECHNIQUE: AP view of the abdomen. FINDINGS: There is residual Gastrografin contrast seen throughout the colon. There is moderate retained stool remain present within predominantly the left hemicolon. Previously seen right hemicolonic and transverse colonic stool has somewhat cleared. There is gaseous distention of the entire transverse colon, measuring up to 11.2 cm. This may represent persistent colonic obstruction versus chronic atonic syndrome. There are scattered sigmoid diverticula noted. No definite small bowel dilatation. No indirect evidence of free air. Lung bases remain clear. Stable osseous appearance. XR/XR KUB IMPRESSION: 1. Persistent water-soluble contrast throughout the entire colon. Partial clearing of stool burden involving the right hemicolon. 2. Distention of the entire colon, with notable gaseous distention of the transverse colon up to 1.2 cm. This may indicate persistent colonic obstruction versus chronic atonic syndrome. 3. No abnormal small bowel dilatation. Electronically signed by: Yan Mcqueen MD 06/19/2024 04:05 PM EDT
--- NOTE | ~2024-06-15 | CT_ITS ---
CLINICAL HISTORY: r o large intestine obstruction CT abdomen and pelvis without contrast Comparison: CT of the abdomen and pelvis from 06/01/2024 Findings: New bibasilar atelectasis and/or consolidation of the imaged lung bases. With small right pleural effusion. Gallbladder wall thickening and pericholecystic fluid are concerning for cholecystitis by CT. The adrenal glands are normal. The spleen is nonenlarged. Mild volume loss of the pancreas is redemonstrated. Liver is unremarkable for noncontrast study. Multiple right-sided nephrolithiasis are redemonstrated, with 9 mm stone in the upper pole of the right kidney. Additional bilateral renal hilar calcifications are favored to be vascular. No hydronephrosis. Multiple small-bowel loops measuring at the upper limits of normal. Transverse colon is dilated measuring 7.5 cm diameter. Change in caliber of the large intestine is most pronounced of the proximal sigmoid colon where wall thickening can be seen with colitis. Other mural lesion not excluded by CT. Gas and stool noted in the mildly dilated appendix. No acute adjacent right lower quadrant stranding at this time. Moderate wall thickening of the urinary bladder is nonspecific and can be seen with cystitis. Prostate gland measures 4.5 cm transverse. Calcified and noncalcified plaque involving the aorta and its branches in this noncontrast study. Small fat containing inguinal hernias. Grade 2 anterolisthesis at L4-L5 with bilateral spondylolysis of the L4. Facet arthropathy is multifocal. Mild vertebral height losses including thoracic vertebrae and L1 appear old/chronic. Mild retrolisthesis at L1-L2. IMPRESSION: 1. Redemonstration of the abnormal dilatation of the large intestine including transverse colon. Abrupt change in caliber of the proximal sigmoid is concerning for mural lesion or colitis of the proximal sigmoid. 2. Abnormal dilatation of the appendix is nonspecific and may be secondary to large intestine obstruction. No acute inflammatory stranding of the right lower quadrant at this time. 3. Nonobstructing nephrolithiasis of the upper pole of the right kidney measures 9 mm. 4. Wall thickening and pericholecystic fluid of the gallbladder concerning for cholecystitis by CT. 5. Bibasilar atelectasis/consolidation, right worse than left. Recommend attention on follow-up to ensure resolution. This document has been electronically signed by: Usman Haines MD on 06/16/2024 00:09:25
--- NOTE | ~2024-06-15 | FL_ITS ---
EXAMINATION: XR BARIUM ENEMA CLINICAL INFORMATION: Severe constipation. The sigmoid colon obstruction. COMPARISON: None available. TECHNIQUE: A KUB was obtained. Retrograde well-inflated rectal catheter was administered. A 50/50 Gastrografin dilated contrast was injected rectally via the rectal catheter under fluoroscopy. Images were obtained during fluoroscopy. After exam patient was able to pass some flatus. FINDINGS: On KUB there is large amount of stool seen within the colon. Following retrograde administration of 3000 mL of dilute Gastrografin there is contrast visualized in the right colon/cecum. There is large amount of stool seen throughout the entire colon. No obstructive narrowing or obstructive mass seen at this time. However limited. Patient was unable to pass any stools hence the catheter was reversed and Gastrografin and stool was collected in the bag as much as possible. FLUOROSCOPY TIME: 1 minute 28 seconds DOSE AREA PRODUCT: 57.51 uGy-m2 (microgray-meter squared) FL/FL enema w gastrografin IMPRESSION: Significant constipation. No obstructive etiology or mass seen. Electronically signed by: Rakesh Jean MD 06/19/2024 03:28 PM EDT
--- NOTE | ~2024-06-15 | XR_ITS ---
CLINICAL HISTORY: sob 1 view chest x-ray Comparison: Chest x-ray from 05/25/2024 Findings: Low lung volumes with mild bibasilar atelectasis/pneumonitis. Likely pleural fluid of the left lung apex. Persistent opacities left lung apex remains nonspecific by radiographs. No chest CT available for review at this time No definite pneumothorax. Imaged mediastinum is unchanged. Degenerative changes include imaged shoulders and AC joints. IMPRESSION: 1. Mild bibasilar atelectasis/pneumonitis. 2. Persistent opacity of the left lung apex with likely small apical left pleural effusion. This document has been electronically signed by: Usman Haines MD on 06/15/2024 21:25:03
--- NOTE | ~2024-06-15 | XR_ITS ---
CLINICAL HISTORY: low suspicion for obstruction 1 view abdomen Comparison: X-ray of the abdomen from 05/25/2024 Findings: Bibasilar atelectasis/pneumonitis in the [id number]. Gaseous distention of the large intestine with colon measuring 9 cm diameter in the left hemiabdomen. No defined small-bowel dilatation of the frontal radiographs of the abdomen. Vascular calcifications are redemonstrated. Degenerative changes are redemonstrated in the partially imaged hips and partially imaged spine. IMPRESSION: 1. Abnormal dilatation of the large intestine concerning for large intestine obstruction. 2. No small bowel dilatation bifrontal radiographs. This document has been electronically signed by: Usman Haines MD on 06/15/2024 21:25:49
[2024-06-15 19:40] VITALS: BP 109/52; BP 126/62; PULSE 83; PULSE 84; RESP 17; TEMP 36.7; O2SAT 92; O2SAT 98; BMI 32.9
--- NOTE | 2024-06-15 19:49 | ECG_ITS ---
Test Reason : SOB Blood Pressure : */* mmHG Vent. Rate : 85 BPM Atrial Rate : 85 BPM P-R Int : 154 ms QRS Dur : 98 ms QT Int : 366 ms P-R-T Axes : 34 82 78 degrees QTcB Int : 435 ms Normal sinus rhythm Normal ECG When compared with ECG of 25-May-2024 17:47, No significant change was found Referred By: Sarahi Ornelas Electronically Signed By: YOCASTA GIL
--- NOTE | 2024-06-15 20:01 | ED.SOB ---
HPI - SOB/Dyspnea General Chief Complaint: Dyspnea Stated Complaint: sob Time Seen by Provider: 06/15/24 19:43 Source: patient and EMS Mode of arrival: EMS Limitations: other (Shortness of breath) History of Present Illness ED Provider: Dr. Sarahi Ornelas HPI Narrative: Patient comes to the emergency room via ambulance complaining of shortness of breath. Patient is known to have history of COPD and uses 3 L at baseline. According to EMS, the patient's called because the patient has been very short of breath. When they arrived, patient's oxygen saturation was 86% on his usual 3 L. patient was given 125 mg of Solu-Medrol, DuoNebs, initiated IV fluids. Patient denies chest pain or shortness of breath. Patient complaining of ongoing constipation issues causing him to have abdominal distention and discomfort. Denies nausea vomiting or diarrhea. Patient denies fever chills, denies UTI symptoms. Related Data Home Medications ?Medication ?Instructions ?Recorded ?Confirmed budesonide-formoterol HFA 160 2 puff inhalation DAILY 03/14/21 06/14/24 mcg-4.5 mcg/actuation aerosol inhaler (Symbicort) calcium 600 mg (as 1 tab PO DAILY 08/04/21 06/14/24 carbonate)-vitamin D3 10 mcg (400 unit) tablet Oxygen Home Use 06/14/22 06/14/24 Previous Rx's ?Medication ?Instructions ?Recorded blood-glucose meter (FarFariayle #1 ea 01/23/22 Lite Meter kit) glipizide 5 mg tablet 5 mg PO BID #270 tabs 09/10/23 escitalopram oxalate 20 mg tablet 20 mg PO DAILY #90 tabs 09/16/23 albuterol sulfate 90 mcg/actuation 2 puff inhalation Q4-6H PRN 10/31/23 aerosol inhaler (Ventolin HFA) shortness of breath or wheezing #8.5 grams atorvastatin 80 mg tablet 80 mg PO BEDTIME #90 tabs 12/04/23 ipratropium 0.5 mg-albuterol 3 mg 3 ml inhalation Q6H PRN wheezing 01/01/24 (2.5 mg base)/3 mL nebulization #180 mL soln lancets 28 gauge (FreeStyle #100 ea 01/31/24 Lancets) omeprazole 20 mg capsule,delayed 20 mg PO DAILY@0630 #30 caps 10/31/24 release blood sugar diagnostic (FreeStyle #50 ea 03/07/24 Lite Strips) polyethylene glycol 3350 17 gram 17 g PO DAILY #100 ea 06/04/24 oral powder packet sennosides 8.6 mg tablet (senna) 8.6 mg PO BEDTIME #90 tabs 06/04/24 lorazepam 1 mg tablet (Ativan) 0.5 mg (1/2 x 1 mg) PO BID PRN 06/05/24 anxiety #30 tabs lactulose 10 gram/15 mL oral 10 g (15 mL) PO DAILY PRN 06/09/24 solution (Constulose) Constipation #1,500 mL linaclotide 145 mcg capsule 145 mcg PO QAM #30 caps 06/09/24 metoprolol tartrate 25 mg tablet 25 mg PO BID #180 tabs 06/09/24 bisacodyl 5 mg tablet,delayed 10 mg (2 x 5 mg) PO ONCE colon 06/12/24 release (Dulcolax (bisacodyl)) prep 10 days #20 tabs metformin 1,000 mg tablet 1,000 mg PO BID #180 tabs 06/12/24 Allergies Allergy/AdvReac Type Severity Reaction Status Date / Time fluticasone furoate Allergy Intermediate Rash Verified 06/15/24 19:51 [From Trelegy Ellipta] vilanterol Allergy Intermediate Rash Verified 06/15/24 19:51 [From Trelegy Ellipta] umeclidinium Allergy Unknown Hives Verified 06/15/24 19:51 [Incruse Ellipta] furosemide [From Lasix] AdvReac Intermediate Hallucinati Verified 06/15/24 19:51 ons Review of Systems Review of Systems: Constitutional : No Weight loss, No Fever, No Chills, No Night Sweats, No Fatigue, No Malaise ENT/Mouth : No Hearing loss, No Ear Pain, No Nasal Congestion, No Sinus Pain, No Hoarseness, No sore throat, No Rhinorrhea, No Swallowing Difficulty Eyes: No Eye Pain, No Swelling, No Redness, No Foreign Body, No Discharge, No Vision Changes Cardiovascular : No Chest Pain, denies orthopnea or palpitations Respiratory : Complaining of worsening cough from baseline, complaining of worsening shortness of breath wheezing Gastrointestinal : No Nausea, No Vomiting, No Diarrhea, complaining of chronic Constipation, complaining of chronic abdominal distention and discomfort Genitourinary : no irregular bleeding, No Dysuria, No Urinary Frequency, No Hematuria, No Urinary Incontinence, No Urgency, No Flank Pain, No Urinary Flow Changes, No Hesitancy Musculoskeletal : No joint pain, No Myalgias, No Joint Swelling Skin : No Skin Lesions, No rash Neuro : No Weakness, No Numbness, No Paresthesias, No Loss of Consciousness, No Dizziness, No Headache Psych : No Anxiety/Panic, No Depression, No SI/HI/AH/VH, No Social Issues, Heme/Lymph: No Bruising, No Bleeding,No Lymphadenopathy Endocrine : No Polyuria, No Polydipsia, No Temperature Intolerance [facility] Past Medical History Medical History Constipation History of adenomatous polyp of colon Acute on chronic respiratory failure with hypoxia and hypercapnia Positive colorectal cancer screening using Cologuard test Respiratory failure with hypoxia and hypercapnia Bilateral carotid artery disease CAD (coronary artery disease) Anxiety and depression Anemia Chronic respiratory failure with hypoxia and hypercapnia Radiation fibrosis of lung HTN (hypertension) Dyslipidemia History of pneumonia Bacteremia due to Enterococcus COPD, severe Diabetes mellitus with hyperglycemia, without long-term current use of insulin Urinary incontinence Asthma Lung cancer Skin cancer Surgical History Hx of heart artery stent History of esophagogastroduodenoscopy (EGD) Hx of colonoscopy Family History Family History Father Medical history non-contributory Mother Medical history non-contributory Unknown family medical history Lung collapse Brother No problems noted. Brother No problems noted. Son Substance use disorder Son No problems noted. Daughter No problems noted. Sister No problems noted. Sister No problems noted. Sister No problems noted. Sister No problems noted. Other HTN (hypertension) Social History Social History Household Members: Family Household Members Other:: grandson Housing: House Are you a primary home care provider to a significant other at home: No Do you presently have visiting nurse or other home services: No Alcohol intake: never Comment: pt encouraged to ring buck for some assistance when ambulating Patient Tobacco Use Status: Former Tobacco user Tobacco use type: Cigarette Smoked in Last 30 Days: No e-Cigarette/Vaping Use: Never Used Use of substances other than those prescribed or required for medical reasons: No Advance Directives: Yes Advance Directives on File: Yes Advance Directives Date on File: 06/08/22 Do you have a plan to hurt others: No Plan service: No Current occupational status: retired Cognitive needs: No Hearing needs: No Vision needs: No Physical Exam Vital Signs: Vital Signs: Last Vital Signs Temp 98.2 F 06/16/24 01:23 Pulse 79 06/16/24 01:23 Resp 20 06/16/24 01:23 BP 117/64 06/16/24 01:23 Pulse Ox 93 06/16/24 01:23 O2 Del Method CPAP 06/16/24 01:23 Oxygen Flow Rate 3 06/15/24 19:40 BMI result Body Mass Index 32.9 Const: Other: Appearance: Alert. Oriented X3. Patient looks somnolent, uncomfortable Eyes: Pupils equal, round and reactive to light. ENT: Pharynx normal. Neck: Normal inspection. Neck supple. No lymph nodes noted. No crepitus CVS: Normal heart rate and rhythm. Pulses normal. Normal S1 and S2 Respiratory: Significantly diminished breath sounds, very mild bilateral wheezing Abdomen: Soft , distended, no significant pain to palpation in any quadrant. Skin: Skin warm and dry. Normal skin color. Normal skin turgor. Extremities: No lower extremity edema. No Lacerations. No Rash Neuro: Moving all extremities. No slurred speech. CN 2 through 12 grossly intact Psych: calm, cooperative Course Course Course Narrative: On arrival, patient receiving IV fluids based on ideal weight of 56 kg, patient is obese. Also, patient empirically being treated with ceftriaxone IV and azithromycin. Patient known to retained CO2, patient's seems somnolent, we will empirically start CPAP. Patient does wear CPAP at bedtime Patient's blood pressure 126/62, heart rate 84, oxygen saturation 98% on 3 L nasal cannula, temperature 98 degrees F. At this time, 20:10, sepsis not suspected All of patient's labs and imaging pending Medications Administered Discontinued Medications Generic Name Dose Route Start Last Admin Trade Name Freq PRN Reason Stop Dose Admin Albuterol/Ipratropium 3 ml 06/15/24 20:22 06/15/24 20:28 Albuterol/Iprat 2.5/0.5mg 3 Ml Ampul.Neb INHALE 06/15/24 20:23 3 ml ONCE ONE Administration Ceftriaxone Sodium 1 gm 06/15/24 19:56 06/15/24 20:12 Ceftriaxone Sodium 1 Gm Vial IVPUSH 06/15/24 19:57 1 gm ONCE ONE Administration Sodium Chloride 1,000 mls @ 999 mls/hr 06/15/24 19:49 06/15/24 21:45 Ns IVCONT 06/15/24 20:49 Infused .Q1H1M ONE Infusion Azithromycin 500 mg/ Sodium 250 mls @ 125 mls/hr 06/15/24 19:56 06/15/24 22:45 Chloride IV 06/15/24 21:55 Infused ONCE ONE Infusion Magnesium Sulfate 2 gm in 50 mls @ 25 mls/hr 06/15/24 19:58 06/15/24 20:38 Magnesium Sulfate/H2o IV 06/15/24 21:57 Infused ONCE ONE Infusion Medical Decision Making Medical Decision Making MDM Narrative: My interpretation of labs: No significant abnormality in patient's hematology. Patient's venous blood gases are abnormal. Patient's pH is 7.24, a pCO2 of 105, bicarb of 45. Chemistry does not show any significant acute abnormality. Normal LFTs, normal troponin, normal BNP. Toxicology negative for EtOH, serology negative for influenza a and B, RSV and COVID X-ray of the chest shows mild bibasilar atelectasis versus pneumonitis, persistent opacity of the left lung, possible left apical pleural effusion? As mentioned above, patient has already been covered with fluids and IV antibiotics. CT scan of the abdomen was able to catch the bottom of the lungs, there are new bibasilar atelectasis versus consolidations a small right pleural effusion. CT scan showed that the gallbladder is thickened, pericholecystic fluid concerning for cholecystitis by CT scan. However, clinically, patient has no right upper quadrant pain. Transfer: Is dilated measuring 7.5 cm in diameter. Possible colitis. Patient is on CPAP. Patient uses CPAP at night as well to sleep. Last time that the patient was here. Patient needed approximately 12 hours to correct. At this time, patient's venous blood gases do not show any significant improvement after 2 hours of CPAP. At this time, patient is awake, alert, sitting in bed talking to us. Patient has had occasional oxygen desaturations when he comes off of oxygen. At this time, we do not have ICU beds. Reviewing patient's medical records from previous admissions. Patient does well after several hours of CPAP and then is able to go to the floor. We may be able to keep the patient here. I discussed the patient with Dr. Abdul and Dr. Yusuf, we will keep the patient in the emergency room until the morning. Then we will repeat blood gases. Is likely that the patient will be ready to go to the floor. Mentioned above, patient is very stable at this time, awake alert, feeling better than when he 1st came in. Regarding the CT scan report from his abdomen. The last time that the patient was here, patient was seen by Gastroenterology. Patient has severe chronic constipation, seems that the issue has not changed. However, they read the patient's CT scan as possible acute cholecystitis. However, LFTs are normal and patient has no right upper quadrant or epigastric pain. In his previous admission, patient was seen by Dr. Gomez from Gastroenterology, patient needed a flexible sigmoidoscopy for possible sigmoid stricture. Patient states that he has a abdominal distention which is at baseline, and has no significant abdominal pain. 2230: Focused exam was done Overall, patient has been covered with IV fluids based on ideal weight, and also already covered with antibiotics. -patient will need to be on CPAP for at least 6 more hours. We can repeat blood gases. Dr. Yusuf agrees that after this time, it is likely that the day team will be able to admit the patient. Given the patient's ED stay, Dr. Abdul will follow up with any changes. Venous gases pending for 06:00 -patient will likely need Gastroenterology consult. It is possible that patient may need also a consult from General surgery. However, it is very unlikely that patient has acute cholecystitis. At this time, 02:10, I evaluated the patient. Patient states that he has some distention but no significant pain. As mentioned above, patient's LFTs normal. At this time, patient's blood pressure 117/64, heart rate 79, respirations 20, oxygen saturation 93% on CPAP Differential Diagnosis Differential Diagnoses: The differential diagnosis associated with the presentation includes (Pneumonia, chronic lung disease, severe constipation, pseudo-obstruction) Admission/Observation Consideration of admission/observation: Escalation of care including admission/observation considered Consult Healthcare Provider Management of the patient was discussed with: Hospitalist Lab Data MDM Lab Attestation statement: I reviewed the patient's lab results. 06/15/24 20:04 06/15/24 20:04 Labs: Lab Results 06/15/24 06/15/24 06/16/24 Range/Units 20:04 20:12 00:25 WBC 5.0 (4.8-10.8) X10*3/uL RBC 3.64 L (4.60-5.80) X10*6/uL Hgb 10.4 L (14.0-18.0) g/dl Hct 34.8 L (42.0-52.0) % MCV 95.6 (80.0-98.0) fL MCH 28.6 (27.0-33.0) pg MCHC 29.9 L (31.0-36.0) g/dl RDW 14.1 (11.0-16.0) % Plt Count 141 L D (160-400) X10*3/uL MPV 9.7 (9.4-12.4) fL Immature Gran % (Auto) 0.6 H (0.0-0.4) % Neut % (Auto) 72.1 (45-73) % Lymph % (Auto) 15.8 L (20-40) % [place] % (Auto) 9.9 (2-11) % Eos % (Auto) 1.2 (0-4) % Baso % (Auto) 0.4 (0-2) % Lymph # (Auto) 0.8 L (1.2-4.9) X10*3/uL [place] # (Auto) 0.5 (0.1-1.2) X10*3/uL Eos # (Auto) 0.1 (0.0-0.4) X10*3/uL Baso # (Auto) 0.0 (0.0-0.2) X10*3/uL Abs Immat Gran (auto) 0.03 (0.00-0.03) X10*3/uL Absolute Neuts (auto) 3.6 (2.0-8.3) x10*3/uL Absolute Nucleated RBC 0.000 (0.0-0.012) X10*3/uL Nucleated RBC % (auto) 0.0 (0.0-0.2) /100WBC VBG pH 7.24 L 7.25 L (7.32-7.43) VBG pCO2 105 95 mmHg VBG pO2 64 63 mmHg VBG HCO3 45 H 42 H (22-26) mmol/L VBG O2 Saturation 93.0 91.0 % VBG Base Excess 13.9 11.7 mmol/L Sodium 142 (135-145) mmol/L Potassium 4.2 (3.3-5.1) mmol/L Chloride 94 L (96-108) mmol/L Carbon Dioxide 41 H* (22-29) mmol/L Anion Gap 11 L (12-20) BUN 8 L (9-16) mg/dL Creatinine 0.82 (0.5-1.4) mg/dL Estim Creat Clear Calc 84.1 Estimated GFR > 60 Random Glucose 201 H (60-115) mg/dL Lactic Acid 1.0 (0.5-2.0) mmol/L Calcium 8.7 (8.4-10.2) mg/dL Total Bilirubin 0.3 (0.0-1.0) mg/dL Direct Bilirubin 0.1 (0.0-0.5) mg/dL AST 20 (5-37) U/L ALT 12 (0-40) U/L Alkaline Phosphatase 95 (39-117) U/L Troponin I High Sens 5.3 D (<3.5-35.0) ng/L B-Natriuretic Peptide 36 (<100) pg/mL Total Protein 7.1 (6.5-8.0) g/dL Albumin 3.7 (3.5-5.0) g/dL Ethyl Alcohol < 10 mg/dL Influenza Type A (PCR) NEGATIVE (Negative) Influenza Type B (PCR) NEGATIVE (Negative) RSV RNA Qual (PCR) NEGATIVE (Negative) SARS-CoV-2 RNA (RT-PCR) NEGATIVE (Negative) Independent Interpretation I performed an independent interpretation of an: Plain X-Ray and CT Scan Radiology Impression Discussion of test interpretation with radiology: I have reviewed the radiologist's reading. Radiologist Impression: New bibasilar atelectasis and/or consolidation of the imaged lung bases. With small right pleural effusion. Gallbladder wall thickening and pericholecystic fluid are concerning for cholecystitis by CT. The adrenal glands are normal. The spleen is nonenlarged. Mild volume loss of the pancreas is redemonstrated. Liver is unremarkable for noncontrast study. Multiple right-sided nephrolithiasis are redemonstrated, with 9 mm stone in the upper pole of the right kidney. Additional bilateral renal hilar calcifications are favored to be vascular. No hydronephrosis. Multiple small-bowel loops measuring at the upper limits of normal. Transverse colon is dilated measuring 7.5 cm diameter. Change in caliber of the large intestine is most pronounced of the proximal sigmoid colon where wall thickening can be seen with colitis. Other mural lesion not excluded by CT. Gas and stool noted in the mildly dilated appendix. No acute adjacent right lower quadrant stranding at this time. Moderate wall thickening of the urinary bladder is nonspecific and can be seen with cystitis. Prostate gland measures 4.5 cm transverse. Calcified and noncalcified plaque involving the aorta and its branches in this noncontrast study. Small fat containing inguinal hernias. Grade 2 anterolisthesis at L4-L5 with bilateral spondylolysis of the L4. Facet arthropathy is multifocal. Mild vertebral height losses including thoracic vertebrae and L1 appear old/chronic. Mild retrolisthesis at L1-L2. IMPRESSION: 1. Redemonstration of the abnormal dilatation of the large intestine including transverse colon. Abrupt change in caliber of the proximal sigmoid is concerning for mural lesion or colitis of the proximal sigmoid. 2. Abnormal dilatation of the appendix is nonspecific and may be secondary to large intestine obstruction. No acute inflammatory stranding of the right lower quadrant at this time. 3. Nonobstructing nephrolithiasis of the upper pole of the right kidney measures 9 mm. 4. Wall thickening and pericholecystic fluid of the gallbladder concerning for cholecystitis by CT. 5. Bibasilar atelectasis/consolidation, right worse than left. Recommend attention on follow-up to ensure resolution. Independent Historian Clinical information obtained from an independent historian. History obtained from or confirmed by: EMS Critical Care Time Critical Care Time Critical Care Time: Yes Total Critical Care Time: 75 Attestation: I have personally provided critical care time. Time includes review of lab data, radiology results, discussion with consultants, and monitoring for potential decompensation. Intervention performed as documented. Discharge Plan Discharge Clinical Impression: Pneumonia, Acute and chronic respiratory failure, Chronic constipation Patient Disposition: Still a Patient Prescriptions: No Action (DME) blood-glucose meter [FreeStyle Lite Meter] Kit See Rx Instructions .Route Qty: 1 0RF Rx Instructions: As directed glipizide 5 mg tablet 5 mg PO BID Qty: 270 1RF albuterol sulfate [Ventolin HFA] 90 mcg/actuation HFA aerosol inhaler 2 puff inhalation Q4-6H PRN (Reason: shortness of breath or wheezing) Qty: 8.5 2RF atorvastatin 80 mg tablet 80 mg PO BEDTIME Qty: 90 1RF ipratropium-albuterol 0.5 mg-3 mg(2.5 mg base)/3 mL solution for nebulization 3 ml inhalation Q6H PRN (Reason: wheezing) Qty: 180 2RF (DME) lancets [FreeStyle Lancets] 28 gauge misc See Rx Instructions .Route Qty: 100 1RF Rx Instructions: Test blood sugar twice omeprazole 20 mg capsule,delayed release(DR/EC) 20 mg PO DAILY@0630 Qty: 30 1RF (DME) FreeStyle Lite Strips Strip See Rx Instructions .Route Qty: 50 7RF Rx Instructions: check fasting glucose once a day AC lorazepam [Ativan] 1 mg tablet 0.5 mg PO BID PRN (Reason: anxiety) Qty: 30 0RF Rx Instructions: Patient may request partial fill metoprolol tartrate 25 mg tablet 25 mg PO BID Qty: 180 1RF linaclotide 145 mcg capsule 145 mcg PO QAM Qty: 30 0RF bisacodyl [Dulcolax (bisacodyl)] 5 mg tablet,delayed release (DR/EC) 10 mg PO ONCE 10 Days Qty: 20 1RF Rx Instructions: Take 2 tablets daily prn for constipation metformin 1,000 mg tablet 1,000 mg PO BID Qty: 180 1RF budesonide-formoterol [Symbicort] 160-4.5 mcg/actuation Hfa Aerosol Inhaler 2 puff INHALATION DAILY calcium carbonate-vitamin D3 600 mg-10 mcg (400 unit) tablet 1 tab PO DAILY polyethylene glycol 3350 17 gram Powder In Packet 17 g PO DAILY Qty: 100 0RF sennosides [senna] 8.6 mg tablet 8.6 mg PO BEDTIME Qty: 90 0RF escitalopram oxalate 20 mg tablet 20 mg PO DAILY Qty: 90 3RF (DME) Oxygen Home Use Kit See Rx Instructions .Route Rx Instructions: As directed lactulose [Constulose] 10 gram/15 mL solution 10 g PO DAILY PRN (Reason: Constipation) Qty: 1500 0RF Print Language: Citizen Of [place]
[2024-06-15 20:10] VITALS: PULSE 80; RESP 20; O2SAT 91
[2024-06-15 20:12] LABS: MANUAL DIFF FLAG NO
[2024-06-15] MEDS: cefTRIAXone sodium 1 GM VIAL IVPUSH (20:12)
[2024-06-15] MEDS: 0.9 % Sodium Chloride 1,000 ML 999 ML IVCONT (20:13)
[2024-06-15] MEDS: Magnesium Sulfate/H2O 2 GM/50 ML PIGGYBACK IV (20:18)
[2024-06-15 20:21] LABS: Venous Blood Gas Refer to POC result
[2024-06-15] MEDS: Azithromycin 500 MG in 0.9 % Sodium Chloride 250 ML 125 MG IV (20:27)
[2024-06-15 20:28] VITALS: BP 109/56; PULSE 80; PULSE 87; RESP 18; RESP 19; O2SAT 90; O2SAT 93
[2024-06-15] MEDS: Albuterol/Iprat 2.5/0.5MG 3 ML AMPUL.NEB INHALE (20:28)
[2024-06-15 20:35] LABS: B Type Natriuretic Peptide 36 pg/mL (<100); VBG pH 7.24 (7.32-7.43)
[2024-06-15 20:36] LABS: Troponin-I High Sensitivity 5.3 ng/L (<3.5-35.0); VBG HCO3 45 mmol/L (22-26); VBG pCO2 105 mmHg; VBG pO2 64 mmHg
[2024-06-15 20:37] LABS: Alanine Aminotransferase 12 U/L (0-40); Albumin Level 3.7 g/dL (3.5-5.0); Alkaline Phosphatase 95 U/L (39-117); Anion Gap 11 (12-20); Aspartate Amino Transferase 20 U/L (5-37); Bilirubin Direct 0.1 mg/dL (0.0-0.5); Bilirubin Total 0.3 mg/dL (0.0-1.0); Blood Urea Nitrogen 8 mg/dL (9-16); Calcium 8.7 mg/dL (8.4-10.2); Carbon Dioxide 41 mmol/L (22-29); Chloride 94 mmol/L (96-108); Creatinine Clr Calc Pharmacy 84.1; Estimated Glomerular Filt Rate > 60; Ethanol < 10 mg/dL; Glucose Random 201 mg/dL (60-115); Potassium 4.2 mmol/L (3.3-5.1); Sodium 142 mmol/L (135-145); Total Protein 7.1 g/dL (6.5-8.0)
[2024-06-15 20:39] LABS: VBG Base Excess 13.9 mmol/L
[2024-06-15 20:59] LABS: Basophils Percent Auto 0.4 % (0-2); Eosinophils Absolute Auto 0.1 X10*3/uL (0.0-0.4); Eosinophils Percent Auto 1.2 % (0-4); Hematocrit 34.8 % (42.0-52.0); Hemoglobin 10.4 g/dl (14.0-18.0); Imm Gran Abs Auto 0.03 X10*3/uL (0.00-0.03); Imm Gran Pct Auto 0.6 % (0.0-0.4); Lymphocytes Absolute Auto 0.8 X10*3/uL (1.2-4.9); Lymphocytes Percent Auto 15.8 % (20-40); Mean Corpuscular HGB Conc 29.9 g/dl (31.0-36.0); Mean Corpuscular Hemoglobin 28.6 pg (27.0-33.0); Mean Corpuscular Volume 95.6 fL (80.0-98.0); Mean Platelet Volume 9.7 fL (9.4-12.4); Monocytes Absolute Auto 0.5 X10*3/uL (0.1-1.2); Monocytes Percent Auto 9.9 % (2-11); Neutrophils Absolute Auto 3.6 x10*3/uL (2.0-8.3); Neutrophils Percent Auto 72.1 % (45-73); Platelet Count 141 X10*3/uL (160-400); Red Blood Count 3.64 X10*6/uL (4.60-5.80); Red Cell Distribution Width 14.1 % (11.0-16.0)
[2024-06-15 21:09] LABS: Influenza A PCR NEGATIVE (Negative); Influenza B PCR NEGATIVE (Negative); Resp Syncy Virus RNA Qual PCR NEGATIVE (Negative); SARS COV2 PCR INHOUSE NEGATIVE (Negative)
--- OUTSIDE RECORDS SUMMARY | 2024-06-15 21:39 | XMS_ITS ---
Author Organization [facility] Address [address] [place] [address] Care Team Providers Care Soil Chemist Name Role Phone Bhaskar TITUS, Anne-Marie Dennison Primary Care Provider Un available Mary Jane Mc Unavailable [phone] Medications Medication SIG (Take, Route, Frequency, Duration) [...] Not-Taking Encounters Encounter Location Date Provider Diagnosis [facility] [address] [place] [address] 04/06/2024 Mary Jane Mc Plan Of Treatment No Information Progress Notes * Sonia REED: 0 (74 yo M)Acc No.[id number]:04/06/2024 Progress Note Patient:?Fitz REED Provider:?Mary Jane Mc DPM :1950???Age:74 Y???Sex:Male Jose e:04/06/2024 Address:[address] [place], [place] [id number] Pcp:Eddie Isabel Subjective: * Chief Complaints: * [...] Jane Mc DPM Date:? Generated for Rosanna clay/Barbara/eTkevinsmitting on:?06/15/2024 09:39 PM EDT
--- OUTSIDE RECORDS SUMMARY | 2024-06-15 21:39 | XMS_ITS | Clinical Summary ---
Author Organization 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
--- OUTSIDE RECORDS SUMMARY | 2024-06-15 21:40 | XMS_ITS ---
Author Organization [facility] Address [address] [facility] [place] [address] Care Team Providers Care Tire Specialist Name Role Phone Bhaskar TITUS, Anne-Marie Dennison Primary Care Provider Un available Mc, Mary Jane Unavailable [phone] Shashank Hunt Unavailable [phone] Allergies No Known Allergies REASON FOR VISIT [...] 024 Encounters Encounter Location Date Provider Diagnosis [facility] [place] [address] [place] [address] 12/05/2023 Shashank Hunt Tinea unguium B35.1 ; [...] as necessary. Patient chooses, no pharmaceutical tx (24798) Keratoma Treatment Parring or Cutting o f Benign Hyperkeratotic Lesion(s) 43624 ( >4 Lesions) - The Benign hyperkeratotic lesions, as described above were pared, and/or cut utilizing a sterile #15 blade, tissue nippers, and/or dremel Progress Notes * Sukhjinder REEDOB: 0 (74 yo M)Acc No.[id number]:12/05/2023 Progress Note Patient:?Fitz REED Provider:?Shashank Hunt DPM :1950???Age:73 Y???Sex:Male Jose e:12/05/2023 Address:[address] [place], [place] [address] Pcp:Eddie Isabel Subjective: * Chief Complaints: * [...] as necessary. Patient chooses, no pharmaceutical tx (36394).?Keratoma Treatment:?Parring or Cutting of Benign Hyperkeratotic Lesion(s)?72147 ( >4 Lesions) - The Benign hyperkeratotic lesions, as described above were pared, and/or cut utilizing a sterile #15 blade, tissue nippers, and/or dremel.? * Immunizations:? Influenza (Not administered - Refused: Patient decision) * Procedure Codes:?24590 DEBRI DE NAIL, 6 OR MORE, Modifiers: XS 62951 TRIM SKIN LESIONS, OVER 4, Modifiers: XS * Follow Up:?4 Months * Images: * Sign off status: Completed true * Provider:?Shashank Hunt DPM Date:? 024 Generated for Rosanna clay/Barbara/Jennifer on:?06/15/2024 09:39 PM EDT History and Physical Notes * HPI (History [...]
--- OUTSIDE RECORDS SUMMARY | 2024-06-15 21:40 | XMS_ITS | Patient Health Record ---
Author Organization [facility] Address [address] [place] [address] Care Team Providers Care Mailer Apprentice Name Role Phone Bhaskar TITUS, Anne-Marie Dennison Primary Care Provider Un available McMary Jane julian Unavailable [phone] Shashank Hunt Unavailable [phone] Allergies No Known Allergies Reason For Referral [...] Status Risk Notes Problem Acquired hallux valgus (10250684) Hallux valgus (acquired), right foot (M20.11) Active confirmed Problem Acquired hammer toe of right foot (9820168634785995 ) Other hammer toe(s) (acquired), right foot (M20.41) Active confirmed Problem Polyneuropathy due to type 2 diabetes mellitus (797883390) Type 2 diabetes mellitus with diabetic polyneuropathy (E11.42) Active confirmed Vital Signs Blood pressure diastolic 67 mm Hg 12/05/2023 Height 5ft6in in 12/05/2023 Blood pressure systolic 127 mm Hg 12/05/2023 Weight 200 lbs 12/05/2023 BMI 32.28 kg/m2 12/05/2023 Encounters Encounter Location Date Provider Diagnosis [address] [address] 12/05/2023 Shashank Hunt Tinea unguium B35.1 ; Type 2 diabetes mellitus with diabetic polyneuropathy E11.42 ; Pain in right toe(s) M79.674 ; Pain in left toe(s) M79.675 ; Other hammer toe(s) (acquired), right foot M20.41 ; Hallux valgus (acquired), right foot M20.11 ; Xerosis cutis L85.3 and Ingrowing nail L60.[address] [address] 07/15/2023 Shashank Hunt [facility] [address] 04/06/2024 Mary Jane Mc Assessments Encounter Date [...] Treatment Pending Test Test Name Order Date 74349-[id number] NAIL, 6 OR MORE 02/03/2018 53193-YAEBNNL NAIL, 6 OR MORE 11/04/2017 99297-HWYQ SKIN LESIONS, OVER 4 02/04/20 18 86769-LSRR SKIN LESIONS, OVER 4 11/05/19 18 10480-JEEJ SKIN LESIONS, OVER 4 05/05/19 19 10059-UKLL SKIN LESIONS, OVER 4 08/05/19 19 17745-TCLI SKIN LESIONS, OVER 4 11/06/19 19 75813-RTLX SKIN LESIONS, OVER 4 02/10/20 19 67012-SSWM SKIN LESIONS, OVER 4 06/10/19 20 51144-UYEW SKIN LESIONS, OVER 4 12/09/19 20 58906-BSJD SKIN LESIONS, OVER 4 03/23/20 20 47326-HUNP SKIN LESIONS, OVER 4 07/12/19 21 31618-LRXG SKIN LESIONS, OVER 4 11/04/19 21 20818-MKPF SKIN LESIONS, OVER 4 02/14/20 21 51375-DMVX SKIN LESIONS, OVER 4 06/05/19 22 Insurance Providers Payer Name Payer Address Payer Phone Subscriber Number Group Number Insured Name Patient Relationship to Insured Coverage Start Date Coverage End Date Medicare National [employer] [address] [place] [address] [id number] Fitz Reed Self - patient is the insured [employer] [address] [place] [address] [phone] [id number] Fitz Reed Self - patient is the [...]
[2024-06-15 21:52] VITALS: BP 116/65; PULSE 91; RESP 20; O2SAT 89
[2024-06-15 22:12] VITALS: BP 110/59; PULSE 94; RESP 16; O2SAT 88
--- NOTE | 2024-06-15 23:00 | PC.NURSE ---
per RT/MD pt can go to CT scan on nasal cannula, upon return pt found to be 80% on CPAP, MD at bedside titrated up to 50% on CPAP with +effect, pt titrated back down to 30% and sats remain 89-91%. nad.
[2024-06-16] VITALS (12 sets, daily range): BP systolic 106–133; BP diastolic 52–64; PULSE 74–95; RESP 12–24; TEMP 36.7–36.9; O2SAT 92–97
--- NOTE | 2024-06-16 | PC.NURSE ---
pt found to be 83-84% on 30% CPAP, increased to 40% per MD, RT aware. pt denies sob, no wheezing ausc. resp even and unlabored. sats up to 91-92%.
[2024-06-16 00:37] LABS: Venous Blood Gas Refer to POC result
[2024-06-16 00:44] LABS: VBG Base Excess 11.7 mmol/L; VBG HCO3 42 mmol/L (22-26); VBG pCO2 95 mmHg; VBG pH 7.25 (7.32-7.43); VBG pO2 63 mmHg
--- NOTE | 2024-06-16 01:32 | PC.NURSE ---
pt adamantly refusing to lay back in stretcher. offered hospital bed, refused. sitting at edge of bed. pt is axox4, states he sleeps in a recliner at home. pt placed in a recliner, cpap machine on. vitals as documented. nad. call buck within reach and using appropriately.
[2024-06-16 04:32] LABS: Venous Blood Gas Refer to POC result
[2024-06-16 04:34] LABS: VBG Base Excess 13.2 mmol/L; VBG HCO3 43 mmol/L (22-26); VBG pCO2 90 mmHg; VBG pH 7.28 (7.32-7.43); VBG pO2 78 mmHg
[2024-06-16 07:14] LABS: Glucose, Whole Blood 203 mg/dL (60-115)
[2024-06-16 08:01] LABS: Venous Blood Gas Refer to POC result
[2024-06-16 08:02] LABS: VBG HCO3 46 mmol/L (22-26); VBG pCO2 81 mmHg; VBG pH 7.36 (7.32-7.43); VBG pO2 81 mmHg
--- NOTE | 2024-06-16 10:38 | PM.IMHP ---
History of Present Illness Date of Service: 06/16/24 Attending physician on admission: Arsenio Ventura Chief Complaint: sob 74-year-old male with history of COPD with chronic hypoxic hypercapnic respiratory failure on 3 L supplemental O2 at baseline, history of lung cancer s/p chemo and radiataion 10 yeras ago, cirrhosis complicated by ascites, oat-hgxuxec-qhzajerju type 2 diabetes coronary artery disease s/p PCI, mood disorder, hyperlipidemia, LIBRADO on CPAP, and urinary incontinence presented to the ED for evaluation of SOB. He reports he has been short of breath and hoarse x 2 weeks that have been progressively worsening. He has increased use of rescue inhalers. Reports occasional productive cough with white sputum production. He is also reporting mild abdominal discomfort and distension that has been unchanged since last admission. Also wheezing and orthopnea (chronic). No fevers, chills, n/v/d, palpitations, or chest pain. No known sick contacts. Per patient and EMS O2 saturation was in the 80s. On arrival he was placed on CPAP. VBG shows a mild respiratory acidosis with pH 7.24, pCO2 105, bicarb 45. He was also given IV methylprednisolone DuoNebs with improvement in pH to 7.36, pCO2 81, and bicarb 46. He denies any confusion. Hematology studies significant for a pancytopenia WBC 3.9, H/H 9.9/32 point, platelets 141. Renal function baseline, electrolyte levels within normal limits except for chloride 94 CO2 39. Liver function tests within normal limits. BNP 36. Negative for influenza, COVID-19, RSV. CT abdomen/pelvis shows redemonstration of the abnormal dilatation of the large intestine including transverse colon with an abrupt change in the caliber of the proximal sigmoid concerning from year old lesion or colitis of the proximal sigmoid. There is also abnormal dilatation of the appendix possibly secondary to large intestine obstruction but no acute inflammatory stranding. There is also wall thickening and pericholecystic fluid of the gallbladder concerning for cholecystitis by CT. CXR shows he persistent opacity of the left lung apex with likely small apical left pleural effusion as well as mild bibasilar atelectasis and pneumonitis. Chest CT 03/31 shows a stable left apical opacity with associated left upper lobe collapse. In the ED, given IV magnesium Zithromax, g ceftriaxone, DuoNeb, 1 IV NS at 60 units lispro. He was given 125 mg IV methylprednisolone EN route by EMS along with a DuoNeb. He will be admitted for further management acute COPD exacerbation. Review of Systems Review of Systems: Yes all other systems are reviewed and are negative [facility] Medical History Constipation History of adenomatous polyp of colon Acute on chronic respiratory failure with hypoxia and hypercapnia Positive colorectal cancer screening using Cologuard test Respiratory failure with hypoxia and hypercapnia Bilateral carotid artery disease CAD (coronary artery disease) Anxiety and depression Anemia Chronic respiratory failure with hypoxia and hypercapnia Radiation fibrosis of lung HTN (hypertension) Dyslipidemia History of pneumonia Bacteremia due to Enterococcus COPD, severe Diabetes mellitus with hyperglycemia, without long-term current use of insulin Urinary incontinence Asthma Lung cancer Skin cancer Family History Father Medical history non-contributory Mother Medical history non-contributory Unknown family medical history Lung collapse Brother No problems noted. Brother No problems noted. Son Substance use disorder Son No problems noted. Daughter No problems noted. Sister No problems noted. Sister No problems noted. Sister No problems noted. Sister No problems noted. Other HTN (hypertension) Surgical History Hx of heart artery stent History of esophagogastroduodenoscopy (EGD) Hx of colonoscopy Social History Household Members: Family Household Members Other:: grandson Housing: House Are you a primary insurance healthcare consultant to a significant other at home: No Do you presently have visiting nurse or other home services: No Alcohol intake: never Comment: pt encouraged to ring buck for some assistance when ambulating Patient Tobacco Use Status: Former Tobacco user Tobacco use type: Cigarette Smoked in Last 30 Days: No e-Cigarette/Vaping Use: Never Used Use of substances other than those prescribed or required for medical reasons: No Advance Directives: Yes Advance Directives on File: Yes Advance Directives Date on File: 06/08/22 Do you have a plan to hurt others: No Plan service: No Current occupational status: retired Cognitive needs: No Hearing needs: No Vision needs: No Meds Allergies Allergy/AdvReac Type Severity Reaction Status Date / Time fluticasone furoate Allergy Intermediate Rash Verified 06/15/24 19:51 [From Trelegy Ellipta] vilanterol Allergy Intermediate Rash Verified 06/15/24 19:51 [From Trelegy Ellipta] umeclidinium Allergy Unknown Hives Verified 06/15/24 19:51 [Incruse Ellipta] furosemide [From Lasix] AdvReac Intermediate Hallucinati Verified 06/15/24 19:51 ons Home Medications ?Medication ?Instructions ?Recorded ?Confirmed ?Last Taken ?Type budesonide-formoterol HFA 160 2 puff inhalation DAILY 03/14/21 06/16/24 06/15/24 History mcg-4.5 mcg/actuation aerosol inhaler (Symbicort) calcium 600 mg (as 1 tab PO DAILY 08/04/21 06/16/24 06/15/24 History carbonate)-vitamin D3 10 mcg (400 unit) tablet Oxygen Home Use 06/14/22 06/14/24 Unknown History azithromycin 500 mg tablet 500 mg PO MOWEFR 06/16/24 06/16/24 06/15/24 History bisacodyl 5 mg tablet,delayed 10 mg PO DAILY PRN constipation 06/16/24 06/16/24 Unknown History release (Laxative (bisacodyl)) linaclotide 145 mcg capsule 145 mcg PO DAILY 06/16/24 06/16/24 06/15/24 History polyethylene glycol 3350 17 gram 17 g PO DAILY PRN Constipation 06/16/24 06/16/24 06/15/24 History oral powder packet sennosides 8.6 mg tablet (senna) 8.6 mg PO BEDTIME PRN Constipation 06/16/24 06/16/24 Unknown History Physical Exam Vital Signs and Narrative: Vital Signs: Last Vital Signs Temp 98.1 F 06/16/24 08:47 Pulse 80 06/16/24 08:47 Resp 20 06/16/24 08:47 BP 123/63 06/16/24 08:47 Pulse Ox 97 06/16/24 08:47 O2 Del Method Nasal Cannula 06/16/24 08:47 O2 Flow Rate 3 06/16/24 08:47 Oxygen Flow Rate 3 06/15/24 19:40 BMI result Body Mass Index 32.9 Constitutional - Awake and Alert, No apparent distress Eyes - PERRLA, EOMI Cardiovascular - S1S2, RRR, 1+ ble edema, systolic ejection murmur Respiratory - Normal lung expansion, Normal respiratory effort, No respiratory distress, diminished bilaterally Gastrointestinal - mild diffuse ttp, distended with fluid wave; +BS; No rebound or guarding Extremities - no calf tenderness bilaterally, no swelling Skin - Warm/Dry Neurological - Alert & oriented x3 Psychological - Appropriate affect Results Labs 06/16/24 11:00 06/16/24 11:00 Labs: Laboratory Results - last 24 hr 06/15/24 06/15/24 06/16/24 20:04 20:12 00:25 MCV 95.6 MCH 28.6 MCHC 29.9 L RDW 14.1 Plt Count 141 L D MPV 9.7 Immature Gran % (Auto) 0.6 H Neut % (Auto) 72.1 Lymph % (Auto) 15.8 L [place] % (Auto) 9.9 Eos % (Auto) 1.2 Baso % (Auto) 0.4 Lymph # (Auto) 0.8 L [place] # (Auto) 0.5 Eos # (Auto) 0.1 Baso # (Auto) 0.0 Abs Immat Gran (auto) 0.03 Absolute Neuts (auto) 3.6 Absolute Nucleated RBC 0.000 Nucleated RBC % (auto) 0.0 VBG pH 7.24 L 7.25 L VBG pCO2 105 95 VBG pO2 64 63 VBG HCO3 45 H 42 H VBG O2 Saturation 93.0 91.0 VBG Base Excess 13.9 11.7 Anion Gap 11 L Estim Creat Clear Calc 84.1 Estimated GFR > 60 POC Glucose Random Glucose 201 H Lactic Acid 1.0 Calcium 8.7 Total Bilirubin 0.3 Direct Bilirubin 0.1 AST 20 ALT 12 Alkaline Phosphatase 95 B-Natriuretic Peptide 36 Total Protein 7.1 Albumin 3.7 Ethyl Alcohol < 10 Influenza Type A (PCR) NEGATIVE Influenza Type B (PCR) NEGATIVE RSV RNA Qual (PCR) NEGATIVE SARS-CoV-2 RNA (RT-PCR) NEGATIVE 06/16/24 06/16/24 06/16/24 04:30 07:10 07:59 MCV MCH MCHC RDW Plt Count MPV Immature Gran % (Auto) Neut % (Auto) Lymph % (Auto) [place] % (Auto) Eos % (Auto) Baso % (Auto) Lymph # (Auto) [place] # (Auto) Eos # (Auto) Baso # (Auto) Abs Immat Gran (auto) Absolute Neuts (auto) Absolute Nucleated RBC Nucleated RBC % (auto) VBG pH 7.28 L 7.36 VBG pCO2 90 81 VBG pO2 78 81 VBG HCO3 43 H 46 H VBG O2 Saturation 97.0 99.0 VBG Base Excess 13.2 17.0 Anion Gap Estim Creat Clear Calc Estimated GFR POC Glucose 203 H Random Glucose Lactic Acid Calcium Total Bilirubin Direct Bilirubin AST ALT Alkaline Phosphatase B-Natriuretic Peptide Total Protein Albumin Ethyl Alcohol Influenza Type A (PCR) Influenza Type B (PCR) RSV RNA Qual (PCR) SARS-CoV-2 RNA (RT-PCR) Assessment and Plan (1) Acute and chronic respiratory failure: Status: Acute (2) Acute exacerbation of chronic obstructive pulmonary disease: Status: Resolved Plan 74-year-old male with history of COPD with chronic hypoxic hypercapnic respiratory failure on 3 L supplemental O2 at baseline, history of lung cancer s/p chemo and radiataion 10 years ago, cirrhosis complicated by ascites, bva-yfyzltk-vosrpgqzd type 2 diabetes coronary artery disease s/p PCI, mood disorder, hyperlipidemia, LIBRADO on CPAP, and urinary incontinence admitted for further management of acute COPD exacerbation. #Acute COPD exacerbation with acute on chronic hypoxic and hypercapnic respiratory -CXR with atelectasis and pneumonitis. PReviously seen left apex opacity. -negative for COVID-19, RSV, influenza. Check full respiratory panel -IV methylprednisolone -DuoNebs q.4h while awake and -IV azithromycin for pleiotropic effect -continue 3 L oxygen via nasal which is home dose. CPAP p.r.n. 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 and pancytopenia -some abdominal distention which could be contributing to shortness of breath -however no ascites noted CT abdomen/pelvis -abdominal ultrasound if symptoms do not improved therapeutic paracentesis -LFTs within normal limits -LFTs and CBC # insulin-dependent type 2 diabetes -POC glucose, diabetic diet -sliding scale, hold oral antihyperglycemics # CAD/hyperlipidemia -continue statin, beta-arnold # hypertension -blood pressure reasonably controlled -continue metoprolol # mood disorder -continue home medications # GERD -PPI # chronic constipation -continue home medications #Incidentalomas -CT abdomen/pelvis shows redemonstration of the abnormal dilatation of the large intestine including transverse colon with an abrupt change in the caliber of the proximal sigmoid concerning from year old lesion or colitis of the proximal sigmoid. There is also abnormal dilatation of the appendix possibly secondary to large intestine obstruction but no acute inflammatory stranding. There is also wall thickening and pericholecystic fluid of the gallbladder concerning for cholecystitis by CT. -patient not currently exhibiting GI symptoms -patient underwent sigmoidoscopy 06/03 while admitted showing diverticulosis and internal hemorrhoids polyps consistent with fragments of tubular adenoma. Negative for high-grade dysplasia or carcinoma -monitor and consider General surgery or Gastroenterology consult if indicated DVT prophylaxis-Lovenox Full code Patient requires inpatient stay at least 2 midnights due to COPD exacerbation with acute chronic hypoxic hypercapnic respiratory failure and acute respiratory acidosis requiring IV steroids close monitoring of CO2 levels and vital signs Quality Stroke Does the patient have a stroke diagnosis?: No VTE Prior VTE?: No VTE Risk Level:: Medical - moderate - high VTE Device Contraindication: Treatment Not Indicated VTE Drug Contraindication: N/A - Med Ordered
--- NOTE | 2024-06-16 10:48 | PHA.MEDREC ---
Addendum entered by Rene Vasquez 06/16/24 11:14: reviewed Original Note: Pharmacy Consult ? Medication Reconciliation Pharmacy has completed the medication reconciliation.Spoke to patient to confirm med list. Patient states he was just discharged from [facility] 06/04/24 and nothing has changed. Utilized claims and discharge packet to confirm med list.
[2024-06-16 11:06] LABS: MANUAL DIFF FLAG NO
[2024-06-16 11:08] LABS: Hematocrit 32.5 % (42.0-52.0); Hemoglobin 9.9 g/dl (14.0-18.0); Imm Gran Abs Auto 0.02 X10*3/uL (0.00-0.03); Imm Gran Pct Auto 0.5 % (0.0-0.4); Lymphocytes Absolute Auto 0.5 X10*3/uL (1.2-4.9); Lymphocytes Percent Auto 12.8 % (20-40); Mean Corpuscular HGB Conc 30.5 g/dl (31.0-36.0); Mean Corpuscular Volume 95.3 fL (80.0-98.0); Mean Platelet Volume 9.9 fL (9.4-12.4); Monocytes Absolute Auto 0.4 X10*3/uL (0.1-1.2); Monocytes Percent Auto 10.8 % (2-11); Neutrophils Percent Auto 75.9 % (45-73); Platelet Count 141 X10*3/uL (160-400); Red Blood Count 3.41 X10*6/uL (4.60-5.80); Red Cell Distribution Width 13.8 % (11.0-16.0); White Blood Count 3.9 X10*3/uL (4.8-10.8)
[2024-06-16 11:21] LABS: Anion Gap 9 (12-20); Blood Urea Nitrogen 12 mg/dL (9-16); Calcium 8.3 mg/dL (8.4-10.2); Carbon Dioxide 39 mmol/L (22-29); Chloride 94 mmol/L (96-108); Creatinine Clr Calc Pharmacy 85.1; Estimated Glomerular Filt Rate > 60; Glucose Random 239 mg/dL (60-115); Potassium 4.7 mmol/L (3.3-5.1); Sodium 137 mmol/L (135-145)
[2024-06-16 11:43] LABS: Glucose, Whole Blood 283 mg/dL (60-115)
[2024-06-16] MEDS: Insulin Lispro 100 UNIT/ML 3 ML VIAL SUBCUT ×3 (11:44→20:56)
[2024-06-16] MEDS: methylPREDNISolone Sod Succ 40 MG/ML VIAL IVPUSH (13:04)
[2024-06-16] MEDS: levalbuterol HCL 2.5 MG, Ipratropium Bromide 0.5 MG INHALE ×2 (15:28→19:30)
[2024-06-16] MEDS: LORazepam 0.5 MG TABLET PO ×2 (16:32→21:51)
[2024-06-16] MEDS: 0.9 % Sodium Chloride Flush 3 ML SYRINGE IVFLUSH (17:32)
--- NOTE | 2024-06-16 18:27 | PC.NURSE ---
Dinner trays still not available. no POC checked yet due to this
[2024-06-16 18:41] LABS: Glucose, Whole Blood 320 mg/dL (60-115)
[2024-06-16] MEDS: Atorvastatin Calcium 80 MG TABLET PO (20:34)
[2024-06-16] MEDS: Metoprolol Tartrate 25 MG TABLET PO (20:34)
[2024-06-16] MEDS: Azithromycin 500 MG in 0.9 % Sodium Chloride 250 ML 125 MG IV (20:45)
[2024-06-16 20:53] LABS: Glucose, Whole Blood 342 mg/dL (60-115)
[2024-06-17] VITALS (8 sets, daily range): BP systolic 114–133; BP diastolic 58–62; PULSE 73–99; RESP 16–20; TEMP 36.4–36.8; O2SAT 90–96
[2024-06-17] MEDS: methylPREDNISolone Sod Succ 40 MG/ML VIAL IVPUSH ×2 (00:44→12:41)
[2024-06-17] MEDS: 0.9 % Sodium Chloride Flush 3 ML SYRINGE IVFLUSH ×3 (00:57→16:37)
[2024-06-17 05:34] LABS: Basophils Percent Auto 0.2 % (0-2); Hematocrit 31.2 % (42.0-52.0); Hemoglobin 9.7 g/dl (14.0-18.0); Imm Gran Abs Auto 0.02 X10*3/uL (0.00-0.03); Imm Gran Pct Auto 0.3 % (0.0-0.4); Lymphocytes Absolute Auto 0.4 X10*3/uL (1.2-4.9); Lymphocytes Percent Auto 6.3 % (20-40); MANUAL DIFF FLAG SCAN; Mean Corpuscular HGB Conc 31.1 g/dl (31.0-36.0); Mean Corpuscular Volume 93.4 fL (80.0-98.0); Mean Platelet Volume 9.9 fL (9.4-12.4); Monocytes Absolute Auto 0.2 X10*3/uL (0.1-1.2); Monocytes Percent Auto 2.9 % (2-11); Neutrophils Absolute Auto 5.9 x10*3/uL (2.0-8.3); Neutrophils Percent Auto 90.3 % (45-73); Platelet Count 169 X10*3/uL (160-400); Red Blood Count 3.34 X10*6/uL (4.60-5.80); Red Cell Distribution Width 13.8 % (11.0-16.0); SCAN SMEAR FLAG 1; White Blood Count 6.6 X10*3/uL (4.8-10.8)
[2024-06-17] MEDS: Omeprazole 20 MG CAPSULE.DR PO (05:40)
[2024-06-17 05:58] LABS: SLIDE REVIEW VERIFIED
[2024-06-17 06:09] LABS: Anion Gap 11 (12-20); Blood Urea Nitrogen 15 mg/dL (9-16); Calcium 9.3 mg/dL (8.4-10.2); Carbon Dioxide 41 mmol/L (22-29); Chloride 93 mmol/L (96-108); Creatinine Clr Calc Pharmacy 83.1; Estimated Glomerular Filt Rate > 60; Glucose Random 217 mg/dL (60-115); Potassium 4.6 mmol/L (3.3-5.1); Sodium 140 mmol/L (135-145)
[2024-06-17 07:58] LABS: Glucose, Whole Blood 249 mg/dL (60-115)
[2024-06-17] MEDS: Metoprolol Tartrate 25 MG TABLET PO ×2 (07:59→20:25)
[2024-06-17] MEDS: Escitalopram Oxalate 20 MG TABLET PO (07:59)
[2024-06-17] MEDS: Insulin Lispro 100 UNIT/ML 3 ML VIAL SUBCUT ×4 (08:00→20:25)
[2024-06-17] MEDS: Insulin Glargine,Hum.rec.anlog 100 UNIT/ML 10 ML VIAL 10 UNIT SUBCUT (08:30)
[2024-06-17] MEDS: levalbuterol HCL 2.5 MG, Ipratropium Bromide 0.5 MG INHALE ×3 (08:47→19:26)
--- NOTE | 2024-06-17 09:21 | MHC.CM.PN ---
Addendum entered by Christine David 06/17/24 09:36: + HCP ON FILE AND VERIFIED Original Note: [facility] DELIVERED PT LIVES WITH [facility], PT IS FUNCTIONALLY INDEPENDENT BUT DOES USE A WALKER PRN AND HAS A CANE. NO CURRENT SERVICES. PT HAS HOME 02 VIA [place] AND A CPAP AT [facility]. PCP DR. HAYWARD AT [facility]. DP: HOME , NO SERVICES VS HOME WITH SERVICES. PT IS OPEN TO [facility] IF RECOMMENDED. NO PREFERENCE TO AGENCY. PT HAS OWN [facility] HOME. CM WILL CONTINUE TO FOLLOW FOR ANY CHANGE TO DC PLAN/NEEDS
[2024-06-17] MEDS: polyethylene glycoL 3350 17 GM POWD.PACK PO (10:53)
[2024-06-17] MEDS: Bumetanide 1 MG/4 ML VIAL 0.25 MG IVPUSH (10:53)
[2024-06-17 11:19] LABS: Glucose, Whole Blood 272 mg/dL (60-115)
[2024-06-17] MEDS: cefTRIAXone sodium 1 GM VIAL IVPUSH (11:19)
[2024-06-17] MEDS: Simethicone 80 MG TAB.CHEW PO ×2 (11:23→20:25)
--- NOTE | 2024-06-17 12:40 | HO.PM.IMPN ---
Subjective Subjective Date of Service: 06/17/24 Interval History: Seen and evlauated this morning Feels little better denies fever or chills reporting dyspnea with short distances no other events Review of Systems Review of Systems: Yes all other systems are reviewed and are negative Physical Exam Vital Signs: Vital Signs: Last Vital Signs Temp 97.6 F 06/17/24 07:57 Pulse 88 06/17/24 08:49 Resp 18 06/17/24 08:49 BP 130/62 06/17/24 07:57 Pulse Ox 93 06/17/24 07:57 O2 Del Method Nasal Cannula 06/17/24 07:57 O2 Flow Rate 3 06/17/24 07:57 Oxygen Flow Rate 3 06/15/24 19:40 BMI result Body Mass Index 32.9 Const: Other: Constitutional : Awake, interactive, not in distress Neck : Normal inspection, Supple Cardiovascular : RRR, no JVP, +1 lower extremity edema Respiratory : significantly reduced bilateral air entry, expiratory wheezes , On O2 supplement Gastrointestinal: soft, lax, Normal bowel sounds, Non tender, distended Skin : Warm, Dry Neurological : Alert & oriented x3, No focal deficit Objective Data Active Medications Acetaminophen (Acetaminophen 325 Mg Tablet) 650 mg PO Q6H PRN PRN Reason: Pain, Mild 1-3,fever,headache Atorvastatin Calcium (Atorvastatin Calcium 80 Mg Tablet) 80 mg PO BEDTIME [facility] Last Admin: 06/16/24 20:34 Dose: 80 mg Documented By: KAIT Bisacodyl (Bisacodyl 5 Mg Tablet.Dr) 10 mg PO DAILY PRN PRN Reason: constipation Bumetanide (Bumetanide 1 Mg/4 Ml Vial) 0.25 mg IVPUSH DAILY [facility]; Protocol Last Admin: 06/17/24 10:53 Dose: 0.25 mg Documented By: KATELYN Calcium Carbonate (Calcium Carbonate 750 Mg Tab.Chew) 750 mg PO Q4H PRN PRN Reason: Heartburn Ceftriaxone Sodium (Ceftriaxone Sodium 1 Gm Vial) 1 gm IVPUSH Q24H [facility] Last Admin: 06/17/24 11:19 Dose: 1 gm Documented By: KATELYN Levalbuterol HCl 2.5 mg/ (Ipratropium [place] 0.5 mg) 0 mg INHALE RQ4H [facility] Last Admin: 06/17/24 08:47 Dose: 5.5 dose Documented By: FUENTES Levalbuterol HCl 2.5 mg/ (Ipratropium [place] 0.5 mg) 0 mg INHALE Q4H PRN PRN Reason: Shortness of Breath/Wheezing Dextrose (Dextrose 50 % 25 Gm/50 Ml Syringe) 25 gm IVPUSH Q15M PRN; Protocol PRN Reason: per Hypoglycemia Standing Ord. Enoxaparin Sodium (Enoxaparin Sodium 40 Mg/0.4 Ml Syringe) 40 mg SUBCUT Q24H [facility] Last Admin: 06/16/24 13:07 Dose: Not Given Documented By: BINU Non-Admin Reason: Patient Refused Escitalopram Oxalate (Escitalopram Oxalate 20 Mg Tablet) 20 mg PO DAILY [facility] Last Admin: 06/17/24 07:59 Dose: 20 mg Documented By: GERRY Glucose (Glucose Gel 15 Gm Gel..Gram.) 15 gm PO Q15M PRN; Protocol PRN Reason: per Hypoglycemia Standing Ord. Azithromycin 500 mg/ Sodium (Chloride) 250 mls @ 125 mls/hr IV Q24H [facility] Last Infusion: 06/16/24 23:06 Dose: Infused Documented By: KAIT Insulin Glargine (Insulin Glargine,Hum.Rec.Anlog 100 Unit/Ml 10 Ml Vial) 10 unit SUBCUT DAILY [facility] Last Admin: 06/17/24 08:30 Dose: 10 unit Documented By: KATELYN Insulin Human Lispro (Insulin Lispro 100 Unit/Ml 3 Ml Vial) 0 unit SUBCUT QIDACHS [facility]; Protocol Last Admin: 06/17/24 11:22 Dose: 6 unit Documented By: KATELYN Lactulose (Lactulose 20 Gm/30 Ml Solution) 10 gm PO DAILY PRN PRN Reason: Constipation Lorazepam (Lorazepam 0.5 Mg Tablet) 0.5 mg PO BID PRN PRN Reason: anxiety Last Admin: 06/16/24 16:32 Dose: 0.5 mg Documented By: ERICA Magnesium Hydroxide (Milk Of Magnesia 30 Ml Oral.Susp) 30 ml PO DAILY PRN PRN Reason: Constipation Melatonin (Melatonin 3 Mg Tablet) 6 mg PO BEDTIME PRN PRN Reason: Insomnia Methylprednisolone Sodium Succinate (Methylprednisolone Sod Succ 40 Mg/Ml Vial) 40 mg IVPUSH Q12H [facility] Last Admin: 06/17/24 00:44 Dose: 40 mg Documented By: KAIT Metoprolol Tartrate (Metoprolol Tartrate 25 Mg Tablet) 25 mg PO BID [facility]; Protocol Last Admin: 06/17/24 07:59 Dose: 25 mg Documented By: GERRY Non-Formulary Medication (Budesonide-Formoterol [Symbicort]) 2 puff INHALE DAILY [facility] Omeprazole (Omeprazole 20 Mg Capsule.Dr) 20 mg PO DAILY@0630 [facility] Last Admin: 06/17/24 05:40 Dose: 20 mg Documented By: KAIT Polyethylene Glycol (Polyethylene Glycol 3350 17 Gm Powd.Pack) 17 gm PO DAILY [facility] Last Admin: 06/17/24 10:53 Dose: 17 gm Documented By: KATELYN Senna (Sennosides 8.6 Mg Tablet) 8.6 mg PO BEDTIME PRN PRN Reason: Constipation Simethicone (Simethicone 80 Mg Tab.Chew) 80 mg PO QIDWMHS [facility] Last Admin: 06/17/24 11:23 Dose: 80 mg Documented By: KATELYN Sodium Chloride (0.9 % Sodium Chloride Flush 3 Ml Syringe) 3 ml IVFLUSH QSHIFT [facility] Last Admin: 06/17/24 07:59 Dose: 3 ml Documented By: GERRY Labs 06/17/24 05:17 06/17/24 05:17 Labs: Laboratory Results - last 24 hr 06/16/24 06/16/24 06/17/24 18:38 20:45 05:17 MCV 93.4 MCH 29.0 MCHC 31.1 RDW 13.8 Plt Count 169 MPV 9.9 Immature Gran % (Auto) 0.3 Neut % (Auto) 90.3 H Lymph % (Auto) 6.3 L [place] % (Auto) 2.9 Eos % (Auto) 0.0 Baso % (Auto) 0.2 Lymph # (Auto) 0.4 L [place] # (Auto) 0.2 Eos # (Auto) 0.0 Baso # (Auto) 0.0 Abs Immat Gran (auto) 0.02 Absolute Neuts (auto) 5.9 Absolute Nucleated RBC 0.000 Nucleated RBC % (auto) 0.0 Smear Tech's Comments VERIFIED Anion Gap 11 L Estim Creat Clear Calc 83.1 Estimated GFR > 60 POC Glucose 320 H 342 H Random Glucose 217 H Calcium 9.3 D 06/17/24 06/17/24 07:49 11:12 MCV MCH MCHC RDW Plt Count MPV Immature Gran % (Auto) Neut % (Auto) Lymph % (Auto) [place] % (Auto) Eos % (Auto) Baso % (Auto) Lymph # (Auto) [place] # (Auto) Eos # (Auto) Baso # (Auto) Abs Immat Gran (auto) Absolute Neuts (auto) Absolute Nucleated RBC Nucleated RBC % (auto) Smear Tech's Comments Anion Gap Estim Creat Clear Calc Estimated GFR POC Glucose 249 H 272 H Random Glucose Calcium Microbiology Microbiology Results: Microbiology 06/15/24 20:12 Blood Culture - Preliminary Blood - Venous No growth after 24 hours. 06/15/24 20:04 Blood Culture - Preliminary Blood - Venous No growth after 24 hours. Assessment and Plan (1) Acute and chronic respiratory failure: Status: Acute (2) Pneumonia: Status: Acute (3) Cirrhosis of liver with ascites: Status: Acute (4) COPD, severe: Status: Acute (5) Diabetes mellitus with hyperglycemia, without long-term current use of insulin: Status: Acute Plan 74-year-old male with history of COPD with chronic hypoxic hypercapnic respiratory failure on 3 L supplemental O2 at baseline, history of lung cancer s/p chemo and radiataion 10 years ago, cirrhosis complicated by ascites, [id number] type 2 diabetes coronary artery disease s/p PCI, mood disorder, hyperlipidemia, LIBRADO on CPAP, and urinary incontinence admitted for further management of acute COPD exacerbation. # Acute on chronic hypoxic and hypercapnic respiratory secondary to Acute COPD exacerbation and Pneumonia complicated with acute respiratory acidosis Acidosis resolved CXR with atelectasis and pneumonitis pending full respiratory panel Q12 IV methylprednisolone DuoNebs q.4h while awake and PRN IV azithromycin and Ceftriaxone continue 3 L oxygen via nasal which is home dose. CPAP p.r.n. 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 and pancytopenia some abdominal distention which could be contributing to shortness of breath however no ascites noted CT abdomen/pelvis abdominal ultrasound if symptoms do not improved therapeutic paracentesis LFTs within normal limits # insulin-dependent type 2 diabetes POC glucose, diabetic diet sliding scale, hold oral antihyperglycemics # CAD/hyperlipidemia continue statin, beta-arnold # hypertension controlled,continue metoprolol # mood disorder continue home medications # GERD -PPI # chronic constipation continue home medications #Incidentalomas CT abdomen/pelvis shows redemonstration of the abnormal dilatation of the large intestine including transverse colon with an abrupt change in the caliber of the proximal sigmoid concerning from year old lesion or colitis of the proximal sigmoid. There is also abnormal dilatation of the appendix possibly secondary to large intestine obstruction but no acute inflammatory stranding. There is also wall thickening and pericholecystic fluid of the gallbladder concerning for cholecystitis by CT. patient not currently exhibiting GI symptoms patient underwent sigmoidoscopy 06/03 while admitted showing diverticulosis and internal hemorrhoids polyps consistent with fragments of tubular adenoma. Negative for high-grade dysplasia or carcinoma monitor and consider General surgery or Gastroenterology consult if indicated DVT prophylaxis-Lovenox Full code Patient requires inpatient stay overnight due to COPD exacerbation with acute chronic hypoxic hypercapnic respiratory failure and acute respiratory acidosis requiring IV steroids close monitoring of CO2 levels and vital signs Quality Stroke Does the patient have a stroke diagnosis?: No VTE Prior VTE?: No VTE Risk Level:: Medical - moderate - high VTE Device Contraindication: Treatment Not Indicated VTE Drug Contraindication: N/A - Med Ordered
[2024-06-17] MEDS: Enoxaparin Sodium 40 MG/0.4 ML SYRINGE SUBCUT (12:41)
[2024-06-17 14:55] LABS: Adenovirus PCR Not Detected (Not Detect.); Bordetella parapertussis PCR Not Detected (Not Detect.); Bordetella pertussis PCR Not Detected (Not Detect.); Chlamydia pneumoniae PCR Not Detected (Not Detect.); Coronavirus 229E PCR Not Detected (Not Detect.); Coronavirus HKU1 PCR Not Detected (Not Detect.); Coronavirus NL63 PCR Not Detected (Not Detect.); Coronavirus OC43 PCR Not Detected (Not Detect.); Human metapneumovirus PCR Not Detected (Not Detect.); Influenza A PCR Not Detected (Not Detect.); Influenza B PCR Not Detected (Not Detect.); Mycoplasma pneumoniae PCR Not Detected (Not Detect.); Parainfluenza 1 PCR Not Detected (Not Detect.); Parainfluenza 2 PCR Not Detected (Not Detect.); Parainfluenza 3 PCR Not Detected (Not Detect.); Parainfluenza 4 PCR Not Detected (Not Detect.); RSV PCR Not Detected (Not Detect.); Rhino/Enterovirus PCR Not Detected (Not Detect.)
[2024-06-17] MEDS: LORazepam 0.5 MG TABLET PO ×2 (14:59→20:33)
[2024-06-17 15:25] LABS: SARS-CoV-2 PCR Not Detected (Not Detect.)
[2024-06-17 16:33] LABS: Glucose, Whole Blood 224 mg/dL (60-115)
[2024-06-17 20:18] LABS: Glucose, Whole Blood 342 mg/dL (60-115)
[2024-06-17] MEDS: Atorvastatin Calcium 80 MG TABLET PO (20:24)
[2024-06-17] MEDS: Azithromycin 500 MG in 0.9 % Sodium Chloride 250 ML 125 MG IV (20:25)
[2024-06-17] MEDS: Sennosides 8.6 MG TABLET PO (20:25)
[2024-06-17] MEDS: Melatonin 3 MG TABLET 6 MG PO (20:34)
[2024-06-18] VITALS (7 sets, daily range): BP systolic 109–140; BP diastolic 58–66; PULSE 71–83; RESP 16–20; TEMP 36–36.8; O2SAT 92–96
[2024-06-18] MEDS: levalbuterol HCL 2.5 MG, Ipratropium Bromide 0.5 MG INHALE ×3 (00:19→11:26)
[2024-06-18] MEDS: 0.9 % Sodium Chloride Flush 3 ML SYRINGE IVFLUSH ×3 (00:23→17:20)
[2024-06-18] MEDS: methylPREDNISolone Sod Succ 40 MG/ML VIAL IVPUSH ×2 (00:23→13:13)
[2024-06-18] MEDS: Omeprazole 20 MG CAPSULE.DR PO (06:22)
[2024-06-18 07:00] LABS: MANUAL DIFF FLAG NO
[2024-06-18 07:10] LABS: Hematocrit 31.4 % (42.0-52.0); Hemoglobin 9.5 g/dl (14.0-18.0); Imm Gran Abs Auto 0.02 X10*3/uL (0.00-0.03); Imm Gran Pct Auto 0.5 % (0.0-0.4); Lymphocytes Absolute Auto 0.4 X10*3/uL (1.2-4.9); Mean Corpuscular HGB Conc 30.3 g/dl (31.0-36.0); Mean Corpuscular Hemoglobin 28.3 pg (27.0-33.0); Mean Corpuscular Volume 93.5 fL (80.0-98.0); Mean Platelet Volume 10.2 fL (9.4-12.4); Monocytes Absolute Auto 0.1 X10*3/uL (0.1-1.2); Monocytes Percent Auto 3.1 % (2-11); Neutrophils Absolute Auto 3.7 x10*3/uL (2.0-8.3); Neutrophils Percent Auto 87.4 % (45-73); Platelet Count 190 X10*3/uL (160-400); Red Blood Count 3.36 X10*6/uL (4.60-5.80); Red Cell Distribution Width 14.3 % (11.0-16.0); White Blood Count 4.2 X10*3/uL (4.8-10.8)
[2024-06-18 07:37] LABS: Anion Gap 13 (12-20); Blood Urea Nitrogen 15 mg/dL (9-16); Calcium 9.3 mg/dL (8.4-10.2); Carbon Dioxide 42 mmol/L (22-29); Chloride 90 mmol/L (96-108); Creatinine Clr Calc Pharmacy 80.2; Estimated Glomerular Filt Rate > 60; Glucose Random 282 mg/dL (60-115); Potassium 4.7 mmol/L (3.3-5.1); Sodium 140 mmol/L (135-145)
[2024-06-18 07:46] LABS: Glucose, Whole Blood 297 mg/dL (60-115)
[2024-06-18] MEDS: Simethicone 80 MG TAB.CHEW PO ×4 (08:53→20:34)
[2024-06-18] MEDS: Metoprolol Tartrate 25 MG TABLET PO ×2 (08:53→20:34)
[2024-06-18] MEDS: Escitalopram Oxalate 20 MG TABLET PO (08:53)
[2024-06-18] MEDS: Bumetanide 1 MG/4 ML VIAL 0.25 MG IVPUSH (08:54)
[2024-06-18] MEDS: Insulin Glargine,Hum.rec.anlog 100 UNIT/ML 10 ML VIAL 10 UNIT SUBCUT (08:55)
[2024-06-18] MEDS: Insulin Lispro 100 UNIT/ML 3 ML VIAL SUBCUT ×4 (08:55→20:34)
[2024-06-18] MEDS: Lactulose 20 GM/30 ML SOLUTION 10 GM PO (08:57)
[2024-06-18] MEDS: polyethylene glycoL 3350 17 GM POWD.PACK PO (08:58)
[2024-06-18] MEDS: cefTRIAXone sodium 1 GM VIAL IVPUSH (10:22)
[2024-06-18 11:26] LABS: Glucose, Whole Blood 325 mg/dL (60-115)
[2024-06-18] MEDS: Milk of Magnesia 30 ML ORAL.SUSP PO (11:52)
[2024-06-18] MEDS: LORazepam 0.5 MG TABLET PO ×2 (11:57→20:33)
--- NOTE | 2024-06-18 12:42 | HO.PM.IMPN ---
Subjective Subjective Date of Service: 06/18/24 Review of Systems Complaining of shortness of breath, on 3 L of home oxygen and CPAP Last bowel movement 2-3 days ago No acute events overnight Constitutional All other system reviewed and are negative. Physical Exam Vital Signs: Vital Signs: Last Vital Signs Temp 96.8 F 06/18/24 07:14 Pulse 76 06/18/24 11:26 Resp 18 06/18/24 11:26 BP 136/66 06/18/24 07:14 Pulse Ox 95 06/18/24 07:14 O2 Del Method Nasal Cannula 06/18/24 07:14 O2 Flow Rate 3 06/18/24 07:14 Oxygen Flow Rate 3 06/15/24 19:40 BMI result Body Mass Index 32.9 Const: Other: Gen: in no acute distress HEENT: sclera anicteric, moist mucus membranes Neck: supple Lungs: Expiratory wheeze/diminished breath sounds Heart: regular rate and rhythm, no murmurs Abd: soft, bowel sounds audible, distended, non tender, no guarding, no rigidity Ext: no pitting edema Skin: warm/well-perfused Neuro: alert and oriented x3, no focal findings Psych: appropriate affect Objective Data Active Medications Acetaminophen (Acetaminophen 325 Mg Tablet) 650 mg PO Q6H PRN PRN Reason: Pain, Mild 1-3,fever,headache Atorvastatin Calcium (Atorvastatin Calcium 80 Mg Tablet) 80 mg PO BEDTIME [facility] Last Admin: 06/17/24 20:24 Dose: 80 mg Documented By: PERLA Bisacodyl (Bisacodyl 5 Mg Tablet.) 10 mg PO DAILY PRN PRN Reason: constipation Bumetanide (Bumetanide 1 Mg/4 Ml Vial) 0.25 mg IVPUSH DAILY [facility]; Protocol Last Admin: 06/18/24 08:54 Dose: 0.25 mg Documented By: RADHA Calcium Carbonate (Calcium Carbonate 750 Mg Tab.Chew) 750 mg PO Q4H PRN PRN Reason: Heartburn Ceftriaxone Sodium (Ceftriaxone Sodium 1 Gm Vial) 1 gm IVPUSH Q24H [facility] Last Admin: 06/18/24 10:22 Dose: 1 gm Documented By: RADHA Levalbuterol HCl 2.5 mg/ (Ipratropium [place] 0.5 mg) 0 mg INHALE RQ4H [facility] Last Admin: 06/18/24 11:26 Dose: 1 dose Documented By: ELENA Levalbuterol HCl 2.5 mg/ (Ipratropium [place] 0.5 mg) 0 mg INHALE Q4H PRN PRN Reason: Shortness of Breath/Wheezing Dextrose (Dextrose 50 % 25 Gm/50 Ml Syringe) 25 gm IVPUSH Q15M PRN; Protocol PRN Reason: per Hypoglycemia Standing Ord. Enoxaparin Sodium (Enoxaparin Sodium 40 Mg/0.4 Ml Syringe) 40 mg SUBCUT Q24H [facility] Last Admin: 06/17/24 12:41 Dose: 40 mg Documented By: KATELYN Escitalopram Oxalate (Escitalopram Oxalate 20 Mg Tablet) 20 mg PO DAILY [facility] Last Admin: 06/18/24 08:53 Dose: 20 mg Documented By: RADHA Glucose (Glucose Gel 15 Gm Gel..Gram.) 15 gm PO Q15M PRN; Protocol PRN Reason: per Hypoglycemia Standing Ord. Azithromycin 500 mg/ Sodium (Chloride) 250 mls @ 125 mls/hr IV Q24H [facility] Last Infusion: 06/17/24 22:42 Dose: Infused Documented By: PERLA Insulin Glargine (Insulin Glargine,Hum.Rec.Anlog 100 Unit/Ml 10 Ml Vial) 10 unit SUBCUT DAILY [facility] Last Admin: 06/18/24 08:55 Dose: 10 unit Documented By: RADHA Insulin Human Lispro (Insulin Lispro 100 Unit/Ml 3 Ml Vial) 0 unit SUBCUT QIDACHS [facility]; Protocol Last Admin: 06/18/24 11:51 Dose: 8 unit Documented By: RADHA Lactulose (Lactulose 20 Gm/30 Ml Solution) 10 gm PO DAILY [facility] Last Admin: 06/18/24 08:57 Dose: 10 gm Documented By: RADHA Lorazepam (Lorazepam 0.5 Mg Tablet) 0.5 mg PO BID PRN PRN Reason: anxiety Last Admin: 06/18/24 11:57 Dose: 0.5 mg Documented By: RADHA Magnesium Hydroxide (Milk Of Magnesia 30 Ml Oral.Susp) 30 ml PO DAILY PRN PRN Reason: Constipation Last Admin: 06/18/24 11:52 Dose: 30 ml Documented By: RADHA Melatonin (Melatonin 3 Mg Tablet) 6 mg PO BEDTIME PRN PRN Reason: Insomnia Last Admin: 06/17/24 20:34 Dose: 6 mg Documented By: PERLA Methylprednisolone Sodium Succinate (Methylprednisolone Sod Succ 40 Mg/Ml Vial) 40 mg IVPUSH Q12H [facility] Last Admin: 06/18/24 00:23 Dose: 40 mg Documented By: JERO Metoprolol Tartrate (Metoprolol Tartrate 25 Mg Tablet) 25 mg PO BID [facility]; Protocol Last Admin: 06/18/24 08:53 Dose: 25 mg Documented By: RADHA Non-Formulary Medication (Budesonide-Formoterol [Symbicort]) 2 puff INHALE DAILY [facility] Omeprazole (Omeprazole 20 Mg Capsule.Dr) 20 mg PO DAILY@0630 [facility] Last Admin: 06/18/24 06:22 Dose: 20 mg Documented By: JERO Polyethylene Glycol (Polyethylene Glycol 3350 17 Gm Powd.Pack) 17 gm PO DAILY [facility] Last Admin: 06/18/24 08:58 Dose: 17 gm Documented By: RADHA Senna (Sennosides 8.6 Mg Tablet) 8.6 mg PO BEDTIME [facility] Last Admin: 06/17/24 20:25 Dose: 8.6 mg Documented By: PERLA Simethicone (Simethicone 80 Mg Tab.Chew) 80 mg PO QIDWMHS [facility] Last Admin: 06/18/24 11:52 Dose: 80 mg Documented By: RADHA Sodium Chloride (0.9 % Sodium Chloride Flush 3 Ml Syringe) 3 ml IVFLUSH QSHIFT [facility] Last Admin: 06/18/24 08:54 Dose: 3 ml Documented By: RADHA Labs 06/18/24 06:00 06/18/24 06:00 Labs: Laboratory Results - last 24 hr 06/17/24 06/17/24 06/17/24 11:04 16:29 20:14 MCV MCH MCHC RDW Plt Count MPV Immature Gran % (Auto) Neut % (Auto) Lymph % (Auto) [place] % (Auto) Eos % (Auto) Baso % (Auto) Lymph # (Auto) [place] # (Auto) Eos # (Auto) Baso # (Auto) Abs Immat Gran (auto) Absolute Neuts (auto) Absolute Nucleated RBC Nucleated RBC % (auto) Anion Gap Estim Creat Clear Calc Estimated GFR POC Glucose 224 H 342 H Random Glucose Calcium Respiratory Panel [place] See Note Adenovirus (Rapid PCR) Not Detected B.pert (TEM-PCR) Not Detected B.parapertussis DNA PCR Not Detected C. pneumoniae DNA (PCR) Not Detected Coronavirus OC43 (PCR) Not Detected Coronavirus HKU1 (PCR) Not Detected Coronavirus 229E (PCR) Not Detected Coronavirus NL63 (PCR) Not Detected Human Metapneumovir PCR Not Detected Influenza A (RT-PCR) Not Detected Influenza B (RT-PCR) Not Detected M. pneumoniae (PCR) Not Detected Parainfluenza 1 (PCR) Not Detected Parainfluenza 2 (PCR) Not Detected Parainfluenza 3 (PCR) Not Detected Parainfluenza 4 (PCR) Not Detected RSV (PCR) Not Detected Entero/Rhino (PCR) Not Detected SARS-CoV-2 RNA (RT-PCR) Not Detected 06/18/24 06/18/24 06/18/24 06:00 07:41 11:07 MCV 93.5 MCH 28.3 MCHC 30.3 L RDW 14.3 Plt Count 190 MPV 10.2 Immature Gran % (Auto) 0.5 H Neut % (Auto) 87.4 H Lymph % (Auto) 9.0 L [place] % (Auto) 3.1 Eos % (Auto) 0.0 Baso % (Auto) 0.0 Lymph # (Auto) 0.4 L [place] # (Auto) 0.1 Eos # (Auto) 0.0 Baso # (Auto) 0.0 Abs Immat Gran (auto) 0.02 Absolute Neuts (auto) 3.7 Absolute Nucleated RBC 0.000 Nucleated RBC % (auto) 0.0 Anion Gap 13 Estim Creat Clear Calc 80.2 Estimated GFR > 60 POC Glucose 297 H 325 H Random Glucose 282 H Calcium 9.3 Respiratory Panel [place] Adenovirus (Rapid PCR) B.pert (TEM-PCR) B.parapertussis DNA PCR C. pneumoniae DNA (PCR) Coronavirus OC43 (PCR) Coronavirus HKU1 (PCR) Coronavirus 229E (PCR) Coronavirus NL63 (PCR) Human Metapneumovir PCR Influenza A (RT-PCR) Influenza B (RT-PCR) M. pneumoniae (PCR) Parainfluenza 1 (PCR) Parainfluenza 2 (PCR) Parainfluenza 3 (PCR) Parainfluenza 4 (PCR) RSV (PCR) Entero/Rhino (PCR) SARS-CoV-2 RNA (RT-PCR) Microbiology Microbiology Results: Microbiology 06/15/24 20:12 Blood Culture - Preliminary Blood - Venous No growth after 48 hours. 06/15/24 20:04 Blood Culture - Preliminary Blood - Venous No growth after 48 hours. Assessment and Plan (1) Chronic constipation: Status: Acute (2) Acute and chronic respiratory failure: Status: Acute (3) Pneumonia: Status: Acute Plan 74-year-old male with history of COPD with chronic hypoxic hypercapnic respiratory failure on 3 L supplemental O2 at baseline, history of lung cancer s/p chemo and radiataion 10 years ago, cirrhosis complicated by ascites, [id number] type 2 diabetes coronary artery disease s/p PCI, mood disorder, hyperlipidemia, LIBRADO on CPAP, and urinary incontinence admitted for further management of acute COPD exacerbation. # Acute on chronic hypoxic and hypercapnic respiratory secondary to Acute COPD exacerbation and Pneumonia complicated with acute respiratory acidosis Acidosis resolved CXR with atelectasis and pneumonitis respiratory panel negative Q12 IV methylprednisolone 40 mg DuoNebs q.4h while awake and PRN IV azithromycin and Ceftriaxone started on continue 3 L oxygen via nasal which is home dose. CPAP p.r.n. 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 and pancytopenia some abdominal distention which could be contributing to shortness of breath however no ascites noted CT abdomen/pelvis LFTs within normal limits DC diuretics fluid overload resolved # insulin-dependent type 2 diabetes POC glucose, diabetic diet Elevated blood sugars will adjust sliding scale, hold oral anti hyperglycemics # CAD/hyperlipidemia continue statin, beta-arnold # hypertension controlled,continue metoprolol # mood disorder continue home medications # GERD -PPI # chronic constipation continue home medications #Incidental findings on CT abdomen CT abdomen/pelvis shows redemonstration of the abnormal dilatation of the large intestine including transverse colon with an abrupt change in the caliber of the proximal sigmoid concerning from year old lesion or colitis of the proximal sigmoid. There is also abnormal dilatation of the appendix possibly secondary to large intestine obstruction but no acute inflammatory stranding. There is also wall thickening and pericholecystic fluid of the gallbladder concerning for cholecystitis by CT. patient not currently exhibiting GI symptoms patient underwent sigmoidoscopy 06/03 while admitted showing diverticulosis and internal hemorrhoids polyps consistent with fragments of tubular adenoma. Negative for high-grade dysplasia or carcinoma Will obtain General surgery or Gastroenterology consult due to abnormal CT findings and persistent constipation DVT prophylaxis-Lovenox Full code Patient requires inpatient stay overnight due to COPD exacerbation with acute chronic hypoxic hypercapnic respiratory failure and acute respiratory acidosis requiring IV steroids close monitoring of CO2 levels and vital signs Quality Stroke Does the patient have a stroke diagnosis?: No VTE Prior VTE?: No VTE Risk Level:: Medical - moderate - high VTE Device Contraindication: Treatment Not Indicated VTE Drug Contraindication: N/A - Med Ordered
--- NOTE | 2024-06-18 14:48 | P.CNGI_ITS ---
History of Present Illness Data of Consult Service Date: 06/18/24 Requesting physician: Sadi Anguiano Primary Care Provider: Anne-Marie Muro MD HPI 74 YM with COPD with chronic hypoxic hypercapnic respiratory failure on 3 L supplemental O2 at baseline, history of lung cancer s/p chemo and radiataion 10 yrs ago, cirrhosis complicated by ascites, [id number] type 2 diabetes coronary artery disease s/p PCI, mood disorder, hyperlipidemia, LIBRADO on CPAP, and urinary incontinence seen at [facility] [place] [facility] on 06/15/24 for evaluation of SOB. Pt reported progressively worsening shortness of breath and hoarseness x 2 weeks. He has increased use of rescue inhalers. Reports occasional productive cough with white sputum production. He is also reporting mild abdominal discomfort and distension that has been unchanged since last admission. Also wheezing and orthopnea (chronic). Pt denied fevers, chills, n/v/d, palpitations, or chest pain. No known sick contacts. Per patient and EMS O2 saturation was in the 80s. On arrival he was placed on CPAP. VBG shows a mild respiratory acidosis with pH 7.24, pCO2 105, bicarb 45. He was also given IV methylprednisolone DuoNebs with improvement in pH to 7.36, pCO2 81, and bicarb 46. He denies any confusion. Labs showed pancytopenia with WBC 3.9, H/H 9.9/32 point, platelets 141. Renal function baseline, electrolyte levels within normal limits except for chloride 94 CO2 39. Liver function tests within normal limits. BNP 36. Negative for influenza, COVID-19, RSV. GI consulted for evaluation of abd pain and abnormal CT scan. CT abdomen/pelvis shows redemonstration of the abnormal dilatation of the large intestine including transverse colon with an abrupt change in the caliber of the proximal sigmoid concerning from year old lesion or colitis of the proximal sigmoid. There is also abnormal dilatation of the appendix possibly secondary to large intestine obstruction but no acute inflammatory stranding. There is also wall thickening and pericholecystic fluid of the gallbladder concerning for cholecystitis by CT. CXR shows he persistent opacity of the left lung apex with likely small apical left pleural effusion as well as mild bibasilar atelectasis and pneumonitis. Chest CT 03/31 shows a stable left apical opacity with associated left upper lobe collapse. In the ED, given IV magnesium Zithromax, g ceftriaxone, DuoNeb, 1 IV NS at 60 units lispro. He was given 125 mg IV methylprednisolone EN route by EMS along with a DuoNeb and admitted for further management acute COPD exacerbation. Review of Systems 2 Review of Systems: Yes all other systems are reviewed and are negative [facility] Past Medical History Medical History Constipation History of adenomatous polyp of colon Acute on chronic respiratory failure with hypoxia and hypercapnia Positive colorectal cancer screening using Cologuard test Respiratory failure with hypoxia and hypercapnia Bilateral carotid artery disease CAD (coronary artery disease) Anxiety and depression Anemia Chronic respiratory failure with hypoxia and hypercapnia Radiation fibrosis of lung HTN (hypertension) Dyslipidemia History of pneumonia Bacteremia due to Enterococcus COPD, severe Diabetes mellitus with hyperglycemia, without long-term current use of insulin Urinary incontinence Asthma Lung cancer Skin cancer Family History Family History Father Medical history non-contributory Mother Medical history non-contributory Unknown family medical history Lung collapse Brother No problems noted. Brother No problems noted. Son Substance use disorder Son No problems noted. Daughter No problems noted. Sister No problems noted. Sister No problems noted. Sister No problems noted. Sister No problems noted. Other HTN (hypertension) Surgical History Surgical History Hx of heart artery stent History of esophagogastroduodenoscopy (EGD) Hx of colonoscopy Social History Social History Household Members: Spouse Household Members Other:: grandson Housing: House Are you a primary career development counselor to a significant other at home: No Do you presently have visiting nurse or other home services: No Alcohol intake: never Comment: pt encouraged to ring buck for some assistance when ambulating Patient Tobacco Use Status: Former Tobacco user Tobacco use type: Cigarette e-Cigarette/Vaping Use: Never Used Advance Directives Date on File: 06/08/22 service: No Current occupational status: retired Cognitive needs: No Hearing needs: No Vision needs: No Meds Allergies Allergy/AdvReac Type Severity Reaction Status Date / Time fluticasone furoate Allergy Intermediate Rash Verified 06/15/24 19:51 [From Trelegy Ellipta] vilanterol Allergy Intermediate Rash Verified 06/15/24 19:51 [From Trelegy Ellipta] umeclidinium Allergy Unknown Hives Verified 06/15/24 19:51 [Incruse Ellipta] furosemide [From Lasix] AdvReac Intermediate Hallucinati Verified 06/15/24 19:51 ons Active Medications: Current Medications Acetaminophen (Acetaminophen 325 Mg Tablet) 650 mg PO Q6H PRN PRN Reason: Pain, Mild 1-3,fever,headache Atorvastatin Calcium (Atorvastatin Calcium 80 Mg Tablet) 80 mg PO BEDTIME [facility] Last Admin: 06/17/24 20:24 Dose: 80 mg Bisacodyl (Bisacodyl 5 Mg Tablet.Dr) 10 mg PO DAILY PRN PRN Reason: constipation Calcium Carbonate (Calcium Carbonate 750 Mg Tab.Chew) 750 mg PO Q4H PRN PRN Reason: Heartburn Ceftriaxone Sodium (Ceftriaxone Sodium 1 Gm Vial) 1 gm IVPUSH Q24H [facility] Last Admin: 06/18/24 10:22 Dose: 1 gm Levalbuterol HCl 2.5 mg/ (Ipratropium [place] 0.5 mg) 0 mg INHALE RQ4H [facility] Last Admin: 06/18/24 11:26 Dose: 1 dose Levalbuterol HCl 2.5 mg/ (Ipratropium [place] 0.5 mg) 0 mg INHALE Q4H PRN PRN Reason: Shortness of Breath/Wheezing Dextrose (Dextrose 50 % 25 Gm/50 Ml Syringe) 25 gm IVPUSH Q15M PRN; Protocol PRN Reason: per Hypoglycemia Standing Ord. Enoxaparin Sodium (Enoxaparin Sodium 40 Mg/0.4 Ml Syringe) 40 mg SUBCUT Q24H [facility] Last Admin: 06/18/24 13:16 Dose: Not Given Escitalopram Oxalate (Escitalopram Oxalate 20 Mg Tablet) 20 mg PO DAILY [facility] Last Admin: 06/18/24 08:53 Dose: 20 mg Glucose (Glucose Gel 15 Gm Gel..Gram.) 15 gm PO Q15M PRN; Protocol PRN Reason: per Hypoglycemia Standing Ord. Azithromycin 500 mg/ Sodium (Chloride) 250 mls @ 125 mls/hr IV Q24H [facility] Last Infusion: 06/17/24 22:42 Dose: Infused Insulin Glargine (Insulin Glargine,Hum.Rec.Anlog 100 Unit/Ml 10 Ml Vial) 10 unit SUBCUT DAILY [facility] Last Admin: 06/18/24 08:55 Dose: 10 unit Insulin Human Lispro (Insulin Lispro 100 Unit/Ml 3 Ml Vial) 0 unit SUBCUT QIDACHS [facility]; Protocol Last Admin: 06/18/24 11:51 Dose: 8 unit Lactulose (Lactulose 20 Gm/30 Ml Solution) 20 gm PO DAILY [facility] Lorazepam (Lorazepam 0.5 Mg Tablet) 0.5 mg PO BID PRN PRN Reason: anxiety Last Admin: 06/18/24 11:57 Dose: 0.5 mg Magnesium Hydroxide (Milk Of Magnesia 30 Ml Oral.Susp) 30 ml PO DAILY PRN PRN Reason: Constipation Last Admin: 06/18/24 11:52 Dose: 30 ml Melatonin (Melatonin 3 Mg Tablet) 6 mg PO BEDTIME PRN PRN Reason: Insomnia Last Admin: 06/17/24 20:34 Dose: 6 mg Methylprednisolone Sodium Succinate (Methylprednisolone Sod Succ 40 Mg/Ml Vial) 40 mg IVPUSH Q12H [facility] Last Admin: 06/18/24 13:13 Dose: 40 mg Metoprolol Tartrate (Metoprolol Tartrate 25 Mg Tablet) 25 mg PO BID [facility]; Protocol Last Admin: 06/18/24 08:53 Dose: 25 mg Non-Formulary Medication (Budesonide-Formoterol [Symbicort]) 2 puff INHALE DAILY [facility] Omeprazole (Omeprazole 20 Mg Capsule.Dr) 20 mg PO DAILY@0630 [facility] Last Admin: 06/18/24 06:22 Dose: 20 mg Polyethylene Glycol (Polyethylene Glycol 3350 17 Gm Powd.Pack) 17 gm PO DAILY [facility] Last Admin: 06/18/24 08:58 Dose: 17 gm Senna (Sennosides 8.6 Mg Tablet) 8.6 mg PO BEDTIME [facility] Last Admin: 06/17/24 20:25 Dose: 8.6 mg Simethicone (Simethicone 80 Mg Tab.Chew) 80 mg PO QIDWMHS [facility] Last Admin: 06/18/24 11:52 Dose: 80 mg Sodium Chloride (0.9 % Sodium Chloride Flush 3 Ml Syringe) 3 ml IVFLUSH QSHIFT [facility] Last Admin: 06/18/24 08:54 Dose: 3 ml Home Medications ?Medication ?Instructions ?Recorded ?Confirmed ?Last Taken ?Type budesonide-formoterol HFA 160 2 puff inhalation DAILY 03/14/21 06/16/24 06/15/24 History mcg-4.5 mcg/actuation aerosol inhaler (Symbicort) calcium 600 mg (as 1 tab PO DAILY 08/04/21 06/16/24 06/15/24 History carbonate)-vitamin D3 10 mcg (400 unit) tablet Oxygen Home Use 06/14/22 06/14/24 Unknown History azithromycin 500 mg tablet 500 mg PO MOWEFR 06/16/24 06/16/24 06/15/24 History bisacodyl 5 mg tablet,delayed 10 mg PO DAILY PRN constipation 06/16/24 06/16/24 Unknown History release (Laxative (bisacodyl)) linaclotide 145 mcg capsule 145 mcg PO DAILY 06/16/24 06/16/24 06/15/24 History polyethylene glycol 3350 17 gram 17 g PO DAILY PRN Constipation 06/16/24 06/16/24 06/15/24 History oral powder packet sennosides 8.6 mg tablet (senna) 8.6 mg PO BEDTIME PRN Constipation 06/16/24 06/16/24 Unknown History Physical Exam 2 Vital Signs: Vital Signs: Last Vital Signs Temp 96.8 F 06/18/24 07:14 Pulse 76 06/18/24 11:26 Resp 18 06/18/24 11:26 BP 136/66 06/18/24 07:14 Pulse Ox 95 06/18/24 07:14 O2 Del Method Nasal Cannula 06/18/24 07:14 O2 Flow Rate 3 06/18/24 07:14 Oxygen Flow Rate 3 06/15/24 19:40 BMI result Body Mass Index 32.9 Const: Other: Gen: in no acute distress HEENT: sclera anicteric, moist mucus membranes Neck: supple Lungs: Expiratory wheeze/diminished breath sounds Heart: regular rate and rhythm, no murmurs Abd: soft, bowel sounds audible, distended, non tender, no guarding, no rigidity Ext: no pitting edema Skin: warm/well-perfused Neuro: alert and oriented x3, no focal findings Psych: appropriate affect Results Labs 06/18/24 06:00 06/18/24 06:00 Labs: Short CBC 06/18/24 Range/Units 06:00 WBC 4.2 L (4.8-10.8) X10*3/uL Hgb 9.5 L (14.0-18.0) g/dl Hct 31.4 L (42.0-52.0) % Plt Count 190 (160-400) X10*3/uL BMP 06/18/24 06:00 Sodium 140 Potassium 4.7 Chloride 90 L Carbon Dioxide 42 H* BUN 15 Creatinine 0.86 Calcium 9.3 Microbiology Microbiology Results: Microbiology 06/15/24 20:12 Blood - Venous Blood Culture - Preliminary No growth after 48 hours. 06/15/24 20:04 Blood - Venous Blood Culture - Preliminary No growth after 48 hours. Assessment and Plan (1) Chronic constipation: Status: Acute (2) Cirrhosis of liver with ascites: Status: Acute (3) GERD (gastroesophageal reflux disease): Status: Acute Plan 74 YM with COPD with chronic hypoxic hypercapnic respiratory failure on 3 L supplemental O2 at baseline, history of lung cancer s/p chemo and radiataion 10 yrs ago, cirrhosis complicated by ascites, [id number] type 2 diabetes coronary artery disease s/p PCI, mood disorder, hyperlipidemia, LIBRADO on CPAP, and urinary incontinence seen at [facility] [place] [facility] on 06/15/24 for evaluation of SOB. He is also reporting mild abdominal discomfort and distension that has been unchanged since last admission. Also wheezing and orthopnea (chronic). GI consulted for evaluation of abd pain and abnormal CT scan. RECOMMENDATIONS: 1. Magnesium citrate 150 ml tonight since pt reports a good response in the past - order placed. 2. Gastrograffin enema by radiology in the am to rule out sigmoid colon obstruction (Of note no obstruction visualized on recent Flex sig performed by Dr Gomez) 3. Continue pt on a regular bowel program with Senna and Miralax twice daily. Pt is also taking Linzess 145 mcg daily. 06/19/24 ADDENDUM: GASTROGRAFIN ENEMA SHOWED: On KUB there is large amount of stool seen within the colon. Following retrograde administration of 3000 mL of dilute Gastrografin there is contrast visualized in the right colon/cecum. There is large amount of stool seen throughout the entire colon. No obstructive narrowing or obstructive mass seen at this time. However limited. Patient was unable to pass any stools hence the catheter was reversed and Gastrografin and stool was collected in the bag as much as possible. Procedures Date of Service Date of Service: 06/19/24
[2024-06-18 16:11] LABS: Glucose, Whole Blood 236 mg/dL (60-115)
--- NOTE | 2024-06-18 19:07 | PC.NURSE ---
Pt refusing bed alarms, educated on purpose of high fall risk interventions, continues to refuse alarms.
[2024-06-18] MEDS: Magnesium Citrate 300 ML SOLUTION 150 ML PO (19:37)
[2024-06-18 20:24] LABS: Glucose, Whole Blood 355 mg/dL (60-115)
[2024-06-18] MEDS: Atorvastatin Calcium 80 MG TABLET PO (20:33)
[2024-06-18] MEDS: Sennosides 8.6 MG TABLET PO (20:34)
[2024-06-18] MEDS: Azithromycin 500 MG in 0.9 % Sodium Chloride 250 ML 125 MG IV (20:35)
[2024-06-19] VITALS (9 sets, daily range): BP systolic 100–130; BP diastolic 51–61; PULSE 59–92; RESP 16–20; TEMP 36.4–36.9; O2SAT 91–97
[2024-06-19] MEDS: methylPREDNISolone Sod Succ 40 MG/ML VIAL IVPUSH ×2 (00:26→12:34)
[2024-06-19] MEDS: 0.9 % Sodium Chloride Flush 3 ML SYRINGE IVFLUSH ×3 (00:28→16:49)
--- NOTE | 2024-06-19 00:30 | PC.NURSE ---
Patient is refusing bed alarm, will only allow one bed rail and is using elongated oxygen tubing. Refusing to use portable O2 for bathroom. He states diuretic are making him have to urinate frequently and he states he cannot wait for staff and that the bed alarm scares him and the two bed rails prevent him from easily exiting the bed. Encouraged use of call buck and bed alarm. continued to refuse bed alarm and allows for only one bed rail up despite education.
[2024-06-19] MEDS: levalbuterol HCL 2.5 MG, Ipratropium Bromide 0.5 MG INHALE ×5 (05:22→19:02)
[2024-06-19 07:46] LABS: Glucose, Whole Blood 256 mg/dL (60-115)
[2024-06-19] MEDS: Simethicone 80 MG TAB.CHEW PO ×4 (10:17→21:24)
[2024-06-19] MEDS: polyethylene glycoL 3350 17 GM POWD.PACK PO (10:18)
[2024-06-19] MEDS: Escitalopram Oxalate 20 MG TABLET PO (10:19)
[2024-06-19] MEDS: cefTRIAXone sodium 1 GM VIAL IVPUSH (10:19)
[2024-06-19] MEDS: Insulin Glargine,Hum.rec.anlog 100 UNIT/ML 10 ML VIAL 10 UNIT SUBCUT (10:19)
[2024-06-19] MEDS: Metoprolol Tartrate 25 MG TABLET PO ×2 (10:19→21:25)
[2024-06-19] MEDS: Diatrizoate Meglumine, Sodium 120 ML SOLUTION 960 ML PR (11:22)
[2024-06-19 11:30] LABS: Glucose, Whole Blood 228 mg/dL (60-115)
[2024-06-19] MEDS: Insulin Lispro 100 UNIT/ML 3 ML VIAL SUBCUT ×3 (11:45→21:24)
--- NOTE | 2024-06-19 13:28 | P.PNIM_ITS ---
Subjective Subjective Date of Service: 06/19/24 Interval History: Had a bowel movement after Mag citrate, feeling better this morning denies abdominal pain, shortness of breath is improving no acute overnight events, no fevers, no chills Scheduled for Gastrografin enema. Review of Systems All other system reviewed and are negative Physical Exam 2 Vital Signs: Vital Signs: Last Vital Signs Temp 98.0 F 06/19/24 11:37 Pulse 69 06/19/24 12:20 Resp 17 06/19/24 12:20 BP 100/55 L 06/19/24 11:37 Pulse Ox 93 06/19/24 11:37 O2 Del Method Nasal Cannula 06/19/24 11:37 O2 Flow Rate 3 06/19/24 11:37 Oxygen Flow Rate 3 06/15/24 19:40 BMI result Body Mass Index 32.9 Const: Other: Gen: in no acute distress HEENT: sclera anicteric, moist mucus membranes Neck: supple Lungs: Chronic bilateral Expiratory wheeze/diminished breath sounds Heart: regular rate and rhythm, no murmurs Abd: soft, bowel sounds audible, distended, non tender, no guarding, no rigidity Ext: no pitting edema Skin: warm/well-perfused Neuro: alert and oriented x3, no focal findings Psych: appropriate affect Objective Data Active Medications Acetaminophen (Acetaminophen 325 Mg Tablet) 650 mg PO Q6H PRN PRN Reason: Pain, Mild 1-3,fever,headache Atorvastatin Calcium (Atorvastatin Calcium 80 Mg Tablet) 80 mg PO BEDTIME [facility] Last Admin: 06/18/24 20:33 Dose: 80 mg Documented By: YAA Bisacodyl (Bisacodyl 5 Mg Tablet.Dr) 10 mg PO DAILY PRN PRN Reason: constipation Calcium Carbonate (Calcium Carbonate 750 Mg Tab.Chew) 750 mg PO Q4H PRN PRN Reason: Heartburn Ceftriaxone Sodium (Ceftriaxone Sodium 1 Gm Vial) 1 gm IVPUSH Q24H [facility] Last Admin: 06/19/24 10:19 Dose: 1 gm Documented By: LIZETTE Levalbuterol HCl 2.5 mg/ (Ipratropium [place] 0.5 mg) 0 mg INHALE RQ4H [facility] Last Admin: 06/19/24 12:20 Dose: 1 dose Documented By: KASHMIR Levalbuterol HCl 2.5 mg/ (Ipratropium [place] 0.5 mg) 0 mg INHALE Q4H PRN PRN Reason: Shortness of Breath/Wheezing Dextrose (Dextrose 50 % 25 Gm/50 Ml Syringe) 25 gm IVPUSH Q15M PRN; Protocol PRN Reason: per Hypoglycemia Standing Ord. Enoxaparin Sodium (Enoxaparin Sodium 40 Mg/0.4 Ml Syringe) 40 mg SUBCUT Q24H [facility] Last Admin: 06/19/24 12:38 Dose: Not Given Documented By: LIZETTE Non-Admin Reason: Patient Refused Escitalopram Oxalate (Escitalopram Oxalate 20 Mg Tablet) 20 mg PO DAILY [facility] Last Admin: 06/19/24 10:19 Dose: 20 mg Documented By: LIZETTE Glucose (Glucose Gel 15 Gm Gel..Gram.) 15 gm PO Q15M PRN; Protocol PRN Reason: per Hypoglycemia Standing Ord. Azithromycin 500 mg/ Sodium (Chloride) 250 mls @ 125 mls/hr IV Q24H [facility] Last Infusion: 06/18/24 22:35 Dose: Infused Documented By: YAA Insulin Glargine (Insulin Glargine,Hum.Rec.Anlog 100 Unit/Ml 10 Ml Vial) 10 unit SUBCUT DAILY [facility] Last Admin: 06/19/24 10:19 Dose: 10 unit Documented By: LIZETTE Insulin Human Lispro (Insulin Lispro 100 Unit/Ml 3 Ml Vial) 0 unit SUBCUT QIDACHS [facility]; Protocol Last Admin: 06/19/24 11:45 Dose: 6 unit Documented By: LIZETTE Lactulose (Lactulose 20 Gm/30 Ml Solution) 20 gm PO DAILY [facility] Last Admin: 06/19/24 10:24 Dose: Not Given Documented By: LIZETTE Non-Admin Reason: Patient Refused Lorazepam (Lorazepam 0.5 Mg Tablet) 0.5 mg PO BID PRN PRN Reason: anxiety Last Admin: 06/18/24 11:57 Dose: 0.5 mg Documented By: RADHA Magnesium Hydroxide (Milk Of Magnesia 30 Ml Oral.Susp) 30 ml PO DAILY PRN PRN Reason: Constipation Last Admin: 06/18/24 11:52 Dose: 30 ml Documented By: RADHA Melatonin (Melatonin 3 Mg Tablet) 6 mg PO BEDTIME PRN PRN Reason: Insomnia Last Admin: 06/17/24 20:34 Dose: 6 mg Documented By: PERLA Methylprednisolone Sodium Succinate (Methylprednisolone Sod Succ 40 Mg/Ml Vial) 40 mg IVPUSH Q12H [facility] Last Admin: 06/19/24 12:34 Dose: 40 mg Documented By: LIZETTE Metoprolol Tartrate (Metoprolol Tartrate 25 Mg Tablet) 25 mg PO BID [facility]; Protocol Last Admin: 06/19/24 10:19 Dose: 25 mg Documented By: LIZETTE Non-Formulary Medication (Budesonide-Formoterol [Symbicort]) 2 puff INHALE DAILY [facility] Omeprazole (Omeprazole 20 Mg Capsule.Dr) 20 mg PO DAILY@0630 [facility] Last Admin: 06/19/24 06:37 Dose: Not Given Documented By: WILY Non-Admin Reason: NPO Polyethylene Glycol (Polyethylene Glycol 3350 17 Gm Powd.Pack) 17 gm PO DAILY [facility] Last Admin: 06/19/24 10:18 Dose: 17 gm Documented By: LIZETTE Senna (Sennosides 8.6 Mg Tablet) 8.6 mg PO BEDTIME [facility] Last Admin: 06/18/24 20:34 Dose: 8.6 mg Documented By: YAA Simethicone (Simethicone 80 Mg Tab.Chew) 80 mg PO QIDWMHS [facility] Last Admin: 06/19/24 11:45 Dose: 80 mg Documented By: LIZETTE Sodium Chloride (0.9 % Sodium Chloride Flush 3 Ml Syringe) 3 ml IVFLUSH QSHIFT [facility] Last Admin: 06/19/24 10:16 Dose: 3 ml Documented By: LIZETTE Labs 06/18/24 06:00 06/18/24 06:00 Labs: Laboratory Results - last 24 hr 06/18/24 06/18/24 06/19/24 16:02 20:20 07:41 POC Glucose 236 H 355 H* 256 H 06/19/24 11:25 POC Glucose 228 H Assessment and Plan (1) Chronic constipation: Status: Acute (2) Acute and chronic respiratory failure: Status: Acute (3) Pneumonia: Status: Acute Plan 74-year-old male with history of COPD with chronic hypoxic hypercapnic respiratory failure on 3 L supplemental O2 at baseline, history of lung cancer s/p chemo and radiataion 10 years ago, cirrhosis complicated by ascites, [id number] type 2 diabetes coronary artery disease s/p PCI, mood disorder, hyperlipidemia, LIBRADO on CPAP, and urinary incontinence admitted for further management of acute COPD exacerbation. # Acute on chronic hypoxic and hypercapnic respiratory secondary to Acute COPD exacerbation and Pneumonia complicated with acute respiratory acidosis Acidosis resolved CXR with atelectasis and pneumonitis respiratory panel negative dc IV methylprednisolone 40 mg and transitioned to prednisone by mouth DuoNebs q.4h while awake and PRN IV azithromycin and Ceftriaxone started on 06/16, transitioned to by mouth continue 3 L oxygen via nasal which is home dose. CPAP p.r.n. and at night continue maintenance inhalers/encourage IS # LIBRADO CPAP at bedtime recommend compliance and outpatient follow-up with primary hollow ware maker Dr. Marr # alcoholic cirrhosis complicated by ascites and pancytopenia however no ascites noted CT abdomen/pelvis LFTs within normal limits DC diuretics fluid overload resolved Abdominal distention due to constipation resolved # insulin-dependent type 2 diabetes POC glucose, diabetic diet Elevated blood sugars adjusted sliding scale, hold oral anti hyperglycemics # CAD/hyperlipidemia continue statin, beta-arnold # hypertension controlled,continue metoprolol # mood disorder continue home medications # GERD -PPI # chronic constipation/Incidental findings on CT abdomen CT abdomen/pelvis shows redemonstration of the abnormal dilatation of the large intestine including transverse colon with an abrupt change in the caliber of the proximal sigmoid concerning from year old lesion or colitis of the proximal sigmoid. There is also abnormal dilatation of the appendix possibly secondary to large intestine obstruction but no acute inflammatory stranding. There is also wall thickening and pericholecystic fluid of the gallbladder concerning for cholecystitis by CT. patient underwent sigmoidoscopy 06/03 while admitted showing diverticulosis and internal hemorrhoids polyps consistent with fragments of tubular adenoma. Negative for high-grade dysplasia or carcinoma Will obtain General surgery or Gastroenterology consult due to abnormal CT findings and persistent constipation. Seen by Dr. Corcoran treated with Mag citrate with good response Gastrograffin enema ordered to rule out sigmoid obstruction if negative will adjust bowel regimen to avoid constipation DVT prophylaxis-Lovenox Full code Patient requires inpatient stay overnight due to COPD exacerbation with acute chronic hypoxic hypercapnic respiratory failure and acute respiratory acidosis requiring IV steroids close monitoring of CO2 levels and vital signs Quality Stroke Does the patient have a stroke diagnosis?: No VTE Prior VTE?: No VTE Risk Level:: Medical - moderate - high VTE Device Contraindication: Treatment Not Indicated VTE Drug Contraindication: N/A - Med Ordered
[2024-06-19] MEDS: Azithromycin 500 MG TABLET PO (13:57)
[2024-06-19] MEDS: cefuroxime axetiL 500 MG TABLET PO (13:57)
--- NOTE | 2024-06-19 15:24 | MHC.CM.PN ---
Patient is not medically cleared to discharge. He continues to require IV steroids,Co2 monitoring as well as VS. DP Home with family support and transport.
[2024-06-19] MEDS: LORazepam 0.5 MG TABLET PO ×2 (15:41→23:41)
[2024-06-19 16:20] LABS: Glucose, Whole Blood 217 mg/dL (60-115)
[2024-06-19 20:29] LABS: Glucose, Whole Blood 297 mg/dL (60-115)
[2024-06-19] MEDS: Atorvastatin Calcium 80 MG TABLET PO (21:24)
[2024-06-19] MEDS: Sennosides 8.6 MG TABLET PO (21:24)
[2024-06-20] MEDS: cefuroxime axetiL 500 MG TABLET PO ×2 (01:01→12:58)
[2024-06-20] MEDS: methylPREDNISolone Sod Succ 40 MG/ML VIAL IVPUSH (01:01)
[2024-06-20] MEDS: Calcium Carbonate 750 MG TAB.CHEW PO (01:01)
[2024-06-20] MEDS: 0.9 % Sodium Chloride Flush 3 ML SYRINGE IVFLUSH ×2 (01:03→07:55)
[2024-06-20 05:31] VITALS: BP 118/60; PULSE 75; RESP 18; TEMP 36.1; O2SAT 94
[2024-06-20] MEDS: Omeprazole 20 MG CAPSULE.DR PO (06:04)
[2024-06-20 07:21] LABS: Glucose, Whole Blood 279 mg/dL (60-115)
[2024-06-20] MEDS: levalbuterol HCL 2.5 MG, Ipratropium Bromide 0.5 MG INHALE ×2 (07:36→11:19)
[2024-06-20 07:40] VITALS: PULSE 74; RESP 16; O2SAT 96
[2024-06-20] MEDS: Insulin Glargine,Hum.rec.anlog 100 UNIT/ML 10 ML VIAL 10 UNIT SUBCUT (07:52)
[2024-06-20 07:53] VITALS: BP 137/61; PULSE 74
[2024-06-20] MEDS: Metoprolol Tartrate 25 MG TABLET PO (07:53)
[2024-06-20] MEDS: Escitalopram Oxalate 20 MG TABLET PO (07:53)
[2024-06-20] MEDS: Simethicone 80 MG TAB.CHEW PO ×2 (07:53→11:49)
[2024-06-20] MEDS: Insulin Lispro 100 UNIT/ML 3 ML VIAL SUBCUT ×2 (07:53→11:48)
[2024-06-20 08:57] LABS: Anion Gap 14 (12-20); Blood Urea Nitrogen 24 mg/dL (9-16); Calcium 9.8 mg/dL (8.4-10.2); Carbon Dioxide 40 mmol/L (22-29); Chloride 88 mmol/L (96-108); Creatinine Clr Calc Pharmacy 79.3; Estimated Glomerular Filt Rate > 60; Glucose Random 237 mg/dL (60-115); Potassium 4.6 mmol/L (3.3-5.1); Sodium 137 mmol/L (135-145)
[2024-06-20] MEDS: predniSONE 10 MG TABLET 30 MG PO (08:58)
[2024-06-20 11:21] VITALS: PULSE 65; RESP 16; O2SAT 97
[2024-06-20 11:28] LABS: Glucose, Whole Blood 222 mg/dL (60-115)
[2024-06-20] MEDS: LORazepam 0.5 MG TABLET PO (12:58)
[2024-06-20] MEDS: Azithromycin 500 MG TABLET PO (12:58)
--- NOTE | 2024-06-20 13:36 | P.DS_ITS ---
DS: Providers Provider Date of Service: 06/20/24 Date of admission: 06/16/24 10:38 Date of discharge: 06/20/24 Primary care physician: Anne-Marie Muro MD Consults: 06/18/24 10:20 Consult to Gastroenterology Routine Consulting Provider: Atul Gomez Reason for consultation: abd pain/abnormal ct abd Has provider been notified: No DS: Diagnosis Discharge Diagnosis (1) Chronic constipation: Status: Acute (2) Cirrhosis of liver with ascites: Status: Acute (3) GERD (gastroesophageal reflux disease): Status: Acute DS: Summary Hospital Course Hospital Course: History of presenting illness: Date of Service: 06/16/24 Attending physician on admission: Arsenio Ventura Chief Complaint: sob 74-year-old male with history of COPD with chronic hypoxic hypercapnic respiratory failure on 3 L supplemental O2 at baseline, history of lung cancer s/p chemo and radiataion 10 yeras ago, cirrhosis complicated by ascites, [id number] type 2 diabetes coronary artery disease s/p PCI, mood disorder, hyperlipidemia, LIBRADO on CPAP, and urinary incontinence presented to the ED for evaluation of SOB. He reports he has been short of breath and hoarse x 2 weeks that have been progressively worsening. He has increased use of rescue inhalers. Reports occasional productive cough with white sputum production. He is also reporting mild abdominal discomfort and distension that has been unchanged since last admission. Also wheezing and orthopnea (chronic). No fevers, chills, n/v/d, palpitations, or chest pain. No known sick contacts. Per patient and EMS O2 saturation was in the 80s. On arrival he was placed on CPAP. VBG shows a mild respiratory acidosis with pH 7.24, pCO2 105, bicarb 45. He was also given IV methylprednisolone DuoNebs with improvement in pH to 7.36, pCO2 81, and bicarb 46. He denies any confusion. Hematology studies significant for a pancytopenia WBC 3.9, H/H 9.9/32 point, platelets 141. Renal function baseline, electrolyte levels within normal limits except for chloride 94 CO2 39. Liver function tests within normal limits. BNP 36. Negative for influenza, COVID-19, RSV. CT abdomen/pelvis shows redemonstration of the abnormal dilatation of the large intestine including transverse colon with an abrupt change in the caliber of the proximal sigmoid concerning from year old lesion or colitis of the proximal sigmoid. There is also abnormal dilatation of the appendix possibly secondary to large intestine obstruction but no acute inflammatory stranding. There is also wall thickening and pericholecystic fluid of the gallbladder concerning for cholecystitis by CT. CXR shows he persistent opacity of the left lung apex with likely small apical left pleural effusion as well as mild bibasilar atelectasis and pneumonitis. Chest CT 03/31 shows a stable left apical opacity with associated left upper lobe collapse. In the ED, given IV magnesium Zithromax, g ceftriaxone, DuoNeb, 1 IV NS at 60 units lispro. He was given 125 mg IV methylprednisolone EN route by EMS along with a DuoNeb. He will be admitted for further management acute COPD exacerbation. Hospital course: 74-year-old male with history of COPD with chronic hypoxic hypercapnic respiratory failure on 3 L supplemental O2 at baseline, history of lung cancer s/p chemo and radiataion 10 years ago, cirrhosis complicated by ascites, [id number] type 2 diabetes coronary artery disease s/p PCI, mood disorder, hyperlipidemia, LIBRADO on CPAP, and urinary incontinence admitted for further management of acute COPD exacerbation. # Acute on chronic hypoxic and hypercapnic respiratory secondary to Acute COPD exacerbation and Pneumonia complicated with acute respiratory acidosis,Acidosis resolved, CXR with atelectasis and pneumonitis respiratory panel negative, treated with IV steroids, IV azithromycin, IV ceftriaxone and updraft treatment with good response, oxygenation stable on baseline 3 L of home oxygen recommend compliance with CPAP at night Does not require further antibiotic upon discharge, recommend prednisone tapering dose for 1 week. # Chronic constipation ,CT abdomen/pelvis showed redemonstration of the abnormal dilatation of the large intestine including transverse colon with an abrupt change in the caliber of the proximal sigmoid concerning for mural lesion or colitis of the proximal sigmoid, also abnormal dilatation of the appendix possibly secondary to large intestine obstruction but no acute inflammatory stranding. 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 Corcoran to obtain prior authorization for Linzess recommend to take high-fiber diet drink fluids and ambulate. Likely recurrent shortness of breath due to abdominal distension. # alcoholic cirrhosis with pancytopenia, CT abdomen and pelvis showed no ascites, LFTs within normal range, recommend continued outpatient follow-up with Gastroenterology. # insulin-dependent type 2 diabetes, resume home medications and continue diabetic diet # CAD/hyperlipidemia resume statin, beta-arnold # hypertension resume metoprolol Time Attestation Discharge Coordination Time (in mins): 40 Quality: Safe Use of Opioids Does Pt have an Active Cancer Diagnosis on the Problem List?: No Quality: Stroke Does the patient have a stroke diagnosis?: No Physical Exam Vital Signs: Vital Signs: Last Vital Signs Temp 96.9 F 06/20/24 05:31 Pulse 65 06/20/24 11:21 Resp 16 06/20/24 11:21 BP 137/61 06/20/24 07:53 Pulse Ox 94 06/20/24 05:31 O2 Del Method Nasal Cannula 06/20/24 05:31 O2 Flow Rate 3 06/20/24 05:31 Oxygen Flow Rate 3 06/15/24 19:40 BMI result Body Mass Index 32.9 Const: Other: Gen: in no acute distress HEENT: sclera anicteric, moist mucus membranes Neck: supple Lungs: diminished breath sounds, no wheeze, no rhonchi Heart: regular rate and rhythm, no murmurs Abd: soft, bowel sounds audible, distended, non tender, no guarding, no rigidity Ext: no pitting edema Skin: warm/well-perfused Neuro: alert and oriented x3, no focal findings Psych: appropriate affect DS: Data Data Completed and Pending Completed studies during hospitalization [Text1]: Procedures Assistance with Respiratory Ventilation, Less than 24 Consecutive Hours, Continuous Positive Airway Pressure (05/26/24) Excision of Rectum, Via Natural or Artificial Opening Endoscopic, Diagnostic (05/26/24) Excision of Sigmoid Colon, Via Natural or Artificial Opening Endoscopic, Diagnostic (05/26/24) Excision of Transverse Colon, Via Natural or Artificial Opening Endoscopic, Diagnostic (05/26/24) Irrigation of Lower GI using Irrigating Substance, Via Natural or Artificial Opening (07/29/22) Labs on day of discharge: Laboratory Results - last 24 hr 06/19/24 06/19/24 06/20/24 16:16 20:25 06:05 Sodium 137 Potassium 4.6 Chloride 88 L Carbon Dioxide 40 H* Anion Gap 14 BUN 24 H Creatinine 0.87 Estim Creat Clear Calc 79.3 Estimated GFR > 60 POC Glucose 217 H 297 H Random Glucose 237 H Calcium 9.8 06/20/24 06/20/24 07:16 11:23 Sodium Potassium Chloride Carbon Dioxide Anion Gap BUN Creatinine Estim Creat Clear Calc Estimated GFR POC Glucose 279 H 222 H Random Glucose Calcium Preliminary micro results at discharge 06/15/24 20:12 Blood Culture - Preliminary Blood - Venous No growth after 48 hours. 06/15/24 20:04 Blood Culture - Preliminary Blood - Venous No growth after 48 hours. Discharge Plan Discharge Anticipated Discharge Date/Time: 06/20/24 13:29 Patient Disposition: Home, Self-Care Discharge Diagnosis: Chronic constipation Acute COPD exacerbation Acute on chronic hypercarbic and hypoxic respiratory failure Pneumonitis Referrals: Anne-Marie Muro MD [Primary Care Provider] - 1 Week Discharge Medications: New sennosides [Senna Lax] 8.6 mg Tablet 8.6 mg PO BID Qty: 120 0RF polyethylene glycol 3350 17 gram Powder In Packet 17 g PO BID Qty: 100 0RF prednisone 10 mg tablet 10 mg PO DIRECTED Qty: 10 0RF Rx Instructions: see taper instructions; 20 mg daily x3 days, 10 mg daily x4 days Continued (DME) blood-glucose meter [FreeStyle Lite Meter] Kit See Rx Instructions .Route Qty: 1 0RF Rx Instructions: As directed glipizide 5 mg tablet 5 mg PO BID Qty: 270 1RF albuterol sulfate [Ventolin HFA] 90 mcg/actuation HFA aerosol inhaler 2 puff inhalation Q4-6H PRN (Reason: shortness of breath or wheezing) Qty: 8.5 2RF atorvastatin 80 mg tablet 80 mg PO BEDTIME Qty: 90 1RF ipratropium-albuterol 0.5 mg-3 mg(2.5 mg base)/3 mL solution for nebulization 3 ml inhalation Q6H PRN (Reason: wheezing) Qty: 180 2RF (DME) lancets [FreeStyle Lancets] 28 gauge misc See Rx Instructions .Route Qty: 100 1RF Rx Instructions: Test blood sugar twice omeprazole 20 mg capsule,delayed release(DR/EC) 20 mg PO DAILY@0630 Qty: 30 1RF (DME) FreeStyle Lite Strips Strip See Rx Instructions .Route Qty: 50 7RF Rx Instructions: check fasting glucose once a day AC lorazepam [Ativan] 1 mg tablet 0.5 mg PO BID PRN (Reason: anxiety) Qty: 30 0RF Rx Instructions: Patient may request partial fill metoprolol tartrate 25 mg tablet 25 mg PO BID Qty: 180 1RF metformin 1,000 mg tablet 1,000 mg PO BID Qty: 180 1RF budesonide-formoterol [Symbicort] 160-4.5 mcg/actuation Hfa Aerosol Inhaler 2 puff INHALATION DAILY calcium carbonate-vitamin D3 600 mg-10 mcg (400 unit) tablet 1 tab PO DAILY bisacodyl [Laxative (bisacodyl)] 5 mg tablet,delayed release (DR/EC) 10 mg PO DAILY PRN (Reason: constipation) azithromycin 500 mg tablet 500 mg PO MOWEFR linaclotide 145 mcg capsule 145 mcg PO DAILY escitalopram oxalate 20 mg tablet 20 mg PO DAILY Qty: 90 3RF (DME) Oxygen Home Use Kit See Rx Instructions .Route Rx Instructions: As directed lactulose [Constulose] 10 gram/15 mL solution 10 g PO DAILY PRN (Reason: Constipation) Qty: 1500 0RF Discontinued sennosides [senna] 8.6 mg tablet 8.6 mg PO BEDTIME PRN (Reason: Constipation) polyethylene glycol 3350 17 gram powder in packet 17 g PO DAILY PRN (Reason: Constipation) Discharge Orders: Discharge Order (Routine); Ordered 06/20/24 Ordered By: Sadi Anguiano Diet: Diabetic diet Activity on Discharge: As tolerated Stand Alone Forms: Patient Portal Discharge page Print Language: Ukrainian Care Plan Goals: Acute hypoxic and hypercarbic respiratory failure resolved Continue CPAP at night and 3 L of home oxygen as before Continue home inhalers and azithromycin Wednesdays and Fridays Take prednisone 20 mg daily (2x10mg) for 3 days and then 10 mg daily for 4 days Chronic constipation due to atonic large bowel/no obstruction, Take MiraLax twice daily and Senokot twice daily, drink fluids take high-fiber diet and ambulate Outpatient follow-up with Dr. Corcoran for prior authorization for [facility] Concerns: Continue all home medications as before Plan of Treatment: Outpatient follow-up with primary care physician Outpatient follow-up with pulmonology Outpatient follow-up with Gastroenterology Dr. Corcoran call for appointment in 1-2 weeks Assessment: As above Patient Instructions: Community Acquired Pneumonia (DC)
--- NOTE | 2024-06-20 13:54 | MHC.CM.PN ---
Patient medically cleared for dc home self care. to transport. IMM delivered.
[2024-06-20 14:13] VITALS: BP 139/64; PULSE 80; RESP 17; TEMP 36.6; O2SAT 92
--- NOTE | 2024-06-25 15:29 | P.CDIM_ITS ---
PROVIDER RESPONSE TEXT: To clarify, the appropriate diagnosis supported by the clinical indicators: Chemical Pneumonitis QUERY TEXT: PHYSICIAN'S DOCUMENTATION REQUEST Date of Query: 06/17/2024 12:59 PM EDT Patient Name: Fitz Reed Admit Date: 06/16/2024 Dear Arsenio Ventura MD, A review of the medical record indicates additional documentation may be needed. Please review below and update the documentation accordingly. Clinical Indicators: Progress note 06/17/24 - Acute on chronic hypoxic and hypercapnic respiratory failure secondary to [employer]ETING [employer]ATIONS [employer] D exacerbation and Pneumonia complicated by respiratory acidosis. CXR with atelectasis and pneumonitis. IV Azithromycin and Ceftriaxone Continue 3L oxygen via [place] which is home dose. Based on the above, could you clarify in the Progress Notes further specificity regarding the most li sampson type of pneumonitis: Aspiration Pneumonitis Please indicate substance such as food or vomitus, oils, or other solids or liquids Interstitial Pneumonitis Chemical Pneumonitis Noninfectious Pneumonitis Other specified Other (explain) Clinically unable to determine (explain) Thank you, Joan Rolon, CCS, CDIS Use of terms such as suspected, likely, concern for, or probable (associated with a specific diagnosi s that is being evaluated, monitored, or treated as if it exists) are acceptable and can be coded in the inpatient se tting, when documented at the time of discharge. Please use your independent medical judgment in providing your response. THIS QUERY IS PART OF THE PERMANENT MEDICAL RECORD
== END 2024-06-20 14:18 | disposition home or self-care (01) | DRG 205 ==
LOC: HO.ED 06-16 09:10 → HO.EDOVER 06-16 10:42 → HO.S3 06-16 17:36
PROVIDERS: Emergency Medicine; Student in an Organized Health Care Education/Training Program; Admitting Provider Physician Assistant; Emergency Provider Student in an Organized Health Care Education/Training Program; PCP Internal Medicine; Visit Provider Hospitalist
DX: J68.0 Bronchitis and pneumonitis due to chemicals, gases, fumes and vapors (principal); J96.21 Acute and chronic respiratory failure with hypoxia; J96.22 Acute and chronic respiratory failure with hypercapnia; J44.1 Chronic obstructive pulmonary disease with (acute) exacerbation; D61.818 Other pancytopenia; J98.11 Atelectasis; K70.31 Alcoholic cirrhosis of liver with ascites; E78.5 Hyperlipidemia, unspecified; E11.9 Type 2 diabetes mellitus without complications; K21.9 Gastro-esophageal reflux disease without esophagitis; F39 Unspecified mood [affective] disorder; G47.33 Obstructive sleep apnea (adult) (pediatric); K59.09 Other constipation; I25.10 Atherosclerotic heart disease of native coronary artery without angina pectoris; Z85.118 Personal history of other malignant neoplasm of bronchus and lung; Z20.822 Contact with and (suspected) exposure to COVID-19; Z95.5 Presence of coronary angioplasty implant and graft; Z99.81 Dependence on supplemental oxygen; Z79.84 Long term (current) use of oral hypoglycemic drugs; Z79.899 Other long term (current) drug therapy
CPT/HCPCS: 0241U; 36415; 71045; 74018; 74176; 74270; 80048; 80076; 80307; 82803; 82947; 83605; 83880; 84484; 85025; 87040; 87633; 93005; 94640; 94660; 99285; J0456; J0696; J1650; J1939; J2919; J3475

== ENCOUNTER → 2024-06-15 19:49 | Outpatient (BNV) | payer MEDICARE, SELFPAY | PROVIDERS: Admitting Provider Physician Assistant; Emergency Provider Student in an Organized Health Care Education/Training Program; Visit Provider Internal Medicine | DX: R06.02 Shortness of breath (principal) | CPT/HCPCS: 93010 ==

== ENCOUNTER → 2024-06-15 19:50 | Outpatient (BNV) | payer MEDICARE, SELFPAY | PROVIDERS: Emergency Provider Emergency Medicine; Visit Provider Radiology Neuroradiology | DX: N20.0 Calculus of kidney (principal) | CPT/HCPCS: 71045; 74018; 74176 ==

== ENCOUNTER 2024-06-16 10:38 | Outpatient (BNV) | payer MEDICARE, SELFPAY | END 2024-06-19 11:16 | PROVIDERS: Admitting Provider Physician Assistant; Emergency Provider Student in an Organized Health Care Education/Training Program; PCP Internal Medicine; Visit Provider Radiology Diagnostic Radiology | DX: K59.39 Other megacolon (principal); K59.00 Constipation, unspecified; Z48.89 Encounter for other specified surgical aftercare | CPT/HCPCS: 74018; 74270 ==

== ENCOUNTER → 2024-06-16 10:38 | Outpatient (BNV) | payer MEDICARE, SELFPAY | PROVIDERS: Admitting Provider Physician Assistant; Emergency Provider Student in an Organized Health Care Education/Training Program; PCP Internal Medicine; Visit Provider Internal Medicine Gastroenterology | DX: K59.09 Other constipation (principal); K74.60 Unspecified cirrhosis of liver; R18.8 Other ascites; K21.9 Gastro-esophageal reflux disease without esophagitis | CPT/HCPCS: 99222 ==

== ENCOUNTER → 2024-06-16 10:38 | Outpatient (BNV) | payer MEDICARE, SELFPAY | PROVIDERS: Admitting Provider Physician Assistant; Emergency Provider Student in an Organized Health Care Education/Training Program; Visit Provider Physician Assistant | DX: J96.21 Acute and chronic respiratory failure with hypoxia (principal); J96.22 Acute and chronic respiratory failure with hypercapnia; K59.09 Other constipation; J18.9 Pneumonia, unspecified organism | CPT/HCPCS: 99223; 99232; 99233 ==

== ENCOUNTER 2024-09-03 11:43 | Outpatient (AMB) | payer MEDICARE, SELFPAY ==
--- OUTSIDE RECORDS SUMMARY | 2024-09-03 11:59 | XMS_ITS | Clinical Summary ---
Author Organization [facility] Address [address] [place] [address] Care Team Providers Care Clinical Trials Specialist Name Role Phone Anne-Marie Muro MD Primary [...] Coronary atherosclerosis of unspecified type of vessel, [place] or graft 05/30/2011 DX:Coronary atherosclerosis of unspecified type of vessel, turtle [place] or graft Family History Medical History Relation [...] on file Obstetrics History Plan of Treatment Upcoming Encounters Date Type Department Care Team (Late st Contact Info) Description 10/06/2024 1:15 PM EDT [facility] [address] [place] [address] Linnette Marr MD [address] [place] [address] Health Maintenance Due Date Last Done Comments Diabetes: Annual GFR (Glomer ular Filtration Rate) 1950 COVID-19 Vaccine (#1) 1955 Diabetes: Annual Foot Exam 01/31/1960 Diabetes: Annual Retina Eye Exam 01/31/1960 DTaP,Tdap,and Td Vaccines (1 - Tdap) 1969 Zoster Vaccines (1 of 2) 1969 Pneumococcal Vaccine: 50+ Ye ars (2 of 2 - PCV) 08/29/2006 08/29/2005 RSV Immunization Adult Patie nts (1 - Risk 60-74 years 1-dose series) 2010 Abdominal Aortic Aneurysm (A AA) Screen 03/22/2022 Cholesterol Screening (Lipid Panel) 03/22/2022 Colorectal Cancer Screening: Colonoscopy 03/22/2022 Depression Screening 03/22/2022 Falls Risk Assessment 03/22/2022 Hepatitis C Screening 03/22/2022 Medicare Annual Wellness Visit 03/22/2022 Social Influencers of Health Screening 03/22/2022 Diabetes: Annual Urine Albumin-Creatinine Ratio (uACR) 03/23/2022 Diabetes: Blood Sugar Contro l Test (HGBA1C) 03/23/2022 Hypertension/CHF/CAD Annual BMP Blood Test 03/23/2022 Influenza Vaccine (Season Ended) 2024 01/12/20 06 HIB Vaccines Aged Out No longer eligi [...] age to complete this topic Meningococcal B Vaccine Aged Out No l onger eligible based on patient's age to complete this topic RSV Immunization Patients Un will 20 months Aged Out No longer eligible b ased on patient's age to complete this topic Varicella Vaccines Aged Out No longer eligible based on patient's age to complete this topic Insurance MEDICARE Advance Directives Documents on File Type Date Recorded 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
--- NOTE | 2024-09-03 12:07 | A.OFFPC_ITS ---
Vital Signs 09/03/24 12:09 Height 5 ft 6 in Weight 204 lb BMI 32.9 BP 90/52 L Blood Pressure Location Rt brachial Position Sitting Respiration 20 Pulse 66 Pulse Source Pulse Oximeter Temp 98.0 F Temp Source Oral Pulse Oximetry (%) 92 Oxygen Delivery Method Nasal Cannula Intake Visit Reasons: 2 months f/up Intake Note: Pt is here today for his 2mo. f/u also c/o severe constipation Allergies fluticasone furoate [From Trelegy Ellipta] Allergy (Intermediate, Verified 09/03/24 12:14) Rash vilanterol [From Trelegy Ellipta] Allergy (Intermediate, Verified 09/03/24 12:14) Rash umeclidinium [Incruse Ellipta] Allergy (Unknown, Verified 09/03/24 12:14) Hives furosemide [From Lasix] Adverse Reaction (Intermediate, Verified 09/03/24 12:14) Hallucinations Medication List - Last Reconciled 09/03/24 by Anne-Marie Muro MD albuterol sulfate 90 mcg/actuation (Ventolin HFA) 2 puffs inhalation Q4-6H PRN atorvastatin 80 mg PO BEDTIME azithromycin 500 mg PO MOWEFR bisacodyl (Laxative (bisacodyl)) 10 mg PO DAILY PRN blood sugar diagnostic (FreeStyle Lite Strips) check fasting glucose once a day AC blood-glucose meter (FreeStyle Lite Meter kit) As directed budesonide-formoterol 160-4.5 mcg/actuation (Symbicort) 2 puffs inhalation DAILY calcium carbonate-vitamin D3 600 mg-10 mcg (400 unit) 1 tab PO DAILY escitalopram oxalate 20 mg PO DAILY glipizide 5 mg PO BID ipratropium-albuterol 0.5 mg-3 mg(2.5 mg base)/3 mL 3 mL inhalation Q6H PRN lactulose (Constulose) 10 grams (15 mL) PO DAILY PRN lancets (FreeStyle Lancets) Test blood sugar twice linaclotide 145 mcg PO DAILY lorazepam (Ativan) 0.5 mg (1/2 x 1 mg) PO BID PRN metformin 1,000 mg PO BID metoprolol tartrate 25 mg PO BID omeprazole 20 mg PO DAILY@0630 Oxygen Home Use As directed polyethylene glycol 3350 17 grams PO BID sennosides (Senna Lax) 8.6 mg PO BID Tobacco use date assessed: 06/09/24 Dental Screening Dental Screen Date: 06/09/24 HPI 2 months f/up HPI Details 74-year-old male here today for follow-u p after recent ER visit, where he was seen because of severe constipation. He has tried [id number] magnesium hydroxide, HPI Comments History of Present Illness Details 74-year-old male here today for follow-u p after recent ER visit where he was seen for severe constipation. He was prescribed MiraLax, Senokot, and bisacodyl which has not been very effective in regulating bowel movements. He states that it has been affecting his breathing as his stomach feels bloated that it is pushing up against his lungs. [facility] Medical History Constipation History of adenomatous polyp of colon Acute on chronic respiratory failure with hypoxia and hypercapnia Positive colorectal cancer screening using Cologuard test Respiratory failure with hypoxia and hypercapnia Bilateral carotid artery disease CAD (coronary artery disease) Anxiety and depression Anemia Chronic respiratory failure with hypoxia and hypercapnia Radiation fibrosis of lung HTN (hypertension) Dyslipidemia History of pneumonia Bacteremia due to Enterococcus COPD, severe Diabetes mellitus with hyperglycemia, without long-term current use of insulin Urinary incontinence Asthma Lung cancer Skin cancer Surgical History Hx of heart artery stent History of esophagogastroduodenoscopy (EGD) Hx of colonoscopy Family History Father Medical history non-contributory Mother Medical history non-contributory Unknown family medical history Lung collapse Brother No problems noted. Brother No problems noted. Son Substance use disorder Son No problems noted. Daughter No problems noted. Sister No problems noted. Sister No problems noted. Sister No problems noted. Sister No problems noted. Other HTN (hypertension) Social History Household Members: Spouse Household Members Other:: grandson Housing: House Are you a primary pet caregiver to a significant other at home: No Do you presently have visiting nurse or other home services: No Alcohol intake: never Comment: pt encouraged to ring cielo for some assistance when ambulating Patient Tobacco Use Status: Former Tobacco user Tobacco use type: Cigarette e-Cigarette/Vaping Use: Never Used Advance Directives Date on File: 06/08/22 service: No Current occupational status: retired Cognitive needs: No Hearing needs: No Vision needs: No Questionnaire Thrive Questionnaire Date Thrive assessed: 06/09/24 SAUMYA-7 AMB Questionnaire SAUMYA-7 Date SAUMYA - 7 assessed: 09/21/22 Source: Developed by Drs. Finn Stevens, Klaudia Bonilla, Reinaldo Suero and colleagues, with an educational lolita from [employer] ([employer]). Review of Systems Const All systems reviewed & are unremarkable except as noted in HPI and below Physical exam (Primary Care) Vital Signs: Last Vital Signs Temp 98.0 F 09/03/24 12:09 Pulse 66 09/03/24 12:09 Resp 20 09/03/24 12:09 BP 90/52 L 09/03/24 12:09 Pulse Ox 92 09/03/24 12:09 Oxygen Delivery Method Nasal Cannula 09/03/24 12:09 BMI result Body Mass Index 32.9 Tobacco/Smoking Status: Tobacco use Status Tobacco use date assessed 06/09/24 09/03/24 12:08 Patient Tobacco Use Status Former Tobacco user 09/03/24 12:08 Tobacco use type Cigarette 09/03/24 12:08 e-Cigarette/Vaping Use Never Used 09/03/24 12:08 Thrive Assessment: Date of Thrive Assessment Date Thrive assessed 06/09/24 09/03/24 12:08 Const Other: Alert oriented x3, accompanied by , no acute distress noted ambulatory with normal gait Nutritional Appearance: obese HENMT Mouth: Normal oral and palatal mucosa present and moist mucous membranes Neck Neck: Yes full ROM, Yes no lymphadenopathy and Yes supple Resp Other: Diminished breath sounds bilaterally, no wheezing heard Cardio Other: Has been S2 present regular rate and rhythm GI Other: Obese, soft, hyperactive bowel sounds, nontender to palpation unable to palpate any mass Coding Level of Care Code Est Pt Level 4 (21440) Diagnoses Chronic constipation K59.09 Assessment & Plan Assessment & Plan (1) Chronic constipation: Code(s): K59.09 - Other constipation Category: Medical Plan: Will try on Linzess 145 mcg per capsule to take once a day as needed if no bowel movement after 2 days. May continue taking docusate sodium to hel soften stool, stay well-hydrated. Avoid foods that are constipating such as bananas. Medications: New linaclotide 145 mcg PO DAILY 30 caps 0RF K59.09 - Other constipation
[2024-09-03 12:09] VITALS: BP 90/52; PULSE 66; RESP 20; TEMP 36.7; O2SAT 92; BMI 32.9
== END 2024-09-03 14:11 | disposition home or self-care (01) ==
LOC: HO.HMCC 11:44
PROVIDERS: PCP Internal Medicine; Visit Provider Internal Medicine
DX: K59.09 Other constipation (principal)

== ENCOUNTER → 2024-09-03 11:43 | Outpatient (BNVA) | payer MEDICARE, SELFPAY | PROVIDERS: PCP Internal Medicine; Visit Provider Internal Medicine | DX: K59.09 Other constipation (principal) | CPT/HCPCS: 99212 ==

== ENCOUNTER 2024-09-24 01:53 | Inpatient (IN) | payer MEDICARE, SELFPAY ==
[2024-09-24] VITALS (19 sets, daily range): BP systolic 98–162; BP diastolic 53–80; PULSE 67–105; RESP 12–23; TEMP 36.2–36.7; O2SAT 83–97; BMI 34.6; BMI 33.4
--- NOTE | 2024-09-24 | ECG_ITS ---
Test Reason : DYSPNEA Blood Pressure : */* mmHG Vent. Rate : 72 BPM Atrial Rate : 72 BPM P-R Int : 158 ms QRS Dur : 82 ms QT Int : 396 ms P-R-T Axes : 100 79 87 degrees QTcB Int : 433 ms Normal sinus rhythm Abnormal ECG Poor data quality When compared with ECG of 15-Jun-2024 19:56, No significant changes seen Referred By: Sarahi Ornelas Electronically Signed By: Carlitos Meyers
--- NOTE | ~2024-09-24 | XR_ITS ---
CLINICAL HISTORY: copd, sob 1 view chest x-ray Comparison: CR - XR CHEST 1V - 06/15/24 19:12 EDT CR/SR - XR CHEST 1V - 08/28/22 16:35 EDT Findings: Left apical pleural thickening is present with adjacent scarring and traction bronchiectasis, similar to prior exams. The right lung is clear. Normal size heart. No acute fracture. IMPRESSION: 1. Left apical pleural thickening with adjacent scarring and traction bronchiectasis, similar to prior exams. No acute cardiopulmonary abnormality is identified. This document has been electronically signed by: Vinh Pa on 09/24/2024 05:36:38
--- NOTE | ~2024-09-24 | CT_ITS ---
CLINICAL HISTORY: abd distension CT abdomen and pelvis without IV contrast. COMPARISON: CT abdomen and pelvis dated 06/15/24 at 22:46 EDT FINDINGS: Partially visualized lung bases are unremarkable. Normal gallbladder. Noncontrast appearance of the liver, spleen, pancreas and adrenal glands are unremarkable. No left-sided hydronephrosis. Left renal vascular calcifications. No left renal or ureteral calculus. No right-sided hydronephrosis. Right renal nonobstructing calculus in the pelvis measuring 9 mm. No right-sided hydronephrosis. No right ureteral calculus. Appendix is not seen. Large colonic stool burden extending to the proximal transverse colon. There is abrupt change in caliber in the mid sigmoid colon (series 4, image [id number]), similar to prior imaging. No mesenteric or retroperitoneal lymphadenopathy. Moderate aortoiliac atherosclerotic vascular calcifications. Normal appearance of the urinary bladder. Prostate calcifications present. No inguinal lymphadenopathy. 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 Mild grade 1 retrolisthesis of L1 on L2, degenerative and stable. Chronic wedge compression fractures of the T12 and L1 vertebral bodies, stable. Advanced multilevel spondylosis. No acute fracture. IMPRESSION: 1. Large colonic stool burden extending to the proximal sigmoid colon. There is abrupt transition in caliber of the large bowel in the mid sigmoid colon, similar to prior imaging and suspicious for a focal stricturing with underlying colonic mass not excluded. Recommend correlation with recent colonoscopy. 2. Nonobstructing 9 mm right renal calculus. This document has been electronically signed by: Tre Melgoza MD on 09/27/2024 15:04:31
--- NOTE | 2024-09-24 02:18 | ED.SOB ---
HPI - SOB/Dyspnea General Chief Complaint: Dyspnea Stated Complaint: SOB, hard distended abdomen & constipation Time Seen by Provider: 09/24/24 01:57 Source: patient and EMS Mode of arrival: EMS Limitations: no limitations History of Present Illness ED Provider: Dr. Sarahi Ornelas HPI Narrative: Patient comes to the emergency room complaining of shortness of breath. Patient states that over last month, he has noticed that his shortness of breath has been gradually been getting worse. Usually responds well to more oxygen. However, today there was no improvement. According to EMS, when patient was picked up from his residence, his oxygen was 87% on his usual 3 L of nasal cannula. Patient complaining of dry cough, patient was given Solu-Medrol 125 mg and a DuoNeb. Related Data Home Medications ?Medication ?Instructions ?Recorded ?Confirmed budesonide-formoterol HFA 160 2 puff inhalation DAILY 03/14/21 06/22/24 mcg-4.5 mcg/actuation aerosol inhaler (Symbicort) calcium 600 mg (as 1 tab PO DAILY 08/04/21 06/22/24 carbonate)-vitamin D3 10 mcg (400 unit) tablet Oxygen Home Use 06/14/22 06/22/24 azithromycin 500 mg tablet 500 mg PO MOWEFR 06/16/24 06/22/24 bisacodyl 5 mg tablet,delayed 10 mg PO DAILY PRN constipation 06/16/24 06/22/24 release (Laxative (bisacodyl)) Previous Rx's ?Medication ?Instructions ?Recorded blood-glucose meter (FreeStyle #1 ea 01/23/22 Lite Meter kit) escitalopram oxalate 20 mg tablet 20 mg PO DAILY #90 tabs 09/16/23 albuterol sulfate 90 mcg/actuation 2 puff inhalation Q4-6H PRN 10/31/23 aerosol inhaler (Ventolin HFA) shortness of breath or wheezing #8.5 grams lancets 28 gauge (FreeStyle #100 ea 01/31/24 Lancets) blood sugar diagnostic (FreeStyle #50 ea 03/07/24 Lite Strips) metoprolol tartrate 25 mg tablet 25 mg PO BID #180 tabs 06/09/24 metformin 1,000 mg tablet 1,000 mg PO BID #180 tabs 06/12/24 polyethylene glycol 3350 17 gram 17 g PO BID #100 ea 06/20/24 oral powder packet sennosides 8.6 mg tablet (Senna 8.6 mg PO BID #120 tabs 06/20/24 Lax) atorvastatin 80 mg tablet 80 mg PO BEDTIME #90 tabs 07/13/24 lactulose 10 gram/15 mL oral 10 g (15 mL) PO DAILY PRN 07/29/24 solution (Constulose) Constipation #1,500 mL omeprazole 20 mg capsule,delayed 20 mg PO DAILY@0630 #30 caps 08/14/24 release lorazepam 1 mg tablet (Ativan) 0.5 mg (1/2 x 1 mg) PO BID PRN 08/16/24 anxiety #30 tabs glipizide 5 mg tablet 5 mg PO BID #270 tabs 08/31/24 ipratropium 0.5 mg-albuterol 3 mg 3 ml inhalation Q6H PRN wheezing 09/01/24 (2.5 mg base)/3 mL nebulization #180 mL soln linaclotide 145 mcg capsule 145 mcg PO DAILY #30 caps 09/03/24 Allergies Allergy/AdvReac Type Severity Reaction Status Date / Time fluticasone furoate (From Allergy Intermediate Rash Verified 09/24/24 02:05 Trelegy Ellipta) vilanterol (From Trelegy Allergy Intermediate Rash Verified 09/24/24 02:05 Ellipta) umeclidinium (Incruse Allergy Unknown Hives Verified 09/24/24 02:05 Ellipta) furosemide (From Lasix) AdvReac Intermediate Hallucinati Verified 09/24/24 02:05 ons [facility] Past Medical History Medical History Constipation History of adenomatous polyp of colon Acute on chronic respiratory failure with hypoxia and hypercapnia Positive colorectal cancer screening using Cologuard test Respiratory failure with hypoxia and hypercapnia Bilateral carotid artery disease CAD (coronary artery disease) Anxiety and depression Anemia Chronic respiratory failure with hypoxia and hypercapnia Radiation fibrosis of lung HTN (hypertension) Dyslipidemia History of pneumonia Bacteremia due to Enterococcus COPD, severe Diabetes mellitus with hyperglycemia, without long-term current use of insulin Urinary incontinence Asthma Lung cancer Skin cancer Surgical History Hx of heart artery stent History of esophagogastroduodenoscopy (EGD) Hx of colonoscopy Family History Family History Father Medical history non-contributory Mother Medical history non-contributory Unknown family medical history Lung collapse Brother No problems noted. Brother No problems noted. Son Substance use disorder Son No problems noted. Daughter No problems noted. Sister No problems noted. Sister No problems noted. Sister No problems noted. Sister No problems noted. Other HTN (hypertension) Social History Social History Household Members: Spouse Household Members Other:: grandson Housing: House Are you a primary care management associate to a significant other at home: No Do you presently have visiting nurse or other home services: No Alcohol intake: never Comment: pt encouraged to ring buck for some assistance when ambulating Patient Tobacco Use Status: Former Tobacco user Tobacco use type: Cigarette Smoked in Last 30 Days: No e-Cigarette/Vaping Use: Never Used Use of substances other than those prescribed or required for medical reasons: No Advance Directives: Yes Advance Directives on File: Yes Advance Directives Date on File: 06/08/22 service: No Current occupational status: retired Cognitive needs: No Hearing needs: No Vision needs: No Physical Exam Vital Signs: Vital Signs: Last Vital Signs Temp 98.1 F 09/24/24 04:54 Pulse 102 H 09/24/24 04:54 Resp 23 H 09/24/24 04:54 BP 141/80 H 09/24/24 04:54 Pulse Ox 91 L 09/24/24 04:54 O2 Del Method Nasal Cannula 09/24/24 04:54 O2 Flow Rate 4 09/24/24 04:54 Oxygen Flow Rate 3 09/24/24 02:00 BMI result Body Mass Index 34.6 Course Course Course Narrative: Patient comes in complaining of shortness of breath, worsening for the last few days. Patient is empirically being treated with IV fluids based on ideal weight of 55 kg, patient is obese. Also, patient is being covered with IV antibiotics. patient's blood pressure within normal limits, no hypotension, of fever. Sepsis not suspected at this time Medications Administered Discontinued Medications Generic Name Dose Route Start Last Admin Trade Name Freq PRN Reason Stop Dose Admin Ceftriaxone Sodium 1 gm 09/24/24 02:11 09/24/24 02:49 Ceftriaxone Sodium 1 Gm Vial IVPUSH 09/24/24 02:12 1 gm ONCE ONE Administration Sodium Chloride 2,000 mls @ 999 mls/hr 09/24/24 02:11 09/24/24 02:50 Ns IVCONT 09/24/24 04:11 999 mls/hr .Q2H1M ONE Administration Azithromycin 500 mg/ Sodium 250 mls @ 125 mls/hr 09/24/24 02:11 09/24/24 02:57 Chloride IV 09/24/24 04:10 125 mls/hr ONCE ONE Administration Medical Decision Making Medical Decision Making [facility] Narrative: my interpretation of labs: No significant abnormality in patient's hematology and chemistry, normal blood gases, lactic acid within normal limits, normal LFTs, normal troponin, normal BNP. Chest x-ray has not been reviewed by Radiology. However, it is possible that patient may have right lower lobe pneumonia? Patient has already been covered empirically with antibiotics and fluids patient uses 3 L at home. When patient stands and walks, his oxygen dropped to 86%. Patient now on 4 L saturating 92%. I discussed the patient with Dr. Izaguirre from the Medicine team, patient being admitted Differential Diagnosis Differential Diagnoses: The differential diagnosis associated with the presentation includes ( COVID, influenza, RSV, pneumonia, chronic lung disease) Admission/Observation Consideration of admission/observation: Escalation of care including admission/observation considered Consult Healthcare Provider Management of the patient was discussed with: Hospitalist Lab Data [facility] Lab Attestation statement: I reviewed the patient's lab results. 09/24/24 02:45 09/24/24 02:44 Labs: Lab Results 09/24/24 09/24/24 09/24/24 Range/Units 02:44 02:45 02:47 WBC 5.5 (4.8-10.8) X10*3/uL RBC 3.68 L (4.60-5.80) X10*6/uL Hgb 10.5 L (14.0-18.0) g/dl Hct 33.7 L (42.0-52.0) % MCV 91.6 (80.0-98.0) fL MCH 28.5 (27.0-33.0) pg MCHC 31.2 (31.0-36.0) g/dl RDW 14.2 (11.0-16.0) % Plt Count 189 (160-400) X10*3/uL MPV 10.0 (9.4-12.4) fL Immature Gran % (Auto) 0.4 (0.0-0.4) % Neut % (Auto) 63.1 (45-73) % Lymph % (Auto) 17.5 L (20-40) % Harding % (Auto) 11.7 H (2-11) % Eos % (Auto) 6.6 H (0-4) % Baso % (Auto) 0.7 (0-2) % Lymph # (Auto) 1.0 L (1.2-4.9) X10*3/uL Harding # (Auto) 0.6 (0.1-1.2) X10*3/uL Eos # (Auto) 0.4 (0.0-0.4) X10*3/uL Baso # (Auto) 0.0 (0.0-0.2) X10*3/uL Abs Immat Gran (auto) 0.02 (0.00-0.03) X10*3/uL Absolute Neuts (auto) 3.5 (2.0-8.3) x10*3/uL Absolute Nucleated RBC 0.000 (0.0-0.012) X10*3/uL Nucleated RBC % (auto) 0.0 (0.0-0.2) /100WBC VBG pH (7.32-7.43) VBG pCO2 mmHg VBG pO2 mmHg VBG HCO3 (22-26) mmol/L VBG O2 Saturation % VBG Base Excess mmol/L Sodium 142 (135-145) mmol/L Potassium 4.1 (3.3-5.1) mmol/L Chloride 99 (96-108) mmol/L Carbon Dioxide 34 H (22-29) mmol/L Anion Gap 13 (12-20) BUN 10 (9-16) mg/dL Creatinine 0.72 (0.5-1.4) mg/dL Estim Creat Clear Calc 98.2 Estimated GFR > 60 Random Glucose 96 (60-115) mg/dL Lactic Acid 1.5 (0.5-2.0) mmol/L Calcium 9.4 (8.4-10.2) mg/dL Total Bilirubin 0.3 (0.0-1.0) mg/dL Direct Bilirubin 0.1 (0.0-0.5) mg/dL AST 21 (5-37) U/L ALT 12 (0-40) U/L Alkaline Phosphatase 99 (39-117) U/L Troponin I High Sens 3.3 (<3.5-35.0) ng/L B-Natriuretic Peptide 25 (<100) pg/mL Total Protein 7.0 (6.5-8.0) g/dL Albumin 4.2 (3.5-5.0) g/dL Influenza Type A (PCR) NEGATIVE (Negative) Influenza Type B (PCR) NEGATIVE (Negative) RSV RNA Qual (PCR) NEGATIVE (Negative) SARS-CoV-2 RNA (RT-PCR) NEGATIVE (Negative) 09/24/24 Range/Units 02:53 WBC (4.8-10.8) X10*3/uL RBC (4.60-5.80) X10*6/uL Hgb (14.0-18.0) g/dl Hct (42.0-52.0) % MCV (80.0-98.0) fL MCH (27.0-33.0) pg MCHC (31.0-36.0) g/dl RDW (11.0-16.0) % Plt Count (160-400) X10*3/uL MPV (9.4-12.4) fL Immature Gran % (Auto) (0.0-0.4) % Neut % (Auto) (45-73) % Lymph % (Auto) (20-40) % Harding % (Auto) (2-11) % Eos % (Auto) (0-4) % Baso % (Auto) (0-2) % Lymph # (Auto) (1.2-4.9) X10*3/uL Harding # (Auto) (0.1-1.2) X10*3/uL Eos # (Auto) (0.0-0.4) X10*3/uL Baso # (Auto) (0.0-0.2) X10*3/uL Abs Immat Gran (auto) (0.00-0.03) X10*3/uL Absolute Neuts (auto) (2.0-8.3) x10*3/uL Absolute Nucleated RBC (0.0-0.012) X10*3/uL Nucleated RBC % (auto) (0.0-0.2) /100WBC VBG pH 7.51 H (7.32-7.43) VBG pCO2 53 mmHg VBG pO2 95 mmHg VBG HCO3 42 H (22-26) mmol/L VBG O2 Saturation 100.0 % VBG Base Excess 17.3 mmol/L Sodium (135-145) mmol/L Potassium (3.3-5.1) mmol/L Chloride (96-108) mmol/L Carbon Dioxide (22-29) mmol/L Anion Gap (12-20) BUN (9-16) mg/dL Creatinine (0.5-1.4) mg/dL Estim Creat Clear Calc Estimated GFR Random Glucose (60-115) mg/dL Lactic Acid (0.5-2.0) mmol/L Calcium (8.4-10.2) mg/dL Total Bilirubin (0.0-1.0) mg/dL Direct Bilirubin (0.0-0.5) mg/dL AST (5-37) U/L ALT (0-40) U/L Alkaline Phosphatase (39-117) U/L Troponin I High Sens (<3.5-35.0) ng/L B-Natriuretic Peptide (<100) pg/mL Total Protein (6.5-8.0) g/dL Albumin (3.5-5.0) g/dL Influenza Type A (PCR) (Negative) Influenza Type B (PCR) (Negative) RSV RNA Qual (PCR) (Negative) SARS-CoV-2 RNA (RT-PCR) (Negative) Independent Interpretation I performed an independent interpretation of an: Plain X-Ray Critical Care Time Critical Care Time Critical Care Time: Yes Total Critical Care Time: 60 Attestation: I have personally provided critical care time. Time includes review of lab data, radiology results, discussion with consultants, and monitoring for potential decompensation. Intervention performed as documented. Discharge Plan Discharge Clinical Impression: Pneumonia, Chronic lung disease Patient Disposition: Admitted As Inpatient Print Language: Mauritian
[2024-09-24] MEDS: cefTRIAXone sodium 1 GM VIAL IVPUSH (02:49)
[2024-09-24] MEDS: 0.9 % Sodium Chloride 2,000 ML 999 ML IVCONT (02:50)
[2024-09-24 02:54] LABS: Basophils Percent Auto 0.7 % (0-2); Eosinophils Absolute Auto 0.4 X10*3/uL (0.0-0.4); Eosinophils Percent Auto 6.6 % (0-4); Hematocrit 33.7 % (42.0-52.0); Hemoglobin 10.5 g/dl (14.0-18.0); Imm Gran Abs Auto 0.02 X10*3/uL (0.00-0.03); Imm Gran Pct Auto 0.4 % (0.0-0.4); Lymphocytes Percent Auto 17.5 % (20-40); MANUAL DIFF FLAG NO; Mean Corpuscular HGB Conc 31.2 g/dl (31.0-36.0); Mean Corpuscular Hemoglobin 28.5 pg (27.0-33.0); Mean Corpuscular Volume 91.6 fL (80.0-98.0); Monocytes Absolute Auto 0.6 X10*3/uL (0.1-1.2); Monocytes Percent Auto 11.7 % (2-11); Neutrophils Absolute Auto 3.5 x10*3/uL (2.0-8.3); Neutrophils Percent Auto 63.1 % (45-73); Platelet Count 189 X10*3/uL (160-400); Red Blood Count 3.68 X10*6/uL (4.60-5.80); Red Cell Distribution Width 14.2 % (11.0-16.0); White Blood Count 5.5 X10*3/uL (4.8-10.8)
[2024-09-24 02:54] LABS: Venous Blood Gas Refer to POC result
[2024-09-24 02:57] LABS: VBG Base Excess 17.3 mmol/L; VBG HCO3 42 mmol/L (22-26); VBG pCO2 53 mmHg; VBG pH 7.51 (7.32-7.43); VBG pO2 95 mmHg
[2024-09-24] MEDS: Azithromycin 500 MG in 0.9 % Sodium Chloride 250 ML 125 MG IV (02:57)
[2024-09-24 03:11] LABS: Alanine Aminotransferase 12 U/L (0-40); Albumin Level 4.2 g/dL (3.5-5.0); Alkaline Phosphatase 99 U/L (39-117); Anion Gap 13 (12-20); Aspartate Amino Transferase 21 U/L (5-37); Bilirubin Direct 0.1 mg/dL (0.0-0.5); Bilirubin Total 0.3 mg/dL (0.0-1.0); Blood Urea Nitrogen 10 mg/dL (9-16); Calcium 9.4 mg/dL (8.4-10.2); Carbon Dioxide 34 mmol/L (22-29); Chloride 99 mmol/L (96-108); Creatinine Clr Calc Pharmacy 98.2; Estimated Glomerular Filt Rate > 60; Glucose Random 96 mg/dL (60-115); Potassium 4.1 mmol/L (3.3-5.1); Sodium 142 mmol/L (135-145)
[2024-09-24 03:12] LABS: Lactic Acid 1.5 mmol/L (0.5-2.0)
[2024-09-24 03:18] LABS: Troponin-I High Sensitivity 3.3 ng/L (<3.5-35.0)
[2024-09-24 03:32] LABS: Influenza A PCR NEGATIVE (Negative); Influenza B PCR NEGATIVE (Negative); Resp Syncy Virus RNA Qual PCR NEGATIVE (Negative); SARS COV2 PCR INHOUSE NEGATIVE (Negative)
[2024-09-24 03:49] LABS: B Type Natriuretic Peptide 25 pg/mL (<100)
--- NOTE | 2024-09-24 05:11 | PC.NURSE ---
pt 86% on 3L NC, O2 increased to 4L, MD aware, pt feels he is still not breathing well
[2024-09-24] MEDS: Albuterol Sulfate 2.5 MG, Albuterol/Iprat 2.5/0.5MG 3 ML 3 ML INHALE (05:28)
[2024-09-24] MEDS: Morphine Sulfate 2 MG/ML CARTRIDGE IVPUSH (06:25)
--- NOTE | 2024-09-24 06:26 | P.HPHOSP_ITS ---
History of Present Illness Date of Service: 09/24/24 Attending physician on admission: Mark Reeves Chief Complaint: SOB Patient is a 74-year-old male with a past medical history significant for history lung cancer (diagnosed 10-15 years ago s/p chemo and radiation), chronic respiratory failure with hypercapnia, CAD, chronic constipation, severe COPD, HLD, GERD, HTN, 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 The patient reports that his oxygen has been helpful in the past however not helpful today. When EMS arrived he was oxygenating at 87% with 3 L via NC. He was given Solu-Medrol 125 mg and a DuoNeb in transport. The patient reports a productive cough with beige colored sputum. He also reports chronic constipation and states that he just had a bowel movement but prior to this he had not had a bowel movement for 3-4 days. At this time he is able to pass gas and just had a bowel movement. Review of Systems 2 Constitutional: Constitutional: Denies body ache(s), Denies chills, Reports fatigue, Denies fever(s) and Denies headache(s) Eyes: Eyes: Denies change in vision and Denies loss of vision ENT: Denies headache(s), Denies nasal congestion and Denies sore throat Cardiovascular: Cardiovascular: Denies chest pain, Denies rapid heart rate, Reports leg edema, Denies lightheadedness and Reports dyspnea Respiratory: Respiratory: Reports chest congestion, Reports cough, Reports dyspnea and Reports wheezing Gastrointestinal: Gastrointestinal: Denies abdominal pain, Reports constipation, Denies nausea and Denies vomiting Genitourinary: Genitourinary: Denies hematuria, Denies dysuria, Denies urinary frequency and Denies urinary urgency Musculoskeletal: Musculoskeletal: Denies myalgias and Denies muscle cramps Integumentary/Breasts: Skin/Breast: Denies rash Neurologic: Denies confusion, Denies headache(s) and Denies loss of vision Psychiatric: Psychiatric: Denies confusion Endocrine: Endocrine: Reports fatigue Hematologic/Lymphatic: Hematologic/Lymphatic: Denies easy bleeding and Denies easy bruising Allergic/Immunologic: Allergic/Immunologic: Reports wheezing [facility] Medical History Constipation History of adenomatous polyp of colon Acute on chronic respiratory failure with hypoxia and hypercapnia Positive colorectal cancer screening using Cologuard test Respiratory failure with hypoxia and hypercapnia Bilateral carotid artery disease CAD (coronary artery disease) Anxiety and depression Anemia Chronic respiratory failure with hypoxia and hypercapnia Radiation fibrosis of lung HTN (hypertension) Dyslipidemia History of pneumonia Bacteremia due to Enterococcus COPD, severe Diabetes mellitus with hyperglycemia, without long-term current use of insulin Urinary incontinence Asthma Lung cancer Skin cancer Family History Father Medical history non-contributory Mother Medical history non-contributory Unknown family medical history Lung collapse Brother No problems noted. Brother No problems noted. Son Substance use disorder Son No problems noted. Daughter No problems noted. Sister No problems noted. Sister No problems noted. Sister No problems noted. Sister No problems noted. Other HTN (hypertension) Surgical History Hx of heart artery stent History of esophagogastroduodenoscopy (EGD) Hx of colonoscopy Social History Household Members: Spouse Household Members Other:: grandson Housing: House Are you a primary critical care clinical nurse specialist to a significant other at home: No Do you presently have visiting nurse or other home services: No Alcohol intake: never Comment: pt encouraged to ring buck for some assistance when ambulating Patient Tobacco Use Status: Former Tobacco user Tobacco use type: Cigarette Smoked in Last 30 Days: No e-Cigarette/Vaping Use: Never Used Use of substances other than those prescribed or required for medical reasons: No Advance Directives: Yes Advance Directives on File: Yes Advance Directives Date on File: 06/08/22 Nutrition Risks: No Nutritional Risk service: No Current occupational status: retired Cognitive needs: No Hearing needs: No Vision needs: No Narrative: No smoking, alcohol or drug use Meds Allergies Allergy/AdvReac Type Severity Reaction Status Date / Time fluticasone furoate (From Allergy Intermediate Rash Verified 09/24/24 02:05 Trelegy Ellipta) vilanterol (From Trelegy Allergy Intermediate Rash Verified 09/24/24 02:05 Ellipta) umeclidinium (Incruse Allergy Unknown Hives Verified 09/24/24 02:05 Ellipta) furosemide (From Lasix) AdvReac Intermediate Hallucinati Verified 09/24/24 02:05 ons Active Medications: Current Medications Acetaminophen (Acetaminophen 325 Mg Tablet) 975 mg PO Q6H PRN PRN Reason: Pain, Mild 1-3,fever,headache Calcium Carbonate (Calcium Carbonate 750 Mg Tab.Chew) 750 mg PO Q4H PRN PRN Reason: Heartburn Levalbuterol HCl 2.5 mg/ (Ipratropium [place] 0.5 mg) 0 mg INHALE RQ4H WHILE AWAKE [facility] Dextrose (Dextrose 50 % 25 Gm/50 Ml Syringe) 25 gm IVPUSH Q15M PRN; Protocol PRN Reason: per Hypoglycemia Standing Ord. Enoxaparin Sodium (Enoxaparin Sodium 40 Mg/0.4 Ml Syringe) 40 mg SUBCUT Q24H [facility] Glucose (Glucose Gel 15 Gm Gel..Gram.) 15 gm PO Q15M PRN; Protocol PRN Reason: per Hypoglycemia Standing Ord. Insulin Human Lispro (Insulin Lispro 100 Unit/Ml 3 Ml Vial) 0 unit SUBCUT QIDACHS [facility]; Protocol Magnesium Hydroxide (Milk Of Magnesia 30 Ml Oral.Susp) 30 ml PO DAILY PRN PRN Reason: Constipation Melatonin (Melatonin 3 Mg Tablet) 6 mg PO BEDTIME PRN PRN Reason: Insomnia Methylprednisolone Sodium Succinate (Methylprednisolone Sod Succ 125 Mg Vial) 60 mg IVPUSH BID [facility] Ondansetron HCl (Ondansetron Hcl 4 Mg/2 Ml Vial) 4 mg IVPUSH Q8H PRN PRN Reason: Nausea and Vomiting Oxycodone HCl (Oxycodone Hcl Immed Release 5 Mg Tablet) 5 mg PO Q6H PRN PRN Reason: Pain, Moderate(Pain Scale 4-6) Polyethylene Glycol (Polyethylene Glycol 3350 17 Gm Powd.Pack) 17 gm PO DAILY PRN PRN Reason: Constipation Senna (Sennosides 8.6 Mg Tablet) 8.6 mg PO BID [facility] Sodium Chloride (0.9 % Sodium Chloride Flush 3 Ml Syringe) 3 ml IVFLUSH QSHIFT [facility] Home Medications ?Medication ?Instructions ?Recorded ?Confirmed ?Last Taken ?Type budesonide-formoterol HFA 160 2 puff inhalation DAILY 03/14/21 06/22/24 06/15/24 History mcg-4.5 mcg/actuation aerosol inhaler (Symbicort) calcium 600 mg (as 1 tab PO DAILY 08/04/2106/0606/15/24 History carbonate)-vitamin D3 10 mcg (400 unit) tablet Oxygen Home Use 06/14/22 06/22/24 Unknown H istory azithromycin 500 mg tablet 500 mg PO MOWEFR 06/16/24 0 06/22/24 06/15/24 History bisacodyl 5 mg tablet,delayed 10 mg PO DAILY PRN const ipation 06/16/24 06/22/24 Unknown History release (Laxative (bisacodyl)) Physical Exam 2 Vital Signs and Narrative: Vital Signs: Last Vital Signs Temp 98.0 F 09/24/24 06:20 Pulse 104 H 09/24/24 06:20 Resp 19 09/24/24 06:20 BP 111/65 09/24/24 06:20 Pulse Ox 93 09/24/24 06:20 O2 Del Method Nasal Cannula 09/24/24 06:20 O2 Flow Rate 4 09/24/24 06:20 Oxygen Flow Rate 3 09/24/24 02:00 BMI result Body Mass Index 34.6 General: AOx3, mild respiratory distress, sleeping sitting upright in chair Resp: Decreased air movement, expiratory wheezing, no crackles CVS: Tachypneic, regular rhythm GI: Quiet but present bowel sounds, NT, distended Skin: Warm, dry Neuro: Cranial nerves II-XII grossly intact bilaterally. Motor grossly intact bilaterally Extremities: 1+ pitting edema edema Psych: Appropriate affect Const: General: No confusion Orientation/consciousness: No confusion Neuro: General: No confusion Results Labs 09/24/24 02:45 09/24/24 02:44 Labs: Laboratory Results - last 24 hr 09/24/24 09/24/24 09/24/24 02:44 02:45 02:47 MCV 91.6 MCH 28.5 MCHC 31.2 RDW 14.2 Plt Count 189 MPV 10.0 Immature Gran % (Auto) 0.4 Neut % (Auto) 63.1 Lymph % (Auto) 17.5 L Fisher % (Auto) 11.7 H Eos % (Auto) 6.6 H Baso % (Auto) 0.7 Lymph # (Auto) 1.0 L Fisher # (Auto) 0.6 Eos # (Auto) 0.4 Baso # (Auto) 0.0 Abs Immat Gran (auto) 0.02 Absolute Neuts (auto) 3.5 Absolute Nucleated RBC 0.000 Nucleated RBC % (auto) 0.0 VBG pH VBG pCO2 VBG pO2 VBG HCO3 VBG O2 Saturation VBG Base Excess Anion Gap 13 Estim Creat Clear Calc 98.2 Estimated GFR > 60 Random Glucose 96 Lactic Acid 1.5 Calcium 9.4 Total Bilirubin 0.3 Direct Bilirubin 0.1 AST 21 ALT 12 Alkaline Phosphatase 99 Troponin I High Sens 3.3 B-Natriuretic Peptide 25 Total Protein 7.0 Albumin 4.2 Influenza Type A (PCR) NEGATIVE Influenza Type B (PCR) NEGATIVE RSV RNA Qual (PCR) NEGATIVE SARS-CoV-2 RNA (RT-PCR) NEGATIVE 09/24/24 02:53 MCV MCH MCHC RDW Plt Count MPV Immature Gran % (Auto) Neut % (Auto) Lymph % (Auto) Fisher % (Auto) Eos % (Auto) Baso % (Auto) Lymph # (Auto) Fisher # (Auto) Eos # (Auto) Baso # (Auto) Abs Immat Gran (auto) Absolute Neuts (auto) Absolute Nucleated RBC Nucleated RBC % (auto) VBG pH 7.51 H VBG pCO2 53 VBG pO2 95 VBG HCO3 42 H VBG O2 Saturation 100.0 VBG Base Excess 17.3 Anion Gap Estim Creat Clear Calc Estimated GFR Random Glucose Lactic Acid Calcium Total Bilirubin Direct Bilirubin AST ALT Alkaline Phosphatase Troponin I High Sens B-Natriuretic Peptide Total Protein Albumin Influenza Type A (PCR) Influenza Type B (PCR) RSV RNA Qual (PCR) SARS-CoV-2 RNA (RT-PCR) Assessment and Plan (1) Acute on chronic respiratory failure with hypoxia and hypercapnia: Status: Acute (2) Sepsis: Status: Acute (3) Acute exacerbation of chronic obstructive pulmonary disease: Status: Acute (4) Chronic anemia: Status: Acute (5) Class 2 obesity: Status: Acute Plan Patient is a 74-year-old male with a past medical history significant for history lung cancer (diagnosed 10-15 years ago s/p chemo and radiation), chronic respiratory failure with hypercapnia, CAD, T2DM, chronic constipation, severe COPD, HLD, GERD, HTN, 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 Acute on chronic respiratory failure with hypoxia and hypercapnia with sepsis secondary to acute exacerbation of COPD - WBC 5.5, tachycardic and tachypneic, lactic acid normal, blood cultures x2 pending, not severe sepsis - chest x-ray with left apical pleural thickening with adjacent scarring and traction bronchiectasis, similar to prior exams. No acute cardiopulmonary abnormality is identified. - BNP normal - COVID/flu/RSV negative - d- dimer ordered - procalcitonin pending - bicarb chronically elevated, currently 34 around baseline - given Solu-Medrol 125 mg by EMS, continue 60 mg b.i.d. - levalbuterol/ipratropium RQ4H while awake - started on ceftriaxone and azithromycin in ED, switch to doxycycline b.i.d. for bronchitis and continue ceftriaxone if procalcitonin elevated - given 2 L IV fluids in ED, hold on further fluids due to pitting edema - titrate oxygen as needed - monitor CBC and BMP Chronic anemia - hemoglobin at baseline, 10.5, hematocrit 33.7 - no need for blood transfusion at this time - monitor CBC T2DM - diabetic diet - SSI CAD/HLD - statin Chronic constipation - MiraLax and senna HTN - continue home meds Class 2 obesity - BMI 34.6 - weight loss encouraged Med rec pending Full code VTE prophylaxis: Lovenox Patient with acute on chronic respiratory failure with hypoxia and hypercapnia secondary to sepsis and acute COPD exacerbation, requiring admission for at least 2 midnights stay for IV steroids, breathing treatments and antibiotics. Quality Stroke Does the patient have a stroke diagnosis?: No VTE Prior VTE?: No VTE Risk Level:: Medical - moderate - high VTE Device Contraindication: Treatment Not Indicated VTE Drug Contraindication: N/A - Med Ordered
[2024-09-24 06:33] LABS: Procalcitonin 0.03 ng/mL
--- NOTE | 2024-09-24 06:40 | PC.NURSE ---
Offered and explained patient was due for lovenox shot while in the hospital to prevent blood clots and DVTs. Patient refused even after educating the purpose twice.
[2024-09-24 07:04] LABS: Glucose, Whole Blood 237 mg/dL (60-115)
[2024-09-24] MEDS: Insulin Lispro 100 UNIT/ML 3 ML VIAL SUBCUT ×4 (07:13→21:39)
--- NOTE | 2024-09-24 07:20 | PC.NURSE ---
Pt is A+Ox4, RR even but a little labored, sts some SOB, satting well and scheduled for upcoming albuterol treatment, respiratory notify. Pt denies any pain, resting comfortably in a recliner, appeared to be asleep when entering room but easily arousable to verbal stimuli. Pt had elevated glucose this morning and was with insulin per JUN. Pt denies any chest pain or other complaints at this time.
[2024-09-24] MEDS: levalbuterol HCL 2.5 MG, Ipratropium Bromide 0.5 MG INHALE ×4 (07:26→19:24)
[2024-09-24] MEDS: Doxycycline Hyclate 100 MG in 0.9 % Sodium Chloride 250 ML 166.67 MG IV ×2 (08:39→21:40)
[2024-09-24] MEDS: Sennosides 8.6 MG TABLET PO ×2 (08:40→21:39)
[2024-09-24] MEDS: 0.9 % Sodium Chloride Flush 3 ML SYRINGE IVFLUSH ×3 (08:44→21:40)
--- NOTE | 2024-09-24 09:12 | PHA.MEDREC ---
Pharmacy Consult ? Medication Reconciliation Pharmacy has completed the medication reconciliation. Patient stated his knows his medications, spoke with and used pharmacy claims to confirm.
[2024-09-24 09:18] LABS: D Dimer High Sensitivity 340 NG/ML
--- NOTE | 2024-09-24 09:37 | MHC.CM.ED ---
Met with patient in regards to discharge planning. Patient lives with his , ambulates independently and has [employer] for oxygen and CPAP. PCP verified. Copy of HCP verified to be on file. IMM explained and signed. Patient does not feel services will be needed at d/c. Patient's , Maxine, will transport patient home when medically stable. Continue to [facility] for d/c needs.
[2024-09-24] MEDS: Bumetanide 1 MG/4 ML VIAL 0.5 MG IVPUSH (10:23)
[2024-09-24] MEDS: Metoprolol Tartrate 25 MG TABLET PO ×2 (10:24→21:39)
[2024-09-24 11:33] LABS: Glucose, Whole Blood 300 mg/dL (60-115)
[2024-09-24 12:52] LABS: Glucose, Whole Blood 280 mg/dL (60-115)
--- NOTE | 2024-09-24 13:00 | PC.NURSE ---
hospice nurse arrived to speak with the family, new plan is to admit the pt under GIP orders for comfort Kalesha the hospice nurse wrote out medication orders that hospice are requesting
--- NOTE | 2024-09-24 15:24 | PM.EVENT ---
Event Note Date of Service: 09/24/24 Event Note: Seen and evaluated Has Edema in LE; to start Bumex IV Continue steroids and nebulizers PT eval CPAP at night wean down O2 as tolerated Time Spent With Patient Time: Total time managing care of this patient today ____ minutes.
[2024-09-24 17:55] LABS: Glucose, Whole Blood 260 mg/dL (60-115)
[2024-09-24 21:19] LABS: Glucose, Whole Blood 241 mg/dL (60-115)
[2024-09-24] MEDS: methylPREDNISolone Sod Succ 125 MG/2 ML VIAL 60 MG IVPUSH (21:39)
[2024-09-24] MEDS: LORazepam 1 MG TABLET PO (21:39)
[2024-09-24] MEDS: metFORMIN HCl 1,000 MG TABLET 1000 MG PO (21:39)
[2024-09-24] MEDS: Atorvastatin Calcium 80 MG TABLET PO (21:39)
[2024-09-25] VITALS (12 sets, daily range): BP systolic 113–147; BP diastolic 58–71; PULSE 72–93; RESP 16–18; TEMP 36.2–37; O2SAT 91–100; BMI 34.9
[2024-09-25] MEDS: Omeprazole 20 MG CAPSULE.DR PO (06:19)
[2024-09-25] MEDS: LORazepam 1 MG TABLET PO ×2 (06:21→20:59)
[2024-09-25 07:20] LABS: Glucose, Whole Blood 217 mg/dL (60-115)
[2024-09-25 07:24] LABS: MANUAL DIFF FLAG NO
[2024-09-25 07:35] LABS: Hematocrit 32.7 % (42.0-52.0); Imm Gran Abs Auto 0.04 X10*3/uL (0.00-0.03); Imm Gran Pct Auto 0.6 % (0.0-0.4); Lymphocytes Absolute Auto 0.5 X10*3/uL (1.2-4.9); Lymphocytes Percent Auto 7.8 % (20-40); Mean Corpuscular HGB Conc 30.6 g/dl (31.0-36.0); Mean Corpuscular Hemoglobin 27.9 pg (27.0-33.0); Mean Corpuscular Volume 91.1 fL (80.0-98.0); Mean Platelet Volume 10.6 fL (9.4-12.4); Monocytes Absolute Auto 0.4 X10*3/uL (0.1-1.2); Monocytes Percent Auto 5.5 % (2-11); Neutrophils Absolute Auto 5.5 x10*3/uL (2.0-8.3); Neutrophils Percent Auto 86.1 % (45-73); Platelet Count 215 X10*3/uL (160-400); Red Blood Count 3.59 X10*6/uL (4.60-5.80); Red Cell Distribution Width 14.2 % (11.0-16.0); White Blood Count 6.4 X10*3/uL (4.8-10.8)
[2024-09-25 07:49] LABS: Anion Gap 13 (12-20); Blood Urea Nitrogen 18 mg/dL (9-16); Calcium 9.6 mg/dL (8.4-10.2); Carbon Dioxide 35 mmol/L (22-29); Chloride 95 mmol/L (96-108); Creatinine Clr Calc Pharmacy 89.9; Estimated Glomerular Filt Rate > 60; Glucose Random 248 mg/dL (60-115); Potassium 4.5 mmol/L (3.3-5.1); Sodium 138 mmol/L (135-145)
[2024-09-25] MEDS: Sennosides 8.6 MG TABLET PO ×3 (08:16→21:00)
[2024-09-25] MEDS: Insulin Lispro 100 UNIT/ML 3 ML VIAL SUBCUT ×4 (08:16→21:02)
[2024-09-25] MEDS: Metoprolol Tartrate 25 MG TABLET PO ×2 (08:16→21:00)
[2024-09-25] MEDS: Escitalopram Oxalate 20 MG TABLET PO (08:16)
[2024-09-25] MEDS: Doxycycline Hyclate 100 MG in 0.9 % Sodium Chloride 250 ML 166.67 MG IV ×2 (08:17→21:02)
[2024-09-25] MEDS: 0.9 % Sodium Chloride Flush 3 ML SYRINGE IVFLUSH ×3 (08:17→21:03)
[2024-09-25] MEDS: levalbuterol HCL 2.5 MG, Ipratropium Bromide 0.5 MG INHALE ×4 (08:18→19:08)
[2024-09-25] MEDS: methylPREDNISolone Sod Succ 125 MG/2 ML VIAL 60 MG IVPUSH ×2 (08:21→21:02)
[2024-09-25] MEDS: metFORMIN HCl 1,000 MG TABLET 1000 MG PO ×2 (08:21→20:59)
[2024-09-25] MEDS: Fluticasone/Vilanterol 200/25 BLST.W.DEV 1 PUFF INHALE (08:34)
--- NOTE | 2024-09-25 08:49 | MHC.CM.PN ---
PT is recommending home with services VS Inpatient Pulmonary Rehab. CM will follow.
[2024-09-25] MEDS: Bumetanide 1 MG/4 ML VIAL 0.5 MG IVPUSH (09:21)
--- NOTE | 2024-09-25 10:42 | PC.NURSE ---
Patient refusing to have bed alarm on. Educated on importance of high fall risk protocol. Patient encouraged to utilize call buck to ask for assistance when needed.
[2024-09-25 11:23] LABS: Glucose, Whole Blood 241 mg/dL (60-115)
[2024-09-25 15:37] LABS: Glucose, Whole Blood 223 mg/dL (60-115)
--- NOTE | 2024-09-25 15:52 | HO.PM.IMPN ---
Subjective Subjective Date of Service: 09/25/24 Interval History: seen and evaluated this morning feels little better denies fever or chills has edema in LE no other events Review of Systems Review of Systems: Yes all other systems are reviewed and are negative Physical Exam Vital Signs: Vital Signs: Last Vital Signs Temp 97.4 F 09/25/24 15:40 Pulse 72 09/25/24 15:41 Resp 18 09/25/24 15:41 BP 122/68 09/25/24 15:40 Pulse Ox 100 09/25/24 15:40 O2 Del Method Nasal Cannula 09/25/24 15:40 O2 Flow Rate 6 09/25/24 15:40 Oxygen Flow Rate 3 09/24/24 02:00 BMI result Body Mass Index 34.9 Const: Other: Constitutional : Awake, interactive, not in distress Neck : Normal inspection, Supple Cardiovascular : RRR, no JVP, +1 bilateral lower extremity edema Respiratory : good bilateral air entry, basal fine crackles, scattered wheezes or rhonchi Gastrointestinal: soft, lax, Normal bowel sounds, Non tender Skin : Warm, Dry Neurological : Alert & oriented x3, No focal deficit Objective Data Active Medications Acetaminophen (Acetaminophen 325 Mg Tablet) 975 mg PO Q6H PRN PRN Reason: Pain, Mild 1-3,fever,headache Atorvastatin Calcium (Atorvastatin Calcium 80 Mg Tablet) 80 mg PO BEDTIME [facility] Last Admin: 09/24/24 21:39 Dose: 80 mg Documented By: TERESEZEShashank Bisacodyl (Bisacodyl 5 Mg Tablet.) 10 mg PO DAILY PRN PRN Reason: Constipation Bumetanide (Bumetanide 1 Mg/4 Ml Vial) 0.5 mg IVPUSH DAILY [facility]; Protocol Last Admin: 09/25/24 09:21 Dose: 0.5 mg Documented By: TOI Calcium Carbonate (Calcium Carbonate 750 Mg Tab.Chew) 750 mg PO Q4H PRN PRN Reason: Heartburn Levalbuterol HCl 2.5 mg/ (Ipratropium [place] 0.5 mg) 0 mg INHALE RQ4H WHILE AWAKE [facility] Last Admin: 09/25/24 15:39 Dose: 1 dose Documented By: ELENA Dextrose (Dextrose 50 % 25 Gm/50 Ml Syringe) 25 gm IVPUSH Q15M PRN; Protocol PRN Reason: per Hypoglycemia Standing Ord. Enoxaparin Sodium (Enoxaparin Sodium 40 Mg/0.4 Ml Syringe) 40 mg SUBCUT Q24H [facility] Last Admin: 09/25/24 05:35 Dose: Not Given Documented By: JACKELYN Non-Admin Reason: Patient Refused Escitalopram Oxalate (Escitalopram Oxalate 20 Mg Tablet) 20 mg PO DAILY [facility] Last Admin: 09/25/24 08:16 Dose: 20 mg Documented By: TOI Fluticasone/Vilanterol (Fluticasone/Vilanterol 200/25 Blst.W.Dev) 1 puff INHALE RDAILY [facility] Last Admin: 09/25/24 08:34 Dose: 1 puff Documented By: ELENA Glucose (Glucose Gel 15 Gm Gel..Gram.) 15 gm PO Q15M PRN; Protocol PRN Reason: per Hypoglycemia Standing Ord. Doxycycline Hyclate 100 mg/ (Sodium Chloride) 250 mls @ 166.67 mls/hr IV BID [facility] Last Infusion: 09/25/24 11:01 Dose: Infused Documented By: TOI Insulin Human Lispro (Insulin Lispro 100 Unit/Ml 3 Ml Vial) 0 unit SUBCUT QIDACHS [facility]; Protocol Last Admin: 09/25/24 12:46 Dose: 4 unit Documented By: TOI Lactulose (Lactulose 20 Gm/30 Ml Solution) 10 gm PO DAILY PRN PRN Reason: Constipation Lorazepam (Lorazepam 1 Mg Tablet) 1 mg PO BID PRN PRN Reason: Anxiety Last Admin: 09/25/24 06:21 Dose: 1 mg Documented By: JACKELYN Magnesium Hydroxide (Milk Of Magnesia 30 Ml Oral.Susp) 30 ml PO DAILY PRN PRN Reason: Constipation Melatonin (Melatonin 3 Mg Tablet) 6 mg PO BEDTIME PRN PRN Reason: Insomnia Metformin HCl (Metformin Hcl 1,000 Mg Tablet) 1,000 mg PO BID [facility] Last Admin: 09/25/24 08:21 Dose: 1,000 mg Documented By: TOI Methylprednisolone Sodium Succinate (Methylprednisolone Sod Succ 125 Mg/2 Ml Vial) 60 mg IVPUSH BID [facility] Last Admin: 09/25/24 08:21 Dose: 60 mg Documented By: TOI Metoprolol Tartrate (Metoprolol Tartrate 25 Mg Tablet) 25 mg PO BID [facility]; Protocol Last Admin: 09/25/24 08:16 Dose: 25 mg Documented By: TOI Omeprazole (Omeprazole 20 Mg Capsule.) 20 mg PO DAILY@0630 [facility] Last Admin: 09/25/24 06:19 Dose: 20 mg Documented By: NATHANIEL-HARVEYZEShashank Ondansetron HCl (Ondansetron Hcl 4 Mg/2 Ml Vial) 4 mg IVPUSH Q8H PRN PRN Reason: Nausea and Vomiting Oxycodone HCl (Oxycodone Hcl Immed Release 5 Mg Tablet) 5 mg PO Q6H PRN PRN Reason: Pain, Moderate(Pain Scale 4-6) Polyethylene Glycol (Polyethylene Glycol 3350 17 Gm Powd.Pack) 17 gm PO DAILY PRN PRN Reason: Constipation Senna (Sennosides 8.6 Mg Tablet) 8.6 mg PO BID [facility] Last Admin: 09/25/24 08:16 Dose: 8.6 mg Documented By: TOI Senna (Sennosides 8.6 Mg Tablet) 8.6 mg PO BID [facility] Last Admin: 09/25/24 08:16 Dose: 8.6 mg Documented By: TOI Sodium Chloride (0.9 % Sodium Chloride Flush 3 Ml Syringe) 3 ml IVFLUSH QSHIFT [facility] Last Admin: 09/25/24 08:17 Dose: 3 ml Documented By: TOI Labs 09/25/24 06:53 09/25/24 06:53 Labs: Laboratory Results - last 24 hr 09/24/24 09/24/24 09/25/24 17:51 21:16 06:53 MCV 91.1 MCH 27.9 MCHC 30.6 L RDW 14.2 Plt Count 215 MPV 10.6 Immature Gran % (Auto) 0.6 H Neut % (Auto) 86.1 H Lymph % (Auto) 7.8 L [place] % (Auto) 5.5 Eos % (Auto) 0.0 Baso % (Auto) 0.0 Lymph # (Auto) 0.5 L [place] # (Auto) 0.4 Eos # (Auto) 0.0 Baso # (Auto) 0.0 Abs Immat Gran (auto) 0.04 H Absolute Neuts (auto) 5.5 Absolute Nucleated RBC 0.000 Nucleated RBC % (auto) 0.0 Anion Gap 13 Estim Creat Clear Calc 89.9 Estimated GFR > 60 POC Glucose 260 H 241 H Random Glucose 248 H Calcium 9.6 09/25/24 09/25/24 09/25/24 07:03 11:12 15:14 MCV MCH MCHC RDW Plt Count MPV Immature Gran % (Auto) Neut % (Auto) Lymph % (Auto) [place] % (Auto) Eos % (Auto) Baso % (Auto) Lymph # (Auto) [place] # (Auto) Eos # (Auto) Baso # (Auto) Abs Immat Gran (auto) Absolute Neuts (auto) Absolute Nucleated RBC Nucleated RBC % (auto) Anion Gap Estim Creat Clear Calc Estimated GFR POC Glucose 217 H 241 H 223 H Random Glucose Calcium Microbiology Microbiology Results: Microbiology 09/24/24 02:44 Blood Culture - Preliminary Blood - Venous No growth after 24 hours. 09/24/24 02:46 Blood Culture - Preliminary Blood - Venous No growth after 24 hours. 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 Acute on chronic respiratory failure with hypoxia and hypercapnia secondary to acute exacerbation of COPD improving CXR showing left apical pleural thickening with adjacent scarring and traction bronchiectasis, similar to prior exams. -ve d- dimer and procalcitonin Solu-Medrol IV bid evalbuterol/ipratropium RQ4H while awake Continue doxycycline b.i.d. for bronchitis titrate oxygen as needed to 3L baseline Lower extremities edema could be related to right sided heart failure (no evidence of liver cirrhosis in prev images) normal BNP of 25 check Echo Bumex 0.5 mg IV daily for now monitor I\O and BMP Chronic anemia hemoglobin at baseline, 10.5, hematocrit 33.7 monitor CBC T2DM diabetic diet SSI and Metformin CAD/HLD statin Chronic constipation MiraLax and senna HTN continue home meds Class 2 obesity BMI 34.6 weight loss encouraged Full code VTE prophylaxis: Lovenox Patient with acute on chronic respiratory failure with hypoxia and hypercapnia secondary to sepsis and acute COPD exacerbation, requiring overnight stay for IV steroids, IV Bumex, breathing treatments and antibiotics. Quality Stroke Does the patient have a stroke diagnosis?: No VTE Prior VTE?: No VTE Risk Level:: Medical - moderate - high VTE Device Contraindication: Treatment Not Indicated VTE Drug Contraindication: N/A - Med Ordered
--- NOTE | 2024-09-25 17:00 | CA_ITS ---
Transthoracic Echocardiogram Patient (Last, First, Middle): Fitz Reed G Gender: Male Date of : 1950 Age: 74 Procedure Date: 09/25/2024 Procedure Type: Transthoracic [place] [facility] [place]: 167.64 cm Weight: 97.98 kg BSA: 2.07 m2 Heart Rate: bpm BP: 122 / 68 mmHg [employer] Associate: Referring MD: Arsenio Ventura MD Symptoms: Edema in LE Study Quality: Good ECG Rhythm: Sinus Conclusions: - Normal left ventricular size, thickness, systolic function, and wall motion. The visually estimated ejection fraction is between 60-65%. - E/E prime ratio is between 8 and 15 consistent with indeterminate filling pressures. - Mildly increased right ventricular cavity size. There is normal right ventricular systolic function. - There is mild aortic valve stenosis. Findings Left Ventricle Normal left ventricular size, thickness, systolic function, and wall motion. The visually estimated ejection fraction is between 60-65%. There is no evidence of regional wall motion abnormalities. Abnormal diastolic function is noted. Spectral Doppler is indicative of an impaired relaxation filling pattern. E/E prime ratio is between 8 and 15 consistent with indeterminate filling pressures. Right Ventricle Mildly increased right ventricular cavity size. There is normal right ventricular systolic function. Atria The left atrium is likely dilated. The right atrium is normal in size. Aortic Valve The aortic valve was not well visualized. There is mild aortic valve stenosis. The peak aortic velocity is 2.49 m/s. The mean gradient is 12 mmHg. The aortic valve area is 1.80 cm2. There is no aortic valve regurgitation. Mitral Valve The mitral valve appears normal. There is no mitral valve regurgitation. There is no mitral valve stenosis. Pulmonic Valve The pulmonic valve is likely normal. Tricuspid Valve Normal tricuspid valve structure. There is trace tricuspid valve regurgitation. Normal right atrial pressure. There is no evidence of pulmonary hypertension. Great Vessels All visible segments of the aorta are normal in size. Venous The inferior vena cava is normal in size and collapses greater than 50% with inspiration. Pericardium/Pleural There is no evidence of pericardial effusion. Prior Study Comparison Changes noted compared to prior study dated: 07/30/2022. Mild RV dilation. Measurements 2D Linear Measurements IVSd: 0.96 0.6-0.9/0.6-1.0 cm LVIDd: 5.43 3.9-5.3/4.2-5.9 cm LVIDd Index: 2.62 2.4-3.2/2.2-3.1 cm/m2 LVIDs: 3.23 2.0-3.6 cm LVPWd: 1.10 0.7-1.1 cm Ao Root: 3.20 2.1-3.5 cm LA Diam: 3.70 2.7-3.8/3.0-4.0 cm LAIDs Index: 1.79 1.5-2.3 cm/m2 LV Mass: 270.14 67-162/88-224 g LV Mass Index: 130.50 43-95/49-115 g/m2 LVOT Diam: 2.20 3.0+(-)1.3 cm Mitral Valve MV Pk E: 0.95 MV PK A: 1.17 MV Decel Time: 211.00 E/A: 0.80 E'Lateral: 7.62 E'Medial: 6.53 E/E' Med: 14.50 E/E' Lat: 12.40 PHT: 62.00 MVA PHT: 3.55 Decel [place]: 4.50 Aortic Valve AoV Pk Alberto: 2.49 AoV Mn Alberto: 1.54 AoV VTI: 0.57 AoV Pk Grad: 25.00 Aov Mn Grad: 12.00 UMAIR Cont.VTI: 1.80 LVOT LVOT Pk Alberto: 1.26 LVOT Mn Alberto: 0.79 LVOT VTI: 0.27 LVOT Pk Grad: 6.00 LVOT Mn Grad: 3.00 LVOT Diam: 2.20 LVOT Area: 3.80 Diastolic Function MV Pk E: 0.95 MV Pk A: 1.17 E/A: 0.80 E'Medial: 6.53 E/E' Med: 14.50 E' Laterial: 7.62 E/E' Lat: 12.40 Right Ventricle TAPSE (mm): 28.00 TVS' Alberto: 16.00 Tricuspid Valve TR Pk Alberto: 1.77 TR Pk Grad: 13.00 RA Press: 3.00 RVSP: 16.00 Great Vessels Aorta Ao Root-2D: 3.20 2.0-3.7 cm Ao Asc: 3.40 2.1-3.4 cm Pulmonary Valve PV Pk Alberto: 1.22 Peak PV Grad: 6.00 Updated in Other Vendor System with Status of Final Carlitos Meyers MD electronically signed on 09/25/2024 9:34:15 PM with status of Final
[2024-09-25 20:52] LABS: Glucose, Whole Blood 219 mg/dL (60-115)
[2024-09-25] MEDS: Atorvastatin Calcium 80 MG TABLET PO (21:00)
[2024-09-26] VITALS (11 sets, daily range): BP systolic 110–133; BP diastolic 56–74; PULSE 74–111; RESP 16–20; TEMP 36.1–36.8; O2SAT 92–100; BMI 33.7
[2024-09-26] MEDS: Omeprazole 20 MG CAPSULE.DR PO (06:08)
[2024-09-26 06:58] LABS: MANUAL DIFF FLAG NO
[2024-09-26 07:01] LABS: Hematocrit 32.9 % (42.0-52.0); Hemoglobin 9.8 g/dl (14.0-18.0); Imm Gran Abs Auto 0.05 X10*3/uL (0.00-0.03); Imm Gran Pct Auto 0.8 % (0.0-0.4); Lymphocytes Absolute Auto 0.6 X10*3/uL (1.2-4.9); Mean Corpuscular HGB Conc 29.8 g/dl (31.0-36.0); Mean Corpuscular Hemoglobin 27.7 pg (27.0-33.0); Mean Corpuscular Volume 92.9 fL (80.0-98.0); Monocytes Absolute Auto 0.3 X10*3/uL (0.1-1.2); Monocytes Percent Auto 4.9 % (2-11); Neutrophils Absolute Auto 5.6 x10*3/uL (2.0-8.3); Neutrophils Percent Auto 85.3 % (45-73); Platelet Count 212 X10*3/uL (160-400); Red Blood Count 3.54 X10*6/uL (4.60-5.80); Red Cell Distribution Width 14.6 % (11.0-16.0); White Blood Count 6.5 X10*3/uL (4.8-10.8)
[2024-09-26 07:24] LABS: Anion Gap 16 (12-20); Blood Urea Nitrogen 22 mg/dL (9-16); Calcium 9.6 mg/dL (8.4-10.2); Carbon Dioxide 36 mmol/L (22-29); Chloride 94 mmol/L (96-108); Creatinine Clr Calc Pharmacy 86.2; Estimated Glomerular Filt Rate > 60; Glucose Random 235 mg/dL (60-115); Potassium 4.5 mmol/L (3.3-5.1); Sodium 141 mmol/L (135-145)
[2024-09-26 07:28] LABS: B Type Natriuretic Peptide 35 pg/mL (<100)
[2024-09-26] MEDS: levalbuterol HCL 2.5 MG, Ipratropium Bromide 0.5 MG INHALE ×4 (07:32→18:50)
[2024-09-26] MEDS: Fluticasone/Vilanterol 200/25 BLST.W.DEV 1 PUFF INHALE (07:32)
[2024-09-26 07:45] LABS: Glucose, Whole Blood 224 mg/dL (60-115)
--- NOTE | 2024-09-26 08:06 | P.PNIM_ITS ---
Subjective Subjective Date of Service: 09/26/24 Interval History: Seen in follow up for respiratory failure in setting of copd exacerbation Interval history: +edema. Reports sob/roberts, wheezing, cough baseline. On baseline O2. No chest pain Review of Systems Review of Systems: Yes all other systems are reviewed and are negative Physical Exam 2 Vital Signs: Vital Signs: Last Vital Signs Temp 98.2 F 09/26/24 07:05 Pulse 74 09/26/24 07:36 Resp 16 09/26/24 07:36 BP 114/63 09/26/24 07:05 Pulse Ox 96 09/26/24 07:05 O2 Del Method Nasal Cannula 09/26/24 07:05 O2 Flow Rate 3 09/26/24 07:05 Oxygen Flow Rate 3 09/24/24 02:00 BMI result Body Mass Index 33.7 Objective Data Active Medications Acetaminophen (Acetaminophen 325 Mg Tablet) 975 mg PO Q6H PRN PRN Reason: Pain, Mild 1-3,fever,headache Atorvastatin Calcium (Atorvastatin Calcium 80 Mg Tablet) 80 mg PO BEDTIME [facility] Last Admin: 09/25/24 21:00 Dose: 80 mg Documented By: JANICE Bisacodyl (Bisacodyl 5 Mg Tablet.Dr) 10 mg PO DAILY PRN PRN Reason: Constipation Bumetanide (Bumetanide 1 Mg/4 Ml Vial) 0.5 mg IVPUSH DAILY [facility]; Protocol Last Admin: 09/25/24 09:21 Dose: 0.5 mg Documented By: TOI Calcium Carbonate (Calcium Carbonate 750 Mg Tab.Chew) 750 mg PO Q4H PRN PRN Reason: Heartburn Levalbuterol HCl 2.5 mg/ (Ipratropium [place] 0.5 mg) 0 mg INHALE RQ4H WHILE AWAKE [facility] Last Admin: 09/26/24 07:32 Dose: 3 dose Documented By: ROLY Dextrose (Dextrose 50 % 25 Gm/50 Ml Syringe) 25 gm IVPUSH Q15M PRN; Protocol PRN Reason: per Hypoglycemia Standing Ord. Enoxaparin Sodium (Enoxaparin Sodium 40 Mg/0.4 Ml Syringe) 40 mg SUBCUT Q24H [facility] Last Admin: 09/26/24 06:13 Dose: Not Given Documented By: JANICE Non-Admin Reason: Patient declining Escitalopram Oxalate (Escitalopram Oxalate 20 Mg Tablet) 20 mg PO DAILY [facility] Last Admin: 09/25/24 08:16 Dose: 20 mg Documented By: TOI Fluticasone/Vilanterol (Fluticasone/Vilanterol 200/25 Blst.W.Dev) 1 puff INHALE RDAILY [facility] Last Admin: 09/26/24 07:32 Dose: 1 puff Documented By: ROLY Glucose (Glucose Gel 15 Gm Gel..Gram.) 15 gm PO Q15M PRN; Protocol PRN Reason: per Hypoglycemia Standing Ord. Doxycycline Hyclate 100 mg/ (Sodium Chloride) 250 mls @ 166.67 mls/hr IV BID [facility] Last Infusion: 09/25/24 22:32 Dose: Infused Documented By: JANICE Insulin Human Lispro (Insulin Lispro 100 Unit/Ml 3 Ml Vial) 0 unit SUBCUT QIDACHS [facility]; Protocol Last Admin: 09/25/24 21:02 Dose: 4 unit Documented By: JANICE Lactulose (Lactulose 20 Gm/30 Ml Solution) 10 gm PO DAILY PRN PRN Reason: Constipation Lorazepam (Lorazepam 1 Mg Tablet) 1 mg PO BID PRN PRN Reason: Anxiety Last Admin: 09/25/24 20:59 Dose: 1 mg Documented By: JANICE Comments: requested for anxiety Magnesium Hydroxide (Milk Of Magnesia 30 Ml Oral.Susp) 30 ml PO DAILY PRN PRN Reason: Constipation Melatonin (Melatonin 3 Mg Tablet) 6 mg PO BEDTIME PRN PRN Reason: Insomnia Metformin HCl (Metformin Hcl 1,000 Mg Tablet) 1,000 mg PO BID [facility] Last Admin: 09/25/24 20:59 Dose: 1,000 mg Documented By: JANICE Methylprednisolone Sodium Succinate (Methylprednisolone Sod Succ 125 Mg/2 Ml Vial) 60 mg IVPUSH BID [facility] Last Admin: 09/25/24 21:02 Dose: 60 mg Documented By: JANICE Metoprolol Tartrate (Metoprolol Tartrate 25 Mg Tablet) 25 mg PO BID [facility]; Protocol Last Admin: 09/25/24 21:00 Dose: 25 mg Documented By: JANICE Omeprazole (Omeprazole 20 Mg Capsule.) 20 mg PO DAILY@0630 [facility] Last Admin: 09/26/24 06:08 Dose: 20 mg Documented By: JANICE Ondansetron HCl (Ondansetron Hcl 4 Mg/2 Ml Vial) 4 mg IVPUSH Q8H PRN PRN Reason: Nausea and Vomiting Oxycodone HCl (Oxycodone Hcl Immed Release 5 Mg Tablet) 5 mg PO Q6H PRN PRN Reason: Pain, Moderate(Pain Scale 4-6) Polyethylene Glycol (Polyethylene Glycol 3350 17 Gm Powd.Pack) 17 gm PO DAILY PRN PRN Reason: Constipation Senna (Sennosides 8.6 Mg Tablet) 8.6 mg PO BID [facility] Last Admin: 09/25/24 21:00 Dose: 8.6 mg Documented By: JANICE Sodium Chloride (0.9 % Sodium Chloride Flush 3 Ml Syringe) 3 ml IVFLUSH QSHIFT [facility] Last Admin: 09/25/24 21:03 Dose: 3 ml Documented By: JANICE Labs 09/26/24 06:07 09/26/24 06:07 Labs: Laboratory Results - last 24 hr 09/25/24 09/25/24 09/25/24 11:12 15:14 20:47 MCV MCH MCHC RDW Plt Count MPV Immature Gran % (Auto) Neut % (Auto) Lymph % (Auto) [place] % (Auto) Eos % (Auto) Baso % (Auto) Lymph # (Auto) [place] # (Auto) Eos # (Auto) Baso # (Auto) Abs Immat Gran (auto) Absolute Neuts (auto) Absolute Nucleated RBC Nucleated RBC % (auto) Anion Gap Estim Creat Clear Calc Estimated GFR POC Glucose 241 H 223 H 219 H Random Glucose Calcium B-Natriuretic Peptide 09/26/24 09/26/24 06:07 07:35 MCV 92.9 MCH 27.7 MCHC 29.8 L RDW 14.6 Plt Count 212 MPV 11.0 Immature Gran % (Auto) 0.8 H Neut % (Auto) 85.3 H Lymph % (Auto) 9.0 L [place] % (Auto) 4.9 Eos % (Auto) 0.0 Baso % (Auto) 0.0 Lymph # (Auto) 0.6 L [place] # (Auto) 0.3 Eos # (Auto) 0.0 Baso # (Auto) 0.0 Abs Immat Gran (auto) 0.05 H Absolute Neuts (auto) 5.6 Absolute Nucleated RBC 0.000 Nucleated RBC % (auto) 0.0 Anion Gap 16 Estim Creat Clear Calc 86.2 Estimated GFR > 60 POC Glucose 224 H Random Glucose 235 H Calcium 9.6 B-Natriuretic Peptide 35 Microbiology Microbiology Results: Microbiology 09/24/24 02:44 Blood Culture - Preliminary Blood - Venous No growth after 48 hours. 09/24/24 02:46 Blood Culture - Preliminary Blood - Venous No growth after 48 hours. 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 Acute on chronic respiratory failure with hypoxia and hypercapnia secondary to acute exacerbation of COPD improving CXR showing left apical pleural thickening with adjacent scarring and traction bronchiectasis, similar to prior exams. -ve d- dimer and procalcitonin Solu-Medrol IV bid- changed to po / evalbuterol/ipratropium RQ4H while awake Continue doxycycline b.i.d. for bronchitis, changed to PO / titrate oxygen as needed to 3L baseline HFpEF could be related to right sided heart failure (no evidence of liver cirrhosis in prev images) normal BNP of 25 Echo shows normal LV systolic function with EF 60-65%, no regional wall motion abnormalities. There is abnormal diastolic function noted. Mild aortic valve stenosis, otherwise no valvular abnormality Continue IV bumex 0.5mg daily monitor I\O and BMP Chronic anemia hemoglobin at baseline, 10.5, hematocrit 33.7 monitor CBC T2DM diabetic diet SSI and Metformin CAD/HLD statin Chronic constipation MiraLax and senna HTN continue home meds Class 2 obesity BMI 34.6 weight loss encouraged Full code VTE prophylaxis: Lovenox Patient with acute on chronic respiratory failure with hypoxia and hypercapnia secondary to sepsis and acute COPD exacerbation, requiring overnight stay for IV steroids, IV Bumex, breathing treatments and antibiotics. Quality Stroke Does the patient have a stroke diagnosis?: No VTE Prior VTE?: No VTE Risk Level:: Medical - moderate - high VTE Device Contraindication: Treatment Not Indicated VTE Drug Contraindication: N/A - Med Ordered
[2024-09-26] MEDS: 0.9 % Sodium Chloride Flush 3 ML SYRINGE IVFLUSH ×3 (08:43→21:21)
[2024-09-26] MEDS: Insulin Lispro 100 UNIT/ML 3 ML VIAL SUBCUT ×4 (08:43→21:20)
[2024-09-26] MEDS: Doxycycline Hyclate 100 MG in 0.9 % Sodium Chloride 250 ML 166.67 MG IV (08:45)
[2024-09-26] MEDS: methylPREDNISolone Sod Succ 125 MG/2 ML VIAL 60 MG IVPUSH (08:45)
[2024-09-26] MEDS: metFORMIN HCl 1,000 MG TABLET 1000 MG PO ×2 (08:46→21:20)
[2024-09-26] MEDS: Metoprolol Tartrate 25 MG TABLET PO ×2 (08:46→21:16)
[2024-09-26] MEDS: Sennosides 8.6 MG TABLET PO ×2 (08:46→21:20)
[2024-09-26] MEDS: Escitalopram Oxalate 20 MG TABLET PO (08:46)
[2024-09-26] MEDS: Bumetanide 1 MG/4 ML VIAL 0.5 MG IVPUSH (08:46)
[2024-09-26 11:20] LABS: Glucose, Whole Blood 250 mg/dL (60-115)
[2024-09-26 15:52] LABS: Glucose, Whole Blood 205 mg/dL (60-115)
[2024-09-26] MEDS: LORazepam 1 MG TABLET PO (17:25)
[2024-09-26 20:00] LABS: Glucose, Whole Blood 291 mg/dL (60-115)
[2024-09-26] MEDS: Atorvastatin Calcium 80 MG TABLET PO (21:16)
[2024-09-26] MEDS: Doxycycline Monohydrate 100 MG CAPSULE PO (21:16)
[2024-09-26] MEDS: Melatonin 3 MG TABLET 6 MG PO (21:24)
[2024-09-26] MEDS: bisacodyL 5 MG TABLET.DR 10 MG PO (21:24)
[2024-09-27] VITALS (12 sets, daily range): BP systolic 106–141; BP diastolic 60–73; PULSE 72–111; RESP 16–20; TEMP 36.3–36.6; O2SAT 64–100; BMI 33.3
[2024-09-27 05:46] LABS: MANUAL DIFF FLAG NO
[2024-09-27 05:50] LABS: Basophils Percent Auto 0.1 % (0-2); Eosinophils Percent Auto 0.3 % (0-4); Hemoglobin 9.6 g/dl (14.0-18.0); Imm Gran Abs Auto 0.04 X10*3/uL (0.00-0.03); Imm Gran Pct Auto 0.6 % (0.0-0.4); Lymphocytes Absolute Auto 1.4 X10*3/uL (1.2-4.9); Lymphocytes Percent Auto 19.9 % (20-40); Mean Corpuscular Hemoglobin 27.7 pg (27.0-33.0); Mean Corpuscular Volume 89.6 fL (80.0-98.0); Mean Platelet Volume 10.2 fL (9.4-12.4); Monocytes Absolute Auto 0.9 X10*3/uL (0.1-1.2); Monocytes Percent Auto 12.6 % (2-11); Neutrophils Absolute Auto 4.8 x10*3/uL (2.0-8.3); Neutrophils Percent Auto 66.5 % (45-73); Platelet Count 195 X10*3/uL (160-400); Red Blood Count 3.46 X10*6/uL (4.60-5.80); Red Cell Distribution Width 14.4 % (11.0-16.0); White Blood Count 7.2 X10*3/uL (4.8-10.8)
[2024-09-27] MEDS: Omeprazole 20 MG CAPSULE.DR PO (05:55)
[2024-09-27] MEDS: Lactulose 20 GM/30 ML SOLUTION 10 GM PO (05:56)
[2024-09-27 06:08] LABS: Anion Gap 15 (12-20); Blood Urea Nitrogen 25 mg/dL (9-16); Calcium 9.2 mg/dL (8.4-10.2); Carbon Dioxide 41 mmol/L (22-29); Chloride 91 mmol/L (96-108); Creatinine Clr Calc Pharmacy 79.3; Estimated Glomerular Filt Rate > 60; Glucose Random 106 mg/dL (60-115); Potassium 4.1 mmol/L (3.3-5.1); Sodium 143 mmol/L (135-145)
[2024-09-27] MEDS: levalbuterol HCL 2.5 MG, Ipratropium Bromide 0.5 MG INHALE ×4 (07:36→18:33)
[2024-09-27] MEDS: Fluticasone/Vilanterol 200/25 BLST.W.DEV 1 PUFF INHALE (07:37)
[2024-09-27 07:41] LABS: Glucose, Whole Blood 123 mg/dL (60-115)
[2024-09-27] MEDS: 0.9 % Sodium Chloride Flush 3 ML SYRINGE IVFLUSH ×3 (08:38→20:37)
[2024-09-27] MEDS: predniSONE 20 MG TABLET 60 MG PO (08:38)
[2024-09-27] MEDS: Bumetanide 1 MG TABLET PO (08:39)
[2024-09-27] MEDS: metFORMIN HCl 1,000 MG TABLET 1000 MG PO ×2 (08:39→20:36)
[2024-09-27] MEDS: Metoprolol Tartrate 25 MG TABLET PO ×2 (08:40→20:35)
[2024-09-27] MEDS: Doxycycline Monohydrate 100 MG CAPSULE PO ×2 (08:40→20:36)
[2024-09-27] MEDS: Escitalopram Oxalate 20 MG TABLET PO (08:40)
[2024-09-27] MEDS: Sennosides 8.6 MG TABLET PO ×2 (08:40→20:35)
[2024-09-27 11:33] LABS: Glucose, Whole Blood 208 mg/dL (60-115)
--- NOTE | 2024-09-27 11:44 | HO.PM.IMPN ---
Subjective Subjective Date of Service: 09/27/24 Interval History: Seen in follow up for respiratory failure in setting of copd exacerbation Interval history: +edema. Reports sob/roberts, wheezing, cough baseline. On baseline O2. No chest pain. Diuresis slowing. Reports mild diffuse abdominal pain like a bloating sensation. +constipation Review of Systems Review of Systems: Yes all other systems are reviewed and are negative Physical Exam Vital Signs: Vital Signs: Last Vital Signs Temp 97.3 F 09/27/24 08:00 Pulse 73 09/27/24 11:08 Resp 18 09/27/24 11:08 BP 133/65 09/27/24 08:40 Pulse Ox 100 09/27/24 08:00 O2 Del Method Nasal Cannula 09/27/24 08:00 O2 Flow Rate 3 09/27/24 08:00 Oxygen Flow Rate 3 09/24/24 02:00 BMI result Body Mass Index 33.3 Constitutional - Awake and Alert, No apparent distress Eyes - PERRLA, EOMI Cardiovascular - S1S2, RRR, 2+ ble edema Respiratory - Normal lung expansion, Normal respiratory effort, No respiratory distress, scattered wheezes bilaterally Gastrointestinal - nontender but distended; +BS; No rebound or guarding Extremities - no calf tenderness bilaterally, no swelling Skin - Warm/Dry Neurological - Alert & oriented x3, moving extremities Psychological - Appropriate affect Objective Data Active Medications Acetaminophen (Acetaminophen 325 Mg Tablet) 975 mg PO Q6H PRN PRN Reason: Pain, Mild 1-3,fever,headache Atorvastatin Calcium (Atorvastatin Calcium 80 Mg Tablet) 80 mg PO BEDTIME [facility] Last Admin: 09/26/24 21:16 Dose: 80 mg Documented By: JANICE Bisacodyl (Bisacodyl 5 Mg Tablet.Dr) 10 mg PO DAILY PRN PRN Reason: Constipation Last Admin: 09/26/24 21:24 Dose: 10 mg Documented By: JANICE Comments: pt reports feeling constipated. Bumetanide (Bumetanide 1 Mg Tablet) 1 mg PO DAILY [facility]; Protocol Last Admin: 09/27/24 08:39 Dose: 1 mg Documented By: ALEXIA Calcium Carbonate (Calcium Carbonate 750 Mg Tab.Chew) 750 mg PO Q4H PRN PRN Reason: Heartburn Levalbuterol HCl 2.5 mg/ (Ipratropium [place] 0.5 mg) 0 mg INHALE RQ4H WHILE AWAKE [facility] Last Admin: 09/27/24 11:05 Dose: 6 dose Documented By: ROLY Dextrose (Dextrose 50 % 25 Gm/50 Ml Syringe) 25 gm IVPUSH Q15M PRN; Protocol PRN Reason: per Hypoglycemia Standing Ord. Doxycycline Monohydrate (Doxycycline Monohydrate 100 Mg Capsule) 100 mg PO Q12H [facility] Last Admin: 09/27/24 08:40 Dose: 100 mg Documented By: ALEXIA Enoxaparin Sodium (Enoxaparin Sodium 40 Mg/0.4 Ml Syringe) 40 mg SUBCUT Q24H [facility] Last Admin: 09/27/24 05:56 Dose: Not Given Documented By: WESLEY Non-Admin Reason: Patient Refused Escitalopram Oxalate (Escitalopram Oxalate 20 Mg Tablet) 20 mg PO DAILY [facility] Last Admin: 09/27/24 08:40 Dose: 20 mg Documented By: ALEXIA Fluticasone/Vilanterol (Fluticasone/Vilanterol 200/25 Blst.W.Dev) 1 puff INHALE RDAILY [facility] Last Admin: 09/27/24 07:37 Dose: 1 puff Documented By: ROLY Glucose (Glucose Gel 15 Gm Gel..Gram.) 15 gm PO Q15M PRN; Protocol PRN Reason: per Hypoglycemia Standing Ord. Insulin Human Lispro (Insulin Lispro 100 Unit/Ml 3 Ml Vial) 0 unit SUBCUT QIDACHS [facility]; Protocol Last Admin: 09/27/24 07:44 Dose: Not Given Documented By: ALEXIA Non-Admin Reason: No Insulin Coverage Lactulose (Lactulose 20 Gm/30 Ml Solution) 10 gm PO DAILY PRN PRN Reason: Constipation Last Admin: 09/27/24 05:56 Dose: 10 gm Documented By: WESLEY Lorazepam (Lorazepam 1 Mg Tablet) 1 mg PO BID PRN PRN Reason: Anxiety Last Admin: 09/26/24 17:25 Dose: 1 mg Documented By: ALEXIA Magnesium Hydroxide (Milk Of Magnesia 30 Ml Oral.Susp) 30 ml PO DAILY PRN PRN Reason: Constipation Melatonin (Melatonin 3 Mg Tablet) 6 mg PO BEDTIME PRN PRN Reason: Insomnia Last Admin: 09/26/24 21:24 Dose: 6 mg Documented By: JANICE Comments: requested for sleep Metformin HCl (Metformin Hcl 1,000 Mg Tablet) 1,000 mg PO BID [facility] Last Admin: 09/27/24 08:39 Dose: 1,000 mg Documented By: ALEXIA Metoprolol Tartrate (Metoprolol Tartrate 25 Mg Tablet) 25 mg PO BID [facility]; Protocol Last Admin: 09/27/24 08:40 Dose: 25 mg Documented By: ALEXIA Omeprazole (Omeprazole 20 Mg Capsule.Dr) 20 mg PO DAILY@06 [facility] Last Admin: 09/27/24 05:55 Dose: 20 mg Documented By: WESLEY Ondansetron HCl (Ondansetron Hcl 4 Mg/2 Ml Vial) 4 mg IVPUSH Q8H PRN PRN Reason: Nausea and Vomiting Oxycodone HCl (Oxycodone Hcl Immed Release 5 Mg Tablet) 5 mg PO Q6H PRN PRN Reason: Pain, Moderate(Pain Scale 4-6) Polyethylene Glycol (Polyethylene Glycol 3350 17 Gm Powd.Pack) 17 gm PO DAILY PRN PRN Reason: Constipation Prednisone (Prednisone 20 Mg Tablet) 60 mg PO DAILY [facility] Last Admin: 09/27/24 08:38 Dose: 60 mg Documented By: ALEXIA Senna (Sennosides 8.6 Mg Tablet) 8.6 mg PO BID [facility] Last Admin: 09/27/24 08:40 Dose: 8.6 mg Documented By: ALEXIA Sodium Chloride (0.9 % Sodium Chloride Flush 3 Ml Syringe) 3 ml IVFLUSH QSHIFT [facility] Last Admin: 09/27/24 08:38 Dose: 3 ml Documented By: ALEXIA Labs 09/27/24 05:28 09/27/24 05:28 Labs: Laboratory Results - last 24 hr 09/26/24 09/26/24 09/27/24 15:48 19:43 05:28 MCV 89.6 MCH 27.7 MCHC 31.0 RDW 14.4 Plt Count 195 MPV 10.2 Immature Gran % (Auto) 0.6 H Neut % (Auto) 66.5 Lymph % (Auto) 19.[address] [place] % (Auto) 12.6 H Eos % (Auto) 0.3 Baso % (Auto) 0.1 Lymph # (Auto) 1.4 [place] # (Auto) 0.9 Eos # (Auto) 0.0 Baso # (Auto) 0.0 Abs Immat Gran (auto) 0.04 H Absolute Neuts (auto) 4.8 Absolute Nucleated RBC 0.000 Nucleated RBC % (auto) 0.0 Anion Gap 15 Estim Creat Clear Calc 79.3 Estimated GFR > 60 POC Glucose 205 H 291 H Random Glucose 106 Calcium 9.2 09/27/24 09/27/24 07:10 11:09 MCV MCH MCHC RDW Plt Count MPV Immature Gran % (Auto) Neut % (Auto) Lymph % (Auto) [place] % (Auto) Eos % (Auto) Baso % (Auto) Lymph # (Auto) [place] # (Auto) Eos # (Auto) Baso # (Auto) Abs Immat Gran (auto) Absolute Neuts (auto) Absolute Nucleated RBC Nucleated RBC % (auto) Anion Gap Estim Creat Clear Calc Estimated GFR POC Glucose 123 H 208 H Random Glucose Calcium Assessment and Plan (1) Class 2 obesity: Status: Acute (2) Chronic anemia: Status: Acute (3) Acute exacerbation of chronic obstructive pulmonary disease: Status: Acute (4) Chronic lung disease: Status: Acute Plan Patient is a 74-year-old male with a past medical history significant for history lung cancer (diagnosed 10-15 years ago s/p chemo and radiation), chronic respiratory failure with hypercapnia, CAD, T2DM, chronic constipation, severe COPD, HLD, GERD, HTN, 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 Acute on chronic respiratory failure with hypoxia and hypercapnia secondary to acute exacerbation of COPD improving CXR showing left apical pleural thickening with adjacent scarring and traction bronchiectasis, similar to prior exams. -ve d- dimer and procalcitonin Solu-Medrol IV bid- changed to po 6/21 evalbuterol/ipratropium RQ4H while awake Continue doxycycline b.i.d. for bronchitis, changed to PO 6/21 titrate oxygen as needed to 3L baseline HFpEF could be related to right sided heart failure (no evidence of liver cirrhosis in prev images) normal BNP of 25 Echo shows normal LV systolic function with EF 60-65%, no regional wall motion abnormalities. There is abnormal diastolic function noted. Mild aortic valve stenosis, otherwise no valvular abnormality Continue IV bumex 0.5mg daily. changed to PO 09/27 giving diuresis slowing monitor I\O and BMP Abd distension Etiology unclear-evaluate CT abdomen/pelvis Bowel regimen. Enema p.r.n. Likely contributing to dyspnea Chronic anemia hemoglobin at baseline, 10.5, hematocrit 33.7 monitor CBC T2DM diabetic diet SSI and Metformin CAD/HLD statin Chronic constipation MiraLax and senna HTN continue home meds Class 2 obesity BMI 34.6 weight loss encouraged Full code VTE prophylaxis: Lovenox Patient with acute on chronic respiratory failure with hypoxia and hypercapnia secondary to sepsis and acute COPD exacerbation, requiring overnight stay for IV steroids, IV Bumex, breathing treatments and antibiotics. Quality Stroke Does the patient have a stroke diagnosis?: No VTE Prior VTE?: No VTE Risk Level:: Medical - moderate - high VTE Device Contraindication: Treatment Not Indicated VTE Drug Contraindication: N/A - Med Ordered
[2024-09-27] MEDS: Insulin Lispro 100 UNIT/ML 3 ML VIAL SUBCUT ×3 (11:57→20:36)
[2024-09-27] MEDS: LORazepam 1 MG TABLET PO (13:52)
[2024-09-27 16:32] LABS: Glucose, Whole Blood 265 mg/dL (60-115)
[2024-09-27] MEDS: Sodium Phosphate,Mono-Dibasic 133 ML ENEMA PR (17:47)
[2024-09-27 20:20] LABS: Glucose, Whole Blood 309 mg/dL (60-115)
[2024-09-27] MEDS: Atorvastatin Calcium 80 MG TABLET PO (20:35)
[2024-09-27] MEDS: Melatonin 3 MG TABLET 6 MG PO (20:40)
[2024-09-28] VITALS (13 sets, daily range): BP systolic 108–134; BP diastolic 54–69; PULSE 73–107; RESP 16–20; TEMP 36.2–37; O2SAT 92–98; BMI 33.4
[2024-09-28] MEDS: Omeprazole 20 MG CAPSULE.DR PO (05:33)
[2024-09-28 07:15] LABS: Glucose, Whole Blood 148 mg/dL (60-115)
[2024-09-28 07:21] LABS: MANUAL DIFF FLAG NO
[2024-09-28 07:30] LABS: Basophils Percent Auto 0.2 % (0-2); Eosinophils Percent Auto 0.6 % (0-4); Hemoglobin 11.2 g/dl (14.0-18.0); Imm Gran Abs Auto 0.04 X10*3/uL (0.00-0.03); Imm Gran Pct Auto 0.6 % (0.0-0.4); Lymphocytes Absolute Auto 1.4 X10*3/uL (1.2-4.9); Lymphocytes Percent Auto 20.9 % (20-40); Mean Corpuscular HGB Conc 31.1 g/dl (31.0-36.0); Mean Corpuscular Hemoglobin 27.9 pg (27.0-33.0); Mean Corpuscular Volume 89.8 fL (80.0-98.0); Mean Platelet Volume 10.4 fL (9.4-12.4); Monocytes Absolute Auto 0.8 X10*3/uL (0.1-1.2); Monocytes Percent Auto 11.8 % (2-11); Neutrophils Absolute Auto 4.4 x10*3/uL (2.0-8.3); Neutrophils Percent Auto 65.9 % (45-73); Platelet Count 208 X10*3/uL (160-400); Red Blood Count 4.01 X10*6/uL (4.60-5.80); Red Cell Distribution Width 14.5 % (11.0-16.0); White Blood Count 6.6 X10*3/uL (4.8-10.8)
[2024-09-28 07:51] LABS: Anion Gap 15 (12-20); Blood Urea Nitrogen 23 mg/dL (9-16); Calcium 10.1 mg/dL (8.4-10.2); Carbon Dioxide 44 mmol/L (22-29); Chloride 85 mmol/L (96-108); Creatinine Clr Calc Pharmacy 73.1; Estimated Glomerular Filt Rate > 60; Glucose Random 142 mg/dL (60-115); Potassium 3.8 mmol/L (3.3-5.1); Sodium 140 mmol/L (135-145)
[2024-09-28] MEDS: levalbuterol HCL 2.5 MG, Ipratropium Bromide 0.5 MG INHALE ×4 (08:16→19:30)
[2024-09-28] MEDS: Fluticasone/Vilanterol 200/25 BLST.W.DEV 1 PUFF INHALE (08:16)
[2024-09-28] MEDS: Metoprolol Tartrate 25 MG TABLET PO ×2 (08:45→19:49)
[2024-09-28] MEDS: Sennosides 8.6 MG TABLET PO ×2 (08:45→19:49)
[2024-09-28] MEDS: Escitalopram Oxalate 20 MG TABLET PO (08:46)
[2024-09-28] MEDS: 0.9 % Sodium Chloride Flush 3 ML SYRINGE IVFLUSH ×3 (08:47→19:54)
[2024-09-28] MEDS: Doxycycline Monohydrate 100 MG CAPSULE PO ×2 (08:47→19:49)
[2024-09-28] MEDS: predniSONE 20 MG TABLET 60 MG PO (08:47)
[2024-09-28] MEDS: metFORMIN HCl 1,000 MG TABLET 1000 MG PO ×2 (08:47→19:49)
[2024-09-28] MEDS: Bumetanide 1 MG TABLET PO (08:47)
[2024-09-28] MEDS: Milk of Magnesia 30 ML ORAL.SUSP PO (08:48)
[2024-09-28 11:10] LABS: Glucose, Whole Blood 246 mg/dL (60-115)
[2024-09-28] MEDS: LORazepam 1 MG TABLET PO ×2 (11:22→23:25)
[2024-09-28] MEDS: Insulin Lispro 100 UNIT/ML 3 ML VIAL SUBCUT ×3 (11:53→19:49)
[2024-09-28] MEDS: Magnesium Citrate 300 ML SOLUTION PO (14:27)
--- NOTE | 2024-09-28 15:53 | HO.PM.IMPN ---
Subjective Subjective Date of Service: 09/28/24 Interval History: Follow-up acute on chronic respiratory failure in the setting of COPD exacerbation and bronchitis Still with 1+ pitting edema. Reports shortness of breath and dyspnea on exertion. No wheezing. Cough at baseline and on baseline O2. Denies chest pain, nausea or vomiting. Still reporting diffuse abdominal pain with bloating and constipation. He feels his severe abdominal bleeding is causing his respiratory issues due to increased pressure in the abdomen. Review of Systems Review of Systems: Yes all other systems are reviewed and are negative Physical Exam Vital Signs: Vital Signs: Last Vital Signs Temp 97.9 F 09/28/24 15:28 Pulse 94 09/28/24 15:28 Resp 18 09/28/24 15:28 BP 117/61 09/28/24 15:28 Pulse Ox 96 09/28/24 15:28 O2 Del Method Nasal Cannula 09/28/24 15:28 O2 Flow Rate 3.5 09/28/24 15:28 Oxygen Flow Rate 3 09/24/24 02:00 BMI result Body Mass Index 33.4 General: AOx3, no acute distress Resp: Diminished throughout, no crackles or wheezing CVS: S1, S2, RRR 1+pitting edema GI: Hypoactive, NT, distended Skin: Warm, dry Neuro: Cranial nerves II-XII grossly intact bilaterally. Motor grossly intact bilaterally Extremities: 1+ pitting edema Psych: Appropriate affect Objective Data Active Medications Acetaminophen (Acetaminophen 325 Mg Tablet) 975 mg PO Q6H PRN PRN Reason: Pain, Mild 1-3,fever,headache Atorvastatin Calcium (Atorvastatin Calcium 80 Mg Tablet) 80 mg PO BEDTIME [facility] Last Admin: 09/27/24 20:35 Dose: 80 mg Documented By: TITI Bisacodyl (Bisacodyl 5 Mg Tablet.Dr) 10 mg PO DAILY PRN PRN Reason: Constipation Last Admin: 09/26/24 21:24 Dose: 10 mg Documented By: JANICE Comments: pt reports feeling constipated. Bumetanide (Bumetanide 1 Mg Tablet) 1 mg PO DAILY [facility]; Protocol Last Admin: 09/28/24 08:47 Dose: 1 mg Documented By: BROShashank Calcium Carbonate (Calcium Carbonate 750 Mg Tab.Chew) 750 mg PO Q4H PRN PRN Reason: Heartburn Levalbuterol HCl 2.5 mg/ (Ipratropium [place] 0.5 mg) 0 mg INHALE RQ4H WHILE AWAKE [facility] Last Admin: 09/28/24 11:30 Dose: 2 dose Documented By: KASHMIR Dextrose (Dextrose 50 % 25 Gm/50 Ml Syringe) 25 gm IVPUSH Q15M PRN; Protocol PRN Reason: per Hypoglycemia Standing Ord. Doxycycline Monohydrate (Doxycycline Monohydrate 100 Mg Capsule) 100 mg PO Q12H [facility] Last Admin: 09/28/24 08:47 Dose: 100 mg Documented By: ALEXIA Enoxaparin Sodium (Enoxaparin Sodium 40 Mg/0.4 Ml Syringe) 40 mg SUBCUT Q24H [facility] Last Admin: 09/28/24 05:34 Dose: Not Given Documented By: TITI Non-Admin Reason: Patient Refused Escitalopram Oxalate (Escitalopram Oxalate 20 Mg Tablet) 20 mg PO DAILY [facility] Last Admin: 09/28/24 08:46 Dose: 20 mg Documented By: ALEXIA Fluticasone/Vilanterol (Fluticasone/Vilanterol 200/25 Blst.W.Dev) 1 puff INHALE RDAILY [facility] Last Admin: 09/28/24 08:16 Dose: 1 puff Documented By: KASHMIR Glucose (Glucose Gel 15 Gm Gel..Gram.) 15 gm PO Q15M PRN; Protocol PRN Reason: per Hypoglycemia Standing Ord. Insulin Human Lispro (Insulin Lispro 100 Unit/Ml 3 Ml Vial) 0 unit SUBCUT QIDACHS [facility]; Protocol Last Admin: 09/28/24 11:53 Dose: 4 unit Documented By: ALEXIA Lactulose (Lactulose 20 Gm/30 Ml Solution) 10 gm PO DAILY PRN PRN Reason: Constipation Last Admin: 09/27/24 05:56 Dose: 10 gm Documented By: NATHANIEL-DESNICOLE Lorazepam (Lorazepam 1 Mg Tablet) 1 mg PO BID PRN PRN Reason: Anxiety Last Admin: 09/28/24 11:22 Dose: 1 mg Documented By: ALEXIA Magnesium Hydroxide (Milk Of Magnesia 30 Ml Oral.Susp) 30 ml PO DAILY PRN PRN Reason: Constipation Last Admin: 09/28/24 08:48 Dose: 30 ml Documented By: ALEXIA Melatonin (Melatonin 3 Mg Tablet) 6 mg PO BEDTIME PRN PRN Reason: Insomnia Last Admin: 09/27/24 20:40 Dose: 6 mg Documented By: TITI Metformin HCl (Metformin Hcl 1,000 Mg Tablet) 1,000 mg PO BID [facility] Last Admin: 09/28/24 08:47 Dose: 1,000 mg Documented By: ALEXIA Metoprolol Tartrate (Metoprolol Tartrate 25 Mg Tablet) 25 mg PO BID [facility]; Protocol Last Admin: 09/28/24 08:45 Dose: 25 mg Documented By: ALEXIA Omeprazole (Omeprazole 20 Mg Capsule.Dr) 20 mg PO DAILY@0630 [facility] Last Admin: 09/28/24 05:33 Dose: 20 mg Documented By: TITI Ondansetron HCl (Ondansetron Hcl 4 Mg/2 Ml Vial) 4 mg IVPUSH Q8H PRN PRN Reason: Nausea and Vomiting Oxycodone HCl (Oxycodone Hcl Immed Release 5 Mg Tablet) 5 mg PO Q6H PRN PRN Reason: Pain, Moderate(Pain Scale 4-6) Polyethylene Glycol (Polyethylene Glycol 3350 17 Gm Powd.Pack) 17 gm PO DAILY PRN PRN Reason: Constipation Prednisone (Prednisone 20 Mg Tablet) 60 mg PO DAILY [facility] Last Admin: 09/28/24 08:47 Dose: 60 mg Documented By: ALEXIA Senna (Sennosides 8.6 Mg Tablet) 8.6 mg PO BID [facility] Last Admin: 09/28/24 08:45 Dose: 8.6 mg Documented By: ALEXIA Sodium Biphosphate/Sodium Phosphate (Sodium Phosphate,[place]-Dibasic 133 Ml Enema) 133 ml [place] ONCE PRN PRN Reason: Constipation Last Admin: 09/27/24 17:47 Dose: 133 ml Documented By: ALEXIA Sodium Chloride (0.9 % Sodium Chloride Flush 3 Ml Syringe) 3 ml IVFLUSH QSHIFT [facility] Last Admin: 09/28/24 08:47 Dose: 3 ml Documented By: ALEXIA Labs 09/28/24 06:50 09/28/24 06:50 Labs: Laboratory Results - last 24 hr 09/27/24 09/27/24 09/28/24 16:12 19:52 06:50 MCV 89.8 MCH 27.9 MCHC 31.1 RDW 14.5 Plt Count 208 MPV 10.4 Immature Gran % (Auto) 0.6 H Neut % (Auto) 65.9 Lymph % (Auto) 20.9 [place] % (Auto) 11.8 H Eos % (Auto) 0.6 Baso % (Auto) 0.2 Lymph # (Auto) 1.4 [place] # (Auto) 0.8 Eos # (Auto) 0.0 Baso # (Auto) 0.0 Abs Immat Gran (auto) 0.04 H Absolute Neuts (auto) 4.4 Absolute Nucleated RBC 0.000 Nucleated RBC % (auto) 0.0 Anion Gap 15 Estim Creat Clear Calc 73.1 Estimated GFR > 60 POC Glucose 265 H 309 H Random Glucose 142 H Calcium 10.1 D 09/28/24 09/28/24 07:01 11:03 MCV MCH MCHC RDW Plt Count MPV Immature Gran % (Auto) Neut % (Auto) Lymph % (Auto) [place] % (Auto) Eos % (Auto) Baso % (Auto) Lymph # (Auto) [place] # (Auto) Eos # (Auto) Baso # (Auto) Abs Immat Gran (auto) Absolute Neuts (auto) Absolute Nucleated RBC Nucleated RBC % (auto) Anion Gap Estim Creat Clear Calc Estimated GFR POC Glucose 148 H 246 H Random Glucose Calcium Assessment and Plan (1) Acute on chronic respiratory failure with hypoxia and hypercapnia: Status: Acute (2) Acute exacerbation of chronic obstructive pulmonary disease: Status: Acute (3) Constipation: Status: Acute (4) Abnormal CT of the abdomen: Status: Acute Plan Patient is a 74-year-old male with a past medical history significant for history lung cancer (diagnosed 10-15 years ago s/p chemo and radiation), chronic respiratory failure with hypercapnia, CAD, T2DM, chronic constipation, severe COPD, HLD, GERD, HTN, 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 Acute on chronic respiratory failure with hypoxia and hypercapnia secondary to acute exacerbation of COPD - improving, feels almost back at baseline CXR showing left apical pleural thickening with adjacent scarring and traction bronchiectasis, similar to prior exams. -ve d- dimer and procalcitonin Solu-Medrol IV bid- changed to po 09/26 levalbuterol/ipratropium RQ4H while awake Continue doxycycline b.i.d. for bronchitis, changed to PO 09/26 titrate oxygen as needed to 3L baseline HFpEF could be related to right sided heart failure (no evidence of liver cirrhosis in prev images) normal BNP of 25 Echo shows normal LV systolic function with EF 60-65%, no regional wall motion abnormalities. There is abnormal diastolic function noted. Mild aortic valve stenosis, otherwise no valvular abnormality Continue IV bumex 0.5mg daily. changed to PO 09/27 giving diuresis slowing monitor I\O and BMP Abd distension Abdominopelvic CT with large colonic stool burden extending to the proximal sigmoid colon. Abrupt transition in the caliber of the large bowel in the mid sigmoid colon, similar to prior imaging and suspicious for focal stricturing within underlying colonic mass not excluded. Bowel regimen. Enema p.r.n. magnesium citrate per patient request Likely contributing to dyspnea GI consult Chronic anemia hemoglobin at baseline monitor CBC T2DM diabetic diet SSI and Metformin CAD/HLD statin Chronic constipation MiraLax and senna HTN continue home meds Class 2 obesity BMI 34.6 weight loss encouraged Full code VTE prophylaxis: Lovenox Patient with acute on chronic respiratory failure with hypoxia and hypercapnia secondary to sepsis and acute COPD exacerbation, requiring continued admission for gastroenterology consultation and monitoring Quality Stroke Does the patient have a stroke diagnosis?: No VTE Prior VTE?: No VTE Risk Level:: Medical - moderate - high VTE Device Contraindication: Treatment Not Indicated VTE Drug Contraindication: N/A - Med Ordered
[2024-09-28 16:36] LABS: Glucose, Whole Blood 306 mg/dL (60-115)
[2024-09-28 19:34] LABS: Glucose, Whole Blood 360 mg/dL (60-115)
[2024-09-28] MEDS: Atorvastatin Calcium 80 MG TABLET PO (19:49)
[2024-09-28] MEDS: bisacodyL 5 MG TABLET.DR 10 MG PO (19:49)
[2024-09-28] MEDS: Melatonin 3 MG TABLET 6 MG PO (23:25)
[2024-09-29] VITALS (12 sets, daily range): BP systolic 96–126; BP diastolic 55–68; PULSE 70–88; RESP 16–20; TEMP 36.2–37.1; O2SAT 90–98; BMI 34.1
[2024-09-29] MEDS: Omeprazole 20 MG CAPSULE.DR PO (05:45)
[2024-09-29] MEDS: Fluticasone/Vilanterol 200/25 BLST.W.DEV 1 PUFF INHALE (07:37)
[2024-09-29] MEDS: levalbuterol HCL 2.5 MG, Ipratropium Bromide 0.5 MG INHALE ×4 (07:37→19:59)
[2024-09-29 07:40] LABS: Glucose, Whole Blood 158 mg/dL (60-115)
[2024-09-29] MEDS: Lactulose 20 GM/30 ML SOLUTION 10 GM PO (07:53)
[2024-09-29] MEDS: Insulin Lispro 100 UNIT/ML 3 ML VIAL SUBCUT ×4 (07:53→20:12)
[2024-09-29] MEDS: metFORMIN HCl 1,000 MG TABLET 1000 MG PO ×2 (07:54→20:12)
[2024-09-29] MEDS: predniSONE 20 MG TABLET 60 MG PO (07:54)
[2024-09-29] MEDS: Sennosides 8.6 MG TABLET PO ×2 (07:54→20:12)
[2024-09-29] MEDS: Bumetanide 1 MG TABLET PO (07:55)
[2024-09-29] MEDS: Doxycycline Monohydrate 100 MG CAPSULE PO ×2 (07:55→20:12)
[2024-09-29] MEDS: Escitalopram Oxalate 20 MG TABLET PO (07:56)
[2024-09-29] MEDS: Metoprolol Tartrate 25 MG TABLET PO ×2 (07:56→20:12)
[2024-09-29] MEDS: 0.9 % Sodium Chloride Flush 3 ML SYRINGE IVFLUSH ×3 (07:57→20:16)
[2024-09-29 11:41] LABS: Glucose, Whole Blood 239 mg/dL (60-115)
--- NOTE | 2024-09-29 14:02 | P.PNIM_ITS ---
Subjective Subjective Date of Service: 09/29/24 Interval History: Follow-up on acute on chronic respiratory failure in the setting of COPD exacerbation and bronchitis Pitting edema improved, trace Feeling at baseline regarding pulmonary status Was able to have a bowel movement last night but still feeling bloated and uncomfortable Review of Systems Review of Systems: Yes all other systems are reviewed and are negative Physical Exam 2 Vital Signs: Vital Signs: Last Vital Signs Temp 97.6 F 09/29/24 08:00 Pulse 86 09/29/24 11:10 Resp 18 09/29/24 11:10 BP 115/68 09/29/24 08:00 Pulse Ox 96 09/29/24 08:00 O2 Del Method Nasal Cannula 09/29/24 08:00 O2 Flow Rate 3.5 09/29/24 08:00 Oxygen Flow Rate 3 09/24/24 02:00 BMI result Body Mass Index 34.1 General: AOx3, no acute distress Resp: CTA bilaterally, no wheezing or crackles CVS: S1, S2, RRR GI: hypoactive BS, NT, still distended Skin: Warm, dry Neuro: Cranial nerves II-XII grossly intact bilaterally. Motor grossly intact bilaterally Extremities: Trace pitting edema Psych: Appropriate affect Objective Data Active Medications Acetaminophen (Acetaminophen 325 Mg Tablet) 975 mg PO Q6H PRN PRN Reason: Pain, Mild 1-3,fever,headache Atorvastatin Calcium (Atorvastatin Calcium 80 Mg Tablet) 80 mg PO BEDTIME [facility] Last Admin: 09/28/24 19:49 Dose: 80 mg Documented By: TITI Bisacodyl (Bisacodyl 5 Mg Tablet.) 10 mg PO DAILY PRN PRN Reason: Constipation Last Admin: 09/28/24 19:49 Dose: 10 mg Documented By: TITI Bumetanide (Bumetanide 1 Mg Tablet) 1 mg PO DAILY [facility]; Protocol Last Admin: 09/29/24 07:55 Dose: 1 mg Documented By: BROShashank Calcium Carbonate (Calcium Carbonate 750 Mg Tab.Chew) 750 mg PO Q4H PRN PRN Reason: Heartburn Levalbuterol HCl 2.5 mg/ (Ipratropium [place] 0.5 mg) 0 mg INHALE RQ4H WHILE AWAKE [facility] Last Admin: 09/29/24 11:08 Dose: 6 dose Documented By: ROLY Dextrose (Dextrose 50 % 25 Gm/50 Ml Syringe) 25 gm IVPUSH Q15M PRN; Protocol PRN Reason: per Hypoglycemia Standing Ord. Doxycycline Monohydrate (Doxycycline Monohydrate 100 Mg Capsule) 100 mg PO Q12H [facility] Last Admin: 09/29/24 07:55 Dose: 100 mg Documented By: ALEXIA Enoxaparin Sodium (Enoxaparin Sodium 40 Mg/0.4 Ml Syringe) 40 mg SUBCUT Q24H [facility] Last Admin: 09/29/24 05:44 Dose: Not Given Documented By: TITI Non-Admin Reason: Patient Refused Escitalopram Oxalate (Escitalopram Oxalate 20 Mg Tablet) 20 mg PO DAILY [facility] Last Admin: 09/29/24 07:56 Dose: 20 mg Documented By: ALEXIA Fluticasone/Vilanterol (Fluticasone/Vilanterol 200/25 Blst.W.Dev) 1 puff INHALE RDAILY [facility] Last Admin: 09/29/24 07:37 Dose: 1 puff Documented By: ROLY Glucose (Glucose Gel 15 Gm Gel..Gram.) 15 gm PO Q15M PRN; Protocol PRN Reason: per Hypoglycemia Standing Ord. Insulin Human Lispro (Insulin Lispro 100 Unit/Ml 3 Ml Vial) 0 unit SUBCUT QIDACHS [facility]; Protocol Last Admin: 09/29/24 11:54 Dose: 6 unit Documented By: ALEXIA Lactulose (Lactulose 20 Gm/30 Ml Solution) 10 gm PO DAILY PRN PRN Reason: Constipation Last Admin: 09/29/24 07:53 Dose: 10 gm Documented By: ALEXIA Magnesium Hydroxide (Milk Of Magnesia 30 Ml Oral.Susp) 30 ml PO DAILY PRN PRN Reason: Constipation Last Admin: 09/28/24 08:48 Dose: 30 ml Documented By: ALEXIA Melatonin (Melatonin 3 Mg Tablet) 6 mg PO BEDTIME PRN PRN Reason: Insomnia Last Admin: 09/28/24 23:25 Dose: 6 mg Documented By: TITI Metformin HCl (Metformin Hcl 1,000 Mg Tablet) 1,000 mg PO BID [facility] Last Admin: 09/29/24 07:54 Dose: 1,000 mg Documented By: ALEXIA Metoprolol Tartrate (Metoprolol Tartrate 25 Mg Tablet) 25 mg PO BID [facility]; Protocol Last Admin: 09/29/24 07:56 Dose: 25 mg Documented By: ALEXIA Omeprazole (Omeprazole 20 Mg Capsule.) 20 mg PO DAILY@0630 [facility] Last Admin: 09/29/24 05:45 Dose: 20 mg Documented By: TITI Ondansetron HCl (Ondansetron Hcl 4 Mg/2 Ml Vial) 4 mg IVPUSH Q8H PRN PRN Reason: Nausea and Vomiting Oxycodone HCl (Oxycodone Hcl Immed Release 5 Mg Tablet) 5 mg PO Q6H PRN PRN Reason: Pain, Moderate(Pain Scale 4-6) Polyethylene Glycol (Polyethylene Glycol 3350 17 Gm Powd.Pack) 17 gm PO DAILY PRN PRN Reason: Constipation Prednisone (Prednisone 20 Mg Tablet) 60 mg PO DAILY [facility] Last Admin: 09/29/24 07:54 Dose: 60 mg Documented By: ALEXIA Senna (Sennosides 8.6 Mg Tablet) 8.6 mg PO BID [facility] Last Admin: 09/29/24 07:54 Dose: 8.6 mg Documented By: ALEXIA Sodium Biphosphate/Sodium Phosphate (Sodium Phosphate,[place]-Dibasic 133 Ml Enema) 133 ml [place] ONCE PRN PRN Reason: Constipation Last Admin: 09/27/24 17:47 Dose: 133 ml Documented By: ALEXIA Sodium Chloride (0.9 % Sodium Chloride Flush 3 Ml Syringe) 3 ml IVFLUSH QSHIFT [facility] Last Admin: 09/29/24 07:57 Dose: 3 ml Documented By: ALEXIA Labs 09/28/24 06:50 09/28/24 06:50 Labs: Laboratory Results - last 24 hr 09/28/24 09/28/24 09/29/24 16:32 19:29 07:33 POC Glucose 306 H 360 H* 158 H 09/29/24 11:25 POC Glucose 239 H Microbiology Microbiology Results: Microbiology 09/24/24 02:44 Blood Culture - Final Blood - Venous No growth after 5 days. 09/24/24 02:46 Blood Culture - Final Blood - Venous No growth after 5 days. 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 Acute on chronic respiratory failure with hypoxia and hypercapnia secondary to acute exacerbation of COPD - improving, feels almost back at baseline CXR showing left apical pleural thickening with adjacent scarring and traction bronchiectasis, similar to prior exams. -ve d- dimer and procalcitonin Solu-Medrol IV bid- changed to po 09/26, finished 5 day course levalbuterol/ipratropium RQ4H while awake Continue doxycycline b.i.d. for bronchitis, changed to PO 09/26 titrate oxygen as needed to 3L baseline HFpEF could be related to right sided heart failure (no evidence of liver cirrhosis in prev images) normal BNP of 25 Echo shows normal LV systolic function with EF 60-65%, no regional wall motion abnormalities. There is abnormal diastolic function noted. Mild aortic valve stenosis, otherwise no valvular abnormality Continue IV bumex 0.5mg daily. changed to PO 09/27 giving diuresis slowing monitor I\O and BMP Abd distension Abdominopelvic CT with large colonic stool burden extending to the proximal sigmoid colon. Abrupt transition in the caliber of the large bowel in the mid sigmoid colon, similar to prior imaging and suspicious for focal stricturing within underlying colonic mass not excluded. Bowel regimen Likely contributing to dyspnea Spoke with GI who recommended Ct findings are chronic, no malignancy, continue bowel regimen and try gastrograffin enema Chronic anemia hemoglobin at baseline T2DM diabetic diet SSI and Metformin CAD/HLD statin Chronic constipation MiraLax and senna HTN continue home meds Class 2 obesity BMI 34.6 weight loss encouraged Full code VTE prophylaxis: Lovenox Patient with acute on chronic respiratory failure with hypoxia and hypercapnia secondary to sepsis and acute COPD exacerbation, requiring continued admission for gastroenterology consultation and monitoring Quality Stroke Does the patient have a stroke diagnosis?: No VTE Prior VTE?: No VTE Risk Level:: Medical - moderate - high VTE Device Contraindication: Treatment Not Indicated VTE Drug Contraindication: N/A - Med Ordered
[2024-09-29] MEDS: LORazepam 1 MG TABLET PO (14:54)
[2024-09-29] MEDS: Mineral OiL enema 133 ML ENEMA PR (16:17)
[2024-09-29 16:30] LABS: Glucose, Whole Blood 285 mg/dL (60-115)
[2024-09-29 19:56] LABS: Glucose, Whole Blood 282 mg/dL (60-115)
[2024-09-29] MEDS: Atorvastatin Calcium 80 MG TABLET PO (20:12)
[2024-09-30 03:39] VITALS: BP 104/58; PULSE 72; RESP 16; TEMP 36.3; O2SAT 93
[2024-09-30] MEDS: Omeprazole 20 MG CAPSULE.DR PO (05:02)
[2024-09-30 05:59] VITALS: BMI 33.7
[2024-09-30 07:11] LABS: Hematocrit 34.7 % (42.0-52.0); Hemoglobin 10.5 g/dl (14.0-18.0); Mean Corpuscular HGB Conc 30.3 g/dl (31.0-36.0); Mean Corpuscular Hemoglobin 27.3 pg (27.0-33.0); Mean Corpuscular Volume 90.4 fL (80.0-98.0); Mean Platelet Volume 10.3 fL (9.4-12.4); Platelet Count 194 X10*3/uL (160-400); Red Blood Count 3.84 X10*6/uL (4.60-5.80); White Blood Count 7.3 X10*3/uL (4.8-10.8)
[2024-09-30] MEDS: levalbuterol HCL 2.5 MG, Ipratropium Bromide 0.5 MG INHALE ×2 (07:26→11:16)
[2024-09-30] MEDS: Fluticasone/Vilanterol 200/25 BLST.W.DEV 1 PUFF INHALE (07:26)
[2024-09-30 07:27] VITALS: PULSE 72; RESP 16; O2SAT 95
[2024-09-30 07:32] VITALS: BP 122/80; PULSE 75; RESP 17; TEMP 36.2; O2SAT 96
[2024-09-30 07:38] LABS: Glucose, Whole Blood 110 mg/dL (60-115)
[2024-09-30 07:45] LABS: Anion Gap 14 (12-20); Blood Urea Nitrogen 19 mg/dL (9-16); Calcium 9.2 mg/dL (8.4-10.2); Carbon Dioxide 42 mmol/L (22-29); Chloride 85 mmol/L (96-108); Creatinine Clr Calc Pharmacy 85.1; Estimated Glomerular Filt Rate > 60; Glucose Random 119 mg/dL (60-115); Potassium 3.6 mmol/L (3.3-5.1); Sodium 137 mmol/L (135-145)
[2024-09-30] MEDS: predniSONE 20 MG TABLET 60 MG PO (08:02)
[2024-09-30] MEDS: Bumetanide 1 MG TABLET PO (08:03)
[2024-09-30] MEDS: LORazepam 1 MG TABLET PO (08:03)
[2024-09-30] MEDS: Doxycycline Monohydrate 100 MG CAPSULE PO (08:03)
[2024-09-30] MEDS: metFORMIN HCl 1,000 MG TABLET 1000 MG PO (08:04)
[2024-09-30] MEDS: Sennosides 8.6 MG TABLET PO (08:04)
[2024-09-30] MEDS: Metoprolol Tartrate 25 MG TABLET PO (08:04)
[2024-09-30] MEDS: Lactulose 20 GM/30 ML SOLUTION 10 GM PO (08:04)
[2024-09-30] MEDS: Escitalopram Oxalate 20 MG TABLET PO (08:04)
[2024-09-30] MEDS: 0.9 % Sodium Chloride Flush 3 ML SYRINGE IVFLUSH (08:05)
[2024-09-30 11:09] VITALS: BP 133/61; PULSE 71; RESP 18; TEMP 36.1; O2SAT 94
[2024-09-30 11:16] VITALS: PULSE 71; RESP 18; O2SAT 92
[2024-09-30 11:30] LABS: Glucose, Whole Blood 223 mg/dL (60-115)
--- NOTE | 2024-09-30 11:35 | PM.DS ---
DS: Providers Provider Date of Service: 09/30/24 Date of admission: 09/24/24 05:29 Date of discharge: 09/30/24 Primary care physician: Anne-Marie Muro MD DS: Diagnosis Discharge Diagnosis (1) Acute on chronic respiratory failure with hypoxia and hypercapnia: Status: Acute (2) Acute exacerbation of chronic obstructive pulmonary disease: Status: Acute (3) Abnormal CT of the abdomen: Status: Acute (4) Chronic constipation: Status: Acute DS: Summary Hospital Course Hospital Course: Admission H&P: Patient is a 74-year-old male with a past medical history significant for history lung cancer (diagnosed 10-15 years ago s/p chemo and radiation), chronic respiratory failure with hypercapnia, CAD, chronic constipation, severe COPD, HLD, GERD, HTN, 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 The patient reports that his oxygen has been helpful in the past however not helpful today. When EMS arrived he was oxygenating at 87% with 3 L via NC. He was given Solu-Medrol 125 mg and a DuoNeb in transport. The patient reports a productive cough with beige colored sputum. He also reports chronic constipation and states that he just had a bowel movement but prior to this he had not had a bowel movement for 3-4 days. At this time he is able to pass gas and just had a bowel movement. Hosptial course: Patient was admitted to the hospital due to shortness of breath from acute on chronic respiratory failure with hypoxia and hypercapnia secondary to acute COPD exacerbation with sepsis in bronchitis. He was treated with doxycycline b.i.d. x5 days and Solu-Medrol, ultimately transitioned to prednisone and completed a 5 day course. He has titrated his oxygen back to his 3 L baseline and feels his respiratory status is at his baseline. Bicarb has been chronically elevated, slowly increasing, we will send patient home with Diamox 250 mg b.i.d. x3 days. He also has chronic lower extremity edema, echo was normal with EF of 60-65%. Initially he was treated with IV Bumex 0.5 mg daily, transitioned to bumex 1mg p.o. on 09/27 due to slowing diuresis. He has been responding well to the medication and creatinine remains stable, we will continue 1 mg p.o. on discharge and have patient follow-up with PCP within 1 week for repeat labs. He had an abdominopelvic CT due to abdominal distention which showed large colonic stool burden extending to the proximal sigmoid colon, abrupt transition in the caliber of the large bowel in the mid sigmoid colon, similar to prior imaging and suspicious for focal stricturing within underlying colonic mass can not be excluded. Spoke with GI who recommended CT findings are chronic and patient had a recent colonoscopy with benign polyps. They recommended stricturing is inflammation secondary to diverticular disease. Bowel regimen was increased slightly from lactulose 10 g daily to 10 g b.i.d.. Continue with senna b.i.d.. His anemia has been chronic and at baseline, no need for blood transfusion during hospitalization. The patient was evaluated by PT with recommendation for home services versus inpatient pulmonary rehab. The patient declines rehab or any inpatient services and states that he feels comfortable going home and has not had improvement with services in the past. He lives in a one-story house with his and does not feel he has issues ambulating on his own. Status at Discharge Functional status at discharge: uses cane/walker Overall status at discharge: patient is progressing back to baseline Time Attestation Discharge Coordination Time (in mins): 45 Quality: Safe Use of Opioids Does Pt have an Active Cancer Diagnosis on the Problem List?: No Quality: Stroke Does the patient have a stroke diagnosis?: No Physical Exam Vital Signs: Vital Signs: Last Vital Signs Temp 97.0 F 09/30/24 11:09 Pulse 71 09/30/24 11:16 Resp 18 09/30/24 11:16 BP 133/61 09/30/24 11:09 Pulse Ox 94 09/30/24 11:09 O2 Del Method Nasal Cannula 09/30/24 11:09 O2 Flow Rate 2 09/30/24 11:09 Oxygen Flow Rate 3 09/24/24 02:00 BMI result Body Mass Index 33.7 General: AOx3, no acute distress Resp: CTA bilaterally, no wheezing or crackles CVS: S1, S2, RRR GI: +BS, NT, distended Skin: Warm, dry Neuro: Cranial nerves II-XII grossly intact bilaterally. Motor grossly intact bilaterally Extremities: pitting edema only in feet, 1+ Psych: Appropriate affect DS: Data Data Completed and Pending Completed studies during hospitalization [Text1]: Procedures Assistance with Respiratory Ventilation, Less than 24 Consecutive Hours, Continuous Positive Airway Pressure (06/16/24) Excision of Rectum, Via Natural or Artificial Opening Endoscopic, Diagnostic (05/26/24) Excision of Sigmoid Colon, Via Natural or Artificial Opening Endoscopic, Diagnostic (05/26/24) Excision of Transverse Colon, Via Natural or Artificial Opening Endoscopic, Diagnostic (05/26/24) Irrigation of Lower GI using Irrigating Substance, Via Natural or Artificial Opening (07/29/22) Labs on day of discharge: Laboratory Results - last 24 hr 09/29/24 09/29/24 09/29/24 11:25 15:46 19:53 WBC RBC Hgb Hct MCV MCH MCHC RDW Plt Count MPV Absolute Nucleated RBC Nucleated RBC % (auto) Sodium Potassium Chloride Carbon Dioxide Anion Gap BUN Creatinine Estim Creat Clear Calc Estimated GFR POC Glucose 239 H 285 H 282 H Random Glucose Calcium 09/30/24 09/30/24 09/30/24 06:40 07:34 11:26 WBC 7.3 RBC 3.84 L Hgb 10.5 L Hct 34.7 L MCV 90.4 MCH 27.3 MCHC 30.3 L RDW 14.0 Plt Count 194 MPV 10.3 Absolute Nucleated RBC 0.000 Nucleated RBC % (auto) 0.0 Sodium 137 Potassium 3.6 Chloride 85 L Carbon Dioxide 42 H* Anion Gap 14 BUN 19 H Creatinine 0.82 Estim Creat Clear Calc 85.1 Estimated GFR > 60 POC Glucose 110 223 H Random Glucose 119 H Calcium 9.2 D Discharge Plan Discharge Anticipated Discharge Date/Time: 09/30/24 11:21 Patient Disposition: Home, Self-Care Discharge Diagnosis: Acute on chronic respiratory failure with hypoxia and hypercapnia with sepsis secondary to acute COPD exacerbation with bronchitis. Chronic constipation. Referrals: Anne-Marie Muro MD [Primary Care Provider, Internal Medicine] - 1 Week Discharge Medications: New lactulose 10 gram/15 mL Solution 10 g PO BID Qty: 900 2RF acetazolamide 250 mg tablet 250 mg PO BID Qty: 6 0RF Continued (DME) blood-glucose meter [FreeStyle Lite Meter] Kit See Rx Instructions .Route Qty: 1 0RF Rx Instructions: As directed (DME) lancets [FreeStyle Lancets] 28 gauge misc See Rx Instructions .Route Qty: 100 1RF Rx Instructions: Test blood sugar twice (DME) FreeStyle Lite Strips Strip See Rx Instructions .Route Qty: 50 7RF Rx Instructions: check fasting glucose once a day AC metoprolol tartrate 25 mg tablet 25 mg PO BID Qty: 180 1RF metformin 1,000 mg tablet 1,000 mg PO BID Qty: 180 1RF atorvastatin 80 mg tablet 80 mg PO BEDTIME Qty: 90 1RF omeprazole 20 mg capsule,delayed release(DR/EC) 20 mg PO DAILY@0630 Qty: 30 1RF glipizide 5 mg tablet 5 mg PO BID Qty: 270 4RF ipratropium-albuterol 0.5 mg-3 mg(2.5 mg base)/3 mL solution for nebulization 3 ml inhalation Q6H PRN (Reason: wheezing) Qty: 180 2RF budesonide-formoterol [Symbicort] 160-4.5 mcg/actuation Hfa Aerosol Inhaler 2 puff INHALATION DAILY calcium carbonate-vitamin D3 600 mg-10 mcg (400 unit) tablet 1 tab PO DAILY bisacodyl [Laxative (bisacodyl)] 5 mg tablet,delayed release (DR/EC) 10 mg PO DAILY PRN (Reason: constipation) azithromycin 500 mg tablet 500 mg PO MOWEFR sennosides [Senna Lax] 8.6 mg Tablet 8.6 mg PO BID Qty: 120 0RF lorazepam [Ativan] 1 mg tablet 1 mg PO BID PRN (Reason: anxiety) Rx Instructions: Patient may request partial fill albuterol sulfate [Ventolin HFA] 90 mcg/actuation HFA aerosol inhaler 2 puff inhalation Q4H PRN (Reason: shortness of breath or wheezing) escitalopram oxalate 20 mg tablet 20 mg PO DAILY Qty: 90 3RF (DME) Oxygen Home Use Kit See Rx Instructions .Route Rx Instructions: As directed Discontinued lactulose [Constulose] 10 gram/15 mL solution 10 g PO DAILY PRN (Reason: Constipation) Qty: 1500 1RF Diet: diabetic/low salt diet Activity on Discharge: Use cane or walker Stand Alone Forms: Patient Portal Discharge page Print Language: Greenlandic Care Plan Goals: Recover from acute COPD exacerbation Constipation management Health Concerns: Acute hypoxic respiratory failure secondary to acute COPD exacerbation with sepsis and bronchitis Chronic constipation Plan of Treatment: Continue home oxygen Completed course of steroids and doxycycline Increase lactulose to 15ml BID for chronic consitpation and continue senna BID Take diamox 250mg BID x3 days Follow up with PCP within 1 week Follow up with veterinary practitioner in the next month for constipation management Assessment: see above
--- NOTE | 2024-09-30 11:51 | MHC.CM.PN ---
Patient has been medically cleared for dc to home today, self care. CM met with Patient at bedside and addressed IMM with him, providing Patient with the original and a copy has been placed on the chart. Patient is pleased to be going home today and he requests no home services.
--- NOTE | 2024-10-18 20:10 | P.CDIM_ITS ---
PROVIDER RESPONSE TEXT: To clarify, the appropriate diagnosis supported by the clinical indicators: Acute Diastolic CHF QUERY TEXT: PHYSICIAN'S DOCUMENTATION REQUEST Date of Query: 09/29/2024 11:45 AM EDT Patient Name: Fitz Reed Admit Date: 09/24/2024 Dear Dina Vivar PA-C, A review of the medical record indicates additional documentation may be needed. Please review below and update the documentation accordingly. Clinical Indicators: HFpEF could be related to right sided heart failure BNP 25 Echo shows EF 60-65%, abnormal diastolic function noted pitting edema diuretic, I&O, labs, oxygen Please provide further specificity regarding the acuity of CHF you are evaluating, treating, or monitoring. Acute Diastolic CHF Other (explain) Clinically unable to determine (explain) Thank you, Dianne Vazquez RN Use of terms such as suspected, likely, concern for, or probable (associated with a specific diagnosis that is being evaluated, monitored, or treated as if it exists) are acceptable and can be coded in the inpatient setting, when documented at the time of discharge. Please use your independent medical judgment in providing your response. THIS QUERY IS PART OF THE PERMANENT MEDICAL RECORD
--- NOTE | 2024-10-18 20:10 | P.CDIM_ITS ---
PROVIDER RESPONSE TEXT: To clarify, the appropriate diagnosis supported by the clinical indicators: Acute on chronic QUERY TEXT: PHYSICIAN'S DOCUMENTATION REQUEST Date of Query: 09/30/2024 10:54 AM EDT Patient Name: Fitz Reed Admit Date: 09/24/2024 Dear Dina Vivar PA-C, A review of the medical record indicates additional documentation may be needed. Please review below and update the documentation accordingly. Clinical Indicators: COPD exacerbation and Bronchitis IV Solu-medrol Continue Doxycycline b.i.d. for bronchitis, changed to PO 09/26 titrate oxygen as needed to 3L baseline Clarify which of the following accurately represents the acuity of the Bronchitis. Possible options might include: Acute Acute on chronic Compensated Chronic stable condition Remission Other (explain) Clinically unable to determine (explain) Thank you, Dianne Vazquez RN Use of terms such as suspected, likely, concern for, or probable (associated with a specific diagnosis that is being evaluated, monitored, or treated as if it exists) are acceptable and can be coded in the inpatient setting, when documented at the time of discharge. Please use your independent medical judgment in providing your response. THIS QUERY IS PART OF THE PERMANENT MEDICAL RECORD
== END 2024-09-30 15:45 | disposition home or self-care (01) | DRG 871 ==
LOC: HO.ED 06:00 → HO.EDOVER 06:33 → HO.IMC 19:37
PROVIDERS: Physician Assistant; Student in an Organized Health Care Education/Training Program; Admitting Provider Internal Medicine; Emergency Provider Emergency Medicine; PCP Internal Medicine; Visit Provider Physician Assistant
DX: A41.9 Sepsis, unspecified organism (principal); I50.31 Acute diastolic (congestive) heart failure; J18.9 Pneumonia, unspecified organism; J96.21 Acute and chronic respiratory failure with hypoxia; J96.22 Acute and chronic respiratory failure with hypercapnia; J44.1 Chronic obstructive pulmonary disease with (acute) exacerbation; J44.0 Chronic obstructive pulmonary disease with (acute) lower respiratory infection; J70.1 Chronic and other pulmonary manifestations due to radiation; I25.10 Atherosclerotic heart disease of native coronary artery without angina pectoris; Z85.118 Personal history of other malignant neoplasm of bronchus and lung; E11.9 Type 2 diabetes mellitus without complications; E78.5 Hyperlipidemia, unspecified; K59.09 Other constipation; I35.0 Nonrheumatic aortic (valve) stenosis; J20.9 Acute bronchitis, unspecified; Z99.81 Dependence on supplemental oxygen; D64.9 Anemia, unspecified; I11.0 Hypertensive heart disease with heart failure; E66.812 Obesity, class 2; Z68.34 Body mass index [BMI] 34.0-34.9, adult; Z71.3 Dietary counseling and surveillance; Z20.822 Contact with and (suspected) exposure to COVID-19; Z79.84 Long term (current) use of oral hypoglycemic drugs; Z79.899 Other long term (current) drug therapy
CPT/HCPCS: 0241U; 36415; 71045; 74176; 80048; 80076; 82803; 82947; 83605; 83880; 84145; 84484; 85025; 85027; 85379; 87040; 93005; 93306; 94640; 97162; 99285; J0456; J0696; J1271; J1650; J1939; J2270; J2919

== ENCOUNTER → 2024-09-24 02:10 | Outpatient (BNV) | payer MEDICARE, SELFPAY | PROVIDERS: Emergency Provider Emergency Medicine; PCP Internal Medicine; Visit Provider Radiology Vascular & Interventional Radiology | DX: J47.9 Bronchiectasis, uncomplicated (principal) | CPT/HCPCS: 71045 ==

== ENCOUNTER → 2024-09-24 02:14 | Outpatient (BNV) | payer MEDICARE, SELFPAY | PROVIDERS: Admitting Provider Internal Medicine; Emergency Provider Emergency Medicine; PCP Internal Medicine; Visit Provider Internal Medicine Cardiovascular Disease | DX: R94.31 Abnormal electrocardiogram [ECG] [EKG] (principal); R06.00 Dyspnea, unspecified | CPT/HCPCS: 93010 ==

== ENCOUNTER 2024-09-24 05:29 | Outpatient (BNV) | payer MEDICARE, SELFPAY | END 2024-09-25 17:00 | PROVIDERS: Admitting Provider Internal Medicine; Emergency Provider Emergency Medicine; PCP Internal Medicine; Visit Provider Internal Medicine Cardiovascular Disease | DX: R60.0 Localized edema (principal) | CPT/HCPCS: 93306 ==

== ENCOUNTER 2024-09-24 05:29 | Outpatient (BNV) | payer MEDICARE, SELFPAY | END 2024-09-27 13:00 | PROVIDERS: Admitting Provider Internal Medicine; Emergency Provider Emergency Medicine; PCP Internal Medicine; Visit Provider Radiology Diagnostic Radiology | DX: K56.41 Fecal impaction (principal) | CPT/HCPCS: 74176 ==

== ENCOUNTER → 2024-09-24 05:29 | Outpatient (BNV) | payer MEDICARE, SELFPAY | PROVIDERS: Admitting Provider Internal Medicine; Emergency Provider Emergency Medicine; PCP Internal Medicine; Visit Provider Student in an Organized Health Care Education/Training Program | DX: J96.21 Acute and chronic respiratory failure with hypoxia (principal); J96.22 Acute and chronic respiratory failure with hypercapnia; J44.1 Chronic obstructive pulmonary disease with (acute) exacerbation; K59.00 Constipation, unspecified; R93.5 Abnormal findings on diagnostic imaging of other abdominal regions, including retroperitoneum; K59.09 Other constipation | CPT/HCPCS: 99223; 99232; 99233; 99239; 99499 ==

== ENCOUNTER 2024-10-08 10:54 | Outpatient (AMB) | payer MEDICARE, SELFPAY ==
--- NOTE | 2024-10-08 10:57 | A.OFFPC_ITS ---
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 Movement Assembly Required: No Accompanied by: Self / Same As Patient Allergies fluticasone furoate (From Trelegy Ellipta) Allergy (Intermediate, Verified 10/08/24 10:58) Rash vilanterol (From Trelegy Ellipta) Allergy (Intermediate, Verified 10/08/24 10:58) Rash umeclidinium (Incruse Ellipta) Allergy (Unknown, Verified 10/08/24 10:58) Hives furosemide (From Lasix) Adverse Reaction (Intermediate, Verified 10/08/24 10:58) Hallucinations Tobacco use date assessed: 06/09/24 Fall risk assessment: No Falls in past year Last assessed Fall Risk: 10/08/24 Dental Screening Dental Screen Date: 06/09/24 [facility] TCM TCM Information Date of Discharge 09/30/24 Discharged From [facility] Interactive Contact Date (Reference documentation from this date) 10/01/24 HPI Comments History of Present Illness Details Patient is a 74-year-old male with a past medical history of lung cancer (diagnosed 10-15 years ago status post chemo and radiation), chronic respiratory failure with hypercapnia, CAD, severe COPD on 3L, HLD, chronic anemia, GERD, HTN, chronic constipation, class 2 obesity and radiation fibrosis of the lungs who went to the emergency department at [facility] on September 24 complaining of worsening shortness of breath over the last month. He was admitted to [facility] for acute on chronic respiratory failure with hypoxia and hypercapnia secondary to an acute COPD exacerbation with sepsis and bronchitis. He was treated with doxycycline, Solu-Medrol and transition to prednisone for 5 days his oxygen needs came back down to his baseline of 3 L. his bicarb is chronically elevated but it was slowly increasing so he was discharged on Diamox 250 mg twice daily for 3 days. He has chronic lower extremity edema and his echo showed a normal EF of 60-65%. He was given IV Bumex swelling in the hospital. And was discharged on 1 mg p.o. daily of Bumex. While in the hospital, his abdominal/pelvic CT showed showed a large colonic stool burden extending to the proximal sigmoid colon, an abrupt transition in the caliber of the large bowel in the mid sigmoid cool none, similar to prior imaging and suspicious for focal stricturing with underlying colonic mass can not be excluded. GI was consulted and they stated that the CT findings are chronic and he had a recent colonoscopy with benign polyps. GI also advised that the stricturing is inflammation secondary to diverticular disease. His bowel regimen was increased from lactulose 10 g daily to 10 g twice daily, he was to continue with his senna twice daily. The patient was evaluated by PT and they recommendation was for home services versus inpatient pulmonary rehab but t he patient declined any kind of rehab and states that he feels comfortable going home and he as never showed improvement with any kind of services in the past. He does live at home with his . He was discharged on September 30. Since his discharge, he has taken the Diamox, prednisone and Doxy in full. He reports the leg swelling is improved, L>R. He states his breathing is good but when he walks, his O2 goes down low 83-85%. He increases his oxygen prior to a short walk, as needed. He continues to decline pulmonary rehab and PT. He has his baseline cough and sob and slight wheeze but nothing beyond his baseline. Also, his H&H 10.5/34.7 while in the hospital, he denies bloody or black stools but records show he has a hx of chronic anemia. He went to GI this moring for his constipation, they increased senna to 2 pills twice a day, continue lactulose 15mL BID. [facility] Medical History History of adenomatous polyp of colon Acute on chronic respiratory failure with hypoxia and hypercapnia Positive colorectal cancer screening using Cologuard test Respiratory failure with hypoxia and hypercapnia Bilateral carotid artery disease CAD (coronary artery disease) Anxiety and depression Anemia Chronic respiratory failure with hypoxia and hypercapnia Radiation fibrosis of lung HTN (hypertension) Dyslipidemia History of pneumonia Bacteremia due to Enterococcus COPD, severe Diabetes mellitus with hyperglycemia, without long-term current use of insulin Urinary incontinence Asthma Lung cancer Skin cancer Surgical History Hx of heart artery stent History of esophagogastroduodenoscopy (EGD) Hx of colonoscopy Family History Father Medical history non-contributory Mother Medical history non-contributory Unknown family medical history Lung collapse Brother No problems noted. Brother No problems noted. Son Substance use disorder Son No problems noted. Daughter No problems noted. Sister No problems noted. Sister No problems noted. Sister No problems noted. Sister No problems noted. Other HTN (hypertension) Social History Household Members: Spouse Household Members Other:: grandson Housing: House Are you a primary adult day care worker to a significant other at home: No Do you presently have visiting nurse or other home services: No Alcohol intake: never Comment: pt refuses non skid socks Patient Tobacco Use Status: Former Tobacco user Tobacco use type: Cigarette e-Cigarette/Vaping Use: Never Used Advance Directives Date on File: 06/08/22 service: No Current occupational status: retired Cognitive needs: No Hearing needs: No Vision needs: No Questionnaire PHQ-9 Over the last 2 weeks, how often have you been bothered by any of the following problems? 1. Little interest or pleasure in doing things: several days 2. Feeling down, depressed, or hopeless: several days 3. Trouble falling or staying asleep, or sleeping too much: more than half the days 4. Feeling tired or having little energy: more than half the days 5. Poor appetite or overeating: not at all 6. Feeling bad about yourself - or that you are a failure or have let yourself or your family down: not at all 7. Trouble concentrating on things, such as reading the newspaper or watching television: not at all 8. Moving or speaking so slowly that other people could have noticed. Or the opposite - being so fidgety or restless that you have been moving around a lot more than usual: not at all 9. Thoughts that you would be better off or of hurting yourself in some way: not at all Total score: 6 Depression Screening Interpretation: Positive (Currently on escitalopram 20 mg daily) Depression Screening Follow-up: Existing condition, In treatment and Community Mental Health Worker F/U Depression Screening Done: Yes 06083 - PHQ-9 Billing: Yes Source: Developed by Drs. Finn Stevens, Klaudia Bonilla, Reinaldo Suero and colleagues, with an educational lolita from [employer]. Thrive Questionnaire Date Thrive assessed: 10/08/24 I am a: Patient What is your living situation today?: I have a steady place to live Within the past 12 months, did the food you bought not last and you didn't have the money to get more?: Never true Within the past 12 months, did you worry whether your food would run out before you got money to buy more?: Never true Do you have trouble paying for medicines?: No Do you have trouble getting transportation to medical appointments?: No Do you have trouble paying your heating and electricity bill?: No Do you have trouble taking care of your child, family member or friend?: No Do you have trouble with day-to-day activities such as bathing, preparing meals, shopping, managing finances, etc.?: No Are you currently unemployed and looking for a job?: No Are you interested in more education?: No Please select the resources that you would like help with: None Currently or been in a relationship where the following occur: No concerns reported THRIVE Score: 0 AUDIT C Alcohol Use Questionnaire (AUDIT-C) 1. How often do you have a drink containing alcohol?: Never 3. How often do you have six or more drinks on one occasion?: Never Total Score: 0 Score Reviewed/Action Taken: Yes SAUMYA-7 AMB Questionnaire SAUMYA-7 Date SAUMYA - 7 assessed: 10/08/24 Feeling nervous, anxious, or on edge: 2 = More than half the days Not being able to stop or control worryin = Several days Worrying too much about different things: 2 = More than half the days Trouble relaxin = Several days Being so restless that it is hard to sit still: 0 = Not at all Becoming easily annoyed or irritable: 1 = Several days Feeling afraid as if something awful might happen: 1 = Several days Total SAUMYA-7 score (0-4 normal; 5-9 mild; 10-14 moderate; 15-21 severe): 8 Source: Developed by Drs. Finn Stevens, Klaudia Bonilla, Reinaldo Suero and colleagues, with an educational lolita from [employer]. SAUMYA-7 Assessment Billing SAUMYA-7 Assessment Tool: SAUMYA-7 Assessment 85001 Review of Systems Const All systems reviewed & are unremarkable except as noted in HPI and below Physical exam (Primary Care) Vital Signs: Last Vital Signs Pulse 68 10/08/24 10:58 BP 100/58 L 10/08/24 10:58 Pulse Ox 93 10/08/24 10:58 Oxygen Delivery Method Room Air 10/08/24 10:58 BMI result Body Mass Index 40.0 Tobacco/Smoking Status: Tobacco use Status Tobacco use date assessed 06/09/24 10/08/24 11:00 Patient Tobacco Use Status Former Tobacco user 10/08/24 11:00 Tobacco use type Cigarette 10/08/24 11:00 e-Cigarette/Vaping Use Never Used 10/08/24 11:00 PHQ-9: PHQ-9 Score PHQ-9: Total score 6 10/08/24 11:10 Depression Screening Interpretation: Positive (Currently on escitalopram 20 mg daily) Depression Screening Follow-up: Existing condition, In treatment and Community Mental Health Worker F/U Thrive Assessment: Date of Thrive Assessment Date Thrive assessed 10/08/24 10/08/24 11:00 Currently or been in a relationship where the following occur: No concerns reported Const General: cooperative, healthy appearing, comfortable, no acute distress and well developed Orientation/consciousness: patient oriented x3 Limitations: wheelchair HENMT Other: NC in place Head: Yes normal to inspection Ears: hearing grossly normal bilaterally General nose exam: Normal external nose present Face and sinus: Yes normal facial exam Eyes General: appearance normal, both eyes and all related structures Neck Neck: Yes normal visual inspection and Yes full ROM Resp Effort & Inspection: normal respiratory effort and able to speak in complete sentences Auscultation: wheezes (slight wheeze at very end of expiration throughout) Cardio Rate: regular rate Rhythm: regular rhythm Heart sounds: normal S1 and S2 Skin General skin exam: no rashes or lesions noted Neuro General: patient oriented x3 Extrem General: Yes normal to inspection Coding Level of Care Code TCM Mod MDM <= 14 Days Diagnoses Chronic anemia D64.9 Acute on chronic respiratory failure with hypoxia and hypercapnia J96.21; J96.22 Respiratory failure complication: hypoxia and hypercapnia COPD, severe J44.9 Chronic constipation K59.09 Hospital discharge follow-up Z09 Additional Codes SAUMYA-7 Assessment Billing - SAUMYA-7 Assessment Tool: SAUMYA-7 Assessment 74620 ([id number]) PHQ-9 - 77075 - PHQ-9 Billing: Yes ([id number]) Assessment & Plan Assessment & Plan (1) Chronic anemia: Code(s): D64.9 - Anemia, unspecified Category: Medical Plan: We will repeat CBC today. (2) Acute and chronic respiratory failure: Code(s): J96.20 - Acute and chronic respiratory failure, unspecified whether with hypoxia or hypercapnia Category: Medical Qualifiers: Respiratory failure complication: hypoxia and hypercapnia Qualified Code(s): J96.21 - Acute and chronic respiratory failure with hypoxia; J96.22 - Acute and chronic respiratory failure with hypercapnia Plan: We will repeat metabolic panel to see if the Diamox upon discharge resolved his hypercarbia, last CO2 was 42 on discharge. (3) COPD, severe: Code(s): J44.9 - Chronic obstructive pulmonary disease, unspecified Category: Medical Plan: He continues to decline pulmonary rehab or any kind of physical therapy but I did tell him to please reach out if he changes his mind. (4) Chronic constipation: Code(s): K59.09 - Other constipation Category: Medical Plan: Patient saw GI this morning, he we will be increasing his senna and continuing his lactulose. (5) Hospital discharge follow-up: Code(s): Z09 - Encounter for follow-up examination after completed treatment for conditions other than malignant neoplasm Category: Medical Plan: Overall, patient is doing very well, he is seems to be back to his baseline with his breathing and oxygen needs. We will repeat a CBC and CMP today to ensure his anemia and hypercarbia are back to his baseline. Orders: Orders Complete Blood Count Auto Diff Today D64.9 - Anemia, unspecified Comprehensive Met. Panel Today J44.9 - Chronic obstructive pulmonary disease, unspecified, J96.20 - Acute and chronic respiratory failure, unspecified whether with hypoxia or hypercapnia
[2024-10-08 10:58] VITALS: BP 100/58; PULSE 68; O2SAT 93; BMI 40.0
== END 2024-10-08 11:44 | disposition home or self-care (01) ==
LOC: HO.HMCC 10:55
PROVIDERS: PCP Internal Medicine; Visit Provider Physician Assistant
DX: D64.9 Anemia, unspecified (principal); J96.21 Acute and chronic respiratory failure with hypoxia; J96.22 Acute and chronic respiratory failure with hypercapnia; J44.9 Chronic obstructive pulmonary disease, unspecified; K59.09 Other constipation; Z09 Encounter for follow-up examination after completed treatment for conditions other than malignant neoplasm

== ENCOUNTER 2024-11-11 12:38 | Inpatient (IN) | payer MEDICARE, SELFPAY ==
[2024-11-11] VITALS (8 sets, daily range): BP systolic 97–127; BP diastolic 47–85; PULSE 71–82; RESP 12–17; TEMP 36.5–36.6; O2SAT 94–99; BMI 33.6
--- NOTE | ~2024-11-11 | XR_ITS ---
EXAMINATION: XR CHEST CLINICAL INFORMATION: SOB COMPARISON: 09/24/2024, 06/15/2024. TECHNIQUE: AP view of the chest was obtained. FINDINGS: The cardiac, hilar, and mediastinal contours are normal. Chronic scarring of the left apex and left upper lung again noted, with mild volume loss. This is unchanged. The right lung appears clear. There are no effusions. There is no pneumothorax. No focal osseous or soft tissue abnormality. Calcific tendinopathy of the left rotator cuff noted. XR/XR chest 1V IMPRESSION: 1. Stable scarring left apex and upper left lung with loss of volume. Unchanged appearance since 06/15/2024. 2. Right lung is clear. Electronically signed by: Yan Mcqueen MD 11/11/2024 01:34 PM EDT
--- NOTE | ~2024-11-11 | CT_ITS ---
EXAMINATION: CT ABDOMEN PELVIS WITHOUT IV CONTRAST HISTORY: rule out right sided lesion, WI contrast COMPARISON: Comparison is made with the prior examination dated 11/11/2024. TECHNIQUE: CT scan of the abdomen and pelvis was performed without contrast using standard departmental protocol. Coronal and sagittal reformatted images were generated and reviewed. The patient received rectal contrast material. This CT exam was performed with one or more of the following dose reduction techniques: automated exposure control, adjustment of the mA and/or kV according to patient size, use of iterative reconstruction technique. DLP: 768 mGy-cm FINDINGS: LOWER CHEST: The visualized lung bases are clear. There is no pleural effusion. CARDIOVASCULATURE: The heart is normal in size. There is no pericardial effusion. LIVER: The liver is normal in size and contour. The liver has an unremarkable unenhanced appearance. GALLBLADDER / BILE DUCTS: The gallbladder is distended, without evidence of calcified stones. There is no intra or extrahepatic biliary ductal dilatation. SPLEEN: The spleen is normal in size and has an unremarkable unenhanced appearance. PANCREAS: The pancreas has an unremarkable unenhanced appearance. ADRENAL GLANDS: Unremarkable. KIDNEYS/RETROPERITONEUM: There is a 9 mm nonobstructing calculus at the upper pole of the right kidney. There is no hydronephrosis. LYMPH NODES: No retroperitoneal lymphadenopathy is identified in the abdomen or pelvis. VASCULATURE: The abdominal aorta demonstrates atherosclerotic calcification, but is normal in caliber. MESENTERY/PERITONEUM: No free fluid. No masses. There is no free intraperitoneal gas. STOMACH: The stomach is collapsed, limiting evaluation. SMALL BOWEL: The small bowel is normal in caliber. COLON: There is a large amount of stool in ascending and proximal transverse colon. Dense rectal contrast is seen throughout the colon. APPENDIX: Normal. URINARY BLADDER/PELVIC ORGANS: The urinary bladder is collapsed, limiting evaluation. The prostate is normal in size. BONES / SOFT TISSUES: There is bilateral spondylolysis of L4 with grade I-II spondylolisthesis of L4 on L5. There are sclerotic foci in the femoral heads suggestive of chronic AVN. CT/CT abdomen pelvis wo IV con IMPRESSION: Large amount of stool in the ascending and proximal transverse colon. A colonic mass is not excluded. If there is clinical concern for an ascending colon mass, colonoscopy is recommended. Electronically signed by: Finn Shea MD 11/19/2024 02:22 PM EDT
--- NOTE | ~2024-11-11 | CT_ITS ---
EXAMINATION: CT ABDOMEN AND PELVIS WITH CONTRAST CLINICAL INFORMATION: Abdominal pain. No bowel movements techniques. History of stricture. COMPARISON: CT abdomen and pelvis without contrast 09/27/2024 TECHNIQUE: Multidetector volumetric images were obtained from the superior aspect of the liver through the pubic symphysis following administration 85 mL of Omnipaque 350 intravenous contrast. Sagittal and coronal reformatted images were obtained on the technologist's workstation. Oral contrast: No This CT examination was performed using dose optimization techniques as appropriate, variously including the following: *Automated exposure control *Adjustment of mA and/or kV according to patient size (this includes techniques or standardized protocols for targeted exams where dose is matched to indication/reason for exam; i.e. extremities or head) *Use of iterative reconstruction technique FINDINGS: LUNG BASES: The visualized lung bases are unremarkable. Heart size is normal. LIVER, GALLBLADDER, AND BILIARY TREE: The liver is normal in size, shape, and attenuation. No focal hepatic lesion or biliary ductal dilatation is present. The gallbladder is unremarkable with no evidence of radiopaque gallstones, gallbladder wall thickening, or obvious pericholecystic inflammatory changes. PANCREAS: Unremarkable. SPLEEN: Unremarkable. ADRENAL GLANDS: Unremarkable. KIDNEYS AND URETERS: The kidneys are normal in size, shape, and attenuation. There is a 1 cm upper pole and 5 mm mid pole and 2 mm lower pole radiopaque right renal calculi. There is no caliectasis or hydronephrosis. There are vascular calcifications in in bilateral renal pelvis. BLADDER: Unremarkable. GASTROINTESTINAL TRACT: There is scattered stool and gas seen throughout the colon without distention. Few scattered diverticuli seen in sigmoid colon. There is oral contrast in the small bowel loops and appears unremarkable. Appendix is not visualized. No free air or free fluid seen. ABDOMINAL WALL: No significant hernia is appreciated. LYMPH NODES: Normal. VASCULAR: Atherosclerotic changes of abdominal aorta without aneurysmal dilatation. PELVIC VISCERA: Prostate is mildly enlarged. OSSEOUS STRUCTURES: There is grade 1 anterolisthesis L4 over L5. There is loss of L4-5 and L5-S1 disc heights with mild ventral spondylosis. CT/CT abdomen pelvis w IV con IMPRESSION: No acute intra-abdominal process seen. Moderate to significant constipation. Colonic diverticulosis without diverticulitis. Stable right renal stones without hydronephrosis. Fleischner guidelines were followed. Electronically signed by: Rakesh Jean MD 11/11/2024 03:56 PM EDT
--- NOTE | 2024-11-11 12:48 | ED.GENADULT ---
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 He was hospitalized from 09/24/24-09/30/24 for acute hypoxic respiratory failure secondary to acute COPD exacerbation with sepsis and bronchitis. He endorses a 7-8 pound weight increase in the last month. He has a cough that produces mucus every so often but denies any blood in the mucus. He denies fever, chills, chest pain, nausea, vomiting, diarrhea, changes to urination. He has not traveled recently and has had no sick contacts. Pain Consistency: constant Relieving factors: none Associated symptoms: cough Related Data Home Medications ?Medication ?Instructions ?Recorded ?Confirmed budesonide-formoterol HFA 160 2 puff inhalation DAILY 03/14/21 10/08/24 mcg-4.5 mcg/actuation aerosol inhaler (Symbicort) calcium 600 mg (as 1 tab PO DAILY 08/04/21 10/08/24 carbonate)-vitamin D3 10 mcg (400 unit) tablet Oxygen Home Use 06/14/22 10/08/24 bisacodyl 5 mg tablet,delayed 10 mg PO DAILY PRN constipation 06/16/24 10/08/24 release (Laxative (bisacodyl)) albuterol sulfate 90 mcg/actuation 2 puff inhalation Q4H PRN 09/24/24 10/08/24 aerosol inhaler (Ventolin HFA) shortness of breath or wheezing sennosides 8.6 mg tablet (senna) 17.2 mg PO BID 11/11/24 11/11/24 Previous Rx's ?Medication ?Instructions ?Recorded blood-glucose meter (FreeStyle #1 ea 01/23/22 Lite Meter kit) lancets 28 gauge (FreeStyle #100 ea 01/31/24 Lancets) blood sugar diagnostic (FreeStyle #50 ea 03/07/24 Lite Strips) metoprolol tartrate 25 mg tablet 25 mg PO BID #180 tabs 06/09/24 metformin 1,000 mg tablet 1,000 mg PO BID #180 tabs 06/12/24 atorvastatin 80 mg tablet 80 mg PO BEDTIME #90 tabs 07/13/24 omeprazole 20 mg capsule,delayed 20 mg PO DAILY@0630 #30 caps 08/14/24 release glipizide 5 mg tablet 5 mg PO BID #270 tabs 08/31/24 ipratropium 0.5 mg-albuterol 3 mg 3 ml inhalation Q6H PRN wheezing 09/01/24 (2.5 mg base)/3 mL nebulization #180 mL soln lactulose 10 gram/15 mL oral 10 g (15 mL) PO BID #900 mL 09/30/24 solution escitalopram oxalate 20 mg tablet 20 mg PO DAILY #90 tabs 10/01/24 lorazepam 1 mg tablet (Ativan) 1 mg PO BID PRN anxiety #30 tabs 10/07/24 linaclotide 145 mcg capsule 145 mcg PO QAM 30 days #30 caps 10/08/24 (Linzess) polyethylene glycol 3350 17 17 g PO DAILY colon prep 1 day 10/08/24 gram/dose oral powder (Miralax) #238 grams Allergies Allergy/AdvReac Type Severity Reaction Status Date / Time fluticasone furoate (From Allergy Intermediate Rash Verified 11/11/24 12:54 Trelegy Ellipta) vilanterol (From Trelegy Allergy Intermediate Rash Verified 11/11/24 12:54 Ellipta) umeclidinium (Incruse Allergy Unknown Hives Verified 11/11/24 12:54 Ellipta) furosemide (From Lasix) AdvReac Intermediate Hallucinati Verified 11/11/24 12:54 ons Review of Systems Constitutional: Constitutional: Reports as per HPI, Denies fever(s), Denies headache(s) and Reports weight gain Eyes: Eyes: Reports no additional eye complaints and Denies change in vision ENT: Denies headache(s) Cardiovascular: Cardiovascular: Reports no additional cardiovascular complaints, Reports Abdominal Distension, Denies chest pain, Reports leg edema, Denies lightheadedness and Reports dyspnea Respiratory: Respiratory: Reports no additional respiratory complaints, Reports chest congestion, Reports cough and Reports dyspnea Gastrointestinal: Gastrointestinal: Reports no additional gastrointestinal complaints, Reports abdominal pain (intermittent sharp pain ), Denies melena, Denies hematochezia, Reports change in bowel habits, Denies change in stool character and Reports constipation (2 weeks) Genitourinary: Genitourinary: Reports no additional male genitourinary complaints and Denies dysuria Musculoskeletal: Musculoskeletal: Reports no additional musculoskeletal complaints, Denies numbness and Denies tingling Neurologic: Denies headache(s), Denies numbness and Denies tingling Psychiatric: Psychiatric: Reports no additional psychiatric complaints Endocrine: Endocrine: Reports no additional endocrine complaints Hematologic/Lymphatic: Hematologic/Lymphatic: Reports no additional hematologic/lymphatic complaints Allergic/Immunologic: Allergic/Immunologic: Reports no additional allergic/immunologic complaints FOR[facility]LY [facility] Past Medical History Attestation statement: The following information was validated with the patient. Source: old records reviewed and nursing notes reviewed Medical History (Updated 11/11/24 @ 17:19 by DARRYL Aguilar) HTN (hypertension) History of adenomatous polyp of colon Acute on chronic respiratory failure with hypoxia and hypercapnia Positive colorectal cancer screening using Cologuard test Respiratory failure with hypoxia and hypercapnia Bilateral carotid artery disease CAD (coronary artery disease) Anxiety and depression Anemia Chronic respiratory failure with hypoxia and hypercapnia Radiation fibrosis of lung Dyslipidemia History of pneumonia Bacteremia due to Enterococcus COPD, severe Diabetes mellitus with hyperglycemia, without long-term current use of insulin Urinary incontinence Asthma Lung cancer Skin cancer Surgical History Hx of heart artery stent History of esophagogastroduodenoscopy (EGD) Hx of colonoscopy Family History Family History Father Medical history non-contributory Mother Medical history non-contributory Unknown family medical history Lung collapse Brother No problems noted. Brother No problems noted. Son Substance use disorder Son No problems noted. Daughter No problems noted. Sister No problems noted. Sister No problems noted. Sister No problems noted. Sister No problems noted. Other HTN (hypertension) Social History Social History Household Members: Spouse Household Members Other:: grandson Housing: House Are you a primary director day care center to a significant other at home: No Do you presently have visiting nurse or other home services: No Alcohol intake: never Comment: pt refuses non skid socks Patient Tobacco Use Status: Former Tobacco user Tobacco use type: Cigarette Smoked in Last 30 Days: No e-Cigarette/Vaping Use: Never Used Use of substances other than those prescribed or required for medical reasons: No Advance Directives: Yes Advance Directives on File: Yes Advance Directives Date on File: 06/08/22 service: No Current occupational status: retired Cognitive needs: No Hearing needs: No Vision needs: No Physical Exam ED Vital Signs: Vital Signs - 24 hr 11/11/24 12:46 11/11/24 13:25 11/11/24 14:15 Temperature 97.7 F Pulse Rate 75 71 73 Respiratory Rate 16 12 16 Blood Pressure 115/68 127/69 Pulse Oximetry 94 97 Oxygen Delivery Method Nasal Cannula Nasal Cannula Oxygen Flow Rate 3 11/11/24 15:05 Temperature 97.9 F Pulse Rate 75 Respiratory Rate 14 Blood Pressure 106/52 L Pulse Oximetry 97 Oxygen Delivery Method Nasal Cannula Oxygen Flow Rate 2 BMI result Body Mass Index 33.6 Const General: cooperative, alert and awake Nutritional Appearance: well nourished Orientation/consciousness: patient oriented x3 HENMT Head: Yes normal to inspection and Yes atraumatic Ears: hearing grossly normal bilaterally and external ears normal General nose exam: Normal external nose present, no nasal discharge noted and no epistaxis Face and sinus: Yes normal facial exam, No abrasion and No laceration Mouth: Normal oral and palatal mucosa present, no drooling and no muffled voice Eyes General: appearance normal, both eyes and all related structures Periorbital: periorbital findings normal Eyelids: Yes eyelids normal Conjunctivae: conjunctivae normal Pupils: Equal, round and reactive pupils present EOM: EOMs intact bilaterally Neck Neck: Yes normal visual inspection and Yes full ROM Resp Effort & Inspection: normal respiratory effort and able to speak in complete sentences Auscultation: wheezes upper bilaterally Cardio Rate: regular rate Rhythm: regular rhythm GI Inspection: Yes distended Palpation (GI): Soft to palpation, Firmness to palpation present (GI), nontender, no guarding and not rigid Auscultation: normal bowel sounds Skin General skin exam: no rashes or lesions noted Neuro General: patient oriented x3, moves all extremities and CN's II-XI intact bilaterally Cranial nerves: Yes Equal, round and reactive pupils present Cognition (Neuro): normal cognition Extrem General: Yes normal to inspection, Yes full ROM and Yes capillary refill normal Right lower extremity: edema Details: 1+ and foot Left lower extremity: edema Details: 1+ and foot Psych Appearance: grossly normal Mental Status: mental status grossly normal Affect: normal affect Attitude: cooperative Thought process: Normal thought process present Thought content: Normal thought content present Insight: Good insight present (Psych) Medications Administered Discontinued Medications Generic Name Dose Route Start Last Admin Trade Name Lonnyq PRN Reason Stop Dose Admin Levalbuterol HCl 3.75 mg/ 0 mg 11/11/24 13:17 11/11/24 13:19 Ipratropium [place] 0.5 mg INHALE 11/11/24 13:18 1 dose ONCE ONE Administration Diatrizoate Meglum/Diatrizoate Sod 30 ml 11/11/24 15:14 11/11/24 15:14 Diatrizoate Meglumine, Sodium 30 Ml Solution PO 11/11/24 15:15 30 ml ONCE ONE Administration Magnesium Sulfate/Dextrose 1 gm in 100 mls @ 100 mls/hr 11/11/24 13:59 11/11/24 15:17 Magnesium Sulfate/D5w IV 11/11/24 14:58 Infused ONCE ONE Infusion Iohexol 100 ml 11/11/24 15:15 11/11/24 15:15 Iohexol 350 Mg/Ml 100 Ml Infus..Btl IV 11/11/24 15:16 85 ml ONCE ONE Administration Methylprednisolone Sodium Succinate 60 mg 11/11/24 13:59 11/11/24 14:16 Methylprednisolone Sod Succ 125 Mg/2 Ml Vial IVPUSH 11/11/24 14:00 60 mg ONCE ONE Administration Medical Decision Making Medical Decision Making MDM Narrative: Patient is a 74 year old assigned male at with a history of lung cancer (diagnosed 10-15 years ago s/p chemo and radiation), chronic respiratory failure with hypercapnia on 3 liters of oxygen at baseline, CAD, chronic constipation, severe COPD, HLD, GERD, HTN, and 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 Patient's physical exam was as noted in the physical exam portion of this note. Patient's blood work was unremarkable. Patient's EKG was unremarkable. Patient's chest x-ray showed no acute process. Patient's abdominal CT showed evidence of severe constipation but no obstruction. I did consult with the general surgery team who stated there was no obstruction and they would consult on the case. Patient got a breathing treatment, magnesium, solu-medrol however the patient continued to have increased work of breathing. I spoke with the hospitalist team who agreed to admission for COPD exacerbation + severe constipation. Patient's clinical presentation is not consistent with sepsis (@1710). I explained my physical exam findings as well as all test results to the patient. I answered all questions asked by the patient. Patient verbalized agreement and understanding with this treatment plan and admission. Differential Diagnosis Differential Diagnoses: The differential diagnosis associated with the presentation includes Constipation SOB COPD exacerbation Admission/Observation Consideration of admission/observation: Escalation of care including admission/observation considered Patient admitted as noted in the MDM Rationale portion of this note. Consult Healthcare Provider Management of the patient was discussed with: Hospitalist (agreed to admission as noted in the MDM Rationale portion of this note. ) and Overnight Caregiver (consulted with the general surgery team as noted in the MDM Rationale portion of this note. ) Lab Data [facility] Lab Attestation statement: I reviewed the patient's lab results. My interpretation of these results are in the MDM Rationale portion of this note. 11/11/24 13:07 11/11/24 13:07 Labs: Lab Results 11/11/24 11/11/24 11/11/24 Range/Units 13:07 13:15 13:55 WBC 6.3 (4.8-10.8) X10*3/uL RBC 3.76 L (4.60-5.80) X10*6/uL Hgb 10.4 L (14.0-18.0) g/dl Hct 34.5 L (42.0-52.0) % MCV 91.8 (80.0-98.0) fL MCH 27.7 (27.0-33.0) pg MCHC 30.1 L (31.0-36.0) g/dl RDW 14.3 (11.0-16.0) % Plt Count 178 (160-400) X10*3/uL MPV 10.2 (9.4-12.4) fL Immature Gran % (Auto) 0.5 H (0.0-0.4) % Neut % (Auto) 66.5 (45-73) % Lymph % (Auto) 18.5 L (20-40) % [place] % (Auto) 10.6 (2-11) % Eos % (Auto) 3.3 (0-4) % Baso % (Auto) 0.6 (0-2) % Lymph # (Auto) 1.2 (1.2-4.9) X10*3/uL [place] # (Auto) 0.7 (0.1-1.2) X10*3/uL Eos # (Auto) 0.2 (0.0-0.4) X10*3/uL Baso # (Auto) 0.0 (0.0-0.2) X10*3/uL Abs Immat Gran (auto) 0.03 (0.00-0.03) X10*3/uL Absolute Neuts (auto) 4.2 (2.0-8.3) x10*3/uL Absolute Nucleated RBC 0.000 (0.0-0.012) X10*3/uL Nucleated RBC % (auto) 0.0 (0.0-0.2) /100WBC PT 10.3 L (10.9-12.4) SEC INR 0.9 (0.9-1.1) VBG pH 7.36 (7.32-7.43) VBG pCO2 74 mmHg VBG pO2 49 mmHg VBG HCO3 43 H (22-26) mmol/L VBG O2 Saturation 78.0 % VBG Base Excess 14.6 mmol/L Sodium 140 (135-145) mmol/L Potassium 4.2 (3.3-5.1) mmol/L Chloride 97 (96-108) mmol/L Carbon Dioxide 37 H (22-29) mmol/L Anion Gap 10 L (12-20) BUN 8 L (9-16) mg/dL Creatinine 0.81 (0.5-1.4) mg/dL Estim Creat Clear Calc 86.0 Estimated GFR > 60 Random Glucose 243 H (60-115) mg/dL Calcium 8.6 (8.4-10.2) mg/dL Magnesium 2.2 (1.6-2.6) mg/dL Total Bilirubin 0.3 (0.0-1.0) mg/dL AST 22 (5-37) U/L ALT 14 (0-40) U/L Alkaline Phosphatase 100 (39-117) U/L Ammonia 39 (13-55) umol/L Troponin I High Sens 3.6 (<3.5-35.0) ng/L Total Protein 7.0 (6.5-8.0) g/dL Albumin 4.3 (3.5-5.0) g/dL Influenza Type A (PCR) NEGATIVE (Negative) Influenza Type B (PCR) NEGATIVE (Negative) RSV RNA Qual (PCR) NEGATIVE (Negative) SARS-CoV-2 RNA (RT-PCR) NEGATIVE (Negative) Independent Interpretation I performed an independent interpretation of an: Plain X-Ray and CT Scan Interpretation: My interpretation is in agreement with the radiologist's impression of these imaging studies. EXAMINATION: XR CHEST CLINICAL INFORMATION: SOB COMPARISON: 09/24/2024, 06/15/2024. TECHNIQUE: AP view of the chest was obtained. FINDINGS: The cardiac, hilar, and mediastinal contours are normal. Chronic scarring of the left apex and left upper lung again noted, with mild volume loss. This is unchanged. The right lung appears clear. There are no effusions. There is no pneumothorax. No focal osseous or soft tissue abnormality. Calcific tendinopathy of the left rotator cuff noted. XR/XR chest 1V IMPRESSION: 1. Stable scarring left apex and upper left lung with loss of volume. Unchanged appearance since 06/15/2024. 2. Right lung is clear. Electronically signed by: Yan Mcqueen MD 11/11/2024 01:34 PM EDT Dictated By: Yan Mcqueen MD Signed By: Electronically signed by Yan Mcqueen MD 11/11/24 1334 Report Number: [id number]: Total DLP = 505.00 mGy-cm EXAMINATION: CT ABDOMEN AND PELVIS WITH CONTRAST CLINICAL INFORMATION: Abdominal pain. No bowel movements techniques. History of stricture. COMPARISON: CT abdomen and pelvis without contrast 09/27/2024 TECHNIQUE: Multidetector volumetric images were obtained from the superior aspect of the liver through the pubic symphysis following administration 85 mL of Omnipaque 350 intravenous contrast. Sagittal and coronal reformatted images were obtained on the technologist's workstation. Oral contrast: No This CT examination was performed using dose optimization techniques as appropriate, variously including the following: *Automated exposure control *Adjustment of mA and/or kV according to patient size (this includes techniques or standardized protocols for targeted exams where dose is matched to indication/reason for exam; i.e. extremities or head) *Use of iterative reconstruction technique FINDINGS: LUNG BASES: The visualized lung bases are unremarkable. Heart size is normal. LIVER, GALLBLADDER, AND BILIARY TREE: The liver is normal in size, shape, and attenuation. No focal hepatic lesion or biliary ductal dilatation is present. The gallbladder is unremarkable with no evidence of radiopaque gallstones, gallbladder wall thickening, or obvious pericholecystic inflammatory changes. PANCREAS: Unremarkable. SPLEEN: Unremarkable. ADRENAL GLANDS: Unremarkable. KIDNEYS AND URETERS: The kidneys are normal in size, shape, and attenuation. There is a 1 cm upper pole and 5 mm mid pole and 2 mm lower pole radiopaque right renal calculi. There is no caliectasis or hydronephrosis. There are vascular calcifications in in bilateral renal pelvis. BLADDER: Unremarkable. GASTROINTESTINAL TRACT: There is scattered stool and gas seen throughout the colon without distention. Few scattered diverticuli seen in sigmoid colon. There is oral contrast in the small bowel loops and appears unremarkable. Appendix is not visualized. No free air or free fluid seen. ABDOMINAL WALL: No significant hernia is appreciated. LYMPH NODES: Normal. VASCULAR: Atherosclerotic changes of abdominal aorta without aneurysmal dilatation. PELVIC VISCERA: Prostate is mildly enlarged. OSSEOUS STRUCTURES: There is grade 1 anterolisthesis L4 over L5. There is loss of L4-5 and L5-S1 disc heights with mild ventral spondylosis. CT/CT abdomen pelvis w IV con IMPRESSION: No acute intra-abdominal process seen. Moderate to significant constipation. Colonic diverticulosis without diverticulitis. Stable right renal stones without hydronephrosis. Fleischner guidelines were followed. Electronically signed by: Rakesh Jean MD 11/11/2024 03:56 PM EDT Dictated By: Rakesh Jean MD Signed By: Electronically signed by Rakesh Jean MD 11/11/24 1556 Radiology Impression Discussion of test interpretation with radiology: I have reviewed the radiologist's reading. Independent Historian Clinical information obtained from an independent historian. History obtained from or confirmed by: EMS (EMS provided additional history and confirmed the history provided by the patient. ) Critical Care Time Critical Care Time Critical Care Time: Yes Total Critical Care Time: 46 Attestation: I spent 46 minutes of Critical Care Time with this patient. This does not include time spent on separately reported billable procedures. Discharge Plan Discharge Clinical Impression: Constipation, COPD exacerbation Patient Disposition: Admitted As Inpatient
--- NOTE | 2024-11-11 12:51 | ECG_ITS ---
Test Reason : dyspnea Blood Pressure : */* mmHG Vent. Rate : 69 BPM Atrial Rate : 69 BPM P-R Int : 158 ms QRS Dur : 88 ms QT Int : 394 ms P-R-T Axes : 30 79 73 degrees QTcB Int : 422 ms Normal sinus rhythm Normal ECG When compared with ECG of 24-Sep-2024 02:14, Criteria for Anterior infarct are no longer Present Referred By: Carly Bustamante Electronically Signed By: YOCASTA GIL
[2024-11-11 13:14] LABS: MANUAL DIFF FLAG NO
[2024-11-11 13:18] LABS: Hematocrit 34.5 % (42.0-52.0); Hemoglobin 10.4 g/dl (14.0-18.0); Imm Gran Abs Auto 0.03 X10*3/uL (0.00-0.03); Imm Gran Pct Auto 0.5 % (0.0-0.4); Lymphocytes Absolute Auto 1.2 X10*3/uL (1.2-4.9); Mean Corpuscular HGB Conc 30.1 g/dl (31.0-36.0); Mean Corpuscular Hemoglobin 27.7 pg (27.0-33.0); Mean Corpuscular Volume 91.8 fL (80.0-98.0); NRBC Abs Auto 0.000 X10*3/uL (0.0-0.012); NRBC Pct Auto 0.0 /100WBC (0.0-0.2); Platelet Count 178 X10*3/uL (160-400); Red Blood Count 3.76 X10*6/uL (4.60-5.80); Venous Blood Gas Refer to POC result; White Blood Count 6.3 X10*3/uL (4.8-10.8)
[2024-11-11 13:19] LABS: VBG HCO3 43 mmol/L (22-26); VBG O2 % Saturation 78.0 %
[2024-11-11] MEDS: levalbuterol HCL 3.75 MG, Ipratropium Bromide 0.5 MG INHALE (13:19)
--- NOTE | 2024-11-11 13:22 | MHC.EDTECH ---
attempted to do ekg pt getting nebu treatment and also a chest x ray.
[2024-11-11 13:27] LABS: INTERNATIONAL NORM RATIO 0.9 (0.9-1.1); Prothrombin Time 10.3 SEC (10.9-12.4)
[2024-11-11 13:41] LABS: Alanine Aminotransferase 14 U/L (0-40); Albumin Level 4.3 g/dL (3.5-5.0); Alkaline Phosphatase 100 U/L (39-117); Anion Gap 10 (12-20); Aspartate Amino Transferase 22 U/L (5-37); Blood Urea Nitrogen 8 mg/dL (9-16); Calcium 8.6 mg/dL (8.4-10.2); Carbon Dioxide 37 mmol/L (22-29); Chloride 97 mmol/L (96-108); Creatinine Clr Calc Pharmacy 86.0; Estimated Glomerular Filt Rate > 60; Magnesium 2.2 mg/dL (1.6-2.6); Potassium 4.2 mmol/L (3.3-5.1); Sodium 140 mmol/L (135-145); Total Protein 7.0 g/dL (6.5-8.0)
[2024-11-11 13:44] LABS: Troponin-I High Sensitivity 3.6 ng/L (<3.5-35.0)
[2024-11-11 13:57] LABS: Resp Syncy Virus RNA Qual PCR NEGATIVE (Negative); SARS COV2 PCR INHOUSE NEGATIVE (Negative)
--- OUTSIDE RECORDS SUMMARY | 2024-11-11 14:05 | XMS_ITS | Clinical Summary ---
Author Organization 175 [facility] Address [address] [place] [address] Phone Care Team Providers Care Cutting Inspector Name Role Phone Anne-Marie Muro MD Primary Care Provider Allergies No known active allergies Medications acetaZOLAMIDE (DIAMOX) 250 mg tablet Take 1 tablet (250 mg total) by mouth 2 (two) times a day. 5 Active albuterol HFA (PROAIR HFA ; PROVENTIL HFA ; VENTOLIN HFA) 90 mcg/actuation inhaler TAKE 2 PUFFS BY MOUTH EVERY 4 TO 6 HOURS NEEDED Active atorvastatin (LIPITOR) 80 mg tablet Take 1 tablet (80 mg total) by mouth at bedtime. 5 Active blood sugar diagnostic (FreeStyle Lite Strips) test strip TEST FASTING GLUCOSE BEFORE MEALS ONCE DAILY 5 Active escitalopram (LEXAPRO) 20 mg tablet Take 1 tablet (20 mg total) by mouth 1 (one) time each day. 5 Active lactulose (CHRONULAC) solution TAKE 15 ML ORALLY 2 TIMES A DAY 5 Active omeprazole (PriLOSEC) [address] capsule TAKE 1 CAPSULE BY MOUTH DAILY AT 0630 5 Active Zithromax 500 mg tablet Take 1 tablet (500 mg total) by mouth 3 (three) times a week. 6 each 5 Active Zithromax 500 mg tablet Take 1 tablet (500 mg total) by mouth 3 (three) times a week for 14 days. 6 each 5 10/16/19 25 Discontinu ed(Reorder ) Zithromax 500 mg tablet Take 1 tablet (500 mg total) by mouth 3 (three) times a week for 14 days. 6 each 5 11/03/19 25 Discontinu ed(Reorder ) Active Problems Patient Care Coordination No te Formatting of this note migh t be different from the original. I have discussed with patient and regarding his overall poor prognosis, advanced care planning was advised. Problem Noted Date Diagnosed Date Acute and chronic respirator y failure with hypoxia ([facility] V24, [facility] V28) 10/06/2024 Type 2 diabetes mellitus wit hout complication, unspecified whether assisted insulin use ([facility] V24, [facility] V28) 10/06/2024 Encounters Date Type Department Care Team Description 11/03/2024 Telephone [facility] [place] [address] [phone] Linnette Marr MD Wheelchair medical necessity form 10/28/2024 Telephone [facility] [place] [address] [phone] Linnette Marr MD DME-[facility] Order 10/12/2024 Telephone [facility] [place] [address] [phone] Linnette Marr MD DME request ([facility]) 10/07/2024 [facility]phone [facility] [address] [phone] Magaly Barnes [place] DME 10/06/2024 11:15 AM EDT Office Visit Pulmon[facility] [address] [phone] Linnette Marr MD Hypoxemia (Primary Dx); Centrilobular emphysema ([facility] V24, [facility] V28); Obstructive sleep apnea; Acute and chronic respiratory failure with hypoxia ([facility] V24, [facility] V28); Type 2 diabetes mellitus without complication, unspecified whether assisted insulin use ([facility] V24, [facility] V28) 10/06/2024 [facility] [address] [phone] Linnette Marr MD dme request [facility] [address] [phone] Linnette Marr MD dme request 09/21[facility]20[facility] [address] [phone] Linnette Marr MD Medical Records from Last 3 Months Surgical History Surgery Date Site/Laterality Comments OTHER [...] Coronary atherosclerosis of unspecified type of vessel, [place] or graft 05/30/2011 DX:Coronary atherosclerosis of unspecified type of vessel, one[place] or graft Family History Medical History Relation Name Comments Other: heart trouble Sister 1 Relation Name Status Comments Sister 1 Sister 2 Social History Tobacco Use Types Packs/Day Years Used Date Smoking Tobacco: Former Cigarettes Q uit: 06/20/2006 Passive Smoke Exposure: Past Smokeless Tobacco: Never Alcohol Use Standard Drinks/Week Comments Not Asked 0 (1 standard drink = 0.6 oz pur e alcohol) Sex and Gender Information Value Date Recorded Sex Assigned at Not on file Legal Sex Male 10:27 PM EST Gender Identity Not on file Sexual Orientation Not on file Obstetrics History Last Filed Vital Signs Vital Sign Reading Time Taken Comments Blood Pressure 100/57 10/06/2024 11:18 AM EDT Pulse 67 10/06/2024 11:18 AM EDT Temperature 35.6 C (96 F) 10/06/2024 11:18 AM EDT Respiratory Rate 17 10/06/2024 11:18 AM EDT Oxygen Saturation 96% 10/06/2024 11:18 AM EDT Inhaled Oxygen Concentration - - Weight 92.6 kg (204 lb 3.2 oz) 10/06/2024 11:18 AM EDT Height 167.6 cm (5' 6 ) 10/06/2024 11:18 AM EDT Body Mass Index 32.96 10/06/2024 11:18 AM EDT Plan of Treatment Upcoming Encounters Date Type Department Care Team (Late st Contact Info) Description 01/06/2025 1:15 PM EDT Office Visit [facility]gy - [place] 175 [facility] [address] [place] [phone] Linnette Marr MD 175 [facility] [address] [place] [address] Health Maintenance Due Date Last Done Comments Diabetes: Annual GFR (Glomerular Filtration Rate) 1950 Diabetes: Annual Foot Exam 01/31/1960 Diabetes: Annual Retina Eye Exam 01/31/1960 DTaP,Tdap,and Td Vaccines (1 - Tdap) 1969 Zoster Vaccines (1 of 2) 01/31/2000 RSV Immunization Adult Patients (1 - Risk 60-74 years 1-dose series) 2010 Pneumococcal Vaccine: 50+ Years (3 of 3 - PCV20 or PCV21) 12/09/2019 12/08/2014, 01/21/2006, 08/29/2005 Abdominal Aortic Aneurysm (AAA) Screen 03/22/2022 Cholesterol Screening (Lipid Panel) 03/22/2022 Falls Risk Assessment 03/22/2022 Hepatitis C Screening 03/22/2022 Medicare Annual Wellness Visit 03/22/2022 Social Influencers of Health Screening 03/22/2022 Diabetes: Annual Urine Albumin-Creatinine Ratio (uACR) 03/23/2022 Diabetes: Blood Sugar Control Test (HGBA1C) 03/23/2022 Hypertension/CHF/CAD Annual BMP Blood Test 03/23/2022 COVID-19 Vaccine ( season) 2023 Depression Screening 04/08/2024 Influenza Vaccine (#1) 2024 9, 01/20/2018, 01/03/2017, Additional history exists Colorectal Cancer Screening: FIT-DNA (Cologuard) 01/22/2027 01/23/2024, 01/23/2024 HIB Vaccines Aged Out No longer eligi [...] to complete this topic RSV Immunization Patients Under 20 months Aged Out No longer eligible based on patient's age to complete this topic Varicella Vaccines Aged Out No longer eligible based on patient's age to complete this topic Insurance MEDICARE [facility] Advance Directives Documents on File Type Date Recorded Patient Lamp Wirer Expl anation Health Care Decision (hx) 11/09/2023 AD MCDERMOTT DIRECTIVE Health Care Decision (hx) 11/07/2023 AD MCDERMOTT DIRECTIVE Care Teams Cutting Inspector Relationship Specialty Start Date End Date Anne-Marie Muro MD [address] [place] [address] PCP - General Internal Medicine 04/08/11
[2024-11-11 14:14] LABS: Ammonia 39 umol/L (13-55)
[2024-11-11] MEDS: iohexoL 350 MG/ML 100 ML INFUS..BTL IV (15:15)
--- NOTE | 2024-11-11 16:59 | PM.IMHP ---
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 He was hospitalized from 09/24/24-09/30/24 for acute hypoxic respiratory failure secondary to acute COPD exacerbation with sepsis and bronchitis. He endorses a 7-8 pound weight increase in the last month. He has a cough that produces mucus every so often but denies any blood in the mucus. He denies fever, chills, chest pain, nausea, vomiting, diarrhea, changes to urination. He has not traveled recently and has had no sick contacts. Chest x-ray failed to demonstrate an infiltrate. Abdominal pelvis CTA demonstrates a large stool burden Review of Systems Review of Systems: Denies chest pain Denies shortness of breath Denies nausea vomiting diarrhea Denies fever chills [facility] Medical History (Updated 11/11/24 @ 17:02 by Gualberto Baig DO) HTN (hypertension) History of adenomatous polyp of colon Acute on chronic respiratory failure with hypoxia and hypercapnia Positive colorectal cancer screening using Cologuard test Respiratory failure with hypoxia and hypercapnia Bilateral carotid artery disease CAD (coronary artery disease) Anxiety and depression Anemia Chronic respiratory failure with hypoxia and hypercapnia Radiation fibrosis of lung Dyslipidemia History of pneumonia Bacteremia due to Enterococcus COPD, severe Diabetes mellitus with hyperglycemia, without long-term current use of insulin Urinary incontinence Asthma Lung cancer Skin cancer Family History Father Medical history non-contributory Mother Medical history non-contributory Unknown family medical history Lung collapse Brother No problems noted. Brother No problems noted. Son Substance use disorder Son No problems noted. Daughter No problems noted. Sister No problems noted. Sister No problems noted. Sister No problems noted. Sister No problems noted. Other HTN (hypertension) Surgical History Hx of heart artery stent History of esophagogastroduodenoscopy (EGD) Hx of colonoscopy Social History Household Members: Spouse Household Members Other:: grandson Housing: House Are you a primary workforce investment act career manager to a significant other at home: No Do you presently have visiting nurse or other home services: No Alcohol intake: never Comment: pt refuses non skid socks Patient Tobacco Use Status: Former Tobacco user Tobacco use type: Cigarette Smoked in Last 30 Days: No e-Cigarette/Vaping Use: Never Used Use of substances other than those prescribed or required for medical reasons: No Advance Directives: Yes Advance Directives on File: Yes Advance Directives Date on File: 06/08/22 service: No Current occupational status: retired Cognitive needs: No Hearing needs: No Vision needs: No Meds Allergies Allergy/AdvReac Type Severity Reaction Status Date / Time fluticasone furoate (From Allergy Intermediate Rash Verified 11/11/24 12:54 Trelegy Ellipta) vilanterol (From Trelegy Allergy Intermediate Rash Verified 11/11/24 12:54 Ellipta) umeclidinium (Incruse Allergy Unknown Hives Verified 11/11/24 12:54 Ellipta) furosemide (From Lasix) AdvReac Intermediate Hallucinati Verified 11/11/24 12:54 ons Active Medications: Current Medications Acetaminophen (Acetaminophen 325 Mg Tablet) 650 mg PO Q6H PRN PRN Reason: Pain, Mild 1-3,fever,headache Calcium Carbonate (Calcium Carbonate 750 Mg Tab.Chew) 750 mg PO Q4H PRN PRN Reason: Heartburn Magnesium Hydroxide (Milk Of Magnesia 30 Ml Oral.Susp) 30 ml PO DAILY PRN PRN Reason: Constipation Melatonin (Melatonin 3 Mg Tablet) 6 mg PO BEDTIME PRN PRN Reason: Insomnia Ondansetron HCl (Ondansetron Hcl 4 Mg/2 Ml Vial) 4 mg IVPUSH Q8H PRN PRN Reason: Nausea and Vomiting Sodium Chloride (0.9 % Sodium Chloride Flush 3 Ml Syringe) [facility] Medications ?Medication ?Instructions ?Recorded ?Confirmed ?Last Taken ?Type budesonide-formoterol HFA 160 2 puff inhalation DAILY 03/14/21 10/08/24 09/23/24 21:00 History mcg-4.5 mcg/actuation aerosol inhaler (Symbicort) calcium 600 mg (as 1 tab PO DAILY 08/04/21 10/08/24 09/23/24 21:00 History carbonate)-vitamin D3 10 mcg (400 unit) tablet Oxygen Home Use 06/14/22 10/08/24 Unknown History bisacodyl 5 mg tablet,delayed 10 mg PO DAILY PRN constipation 06/16/24 10/08/24 09/23/24 21:00 History release (Laxative (bisacodyl)) albuterol sulfate 90 mcg/actuation 2 puff inhalation Q4H PRN 09/24/24 10/08/24 09/23/24 21:00 History aerosol inhaler (Ventolin HFA) shortness of breath or wheezing sennosides 8.6 mg tablet (senna) 17.2 mg PO BID 11/11/24 11/11/24 Unknown History Physical Exam Vital Signs and Narrative: Vital Signs: Last Vital Signs Temp 97.9 F 11/11/24 15:05 Pulse 75 11/11/24 15:05 Resp 14 11/11/24 15:05 BP 106/52 L 11/11/24 15:05 Pulse Ox 97 11/11/24 15:05 O2 Del Method Nasal Cannula 11/11/24 15:05 O2 Flow Rate 2 11/11/24 15:05 Oxygen Flow Rate 3 11/11/24 12:46 BMI result Body Mass Index 33.6 Const: Other: Awake alert no acute distress able to speak in full sentences Resp: Other: Diminished throughout with scattered expiratory wheezes Cardio: Other: No S4; positive S1-S2; no S3 murmurs rubs or gallops GI: Other: Soft nontender nondistended normoactive bowel sounds Extrem: Other: No edema bilaterally Results Labs 11/11/24 13:07 11/11/24 13:07 Labs: Laboratory Results - last 24 hr 11/11/24 11/11/24 11/11/24 13:07 13:15 13:55 MCV 91.8 MCH 27.7 MCHC 30.1 L RDW 14.3 Plt Count 178 MPV 10.2 Immature Gran % (Auto) 0.5 H Neut % (Auto) 66.5 Lymph % (Auto) 18.5 L Canadian % (Auto) 10.6 Eos % (Auto) 3.3 Baso % (Auto) 0.6 Lymph # (Auto) 1.2 Canadian # (Auto) 0.7 Eos # (Auto) 0.2 Baso # (Auto) 0.0 Abs Immat Gran (auto) 0.03 Absolute Neuts (auto) 4.2 Absolute Nucleated RBC 0.000 Nucleated RBC % (auto) 0.0 PT 10.3 L INR 0.9 VBG pH 7.36 VBG pCO2 74 VBG pO2 49 VBG HCO3 43 H VBG O2 Saturation 78.0 VBG Base Excess 14.6 Anion Gap 10 L Estim Creat Clear Calc 86.0 Estimated GFR > 60 Random Glucose 243 H Calcium 8.6 Magnesium 2.2 Total Bilirubin 0.3 AST 22 ALT 14 Alkaline Phosphatase 100 Ammonia 39 Total Protein 7.0 Albumin 4.3 Influenza Type A (PCR) NEGATIVE Influenza Type B (PCR) NEGATIVE RSV RNA Qual (PCR) NEGATIVE SARS-CoV-2 RNA (RT-PCR) NEGATIVE Imaging Radiologist's Impressions: Impressions Chest X-Ray 11/11/24 12:17 IMPRESSION: 1. Stable scarring left apex and upper left lung with loss of volume. Unchanged appearance since 06/15/2024. 2. Right lung is clear. Electronically signed by: Yan Mcqueen MD 11/11/2024 01:34 PM EDT RP Abdomen/Pelvis CT 11/11/24 15:14 IMPRESSION: No acute intra-abdominal process seen. Moderate to significant constipation. Colonic diverticulosis without diverticulitis. Stable right renal stones without hydronephrosis. Fleischner guidelines were followed. Electronically signed by: Rakesh Jean MD 11/11/2024 03:56 PM EDT RP Assessment and Plan (1) Acute exacerbation of COPD with asthma: Status: Acute (2) Diabetes mellitus with hyperglycemia, without long-term current use of insulin: Qualifiers: Diabetes mellitus type: type 2 Qualified Code(s): E11.65 - Type 2 diabetes mellitus with hyperglycemia Status: Acute Plan 74-year-old male with past medical history of lung cancer status post chemo and radiation and chronic respiratory failure 3 L oxygen at home presents with worsening shortness of breath over the last 2 weeks. Recently hospitalized 619 through 09/30/2024 for same at. He endorses as slight weight gain of 7 8 lb over the last month he has productive cough. Workup including chest x-ray failed to demonstrate an acute infiltrate however did demonstrate a large stool burden 1.COPD exacerbation -ceftriaxone/azithromycin (1) -methylprednisolone 60 mg IV q.6 hours -DuoNebs q.4 hours while awake -titrate O2 to maintain sats greater than or equal to 92% 2. Diabetes type 2 -acceptable control on current therapies -continue outpatient therapies -lispro correctional scale -adjust as indicated 3. CAD -stable and well compensated Full code Lovenox Patient will require 2 midnights going forward of inpatient stay for IV antibiotics and steroids to treat COPD exacerbation. This can not be achieved a lesser acute setting Quality Stroke Does the patient have a stroke diagnosis?: No VTE Prior VTE?: No VTE Risk Level:: Medical - moderate - high VTE Device Contraindication: Treatment Not Indicated VTE Drug Contraindication: N/A - Med Ordered
--- NOTE | 2024-11-11 18:50 | PHA.MEDREC ---
Addendum entered by Rene Vasquez PharmD 11/11/24 19:02: reviewed Original Note: Pharmacy Consult ? Medication Reconciliation Pharmacy has completed the medication reconciliation. Patient is a poor historian. Spoke to Patients over the phone to confirm med list. confirmed Azithromycin 3XW Saturday, Saturday and Saturday, Lorazepam 0.5 mg (1/2 of 1 mg) BID. Patient had all his morning medications today.
[2024-11-12] VITALS (15 sets, daily range): BP systolic 100–143; BP diastolic 49–83; PULSE 62–96; RESP 15–30; TEMP 36.5–36.7; O2SAT 88–98
[2024-11-12 00:27] LABS: Glucose, Whole Blood 327 mg/dL (60-115)
[2024-11-12 05:13] LABS: MANUAL DIFF FLAG NO
[2024-11-12 05:15] LABS: Hematocrit 36.3 % (42.0-52.0); Hemoglobin 10.8 g/dl (14.0-18.0); Imm Gran Abs Auto 0.03 X10*3/uL (0.00-0.03); Imm Gran Pct Auto 0.5 % (0.0-0.4); Lymphocytes Absolute Auto 0.6 X10*3/uL (1.2-4.9); Mean Corpuscular HGB Conc 29.8 g/dl (31.0-36.0); Mean Corpuscular Hemoglobin 27.3 pg (27.0-33.0); Mean Corpuscular Volume 91.9 fL (80.0-98.0); NRBC Abs Auto 0.000 X10*3/uL (0.0-0.012); NRBC Pct Auto 0.0 /100WBC (0.0-0.2); Platelet Count 202 X10*3/uL (160-400); Red Blood Count 3.95 X10*6/uL (4.60-5.80); White Blood Count 6.5 X10*3/uL (4.8-10.8)
[2024-11-12 05:38] LABS: Alanine Aminotransferase 15 U/L (0-40); Albumin Level 4.5 g/dL (3.5-5.0); Alkaline Phosphatase 109 U/L (39-117); Anion Gap 13 (12-20); Aspartate Amino Transferase 21 U/L (5-37); Blood Urea Nitrogen 16 mg/dL (9-16); Calcium 9.4 mg/dL (8.4-10.2); Carbon Dioxide 34 mmol/L (22-29); Chloride 94 mmol/L (96-108); Creatinine Clr Calc Pharmacy 92.9; Estimated Glomerular Filt Rate > 60; Potassium 4.7 mmol/L (3.3-5.1); Sodium 136 mmol/L (135-145); Total Protein 7.5 g/dL (6.5-8.0)
[2024-11-12] MEDS: Albuterol/Iprat 2.5/0.5MG 3 ML AMPUL.NEB INHALE (06:28)
[2024-11-12] MEDS: Calcium + Vitamin D 250 MG TABLET 500 MG PO (08:10)
[2024-11-12] MEDS: 0.9 % Sodium Chloride Flush 3 ML SYRINGE IVFLUSH ×3 (08:26→20:01)
[2024-11-12 12:04] LABS: Glucose, Whole Blood 280 mg/dL (60-115)
--- NOTE | 2024-11-12 15:18 | HO.PM.IMPN ---
Subjective Subjective Date of Service: 11/12/24 Interval History: Slowly improving with therapies. No acute issues overnight Review of Systems Denies chest pain Denies shortness of breath Denies nausea vomiting diarrhea Denies fever chills Physical Exam Vital Signs: Vital Signs: Last Vital Signs Temp 98.0 F 11/12/24 14:28 Pulse 85 11/12/24 14:28 Resp 20 11/12/24 14:28 BP 133/60 11/12/24 14:28 Pulse Ox 90 L 11/12/24 14:28 O2 Del Method Nasal Cannula 11/12/24 14:28 O2 Flow Rate 2 11/12/24 14:28 Oxygen Flow Rate 3 11/11/24 12:46 BMI result Body Mass Index 33.6 Const: Other: Awake alert no acute distress able to speak in full sentences Resp: Other: Diminished throughout with scattered expiratory wheezes Cardio: Other: No S4; positive S1-S2; no S3 murmurs rubs or gallops GI: Other: Soft nontender nondistended normoactive bowel sounds Extrem: Other: No edema bilaterally Objective Data Active Medications Acetaminophen (Acetaminophen 325 Mg Tablet) 650 mg PO Q6H PRN PRN Reason: Pain, Mild 1-3,fever,headache Aspirin (Aspirin 81 Mg Tab.Chew) 81 mg PO DAILY [facility] Last Admin: 11/12/24 08:10 Dose: 81 mg Documented By: DORIAN Atorvastatin Calcium (Atorvastatin Calcium 80 Mg Tablet) 80 mg PO BEDTIME [facility] Bisacodyl (Bisacodyl 5 Mg Tablet.Dr) 10 mg PO DAILY PRN PRN Reason: Constipation Calcium Carbonate (Calcium Carbonate 750 Mg Tab.Chew) 750 mg PO Q4H PRN PRN Reason: Heartburn Calcium Carbonate/Cholecalciferol (Calcium + Vitamin D 250 Mg Tablet) 500 mg PO DAILY [facility] Last Admin: 11/12/24 08:10 Dose: 500 mg Documented By: DORIAN Dextrose (Dextrose 50 % 25 Gm/50 Ml Syringe) 25 gm IVPUSH Q15M PRN; Protocol PRN Reason: per Hypoglycemia Standing Ord. Escitalopram Oxalate (Escitalopram Oxalate 20 Mg Tablet) 20 mg PO DAILY [facility] Last Admin: 11/12/24 08:11 Dose: 20 mg Documented By: DORIAN Glipizide (Glipizide 5 Mg Tablet) 5 mg PO BID [facility] Last Admin: 11/12/24 10:35 Dose: 5 mg Documented By: DORIAN Glucose (Glucose Gel 15 Gm Gel..Gram.) 15 gm PO Q15M PRN; Protocol PRN Reason: per Hypoglycemia Standing Ord. Insulin Human Lispro (Insulin Lispro 100 Unit/Ml 3 Ml Vial) 0 unit SUBCUT QIDACHS [facility]; Protocol Last Admin: 11/12/24 13:23 Dose: 6 unit Documented By: NATHANIEL-TYRA Lactulose (Lactulose 20 Gm/30 Ml Solution) 10 gm PO BID PRN PRN Reason: Constipation Lactulose (Lactulose 20 Gm/30 Ml Solution) 30 gm PO DAILY [facility] Last Admin: 11/12/24 10:00 Dose: 30 gm Documented By: DORIAN Lorazepam (Lorazepam 0.5 Mg Tablet) 0.5 mg PO BID PRN PRN Reason: Anxiety Last Admin: 11/11/24 22:09 Dose: 0.5 mg Documented By: GABRIELLE Magnesium Hydroxide (Milk Of Magnesia 30 Ml Oral.Susp) 30 ml PO DAILY PRN PRN Reason: Constipation Melatonin (Melatonin 3 Mg Tablet) 6 mg PO BEDTIME PRN PRN Reason: Insomnia Metformin HCl (Metformin Hcl 1,000 Mg Tablet) 1,000 mg PO BID [facility] Last Admin: 11/12/24 10:35 Dose: 1,000 mg Documented By: DORIAN Methylprednisolone Sodium Succinate (Methylprednisolone Sod Succ 125 Mg/2 Ml Vial) 60 mg IVPUSH Q6H [facility] Last Admin: 11/12/24 10:01 Dose: 60 mg Documented By: DORIAN Metoprolol Tartrate (Metoprolol Tartrate 25 Mg Tablet) 25 mg PO BID [facility]; Protocol Last Admin: 11/12/24 08:10 Dose: 25 mg Documented By: DORIAN Non-Formulary Medication (Budesonide-Formoterol [Symbicort]) 2 puff INHALE DAILY [facility] Omeprazole (Omeprazole 20 Mg Capsule.) 20 mg PO DAILY@0630 [facility] Last Admin: 11/12/24 06:11 Dose: 20 mg Documented By: BECCA Ondansetron HCl (Ondansetron Hcl 4 Mg/2 Ml Vial) 4 mg IVPUSH Q8H PRN PRN Reason: Nausea and Vomiting Senna (Sennosides 8.6 Mg Tablet) 17.2 mg PO BID [facility] Last Admin: 11/12/24 08:10 Dose: 17.2 mg Documented By: DORIAN Sodium Chloride (0.9 % Sodium Chloride Flush 3 Ml Syringe) 3 ml IVFLUSH QSHIFT [facility] Last Admin: 11/12/24 08:26 Dose: 3 ml Documented By: DORIAN Labs 11/12/24 04:45 11/12/24 04:45 Labs: Laboratory Results - last 24 hr 11/11/24 11/12/24 11/12/24 13:15 00:23 04:45 MCV 91.9 MCH 27.3 MCHC 29.8 L RDW 14.1 Plt Count 202 MPV 10.9 Immature Gran % (Auto) 0.5 H Neut % (Auto) 83.2 H Lymph % (Auto) 9.2 L [place] % (Auto) 6.9 Eos % (Auto) 0.0 Baso % (Auto) 0.2 Lymph # (Auto) 0.6 L [place] # (Auto) 0.5 Eos # (Auto) 0.0 Baso # (Auto) 0.0 Abs Immat Gran (auto) 0.03 Absolute Neuts (auto) 5.4 Absolute Nucleated RBC 0.000 Nucleated RBC % (auto) 0.0 VBG pH 7.36 VBG pCO2 74 VBG pO2 49 VBG HCO3 43 H VBG O2 Saturation 78.0 VBG Base Excess 14.6 Anion Gap 13 Estim Creat Clear Calc 92.9 Estimated GFR > 60 POC Glucose 327 H Random Glucose 277 H Calcium 9.4 D Total Bilirubin 0.4 AST 21 ALT 15 Alkaline Phosphatase 109 Total Protein 7.5 Albumin 4.5 11/12/24 11:57 MCV MCH MCHC RDW Plt Count MPV Immature Gran % (Auto) Neut % (Auto) Lymph % (Auto) [place] % (Auto) Eos % (Auto) Baso % (Auto) Lymph # (Auto) [place] # (Auto) Eos # (Auto) Baso # (Auto) Abs Immat Gran (auto) Absolute Neuts (auto) Absolute Nucleated RBC Nucleated RBC % (auto) VBG pH VBG pCO2 VBG pO2 VBG HCO3 VBG O2 Saturation VBG Base Excess Anion Gap Estim Creat Clear Calc Estimated GFR POC Glucose 280 H Random Glucose Calcium Total Bilirubin AST ALT Alkaline Phosphatase Total Protein Albumin Assessment and Plan (1) Acute exacerbation of COPD with asthma: Status: Acute Plan 74-year-old male with past medical history of lung cancer status post chemo and radiation and chronic respiratory failure 3 L oxygen at home presents with worsening shortness of breath over the last 2 weeks. Recently hospitalized 619 through 09/30/2024 for same at. He endorses as slight weight gain of 7 8 lb over the last month he has productive cough. Workup including chest x-ray failed to demonstrate an acute infiltrate however did demonstrate a large stool burden 1.COPD exacerbation -ceftriaxone/azithromycin (2) -methylprednisolone 60 mg IV q.6 hours -DuoNebs q.4 hours while awake -titrate O2 to maintain sats greater than or equal to 92% 2. Diabetes type 2 -acceptable control on current therapies -continue outpatient therapies -lispro correctional scale -adjust as indicated 3. CAD -stable and well compensated Full code Lovenox Requires ongoing hospitalization for IV antibiotics and steroids to treat COPD exacerbation Quality Stroke Does the patient have a stroke diagnosis?: No VTE Prior VTE?: No VTE Risk Level:: Medical - moderate - high VTE Device Contraindication: Treatment Not Indicated VTE Drug Contraindication: N/A - Med Ordered
[2024-11-12 17:10] LABS: Glucose, Whole Blood 190 mg/dL (60-115)
[2024-11-12] MEDS: levalbuterol HCL 2.5 MG, Ipratropium Bromide 0.5 MG INHALE ×2 (17:32→23:56)
[2024-11-12 20:37] LABS: Glucose, Whole Blood 250 mg/dL (60-115)
[2024-11-13] VITALS (8 sets, daily range): BP systolic 112–121; BP diastolic 53–60; PULSE 77–84; RESP 16–20; TEMP 35.9–36.9; O2SAT 91–96
[2024-11-13] MEDS: levalbuterol HCL 2.5 MG, Ipratropium Bromide 0.5 MG INHALE ×3 (06:18→23:04)
[2024-11-13 07:14] LABS: Glucose, Whole Blood 243 mg/dL (60-115)
[2024-11-13] MEDS: Calcium + Vitamin D 250 MG TABLET 500 MG PO (08:02)
--- NOTE | 2024-11-13 09:29 | MHC.CM.PN ---
IMM delivered. Patient lives in a home w/ . Functionally independent. Uses home O2, 3L @ baseline, supplied by [facility]. PCP Anne-Marie Muro MD HCP on file and verified, [facility] is [facility]. DP: Goal is home self care, not interested in any home services, to transport. CM will continue to follow.
[2024-11-13 11:11] LABS: Glucose, Whole Blood 446 mg/dL (60-115)
[2024-11-13 11:11] LABS: Glucose, Whole Blood 415 mg/dL (60-115)
--- NOTE | 2024-11-13 12:16 | HO.PM.IMPN ---
Subjective Subjective Date of Service: 11/13/24 Interval History: Slowly improving. Voice stronger today Review of Systems Denies chest pain Denies shortness of breath Denies nausea vomiting diarrhea Denies fever chills Physical Exam Vital Signs: Vital Signs: Last Vital Signs Temp 98.0 F 11/13/24 07:07 Pulse 81 11/13/24 07:07 Resp 17 11/13/24 07:07 BP 112/56 L 11/13/24 07:07 Pulse Ox 95 11/13/24 07:07 O2 Del Method Nasal Cannula 11/13/24 07:07 O2 Flow Rate 3 11/13/24 07:07 Oxygen Flow Rate 3 11/11/24 12:46 BMI result Body Mass Index 33.6 Const: Other: Awake alert no acute distress able to speak in full sentences Resp: Other: Diminished throughout with scattered expiratory wheezes Cardio: Other: No S4; positive S1-S2; no S3 murmurs rubs or gallops GI: Other: Soft nontender nondistended normoactive bowel sounds Extrem: Other: No edema bilaterally Objective Data Active Medications Acetaminophen (Acetaminophen 325 Mg Tablet) 650 mg PO Q6H PRN PRN Reason: Pain, Mild 1-3,fever,headache Aspirin (Aspirin 81 Mg Tab.Chew) 81 mg PO DAILY [facility] Last Admin: 11/13/24 08:02 Dose: 81 mg Documented By: GERRY Atorvastatin Calcium (Atorvastatin Calcium 80 Mg Tablet) 80 mg PO BEDTIME [facility] Last Admin: 11/12/24 20:00 Dose: 80 mg Documented By: EFRAÍN Bisacodyl (Bisacodyl 5 Mg Tablet.Dr) 10 mg PO DAILY PRN PRN Reason: Constipation Calcium Carbonate (Calcium Carbonate 750 Mg Tab.Chew) 750 mg PO Q4H PRN PRN Reason: Heartburn Calcium Carbonate/Cholecalciferol (Calcium + Vitamin D 250 Mg Tablet) 500 mg PO DAILY [facility] Last Admin: 11/13/24 08:02 Dose: 500 mg Documented By: GERRY Levalbuterol HCl 2.5 mg/ (Ipratropium [place] 0.5 mg) 0 mg INHALE Q6H [facility] Last Admin: 11/13/24 11:56 Dose: Not Given Documented By: FUENTES Non-Admin Reason: pt eating, RT called to PACU Dextrose (Dextrose 50 % 25 Gm/50 Ml Syringe) 25 gm IVPUSH Q15M PRN; Protocol PRN Reason: per Hypoglycemia Standing Ord. Escitalopram Oxalate (Escitalopram Oxalate 20 Mg Tablet) 20 mg PO DAILY [facility] Last Admin: 11/13/24 08:02 Dose: 20 mg Documented By: GERRY Glipizide (Glipizide 5 Mg Tablet) 5 mg PO BID [facility] Last Admin: 11/13/24 08:02 Dose: 5 mg Documented By: GERRY Glucose (Glucose Gel 15 Gm Gel..Gram.) 15 gm PO Q15M PRN; Protocol PRN Reason: per Hypoglycemia Standing Ord. Insulin Human Lispro (Insulin Lispro 100 Unit/Ml 3 Ml Vial) 0 unit SUBCUT QIDACHS [facility]; Protocol Last Admin: 11/13/24 11:19 Dose: 10 unit Documented By: CARMEN Lactulose (Lactulose 20 Gm/30 Ml Solution) 10 gm PO BID PRN PRN Reason: Constipation Lactulose (Lactulose 20 Gm/30 Ml Solution) 30 gm PO DAILY [facility] Last Admin: 11/13/24 08:02 Dose: 30 gm Documented By: GERRY Lorazepam (Lorazepam 0.5 Mg Tablet) 0.5 mg PO BID PRN PRN Reason: Anxiety Last Admin: 11/13/24 09:15 Dose: 0.5 mg Documented By: GERRY Magnesium Hydroxide (Milk Of Magnesia 30 Ml Oral.Susp) 30 ml PO DAILY PRN PRN Reason: Constipation Melatonin (Melatonin 3 Mg Tablet) 6 mg PO BEDTIME PRN PRN Reason: Insomnia Metformin HCl (Metformin Hcl 1,000 Mg Tablet) 1,000 mg PO BID [facility] Last Admin: 11/13/24 08:02 Dose: 1,000 mg Documented By: GERRY Methylprednisolone Sodium Succinate (Methylprednisolone Sod Succ 125 Mg/2 Ml Vial) 60 mg IVPUSH Q6H [facility] Last Admin: 11/13/24 08:02 Dose: 60 mg Documented By: GERRY Metoprolol Tartrate (Metoprolol Tartrate 25 Mg Tablet) 25 mg PO BID [facility]; Protocol Last Admin: 11/13/24 08:02 Dose: 25 mg Documented By: GERRY Non-Formulary Medication (Budesonide-Formoterol [Symbicort]) 2 puff INHALE DAILY [facility] Omeprazole (Omeprazole 20 Mg Capsule.Dr) 20 mg PO DAILY@0630 [facility] Last Admin: 11/13/24 05:21 Dose: 20 mg Documented By: EFRAÍN Ondansetron HCl (Ondansetron Hcl 4 Mg/2 Ml Vial) 4 mg IVPUSH Q8H PRN PRN Reason: Nausea and Vomiting Senna (Sennosides 8.6 Mg Tablet) 17.2 mg PO BID [facility] Last Admin: 11/13/24 08:02 Dose: 17.2 mg Documented By: GERRY Sodium Chloride (0.9 % Sodium Chloride Flush 3 Ml Syringe) 3 ml IVFLUSH QSHIFT [facility] Last Admin: 11/13/24 08:03 Dose: Not Given Documented By: GERRY Non-Admin Reason: Previously Administered Labs 11/12/24 04:45 11/12/24 04:45 Labs: Laboratory Results - last 24 hr 11/12/24 11/12/24 11/13/24 17:06 20:33 07:09 POC Glucose 190 H 250 H 243 H 11/13/24 11/13/24 11:05 11:07 POC Glucose 446 H* 415 H* Assessment and Plan (1) Acute exacerbation of COPD with asthma: Status: Acute (2) Diabetes mellitus with hyperglycemia, without long-term current use of insulin: Status: Acute (3) HTN (hypertension): Status: Acute Plan 74-year-old male with past medical history of lung cancer status post chemo and radiation and chronic respiratory failure 3 L oxygen at home presents with worsening shortness of breath over the last 2 weeks. Recently hospitalized 619 through 09/30/2024 for same at. He endorses as slight weight gain of 7 8 lb over the last month he has productive cough. Workup including chest x-ray failed to demonstrate an acute infiltrate however did demonstrate a large stool burden 1.COPD exacerbation -ceftriaxone/azithromycin (3) -methylprednisolone 60 mg IV q.6 hours -DuoNebs q.4 hours while awake -titrate O2 to maintain sats greater than or equal to 92% 2. Diabetes type 2 -sugars rising and response to steroids -continue outpatient therapies -lispro correctional scale -adjust as indicated 3. CAD -stable and well compensated Full code Lovenox Requires ongoing hospitalization for IV antibiotics and steroids to treat COPD exacerbation Quality Stroke Does the patient have a stroke diagnosis?: No VTE Prior VTE?: No VTE Risk Level:: Medical - moderate - high VTE Device Contraindication: Treatment Not Indicated VTE Drug Contraindication: N/A - Med Ordered
[2024-11-13] MEDS: 0.9 % Sodium Chloride Flush 3 ML SYRINGE IVFLUSH ×2 (15:48→21:28)
[2024-11-13 16:23] LABS: Glucose, Whole Blood 41 mg/dL (60-115)
[2024-11-13 16:49] LABS: Glucose, Whole Blood 120 mg/dL (60-115)
--- NOTE | 2024-11-13 16:52 | PC.NURSE ---
At 1630 POC came back as 41. Pt awake and alert, but feels dizzy. MD notified. Per protocol given two juices and rechecked POC 15 minutes later. POC after 15 minutes was 121. Patient feels better. No insulin given by this RN.
[2024-11-13 21:15] LABS: Glucose, Whole Blood 252 mg/dL (60-115)
--- NOTE | 2024-11-13 21:30 | PC.NURSE ---
0: Dr. Riddle made aware of patients Blood sugar spike and fall during the day,, and informed about getting 6units of SS, and glipzide, Dr. Riddle d/c'd Glipizide, and gave the ok to give metformin with SS. 0: pt requested Blood sugar to get rechecked to make sure it is not low like before, POC; 329. Dr. Riddle made aware, no new orders at this time, will continue to monitor, at this time pt is resting quietly with eyes closed, in no apparent distress.
[2024-11-14] VITALS (8 sets, daily range): BP systolic 102–138; BP diastolic 50–76; PULSE 66–103; RESP 16–18; TEMP 36.1–36.4; O2SAT 91–96
[2024-11-14 00:13] LABS: Glucose, Whole Blood 329 mg/dL (60-115)
[2024-11-14 07:38] LABS: Glucose, Whole Blood 234 mg/dL (60-115)
[2024-11-14] MEDS: Calcium + Vitamin D 250 MG TABLET 500 MG PO (08:06)
[2024-11-14] MEDS: 0.9 % Sodium Chloride Flush 3 ML SYRINGE IVFLUSH ×3 (08:14→20:35)
[2024-11-14 08:17] LABS: MANUAL DIFF FLAG NO
[2024-11-14 08:23] LABS: Hematocrit 33.7 % (42.0-52.0); Hemoglobin 10.4 g/dl (14.0-18.0); Imm Gran Abs Auto 0.06 X10*3/uL (0.00-0.03); Imm Gran Pct Auto 0.7 % (0.0-0.4); Lymphocytes Absolute Auto 0.7 X10*3/uL (1.2-4.9); Mean Corpuscular HGB Conc 30.9 g/dl (31.0-36.0); Mean Corpuscular Hemoglobin 27.4 pg (27.0-33.0); Mean Corpuscular Volume 88.9 fL (80.0-98.0); NRBC Abs Auto 0.000 X10*3/uL (0.0-0.012); NRBC Pct Auto 0.0 /100WBC (0.0-0.2); Platelet Count 198 X10*3/uL (160-400); Red Blood Count 3.79 X10*6/uL (4.60-5.80); White Blood Count 8.4 X10*3/uL (4.8-10.8)
[2024-11-14 09:02] LABS: Alanine Aminotransferase 14 U/L (0-40); Albumin Level 4.4 g/dL (3.5-5.0); Alkaline Phosphatase 94 U/L (39-117); Anion Gap 16 (12-20); Aspartate Amino Transferase 28 U/L (5-37); Blood Urea Nitrogen 28 mg/dL (9-16); Calcium 9.3 mg/dL (8.4-10.2); Carbon Dioxide 36 mmol/L (22-29); Chloride 89 mmol/L (96-108); Creatinine Clr Calc Pharmacy 77.4; Estimated Glomerular Filt Rate > 60; Potassium 4.8 mmol/L (3.3-5.1); Sodium 136 mmol/L (135-145); Total Protein 7.1 g/dL (6.5-8.0)
--- NOTE | 2024-11-14 10:17 | PC.NURSE ---
Pt c/o feeling dizzy worst when Lying down . VSS see flowsheet BS see chart . Md Baig notified no new treatment
[2024-11-14 10:18] LABS: Glucose, Whole Blood 276 mg/dL (60-115)
[2024-11-14] MEDS: levalbuterol HCL 2.5 MG, Ipratropium Bromide 0.5 MG INHALE ×2 (11:01→17:42)
[2024-11-14 11:19] LABS: Glucose, Whole Blood 260 mg/dL (60-115)
--- NOTE | 2024-11-14 13:16 | HO.PM.IMPN ---
Subjective Subjective Date of Service: 11/14/24 Interval History: No acute issues overnight. Continues to be short of breath with minimal exertion Review of Systems Denies chest pain Denies shortness of breath Denies nausea vomiting diarrhea Denies fever chills Physical Exam Vital Signs: Vital Signs: Last Vital Signs Temp 96.9 F 11/14/24 07:20 Pulse 66 11/14/24 11:03 Resp 16 11/14/24 11:03 BP 136/60 11/14/24 10:15 Pulse Ox 96 11/14/24 10:15 O2 Del Method Nasal Cannula 11/14/24 10:15 O2 Flow Rate 3 11/14/24 10:15 Oxygen Flow Rate 3 11/11/24 12:46 BMI result Body Mass Index 33.6 Const: Other: Awake alert no acute distress able to speak in full sentences Resp: Other: Diminished throughout with scattered expiratory wheezes Cardio: Other: No S4; positive S1-S2; no S3 murmurs rubs or gallops GI: Other: Soft nontender nondistended normoactive bowel sounds Extrem: Other: No edema bilaterally Objective Data Active Medications Acetaminophen (Acetaminophen 325 Mg Tablet) 650 mg PO Q6H PRN PRN Reason: Pain, Mild 1-3,fever,headache Aspirin (Aspirin 81 Mg Tab.Chew) 81 mg PO DAILY [facility] Last Admin: 11/14/24 08:06 Dose: 81 mg Documented By: PEYTON Atorvastatin Calcium (Atorvastatin Calcium 80 Mg Tablet) 80 mg PO BEDTIME [facility] Last Admin: 11/13/24 21:22 Dose: 80 mg Documented By: MAKENZIE Bisacodyl (Bisacodyl 5 Mg Tablet.Dr) 10 mg PO DAILY PRN PRN Reason: Constipation Calcium Carbonate (Calcium Carbonate 750 Mg Tab.Chew) 750 mg PO Q4H PRN PRN Reason: Heartburn Calcium Carbonate/Cholecalciferol (Calcium + Vitamin D 250 Mg Tablet) 500 mg PO DAILY [facility] Last Admin: 11/14/24 08:06 Dose: 500 mg Documented By: PEYTON Levalbuterol HCl 2.5 mg/ (Ipratropium [place] 0.5 mg) 0 mg INHALE RQ6H [facility] Last Admin: 11/14/24 11:01 Dose: 1 dose Documented By: CARISSA Dextrose (Dextrose 50 % 25 Gm/50 Ml Syringe) 25 gm IVPUSH Q15M PRN; Protocol PRN Reason: per Hypoglycemia Standing Ord. Escitalopram Oxalate (Escitalopram Oxalate 20 Mg Tablet) 20 mg PO DAILY [facility] Last Admin: 11/14/24 08:07 Dose: 20 mg Documented By: PEYTON Glucose (Glucose Gel 15 Gm Gel..Gram.) 15 gm PO Q15M PRN; Protocol PRN Reason: per Hypoglycemia Standing Ord. Insulin Human Lispro (Insulin Lispro 100 Unit/Ml 3 Ml Vial) 0 unit SUBCUT QIDACHS [facility]; Protocol Last Admin: 11/14/24 11:39 Dose: 6 unit Documented By: PEYTON Lactulose (Lactulose 20 Gm/30 Ml Solution) 10 gm PO BID PRN PRN Reason: Constipation Lactulose (Lactulose 20 Gm/30 Ml Solution) 30 gm PO DAILY [facility] Last Admin: 11/14/24 08:05 Dose: 30 gm Documented By: PEYTON Lorazepam (Lorazepam 0.5 Mg Tablet) 0.5 mg PO BID PRN PRN Reason: Anxiety Last Admin: 11/14/24 10:35 Dose: 0.5 mg Documented By: PEYTON Magnesium Hydroxide (Milk Of Magnesia 30 Ml Oral.Susp) 30 ml PO DAILY PRN PRN Reason: Constipation Melatonin (Melatonin 3 Mg Tablet) 6 mg PO BEDTIME PRN PRN Reason: Insomnia Last Admin: 11/13/24 23:57 Dose: 6 mg Documented By: MAKENZIE Metformin HCl (Metformin Hcl 1,000 Mg Tablet) 1,000 mg PO BID [facility] Last Admin: 11/14/24 08:07 Dose: 1,000 mg Documented By: PEYTON Methylprednisolone Sodium Succinate (Methylprednisolone Sod Succ 125 Mg/2 Ml Vial) 60 mg IVPUSH Q6H [facility] Last Admin: 11/14/24 09:25 Dose: 60 mg Documented By: PEYTON Metoprolol Tartrate (Metoprolol Tartrate 25 Mg Tablet) 25 mg PO BID [facility]; Protocol Last Admin: 11/14/24 08:07 Dose: 25 mg Documented By: PEYTON Omeprazole (Omeprazole 20 Mg Capsule.) 20 mg PO DAILY@0630 [facility] Last Admin: 11/14/24 06:27 Dose: 20 mg Documented By: MAKENZIE Ondansetron HCl (Ondansetron Hcl 4 Mg/2 Ml Vial) 4 mg IVPUSH Q8H PRN PRN Reason: Nausea and Vomiting Senna (Sennosides 8.6 Mg Tablet) 17.2 mg PO BID [facility] Last Admin: 11/14/24 08:06 Dose: 17.2 mg Documented By: PEYTON Sodium Chloride (0.9 % Sodium Chloride Flush 3 Ml Syringe) 3 ml IVFLUSH QSHIFT [facility] Last Admin: 11/14/24 08:14 Dose: 3 ml Documented By: PEYTON Labs 11/14/24 07:26 11/14/24 07:26 Labs: Laboratory Results - last 24 hr 11/13/24 11/13/24 11/13/24 16:16 16:41 21:03 MCV MCH MCHC RDW Plt Count MPV Immature Gran % (Auto) Neut % (Auto) Lymph % (Auto) [place] % (Auto) Eos % (Auto) Baso % (Auto) Lymph # (Auto) [place] # (Auto) Eos # (Auto) Baso # (Auto) Abs Immat Gran (auto) Absolute Neuts (auto) Absolute Nucleated RBC Nucleated RBC % (auto) Anion Gap Estim Creat Clear Calc Estimated GFR POC Glucose 41 L* 120 H 252 H Fasting Glucose Calcium Total Bilirubin AST ALT Alkaline Phosphatase Total Protein Albumin 11/14/24 11/14/24 11/14/24 00:09 07:21 07:26 MCV 88.9 MCH 27.4 MCHC 30.9 L RDW 14.4 Plt Count 198 MPV 10.7 Immature Gran % (Auto) 0.7 H Neut % (Auto) 86.9 H Lymph % (Auto) 7.8 L [place] % (Auto) 4.5 Eos % (Auto) 0.0 Baso % (Auto) 0.1 Lymph # (Auto) 0.7 L [place] # (Auto) 0.4 Eos # (Auto) 0.0 Baso # (Auto) 0.0 Abs Immat Gran (auto) 0.06 H Absolute Neuts (auto) 7.3 Absolute Nucleated RBC 0.000 Nucleated RBC % (auto) 0.0 Anion Gap 16 Estim Creat Clear Calc 77.4 Estimated GFR > 60 POC Glucose 329 H 234 H Fasting Glucose 234 H Calcium 9.3 Total Bilirubin 0.4 AST 28 ALT 14 Alkaline Phosphatase 94 Total Protein 7.1 Albumin 4.4 11/14/24 11/14/24 10:12 11:02 MCV MCH MCHC RDW Plt Count MPV Immature Gran % (Auto) Neut % (Auto) Lymph % (Auto) [place] % (Auto) Eos % (Auto) Baso % (Auto) Lymph # (Auto) [place] # (Auto) Eos # (Auto) Baso # (Auto) Abs Immat Gran (auto) Absolute Neuts (auto) Absolute Nucleated RBC Nucleated RBC % (auto) Anion Gap Estim Creat Clear Calc Estimated GFR POC Glucose 276 H 260 H Fasting Glucose Calcium Total Bilirubin AST ALT Alkaline Phosphatase Total Protein Albumin Assessment and Plan (1) COPD exacerbation: Status: Acute (2) Diabetes mellitus with hyperglycemia, without long-term current use of insulin: Status: Acute Plan 74-year-old male with past medical history of lung cancer status post chemo and radiation and chronic respiratory failure 3 L oxygen at home presents with worsening shortness of breath over the last 2 weeks. Recently hospitalized 619 through 09/30/2024 for same at. He endorses as slight weight gain of 7 8 lb over the last month he has productive cough. Workup including chest x-ray failed to demonstrate an acute infiltrate however did demonstrate a large stool burden 1.COPD exacerbation -ceftriaxone/azithromycin (4) -methylprednisolone 60 mg IV q.6 hours -DuoNebs q.4 hours while awake -titrate O2 to maintain sats greater than or equal to 92% 2. Diabetes type 2 -sugars rising and response to steroids -continue outpatient therapies -lispro correctional scale -adjust as indicated 3. CAD -stable and well compensated Full code Lovenox Requires ongoing hospitalization for IV antibiotics and steroids to treat COPD exacerbation. Extremely high risk for outpatient failure at this time Quality Stroke Does the patient have a stroke diagnosis?: No VTE Prior VTE?: No VTE Risk Level:: Medical - moderate - high VTE Device Contraindication: Treatment Not Indicated VTE Drug Contraindication: N/A - Med Ordered
[2024-11-14 16:10] LABS: Glucose, Whole Blood 206 mg/dL (60-115)
[2024-11-14 20:37] LABS: Glucose, Whole Blood 299 mg/dL (60-115)
[2024-11-15] VITALS (8 sets, daily range): BP systolic 128–141; BP diastolic 62–70; PULSE 76–97; RESP 18–19; TEMP 36.1–36.5; O2SAT 93–98
[2024-11-15] MEDS: levalbuterol HCL 2.5 MG, Ipratropium Bromide 0.5 MG INHALE ×4 (00:17→19:49)
[2024-11-15 07:33] LABS: Glucose, Whole Blood 310 mg/dL (60-115)
[2024-11-15] MEDS: Calcium + Vitamin D 250 MG TABLET 500 MG PO (07:54)
[2024-11-15] MEDS: 0.9 % Sodium Chloride Flush 3 ML SYRINGE IVFLUSH ×3 (09:07→21:02)
[2024-11-15 11:10] LABS: Glucose, Whole Blood 285 mg/dL (60-115)
--- NOTE | 2024-11-15 11:55 | HO.PM.IMPN ---
Subjective Subjective Date of Service: 11/15/24 Interval History: Still sitting shortness of breath with minimal movement. No acute issues overnight Review of Systems Denies chest pain Denies shortness of breath Denies nausea vomiting diarrhea Denies fever chills Physical Exam Vital Signs: Vital Signs: Last Vital Signs Temp 97.4 F 11/15/24 07:22 Pulse 91 11/15/24 11:09 Resp 18 11/15/24 11:09 BP 128/62 11/15/24 07:22 Pulse Ox 95 11/15/24 07:22 O2 Del Method Nasal Cannula 11/15/24 07:22 O2 Flow Rate 3 11/15/24 07:22 Oxygen Flow Rate 3 11/11/24 12:46 BMI result Body Mass Index 33.6 Const: Other: Awake alert no acute distress able to speak in full sentences Resp: Other: Diminished throughout with scattered expiratory wheezes Cardio: Other: No S4; positive S1-S2; no S3 murmurs rubs or gallops GI: Other: Soft nontender nondistended normoactive bowel sounds Extrem: Other: No edema bilaterally Objective Data Active Medications Acetaminophen (Acetaminophen 325 Mg Tablet) 650 mg PO Q6H PRN PRN Reason: Pain, Mild 1-3,fever,headache Aspirin (Aspirin 81 Mg Tab.Chew) 81 mg PO DAILY [facility] Last Admin: 11/15/24 07:54 Dose: 81 mg Documented By: PEYTON Atorvastatin Calcium (Atorvastatin Calcium 80 Mg Tablet) 80 mg PO BEDTIME [facility] Last Admin: 11/14/24 20:34 Dose: 80 mg Documented By: KRISTA Bisacodyl (Bisacodyl 5 Mg Tablet.Dr) 10 mg PO DAILY PRN PRN Reason: Constipation Calcium Carbonate (Calcium Carbonate 750 Mg Tab.Chew) 750 mg PO Q4H PRN PRN Reason: Heartburn Calcium Carbonate/Cholecalciferol (Calcium + Vitamin D 250 Mg Tablet) 500 mg PO DAILY [facility] Last Admin: 11/15/24 07:54 Dose: 500 mg Documented By: PEYTON Levalbuterol HCl 2.5 mg/ (Ipratropium [place] 0.5 mg) 0 mg INHALE RQ6H [facility] Last Admin: 11/15/24 11:08 Dose: 1 dose Documented By: CARISSA Dextrose (Dextrose 50 % 25 Gm/50 Ml Syringe) 25 gm IVPUSH Q15M PRN; Protocol PRN Reason: per Hypoglycemia Standing Ord. Escitalopram Oxalate (Escitalopram Oxalate 20 Mg Tablet) 20 mg PO DAILY [facility] Last Admin: 11/15/24 07:54 Dose: 20 mg Documented By: PEYTON Glucose (Glucose Gel 15 Gm Gel..Gram.) 15 gm PO Q15M PRN; Protocol PRN Reason: per Hypoglycemia Standing Ord. Insulin Human Lispro (Insulin Lispro 100 Unit/Ml 3 Ml Vial) 0 unit SUBCUT QIDACHS [facility]; Protocol Last Admin: 11/15/24 11:25 Dose: 6 unit Documented By: PEYTON Lactulose (Lactulose 20 Gm/30 Ml Solution) 10 gm PO BID PRN PRN Reason: Constipation Lactulose (Lactulose 20 Gm/30 Ml Solution) 30 gm PO DAILY [facility] Last Admin: 11/15/24 07:52 Dose: 30 gm Documented By: PEYTON Lorazepam (Lorazepam 0.5 Mg Tablet) 0.5 mg PO BID PRN PRN Reason: Anxiety Last Admin: 11/14/24 22:09 Dose: 0.5 mg Documented By: KRISTA Magnesium Hydroxide (Milk Of Magnesia 30 Ml Oral.Susp) 30 ml PO DAILY PRN PRN Reason: Constipation Melatonin (Melatonin 3 Mg Tablet) 6 mg PO BEDTIME PRN PRN Reason: Insomnia Last Admin: 11/13/24 23:57 Dose: 6 mg Documented By: MAKENZIE Metformin HCl (Metformin Hcl 1,000 Mg Tablet) 1,000 mg PO BID [facility] Last Admin: 11/15/24 07:54 Dose: 1,000 mg Documented By: PEYTON Methylprednisolone Sodium Succinate (Methylprednisolone Sod Succ 125 Mg/2 Ml Vial) 60 mg IVPUSH Q6H [facility] Last Admin: 11/15/24 09:06 Dose: 60 mg Documented By: PEYTON Metoprolol Tartrate (Metoprolol Tartrate 25 Mg Tablet) 25 mg PO BID [facility]; Protocol Last Admin: 11/15/24 07:54 Dose: 25 mg Documented By: PEYTON Omeprazole (Omeprazole 20 Mg Capsule.) 20 mg PO DAILY@0630 [facility] Last Admin: 11/15/24 06:05 Dose: 20 mg Documented By: KRISTA Ondansetron HCl (Ondansetron Hcl 4 Mg/2 Ml Vial) 4 mg IVPUSH Q8H PRN PRN Reason: Nausea and Vomiting Senna (Sennosides 8.6 Mg Tablet) 17.2 mg PO BID [facility] Last Admin: 11/15/24 07:54 Dose: 17.2 mg Documented By: PEYTON Sodium Chloride (0.9 % Sodium Chloride Flush 3 Ml Syringe) 3 ml IVFLUSH QSHIFT [facility] Last Admin: 11/15/24 09:07 Dose: 3 ml Documented By: PEYTON Labs 11/14/24 07:26 11/14/24 07:26 Labs: Laboratory Results - last 24 hr 11/14/24 11/14/24 11/15/24 16:03 20:30 07:28 POC Glucose 206 H 299 H 310 H 11/15/24 11:06 POC Glucose 285 H Assessment and Plan (1) Acute exacerbation of COPD with asthma: Status: Acute (2) Diabetes mellitus with hyperglycemia, without long-term current use of insulin: Status: Acute Plan 74-year-old male with past medical history of lung cancer status post chemo and radiation and chronic respiratory failure 3 L oxygen at home presents with worsening shortness of breath over the last 2 weeks. Recently hospitalized 619 through 09/30/2024 for same at. He endorses as slight weight gain of 7 8 lb over the last month he has productive cough. Workup including chest x-ray failed to demonstrate an acute infiltrate however did demonstrate a large stool burden 1.COPD exacerbation -ceftriaxone/azithromycin (5)... Switch to Ceftin on DC -methylprednisolone 60 mg IV q.6 hours..... Switch to oral prednisone upon discharge -DuoNebs q.4 hours while awake -titrate O2 to maintain sats greater than or equal to 92% 2. Diabetes type 2 -sugars rising and response to steroids -continue outpatient therapies -lispro correctional scale -adjust as indicated 3. CAD -stable and well compensated Full code Lovenox Requires ongoing hospitalization for IV antibiotics and steroids to treat COPD exacerbation. Extremely high risk for outpatient failure at this time Quality Stroke Does the patient have a stroke diagnosis?: No VTE Prior VTE?: No VTE Risk Level:: Medical - moderate - high VTE Device Contraindication: Treatment Not Indicated VTE Drug Contraindication: N/A - Med Ordered
[2024-11-15 16:21] LABS: Glucose, Whole Blood 287 mg/dL (60-115)
[2024-11-15 20:36] LABS: Glucose, Whole Blood 284 mg/dL (60-115)
[2024-11-15] MEDS: Milk of Magnesia 30 ML ORAL.SUSP PO (21:03)
[2024-11-16] VITALS (7 sets, daily range): BP systolic 119–139; BP diastolic 58–69; PULSE 69–80; RESP 16–20; TEMP 36.1–36.6; O2SAT 95–98
[2024-11-16] MEDS: levalbuterol HCL 2.5 MG, Ipratropium Bromide 0.5 MG INHALE ×2 (05:02→11:10)
--- NOTE | 2024-11-16 07:15 | PC.NURSE ---
Pt refusing alarm r/t fall at home.
[2024-11-16 07:37] LABS: Glucose, Whole Blood 293 mg/dL (60-115)
[2024-11-16] MEDS: 0.9 % Sodium Chloride Flush 3 ML SYRINGE IVFLUSH ×3 (07:50→21:03)
[2024-11-16] MEDS: Calcium + Vitamin D 250 MG TABLET 500 MG PO (08:06)
--- NOTE | 2024-11-16 11:12 | P.DS_ITS ---
DS: Providers Provider Date of admission: 11/11/24 16:40 Primary care physician: Anne-Marie Muro MD DS: Diagnosis Discharge Diagnosis (1) Acute exacerbation of COPD with asthma: Status: Acute (2) Diabetes mellitus with hyperglycemia, without long-term current use of insulin: Status: Acute DS: Summary Hospital Course Hospital Course: History and physical as per admitting provider. 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 He was hospitalized from 09/24/24-09/30/24 for acute hypoxic respiratory failure secondary to acute COPD exacerbation with sepsis and bronchitis. He endorses a 7-8 pound weight increase in the last month. He has a cough that produces mucus every so often but denies any blood in the mucus. He denies fever, chills, chest pain, nausea, vomiting, diarrhea, changes to urination. He has not traveled recently and has had no sick contacts. Chest x-ray failed to demonstrate an infiltrate. Abdominal pelvis CTA demonstrates a large stool burden .COPD exacerbation -ceftriaxone/azithromycin (5)... Switch to Ceftin on DC -methylprednisolone 60 mg IV q.6 hours..... Switch to oral prednisone upon discharge -DuoNebs q.4 hours while awake -titrate O2 to maintain sats greater than or equal to 92% 2. Diabetes type 2 -sugars rising and response to steroids -continue outpatient therapies -lispro correctional scale -adjust as indicated 3. CAD -stable and well compensated Physical Exam Exam: Exam: Appearing in no acute distress head is normocephalic atraumatic eyes pupils are PERRLA sclera is anicteric mouth throat mucous membranes are intact and moist neck is supple no lymphadenopathy, no JVD noted lung sounds are clear to auscultation heart regular rate rhythm, clear S1, S2 positive bowel sounds, abdomen is soft, nontender neuro patient is alert x3, no focal deficits Vital Signs: Vital Signs: Last Vital Signs Temp 97.8 F 11/16/24 07:40 Pulse 80 11/16/24 07:40 Resp 18 11/16/24 07:40 BP 126/67 11/16/24 07:40 Pulse Ox 95 11/16/24 07:40 O2 Del Method Nasal Cannula 11/16/24 07:40 O2 Flow Rate 2 11/16/24 07:40 Oxygen Flow Rate 3 11/11/24 12:46 BMI result Body Mass Index 33.6 DS: Data Data Completed and Pending Completed studies during hospitalization [Text1]: Procedures Assistance with Respiratory Ventilation, Less than 24 Consecutive Hours, Continuous Positive Airway Pressure (06/16/24) Excision of Rectum, Via Natural or Artificial Opening Endoscopic, Diagnostic (05/26/24) Excision of Sigmoid Colon, Via Natural or Artificial Opening Endoscopic, Diagnostic (05/26/24) Excision of Transverse Colon, Via Natural or Artificial Opening Endoscopic, Diagnostic (05/26/24) Irrigation of Lower GI using Irrigating Substance, Via Natural or Artificial Opening (07/29/22) Labs on day of discharge: Laboratory Results - last 24 hr 11/15/24 11/15/24 11/16/24 16:16 20:14 07:27 POC Glucose 287 H 284 H 293 H Discharge Plan Discharge Anticipated Discharge Date/Time: 11/16/24 11:10 Patient Disposition: Home, Self-Care Discharge Diagnosis: Acute COPD exacerbation Referrals: Anne-Marie Muro MD [Primary Care Provider, Internal Medicine] - 1 Week Discharge Medications: Continued (DME) blood-glucose meter [FreeStyle Lite Meter] Kit See Rx Instructions .Route Qty: 1 0RF Rx Instructions: As directed (DME) lancets [FreeStyle Lancets] 28 gauge misc See Rx Instructions .Route Qty: 100 1RF Rx Instructions: Test blood sugar twice (DME) FreeStyle Lite Strips Strip See Rx Instructions .Route Qty: 50 7RF Rx Instructions: check fasting glucose once a day AC metoprolol tartrate 25 mg tablet 25 mg PO BID Qty: 180 1RF metformin 1,000 mg tablet 1,000 mg PO BID Qty: 180 1RF atorvastatin 80 mg tablet 80 mg PO BEDTIME Qty: 90 1RF omeprazole 20 mg capsule,delayed release(DR/EC) 20 mg PO DAILY@0630 Qty: 30 1RF glipizide 5 mg tablet 5 mg PO BID Qty: 270 4RF ipratropium-albuterol 0.5 mg-3 mg(2.5 mg base)/3 mL solution for nebulization 3 ml inhalation Q6H PRN (Reason: wheezing) Qty: 180 2RF escitalopram oxalate 20 mg tablet 20 mg PO DAILY Qty: 90 3RF budesonide-formoterol [Symbicort] 160-4.5 mcg/actuation Hfa Aerosol Inhaler 2 puff INHALATION DAILY calcium carbonate-vitamin D3 600 mg-10 mcg (400 unit) tablet 1 tab PO DAILY bisacodyl [Laxative (bisacodyl)] 5 mg tablet,delayed release (DR/EC) 10 mg PO DAILY PRN (Reason: constipation) albuterol sulfate [Ventolin HFA] 90 mcg/actuation HFA aerosol inhaler 2 puff inhalation Q4H PRN (Reason: shortness of breath or wheezing) sennosides [senna] 8.6 mg tablet 17.2 mg PO BID sennosides [senna] 8.6 mg tablet 17.2 mg PO BID aspirin 81 mg Tablet 81 mg PO DAILY azithromycin 500 mg tablet 500 mg PO MOWEFR lorazepam [Ativan] 1 mg tablet 0.5 mg PO BID PRN (Reason: anxiety) Rx Instructions: Patient may request partial fill lactulose 10 gram/15 mL solution 10 g PO BID PRN (Reason: Constipation) (DME) Oxygen Home Use Kit See Rx Instructions .Route Rx Instructions: As directed polyethylene glycol 3350 [Miralax] 17 gram/dose powder 17 g PO DAILY 1 Days Qty: 238 0RF Rx Instructions: Mix Miralax with 64 oz(8 cups) of Crystal light. Take 2 tablets of Dulcolax qt 12 pm. Wait to have your 1st bowel movement, then begin drinking Miralax. Drink a glass of Miralax every 10-15 minutes until you are finished. You will drink at least another 4 cups of clear liquid of your choice over the next 2 hours. Please drink as many clear liquids as possible Diet: Advance to usual diet Activity on Discharge: As tolerated Stand Alone Forms: Patient Portal Discharge page Print Language: Tuvaluan Care Plan Goals: Complete steroid taper Health Concerns: Acute COPD exacerbation Plan of Treatment: Follow up with primary care provider as needed Take all medications as prescribed Assessment: See discharge summary
[2024-11-16 12:29] LABS: Glucose, Whole Blood 252 mg/dL (60-115)
--- NOTE | 2024-11-16 13:57 | P.PNIM_ITS ---
Subjective Subjective Date of Service: 11/16/24 Interval History: Still sitting shortness of breath with minimal movement but seems at baseline reports continued constipation Review of Systems Denies chest pain Denies shortness of breath Denies nausea vomiting diarrhea Denies fever chills Physical Exam 2 Exam: Exam: Appearing in no acute distress lung sounds are clear to auscultation heart regular rate rhythm, clear S1, S2 positive bowel sounds, abdomen is soft, nontender neuro patient is alert x3, no focal deficits Vital Signs: Vital Signs: Last Vital Signs Temp 97.8 F 11/16/24 07:40 Pulse 70 11/16/24 11:12 Resp 16 11/16/24 11:12 BP 126/67 11/16/24 07:40 Pulse Ox 95 11/16/24 07:40 O2 Del Method Nasal Cannula 11/16/24 07:40 O2 Flow Rate 2 11/16/24 07:40 Oxygen Flow Rate 3 11/11/24 12:46 BMI result Body Mass Index 33.6 Objective Data Active Medications Acetaminophen (Acetaminophen 325 Mg Tablet) 650 mg PO Q6H PRN PRN Reason: Pain, Mild 1-3,fever,headache Aspirin (Aspirin 81 Mg Tab.Chew) 81 mg PO DAILY [facility] Last Admin: 11/16/24 08:06 Dose: 81 mg Documented By: DURAN Atorvastatin Calcium (Atorvastatin Calcium 80 Mg Tablet) 80 mg PO BEDTIME [facility] Last Admin: 11/15/24 20:58 Dose: 80 mg Documented By: TOMASA Bisacodyl (Bisacodyl 5 Mg Tablet.Dr) 10 mg PO DAILY PRN PRN Reason: Constipation Calcium Carbonate (Calcium Carbonate 750 Mg Tab.Chew) 750 mg PO Q4H PRN PRN Reason: Heartburn Calcium Carbonate/Cholecalciferol (Calcium + Vitamin D 250 Mg Tablet) 500 mg PO DAILY [facility] Last Admin: 11/16/24 08:06 Dose: 500 mg Documented By: DURAN Levalbuterol HCl 2.5 mg/ (Ipratropium [place] 0.5 mg) 0 mg INHALE RQ6H [facility] Last Admin: 11/16/24 11:10 Dose: 1 dose Documented By: LEXI Dextrose (Dextrose 50 % 25 Gm/50 Ml Syringe) 25 gm IVPUSH Q15M PRN; Protocol PRN Reason: per Hypoglycemia Standing Ord. Escitalopram Oxalate (Escitalopram Oxalate 20 Mg Tablet) 20 mg PO DAILY [facility] Last Admin: 11/16/24 08:06 Dose: 20 mg Documented By: DURAN Glucose (Glucose Gel 15 Gm Gel..Gram.) 15 gm PO Q15M PRN; Protocol PRN Reason: per Hypoglycemia Standing Ord. Insulin Human Lispro (Insulin Lispro 100 Unit/Ml 3 Ml Vial) 0 unit SUBCUT QIDACHS [facility]; Protocol Last Admin: 11/16/24 11:51 Dose: 6 unit Documented By: DURAN Lactulose (Lactulose 20 Gm/30 Ml Solution) 10 gm PO BID PRN PRN Reason: Constipation Lactulose (Lactulose 20 Gm/30 Ml Solution) 30 gm PO DAILY [facility] Last Admin: 11/16/24 08:07 Dose: 30 gm Documented By: DURAN Lorazepam (Lorazepam 0.5 Mg Tablet) 0.5 mg PO BID PRN PRN Reason: Anxiety Last Admin: 11/16/24 13:17 Dose: 0.5 mg Documented By: DURAN Magnesium Hydroxide (Milk Of Magnesia 30 Ml Oral.Susp) 30 ml PO DAILY PRN PRN Reason: Constipation Last Admin: 11/15/24 21:03 Dose: 30 ml Documented By: TOMASA Melatonin (Melatonin 3 Mg Tablet) 6 mg PO BEDTIME PRN PRN Reason: Insomnia Last Admin: 11/13/24 23:57 Dose: 6 mg Documented By: MAKENZIE Metformin HCl (Metformin Hcl 1,000 Mg Tablet) 1,000 mg PO BID [facility] Last Admin: 11/16/24 08:06 Dose: 1,000 mg Documented By: DURAN Metoprolol Tartrate (Metoprolol Tartrate 25 Mg Tablet) 25 mg PO BID [facility]; Protocol Last Admin: 11/16/24 08:06 Dose: 25 mg Documented By: DURAN Omeprazole (Omeprazole 20 Mg Capsule.Dr) 20 mg PO DAILY@0630 [facility] Last Admin: 11/16/24 06:42 Dose: 20 mg Documented By: TOMASA Ondansetron HCl (Ondansetron Hcl 4 Mg/2 Ml Vial) 4 mg IVPUSH Q8H PRN PRN Reason: Nausea and Vomiting Prednisone (Prednisone 20 Mg Tablet) 40 mg PO DAILY [facility] Last Admin: 11/16/24 08:06 Dose: 40 mg Documented By: DURAN Senna (Sennosides 8.6 Mg Tablet) 17.2 mg PO BID [facility] Last Admin: 11/16/24 08:06 Dose: 17.2 mg Documented By: DURAN Sodium Chloride (0.9 % Sodium Chloride Flush 3 Ml Syringe) 3 ml IVFLUSH QSHIFT [facility] Last Admin: 11/16/24 07:50 Dose: 3 ml Documented By: DURAN Labs 11/14/24 07:26 11/14/24 07:26 Labs: Laboratory Results - last 24 hr 11/15/24 11/15/24 11/16/24 16:16 20:14 07:27 POC Glucose 287 H 284 H 293 H 11/16/24 11:40 POC Glucose 252 H Assessment and Plan (1) Acute exacerbation of COPD with asthma: Status: Acute (2) Diabetes mellitus with hyperglycemia, without long-term current use of insulin: Status: Acute Plan 74-year-old male with past medical history of lung cancer status post chemo and radiation and chronic respiratory failure 3 L oxygen at home presents with worsening shortness of breath over the last 2 weeks. Recently hospitalized 619 through 09/30/2024 for same at. He endorses as slight weight gain of 7 8 lb over the last month he has productive cough. Workup including chest x-ray failed to demonstrate an acute infiltrate however did demonstrate a large stool burden COPD exacerbation ceftriaxone/azithromycin, Switch to Ceftin on DC s/p solumedrol 60 mg IV q.6 hours started Prednisone 40 mg daily DuoNebs q.4 hours while awake titrate O2 to maintain sats greater than or equal to 92% Severe constipation Continue current bowel reg GI consultation for other recs Diabetes type 2 sugars rising and response to steroids continue outpatient therapies lispro correctional scale adjust as indicated CAD stable and well compensated Full code Lovenox Quality Stroke Does the patient have a stroke diagnosis?: No VTE Prior VTE?: No VTE Risk Level:: Medical - moderate - high VTE Device Contraindication: Treatment Not Indicated VTE Drug Contraindication: N/A - Med Ordered
--- NOTE | 2024-11-16 15:26 | MHC.CM.PN ---
EMR reviewed and per MD rounds, pt it not medically cleared for discharge due to management of COPD exacerbation and constipation.
--- NOTE | 2024-11-16 15:54 | PC.NURSE ---
No BM yet from [facility], [employer] Aware. GI Consult, Gen Surg Consult.
[2024-11-16 16:22] LABS: Glucose, Whole Blood 235 mg/dL (60-115)
--- NOTE | 2024-11-16 17:15 | PM.GICN ---
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 This is his 4th hospitalization this year alone. Patient has had multiple episodes of severe constipation, with no bowel movement for almost up to 2 weeks leading to hospitalization. On contrasted imaging of the abdomen and pelvis, he has a focal area of bowel wall thickening in the sigmoid colon raising suspicion for stricture, but a flexible sigmoidoscopy 05/2024 and Gastrografin enema 06/2024 both did not show any stricture, narrowing or obstruction. Patient and both demonstrate frustration that even though, patient is able to pass bowel movements with bowel regimen given in the hospital, they somehow do not have that level of success at home. They are hopeful for a more sustainable strategy, that can prevent future hospitalizations. He also reports considerable shortness of breath with progressive constipation due to increased abdominal girth and pressure. Patient also has a positive Cologuard test as of 01/2024. Due to high anesthesia risk for colonoscopy, his outpatient solution director (Dr Corcoran) had ordered CT colonography. However, this is still pending due to patient's recurrent readmissions. To note, the flexible sigmoidoscopy done in May was done without any sedation, patient was awake. He reports he was able to pass flatus and a small bowel movement 1 hour prior to evaluation. This was after he received Mag citrate, milk of magnesia and senna. Review of Systems Review of Systems: Yes all other systems are reviewed and are negative [facility] Past Medical History Medical History (Updated 11/16/24 @ 17:26 by Shanna Jiang MD) Positive colorectal cancer screening using Cologuard test HTN (hypertension) History of adenomatous polyp of colon Acute on chronic respiratory failure with hypoxia and hypercapnia Respiratory failure with hypoxia and hypercapnia Bilateral carotid artery disease CAD (coronary artery disease) Anxiety and depression Anemia Chronic respiratory failure with hypoxia and hypercapnia Radiation fibrosis of lung Dyslipidemia History of pneumonia Bacteremia due to Enterococcus COPD, severe Diabetes mellitus with hyperglycemia, without long-term current use of insulin Urinary incontinence Asthma Lung cancer Skin cancer Family History Family History Father Medical history non-contributory Mother Medical history non-contributory Unknown family medical history Lung collapse Brother No problems noted. Brother No problems noted. Son Substance use disorder Son No problems noted. Daughter No problems noted. Sister No problems noted. Sister No problems noted. Sister No problems noted. Sister No problems noted. Other HTN (hypertension) Surgical History Surgical History Hx of heart artery stent History of esophagogastroduodenoscopy (EGD) Hx of colonoscopy Social History Social History Household Members: Spouse Household Members Other:: grandson Housing: House Are you a primary career development coordinator to a significant other at home: No Do you presently have visiting nurse or other home services: No Alcohol intake: never Comment: refusing high fall risk interventions. Patient Tobacco Use Status: Former Tobacco user Tobacco use type: Cigarette e-Cigarette/Vaping Use: Never Used Advance Directives Date on File: 06/08/22 service: No Current occupational status: retired Cognitive needs: No Hearing needs: No Vision needs: No Meds Allergies Allergy/AdvReac Type Severity Reaction Status Date / Time fluticasone furoate (From Allergy Intermediate Rash Verified 11/11/24 12:54 Trelegy Ellipta) vilanterol (From Trelegy Allergy Intermediate Rash Verified 11/11/24 12:54 Ellipta) umeclidinium (Incruse Allergy Unknown Hives Verified 11/11/24 12:54 Ellipta) furosemide (From Lasix) AdvReac Intermediate Hallucinati Verified 11/11/24 12:54 ons Active Medications: Current Medications Acetaminophen (Acetaminophen 325 Mg Tablet) 650 mg PO Q6H PRN PRN Reason: Pain, Mild 1-3,fever,headache Aspirin (Aspirin 81 Mg Tab.Chew) 81 mg PO DAILY [facility] Last Admin: 11/16/24 08:06 Dose: 81 mg Atorvastatin Calcium (Atorvastatin Calcium 80 Mg Tablet) 80 mg PO BEDTIME [facility] Last Admin: 11/15/24 20:58 Dose: 80 mg Bisacodyl (Bisacodyl 5 Mg Tablet.Dr) 10 mg PO DAILY PRN PRN Reason: Constipation Calcium Carbonate (Calcium Carbonate 750 Mg Tab.Chew) 750 mg PO Q4H PRN PRN Reason: Heartburn Calcium Carbonate/Cholecalciferol (Calcium + Vitamin D 250 Mg Tablet) 500 mg PO DAILY [facility] Last Admin: 11/16/24 08:06 Dose: 500 mg Levalbuterol HCl 2.5 mg/ (Ipratropium [place] 0.5 mg) 0 mg INHALE RQ6H [facility] Last Admin: 11/16/24 11:10 Dose: 1 dose Dextrose (Dextrose 50 % 25 Gm/50 Ml Syringe) 25 gm IVPUSH Q15M PRN; Protocol PRN Reason: per Hypoglycemia Standing Ord. Escitalopram Oxalate (Escitalopram Oxalate 20 Mg Tablet) 20 mg PO DAILY [facility] Last Admin: 11/16/24 08:06 Dose: 20 mg Glucose (Glucose Gel 15 Gm Gel..Gram.) 15 gm PO Q15M PRN; Protocol PRN Reason: per Hypoglycemia Standing Ord. Insulin Human Lispro (Insulin Lispro 100 Unit/Ml 3 Ml Vial) 0 unit SUBCUT QIDACHS [facility]; Protocol Last Admin: 11/16/24 16:44 Dose: 4 unit Lactulose (Lactulose 20 Gm/30 Ml Solution) 10 gm PO BID PRN PRN Reason: Constipation Lactulose (Lactulose 20 Gm/30 Ml Solution) 30 gm PO DAILY [facility] Last Admin: 11/16/24 08:07 Dose: 30 gm Lorazepam (Lorazepam 0.5 Mg Tablet) 0.5 mg PO BID PRN PRN Reason: Anxiety Last Admin: 11/16/24 13:17 Dose: 0.5 mg Magnesium Hydroxide (Milk Of Magnesia 30 Ml Oral.Susp) 30 ml PO DAILY PRN PRN Reason: Constipation Last Admin: 11/15/24 21:03 Dose: 30 ml Melatonin (Melatonin 3 Mg Tablet) 6 mg PO BEDTIME PRN PRN Reason: Insomnia Last Admin: 11/13/24 23:57 Dose: 6 mg Metformin HCl (Metformin Hcl 1,000 Mg Tablet) 1,000 mg PO BID [facility] Last Admin: 11/16/24 08:06 Dose: 1,000 mg Metoprolol Tartrate (Metoprolol Tartrate 25 Mg Tablet) 25 mg PO BID [facility]; Protocol Last Admin: 11/16/24 08:06 Dose: 25 mg Omeprazole (Omeprazole 20 Mg Capsule.) 20 mg PO DAILY@0630 [facility] Last Admin: 11/16/24 06:42 Dose: 20 mg Ondansetron HCl (Ondansetron Hcl 4 Mg/2 Ml Vial) 4 mg IVPUSH Q8H PRN PRN Reason: Nausea and Vomiting Prednisone (Prednisone 20 Mg Tablet) 40 mg PO DAILY [facility] Last Admin: 11/16/24 08:06 Dose: 40 mg Senna (Sennosides 8.6 Mg Tablet) 17.2 mg PO BID [facility] Last Admin: 11/16/24 08:06 Dose: 17.2 mg Sodium Chloride (0.9 % Sodium Chloride Flush 3 Ml Syringe) 3 ml IVFLUSH QSHIFT [facility] Last Admin: 11/16/24 16:44 Dose: 3 ml Home Medications ?Medication ?Instructions ?Recorded ?Confirmed ?Last Taken ?Type budesonide-formoterol HFA 160 2 puff inhalation DAILY 03/14/21 11/11/24 11/11/24 History mcg-4.5 mcg/actuation aerosol inhaler (Symbicort) calcium 600 mg (as 1 tab PO DAILY 08/04/21 11/11/24 11/11/24 History carbonate)-vitamin D3 10 mcg (400 unit) tablet Oxygen Home Use 06/14/22 10/08/24 Unknown History bisacodyl 5 mg tablet,delayed 10 mg PO DAILY PRN constipation 06/16/24 11/11/24 09/23/24 21:00 History release (Laxative (bisacodyl)) albuterol sulfate 90 mcg/actuation 2 puff inhalation Q4H PRN 09/24/24 11/11/24 09/23/24 21:00 History aerosol inhaler (Ventolin HFA) shortness of breath or wheezing aspirin 81 mg tablet 81 mg PO DAILY 11/11/24 11/11/24 11/11/24 History azithromycin 500 mg tablet 500 mg PO MOWEFR 11/11/24 11/11/24 11/11/24 History lactulose 10 gram/15 mL oral 10 g PO BID PRN Constipation 11/11/24 11/11/24 Unknown History solution lorazepam 1 mg tablet (Ativan) 0.5 mg PO BID PRN anxiety 11/11/24 11/11/24 Unknown History sennosides 8.6 mg tablet (senna) 17.2 mg PO BID 11/11/24 11/11/24 11/11/24 History sennosides 8.6 mg tablet (senna) 17.2 mg PO BID 11/11/24 11/11/24 11/11/24 History Physical Exam Exam: Exam: Elderly male Nonicteric Nasal cannula in place Abdomen firm, distended, nontender to palpation Lower extremity edema Vital Signs: Vital Signs: Last Vital Signs Temp 97.4 F 11/16/24 16:00 Pulse 69 11/16/24 16:00 Resp 20 11/16/24 16:00 BP 128/61 11/16/24 16:00 Pulse Ox 97 11/16/24 16:00 O2 Del Method Nasal Cannula 11/16/24 16:00 O2 Flow Rate 3 11/16/24 16:00 Oxygen Flow Rate 3 11/11/24 12:46 BMI result Body Mass Index 33.6 Results Labs 11/14/24 07:26 11/14/24 07:[address] scan - abdomen: Attestation: I personally reviewed and interpreted this imaging study as follows: My impression: Assessment and Plan (1) Chronic constipation: Status: Acute (2) History of adenomatous polyp of colon: Status: Acute (3) Positive colorectal cancer screening using Cologuard test: Status: Acute (4) COPD, severe: Status: Acute (5) CAD (coronary artery disease): Status: Acute Plan As noted in image above, suspect that this focal area of colon wall thickening is likely contributing to frequent episodes of constipation. This is not amenable to endoscopic remodeling. Patient would like to explore surgical options, despite detailed discussion that he was not deemed to be a suitable candidate for a colonoscopy, so doubt that he will be cleared for anesthesia for a surgical procedure. He also has positive Cologuard, so proximal lesion contributing to the symptoms can not be excluded. CT colonography remains pending. Recommendations: - Keep on clear liquids until pt has regular BMs - AVOID lactulose to avoid further bloating and distention. Miralax BID is a reasonable alternative - Cont senna BID. - Can repeat mag citrate tmrw if inadequate response today - Once pt achieves regular BMs, pls resume home Linzess. Would likely need 290 mcg dosing as developed constipation on 145 mcg dose - Surgery consultation as above - Romulo and Mg normal from recent admission. Check TSH. - If anticipated to be in hospital over next 2-3 days would strongly advocate for in-house CT colonography to avoid further delay (to recall, zachery is positive from last year 01/2024) Thank you for allowing me to participate in his care. Please do not hesitate to reach out for any questions or concerns. Procedures Date of Service Date of Service: 11/16/24
[2024-11-16 20:53] LABS: Glucose, Whole Blood 240 mg/dL (60-115)
[2024-11-17] VITALS (8 sets, daily range): BP systolic 124–133; BP diastolic 59–68; PULSE 63–76; RESP 16–20; TEMP 36.3–36.8; O2SAT 92–98
[2024-11-17] MEDS: levalbuterol HCL 2.5 MG, Ipratropium Bromide 0.5 MG INHALE ×4 (04:03→17:20)
--- NOTE | 2024-11-17 06:49 | PC.NURSE ---
Continues refusing high fall risk interventions. Steady on feet.
[2024-11-17 07:24] LABS: Glucose, Whole Blood 162 mg/dL (60-115)
[2024-11-17] MEDS: Calcium + Vitamin D 250 MG TABLET 500 MG PO (07:58)
[2024-11-17] MEDS: 0.9 % Sodium Chloride Flush 3 ML SYRINGE IVFLUSH ×3 (07:59→21:25)
--- NOTE | 2024-11-17 10:17 | P.CONGS_ITS ---
History of Present Illness Consult details Consult date: 11/17/24 Reason for consult: other (possible ostomy ) Requesting physician: Kalpana Davey Narrative: Mr. Fitz Reed is a 74-year-old male with a PMH significant for COPD, chronic hypoxemic and hypercarbic respiratory failure on 3L home O2, hx of left lung cancer s/p chemo and radiation 10 years ago, HLD, HTN, [id number] type 2 diabetes, hepatic cirrhosis, LIBRADO who initially presented to the ED with increasing shortness of breath and constipation for the past 2 weeks. He was subsequently admitted to the hospitalist service for treatment of acute COPD exacerbation. He thinks his breathing has improved a little but his abdomen remains distended making his SOB worse. He has a history of chronic constipation with frequent admissions. He had a positive cologuard in 01/29. He was deemed too high risk for anesthesia and therefore CT colonography was ordered however this has not been performed yet. He has had multiple CT scans demonstrating an abrupt change in caliber of the proximal sigmoid. He did undergo sigmoidoscopy 06/[address] Gomez which showed diverticulosis, colon polyps, internal hemorrhoids. Pathology of sigmoid/rectal polyps revealed hyperplastic mucosal polyps. He had another episode in 06/30 where he underwent a barium enema which showed significant constipation without obstructive etiology or mass seen. He reports frequents episodes of severe constipation that result in admission and he is frustrated at this. CT scan abd/pelvis was obtained during his admission work up with again shows a large stool burden throughout with the area of narrowing in the sigmoid. He has received senna, lactulose and mag citrate. He reports passing a large amount flatus and a small amount of stool particles but nothing significant. He reports bloating and some occasional nausea without vomiting. He denies abdominal pain but reports some discomfort due to this size of his belly. He feels like his breathing is not back to baseline due to his distention. Review of Systems 2 Constitutional: Constitutional: Denies chills and Denies fever(s) ENT: Reports dizziness Cardiovascular: Cardiovascular: Denies chest pain and Denies dyspnea Respiratory: Respiratory: Denies dyspnea Gastrointestinal: Gastrointestinal: Reports as per HPI Integumentary/Breasts: Skin/Breast: Denies rash Neurologic: Reports dizziness PMFSH Past Medical History Medical History (Updated 11/16/24 @ 17:26 by Shanna Jiang MD) Positive colorectal cancer screening using Cologuard test HTN (hypertension) History of adenomatous polyp of colon Acute on chronic respiratory failure with hypoxia and hypercapnia Respiratory failure with hypoxia and hypercapnia Bilateral carotid artery disease CAD (coronary artery disease) Anxiety and depression Anemia Chronic respiratory failure with hypoxia and hypercapnia Radiation fibrosis of lung Dyslipidemia History of pneumonia Bacteremia due to Enterococcus COPD, severe Diabetes mellitus with hyperglycemia, without long-term current use of insulin Urinary incontinence Asthma Lung cancer Skin cancer Family History Family History Father Medical history non-contributory Mother Medical history non-contributory Unknown family medical history Lung collapse Brother No problems noted. Brother No problems noted. Son Substance use disorder Son No problems noted. Daughter No problems noted. Sister No problems noted. Sister No problems noted. Sister No problems noted. Sister No problems noted. Other HTN (hypertension) Surgical History Surgical History Hx of heart artery stent History of esophagogastroduodenoscopy (EGD) Hx of colonoscopy Social History Social History Household Members: Spouse Household Members Other:: grandson Housing: House Are you a primary career portals teacher to a significant other at home: No Do you presently have visiting nurse or other home services: No Alcohol intake: never Comment: REFUSED Patient Tobacco Use Status: Former Tobacco user Tobacco use type: Cigarette e-Cigarette/Vaping Use: Never Used Advance Directives Date on File: 06/08/22 service: No Current occupational status: retired Cognitive needs: No Hearing needs: No Vision needs: No Meds Allergies Allergy/AdvReac Type Severity Reaction Status Date / Time fluticasone furoate (From Allergy Intermediate Rash Verified 11/11/24 12:54 Trelegy Ellipta) vilanterol (From Trelegy Allergy Intermediate Rash Verified 11/11/24 12:54 Ellipta) umeclidinium (Incruse Allergy Unknown Hives Verified 11/11/24 12:54 Ellipta) furosemide (From Lasix) AdvReac Intermediate Hallucinati Verified 11/11/24 12:54 ons Active Medications: Current Medications Acetaminophen (Acetaminophen 325 Mg Tablet) 650 mg PO Q6H PRN PRN Reason: Pain, Mild 1-3,fever,headache Aspirin (Aspirin 81 Mg Tab.Chew) 81 mg PO DAILY [facility] Last Admin: 11/17/24 07:59 Dose: 81 mg Atorvastatin Calcium (Atorvastatin Calcium 80 Mg Tablet) 80 mg PO BEDTIME [facility] Last Admin: 11/16/24 21:01 Dose: 80 mg Bisacodyl (Bisacodyl 5 Mg Tablet.Dr) 10 mg PO DAILY PRN PRN Reason: Constipation Calcium Carbonate (Calcium Carbonate 750 Mg Tab.Chew) 750 mg PO Q4H PRN PRN Reason: Heartburn Calcium Carbonate/Cholecalciferol (Calcium + Vitamin D 250 Mg Tablet) 500 mg PO DAILY [facility] Last Admin: 11/17/24 07:58 Dose: 500 mg Levalbuterol HCl 2.5 mg/ (Ipratropium [place] 0.5 mg) 0 mg INHALE RQ6H [facility] Last Admin: 11/17/24 08:01 Dose: 2.5 dose Dextrose (Dextrose 50 % 25 Gm/50 Ml Syringe) 25 gm IVPUSH Q15M PRN; Protocol PRN Reason: per Hypoglycemia Standing Ord. Escitalopram Oxalate (Escitalopram Oxalate 20 Mg Tablet) 20 mg PO DAILY [facility] Last Admin: 11/17/24 07:59 Dose: 20 mg Glucose (Glucose Gel 15 Gm Gel..Gram.) 15 gm PO Q15M PRN; Protocol PRN Reason: per Hypoglycemia Standing Ord. Insulin Human Lispro (Insulin Lispro 100 Unit/Ml 3 Ml Vial) 0 unit SUBCUT QIDACHS [facility]; Protocol Last Admin: 11/17/24 07:32 Dose: 2 unit Lactulose (Lactulose 20 Gm/30 Ml Solution) 10 gm PO BID PRN PRN Reason: Constipation Lactulose (Lactulose 20 Gm/30 Ml Solution) 30 gm PO DAILY [facility] Last Admin: 11/17/24 07:57 Dose: 30 gm Magnesium Hydroxide (Milk Of Magnesia 30 Ml Oral.Susp) 30 ml PO DAILY PRN PRN Reason: Constipation Last Admin: 11/15/24 21:03 Dose: 30 ml Melatonin (Melatonin 3 Mg Tablet) 6 mg PO BEDTIME PRN PRN Reason: Insomnia Last Admin: 11/13/24 23:57 Dose: 6 mg Metformin HCl (Metformin Hcl 1,000 Mg Tablet) 1,000 mg PO BID [facility] Last Admin: 11/17/24 07:59 Dose: 1,000 mg Metoprolol Tartrate (Metoprolol Tartrate 25 Mg Tablet) 25 mg PO BID [facility]; Protocol Last Admin: 11/17/24 07:59 Dose: 25 mg Omeprazole (Omeprazole 20 Mg Capsule.Dr) 20 mg PO DAILY@0630 [facility] Last Admin: 11/17/24 06:31 Dose: 20 mg Ondansetron HCl (Ondansetron Hcl 4 Mg/2 Ml Vial) 4 mg IVPUSH Q8H PRN PRN Reason: Nausea and Vomiting Prednisone (Prednisone 20 Mg Tablet) 40 mg PO DAILY [facility] Last Admin: 11/17/24 07:58 Dose: 40 mg Senna (Sennosides 8.6 Mg Tablet) 17.2 mg PO BID [facility] Last Admin: 11/17/24 07:58 Dose: 17.2 mg Sodium Chloride (0.9 % Sodium Chloride Flush 3 Ml Syringe) 3 ml IVFLUSH QSHIFT [facility] Last Admin: 11/17/24 07:59 Dose: 3 ml Home Medications ?Medication ?Instructions ?Recorded ?Confirmed ?Last Taken ?Type budesonide-formoterol HFA 160 2 puff inhalation DAILY 03/14/21 11/11/24 11/11/24 History mcg-4.5 mcg/actuation aerosol inhaler (Symbicort) calcium 600 mg (as 1 tab PO DAILY 08/04/2109/3011/11/24 History carbonate)-vitamin D3 10 mcg (400 unit) tablet Oxygen Home Use 06/14/22 10/08/24 Unknown H istory bisacodyl 5 mg tablet,delayed 10 mg PO DAILY PRN const ipation 06/16/24 11/11/24 09/23/24 21:00 History release (Laxative (bisacodyl)) albuterol sulfate 90 mcg/actuation 2 puff inhalation Q 4H PRN 09/24/24 11/11/24 09/23/24 21:00 History aerosol inhaler (Ventolin HFA) shortness of breath or wheezing aspirin 81 mg tablet 81 mg PO DAILY 11/11/24 080 09/3011/11/24 History azithromycin 500 mg tablet 500 mg PO MOWEFR 11/11/24 0 11/11/24 11/11/24 History lactulose 10 gram/15 mL oral 10 g PO BID PRN Constipat ion 11/11/24 11/11/24 Unknown History solution lorazepam 1 mg tablet (Ativan) 0.5 mg PO BID PRN anxie ty 11/11/24 11/11/24 Unknown History sennosides 8.6 mg tablet (senna) 17.2 mg PO BID 11/11/24 11/11/24 History sennosides 8.6 mg tablet (senna) 17.2 mg PO BID 11/11/24 11/11/24 History Physical Exam 2 Vital Signs: Vital Signs: Last Vital Signs Temp 98.3 F 11/17/24 07:05 Pulse 73 11/17/24 07:05 Resp 18 11/17/24 07:05 BP 124/59 L 11/17/24 07:05 Pulse Ox 94 11/17/24 07:05 O2 Del Method Nasal Cannula 11/17/24 07:05 O2 Flow Rate 3.0 11/17/24 07:05 Oxygen Flow Rate 3 11/11/24 12:46 BMI result Body Mass Index 33.6 Const: General: alert and tired appearing Orientation/consciousness: p atient oriented x3 Resp: Other: slight increased work of breathing Effort & Inspection: not able to speak in complete sentences GI: Other: significantly distended and protuberant abdomen soft Palpation (GI): nontender and no guarding Skin: General skin exam: no rashes or lesions noted Neuro: General: patient oriented x3 Results Labs 11/14/24 07:26 11/14/24 07:26 Labs: Abnormal lab results 11/16/24 11/16/24 11/16/24 Range/Units 11:40 16:13 20:49 POC Glucose 252 H 235 H 240 H (60-115) mg/dL 11/17/24 Range/Units 07:11 POC Glucose 162 H (60-115) mg/dL All other labs normal. Imaging Abdomen CT scan report/results: report reviewed and image reviewed Assessment and Plan (1) Constipation: Qualifiers: Constipation type: unspecified constipation type Qualified Code(s): K 59.00 - Constipation, unspecified Status: Acute Plan 74-year-old male with a PMH significant for COPD, chronic hypoxemic and hypercarbic respiratory failure on 3L home O2, hx of left lung cancer s/p chemo and radiation 10 years ago, HLD, HTN, [id number] type 2 diabetes, hepatic cirrhosis, LIBRADO admitted for COPD exacerbation and severe constipation. He has had multiple episodes of severe constipation with CT scans with abrupt transition in caliber in the mid to distal sigmoid colon however work up with sigmoidoscopy and barium enema both in 2024 have been negative for any anatomic abnormality. Would recommend repeat flex sig without anesthesia during admission to reevaluate for any stricture/anatomic abnormality. If there is a stricture, next step would be dilation if possible followed by loop ostomy if no improvement with dilatation. However if flex sig is again normal, ostomy creation would not be helpful for treatment of the constipation and would recommend continuing medical management and laxatives. CT colonography also unlikely to be revealing with his colon FOS. Patient is a very high risk surgical candidate and surgical intervention would be absolute last step as he would likely remain on vent following. Case discussed with Dr. Arthur. Procedures Date of Service Date of Service: 11/17/24
[2024-11-17 10:31] LABS: Glucose, Whole Blood 218 mg/dL (60-115)
[2024-11-17 11:33] LABS: Glucose, Whole Blood 228 mg/dL (60-115)
--- NOTE | 2024-11-17 13:53 | PM.EVENT ---
Event Note Date of Service: 11/17/24 Event Note: Discussed with Dr. Jiang- she feels like there is an area of the sigmoid with diverticular narrowing but not necessarily a stricture as the colon is able to insufflate with the prior flex sig and barium enema. She therefore does not think a repeat flex sig would reveal anything further. He remains very high risk for any surgical intervention. Discussed with PABLITO Acuna who will have pulmonology see to do a risk assessment and discuss possiblity of remaining on vent for lengthy period post operatively vs becoming vent dependent. If patient continues to wish to proceed with surgical intervention, could in this case do loop transverse colostomy. Other option would to attempt to continue nonoperative measures and keep the stool less formed and more liquid to aid in passage. Time Spent With Patient Time: Total time managing care of this patient today ____ minutes.
--- NOTE | 2024-11-17 14:45 | HO.PM.IMPN ---
Subjective Subjective Date of Service: 11/17/24 Interval History: Still sitting shortness of breath with minimal movement but seems at baseline reports continued constipation Review of Systems Denies chest pain Denies shortness of breath Denies nausea vomiting diarrhea Denies fever chills Physical Exam Exam: Exam: Appearing in no acute distress lung sounds are clear to auscultation heart regular rate rhythm, clear S1, S2 positive bowel sounds, abdomen is soft, nontender neuro patient is alert x3, no focal deficits Vital Signs: Vital Signs: Last Vital Signs Temp 98.1 F 11/17/24 10:15 Pulse 63 11/17/24 11:31 Resp 18 11/17/24 11:31 BP 132/68 11/17/24 10:15 Pulse Ox 95 11/17/24 10:15 O2 Del Method Nasal Cannula 11/17/24 10:15 O2 Flow Rate 3.0 11/17/24 10:15 Oxygen Flow Rate 3 11/11/24 12:46 BMI result Body Mass Index 33.6 Objective Data Active Medications Acetaminophen (Acetaminophen 325 Mg Tablet) 650 mg PO Q6H PRN PRN Reason: Pain, Mild 1-3,fever,headache Aspirin (Aspirin 81 Mg Tab.Chew) 81 mg PO DAILY [facility] Last Admin: 11/17/24 07:59 Dose: 81 mg Documented By: DURAN Atorvastatin Calcium (Atorvastatin Calcium 80 Mg Tablet) 80 mg PO BEDTIME [facility] Last Admin: 11/16/24 21:01 Dose: 80 mg Documented By: TOMASA Bisacodyl (Bisacodyl 5 Mg Tablet.Dr) 10 mg PO DAILY PRN PRN Reason: Constipation Calcium Carbonate (Calcium Carbonate 750 Mg Tab.Chew) 750 mg PO Q4H PRN PRN Reason: Heartburn Calcium Carbonate/Cholecalciferol (Calcium + Vitamin D 250 Mg Tablet) 500 mg PO DAILY [facility] Last Admin: 11/17/24 07:58 Dose: 500 mg Documented By: DURAN Levalbuterol HCl 2.5 mg/ (Ipratropium [place] 0.5 mg) 0 mg INHALE RQ6H [facility] Last Admin: 11/17/24 11:29 Dose: 1 dose Documented By: ELENA Dextrose (Dextrose 50 % 25 Gm/50 Ml Syringe) 25 gm IVPUSH Q15M PRN; Protocol PRN Reason: per Hypoglycemia Standing Ord. Escitalopram Oxalate (Escitalopram Oxalate 20 Mg Tablet) 20 mg PO DAILY [facility] Last Admin: 11/17/24 07:59 Dose: 20 mg Documented By: DRUAN Glucose (Glucose Gel 15 Gm Gel..Gram.) 15 gm PO Q15M PRN; Protocol PRN Reason: per Hypoglycemia Standing Ord. Insulin Human Lispro (Insulin Lispro 100 Unit/Ml 3 Ml Vial) 0 unit SUBCUT QIDACHS [facility]; Protocol Last Admin: 11/17/24 11:39 Dose: 4 unit Documented By: DURAN Lactulose (Lactulose 20 Gm/30 Ml Solution) 10 gm PO BID PRN PRN Reason: Constipation Lactulose (Lactulose 20 Gm/30 Ml Solution) 30 gm PO DAILY [facility] Last Admin: 11/17/24 07:57 Dose: 30 gm Documented By: DURAN Magnesium Hydroxide (Milk Of Magnesia 30 Ml Oral.Susp) 30 ml PO DAILY PRN PRN Reason: Constipation Last Admin: 11/15/24 21:03 Dose: 30 ml Documented By: TOMASA Melatonin (Melatonin 3 Mg Tablet) 6 mg PO BEDTIME PRN PRN Reason: Insomnia Last Admin: 11/13/24 23:57 Dose: 6 mg Documented By: MAKENZIE Metformin HCl (Metformin Hcl 1,000 Mg Tablet) 1,000 mg PO BID [facility] Last Admin: 11/17/24 07:59 Dose: 1,000 mg Documented By: DURAN Metoprolol Tartrate (Metoprolol Tartrate 25 Mg Tablet) 25 mg PO BID [facility]; Protocol Last Admin: 11/17/24 07:59 Dose: 25 mg Documented By: DURAN Omeprazole (Omeprazole 20 Mg Capsule.Dr) 20 mg PO DAILY@0630 [facility] Last Admin: 11/17/24 06:31 Dose: 20 mg Documented By: TOMASA Ondansetron HCl (Ondansetron Hcl 4 Mg/2 Ml Vial) 4 mg IVPUSH Q8H PRN PRN Reason: Nausea and Vomiting Prednisone (Prednisone 20 Mg Tablet) 40 mg PO DAILY [facility] Last Admin: 11/17/24 07:58 Dose: 40 mg Documented By: DURAN Senna (Sennosides 8.6 Mg Tablet) 17.2 mg PO BID [facility] Last Admin: 11/17/24 07:58 Dose: 17.2 mg Documented By: DURAN Sodium Chloride (0.9 % Sodium Chloride Flush 3 Ml Syringe) 3 ml IVFLUSH QSHIFT [facility] Last Admin: 11/17/24 07:59 Dose: 3 ml Documented By: DURAN Labs 11/14/24 07:26 11/14/24 07:26 Labs: Laboratory Results - last 24 hr 11/16/24 11/16/24 11/17/24 16:13 20:49 07:11 POC Glucose 235 H 240 H 162 H 11/17/24 11/17/24 10:23 11:29 POC Glucose 218 H 228 H Assessment and Plan (1) Acute exacerbation of COPD with asthma: Status: Acute (2) Diabetes mellitus with hyperglycemia, without long-term current use of insulin: Status: Acute Plan 74-year-old male with past medical history of lung cancer status post chemo and radiation and chronic respiratory failure 3 L oxygen at home presents with worsening shortness of breath over the last 2 weeks. Recently hospitalized 619 through 09/30/2024 for same at. He endorses a slight weight gain of 7or 8 lb over the last month he has productive cough. Workup including chest x-ray failed to demonstrate an acute infiltrate however did demonstrate a large stool burden Severe constipation GI consultation> plan for colo to assess for possible malignancy, stop lactulose as causes increase in bloating start golytely for prep clear liquids COPD exacerbation. Resolved ceftriaxone/azithromycin, Switch to Ceftin on DC s/p solumedrol 60 mg IV q.6 hours started Prednisone 40 mg daily, taper DuoNebs q.4 hours while awake titrate O2 to maintain sats greater than or equal to 92% Diabetes type 2 sugars rising in response to steroids continue outpatient therapies lispro correctional scale adjust as indicated CAD stable and well compensated Full code Lovenox Quality Stroke Does the patient have a stroke diagnosis?: No VTE Prior VTE?: No VTE Risk Level:: Medical - moderate - high VTE Device Contraindication: Treatment Not Indicated VTE Drug Contraindication: N/A - Med Ordered
[2024-11-17 16:41] LABS: Glucose, Whole Blood 244 mg/dL (60-115)
[2024-11-17] MEDS: PEG 3350/Na Sulf,Bicarb,Cl/KCL 4,000 ML SOLN.RECON 4000 ML PO (18:12)
[2024-11-17 20:40] LABS: Glucose, Whole Blood 342 mg/dL (60-115)
[2024-11-18] VITALS (7 sets, daily range): BP systolic 111–139; BP diastolic 52–65; PULSE 65–100; RESP 12–20; TEMP 36.1–36.9; O2SAT 90–98
[2024-11-18 06:27] LABS: Glucose, Whole Blood 102 mg/dL (60-115)
[2024-11-18] MEDS: levalbuterol HCL 2.5 MG, Ipratropium Bromide 0.5 MG INHALE ×3 (06:35→20:03)
[2024-11-18 06:43] LABS: Alanine Aminotransferase 18 U/L (0-40); Albumin Level 3.7 g/dL (3.5-5.0); Alkaline Phosphatase 75 U/L (39-117); Anion Gap 13 (12-20); Aspartate Amino Transferase 33 U/L (5-37); Blood Urea Nitrogen 17 mg/dL (9-16); Calcium 8.2 mg/dL (8.4-10.2); Carbon Dioxide 40 mmol/L (22-29); Chloride 89 mmol/L (96-108); Creatinine Clr Calc Pharmacy 95.5; Estimated Glomerular Filt Rate > 60; Potassium 4.4 mmol/L (3.3-5.1); Sodium 138 mmol/L (135-145); Total Protein 6.1 g/dL (6.5-8.0)
[2024-11-18 07:55] LABS: Glucose, Whole Blood 191 mg/dL (60-115)
--- NOTE | 2024-11-18 08:04 | PM.PNGS ---
Subjective Subjective Date of Service: 11/18/24 Interval history: Has had multiple bowel movements after laxatives Feels better with regards to the abdomen Says he has some dizziness No nausea or vomiting No Abdominal pain Physical Exam Vital Signs: Vital Signs: Last Vital Signs Temp 97.0 F 11/18/24 06:59 Pulse 68 11/18/24 06:59 Resp 12 11/18/24 06:59 BP 111/52 L 11/18/24 06:59 Pulse Ox 95 11/18/24 06:59 O2 Del Method Nasal Cannula 11/18/24 06:59 O2 Flow Rate 3 11/18/24 06:59 Oxygen Flow Rate 3 11/11/24 12:46 BMI result Body Mass Index 33.6 Const: Other: Sitting up on bed General: comfortable and no acute distress Resp: Effort & Inspection: normal respiratory effort Cardio: Rate: regular rate GI: Palpation (GI): Soft to palpation, not firm, nontender and no guarding Objective Data Active Medications Acetaminophen (Acetaminophen 325 Mg Tablet) 650 mg PO Q6H PRN PRN Reason: Pain, Mild 1-3,fever,headache Aspirin (Aspirin 81 Mg Tab.Chew) 81 mg PO DAILY [facility] Last Admin: 11/17/24 07:59 Dose: 81 mg Documented By: DURAN Atorvastatin Calcium (Atorvastatin Calcium 80 Mg Tablet) 80 mg PO BEDTIME [facility] Last Admin: 11/17/24 21:23 Dose: 80 mg Documented By: ANGELA Bisacodyl (Bisacodyl 5 Mg Tablet.Dr) 10 mg PO DAILY PRN PRN Reason: Constipation Calcium Carbonate (Calcium Carbonate 750 Mg Tab.Chew) 750 mg PO Q4H PRN PRN Reason: Heartburn Calcium Carbonate/Cholecalciferol (Calcium + Vitamin D 250 Mg Tablet) 500 mg PO DAILY [facility] Last Admin: 11/17/24 07:58 Dose: 500 mg Documented By: DURAN Levalbuterol HCl 2.5 mg/ (Ipratropium [place] 0.5 mg) 0 mg INHALE RQ6H [facility] Last Admin: 11/18/24 06:35 Dose: 1 dose Documented By: JEWELS Dextrose (Dextrose 50 % 25 Gm/50 Ml Syringe) 25 gm IVPUSH Q15M PRN; Protocol PRN Reason: per Hypoglycemia Standing Ord. Escitalopram Oxalate (Escitalopram Oxalate 20 Mg Tablet) 20 mg PO DAILY [facility] Last Admin: 11/17/24 07:59 Dose: 20 mg Documented By: DURAN Glucose (Glucose Gel 15 Gm Gel..Gram.) 15 gm PO Q15M PRN; Protocol PRN Reason: per Hypoglycemia Standing Ord. Insulin Human Lispro (Insulin Lispro 100 Unit/Ml 3 Ml Vial) 0 unit SUBCUT QIDACHS [facility]; Protocol Last Admin: 11/17/24 21:24 Dose: 8 unit Documented By: ANGELA Lactulose (Lactulose 20 Gm/30 Ml Solution) 10 gm PO BID PRN PRN Reason: Constipation Magnesium Hydroxide (Milk Of Magnesia 30 Ml Oral.Susp) 30 ml PO DAILY PRN PRN Reason: Constipation Last Admin: 11/15/24 21:03 Dose: 30 ml Documented By: TOMASA Melatonin (Melatonin 3 Mg Tablet) 6 mg PO BEDTIME PRN PRN Reason: Insomnia Last Admin: 11/13/24 23:57 Dose: 6 mg Documented By: MAKENZIE Metformin HCl (Metformin Hcl 1,000 Mg Tablet) 1,000 mg PO BID [facility] Last Admin: 11/17/24 21:23 Dose: 1,000 mg Documented By: ANGELA Metoprolol Tartrate (Metoprolol Tartrate 25 Mg Tablet) 25 mg PO BID [facility]; Protocol Last Admin: 11/17/24 21:23 Dose: 25 mg Documented By: ANGELA Omeprazole (Omeprazole 20 Mg Capsule.Dr) 20 mg PO DAILY@0630 [facility] Last Admin: 11/18/24 06:27 Dose: 20 mg Documented By: ANGELA Ondansetron HCl (Ondansetron Hcl 4 Mg/2 Ml Vial) 4 mg IVPUSH Q8H PRN PRN Reason: Nausea and Vomiting Prednisone (Prednisone 20 Mg Tablet) 40 mg PO DAILY [facility] Stop: 11/20/24 23:59 Last Admin: 11/17/24 07:58 Dose: 40 mg Documented By: DURAN Senna (Sennosides 8.6 Mg Tablet) 17.2 mg PO BID [facility] Last Admin: 11/17/24 21:22 Dose: 17.2 mg Documented By: ANGELA Sodium Chloride (0.9 % Sodium Chloride Flush 3 Ml Syringe) 3 ml IVFLUSH QSHIFT [facility] Last Admin: 11/17/24 21:25 Dose: 3 ml Documented By: ANGELA Labs 11/14/24 07:26 11/18/24 05:53 Labs: Laboratory Results - last 24 hr 11/17/24 11/17/24 11/17/24 10:23 11:29 16:30 Anion Gap Estim Creat Clear Calc Estimated GFR POC Glucose 218 H 228 H 244 H Random Glucose Calcium Total Bilirubin Direct Bilirubin AST ALT Alkaline Phosphatase Total Protein Albumin 11/17/24 11/18/24 11/18/24 20:17 05:53 06:20 Anion Gap 13 Estim Creat Clear Calc 95.5 Estimated GFR > 60 POC Glucose 342 H 102 Random Glucose 95 Calcium 8.2 L D Total Bilirubin 0.4 Direct Bilirubin 0.1 AST 33 ALT 18 Alkaline Phosphatase 75 Total Protein 6.1 L Albumin 3.7 11/18/24 07:52 Anion Gap Estim Creat Clear Calc Estimated GFR POC Glucose 191 H Random Glucose Calcium Total Bilirubin Direct Bilirubin AST ALT Alkaline Phosphatase Total Protein Albumin Procedures Date of Service Date of Service: 11/18/24 Progress Note: A&P Assessment and plan (1) Chronic constipation: Status: Acute Assessment and Plan: Now with multiple BMs and Abdominal exam very benign Continue a regimen of laxatives, Metamucil, and p.r.n. MiraLax If adequately prepped, should have CT colonography down the line Rest of care as per the hospitalist service GI follow-up Time Spent With Patient Time: Total time managing care of this patient today ____ minutes. Quality Stroke Does the patient have a stroke diagnosis?: No VTE Prior VTE?: No VTE Risk Level:: Medical - moderate - high VTE Device Contraindication: Treatment Not Indicated VTE Drug Contraindication: N/A - Med Ordered
[2024-11-18] MEDS: 0.9 % Sodium Chloride Flush 3 ML SYRINGE IVFLUSH ×3 (08:10→21:32)
[2024-11-18] MEDS: Calcium + Vitamin D 250 MG TABLET 500 MG PO (08:11)
--- NOTE | 2024-11-18 10:22 | P.PNGS_ITS ---
Subjective Subjective Date of Service: 11/18/24 Interval history: Patient reports multiple bowel movements during the night mostly liquid. Reports less distention currently. Physical Exam 2 Vital Signs: Vital Signs: Last Vital Signs Temp 97.0 F 11/18/24 06:59 Pulse 68 11/18/24 06:59 Resp 12 11/18/24 06:59 BP 111/52 L 11/18/24 06:59 Pulse Ox 95 11/18/24 06:59 O2 Del Method Nasal Cannula 11/18/24 06:59 O2 Flow Rate 3 11/18/24 06:59 Oxygen Flow Rate 3 11/11/24 12:46 BMI result Body Mass Index 33.6 Const: General: comfortable Nutritional Appearance: well nourished O rientation/consciousness: patient oriented x3 Resp: Effort & Inspection: audible wheezes, no cough and tachypneic GI: Palpation (GI): Soft to palpation, nontender and no guarding P ercussion: Yes normal to percussion Neuro: General: patient oriented x3 Objective Data Active Medications Acetaminophen (Acetaminophen 325 Mg Tablet) 650 mg PO Q6H PRN PRN Reason: Pain, Mild 1-3,fever,headache Aspirin (Aspirin 81 Mg Tab.Chew) 81 mg PO DAILY [facility] Last Admin: 11/18/24 08:11 Dose: 81 mg Documented By: BHAVESH Atorvastatin Calcium (Atorvastatin Calcium 80 Mg Tablet) 80 mg PO BEDTIME [facility] Last Admin: 11/17/24 21:23 Dose: 80 mg Documented By: ANGELA Bisacodyl (Bisacodyl 5 Mg Tablet.Dr) 10 mg PO DAILY PRN PRN Reason: Constipation Calcium Carbonate (Calcium Carbonate 750 Mg Tab.Chew) 750 mg PO Q4H PRN PRN Reason: Heartburn Calcium Carbonate/Cholecalciferol (Calcium + Vitamin D 250 Mg Tablet) 500 mg PO DAILY [facility] Last Admin: 11/18/24 08:11 Dose: 500 mg Documented By: BHAVESH Levalbuterol HCl 2.5 mg/ (Ipratropium [place] 0.5 mg) 0 mg INHALE RQ6H [facility] Last Admin: 11/18/24 06:35 Dose: 1 dose Documented By: JEWELS Dextrose (Dextrose 50 % 25 Gm/50 Ml Syringe) 25 gm IVPUSH Q15M PRN; Protocol PRN Reason: per Hypoglycemia Standing Ord. Escitalopram Oxalate (Escitalopram Oxalate 20 Mg Tablet) 20 mg PO DAILY [facility] Last Admin: 11/18/24 08:11 Dose: 20 mg Documented By: BHAVESH Glucose (Glucose Gel 15 Gm Gel..Gram.) 15 gm PO Q15M PRN; Protocol PRN Reason: per Hypoglycemia Standing Ord. Insulin Human Lispro (Insulin Lispro 100 Unit/Ml 3 Ml Vial) 0 unit SUBCUT QIDACHS [facility]; Protocol Last Admin: 11/18/24 08:10 Dose: 2 unit Documented By: BHAVESH Lactulose (Lactulose 20 Gm/30 Ml Solution) 10 gm PO BID PRN PRN Reason: Constipation Lorazepam (Lorazepam 0.5 Mg Tablet) 0.5 mg PO BID PRN PRN Reason: Anxiety Magnesium Hydroxide (Milk Of Magnesia 30 Ml Oral.Susp) 30 ml PO DAILY PRN PRN Reason: Constipation Last Admin: 11/15/24 21:03 Dose: 30 ml Documented By: TOMASA Melatonin (Melatonin 3 Mg Tablet) 6 mg PO BEDTIME PRN PRN Reason: Insomnia Last Admin: 11/13/24 23:57 Dose: 6 mg Documented By: MAKENZIE Metformin HCl (Metformin Hcl 1,000 Mg Tablet) 1,000 mg PO BID [facility] Last Admin: 11/18/24 08:10 Dose: 1,000 mg Documented By: BHAVESH Metoprolol Tartrate (Metoprolol Tartrate 25 Mg Tablet) 25 mg PO BID [facility]; Protocol Last Admin: 11/18/24 08:10 Dose: 25 mg Documented By: BHAVESH Omeprazole (Omeprazole 20 Mg Capsule.Dr) 20 mg PO DAILY@0630 [facility] Last Admin: 11/18/24 06:27 Dose: 20 mg Documented By: ANGELA Ondansetron HCl (Ondansetron Hcl 4 Mg/2 Ml Vial) 4 mg IVPUSH Q8H PRN PRN Reason: Nausea and Vomiting Prednisone (Prednisone 20 Mg Tablet) 40 mg PO DAILY [facility] Stop: 11/20/24 23:59 Last Admin: 11/18/24 08:11 Dose: 40 mg Documented By: BHAVESH Senna (Sennosides 8.6 Mg Tablet) 17.2 mg PO BID [facility] Last Admin: 11/18/24 08:15 Dose: 17.2 mg Documented By: BHAVESH Sodium Chloride (0.9 % Sodium Chloride Flush 3 Ml Syringe) [facility] Last Admin: 11/18/24 08:10 Dose: 3 ml Documented By: BHAVESH Labs 11/14/24 07:26 11/18/24 05:53 Labs: Laboratory Results - last 24 hr 11/17/24 11/17/24 11/17/24 10:23 11:29 16:30 Anion Gap Estim Creat Clear Calc Estimated GFR POC Glucose 218 H 228 H 244 H Random Glucose Calcium Total Bilirubin Direct Bilirubin AST ALT Alkaline Phosphatase Total Protein Albumin 11/17/24 11/18/24 11/18/24 20:17 05:53 06:20 Anion Gap 13 Estim Creat Clear Calc 95.5 Estimated GFR > 60 POC Glucose 342 H 102 Random Glucose 95 Calcium 8.2 L D Total Bilirubin 0.4 Direct Bilirubin 0.1 AST 33 ALT 18 Alkaline Phosphatase 75 Total Protein 6.1 L Albumin 3.7 11/18/24 07:52 Anion Gap Estim Creat Clear Calc Estimated GFR POC Glucose 191 H Random Glucose Calcium Total Bilirubin Direct Bilirubin AST ALT Alkaline Phosphatase Total Protein Albumin Procedures Date of Service Date of Service: 11/18/24 Progress Note: A&P Assessment and plan (1) Chronic constipation: Status: Acute (2) Positive colorectal cancer screening using Cologuard test: Status: Acute Plan 74-year-old male patient well known to service with a history of COPD, chronic constipation, and a positive Cologuard test with a recurrent episode of large bowel obstruction. He is now opened however workup of the Cologuard test is pending. He was felt not to be a candidate for colonoscopy due to his extensive medical history and risk for anesthesia. Per Dr. Clements, CT colonography should be performed while inpatient. Surgical options include sigmoid colectomy versus diverting colostomy for both options with the difficult due to the patient's underlying medical conditions and risk for anesthesia. We will await the CT colonography. Time Spent With Patient Time: Total time managing care of this patient today ____ minutes. Quality Stroke Does the patient have a stroke diagnosis?: No VTE Prior VTE?: No VTE Risk Level:: Medical - moderate - high VTE Device Contraindication: Treatment Not Indicated VTE Drug Contraindication: N/A - Med Ordered
--- NOTE | 2024-11-18 11:16 | P.PNIM_ITS ---
Subjective Subjective Date of Service: 11/18/24 Interval History: had successful bms, weak Physical Exam 2 Exam: Exam: General: AO X 3, no acute distress Resp: CTA bilateral, no accessory muscles used CVS: S1,S2,RRR GI: soft, non tender, non distended Neuro: motor grossly intact, alert Psych: appropriate affect, appropriate insight Vital Signs: Vital Signs: Last Vital Signs Temp 97.0 F 11/18/24 06:59 Pulse 68 11/18/24 06:59 Resp 12 11/18/24 06:59 BP 111/52 L 11/18/24 06:59 Pulse Ox 95 11/18/24 06:59 O2 Del Method Nasal Cannula 11/18/24 06:59 O2 Flow Rate 3 11/18/24 06:59 Oxygen Flow Rate 3 11/11/24 12:46 BMI result Body Mass Index 33.6 Objective Data Active Medications Acetaminophen (Acetaminophen 325 Mg Tablet) 650 mg PO Q6H PRN PRN Reason: Pain, Mild 1-3,fever,headache Aspirin (Aspirin 81 Mg Tab.Chew) 81 mg PO DAILY [facility] Last Admin: 11/18/24 08:11 Dose: 81 mg Documented By: BHAVESH Atorvastatin Calcium (Atorvastatin Calcium 80 Mg Tablet) 80 mg PO BEDTIME [facility] Last Admin: 11/17/24 21:23 Dose: 80 mg Documented By: ANGELA Bisacodyl (Bisacodyl 5 Mg Tablet.Dr) 10 mg PO DAILY PRN PRN Reason: Constipation Calcium Carbonate (Calcium Carbonate 750 Mg Tab.Chew) 750 mg PO Q4H PRN PRN Reason: Heartburn Calcium Carbonate/Cholecalciferol (Calcium + Vitamin D 250 Mg Tablet) 500 mg PO DAILY [facility] Last Admin: 11/18/24 08:11 Dose: 500 mg Documented By: BHAVESH Levalbuterol HCl 2.5 mg/ (Ipratropium [place] 0.5 mg) 0 mg INHALE RQ6H [facility] Last Admin: 11/18/24 06:35 Dose: 1 dose Documented By: JEWELS Dextrose (Dextrose 50 % 25 Gm/50 Ml Syringe) 25 gm IVPUSH Q15M PRN; Protocol PRN Reason: per Hypoglycemia Standing Ord. Escitalopram Oxalate (Escitalopram Oxalate 20 Mg Tablet) 20 mg PO DAILY [facility] Last Admin: 11/18/24 08:11 Dose: 20 mg Documented By: BHAVESH Glucose (Glucose Gel 15 Gm Gel..Gram.) 15 gm PO Q15M PRN; Protocol PRN Reason: per Hypoglycemia Standing Ord. Insulin Human Lispro (Insulin Lispro 100 Unit/Ml 3 Ml Vial) 0 unit SUBCUT QIDACHS [facility]; Protocol Last Admin: 11/18/24 08:10 Dose: 2 unit Documented By: BHAVESH Lactulose (Lactulose 20 Gm/30 Ml Solution) 10 gm PO BID PRN PRN Reason: Constipation Lorazepam (Lorazepam 0.5 Mg Tablet) 0.5 mg PO BID PRN PRN Reason: Anxiety Last Admin: 11/18/24 10:53 Dose: 0.5 mg Documented By: BHAVESH Magnesium Hydroxide (Milk Of Magnesia 30 Ml Oral.Susp) 30 ml PO DAILY PRN PRN Reason: Constipation Last Admin: 11/15/24 21:03 Dose: 30 ml Documented By: TOMASA Melatonin (Melatonin 3 Mg Tablet) 6 mg PO BEDTIME PRN PRN Reason: Insomnia Last Admin: 11/13/24 23:57 Dose: 6 mg Documented By: MAKENZIE Metformin HCl (Metformin Hcl 1,000 Mg Tablet) 1,000 mg PO BID [facility] Last Admin: 11/18/24 08:10 Dose: 1,000 mg Documented By: BHAVESH Metoprolol Tartrate (Metoprolol Tartrate 25 Mg Tablet) 25 mg PO BID [facility]; Protocol Last Admin: 11/18/24 08:10 Dose: 25 mg Documented By: BHAVESH Omeprazole (Omeprazole 20 Mg Capsule.) 20 mg PO DAILY@0630 [facility] Last Admin: 11/18/24 06:27 Dose: 20 mg Documented By: ANGELA Ondansetron HCl (Ondansetron Hcl 4 Mg/2 Ml Vial) 4 mg IVPUSH Q8H PRN PRN Reason: Nausea and Vomiting Prednisone (Prednisone 20 Mg Tablet) 40 mg PO DAILY [facility] Stop: 11/20/24 23:59 Last Admin: 11/18/24 08:11 Dose: 40 mg Documented By: BHAVESH Senna (Sennosides 8.6 Mg Tablet) 17.2 mg PO BID [facility] Last Admin: 11/18/24 08:15 Dose: 17.2 mg Documented By: BHAVESH Sodium Chloride (0.9 % Sodium Chloride Flush 3 Ml Syringe) 3 ml IVFLUSH QSHIFT [facility] Last Admin: 11/18/24 08:10 Dose: 3 ml Documented By: BHAVESH Labs 11/14/24 07:26 11/18/24 05:53 Labs: Laboratory Results - last 24 hr 11/17/24 11/17/24 11/17/24 11:29 16:30 20:17 Anion Gap Estim Creat Clear Calc Estimated GFR POC Glucose 228 H 244 H 342 H Random Glucose Calcium Total Bilirubin Direct Bilirubin AST ALT Alkaline Phosphatase Total Protein Albumin 11/18/24 11/18/24 11/18/24 05:53 06:20 07:52 Anion Gap 13 Estim Creat Clear Calc 95.5 Estimated GFR > 60 POC Glucose 102 191 H Random Glucose 95 Calcium 8.2 L D Total Bilirubin 0.4 Direct Bilirubin 0.1 AST 33 ALT 18 Alkaline Phosphatase 75 Total Protein 6.1 L Albumin 3.7 Assessment and Plan (1) CAD (coronary artery disease): Status: Acute Plan 74M PMH CAD, lung cancer status post chemo and radiation and chronic respiratory failure on 3 L home oxygen due to severe COPD, radiation fibrosis, hypertension, hyperlipidemia presented with shortness of breath, course complicated by severe constipation Recurrent large bowel obstruction Appears resolved, surgery appreciated we will need CT colonography COPD with acute decompensation Resolved, on prednisone, DuoNebs Diabetes Insulin sliding scale Coronary disease Aspirin, statin dvt prophylaxis - lovenox full code reason for continued hospitalization:ct colonography Quality Stroke Does the patient have a stroke diagnosis?: No VTE Prior VTE?: No VTE Risk Level:: Medical - moderate - high VTE Device Contraindication: Treatment Not Indicated VTE Drug Contraindication: N/A - Med Ordered
[2024-11-18 11:22] LABS: Glucose, Whole Blood 242 mg/dL (60-115)
--- NOTE | 2024-11-18 12:59 | P.CDIM_ITS ---
PROVIDER RESPONSE TEXT: To clarify, the appropriate diagnosis supported by the clinical indicators: Chronic Respiratory failure with hypoxia QUERY TEXT: PHYSICIAN'S DOCUMENTATION REQUEST Date of Query: 11/18/2024 12:45 PM EDT Patient Name: Fitz Reed Admit Date: 11/11/2024 Dear Jose Aparicio MD, A review of the medical record indicates additional documentation may be needed. Please review below and update the documentation accordingly. Chronic Respiratory Failure was documented on 11/18/24. Clinical Indicators: patient is on 3L home oxygen PMH: COPD, radiation fibrosis presented with shortness of breath If possible, please further clarify the type and acuity of respiratory failure: Chronic Respiratory failure with hypoxia Other (explain) Clinically unable to determine (explain) Thank you, Dianne Vazquez RN Use of terms such as suspected, likely, concern for, or probable (associated with a specific diagnosis that is being evaluated, monitored, or treated as if it exists) are acceptable and can be coded in the inpatient setting, when documented at the time of discharge. Please use your independent medical judgment in providing your response. THIS QUERY IS PART OF THE PERMANENT MEDICAL RECORD
--- NOTE | 2024-11-18 14:26 | MHC.CM.PN ---
EMR REVIEWED AND PER MD ROUNDS, PT WILL HAVE SURGICAL CONSULT FOR + COLOGUARD, S/P BOWEL OBSTRUCTION. CM WILL CONTINUE TO FOLLOW FOR ANY CHANGE TO PLAN.
[2024-11-18 16:47] LABS: Glucose, Whole Blood 287 mg/dL (60-115)
--- NOTE | 2024-11-18 17:23 | P.PNGI_ITS ---
Subjective Subjective Date of Service: 11/18/24 Interval History: Seen at bedside. Reports good large BMs yesterday but had trouble moving bowels again today. Appreciate surgery input. Critical Care Time (minutes): 0 Physical Exam 2 Exam: Exam: No apparent distress Nonicteric Slightly tachypneac today Abdomen soft, much less distended Vital Signs: Vital Signs: Last Vital Signs Temp 97.4 F 11/18/24 16:00 Pulse 65 11/18/24 16:00 Resp 18 11/18/24 16:00 BP 115/65 11/18/24 16:00 Pulse Ox 95 11/18/24 16:00 O2 Del Method Nasal Cannula 11/18/24 16:00 O2 Flow Rate 3 11/18/24 16:00 Oxygen Flow Rate 3 11/11/24 12:46 BMI result Body Mass Index 33.6 Objective Data Labs 11/14/24 07:26 11/18/24 05:53 Labs: Laboratory Results - last 24 hr 11/17/24 11/18/24 11/18/24 20:17 05:53 06:20 Sodium 138 Potassium 4.4 Chloride 89 L Carbon Dioxide 40 H* Anion Gap 13 BUN 17 H Creatinine 0.73 Estim Creat Clear Calc 95.5 Estimated GFR > 60 POC Glucose 342 H 102 Random Glucose 95 Calcium 8.2 L D Total Bilirubin 0.4 Direct Bilirubin 0.1 AST 33 ALT 18 Alkaline Phosphatase 75 Total Protein 6.1 L Albumin 3.7 11/18/24 11/18/24 11/18/24 07:52 11:01 16:41 Sodium Potassium Chloride Carbon Dioxide Anion Gap BUN Creatinine Estim Creat Clear Calc Estimated GFR POC Glucose 191 H 242 H 287 H Random Glucose Calcium Total Bilirubin Direct Bilirubin AST ALT Alkaline Phosphatase Total Protein Albumin Procedures Date of Service Date of Service: 11/18/24 Progress Note: A&P Assessment and plan (1) Chronic constipation: Status: Acute (2) Diverticular disease: Status: Acute (3) Positive colorectal cancer screening using Cologuard test: Status: Acute (4) COPD, severe: Status: Acute Plan Likely has sigmoid narrowing due to diverticular disease which is contributing to his recurrent severe constipation. Proximal right colon lesion in the context of positive Cologuard can not be excluded. Appreciate surgery input, depending on overall cardiopulmonary status, could potentially be a candidate for diverting ostomy. However, before undertaking any surgical intervention, the positive Cologuard test will need to be evaluated further. Plan: -Please keep on clear liquid diet. -PEG prep tmrw to prepare for CT colonography tentatively 11/20. -Of note - pt noted to be slightly more short of breath today with uptrending bicarb, pulm eval pending Time Spent With Patient Time: Total time managing care of this patient today ____ minutes. Quality Stroke Does the patient have a stroke diagnosis?: No VTE Prior VTE?: No VTE Risk Level:: Medical - moderate - high VTE Device Contraindication: Treatment Not Indicated VTE Drug Contraindication: N/A - Med Ordered
[2024-11-18 21:08] LABS: Glucose, Whole Blood 246 mg/dL (60-115)
[2024-11-19] VITALS (8 sets, daily range): BP systolic 99–135; BP diastolic 53–63; PULSE 64–89; RESP 16–18; TEMP 36.3–36.7; O2SAT 92–99
[2024-11-19] MEDS: levalbuterol HCL 2.5 MG, Ipratropium Bromide 0.5 MG INHALE ×4 (06:06→23:41)
[2024-11-19 07:50] LABS: Glucose, Whole Blood 158 mg/dL (60-115)
[2024-11-19] MEDS: Calcium + Vitamin D 250 MG TABLET 500 MG PO (08:18)
[2024-11-19] MEDS: 0.9 % Sodium Chloride Flush 3 ML SYRINGE IVFLUSH ×3 (08:22→20:49)
--- NOTE | 2024-11-19 09:55 | HO.PM.IMPN ---
Subjective Subjective Date of Service: 11/19/24 Interval History: had successful bms, weak Physical Exam Exam: Exam: No apparent distress Nonicteric Slightly tachypneac today Abdomen soft, much less distended Vital Signs: Vital Signs: Last Vital Signs Temp 97.5 F 11/19/24 07:50 Pulse 77 11/19/24 07:50 Resp 16 11/19/24 07:50 BP 99/53 L 11/19/24 07:50 Pulse Ox 92 11/19/24 07:50 O2 Del Method Nasal Cannula 11/19/24 07:50 O2 Flow Rate 3 11/19/24 07:50 Oxygen Flow Rate 3 11/11/24 12:46 BMI result Body Mass Index 33.6 Objective Data Active Medications Acetaminophen (Acetaminophen 325 Mg Tablet) 650 mg PO Q6H PRN PRN Reason: Pain, Mild 1-3,fever,headache Aspirin (Aspirin 81 Mg Tab.Chew) 81 mg PO DAILY [facility] Last Admin: 11/19/24 08:19 Dose: 81 mg Documented By: MAYA Atorvastatin Calcium (Atorvastatin Calcium 80 Mg Tablet) 80 mg PO BEDTIME [facility] Last Admin: 11/18/24 21:30 Dose: 80 mg Documented By: YENNY Bisacodyl (Bisacodyl 5 Mg Tablet.Dr) 10 mg PO DAILY PRN PRN Reason: Constipation Calcium Carbonate (Calcium Carbonate 750 Mg Tab.Chew) 750 mg PO Q4H PRN PRN Reason: Heartburn Calcium Carbonate/Cholecalciferol (Calcium + Vitamin D 250 Mg Tablet) 500 mg PO DAILY [facility] Last Admin: 11/19/24 08:18 Dose: 500 mg Documented By: MAYA Levalbuterol HCl 2.5 mg/ (Ipratropium [place] 0.5 mg) 0 mg INHALE RQ6H [facility] Last Admin: 11/19/24 06:06 Dose: 1 dose Documented By: PRANAY Dextrose (Dextrose 50 % 25 Gm/50 Ml Syringe) 25 gm IVPUSH Q15M PRN; Protocol PRN Reason: per Hypoglycemia Standing Ord. Enoxaparin Sodium (Enoxaparin Sodium 40 Mg/0.4 Ml Syringe) 40 mg SUBCUT Q24H [facility] Escitalopram Oxalate (Escitalopram Oxalate 20 Mg Tablet) 20 mg PO DAILY [facility] Last Admin: 11/19/24 08:19 Dose: 20 mg Documented By: MAYA Glucose (Glucose Gel 15 Gm Gel..Gram.) 15 gm PO Q15M PRN; Protocol PRN Reason: per Hypoglycemia Standing Ord. Insulin Human Lispro (Insulin Lispro 100 Unit/Ml 3 Ml Vial) 0 unit SUBCUT QIDACHS [facility]; Protocol Last Admin: 11/19/24 08:19 Dose: 2 unit Documented By: MAYA Lactulose (Lactulose 20 Gm/30 Ml Solution) 10 gm PO BID PRN PRN Reason: Constipation Lorazepam (Lorazepam 0.5 Mg Tablet) 0.5 mg PO BID PRN PRN Reason: Anxiety Last Admin: 11/18/24 23:00 Dose: 0.5 mg Documented By: YENNY Magnesium Hydroxide (Milk Of Magnesia 30 Ml Oral.Susp) 30 ml PO DAILY PRN PRN Reason: Constipation Last Admin: 11/15/24 21:03 Dose: 30 ml Documented By: TOMASA Melatonin (Melatonin 3 Mg Tablet) 6 mg PO BEDTIME PRN PRN Reason: Insomnia Last Admin: 11/13/24 23:57 Dose: 6 mg Documented By: MAKENZIE Metformin HCl (Metformin Hcl 1,000 Mg Tablet) 1,000 mg PO BID [facility] Last Admin: 11/19/24 08:36 Dose: Not Given Documented By: MAYA Non-Admin Reason: Physician Held Med Metoprolol Tartrate (Metoprolol Tartrate 25 Mg Tablet) 25 mg PO BID [facility]; Protocol Last Admin: 11/19/24 08:19 Dose: 25 mg Documented By: MAYA Omeprazole (Omeprazole 20 Mg Capsule.) 20 mg PO DAILY@0630 [facility] Last Admin: 11/19/24 05:49 Dose: 20 mg Documented By: YENNY Ondansetron HCl (Ondansetron Hcl 4 Mg/2 Ml Vial) 4 mg IVPUSH Q8H PRN PRN Reason: Nausea and Vomiting Prednisone (Prednisone 20 Mg Tablet) 40 mg PO DAILY [facility] Stop: 11/20/24 23:59 Last Admin: 11/19/24 08:19 Dose: 40 mg Documented By: MAYA Senna (Sennosides 8.6 Mg Tablet) 17.2 mg PO BID [facility] Last Admin: 11/19/24 08:19 Dose: 17.2 mg Documented By: AMYA Sodium Chloride (0.9 % Sodium Chloride Flush 3 Ml Syringe) [facility] Last Admin: 11/19/24 08:22 Dose: 3 ml Documented By: MAYA Labs 11/14/24 07:26 11/18/24 05:53 Labs: Laboratory Results - last 24 hr 11/18/24 11/18/24 11/18/24 11:01 16:41 20:45 POC Glucose 242 H 287 H 246 H 11/19/24 07:31 POC Glucose 158 H Assessment and Plan (1) CAD (coronary artery disease): Status: Acute Plan 74M PMH CAD, lung cancer status post chemo and radiation and chronic respiratory failure on 3 L home oxygen due to severe COPD, radiation fibrosis, hypertension, hyperlipidemia presented with shortness of breath, course complicated by severe constipation Recurrent large bowel obstruction Appears resolved, surgery appreciated will need inpatient CT colonography COPD with acute decompensation Resolved, on prednisone, DuoNebs Diabetes Insulin sliding scale Coronary disease Aspirin, statin dvt prophylaxis - lovenox full code reason for continued hospitalization:ct colonography Quality Stroke Does the patient have a stroke diagnosis?: No VTE Prior VTE?: No VTE Risk Level:: Medical - moderate - high VTE Device Contraindication: Treatment Not Indicated VTE Drug Contraindication: N/A - Med Ordered
[2024-11-19 11:26] LABS: Glucose, Whole Blood 136 mg/dL (60-115)
--- NOTE | 2024-11-19 11:53 | PM.PNGS ---
Subjective Subjective Date of Service: 11/19/24 <True Membreno PA-C - Last Filed: 11/19/24 11:59> 11/19/24 <Crescencio Arthur MD - Last Filed: 11/19/24 12:00> Interval history: no acute events, passed more flatus and small BM. feels much better today <True Membreno PA-C - Last Filed: 11/19/24 11:59> Physical Exam Vital Signs: Vital Signs: Last Vital Signs Temp 97.5 F 11/19/24 07:50 Pulse 66 11/19/24 11:39 Resp 16 11/19/24 11:39 BP 99/53 L 11/19/24 07:50 Pulse Ox 92 11/19/24 07:50 O2 Del Method Nasal Cannula 11/19/24 07:50 O2 Flow Rate 3 11/19/24 07:50 Oxygen Flow Rate 3 11/11/24 12:46 BMI result Body Mass Index 33.6 <True Membreno PA-C - Last Filed: 11/19/24 11:59> Const: General: comfortable and no acute distress <True Membreno PA-C - Last Filed: 11/19/24 11:59> Orientation/consciousness: patient oriented x3 <True Membreno PA-C - Last Filed: 11/19/24 11:59> Resp: Effort & Inspection: normal respiratory effort and able to speak in complete sentences <True Membreno PA-C - Last Filed: 11/19/24 11:59> GI: Inspection: Yes distended (mild) <True Membreno PA-C - Last Filed: 11/19/24 11:59> Palpation (GI): Soft to palpation, nontender, no guarding and not rigid <True Membreno PA-C - Last Filed: 11/19/24 11:59> Neuro: General: patient oriented x3 <ISAÍAS Vázquez Last Filed: 11/19/24 11:59> Objective Data Active Medications Acetaminophen (Acetaminophen 325 Mg Tablet) 650 mg PO Q6H PRN PRN Reason: Pain, Mild 1-3,fever,headache Aspirin (Aspirin 81 Mg Tab.Chew) 81 mg PO DAILY [facility] Last Admin: 11/19/24 08:19 Dose: 81 mg Documented By: MAYA Atorvastatin Calcium (Atorvastatin Calcium 80 Mg Tablet) 80 mg PO BEDTIME [facility]ENDING [facility] TO [facility] Last Admin: 11/18/24 21:30 Dose: 80 mg Documented By: YENNY Bisacodyl (Bisacodyl 5 Mg Tablet.Dr) 10 mg PO DAILY PRN PRN Reason: Constipation Calcium Carbonate (Calcium Carbonate 750 Mg Tab.Chew) 750 mg PO Q4H PRN PRN Reason: Heartburn Calcium Carbonate/Cholecalciferol (Calcium + Vitamin D 250 Mg Tablet) 500 mg PO DAILY [facility] Last Admin: 11/19/24 08:18 Dose: 500 mg Documented By: MAYA Levalbuterol HCl 2.5 mg/ (Ipratropium [place] 0.5 mg) 0 mg INHALE RQ6H [facility] Last Admin: 11/19/24 11:37 Dose: 1 dose Documented By: ELENA Dextrose (Dextrose 50 % 25 Gm/50 Ml Syringe) 25 gm IVPUSH Q15M PRN; Protocol PRN Reason: per Hypoglycemia Standing Ord. Enoxaparin Sodium (Enoxaparin Sodium 40 Mg/0.4 Ml Syringe) 40 mg SUBCUT Q24H [facility]ENDING [facility] Escitalopram Oxalate (Escitalopram Oxalate 20 Mg Tablet) 20 mg PO DAILY [facility] Last Admin: 11/19/24 08:19 Dose: 20 mg Documented By: MAYA Glucose (Glucose Gel 15 Gm Gel..Gram.) 15 gm PO Q15M PRN; Protocol PRN Reason: per Hypoglycemia Standing Ord. Insulin Human Lispro (Insulin Lispro 100 Unit/Ml 3 Ml Vial) 0 unit SUBCUT QIDACHS [facility]ENDING [facility] TO [facility]; Protocol Last Admin: 11/19/24 11:42 Dose: Not Given Documented By: MAYA Non-Admin Reason: No Insulin Coverage Lactulose (Lactulose 20 Gm/30 Ml Solution) 10 gm PO BID PRN PRN Reason: Constipation Lorazepam (Lorazepam 0.5 Mg Tablet) 0.5 mg PO BID PRN PRN Reason: Anxiety Last Admin: 11/18/24 23:00 Dose: 0.5 mg Documented By: YENNY Magnesium Hydroxide (Milk Of Magnesia 30 Ml Oral.Susp) 30 ml PO DAILY PRN PRN Reason: Constipation Last Admin: 11/15/24 21:03 Dose: 30 ml Documented By: TOMASA Melatonin (Melatonin 3 Mg Tablet) 6 mg PO BEDTIME PRN PRN Reason: Insomnia Last Admin: 11/13/24 23:57 Dose: 6 mg Documented By: MAKENZIE Metformin HCl (Metformin Hcl 1,000 Mg Tablet) 1,000 mg PO BID [facility] Last Admin: 11/19/24 08:36 Dose: Not Given Documented By: MAYA Non-Admin Reason: Physician Held Med Metoprolol Tartrate (Metoprolol Tartrate 25 Mg Tablet) 25 mg PO BID [facility]; Protocol Last Admin: 11/19/24 08:19 Dose: 25 mg Documented By: MAYA Omeprazole (Omeprazole 20 Mg Capsule.Dr) 20 mg PO DAILY@0630 [facility] Last Admin: 11/19/24 05:49 Dose: 20 mg Documented By: YENNY Ondansetron HCl (Ondansetron Hcl 4 Mg/2 Ml Vial) 4 mg IVPUSH Q8H PRN PRN Reason: Nausea and Vomiting Prednisone (Prednisone 20 Mg Tablet) 40 mg PO DAILY [facility] Stop: 11/20/24 23:59 Last Admin: 11/19/24 08:19 Dose: 40 mg Documented By: MAYA Senna (Sennosides 8.6 Mg Tablet) 17.2 mg PO BID [facility] Last Admin: 11/19/24 08:19 Dose: 17.2 mg Documented By: MAYA Sodium Chloride (0.9 % Sodium Chloride Flush 3 Ml Syringe) [facility] Last Admin: 11/19/24 08:22 Dose: 3 ml Documented By: MAYA <True Membreno PA-C - Last Filed: 11/19/24 11:59> Labs CBC & Chem 7: 11/14/24 07:26 11/18/24 05:53 <True Membreno PA-C - Last Filed: 11/19/24 11:59> Labs: Laboratory Results - last 24 hr 11/18/24 11/18/24 11/19/24 16:41 20:45 07:31 POC Glucose 287 H 246 H 158 H 11/19/24 11:12 POC Glucose 136 H <True Membreno PA-C - Last Filed: 11/19/24 11:59> Procedures Date of Service Date of Service: 11/19/24 <True Membreno PA-C - Last Filed: 11/19/24 11:59> 11/19/24 <Crescencio Arthur MD - Last Filed: 11/19/24 12:00> Progress Note: A&P Assessment and plan (1) Chronic constipation: Status: Acute <True Membreno PA-C - Last Filed: 11/19/24 11:59> Assessment and Plan: Having bowel movements and flatus Abdomen is soft We will need a good bowel regimen with stool softeners, fiber supplement, MiraLax Awaiting further workup for positive Cologuard test Plan to have CT colonography down the line - we will need to have good bowel prep for this <Crescencio Arthur MD - Last Filed: 11/19/24 12:00> Assessment and Plan: Continues to improve, passing gas and bowel movements. abdomen remains soft, mildly distended. He feels much better today, tolerating diet. Clinically unobstucted. General surgery will sign off at this point. please reconsulted as needed in the future. <True Membreno PA-C - Last Filed: 11/19/24 11:59> Time Spent With Patient Time: Total time managing care of this patient today ____ minutes. <True Membreno PA-C - Last Filed: 11/19/24 11:59> Quality Stroke Does the patient have a stroke diagnosis?: No <True Membreno PA-C - Last Filed: 11/19/24 11:59> VTE Prior VTE?: No <True Membreno PA-C - Last Filed: 11/19/24 11:59> VTE Risk Level:: Medical - moderate - high <True Membreno PA-C - Last Filed: 11/19/24 11:59> VTE Device Contraindication: Treatment Not Indicated <True Membreno PA-C - Last Filed: 11/19/24 11:59> VTE Drug Contraindication: N/A - Med Ordered <True Membreno PA-C - Last Filed: 11/19/24 11:59>
[2024-11-19 16:24] LABS: Glucose, Whole Blood 246 mg/dL (60-115)
--- NOTE | 2024-11-19 16:58 | PC.NURSE ---
pt. alert and oriented, been refusing chair and bed alarm all day. Education provided about hospital environment and safety. Call buck within reach, and pt. encouraged to call for assist.
[2024-11-19 20:32] LABS: Glucose, Whole Blood 239 mg/dL (60-115)
[2024-11-20 03:31] VITALS: BP 109/56; PULSE 92; RESP 20; TEMP 36.9; O2SAT 91
[2024-11-20] MEDS: levalbuterol HCL 2.5 MG, Ipratropium Bromide 0.5 MG INHALE ×2 (06:10→11:20)
[2024-11-20 06:13] VITALS: PULSE 86; RESP 16; O2SAT 94
[2024-11-20 07:38] VITALS: BP 122/55; PULSE 99; RESP 12; TEMP 37.1; O2SAT 94
[2024-11-20 07:47] LABS: Glucose, Whole Blood 208 mg/dL (60-115)
[2024-11-20] MEDS: Calcium + Vitamin D 250 MG TABLET 500 MG PO (07:57)
[2024-11-20] MEDS: 0.9 % Sodium Chloride Flush 3 ML SYRINGE IVFLUSH (08:00)
--- NOTE | 2024-11-20 09:23 | PM.DS ---
DS: Providers Provider Date of Service: 11/20/24 Date of admission: 11/11/24 16:40 Date of discharge: 11/20/24 Primary care physician: Anne-Marie Muro MD Consults: 11/16/24 13:57 Consult to Gastroenterology Routine Consulting [place] [facility] Reason for consultation: severe constipation 11/16/24 15:44 Consult to General Surgery Routine Consulting Provider[place] [facility] Reason for consultation: ?ostomy, chronic constipation and possible angle at sigmoid DS: Diagnosis Discharge Diagnosis (1) Chronic constipation: Status: Acute DS: Summary Hospital Course Hospital Course: History and physical as per admitting provider. 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 He was hospitalized from 09/24/24-09/30/24 for acute hypoxic respiratory failure secondary to acute COPD exacerbation with sepsis and bronchitis. He endorses a 7-8 pound weight increase in the last month. He has a cough that produces mucus every so often but denies any blood in the mucus. He denies fever, chills, chest pain, nausea, vomiting, diarrhea, changes to urination. He has not traveled recently and has had no sick contacts. Chest x-ray failed to demonstrate an infiltrate. Abdominal pelvis CTA demonstrates a large stool burden .COPD exacerbation -ceftriaxone/azithromycin (5)... competed course -methylprednisolone 60 mg IV q.6 hours..... Switched to oral prednisone and completed course -DuoNebs q.4 hours while awake -titrate O2 to maintain sats greater than or equal to 92% 2. Diabetes type 2 -sugars rising and response to steroids -continue outpatient therapies -lispro correctional scale -adjust as indicated 3. CAD -stable and well compensated intermittent large bowel obstruction ct with barium enema contrast could not rule out right sided lesion, should follow up with gi as outpatient Time Attestation Discharge Coordination Time (in mins): 34 Quality: Safe Use of Opioids Does Pt have an Active Cancer Diagnosis on the Problem List?: No Quality: Stroke Does the patient have a stroke diagnosis?: No Physical Exam Vital Signs: Vital Signs: Last Vital Signs Temp 98.7 F 11/20/24 07:38 Pulse 99 11/20/24 07:38 Resp 12 11/20/24 07:38 BP 122/55 L 11/20/24 07:38 Pulse Ox 94 11/20/24 07:38 O2 Del Method Nasal Cannula 11/20/24 07:38 O2 Flow Rate 3 11/20/24 07:38 Oxygen Flow Rate 3 11/11/24 12:46 BMI result Body Mass Index 33.6 Const: General: comfortable and no acute distress Orientation/consciousness: patient oriented x3 Resp: Effort & Inspection: normal respiratory effort and able to speak in complete sentences GI: Inspection: Yes distended (mild) Palpation (GI): Soft to palpation, nontender, no guarding and not rigid Neuro: General: patient oriented x3 DS: Data Data Completed and Pending Completed studies during hospitalization [Text1]: Procedures Assistance with Respiratory Ventilation, Less than 24 Consecutive Hours, Continuous Positive Airway Pressure (06/16/24) Excision of Rectum, Via Natural or Artificial Opening Endoscopic, Diagnostic (05/26/24) Excision of Sigmoid Colon, Via Natural or Artificial Opening Endoscopic, Diagnostic (05/26/24) Excision of Transverse Colon, Via Natural or Artificial Opening Endoscopic, Diagnostic (05/26/24) Irrigation of Lower GI using Irrigating Substance, Via Natural or Artificial Opening (07/29/22) Labs on day of discharge: Laboratory Results - last 24 hr 11/19/24 11/19/24 11/19/24 11:12 16:09 20:29 POC Glucose 136 H 246 H 239 H 11/20/24 07:41 POC Glucose 208 H Discharge Plan Discharge Anticipated Discharge Date/Time: 11/16/24 11:10 Patient Disposition: Home, Self-Care Discharge Diagnosis: Acute COPD exacerbation Referrals: Anne-Marie Muro MD [Primary Care Provider, Internal Medicine] - 1 Week Discharge Medications: Continued (DME) blood-glucose meter [FreeStyle Lite Meter] Kit See Rx Instructions .Route Qty: 1 0RF Rx Instructions: As directed (DME) lancets [FreeStyle Lancets] 28 gauge misc See Rx Instructions .Route Qty: 100 1RF Rx Instructions: Test blood sugar twice (DME) FreeStyle Lite Strips Strip See Rx Instructions .Route Qty: 50 7RF Rx Instructions: check fasting glucose once a day AC metoprolol tartrate 25 mg tablet 25 mg PO BID Qty: 180 1RF metformin 1,000 mg tablet 1,000 mg PO BID Qty: 180 1RF atorvastatin 80 mg tablet 80 mg PO BEDTIME Qty: 90 1RF omeprazole 20 mg capsule,delayed release(DR/EC) 20 mg PO DAILY@0630 Qty: 30 1RF glipizide 5 mg tablet 5 mg PO BID Qty: 270 4RF ipratropium-albuterol 0.5 mg-3 mg(2.5 mg base)/3 mL solution for nebulization 3 ml inhalation Q6H PRN (Reason: wheezing) Qty: 180 2RF escitalopram oxalate 20 mg tablet 20 mg PO DAILY Qty: 90 3RF budesonide-formoterol [Symbicort] 160-4.5 mcg/actuation Hfa Aerosol Inhaler 2 puff INHALATION DAILY calcium carbonate-vitamin D3 600 mg-10 mcg (400 unit) tablet 1 tab PO DAILY bisacodyl [Laxative (bisacodyl)] 5 mg tablet,delayed release (DR/EC) 10 mg PO DAILY PRN (Reason: constipation) albuterol sulfate [Ventolin HFA] 90 mcg/actuation HFA aerosol inhaler 2 puff inhalation Q4H PRN (Reason: shortness of breath or wheezing) sennosides [senna] 8.6 mg tablet 17.2 mg PO BID sennosides [senna] 8.6 mg tablet 17.2 mg PO BID aspirin 81 mg Tablet 81 mg PO DAILY azithromycin 500 mg tablet 500 mg PO MOWEFR lorazepam [Ativan] 1 mg tablet 0.5 mg PO BID PRN (Reason: anxiety) Rx Instructions: Patient may request partial fill lactulose 10 gram/15 mL solution 10 g PO BID PRN (Reason: Constipation) (DME) Oxygen Home Use Kit See Rx Instructions .Route Rx Instructions: As directed polyethylene glycol 3350 [Miralax] 17 gram/dose powder 17 g PO DAILY 1 Days Qty: 238 0RF Rx Instructions: Mix Miralax with 64 oz(8 cups) of Crystal light. Take 2 tablets of Dulcolax qt 12 pm. Wait to have your 1st bowel movement, then begin drinking Miralax. Drink a glass of Miralax every 10-15 minutes until you are finished. You will drink at least another 4 cups of clear liquid of your choice over the next 2 hours. Please drink as many clear liquids as possible Discharge Orders: Discharge Order (Routine); Ordered 11/20/24 Ordered By: Jose Aparicio Diet: Advance to usual diet Activity on Discharge: As tolerated Stand Alone Forms: Patient Portal Discharge page Print Language: Citizen Of [place] Care Plan Goals: recovery Health Concerns: Acute COPD exacerbation Plan of Treatment: Follow up with primary care provider as needed Take all medications as prescribed Assessment: See discharge summary
--- NOTE | 2024-11-20 10:48 | MHC.CM.PN ---
PT CLEARED TO DC HOME TODAY WITH NO SERVICES VIA FAMILY TRANSPORT
[2024-11-20 11:22] VITALS: PULSE 86; RESP 18; O2SAT 89
[2024-11-20 11:22] LABS: Glucose, Whole Blood 227 mg/dL (60-115)
== END 2024-11-20 12:05 | disposition home or self-care (01) | DRG 191 ==
LOC: HO.ED 16:37 → HO.EDOVER 17:00 → HO.S3 11-12 16:02
PROVIDERS: Nurse Practitioner Acute Care; Physician Assistant Medical; Admitting Provider Hospitalist; Emergency Provider Emergency Medicine; PCP Internal Medicine; Visit Provider Internal Medicine
DX: J44.1 Chronic obstructive pulmonary disease with (acute) exacerbation (principal); J96.11 Chronic respiratory failure with hypoxia; K74.60 Unspecified cirrhosis of liver; I25.10 Atherosclerotic heart disease of native coronary artery without angina pectoris; K57.30 Diverticulosis of large intestine without perforation or abscess without bleeding; Z95.5 Presence of coronary angioplasty implant and graft; R19.5 Other fecal abnormalities; E11.9 Type 2 diabetes mellitus without complications; Z20.822 Contact with and (suspected) exposure to COVID-19; K59.09 Other constipation; Z87.891 Personal history of nicotine dependence; Z85.118 Personal history of other malignant neoplasm of bronchus and lung; Z99.81 Dependence on supplemental oxygen; Z92.3 Personal history of irradiation; Z92.21 Personal history of antineoplastic chemotherapy; Z79.82 Long term (current) use of aspirin; Z79.84 Long term (current) use of oral hypoglycemic drugs; Z79.899 Other long term (current) drug therapy
CPT/HCPCS: 36415; 71045; 74176; 74177; 80048; 80053; 80076; 82140; 82803; 82947; 83735; 84484; 85025; 85610; 87637; 93005; 99285; J2919; J3475; Q9967

== ENCOUNTER → 2024-11-11 12:51 | Outpatient (BNV) | payer MEDICARE, SELFPAY | PROVIDERS: PCP Internal Medicine; Visit Provider Radiology Diagnostic Radiology | DX: K59.00 Constipation, unspecified (principal); R06.02 Shortness of breath | CPT/HCPCS: 71045; 74177 ==

== ENCOUNTER → 2024-11-11 12:51 | Outpatient (BNV) | payer MEDICARE, SELFPAY | PROVIDERS: Admitting Provider Hospitalist; Emergency Provider Emergency Medicine; PCP Internal Medicine; Visit Provider Internal Medicine | DX: R06.00 Dyspnea, unspecified (principal) | CPT/HCPCS: 93010 ==

== ENCOUNTER 2024-11-11 16:40 | Outpatient (BNV) | payer MEDICARE, SELFPAY | END 2024-11-19 12:48 | PROVIDERS: Admitting Provider Hospitalist; Emergency Provider Emergency Medicine; PCP Internal Medicine; Visit Provider Radiology Diagnostic Radiology | DX: K59.00 Constipation, unspecified (principal) | CPT/HCPCS: 74176 ==

== ENCOUNTER → 2024-11-11 16:40 | Outpatient (BNV) | payer MEDICARE, SELFPAY | PROVIDERS: Admitting Provider Hospitalist; Emergency Provider Emergency Medicine; PCP Internal Medicine; Visit Provider Physician Assistant Surgical | DX: K59.00 Constipation, unspecified (principal) | CPT/HCPCS: 99222; 99499 ==

== ENCOUNTER → 2024-11-11 16:40 | Outpatient (BNV) | payer MEDICARE, SELFPAY | PROVIDERS: Admitting Provider Hospitalist; Emergency Provider Emergency Medicine; PCP Internal Medicine; Visit Provider Internal Medicine | DX: K59.09 Other constipation (principal); Z86.0101 Personal history of adenomatous and serrated colon polyps; R19.5 Other fecal abnormalities; J44.9 Chronic obstructive pulmonary disease, unspecified; I25.10 Atherosclerotic heart disease of native coronary artery without angina pectoris | CPT/HCPCS: 99232 ==

== ENCOUNTER → 2024-11-11 16:40 | Outpatient (BNV) | payer MEDICARE, SELFPAY | PROVIDERS: Admitting Provider Hospitalist; Emergency Provider Emergency Medicine; PCP Internal Medicine; Visit Provider Hospitalist | DX: J44.1 Chronic obstructive pulmonary disease with (acute) exacerbation (principal) | CPT/HCPCS: 99223; 99232 ==

== ENCOUNTER 2024-11-30 00:29 | Inpatient (IN) | payer MEDICARE, SELFPAY ==
[2024-11-30] VITALS (30 sets, daily range): BP systolic 98–141; BP diastolic 51–70; PULSE 69–110; RESP 12–22; TEMP 36.1–37.2; O2SAT 91–98; BMI 32.3
--- NOTE | 2024-11-30 | ECG_ITS ---
Test Reason : NAYSEA VOMITTING Blood Pressure : */* mmHG Vent. Rate : 108 BPM Atrial Rate : 108 BPM P-R Int : 168 ms QRS Dur : 90 ms QT Int : 340 ms P-R-T Axes : 26 91 80 degrees QTcB Int : 455 ms Sinus tachycardia Rightward axis Nonspecific ST abnormality Abnormal ECG When compared with ECG of 11-Nov-2024 13:26, Vent. rate has increased by 39 bpm Referred By: Generic ED Physician Electronically Signed By: YOCASTA GIL
--- NOTE | ~2024-11-30 | CT_ITS ---
CLINICAL HISTORY: encephalopathy CT head without contrast Comparison: 02/18/2023 Findings: No new intra-axial mass, midline shift, hydrocephalus, or acute hemorrhage. No significant atrophy-like change or white matter disease. There is no sinus or mastoid fluid. The orbits are unremarkable. No skull fracture. IMPRESSION: 1. No acute intracranial findings. This document has been electronically signed by: Regan Goodman MD on 11/30/2024 07:02:08
--- NOTE | ~2024-11-30 | XR_ITS ---
CLINICAL HISTORY: dyspnea 1 view chest x-ray Comparison: 09/24/2024 Findings: Portions of the exam are obscured by overlying material. No new consolidation or effusion. Left apical pleural thickening is unchanged. Heart size is normal. No acute fracture. IMPRESSION: 1. No acute findings. This document has been electronically signed by: Regan Goodman MD on 11/30/2024 05:07:21
[2024-11-30 00:53] LABS: MANUAL DIFF FLAG NO
[2024-11-30 00:59] LABS: Hematocrit 34.0 % (42.0-52.0); Hemoglobin 10.1 g/dl (14.0-18.0); Imm Gran Abs Auto 0.09 X10*3/uL (0.00-0.03); Imm Gran Pct Auto 1.3 % (0.0-0.4); Lymphocytes Absolute Auto 0.8 X10*3/uL (1.2-4.9); Mean Corpuscular HGB Conc 29.7 g/dl (31.0-36.0); Mean Corpuscular Hemoglobin 27.5 pg (27.0-33.0); Mean Corpuscular Volume 92.6 fL (80.0-98.0); NRBC Abs Auto 0.000 X10*3/uL (0.0-0.012); NRBC Pct Auto 0.0 /100WBC (0.0-0.2); Platelet Count 216 X10*3/uL (160-400); Red Blood Count 3.67 X10*6/uL (4.60-5.80); White Blood Count 6.8 X10*3/uL (4.8-10.8)
[2024-11-30 01:00] LABS: Venous Blood Gas Refer to POC result
[2024-11-30 01:02] LABS: VBG HCO3 49 mmol/L (22-26); VBG O2 % Saturation 97.0 %
[2024-11-30 01:09] LABS: Alanine Aminotransferase 12 U/L (0-40); Albumin Level 3.8 g/dL (3.5-5.0); Alkaline Phosphatase 98 U/L (39-117); Anion Gap 15 (12-20); Aspartate Amino Transferase 21 U/L (5-37); Blood Urea Nitrogen 9 mg/dL (9-16); Calcium 9.1 mg/dL (8.4-10.2); Carbon Dioxide 39 mmol/L (22-29); Chloride 91 mmol/L (96-108); Creatinine Clr Calc Pharmacy 71.9; Estimated Glomerular Filt Rate > 60; Potassium 4.3 mmol/L (3.3-5.1); Sodium 141 mmol/L (135-145); Total Protein 6.7 g/dL (6.5-8.0)
[2024-11-30 01:14] LABS: Troponin-I High Sensitivity 6.7 ng/L (<3.5-35.0)
--- NOTE | 2024-11-30 01:30 | PC.NURSE ---
pt states he is lightheaded but wants to sit on edge of bed. RN informed pt for safety reason he needs to have both legs on bed to avoid a fall and potential head strike. Pt refuses. RN to make career guidance technician and MD aware.
[2024-11-30 01:36] LABS: Resp Syncy Virus RNA Qual PCR NEGATIVE (Negative); SARS COV2 PCR INHOUSE NEGATIVE (Negative)
--- NOTE | 2024-11-30 01:38 | PC.NURSE ---
table placed in front of pt so he can sit up straight and have some protection in front of him to avoid falling.
--- OUTSIDE RECORDS SUMMARY | 2024-11-30 02:23 | XMS_ITS | Encounter Summary ---
Author Organization [facility] Address [address] [place] [id number] Care Team Providers Care Rug Inspector Name Role Phone Anne-Marie Muro MD Primary Care Provider [phone] Reason for Visit * Reason Onset Date Comments durable medical equipment 11/23/2024 Encounter Details Date Type Department Care Team ([facility] Contact Info) Description 11/23/2024 Telephone [facility] [address] [facility] [address] [place] [phone] Linnette Marr MD 175 [facility] [address] [place] [address] durable medical equipment Social History Tobacco Use Types Packs/Day Years [...] on file Sexual Orientation Not on file documented as of this encounter Progress Notes * Magaly Estrada MA - 11/27/2024 10:19 AM EDT 3rd dewayne henriquez signed and faxed back to [facility]. Fax confirmation was received * Leslie Hyatt - 11/24/2024 1:38 PM EDT Paperwork has been faxed back to [facility], confirmation is received. * Nereida Turner MA - 11/24/2024 8:33 AM EDT Order printed * Rocael Garibay - 11/23/2024 4:48 PM EDT Second oxygen therapy swo received via fax from [facility]. Forms attached to encounter. documented in this encounter Plan of Treatment Upcoming Encounters Date Type Department Care Team (Late st Contact Info) Description 01/06/2025 1:15 PM EDT Office Visit Pulmonolgy - [address] [phone] Linnette Marr MD [address] [id number] documented as of this encounter Visit Diagnoses Not on filedocumented in this encounter Care Teams Rug Inspector Relationship Specialty Start Date End Date Anne-Marie Muro MD [address] [place] [address] PCP - General Internal Medicine 04/08/11 documented as of this encounter
[2024-11-30] MEDS: Albuterol Sulfate 2.5 MG, Albuterol/Iprat 2.5/0.5MG 3 ML 3 ML INHALE (02:59)
--- NOTE | 2024-11-30 03:00 | ED.SOB ---
HPI - SOB/Dyspnea General Chief Complaint: Dyspnea Stated Complaint: Cellulitis , SOB , Dizziness and Nausea Time Seen by Provider: 11/30/24 01:43 Source: patient, EMS, RN notes reviewed and old records reviewed Mode of arrival: EMS Limitations: altered mental status History of Present Illness ED Provider: Dr. Nohelia Salazar HPI Narrative: 74-year-old male with a history of lung cancer status post chemo and radiation, oxygen-dependent COPD, CAD, hypertension, GERD, radiation fibrosis presenting with increasing shortness of breath, dizziness ongoing for the last several days. He was hospitalized on 11/11/2024 for respiratory failure requiring steroids. Patient is a very poor historian and unable to answer a lot of questions. He thinks he takes a water pill but he can not tell me which 1. No reported fever. Denies changes in his chronic lower extremity edema or dry cough. Related Data Home Medications ?Medication ?Instructions ?Recorded ?Confirmed budesonide-formoterol HFA 160 2 puff inhalation DAILY 03/14/21 11/24/24 mcg-4.5 mcg/actuation aerosol inhaler (Symbicort) calcium 600 mg (as 1 tab PO DAILY 08/04/21 11/24/24 carbonate)-vitamin D3 10 mcg (400 unit) tablet Oxygen Home Use 06/14/22 11/24/24 bisacodyl 5 mg tablet,delayed 10 mg PO DAILY PRN constipation 06/16/24 11/24/24 release (Laxative (bisacodyl)) albuterol sulfate 90 mcg/actuation 2 puff inhalation Q4H PRN 09/24/24 11/24/24 aerosol inhaler (Ventolin HFA) shortness of breath or wheezing aspirin 81 mg tablet 81 mg PO DAILY 11/11/24 11/24/24 lactulose 10 gram/15 mL oral 10 g PO BID PRN Constipation 11/11/24 11/24/24 solution sennosides 8.6 mg tablet (senna) 17.2 mg PO BID 11/11/24 11/24/24 Previous Rx's ?Medication ?Instructions ?Recorded blood-glucose meter (FreeStyle #1 ea 01/23/22 Lite Meter kit) lancets 28 gauge (FreeStyle #100 ea 01/31/24 Lancets) blood sugar diagnostic (FreeStyle #50 ea 03/07/24 Lite Strips) metoprolol tartrate 25 mg tablet 25 mg PO BID #180 tabs 06/09/24 metformin 1,000 mg tablet 1,000 mg PO BID #180 tabs 06/12/24 atorvastatin 80 mg tablet 80 mg PO BEDTIME #90 tabs 07/13/24 omeprazole 20 mg capsule,delayed 20 mg PO DAILY@0630 #30 caps 08/14/24 release glipizide 5 mg tablet 5 mg PO BID #270 tabs 08/31/24 ipratropium 0.5 mg-albuterol 3 mg 3 ml inhalation Q6H PRN wheezing 09/01/24 (2.5 mg base)/3 mL nebulization #180 mL soln escitalopram oxalate 20 mg tablet 20 mg PO DAILY #90 tabs 10/01/24 polyethylene glycol 3350 17 17 g PO DAILY colon prep 1 day 10/08/24 gram/dose oral powder (Miralax) #238 grams lorazepam 1 mg tablet (Ativan) 0.5 mg (1/2 x 1 mg) PO BID PRN 11/21/24 anxiety #30 tabs azithromycin 500 mg tablet 500 mg PO MOWEFR 30 days #13 tabs 11/24/24 bisacodyl 5 mg tablet,delayed 10 mg (2 x 5 mg) PO ONCE colon 11/24/24 release (Dulcolax (bisacodyl)) prep 2 days #4 tabs peg 3350-electrolytes 236 240 ml PO Q10M 2 days #4,000 mL 11/24/24 gram-22.74 gram-6.74 gram-5.86 gram solution (Golytely) plecanatide 3 mg tablet (Trulance) 3 mg PO DAILY 30 days #30 tabs 11/24/24 Allergies Allergy/AdvReac Type Severity Reaction Status Date / Time fluticasone furoate (From Allergy Intermediate Rash Verified 11/30/24 00:50 Trelegy Ellipta) vilanterol (From Trelegy Allergy Intermediate Rash Verified 11/30/24 00:50 Ellipta) umeclidinium (Incruse Allergy Unknown Hives Verified 11/30/24 00:50 Ellipta) furosemide (From Lasix) AdvReac Intermediate Hallucinati Verified 11/30/24 00:50 ons Review of Systems Review of Systems: Yes Unobtainable due to mental status PMFSH Past Medical History Medical History Positive colorectal cancer screening using Cologuard test HTN (hypertension) History of adenomatous polyp of colon Acute on chronic respiratory failure with hypoxia and hypercapnia Respiratory failure with hypoxia and hypercapnia Bilateral carotid artery disease CAD (coronary artery disease) Anxiety and depression Anemia Chronic respiratory failure with hypoxia and hypercapnia Radiation fibrosis of lung Dyslipidemia History of pneumonia Bacteremia due to Enterococcus COPD, severe Diabetes mellitus with hyperglycemia, without long-term current use of insulin Urinary incontinence Asthma Lung cancer Skin cancer Surgical History Hx of heart artery stent History of esophagogastroduodenoscopy (EGD) Hx of colonoscopy Family History Family History Father Medical history non-contributory Mother Medical history non-contributory Unknown family medical history Lung collapse Brother No problems noted. Brother No problems noted. Son Substance use disorder Son No problems noted. Daughter No problems noted. Sister No problems noted. Sister No problems noted. Sister No problems noted. Sister No problems noted. Other HTN (hypertension) Social History Social History Household Members: Spouse Household Members Other:: grandson Housing: House Are you a primary client care representative to a significant other at home: No Do you presently have visiting nurse or other home services: No Alcohol intake: never Comment: refusing all fall risk interventions Patient Tobacco Use Status: Former Tobacco user Tobacco use type: Cigarette Smoked in Last 30 Days: No e-Cigarette/Vaping Use: Never Used Use of substances other than those prescribed or required for medical reasons: No Advance Directives: Yes Advance Directives on File: Yes Advance Directives Date on File: 06/08/22 Do you have a plan to hurt others: No Plan service: No Current occupational status: retired Cognitive needs: No Hearing needs: No Vision needs: No Physical Exam Exam: Exam: GENERAL: Chronically ill-appearing, moderate respiratory distress. SKIN: Normal skin color for ethnicity, warm, dry, no rashes noted. HEENT: Normocephalic, atraumatic, no stridor, EOMI. NECK: Soft, supple, full ROM, midline structures nontender, no step-offs, no deformities, no lymphadenopathy. CHEST: Heart regular tachycardia, symmetric chest rise and fall. PULMONARY: Coarse lung sounds bilaterally, diminished at the bases, moderate respiratory distress with poor air movement, no wheezes. ABDOMINAL: Soft, protuberant nontender, quiet bowel sounds in all quadrants. : Deferred. MUSCULOSKELETAL: Normal tone, full range of motion, no deformities, 2+ peripheral edema bilaterally. NEURO: Alert and oriented to person, CN II through XII intact, no focal neurologic deficits. PSYCHIATRIC: Anxious affect, appropriate demeanor. Vital Signs: Vital Signs: Last Vital Signs Temp 97.9 F 11/30/24 03:56 Pulse 82 11/30/24 03:56 Resp 18 11/30/24 03:56 BP 113/57 L 11/30/24 03:56 Pulse Ox 93 11/30/24 03:56 O2 Del Method BiPAP 11/30/24 03:56 O2 Flow Rate 3 11/30/24 02:49 Oxygen Flow Rate 4 11/30/24 00:40 BMI result Body Mass Index 32.3 Medications Administered Discontinued Medications Generic Name Dose Route Start Last Admin Trade Name Freq PRN Reason Stop Dose Admin Albuterol Sulfate 2.5 mg/ 0 mg 11/30/24 02:57 11/30/24 02:59 Albuterol/Ipratropium 3 ml INHALE 11/30/24 02:58 1 dose ONCE ONE Administration Meclizine HCl 50 mg 11/30/24 02:54 11/30/24 02:59 Meclizine Hcl 25 Mg Tablet PO 11/30/24 02:55 50 mg ONCE ONE Administration Medical Decision Making Medical Decision Making [facility] Narrative: Patient presents today with chief complaint of shortness of breath. Differential diagnosis includes, but is not limited to, upper respiratory infection, pneumonia, COPD exacerbation, asthma exacerbation, CHF, pneumothorax, pleural effusion, pulmonary embolism, ACS. Broad-based work-up will be initiated to evaluate for etiology of patient's symptoms. Patient noted to be hypercapnic with a pH of 7.32. PCO2 is 94 on the VBG. We will initiate breathing treatment, BiPAP to see if he responds to this. Anticipate admission for acute on chronic hypercarbic respiratory failure. He has no focal neurologic deficits on my exam though he is somewhat confused. Understandable with a pCO2 of 94. I can not see any records that describe a history of CHF but he does have an allergy to lasix, so perhaps there is a CHF component. Case discussed with blue prints trimmer who will admit patient to ICU for further care and evaluation, continued BiPAP. Differential Diagnosis Differential Diagnoses: The differential diagnosis associated with the presentation includes (as above) Admission/Observation Consideration of admission/observation: Escalation of care including admission/observation considered Consult Healthcare Provider Management of the patient was discussed with: Hospitalist and Meat Apprentice (Speech Clinician) Lab Data MDM Lab Attestation statement: I reviewed the patient's lab results. 11/30/24 00:48 11/30/24 00:48 Labs: Lab Results 11/30/24 11/30/24 Range/Units 00:48 00:52 WBC 6.8 (4.8-10.8) X10*3/uL RBC 3.67 L (4.60-5.80) X10*6/uL Hgb 10.1 L (14.0-18.0) g/dl Hct 34.0 L (42.0-52.0) % MCV 92.6 (80.0-98.0) fL MCH 27.5 (27.0-33.0) pg MCHC 29.7 L (31.0-36.0) g/dl RDW 14.1 (11.0-16.0) % Plt Count 216 (160-400) X10*3/uL MPV 9.6 (9.4-12.4) fL Immature Gran % (Auto) 1.3 H (0.0-0.4) % Neut % (Auto) 77.8 H (45-73) % Lymph % (Auto) 11.3 L (20-40) % [place] % (Auto) 8.2 (2-11) % Eos % (Auto) 1.0 (0-4) % Baso % (Auto) 0.4 (0-2) % Lymph # (Auto) 0.8 L (1.2-4.9) X10*3/uL [place] # (Auto) 0.6 (0.1-1.2) X10*3/uL Eos # (Auto) 0.1 (0.0-0.4) X10*3/uL Baso # (Auto) 0.0 (0.0-0.2) X10*3/uL Abs Immat Gran (auto) 0.09 H (0.00-0.03) X10*3/uL Absolute Neuts (auto) 5.3 (2.0-8.3) x10*3/uL Absolute Nucleated RBC 0.000 (0.0-0.012) X10*3/uL Nucleated RBC % (auto) 0.0 (0.0-0.2) /100WBC VBG pH 7.32 (7.32-7.43) VBG pCO2 94 mmHg VBG pO2 81 mmHg VBG HCO3 49 H (22-26) mmol/L VBG O2 Saturation 97.0 % VBG Base Excess 18.2 mmol/L Sodium 141 (135-145) mmol/L Potassium 4.3 (3.3-5.1) mmol/L Chloride 91 L (96-108) mmol/L Carbon Dioxide 39 H (22-29) mmol/L Anion Gap 15 (12-20) BUN 9 (9-16) mg/dL Creatinine 0.95 (0.5-1.4) mg/dL Estim Creat Clear Calc 71.9 Estimated GFR > 60 Random Glucose 266 H (60-115) mg/dL Calcium 9.1 D (8.4-10.2) mg/dL Total Bilirubin 0.2 (0.0-1.0) mg/dL AST 21 (5-37) U/L ALT 12 (0-40) U/L Alkaline Phosphatase 98 (39-117) U/L Troponin I High Sens 6.7 D (<3.5-35.0) ng/L Total Protein 6.7 (6.5-8.0) g/dL Albumin 3.8 (3.5-5.0) g/dL Influenza Type A (PCR) NEGATIVE (Negative) Influenza Type B (PCR) NEGATIVE (Negative) RSV RNA Qual (PCR) NEGATIVE (Negative) SARS-CoV-2 RNA (RT-PCR) NEGATIVE (Negative) Independent Interpretation I performed an independent interpretation of an: EKG and Plain X-Ray Radiology Impression Discussion of test interpretation with radiology: I have reviewed the radiologist's reading. Independent Historian Clinical information obtained from an independent historian. History obtained from or confirmed by: EMS External Record Review External record reviewed: Inpatient record Chronic Conditions Patient?s care impacted by: Cancer and Other (COPD, CAD) Critical Care Time Critical Care Time Critical Care Time: Yes Total Critical Care Time: 40 Attestation: CRITICAL CARE TIME: 40 minutes of critical care time was spent in direct patient care at the bedside or in the immediate area with this patient. Critical care was necessary to treat or prevent imminent or life-threatening deterioration of the following conditions acute hypoxic respiratory failure with hypercapnia due to CHF exacerbation. This patient is high risk for decompensation and/or . This time was spent assessing and managing the patient, interpreting labs and imaging, coordinating care with other medical providers, gathering history from either the patient, their representatives, EMS or chart review, and discussing management with ICU admitting team. Discharge Plan Discharge Clinical Impression: Acute on chronic respiratory failure with hypoxia and hypercapnia, Acute exacerbation of chronic obstructive airways disease, Acute encephalopathy Patient Disposition: Admitted As Inpatient Print Language: Sami
--- NOTE | 2024-11-30 04:12 | PC.NURSE ---
RN called RT as pt is stating 85 on bipap. RT to assess pt.
--- NOTE | 2024-11-30 04:24 | PC.NURSE ---
pts bipap setting per RT were changed to 45 , pt now stating in the upper 90s range.
--- NOTE | 2024-11-30 05:02 | P.HPCC_ITS ---
History of Present Illness Date of Service: 11/30/24 Attending physician on admission: Nic Sanchez Chief Complaint: Acute hypoxic respiratory failure, metabolic encephalopathy 74-year-old well-known patient to our service who has recently admitted and discharged from this hospital on 11/11/2024 due to respiratory failure and COPD exacerbation requiring steroid treatment. 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 The patient had presented to the emergency room with complaints of shortness of breath, dizziness and nausea otherwise his story was vague. ?The workup reveals a hemodynamically stable patient with a white count 6.8, H and H of 10.1 and 34.0 respectively, platelets 216 no bandemia.? VBG pH 7.3, pCO2 94, PO2 81, HC03 49, O2 sat 97%.? Sodium 141 potassium 4.3 chloride 91 carbon dioxide 39 anion gap 15 BUN 9, creatinine 0.95 random glucose 266 calcium 9.1, troponin 6.7, respiratory panel negative.? Chest x-ray unremarkable without evidence of pulmonary disease. ?EKG reviewed by me shows sinus tachycardia ventricular rate 108 beats per minute.? There is no ST elevations, no ST depressions.? Q[facility] 340 EMS.? No comparison available. Normally the patient does not require rescue BiPAP, he is wheezing on exam, hypercarbic and unlike other times the patient is now confused which I believe is due to hypercapnia.? We will order a head CT to rule out intracranial pathology and transferred to the ICU for further BiPAP and treatment of his COPD exacerbation. Review of Systems 2 Review of Systems: Yes Unobtainable due to mental status PMFSH Past Medical History Medical History Positive colorectal cancer screening using Cologuard test HTN (hypertension) History of adenomatous polyp of colon Acute on chronic respiratory failure with hypoxia and hypercapnia Respiratory failure with hypoxia and hypercapnia Bilateral carotid artery disease CAD (coronary artery disease) Anxiety and depression Anemia Chronic respiratory failure with hypoxia and hypercapnia Radiation fibrosis of lung Dyslipidemia History of pneumonia Bacteremia due to Enterococcus COPD, severe Diabetes mellitus with hyperglycemia, without long-term current use of insulin Urinary incontinence Asthma Lung cancer Skin cancer Family History Family History Father Medical history non-contributory Mother Medical history non-contributory Unknown family medical history Lung collapse Brother No problems noted. Brother No problems noted. Son Substance use disorder Son No problems noted. Daughter No problems noted. Sister No problems noted. Sister No problems noted. Sister No problems noted. Sister No problems noted. Other HTN (hypertension) Surgical History Surgical History Hx of heart artery stent History of esophagogastroduodenoscopy (EGD) Hx of colonoscopy Social History Social History Household Members: Spouse Household Members Other:: grandson Housing: House Are you a primary human services care specialist to a significant other at home: No Do you presently have visiting nurse or other home services: No Alcohol intake: never Comment: refusing all fall risk interventions Patient Tobacco Use Status: Former Tobacco user Tobacco use type: Cigarette Smoked in Last 30 Days: No e-Cigarette/Vaping Use: Never Used Use of substances other than those prescribed or required for medical reasons: No Advance Directives: Yes Advance Directives on File: Yes Advance Directives Date on File: 06/08/22 Do you have a plan to hurt others: No Plan service: No Current occupational status: retired Cognitive needs: No Hearing needs: No Vision needs: No Meds Allergies Allergy/AdvReac Type Severity Reaction Status Date / Time fluticasone furoate (From Allergy Intermediate Rash Verified 11/30/24 00:50 Trelegy Ellipta) vilanterol (From Trelegy Allergy Intermediate Rash Verified 11/30/24 00:50 Ellipta) umeclidinium (Incruse Allergy Unknown Hives Verified 11/30/24 00:50 Ellipta) furosemide (From Lasix) AdvReac Intermediate Hallucinati Verified 11/30/24 00:50 ons Active Medications: Current Medications Albuterol Sulfate (Albuterol Sulfate (0.083%) 2.5 Mg/3 Ml Vial.Neb) 2.5 mg INHALE Q3H PRN PRN Reason: wheezing Albuterol/Ipratropium (Albuterol/Iprat 2.5/0.5mg 3 Ml Ampul.Neb) 3 ml INHALE Q6H [facility] Doxycycline Hyclate 100 mg/ (Sodium Chloride) 250 mls @ 166.67 mls/hr IV ONCE ONE Stop: 11/30/24 06:22 Azithromycin 500 mg/ Sodium (Chloride) 250 mls @ 125 mls/hr IV DAILY ONE Stop: 11/30/24 06:56 Methylprednisolone Sodium Succinate (Methylprednisolone Sod Succ 125 Mg/2 Ml Vial) 60 mg IVPUSH Q6H [facility] Home Medications ?Medication ?Instructions ?Recorded ?Confirmed ?Last Taken ?Type budesonide-formoterol HFA 160 2 puff inhalation DAILY 03/14/21 11/24/24 11/11/24 History mcg-4.5 mcg/actuation aerosol inhaler (Symbicort) calcium 600 mg (as 1 tab PO DAILY 08/04/2111/0611/11/24 History carbonate)-vitamin D3 10 mcg (400 unit) tablet Oxygen Home Use 06/14/22 11/24/24 Unknown H istory bisacodyl 5 mg tablet,delayed 10 mg PO DAILY PRN const ipation 06/16/24 11/24/24 09/23/24 21:00 History release (Laxative (bisacodyl)) albuterol sulfate 90 mcg/actuation 2 puff inhalation Q 4H PRN 09/24/24 11/24/24 09/23/24 21:00 History aerosol inhaler (Ventolin HFA) shortness of breath or wheezing aspirin 81 mg tablet 81 mg PO DAILY 11/11/2411/0611/11/24 History lactulose 10 gram/15 mL oral 10 g PO BID PRN Constipat ion 11/11/24 11/24/24 Unknown History solution sennosides 8.6 mg tablet (senna) 17.2 mg PO BID 11/24/24 11/11/24 History Physical Exam 2 Vital Signs: Vital Signs: Last Vital Signs Temp 97.9 F 11/30/24 03:56 Pulse 82 11/30/24 03:56 Resp 18 11/30/24 03:56 BP 113/57 L 11/30/24 03:56 Pulse Ox 93 11/30/24 03:56 O2 Del Method BiPAP 11/30/24 03:56 O2 Flow Rate 3 11/30/24 02:49 Oxygen Flow Rate 4 11/30/24 00:40 BMI result Body Mass Index 32.3 General:? Alert oriented to person only, no acute distress. No accessory muscle usage.? Following all commands.? However he does not appear to be mentating well, he is not able to respond appropriately to my questions, appears confused.? Knowing his baseline he certainly altered. Skin:? Obese, Intact, no lesions, edema as described below, no erythema, clubbing or cyanosis.? No ulcers. HEENT:? Head is normocephalic, atraumatic, pupils equal. Buccal mucosa is dry.? No cervical lymphadenopathy, bruits or masses. Cardiac:? Clear S1-S2, no murmurs rubs; 4/6 left lower border murmur radiating to the carotid. Pulmonary:? Diminished lung sounds bilaterally fine expiratory wheezing bilaterally .? No crackles, rales or rhonchi. Abdomen:? Protuberant, positive bowel sounds in all 4 quadrants.? Soft, nontender, no rebound or guarding.? Musculoskeletal:? Moving all 4 extremities upon request a major joints, there is no crepitus or tenderness.? The strength is 5/5 bilaterally and throughout all 4 extremities.? There is 1+ pitting edema bilateral lower extremities up to mid tibia, symmetric, no calf tenderness , no leg asymmetry.? Gait not assessed at this point. Neurologic:? As above.? Otherwise no other focal deficits noted. Vascular:? 2+ pulses upper and lower extremities distally.? Less than 2nd capillary refill of fingers and toes bilaterally upper and lower extremities Results Labs 11/30/24 00:48 11/30/24 00:48 Labs: Laboratory Results - last 24 hr 11/30/24 11/30/24 00:48 00:52 MCV 92.6 MCH 27.5 MCHC 29.7 L RDW 14.1 Plt Count 216 MPV 9.6 Immature Gran % (Auto) 1.3 H Neut % (Auto) 77.8 H Lymph % (Auto) 11.3 L [place] % (Auto) 8.2 Eos % (Auto) 1.0 Baso % (Auto) 0.4 Lymph # (Auto) 0.8 L [place] # (Auto) 0.6 Eos # (Auto) 0.1 Baso # (Auto) 0.0 Abs Immat Gran (auto) 0.09 H Absolute Neuts (auto) 5.3 Absolute Nucleated RBC 0.000 Nucleated RBC % (auto) 0.0 VBG pH 7.32 VBG pCO2 94 VBG pO2 81 VBG HCO3 49 H VBG O2 Saturation 97.0 VBG Base Excess 18.2 Anion Gap 15 Estim Creat Clear Calc 71.9 Estimated GFR > 60 Random Glucose 266 H Calcium 9.1 D Total Bilirubin 0.2 AST 21 ALT 12 Alkaline Phosphatase 98 Total Protein 6.7 Albumin 3.8 Influenza Type A (PCR) NEGATIVE Influenza Type B (PCR) NEGATIVE RSV RNA Qual (PCR) NEGATIVE SARS-CoV-2 RNA (RT-PCR) NEGATIVE Assessment and Plan (1) Acute hypercapnic respiratory failure: Status: Acute Plan ASSESSMENT : 1. Acute hypercapnic respiratory failure 2. Acute respiratory acidosis 3. Acute metabolic encephalopathy likely secondary to hypercapnia 4. Acute COPD exacerbation 5. Diabetes type 2 6. Symmetric bilateral lower extremity edema 1+ without evidence of CHF 7. Normocytic anemia of chronic disease PLAN OF CARE: Admit to the ICU, I's and O's, keep NPO, BiPAP, we will obtain an ABG as I am concerned that his numbers are worse than what the venous gas shows; head CT pending, we will add ammonia, TSH, given history of COPD we will start him on Zithromax, Solu-Medrol, DuoNebs scheduled and albuterol PRN.? I do not think the patient needs diuresis at this point.? Insulin sliding scale. When pt is off Bipap will resume his home medications particularly aspirin and statin. We will hold metformin. Hold beta-arnold. GI PROPHYLAXIS:? IV famotidine DVT PROPHYLAXIS:? Lovenox subQ This patient counter and care had a high probability of a clinically significant, sudden, or life threatening deterioration of this patient's condition which required my full and direct attention, intervention and personal management. Critical care time used for critical evaluation of this patient, diagnosis, treatment and coordination of care, review her records and documentation TOTAL CRITICAL CARE TIME 75 MIN . discussion and coordination with consultants, completely separate from any procedures performed. Patient's care was discussed in detail with Dr. Sanchez who is aware of all the above as well as the plan of care for this patient. Total time managing care of this patient today: 75 minutes.
[2024-11-30 05:18] LABS: ABG HCO3 48 mmol/L (22-26); ABG O2 % Saturation 98.0 %
--- NOTE | 2024-11-30 06:30 | PC.NURSE ---
pt went to CT with RT and RN by the bedside. Shortly after pt was transported with RN and RT to ICU. Pt was on bipap and on the residential monitor for. pt tolerated transport well. vitals remained WNL.
[2024-11-30 06:32] LABS: Appearance Urine Clear; Glucose Urine UA >=1000 mg/dL (Negative); PH 5.5 (5.0-9.0); Specific Gravity - Urine 1.020 (1.005-1.025); UMIC TRIGGER UA YES
[2024-11-30 07:52] LABS: MANUAL DIFF FLAG NO
[2024-11-30 08:00] LABS: Ammonia 43 umol/L (13-55)
[2024-11-30 08:03] LABS: Hematocrit 32.2 % (42.0-52.0); Hemoglobin 9.4 g/dl (14.0-18.0); Imm Gran Abs Auto 0.06 X10*3/uL (0.00-0.03); Imm Gran Pct Auto 1.0 % (0.0-0.4); Lymphocytes Absolute Auto 0.5 X10*3/uL (1.2-4.9); Mean Corpuscular HGB Conc 29.2 g/dl (31.0-36.0); Mean Corpuscular Hemoglobin 27.2 pg (27.0-33.0); Mean Corpuscular Volume 93.3 fL (80.0-98.0); NRBC Abs Auto 0.000 X10*3/uL (0.0-0.012); NRBC Pct Auto 0.0 /100WBC (0.0-0.2); Platelet Count 200 X10*3/uL (160-400); Red Blood Count 3.45 X10*6/uL (4.60-5.80); White Blood Count 6.0 X10*3/uL (4.8-10.8)
[2024-11-30 08:11] LABS: Alanine Aminotransferase 13 U/L (0-40); Albumin Level 3.5 g/dL (3.5-5.0); Alkaline Phosphatase 88 U/L (39-117); Anion Gap 10 (12-20); Aspartate Amino Transferase 22 U/L (5-37); Blood Urea Nitrogen 12 mg/dL (9-16); Calcium 8.6 mg/dL (8.4-10.2); Carbon Dioxide 43 mmol/L (22-29); Chloride 91 mmol/L (96-108); Creatinine Clr Calc Pharmacy 74.2; Estimated Glomerular Filt Rate > 60; Magnesium 1.8 mg/dL (1.6-2.6); Potassium 4.3 mmol/L (3.3-5.1); Sodium 140 mmol/L (135-145); Total Protein 6.1 g/dL (6.5-8.0)
--- NOTE | 2024-11-30 08:13 | PHA.MEDREC ---
Addendum entered by Chip Price RPh 11/30/24 09:00: Reviewed by [facility] Original Note: Pharmacy Consult ? Medication Reconciliation Pharmacy has completed the medication reconciliation. Patient is a poor historian. Called an spoke to patients over the phone and she was able to confirm patients medications. states patient just finished 10 day course of Doxycycline HYC 100 mg BID, Patient is not taking Trulance 3 mg. confirmed Azithromycin 500 mg every Saturday, Saturday and Saturday. Patient last had his medications last night.
[2024-11-30 08:14] LABS: B Type Natriuretic Peptide 109 pg/mL (<100)
[2024-11-30] MEDS: Potassium Phosphate/NS 15 MMOL/250 ML PLAST..BAG 62.5 MMOL IV (10:19)
[2024-11-30 10:41] LABS: Venous Blood Gas Refer to POC result
[2024-11-30 10:41] LABS: VBG HCO3 48 mmol/L (22-26); VBG O2 % Saturation 81.0 %
[2024-11-30] MEDS: Albuterol/Iprat 2.5/0.5MG 3 ML AMPUL.NEB INHALE ×3 (11:04→22:48)
[2024-11-30 12:39] LABS: Glucose, Whole Blood 237 mg/dL (60-115)
--- NOTE | 2024-11-30 15:56 | MHC.CM.PN ---
Spoke with pt's spouse/HCP Maxine who states pt resides with her and has no services. He uses a walker on occasion and has [employer] for home O2 and CPAP. Maxine states pt has a hx of declining services like VNA and can be cranky Maxine transports pt to all appointments as pt no longer drives. CM to reassess for skilled RN needs. IMM in chart
[2024-11-30 16:40] LABS: Glucose, Whole Blood 330 mg/dL (60-115)
[2024-11-30 18:04] LABS: VBG HCO3 45 mmol/L (22-26); VBG O2 % Saturation 83.0 %
[2024-11-30 18:22] LABS: Venous Blood Gas Refer to POC result
[2024-11-30 21:07] LABS: Glucose, Whole Blood 347 mg/dL (60-115)
[2024-12-01] VITALS (22 sets, daily range): BP systolic 97–141; BP diastolic 42–80; PULSE 60–108; RESP 12–21; TEMP 35.7–36.8; O2SAT 91–99; BMI 33.3
[2024-12-01 05:15] LABS: VBG HCO3 46 mmol/L (22-26); VBG O2 % Saturation 75.0 %
[2024-12-01] MEDS: Albuterol/Iprat 2.5/0.5MG 3 ML AMPUL.NEB INHALE ×4 (05:18→21:39)
[2024-12-01 05:19] LABS: Venous Blood Gas Refer to POC result
[2024-12-01 05:52] LABS: MANUAL DIFF FLAG NO
[2024-12-01 05:55] LABS: Hematocrit 28.7 % (42.0-52.0); Hemoglobin 8.8 g/dl (14.0-18.0); Imm Gran Abs Auto 0.03 X10*3/uL (0.00-0.03); Imm Gran Pct Auto 0.5 % (0.0-0.4); Lymphocytes Absolute Auto 0.7 X10*3/uL (1.2-4.9); Mean Corpuscular HGB Conc 30.7 g/dl (31.0-36.0); Mean Corpuscular Hemoglobin 27.5 pg (27.0-33.0); Mean Corpuscular Volume 89.7 fL (80.0-98.0); NRBC Abs Auto 0.000 X10*3/uL (0.0-0.012); NRBC Pct Auto 0.0 /100WBC (0.0-0.2); Platelet Count 211 X10*3/uL (160-400); Red Blood Count 3.20 X10*6/uL (4.60-5.80); White Blood Count 6.6 X10*3/uL (4.8-10.8)
[2024-12-01 06:09] LABS: Anion Gap 14 (12-20); Blood Urea Nitrogen 14 mg/dL (9-16); Calcium 8.8 mg/dL (8.4-10.2); Carbon Dioxide 38 mmol/L (22-29); Chloride 91 mmol/L (96-108); Creatinine Clr Calc Pharmacy 74.2; Estimated Glomerular Filt Rate > 60; Magnesium 2.0 mg/dL (1.6-2.6); Potassium 4.4 mmol/L (3.3-5.1); Sodium 139 mmol/L (135-145)
[2024-12-01 07:14] LABS: Glucose, Whole Blood 264 mg/dL (60-115)
--- NOTE | 2024-12-01 08:57 | PM.CCPN ---
Subjective Subjective Date of Service: 12/01/24 Interval History: no significant overnight events Critical Care Time (minutes): 0 Physical Exam Vital Signs: Vital Signs: Last Vital Signs Temp 96.3 F L 12/01/24 04:00 Pulse 89 12/01/24 07:00 Resp 16 12/01/24 07:00 BP 117/59 L 12/01/24 07:00 Pulse Ox 91 L 12/01/24 07:00 O2 Del Method Nasal Cannula 12/01/24 06:00 O2 Flow Rate 3 12/01/24 07:00 FiO2 40 12/01/24 05:00 Oxygen Flow Rate 4 11/30/24 00:40 BMI result Body Mass Index 33.3 Const: General: cooperative, healthy appearing, comfortable, no acute distress and well developed Orientation/consciousness: patient oriented x3 HEENT: Head: Yes normal to inspection, Yes normocephalic and Yes atraumatic Eyes: General: appearance normal, both eyes and all related structures Neck: Neck: Yes normal visual inspection, Yes full ROM, Yes no meningeal signs, Yes trachea midline and Yes supple Chest: Chest palpation & inspection: normal inspection of the chest Resp: Other: no appreciable overt rales, rhonchi, wheezing Cardio: Rate: regular rate Rhythm: regular rhythm GI: Inspection: Yes normal to inspection, No Abdominal wall edema and No distended Palpation (GI): Soft to palpation Skin: General skin exam: no rashes or lesions noted Neuro: General: patient oriented x3, tone normal, moves all extremities, no meningeal signs and no focal motor deficits Extrem: Other: trace pitting edema to bilateral shins General: Yes normal to inspection, Yes full ROM and Yes capillary refill normal Psych: Appearance: grossly normal Objective Data Labs 12/01/24 05:09 12/01/24 05:09 Labs: Laboratory Results - last 24 hr 11/30/24 11/30/24 11/30/24 10:34 12:02 16:37 WBC RBC Hgb Hct MCV MCH MCHC RDW Plt Count MPV Immature Gran % (Auto) Neut % (Auto) Lymph % (Auto) [place] % (Auto) Eos % (Auto) Baso % (Auto) Lymph # (Auto) [place] # (Auto) Eos # (Auto) Baso # (Auto) Abs Immat Gran (auto) Absolute Neuts (auto) Absolute Nucleated RBC Nucleated RBC % (auto) VBG pH 7.37 VBG pCO2 82 VBG pO2 49 VBG HCO3 48 H VBG O2 Saturation 81.0 VBG Base Excess 18.8 Sodium Potassium Chloride Carbon Dioxide Anion Gap BUN Creatinine Estim Creat Clear Calc Estimated GFR POC Glucose 237 H 330 H Random Glucose Calcium Phosphorus Magnesium 11/30/24 11/30/24 12/01/24 17:52 21:01 05:09 WBC 6.6 RBC 3.20 L Hgb 8.8 L Hct 28.7 L MCV 89.7 MCH 27.5 MCHC 30.7 L RDW 13.9 Plt Count 211 MPV 10.1 Immature Gran % (Auto) 0.5 H Neut % (Auto) 86.3 H Lymph % (Auto) 9.9 L [place] % (Auto) 3.1 Eos % (Auto) 0.0 Baso % (Auto) 0.2 Lymph # (Auto) 0.7 L [place] # (Auto) 0.2 Eos # (Auto) 0.0 Baso # (Auto) 0.0 Abs Immat Gran (auto) 0.03 Absolute Neuts (auto) 5.7 Absolute Nucleated RBC 0.000 Nucleated RBC % (auto) 0.0 VBG pH 7.34 VBG pCO2 84 VBG pO2 53 VBG HCO3 45 H VBG O2 Saturation 83.0 VBG Base Excess 15.6 Sodium 139 Potassium 4.4 Chloride 91 L Carbon Dioxide 38 H Anion Gap 14 BUN 14 Creatinine 0.92 Estim Creat Clear Calc 74.2 Estimated GFR > 60 POC Glucose 347 H Random Glucose 264 H Calcium 8.8 Phosphorus 2.3 L Magnesium 2.0 12/01/24 12/01/24 05:11 07:10 WBC RBC Hgb Hct MCV MCH MCHC RDW Plt Count MPV Immature Gran % (Auto) Neut % (Auto) Lymph % (Auto) [place] % (Auto) Eos % (Auto) Baso % (Auto) Lymph # (Auto) [place] # (Auto) Eos # (Auto) Baso # (Auto) Abs Immat Gran (auto) Absolute Neuts (auto) Absolute Nucleated RBC Nucleated RBC % (auto) VBG pH 7.52 H VBG pCO2 57 VBG pO2 43 VBG HCO3 46 H VBG O2 Saturation 75.0 VBG Base Excess 20.9 Sodium Potassium Chloride Carbon Dioxide Anion Gap BUN Creatinine Estim Creat Clear Calc Estimated GFR POC Glucose 264 H Random Glucose Calcium Phosphorus Magnesium Progress Note: A&P Assessment and plan (1) Acute on chronic respiratory failure with hypoxia and hypercapnia: Status: Acute (2) COPD, severe: Status: Acute Plan Patient is a 74 Y M w/ hypertension, hyperlipidemia, diabetes mellitus type II, c/b CAD, prior lung cancer s/p chemotherapy and radiation, c/b fibrosis, COPD, c/b chronic mixed respiratory failure, recent exacerbation requiring admission, obstructive sleep apnea w/ intermittent CPAP use, presenting to ED on 11/29 w/ dyspnea, found to have acute on chronic mixed respiratory failure necessitating BiPAP N: encephalopathy, likely toxic-metabolic, resolved CV: no acute issues R: acute on chronic mixed respiratory failure, likely d/t COPD exacerbation, s/p BiPAP, on empiric azithromycin, steroids; LIBRADO, CPAP naps and PM, though non-compliant GI: no acute issues; diabetic diet : no acute issues H: no acute issues; chemical DVT prophylaxis ID: empric azithromycin in setting of COPD exacerbation E: no acute issues P: no acute issues S: daily updates given to Quality Stroke Does the patient have a stroke diagnosis?: No VTE Prior VTE?: No VTE Risk Level:: Medical - moderate - high VTE Device Contraindication: N/A - Device Ordered VTE Drug Contraindication: N/A - Med Ordered
[2024-12-01 11:32] LABS: Glucose, Whole Blood 303 mg/dL (60-115)
[2024-12-01 16:17] LABS: Glucose, Whole Blood 272 mg/dL (60-115)
[2024-12-01 16:54] LABS: Glucose, Whole Blood 272 mg/dL (60-115)
[2024-12-01 20:30] LABS: Glucose, Whole Blood 366 mg/dL (60-115)
[2024-12-02] VITALS (13 sets, daily range): BP systolic 121–137; BP diastolic 59–77; PULSE 76–107; RESP 16–26; TEMP 36.3–36.8; O2SAT 94–98
[2024-12-02] MEDS: Albuterol/Iprat 2.5/0.5MG 3 ML AMPUL.NEB INHALE ×4 (05:35→23:30)
[2024-12-02 07:06] LABS: Glucose, Whole Blood 285 mg/dL (60-115)
[2024-12-02 10:03] LABS: Hematocrit 30.4 % (42.0-52.0); Hemoglobin 9.3 g/dl (14.0-18.0); Imm Gran Abs Auto 0.02 X10*3/uL (0.00-0.03); Imm Gran Pct Auto 0.3 % (0.0-0.4); Lymphocytes Absolute Auto 0.3 X10*3/uL (1.2-4.9); MANUAL DIFF FLAG SCAN; Mean Corpuscular HGB Conc 30.6 g/dl (31.0-36.0); Mean Corpuscular Hemoglobin 27.4 pg (27.0-33.0); Mean Corpuscular Volume 89.4 fL (80.0-98.0); NRBC Abs Auto 0.000 X10*3/uL (0.0-0.012); NRBC Pct Auto 0.0 /100WBC (0.0-0.2); Platelet Count 213 X10*3/uL (160-400); Red Blood Count 3.40 X10*6/uL (4.60-5.80); SCAN SMEAR FLAG 1; White Blood Count 6.6 X10*3/uL (4.8-10.8)
[2024-12-02 10:46] LABS: Anion Gap 12 (12-20); Blood Urea Nitrogen 15 mg/dL (9-16); Calcium 8.9 mg/dL (8.4-10.2); Carbon Dioxide 35 mmol/L (22-29); Chloride 89 mmol/L (96-108); Creatinine Clr Calc Pharmacy 74.5; Estimated Glomerular Filt Rate > 60; Magnesium 2.2 mg/dL (1.6-2.6); Potassium 4.2 mmol/L (3.3-5.1); Sodium 132 mmol/L (135-145)
[2024-12-02 10:54] LABS: Glucose, Whole Blood 333 mg/dL (60-115)
--- NOTE | 2024-12-02 11:20 | P.PNIM_ITS ---
Subjective Subjective Date of Service: 12/02/24 Interval History: f/u on copd exacerbation requiring icu level of care overall doing better, Physical Exam 2 Exam: Exam: General: AO X 3, no acute distress Resp: some wheezes CVS: S1,S2,RRR GI: +BS, NT, no distention Skin: No rash Neuro: motor grossly intact Psych: appropriate affect Vital Signs: Vital Signs: Last Vital Signs Temp 98.0 F 12/02/24 10:57 Pulse 101 H 12/02/24 10:57 Resp 20 12/02/24 10:57 BP 137/70 12/02/24 10:57 Pulse Ox 95 12/02/24 10:57 O2 Del Method Nasal Cannula 12/02/24 10:57 O2 Flow Rate 3 12/02/24 10:57 FiO2 40 12/02/24 00:00 Oxygen Flow Rate 4 11/30/24 00:40 BMI result Body Mass Index 33.3 Objective Data Active Medications Albuterol Sulfate (Albuterol Sulfate (0.083%) 2.5 Mg/3 Ml Vial.Neb) 2.5 mg INHALE Q3H PRN PRN Reason: wheezing Albuterol/Ipratropium (Albuterol/Iprat 2.5/0.5mg 3 Ml Ampul.Neb) 3 ml INHALE Q6H [facility] Last Admin: 12/02/24 05:35 Dose: 3 ml Documented By: ANIBAL Aspirin (Aspirin 81 Mg Tab.Chew) 81 mg PO DAILY [facility] Last Admin: 12/02/24 09:27 Dose: 81 mg Documented By: JOHNIE Atorvastatin Calcium (Atorvastatin Calcium 80 Mg Tablet) 80 mg PO BEDTIME [facility] Last Admin: 12/01/24 20:41 Dose: 80 mg Documented By: TITI Dextrose (Dextrose 50 % 25 Gm/50 Ml Syringe) 25 gm IVPUSH Q15M PRN; Protocol PRN Reason: per Hypoglycemia Standing Ord. Enoxaparin Sodium (Enoxaparin Sodium 40 Mg/0.4 Ml Syringe) 40 mg SUBCUT Q24H [facility] Last Admin: 12/02/24 06:16 Dose: Not Given Documented By: TITI Non-Admin Reason: Patient Refused Escitalopram Oxalate (Escitalopram Oxalate 20 Mg Tablet) 20 mg PO DAILY [facility] Last Admin: 12/02/24 09:28 Dose: 20 mg Documented By: JOHNIE Glucose (Glucose Gel 15 Gm Gel..Gram.) 15 gm PO Q15M PRN; Protocol PRN Reason: per Hypoglycemia Standing Ord. Azithromycin 500 mg/ Sodium (Chloride) 250 mls @ 125 mls/hr IV Q24H [facility] Stop: 12/04/24 07:29 Last Infusion: 12/02/24 08:17 Dose: Infused Documented By: JOHNIE Insulin Human Lispro (Insulin Lispro 100 Unit/Ml 3 Ml Vial) 0 unit SUBCUT QIDACHS [facility]; Protocol Last Admin: 12/02/24 07:48 Dose: 8 unit Documented By: JOHNIE Omeprazole (Omeprazole 20 Mg Capsule.Dr) 20 mg PO DAILY@0630 [facility] Last Admin: 12/02/24 06:16 Dose: 20 mg Documented By: TITI Polyethylene Glycol (Polyethylene Glycol 3350 17 Gm Powd.Pack) 17 gm PO DAILY PRN PRN Reason: Constipation Last Admin: 12/01/24 00:51 Dose: 17 gm Documented By: DAXA Labs 12/02/24 09:10 12/02/24 09:10 Labs: Laboratory Results - last 24 hr 12/01/24 12/01/24 12/01/24 11:21 16:14 16:50 MCV MCH MCHC RDW Plt Count MPV Immature Gran % (Auto) Neut % (Auto) Lymph % (Auto) [place] % (Auto) Eos % (Auto) Baso % (Auto) Lymph # (Auto) [place] # (Auto) Eos # (Auto) Baso # (Auto) Abs Immat Gran (auto) Absolute Neuts (auto) Absolute Nucleated RBC Nucleated RBC % (auto) Smear Tech's Comments Anion Gap Estim Creat Clear Calc Estimated GFR POC Glucose 303 H 272 H 272 H Random Glucose Calcium Phosphorus Magnesium 12/01/24 12/02/24 12/02/24 20:27 06:57 09:10 MCV 89.4 MCH 27.4 MCHC 30.6 L RDW 14.3 Plt Count 213 MPV 10.3 Immature Gran % (Auto) 0.3 Neut % (Auto) 91.6 H Lymph % (Auto) 4.8 L [place] % (Auto) 3.3 Eos % (Auto) 0.0 Baso % (Auto) 0.0 Lymph # (Auto) 0.3 L [place] # (Auto) 0.2 Eos # (Auto) 0.0 Baso # (Auto) 0.0 Abs Immat Gran (auto) 0.02 Absolute Neuts (auto) 6.1 Absolute Nucleated RBC 0.000 Nucleated RBC % (auto) 0.0 Smear Tech's Comments VERIFIED Anion Gap 12 Estim Creat Clear Calc 74.5 Estimated GFR > 60 POC Glucose 366 H* 285 H Random Glucose 393 H* Calcium 8.9 Phosphorus 2.3 L Magnesium 2.2 12/02/24 10:48 MCV MCH MCHC RDW Plt Count MPV Immature Gran % (Auto) Neut % (Auto) Lymph % (Auto) [place] % (Auto) Eos % (Auto) Baso % (Auto) Lymph # (Auto) [place] # (Auto) Eos # (Auto) Baso # (Auto) Abs Immat Gran (auto) Absolute Neuts (auto) Absolute Nucleated RBC Nucleated RBC % (auto) Smear Tech's Comments Anion Gap Estim Creat Clear Calc Estimated GFR POC Glucose 333 H Random Glucose Calcium Phosphorus Magnesium Assessment and Plan (1) Acute and chronic respiratory failure: Status: Acute Plan Patient is a 74 Y M w/ hypertension, hyperlipidemia, diabetes mellitus type II, c/b CAD, prior lung cancer s/p chemotherapy and radiation, c/b fibrosis, COPD, c/b chronic mixed respiratory failure, recent exacerbation requiring admission, obstructive sleep apnea w/ intermittent CPAP use, presenting to ED on 11/29 w/ dyspnea, found to have acute on chronic mixed respiratory failure necessitating BiPAP N: encephalopathy, likely toxic-metabolic, resolved CV: no acute issues R: acute on chronic mixed respiratory failure, likely d/t COPD exacerbation, s/p BiPAP, on empiric azithromycin, steroids; LIBRADO, CPAP naps and PM, though non- compliant, change to PO steroid. O2 keep sat 88 to 92 GI: no acute issues; diabetic diet : no acute issues H: no acute issues; chemical DVT prophylaxis ID: empric azithromycin in setting of COPD exacerbation E:diabetes, elevated BS d/t steroid, restart glipizide, metformin and reduce steroid, monit P: no acute issues S: daily updates given to DVT prophylaxis: Lovenox diabetic diet, out of bed Quality Stroke Does the patient have a stroke diagnosis?: No VTE Prior VTE?: No VTE Risk Level:: Medical - moderate - high VTE Device Contraindication: N/A - Device Ordered VTE Drug Contraindication: N/A - Med Ordered
--- NOTE | 2024-12-02 13:04 | MHC.CM.PN ---
EMR REVIEWED, PT W/COPD AND ICU DOWNGRADE, NO PLAN FOR DC AT THIS TIME, CM WILL CONT TO FOLLOW DC NEEDS.
[2024-12-02 15:59] LABS: Glucose, Whole Blood 226 mg/dL (60-115)
[2024-12-02 20:19] LABS: Glucose, Whole Blood 236 mg/dL (60-115)
[2024-12-03 03:27] VITALS: BP 117/60; PULSE 93; RESP 18; TEMP 36.7; O2SAT 97
[2024-12-03 04:29] VITALS: PULSE 86; RESP 18; O2SAT 95
[2024-12-03] MEDS: Albuterol/Iprat 2.5/0.5MG 3 ML AMPUL.NEB INHALE ×2 (04:29→09:08)
[2024-12-03 04:31] VITALS: PULSE 93; RESP 18; O2SAT 84
[2024-12-03 06:37] LABS: MANUAL DIFF FLAG NO
[2024-12-03 06:57] LABS: Anion Gap 14 (12-20); Blood Urea Nitrogen 22 mg/dL (9-16); Calcium 9.2 mg/dL (8.4-10.2); Carbon Dioxide 39 mmol/L (22-29); Chloride 91 mmol/L (96-108); Creatinine Clr Calc Pharmacy 66.7; Estimated Glomerular Filt Rate > 60; Magnesium 2.1 mg/dL (1.6-2.6); Potassium 4.1 mmol/L (3.3-5.1); Sodium 140 mmol/L (135-145)
[2024-12-03 06:59] LABS: Glucose, Whole Blood 137 mg/dL (60-115)
[2024-12-03 07:01] VITALS: BP 118/62; PULSE 100; RESP 20; TEMP 36.6; O2SAT 96
[2024-12-03 07:11] LABS: Hematocrit 32.1 % (42.0-52.0); Hemoglobin 9.8 g/dl (14.0-18.0); Imm Gran Abs Auto 0.05 X10*3/uL (0.00-0.03); Imm Gran Pct Auto 0.5 % (0.0-0.4); Lymphocytes Absolute Auto 1.4 X10*3/uL (1.2-4.9); Mean Corpuscular HGB Conc 30.5 g/dl (31.0-36.0); Mean Corpuscular Hemoglobin 27.4 pg (27.0-33.0); Mean Corpuscular Volume 89.7 fL (80.0-98.0); NRBC Abs Auto 0.000 X10*3/uL (0.0-0.012); NRBC Pct Auto 0.0 /100WBC (0.0-0.2); Platelet Count 254 X10*3/uL (160-400); Red Blood Count 3.58 X10*6/uL (4.60-5.80); White Blood Count 9.3 X10*3/uL (4.8-10.8)
[2024-12-03] MEDS: Calcium + Vitamin D 250 MG TABLET PO (08:25)
[2024-12-03 09:10] VITALS: PULSE 101; RESP 19; O2SAT 95
--- NOTE | 2024-12-03 10:19 | PM.DS ---
DS: Providers Provider Date of Service: 12/03/24 Date of admission: 11/30/24 05:00 Date of discharge: 12/03/24 Primary care physician: Anne-Marie Muro MD DS: Diagnosis Discharge Diagnosis (1) Acute and chronic respiratory failure: Status: Acute DS: Summary Hospital Course Hospital Course: admission hpi Chief Complaint: Acute hypoxic respiratory failure, metabolic encephalopathy 74-year-old well-known patient to our service who has recently admitted and discharged from this hospital on 11/11/2024 due to respiratory failure and COPD exacerbation requiring steroid treatment. 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 The patient had presented to the emergency room with complaints of shortness of breath, dizziness and nausea otherwise his story was vague. ?The workup reveals a hemodynamically stable patient with a white count 6.8, H and H of 10.1 and 34.0 respectively, platelets 216 no bandemia.? VBG pH 7.3, pCO2 94, PO2 81, HC03 49, O2 sat 97%.? Sodium 141 potassium 4.3 chloride 91 carbon dioxide 39 anion gap 15 BUN 9, creatinine 0.95 random glucose 266 calcium 9.1, troponin 6.7, respiratory panel negative.? Chest x-ray unremarkable without evidence of pulmonary disease. ?EKG reviewed by me shows sinus tachycardia ventricular rate 108 beats per minute.? There is no ST elevations, no ST depressions.? [facility] 340 EMS.? No comparison available. Normally the patient does not require rescue BiPAP, he is wheezing on exam, hypercarbic and unlike other times the patient is now confused which I believe is due to hypercapnia.? We will order a head CT to rule out intracranial pathology and transferred to the ICU for further BiPAP and treatment of his COPD exacerbation. Hospital course: Patient is a 74 Y M w/ hypertension, hyperlipidemia, diabetes mellitus type II, c/b CAD, prior lung cancer s/p chemotherapy and radiation, c/b fibrosis, COPD, c/b chronic mixed respiratory failure, recent exacerbation requiring admission, obstructive sleep apnea w/ intermittent CPAP use, presenting to ED on 11/29 w/ dyspnea, found to have acute on chronic mixed respiratory failure necessitating BiPAP. He was encephalopathic from hypercarbia. He was admitted to the ICU and treated with BiPAP, IV steroid, bronchodialtors by Nebulizer and empric Azithromcycin for pleotropic effect and possible bronchitis. Patijocelynn's condition improved quickly and he was downgraded from the ICU the following and continue to make progress. He presently does not have any respriatory difficulty, and is maintaning a good oxygen saturation on baseline home oxygen of 3 to 4 liters. Encephalpathy has resolved. He will complete 5 days of azithromycin and Prednsione maria r for 1 more week. He advised to continue to adherent to non smoking. Final diagnoses: Acute hypoxic and hypercarbid respiratory failure due to copd exacerbation COPD exacerbation Metabolic encephalopathy Time Attestation Discharge Coordination Time (in mins): 45 Quality: Safe Use of Opioids Does Pt have an Active Cancer Diagnosis on the Problem List?: No Quality: Stroke Does the patient have a stroke diagnosis?: No Physical Exam Vital Signs: Vital Signs: Last Vital Signs Temp 97.9 F 12/03/24 07:01 Pulse 101 H 12/03/24 09:10 Resp 19 12/03/24 09:10 BP 118/62 12/03/24 07:01 Pulse Ox 96 12/03/24 07:01 O2 Del Method Nasal Cannula 12/03/24 07:01 O2 Flow Rate 3 12/03/24 07:01 FiO2 40 12/02/24 00:00 Oxygen Flow Rate 4 11/30/24 00:40 BMI result Body Mass Index 33.3 DS: Data Data Completed and Pending Completed studies during hospitalization [Text1]: Procedures Assistance with Respiratory Ventilation, Less than 24 Consecutive Hours, Continuous Positive Airway Pressure (06/16/24) Excision of Rectum, Via Natural or Artificial Opening Endoscopic, Diagnostic (05/26/24) Excision of Sigmoid Colon, Via Natural or Artificial Opening Endoscopic, Diagnostic (05/26/24) Excision of Transverse Colon, Via Natural or Artificial Opening Endoscopic, Diagnostic (05/26/24) Irrigation of Lower GI using Irrigating Substance, Via Natural or Artificial Opening (07/29/22) Labs on day of discharge: Laboratory Results - last 24 hr 12/02/24 12/02/24 12/02/24 09:10 10:48 15:55 WBC RBC Hgb Hct MCV MCH MCHC RDW Plt Count MPV Immature Gran % (Auto) 0.3 Neut % (Auto) 91.6 H Lymph % (Auto) 4.8 L [place] % (Auto) 3.3 Eos % (Auto) 0.0 Baso % (Auto) 0.0 Lymph # (Auto) 0.3 L [place] # (Auto) 0.2 Eos # (Auto) 0.0 Baso # (Auto) 0.0 Abs Immat Gran (auto) 0.02 Absolute Neuts (auto) 6.1 Absolute Nucleated RBC 0.000 Nucleated RBC % (auto) 0.0 Smear Tech's Comments VERIFIED Sodium 132 L Potassium 4.2 Chloride 89 L Carbon Dioxide 35 H Anion Gap 12 BUN 15 Creatinine 0.93 Estim Creat Clear Calc 74.5 Estimated GFR > 60 POC Glucose 333 H 226 H Random Glucose 393 H* Calcium 8.9 Phosphorus 2.3 L Magnesium 2.2 12/02/24 12/03/24 12/03/24 19:47 05:17 06:56 WBC 9.3 RBC 3.58 L Hgb 9.8 L Hct 32.1 L MCV 89.7 MCH 27.4 MCHC 30.5 L RDW 14.5 Plt Count 254 MPV 10.1 Immature Gran % (Auto) 0.5 H Neut % (Auto) 76.0 H Lymph % (Auto) 14.9 L [place] % (Auto) 8.3 Eos % (Auto) 0.2 Baso % (Auto) 0.1 Lymph # (Auto) 1.4 [place] # (Auto) 0.8 Eos # (Auto) 0.0 Baso # (Auto) 0.0 Abs Immat Gran (auto) 0.05 H Absolute Neuts (auto) 7.0 Absolute Nucleated RBC 0.000 Nucleated RBC % (auto) 0.0 Smear Tech's Comments Sodium 140 Potassium 4.1 Chloride 91 L Carbon Dioxide 39 H Anion Gap 14 BUN 22 H Creatinine 1.04 Estim Creat Clear Calc 66.7 Estimated GFR > 60 POC Glucose 236 H 137 H Random Glucose 147 H Calcium 9.2 Phosphorus 2.4 L Magnesium 2.1 Discharge Plan Discharge Anticipated Discharge Date/Time: 12/03/24 09:54 Patient Disposition: Home Health Service Discharge Diagnosis: Acute respiratory failure due to copd exacerbation Referrals: Anne-Marie Muro MD [Primary Care Provider, Internal Medicine] - 1 Week Discharge Medications: New prednisone 10 mg tablet See Taper PO DIRECTED Qty: 20 0RF Taper: Prednisone 40 mg daily for 2 Days and 0 Hour 30 mg daily for 2 Days and 0 Hour 20 mg daily for 2 Days and 0 Hour 10 mg daily for 2 Days and 0 Hour Rx Instructions: see taper instructions azithromycin 250 mg tablet 250 mg PO DAILY 1 Days Qty: 1 0RF Rx Instructions: next dose tomorrow 12/04 Continued (DME) blood-glucose meter [FreeStyle Lite Meter] Kit See Rx Instructions .Route Qty: 1 0RF Rx Instructions: As directed (DME) lancets [FreeStyle Lancets] 28 gauge misc See Rx Instructions .Route Qty: 100 1RF Rx Instructions: Test blood sugar twice (DME) FreeStyle Lite Strips Strip See Rx Instructions .Route Qty: 50 7RF Rx Instructions: check fasting glucose once a day AC metformin 1,000 mg tablet 1,000 mg PO BID Qty: 180 1RF atorvastatin 80 mg tablet 80 mg PO BEDTIME Qty: 90 1RF omeprazole 20 mg capsule,delayed release(DR/EC) 20 mg PO DAILY@0630 Qty: 30 1RF glipizide 5 mg tablet 5 mg PO BID Qty: 270 4RF ipratropium-albuterol 0.5 mg-3 mg(2.5 mg base)/3 mL solution for nebulization 3 ml inhalation Q6H PRN (Reason: wheezing) Qty: 180 2RF escitalopram oxalate 20 mg tablet 20 mg PO DAILY Qty: 90 3RF lorazepam [Ativan] 1 mg tablet 0.5 mg PO BID PRN (Reason: anxiety) Qty: 30 0RF Rx Instructions: Patient may request partial fill metoprolol tartrate 25 mg tablet 25 mg PO BID Qty: 180 1RF budesonide-formoterol [Symbicort] 160-4.5 mcg/actuation Hfa Aerosol Inhaler 2 puff INHALATION DAILY calcium carbonate-vitamin D3 600 mg-10 mcg (400 unit) tablet 1 tab PO DAILY bisacodyl [Laxative (bisacodyl)] 5 mg tablet,delayed release (DR/EC) 10 mg PO DAILY PRN (Reason: constipation) albuterol sulfate [Ventolin HFA] 90 mcg/actuation HFA aerosol inhaler 2 puff inhalation Q4H PRN (Reason: shortness of breath or wheezing) sennosides [senna] 8.6 mg tablet 17.2 mg PO BID aspirin 81 mg Tablet 81 mg PO DAILY lactulose 10 gram/15 mL solution 10 g PO BID PRN (Reason: Constipation) (DME) Oxygen Home Use Kit See Rx Instructions .Route Rx Instructions: As directed azithromycin 500 mg tablet 500 mg PO MOWEFR 30 Days Qty: 13 1RF polyethylene glycol 3350 [Miralax] 17 gram/dose powder 17 g PO DAILY 1 Days Qty: 238 0RF Rx Instructions: Mix Miralax with 64 oz(8 cups) of Crystal light. Take 2 tablets of Dulcolax qt 12 pm. Wait to have your 1st bowel movement, then begin drinking Miralax. Drink a glass of Miralax every 10-15 minutes until you are finished. You will drink at least another 4 cups of clear liquid of your choice over the next 2 hours. Please drink as many clear liquids as possible Discharge Orders: Discharge Order (Routine); Ordered 12/03/24 Ordered By: Edy Vasquez Diet: Diabetic diet Activity on Discharge: As tolerated Stand Alone Forms: Patient Portal Discharge page Print Language: Indonesian Care Plan Goals: recovery from copd exacerbation and respriatory failure Health Concerns: copd exacerbation, repiratory failure, encephalopathy Plan of Treatment: take Prednisone as directed take azithromycin as directed Assessment: see above
--- NOTE | 2024-12-03 10:29 | W.MHC.F2F ---
Service Date Service Date: 12/03/24 Encounter Date of encounter: 12/03/24 Reasons for Services Signs and symptoms assessed: respriatory failure, hypoxia Reason for care home: medication management and medication treatment Homebound: Leaving the home is medically contraindicated at this time without the asist of a device and/or another person due th the listed conditions above and below. Reason homebound: shortness of breath with minimal effort and unable to drive Certification: Based on the above findings, I certify that this patient is confined to the home and needs intermittent care home care, physical therapy and/or speech therapy, or continues to need occupational therapy. The patient is under my care, and I have initiated the establishment of the plan of care. The patient will be followed by a physician who will periodically review the plan of care. Time Spent With Patient Time: Total time managing care of this patient today ____ minutes.
[2024-12-03 11:10] LABS: Glucose, Whole Blood 181 mg/dL (60-115)
[2024-12-03 11:12] VITALS: BP 117/58; PULSE 110; RESP 18; TEMP 36.8; O2SAT 94
== END 2024-12-03 12:18 | disposition home health service (06) | DRG 190 ==
LOC: HO.ED 04:55 → HO.EDOVER 05:07 → HO.ICU 05:07 → HO.IMC 12-01 15:29 → HO.S3 12-03 08:45 → HO.IMC 12-03 10:38
PROVIDERS: Internal Medicine Critical Care Medicine; Nurse Practitioner Family; Admitting Provider Physician Assistant Medical; Emergency Provider Emergency Medicine; PCP Internal Medicine; Visit Provider Internal Medicine
DX: J44.0 Chronic obstructive pulmonary disease with (acute) lower respiratory infection (principal); G92.8 Other toxic encephalopathy; J96.21 Acute and chronic respiratory failure with hypoxia; J96.22 Acute and chronic respiratory failure with hypercapnia; J70.1 Chronic and other pulmonary manifestations due to radiation; I25.10 Atherosclerotic heart disease of native coronary artery without angina pectoris; E11.9 Type 2 diabetes mellitus without complications; G47.33 Obstructive sleep apnea (adult) (pediatric); D63.8 Anemia in other chronic diseases classified elsewhere; Z95.5 Presence of coronary angioplasty implant and graft; Z20.822 Contact with and (suspected) exposure to COVID-19; Z99.81 Dependence on supplemental oxygen; Z85.118 Personal history of other malignant neoplasm of bronchus and lung; Z92.3 Personal history of irradiation; Z87.891 Personal history of nicotine dependence; Z79.82 Long term (current) use of aspirin; Z79.84 Long term (current) use of oral hypoglycemic drugs; Z79.899 Other long term (current) drug therapy
CPT/HCPCS: 36415; 70450; 71045; 80048; 80053; 81001; 82140; 82803; 82947; 83735; 83880; 84100; 84443; 84484; 85025; 87637; 93005; 94640; 94660; 99285; J0456; J1271; J1650; J2919

== ENCOUNTER → 2024-11-30 00:40 | Outpatient (BNV) | payer MEDICARE, SELFPAY | PROVIDERS: Admitting Provider Physician Assistant Medical; Emergency Provider Emergency Medicine; PCP Internal Medicine; Visit Provider Internal Medicine | DX: R00.0 Tachycardia, unspecified (principal) | CPT/HCPCS: 93010 ==

== ENCOUNTER → 2024-11-30 02:55 | Outpatient (BNV) | payer MEDICARE, SELFPAY | PROVIDERS: Admitting Provider Physician Assistant Medical; Emergency Provider Emergency Medicine; PCP Internal Medicine; Visit Provider Specialist | DX: G93.40 Encephalopathy, unspecified (principal); R06.00 Dyspnea, unspecified | CPT/HCPCS: 70450; 71045 ==

== ENCOUNTER → 2024-11-30 05:00 | Outpatient (BNV) | payer MEDICARE, SELFPAY | PROVIDERS: Admitting Provider Physician Assistant Medical; Emergency Provider Emergency Medicine; PCP Internal Medicine; Visit Provider Internal Medicine | DX: J96.21 Acute and chronic respiratory failure with hypoxia (principal); J96.22 Acute and chronic respiratory failure with hypercapnia | CPT/HCPCS: 99232 ==

== ENCOUNTER → 2024-11-30 05:00 | Outpatient (BNV) | payer MEDICARE, SELFPAY | PROVIDERS: Admitting Provider Physician Assistant Medical; Emergency Provider Emergency Medicine; PCP Internal Medicine; Visit Provider Internal Medicine Critical Care Medicine | DX: J44.9 Chronic obstructive pulmonary disease, unspecified (principal); J96.21 Acute and chronic respiratory failure with hypoxia; J96.22 Acute and chronic respiratory failure with hypercapnia | CPT/HCPCS: 99232 ==

== ENCOUNTER 2024-12-10 10:57 | Outpatient (AMB) | payer MEDICARE, SELFPAY ==
[2024-12-10 11:00] VITALS: BP 110/62; PULSE 69; O2SAT 92
--- NOTE | 2024-12-10 11:00 | MHC.PC.OV ---
Vital Signs 12/10/24 11:00 Height 5 ft 6 in BMI Reason not done Patient refused/unable BP 110/62 Blood Pressure Location Lt brachial Position Sitting Pulse 69 Pulse Oximetry (%) 92 Oxygen Delivery Method Room Air Intake Visit Reasons: COPD Allergies fluticasone furoate (From Trelegy Ellipta) Allergy (Intermediate, Verified 12/10/24 11:01) Rash vilanterol (From Trelegy Ellipta) Allergy (Intermediate, Verified 12/10/24 11:01) Rash umeclidinium (Incruse Ellipta) Allergy (Unknown, Verified 12/10/24 11:01) Hives furosemide (From Lasix) Adverse Reaction (Intermediate, Verified 12/10/24 11:01) Hallucinations Tobacco use date assessed: 06/09/24 Fall risk assessment: No Falls in past year Last assessed Fall Risk: 12/10/24 Dental Screening Dental Screen Date: 06/09/24 HPI TCM TCM Information Date of Discharge 12/03/24 Discharged From [facility] Interactive Contact Date (Reference documentation from this date) 12/08/24 HPI Comments History of Present Illness Details Patient is a 74-year-old male here for a Hospital Discharge Follow up, he has a past medical history of COPD baseline 3-4 L of home oxygen, prior lung cancer s/p chemo and radiation with fibrosis, DM2, HTN, HLD, CAD, LIBRADO with intermittent CPAP use went to the [facility] emergency room on November 29 complaining of shortness of breath. He was found to be acute on chronic mixed respiratory failure requiring BiPAP as he was encephalopathic from the hypercarbia. He was admitted to the [facility] ICU and treated with BiPAP, steroids, nebs and azithromycin for COPD exacerbation and possible bronchitis; he was downgraded to the floor the next day maintaining a good oxygen saturation on his baseline oxygen and his encephalopathy had resolved so he was sent home on 5 days of azithromycin and a prednisone taper for 8 days He was discharged on 12/03. Today, he is having difficulty ambulating as he becomes extremely short of breath, when ambulating from the waiting room to the exam room which is approximately 35-40 ft, he desatted to 85% and took quite a few minutes to recover back up to 90% on 5 L of oxygen. He tells me he can go down to 3L when sitting at home. Overall, he feels better but the shortness of breath with exertion persists. He finished his azithromycin 2 days ago and will finish the pred taper tomorrow. He denies fevers, cough, congestion. He is working with his director information to get a wheelchair. He has follow up with his Hydraulic Lift Driver at the end of December. He and his have questions about his MOLST form, they discussed intubation with the ICU doctor and was told he would likely not recover from an insult to his lungs requiring intubation. Currently, his MOLST is marked as attempt resuscitation but do not intubate . We discussed the pardoxical issue with this scenario, at length, including the rest of the MOLST form, with dialysis, nutrition and IVF and what all of it means. [facility] Medical History Positive colorectal cancer screening using Cologuard test HTN (hypertension) History of adenomatous polyp of colon Acute on chronic respiratory failure with hypoxia and hypercapnia Respiratory failure with hypoxia and hypercapnia Bilateral carotid artery disease CAD (coronary artery disease) Anxiety and depression Anemia Chronic respiratory failure with hypoxia and hypercapnia Radiation fibrosis of lung Dyslipidemia History of pneumonia Bacteremia due to Enterococcus COPD, severe Diabetes mellitus with hyperglycemia, without long-term current use of insulin Urinary incontinence Asthma Lung cancer Skin cancer Surgical History Hx of heart artery stent History of esophagogastroduodenoscopy (EGD) Hx of colonoscopy Family History Father Medical history non-contributory Mother Medical history non-contributory Unknown family medical history Lung collapse Brother No problems noted. Brother No problems noted. Son Substance use disorder Son No problems noted. Daughter No problems noted. Sister No problems noted. Sister No problems noted. Sister No problems noted. Sister No problems noted. Other HTN (hypertension) Social History Household Members: Spouse Household Members Other:: grandson Housing: House Are you a primary transitional care manager to a significant other at home: No Do you presently have visiting nurse or other home services: No Alcohol intake: never Comment: refusing all fall risk interventions Patient Tobacco Use Status: Former Tobacco user Tobacco use type: Cigarette e-Cigarette/Vaping Use: Never Used Advance Directives Date on File: 06/08/22 service: No Current occupational status: retired Cognitive needs: No Hearing needs: No Vision needs: No Questionnaire PHQ-9 Over the last 2 weeks, how often have you been bothered by any of the following problems? Depression Screening Interpretation: Positive (Currently on escitalopram 20 mg daily) Depression Screening Follow-up: Existing condition, In treatment and Community Mental Health Worker F/U Depression Screening Done: Yes Source: Developed by Drs. Finn Stevens, Klaudia Bonilla, Reinaldo Suero and colleagues, with an educational lolita from [employer]. Thrive Questionnaire Date Thrive assessed: 12/09/24 I am a: Patient What is your living situation today?: I have a steady place to live Within the past 12 months, did the food you bought not last and you didn't have the money to get more?: Sometimes True Within the past 12 months, did you worry whether your food would run out before you got money to buy more?: Sometimes True Do you have trouble paying for medicines?: No Do you have trouble getting transportation to medical appointments?: No Do you have trouble paying your heating and electricity bill?: No Do you have trouble taking care of your child, family member or friend?: Yes Do you have trouble with day-to-day activities such as bathing, preparing meals, shopping, managing finances, etc.?: Yes Are you currently unemployed and looking for a job?: No Are you interested in more education?: No Please select the resources that you would like help with: None Currently or been in a relationship where the following occur: No concerns reported THRIVE Score: 2 AUDIT C Alcohol Use Questionnaire (AUDIT-C) 1. How often do you have a drink containing alcohol?: Never 3. How often do you have six or more drinks on one occasion?: Never Total Score: 0 SAUMYA-7 AMB Questionnaire SAUMYA-7 Date SAUMYA - 7 assessed: 10/08/24 Source: Developed by Drs. Finn Stevens, Klaudia Bonilla, Reinaldo Suero and colleagues, with an educational lolita from [employer]. Review of Systems Const All systems reviewed & are unremarkable except as noted in HPI and below Physical exam (Primary Care) Vital Signs: Last Vital Signs Pulse 69 12/10/24 11:00 BP 110/62 12/10/24 11:00 Pulse Ox 92 12/10/24 11:00 Oxygen Delivery Method Room Air 12/10/24 11:00 Tobacco/Smoking Status: Tobacco use Status Tobacco use date assessed 06/09/24 12/10/24 11:02 Patient Tobacco Use Status Former Tobacco user 12/10/24 11:02 Tobacco use type Cigarette 12/10/24 11:02 e-Cigarette/Vaping Use Never Used 12/10/24 11:02 Depression Screening Interpretation: Positive (Currently on escitalopram 20 mg daily) Depression Screening Follow-up: Existing condition, In treatment and Community Mental Health Worker F/U Thrive Assessment: Date of Thrive Assessment Date Thrive assessed 12/09/24 12/10/24 11:02 Currently or been in a relationship where the following occur: No concerns reported Const General: cooperative, healthy appearing, comfortable, no acute distress and well developed Orientation/consciousness: patient oriented x3 Limitations: wheelchair HENMT Other: NC in place Head: Yes normal to inspection Ears: hearing grossly normal bilaterally General nose exam: Normal external nose present Face and sinus: Yes normal facial exam Eyes General: appearance normal, both eyes and all related structures Neck Neck: Yes normal visual inspection and Yes full ROM Resp Effort & Inspection: normal respiratory effort, able to speak in complete sentences and no cough Auscultation: no crackles, no rales, no rhonchi, no wheezes and diminished lung sounds diffuse Cardio Rate: regular rate Rhythm: regular rhythm Heart sounds: Murmur heart sound present Skin General skin exam: no rashes or lesions noted Neuro General: patient oriented x3 Extrem General: Yes normal to inspection Coding Level of Care Code TCM High MDM <= 7 Days Diagnoses Hospital discharge follow-up Z09 Acute exacerbation of chronic obstructive pulmonary disease J44.1 Patient has active medical orders for life-sustaining treatment (MOLST) form Z78.9 Assessment & Plan Assessment & Plan (1) Hospital discharge follow-up: Code(s): Z09 - Encounter for follow-up examination after completed treatment for conditions other than malignant neoplasm Category: Medical Plan: Patient to finish prednisone taper. Recommended he follow up with his Hydraulic Lift Driver at his already scheduled appointment and also follow up with Zandra regarding a wheelchair as they have been working on it for a few months. Any worsening of his shortness of breath, confusion/altered mental status, inability to wean back to his home oxygen level of 3-4L in the next week or so or new coughing, congestion or fevers that may develop, he should return to the emergency department or call his Hydraulic Lift Driver. (2) Acute exacerbation of chronic obstructive pulmonary disease: Code(s): J44.1 - Chronic obstructive pulmonary disease with (acute) exacerbation Category: Medical Plan: as above (3) Patient has active medical orders for life-sustaining treatment (MOLST) form: Code(s): Z78.9 - Other specified health status Category: Medical Plan: Patient and his will make an appointment to follow up with their PCP to likely change there MOLST form from attempt resuscitation and do not intubate to DNR/DNI , transferred to hospital and the rest will likely remain the same. They will discuss it further at home to be sure of their choices.
--- OUTSIDE RECORDS SUMMARY | 2024-12-10 12:34 | XMS_ITS | Clinical Summary ---
Author Organization 175 [facility] Address [address] [place] [address] Phone Care Team Providers Care Billing Clerk Name Role Phone Anne-Marie Muro MD Primary Care Provider [phone] Allergies No known active allergies Medications acetaZOLAMIDE (DIAMOX) 250 mg tablet Take 1 tablet (250 mg total) by mouth 2 (two) times a day. 09/30/2024 Active albuterol HFA (PROAIR HFA ; PROVENTIL HFA ; VENTOLIN HFA) 90 mcg/actuation inhaler TAKE 2 PUFFS BY MOUTH EVERY 4 TO 6 HOURS NEEDED Active atorvastatin (LIPITOR) 80 mg tablet Take 1 tablet (80 mg total) by mouth at bedtime. 09/30/2024 Active blood sugar diagnostic (FreeStyle Lite Strips) test strip TEST FASTING GLUCOSE BEFORE MEALS ONCE DAILY 09/18/2024 Active escitalopram (LEXAPRO) 20 mg tablet Take 1 tablet (20 mg total) by mouth 1 (one) time each day. 10/01/2024 Active lactulose (CHRONULAC) solution TAKE 15 ML ORALLY 2 TIMES A DAY 09/30/2024 Active omeprazole (PriLOSEC) [address] capsule TAKE 1 CAPSULE BY MOUTH DAILY AT 0630 08/14/2024 Active Zithromax 500 mg tablet Take 1 tablet (500 mg total) by mouth 3 (three) times a week. 6 each 11/04/2024 Active Active Problems Patient Care Coordination No te Formatting of this note migh t be different from the original. I have discussed with patient and regarding his overall poor prognosis, advanced care planning was advised. Problem Noted Date Diagnosed Date Acute and chronic respirator y failure with hypoxia ([place] V24, [place] V28) 10/06/2024 Type 2 diabetes mellitus wit hout complication, unspecified whether intermodal dispatcher insulin use ([place] V24, [place] V28) 10/06/2024 Encounters Date Type Department Care Team Description 11/23/2024 Telephone [facility] [place] [address] [facility] [address] [place] [phone] Linnette Marr MD 11/11/2024 Telephone [facility] [place] 175 [facility] [address] [place] [phone] Linnette Marr MD 11/03/2024 Telephone [facility] [place] [address] [phone] Linnette Marr MD 10/28/2024 Telephone [facility] [place] [address] [phone] Linnette Marr MD 10/12/2024 Telephone [facility] [place] [address] [phone] Linnette Marr MD 10/07/2024 Telephone [facility] [place] [address] [phone] Magaly Estrada [place] 10/06/2024 11:15 AM EDT Office Visit [facility] [place] [address] [facility] [address] [place] [phone] Linnette Marr MD Hypoxemia (Primary Dx); Centrilobular emphysema ([place] V24, [place] V28); Obstructive sleep apnea; Acute and chronic respiratory failure with hypoxia ([place] V24, [place] V28); Type 2 diabetes mellitus without complication, unspecified whether intermodal dispatcher insulin use ([place] V24, [place] V28) 10/06/2024 Telephone [facility] [place] [address] [phone] Linnette Marr MD 09/24/2024 Telephone [facility] 175 [facility] [address] [place] [phone] Linnette Marr MD 09/21[facility] [address] [place] [phone] Linnette Marr MD from Last 3 Months Surgical History Surgery [...] Coronary atherosclerosis of unspecified type of vessel, chilkoot or graft 05/30/2011 DX:Coronary atherosclerosis of unspecified type of vessel, chilkoot or graft Family History Medical History Relation [...] Description 01/06/2025 1:15 PM EDT Office Visit [facility] [address] [place] [phone] Linnette Marr MD [address] [place] [phone] Health Maintenance Due Date Last Done Comments [...] 03/23/2022 Hypertension/CHF/CAD Annual BMP Blood Test 03/23/2022 Depression Screening 04/08/2024 COVID-19 Vaccine ( season) 2024 Influenza Vaccine (#1) 2024 9, 01/20/2018, 01/03/2017, [...] age to complete this topic Insurance MEDICARE [facility] Advance Directives Documents on File Type Date Recorded Patient Live In Caregiver Expl anation Health Care Decision (hx) 11/09/2023 AD MCDERMOTT DIRECTIVE Health Care Decision (hx) 11/07/2023 AD MCDERMOTT DIRECTIVE Care Teams Billing Clerk Relationship Specialty Start Date End Date Anne-Marie Muro MD [address] [place] [address] PCP - General Internal Medicine 04/08/11
== END 2024-12-10 12:38 | disposition home or self-care (01) ==
LOC: HO.HMCC 10:59
PROVIDERS: PCP Internal Medicine; Visit Provider Physician Assistant
DX: J44.1 Chronic obstructive pulmonary disease with (acute) exacerbation (principal); Z09 Encounter for follow-up examination after completed treatment for conditions other than malignant neoplasm; Z78.9 Other specified health status

== ENCOUNTER → 2024-12-10 10:57 | Outpatient (BNVA) | payer MEDICARE, SELFPAY | PROVIDERS: PCP Internal Medicine; Visit Provider Physician Assistant | DX: J44.1 Chronic obstructive pulmonary disease with (acute) exacerbation (principal); E11.9 Type 2 diabetes mellitus without complications; I10 Essential (primary) hypertension; I25.10 Atherosclerotic heart disease of native coronary artery without angina pectoris; Z09 Encounter for follow-up examination after completed treatment for conditions other than malignant neoplasm; Z78.9 Other specified health status; Z99.81 Dependence on supplemental oxygen | CPT/HCPCS: 99496 ==

== ENCOUNTER 2024-12-17 15:44 | Inpatient (IN) | payer MEDICARE, SELFPAY ==
[2024-12-17] VITALS (10 sets, daily range): BP systolic 102–146; BP diastolic 44–77; PULSE 87–106; RESP 12–21; TEMP 36.4–36.8; O2SAT 84–97; BMI 32.5
--- NOTE | 2024-12-17 | ECG_ITS ---
Test Reason : SOB Blood Pressure : */* mmHG Vent. Rate : 116 BPM Atrial Rate : 116 BPM P-R Int : 152 ms QRS Dur : 86 ms QT Int : 330 ms P-R-T Axes : 24 93 121 degrees QTcB Int : 458 ms Sinus tachycardia Rightward axis ST & T wave abnormality, consider lateral ischemia Abnormal ECG When compared with ECG of 30-Nov-2024 00:40, ST more depressed Lateral leads T wave inversion now evident in Anterolateral leads Referred By: Generic ED Physician Electronically Signed By: SMITH TREVIÑO MD
--- NOTE | ~2024-12-17 | XR_ITS ---
CLINICAL HISTORY: SOB --- Additional Notes or Special Instructions: busy @ 1964 2 view chest x-ray Comparison: CR - XR CHEST 1V - 11/30/24 04:36 EDT Findings: Similar dense left apex consolidation with adjacent scarring. Trace bilateral effusions. No pneumothorax. Mildly diffuse interstitial opacities with bronchial wall thickening. Similar prominent/enlarged cardiac silhouette. No acute fracture. IMPRESSION: 1. Chronic changes with trace bilateral effusions. 2. Possible small airways disease. This document has been electronically signed by: Carson Rodrigues MD on 12/17/2024 18:19:16
--- NOTE | ~2024-12-17 | CT_ITS ---
CLINICAL HISTORY: Dyspnea CT angiography chest with contrast. 3D Postprocessing. Comparison: CT/ID/SR - CT CHEST WITH IV CONTRAST - 03/27/24 09:[address]/REG/ID/SR - CT ANGIO CHEST PE PROTOCOL - 02/18/23 23:05 EST Findings: The heart is normal size. RV/LV ratio is normal. The thoracic aorta is normal caliber. Enlarged pulmonary artery. This can be seen with pulmonary artery hypertension. The visualized thyroid and mediastinum are unremarkable. Small loculated left apical fluid along with cicatricial atelectasis of the left upper lobe. Minor atelectasis in the lower lungs. Minimal left pleural effusion. Trace right pleural effusion. Small area of ground-glass opacity left lower lobe image 118:6, 2.6 cm diameter. 8 mm nonobstructing right mid renal stone. Thick-walled gallbladder with pericholecystic fat stranding. Large amount of stool upper abdomen. Minimal pneumobilia within the left liver image 126 and in the common bile duct 162. Slightly increased density in the distal common bile ducts. Possible choledocholithiasis. The intrahepatic bile ducts are mildly dilated. The bones are intact. IMPRESSION: 1. No acute pulmonary embolus. 2. Minimal left and trace right pleural effusions. Scattered atelectasis both lungs. Small area of ground-glass opacity left lower lobe. Consider three-month follow-up. 3. Abnormal gallbladder and biliary system. This includes a small amount of pneumobilia. Consider cholecystitis/cholangitis. There may also be distal choledocholithiasis. 4. Additional nonacute findings as above. This document has been electronically signed by: Cordell Leigh MD on 12/18/2024 03:50:31
[2024-12-17 16:36] LABS: IDNOW Serial# 58CA691E; Influenza B2 Negative (Negative)
[2024-12-17 16:37] LABS: COVID-19 Test Negative (Negative); IDNOW Serial# 55D5AD1C
[2024-12-17 18:53] LABS: MANUAL DIFF FLAG NO
[2024-12-17 18:54] LABS: Hematocrit 30.6 % (42.0-52.0); Hemoglobin 9.1 g/dl (14.0-18.0); Imm Gran Abs Auto 0.12 X10*3/uL (0.00-0.03); Imm Gran Pct Auto 1.5 % (0.0-0.4); Lymphocytes Absolute Auto 0.4 X10*3/uL (1.2-4.9); Mean Corpuscular HGB Conc 29.7 g/dl (31.0-36.0); Mean Corpuscular Hemoglobin 27.7 pg (27.0-33.0); Mean Corpuscular Volume 93.3 fL (80.0-98.0); NRBC Abs Auto 0.000 X10*3/uL (0.0-0.012); NRBC Pct Auto 0.0 /100WBC (0.0-0.2); Platelet Count 185 X10*3/uL (160-400); Red Blood Count 3.28 X10*6/uL (4.60-5.80); White Blood Count 7.8 X10*3/uL (4.8-10.8)
[2024-12-17 19:07] LABS: Anion Gap 14 (12-20); Blood Urea Nitrogen 13 mg/dL (9-16); Calcium 8.4 mg/dL (8.4-10.2); Carbon Dioxide 39 mmol/L (22-29); Chloride 94 mmol/L (96-108); Creatinine Clr Calc Pharmacy 73.7; Estimated Glomerular Filt Rate > 60; Potassium 4.0 mmol/L (3.3-5.1); Sodium 143 mmol/L (135-145)
--- NOTE | 2024-12-17 19:20 | PC.NURSE ---
assumed care of pt, denies pain, given a recliner rather then bed per pt request, chair alarm on.
[2024-12-17] MEDS: Albuterol Sulfate 5 MG, Albuterol/Iprat 2.5/0.5MG 3 ML 3 ML INHALE (20:25)
--- NOTE | 2024-12-17 20:53 | PC.NURSE ---
pt medicated per MAR.
[2024-12-17 21:09] LABS: VBG HCO3 49 mmol/L (22-26); VBG O2 % Saturation 99.0 %
[2024-12-17 21:10] LABS: Venous Blood Gas Refer to POC result
[2024-12-17 21:24] LABS: B Type Natriuretic Peptide 101 pg/mL (<100)
--- NOTE | 2024-12-17 22:49 | ED.SOB ---
HPI - SOB/Dyspnea General Chief Complaint: Dyspnea Stated Complaint: difficult breathing, o2 was 90 4l post neb is 99 Time Seen by Provider: 12/17/24 19:22 Source: patient and EMS Mode of arrival: EMS Limitations: no limitations History of Present Illness ED Provider: HPI Narrative: 74-year-old male with a history of lung cancer status post chemo and radiation, oxygen-dependent COPD, CAD, hypertension, GERD, radiation fibrosis presenting from home, was recently at [facility], he has as mentioned significant issues with his lungs, he has passed out a few times in the past month, states today he was on a toilet urinating and he sort of slumped over, there was no fall no head trauma no neck pain, there was no chest pain, he has shortness of breath at baseline. He states he lives with his and he is safe at home. Related Data Home Medications ?Medication ?Instructions ?Recorded ?Confirmed budesonide-formoterol HFA 160 2 puff inhalation DAILY 03/14/21 12/08/24 mcg-4.5 mcg/actuation aerosol inhaler (Symbicort) calcium 600 mg (as 1 tab PO DAILY 08/04/21 12/08/24 carbonate)-vitamin D3 10 mcg (400 unit) tablet Oxygen Home Use 06/14/22 12/08/24 bisacodyl 5 mg tablet,delayed 10 mg PO DAILY PRN constipation 06/16/24 12/08/24 release (Laxative (bisacodyl)) albuterol sulfate 90 mcg/actuation 2 puff inhalation Q4H PRN 09/24/24 12/08/24 aerosol inhaler (Ventolin HFA) shortness of breath or wheezing aspirin 81 mg tablet 81 mg PO DAILY 11/11/24 12/08/24 lactulose 10 gram/15 mL oral 10 g PO BID PRN Constipation 11/11/24 12/08/24 solution Previous Rx's ?Medication ?Instructions ?Recorded blood-glucose meter (FreeStyle #1 ea 01/23/22 Lite Meter kit) lancets 28 gauge (FreeStyle #100 ea 01/31/24 Lancets) blood sugar diagnostic (FreeStyle #50 ea 03/07/24 Lite Strips) metformin 1,000 mg tablet 1,000 mg PO BID #180 tabs 06/12/24 atorvastatin 80 mg tablet 80 mg PO BEDTIME #90 tabs 07/13/24 omeprazole 20 mg capsule,delayed 20 mg PO DAILY@0630 #30 caps 08/14/24 release glipizide 5 mg tablet 5 mg PO BID #270 tabs 08/31/24 ipratropium 0.5 mg-albuterol 3 mg 3 ml inhalation Q6H PRN wheezing 09/01/24 (2.5 mg base)/3 mL nebulization #180 mL soln escitalopram oxalate 20 mg tablet 20 mg PO DAILY #90 tabs 10/01/24 polyethylene glycol 3350 17 17 g PO DAILY colon prep 1 day 10/08/24 gram/dose oral powder (Miralax) #238 grams lorazepam 1 mg tablet (Ativan) 0.5 mg (1/2 x 1 mg) PO BID PRN 11/21/24 anxiety #30 tabs metoprolol tartrate 25 mg tablet 25 mg PO BID #180 tabs 12/01/24 sennosides 8.6 mg tablet (senna) 17.2 mg (2 x 8.6 mg) PO BID 12/10/24 constipation 90 days #360 tabs Allergies Allergy/AdvReac Type Severity Reaction Status Date / Time fluticasone furoate (From Allergy Intermediate Rash Verified 12/17/24 15:59 Trelegy Ellipta) vilanterol (From Trelegy Allergy Intermediate Rash Verified 12/17/24 15:59 Ellipta) umeclidinium (Incruse Allergy Unknown Hives Verified 12/17/24 15:59 Ellipta) furosemide (From Lasix) AdvReac Intermediate Hallucinati Verified 12/17/24 15:59 ons Review of Systems Constitutional: Constitutional: Reports as per HPI [facility] Past Medical History Medical History Positive colorectal cancer screening using Cologuard test HTN (hypertension) History of adenomatous polyp of colon Acute on chronic respiratory failure with hypoxia and hypercapnia Respiratory failure with hypoxia and hypercapnia Bilateral carotid artery disease CAD (coronary artery disease) Anxiety and depression Anemia Chronic respiratory failure with hypoxia and hypercapnia Radiation fibrosis of lung Dyslipidemia History of pneumonia Bacteremia due to Enterococcus COPD, severe Diabetes mellitus with hyperglycemia, without long-term current use of insulin Urinary incontinence Asthma Lung cancer Skin cancer Surgical History Hx of heart artery stent History of esophagogastroduodenoscopy (EGD) Hx of colonoscopy Family History Family History Father Medical history non-contributory Mother Medical history non-contributory Unknown family medical history Lung collapse Brother No problems noted. Brother No problems noted. Son Substance use disorder Son No problems noted. Daughter No problems noted. Sister No problems noted. Sister No problems noted. Sister No problems noted. Sister No problems noted. Other HTN (hypertension) Social History Social History Household Members: Spouse Household Members Other:: grandson Housing: House Are you a primary palliative care nurse to a significant other at home: No Do you presently have visiting nurse or other home services: No Alcohol intake: never Comment: refusing all fall risk interventions Patient Tobacco Use Status: Former Tobacco user Tobacco use type: Cigarette Smoked in Last 30 Days: No e-Cigarette/Vaping Use: Never Used Use of substances other than those prescribed or required for medical reasons: No Advance Directives: Yes Advance Directives on File: Yes Advance Directives Date on File: 06/08/22 Do you have a plan to hurt others: No Plan service: No Current occupational status: retired Cognitive needs: No Hearing needs: No Vision needs: No Physical Exam Vital Signs: Vital Signs: Last Vital Signs Temp 97.6 F 12/17/24 22:50 Pulse 105 H 12/17/24 22:58 Resp 14 12/17/24 22:50 BP 102/60 12/17/24 22:58 Pulse Ox 94 12/17/24 22:50 O2 Del Method Nasal Cannula 12/17/24 22:50 O2 Flow Rate 3 12/17/24 22:50 Oxygen Flow Rate 3 12/17/24 15:53 BMI result Body Mass Index 32.5 Const: Other: Gen: ?Chronically ill-appearing on oxygen HEENT: PERRLA, EOMI, MMM, Neck: Supple, no LAD CV: RRR, no obvious murmurs appreciated Resp: Some scattered rhonchorous breath sounds consistent with his history but no wheezing, no stridor, no rales Abd: ?Bowel sounds are present, no tenderness no rebound no rigidity MSK: FROM, has been ambulatory Skin: Some chronic changes of the lower extremities Neuro: ?Alert and oriented x3, moving upper and lower extremities symmetrically, no obvious facial asymmetry noted Course Reevaluation(s) Time: 22:55 Medications Administered Discontinued Medications Generic Name Dose Route Start Last Admin Trade Name Breana PRN Reason Stop Dose Admin Albuterol Sulfate 5 mg/ 0 mg 12/17/24 20:24 12/17/24 20:25 Albuterol/Ipratropium 3 ml INHALE 12/17/24 20:25 1 each ONCE ONE Administration Prednisone 50 mg 12/17/24 19:59 12/17/24 20:51 Prednisone 10 Mg Tablet PO 12/17/24 20:00 50 mg ONCE ONE Administration Medical Decision Making Medical Decision Making [facility] Narrative: 11:01 PM 12/17/2024 (Dr. Angel Delgado): At the time of my evaluation another provider started nebulizer protocol with the patient and started him on oral steroids, by the time I evaluated the patient he was breathing comfortably he was not in respiratory distress, his chest x-ray without any pneumothorax, obvious flash pulmonary edema, or consolidations, he has significant medical history and he is oxygen dependent, has had history of hypoxic and hypercapnic respiratory failure. Sounds like patient was on a toilet and as he was performing Valsalva to urinate he passed out, he states it has happened to him in the past he did not have any prodromal symptoms of chest pain or any dyspnea outside of the usual to suspect PE, on initial presentation he was somewhat tachycardic, the pulse has much improved, I will make sure he is ambulatory and determine whether he is able to be discharged and I spoke to him about whether he needs to go back to the rehab facility. 11:26 PM 12/17/2024 (Dr. Angel Delgado): Patient dropped to 82% while ambulating, we will add on CT angio and admit Differential Diagnosis Differential Diagnoses: The differential diagnosis associated with the presentation includes (ACS, PE, CHF, COPD, pneumonia) Admission/Observation Consideration of admission/observation: Escalation of care including admission/observation considered Lab Data [facility] Lab Attestation statement: I reviewed the patient's lab results. 12/17/24 18:45 12/17/24 18:45 Labs: Lab Results 12/17/24 12/17/24 12/17/24 Range/Units 16:06 18:45 20:59 WBC 7.8 (4.8-10.8) X10*3/uL RBC 3.28 L (4.60-5.80) X10*6/uL Hgb 9.1 L (14.0-18.0) g/dl Hct 30.6 L (42.0-52.0) % MCV 93.3 (80.0-98.0) fL MCH 27.7 (27.0-33.0) pg MCHC 29.7 L (31.0-36.0) g/dl RDW 14.6 (11.0-16.0) % Plt Count 185 D (160-400) X10*3/uL MPV 9.9 (9.4-12.4) fL Immature Gran % (Auto) 1.5 H (0.0-0.4) % Neut % (Auto) 86.6 H (45-73) % Lymph % (Auto) 4.5 L (20-40) % [place] % (Auto) 7.2 (2-11) % Eos % (Auto) 0.1 (0-4) % Baso % (Auto) 0.1 (0-2) % Lymph # (Auto) 0.4 L (1.2-4.9) X10*3/uL [place] # (Auto) 0.6 (0.1-1.2) X10*3/uL Eos # (Auto) 0.0 (0.0-0.4) X10*3/uL Baso # (Auto) 0.0 (0.0-0.2) X10*3/uL Abs Immat Gran (auto) 0.12 H (0.00-0.03) X10*3/uL Absolute Neuts (auto) 6.7 (2.0-8.3) x10*3/uL Absolute Nucleated RBC 0.000 (0.0-0.012) X10*3/uL Nucleated RBC % (auto) 0.0 (0.0-0.2) /100WBC VBG pH (7.32-7.43) VBG pCO2 mmHg VBG pO2 mmHg VBG HCO3 (22-26) mmol/L VBG O2 Saturation % VBG Base Excess mmol/L Sodium 143 (135-145) mmol/L Potassium 4.0 (3.3-5.1) mmol/L Chloride 94 L (96-108) mmol/L Carbon Dioxide 39 H (22-29) mmol/L Anion Gap 14 (12-20) BUN 13 (9-16) mg/dL Creatinine 0.93 (0.5-1.4) mg/dL Estim Creat Clear Calc 73.7 Estimated GFR > 60 Random Glucose 286 H (60-115) mg/dL Calcium 8.4 D (8.4-10.2) mg/dL B-Natriuretic Peptide 101 H (<100) pg/mL COVID-19 (LESTER) Negative (Negative) COVID-19 Clin Com See Note Influenza Type A (MATHEW) Negative (Negative) Influenza Type B (MATHEW) Negative (Negative) Influenza A & B Note See Note 12/17/24 Range/Units 21:02 WBC (4.8-10.8) X10*3/uL RBC (4.60-5.80) X10*6/uL Hgb (14.0-18.0) g/dl Hct (42.0-52.0) % MCV (80.0-98.0) fL MCH (27.0-33.0) pg MCHC (31.0-36.0) g/dl RDW (11.0-16.0) % Plt Count (160-400) X10*3/uL MPV (9.4-12.4) fL Immature Gran % (Auto) (0.0-0.4) % Neut % (Auto) (45-73) % Lymph % (Auto) (20-40) % [place] % (Auto) (2-11) % Eos % (Auto) (0-4) % Baso % (Auto) (0-2) % Lymph # (Auto) (1.2-4.9) X10*3/uL [place] # (Auto) (0.1-1.2) X10*3/uL Eos # (Auto) (0.0-0.4) X10*3/uL Baso # (Auto) (0.0-0.2) X10*3/uL Abs Immat Gran (auto) (0.00-0.03) X10*3/uL Absolute Neuts (auto) (2.0-8.3) x10*3/uL Absolute Nucleated RBC (0.0-0.012) X10*3/uL Nucleated RBC % (auto) (0.0-0.2) /100WBC VBG pH 7.54 H (7.32-7.43) VBG pCO2 56 mmHg VBG pO2 75 mmHg VBG HCO3 49 H (22-26) mmol/L VBG O2 Saturation 99.0 % VBG Base Excess 23.4 mmol/L Sodium (135-145) mmol/L Potassium (3.3-5.1) mmol/L Chloride (96-108) mmol/L Carbon Dioxide (22-29) mmol/L Anion Gap (12-20) BUN (9-16) mg/dL Creatinine (0.5-1.4) mg/dL Estim Creat Clear Calc Estimated GFR Random Glucose (60-115) mg/dL Calcium (8.4-10.2) mg/dL B-Natriuretic Peptide (<100) pg/mL COVID-19 (LESTER) (Negative) COVID-19 Clin Com Influenza Type A (MATHEW) (Negative) Influenza Type B (MATHEW) (Negative) Influenza A & B Note ABG Data Attestation ABG: I personally reviewed and interpreted this ABG as follows: (No significant respiratory acidosis, no retention) Independent Interpretation I performed an independent interpretation of an: EKG (One hundred sixteen sinus tachycardia) and Plain X-Ray (Chronic fibrotic changes similar to prior x-rays) Radiology Impression Discussion of test interpretation with radiology: I have reviewed the radiologist's reading. ( IMPRESSION: 1. Chronic changes with trace bilateral effusions. 2. Possible small airways disease.) External Record Review External record reviewed: Prior outpatient radiology Tests considered The following testing was considered but not selected: CT chest Critical Care Time Critical Care Time Critical Care Time: Yes Total Critical Care Time: 45 Attestation: Time is exclusive of separately billable procedures. Time includes: direct patient care, patient reassessment, coordination of patient care, interpretation of data (laboratory data, pulse oximetry, arterial blood gases and chest xrays), review of patient's medical records, medical consultation and documentation of patient care. Procedures excluded from critical care time: central intravenous line placement and electrocardiography. Discharge Plan Discharge Clinical Impression: COPD exacerbation Prescriptions: No Action (DME) blood-glucose meter [FreeStyle Lite Meter] Kit See Rx Instructions .Route Qty: 1 0RF Rx Instructions: As directed (DME) lancets [FreeStyle Lancets] 28 gauge misc See Rx Instructions .Route Qty: 100 1RF Rx Instructions: Test blood sugar twice (DME) FreeStyle Lite Strips Strip See Rx Instructions .Route Qty: 50 7RF Rx Instructions: check fasting glucose once a day AC metformin 1,000 mg tablet 1,000 mg PO BID Qty: 180 1RF atorvastatin 80 mg tablet 80 mg PO BEDTIME Qty: 90 1RF omeprazole 20 mg capsule,delayed release(DR/EC) 20 mg PO DAILY@0630 Qty: 30 1RF glipizide 5 mg tablet 5 mg PO BID Qty: 270 4RF ipratropium-albuterol 0.5 mg-3 mg(2.5 mg base)/3 mL solution for nebulization 3 ml inhalation Q6H PRN (Reason: wheezing) Qty: 180 2RF escitalopram oxalate 20 mg tablet 20 mg PO DAILY Qty: 90 3RF lorazepam [Ativan] 1 mg tablet 0.5 mg PO BID PRN (Reason: anxiety) Qty: 30 0RF Rx Instructions: Patient may request partial fill metoprolol tartrate 25 mg tablet 25 mg PO BID Qty: 180 1RF budesonide-formoterol [Symbicort] 160-4.5 mcg/actuation Hfa Aerosol Inhaler 2 puff INHALATION DAILY calcium carbonate-vitamin D3 600 mg-10 mcg (400 unit) tablet 1 tab PO DAILY bisacodyl [Laxative (bisacodyl)] 5 mg tablet,delayed release (DR/EC) 10 mg PO DAILY PRN (Reason: constipation) albuterol sulfate [Ventolin HFA] 90 mcg/actuation HFA aerosol inhaler 2 puff inhalation Q4H PRN (Reason: shortness of breath or wheezing) aspirin 81 mg Tablet 81 mg PO DAILY lactulose 10 gram/15 mL solution 10 g PO BID PRN (Reason: Constipation) (DME) Oxygen Home Use Kit See Rx Instructions .Route Rx Instructions: As directed polyethylene glycol 3350 [Miralax] 17 gram/dose powder 17 g PO DAILY 1 Days Qty: 238 0RF Rx Instructions: Mix Miralax with 64 oz(8 cups) of Crystal light. Take 2 tablets of Dulcolax qt 12 pm. Wait to have your 1st bowel movement, then begin drinking Miralax. Drink a glass of Miralax every 10-15 minutes until you are finished. You will drink at least another 4 cups of clear liquid of your choice over the next 2 hours. Please drink as many clear liquids as possible sennosides [senna] 8.6 mg tablet 17.2 mg PO BID 90 Days Qty: 360 1RF Print Language: Ukrainian
--- NOTE | 2024-12-17 22:53 | ED.GENADULT ---
HPI - General Adult General Chief complaint: Dyspnea Stated complaint: difficult breathing, o2 was 90 4l post neb is 99 Time Seen by Provider: 12/17/24 19:22 Source: patient Mode of arrival: ambulatory Limitations: no limitations History of Present Illness ED Provider: Dr. Hui HPI narrative: 74-year-old male history of cirrhosis, anemia, GERD, bilateral carotid artery disease, CAD COPD chronic respiratory failure on 3 L nasal cannula presented hospital today for increased shortness of breath. Patient stated this has been going on for a couple of days now. Denies any chest pain. Patient denies any recent fever or coughing. He states he just feels shortness of breath more than his baseline. Related Data Home Medications ?Medication ?Instructions ?Recorded ?Confirmed budesonide-formoterol HFA 160 2 puff inhalation DAILY PRN 03/14/21 12/18/24 mcg-4.5 mcg/actuation aerosol Shortness Of Breath Or Wheezing inhaler (Symbicort) calcium 600 mg (as 1 tab PO DAILY 08/04/21 12/18/24 carbonate)-vitamin D3 10 mcg (400 unit) tablet Oxygen Home Use 06/14/22 12/08/24 albuterol sulfate 90 mcg/actuation 2 puff inhalation Q4H PRN 09/24/24 12/18/24 aerosol inhaler (Ventolin HFA) shortness of breath or wheezing aspirin 81 mg tablet 81 mg PO DAILY 11/11/24 12/18/24 lactulose 10 gram/15 mL oral 10 g PO BID PRN Constipation 11/11/24 12/18/24 solution azithromycin 500 mg tablet 500 mg PO MOWEFR 12/18/24 12/18/24 sennosides 8.6 mg tablet (senna) 17.2 mg PO BID PRN constipation 12/18/24 12/18/24 Previous Rx's ?Medication ?Instructions ?Recorded blood-glucose meter (FreeStyle #1 ea 01/23/22 Lite Meter kit) lancets 28 gauge (FreeStyle #100 ea 01/31/24 Lancets) blood sugar diagnostic (FreeStyle #50 ea 03/07/24 Lite Strips) metformin 1,000 mg tablet 1,000 mg PO BID #180 tabs 06/12/24 atorvastatin 80 mg tablet 80 mg PO BEDTIME #90 tabs 07/13/24 omeprazole 20 mg capsule,delayed 20 mg PO DAILY@0630 #30 caps 08/14/24 release glipizide 5 mg tablet 5 mg PO BID #270 tabs 08/31/24 ipratropium 0.5 mg-albuterol 3 mg 3 ml inhalation Q6H PRN wheezing 09/01/24 (2.5 mg base)/3 mL nebulization #180 mL soln escitalopram oxalate 20 mg tablet 20 mg PO DAILY #90 tabs 10/01/24 lorazepam 1 mg tablet (Ativan) 0.5 mg (1/2 x 1 mg) PO BID PRN 11/21/24 anxiety #30 tabs metoprolol tartrate 25 mg tablet 25 mg PO BID #180 tabs 12/01/24 Allergies Allergy/AdvReac Type Severity Reaction Status Date / Time fluticasone furoate (From Allergy Intermediate Rash Verified 12/17/24 15:59 Trelegy Ellipta) vilanterol (From Trelegy Allergy Intermediate Rash Verified 12/17/24 15:59 Ellipta) umeclidinium (Incruse Allergy Unknown Hives Verified 12/17/24 15:59 Ellipta) furosemide (From Lasix) AdvReac Intermediate Hallucinati Verified 12/17/24 15:59 ons Review of Systems Review of Systems: Pertinent review of systems as mentioned in HPI. All other system otherwise negative. [facility] Past Medical History [facility] Narrative: Medical history as mentioned in HPI Medical History Positive colorectal cancer screening using Cologuard test HTN (hypertension) History of adenomatous polyp of colon Acute on chronic respiratory failure with hypoxia and hypercapnia Respiratory failure with hypoxia and hypercapnia Bilateral carotid artery disease CAD (coronary artery disease) Anxiety and depression Anemia Chronic respiratory failure with hypoxia and hypercapnia Radiation fibrosis of lung Dyslipidemia History of pneumonia Bacteremia due to Enterococcus COPD, severe Diabetes mellitus with hyperglycemia, without long-term current use of insulin Urinary incontinence Asthma Lung cancer Skin cancer Surgical History Hx of heart artery stent History of esophagogastroduodenoscopy (EGD) Hx of colonoscopy Family History Family History Father Medical history non-contributory Mother Medical history non-contributory Unknown family medical history Lung collapse Brother No problems noted. Brother No problems noted. Son Substance use disorder Son No problems noted. Daughter No problems noted. Sister No problems noted. Sister No problems noted. Sister No problems noted. Sister No problems noted. Other HTN (hypertension) Social History Social History Household Members: Spouse Household Members Other:: grandson Housing: House Are you a primary youth care specialist to a significant other at home: No Do you presently have visiting nurse or other home services: No Alcohol intake: never Comment: refusing all fall risk interventions Patient Tobacco Use Status: Former Tobacco user Tobacco use type: Cigarette e-Cigarette/Vaping Use: Never Used Advance Directives Date on File: 06/08/22 service: No Current occupational status: retired Cognitive needs: No Hearing needs: No Vision needs: No Physical Exam ED Exam Exam: General: Appears chronically ill Head: Normacephalic, atraumatic ENT: oral mucosa moist, neck supple, no tracheal deviation Cardiovascular: regular rate, regular rhythm, no murmurs, rubbing, gallops Respiratory: Diminished lung sounds bilaterally Gastrointestinal: Soft, non distended, non tender, non guarding Extremities: Trace pitting edema bilaterally Neurological: Awake and alert, no facial droop noted Skin: Warm and dry Psychiatric: Appropriate mood and thoughts Vital Signs: Vital Signs - 24 hr 12/17/24 15:53 12/17/24 17:20 12/17/24 17:30 Temperature 98.3 F Pulse Rate 105 H Respiratory Rate 17 Blood Pressure Pulse Oximetry 97 86 L 91 L Oxygen Delivery Method Nasal Cannula Nasal Cannula Nasal Cannula Oxygen Flow Rate 3 5 12/17/24 18:47 12/17/24 19:33 12/17/24 20:26 Temperature 97.7 F 97.9 F Pulse Rate 99 96 87 Respiratory Rate 15 15 21 H Blood Pressure 103/48 L 110/44 L Pulse Oximetry 97 96 Oxygen Delivery Method Room Air Nasal Cannula Oxygen Flow Rate 4 12/17/24 20:49 12/17/24 22:50 Temperature 98.3 F 97.6 F Pulse Rate 94 94 Respiratory Rate 12 14 Blood Pressure 110/58 L 119/66 Pulse Oximetry 95 94 Oxygen Delivery Method Nasal Cannula Nasal Cannula Oxygen Flow Rate 3 3 BMI result Body Mass Index 32.5 Medications Administered Generic Name Dose Route Start Last Admin Trade Name Freq PRN Reason Stop Dose Admin Albuterol/Ipratropium 3 ml 12/17/24 23:29 12/18/24 22:02 Albuterol/Iprat 2.5/0.5mg 3 Ml Ampul.Neb INHALE 3 ml Q4H PRN Administration Shortness of Breath/Wheezing Atorvastatin Calcium 80 mg 12/18/24 21:00 12/18/24 20:05 Atorvastatin Calcium 80 Mg Tablet PO 80 mg BEDTIME DUTCH Administration Ceftriaxone Sodium 1 gm 12/18/24 04:45 12/18/24 05:41 Ceftriaxone Sodium 1 Gm Vial IVPUSH 1 gm 0600 DUTCH Administration Enoxaparin Sodium 40 mg 12/18/24 09:00 12/18/24 07:44 Enoxaparin Sodium 40 Mg/0.4 Ml Syringe SUBCUT Not Given Q24H DUTCH Glipizide 5 mg 12/18/24 16:30 12/18/24 17:01 Glipizide 5 Mg Tablet PO 5 mg BIDAC DUTCH Administration Metronidazole 500 mg in 100 mls @ 100 mls/hr 12/18/24 06:00 12/19/24 00:25 Flagyl IV Infused Q8H DUTCH Infusion Insulin Human Lispro 0 unit 12/18/24 07:30 12/18/24 20:17 Insulin Lispro 100 Unit/Ml 3 Ml Vial SUBCUT 8 unit QIDACHS DUTCH Administration Protocol Lorazepam 0.5 mg 12/18/24 13:24 12/18/24 21:41 Lorazepam 0.5 Mg Tablet PO 0.5 mg BID PRN Administration Anxiety Metformin HCl 1,000 mg 12/18/24 17:00 12/18/24 17:01 Metformin Hcl 1,000 Mg Tablet PO 1,000 mg On Hold: 12/18/24 17:05 BIDWM DUTCH Administration Methylprednisolone Sodium Succinate 40 mg 12/18/24 06:00 12/18/24 21:41 Methylprednisolone Sod Succ 40 Mg/Ml Vial IVPUSH 40 mg Q8H DUTCH Administration Metoprolol Tartrate 25 mg 12/18/24 21:00 12/18/24 20:05 Metoprolol Tartrate 25 Mg Tablet PO 25 mg BID DUTCH Administration Protocol Sodium Chloride 3 ml 12/18/24 00:00 12/18/24 21:44 0.9 % Sodium Chloride Flush 3 Ml Syringe IVFLUSH 3 ml QSHIFT DUTCH Administration Discontinued Medications Generic Name Dose Route Start Last Admin Trade Name Breana PRN Reason Stop Dose Admin Albuterol/Ipratropium 3 ml 12/18/24 00:00 12/18/24 11:46 Albuterol/Iprat 2.5/0.5mg 3 Ml Ampul.Neb INHALE 3 ml Q6H DUTCH Administration Albuterol Sulfate 5 mg/ 0 mg 12/17/24 20:24 12/17/24 20:25 Albuterol/Ipratropium 3 ml INHALE 12/17/24 20:25 1 each ONCE ONE Administration Insulin Human Lispro 5 unit 12/18/24 17:16 12/18/24 17:32 Insulin Lispro 100 Unit/Ml 3 Ml Vial SUBCUT 12/18/24 17:17 5 unit ONCE ONE Administration Insulin Human Regular 10 unit 12/18/24 08:39 12/18/24 09:13 Insulin Regular, Human 100 Unit/Ml 10 Ml Vial IVPUSH 12/18/24 08:40 10 unit ONCE ONE Administration Iohexol 75 ml 12/18/24 03:13 12/18/24 03:14 Iohexol 350 Mg/Ml 100 Ml Infus..Btl IV 12/18/24 03:14 75 ml ONCE ONE Administration Prednisone 50 mg 12/17/24 19:59 12/17/24 20:51 Prednisone 10 Mg Tablet PO 12/17/24 20:00 50 mg ONCE ONE Administration Medical Decision Making Medical Decision Making [facility] Narrative: This is a 74-year-old male history of COPD, CAD, GERD, anemia presented hospital today for evaluation of increased shortness of breath. The patient is not moving much air on physical exam. I suspect patient likely has COPD exacerbation. We will obtain basic lab work and chest x-ray for the patient's VBG will be added on to his lab work as well. Patient's lab work show slight anemia at 9.1, no leukocytosis, patient VBG did not show any signs of respiratory acidosis. Patient's chemistry is unremarkable. No sign of STEMI the patient's EKG. Patient has no active chest pain. No sign of a pneumothorax or consolidation for pneumonia on chest x-ray. ED bronchodilator protocol initiated. A dose of prednisone will be given to patient. Patient will be signed out to oncoming provider pending reassessment. Differential Diagnosis Differential Diagnoses: The differential diagnosis associated with the presentation includes COPD, CHF, pneumonia, pneumothorax Lab Data MDM Lab Attestation statement: I reviewed the patient's lab results. 12/18/24 05:34 12/18/24 05:34 Labs: Lab Results 12/17/24 12/17/24 12/17/24 Range/Units 16:06 18:45 20:59 WBC 7.8 (4.8-10.8) X10*3/uL RBC 3.28 L (4.60-5.80) X10*6/uL Hgb 9.1 L (14.0-18.0) g/dl Hct 30.6 L (42.0-52.0) % MCV 93.3 (80.0-98.0) fL MCH 27.7 (27.0-33.0) pg MCHC 29.7 L (31.0-36.0) g/dl RDW 14.6 (11.0-16.0) % Plt Count 185 D (160-400) X10*3/uL MPV 9.9 (9.4-12.4) fL Immature Gran % (Auto) 1.5 H (0.0-0.4) % Neut % (Auto) 86.6 H (45-73) % Lymph % (Auto) 4.5 L (20-40) % Nance % (Auto) 7.2 (2-11) % Eos % (Auto) 0.1 (0-4) % Baso % (Auto) 0.1 (0-2) % Lymph # (Auto) 0.4 L (1.2-4.9) X10*3/uL Nance # (Auto) 0.6 (0.1-1.2) X10*3/uL Eos # (Auto) 0.0 (0.0-0.4) X10*3/uL Baso # (Auto) 0.0 (0.0-0.2) X10*3/uL Abs Immat Gran (auto) 0.12 H (0.00-0.03) X10*3/uL Absolute Neuts (auto) 6.7 (2.0-8.3) x10*3/uL Absolute Nucleated RBC 0.000 (0.0-0.012) X10*3/uL Nucleated RBC % (auto) 0.0 (0.0-0.2) /100WBC VBG pH (7.32-7.43) VBG pCO2 mmHg VBG pO2 mmHg VBG HCO3 (22-26) mmol/L VBG O2 Saturation % VBG Base Excess mmol/L Sodium 143 (135-145) mmol/L Potassium 4.0 (3.3-5.1) mmol/L Chloride 94 L (96-108) mmol/L Carbon Dioxide 39 H (22-29) mmol/L Anion Gap 14 (12-20) BUN 13 (9-16) mg/dL Creatinine 0.93 (0.5-1.4) mg/dL Estim Creat Clear Calc 73.7 Estimated GFR > 60 Random Glucose 286 H (60-115) mg/dL Calcium 8.4 D (8.4-10.2) mg/dL Total Bilirubin 0.3 (0.0-1.0) mg/dL Direct Bilirubin 0.1 (0.0-0.5) mg/dL AST 17 (5-37) U/L ALT 9 (0-40) U/L Alkaline Phosphatase 80 (39-117) U/L B-Natriuretic Peptide 101 H (<100) pg/mL Total Protein 6.3 L (6.5-8.0) g/dL Albumin 3.4 L (3.5-5.0) g/dL Lipase 13 (8-78) U/L COVID-19 (LESTER) Negative (Negative) COVID-19 Clin Com See Note Influenza Type A (MATHEW) Negative (Negative) Influenza Type B (MATHEW) Negative (Negative) Influenza A & B Note See Note 12/17/24 Range/Units 21:02 WBC (4.8-10.8) X10*3/uL RBC (4.60-5.80) X10*6/uL Hgb (14.0-18.0) g/dl Hct (42.0-52.0) % MCV (80.0-98.0) fL MCH (27.0-33.0) pg MCHC (31.0-36.0) g/dl RDW (11.0-16.0) % Plt Count (160-400) X10*3/uL MPV (9.4-12.4) fL Immature Gran % (Auto) (0.0-0.4) % Neut % (Auto) (45-73) % Lymph % (Auto) (20-40) % Nance % (Auto) (2-11) % Eos % (Auto) (0-4) % Baso % (Auto) (0-2) % Lymph # (Auto) (1.2-4.9) X10*3/uL Nance # (Auto) (0.1-1.2) X10*3/uL Eos # (Auto) (0.0-0.4) X10*3/uL Baso # (Auto) (0.0-0.2) X10*3/uL Abs Immat Gran (auto) (0.00-0.03) X10*3/uL Absolute Neuts (auto) (2.0-8.3) x10*3/uL Absolute Nucleated RBC (0.0-0.012) X10*3/uL Nucleated RBC % (auto) (0.0-0.2) /100WBC VBG pH 7.54 H (7.32-7.43) VBG pCO2 56 mmHg VBG pO2 75 mmHg VBG HCO3 49 H (22-26) mmol/L VBG O2 Saturation 99.0 % VBG Base Excess 23.4 mmol/L Sodium (135-145) mmol/L Potassium (3.3-5.1) mmol/L Chloride (96-108) mmol/L Carbon Dioxide (22-29) mmol/L Anion Gap (12-20) BUN (9-16) mg/dL Creatinine (0.5-1.4) mg/dL Estim Creat Clear Calc Estimated GFR Random Glucose (60-115) mg/dL Calcium (8.4-10.2) mg/dL Total Bilirubin (0.0-1.0) mg/dL Direct Bilirubin (0.0-0.5) mg/dL AST (5-37) U/L ALT (0-40) U/L Alkaline Phosphatase (39-117) U/L B-Natriuretic Peptide (<100) pg/mL Total Protein (6.5-8.0) g/dL Albumin (3.5-5.0) g/dL Lipase (8-78) U/L COVID-19 (LESTER) (Negative) COVID-19 Clin Com Influenza Type A (MATHEW) (Negative) Influenza Type B (MATHEW) (Negative) Influenza A & B Note Independent Interpretation I performed an independent interpretation of an: EKG and Plain X-Ray Radiology Impression Discussion of test interpretation with radiology: I have reviewed the radiologist's reading. Discharge Plan Discharge Clinical Impression: COPD exacerbation Patient Disposition: Admitted As Inpatient Interventions: Admission Worksheet (ED) Last Done: 12/18/24 17:38 Discharge Date/Time: 12/18/24 18:45
--- NOTE | 2024-12-17 23:07 | PC.NURSE ---
pt taken for ambulation trial with his 3L at baseline, pt 02 dropped down to 80-82 while ambulating. Provider aware
--- NOTE | 2024-12-17 23:33 | PM.IMHP ---
History of Present Illness Date of Service: 12/17/24 Chief Complaint: sob 74-year-old male with a past medical history of HTN, HLD, CAD, liver cirrhosis, obesity, COPD on 3 L of home oxygen, anemia, anxiety, depression, chronic lung disease; presented to the hospital today with a chief complaint of shortness of breath. Patient reports over the past couple days he has been having shortness of breath. Denies any cough. Denies any sputum production. Also mentioned that while he was on the commode he slumped over and probably lost consciousness. Denies any fall or injury. Denies any chest pain or palpitations. Review of all other systems is negative except mentioned above ER course: Per ER team, patient on presentation noted to be short of breath, wheezing; concern for possible mild COPD exacerbation; given prednisone; when patient was walked with his oxygen patient desaturated to 80%; EKG nonischemic. COUNTS INCLUDE 234 BEDS AT THE [facility] Medical History Positive colorectal cancer screening using Cologuard test HTN (hypertension) History of adenomatous polyp of colon Acute on chronic respiratory failure with hypoxia and hypercapnia Respiratory failure with hypoxia and hypercapnia Bilateral carotid artery disease CAD (coronary artery disease) Anxiety and depression Anemia Chronic respiratory failure with hypoxia and hypercapnia Radiation fibrosis of lung Dyslipidemia History of pneumonia Bacteremia due to Enterococcus COPD, severe Diabetes mellitus with hyperglycemia, without long-term current use of insulin Urinary incontinence Asthma Lung cancer Skin cancer Family History Father Medical history non-contributory Mother Medical history non-contributory Unknown family medical history Lung collapse Brother No problems noted. Brother No problems noted. Son Substance use disorder Son No problems noted. Daughter No problems noted. Sister No problems noted. Sister No problems noted. Sister No problems noted. Sister No problems noted. Other HTN (hypertension) Surgical History Hx of heart artery stent History of esophagogastroduodenoscopy (EGD) Hx of colonoscopy Social History Household Members: Spouse Household Members Other:: grandson Housing: House Are you a primary customer care consultant to a significant other at home: No Do you presently have visiting nurse or other home services: No Alcohol intake: never Comment: refusing all fall risk interventions Patient Tobacco Use Status: Former Tobacco user Tobacco use type: Cigarette Smoked in Last 30 Days: No e-Cigarette/Vaping Use: Never Used Use of substances other than those prescribed or required for medical reasons: No Advance Directives: Yes Advance Directives on File: Yes Advance Directives Date on File: 06/08/22 Do you have a plan to hurt others: No Plan Nutrition Risks: No Nutritional Risk service: No Current occupational status: retired Cognitive needs: No Hearing needs: No Vision needs: No Meds Allergies Allergy/AdvReac Type Severity Reaction Status Date / Time fluticasone furoate (From Allergy Intermediate Rash Verified 12/17/24 15:59 Trelegy Ellipta) vilanterol (From Trelegy Allergy Intermediate Rash Verified 12/17/24 15:59 Ellipta) umeclidinium (Incruse Allergy Unknown Hives Verified 12/17/24 15:59 Ellipta) furosemide (From Lasix) AdvReac Intermediate Hallucinati Verified 12/17/24 15:59 ons Home Medications ?Medication ?Instructions ?Recorded ?Confirmed ?Last Taken ?Type budesonide-formoterol HFA 160 2 puff inhalation DAILY 03/14/21 12/08/24 11/29/24 History mcg-4.5 mcg/actuation aerosol inhaler (Symbicort) calcium 600 mg (as 1 tab PO DAILY 08/04/21 12/08/24 11/29/24 History carbonate)-vitamin D3 10 mcg (400 unit) tablet Oxygen Home Use 06/14/22 12/08/24 Unknown History bisacodyl 5 mg tablet,delayed 10 mg PO DAILY PRN constipation 06/16/24 12/08/24 09/23/24 21:00 History release (Laxative (bisacodyl)) albuterol sulfate 90 mcg/actuation 2 puff inhalation Q4H PRN 09/24/24 12/08/24 09/23/24 21:00 History aerosol inhaler (Ventolin HFA) shortness of breath or wheezing aspirin 81 mg tablet 81 mg PO DAILY 11/11/24 12/08/24 11/29/24 History lactulose 10 gram/15 mL oral 10 g PO BID PRN Constipation 11/11/24 12/08/24 Unknown History solution Physical Exam Vital Signs and Narrative: Vital Signs: Last Vital Signs Temp 97.6 F 12/17/24 22:50 Pulse 105 H 12/17/24 22:58 Resp 14 12/17/24 22:50 BP 102/60 12/17/24 22:58 Pulse Ox 94 12/17/24 22:50 O2 Del Method Nasal Cannula 12/17/24 22:50 O2 Flow Rate 3 12/17/24 22:50 Oxygen Flow Rate 3 12/17/24 15:53 BMI result Body Mass Index 32.5 Gen: Appears be in no acute distress HEENT: NCAT, Moist mucosa. Pulmonary: Occasional wheezing present CVS: Normal S1-S2 Abdomen: BS+, Soft, Nontender Extremities: Warm well perfused Neuro: Alert and awake. Results Labs 12/17/24 18:45 12/17/24 18:45 Labs: Laboratory Results - last 24 hr 12/17/24 12/17/24 12/17/24 16:06 18:45 20:59 MCV 93.3 MCH 27.7 MCHC 29.7 L RDW 14.6 Plt Count 185 D MPV 9.9 Immature Gran % (Auto) 1.5 H Neut % (Auto) 86.6 H Lymph % (Auto) 4.5 L [place] % (Auto) 7.2 Eos % (Auto) 0.1 Baso % (Auto) 0.1 Lymph # (Auto) 0.4 L [place] # (Auto) 0.6 Eos # (Auto) 0.0 Baso # (Auto) 0.0 Abs Immat Gran (auto) 0.12 H Absolute Neuts (auto) 6.7 Absolute Nucleated RBC 0.000 Nucleated RBC % (auto) 0.0 VBG pH VBG pCO2 VBG pO2 VBG HCO3 VBG O2 Saturation VBG Base Excess Anion Gap 14 Estim Creat Clear Calc 73.7 Estimated GFR > 60 Random Glucose 286 H Calcium 8.4 D B-Natriuretic Peptide 101 H COVID-19 (LESTER) Negative COVID-19 Clin Com See Note Influenza Type A (MATHEW) Negative Influenza Type B (MATHEW) Negative Influenza A & B Note See Note 12/17/24 21:02 MCV MCH MCHC RDW Plt Count MPV Immature Gran % (Auto) Neut % (Auto) Lymph % (Auto) [place] % (Auto) Eos % (Auto) Baso % (Auto) Lymph # (Auto) [place] # (Auto) Eos # (Auto) Baso # (Auto) Abs Immat Gran (auto) Absolute Neuts (auto) Absolute Nucleated RBC Nucleated RBC % (auto) VBG pH 7.54 H VBG pCO2 56 VBG pO2 75 VBG HCO3 49 H VBG O2 Saturation 99.0 VBG Base Excess 23.4 Anion Gap Estim Creat Clear Calc Estimated GFR Random Glucose Calcium B-Natriuretic Peptide COVID-19 (LESTER) COVID-19 Clin Com Influenza Type A (MATHEW) Influenza Type B (MATHEW) Influenza A & B Note Assessment and Plan (1) COPD exacerbation: Status: Acute Plan 74-year-old male with a past medical history of HTN, HLD, CAD, liver cirrhosis, obesity, COPD on 3 L of home oxygen, anemia, anxiety, depression, chronic lung disease; presented to the hospital today with a chief complaint of shortness of breath. Admitted for following Acute COPD exacerbation: Acute hypoxic respiratory failure: Patient on baseline home oxygen of 3 L at home. Patient was mildly wheezing on presentation. Continue nebulization standing and p.r.n. Continue Solu-Medrol Azithromycin Trending pulse oximetry when ready for discharge CT chest showed no evidence of PE. But noted to have left lower lobe GGO-recommended follow-up CT chest in 3 months. ? Cholangitis/cholecystitis: CT scan showed abnormal gallbladder with pneumobilia-suspected choledocholithiasis/cholecystitis/cholangitis Will cover with ceftriaxone and Flagyl General surgery and GI consult LFTs pending Syncope: Patient reports having couple episodes of syncope-appears vasovagal versus seizure duration. 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
[2024-12-18] VITALS (9 sets, daily range): BP systolic 106–132; BP diastolic 56–64; PULSE 69–105; RESP 14–22; TEMP 36–36.9; O2SAT 91–97
--- NOTE | 2024-12-18 01:04 | MHC.EDTECH ---
This tech took over care of pt at 2300, rounds and vitals completed, pt urinated 400MLS of yellow urine in urinal, patient is in recliner per request, pt is refusing to take clothes off, pt did agree to put has a hospital gown on over his shirt pt stated its to cold I offered pt multiple warm blankets pt still refused, warm blankets given for comfort. Belongings list completed,copy placed in chart,call buck in reach
--- NOTE | 2024-12-18 01:19 | MHC.EDTECH ---
Patient given a chicken salad sandwich and a diabetic pudding, per request
[2024-12-18] MEDS: iohexoL 350 MG/ML 100 ML INFUS..BTL 75 ML IV (03:14)
[2024-12-18 04:17] LABS: Alanine Aminotransferase 9 U/L (0-40); Albumin Level 3.4 g/dL (3.5-5.0); Alkaline Phosphatase 80 U/L (39-117); Aspartate Amino Transferase 17 U/L (5-37); Lipase 13 U/L (8-78); Total Protein 6.3 g/dL (6.5-8.0)
--- NOTE | 2024-12-18 05:20 | PC.NURSE ---
awaiting provider confirmation of no cultures needed prior to administering antibiotic for cholecystitis.
[2024-12-18] MEDS: Albuterol/Iprat 2.5/0.5MG 3 ML AMPUL.NEB INHALE ×3 (05:36→22:02)
[2024-12-18 05:39] LABS: Hematocrit 29.9 % (42.0-52.0); Hemoglobin 9.0 g/dl (14.0-18.0); Imm Gran Abs Auto 0.10 X10*3/uL (0.00-0.03); Imm Gran Pct Auto 1.6 % (0.0-0.4); Lymphocytes Absolute Auto 0.3 X10*3/uL (1.2-4.9); MANUAL DIFF FLAG SCAN; Mean Corpuscular HGB Conc 30.1 g/dl (31.0-36.0); Mean Corpuscular Hemoglobin 27.6 pg (27.0-33.0); Mean Corpuscular Volume 91.7 fL (80.0-98.0); NRBC Abs Auto 0.000 X10*3/uL (0.0-0.012); NRBC Pct Auto 0.0 /100WBC (0.0-0.2); Platelet Count 183 X10*3/uL (160-400); Red Blood Count 3.26 X10*6/uL (4.60-5.80); SCAN SMEAR FLAG 1; White Blood Count 6.3 X10*3/uL (4.8-10.8)
[2024-12-18] MEDS: metroNIDAZOLE/NS 500 MG/100 ML PIGGYBACK 100 MG IV ×3 (05:41→21:38)
--- NOTE | 2024-12-18 05:50 | PC.NURSE ---
pt medicated per MA after blood cultures were drawn
--- NOTE | 2024-12-18 05:51 | P.CONGS_ITS ---
History of Present Illness Consult details Consult date: 12/18/24 <Nely Lopes PA-C - Last Filed: 12/18/24 08:32> Reason for consult: other (possible cholangitis) <Nely Lopes PA-C - Last Filed: 12/18/24 08:32> Narrative: 74-year-old male with extensive PMH including HTN, HLD, CAD, liver cirrhosis, obesity, COPD on 3 L of home oxygen, anemia, chronic constipation who presented to the hospital yesterday with complaints of shortness of breath that began a few days ago. He was admitted to the hospitalist service for acute hypoxic respiratory failure and acute COPD exacerbation. Chest CTA was performed as part of his work up and was negative for PE but showed minimal left and trace right pleural effusions, scattered atelectasis and small area of ground-glass opacity left lower lobe. It also demonstrated a thick walled gallbladder, small amount of pneumobilia and a slightly increased density in the distal common bile ducts. There was concern for acute cholecystitis, choledocolithiasis and cholangitis and therefore general surgery was consulted. WBC count and LFTs are normal. He has been started on IV flagyl and rocephin empirically. Review of his chart shows he had an ERCP performed at [facility] in 08/2020 for choledocolithiasis, cholangitis, enterococcus bacteremia. He has a similar amount of pneumobilia noted on all chest/abd pelvis CT scans dating back to 2022. He c/o shortness of breath this morning and abdominal bloating. He denies overt abdominal pain. He denies fevers, chills, nausea, vomiting, change in skin color. He reports his last BM was Saturday or Saturday. He had a follow up GI appointment after his last admission and was started on a new bowel regimen and has been going daily. <Nely Lopes PA-C - Last Filed: 12/18/24 08:32> FOR[facility]LY [facility] Past Medical History Medical History: Medical History Positive colorectal cancer screening using Cologuard test HTN (hypertension) History of adenomatous polyp of colon Acute on chronic respiratory failure with hypoxia and hypercapnia Respiratory failure with hypoxia and hypercapnia Bilateral carotid artery disease CAD (coronary artery disease) Anxiety and depression Anemia Chronic respiratory failure with hypoxia and hypercapnia Radiation fibrosis of lung Dyslipidemia History of pneumonia Bacteremia due to Enterococcus COPD, severe Diabetes mellitus with hyperglycemia, without long-term current use of insulin Urinary incontinence Asthma Lung cancer Skin cancer <Nely Lopes PA-C - Last Filed: 12/18/24 08:32> Family History Family History: Family History Father Medical history non-contributory Mother Medical history non-contributory Unknown family medical history Lung collapse Brother No problems noted. Brother No problems noted. Son Substance use disorder Son No problems noted. Daughter No problems noted. Sister No problems noted. Sister No problems noted. Sister No problems noted. Sister No problems noted. Other HTN (hypertension) <Nely Lopes PA-C - Last Filed: 12/18/24 08:32> Surgical History Surgical History: Surgical History Hx of heart artery stent History of esophagogastroduodenoscopy (EGD) Hx of colonoscopy <Nely Lopes PA-C - Last Filed: 12/18/24 08:32> Social History Social History: Social History Household Members: Spouse Household Members Other:: grandson Housing: House Are you a primary caregivers non medical to a significant other at home: No Do you presently have visiting nurse or other home services: No Alcohol intake: never Comment: refusing all fall risk interventions Patient Tobacco Use Status: Former Tobacco user Tobacco use type: Cigarette Smoked in Last 30 Days: No e-Cigarette/Vaping Use: Never Used Use of substances other than those prescribed or required for medical reasons: No Advance Directives: Yes Advance Directives on File: Yes Advance Directives Date on File: 06/08/22 Do you have a plan to hurt others: No Plan Nutrition Risks: No Nutritional Risk service: No Current occupational status: retired Cognitive needs: No Hearing needs: No Vision needs: No <ISAÍAS Bolaños Last Filed: 12/18/24 08:32> Meds Allergies/Adverse reactions: Allergies Allergy/AdvReac Type Severity Reaction Status Date / Time fluticasone furoate (From Allergy Intermediate Rash Verified 12/17/24 15:59 Trelegy Ellipta) vilanterol (From Trelegy Allergy Intermediate Rash Verified 12/17/24 15:59 Ellipta) umeclidinium (Incruse Allergy Unknown Hives Verified 12/17/24 15:59 Ellipta) furosemide (From Lasix) AdvReac Intermediate Hallucinati Verified 12/17/24 15:59 ons <Nely Lopes PA-C - Last Filed: 12/18/24 08:32> Active Medications: Current Medications Acetaminophen (Acetaminophen 325 Mg Tablet) 650 mg PO Q6H PRN PRN Reason: Pain, Mild 1-3,fever,headache Albuterol/Ipratropium (Albuterol/Iprat 2.5/0.5mg 3 Ml Ampul.Neb) 3 ml INHALE Q4H PRN PRN Reason: Shortness of Breath/Wheezing Albuterol/Ipratropium (Albuterol/Iprat 2.5/0.5mg 3 Ml Ampul.Neb) 3 ml INHALE Q6H COUNT INCLUDES THE [facility] Last Admin: 12/18/24 05:36 Dose: 3 ml Calcium Carbonate (Calcium Carbonate 750 Mg Tab.Chew) 750 mg PO Q4H PRN PRN Reason: Heartburn Ceftriaxone Sodium (Ceftriaxone Sodium 1 Gm Vial) 1 gm IVPUSH 0600 COUNT INCLUDES THE [facility] Last Admin: 12/18/24 05:41 Dose: 1 gm Dextrose (Dextrose 50 % 25 Gm/50 Ml Syringe) 25 gm IVPUSH Q15M PRN; Protocol PRN Reason: per Hypoglycemia Standing Ord. Enoxaparin Sodium (Enoxaparin Sodium 40 Mg/0.4 Ml Syringe) 40 mg SUBCUT Q24H COUNT INCLUDES THE [facility] Glucose (Glucose Gel 15 Gm Gel..Gram.) 15 gm PO Q15M PRN; Protocol PRN Reason: per Hypoglycemia Standing Ord. Metronidazole (Flagyl) 500 mg in 100 mls @ 100 mls/hr IV Q8H COUNT INCLUDES THE [facility] Last Admin: 12/18/24 05:41 Dose: 100 mls/hr Insulin Human Lispro (Insulin Lispro 100 Unit/Ml 3 Ml Vial) 0 unit SUBCUT QIDACHS DUTCH; Protocol Magnesium Hydroxide (Milk Of Magnesia 30 Ml Oral.Susp) 30 ml PO DAILY PRN PRN Reason: Constipation Melatonin (Melatonin 3 Mg Tablet) 6 mg PO BEDTIME PRN PRN Reason: Insomnia Methylprednisolone Sodium Succinate (Methylprednisolone Sod Succ 40 Mg/Ml Vial) 40 mg IVPUSH Q8H COUNT INCLUDES THE [facility] Last Admin: 12/18/24 05:41 Dose: 40 mg Sodium Chloride (0.9 % Sodium Chloride Flush 3 Ml Syringe) 3 ml IVFLUSH QSHIFT COUNT INCLUDES THE [facility] Last Admin: 12/18/24 00:37 Dose: Not Given <Nely Lopes PA-C - Last Filed: 12/18/24 08:32> Home medications: Home Medications ?Medication ?Instructions ?Recorded ?Confirmed ?Last Taken ?Type budesonide-formoterol HFA 160 2 puff inhalation DAILY 03/14/21 12/08/24 11/29/24 History mcg-4.5 mcg/actuation aerosol inhaler (Symbicort) calcium 600 mg (as 1 tab PO DAILY 08/04/2106/0211/29/24 History carbonate)-vitamin D3 10 mcg (400 unit) tablet Oxygen Home Use 06/14/22 12/08/24 Unknown H istory bisacodyl 5 mg tablet,delayed 10 mg PO DAILY PRN const ipation 06/16/24 12/08/24 09/23/24 21:00 History release (Laxative (bisacodyl)) albuterol sulfate 90 mcg/actuation 2 puff inhalation Q 4H PRN 09/24/24 12/08/24 09/23/24 21:00 History aerosol inhaler (Ventolin HFA) shortness of breath or wheezing aspirin 81 mg tablet 81 mg PO DAILY 11/11/240 06/0211/29/24 History lactulose 10 gram/15 mL oral 10 g PO BID PRN Constipat ion 11/11/24 12/08/24 Unknown History solution azithromycin 500 mg tablet 500 mg PO 3XW 12/18/24 Unk nown History <Nely Lopes PA-C - Last Filed: 12/18/24 08:32> Physical Exam 2 Vital Signs: Vital Signs: Last Vital Signs Temp 98.5 F 12/18/24 04:08 Pulse 96 12/18/24 04:08 Resp 20 12/18/24 04:08 BP 119/61 12/18/24 04:08 Pulse Ox 95 12/18/24 04:08 O2 Del Method Nasal Cannula 12/18/24 04:08 O2 Flow Rate 3 12/18/24 04:08 Oxygen Flow Rate 3 12/17/24 15:53 BMI result Body Mass Index 32.5 <Nely Lopes PA-C Yadi Last Filed: 12/18/24 08:32> Const: General: no acute distress and alert <Nely MILES LopesMadi Grullon Last Filed: 12/18/24 08:32> Orientation/consciousness: patient oriented x3 <MILES BolañosMadi Grullon Last Filed: 12/18/24 08:32> Resp: Effort & Inspection: able to speak in complete sentences, no respiratory distress and not tachypneic <MILES BolañosMadi Grullon Last Filed: 12/18/24 08:32> GI: Other: markedly protuberant abdomen distended but soft mild discomfort to palpation diffusely but no overt tenderness <Nely MILES LopesMadi Grullon Last Filed: 12/18/24 08:32> Palpation (GI): no guarding <Nely VigilMILES bahMadi Grullon Last Filed: 12/18/24 08:32> Skin: General skin exam: no rashes or lesions noted <Nely MILES LopesMadi Grullon Last Filed: 12/18/24 08:32> Neuro: General: patient oriented x3 <MILES BolañosMadi Grullon Last Filed: 12/18/24 08:32> Results Labs Result diagrams: 12/18/24 05:34 12/18/24 05:34 <Nely MILES LopesMadi Grullon Last Filed: 12/18/24 08:32> Labs: Abnormal lab results 12/17/24 12/17/24 12/17/24 Range/Units 18:45 20:59 21:02 RBC 3.28 L (4.60-5.80) X10*6/uL Hgb 9.1 L (14.0-18.0) g/dl Hct 30.6 L (42.0-52.0) % MCHC 29.7 L (31.0-36.0) g/dl Immature Gran % (Auto) 1.5 H (0.0-0.4) % Neut % (Auto) 86.6 H (45-73) % Lymph % (Auto) 4.5 L (20-40) % Lymph # (Auto) 0.4 L (1.2-4.9) X10*3/uL Abs Immat Gran (auto) 0.12 H (0.00-0.03) X10*3/uL VBG pH 7.54 H (7.32-7.43) VBG HCO3 49 H (22-26) mmol/L Chloride 94 L (96-108) mmol/L Carbon Dioxide 39 H (22-29) mmol/L Random Glucose 286 H (60-115) mg/dL B-Natriuretic Peptide 101 H (<100) pg/mL Total Protein 6.3 L (6.5-8.0) g/dL Albumin 3.4 L (3.5-5.0) g/dL 12/18/24 Range/Units 05:34 RBC 3.26 L (4.60-5.80) X10*6/uL Hgb 9.0 L (14.0-18.0) g/dl Hct 29.9 L (42.0-52.0) % MCHC 30.1 L (31.0-36.0) g/dl Immature Gran % (Auto) (0.0-0.4) % Neut % (Auto) (45-73) % Lymph % (Auto) (20-40) % Lymph # (Auto) (1.2-4.9) X10*3/uL Abs Immat Gran (auto) (0.00-0.03) X10*3/uL VBG pH (7.32-7.43) VBG HCO3 (22-26) mmol/L Chloride (96-108) mmol/L Carbon Dioxide (22-29) mmol/L Random Glucose (60-115) mg/dL B-Natriuretic Peptide (<100) pg/mL Total Protein (6.5-8.0) g/dL Albumin (3.5-5.0) g/dL Short CBC 12/17/24 12/18/24 Range/Units 18:45 05:34 WBC 7.8 6.3 (4.8-10.8) X10*3/uL Hgb 9.1 L 9.0 L (14.0-18.0) g/dl Hct 30.6 L 29.9 L (42.0-52.0) % Plt Count 185 D 183 (160-400) X10*3/uL BMP 12/17/24 18:45 Sodium 143 Potassium 4.0 Chloride 94 L Carbon Dioxide 39 H BUN 13 Creatinine 0.93 Calcium 8.4 D Liver Function 12/17/24 Range/Units 18:45 Total Bilirubin 0.3 (0.0-1.0) mg/dL Direct Bilirubin 0.1 (0.0-0.5) mg/dL AST 17 (5-37) U/L ALT 9 (0-40) U/L Alkaline Phosphatase 80 (39-117) U/L Albumin 3.4 L (3.5-5.0) g/dL All other labs normal. <Nely Lopes PA-C - Last Filed: 12/18/24 08:32> Imaging CT scan - chest: report reviewed and image reviewed <ISAÍAS Bolaños Last Filed: 12/18/24 08:32> Additional studies: labs reviewed <ISAÍAS Bolaños Last Filed: 12/18/24 08:32> Assessment and Plan (1) Pneumobilia: Status: Acute <ISAÍAS Bolaños Last Filed: 12/18/24 08:32> 74-year-old male with extensive PMH including HTN, HLD, CAD, liver cirrhosis, obesity, COPD on 3 L of home oxygen, anemia, chronic constipation presenting with complaints of shortness of breath for a few days admitted with acute hypoxic respiratory failure and acute COPD exacerbation. Incidentally noted on Chest CTA on admission was gallbladder wall thickening and pneumobilia. he is clinically appearing well and non toxic, abd is overall benign with no RUQ tenderness. His gallbladder wall is thickened but contracted, small amt of pnuemobilia- has been similar in appearance in his past few CT abd/pelvis scans. His LFTs are normal and he has no leukocytosis. Pneumobilia likely from instrumentation from ERCP. Clinical picture not consistent with acute cholangitis. No surgical intervention currently warranted. Continue conservative measures and home bowel regimen, patient has history of severe constipation. < Nely Lopes PA-C - Last Filed: 12/18/24 08:32> 74-year-old male with extensive PMH including HTN, HLD, CAD, liver cirrhosis, obesity, COPD on 3 L of home oxygen, anemia, chronic constipation presenting with complaints of shortness of breath for a few days admitted with acute hypoxic respiratory failure and acute COPD exacerbation. Incidentally noted on Chest CTA on admission was gallbladder wall thickening and pneumobilia. he is clinically appearing well and non toxic, abd is overall benign with no RUQ tenderness. His gallbladder wall is thickened but contracted, small amt of pnuemobilia- has been similar in appearance in his past few CT abd/pelvis scans. His LFTs are normal and he has no leukocytosis. Pneumobilia likely from instrumentation from ERCP. Clinical picture not consistent with acute cholangitis. No surgical intervention currently warranted. Continue conservative measures and home bowel regimen, patient has history of severe constipation. Patient seen and examined and I concur with the above assessment and plan. Patient's abdominal exam is benign and findings are expected post ERCP. No surgical intervention recommended at this time. <Rob Read MD - Last Filed: 12/18/24 08:44> Procedures Date of Service Date of Service: 12/18/24 <Nely Lopes PA-C - Last Filed: 12/18/24 08:32> 12/18/24 <Rob Read MD - Last Filed: 12/18/24 08:44>
[2024-12-18 05:59] LABS: Alanine Aminotransferase 11 U/L (0-40); Albumin Level 3.6 g/dL (3.5-5.0); Alkaline Phosphatase 89 U/L (39-117); Anion Gap 12 (12-20); Aspartate Amino Transferase 19 U/L (5-37); Blood Urea Nitrogen 17 mg/dL (9-16); Calcium 8.4 mg/dL (8.4-10.2); Carbon Dioxide 40 mmol/L (22-29); Chloride 91 mmol/L (96-108); Creatinine Clr Calc Pharmacy 65.9; Estimated Glomerular Filt Rate > 60; Potassium 4.2 mmol/L (3.3-5.1); Sodium 139 mmol/L (135-145); Total Protein 6.5 g/dL (6.5-8.0)
--- NOTE | 2024-12-18 06:09 | PC.NURSE ---
provider states to give 8 units of insulin, provider aware of 447 glucose.
--- NOTE | 2024-12-18 07:00 | CA_ITS ---
Transthoracic Echocardiogram Patient (Last, First, Middle): Fitz Reed G Gender: Male Date of : 1950 Age: 74 Procedure Date: 12/18/2024 Procedure Type: Transthoracic Echocardiogram [place] [facility] [place] Height: 167. cm Weight: 91.17 kg BSA: 2.00 m2 Heart Rate: bpm BP: 113 / 56 mmHg Linux Kernel Developer: RAFAT Diaz MD: Carson Yusuf MD Commercial Subcontractor: tSevenson Carpio MD Symptoms: syncope Study Quality: Adequate ECG Rhythm: Sinus Conclusions: - 1. Normal LV ejection fraction of 60 65% with impaired relaxation filling pattern 2. Mild aortic stenosis 3. Normal RV systolic pressure 4. No gross pericardial effusion Findings Left Ventricle Normal left ventricular size, thickness, and systolic function. The visually estimated ejection fraction is between 60-65%. Spectral Doppler is indicative of an impaired relaxation filling pattern. E/E prime ratio is between 8 and 15 consistent with indeterminate filling pressures. Right Ventricle Normal right ventricular cavity size and systolic function. Atria Both atria are normal in size. There is no evidence of interatrial shunt. Aortic Valve There is mild calcification of the aortic valve. There is mild thickening of the aortic valve. There is mild aortic valve stenosis. The peak aortic velocity is 2.26 m/s with a calculated peak gradient of 20 mmHg. The mean gradient is 11 mmHg. The aortic valve area is 2.07 cm2. There is no aortic valve regurgitation. Mitral Valve Likely normal mitral valve structure and function. There is trace mitral valve regurgitation. There is no mitral valve stenosis. Pulmonic Valve The pulmonic valve is likely normal. Tricuspid Valve Likely normal tricuspid valve structure and function. There is trace tricuspid valve regurgitation. The right ventricular systolic pressure is normal. The right ventricular systolic pressure is 17 mmHg. Normal right atrial pressure. There is no evidence of pulmonary hypertension. Great Vessels All visible segments of the aorta are normal in size. The pulmonary artery was not well visualized. There is no dilatation of the ascending aorta measuring 3.50 cm. Small plaque is seen in the sino tubular ridge. Venous The inferior vena cava is normal in size and collapses greater than 50% with inspiration. Pericardium/Pleural There is no evidence of pericardial effusion. Measurements 2D Linear Measurements IVSd: 0.87 0.6-0.9/0.6-1.0 cm LVIDd: 5.68 3.9-5.3/4.2-5.9 cm LVIDd Index: 2.84 2.4-3.2/2.2-3.1 cm/m2 LVIDs: 3.96 2.0-3.6 cm LVPWd: 0.90 0.7-1.1 cm Ao Root: 3.70 2.1-3.5 cm LA Diam: 3.80 2.7-3.8/3.0-4.0 cm LAIDs Index: 1.90 1.5-2.3 cm/m2 LV Mass: 240.32 67-162/88-224 g LV Mass Index: 120.16 43-95/49-115 g/m2 LVOT Diam: 2.20 3.0+(-)1.3 cm 2D Systolic Function EF 4C: 55.60 >55% EF 2C: 63.60 >55% EF BiP: 61.70 >55% Mitral Valve MV Pk E: 1.25 MV PK A: 1.27 MV Decel Time: 246.00 E/A: 1.00 E'Lateral: 6.20 E'Medial: 5.44 E/E' Med: 23.00 E/E' Lat: 20.20 PHT: 72.00 MVA PHT: 3.06 Decel [place]: 5.08 Aortic Valve AoV Pk Alberto: 2.26 AoV Mn Alberto: 1.52 AoV VTI: 0.49 AoV Pk Grad: 20.00 Aov Mn Grad: 11.00 UMAIR Cont.VTI: 2.07 LVOT LVOT Pk Alberto: 1.14 LVOT Mn Alberto: 0.80 LVOT VTI: 0.26 LVOT Pk Grad: 5.00 LVOT Mn Grad: 3.00 LVOT Diam: 2.20 LVOT Area: 3.80 Diastolic Function MV Pk E: 1.25 MV Pk A: 1.27 E/A: 1.00 E'Medial: 5.44 E/E' Med: 23.00 E' Laterial: 6.20 E/E' Lat: 20.20 Right Ventricle TAPSE (mm): 26.00 TVS' Alberto: 12.00 Tricuspid Valve TR Pk Alberto: 1.89 TR Pk Grad: 14.00 RA Press: 3.00 RVSP: 17.00 Great Vessels Aorta Ao Root-2D: 3.70 2.0-3.7 cm Ao Asc: 3.50 2.1-3.4 cm Pulmonary Veins Pulm Vein S/D 1.60 Pulmonary Valve PV Pk Alberto: 1.06 Peak PV Grad: 4.00 Updated in Other Vendor System with Status of Final Stevenson Carpio MD electronically signed on 12/18/2024 1:43:52 PM with status of Final
--- NOTE | 2024-12-18 07:11 | P.PNIM_ITS ---
Subjective Subjective Date of Service: 12/18/24 Physical Exam 2 Vital Signs: Vital Signs: Last Vital Signs Temp 98.4 F 12/18/24 06:08 Pulse 83 12/18/24 06:08 Resp 16 12/18/24 06:08 BP 113/56 L 12/18/24 06:08 Pulse Ox 95 12/18/24 06:08 O2 Del Method Nasal Cannula 12/18/24 06:08 O2 Flow Rate 3 12/18/24 06:08 Oxygen Flow Rate 3 12/17/24 15:53 BMI result Body Mass Index 32.5 Const: Other: * Gen: ?Chronically ill-appearing on oxygen * HEENT: PERRLA, EOMI, MMM, * Neck: Supple, no LAD * CV: RRR, no obvious murmurs appreciated * Resp: Some scattered rhonchorous breath sounds consistent with his history but no wheezing, no stridor, no rales * Abd: ?Bowel sounds are present, no tenderness no rebound no rigidity * MSK: FROM, has been ambulatory * Skin: Some chronic changes of the lower extremities * Neuro: ?Alert and oriented x3, moving upper and lower extremities symmetrically, no obvious facial asymmetry noted Objective Data Active Medications Acetaminophen (Acetaminophen 325 Mg Tablet) 650 mg PO Q6H PRN PRN Reason: Pain, Mild 1-3,fever,headache Albuterol/Ipratropium (Albuterol/Iprat 2.5/0.5mg 3 Ml Ampul.Neb) 3 ml INHALE Q4H PRN PRN Reason: Shortness of Breath/Wheezing Albuterol/Ipratropium (Albuterol/Iprat 2.5/0.5mg 3 Ml Ampul.Neb) 3 ml INHALE Q6H [facility] Last Admin: 12/18/24 05:36 Dose: 3 ml Documented By: EDUAR Calcium Carbonate (Calcium Carbonate 750 Mg Tab.Chew) 750 mg PO Q4H PRN PRN Reason: Heartburn Ceftriaxone Sodium (Ceftriaxone Sodium 1 Gm Vial) 1 gm IVPUSH 0600 [facility] Last Admin: 12/18/24 05:41 Dose: 1 gm Documented By: NANCY Dextrose (Dextrose 50 % 25 Gm/50 Ml Syringe) 25 gm IVPUSH Q15M PRN; Protocol PRN Reason: per Hypoglycemia Standing Ord. Enoxaparin Sodium (Enoxaparin Sodium 40 Mg/0.4 Ml Syringe) 40 mg SUBCUT Q24H [facility] Glucose (Glucose Gel 15 Gm Gel..Gram.) 15 gm PO Q15M PRN; Protocol PRN Reason: per Hypoglycemia Standing Ord. Metronidazole (Flagyl) 500 mg in 100 mls @ 100 mls/hr IV Q8H [facility] Last Infusion: 12/18/24 07:06 Dose: Infused Documented By: NANCY Insulin Human Lispro (Insulin Lispro 100 Unit/Ml 3 Ml Vial) 0 unit SUBCUT QIDACHS [facility]; Protocol Last Admin: 12/18/24 06:21 Dose: 8 unit Documented By: NANCY Magnesium Hydroxide (Milk Of Magnesia 30 Ml Oral.Susp) 30 ml PO DAILY PRN PRN Reason: Constipation Melatonin (Melatonin 3 Mg Tablet) 6 mg PO BEDTIME PRN PRN Reason: Insomnia Methylprednisolone Sodium Succinate (Methylprednisolone Sod Succ 40 Mg/Ml Vial) 40 mg IVPUSH Q8H [facility] Last Admin: 12/18/24 05:41 Dose: 40 mg Documented By: NANCY Sodium Chloride (0.9 % Sodium Chloride Flush 3 Ml Syringe) 3 ml IVFLUSH QSHIFT [facility] Last Admin: 12/18/24 00:37 Dose: Not Given Documented By: NANCY Non-Admin Reason: new Iv done at thsi time with flush Labs 12/18/24 05:34 12/18/24 05:34 Labs: Laboratory Results - last 24 hr 12/17/24 12/17/24 12/17/24 16:06 18:45 20:59 MCV 93.3 MCH 27.7 MCHC 29.7 L RDW 14.6 Plt Count 185 D MPV 9.9 Immature Gran % (Auto) 1.5 H Neut % (Auto) 86.6 H Lymph % (Auto) 4.5 L Morrill % (Auto) 7.2 Eos % (Auto) 0.1 Baso % (Auto) 0.1 Lymph # (Auto) 0.4 L Morrill # (Auto) 0.6 Eos # (Auto) 0.0 Baso # (Auto) 0.0 Abs Immat Gran (auto) 0.12 H Absolute Neuts (auto) 6.7 Absolute Nucleated RBC 0.000 Nucleated RBC % (auto) 0.0 Smear Tech's Comments VBG pH VBG pCO2 VBG pO2 VBG HCO3 VBG O2 Saturation VBG Base Excess Anion Gap 14 Estim Creat Clear Calc 73.7 Estimated GFR > 60 Random Glucose 286 H Calcium 8.4 D Total Bilirubin 0.3 Direct Bilirubin 0.1 AST 17 ALT 9 Alkaline Phosphatase 80 B-Natriuretic Peptide 101 H Total Protein 6.3 L Albumin 3.4 L Lipase 13 COVID-19 (LESTER) Negative COVID-19 Clin Com See Note Influenza Type A (MATHEW) Negative Influenza Type B (MATHEW) Negative Influenza A & B Note See Note 12/17/24 12/18/24 21:02 05:34 MCV 91.7 MCH 27.6 MCHC 30.1 L RDW 14.6 Plt Count 183 MPV 9.7 Immature Gran % (Auto) 1.6 H Neut % (Auto) 91.6 H Lymph % (Auto) 4.6 L Morrill % (Auto) 2.2 Eos % (Auto) 0.0 Baso % (Auto) 0.0 Lymph # (Auto) 0.3 L Morrill # (Auto) 0.1 Eos # (Auto) 0.0 Baso # (Auto) 0.0 Abs Immat Gran (auto) 0.10 H Absolute Neuts (auto) 5.7 Absolute Nucleated RBC 0.000 Nucleated RBC % (auto) 0.0 Smear Tech's Comments VERIFIED VBG pH 7.54 H VBG pCO2 56 VBG pO2 75 VBG HCO3 49 H VBG O2 Saturation 99.0 VBG Base Excess 23.4 Anion Gap 12 Estim Creat Clear Calc 65.9 Estimated GFR > 60 Random Glucose 447 H* Calcium 8.4 Total Bilirubin 0.3 Direct Bilirubin AST 19 ALT 11 Alkaline Phosphatase 89 B-Natriuretic Peptide Total Protein 6.5 Albumin 3.6 Lipase COVID-19 (LESTER) COVID-19 Clin Com Influenza Type A (MATHEW) Influenza Type B (MATHEW) Influenza A & B Note Assessment and Plan (1) COPD exacerbation: Status: Acute (2) Chronic lung disease: Status: Acute Plan 74-year-old male with a past medical history of HTN, HLD, CAD, liver cirrhosis, obesity, COPD on 3 L of home oxygen, anemia, anxiety, depression, chronic lung disease; presented to the hospital today with a chief complaint of shortness of breath. Admitted for following Acute and chronic hypoxic respiratory failure d/t Acute COPD exacerbation, on chronic supplemental O2 at 3 L Bronchodilators by Neb IV corticosteroid Empiric Azithromycin O2 sat goal of [address] chest No PE, Small area of ground-glass opacity left lower lobe. Consider three-month follow-up. ? Cholangitis/cholecystitis: CT scan showed abnormal gallbladder with pneumobilia-suspected choledocholithiasis/cholecystitis/cholangitis Clinically has no evidence of cholecysitis, has history of sphincterotomy so pneumobilia is expected. General surgery and GI seen no intervention LFTs are normal Syncope: Patient reports having couple episodes of syncope-appears vasovagal versus seizure duration. Orthostatic vitals Telemetry Echocardiogram Holter at the time of discharge Cardiology follow-up Diabetes with hyperglycemia, Insulin sliding scale resume Glipizide, hold metformin d/t dye use DVT prophylaxis: Lovenox Code status: Full code Quality Stroke Does the patient have a stroke diagnosis?: No VTE Prior VTE?: No VTE Risk Level:: Medical - moderate - high VTE Device Contraindication: Treatment Not Indicated VTE Drug Contraindication: N/A - Med Ordered
[2024-12-18 07:35] LABS: Glucose, Whole Blood 426 mg/dL (60-115)
[2024-12-18] MEDS: 0.9 % Sodium Chloride Flush 3 ML SYRINGE IVFLUSH ×3 (09:13→21:44)
--- NOTE | 2024-12-18 09:18 | PHA.MEDREC ---
Addendum entered by Melba Montes RPh 12/18/24 09:51: REVIEWED BY PHARMACIST Original Note: Pharmacy Consult ? Medication Reconciliation Pharmacy has completed the medication reconciliation. Spoke with pt and he confirmed his medications. Pt confirmed he is taking Azithromycin 500mg MOWEFR but cannot remember if he took it Saturday (12/16) but knows took it Saturday (12/14). Pt confirmed he is taking Symbicort 2 puffs daily as needed and states he either filled that at [facility] or [facility]; I called both those pharmacies and they did not have claims for Symbicort for over 2+ years.
[2024-12-18 10:06] LABS: Glucose, Whole Blood 313 mg/dL (60-115)
--- NOTE | 2024-12-18 12:55 | P.CNGI_ITS ---
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 Patient has had multiple recurrent admissions this year for shortness of breath and severe constipation. Gastroenterology has been consulted for questions pneumobilia. Patient himself reports no abdominal pain, nausea, vomiting, intolerance to p.o. intake. Does report constipation, which is a chronic issue for him. See previous documentation. In terms of pneumobilia He has had known gallstones and choledocholithiasis since at least 2021 with pneumobilia since at least 2022 (see CT chest images 07/2022). He does not recall any biliary intervention done endoscopically or percutaneously. Review of Systems 2 Review of Systems: Yes all other systems are reviewed and are negative PMF Past Medical History Medical History Positive colorectal cancer screening using Cologuard test HTN (hypertension) History of adenomatous polyp of colon Acute on chronic respiratory failure with hypoxia and hypercapnia Respiratory failure with hypoxia and hypercapnia Bilateral carotid artery disease CAD (coronary artery disease) Anxiety and depression Anemia Chronic respiratory failure with hypoxia and hypercapnia Radiation fibrosis of lung Dyslipidemia History of pneumonia Bacteremia due to Enterococcus COPD, severe Diabetes mellitus with hyperglycemia, without long-term current use of insulin Urinary incontinence Asthma Lung cancer Skin cancer Family History Family History Father Medical history non-contributory Mother Medical history non-contributory Unknown family medical history Lung collapse Brother No problems noted. Brother No problems noted. Son Substance use disorder Son No problems noted. Daughter No problems noted. Sister No problems noted. Sister No problems noted. Sister No problems noted. Sister No problems noted. Other HTN (hypertension) Surgical History Surgical History Hx of heart artery stent History of esophagogastroduodenoscopy (EGD) Hx of colonoscopy Social History Social History Household Members: Spouse Household Members Other:: grandson Housing: House Are you a primary primary care pediatrician to a significant other at home: No Do you presently have visiting nurse or other home services: No Alcohol intake: never Comment: refusing all fall risk interventions Patient Tobacco Use Status: Former Tobacco user Tobacco use type: Cigarette Smoked in Last 30 Days: No e-Cigarette/Vaping Use: Never Used Use of substances other than those prescribed or required for medical reasons: No Have you been hit, kicked, punched, or otherwise hurt by someone within the past year? If so, by whom?: No Do you feel safe in your current relationship?: Yes Is there a partner from a previous relationship who is making you feel unsafe now?: No Are you made to feel afraid or neglected: No Advance Directives: Yes Advance Directives on File: Yes Advance Directives Date on File: 06/08/22 Do you have a plan to hurt others: No Plan Recently lost weight without trying: No Eating poorly because of decreased appetite: No Nutrition Risks: Dental problems Poor oral hygiene: No service: No Current occupational status: retired Cognitive needs: No Hearing needs: No Vision needs: No Meds Allergies Allergy/AdvReac Type Severity Reaction Status Date / Time fluticasone furoate (From Allergy Intermediate Rash Verified 12/17/24 15:59 Trelegy Ellipta) vilanterol (From Trelegy Allergy Intermediate Rash Verified 12/17/24 15:59 Ellipta) umeclidinium (Incruse Allergy Unknown Hives Verified 12/17/24 15:59 Ellipta) furosemide (From Lasix) AdvReac Intermediate Hallucinati Verified 12/17/24 15:59 ons Active Medications: Current Medications Acetaminophen (Acetaminophen 325 Mg Tablet) 650 mg PO Q6H PRN PRN Reason: Pain, Mild 1-3,fever,headache Albuterol/Ipratropium (Albuterol/Iprat 2.5/0.5mg 3 Ml Ampul.Neb) 3 ml INHALE Q4H PRN PRN Reason: Shortness of Breath/Wheezing Albuterol/Ipratropium (Albuterol/Iprat 2.5/0.5mg 3 Ml Ampul.Neb) 3 ml INHALE Q6H [facility] Last Admin: 12/18/24 11:46 Dose: 3 ml Calcium Carbonate (Calcium Carbonate 750 Mg Tab.Chew) 750 mg PO Q4H PRN PRN Reason: Heartburn Ceftriaxone Sodium (Ceftriaxone Sodium 1 Gm Vial) 1 gm IVPUSH 0600 [facility] Last Admin: 12/18/24 05:41 Dose: 1 gm Dextrose (Dextrose 50 % 25 Gm/50 Ml Syringe) 25 gm IVPUSH Q15M PRN; Protocol PRN Reason: per Hypoglycemia Standing Ord. Enoxaparin Sodium (Enoxaparin Sodium 40 Mg/0.4 Ml Syringe) 40 mg SUBCUT Q24H [facility] Last Admin: 12/18/24 07:44 Dose: Not Given Glucose (Glucose Gel 15 Gm Gel..Gram.) 15 gm PO Q15M PRN; Protocol PRN Reason: per Hypoglycemia Standing Ord. Metronidazole (Flagyl) 500 mg in 100 mls @ 100 mls/hr IV Q8H [facility] Last Infusion: 12/18/24 07:06 Dose: Infused Insulin Human Lispro (Insulin Lispro 100 Unit/Ml 3 Ml Vial) 0 unit SUBCUT QIDACHS [facility]; Protocol Last Admin: 12/18/24 06:21 Dose: 8 unit Magnesium Hydroxide (Milk Of Magnesia 30 Ml Oral.Susp) 30 ml PO DAILY PRN PRN Reason: Constipation Melatonin (Melatonin 3 Mg Tablet) 6 mg PO BEDTIME PRN PRN Reason: Insomnia Methylprednisolone Sodium Succinate (Methylprednisolone Sod Succ 40 Mg/Ml Vial) 40 mg IVPUSH Q8H [facility] Last Admin: 12/18/24 05:41 Dose: 40 mg Sodium Chloride (0.9 % Sodium Chloride Flush 3 Ml Syringe) 3 ml IVFLUSH QSHIFT [facility] Last Admin: 12/18/24 09:13 Dose: 3 ml Home Medications ?Medication ?Instructions ?Recorded ?Confirmed ?Last Taken ?Type budesonide-formoterol HFA 160 2 puff inhalation DAILY PRN 03/14/21 12/18/24 11/29/24 History mcg-4.5 mcg/actuation aerosol Shortness Of Breath Or W heezing inhaler (Symbicort) calcium 600 mg (as 1 tab PO DAILY 08/04/2112/0712/17/24 History carbonate)-vitamin D3 10 mcg (400 unit) tablet Oxygen Home Use 06/14/22 12/08/24 Unknown H istory albuterol sulfate 90 mcg/actuation 2 puff inhalation Q 4H PRN 09/24/24 12/18/24 09/23/24 21:00 History aerosol inhaler (Ventolin HFA) shortness of breath or wheezing aspirin 81 mg tablet 81 mg PO DAILY 11/11/2412/0712/17/24 History lactulose 10 gram/15 mL oral 10 g PO BID PRN Constipat ion 11/11/24 12/18/24 Unknown History solution azithromycin 500 mg tablet 500 mg PO MOWEFR 12/18/24 0 12/18/24 12/14/24 History sennosides 8.6 mg tablet (senna) 17.2 mg PO BID PRN co nstipation 12/18/24 12/18/24 12/17/24 History Physical Exam 2 Exam: Exam: Elderly gentleman Obese appearing Nasal cannula in place Abdomen soft, nondistended, nontender Lower extremity venous stasis changes Vital Signs: Vital Signs: Last Vital Signs Temp 98 F 12/18/24 09:23 Pulse 76 12/18/24 11:51 Resp 18 12/18/24 11:51 BP 113/62 12/18/24 09:23 Pulse Ox 95 12/18/24 09:23 O2 Del Method Room Air 12/18/24 09:23 O2 Flow Rate 3 12/18/24 06:08 Oxygen Flow Rate 3 12/17/24 15:53 BMI result Body Mass Index 32.5 Results Labs 12/18/24 05:34 12/18/24 05:34 Labs: Short CBC 12/17/24 12/18/24 Range/Units 18:45 05:34 WBC 7.8 6.3 (4.8-10.8) X10*3/uL Hgb 9.1 L 9.0 L (14.0-18.0) g/dl Hct 30.6 L 29.9 L (42.0-52.0) % Plt Count 185 D 183 (160-400) X10*3/uL BMP 12/17/24 12/18/24 18:45 05:34 Sodium 143 139 Potassium 4.0 4.2 Chloride 94 L 91 L Carbon Dioxide 39 H 40 H* BUN 13 17 H Creatinine 0.93 1.04 Calcium 8.4 D 8.4 Liver Function 12/17/24 12/18/24 Range/Units 18:45 05:34 Total Bilirubin 0.3 0.3 (0.0-1.0) mg/dL Direct Bilirubin 0.1 (0.0-0.5) mg/dL AST 17 19 (5-37) U/L ALT 9 11 (0-40) U/L Alkaline Phosphatase 80 89 (39-117) U/L Albumin 3.4 L 3.6 (3.5-5.0) g/dL Assessment and Plan (1) Pneumobilia: Status: Acute (2) Cholelithiasis: Status: Acute (3) Choledocholithiasis: Status: Acute Plan Patient with longstanding unchanged finding of pneumobilia with cholelithiasis and choledocholithiasis. Patient does not recall any history of percutaneous biliary drainage or ERCP. However, that is the most likely reason for pneumobilia has been present since at least 2022 based on personal review of imaging. Will get his records from [facility], to see if he has any record of prior endoscopic or percutaneous biliary drainage. . If he indeed has a hx of sphincterotomy, this would be the most likely explanation for benign pneumobilia. Overall clinical assessment, chronicity and nonobstructive LFTs argue against pneumobilia secondary to gas producing anaerobes or due to enterobiliary fistula. Plan: -records awaited from [facility] -okay for diet from gastroenterology standpoint -monitor LFTs while in-house -no indication for endoscopic intervention at this time Thank you for allowing me to participate in his care. Please do not hesitate to reach out for any questions or concerns. Procedures Date of Service Date of Service: 12/18/24
[2024-12-18 12:58] LABS: Glucose, Whole Blood 273 mg/dL (60-115)
--- NOTE | 2024-12-18 14:52 | MHC.CM.PN ---
Addendum entered by Justyna Valenzuela 12/20/24 12:22: [facility] CONFIRMED PT IS ACTIVE FOR SN AND PT Addendum entered by Justyna Valenzuela 12/20/24 11:54: PTS , TYE, REPORTS PT IS ACTIVE WITH [facility] RETURN REFERRAL PLACED Original Note: PT REPORTS HE LIVES WITH HIS AND HAS A VNA, BUT IS UNSURE OF THE AGENCY HE HAS HOME A NEBULIZER, CPAP AND HOME O2 FROM [facility] HCP ON FILE PCP: JOSE F HAYWARD IMM DELIVERED DCP: HOME VIA PRIVATE TRANSPORT ? RESUME VNA
[2024-12-18 17:07] LABS: Glucose, Whole Blood 367 mg/dL (60-115)
[2024-12-18 20:07] LABS: Glucose, Whole Blood 315 mg/dL (60-115)
[2024-12-19] VITALS (7 sets, daily range): BP systolic 115–137; BP diastolic 57–69; PULSE 64–104; RESP 18–20; TEMP 36–36.3; O2SAT 92–100
[2024-12-19] MEDS: metroNIDAZOLE/NS 500 MG/100 ML PIGGYBACK 100 MG IV (05:48)
[2024-12-19 07:51] LABS: Glucose, Whole Blood 244 mg/dL (60-115)
[2024-12-19] MEDS: Calcium + Vitamin D 250 MG TABLET 500 MG PO (08:22)
[2024-12-19] MEDS: Fluticasone/Vilanterol 200/25 BLST.W.DEV 1 PUFF INHALE (08:22)
[2024-12-19] MEDS: 0.9 % Sodium Chloride Flush 3 ML SYRINGE IVFLUSH ×3 (08:23→21:45)
--- NOTE | 2024-12-19 11:54 | P.PNIM_ITS ---
Subjective Subjective Date of Service: 12/19/24 Interval History: f/u on copd exacerbation overall is feeling better, less sob no abdominal pain Physical Exam 2 Vital Signs: Vital Signs: Last Vital Signs Temp 97.4 F 12/19/24 08:00 Pulse 104 H 12/19/24 08:24 Resp 18 12/19/24 08:24 BP 137/62 12/19/24 08:00 Pulse Ox 100 12/19/24 08:00 O2 Del Method Nasal Cannula 12/19/24 08:00 O2 Flow Rate 2 12/19/24 08:00 Oxygen Flow Rate 3 12/17/24 15:53 BMI result Body Mass Index 32.5 Const: Other: General: AO X 3, no acute distress Resp: CTA bilateral, normal breathing pattern CVS: S1,S2,RRR GI: +BS, NT, no distention Skin: No rash Neuro: motor grossly intact Psych: appropriate affect Objective Data Active Medications Acetaminophen (Acetaminophen 325 Mg Tablet) 650 mg PO Q6H PRN PRN Reason: Pain, Mild 1-3,fever,headache Albuterol/Ipratropium (Albuterol/Iprat 2.5/0.5mg 3 Ml Ampul.Neb) 3 ml INHALE Q4H PRN PRN Reason: Shortness of Breath/Wheezing Last Admin: 12/18/24 22:02 Dose: 3 ml Documented By: MADI Aspirin (Aspirin 81 Mg Tab.Chew) 81 mg PO DAILY [facility] Last Admin: 12/19/24 08:22 Dose: 81 mg Documented By: GABY Atorvastatin Calcium (Atorvastatin Calcium 80 Mg Tablet) 80 mg PO BEDTIME [facility] Last Admin: 12/18/24 20:05 Dose: 80 mg Documented By: FATUMA Calcium Carbonate (Calcium Carbonate 750 Mg Tab.Chew) 750 mg PO Q4H PRN PRN Reason: Heartburn Calcium Carbonate/Cholecalciferol (Calcium + Vitamin D 250 Mg Tablet) 500 mg PO DAILY [facility] Last Admin: 12/19/24 08:22 Dose: 500 mg Documented By: GABY Ceftriaxone Sodium (Ceftriaxone Sodium 1 Gm Vial) 1 gm IVPUSH 0600 [facility] Last Admin: 12/19/24 05:47 Dose: 1 gm Documented By: FATUMA Dextrose (Dextrose 50 % 25 Gm/50 Ml Syringe) 25 gm IVPUSH Q15M PRN; Protocol PRN Reason: per Hypoglycemia Standing Ord. Enoxaparin Sodium (Enoxaparin Sodium 40 Mg/0.4 Ml Syringe) 40 mg SUBCUT Q24H [facility] Last Admin: 12/19/24 08:23 Dose: Not Given Documented By: GABY Non-Admin Reason: Patient Refused Escitalopram Oxalate (Escitalopram Oxalate 20 Mg Tablet) 20 mg PO DAILY [facility] Last Admin: 12/19/24 08:22 Dose: 20 mg Documented By: GABY Fluticasone/Vilanterol (Fluticasone/Vilanterol 200/25 Blst.W.Dev) 1 puff INHALE RDAILY [facility] Last Admin: 12/19/24 08:22 Dose: 1 puff Documented By: MOMOSFILIPE Glipizide (Glipizide 5 Mg Tablet) 5 mg PO BIDAC [facility] Last Admin: 12/19/24 08:22 Dose: 5 mg Documented By: GABY Glucose (Glucose Gel 15 Gm Gel..Gram.) 15 gm PO Q15M PRN; Protocol PRN Reason: per Hypoglycemia Standing Ord. Metronidazole (Flagyl) 500 mg in 100 mls @ 100 mls/hr IV Q8H [facility] Last Infusion: 12/19/24 07:14 Dose: Infused Documented By: GABY Insulin Human Lispro (Insulin Lispro 100 Unit/Ml 3 Ml Vial) 0 unit SUBCUT QIDACHS [facility]; Protocol Last Admin: 12/19/24 08:23 Dose: 4 unit Documented By: GABY Lactulose (Lactulose 20 Gm/30 Ml Solution) 10 gm PO BID PRN PRN Reason: Constipation Lorazepam (Lorazepam 0.5 Mg Tablet) 0.5 mg PO BID PRN PRN Reason: Anxiety Last Admin: 12/18/24 21:41 Dose: 0.5 mg Documented By: FATUMA Magnesium Hydroxide (Milk Of Magnesia 30 Ml Oral.Susp) 30 ml PO DAILY PRN PRN Reason: Constipation Melatonin (Melatonin 3 Mg Tablet) 6 mg PO BEDTIME PRN PRN Reason: Insomnia Metformin HCl (Metformin Hcl 1,000 Mg Tablet) 1,000 mg PO BIDWM [facility] On Hold: 12/18/24 17:05 Last Admin: 12/18/24 17:01 Dose: 1,000 mg Documented By: JADE Methylprednisolone Sodium Succinate (Methylprednisolone Sod Succ 40 Mg/Ml Vial) 40 mg IVPUSH Q8H [facility] Last Admin: 12/19/24 05:47 Dose: 40 mg Documented By: FATUMA Metoprolol Tartrate (Metoprolol Tartrate 25 Mg Tablet) 25 mg PO BID [facility]; Protocol Last Admin: 12/19/24 08:22 Dose: 25 mg Documented By: GABY Omeprazole (Omeprazole 20 Mg Capsule.) 20 mg PO DAILY@0630 [facility] Last Admin: 12/19/24 05:50 Dose: 20 mg Documented By: FATUMA Senna (Sennosides 8.6 Mg Tablet) 17.2 mg PO BID PRN PRN Reason: Constipation Last Admin: 12/19/24 08:28 Dose: 17.2 mg Documented By: GABY Sodium Chloride (0.9 % Sodium Chloride Flush 3 Ml Syringe) 3 ml IVFLUSH QSHIFT [facility] Last Admin: 12/19/24 08:23 Dose: 3 ml Documented By: GABY Labs 12/18/24 05:34 12/18/24 05:34 Labs: Laboratory Results - last 24 hr 12/18/24 12/18/24 12/18/24 12:56 17:03 20:02 POC Glucose 273 H 367 H* 315 H 12/19/24 07:46 POC Glucose 244 H Microbiology Microbiology Results: Microbiology 12/18/24 05:34 Blood Culture - Preliminary Blood - Venous No growth after 24 hours. 12/18/24 05:34 Blood Culture - Preliminary Blood - Venous No growth after 24 hours. Assessment and Plan (1) COPD exacerbation: Status: Acute (2) Chronic lung disease: Status: Acute Plan 74-year-old male with a past medical history of HTN, HLD, CAD, liver cirrhosis, obesity, COPD on 3 L of home oxygen, anemia, anxiety, depression, chronic lung disease; presented to the hospital today with a chief complaint of shortness of breath. Admitted for following Acute and chronic hypoxic respiratory failure d/t Acute COPD exacerbation, on chronic supplemental O2 at 3 L Bronchodilators by Neb IV corticosteroid to PO starting tomorrow Empiric Azithromycin O2 sat goal of [address] chest No PE, Small area of ground-glass opacity left lower lobe. Consider three-month follow-up. ? Cholangitis/cholecystitis: CT scan showed abnormal gallbladder with pneumobilia-suspected choledocholithiasis/cholecystitis/cholangitis Clinically has no evidence of cholecysitis, has history of sphincterotomy so pneumobilia is expected. General surgery and GI seen no intervention LFTs are normal..DC ceftriaxone Syncope: Patient reports having couple episodes of syncope-appears vasovagal versus seizure duration. Orthostatic vitals Telemetry Echocardiogram Holter at the time of discharge Cardiology follow-up Diabetes with hyperglycemia, Insulin sliding scale resume Glipizide, hold metformin d/t dye use DVT prophylaxis: Lovenox Code status: Full code Ok to transfer to [facility] Stroke Does the patient have a stroke diagnosis?: No VTE Prior VTE?: No VTE Risk Level:: Medical - moderate - high VTE Device Contraindication: Treatment Not Indicated VTE Drug Contraindication: N/A - Med Ordered
[2024-12-19 12:03] LABS: Glucose, Whole Blood 359 mg/dL (60-115)
[2024-12-19 16:35] LABS: Glucose, Whole Blood 189 mg/dL (60-115)
[2024-12-19 20:31] LABS: Glucose, Whole Blood 221 mg/dL (60-115)
[2024-12-20] VITALS (10 sets, daily range): BP systolic 101–146; BP diastolic 56–78; PULSE 60–92; RESP 16–20; TEMP 36–36.8; O2SAT 93–97
[2024-12-20 07:05] LABS: Glucose, Whole Blood 114 mg/dL (60-115)
[2024-12-20] MEDS: Fluticasone/Vilanterol 200/25 BLST.W.DEV 1 PUFF INHALE (07:51)
[2024-12-20] MEDS: Calcium + Vitamin D 250 MG TABLET 500 MG PO (08:22)
[2024-12-20] MEDS: 0.9 % Sodium Chloride Flush 3 ML SYRINGE IVFLUSH ×3 (08:23→20:30)
--- NOTE | 2024-12-20 09:57 | PM.DS ---
DS: Providers Provider Date of Service: 12/20/24 Date of admission: 12/17/24 23:29 Date of discharge: 12/20/24 Primary care physician: Unknown Physician Consults: 12/18/24 04:33 Consult to Gastroenterology Routine Consulting Provider: [facility] [place] Gastroenterology Services Reason for consultation: cholangitis 12/18/24 04:55 Consult to General Surgery Routine Consulting Provider: [facility] [place] General Surgeons Reason for consultation: ? Cholecystitis DS: Diagnosis Discharge Diagnosis (1) COPD exacerbation: Status: Acute (2) Chronic lung disease: Status: Acute DS: Summary Hospital Course Hospital Course: Admission hpi Chief Complaint: sob 74-year-old male with a past medical history of HTN, HLD, CAD, liver cirrhosis, obesity, COPD on 3 L of home oxygen, anemia, anxiety, depression, chronic lung disease; presented to the hospital today with a chief complaint of shortness of breath. Patient reports over the past couple days he has been having shortness of breath. Denies any cough. Denies any sputum production. Also mentioned that while he was on the commode he slumped over and probably lost consciousness. Denies any fall or injury. Denies any chest pain or palpitations. Review of all other systems is negative except mentioned above ER course: Per ER team, patient on presentation noted to be short of breath, wheezing; concern for possible mild COPD exacerbation; given prednisone; when patient was walked with his oxygen patient desaturated to 80%; EKG nonischemic. Hospital course: 74-year-old male with a past medical history of HTN, HLD, CAD, liver cirrhosis, obesity, COPD on 3 L of home oxygen, anemia, anxiety, depression, chronic lung disease; presented to the hospital today with a chief complaint of shortness of breath and found to have copd with acute exacerbation with acute and chronic hypoxic respiratory failure. CXR showed no pneumonia.. He has been treated with with IV solumedrol, bronchodilators by Neb and antibiotics with Ceftriaxone and Azithromycin. He had CT of the chest showing no PE. Overall he's feelinb better now his repiratory status has much improved and he feels comfortable going home. Will be discharged to complete prednisone maria r, and complete azithro and continue with home O2 ? Cholangitis/cholecystitis: CT scan showed abnormal gallbladder with pneumobilia-suspected choledocholithiasis/cholecystitis/cholangitis Clinically has no evidence of cholecysitis, has history of sphincterotomy so pneumobilia is expected. General surgery and GI seen no intervention LFTs are normal so ceftriaxone was discontinued Syncope: Patient reports having couple episodes of syncope-appears vasovagal versus seizure duration. Orthostatic vitals Telemetry Echocardiogram --- 1. Normal LV ejection fraction of 60 65% with impaired relaxation filling pattern 2. Mild aortic stenosis 3. Normal RV systolic pressure 4. No gross pericardial effusion Holter at the time of discharge Diabetes with hyperglycemia likely due to steroid, and required additional insulin but now is controlled resume Glipizide, hold metformin d/t dye use Time Attestation Discharge Coordination Time (in mins): 35 Quality: Safe Use of Opioids Does Pt have an Active Cancer Diagnosis on the Problem List?: No Quality: Stroke Does the patient have a stroke diagnosis?: No Physical Exam Vital Signs: Vital Signs: Last Vital Signs Temp 98.2 F 12/20/24 07:40 Pulse 81 12/20/24 08:22 Resp 18 12/20/24 07:54 BP 116/61 12/20/24 08:22 Pulse Ox 94 12/20/24 07:40 O2 Del Method Nasal Cannula 12/20/24 07:40 O2 Flow Rate 2 12/20/24 07:40 Oxygen Flow Rate 3 12/17/24 15:53 BMI result Body Mass Index 32.5 DS: Data Data Completed and Pending Completed studies during hospitalization [Text1]: Procedures Assistance with Respiratory Ventilation, Less than 24 Consecutive Hours, Continuous Positive Airway Pressure (11/30/24) Excision of Rectum, Via Natural or Artificial Opening Endoscopic, Diagnostic (05/26/24) Excision of Sigmoid Colon, Via Natural or Artificial Opening Endoscopic, Diagnostic (05/26/24) Excision of Transverse Colon, Via Natural or Artificial Opening Endoscopic, Diagnostic (05/26/24) Irrigation of Lower GI using Irrigating Substance, Via Natural or Artificial Opening (07/29/22) Labs on day of discharge: Laboratory Results - last 24 hr 12/19/24 12/19/24 12/19/24 11:49 16:29 20:21 POC Glucose 359 H* 189 H 221 H 12/20/24 07:01 POC Glucose 114 Preliminary micro results at discharge 12/18/24 05:34 Blood Culture - Preliminary Blood - Venous No growth after 48 hours. 12/18/24 05:34 Blood Culture - Preliminary Blood - Venous No growth after 48 hours. Discharge Plan Discharge Anticipated Discharge Date/Time: 12/20/24 09:57 Patient Disposition: Home, Self-Care Discharge Diagnosis: copd exacerbation Referrals: Physician,Unknown J [Primary Care Provider, Medical] - 1 Week Discharge Medications: New prednisone 20 mg tablet 40 mg PO DAILY Qty: 4 0RF Continued (DME) blood-glucose meter [FreeStyle Lite Meter] Kit See Rx Instructions .Route Qty: 1 0RF Rx Instructions: As directed (DME) lancets [FreeStyle Lancets] 28 gauge misc See Rx Instructions .Route Qty: 100 1RF Rx Instructions: Test blood sugar twice (DME) FreeStyle Lite Strips Strip See Rx Instructions .Route Qty: 50 7RF Rx Instructions: check fasting glucose once a day AC metformin 1,000 mg tablet 1,000 mg PO BID Qty: 180 1RF atorvastatin 80 mg tablet 80 mg PO BEDTIME Qty: 90 1RF omeprazole 20 mg capsule,delayed release(DR/EC) 20 mg PO DAILY@0630 Qty: 30 1RF glipizide 5 mg tablet 5 mg PO BID Qty: 270 4RF ipratropium-albuterol 0.5 mg-3 mg(2.5 mg base)/3 mL solution for nebulization 3 ml inhalation Q6H PRN (Reason: wheezing) Qty: 180 2RF escitalopram oxalate 20 mg tablet 20 mg PO DAILY Qty: 90 3RF lorazepam [Ativan] 1 mg tablet 0.5 mg PO BID PRN (Reason: anxiety) Qty: 30 0RF Rx Instructions: Patient may request partial fill metoprolol tartrate 25 mg tablet 25 mg PO BID Qty: 180 1RF budesonide-formoterol [Symbicort] 160-4.5 mcg/actuation Hfa Aerosol Inhaler 2 puff INHALATION DAILY PRN (Reason: Shortness Of Breath Or Wheezing) calcium carbonate-vitamin D3 600 mg-10 mcg (400 unit) tablet 1 tab PO DAILY azithromycin 500 mg tablet 500 mg PO MOWEFR sennosides [senna] 8.6 mg tablet 17.2 mg PO BID PRN (Reason: constipation) albuterol sulfate [Ventolin HFA] 90 mcg/actuation HFA aerosol inhaler 2 puff inhalation Q4H PRN (Reason: shortness of breath or wheezing) aspirin 81 mg Tablet 81 mg PO DAILY lactulose 10 gram/15 mL solution 10 g PO BID PRN (Reason: Constipation) (DME) Oxygen Home Use Kit See Rx Instructions .Route Rx Instructions: As directed Diet: Diabetic diet Activity on Discharge: As tolerated Stand Alone Forms: Patient Portal Discharge page Print Language: Guatemalan Care Plan Goals: recovery from copd exacerbation Health Concerns: copd exacerbation Plan of Treatment: take prednisone as directed, take inhalers as before follow up with your doctor in a week, call for appointment Assessment: see above
[2024-12-20 11:11] LABS: Glucose, Whole Blood 213 mg/dL (60-115)
[2024-12-20] MEDS: Milk of Magnesia 30 ML ORAL.SUSP PO (13:14)
[2024-12-20] MEDS: Bumetanide 1 MG/4 ML VIAL IVPUSH (14:58)
[2024-12-20 16:27] LABS: Glucose, Whole Blood 268 mg/dL (60-115)
[2024-12-20 20:15] LABS: Glucose, Whole Blood 274 mg/dL (60-115)
[2024-12-21] VITALS (10 sets, daily range): BP systolic 100–134; BP diastolic 55–65; PULSE 62–83; RESP 16–20; TEMP 36.3–36.5; O2SAT 90–96
[2024-12-21 07:04] LABS: B Type Natriuretic Peptide 44 pg/mL (<100)
[2024-12-21 07:05] LABS: Glucose, Whole Blood 152 mg/dL (60-115)
[2024-12-21 07:16] LABS: Anion Gap 10 (12-20); Blood Urea Nitrogen 28 mg/dL (9-16); Calcium 9.1 mg/dL (8.4-10.2); Carbon Dioxide 44 mmol/L (22-29); Chloride 92 mmol/L (96-108); Creatinine Clr Calc Pharmacy 47.9; Estimated Glomerular Filt Rate 48; Potassium 4.0 mmol/L (3.3-5.1); Sodium 142 mmol/L (135-145)
[2024-12-21] MEDS: 0.9 % Sodium Chloride Flush 3 ML SYRINGE IVFLUSH ×3 (07:46→20:22)
[2024-12-21] MEDS: Calcium + Vitamin D 250 MG TABLET 500 MG PO (07:47)
[2024-12-21] MEDS: Fluticasone/Vilanterol 200/25 BLST.W.DEV 1 PUFF INHALE (07:52)
[2024-12-21 10:57] LABS: Glucose, Whole Blood 254 mg/dL (60-115)
--- NOTE | 2024-12-21 11:05 | PM.CNNEP ---
History of Present Illness Reason for Consult Consult date: 12/21/24 Chief Complaint Chief complaint: COPD History of Present Illness Narrative: 74 y/o male with HTN, HLD, CAD, liver cirrhosis, obesity, COPD on 3L home O2, anemia, anxiety, depression. Presented 12/17 with shortness of breath. Was treated for COPD exacerbation. Nephrology consulted for DANNA 12/18 creatinine 1.04 12/21 creatinine 1.43 patient had CTA with IV contrast on 12/18 also has some LE swelling, pt states less swelling today than yesterday after diuretic states his breathing feels normal/comfortable denies pain, denies urinary symptoms. Denies other concerns/complaints. Review of Systems Review of Systems Yes all other systems are reviewed and are negative [facility] Past Medical History Medical History Positive colorectal cancer screening using Cologuard test HTN (hypertension) History of adenomatous polyp of colon Acute on chronic respiratory failure with hypoxia and hypercapnia Respiratory failure with hypoxia and hypercapnia Bilateral carotid artery disease CAD (coronary artery disease) Anxiety and depression Anemia Chronic respiratory failure with hypoxia and hypercapnia Radiation fibrosis of lung Dyslipidemia History of pneumonia Bacteremia due to Enterococcus COPD, severe Diabetes mellitus with hyperglycemia, without long-term current use of insulin Urinary incontinence Asthma Lung cancer Skin cancer Family History Family History Father Medical history non-contributory Mother Medical history non-contributory Unknown family medical history Lung collapse Brother No problems noted. Brother No problems noted. Son Substance use disorder Son No problems noted. Daughter No problems noted. Sister No problems noted. Sister No problems noted. Sister No problems noted. Sister No problems noted. Other HTN (hypertension) Surgical History Surgical History Hx of heart artery stent History of esophagogastroduodenoscopy (EGD) Hx of colonoscopy Social History Social History Household Members: Spouse Household Members Other:: grandson Housing: House Are you a primary md do resident urgent care to a significant other at home: No Do you presently have visiting nurse or other home services: No Alcohol intake: never Comment: refusing all fall risk interventions Patient Tobacco Use Status: Former Tobacco user Tobacco use type: Cigarette e-Cigarette/Vaping Use: Never Used Advance Directives Date on File: 06/08/22 service: No Current occupational status: retired Cognitive needs: No Hearing needs: No Vision needs: No Meds Allergies Allergy/AdvReac Type Severity Reaction Status Date / Time fluticasone furoate (From Allergy Intermediate Rash Verified 12/17/24 15:59 Trelegy Ellipta) vilanterol (From Trelegy Allergy Intermediate Rash Verified 12/17/24 15:59 Ellipta) umeclidinium (Incruse Allergy Unknown Hives Verified 12/17/24 15:59 Ellipta) furosemide (From Lasix) AdvReac Intermediate Hallucinati Verified 12/17/24 15:59 ons Active Medications: Current Medications Acetaminophen (Acetaminophen 325 Mg Tablet) 650 mg PO Q6H PRN PRN Reason: Pain, Mild 1-3,fever,headache Albuterol/Ipratropium (Albuterol/Iprat 2.5/0.5mg 3 Ml Ampul.Neb) 3 ml INHALE Q4H PRN PRN Reason: Shortness of Breath/Wheezing Last Admin: 12/18/24 22:02 Dose: 3 ml Aspirin (Aspirin 81 Mg Tab.Chew) 81 mg PO DAILY [facility] Last Admin: 12/21/24 07:47 Dose: 81 mg Atorvastatin Calcium (Atorvastatin Calcium 80 Mg Tablet) 80 mg PO BEDTIME DUTCH Last Admin: 12/20/24 20:29 Dose: 80 mg Azithromycin (Azithromycin 250 Mg Tablet) 250 mg PO Q24H [facility] Last Admin: 12/21/24 11:32 Dose: 250 mg Calcium Carbonate (Calcium Carbonate 750 Mg Tab.Chew) 750 mg PO Q4H PRN PRN Reason: Heartburn Calcium Carbonate/Cholecalciferol (Calcium + Vitamin D 250 Mg Tablet) 500 mg PO DAILY [facility] Last Admin: 12/21/24 07:47 Dose: 500 mg Dextrose (Dextrose 50 % 25 Gm/50 Ml Syringe) 25 gm IVPUSH Q15M PRN; Protocol PRN Reason: per Hypoglycemia Standing Ord. Enoxaparin Sodium (Enoxaparin Sodium 40 Mg/0.4 Ml Syringe) 40 mg SUBCUT Q24H [facility] Last Admin: 12/21/24 07:49 Dose: Not Given Escitalopram Oxalate (Escitalopram Oxalate 20 Mg Tablet) 20 mg PO DAILY [facility] Last Admin: 12/21/24 07:48 Dose: 20 mg Fluticasone/Vilanterol (Fluticasone/Vilanterol 200/25 Blst.W.Dev) 1 puff INHALE RDAILY [facility] Last Admin: 12/21/24 07:52 Dose: 1 puff Glipizide (Glipizide 5 Mg Tablet) 5 mg PO BIDAC [facility] Last Admin: 12/21/24 07:47 Dose: 5 mg Glucose (Glucose Gel 15 Gm Gel..Gram.) 15 gm PO Q15M PRN; Protocol PRN Reason: per Hypoglycemia Standing Ord. Insulin Human Lispro (Insulin Lispro 100 Unit/Ml 3 Ml Vial) 0 unit SUBCUT QIDACHS [facility]; Protocol Last Admin: 12/21/24 11:20 Dose: 6 unit Lactulose (Lactulose 20 Gm/30 Ml Solution) 10 gm PO BID PRN PRN Reason: Constipation Last Admin: 12/21/24 08:23 Dose: 10 gm Lorazepam (Lorazepam 0.5 Mg Tablet) 0.5 mg PO BID PRN PRN Reason: Anxiety Last Admin: 12/20/24 22:26 Dose: 0.5 mg Magnesium Hydroxide (Milk Of Magnesia 30 Ml Oral.Susp) 30 ml PO DAILY PRN PRN Reason: Constipation Last Admin: 12/20/24 13:14 Dose: 30 ml Melatonin (Melatonin 3 Mg Tablet) 6 mg PO BEDTIME PRN PRN Reason: Insomnia Metformin HCl (Metformin Hcl 1,000 Mg Tablet) 1,000 mg PO BIDWM [facility] Last Admin: 12/21/24 07:48 Dose: 1,000 mg Metoprolol Tartrate (Metoprolol Tartrate 25 Mg Tablet) 25 mg PO BID [facility]; Protocol Last Admin: 12/21/24 07:47 Dose: 25 mg Omeprazole (Omeprazole 20 Mg Capsule.Dr) 20 mg PO DAILY@0630 [facility] Last Admin: 12/21/24 05:49 Dose: 20 mg Prednisone (Prednisone 20 Mg Tablet) 40 mg PO DAILY [facility] Last Admin: 12/21/24 07:47 Dose: 40 mg Senna (Sennosides 8.6 Mg Tablet) 17.2 mg PO BID PRN PRN Reason: Constipation Last Admin: 12/19/24 08:28 Dose: 17.2 mg Sodium Chloride (0.9 % Sodium Chloride Flush 3 Ml Syringe) 3 ml IVFLUSH QSHIFT [facility] Last Admin: 12/21/24 07:46 Dose: 3 ml Home Medications ?Medication ?Instructions ?Recorded ?Confirmed ?Last Taken ?Type budesonide-formoterol HFA 160 2 puff inhalation DAILY PRN 03/14/21 12/18/24 11/29/24 History mcg-4.5 mcg/actuation aerosol Shortness Of Breath Or Wheezing inhaler (Symbicort) calcium 600 mg (as 1 tab PO DAILY 08/04/21 12/18/24 12/17/24 History carbonate)-vitamin D3 10 mcg (400 unit) tablet Oxygen Home Use 06/14/22 12/08/24 Unknown History albuterol sulfate 90 mcg/actuation 2 puff inhalation Q4H PRN 09/24/24 12/18/24 09/23/24 21:00 History aerosol inhaler (Ventolin HFA) shortness of breath or wheezing aspirin 81 mg tablet 81 mg PO DAILY 11/11/24 12/18/24 12/17/24 History lactulose 10 gram/15 mL oral 10 g PO BID PRN Constipation 11/11/24 12/18/24 Unknown History solution azithromycin 500 mg tablet 500 mg PO MOWEFR 12/18/24 12/18/24 12/14/24 History sennosides 8.6 mg tablet (senna) 17.2 mg PO BID PRN constipation 12/18/24 12/18/24 12/17/24 History Physical Exam Vital Signs: Last Vital Signs Temp 97.3 F 12/21/24 07:14 Pulse 66 12/21/24 07:54 Resp 16 12/21/24 07:54 BP 116/63 12/21/24 07:47 Pulse Ox 90 L 12/21/24 07:14 O2 Del Method Nasal Cannula 12/21/24 07:14 O2 Flow Rate 2 12/21/24 07:14 Oxygen Flow Rate 3 12/17/24 15:53 BMI result Body Mass Index 32.5 Const General: no acute distress, alert and awake Resp Effort & Inspection: normal respiratory effort and able to speak in complete sentences Auscultation: clear to auscultation bilaterally Cardio Rate: regular rate Rhythm: regular rhythm Heart sounds: S1 normal heart sound present and S2 normal heart sound present GI Palpation (GI): Soft to palpation and nontender General: Yes no CVA tenderness Back/Spine/Pelvis Back: no CVA tenderness Skin Rashes: no rashes Extrem General: Yes edema (+2 BLE edema, pitting. ) Results Lab Results 12/18/24 05:34 12/21/24 06:11 Lab results: Chemistry 12/21/24 06:11 Sodium 142 Potassium 4.0 Carbon Dioxide 44 H* BUN 28 H Creatinine 1.43 H Calcium 9.1 D Assessment and Plan (1) DANNA (acute kidney injury): Status: Acute Plan New, most likely contrast nephropathy from initial CTA hypervolemia may also be contributing recommend diuresing as clinically indicated should re-check creatinine in a.m. to ensure stability/trending downward before discharging home if creatinine plateaus or improves, will follow up with patient in outpatinet renal clinic avoid nephrotoxins regular blood pressure checks monitor I&Os, daily weights continue supportive care Discussed with Dr Nugent. Procedures Date of Service Date of Service: 12/21/24
--- NOTE | 2024-12-21 13:09 | HO.PM.IMPN ---
Subjective Subjective Date of Service: 12/21/24 Interval History: f/u on copd exacerbation Breathing is better, but has some perihperhal edma and voided alot with iv Lasi yesterday. Serum cratine is up today, likely related to contrast given for CTA Physical Exam Vital Signs: Vital Signs: Last Vital Signs Temp 97.3 F 12/21/24 07:14 Pulse 66 12/21/24 07:54 Resp 16 12/21/24 07:54 BP 116/63 12/21/24 07:47 Pulse Ox 90 L 12/21/24 07:14 O2 Del Method Nasal Cannula 12/21/24 07:14 O2 Flow Rate 2 12/21/24 07:14 Oxygen Flow Rate 3 12/17/24 15:53 BMI result Body Mass Index 32.5 Const: Other: General: AO X 3, no acute distress Resp: CTA bilateral, normal breathing pattern CVS: S1,S2,RRR, 2 + pitting edema GI: +BS, NT, no distention Skin: No rash Neuro: motor grossly intact Psych: appropriate affect Objective Data Active Medications Acetaminophen (Acetaminophen 325 Mg Tablet) 650 mg PO Q6H PRN PRN Reason: Pain, Mild 1-3,fever,headache Albuterol/Ipratropium (Albuterol/Iprat 2.5/0.5mg 3 Ml Ampul.Neb) 3 ml INHALE Q4H PRN PRN Reason: Shortness of Breath/Wheezing Last Admin: 12/18/24 22:02 Dose: 3 ml Documented By: MADI Aspirin (Aspirin 81 Mg Tab.Chew) 81 mg PO DAILY [facility] Last Admin: 12/21/24 07:47 Dose: 81 mg Documented By: KAELA Atorvastatin Calcium (Atorvastatin Calcium 80 Mg Tablet) 80 mg PO BEDTIME [facility] Last Admin: 12/20/24 20:29 Dose: 80 mg Documented By: ABDULLAHI Azithromycin (Azithromycin 250 Mg Tablet) 250 mg PO Q24H [facility] Last Admin: 12/21/24 11:32 Dose: 250 mg Documented By: KAELA Calcium Carbonate (Calcium Carbonate 750 Mg Tab.Chew) 750 mg PO Q4H PRN PRN Reason: Heartburn Calcium Carbonate/Cholecalciferol (Calcium + Vitamin D 250 Mg Tablet) 500 mg PO DAILY [facility] Last Admin: 12/21/24 07:47 Dose: 500 mg Documented By: KAELA Dextrose (Dextrose 50 % 25 Gm/50 Ml Syringe) 25 gm IVPUSH Q15M PRN; Protocol PRN Reason: per Hypoglycemia Standing Ord. Enoxaparin Sodium (Enoxaparin Sodium 40 Mg/0.4 Ml Syringe) 40 mg SUBCUT Q24H [facility] Last Admin: 12/21/24 07:49 Dose: Not Given Documented By: KAELA Non-Admin Reason: Patient Refused Escitalopram Oxalate (Escitalopram Oxalate 20 Mg Tablet) 20 mg PO DAILY [facility] Last Admin: 12/21/24 07:48 Dose: 20 mg Documented By: KAELA Fluticasone/Vilanterol (Fluticasone/Vilanterol 200/25 Blst.W.Dev) 1 puff INHALE RDAILY [facility] Last Admin: 12/21/24 07:52 Dose: 1 puff Documented By: SCCELINALEl Glipizide (Glipizide 5 Mg Tablet) 5 mg PO BIDAC [facility] Last Admin: 12/21/24 07:47 Dose: 5 mg Documented By: KAELA Glucose (Glucose Gel 15 Gm Gel..Gram.) 15 gm PO Q15M PRN; Protocol PRN Reason: per Hypoglycemia Standing Ord. Insulin Human Lispro (Insulin Lispro 100 Unit/Ml 3 Ml Vial) 0 unit SUBCUT QIDACHS [facility]; Protocol Last Admin: 12/21/24 11:20 Dose: 6 unit Documented By: KAELA Lactulose (Lactulose 20 Gm/30 Ml Solution) 10 gm PO BID PRN PRN Reason: Constipation Last Admin: 12/21/24 08:23 Dose: 10 gm Documented By: KAELA Lorazepam (Lorazepam 0.5 Mg Tablet) 0.5 mg PO BID PRN PRN Reason: Anxiety Last Admin: 12/20/24 22:26 Dose: 0.5 mg Documented By: ABDULLAHI Magnesium Hydroxide (Milk Of Magnesia 30 Ml Oral.Susp) 30 ml PO DAILY PRN PRN Reason: Constipation Last Admin: 12/20/24 13:14 Dose: 30 ml Documented By: KAELA Melatonin (Melatonin 3 Mg Tablet) 6 mg PO BEDTIME PRN PRN Reason: Insomnia Metformin HCl (Metformin Hcl 1,000 Mg Tablet) 1,000 mg PO BIDWM [facility] Last Admin: 12/21/24 07:48 Dose: 1,000 mg Documented By: KAELA Metoprolol Tartrate (Metoprolol Tartrate 25 Mg Tablet) 25 mg PO BID [facility]; Protocol Last Admin: 12/21/24 07:47 Dose: 25 mg Documented By: KAELA Omeprazole (Omeprazole 20 Mg Capsule.Dr) 20 mg PO DAILY@0630 [facility] Last Admin: 12/21/24 05:49 Dose: 20 mg Documented By: ABDULLAHI Prednisone (Prednisone 20 Mg Tablet) 40 mg PO DAILY [facility] Last Admin: 12/21/24 07:47 Dose: 40 mg Documented By: KAELA Senna (Sennosides 8.6 Mg Tablet) 17.2 mg PO BID PRN PRN Reason: Constipation Last Admin: 12/19/24 08:28 Dose: 17.2 mg Documented By: CATALINAAV Sodium Chloride (0.9 % Sodium Chloride Flush 3 Ml Syringe) 3 ml IVFLUSH QSHIFT [facility] Last Admin: 12/21/24 07:46 Dose: 3 ml Documented By: KAELA Labs 12/18/24 05:34 12/21/24 06:11 Labs: Laboratory Results - last 24 hr 12/20/24 12/20/24 12/21/24 16:23 20:08 06:11 Hold Purple Top SEE NOTE Anion Gap 10 L Estim Creat Clear Calc 47.9 Estimated GFR 48 POC Glucose 268 H 274 H Random Glucose 153 H Calcium 9.1 D B-Natriuretic Peptide 44 12/21/24 12/21/24 07:01 10:54 Hold Purple Top Anion Gap Estim Creat Clear Calc Estimated GFR POC Glucose 152 H 254 H Random Glucose Calcium B-Natriuretic Peptide Microbiology Microbiology Results: Microbiology 12/18/24 05:34 Blood Culture - Preliminary Blood - Venous No growth after 24 hours. 12/18/24 05:34 Blood Culture - Preliminary Blood - Venous No growth after 24 hours. Assessment and Plan (1) COPD exacerbation: Status: Acute (2) Chronic lung disease: Status: Acute Plan 74-year-old male with a past medical history of HTN, HLD, CAD, liver cirrhosis, obesity, COPD on 3 L of home oxygen, anemia, anxiety, depression, chronic lung disease; presented to the hospital today with a chief complaint of shortness of breath. Admitted for following Acute and chronic hypoxic respiratory failure d/t Acute COPD exacerbation, on chronic supplemental O2 at 3 L Bronchodilators by Neb iv solu change to PO prednisone Empiric Azithromycin O2 sat goal of [address] chest No PE, Small area of ground-glass opacity left lower lobe. Consider three-month follow-up. ? Cholangitis/cholecystitis: CT scan showed abnormal gallbladder with pneumobilia-suspected choledocholithiasis/cholecystitis/cholangitis Clinically has no evidence of cholecysitis, has history of sphincterotomy so pneumobilia is expected. General surgery and GI seen no intervention LFTs are normal..DC ceftriaxone Syncope: Patient reports having couple episodes of syncope-appears vasovagal no evidence of seizure Monitored on tele without arrythmia Echocardiogram normal EF Can follow up with cardiology on outpatient basis RICH, likely Contrast induced Nephropathy (ELOISA) acute onc chronic metabolic alkalosis d/t copd, diamox 250 x 1 and recheck tomorrow Diabetes with hyperglycemia, Insulin sliding scale resume Glipizide, hold metformin d/t rich DVT prophylaxis: Lovenox Code status: Full code Ok to transfer to med surg [facility] Stroke Does the patient have a stroke diagnosis?: No VTE Prior VTE?: No VTE Risk Level:: Medical - moderate - high VTE Device Contraindication: Treatment Not Indicated VTE Drug Contraindication: N/A - Med Ordered
[2024-12-21 14:20] LABS: Appearance Urine Clear; Glucose Urine UA 250 mg/dL (Negative); PH 7.5 (5.0-9.0); Specific Gravity - Urine 1.010 (1.005-1.025); UMIC TRIGGER UA YES
--- NOTE | 2024-12-21 15:15 | MHC.CM.PN ---
Per rounds, pt. is still acute, requiring further tx for acute on chronic respiratory failure with hypoxia and COPD.
[2024-12-21 15:56] LABS: Glucose, Whole Blood 344 mg/dL (60-115)
[2024-12-21 19:58] LABS: Glucose, Whole Blood 291 mg/dL (60-115)
[2024-12-22 03:15] VITALS: BP 123/60; PULSE 65; RESP 18; TEMP 36; O2SAT 93
--- NOTE | 2024-12-22 03:22 | PC.NURSE ---
Pt refusing CPAP at this time. Pt on 2L NC, O2 stat 93%. Per pt, he is comfortable.
[2024-12-22 06:36] LABS: Anion Gap 11 (12-20); Blood Urea Nitrogen 25 mg/dL (9-16); Calcium 9.0 mg/dL (8.4-10.2); Carbon Dioxide 37 mmol/L (22-29); Chloride 98 mmol/L (96-108); Creatinine Clr Calc Pharmacy 50.8; Estimated Glomerular Filt Rate 52; Potassium 3.6 mmol/L (3.3-5.1); Sodium 142 mmol/L (135-145)
[2024-12-22 07:07] VITALS: BP 120/59; PULSE 71; RESP 18; O2SAT 92
[2024-12-22 07:26] LABS: Glucose, Whole Blood 118 mg/dL (60-115)
[2024-12-22] MEDS: Calcium + Vitamin D 250 MG TABLET 500 MG PO (08:40)
[2024-12-22] MEDS: 0.9 % Sodium Chloride Flush 3 ML SYRINGE IVFLUSH ×3 (08:41→20:15)
--- NOTE | 2024-12-22 09:53 | P.PNNP_ITS ---
Subjective Subjective Date of Service: 12/22/24 Interval history: Here with COPD exacerbation. Following for DANNA. Creatinine down to 1.35 today from 1.43 yesterday. patient states he feels well. Breathing is stable and feels at baseline. No pain, no urinary symptoms. Continues with LE swelling, pt feels it has improved. Physical Exam 2 Vital Signs: Vital Signs: Last Vital Signs Temp 96.8 F 12/22/24 03:15 Pulse 71 12/22/24 07:07 Resp 18 12/22/24 07:07 BP 120/59 L 12/22/24 07:07 Pulse Ox 92 12/22/24 07:07 O2 Del Method Nasal Cannula 12/22/24 07:07 O2 Flow Rate 2 12/22/24 07:07 Oxygen Flow Rate 3 12/17/24 15:53 BMI result Body Mass Index 32.5 Const: General: no acute distress, alert and awake Resp: Effort & Inspection: normal respiratory effort and able to speak in complete sentences Auscultation: clear to auscultation bilaterally Cardio: Rate: regular rate Rhythm: regular rhythm Heart sounds: S1 normal heart sound present and S2 normal heart sound present GI: Palpation (GI): Soft to palpation and nontender : General: Yes no CVA tenderness Back/Spine/Pelvis: Back: no CVA tenderness Skin: Rashes: no rashes Extrem: General: Yes edema (+2 BLE edema, pitting. ) Objective Data Labs 12/18/24 05:34 12/22/24 05:25 Labs: Laboratory Results - last 24 hr 12/21/24 12/21/24 12/21/24 10:54 13:50 15:48 Hold Purple Top Sodium Potassium Chloride Carbon Dioxide Anion Gap BUN Creatinine Estim Creat Clear Calc Estimated GFR POC Glucose 254 H 344 H Random Glucose Calcium Urine Color Yellow Urine Appearance Clear Urine pH 7.5 Ur Specific [place] 1.010 Urine Protein Trace Urine Glucose (UA) 250 H Urine Ketones Negative Urine Blood Trace H Urine Nitrite Negative Ur Leukocyte Esterase Moderate (2+) H Urine RBC 0-2 Urine WBC 21-50 H Ur Squamous Epith Cells 0-2 Urine Bacteria None Seen Hyaline Casts 0-2 Ur Random Chloride 28.0 12/21/24 12/22/24 12/22/24 19:55 05:25 06:13 Hold Purple Top SEE NOTE Sodium 142 Potassium 3.6 Chloride 98 Carbon Dioxide 37 H Anion Gap 11 L BUN 25 H Creatinine 1.35 Estim Creat Clear Calc 50.8 Estimated GFR 52 POC Glucose 291 H Random Glucose 128 H Calcium 9.0 Urine Color Urine Appearance Urine pH Ur Specific [place] Urine Protein Urine Glucose (UA) Urine Ketones Urine Blood Urine Nitrite Ur Leukocyte Esterase Urine RBC Urine WBC Ur Squamous Epith Cells Urine Bacteria Hyaline Casts Ur Random Chloride 12/22/24 07:11 Hold Purple Top Sodium Potassium Chloride Carbon Dioxide Anion Gap BUN Creatinine Estim Creat Clear Calc Estimated GFR POC Glucose 118 H Random Glucose Calcium Urine Color Urine Appearance Urine pH Ur Specific [place] Urine Protein Urine Glucose (UA) Urine Ketones Urine Blood Urine Nitrite Ur Leukocyte Esterase Urine RBC Urine WBC Ur Squamous Epith Cells Urine Bacteria Hyaline Casts Ur Random Chloride Microbiology Microbiology Results: Microbiology 12/18/24 05:34 Blood - Venous Blood Culture - Preliminary No growth after 48 hours. 12/18/24 05:34 Blood - Venous Blood Culture - Preliminary No growth after 48 hours. Procedures Date of Service Date of Service: 12/22/24 Assessment & Plan Assessment and plan (1) DANNA (acute kidney injury): Status: Acute Plan DANNA from contrast nephropathy from initial CTA hypervolemia may also be contributing improving. recommend diuresis as clinically indicated patient is ok for discharge from a renal standpoint, will arrange for outpatient follow up upon discharge. avoid nephrotoxins continue supportive care Discussed with Dr Nugent. Time Spent With Patient Time: Total time managing care of this patient today ____ minutes. Progress Note: Quality Stroke Does the patient have a stroke diagnosis?: No
[2024-12-22] MEDS: Fluticasone/Vilanterol 200/25 BLST.W.DEV 1 PUFF INHALE (10:44)
[2024-12-22 11:35] LABS: Glucose, Whole Blood 273 mg/dL (60-115)
[2024-12-22 15:55] VITALS: BP 114/56; PULSE 70; RESP 18; TEMP 36.8; O2SAT 95
[2024-12-22 16:12] LABS: Glucose, Whole Blood 329 mg/dL (60-115)
--- NOTE | 2024-12-22 16:24 | HO.PM.IMPN ---
Subjective Subjective Date of Service: 12/22/24 Interval History: Patient feels well today. His breathing has improved, however still has bilateral lower extremity edema Patient remains on oxygen, and endorses improvement from IV Bumex yesterday. Review of Systems Review of Systems: Yes all other systems are reviewed and are negative Physical Exam Exam: Exam: General: A&O x3, oriented to time place person and situation, comfortable, no pain Cardiac: S1, S2 auscultated with no S3/4, no MRG. Well perfused. Elevated JVP identified Respiratory: Decreased inspiratory and expiratory breath sounds bilaterally, with crepitations auscultated in the bibasilarly to mid zones. 2 L NC. GI/ : No abdominal pain on palpation, no masses or distentions. MSK: Normal ambulation without pain at bony prominences or musculature. Bilateral pitting edema 4+ than mentioned 2+ to the knee. Neurological: Normal neurological examination on overview, without obvious CN II-XII abnormalities. Vital Signs: Vital Signs: Last Vital Signs Temp 98.3 F 12/22/24 15:55 Pulse 70 12/22/24 15:55 Resp 18 12/22/24 15:55 BP 114/56 L 12/22/24 15:55 Pulse Ox 95 12/22/24 15:55 O2 Del Method Nasal Cannula 12/22/24 15:55 O2 Flow Rate 2 12/22/24 15:55 Oxygen Flow Rate 3 12/17/24 15:53 BMI result Body Mass Index 32.5 Objective Data Active Medications Acetaminophen (Acetaminophen 325 Mg Tablet) 650 mg PO Q6H PRN PRN Reason: Pain, Mild 1-3,fever,headache Albuterol/Ipratropium (Albuterol/Iprat 2.5/0.5mg 3 Ml Ampul.Neb) 3 ml INHALE Q4H PRN PRN Reason: Shortness of Breath/Wheezing Last Admin: 12/18/24 22:02 Dose: 3 ml Documented By: MADI Aspirin (Aspirin 81 Mg Tab.Chew) 81 mg PO DAILY [facility] Last Admin: 12/22/24 08:41 Dose: 81 mg Documented By: PEYTON Atorvastatin Calcium (Atorvastatin Calcium 80 Mg Tablet) 80 mg PO BEDTIME [facility] Last Admin: 12/21/24 20:22 Dose: 80 mg Documented By: AVRIL Azithromycin (Azithromycin 250 Mg Tablet) 250 mg PO Q24H [facility] Last Admin: 12/22/24 12:00 Dose: 250 mg Documented By: PEYTON Calcium Carbonate (Calcium Carbonate 750 Mg Tab.Chew) 750 mg PO Q4H PRN PRN Reason: Heartburn Calcium Carbonate/Cholecalciferol (Calcium + Vitamin D 250 Mg Tablet) 500 mg PO DAILY [facility] Last Admin: 12/22/24 08:40 Dose: 500 mg Documented By: PEYTON Dextrose (Dextrose 50 % 25 Gm/50 Ml Syringe) 25 gm IVPUSH Q15M PRN; Protocol PRN Reason: per Hypoglycemia Standing Ord. Enoxaparin Sodium (Enoxaparin Sodium 40 Mg/0.4 Ml Syringe) 40 mg SUBCUT Q24H [facility] Last Admin: 12/22/24 08:47 Dose: Not Given Documented By: PEYTON Non-Admin Reason: Patient Refused Escitalopram Oxalate (Escitalopram Oxalate 20 Mg Tablet) 20 mg PO DAILY [facility] Last Admin: 12/22/24 08:40 Dose: 20 mg Documented By: PEYTON Fluticasone/Vilanterol (Fluticasone/Vilanterol 200/25 Blst.W.Dev) 1 puff INHALE RDAILY [facility] Last Admin: 12/22/24 10:44 Dose: 1 puff Documented By: PEYTON Glipizide (Glipizide 5 Mg Tablet) 5 mg PO BIDAC [facility] Last Admin: 12/22/24 16:06 Dose: 5 mg Documented By: PEYTON Glucose (Glucose Gel 15 Gm Gel..Gram.) 15 gm PO Q15M PRN; Protocol PRN Reason: per Hypoglycemia Standing Ord. Insulin Human Lispro (Insulin Lispro 100 Unit/Ml 3 Ml Vial) 0 unit SUBCUT QIDACHS [facility]; Protocol Last Admin: 12/22/24 16:06 Dose: 8 unit Documented By: PEYTON Lactulose (Lactulose 20 Gm/30 Ml Solution) 10 gm PO BID PRN PRN Reason: Constipation Last Admin: 12/21/24 08:23 Dose: 10 gm Documented By: KAELA Lorazepam (Lorazepam 0.5 Mg Tablet) 0.5 mg PO BID PRN PRN Reason: Anxiety Last Admin: 12/21/24 20:22 Dose: 0.5 mg Documented By: AVRIL Magnesium Hydroxide (Milk Of Magnesia 30 Ml Oral.Susp) 30 ml PO DAILY PRN PRN Reason: Constipation Last Admin: 12/20/24 13:14 Dose: 30 ml Documented By: KAELA Melatonin (Melatonin 3 Mg Tablet) 6 mg PO BEDTIME PRN PRN Reason: Insomnia Metoprolol Tartrate (Metoprolol Tartrate 25 Mg Tablet) 25 mg PO BID [facility]; Protocol Last Admin: 12/22/24 08:40 Dose: 25 mg Documented By: PEYTON Omeprazole (Omeprazole 20 Mg Capsule.) 20 mg PO DAILY@0630 [facility] Last Admin: 12/22/24 05:39 Dose: 20 mg Documented By: AVRIL Prednisone (Prednisone 20 Mg Tablet) 40 mg PO DAILY [facility] Last Admin: 12/22/24 08:40 Dose: 40 mg Documented By: PEYTON Senna (Sennosides 8.6 Mg Tablet) 17.2 mg PO BID PRN PRN Reason: Constipation Last Admin: 12/19/24 08:28 Dose: 17.2 mg Documented By: GABY Sodium Chloride (0.9 % Sodium Chloride Flush 3 Ml Syringe) 3 ml IVFLUSH QSAKFT [facility] Last Admin: 12/22/24 16:08 Dose: 3 ml Documented By: PEYTON Labs 12/18/24 05:34 12/22/24 05:25 Labs: Laboratory Results - last 24 hr 12/21/24 12/22/24 12/22/24 19:55 05:25 06:13 Hold Purple Top SEE NOTE Anion Gap 11 L Estim Creat Clear Calc 50.8 Estimated GFR 52 POC Glucose 291 H Random Glucose 128 H Calcium 9.0 12/22/24 12/22/24 12/22/24 07:11 11:24 16:00 Hold Purple Top Anion Gap Estim Creat Clear Calc Estimated GFR POC Glucose 118 H 273 H 329 H Random Glucose Calcium Assessment and Plan (1) CAD (coronary artery disease): Status: Acute (2) Cirrhosis of liver with ascites: Status: Acute (3) RICH (acute kidney injury): Status: Acute (4) COPD exacerbation: Status: Acute (5) Chronic lung disease: Status: Acute (6) Acute and chronic respiratory failure: Status: Acute (7) Acute exacerbation of CHF (congestive heart failure): Status: Acute Plan 74-year-old male with a past medical history of HTN, HLD, CAD, ischemic CHFpEF, liver cirrhosis, obesity, COPD on 3 L of home oxygen, anemia, anxiety, depression, chronic lung disease; presented to the hospital today with a chief complaint of shortness of breath, admitted with Acute and chronic hypoxic respiratory failure Acute non infective exacerbation of COPD exacerbation, on chronic supplemental O2 NC 3L Acute exacerbation of ischemic HFpEF Presented with tachypnea and dyspnea, with persistent hypoxia, worsening wheezing and significant lower extremity swelling. Echocardiogram 12/18/24 revealing LVEF 60-65%. Patient has history of CAD. Listed furosemide on allergies; we will clarify further Plan Bronchodilators by Neb PO prednisone Empiric Azithromycin O2 sat goal of 92% CT chest No PE, Small area of ground-glass opacity left lower lobe - consider three-month follow-up. Bumetanide 0.5 mg IV once Intake/output q.6 hourly Daily weights Syncope Patient reports having couple episodes of syncope-appears vasovagal no evidence of seizure Monitored on tele without arrythmia Echocardiogram normal EF Can follow up with cardiology on outpatient basis Likely 2/2 hypoxic respiratory failure ? Cholangitis/cholecystitis: CT scan showed abnormal gallbladder with pneumobilia-suspected choledocholithiasis/cholecystitis/cholangitis Clinically has no evidence of cholecysitis, has history of sphincterotomy so pneumobilia is expected. General surgery and GI seen no intervention LFTs are normal..DC ceftriaxone Prerenal RICH Likely multifactorial in the setting of contrast induced nephropathy as well as acute CHF exacerbation. Has been improving gradually. Received bumetanide 1 mg IV yesterday, and receiving 0.5 mg IV today. Transitioned to p.o. tomorrow Nephrology has been following, recommendations greatly appreciate. Compensatory metabolic alkalosis on superimposed chronic respiratory acidosis 2/2 COPD on chronic O2 Diamox 250 received Monitor closely T2 DM with hyperglycemia Diabetes with hyperglycemia, Insulin sliding scale resume Glipizide, hold metformin d/t rich Total time managing care of this patient today: 45 minutes. Quality Stroke Does the patient have a stroke diagnosis?: No VTE Prior VTE?: No VTE Risk Level:: Medical - moderate - high VTE Device Contraindication: Treatment Not Indicated VTE Drug Contraindication: N/A - Med Ordered
[2024-12-22 16:35] VITALS: BP 114/56
[2024-12-22] MEDS: Bumetanide 1 MG/4 ML VIAL 0.5 MG IVPUSH (16:35)
[2024-12-22 19:09] VITALS: BP 121/62; PULSE 76; RESP 19; TEMP 36.3; O2SAT 94
[2024-12-22 20:07] LABS: Glucose, Whole Blood 309 mg/dL (60-115)
[2024-12-22 22:39] VITALS: PULSE 81; RESP 19; O2SAT 95
--- NOTE | 2024-12-22 22:47 | PC.NURSE ---
Upon assessment pt's abdomen noted to be distended and firm. Non-tender. Last BM unknown. Per pt, passing gas. +BS upon auscultation. Pt refused prn constipation meds. Per pt, he is willing to take in the AM.
[2024-12-23 03:55] VITALS: BP 102/56; PULSE 63; RESP 20; TEMP 36.1; O2SAT 96
[2024-12-23 06:23] LABS: Anion Gap 12 (12-20); Blood Urea Nitrogen 24 mg/dL (9-16); Calcium 9.0 mg/dL (8.4-10.2); Carbon Dioxide 36 mmol/L (22-29); Chloride 97 mmol/L (96-108); Creatinine Clr Calc Pharmacy 57.6; Estimated Glomerular Filt Rate 60; Potassium 3.6 mmol/L (3.3-5.1); Sodium 141 mmol/L (135-145)
[2024-12-23 07:38] LABS: Glucose, Whole Blood 140 mg/dL (60-115)
[2024-12-23] MEDS: Fluticasone/Vilanterol 200/25 BLST.W.DEV 1 PUFF INHALE (07:45)
[2024-12-23 07:46] VITALS: PULSE 74; RESP 20; O2SAT 98
[2024-12-23 08:00] VITALS: BP 134/66; PULSE 72; RESP 20; TEMP 36.4; O2SAT 95
[2024-12-23 08:11] VITALS: BP 134/66; PULSE 72
[2024-12-23] MEDS: Calcium + Vitamin D 250 MG TABLET 500 MG PO (08:11)
[2024-12-23] MEDS: 0.9 % Sodium Chloride Flush 3 ML SYRINGE IVFLUSH (08:17)
[2024-12-23 11:23] LABS: Glucose, Whole Blood 333 mg/dL (60-115)
--- NOTE | 2024-12-23 11:29 | MHC.CM.PN ---
Addendum entered by Merlyn Washburn RN 12/23/24 13:22: IMM delivered. Original Note: Per MD, medically cleared for dc home w/ resumption of [facility] services. will transport home and will bring portable O2 tank. RN aware.
--- NOTE | 2024-12-23 13:16 | P.DS_ITS ---
DS: Providers Provider Date of Service: 12/23/24 Date of admission: 12/17/24 23:29 Date of discharge: 12/23/24 Primary care physician: Anne-Marie Muro MD Consults: 12/18/24 04:33 Consult to Gastroenterology Routine Consulting Provider: [facility] [place] [facility] Reason for consultation: cholangitis 12/18/24 04:55 Consult to General Surgery Routine Consulting Provider: [facility] [place] [facility] Reason for consultation: ? Cholecystitis 12/21/24 07:32 Consult to Nephrology Routine Consulting Provider: [facility] [place] [facility] Reason for consultation: Danna, cardio renal syndrome Has provider been notified: No DS: Diagnosis Discharge Diagnosis (1) CAD (coronary artery disease): Status: Acute (2) Cirrhosis of liver with ascites: Status: Acute (3) DANNA (acute kidney injury): Status: Acute (4) COPD exacerbation: Status: Acute (5) Chronic lung disease: Status: Acute (6) Acute and chronic respiratory failure: Status: Acute (7) Acute exacerbation of CHF (congestive heart failure): Status: Acute DS: Summary Hospital Course Hospital Course: Admission hpi Chief Complaint: sob 74-year-old male with a past medical history of HTN, HLD, CAD, liver cirrhosis, obesity, COPD on 3 L of home oxygen, anemia, anxiety, depression, chronic lung disease; presented to the hospital today with a chief complaint of shortness of breath. Patient reports over the past couple days he has been having shortness of breath. Denies any cough. Denies any sputum production. Also mentioned that while he was on the commode he slumped over and probably lost consciousness. Denies any fall or injury. Denies any chest pain or palpitations. Review of all other systems is negative except mentioned above ER course: Per ER team, patient on presentation noted to be short of breath, wheezing; concern for possible mild COPD exacerbation; given prednisone; when patient was walked with his oxygen patient desaturated to 80%; EKG nonischemic. Hospital course: 74-year-old male with a past medical history of HTN, HLD, CAD, liver cirrhosis, obesity, COPD on 3 L of home oxygen, anemia, anxiety, depression, chronic lung disease; presented to the hospital today with a chief complaint of shortness of breath and found to have copd with acute exacerbation with acute and chronic hypoxic respiratory failure. CXR showed no pneumonia.. He has been treated with with IV solumedrol, bronchodilators by Neb and antibiotics with Ceftriaxone and Azithromycin. He had CT of the chest showing no PE. Overall he's feelinb better now his repiratory status has much improved and he feels comfortable going home. Will be discharged to complete prednisone maria r, and complete azithro and continue with home O2 ? Cholangitis/cholecystitis: CT scan showed abnormal gallbladder with pneumobilia-suspected choledocholithiasis/cholecystitis/cholangitis Clinically has no evidence of cholecysitis, has history of sphincterotomy so pneumobilia is expected. General surgery and GI seen no intervention LFTs are normal so ceftriaxone was discontinued Syncope: Patient reports having couple episodes of syncope-appears vasovagal versus seizure duration. Orthostatic vitals Telemetry Echocardiogram --- 1. Normal LV ejection fraction of 60 65% with impaired relaxation filling pattern 2. Mild aortic stenosis 3. Normal RV systolic pressure 4. No gross pericardial effusion Holter at the time of discharge Diabetes with hyperglycemia likely due to steroid, and required additional insulin but now is controlled resume Glipizide, hold metformin d/t dye use. Furthermore, the patient also suffered with mild acute CHF exacerbation, requiring bumetanide IV for 2 days 1 mg, followed by 0.5. His lower extremity edema significantly improved, and reports improved breathing. He will be continued on 40 mg OD furosemide p.o. until seen by PCP. Status at Discharge Functional status at discharge: independent ambulation Overall status at discharge: patient is back to baseline Time Attestation Total time managing care of this patient today: 35 mintues. Discharge Coordination Time (in mins): 15 Quality: Safe Use of Opioids Does Pt have an Active Cancer Diagnosis on the Problem List?: Yes Opioid Measure Date for [facility] Report: 11/23/24 Opioid Measure Time for [facility] Report: 13:17 Quality: Stroke Does the patient have a stroke diagnosis?: No Physical Exam Exam: Exam: General: A&O x3, oriented to time place person and situation, comfortable, no pain Cardiac: S1, S2 auscultated with no S3/4, no MRG. Well perfused. Respiratory: Decreased inspiratory and expiratory breath sounds bilaterally, with mild crepitations at the bases. Patient is on chronic oxygen 2 L NC. GI/ : No abdominal pain on palpation, no masses or distentions. MSK: Normal ambulation without pain at bony prominences or musculature. 4+ pitting edema to the mid ankles bilaterally; improves with diuresis. Neurological: Normal neurological examination on overview, without obvious CN II-XII abnormalities. Vital Signs: Vital Signs: Last Vital Signs Temp 97.5 F 12/23/24 08:00 Pulse 72 12/23/24 08:11 Resp 20 12/23/24 08:00 BP 134/66 12/23/24 08:11 Pulse Ox 95 12/23/24 08:00 O2 Del Method Nasal Cannula 12/23/24 08:00 O2 Flow Rate 2 12/23/24 08:00 Oxygen Flow Rate 3 12/17/24 15:53 BMI result Body Mass Index 32.5 DS: Data Data Completed and Pending Completed studies during hospitalization [Text1]: Procedures Assistance with Respiratory Ventilation, Less than 24 Consecutive Hours, Continuous Positive Airway Pressure (11/30/24) Excision of Rectum, Via Natural or Artificial Opening Endoscopic, Diagnostic (05/26/24) Excision of Sigmoid Colon, Via Natural or Artificial Opening Endoscopic, Diagnostic (05/26/24) Excision of Transverse Colon, Via Natural or Artificial Opening Endoscopic, Diagnostic (05/26/24) Irrigation of Lower GI using Irrigating Substance, Via Natural or Artificial Opening (07/29/22) Labs on day of discharge: Laboratory Results - last 24 hr 12/22/24 12/22/24 12/23/24 16:00 19:58 05:28 Hold Purple Top SEE NOTE Sodium 141 Potassium 3.6 Chloride 97 Carbon Dioxide 36 H Anion Gap 12 BUN 24 H Creatinine 1.19 Estim Creat Clear Calc 57.6 Estimated GFR 60 POC Glucose 329 H 309 H Random Glucose 98 Calcium 9.0 12/23/24 12/23/24 07:27 11:14 Hold Purple Top Sodium Potassium Chloride Carbon Dioxide Anion Gap BUN Creatinine Estim Creat Clear Calc Estimated GFR POC Glucose 140 H 333 H Random Glucose Calcium Discharge Plan Discharge Anticipated Discharge Date/Time: 12/20/24 09:57 Patient Disposition: Home, Self-Care Discharge Diagnosis: copd exacerbation & acute CHF exacerbation Referrals: Vasyl KUMAR [Outside] - 1 Day Referral Note: resume services Stevenson Carpio MD [Physician, Cardiology] - 1 Week Referral Note: syncope Physician,Unknown J [Physician, Medical] - 1 Week Discharge Medications: New prednisone 10 mg tablet See Taper PO DIRECTED Qty: 12 0RF Taper: Prednisone 30 mg daily for 2 Days and 0 Hour 20 mg daily for 2 Days and 0 Hour 10 mg daily for 2 Days and 0 Hour Rx Instructions: see taper instructions furosemide [Lasix] 40 mg tablet 40 mg PO DAILY Qty: 30 0RF Continued (DME) blood-glucose meter [FreeStyle Lite Meter] Kit See Rx Instructions .Route Qty: 1 0RF Rx Instructions: As directed (DME) lancets [FreeStyle Lancets] 28 gauge misc See Rx Instructions .Route Qty: 100 1RF Rx Instructions: Test blood sugar twice (DME) FreeStyle Lite Strips Strip See Rx Instructions .Route Qty: 50 7RF Rx Instructions: check fasting glucose once a day AC metformin 1,000 mg tablet 1,000 mg PO BID Qty: 180 1RF atorvastatin 80 mg tablet 80 mg PO BEDTIME Qty: 90 1RF omeprazole 20 mg capsule,delayed release(DR/EC) 20 mg PO DAILY@0630 Qty: 30 1RF glipizide 5 mg tablet 5 mg PO BID Qty: 270 4RF ipratropium-albuterol 0.5 mg-3 mg(2.5 mg base)/3 mL solution for nebulization 3 ml inhalation Q6H PRN (Reason: wheezing) Qty: 180 2RF escitalopram oxalate 20 mg tablet 20 mg PO DAILY Qty: 90 3RF lorazepam [Ativan] 1 mg tablet 0.5 mg PO BID PRN (Reason: anxiety) Qty: 30 0RF Rx Instructions: Patient may request partial fill metoprolol tartrate 25 mg tablet 25 mg PO BID Qty: 180 1RF budesonide-formoterol [Symbicort] 160-4.5 mcg/actuation Hfa Aerosol Inhaler 2 puff INHALATION DAILY PRN (Reason: Shortness Of Breath Or Wheezing) calcium carbonate-vitamin D3 600 mg-10 mcg (400 unit) tablet 1 tab PO DAILY azithromycin 500 mg tablet 500 mg PO MOWEFR sennosides [senna] 8.6 mg tablet 17.2 mg PO BID PRN (Reason: constipation) albuterol sulfate [Ventolin HFA] 90 mcg/actuation HFA aerosol inhaler 2 puff inhalation Q4H PRN (Reason: shortness of breath or wheezing) aspirin 81 mg Tablet 81 mg PO DAILY lactulose 10 gram/15 mL solution 10 g PO BID PRN (Reason: Constipation) (DME) Oxygen Home Use Kit See Rx Instructions .Route Rx Instructions: As directed Discharge Orders: Discharge Order (Routine); Ordered 12/23/24 Ordered By: Esteban White Diet: Diabetic diet Activity on Discharge: As tolerated Stand Alone Forms: Patient Portal Discharge page Print Language: Mongolian Care Plan Goals: recovery from copd exacerbation Health Concerns: copd exacerbation Plan of Treatment: take prednisone as directed, take inhalers as before follow up with your doctor in a week, call for appointment Assessment: see above
[2024-12-23 15:08] VITALS: BP 100/56; PULSE 63; RESP 16; TEMP 36.7; O2SAT 96
== END 2024-12-23 15:59 | disposition home or self-care (01) | DRG 190 ==
LOC: HO.ED 22:49 → HO.EDOVER 12-18 00:49 → HO.IMC 12-18 17:26 → HO.S3 12-21 15:40
PROVIDERS: Internal Medicine; Nurse Practitioner Family; Student in an Organized Health Care Education/Training Program; Admitting Provider Hospitalist; Emergency Provider Emergency Medicine; PCP Internal Medicine; Visit Provider Hospitalist
DX: J44.1 Chronic obstructive pulmonary disease with (acute) exacerbation (principal); I50.33 Acute on chronic diastolic (congestive) heart failure; J96.21 Acute and chronic respiratory failure with hypoxia; N17.9 Acute kidney failure, unspecified; E87.4 Mixed disorder of acid-base balance; I25.10 Atherosclerotic heart disease of native coronary artery without angina pectoris; K59.09 Other constipation; N14.11 Contrast-induced nephropathy; T50.8X5A Adverse effect of diagnostic agents, initial encounter; K74.60 Unspecified cirrhosis of liver; E11.65 Type 2 diabetes mellitus with hyperglycemia; Z20.822 Contact with and (suspected) exposure to COVID-19; R55 Syncope and collapse; I35.0 Nonrheumatic aortic (valve) stenosis; I11.0 Hypertensive heart disease with heart failure; Z99.81 Dependence on supplemental oxygen; Z85.118 Personal history of other malignant neoplasm of bronchus and lung; Z87.891 Personal history of nicotine dependence; Z79.82 Long term (current) use of aspirin; Z79.84 Long term (current) use of oral hypoglycemic drugs; Z79.899 Other long term (current) drug therapy
CPT/HCPCS: 36415; 71046; 71275; 80048; 80053; 80076; 81001; 82436; 82803; 82947; 83690; 83880; 85025; 87040; 87502; 87635; 93005; 93306; 94640; 94660; 99285; J0696; J1120; J1650; J1836; J1939; J2919; Q9957; Q9967

== ENCOUNTER → 2024-12-17 16:22 | Outpatient (BNV) | payer MEDICARE, SELFPAY | PROVIDERS: Admitting Provider Hospitalist; Emergency Provider Emergency Medicine; Visit Provider Internal Medicine Cardiovascular Disease | DX: R00.0 Tachycardia, unspecified (principal) | CPT/HCPCS: 93010 ==

== ENCOUNTER → 2024-12-17 17:37 | Outpatient (BNV) | payer MEDICARE, SELFPAY | PROVIDERS: Visit Provider Radiology Diagnostic Radiology | DX: J98.11 Atelectasis (principal) | CPT/HCPCS: 71046 ==

== ENCOUNTER 2024-12-17 23:29 | Outpatient (BNV) | payer MEDICARE, SELFPAY | END 2024-12-18 07:00 | PROVIDERS: Admitting Provider Hospitalist; Emergency Provider Emergency Medicine; Visit Provider Internal Medicine Cardiovascular Disease | DX: R55 Syncope and collapse (principal) | CPT/HCPCS: 93306 ==

== ENCOUNTER 2024-12-17 23:29 | Outpatient (BNV) | payer MEDICARE, SELFPAY | END 2024-12-18 00:04 | PROVIDERS: Admitting Provider Hospitalist; Emergency Provider Emergency Medicine; Visit Provider Radiology Diagnostic Radiology | DX: J98.11 Atelectasis (principal) | CPT/HCPCS: 71275 ==

== ENCOUNTER → 2024-12-17 23:29 | Outpatient (BNV) | payer MEDICARE, SELFPAY | PROVIDERS: Admitting Provider Hospitalist; Emergency Provider Emergency Medicine; Visit Provider Nurse Practitioner Family | DX: N17.9 Acute kidney failure, unspecified (principal) | CPT/HCPCS: 99222; 99231 ==

== ENCOUNTER → 2024-12-17 23:29 | Outpatient (BNV) | payer MEDICARE, SELFPAY | PROVIDERS: Admitting Provider Hospitalist; Emergency Provider Emergency Medicine; Visit Provider Internal Medicine | DX: J44.1 Chronic obstructive pulmonary disease with (acute) exacerbation (principal); J98.4 Other disorders of lung | CPT/HCPCS: 99223; 99232 ==

== ENCOUNTER → 2024-12-17 23:29 | Outpatient (BNV) | payer MEDICARE, SELFPAY | PROVIDERS: Admitting Provider Hospitalist; Emergency Provider Emergency Medicine; Visit Provider Internal Medicine | DX: K83.8 Other specified diseases of biliary tract (principal); K80.20 Calculus of gallbladder without cholecystitis without obstruction; K80.50 Calculus of bile duct without cholangitis or cholecystitis without obstruction | CPT/HCPCS: 99222 ==

== ENCOUNTER → 2024-12-17 23:29 | Outpatient (BNV) | payer MEDICARE, SELFPAY | PROVIDERS: Admitting Provider Hospitalist; Emergency Provider Emergency Medicine; Visit Provider Physician Assistant Surgical | DX: K83.8 Other specified diseases of biliary tract (principal) | CPT/HCPCS: 99222 ==

== ENCOUNTER 2024-12-29 10:26 | Outpatient (AMB) | payer MEDICARE, SELFPAY ==
--- NOTE | 2024-12-29 10:27 | A.OFFPC_ITS ---
Vital Signs 12/29/24 10:41 Height 5 ft 6 in Weight 187 lb BMI 30.2 BP 98/56 L Blood Pressure Location Rt brachial Position Sitting Respiration 17 Pulse 91 Pulse Source Pulse Oximeter Temp 98.4 F Temp Source Oral Pulse Oximetry (%) 92 Oxygen Delivery Method Room Air Intake Visit Reasons: TCM COPD Intake Note: Pt is here today for his TCM for COPD Allergies fluticasone furoate (From Trelegy Ellipta) Allergy (Intermediate, Verified 12/29/24 10:41) Rash vilanterol (From Trelegy Ellipta) Allergy (Intermediate, Verified 12/29/24 10:41) Rash umeclidinium (Incruse Ellipta) Allergy (Unknown, Verified 12/29/24 10:41) Hives Tobacco use date assessed: 06/09/24 Dental Screening Dental Screen Date: 06/09/24 HPI TCM 2 TCM Information Date of Discharge 12/17/24 Discharged From [facility] Interactive Contact Date (Reference documentation from this date) 12/23/24 [facility] Medical History Positive colorectal cancer screening using Cologuard test HTN (hypertension) History of adenomatous polyp of colon Acute on chronic respiratory failure with hypoxia and hypercapnia Respiratory failure with hypoxia and hypercapnia Bilateral carotid artery disease CAD (coronary artery disease) Anxiety and depression Anemia Chronic respiratory failure with hypoxia and hypercapnia Radiation fibrosis of lung Dyslipidemia History of pneumonia Bacteremia due to Enterococcus COPD, severe Diabetes mellitus with hyperglycemia, without long-term current use of insulin Urinary incontinence Asthma Lung cancer Skin cancer Surgical History Hx of heart artery stent History of esophagogastroduodenoscopy (EGD) Hx of colonoscopy Family History Father Medical history non-contributory Mother Medical history non-contributory Unknown family medical history Lung collapse Brother No problems noted. Brother No problems noted. Son Substance use disorder Son No problems noted. Daughter No problems noted. Sister No problems noted. Sister No problems noted. Sister No problems noted. Sister No problems noted. Other HTN (hypertension) Social History Household Members: Spouse Household Members Other:: grandson Housing: House Are you a primary career agent to a significant other at home: No Do you presently have visiting nurse or other home services: No Alcohol intake: never Comment: refusing all fall risk interventions Patient Tobacco Use Status: Former Tobacco user Tobacco use type: Cigarette e-Cigarette/Vaping Use: Never Used Advance Directives Date on File: 06/08/22 service: No Current occupational status: retired Cognitive needs: No Hearing needs: No Vision needs: No Questionnaire Thrive Questionnaire Date Thrive assessed: 12/09/24 I am a: Patient What is your living situation today?: I have a steady place to live Within the past 12 months, did the food you bought not last and you didn't have the money to get more?: Sometimes True Within the past 12 months, did you worry whether your food would run out before you got money to buy more?: Sometimes True Do you have trouble paying for medicines?: No Do you have trouble getting transportation to medical appointments?: No Do you have trouble paying your heating and electricity bill?: No Do you have trouble taking care of your child, family member or friend?: Yes Do you have trouble with day-to-day activities such as bathing, preparing meals, shopping, managing finances, etc.?: Yes Are you currently unemployed and looking for a job?: No Are you interested in more education?: No Please select the resources that you would like help with: None Currently or been in a relationship where the following occur: No concerns reported THRIVE Score: 2 SAUMYA-7 AMB Questionnaire SAUMYA-7 Date SAUMYA - 7 assessed: 10/08/24 Source: Developed by Drs. Finn Stevens, Klaudia Bonilla, Reinaldo Suero and colleagues, with an educational lolita from [employer]. Physical exam (Primary Care) Vital Signs: Last Vital Signs Temp 98.4 F 12/29/24 10:41 Pulse 91 12/29/24 10:41 Resp 17 12/29/24 10:41 BP 98/56 L 12/29/24 10:41 Pulse Ox 92 12/29/24 10:41 Oxygen Delivery Method Room Air 12/29/24 10:41 BMI result Body Mass Index 30.2 Tobacco/Smoking Status: Tobacco use Status Tobacco use date assessed 06/09/24 12/29/24 10:28 Patient Tobacco Use Status Former Tobacco user 12/29/24 10:28 Tobacco use type Cigarette 12/29/24 10:28 e-Cigarette/Vaping Use Never Used 12/29/24 10:28 Thrive Assessment: Date of Thrive Assessment Date Thrive assessed 12/09/24 12/29/24 10:28 Currently or been in a relationship where the following occur: No concerns reported Results AMB Hemoglobin A1c AMB Hemoglobin A1c 9.2 % Last Edit by Jaelyn Rutledge CMA on 12/29/24 11:18 Coding Diagnoses Dyslipidemia E78.5 Anxiety and depression F41.9; F32.A Diabetes mellitus with hyperglycemia, without long-term current use of insulin E11 Anemia D64.9 Assessment & Plan Assessment & Plan (1) Dyslipidemia: Code(s): E78.5 - Hyperlipidemia, unspecified Category: Medical (2) Anxiety and depression: Code(s): F41.9 - Anxiety disorder, unspecified; F32.A - Depression, unspecified Category: Medical (3) Diabetes mellitus with hyperglycemia, without long-term current use of insulin: Code(s): E11.65 - Type 2 diabetes mellitus with hyperglycemia Category: Medical (4) Anemia: Code(s): D64.9 - Anemia, unspecified Category: Medical Orders: Orders Lipid Panel 03/08/25 E11.65 - Type 2 diabetes mellitus with hyperglycemia, E78.5 - Hyperlipidemia, unspecified, F32.A - Depression, unspecified, F41.9 - Anxiety disorder, unspecified Hemoglobin A1c 03/08/25 E11.65 - Type 2 diabetes mellitus with hyperglycemia, E78.5 - Hyperlipidemia, unspecified, F32.A - Depression, unspecified, F41.9 - Anxiety disorder, unspecified Aspartate Amino Transferase 03/08/25 E11.65 - Type 2 diabetes mellitus with hyperglycemia, E78.5 - Hyperlipidemia, unspecified, F32.A - Depression, unspecified, F41.9 - Anxiety disorder, unspecified Alanine Aminotransferase 03/08/25 E11.65 - Type 2 diabetes mellitus with hyperglycemia, E78.5 - Hyperlipidemia, unspecified, F32.A - Depression, unspecified, F41.9 - Anxiety disorder, unspecified Comprehensive [place]. Panel Fast 03/08/25 E11.65 - Type 2 diabetes mellitus with hyperglycemia, E78.5 - Hyperlipidemia, unspecified, F32.A - Depression, unspec ified, F41.9 - Anxiety disorder, unspecified Microalbumin, Random (w Creat) 03/08/25 E11.65 - Type 2 diabetes mellitus with hyperglycemia, E78.5 - Hyperlipidemia, unspecified, F32.A - Depression, unspecified, F41.9 - Anxiety disorder, unspecified AMB Hemoglobin A1c Today Z13.9 - Encounter for screening, unspecified Medications: [place] (empagliflozin) 25 mg PO QAM 30 tabs 0RF NS ferrous sulfate 325 mg PO DAILY 90 tabs 1RF D64.9 - Anemia, unspecified Refilled lorazepam (Ativan) Patient may request partial fill 0.5 mg (1/2 x 1 mg) PO BID PRN 30 tabs 0RF anxiety lorazepam (Ativan) Patient may request partial fill 0.5 mg (1/2 x 1 mg) PO BID PRN 30 tabs 0RF anxiety
[2024-12-29 10:41] VITALS: BP 98/56; PULSE 91; RESP 17; TEMP 36.9; O2SAT 92; BMI 30.2
--- OUTSIDE RECORDS SUMMARY | 2024-12-29 12:44 | XMS_ITS | Clinical Summary ---
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 10/06/2024 Encounters Date Type Department Care Team Description 11/23/2024 Telephone Pulmonology - [facility] [address] [phone] Linnette Marr MD 11/11/2024 Telephone Pulmonology - [facility] [address] [address] Linnette Marr MD 11/03/2024 Telephone Pulmonology [facility] [address] [phone] Linnette Marr MD 10/28/2024 Telephone Pulmonology [facility] [address] [address] Linnette Marr MD 10/12/2024 Telephone Pulmonology - [facility] [address] [address] Linnette Marr MD 10/07/2024 Telephone Pulmonology [facility] [address] [address] Magaly Estrada [place] 10/06/2024 11:15 AM EDT Office Visit Pulmonology - [facility] [address] [phone] Linnette Marr MD Hypoxemia (Primary Dx); Centrilobular emphysema ([facility] V24, [facility] V28); Obstructive sleep apnea; Acute and chronic respiratory failure with hypoxia ([facility] V24, [facility] V28); Type 2 diabetes mellitus without complication, unspecified whether jail insulin use ([facility] V24, [facility] V28) 10/06/2024 Telephone Pulmonology [facility] [address] [address] Linnette Marr MD from Last 3 Months [...] Coronary atherosclerosis of unspecified type of vessel, [place] or graft 05/30/2011 DX:Coronary atherosclerosis of unspecified type of vessel, [place] or graft Family History Medical History Relation [...] Description 01/06/2025 1:15 PM EDT Office Visit Pulmonology - [address] [place] [address] Linnette Marr MD [address] [place] [phone] Health Maintenance Due Date Last Done Comments [...] age to complete this topic Insurance MEDICARE [facility] Advance Directives Documents on File Type Date Recorded 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
== END 2024-12-29 12:05 | disposition home or self-care (01) ==
PROVIDERS: PCP Internal Medicine; Visit Provider Internal Medicine
DX: Z13.9 Encounter for screening, unspecified (principal)

== ENCOUNTER → 2024-12-29 10:26 | Outpatient (BNVA) | payer MEDICARE, SELFPAY | PROVIDERS: PCP Internal Medicine; Visit Provider Internal Medicine | DX: E11.22 Type 2 diabetes mellitus with diabetic chronic kidney disease (principal); J44.9 Chronic obstructive pulmonary disease, unspecified; I50.9 Heart failure, unspecified; N18.9 Chronic kidney disease, unspecified; E78.5 Hyperlipidemia, unspecified; F41.9 Anxiety disorder, unspecified; F32.A Depression, unspecified; E11.65 Type 2 diabetes mellitus with hyperglycemia; K21.9 Gastro-esophageal reflux disease without esophagitis; D64.9 Anemia, unspecified | CPT/HCPCS: 83036; 99496 ==

== ENCOUNTER 2025-01-04 11:41 | Outpatient (AMB) | payer MEDICARE, SELFPAY ==
[2025-01-04 11:43] VITALS: BP 88/40; PULSE 85; O2SAT 93; BMI 30.5
--- NOTE | 2025-01-04 11:43 | HO.NEPHOV ---
Vital Signs 01/04/25 11:43 Height 5 ft 6 in Weight 189 lb BMI 30.5 BP 88/40 L Blood Pressure Location Rt brachial Position Sitting Pulse 85 Pulse Source Pulse Oximeter Pulse Oximetry (%) 93 Oxygen Delivery Method Room Air Intake Visit Reasons: [facility] 2 week f/u Floor Nurse Required: No Accompanied by: Spouse Allergies fluticasone furoate (From Trelegy Ellipta) Allergy (Intermediate, Verified 01/04/25 11:45) Rash vilanterol (From Trelegy Ellipta) Allergy (Intermediate, Verified 01/04/25 11:45) Rash umeclidinium (Incruse Ellipta) Allergy (Unknown, Verified 01/04/25 11:45) Hives Medication List - Last Reconciled 01/04/25 by Sam Nugent MD albuterol sulfate 90 mcg/actuation (Ventolin HFA) 2 puffs inhalation Q4H PRN aspirin 81 mg PO DAILY atorvastatin 80 mg PO BEDTIME azithromycin 500 mg PO 3XW blood sugar diagnostic (FreeStyle Lite Strips) check fasting glucose once a day AC blood-glucose meter (FreeStyle Lite Meter kit) As directed budesonide-formoterol 160-4.5 mcg/actuation (Symbicort) 2 puffs inhalation DAILY PRN calcium carbonate-vitamin D3 600 mg-10 mcg (400 unit) 1 tab PO DAILY escitalopram oxalate 20 mg PO DAILY ferrous sulfate 325 mg PO DAILY furosemide (Lasix) 40 mg PO DAILY glipizide 5 mg PO BID ipratropium-albuterol 0.5 mg-3 mg(2.5 mg base)/3 mL 3 mL inhalation Q6H PRN lactulose 10 grams PO BID PRN lancets (FreeStyle Lancets) Test blood sugar twice lorazepam (Ativan) 0.5 mg (1/2 x 1 mg) PO BID PRN metformin 1,000 mg PO BID metoprolol tartrate 25 mg PO BID omeprazole 20 mg PO DAILY@0630 Oxygen Home Use As directed sennosides (senna) 17.2 mg PO BID PRN HPI Comments Details: - The patient is a 74-year-old male is here for rollow up regarding acute kidney injury. Baseline creatinine has been less than 1.0 mg/dL. During hospitalization creatinine bumped up to 1.35. Prior to this he received IV contrast. Over the course of few days serum creatinine gradually improved and recent creatinine is 1.19. He had significant edema. He was started on Lasix 40 mg a day. Edema has subsided. - Reports dizziness due to low blood pressure. [facility] Medical History (Updated 01/04/25 @ 12:44 by Sam Nugent MD) COPD, severe Cholelithiasis Pneumobilia Chronic lung disease Diabetes mellitus with hyperglycemia, without long-term current use of insulin Positive colorectal cancer screening using Cologuard test HTN (hypertension) History of adenomatous polyp of colon Acute on chronic respiratory failure with hypoxia and hypercapnia Respiratory failure with hypoxia and hypercapnia Bilateral carotid artery disease CAD (coronary artery disease) Anxiety and depression Anemia Chronic respiratory failure with hypoxia and hypercapnia Radiation fibrosis of lung Dyslipidemia History of pneumonia Bacteremia due to Enterococcus Diabetes mellitus with hyperglycemia, without long-term current use of insulin Urinary incontinence Asthma Lung cancer Skin cancer Surgical History Hx of heart artery stent History of esophagogastroduodenoscopy (EGD) Hx of colonoscopy Family History Father Medical history non-contributory Mother Medical history non-contributory Unknown family medical history Lung collapse Brother No problems noted. Brother No problems noted. Son Substance use disorder Son No problems noted. Daughter No problems noted. Sister No problems noted. Sister No problems noted. Sister No problems noted. Sister No problems noted. Other HTN (hypertension) Social History Household Members: Spouse Household Members Other:: grandson Housing: House Are you a primary after school caregiver to a significant other at home: No Do you presently have visiting nurse or other home services: No Alcohol intake: never Comment: refusing all fall risk interventions Patient Tobacco Use Status: Former Tobacco user Tobacco use type: Cigarette e-Cigarette/Vaping Use: Never Used Advance Directives Date on File: 06/08/22 service: No Current occupational status: retired Cognitive needs: No Hearing needs: No Vision needs: No Physical Exam Vital Signs: Last Vital Signs Pulse 85 01/04/25 11:43 BP 88/40 L 01/04/25 11:43 Pulse Ox 93 01/04/25 11:43 Oxygen Delivery Method Room Air 01/04/25 11:43 BMI result Body Mass Index 30.5 Comfortable Neck supple no JVD. Lungs entry equal - [place] rhonchi Heart S1-S2 heard no gallop or rub. Abdomen soft nontender. Neuro alert awake oriented. No asterixis. Extremities trace edema. Results Reviewed Nephrology Results: Hgb, (14.0-18.0) 9.0 g/dl L 12/18/24 WBC, (4.8-10.8) 6.3 X10*3/uL 12/18/24 Plt Count, (160-400) 183 X10*3/uL 12/18/24 Sodium, (135-145) 141 mmol/L 12/23/24 Potassium, (3.3-5.1) 3.6 mmol/L 12/23/24 Chloride, (96-108) 97 mmol/L 12/23/24 Carbon Dioxide, (22-29) 36 mmol/L H 12/23/24 BUN, (9-16) 24 mg/dL H 12/23/24 Creatinine, (0.5-1.4) 1.19 mg/dL 12/23/24 Calcium, (8.4-10.2) 9.0 mg/dL 12/23/24 Urine Protein, (Neg-Trace) Trace mg/dL 12/21/24 Assessment & Plan Assessment & Plan (1) DANNA (acute kidney injury): Code(s): N17.9 - Acute kidney failure, unspecified Category: Medical Plan: DANNA most likely due to hypoperfusion and possible contrast nephropathy. Renal function is improving. Avoid hypotension Continue overt nephrotoxic agents. (2) Edema: Code(s): R60.9 - Edema, unspecified Category: Medical Plan: Responded to Lasix 40 mg a day Can decrease dose to 20 mg a day. Stay on low-sodium diet Plan Hypotension Most likely due to high dose of diuretics. Lowered Lasix to 20 mg a day. Currently not on any other antihypertensive agents. Orders: Orders Basic Metabolic Panel Today N17.9 - Acute kidney failure, unspecified Complete Blood Count no Diff Today D64.9 - Anemia, unspecified Coding Level of Care Code Est Pt Level 4 (11978) Diagnoses DANNA (acute kidney injury) N17.9 Edema R60.9
== END 2025-01-04 11:59 | disposition home or self-care (01) ==
LOC: HO.HKA 11:42
PROVIDERS: PCP Internal Medicine; Visit Provider Internal Medicine Hypertension Specialist
DX: N17.9 Acute kidney failure, unspecified (principal); R60.9 Edema, unspecified
CPT/HCPCS: 99214

== ENCOUNTER 2025-01-04 11:41 | Outpatient (REF) | payer MEDICARE, SELFPAY ==
[2025-01-04 13:34] LABS: Hematocrit 33.3 % (42.0-52.0); Hemoglobin 10.0 g/dl (14.0-18.0); Mean Corpuscular HGB Conc 30.0 g/dl (31.0-36.0); Mean Corpuscular Hemoglobin 27.4 pg (27.0-33.0); Mean Corpuscular Volume 91.2 fL (80.0-98.0); NRBC Abs Auto 0.000 X10*3/uL (0.0-0.012); NRBC Pct Auto 0.0 /100WBC (0.0-0.2); Platelet Count 221 X10*3/uL (160-400); Red Blood Count 3.65 X10*6/uL (4.60-5.80); White Blood Count 7.1 X10*3/uL (4.8-10.8)
[2025-01-04 14:23] LABS: Anion Gap 12 (12-20); Blood Urea Nitrogen 16 mg/dL (9-16); Calcium 8.7 mg/dL (8.4-10.2); Chloride 89 mmol/L (96-108); Estimated Glomerular Filt Rate > 60; Potassium 3.7 mmol/L (3.3-5.1); Sodium 139 mmol/L (135-145)
[2025-01-04 14:25] LABS: Carbon Dioxide 42 mmol/L (22-29)
== END 2025-01-04 11:42 | disposition home or self-care (01) ==
LOC: HO.LAB 11:41
PROVIDERS: PCP Internal Medicine; Visit Provider Internal Medicine Hypertension Specialist
DX: N17.9 Acute kidney failure, unspecified (principal); D64.9 Anemia, unspecified; R60.0 Localized edema; Z79.899 Other long term (current) drug therapy
CPT/HCPCS: 36415; 80048; 85027; 99212

== ENCOUNTER 2025-03-08 17:34 | Inpatient (IN) | payer MEDICARE, SELFPAY ==
[2025-03-08] VITALS (10 sets, daily range): BP systolic 97–161; BP diastolic 50–87; PULSE 80–104; RESP 17–23; TEMP 36.6; O2SAT 75–91; BMI 37.1
--- NOTE | ~2025-03-08 | XR_ITS ---
CLINICAL HISTORY: sob 1 view chest x-ray Comparison: CT/REG/SR - CT ANGIO CHEST PE PROTOCOL - 12/18/24 02:41 EDT CR - XR CHEST 2V - 12/17/24 17:37 EDT Findings: Interval worsening of diffuse interstitial prominence in both lungs. Possible tiny bilateral pleural effusions. Findings are concerning for pulmonary edema/fluid overload. Normal size heart. No acute fracture. IMPRESSION: Interval worsening of diffuse interstitial prominence in both lungs. Possible tiny bilateral pleural effusions. Findings are concerning for pulmonary edema/fluid overload. This document has been electronically signed by: Hood Ybarra MD on 03/08/2025 19:10:58
--- NOTE | 2025-03-08 17:55 | ECG_ITS ---
Test Reason : CP Blood Pressure : */* mmHG Vent. Rate : 95 BPM Atrial Rate : 95 BPM P-R Int : 152 ms QRS Dur : 88 ms QT Int : 368 ms P-R-T Axes : 35 83 63 degrees QTcB Int : 462 ms Normal sinus rhythm Normal ECG When compared with ECG of 17-Dec-2024 16:22, ST no longer depressed in Anterolateral leads T wave inversion no longer evident in Anterolateral leads Referred By: Cecile Trujillo Electronically Signed By: YOCASTA GIL
--- NOTE | 2025-03-08 18:02 | ED.SOB ---
HPI - SOB/Dyspnea General Chief Complaint: Dyspnea Stated Complaint: COPD exacerbation with no relief Time Seen by Provider: 03/08/25 17:41 History of Present Illness HPI Narrative: Patient is a 75-year-old male presented today with having increasing shortness of breath. Baseline is on 2 L of oxygen at home. More confusion than usual. Baseline is awake alert oriented. Has a history of CO2 retention. Patient was given steroid prior to arrival. Additional neb treatment. Patient from home. Related Data Home Medications ?Medication ?Instructions ?Recorded ?Confirmed budesonide-formoterol HFA 160 2 puff inhalation DAILY PRN 03/14/21 02/18/25 mcg-4.5 mcg/actuation aerosol Shortness Of Breath Or Wheezing inhaler (Symbicort) calcium 600 mg (as 1 tab PO DAILY 08/04/21 02/18/25 carbonate)-vitamin D3 10 mcg (400 unit) tablet Oxygen Home Use 06/14/22 02/18/25 albuterol sulfate 90 mcg/actuation 2 puff inhalation Q4H PRN 09/24/24 02/18/25 aerosol inhaler (Ventolin HFA) shortness of breath or wheezing aspirin 81 mg tablet 81 mg PO DAILY 11/11/24 02/18/25 azithromycin 500 mg tablet 500 mg PO 3XW 01/04/25 02/18/25 Previous Rx's ?Medication ?Instructions ?Recorded blood-glucose meter (FreeStyle #1 ea 01/23/22 Lite Meter kit) lancets 28 gauge (FreeStyle #100 ea 01/31/24 Lancets) blood sugar diagnostic (FreeStyle #50 ea 03/07/24 Lite Strips) glipizide 5 mg tablet 5 mg PO BID #270 tabs 08/31/24 escitalopram oxalate 20 mg tablet 20 mg PO DAILY #90 tabs 10/01/24 metoprolol tartrate 25 mg tablet 25 mg PO BID #180 tabs 12/01/24 furosemide 40 mg tablet (Lasix) 40 mg PO DAILY #30 tabs 12/23/24 atorvastatin 80 mg tablet 80 mg PO BEDTIME #90 tabs 12/28/24 ferrous sulfate 325 mg (65 mg 325 mg PO DAILY #90 tabs 12/29/24 iron) tablet metformin 1,000 mg tablet 1,000 mg PO BID #180 tabs 01/06/25 omeprazole 20 mg capsule,delayed 20 mg PO DAILY@0630 #30 caps 01/27/25 release lorazepam 1 mg tablet (Ativan) 0.5 mg (1/2 x 1 mg) PO BID PRN 02/03/25 anxiety #30 tabs bisacodyl 10 mg/30 mL enema (Fleet 10 mg (30 mL) LA .COMPLEX PRN 02/18/25 Bisacodyl) constipation 30 days #888 mL lactulose 10 gram/15 mL oral 10 g (15 mL) PO TID PRN 02/18/25 solution Constipation 30 days #946 mL sennosides 8.6 mg tablet (senna) 17.2 mg (2 x 8.6 mg) PO BID PRN 02/18/25 constipation 90 days #360 tabs ipratropium 0.5 mg-albuterol 3 mg 3 ml inhalation Q6H PRN wheezing 02/23/25 (2.5 mg base)/3 mL nebulization #180 mL soln Allergies Allergy/AdvReac Type Severity Reaction Status Date / Time fluticasone furoate (From Allergy Intermediate Rash Verified 03/08/25 17:52 Trelegy Ellipta) vilanterol (From Trelegy Allergy Intermediate Rash Verified 03/08/25 17:52 Ellipta) umeclidinium (Incruse Allergy Unknown Hives Verified 03/08/25 17:52 Ellipta) Review of Systems Review of Systems: Unable to obtain full review of systems secondary to patient's condition PMFSH Past Medical History Attestation statement: The following information was validated with the patient. Medical History COPD, severe Cholelithiasis Pneumobilia Chronic lung disease Diabetes mellitus with hyperglycemia, without long-term current use of insulin Positive colorectal cancer screening using Cologuard test HTN (hypertension) History of adenomatous polyp of colon Acute on chronic respiratory failure with hypoxia and hypercapnia Respiratory failure with hypoxia and hypercapnia Bilateral carotid artery disease CAD (coronary artery disease) Anxiety and depression Anemia Chronic respiratory failure with hypoxia and hypercapnia Radiation fibrosis of lung Dyslipidemia History of pneumonia Bacteremia due to Enterococcus Diabetes mellitus with hyperglycemia, without long-term current use of insulin Urinary incontinence Asthma Lung cancer Skin cancer Surgical History Hx of heart artery stent History of esophagogastroduodenoscopy (EGD) Hx of colonoscopy Family History Family History Father Medical history non-contributory Mother Medical history non-contributory Unknown family medical history Lung collapse Brother No problems noted. Brother No problems noted. Son Substance use disorder Son No problems noted. Daughter No problems noted. Sister No problems noted. Sister No problems noted. Sister No problems noted. Sister No problems noted. Other HTN (hypertension) Social History Social History Household Members: Spouse Household Members Other:: grandson Housing: House Are you a primary daytime caregiver to a significant other at home: No Do you presently have visiting nurse or other home services: No Alcohol intake: never Comment: refusing all fall risk interventions Patient Tobacco Use Status: Former Tobacco user Tobacco use type: Cigarette e-Cigarette/Vaping Use: Never Used Advance Directives: Yes Advance Directives on File: Yes Advance Directives Date on File: 06/08/22 service: No Current occupational status: retired Cognitive needs: No Hearing needs: No Vision needs: No Physical Exam Exam: Exam: Appearance: Alert. lethargic oriented to self. In respiratory distress. Eyes: Pupils equal, round and reactive to light. ENT: Pharynx normal. Neck: Normal inspection. Neck supple. No lymph nodes noted. No crepitus CVS: Normal heart rate and rhythm. Pulses normal. Normal S1 and S2 Respiratory: diminished breath sounds bilaterally Abdomen: Soft and nontender. No rigidity. No distention. good BS x4 Skin: Skin warm and dry. Normal skin color. Normal skin turgor. Extremities: No lower extremity edema. Neurovascular intact to all extremities. No Lacerations. No Rash Neuro: Lethargic. No motor deficit. No sensory deficit. Moving all extermities. No slurred speech Vital Signs: Vital Signs: Last Vital Signs Pulse 103 H 03/08/25 19:45 Resp 21 H 03/08/25 19:45 BP 108/60 03/08/25 19:45 Pulse Ox 91 L 03/08/25 19:45 O2 Del Method BiPAP 03/08/25 19:45 Oxygen Flow Rate 2 03/08/25 17:44 BMI result Body Mass Index 37.1 Medications Administered Discontinued Medications Generic Name Dose Route Start Last Admin Trade Name Breana PRN Reason Stop Dose Admin Albuterol Sulfate 7.5 mg/ 0 mg 03/08/25 18:07 03/08/25 18:17 Albuterol/Ipratropium 3 ml INHALE 03/08/25 18:08 10 each ONCE ONE Administration Ceftriaxone Sodium 1 gm/ 50 mls @ 100 mls/hr 03/08/25 18:00 03/08/25 19:56 Sodium Chloride IV 03/08/25 18:29 Infused ONCE ONE Infusion Azithromycin 500 mg/ Sodium 250 mls @ 125 mls/hr 03/08/25 18:00 03/08/25 18:57 Chloride IV 03/08/25 19:59 125 mls/hr ONCE ONE Administration Medical Decision Making Medical Decision Making [facility] Narrative: significant respiratory distress with change in mental status. Likely consistent with patient's respiratory failure history. An ABG was drawn. X-ray ordered additional labs ordered. my initial blood gas showed a pH of 7.2 with a pCO2 of 102. Consistent with acute on chronic respiratory failure. Patient was started on BiPAP. Steroid was given. Additional neb treatment given. My interpretation patient's chest x-ray consistent with COPD/CHF. Cultures were obtained antibiotic was started. Patient's white count is 10. Hemoglobin is 10.2 which is baseline. Patient will require admission. My interpretation of his EKG showed a sinus rhythm heart rate is 100 LA QRS QTC normal no acute ST segment elevation. Case was consulted by the memorandum statement clerk team. Will re-evaluate patient in the ED. patient's BNP is normal I doubt patient has congestive heart failure. My interpretation patient's VBG showed improvement. Patient's pH came up to 7.27. PCO2 now in the 80s. Currently in stable condition awaiting admission to the intensive care unit Differential Diagnosis Differential Diagnoses: The differential diagnosis associated with the presentation includes Respiratory failure, pneumonia, congestive heart failure, Admission/Observation Consideration of admission/observation: Escalation of care including admission/observation considered Consult Healthcare Provider Management of the patient was discussed with: Liquor Maker ( memorandum statement clerk) Lab Data [facility] Lab Attestation statement: I reviewed the patient's lab results. 03/08/25 18:30 03/08/25 18:29 Labs: Lab Results 12/05/0203/08/25 03/08/25 Range/Units 18:04 18:29 18:30 WBC 10.7 (4.8-10.8) X10*3/uL RBC 3.72 L (4.60-5.80) X10*6/uL Hgb 10.2 L (14.0-18.0) g/dl Hct 35.6 L (42.0-52.0) % MCV 95.7 (80.0-98.0) fL MCH 27.4 (27.0-33.0) pg MCHC 28.7 L (31.0-36.0) g/dl RDW 14.9 (11.0-16.0) % Plt Count 217 (160-400) X10*3/uL MPV 10.4 (9.4-12.4) fL Immature Gran % (Auto) 1.7 H (0.0-0.4) % Neut % (Auto) 85.2 H (45-73) % Lymph % (Auto) 6.5 L (20-40) % Hartley % (Auto) 5.9 (2-11) % Eos % (Auto) 0.4 (0-4) % Baso % (Auto) 0.3 (0-2) % Lymph # (Auto) 0.7 L (1.2-4.9) X10*3/uL Hartley # (Auto) 0.6 (0.1-1.2) X10*3/uL Eos # (Auto) 0.0 (0.0-0.4) X10*3/uL Baso # (Auto) 0.0 (0.0-0.2) X10*3/uL Abs Immat Gran (auto) 0.18 H (0.00-0.03) X10*3/uL Absolute Neuts (auto) 9.2 H (2.0-8.3) x10*3/uL Absolute Nucleated RBC 0.000 (0.0-0.012) X10*3/uL Nucleated RBC % (auto) 0.0 (0.0-0.2) /100WBC Hold Blue Top SEE NOTE O2 Saturation 84.0 % ABG pH at Pt Temp 7.21 L (7.35-7.45) ABG pCO2 at Pt Temp 103 H* (32-45) mmHg ABG pO2 at Pt Temp 63 L (83-108) mmHg ABG HCO3 41 H (22-26) mmol/L ABG Base Excess (Actual) 9.8 mmol/L Sodium 143 (135-145) mmol/L Potassium 4.6 D (3.3-5.1) mmol/L Chloride 98 (96-108) mmol/L Carbon Dioxide 39 H (22-29) mmol/L Anion Gap 11 L (12-20) BUN 16 (9-16) mg/dL Creatinine 0.86 (0.5-1.4) mg/dL Estim Creat Clear Calc 70.3 Estimated GFR > 60 Random Glucose 243 H (60-115) mg/dL Lactic Acid 0.8 (0.5-2.0) mmol/L Calcium 9.0 (8.4-10.2) mg/dL Total Bilirubin 0.3 (0.0-1.0) mg/dL Direct Bilirubin 0.2 (0.0-0.5) mg/dL AST 20 (5-37) U/L ALT 18 (0-40) U/L Alkaline Phosphatase 89 (39-117) U/L Ammonia 22 (13-55) umol/L Troponin I High Sens 4.1 (<3.5-35.0) ng/L NT-Pro-B Natriuret Pep 202.6 (<300) pg/mL Total Protein 7.6 (6.5-8.0) g/dL Albumin 4.3 (3.5-5.0) g/dL Influenza Type A (PCR) NEGATIVE (Negative) Influenza Type B (PCR) NEGATIVE (Negative) RSV RNA Qual (PCR) NEGATIVE (Negative) SARS-CoV-2 RNA (RT-PCR) NEGATIVE (Negative) Independent Interpretation I performed an independent interpretation of an: EKG ( my interpretation patient's EKG as above) and Plain X-Ray ( signs of COPD and CHF. Bilateral infiltrate noted) Radiology Impression Discussion of test interpretation with radiology: I have reviewed the radiologist's reading. Independent Historian Clinical information obtained from an independent historian. History obtained from or confirmed by: EMS External Record Review External record reviewed: Inpatient record Chronic Conditions long history of COPD Social Determinants Patient?s care significantly limited by Social Determinants of Health including: Problems related to primary support group Discharge Plan Discharge Clinical Impression: Respiratory failure Patient Disposition: Admitted As Inpatient
[2025-03-08 18:07] LABS: ABG HCO3 41 mmol/L (22-26); ABG O2 % Saturation 84.0 %
[2025-03-08] MEDS: Albuterol Sulfate 7.5 MG, Albuterol/Iprat 2.5/0.5MG 3 ML 3 ML INHALE (18:17)
[2025-03-08 18:38] LABS: MANUAL DIFF FLAG NO
--- OUTSIDE RECORDS SUMMARY | 2025-03-08 18:51 | XMS_ITS | Clinical Summary ---
Author Organization 175 [facility] Address [address] [place] [address] Phone Care Team Providers Care Vp Corporate Development Name Role Phone Anne-Marie Muro MD Primary Care Provider [phone] Allergies No known active allergies Medications acetaZOLAMIDE [...] times a week. 6 each 5 Active azithromycin (Zithromax) 500 mg tablet Take 1 tablet (500 mg total) by mouth 3 (three) times a week. 36 each 5 04/06/20 25 Active ensifentrine 3 mg/2.5 mL suspension for nebulization Inhale 3 mg by mouth 2 (two) times a day. 225 mL 2 5 04/06/20 25 Active ensifentrine (Ohtuvayre) 3 mg/2.5 mL suspension for nebulization Inhale 3 mg by mouth 2 (two) times a day. 180 mL 2 5 02/11/20 25 Active Problems Patient Care Coordination No te Formatting of this note migh t be different from the original. I have discussed with patient and regarding his overall poor prognosis, advanced care planning was advised. Problem Noted Date Diagnosed Date Arteriosclerosis of coronary artery 01/06/2025 Gastroesophageal reflux disease without esophagi tis 01/06/2025 Generalized anxiety disorder 01/06/2025 Hypertension 01/06/2025 Acute and chronic respirator y failure with hypoxia ([facility] V24, [facility] V28) 10/06/2024 Type 2 diabetes mellitus wit hout complication, unspecified whether mcc insulin use 10/06/2024 Overview (01/06/2025): 01/06/25 Regulatory IMO Update Malignant neoplasm of skin 04/01/2006 Overview (01/06/2025): IMO update Obstructive chronic bronchit is with exacerbation ([facility] V24, [facility] V28) 01/01/2006 Chronic obstructive airway d isease ([facility] V24, [facility] V28) 03/29/2005 Hyperlipidemia 03/29/2005 Encounters Date Type Department Care Team Description 01/15/2025 Telephone Pulmonology - [place] [facility] [address] [place] [address] Linnette Marr MD 01/14/2025 Telephone Pulmonology - [place] [facility] [address] [place] [address] Magaly Estrada MA 01/11/2025 Telephone Pulmonology - [place] [facility] [address] [place] [id number] Maday Robledo MA 01/11/2025 Telephone Pulmonology [facility] [address] [facility] [address] [place] [address] Linnette Marr MD 01/06/2025 1:15 PM EDT Office Visit Pulmonology [facility] [address] [facility] [address] [place] [address] Linnette Marr MD Centrilobular emphysema ([facility] V24, [facility] V28) (Primary Dx); Acute and chronic respiratory failure with hypoxia ([facility] V24, [facility] V28); COPD, frequent exacerbations ([facility] V24, [facility] V28); Acute on chronic respiratory failure with hypoxia and hypercapnia ([facility] V24, [facility] V28); Obesity (BMI 30-39.9); Hypoxemia from Last 3 Months Surgical History Surgery [...] Coronary atherosclerosis of unspecified type of vessel, chipewwa or graft 05/30/2011 DX:Coronary atherosclerosis of unspecified type of vessel, chipewwa or graft Family History Medical History Relation Name Comments Other: heart trouble Sister 1 Relation Name Status Comments Sister 1 Sister 2 Social History Tobacco Use Types Packs/Day Years Used Date Smoking Tobacco: Former Cigarettes 0.5 Q uit: 06/20/2006 Passive Smoke Exposure: Past Smokeless Tobacco: Never Tobacco Cessation:Counseling Given: Not Answered Alcohol Use Standard Drinks/Week Comments Not Asked 0 (1 standard drink = 0.6 oz pur e alcohol) Sex and Gender Information Value Date Recorded Sex Assigned at Not on file Legal Sex Male 10:27 PM EST Gender Identity Not on file Sexual Orientation Not on file Obstetrics History Last Filed Vital Signs Vital Sign Reading Time Taken Comments Blood Pressure 110/60 01/06/2025 1:21 PM EDT Pulse 78 01/06/2025 1:21 PM EDT Temperature 36.1 C (97 F) 01/06/2025 1:21 PM EDT Respiratory Rate 20 01/06/2025 1:21 PM EDT Oxygen Saturation 93% 01/06/2025 1:21 PM EDT 4l OF OXYGEN Inhaled Oxygen Concentration - - Weight 86.2 kg (190 lb) 01/06/2025 1:21 PM EDT Height 167.6 cm (5' 6 ) 01/06/2025 1:21 PM EDT Body Mass Index 30.67 01/06/2025 1:21 PM EDT Plan of Treatment Upcoming Encounters Date Type Department Care Team (Late st Contact Info) Description 04/12/2025 1:30 PM EST Office Visit Pulmonology - [address] [place] [address] Linnette Marr MD [address] [place] [phone] Health Maintenance Due Date Last Done Comments Diabetes: Annual GFR (Glomerular Filtration Rate) 1950 Diabetes: Annual Foot Exam 01/31/1960 Diabetes: Annual Retina Eye Exam 01/31/1960 DTaP,Tdap,and Td Vaccines (1 - Tdap) 1969 Zoster Vaccines (1 of 2) 01/31/2000 Pneumococcal Vaccine: 50+ Years (3 of 3 [...] 2024 9, 01/20/2018, 01/03/2017, Additional history exists RSV Immunization Adult Patients (1 - 1-dose 75+ series) 2025 Colorectal Cancer Screening: FIT-DNA (Cologuard) 01/22/2027 01/23/2024, [...] age to complete this topic Insurance MEDICARE [facility] Advance Directives Documents on File Type Date Recorded Patient Expediter Clerk Expl anation Health Care Decision (hx) 11/09/2023 AD MCDERMOTT DIRECTIVE Health Care Decision (hx) 11/07/2023 AD MCDERMOTT DIRECTIVE Care Teams Vp Corporate Development Relationship Specialty Start Date End Date Anne-Marie Muro MD [address] [place] [address] PCP - General Internal Medicine 04/08/11
[2025-03-08 18:58] LABS: Ammonia 22 umol/L (13-55)
[2025-03-08 19:01] LABS: Hematocrit 35.6 % (42.0-52.0); Hemoglobin 10.2 g/dl (14.0-18.0); Imm Gran Abs Auto 0.18 X10*3/uL (0.00-0.03); Imm Gran Pct Auto 1.7 % (0.0-0.4); Lymphocytes Absolute Auto 0.7 X10*3/uL (1.2-4.9); Mean Corpuscular HGB Conc 28.7 g/dl (31.0-36.0); Mean Corpuscular Hemoglobin 27.4 pg (27.0-33.0); Mean Corpuscular Volume 95.7 fL (80.0-98.0); NRBC Abs Auto 0.000 X10*3/uL (0.0-0.012); NRBC Pct Auto 0.0 /100WBC (0.0-0.2); Platelet Count 217 X10*3/uL (160-400); Red Blood Count 3.72 X10*6/uL (4.60-5.80); White Blood Count 10.7 X10*3/uL (4.8-10.8)
[2025-03-08 19:08] LABS: Alanine Aminotransferase 18 U/L (0-40); Albumin Level 4.3 g/dL (3.5-5.0); Alkaline Phosphatase 89 U/L (39-117); Anion Gap 11 (12-20); Aspartate Amino Transferase 20 U/L (5-37); Blood Urea Nitrogen 16 mg/dL (9-16); Calcium 9.0 mg/dL (8.4-10.2); Carbon Dioxide 39 mmol/L (22-29); Chloride 98 mmol/L (96-108); Creatinine Clr Calc Pharmacy 70.3; Estimated Glomerular Filt Rate > 60; Potassium 4.6 mmol/L (3.3-5.1); Sodium 143 mmol/L (135-145); Total Protein 7.6 g/dL (6.5-8.0)
[2025-03-08 19:15] LABS: NT Pro B Type Natriuretic Pept 202.6 pg/mL (<300); Troponin-I High Sensitivity 4.1 ng/L (<3.5-35.0)
[2025-03-08 19:50] LABS: Resp Syncy Virus RNA Qual PCR NEGATIVE (Negative); SARS COV2 PCR INHOUSE NEGATIVE (Negative)
--- NOTE | 2025-03-08 19:57 | PM.CCHP ---
History of Present Illness Date of Service: 03/08/25 Attending physician on admission: Nic Sanchez Chief Complaint: Dyspnea The patient is a 75-year-old male with a past medical history of COPD (on 2-3 L at home), congestive heart failure, hypertension, hyperlipidemia, coronary artery disease, liver cirrhosis, obesity, anemia of chronic disease, anxiety, and depression who presented to the emergency department with dyspnea. ?Patient also noted to be more confused than his baseline. On arrival to the emergency department, slightly tachypneic, satting 90-91% on 2 L. ABG consistent with acute hypoxic and hypercapnic respiratory failure 7.21/103/63/43. Imaging: Chest x-ray:? Consistent with some pulmonary congestion ED Course: He received albuterol 7.5 mg, ceftriaxone 1 g and azithromycin 500 mg. ?Patient is placed on BiPAP. Review of Systems Review of Systems: As per HPI. All other systems reviewed and negative PMFSH Past Medical History Medical History COPD, severe Cholelithiasis Pneumobilia Chronic lung disease Diabetes mellitus with hyperglycemia, without long-term current use of insulin Positive colorectal cancer screening using Cologuard test HTN (hypertension) History of adenomatous polyp of colon Acute on chronic respiratory failure with hypoxia and hypercapnia Respiratory failure with hypoxia and hypercapnia Bilateral carotid artery disease CAD (coronary artery disease) Anxiety and depression Anemia Chronic respiratory failure with hypoxia and hypercapnia Radiation fibrosis of lung Dyslipidemia History of pneumonia Bacteremia due to Enterococcus Diabetes mellitus with hyperglycemia, without long-term current use of insulin Urinary incontinence Asthma Lung cancer Skin cancer Family History Family History Father Medical history non-contributory Mother Medical history non-contributory Unknown family medical history Lung collapse Brother No problems noted. Brother No problems noted. Son Substance use disorder Son No problems noted. Daughter No problems noted. Sister No problems noted. Sister No problems noted. Sister No problems noted. Sister No problems noted. Other HTN (hypertension) Surgical History Surgical History Hx of heart artery stent History of esophagogastroduodenoscopy (EGD) Hx of colonoscopy Social History Social History Household Members: Spouse Household Members Other:: grandson Housing: House Are you a primary continuum of care manager to a significant other at home: No Do you presently have visiting nurse or other home services: No Unable to assess alcohol history related to: Unknown Alcohol intake: never Comment: refusing all fall risk interventions Patient Tobacco Use Status: Former Tobacco user Tobacco use type: Cigarette Smoked in Last 30 Days: No e-Cigarette/Vaping Use: Never Used Currently Displaying Signs/Symptoms of Drug Intoxication Withdrawal: No Have you been hit, kicked, punched, or otherwise hurt by someone within the past year? If so, by whom?: No Do you feel safe in your current relationship?: Yes Is there a partner from a previous relationship who is making you feel unsafe now?: No Are you made to feel afraid or neglected: No Advance Directives: Yes Advance Directives Information Provided: Yes Advance Directives on File: Yes Advance Directives Date on File: 06/08/22 Do you have a plan to hurt others: No Plan Recently lost weight without trying: Unsure service: No Current occupational status: retired Cognitive needs: No Hearing needs: No Vision needs: No Meds Allergies Allergy/AdvReac Type Severity Reaction Status Date / Time fluticasone furoate (From Allergy Intermediate Rash Verified 03/08/25 17:52 Trelegy Ellipta) vilanterol (From Trelegy Allergy Intermediate Rash Verified 03/08/25 17:52 Ellipta) umeclidinium (Incruse Allergy Unknown Hives Verified 03/08/25 17:52 Ellipta) Active Medications: Current Medications Enoxaparin Sodium (Enoxaparin Sodium 40 Mg/0.4 Ml Syringe) 40 mg SUBCUT Q24H DUTCH Azithromycin 500 mg/ Sodium (Chloride) 250 mls @ 125 mls/hr IV ONCE ONE Stop: 03/08/25 19:59 Last Admin: 03/08/25 18:57 Dose: 125 mls/hr Home Medications ?Medication ?Instructions ?Recorded ?Confirmed ?Last Taken ?Type budesonide-formoterol HFA 160 2 puff inhalation BID Shortness Of 03/14/21 03/08/25 11/29/24 History mcg-4.5 mcg/actuation aerosol Breath Or Wheezing inhaler (Symbicort) calcium 600 mg (as 1 tab PO DAILY 08/04/21 03/08/25 12/17/24 History carbonate)-vitamin D3 10 mcg (400 unit) tablet Oxygen Home Use 06/14/22 02/18/25 Unknown History albuterol sulfate 90 mcg/actuation 2 puff inhalation Q4H PRN 09/24/24 03/08/25 09/23/24 21:00 History aerosol inhaler (Ventolin HFA) shortness of breath or wheezing aspirin 81 mg tablet 81 mg PO DAILY 11/11/24 03/08/25 03/08/25 History azithromycin 500 mg tablet 500 mg PO MOWEFR@0900 01/04/25 03/08/25 Unknown History Physical Exam Exam: Exam: ?General:? Alert oriented x3, on BiPAP ?HEENT:? Head is normocephalic, atraumatic, pupils equal round reactive to light accommodation bilaterally.? Extraocular movements appear intact.? Buccal mucosa is dry, Neck is supple without lymphadenopathy. ?Cardiac:? Sinus. Clear S1-S2, no murmurs rubs or gallops. ?Pulmonary:? Rhonchorous throughout. No wheezing. On BiPAP ?Abdomen:? ?Abdomen soft, non-tender, non-distended. Normal bowel sounds. No pulsatile mass. No hepatosplenomegaly. ?Musculoskeletal:? Moving all 4 extremities upon request a major joints, there is no crepitus or tenderness.? The strength is 5/5 bilaterally and throughout all 4 extremities.? Gait not assessed at this point. ?Neurologic:? cranial nerves 2-12 are grossly intact.? No focal deficits noted.Motor strength as above.?? ?Skin:? Bilateral lower extremity trace edema Vascular:? 2+ pulses upper and lower extremities distally.? Vital Signs: Vital Signs: Last Vital Signs Pulse 103 H 03/08/25 19:45 Resp 21 H 03/08/25 19:45 BP 108/60 03/08/25 19:45 Pulse Ox 91 L 03/08/25 19:45 O2 Del Method BiPAP 03/08/25 19:45 Oxygen Flow Rate 2 03/08/25 17:44 BMI result Body Mass Index 37.1 Results Labs 03/09/25 04:50 03/09/25 04:50 Labs: Laboratory Results - last 24 hr 03/08/25 03/08/25 03/08/25 18:04 18:29 18:30 MCV 95.7 MCH 27.4 MCHC 28.7 L RDW 14.9 Plt Count 217 MPV 10.4 Immature Gran % (Auto) 1.7 H Neut % (Auto) 85.2 H Lymph % (Auto) 6.5 L [place] % (Auto) 5.9 Eos % (Auto) 0.4 Baso % (Auto) 0.3 Lymph # (Auto) 0.7 L [place] # (Auto) 0.6 Eos # (Auto) 0.0 Baso # (Auto) 0.0 Abs Immat Gran (auto) 0.18 H Absolute Neuts (auto) 9.2 H Absolute Nucleated RBC 0.000 Nucleated RBC % (auto) 0.0 Hold Blue Top SEE NOTE O2 Saturation 84.0 ABG pH at Pt Temp 7.21 L ABG pCO2 at Pt Temp 103 H* ABG pO2 at Pt Temp 63 L ABG HCO3 41 H ABG Base Excess (Actual) 9.8 Anion Gap 11 L Estim Creat Clear Calc 70.3 Estimated GFR > 60 Random Glucose 243 H Lactic Acid 0.8 Calcium 9.0 Total Bilirubin 0.3 Direct Bilirubin 0.2 AST 20 ALT 18 Alkaline Phosphatase 89 Ammonia 22 Troponin I High Sens 4.1 NT-Pro-B Natriuret Pep 202.6 Total Protein 7.6 Albumin 4.3 Influenza Type A (PCR) NEGATIVE Influenza Type B (PCR) NEGATIVE RSV RNA Qual (PCR) NEGATIVE SARS-CoV-2 RNA (RT-PCR) NEGATIVE Assessment and Plan (1) Acute on chronic respiratory failure with hypoxia and hypercapnia: Status: Resolved (2) Acute exacerbation of chronic obstructive airways disease: Status: Resolved Plan 75-year-old male with a past medical history of COPD (on 2-3 L at home), congestive heart failure, hypertension, hyperlipidemia, coronary artery disease, liver cirrhosis, obesity, anemia of chronic disease, anxiety, and depression admitted to ICU for acute hypoxic and hypercapnic respiratory failure secondary to COPD exacerbation Neuro:? No acute issues. Cardiac:? Underlying hypertension/CAD/Congestive heart failure.? Hold metoprolol due to soft blood pressures. Pulmonary:? Acute hypoxic and hypercapnic respiratory failure secondary to COPD exacerbation. Will give systemic glucocorticoids, nebulized bronchodilators and Diamox.? Keep 02 saturation 88-92%.? No signs of acute infection shown in x-ray and normal lactate level. Received azithromycin in ED.?Will cont Renal:? No acute issues.?? Endo:? Underlying diabetes: ?On metformin, hold metformin/glipizide. ?Resume lisinopril when patient is no longer NPO. ?Q.6 hour POCs GI:? No acute issues. ID:? No acute issues Heme/Onc:? No acute issues. Psych:? No acute issues. Miscellaneous:? No acute issues. Prophylaxis:? lovenox Diet:? NPO while on BIPAP Critical care time spent:? 30 minutes Case discussed with Dr Sanchez
[2025-03-08 20:00] LABS: Venous Blood Gas Refer to POC result
[2025-03-08 20:00] LABS: VBG HCO3 40 mmol/L (22-26); VBG O2 % Saturation 90.0 %
--- NOTE | 2025-03-08 20:52 | PHA.MEDREC ---
Pharmacy Consult ? Medication Reconciliation Pharmacy has completed the medication reconciliation.Med rec complete, spoke to patient's and compared with pharmacy claim history.
[2025-03-08 22:31] LABS: ABG Refer to POC result
[2025-03-09] VITALS (27 sets, daily range): BP systolic 98–150; BP diastolic 49–82; PULSE 74–121; RESP 12–20; TEMP 36.6–36.9; O2SAT 89–98; BMI 40.6
[2025-03-09] LABS: Glucose, Whole Blood 251 mg/dL (60-115)
[2025-03-09] MEDS: Albuterol Sulfate (0.083%) 2.5 MG/3 ML VIAL.NEB INHALE (03:59)
[2025-03-09 04:59] LABS: VBG HCO3 34 mmol/L (22-26); VBG O2 % Saturation 87.0 %
[2025-03-09 05:17] LABS: MANUAL DIFF FLAG NO
[2025-03-09 05:20] LABS: Hematocrit 31.8 % (42.0-52.0); Hemoglobin 9.1 g/dl (14.0-18.0); Imm Gran Abs Auto 0.04 X10*3/uL (0.00-0.03); Imm Gran Pct Auto 0.8 % (0.0-0.4); Lymphocytes Absolute Auto 0.4 X10*3/uL (1.2-4.9); Mean Corpuscular HGB Conc 28.6 g/dl (31.0-36.0); Mean Corpuscular Hemoglobin 27.1 pg (27.0-33.0); Mean Corpuscular Volume 94.6 fL (80.0-98.0); NRBC Abs Auto 0.000 X10*3/uL (0.0-0.012); NRBC Pct Auto 0.0 /100WBC (0.0-0.2); Platelet Count 195 X10*3/uL (160-400); Red Blood Count 3.36 X10*6/uL (4.60-5.80); White Blood Count 5.2 X10*3/uL (4.8-10.8)
[2025-03-09 05:38] LABS: Albumin Level 4.0 g/dL (3.5-5.0); Anion Gap 15 (12-20); Blood Urea Nitrogen 17 mg/dL (9-16); Calcium 8.9 mg/dL (8.4-10.2); Carbon Dioxide 29 mmol/L (22-29); Chloride 101 mmol/L (96-108); Creatinine Clr Calc Pharmacy 69.5; Estimated Glomerular Filt Rate > 60; Magnesium 2.0 mg/dL (1.6-2.6); Potassium 4.3 mmol/L (3.3-5.1); Sodium 141 mmol/L (135-145)
--- NOTE | 2025-03-09 06:20 | PC.NURSE ---
Arrived to unit approx 2029 - Pt drowsy but arousable, alert and oriented. On Bipap, tolerating well. SR on tele, MAP > 65. Pt voiding in urinal, incontient urine x2. Skin intact. Repostions with assistance in bed. Around 0600, Bipap removed - ok per PABLITO Krishnamurthy. Placed on 2.5 L NC, tolerating well.?
[2025-03-09 07:50] LABS: Glucose, Whole Blood 214 mg/dL (60-115)
[2025-03-09] MEDS: Albuterol/Iprat 2.5/0.5MG 3 ML AMPUL.NEB INHALE ×4 (08:19→19:47)
[2025-03-09] MEDS: Sodium,Potassium Phosphates POWD.PACK 2 PACKET PO (08:31)
[2025-03-09 09:17] LABS: Venous Blood Gas Refer to POC result
--- NOTE | 2025-03-09 11:32 | MHC.CM.PN ---
Met with pt to discuss d/c planning needs: pt resides w/spouse, has [employer] for home O2 needs and states he does not want/require VNA services. Spouse to transport. HCP on file and verified: IMM in chart. CM to follow for finalization of d/c plan.
[2025-03-09 11:51] LABS: Glucose, Whole Blood 309 mg/dL (60-115)
--- NOTE | 2025-03-09 12:23 | PM.CCPN ---
Subjective Subjective Date of Service: 03/09/25 Interval History: Doing better this morning Off BiPAP support, saturation stable on nasal cannula 2 L Critical Care Time (minutes): 35 Physical Exam Vital Signs: Vital Signs: Last Vital Signs Temp 98.5 F 03/09/25 08:00 Pulse 91 03/09/25 11:36 Resp 18 03/09/25 11:36 BP 130/64 03/09/25 11:00 Pulse Ox 93 03/09/25 11:00 O2 Del Method Nasal Cannula 03/09/25 11:00 O2 Flow Rate 2.5 03/09/25 11:00 FiO2 35 03/09/25 05:00 Oxygen Flow Rate 2 03/08/25 17:44 BMI result Body Mass Index 40.6 General: Elderly male in mild acute distress, ill appearing and tired appearing Nutritional Appearance: well nourished and overweight Eyes: appearance normal, both eyes and all related structures; Alignment and Position: alignment normal and position normal Neck: No lymphadenopathy, no thyromegaly Resp: bilateral air entry equal, occasional added sounds present Cardio: Regular rate, regular rhythm; Heart sounds: S1 normal heart sound present and S2 normal heart sound present GI: soft, nontender, no guarding, no hepatosplenomegaly : bladder normal to inspection, bladder normal to palpation, no renal angle tenderness Skin: no rashes or lesions noted and elasticity normal Neuro: oriented to person, oriented to place, oriented to time and moves all extremities Objective Data Labs 03/09/25 04:50 03/09/25 04:50 Labs: Laboratory Results - last 24 hr 03/08/25 03/08/25 03/08/25 18:04 18:29 18:30 WBC 10.7 RBC 3.72 L Hgb 10.2 L Hct 35.6 L MCV 95.7 MCH 27.4 MCHC 28.7 L RDW 14.9 Plt Count 217 MPV 10.4 Immature Gran % (Auto) 1.7 H Neut % (Auto) 85.2 H Lymph % (Auto) 6.5 L [place] % (Auto) 5.9 Eos % (Auto) 0.4 Baso % (Auto) 0.3 Lymph # (Auto) 0.7 L [place] # (Auto) 0.6 Eos # (Auto) 0.0 Baso # (Auto) 0.0 Abs Immat Gran (auto) 0.18 H Absolute Neuts (auto) 9.2 H Absolute Nucleated RBC 0.000 Nucleated RBC % (auto) 0.0 Hold Blue Top SEE NOTE O2 Saturation 84.0 ABG pH at Pt Temp 7.21 L ABG pCO2 at Pt Temp 103 H* ABG pO2 at Pt Temp 63 L ABG HCO3 41 H ABG Base Excess (Actual) 9.8 VBG pH VBG pCO2 VBG pO2 VBG HCO3 VBG O2 Saturation VBG Base Excess Sodium 143 Potassium 4.6 D Chloride 98 Carbon Dioxide 39 H Anion Gap 11 L BUN 16 Creatinine 0.86 Estim Creat Clear Calc 70.3 Estimated GFR > 60 POC Glucose Random Glucose 243 H Lactic Acid 0.8 Calcium 9.0 Phosphorus Magnesium Total Bilirubin 0.3 Direct Bilirubin 0.2 AST 20 ALT 18 Alkaline Phosphatase 89 Ammonia 22 Troponin I High Sens 4.1 NT-Pro-B Natriuret Pep 202.6 Total Protein 7.6 Albumin 4.3 Influenza Type A (PCR) NEGATIVE Influenza Type B (PCR) NEGATIVE RSV RNA Qual (PCR) NEGATIVE SARS-CoV-2 RNA (RT-PCR) NEGATIVE 03/08/25 03/08/25 03/09/25 19:48 23:48 04:50 WBC 5.2 RBC 3.36 L Hgb 9.1 L Hct 31.8 L MCV 94.6 MCH 27.1 MCHC 28.6 L RDW 14.6 Plt Count 195 MPV 10.5 Immature Gran % (Auto) 0.8 H Neut % (Auto) 88.6 H Lymph % (Auto) 6.9 L [place] % (Auto) 3.7 Eos % (Auto) 0.0 Baso % (Auto) 0.0 Lymph # (Auto) 0.4 L [place] # (Auto) 0.2 Eos # (Auto) 0.0 Baso # (Auto) 0.0 Abs Immat Gran (auto) 0.04 H Absolute Neuts (auto) 4.6 Absolute Nucleated RBC 0.000 Nucleated RBC % (auto) 0.0 Hold Blue Top O2 Saturation ABG pH at Pt Temp ABG pCO2 at Pt Temp ABG pO2 at Pt Temp ABG HCO3 ABG Base Excess (Actual) VBG pH 7.27 L VBG pCO2 85 VBG pO2 67 VBG HCO3 40 H VBG O2 Saturation 90.0 VBG Base Excess 10.2 Sodium 141 Potassium 4.3 Chloride 101 Carbon Dioxide 29 Anion Gap 15 BUN 17 H Creatinine 0.87 Estim Creat Clear Calc 69.5 Estimated GFR > 60 POC Glucose 251 H Random Glucose 238 H Lactic Acid Calcium 8.9 Phosphorus 2.4 L Magnesium 2.0 Total Bilirubin Direct Bilirubin AST ALT Alkaline Phosphatase Ammonia Troponin I High Sens NT-Pro-B Natriuret Pep Total Protein Albumin 4.0 Influenza Type A (PCR) Influenza Type B (PCR) RSV RNA Qual (PCR) SARS-CoV-2 RNA (RT-PCR) 03/09/25 03/09/25 03/09/25 04:53 07:47 11:48 WBC RBC Hgb Hct MCV MCH MCHC RDW Plt Count MPV Immature Gran % (Auto) Neut % (Auto) Lymph % (Auto) [place] % (Auto) Eos % (Auto) Baso % (Auto) Lymph # (Auto) [place] # (Auto) Eos # (Auto) Baso # (Auto) Abs Immat Gran (auto) Absolute Neuts (auto) Absolute Nucleated RBC Nucleated RBC % (auto) Hold Blue Top O2 Saturation ABG pH at Pt Temp ABG pCO2 at Pt Temp ABG pO2 at Pt Temp ABG HCO3 ABG Base Excess (Actual) VBG pH 7.34 VBG pCO2 63 VBG pO2 59 VBG HCO3 34 H VBG O2 Saturation 87.0 VBG Base Excess 7.1 Sodium Potassium Chloride Carbon Dioxide Anion Gap BUN Creatinine Estim Creat Clear Calc Estimated GFR POC Glucose 214 H 309 H Random Glucose Lactic Acid Calcium Phosphorus Magnesium Total Bilirubin Direct Bilirubin AST ALT Alkaline Phosphatase Ammonia Troponin I High Sens NT-Pro-B Natriuret Pep Total Protein Albumin Influenza Type A (PCR) Influenza Type B (PCR) RSV RNA Qual (PCR) SARS-CoV-2 RNA (RT-PCR) Progress Note: A&P Assessment and plan (1) CAD (coronary artery disease): Status: Acute (2) Bilateral carotid artery disease: Status: Acute (3) Dyslipidemia: Status: Acute (4) Acute and chronic respiratory failure: Status: Acute (5) COPD, severe: Status: Acute Plan The patient is a 75-year-old male with a past medical history of COPD (on 2-3 L at home), congestive heart failure, hypertension, hyperlipidemia, coronary artery disease, liver cirrhosis, obesity, anemia of chronic disease, anxiety, and depression who presented to the emergency department with dyspnea COPD exacerbation: Patient has a long history of chronic COPD with multiple hospitalizations with exacerbations He presented with hypercarbic respiratory failure with pCO2 above 100, so placed on BiPAP support last night with which his pCO2 has decreased well. This morning his off of BiPAP, saturation stable on 2 L nasal cannula oxygen which he has at home Chest x-ray suggestive of pulmonary congestion but his last echo was normal few months ago and BNP is also normal. His COVID and flu testing has been negative, we will get a respiratory pathogen panel Continue Solu-Medrol 40 mg q24hrs, duo nebs around the clock and azithromycin for antibiotics Diabetes mellitus; Restarted his home metformin and glipizide Blood sugars are on the higher side possibly due to Solu-Medrol Added sliding scale insulin CAD: No new symptoms Continue home aspirin and atorvastatin Anxiety/depression: Continue home escitalopram Prophylaxis: Lovenox We will transfer him to floor Quality Stroke Does the patient have a stroke diagnosis?: No VTE Prior VTE?: No VTE Risk Level:: Medical - moderate - high VTE Device Contraindication: N/A - Device Ordered VTE Drug Contraindication: N/A - Med Ordered
[2025-03-09] MEDS: Aspirin Enteric Coated 81 MG TABLET.DR PO (13:05)
[2025-03-09 14:05] LABS: Chlamydia pneumoniae PCR Not Detected (Not Detect.); Coronavirus 229E PCR Not Detected (Not Detect.); Coronavirus HKU1 PCR Not Detected (Not Detect.); Coronavirus NL63 PCR Not Detected (Not Detect.); Coronavirus OC43 PCR Not Detected (Not Detect.); RSV PCR Not Detected (Not Detect.); Rhino/Enterovirus PCR Not Detected (Not Detect.)
[2025-03-09 14:13] LABS: Influenza A H1 PCR Not Detected (Not Detect.); Influenza A H1-2009 PCR Not Detected (Not Detect.); Influenza A H3 PCR Not Detected (Not Detect.); SARS-CoV-2 PCR Not Detected (Not Detect.)
[2025-03-09 16:30] LABS: Glucose, Whole Blood 44 mg/dL (60-115)
[2025-03-09 16:41] LABS: Glucose, Whole Blood 67 mg/dL (60-115)
--- NOTE | 2025-03-09 18:00 | PC.NURSE ---
Patient alert and oriented, on 2.5L via NC sats 90-93%, bipap not used, in the room if needed. Patient voiding in urinal, SR with occasional ST. Patient's POC at noon 309, covered per sliding scale, at 1625 patient bs was 44, patient asymptomatic stating that he felt like his bs was low but was not able to specify what symptoms were experienced. Patient received 8oz or juice and recheck bs was 67, dinner tray provided. Patient's son at bedside stating patient has a history of unstable bs, where he will have quick drops in bs. Transfer order to [facility] received, report given to RN on [facility], patient was transported via wheelchair by staff accompanied by patient's son.
[2025-03-09 18:09] LABS: Glucose, Whole Blood 123 mg/dL (60-115)
[2025-03-09 20:40] LABS: Glucose, Whole Blood 194 mg/dL (60-115)
[2025-03-10] VITALS (11 sets, daily range): BP systolic 109–147; BP diastolic 56–72; PULSE 88–112; RESP 18–20; TEMP 36.4–37; O2SAT 90–97; BMI 28.6
[2025-03-10 07:04] LABS: Glucose, Whole Blood 225 mg/dL (60-115)
[2025-03-10] MEDS: Aspirin Enteric Coated 81 MG TABLET.DR PO (08:37)
[2025-03-10] MEDS: Albuterol/Iprat 2.5/0.5MG 3 ML AMPUL.NEB INHALE ×4 (08:39→20:14)
[2025-03-10 10:54] LABS: Glucose, Whole Blood 243 mg/dL (60-115)
--- NOTE | 2025-03-10 15:28 | MHC.CM.PN ---
Pt. ICU downgrade, no ready to DC, anticipate home, no services tomorrow.
[2025-03-10 16:26] LABS: Glucose, Whole Blood 39 mg/dL (60-115)
[2025-03-10 16:26] LABS: Glucose, Whole Blood 120 mg/dL (60-115)
--- NOTE | 2025-03-10 17:02 | P.PNIM_ITS ---
Subjective Subjective Date of Service: 03/10/25 Interval History: Transfered out of icu following management with acute hypoxic, hypercarbic resp failure d/t copd exacerbation reqiring non invasive resp support, overall is feeling better Physical Exam 2 Vital Signs: Vital Signs: Last Vital Signs Temp 97.8 F 03/10/25 15:19 Pulse 92 03/10/25 15:29 Resp 18 03/10/25 15:29 BP 122/63 03/10/25 15:19 Pulse Ox 93 03/10/25 15:19 O2 Del Method Nasal Cannula 03/10/25 15:19 O2 Flow Rate 2 03/10/25 15:19 FiO2 35 03/09/25 05:00 Oxygen Flow Rate 2 03/08/25 17:44 BMI result Body Mass Index 28.6 Const: Other: General: AO X 3, no acute distress Resp: CTA bilateral CVS: S1,S2,RRR GI: +BS, NT, no distention Skin: No rash Neuro: motor grossly intact Psych: appropriate affect Objective Data Active Medications Albuterol Sulfate (Albuterol Sulfate (0.083%) 2.5 Mg/3 Ml Vial.Neb) 2.5 mg INHALE Q4H PRN PRN Reason: Shortness of Breath/Wheezing Last Admin: 03/09/25 03:59 Dose: 2.5 mg Documented By: MADI Albuterol/Ipratropium (Albuterol/Iprat 2.5/0.5mg 3 Ml Ampul.Neb) 3 ml INHALE RQ4H WHILE AWAKE [facility] Last Admin: 03/10/25 15:27 Dose: 3 ml Documented By: MISAEL Aspirin (Aspirin Enteric Coated 81 Mg Tablet.) 81 mg PO DAILY [facility] Last Admin: 03/10/25 08:37 Dose: 81 mg Documented By: TOI Atorvastatin Calcium (Atorvastatin Calcium 80 Mg Tablet) 80 mg PO BEDTIME [facility] Last Admin: 03/09/25 21:02 Dose: 80 mg Documented By: JANICE Azithromycin (Azithromycin 500 Mg Tablet) 500 mg PO Q24H [facility] Last Admin: 03/09/25 17:54 Dose: 500 mg Documented By: ROSALIO Dextrose (Dextrose 50 % 25 Gm/50 Ml Syringe) 25 gm IVPUSH Q15M PRN; Protocol PRN Reason: per Hypoglycemia Standing Ord. Enoxaparin Sodium (Enoxaparin Sodium 40 Mg/0.4 Ml Syringe) 40 mg SUBCUT Q24H [facility] Last Admin: 03/09/25 21:07 Dose: Not Given Documented By: JANICE Non-Admin Reason: Patient Refused Escitalopram Oxalate (Escitalopram Oxalate 20 Mg Tablet) 20 mg PO DAILY [facility] Last Admin: 03/10/25 08:45 Dose: 20 mg Documented By: TOI Glipizide (Glipizide 5 Mg Tablet) 5 mg PO BID [facility] Last Admin: 03/10/25 08:36 Dose: 5 mg Documented By: TOI Glucose (Glucose Gel 15 Gm Gel..Gram.) 15 gm PO Q15M PRN; Protocol PRN Reason: per Hypoglycemia Standing Ord. Lactulose (Lactulose 20 Gm/30 Ml Solution) 10 gm PO TID PRN PRN Reason: Constipation Lorazepam (Lorazepam 0.5 Mg Tablet) 0.5 mg PO BID PRN PRN Reason: Anxiety Last Admin: 03/10/25 02:39 Dose: 0.5 mg Documented By: JANICE Metformin HCl (Metformin Hcl 1,000 Mg Tablet) 1,000 mg PO BID [facility] Last Admin: 03/10/25 08:37 Dose: 1,000 mg Documented By: TOI Methylprednisolone Sodium Succinate (Methylprednisolone Sod Succ 40 Mg/Ml Vial) 40 mg IVPUSH Q24H [facility] Last Admin: 03/09/25 21:18 Dose: 40 mg Documented By: JANICE Senna (Sennosides 8.6 Mg Tablet) 17.2 mg PO BID PRN PRN Reason: Constipation Labs 03/09/25 04:50 03/09/25 04:50 Labs: Laboratory Results - last 24 hr 03/09/25 03/09/25 03/10/25 18:04 20:36 07:00 POC Glucose 123 H 194 H 225 H 03/10/25 03/10/25 03/10/25 10:50 16:00 16:22 POC Glucose 243 H 39 L* 120 H Microbiology Microbiology Results: Microbiology 03/08/25 18:32 Blood Culture - Preliminary Blood - Venous No growth after 24 hours. 03/08/25 18:29 Blood Culture - Preliminary Blood - Venous No growth after 24 hours. Assessment and Plan (1) COPD exacerbation: Status: Resolved (2) Chronic lung disease: Status: Inactive (3) Acute and chronic respiratory failure: Status: Acute Plan The patient is a 75-year-old male with a past medical history of COPD (on 2-3 L at home), congestive heart failure, hypertension, hyperlipidemia, coronary artery disease, liver cirrhosis, obesity, anemia of chronic disease, anxiety, and depression who presented to the emergency department with dyspnea COPD exacerbation: Patient has a long history of chronic COPD with multiple hospitalizations with exacerbations He presented with hypercarbic respiratory failure with pCO2 above 100, so placed on BiPAP support with good effect and ultimately transitioned back to nasal canula Chest x-ray suggestive of pulmonary congestion but his last echo was normal few months ago and BNP is also normal. His COVID, flu and respiratory panel are negative Continue Solu-Medrol 40 mg q24hrs, duo nebs, empiric azithromycin Diabetes mellitus; continue home metformin and glipizide Blood sugars are on the higher due to Solu-Medrol continue sliding scale insulin CAD: No new symptoms Continue home aspirin and atorvastatin Anxiety/depression: Continue home escitalopram Prophylaxis: Lovenox Total time managing care of this patient today: 45 minutes. Quality Stroke Does the patient have a stroke diagnosis?: No VTE Prior VTE?: No VTE Risk Level:: Medical - moderate - high VTE Device Contraindication: N/A - Device Ordered VTE Drug Contraindication: N/A - Med Ordered
[2025-03-10 20:24] LABS: Glucose, Whole Blood 152 mg/dL (60-115)
[2025-03-11] VITALS (7 sets, daily range): BP systolic 107–147; BP diastolic 54–79; PULSE 87–109; RESP 18–20; TEMP 36.7–36.8; O2SAT 91–98; BMI 36.0
[2025-03-11 07:03] LABS: Glucose, Whole Blood 224 mg/dL (60-115)
[2025-03-11] MEDS: Albuterol/Iprat 2.5/0.5MG 3 ML AMPUL.NEB INHALE ×3 (08:02→15:32)
[2025-03-11] MEDS: Aspirin Enteric Coated 81 MG TABLET.DR PO (08:40)
[2025-03-11 10:54] LABS: Glucose, Whole Blood 246 mg/dL (60-115)
--- NOTE | 2025-03-11 13:04 | P.DS_ITS ---
DS: Providers Provider Date of Service: 03/11/25 Date of admission: 03/08/25 19:36 Date of discharge: 03/11/25 Primary care physician: Anne-Marie Muro MD DS: Diagnosis Discharge Diagnosis (1) COPD exacerbation: Status: Resolved (2) Acute and chronic respiratory failure: Status: Acute DS: Summary Hospital Course Hospital Course: admission hpi Chief Complaint: Dyspnea The patient is a 75-year-old male with a past medical history of COPD (on 2-3 L at home), congestive heart failure, hypertension, hyperlipidemia, coronary artery disease, liver cirrhosis, obesity, anemia of chronic disease, anxiety, and depression who presented to the emergency department with dyspnea. ?Patient also noted to be more confused than his baseline. On arrival to the emergency department, slightly tachypneic, satting 90-91% on 2 L. ABG consistent with acute hypoxic and hypercapnic respiratory failure 7.21/103/63/43. Imaging: Chest x-ray:? Consistent with some pulmonary congestion ED Course: He received albuterol 7.5 mg, ceftriaxone 1 g and azithromycin 500 mg. ?Patient is placed on BiPAP. hospital course The patient is a 75-year-old male with a past medical history of COPD (on 2-3 L at home), congestive heart failure, hypertension, hyperlipidemia, coronary artery disease, liver cirrhosis, obesity, anemia of chronic disease, anxiety, and depression who presented to the emergency department with dyspnea The patient has a long-standing history of chronic COPD with multiple prior hospitalizations for exacerbations. He presented in hypercapnic respiratory failure with a pCO? >100 and was initiated on BiPAP with good response, later transitioning back to nasal cannula. Chest X-ray shows findings suggestive of pulmonary congestion; however, his most recent echocardiogram from a few months ago was normal, and BNP is within normal limits. COVID-19, influenza, and the respiratory pathogen panel are all negative. Continue Solu-Medrol 40 mg IV every 24 hours, DuoNebs, and empiric azithromycin. The patient is currently doing well and prefers to return home rather than transfer to a rehabilitation facility. Diabetes mellitus; resume home meds CAD: No new symptoms Continue home aspirin and atorvastatin Anxiety/depression: Continue home escitalopram Time Attestation Discharge Coordination Time (in mins): 45 Quality: Safe Use of Opioids Does Pt have an Active Cancer Diagnosis on the Problem List?: No Quality: Stroke Does the patient have a stroke diagnosis?: No Physical Exam Vital Signs: Vital Signs: Last Vital Signs Temp 98.2 F 03/11/25 07:21 Pulse 95 03/11/25 11:31 Resp 18 03/11/25 11:31 BP 136/79 03/11/25 07:21 Pulse Ox 94 03/11/25 07:21 O2 Del Method Nasal Cannula 03/11/25 07:21 O2 Flow Rate 2 03/11/25 07:21 FiO2 35 03/09/25 05:00 Oxygen Flow Rate 2 03/08/25 17:44 BMI result Body Mass Index 36.0 DS: Data Data Completed and Pending Completed studies during hospitalization [Text1]: Procedures Assistance with Respiratory Ventilation, Less than 24 Consecutive Hours, Continuous Positive Airway Pressure (12/17/24) Excision of Rectum, Via Natural or Artificial Opening Endoscopic, Diagnostic (05/26/24) Excision of Sigmoid Colon, Via Natural or Artificial Opening Endoscopic, Diagnostic (05/26/24) Excision of Transverse Colon, Via Natural or Artificial Opening Endoscopic, Diagnostic (05/26/24) Irrigation of Lower GI using Irrigating Substance, Via Natural or Artificial Opening (07/29/22) Labs on day of discharge: Laboratory Results - last 24 hr 03/10/25 03/10/25 03/10/25 16:00 16:22 20:20 POC Glucose 39 L* 120 H 152 H 03/11/25 03/11/25 06:55 10:50 POC Glucose 224 H 246 H Preliminary micro results at discharge 03/08/25 18:32 Blood Culture - Preliminary Blood - Venous No growth after 48 hours. 03/08/25 18:29 Blood Culture - Preliminary Blood - Venous No growth after 48 hours. Discharge Plan Discharge Anticipated Discharge Date/Time: 03/11/25 13:05 Patient Disposition: Home Health Service Discharge Diagnosis: Acute on chronic hypoxic resp failure Referrals: Anne-Marie Muro MD [Primary Care Provider, Internal Medicine] - 1 Week Discharge Medications: Continued (DME) blood-glucose meter [FreeStyle Lite Meter] Kit See Rx Instructions .Route Qty: 1 0RF Rx Instructions: As directed (DME) lancets [FreeStyle Lancets] 28 gauge misc See Rx Instructions .Route Qty: 100 1RF Rx Instructions: Test blood sugar twice (DME) FreeStyle Lite Strips Strip See Rx Instructions .Route Qty: 50 7RF Rx Instructions: check fasting glucose once a day AC glipizide 5 mg tablet 5 mg PO BID Qty: 270 4RF escitalopram oxalate 20 mg tablet 20 mg PO DAILY Qty: 90 3RF metoprolol tartrate 25 mg tablet 25 mg PO BID Qty: 180 1RF atorvastatin 80 mg tablet 80 mg PO BEDTIME Qty: 90 1RF metformin 1,000 mg tablet 1,000 mg PO BID Qty: 180 1RF omeprazole 20 mg capsule,delayed release(DR/EC) 20 mg PO DAILY@0630 Qty: 30 1RF lorazepam [Ativan] 1 mg tablet 0.5 mg PO BID PRN (Reason: anxiety) Qty: 30 0RF Rx Instructions: Patient may request partial fill ipratropium-albuterol 0.5 mg-3 mg(2.5 mg base)/3 mL solution for nebulization 3 ml inhalation Q6H PRN (Reason: wheezing) Qty: 180 2RF budesonide-formoterol [Symbicort] 160-4.5 mcg/actuation Hfa Aerosol Inhaler 2 puff INHALATION BID calcium carbonate-vitamin D3 600 mg-10 mcg (400 unit) tablet 1 tab PO DAILY albuterol sulfate [Ventolin HFA] 90 mcg/actuation HFA aerosol inhaler 2 puff inhalation Q4H PRN (Reason: shortness of breath or wheezing) aspirin 81 mg Tablet 81 mg PO DAILY (DME) Oxygen Home Use Kit See Rx Instructions .Route Rx Instructions: As directed sennosides [senna] 8.6 mg tablet 17.2 mg PO BID PRN (Reason: constipation) 90 Days Qty: 360 1RF lactulose 10 gram/15 mL solution 10 g PO TID PRN (Reason: Constipation) 30 Days Qty: 946 3RF azithromycin 500 mg tablet 500 mg PO MOWEFR@0900 ferrous sulfate 325 mg (65 mg iron) tablet 325 mg PO DAILY Qty: 90 1RF Diet: Diabetic diet Activity on Discharge: As tolerated Stand Alone Forms: Patient Portal Discharge page Print Language: Belarusian Care Plan Goals: recovery from Health Concerns: recovery from copd exacerbation Plan of Treatment: take prednisone as directed, use inhalers as directed and follow up with your doctor in a week Assessment: see above
--- NOTE | 2025-03-11 15:21 | MHC.CM.PN ---
CM met with pt. to make sure he does not need home care services, he confirmed that he does not, he has been medically cleared to [place] he will go home via family transport, plan is self care.
[2025-03-11 16:29] LABS: Glucose, Whole Blood 62 mg/dL (60-115)
[2025-03-11 16:40] LABS: Glucose, Whole Blood 118 mg/dL (60-115)
== END 2025-03-11 16:42 | disposition home health service (06) | DRG 190 ==
LOC: HO.ED 19:08 → HO.ICU 19:37 → HO.IMC 03-09 17:12
PROVIDERS: Internal Medicine Critical Care Medicine; Admitting Provider Registered Nurse Community Health; Emergency Provider Emergency Medicine Emergency Medical Services; PCP Internal Medicine; Visit Provider Internal Medicine
DX: J44.1 Chronic obstructive pulmonary disease with (acute) exacerbation (principal); J96.01 Acute respiratory failure with hypoxia; J96.02 Acute respiratory failure with hypercapnia; I25.10 Atherosclerotic heart disease of native coronary artery without angina pectoris; I11.0 Hypertensive heart disease with heart failure; I50.9 Heart failure, unspecified; D63.8 Anemia in other chronic diseases classified elsewhere; F41.9 Anxiety disorder, unspecified; F32.A Depression, unspecified; K74.60 Unspecified cirrhosis of liver; E66.3 Overweight; E11.9 Type 2 diabetes mellitus without complications; Z68.36 Body mass index [BMI] 36.0-36.9, adult; Z20.822 Contact with and (suspected) exposure to COVID-19; Z99.81 Dependence on supplemental oxygen; Z79.82 Long term (current) use of aspirin; Z79.85 Long-term (current) use of injectable non-insulin antidiabetic drugs; Z79.899 Other long term (current) drug therapy
CPT/HCPCS: 36415; 71045; 80048; 80076; 82040; 82140; 82803; 82947; 83605; 83735; 83880; 84100; 84484; 85025; 87040; 87633; 87637; 93005; 94640; 94660; 99285; J0456; J0696; J1120; J1650; J2919

== ENCOUNTER → 2025-03-08 17:55 | Outpatient (BNV) | payer MEDICARE, SELFPAY | PROVIDERS: Admitting Provider Registered Nurse Community Health; Emergency Provider Emergency Medicine Emergency Medical Services; PCP Internal Medicine; Visit Provider Internal Medicine | DX: R07.9 Chest pain, unspecified (principal) | CPT/HCPCS: 93010 ==

== ENCOUNTER → 2025-03-08 17:57 | Outpatient (BNV) | payer MEDICARE, SELFPAY | PROVIDERS: Admitting Provider Registered Nurse Community Health; Emergency Provider Emergency Medicine Emergency Medical Services; PCP Internal Medicine; Visit Provider Student in an Organized Health Care Education/Training Program | DX: R06.02 Shortness of breath (principal) | CPT/HCPCS: 71045 ==

== ENCOUNTER → 2025-03-08 19:36 | Outpatient (BNV) | payer MEDICARE, SELFPAY | PROVIDERS: Admitting Provider Registered Nurse Community Health; Emergency Provider Emergency Medicine Emergency Medical Services; PCP Internal Medicine; Visit Provider Registered Nurse Community Health | DX: I25.10 Atherosclerotic heart disease of native coronary artery without angina pectoris (principal); I77.9 Disorder of arteries and arterioles, unspecified; E78.5 Hyperlipidemia, unspecified; J96.20 Acute and chronic respiratory failure, unspecified whether with hypoxia or hypercapnia; J44.9 Chronic obstructive pulmonary disease, unspecified; J96.21 Acute and chronic respiratory failure with hypoxia; J96.22 Acute and chronic respiratory failure with hypercapnia; J44.1 Chronic obstructive pulmonary disease with (acute) exacerbation | CPT/HCPCS: 99223; 99233 ==

== ENCOUNTER → 2025-03-08 19:36 | Outpatient (BNV) | payer MEDICARE, SELFPAY | PROVIDERS: Admitting Provider Registered Nurse Community Health; Emergency Provider Emergency Medicine Emergency Medical Services; PCP Internal Medicine; Visit Provider Internal Medicine | DX: J44.1 Chronic obstructive pulmonary disease with (acute) exacerbation (principal); J98.4 Other disorders of lung; J96.20 Acute and chronic respiratory failure, unspecified whether with hypoxia or hypercapnia | CPT/HCPCS: 99232 ==

== ENCOUNTER 2025-03-18 11:02 | Outpatient (AMB) | payer MEDICARE, SELFPAY ==
--- NOTE | 2025-03-18 11:05 | HO.NEPHOV_ITS ---
Vital Signs 03/18/25 11:06 Height 5 ft 6 in Weight 195 lb BMI 31.5 BP 98/50 L Blood Pressure Location Rt brachial Position Sitting Pulse 72 Pulse Source Pulse Oximeter Pulse Oximetry (%) 88 L Oxygen Delivery Method Room Air Intake Visit Reasons: ED F/U Gravity Meter Observer Required: No Accompanied by: Self / Same As Patient Allergies fluticasone furoate (From Trelegy Ellipta) Allergy (Intermediate, Verified 03/18/25 11:08) Rash vilanterol (From Trelegy Ellipta) Allergy (Intermediate, Verified 03/18/25 11:08) Rash umeclidinium (Incruse Ellipta) Allergy (Unknown, Verified 03/18/25 11:08) Hives Medication List - Last Reconciled 03/18/25 by Sam Nugent MD albuterol sulfate 90 mcg/actuation (Ventolin HFA) 2 puffs inhalation Q4H PRN aspirin 81 mg PO DAILY atorvastatin 80 mg PO BEDTIME azithromycin 250 mg PO DAILY 2 days azithromycin 500 mg PO MOWEFR@0900 blood sugar diagnostic (FreeStyle Lite Strips) check fasting glucose once a day AC blood-glucose meter (FreeStyle Lite Meter kit) As directed budesonide-formoterol 160-4.5 mcg/actuation (Symbicort) 2 puffs inhalation BID calcium carbonate-vitamin D3 600 mg-10 mcg (400 unit) 1 tab PO DAILY escitalopram oxalate 20 mg PO DAILY ferrous sulfate 325 mg PO DAILY glipizide 5 mg PO BID ipratropium-albuterol 0.5 mg-3 mg(2.5 mg base)/3 mL 3 mL inhalation Q6H PRN lactulose 10 grams (15 mL) PO TID PRN 30 days lancets (FreeStyle Lancets) Test blood sugar twice lorazepam (Ativan) 0.5 mg (1/2 x 1 mg) PO BID PRN metformin 1,000 mg PO BID metoprolol tartrate 25 mg PO BID omeprazole 20 mg PO DAILY@0630 Oxygen Home Use As directed prednisone See Taper mg PO DIRECTED sennosides (senna) 17.2 mg (2 x 8.6 mg) PO BID PRN 90 days HPI Comments Details: History of Present Illness The patient is a 75 year old male presenting for a follow-up visit for acute kidney injury. He was recently hospitalized on the 4th and of the month for dyspnea secondary to COPD. His kidney function has since improved, with a recent creatinine of 0.87 mg/dL, down from a previous level of over 2 mg/dL. The patient continues to experience poor breathing, reporting a sensation of trapped mucus that he cannot expectorate, which worsens his breathing. He uses an albuterol inhaler and is currently taking prednisone for his lung condition. The patient's blood glucose is not well-controlled, with home readings as high as 180 mg/dL, which is partly attributed to his prednisone use. He reports an episode of hypoglycemia during his recent hospitalization, which he believes was caused by excessive insulin administration. He has developed swelling in his legs, with one leg more swollen than the other. He has a water pill, likely furosemide, at home but has not taken it for a while. His weight has increased from 190 pounds last week to 195 pounds today. The patient also notes frequent urination, which may be related to high blood sugar. Results - Labs: Recent serum creatinine is 0.87 mg/dL. - Blood Glucose Monitoring: Home readings are up to 180 mg/dL. [facility] Medical History COPD, severe Cholelithiasis Pneumobilia Chronic lung disease Diabetes mellitus with hyperglycemia, without long-term current use of insulin Positive colorectal cancer screening using Cologuard test HTN (hypertension) History of adenomatous polyp of colon Acute on chronic respiratory failure with hypoxia and hypercapnia Respiratory failure with hypoxia and hypercapnia Bilateral carotid artery disease CAD (coronary artery disease) Anxiety and depression Anemia Chronic respiratory failure with hypoxia and hypercapnia Radiation fibrosis of lung Dyslipidemia History of pneumonia Bacteremia due to Enterococcus Diabetes mellitus with hyperglycemia, without long-term current use of insulin Urinary incontinence Asthma Lung cancer Skin cancer Surgical History Hx of heart artery stent History of esophagogastroduodenoscopy (EGD) Hx of colonoscopy Family History Father Medical history non-contributory Mother Medical history non-contributory Unknown family medical history Lung collapse Brother No problems noted. Brother No problems noted. Son Substance use disorder Son No problems noted. Daughter No problems noted. Sister No problems noted. Sister No problems noted. Sister No problems noted. Sister No problems noted. Other HTN (hypertension) Social History Household Members: Spouse Household Members Other:: grandson Housing: House Are you a primary healthcare market consultant to a significant other at home: No Do you presently have visiting nurse or other home services: No Alcohol intake: never Comment: refused bed exit alarm. Patient Tobacco Use Status: Former Tobacco user Tobacco use type: Cigarette e-Cigarette/Vaping Use: Never Used Advance Directives Date on File: 06/08/22 service: No Current occupational status: retired Cognitive needs: No Hearing needs: No Vision needs: No Physical Exam Vital Signs: Last Vital Signs Pulse 72 03/18/25 11:06 BP 98/50 L 03/18/25 11:06 Pulse Ox 88 L 03/18/25 11:06 Oxygen Delivery Method Room Air 03/18/25 11:06 BMI result Body Mass Index 31.5 Comfortable Neck supple no JVD. Lungs entry equal - [place] rhonchi Heart S1-S2 heard no gallop or rub. Abdomen soft nontender. Neuro alert awake oriented. No asterixis. Extremities 1+ edema. Results Reviewed Nephrology Results: Hgb, (14.0-18.0) 9.1 g/dl L 03/09/25 WBC, (4.8-10.8) 5.2 X10*3/uL 03/09/25 Plt Count, (160-400) 195 X10*3/uL 03/09/25 Sodium, (135-145) 141 mmol/L 03/09/25 Potassium, (3.3-5.1) 4.3 mmol/L 03/09/25 Chloride, (96-108) 101 mmol/L 03/09/25 Carbon Dioxide, (22-29) 29 mmol/L 03/09/25 BUN, (9-16) 17 mg/dL H 03/09/25 Creatinine, (0.5-1.4) 0.87 mg/dL 03/09/25 Calcium, (8.4-10.2) 8.9 mg/dL 03/09/25 Phosphorus, (2.7-4.5) 2.4 mg/dL L 03/09/25 Assessment & Plan Assessment & Plan (1) DANNA (acute kidney injury): Code(s): N17.9 - Acute kidney failure, unspecified Category: Medical Plan: DANNA most likely due to hypoperfusion and possible contrast nephropathy. Renal function is back to baselin e C r0.87 Avoid hypotension Continue to avoid nephrotoxic agents. (2) Edema: Code(s): R60.9 - Edema, unspecified Category: Medical Plan: Restart Lasix at 20 mg a day. Stay on low-sodium diet Medications: New furosemide (Lasix) 20 mg PO DAILY 90 tabs 1RF furosemide (Lasix) 20 mg PO DAILY 90 tabs 1RF Coding Level of Care Code Est Pt Level 4 (26177) Diagnoses DANNA (acute kidney injury) N17.9 Edema R60.9
[2025-03-18 11:06] VITALS: BP 98/50; PULSE 72; O2SAT 88; BMI 31.5
== END 2025-03-18 11:21 | disposition home or self-care (01) ==
LOC: HO.HKA 11:03
PROVIDERS: PCP Internal Medicine; Visit Provider Internal Medicine Hypertension Specialist
DX: N17.9 Acute kidney failure, unspecified (principal); R60.9 Edema, unspecified
CPT/HCPCS: 99214

== ENCOUNTER → 2025-03-18 11:02 | Outpatient (BNVA) | payer MEDICARE, SELFPAY | PROVIDERS: PCP Internal Medicine; Visit Provider Internal Medicine Hypertension Specialist | DX: N17.9 Acute kidney failure, unspecified (principal); R60.9 Edema, unspecified | CPT/HCPCS: 99212 ==

== ENCOUNTER 2025-03-25 11:24 | Outpatient (AMB) | payer MEDICARE, SELFPAY ==
[2025-03-25 11:49] VITALS: BP 90/52; PULSE 62; RESP 18; TEMP 36.6; O2SAT 93; BMI 31.6
--- NOTE | 2025-03-25 11:49 | A.OFFPC_ITS ---
Vital Signs 03/25/25 11:49 Height 5 ft 6 in Weight 196 lb BMI 31.6 BP 90/52 L Blood Pressure Location Lt brachial Position Sitting Respiration 18 Pulse 62 Pulse Source Pulse Oximeter Temp 97.9 F Temp Source Oral Pulse Oximetry (%) 93 Oxygen Delivery Method Nasal Cannula Intake Visit Reasons: Pt is here today for his TCM Intake Note: Pt is here today for his TCM Ball Maker Required: No Allergies fluticasone furoate (From Trelegy Ellipta) Allergy (Intermediate, Verified 03/26/25 22:37) Rash vilanterol (From Trelegy Ellipta) Allergy (Intermediate, Verified 03/26/25 22:37) Rash umeclidinium (Incruse Ellipta) Allergy (Unknown, Verified 03/26/25 22:37) Hives Medication List - Last Reconciled 04/04/25 by Anne-Marie Muro MD albuterol sulfate 90 mcg/actuation (Ventolin HFA) 2 puffs inhalation Q4H PRN aspirin 81 mg PO DAILY atorvastatin 80 mg PO BEDTIME azithromycin 500 mg PO MOWEFR@0900 Held on 03/29/25. Instructions: Resume on 04/09/25. Resume post completion of Bactrim 10 day course blood sugar diagnostic (FreeStyle Lite Strips) check blood sugar twice a day blood-glucose meter (FreeStyle Lite Meter kit) As directed budesonide-formoterol 160-4.5 mcg/actuation (Symbicort) 2 puffs inhalation BID calcium carbonate-vitamin D3 600 mg-10 mcg (400 unit) 1 tab PO DAILY escitalopram oxalate 20 mg PO DAILY ferrous sulfate 325 mg PO DAILY furosemide (Lasix) 20 mg PO DAILY glipizide 5 mg PO BID ipratropium-albuterol 0.5 mg-3 mg(2.5 mg base)/3 mL 3 mL inhalation Q6H PRN lactulose 10 grams (15 mL) PO TID PRN 30 days lancets (FreeStyle Lancets) Test blood sugar twice a day lorazepam (Ativan) 0.5 mg (1/2 x 1 mg) PO BID PRN metformin 1,000 mg PO BID metoprolol tartrate 25 mg PO BID omeprazole 20 mg PO DAILY@0630 Oxygen Home Use As directed prednisone 40 mg (2 x 20 mg) PO DAILY 10 days sennosides (senna) 17.2 mg (2 x 8.6 mg) PO BID PRN 90 days sulfamethoxazole-trimethoprim 800-160 mg (Bactrim DS) 1 tab PO Q12H 10 days Tobacco use date assessed: 03/25/25 Fall risk assessment: No Falls in past year Last assessed Fall Risk: 03/25/25 Dental Screening Dental Screen Date: 03/25/25 Did you have a dental visit in the last 12 months?: No Did you have a dental problem in the last 6 months where you did not have access to dental care?: No Was dental information given to patient?: No HPI HPI Comments History of Present Illness Details 75-year-old male with a past medical his tory of COPD (on 2-3 L at home), congestive heart failure, hypertension, hyperlipidemia, coronary artery disease, liver cirrhosis, obesity, anemia of chronic disease, anxiety, and depression here today for a TCM visit. He presented to the emergency department on 03/08/25 with dyspnea, and also noted to be more confused than his baseline. He was slightly tachypneic, satting 90-91% on 2 L. ABG consistent with acute hypoxic and hypercapnic respiratory failure 7.21/103/63/43. His Chest x-ray was consistent with some pulmonary congestion, received albuterol 7.5 mg, ceftriaxone 1 g and azithromycin 500 mg and placed on BiPAP with good response, and later transitioned to back to nasal cannula. His most recent echocardiogram from a few months ago was normal, and BNP was within normal limits. COVID-19, influenza, and the respiratory pathogen panel all came back negative. He was continued on Solu-Medrol 40 mg IV every 24 hours, DuoNebs, and empiric azithromycin. He started feeling better and preferred to go home instead of transferring to a rehabilitation facility. He was discharged to home on 03/11/2025 During his hospital stay, the patient experienced three episodes of hypoglycemia. These episodes occurred after he took his glipizide between meals, and he subsequently passed out, requiring IV glucose for treatment. The patient reports that he has adjusted the dosage himself since returning home Has known CAD, with no new symptoms. Continued on home aspirin and atorvastatin Anxiety/depression stable and controlled on Escitalopram. He is breathing started improving .He currently uses a nebulizer with albuterol twice daily, with the option to increase to four times daily as needed, but reports difficulty expectorating his phlegm especially in the morning when he is wakes up. [facility] Medical History COPD, severe Cholelithiasis Pneumobilia Chronic lung disease Diabetes mellitus with hyperglycemia, without long-term current use of insulin Positive colorectal cancer screening using Cologuard test HTN (hypertension) History of adenomatous polyp of colon Acute on chronic respiratory failure with hypoxia and hypercapnia Respiratory failure with hypoxia and hypercapnia Bilateral carotid artery disease CAD (coronary artery disease) Anxiety and depression Anemia Chronic respiratory failure with hypoxia and hypercapnia Radiation fibrosis of lung Dyslipidemia History of pneumonia Bacteremia due to Enterococcus Diabetes mellitus with hyperglycemia, without long-term current use of insulin Urinary incontinence Asthma Lung cancer Skin cancer Surgical History Hx of heart artery stent History of esophagogastroduodenoscopy (EGD) Hx of colonoscopy Family History Father Medical history non-contributory Mother Medical history non-contributory Unknown family medical history Lung collapse Brother No problems noted. Brother No problems noted. Son Substance use disorder Son No problems noted. Daughter No problems noted. Sister No problems noted. Sister No problems noted. Sister No problems noted. Sister No problems noted. Other HTN (hypertension) Social History Household Members: Spouse Household Members Other:: grandson Housing: House Are you a primary ambulatory care to a significant other at home: No Do you presently have visiting nurse or other home services: No Alcohol intake: never Comment: refused bed exit alarm. Patient Tobacco Use Status: Former Tobacco user Tobacco use type: Cigarette e-Cigarette/Vaping Use: Never Used Advance Directives Date on File: 06/08/22 service: No Current occupational status: retired Cognitive needs: No Hearing needs: No Vision needs: No Questionnaire PHQ-9 Over the last 2 weeks, how often have you been bothered by any of the following problems? 1. Little interest or pleasure in doing things: more than half the days 2. Feeling down, depressed, or hopeless: not at all 3. Trouble falling or staying asleep, or sleeping too much: several days 4. Feeling tired or having little energy: nearly every day 5. Poor appetite or overeating: several days 6. Feeling bad about yourself - or that you are a failure or have let yourself or your family down: not at all 7. Trouble concentrating on things, such as reading the newspaper or watching television: several days 8. Moving or speaking so slowly that other people could have noticed. Or the opposite - being so fidgety or restless that you have been moving around a lot more than usual: several days 9. Thoughts that you would be better off or of hurting yourself in some way: not at all Total score: 9 Depression Screening Interpretation: Positive Depression Screening Follow-up: Existing condition, In treatment and Community Mental Health Worker F/U Depression Screening Done: Yes Source: Developed by Drs. Finn Stevens, Klaudia Bonilla, Reinaldo Suero and colleagues, with an educational lolita from [employer]. Thrive Questionnaire Date Thrive assessed: 12/09/24 I am a: Patient What is your living situation today?: I have a steady place to live Within the past 12 months, did the food you bought not last and you didn't have the money to get more?: Sometimes True Within the past 12 months, did you worry whether your food would run out before you got money to buy more?: Sometimes True Do you have trouble paying for medicines?: No Do you have trouble getting transportation to medical appointments?: No Do you have trouble paying your heating and electricity bill?: No Do you have trouble taking care of your child, family member or friend?: Yes Do you have trouble with day-to-day activities such as bathing, preparing meals, shopping, managing finances, etc.?: Yes Are you currently unemployed and looking for a job?: No Are you interested in more education?: No Please select the resources that you would like help with: None Currently or been in a relationship where the following occur: No concerns reported THRIVE Score: 2 SAUMYA-7 AMB Questionnaire SAUMYA-7 Date SAUMYA - 7 assessed: 10/08/24 Source: Developed by Drs. Finn Stevens, Klaudia Bonilla, Reinaldo Suero and colleagues, with an educational lolita from [employer]. Review of Systems Const All systems reviewed & are unremarkable except as noted in HPI and below Physical exam (Primary Care) Vital Signs: Last Vital Signs Temp 97.9 F 03/25/25 11:49 Pulse 62 03/25/25 11:49 Resp 18 03/25/25 11:49 BP 90/52 L 03/25/25 11:49 Pulse Ox 93 03/25/25 11:49 Oxygen Delivery Method Nasal Cannula 03/25/25 11:49 BMI result Body Mass Index 31.6 Tobacco/Smoking Status: Tobacco use Status Tobacco use date assessed 03/25/25 03/25/25 12:04 Patient Tobacco Use Status Former Tobacco user 03/25/25 11:50 Tobacco use type Cigarette 03/25/25 11:50 e-Cigarette/Vaping Use Never Used 03/25/25 11:50 PHQ-9: PHQ-9 Score PHQ-9: Total score 9 04/04/25 19:17 Depression Screening Interpretation: Positive Depression Screening Follow-up: Existing condition, In treatment and Community Mental Health Worker F/U Thrive Assessment: Date of Thrive Assessment Date Thrive assessed 12/09/24 03/25/25 11:50 Currently or been in a relationship where the following occur: No concerns reported Const General: comfortable, no acute distress and well developed Orientation/consciousness: patient oriented x3 HENMT Head: Yes normal to inspection Ears: hearing grossly normal bilaterally General nose exam: Normal external nose present Face and sinus: Yes normal facial exam Eyes General: appearance normal, both eyes and all related structures Neck Neck: Yes normal visual inspection and Yes full ROM Resp Effort & Inspection: normal respiratory effort and able to speak in complete sentences Auscultation: no rales, no wheezes and diminished lung sounds diffuse Cardio Rate: regular rate Rhythm: regular rhythm Heart sounds: Murmur heart sound present GI Inspection: Yes obesity Palpation (GI): Soft to palpation, nontender and no guarding Auscultation: normal bowel sounds Skin General skin exam: no rashes or lesions noted Neuro General: patient oriented x3 Extrem General: Yes normal to inspection Psych Appearance: grossly normal and well kempt Mental Status: mental status grossly normal Speech and movement: Normal speech and movement present Affect: normal affect Results Reviewed Results Reviewed: Name: Fitz Reed Age/Sex: 75/M : 1950 Unit#: [id number] Attend Dr: Love Melgar MD Re03/27/25 Status: DIS IN Location: [facility] 450-1 Disch: 03/29/25 SPEC : [id number] PIPO: 03/28/25 STATUS: COMP REQ : [id number] RECD: 03/28/[address]: Polo Jones MD COMP: 03/28/25 ENTERED: 03/28/[address]: Chaitanya Lowe MA Physician,Unknown ORDERED: CBC Auto Diff, SLIDE REVIEW Test Result Flag Reference WBC 6.7 4.8-10.8 X10*3/uL RBC 3.50 L 4.60-5.80 X10*6/uL HGB 9.6 L 14.0-18.0 g/dl HCT 33.0 L 42.0-52.0 % MCV 94.3 80.0-98.0 fL MCH 27.4 27.0-33.0 pg MCHC 29.1 L 31.0-36.0 g/dl RDW 14.5 11.0-16.0 % PLT 217 160-400 X10*3/uL MPV 10.4 9.4-12.4 fL Neut Pct Auto 78.9 H 45-73 % ImGran Pct Auto 0.5 H 0.0-0.4 % Lymp Pct Auto 11.0 L 20-40 % [place] Pct Auto 8.0 2-11 % Eos Pct Auto 1.1 0-4 % Baso Pct Auto 0.5 0-2 % NRBC Pct Auto 0.0 0.0-0.2 /100WBC ANC Neut Abs # 5.3 2.0-8.3 x10*3/uL ImGran Abs Auto 0.03 0.00-0.03 X10*3/uL Lymph Abs Auto 0.7 L 1.2-4.9 X10*3/uL [place] Abs Auto 0.5 0.1-1.2 X10*3/uL Eos Abs Auto 0.1 0.0-0.4 X10*3/uL Baso Abs Auto 0.0 0.0-0.2 X10*3/uL NRBC Abs Auto 0.000 0.0-0.012 X10*3/uL SLIDE REVIEW VERIFIED robin: Fitz Reed Age/Sex: 75/M : 1950 Unit#: [id number] Attend Dr: Love Melgar MD Re03/27/25 Status: DIS IN Location: [place] [address] Disch: 03/29/25 SPEC : [id number] PIPO: 03/28/25 STATUS: COMP REQ : [id number] RECD: 03/28/[address]: Noe Krishnamurthy RESOLUTE PROFESSIONAL COMP: 03/28/25 ENTERED: 03/28/25- OTHR DR: Chaitanya Lowe Andrey MD Physician,Unknown ORDERED: BMP, Phos, MG, Alb Test Result Flag Reference Sodium 139 135-145 mmol/L Potassium 4.0 3.3-5.1 mmol/L CL 101 96-108 mmol/L CO2 29 22-29 mmol/L Gap 13 12-20 BUN 18 H 9-16 mg/dL Creat 0.95 0.5-1.4 mg/dL Estimated CrCl 73.2 eGFR (calculated from the MDRD study equation) and eCrCl (calculated from the Cockcroft-Gault equation) are based on different parameters and may not yield comparable results. If eCrCl result is absurd, please check patient's height/weight. eGFR > 60 Chronic Kidney Disease: Estimated GFR < 60 mL/min/1.73m2 Severe Kidney Disease: Estimated GFR < 15 mL/min/1.73m2 Glucose, Random 210 H 60-115 mg/dL CA 9.2 # 8.4-10.2 mg/dL Phosphorus 2.5 L 2.7-4.5 mg/dL Magnesium 2.1 1.6-2.6 mg/dL Alb 4.1 3.5-5.0 g/dL Coding Level of Care Code TCM Mod MDM <= 7 Days Diagnoses Hospital discharge follow-up Z09 COPD, severe J44.9 Anxiety and depression F41.9; F32.A Diabetes mellitus with hyperglycemia, without long-term current use of insulin E11.65 Chronic anemia D64.9 Assessment & Plan Assessment & Plan (1) Hospital discharge follow-up: Code(s): Z09 - Encounter for follow-up examination after completed treatment for conditions other than malignant neoplasm Category: Medical Plan: Continued on current home O2 use. And continued on current medications for treatment of diabetes namely glipizide and metformin at the same dose and continued with current inhalers. Patient is still taking Bactrim DS 1 tablet twice a day and azithromycin taken 500 mg 3 times a week was on hold until Bactrim prescription finished. Resume taking azithromycin after completion of 10 day course of Bactrim. (2) COPD, severe: Code(s): J44.9 - Chronic obstructive pulmonary disease, unspecified Category: Medical Plan: Continue on home O2 use at 3 L per nasal cannula, currently on tapering dose of prednisone. Finish prescription for Bactrim DS and then once finished, to resume taking azithromycin 500 mg taken 3 times a week prescribed by her coding compliance specialist. Continue with Symbicort 2 inhalations twice a day, rinse mouth after use and albuterol inhaler as needed for episodes of bronchospasm (3) Anxiety and depression: Code(s): F41.9 - Anxiety disorder, unspecified; F32.A - Depression, unspecified Category: Medical Plan: Continued on escitalopram 20 mg daily and has lorazepam to take as needed for acute anxiety attacks (4) Diabetes mellitus with hyperglycemia, without long-term current use of insulin: Code(s): E11.65 - Type 2 diabetes mellitus with hyperglycemia Category: Medical Plan: Diabetes control poor, likely due to having had several courses of steroid units both oral and intravenous. Will continue on glipizide and metformin at the same dose. Continue checking blood sugar at home at least twice a day before meals keep a record of the readings and bring it on next visit for review. Reminded about yearly eye exam, sees Dr. Grier. Does not want to get any of the vaccines that is recommended (5) Chronic anemia: Code(s): D64.9 - Anemia, unspecified Category: Medical Plan: Continue ferrous sulfate 325 mg daily. Medications: On Hold azithromycin Hold Comment: Resume on 04/09/25. Resume post completion of Bactrim 10 day course 500 mg PO MOWEFR@0900
== END 2025-03-25 12:38 | disposition home or self-care (01) ==
PROVIDERS: PCP Internal Medicine; Visit Provider Internal Medicine
DX: Z09 Encounter for follow-up examination after completed treatment for conditions other than malignant neoplasm (principal); J44.9 Chronic obstructive pulmonary disease, unspecified; F41.9 Anxiety disorder, unspecified; F32.A Depression, unspecified; E11.65 Type 2 diabetes mellitus with hyperglycemia; D64.9 Anemia, unspecified

== ENCOUNTER → 2025-03-25 11:24 | Outpatient (BNVA) | payer MEDICARE, SELFPAY | PROVIDERS: PCP Internal Medicine; Visit Provider Internal Medicine | DX: Z09 Encounter for follow-up examination after completed treatment for conditions other than malignant neoplasm (principal); J44.9 Chronic obstructive pulmonary disease, unspecified; F41.9 Anxiety disorder, unspecified; F32.A Depression, unspecified; E11.65 Type 2 diabetes mellitus with hyperglycemia; D64.9 Anemia, unspecified; Z13.31 Encounter for screening for depression | CPT/HCPCS: 96127; 99495 ==

== ENCOUNTER 2025-03-26 22:25 | Inpatient (IN) | payer MEDICARE, SELFPAY ==
--- NOTE | ~2025-03-26 | XR_ITS ---
CLINICAL HISTORY: sob 1 view chest x-ray Comparison: CR - XR CHEST 1V - 03/08/25 18:33 EST Findings: Prominent interstitial opacities, [id number]. Normal size heart. No acute fracture. IMPRESSION: 1. Prominent interstitial opacities, may represent pulmonary edema. This document has been electronically signed by: Aleja Law MD on 03/26/2025 23:59:14
[2025-03-26 22:35] VITALS: BP 121/79; BP 124/65; PULSE 93; PULSE 98; RESP 14; TEMP 36.7; O2SAT 88; O2SAT 90; BMI 33.0
--- NOTE | 2025-03-26 22:38 | ECG_ITS ---
Test Reason : SOB Blood Pressure : */* mmHG Vent. Rate : 88 BPM Atrial Rate : 88 BPM P-R Int : 172 ms QRS Dur : 84 ms QT Int : 368 ms P-R-T Axes : 29 76 63 degrees QTcB Int : 445 ms Normal sinus rhythm with sinus arrhythmia Normal ECG When compared with ECG of 08-Mar-2025 18:05, No significant change was found Referred By: Generic ED Physician Electronically Signed By: Carlitos Meyers
[2025-03-26 22:50] LABS: MANUAL DIFF FLAG NO
[2025-03-26 22:51] LABS: Hematocrit 35.3 % (42.0-52.0); Hemoglobin 10.2 g/dl (14.0-18.0); Imm Gran Abs Auto 0.13 X10*3/uL (0.00-0.03); Imm Gran Pct Auto 1.1 % (0.0-0.4); Lymphocytes Absolute Auto 1.0 X10*3/uL (1.2-4.9); Mean Corpuscular HGB Conc 28.9 g/dl (31.0-36.0); Mean Corpuscular Hemoglobin 27.7 pg (27.0-33.0); Mean Corpuscular Volume 95.9 fL (80.0-98.0); NRBC Abs Auto 0.000 X10*3/uL (0.0-0.012); NRBC Pct Auto 0.0 /100WBC (0.0-0.2); Platelet Count 221 X10*3/uL (160-400); Red Blood Count 3.68 X10*6/uL (4.60-5.80); White Blood Count 12.1 X10*3/uL (4.8-10.8)
--- OUTSIDE RECORDS SUMMARY | 2025-03-26 22:51 | XMS_ITS | Clinical Summary ---
Author Organization [address] [facility] Address [address] [place] [address] Phone Care Team Providers Care Telephonic Case Manager Name Role Phone Anne-Marie Muro MD Primary Care Provider [phone] Allergies No known active allergies Medications acetaZOLAMIDE [...] 3 (three) times a week. 36 each 04/06/20 Active ensifentrine 3 mg/2.5 mL suspension for nebulization Inhale 3 mg by mouth 2 (two) times a day. 225 mL 2 04/06/20 Active Active Problems Patient Care Coordination No te Formatting of this note migh t be different from the original. I have discussed with patient and regarding his overall poor prognosis, advanced care planning was advised. Problem Noted Date Diagnosed Date Arteriosclerosis of coronary artery 01/06/2025 Gastroesophageal reflux disease without esophagi tis 01/06/2025 Generalized anxiety disorder 01/06/2025 Hypertension 01/06/2025 Acute and chronic respiratory failure with hypox ia 10/06/2024 Type 2 diabetes mellitus wit hout complication, unspecified whether supervisor intermediates insulin use 10/06/2024 Overview (01/06/2025): 01/06/25 Regulatory IMO Update Malignant neoplasm of skin 04/01/2006 Overview (01/06/2025): IMO update Obstructive chronic bronchitis with exacerbation 01/01/2006 Chronic obstructive airway disease 03/29/2005 Hyperlipidemia 03/29/2005 Encounters Date Type Department Care Team Description 01/15/2025 Telephone Pulmonology - [place] [address] [facility] [address] [place] [address] Linnette Marr MD 01/14/2025 Telephone Pulmonology - [place] [address] [facility] [address] [place] [address] Magaly Estrada MA 01/11/2025 Telephone Pulmonology - [place] [address] [facility] [address] [place] [address] Maday Robledo MA 01/11/2025 Telephone Pulmonology - [place] [address] [facility] [address] [place] [address] Linnette Marr MD 01/06/2025 1:15 PM EDT Office Visit Pulmonology - [place] [address] [facility] [address] [place] [address] Linnette Marr MD Centrilobular emphysema ([facility] V24, [facility] V28) (Primary Dx); Acute and chronic respiratory failure with hypoxia ([facility] V24, [facility] V28); COPD, frequent exacerbations ([facility] V24, [facility] V28); Acute on chronic respiratory failure with hypoxia and hypercapnia ([facility] V24, [facility] V28); Obesity (BMI 30-39.9); Hypoxemia from Last [...] Coronary atherosclerosis of unspecified type of vessel, [place] or graft 05/30/2011 DX:Coronary atherosclerosis of unspecified type of vessel, [place] or graft Family History Medical History Relation [...] on file Sexual Orientation Not on file Last Filed Vital Signs Vital Sign Reading [...] 1:30 PM EST Office Visit Pulmonology - [place] [address] [facility] [address] [place] [address] Linnette Marr MD [facility] [place] [address] Health Maintenance Due Date Last Done [...] 03/23/2022 Depression Screening 04/08/2024 COVID-19 Vaccine ( - 2024- season) 2024 Influenza Vaccine (#1) 2024 9, [...] age to complete this topic Insurance MEDICARE [facility] Advance Directives Documents on File Type Date Recorded Patient Sales Office Administrator Expl anation Health Care Decision (hx) 11/09/2023 AD MCDERMOTT DIRECTIVE Health Care Decision (hx) 11/07/2023 AD MCDERMOTT DIRECTIVE Care Teams Telephonic Case Manager Relationship Specialty Start Date End Date Anne-Marie Muro MD [address] [place] [id number] PCP - General Internal Medicine 04/08/11
[2025-03-26 22:56] LABS: VBG HCO3 45 mmol/L (22-26); VBG O2 % Saturation 62.0 %
[2025-03-26 22:58] LABS: Venous Blood Gas Refer to POC result
[2025-03-26 23:05] LABS: Anion Gap 14 (12-20); Blood Urea Nitrogen 14 mg/dL (9-16); Calcium 9.3 mg/dL (8.4-10.2); Carbon Dioxide 36 mmol/L (22-29); Chloride 94 mmol/L (96-108); Creatinine Clr Calc Pharmacy 55.3; Estimated Glomerular Filt Rate 57; Magnesium 2.1 mg/dL (1.6-2.6); Potassium 4.6 mmol/L (3.3-5.1); Sodium 139 mmol/L (135-145)
[2025-03-26 23:12] LABS: Troponin-I High Sensitivity 6.3 ng/L (<3.5-35.0)
[2025-03-26 23:29] LABS: Resp Syncy Virus RNA Qual PCR NEGATIVE (Negative); SARS COV2 PCR INHOUSE NEGATIVE (Negative)
[2025-03-27] VITALS (22 sets, daily range): BP systolic 98–124; BP diastolic 44–67; PULSE 74–106; RESP 14–22; TEMP 36.5–36.8; O2SAT 91–99; BMI 34.5
--- NOTE | 2025-03-27 00:03 | ED.SOB ---
HPI - SOB/Dyspnea General Chief Complaint: Dyspnea Stated Complaint: Diff breathing Time Seen by Provider: 03/26/25 23:40 Related Data Home Medications ?Medication ?Instructions ?Recorded ?Confirmed budesonide-formoterol HFA 160 2 puff inhalation BID Shortness Of 03/14/21 03/18/25 mcg-4.5 mcg/actuation aerosol Breath Or Wheezing inhaler (Symbicort) calcium 600 mg (as 1 tab PO DAILY 08/04/21 03/18/25 carbonate)-vitamin D3 10 mcg (400 unit) tablet Oxygen Home Use 06/14/22 03/18/25 albuterol sulfate 90 mcg/actuation 2 puff inhalation Q4H PRN 09/24/24 03/18/25 aerosol inhaler (Ventolin HFA) shortness of breath or wheezing aspirin 81 mg tablet 81 mg PO DAILY 11/11/24 03/18/25 Previous Rx's ?Medication ?Instructions ?Recorded blood-glucose meter ([employer] #1 ea 01/23/22 Lite Meter kit) glipizide 5 mg tablet 5 mg PO BID #270 tabs 08/31/24 escitalopram oxalate 20 mg tablet 20 mg PO DAILY #90 tabs 10/01/24 metoprolol tartrate 25 mg tablet 25 mg PO BID #180 tabs 12/01/24 atorvastatin 80 mg tablet 80 mg PO BEDTIME #90 tabs 12/28/24 ferrous sulfate 325 mg (65 mg 325 mg PO DAILY #90 tabs 12/29/24 iron) tablet metformin 1,000 mg tablet 1,000 mg PO BID #180 tabs 01/06/25 omeprazole 20 mg capsule,delayed 20 mg PO DAILY@0630 #30 caps 01/27/25 release lactulose 10 gram/15 mL oral 10 g (15 mL) PO TID PRN 02/18/25 solution Constipation 30 days #946 mL sennosides 8.6 mg tablet (senna) 17.2 mg (2 x 8.6 mg) PO BID PRN 02/18/25 constipation 90 days #360 tabs ipratropium 0.5 mg-albuterol 3 mg 3 ml inhalation Q6H PRN wheezing 02/23/25 (2.5 mg base)/3 mL nebulization #180 mL soln blood sugar diagnostic ([employer]esar[employer] #100 ea 03/18/25 Lite Strips) furosemide 20 mg tablet (Lasix) 20 mg PO DAILY #90 tabs 03/18/25 lancets 28 gauge (FreeStyle #100 ea 03/18/25 Lancets) lorazepam 1 mg tablet (Ativan) 0.5 mg (1/2 x 1 mg) PO BID PRN 03/18/25 anxiety #30 tabs Allergies Allergy/AdvReac Type Severity Reaction Status Date / Time fluticasone furoate (From Allergy Intermediate Rash Verified 03/26/25 22:37 Trelegy Ellipta) vilanterol (From Trelegy Allergy Intermediate Rash Verified 03/26/25 22:37 Ellipta) umeclidinium (Incruse Allergy Unknown Hives Verified 03/26/25 22:37 Ellipta) [facility] Past Medical History Medical History (Updated 03/27/25 @ 00:11 by Sarahi Ornelas MD) COPD, severe Cholelithiasis Pneumobilia Chronic lung disease Diabetes mellitus with hyperglycemia, without long-term current use of insulin Positive colorectal cancer screening using Cologuard test HTN (hypertension) History of adenomatous polyp of colon Acute on chronic respiratory failure with hypoxia and hypercapnia Respiratory failure with hypoxia and hypercapnia Bilateral carotid artery disease CAD (coronary artery disease) Anxiety and depression Anemia Chronic respiratory failure with hypoxia and hypercapnia Radiation fibrosis of lung Dyslipidemia History of pneumonia Bacteremia due to Enterococcus Diabetes mellitus with hyperglycemia, without long-term current use of insulin Urinary incontinence Asthma Lung cancer Skin cancer Surgical History Hx of heart artery stent History of esophagogastroduodenoscopy (EGD) Hx of colonoscopy Family History Family History Father Medical history non-contributory Mother Medical history non-contributory Unknown family medical history Lung collapse Brother No problems noted. Brother No problems noted. Son Substance use disorder Son No problems noted. Daughter No problems noted. Sister No problems noted. Sister No problems noted. Sister No problems noted. Sister No problems noted. Other HTN (hypertension) Social History Social History Household Members: Spouse Household Members Other:: grandson Housing: House Are you a primary animal care taker to a significant other at home: No Do you presently have visiting nurse or other home services: No Alcohol intake: never Comment: refused bed exit alarm. Patient Tobacco Use Status: Former Tobacco user Tobacco use type: Cigarette e-Cigarette/Vaping Use: Never Used Advance Directives: Yes Advance Directives on File: Yes Advance Directives Date on File: 06/08/22 service: No Current occupational status: retired Cognitive needs: No Hearing needs: No Vision needs: No Physical Exam Vital Signs: Vital Signs: Last Vital Signs Temp 98.0 F 03/26/25 22:35 Pulse 89 03/27/25 02:16 Resp 20 03/27/25 02:16 BP 113/59 L 03/27/25 02:16 Pulse Ox 94 03/27/25 02:16 O2 Del Method CPAP 03/27/25 02:16 Oxygen Flow Rate 3 03/26/25 22:35 BMI result Body Mass Index 33.0 Course Course Course Narrative: Patient known to have COPD. Patient uses 3 L at home. Oxygen saturation 86% on 3 L. Empirically, patient is being treated with IV fluids, ceftriaxone and azithromycin. Patient is being given fluids based on ideal weight of 55 kg, patient is obese In patient's medical history, CHF is listed. However, patient has an ejection fraction of 60-65% with a slightly decreased feeling pressure. Patient does not seem to be on any CHF medications. At this time, patient does not seem to be fluid overloaded. Medications Administered Discontinued Medications Generic Name Dose Route Start Last Admin Trade Name Freq PRN Reason Stop Dose Admin Albuterol Sulfate 2.5 mg/ 5 mg 03/27/25 00:12 03/27/25 00:26 Albuterol Sulfate 2.5 mg INHALE 03/27/25 00:13 5 mg ONCE ONE Administration Sodium Chloride 1,700 mls @ 999 mls/hr 03/26/25 23:53 03/27/25 01:58 Ns IVCONT 03/27/25 01:35 Infused .Q1H43M ONE Infusion Ceftriaxone Sodium 1 gm/ 50 mls @ 100 mls/hr 03/26/25 23:53 03/27/25 00:59 Sodium Chloride IV 03/27/25 00:22 Infused ONCE ONE Infusion Azithromycin 500 mg/ Sodium 250 mls @ 125 mls/hr 03/26/25 23:53 03/27/25 02:50 Chloride IV 03/27/25 01:52 Infused ONCE ONE Infusion Magnesium Sulfate 2 gm in 50 mls @ 150 mls/hr 03/26/25 23:58 03/27/25 01:23 Magnesium Sulfate/H2o IV 03/27/25 00:17 Infused ONCE ONE Infusion Medical Decision Making Medical Decision Making MDM Narrative: Interpretation of EKG: Normal sinus rhythm, heart rate 88, no ST segment depression or elevation, no T-wave inversion, QTC 445 Patient is struggling to breathe, diminished breath sounds. Patient's labs show a slightly increased white blood cell count at 12.1, patient is chronically anemic with a baseline hemoglobin and hematocrit of 10.2, 35.3, platelets 221. No significant abnormality patient's chemistry, troponin negative, magnesium 2.1 Patient's pH is 7.26, patient's pCO2 is 99. Bicarb 45. Serologies negative for influenza a, influenza B, RSV and COVID Patient needs BiPAP. Patient has a history of recurrent respiratory failure At this time, 00:15, sepsis alert was called, patient needs BiPAP Otherwise, patient's blood pressure is in the 120s, no fever, heart rate in the 90s , normal lactic acid 02:30 - FOCUS exam performed After 4 hours of BiPAP, we will obtain venous blood gases. The pH has not changed at all, roommates that is 7.26, pCO2 did not decreased significantly. When from 99 down to 81 -patient remains awake and alert. Breathing more comfortable. I discussed the patient with Dr. Jones from the ICU, patient being admitted Differential Diagnosis Differential Diagnoses: The differential diagnosis associated with the presentation includes (Asthma, pneumonia, COPD, influenza, RSV, COVID) Admission/Observation Consideration of admission/observation: Escalation of care including admission/observation considered Lab Data [facility] Lab Attestation statement: I reviewed the patient's lab results. 03/26/25 22:41 03/26/25 22:41 Labs: Lab Results 03/26/25 03/26/25 03/26/25 Range/Units 22:41 22:43 22:50 WBC 12.1 H (4.8-10.8) X10*3/uL RBC 3.68 L (4.60-5.80) X10*6/uL Hgb 10.2 L (14.0-18.0) g/dl Hct 35.3 L (42.0-52.0) % MCV 95.9 (80.0-98.0) fL MCH 27.7 (27.0-33.0) pg MCHC 28.9 L (31.0-36.0) g/dl RDW 14.7 (11.0-16.0) % Plt Count 221 (160-400) X10*3/uL MPV 10.4 (9.4-12.4) fL Immature Gran % (Auto) 1.1 H (0.0-0.4) % Neut % (Auto) 83.1 H (45-73) % Lymph % (Auto) 8.6 L (20-40) % [place] % (Auto) 6.0 (2-11) % Eos % (Auto) 0.7 (0-4) % Baso % (Auto) 0.5 (0-2) % Lymph # (Auto) 1.0 L (1.2-4.9) X10*3/uL [place] # (Auto) 0.7 (0.1-1.2) X10*3/uL Eos # (Auto) 0.1 (0.0-0.4) X10*3/uL Baso # (Auto) 0.1 (0.0-0.2) X10*3/uL Abs Immat Gran (auto) 0.13 H (0.00-0.03) X10*3/uL Absolute Neuts (auto) 10.0 H (2.0-8.3) x10*3/uL Absolute Nucleated RBC 0.000 (0.0-0.012) X10*3/uL Nucleated RBC % (auto) 0.0 (0.0-0.2) /100WBC VBG pH 7.26 L (7.32-7.43) VBG pCO2 99 mmHg VBG pO2 44 mmHg VBG HCO3 45 H (22-26) mmol/L VBG O2 Saturation 62.0 % VBG Base Excess 13.9 mmol/L Sodium 139 (135-145) mmol/L Potassium 4.6 (3.3-5.1) mmol/L Chloride 94 L (96-108) mmol/L Carbon Dioxide 36 H (22-29) mmol/L Anion Gap 14 (12-20) BUN 14 (9-16) mg/dL Creatinine 1.23 (0.5-1.4) mg/dL Estim Creat Clear Calc 55.3 Estimated GFR 57 Random Glucose 278 H (60-115) mg/dL Lactic Acid 1.1 (0.5-2.0) mmol/L Calcium 9.3 (8.4-10.2) mg/dL Magnesium 2.1 (1.6-2.6) mg/dL Troponin I High Sens 6.3 D (<3.5-35.0) ng/L Influenza Type A (PCR) NEGATIVE (Negative) Influenza Type B (PCR) NEGATIVE (Negative) RSV RNA Qual (PCR) NEGATIVE (Negative) SARS-CoV-2 RNA (RT-PCR) NEGATIVE (Negative) 03/27/25 Range/Units 03:00 WBC (4.8-10.8) X10*3/uL RBC (4.60-5.80) X10*6/uL Hgb (14.0-18.0) g/dl Hct (42.0-52.0) % MCV (80.0-98.0) fL MCH (27.0-33.0) pg MCHC (31.0-36.0) g/dl RDW (11.0-16.0) % Plt Count (160-400) X10*3/uL MPV (9.4-12.4) fL Immature Gran % (Auto) (0.0-0.4) % Neut % (Auto) (45-73) % Lymph % (Auto) (20-40) % [place] % (Auto) (2-11) % Eos % (Auto) (0-4) % Baso % (Auto) (0-2) % Lymph # (Auto) (1.2-4.9) X10*3/uL [place] # (Auto) (0.1-1.2) X10*3/uL Eos # (Auto) (0.0-0.4) X10*3/uL Baso # (Auto) (0.0-0.2) X10*3/uL Abs Immat Gran (auto) (0.00-0.03) X10*3/uL Absolute Neuts (auto) (2.0-8.3) x10*3/uL Absolute Nucleated RBC (0.0-0.012) X10*3/uL Nucleated RBC % (auto) (0.0-0.2) /100WBC VBG pH 7.26 L (7.32-7.43) VBG pCO2 81 mmHg VBG pO2 50 mmHg VBG HCO3 36 H (22-26) mmol/L VBG O2 Saturation 75.0 % VBG Base Excess 7.1 mmol/L Sodium (135-145) mmol/L Potassium (3.3-5.1) mmol/L Chloride (96-108) mmol/L Carbon Dioxide (22-29) mmol/L Anion Gap (12-20) BUN (9-16) mg/dL Creatinine (0.5-1.4) mg/dL Estim Creat Clear Calc Estimated GFR Random Glucose (60-115) mg/dL Lactic Acid (0.5-2.0) mmol/L Calcium (8.4-10.2) mg/dL Magnesium (1.6-2.6) mg/dL Troponin I High Sens (<3.5-35.0) ng/L Influenza Type A (PCR) (Negative) Influenza Type B (PCR) (Negative) RSV RNA Qual (PCR) (Negative) SARS-CoV-2 RNA (RT-PCR) (Negative) Independent Interpretation I performed an independent interpretation of an: Plain X-Ray Radiology Impression Discussion of test interpretation with radiology: I have reviewed the radiologist's reading. Radiologist Impression: Prominent interstitial opacities, [id number]. Normal size heart. No acute fracture. IMPRESSION: 1. Prominent interstitial opacities, may represent pulmonary edema. Critical Care Time Critical Care Time Critical Care Time: Yes Total Critical Care Time: 60 Attestation: I have personally provided critical care time. Time includes review of lab data, radiology results, discussion with consultants, and monitoring for potential decompensation. Intervention performed as documented. Discharge Plan Discharge Clinical Impression: COPD (chronic obstructive pulmonary disease), Acute hypercapnic respiratory failure Patient Disposition: Admitted As Inpatient Print Language: Lao
[2025-03-27] MEDS: 0.9 % Sodium Chloride 1,700 ML 999 ML IVCONT (00:11)
[2025-03-27] MEDS: Albuterol Sulfate 2.5 MG, Albuterol Sulfate (0.083%) 2.5 MG 5 MG INHALE (00:26)
[2025-03-27] MEDS: Magnesium Sulfate/H2O 2 GM/50 ML PIGGYBACK IV (01:03)
[2025-03-27 03:03] LABS: Venous Blood Gas Refer to POC result
[2025-03-27 03:05] LABS: VBG HCO3 36 mmol/L (22-26); VBG O2 % Saturation 75.0 %
--- NOTE | 2025-03-27 03:28 | PC.NURSE ---
verbal nurse to nurse report given to KATIE Rothman in ICU, pending RT for transport of pt
--- NOTE | 2025-03-27 03:51 | PM.CCHP ---
History of Present Illness Date of Service: 03/27/25 Attending physician on admission: Polo Jones Chief Complaint: Dyspnea The patient is a 75-year-old male with a past medical history of COPD (on 2-3 L at home), congestive heart failure, hypertension, hyperlipidemia, coronary artery disease, liver cirrhosis, obesity, anemia of chronic disease, anxiety, depression and recent admission 03/08/25 to 03/11/2025 for acute respiratory failure due to copd exacerbation that require BiPAP support. ? Tonight patient presented to the emergency department with worsening dyspnea. On arrival to the emergency department, patient noted to be in mild respiratory distress, satting 86% on home 3 L. Venous gas consistent with acute on chronic hypoxic and hypercapnic respiratory failure 7./ Imaging: Chest x-ray:? No acute infectious process ED Course: He received DuoNeb 5 mg, ceftriaxone 1 g and azithromycin 500 mg, magnesium 2 g and a 1.7 L bolus. ?Patient is placed on BiPAP Review of Systems Review of Systems: Yes all other systems are reviewed and are negative ON LICENSE OF [facility] Past Medical History Medical History (Updated 03/27/25 @ 05:01 by Noe Krishnamurthy NP) COPD, severe Cholelithiasis Pneumobilia Chronic lung disease Diabetes mellitus with hyperglycemia, without long-term current use of insulin Positive colorectal cancer screening using Cologuard test HTN (hypertension) History of adenomatous polyp of colon Acute on chronic respiratory failure with hypoxia and hypercapnia Respiratory failure with hypoxia and hypercapnia Bilateral carotid artery disease CAD (coronary artery disease) Anxiety and depression Anemia Chronic respiratory failure with hypoxia and hypercapnia Radiation fibrosis of lung Dyslipidemia History of pneumonia Bacteremia due to Enterococcus Diabetes mellitus with hyperglycemia, without long-term current use of insulin Urinary incontinence Asthma Lung cancer Skin cancer Family History Family History Father Medical history non-contributory Mother Medical history non-contributory Unknown family medical history Lung collapse Brother No problems noted. Brother No problems noted. Son Substance use disorder Son No problems noted. Daughter No problems noted. Sister No problems noted. Sister No problems noted. Sister No problems noted. Sister No problems noted. Other HTN (hypertension) Surgical History Surgical History Hx of heart artery stent History of esophagogastroduodenoscopy (EGD) Hx of colonoscopy Social History Social History Household Members: Spouse Household Members Other:: grandson Housing: House Are you a primary acute care physical therapist to a significant other at home: No Do you presently have visiting nurse or other home services: No Alcohol intake: never Comment: refused bed exit alarm. Patient Tobacco Use Status: Former Tobacco user Tobacco use type: Cigarette e-Cigarette/Vaping Use: Never Used Currently Displaying Signs/Symptoms of Drug Intoxication Withdrawal: No Have you been hit, kicked, punched, or otherwise hurt by someone within the past year? If so, by whom?: No Do you feel safe in your current relationship?: Yes Is there a partner from a previous relationship who is making you feel unsafe now?: No Are you made to feel afraid or neglected: No Advance Directives: Yes Advance Directives on File: Yes Advance Directives Date on File: 06/08/22 Do you have a plan to hurt others: No Plan Recently lost weight without trying: No Nutrition Risks: No Nutritional Risk service: No Current occupational status: retired Cognitive needs: No Hearing needs: No Vision needs: No Meds Allergies Allergy/AdvReac Type Severity Reaction Status Date / Time fluticasone furoate (From Allergy Intermediate Rash Verified 03/26/25 22:37 Trelegy Ellipta) vilanterol (From Trelegy Allergy Intermediate Rash Verified 03/26/25 22:37 Ellipta) umeclidinium (Incruse Allergy Unknown Hives Verified 03/26/25 22:37 Ellipta) Active Medications: Current Medications Enoxaparin Sodium (Enoxaparin Sodium 40 Mg/0.4 Ml Syringe) 40 mg SUBCUT Q24H DUTCH Home Medications ?Medication ?Instructions ?Recorded ?Confirmed ?Last Taken ?Type budesonide-formoterol HFA 160 2 puff inhalation BID Shortness Of 03/14/21 03/27/25 03/26/25 History mcg-4.5 mcg/actuation aerosol Breath Or Wheezing inhaler (Symbicort) calcium 600 mg (as 1 tab PO DAILY 08/04/21 03/27/25 03/26/25 History carbonate)-vitamin D3 10 mcg (400 unit) tablet Oxygen Home Use 06/14/22 03/18/25 Unknown History albuterol sulfate 90 mcg/actuation 2 puff inhalation Q4H PRN 09/24/24 03/27/25 03/26/25 History aerosol inhaler (Ventolin HFA) shortness of breath or wheezing aspirin 81 mg tablet 81 mg PO DAILY 11/11/24 03/27/25 03/26/25 History azithromycin 500 mg tablet 500 mg PO MOWEFR@0900 03/27/25 03/27/25 03/26/25 History Physical Exam Exam: Exam: ?General:? Alert oriented x3, on BiPAP ?HEENT:? Head is normocephalic, atraumatic, pupils equal round reactive to light accommodation bilaterally.? Extraocular movements appear intact.? Buccal mucosa is dry, Neck is supple without lymphadenopathy. ?Cardiac:? Sinus. Clear S1-S2, no murmurs rubs or gallops. ?Pulmonary:? fine crackles at bases. No wheezing. On BiPAP ?Abdomen:? ?Abdomen soft, non-tender, non-distended. Normal bowel sounds. No pulsatile mass. No hepatosplenomegaly. ?Musculoskeletal:? Moving all 4 extremities upon request a major joints, there is no crepitus or tenderness.? The strength is 5/5 bilaterally and throughout all 4 extremities.? Gait not assessed at this point. ?Neurologic:? cranial nerves 2-12 are grossly intact.? No focal deficits noted.Motor strength as above.?? ?Skin:? Bilateral lower extremity trace edema Vascular:? 2+ pulses upper and lower extremities distally.? Vital Signs: Vital Signs: Last Vital Signs Temp 98.0 F 03/26/25 22:35 Pulse 89 03/27/25 02:16 Resp 20 03/27/25 02:16 BP 113/59 L 03/27/25 02:16 Pulse Ox 94 03/27/25 02:16 O2 Del Method BiPAP 03/27/25 02:16 Oxygen Flow Rate 3 03/26/25 22:35 BMI result Body Mass Index 33.0 Results Labs 03/27/25 04:55 03/27/25 04:55 Labs: Laboratory Results - last 24 hr 03/26/25 03/26/25 03/26/25 22:41 22:43 22:50 MCV 95.9 MCH 27.7 MCHC 28.9 L RDW 14.7 Plt Count 221 MPV 10.4 Immature Gran % (Auto) 1.1 H Neut % (Auto) 83.1 H Lymph % (Auto) 8.6 L [place] % (Auto) 6.0 Eos % (Auto) 0.7 Baso % (Auto) 0.5 Lymph # (Auto) 1.0 L [place] # (Auto) 0.7 Eos # (Auto) 0.1 Baso # (Auto) 0.1 Abs Immat Gran (auto) 0.13 H Absolute Neuts (auto) 10.0 H Absolute Nucleated RBC 0.000 Nucleated RBC % (auto) 0.0 VBG pH 7.26 L VBG pCO2 99 VBG pO2 44 VBG HCO3 45 H VBG O2 Saturation 62.0 VBG Base Excess 13.9 Anion Gap 14 Estim Creat Clear Calc 55.3 Estimated GFR 57 Random Glucose 278 H Lactic Acid 1.1 Calcium 9.3 Magnesium 2.1 Troponin I High Sens 6.3 D Influenza Type A (PCR) NEGATIVE Influenza Type B (PCR) NEGATIVE RSV RNA Qual (PCR) NEGATIVE SARS-CoV-2 RNA (RT-PCR) NEGATIVE 03/27/25 03:00 MCV MCH MCHC RDW Plt Count MPV Immature Gran % (Auto) Neut % (Auto) Lymph % (Auto) [place] % (Auto) Eos % (Auto) Baso % (Auto) Lymph # (Auto) [place] # (Auto) Eos # (Auto) Baso # (Auto) Abs Immat Gran (auto) Absolute Neuts (auto) Absolute Nucleated RBC Nucleated RBC % (auto) VBG pH 7.26 L VBG pCO2 81 VBG pO2 50 VBG HCO3 36 H VBG O2 Saturation 75.0 VBG Base Excess 7.1 Anion Gap Estim Creat Clear Calc Estimated GFR Random Glucose Lactic Acid Calcium Magnesium Troponin I High Sens Influenza Type A (PCR) Influenza Type B (PCR) RSV RNA Qual (PCR) SARS-CoV-2 RNA (RT-PCR) Assessment and Plan (1) Acute on chronic respiratory failure with hypoxia and hypercapnia: Status: Resolved (2) COPD (chronic obstructive pulmonary disease): Status: Acute Plan 75-year-old male with a past medical history of COPD (on 2-3 L at home), congestive heart failure, hypertension, hyperlipidemia, coronary artery disease, liver cirrhosis, obesity, anemia of chronic disease, anxiety, and depression admitted to ICU for acute on chronic hypoxic and hypercapnic respiratory failure secondary to COPD exacerbation requiring BIPAP support Neuro:? No acute issues. Cardiac:? Underlying hypertension/CAD/Congestive heart failure.? Hold metoprolol due to soft blood pressures. Pulmonary:? Acute hypoxic and hypercapnic respiratory failure secondary to COPD exacerbation. Patient had recent admission with simimalr presentatioon Will give systemic glucocorticoids, nebulized bronchodilators and Diamox.? Keep 02 saturation 88-92%.? No signs of acute infection shown in x-ray and normal lactate level. Received azithromycin in ED.?Will cont Renal:? No acute issues.?? Endo:? Underlying diabetes: ?On metformin, hold metformin/glipizide. ?Resume lisinopril when patient is no longer NPO. ?Q.6 hour POCs GI:? No acute issues. ID:? No acute issues Heme/Onc:? No acute issues. Psych:? No acute issues. Miscellaneous:? No acute issues. Prophylaxis:? lovenox Diet:? NPO while on BIPAP Critical care time spent:? 30 minutes
[2025-03-27 04:51] LABS: NT Pro B Type Natriuretic Pept 124.4 pg/mL (<300)
[2025-03-27 05:01] LABS: VBG HCO3 38 mmol/L (22-26); VBG O2 % Saturation 73.0 %
[2025-03-27 05:14] LABS: Venous Blood Gas Refer to POC result
[2025-03-27 05:39] LABS: Albumin Level 3.8 g/dL (3.5-5.0); Anion Gap 15 (12-20); Blood Urea Nitrogen 16 mg/dL (9-16); Calcium 8.5 mg/dL (8.4-10.2); Carbon Dioxide 30 mmol/L (22-29); Chloride 101 mmol/L (96-108); Creatinine Clr Calc Pharmacy 73.2; Estimated Glomerular Filt Rate > 60; Hematocrit 31.8 % (42.0-52.0); Hemoglobin 9.3 g/dl (14.0-18.0); Imm Gran Abs Auto 0.05 X10*3/uL (0.00-0.03); Imm Gran Pct Auto 0.7 % (0.0-0.4); Lymphocytes Absolute Auto 0.3 X10*3/uL (1.2-4.9); MANUAL DIFF FLAG SCAN; Magnesium 2.3 mg/dL (1.6-2.6); Mean Corpuscular HGB Conc 29.2 g/dl (31.0-36.0); Mean Corpuscular Hemoglobin 27.5 pg (27.0-33.0); Mean Corpuscular Volume 94.1 fL (80.0-98.0); NRBC Abs Auto 0.000 X10*3/uL (0.0-0.012); NRBC Pct Auto 0.0 /100WBC (0.0-0.2); Platelet Count 196 X10*3/uL (160-400); Potassium 4.3 mmol/L (3.3-5.1); Red Blood Count 3.38 X10*6/uL (4.60-5.80); SCAN SMEAR FLAG 1; Sodium 142 mmol/L (135-145); White Blood Count 7.6 X10*3/uL (4.8-10.8)
--- NOTE | 2025-03-27 06:30 | PC.NURSE ---
Pt arrived to unit approx 0400 - alert and oriented x4. On Bipap - see Bipap assessment. SR on tele, HR 70-80s, MAP > 65. Pt voiding in urinal. Skin intact. Safety measures in place, call buck in reach.?
[2025-03-27 07:08] LABS: Appearance Urine Clear; Glucose Urine UA 500 mg/dL (Negative); PH >= 9.0 (5.0-9.0); Specific Gravity - Urine 1.015 (1.005-1.025); UMIC TRIGGER UACC YES
[2025-03-27 07:13] LABS: UACC Culture Trigger YES
[2025-03-27] MEDS: Albuterol/Iprat 2.5/0.5MG 3 ML AMPUL.NEB INHALE ×4 (07:58→19:12)
[2025-03-27] MEDS: Potassium Phosphate/NS 15 MMOL/250 ML PLAST..BAG 62.5 MMOL IV (08:08)
[2025-03-27 08:21] LABS: Glucose, Whole Blood 265 mg/dL (60-115)
--- NOTE | 2025-03-27 10:21 | PHA.MEDREC ---
Addendum entered by Kathy Garcia RPh 03/27/25 10:31: Reviewed by [facility] Original Note: Pharmacy Consult ? Medication Reconciliation Pharmacy has completed the medication reconciliation. Confirmed medication list with patient and against claims history and discharge packet from prior visit. Paitent confirmed he takes one furosemide 20 mg tablet daily. Patient confirmed he took all morning and night medications including inhalers yesterday except for sennosides 8.6 mg tablet which he takes PRN for constipation.
[2025-03-27 11:52] LABS: Glucose, Whole Blood 242 mg/dL (60-115)
--- NOTE | 2025-03-27 13:37 | MHC.CM.PN ---
IMM 03/27/2025, PT ADMITTED TO ICU W/COPD EXAC AND BIPAP SUPPORT, PT WEANED OFF BIPAP AND PT TXFR'D TO MEDICAL FLOOR, PT REPORTS HE LIVES W/ AND HAS HOME O2, CPAP, 4 WHEELED WALKER AND WC FOR DISTANCES, PT REPORTS HIS PROVIDES ALL CARE NEEDED AND DECLINES A VNA D/T A NURSE PREVIOUSLY CHANGING HIS CPAP SETTINGS. PT'S GOAL FRO DC IS HOME NO SERVICES. PT VERFIES PCP IS DR. HAYWARD AND HCP ON FILE IS TYE AND ALT IS SON ROYCE.
--- NOTE | 2025-03-27 13:40 | PC.NURSE ---
Assumed care at 0700. Upon initial assessment, pt sitting at edge of bed, bipap in place. Pt requesting water. Pt taken off bipap and placed on 3L via nasal cannula at 0737. Plan for Pt to be transferred to [place]. Report given to Gail WILSON at approx 1340. See MAR and assessments for further detail. Pt repositioned q2hr as tolerated. Fall & safety precautions in place.
--- NOTE | 2025-03-27 15:00 | PC.NURSE ---
Patient refused bed alarms, ambulated to the bathroom without assistance, patient educated on the importance of safe ambulation with assistance.
[2025-03-27 16:22] LABS: Glucose, Whole Blood 242 mg/dL (60-115)
[2025-03-27 21:00] LABS: Glucose, Whole Blood 203 mg/dL (60-115)
[2025-03-28] VITALS (13 sets, daily range): BP systolic 103–122; BP diastolic 51–64; PULSE 70–98; RESP 16–20; TEMP 36.3–36.9; O2SAT 92–98
[2025-03-28 07:16] LABS: Glucose, Whole Blood 172 mg/dL (60-115)
[2025-03-28] MEDS: Albuterol/Iprat 2.5/0.5MG 3 ML AMPUL.NEB INHALE ×4 (08:13→20:18)
[2025-03-28] MEDS: Fluticasone/Vilanterol 200/25 BLST.W.DEV 1 PUFF INHALE (08:13)
[2025-03-28 08:32] LABS: Hematocrit 33.0 % (42.0-52.0); Hemoglobin 9.6 g/dl (14.0-18.0); Imm Gran Abs Auto 0.03 X10*3/uL (0.00-0.03); Imm Gran Pct Auto 0.5 % (0.0-0.4); Lymphocytes Absolute Auto 0.7 X10*3/uL (1.2-4.9); MANUAL DIFF FLAG SCAN; Mean Corpuscular HGB Conc 29.1 g/dl (31.0-36.0); Mean Corpuscular Hemoglobin 27.4 pg (27.0-33.0); Mean Corpuscular Volume 94.3 fL (80.0-98.0); NRBC Abs Auto 0.000 X10*3/uL (0.0-0.012); NRBC Pct Auto 0.0 /100WBC (0.0-0.2); PLT CLUMP 1; Red Blood Count 3.50 X10*6/uL (4.60-5.80); SCAN SMEAR FLAG 1
[2025-03-28 08:35] LABS: Venous Blood Gas Refer to POC result
[2025-03-28 08:35] LABS: VBG HCO3 34 mmol/L (22-26); VBG O2 % Saturation 99.0 %
[2025-03-28 08:37] LABS: Platelet Count 217 X10*3/uL (160-400); White Blood Count 6.7 X10*3/uL (4.8-10.8)
[2025-03-28] MEDS: Ferrous Sulfate 324 MG TABLET.DR PO (08:45)
[2025-03-28 08:46] LABS: Albumin Level 4.1 g/dL (3.5-5.0); Anion Gap 13 (12-20); Blood Urea Nitrogen 18 mg/dL (9-16); Calcium 9.2 mg/dL (8.4-10.2); Carbon Dioxide 29 mmol/L (22-29); Chloride 101 mmol/L (96-108); Creatinine Clr Calc Pharmacy 73.2; Estimated Glomerular Filt Rate > 60; Magnesium 2.1 mg/dL (1.6-2.6); Potassium 4.0 mmol/L (3.3-5.1); Sodium 139 mmol/L (135-145)
[2025-03-28 11:24] LABS: Glucose, Whole Blood 285 mg/dL (60-115)
--- NOTE | 2025-03-28 14:45 | P.PNIM_ITS ---
Subjective Subjective Date of Service: 03/28/25 Interval History: Reports still having difficulty breathing Feels like his breath is getting stuck in his throat Reports only occasionally compliant with CPAP at home Denies cough, fever Overall reports feels weak and tired Review of Systems Review of Systems: Yes all other systems are reviewed and are negative Physical Exam 2 Exam: Exam: General: AOx3, no acute distress. Appears elderly, weak Resp: CTA very diminished, poor airflow. No significant wheezing noted. CVS: S1, S2, RRR GI: +BS, NT, no distention Skin: Warm, dry Neuro: Cranial nerves II-XII grossly intact bilaterally. Motor grossly intact bilaterally Extremities: No edema Psych: Appropriate affect Vital Signs: Vital Signs: Last Vital Signs Temp 97.9 F 03/28/25 10:56 Pulse 89 03/28/25 11:09 Resp 20 03/28/25 11:09 BP 107/64 03/28/25 10:56 Pulse Ox 96 03/28/25 10:56 O2 Del Method Nasal Cannula 03/28/25 10:56 O2 Flow Rate 2 03/28/25 10:56 FiO2 36 03/27/25 07:14 Oxygen Flow Rate 3 03/26/25 22:35 BMI result Body Mass Index 34.5 Objective Data Active Medications Albuterol/Ipratropium (Albuterol/Iprat 2.5/0.5mg 3 Ml Ampul.Neb) 3 ml INHALE RQ4H WHILE AWAKE [facility] Last Admin: 03/28/25 11:08 Dose: 3 ml Documented By: FUENTES Albuterol/Ipratropium (Albuterol/Iprat 2.5/0.5mg 3 Ml Ampul.Neb) 3 ml INHALE Q6H PRN PRN Reason: Wheezing Aspirin (Aspirin 81 Mg Tab.Chew) 81 mg PO DAILY [facility] Last Admin: 03/28/25 08:48 Dose: 81 mg Documented By: WESTON Atorvastatin Calcium (Atorvastatin Calcium 80 Mg Tablet) 80 mg PO BEDTIME [facility] Dextrose (Dextrose 50 % 25 Gm/50 Ml Syringe) 25 gm IVPUSH Q15M PRN; Protocol PRN Reason: per Hypoglycemia Standing Ord. Enoxaparin Sodium (Enoxaparin Sodium 40 Mg/0.4 Ml Syringe) 40 mg SUBCUT Q24H [facility] Last Admin: 03/28/25 07:54 Dose: Not Given Documented By: WESTON Non-Admin Reason: Patient Refused Escitalopram Oxalate (Escitalopram Oxalate 20 Mg Tablet) 20 mg PO DAILY [facility] Last Admin: 03/28/25 08:46 Dose: 20 mg Documented By: WESTON Ferrous Sulfate (Ferrous Sulfate 324 Mg Tablet.) 324 mg PO DAILY [facility] Last Admin: 03/28/25 08:45 Dose: 324 mg Documented By: WESTON Fluticasone/Vilanterol (Fluticasone/Vilanterol 200/25 Blst.W.Dev) 1 puff INHALE RDAILY [facility] Last Admin: 03/28/25 08:13 Dose: 1 puff Documented By: FUENTES Furosemide (Furosemide 20 Mg Tablet) 20 mg PO DAILY [facility]; Protocol Last Admin: 03/28/25 08:47 Dose: 20 mg Documented By: WESTON Glipizide (Glipizide 5 Mg Tablet) 5 mg PO BID [facility] Last Admin: 03/28/25 08:48 Dose: 5 mg Documented By: WESTON Glucose (Glucose Gel 15 Gm Gel..Gram.) 15 gm PO Q15M PRN; Protocol PRN Reason: per Hypoglycemia Standing Ord. Azithromycin 500 mg/ Sodium (Chloride) 250 mls @ 125 mls/hr IV Q24H [facility] Last Infusion: 03/27/25 23:46 Dose: Infused Documented By: SIMON Insulin Human Lispro (Insulin Lispro 100 Unit/Ml 3 Ml Vial) 0 unit SUBCUT QIDACHS [facility]; Protocol Last Admin: 03/28/25 12:10 Dose: 6 unit Documented By: WESTON Lactulose (Lactulose 20 Gm/30 Ml Solution) 10 gm PO TID PRN PRN Reason: Constipation Lorazepam (Lorazepam 0.5 Mg Tablet) 0.5 mg PO BID PRN PRN Reason: Anxiety Metoprolol Tartrate (Metoprolol Tartrate 25 Mg Tablet) 25 mg PO BID [facility]; Protocol Last Admin: 03/28/25 08:47 Dose: 25 mg Documented By: WESTON Omeprazole (Omeprazole 20 Mg Capsule.) 20 mg PO DAILY@0630 [facility] Last Admin: 03/28/25 06:16 Dose: 20 mg Documented By: HO.KOCOTD Prednisone (Prednisone 20 Mg Tablet) 40 mg PO DAILY [facility] Last Admin: 03/28/25 08:48 Dose: 40 mg Documented By: WESTON Senna (Sennosides 8.6 Mg Tablet) 17.2 mg PO BID PRN PRN Reason: Constipation Last Admin: 03/28/25 08:46 Dose: 17.2 mg Documented By: WESTON Labs 03/28/25 08:13 03/28/25 08:13 Labs: Laboratory Results - last 24 hr 03/27/25 03/27/25 03/28/25 16:04 20:49 07:01 MCV MCH MCHC RDW Plt Count MPV Immature Gran % (Auto) Neut % (Auto) Lymph % (Auto) [place] % (Auto) Eos % (Auto) Baso % (Auto) Lymph # (Auto) [place] # (Auto) Eos # (Auto) Baso # (Auto) Abs Immat Gran (auto) Absolute Neuts (auto) Absolute Nucleated RBC Nucleated RBC % (auto) Smear Tech's Comments VBG pH VBG pCO2 VBG pO2 VBG HCO3 VBG O2 Saturation VBG Base Excess Anion Gap Estim Creat Clear Calc Estimated GFR POC Glucose 242 H 203 H 172 H Random Glucose Calcium Phosphorus Magnesium Albumin 03/28/25 03/28/25 03/28/25 08:13 08:13 08:13 MCV 94.3 Cancelled MCH 27.4 Cancelled MCHC 29.1 L RDW Plt Count MPV Immature Gran % (Auto) Neut % (Auto) Lymph % (Auto) [place] % (Auto) Eos % (Auto) Baso % (Auto) Lymph # (Auto) [place] # (Auto) Eos # (Auto) Baso # (Auto) Abs Immat Gran (auto) Absolute Neuts (auto) Absolute Nucleated RBC Nucleated RBC % (auto) Smear Tech's Comments VBG pH VBG pCO2 VBG pO2 VBG HCO3 VBG O2 Saturation VBG Base Excess Anion Gap Estim Creat Clear Calc Estimated GFR POC Glucose Random Glucose Calcium Phosphorus Magnesium Albumin 03/28/25 03/28/25 03/28/25 08:13 08:13 08:13 MCV MCH MCHC Cancelled RDW 14.5 Cancelled Plt Count 217 Cancelled MPV 10.4 Immature Gran % (Auto) Neut % (Auto) Lymph % (Auto) [place] % (Auto) Eos % (Auto) Baso % (Auto) Lymph # (Auto) [place] # (Auto) Eos # (Auto) Baso # (Auto) Abs Immat Gran (auto) Absolute Neuts (auto) Absolute Nucleated RBC Nucleated RBC % (auto) Smear Tech's Comments VBG pH VBG pCO2 VBG pO2 VBG HCO3 VBG O2 Saturation VBG Base Excess Anion Gap Estim Creat Clear Calc Estimated GFR POC Glucose Random Glucose Calcium Phosphorus Magnesium Albumin 03/28/25 03/28/25 03/28/25 08:13 08:13 08:13 MCV MCH MCHC RDW Plt Count MPV Cancelled Immature Gran % (Auto) 0.5 H Neut % (Auto) 78.9 H Lymph % (Auto) 11.0 L [place] % (Auto) 8.0 Eos % (Auto) 1.1 Baso % (Auto) 0.5 Lymph # (Auto) 0.7 L [place] # (Auto) 0.5 Eos # (Auto) 0.1 Baso # (Auto) 0.0 Abs Immat Gran (auto) 0.03 Absolute Neuts (auto) 5.3 Absolute Nucleated RBC 0.000 Cancelled Nucleated RBC % (auto) 0.0 Cancelled Smear Tech's Comments VERIFIED VBG pH VBG pCO2 VBG pO2 VBG HCO3 VBG O2 Saturation VBG Base Excess Anion Gap 13 Estim Creat Clear Calc Estimated GFR POC Glucose Random Glucose Calcium Phosphorus Magnesium Albumin 03/28/25 03/28/25 03/28/25 08:13 08:13 08:13 MCV MCH MCHC RDW Plt Count MPV Immature Gran % (Auto) Neut % (Auto) Lymph % (Auto) [place] % (Auto) Eos % (Auto) Baso % (Auto) Lymph # (Auto) [place] # (Auto) Eos # (Auto) Baso # (Auto) Abs Immat Gran (auto) Absolute Neuts (auto) Absolute Nucleated RBC Nucleated RBC % (auto) Smear Tech's Comments VBG pH VBG pCO2 VBG pO2 VBG HCO3 VBG O2 Saturation VBG Base Excess Anion Gap Cancelled Estim Creat Clear Calc 73.2 Cancelled Estimated GFR > 60 Cancelled POC Glucose Random Glucose 210 H Calcium Phosphorus Magnesium Albumin 03/28/25 03/28/25 03/28/25 08:13 08:13 08:30 MCV MCH MCHC RDW Plt Count MPV Immature Gran % (Auto) Neut % (Auto) Lymph % (Auto) [place] % (Auto) Eos % (Auto) Baso % (Auto) Lymph # (Auto) [place] # (Auto) Eos # (Auto) Baso # (Auto) Abs Immat Gran (auto) Absolute Neuts (auto) Absolute Nucleated RBC Nucleated RBC % (auto) Smear Tech's Comments VBG pH 7.43 VBG pCO2 51 VBG pO2 209 VBG HCO3 34 H VBG O2 Saturation 99.0 VBG Base Excess 9.0 Anion Gap Estim Creat Clear Calc Estimated GFR POC Glucose Random Glucose Cancelled Calcium 9.2 D Cancelled Phosphorus 2.5 L Magnesium 2.1 Albumin 4.1 03/28/25 11:16 MCV MCH MCHC RDW Plt Count MPV Immature Gran % (Auto) Neut % (Auto) Lymph % (Auto) [place] % (Auto) Eos % (Auto) Baso % (Auto) Lymph # (Auto) [place] # (Auto) Eos # (Auto) Baso # (Auto) Abs Immat Gran (auto) Absolute Neuts (auto) Absolute Nucleated RBC Nucleated RBC % (auto) Smear Tech's Comments VBG pH VBG pCO2 VBG pO2 VBG HCO3 VBG O2 Saturation VBG Base Excess Anion Gap Estim Creat Clear Calc Estimated GFR POC Glucose 285 H Random Glucose Calcium Phosphorus Magnesium Albumin Microbiology Microbiology Results: Microbiology 03/27/25 Unknown Urine Culture - Preliminary Urine clean catch - Clean Catch Midstream Staphylococcus species 03/26/25 23:08 Blood Culture - Preliminary Blood - Venous No growth after 24 hours. 03/26/25 22:41 Blood Culture - Preliminary Blood - Venous No growth after 24 hours. Assessment and Plan (1) Acute exacerbation of chronic obstructive pulmonary disease: Status: Resolved Plan The patient is a 75-year-old male with a past medical history of COPD (on 2-3 L at home), congestive heart failure, hypertension, hyperlipidemia, coronary artery disease, liver cirrhosis, obesity, anemia of chronic disease, anxiety, depression and recent admission 03/08/25 to 03/11/2025 for acute respiratory failure due to copd exacerbation that initially required ICU admission for BiPAP support. ?Pt was transferred to the hospital floor on 03/27. Acute on chronic hypoxic respiratory failure and hypercapnia in the setting of COPD exacerbation VBG 7.26/99/44/45 CXR negative for acute infectious process Treat with DuoNebs, Solu-Medrol, empiric azithromycin Titrate supplemental oxygen to home 3 L NC with O2 goal of 88-90% Monitor respiratory status Afs-dbukbdi-wjifxprty type 2 diabetes continue home glipizide Sliding-scale insulin, diabetic diet CAD: No new symptoms Continue home aspirin and atorvastatin Anxiety/depression: Continue home escitalopram Prophylaxis: Lovenox Pt requires continued hospitalization for IV steroids and bronchodilator therapy. Given patient's significant comorbidities, recent ICU admission for BiPAP support, and currently not being back to baseline, pt is at risk for quick bounce back to the hospital without additional respiratory therapy in the hospital. Quality Stroke Does the patient have a stroke diagnosis?: No VTE Prior VTE?: No VTE Risk Level:: Medical - moderate - high VTE Device Contraindication: N/A - Device Ordered VTE Drug Contraindication: N/A - Med Ordered
[2025-03-28 15:25] LABS: Glucose, Whole Blood 271 mg/dL (60-115)
[2025-03-28 21:00] LABS: Glucose, Whole Blood 275 mg/dL (60-115)
[2025-03-29 02:53] VITALS: PULSE 80; RESP 17; O2SAT 93
[2025-03-29 03:00] VITALS: BP 97/54; PULSE 74; RESP 18; TEMP 36.8; O2SAT 95
[2025-03-29 06:00] VITALS: BMI 30.8
[2025-03-29 07:08] VITALS: BP 113/63; PULSE 64; RESP 18; TEMP 36.4; O2SAT 98
--- NOTE | 2025-03-29 07:22 | HO.PM.IMPN ---
Subjective Subjective Date of Service: 03/29/25 Physical Exam Vital Signs: Vital Signs: Last Vital Signs Temp 97.6 F 03/29/25 07:08 Pulse 64 03/29/25 07:08 Resp 18 03/29/25 07:08 BP 113/63 03/29/25 07:08 Pulse Ox 98 03/29/25 07:08 O2 Del Method Nasal Cannula 03/29/25 07:08 O2 Flow Rate 3 03/29/25 07:08 FiO2 36 03/27/25 07:14 Oxygen Flow Rate 3 03/26/25 22:35 BMI result Body Mass Index 34.5 Objective Data Active Medications Albuterol/Ipratropium (Albuterol/Iprat 2.5/0.5mg 3 Ml Ampul.Neb) 3 ml INHALE RQ4H WHILE AWAKE [facility] Last Admin: 03/28/25 20:18 Dose: 3 ml Documented By: GILBERT Albuterol/Ipratropium (Albuterol/Iprat 2.5/0.5mg 3 Ml Ampul.Neb) 3 ml INHALE Q6H PRN PRN Reason: Wheezing Aspirin (Aspirin 81 Mg Tab.Chew) 81 mg PO DAILY [facility] Last Admin: 03/28/25 08:48 Dose: 81 mg Documented By: WESTON Atorvastatin Calcium (Atorvastatin Calcium 80 Mg Tablet) 80 mg PO BEDTIME [facility] Last Admin: 03/28/25 20:32 Dose: 80 mg Documented By: KOFI Dextrose (Dextrose 50 % 25 Gm/50 Ml Syringe) 25 gm IVPUSH Q15M PRN; Protocol PRN Reason: per Hypoglycemia Standing Ord. Enoxaparin Sodium (Enoxaparin Sodium 40 Mg/0.4 Ml Syringe) 40 mg SUBCUT Q24H [facility] Last Admin: 03/28/25 07:54 Dose: Not Given Documented By: WESTON Non-Admin Reason: Patient Refused Escitalopram Oxalate (Escitalopram Oxalate 20 Mg Tablet) 20 mg PO DAILY [facility] Last Admin: 03/28/25 08:46 Dose: 20 mg Documented By: WESTON Ferrous Sulfate (Ferrous Sulfate 324 Mg Tablet.) 324 mg PO DAILY [facility] Last Admin: 03/28/25 08:45 Dose: 324 mg Documented By: WESTON Fluticasone/Vilanterol (Fluticasone/Vilanterol 200/25 Blst.W.Dev) 1 puff INHALE RDAILY [facility] Last Admin: 03/28/25 08:13 Dose: 1 puff Documented By: FUENTES Furosemide (Furosemide 20 Mg Tablet) 20 mg PO DAILY [facility]; Protocol Last Admin: 03/28/25 08:47 Dose: 20 mg Documented By: WESTON Glipizide (Glipizide 5 Mg Tablet) 5 mg PO BID [facility] Last Admin: 03/28/25 20:31 Dose: 5 mg Documented By: KOFI Glucose (Glucose Gel 15 Gm Gel..Gram.) 15 gm PO Q15M PRN; Protocol PRN Reason: per Hypoglycemia Standing Ord. Azithromycin 500 mg/ Sodium (Chloride) 250 mls @ 125 mls/hr IV Q24H [facility] Last Infusion: 03/28/25 23:33 Dose: Infused Documented By: KOFI Insulin Human Lispro (Insulin Lispro 100 Unit/Ml 3 Ml Vial) 0 unit SUBCUT QIDACHS [facility]; Protocol Last Admin: 03/28/25 20:44 Dose: 6 unit Documented By: KOFI Lactulose (Lactulose 20 Gm/30 Ml Solution) 10 gm PO TID PRN PRN Reason: Constipation Lorazepam (Lorazepam 0.5 Mg Tablet) 0.5 mg PO BID PRN PRN Reason: Anxiety Last Admin: 03/28/25 17:55 Dose: 0.5 mg Documented By: WESTON Methylprednisolone Sodium Succinate (Methylprednisolone Sod Succ 40 Mg/Ml Vial) 40 mg IVPUSH Q12H [facility] Metoprolol Tartrate (Metoprolol Tartrate 25 Mg Tablet) 25 mg PO BID [facility]; Protocol Last Admin: 03/28/25 20:31 Dose: 25 mg Documented By: KOFI Omeprazole (Omeprazole 20 Mg Capsule.Dr) 20 mg PO DAILY@0630 [facility] Last Admin: 03/29/25 05:29 Dose: 20 mg Documented By: KOFI Senna (Sennosides 8.6 Mg Tablet) 17.2 mg PO BID PRN PRN Reason: Constipation Last Admin: 03/28/25 08:46 Dose: 17.2 mg Documented By: WESTON Labs 03/28/25 08:13 03/28/25 08:13 Labs: Laboratory Results - last 24 hr 03/28/25 03/28/25 03/28/25 08:13 08:13 08:13 MCV 94.3 Cancelled MCH 27.4 Cancelled MCHC 29.1 L RDW Plt Count MPV Immature Gran % (Auto) Neut % (Auto) Lymph % (Auto) [place] % (Auto) Eos % (Auto) Baso % (Auto) Lymph # (Auto) [place] # (Auto) Eos # (Auto) Baso # (Auto) Abs Immat Gran (auto) Absolute Neuts (auto) Absolute Nucleated RBC Nucleated RBC % (auto) Smear Tech's Comments VBG pH VBG pCO2 VBG pO2 VBG HCO3 VBG O2 Saturation VBG Base Excess Anion Gap Estim Creat Clear Calc Estimated GFR POC Glucose Random Glucose Calcium Phosphorus Magnesium Albumin 03/28/25 03/28/25 03/28/25 08:13 08:13 08:13 MCV MCH MCHC Cancelled RDW 14.5 Cancelled Plt Count 217 Cancelled MPV 10.4 Immature Gran % (Auto) Neut % (Auto) Lymph % (Auto) [place] % (Auto) Eos % (Auto) Baso % (Auto) Lymph # (Auto) [place] # (Auto) Eos # (Auto) Baso # (Auto) Abs Immat Gran (auto) Absolute Neuts (auto) Absolute Nucleated RBC Nucleated RBC % (auto) Smear Tech's Comments VBG pH VBG pCO2 VBG pO2 VBG HCO3 VBG O2 Saturation VBG Base Excess Anion Gap Estim Creat Clear Calc Estimated GFR POC Glucose Random Glucose Calcium Phosphorus Magnesium Albumin 03/28/25 03/28/25 03/28/25 08:13 08:13 08:13 MCV MCH MCHC RDW Plt Count MPV Cancelled Immature Gran % (Auto) 0.5 H Neut % (Auto) 78.9 H Lymph % (Auto) 11.0 L [place] % (Auto) 8.0 Eos % (Auto) 1.1 Baso % (Auto) 0.5 Lymph # (Auto) 0.7 L [place] # (Auto) 0.5 Eos # (Auto) 0.1 Baso # (Auto) 0.0 Abs Immat Gran (auto) 0.03 Absolute Neuts (auto) 5.3 Absolute Nucleated RBC 0.000 Cancelled Nucleated RBC % (auto) 0.0 Cancelled Smear Tech's Comments VERIFIED VBG pH VBG pCO2 VBG pO2 VBG HCO3 VBG O2 Saturation VBG Base Excess Anion Gap 13 Estim Creat Clear Calc Estimated GFR POC Glucose Random Glucose Calcium Phosphorus Magnesium Albumin 03/28/25 03/28/25 03/28/25 08:13 08:13 08:13 MCV MCH MCHC RDW Plt Count MPV Immature Gran % (Auto) Neut % (Auto) Lymph % (Auto) [place] % (Auto) Eos % (Auto) Baso % (Auto) Lymph # (Auto) [place] # (Auto) Eos # (Auto) Baso # (Auto) Abs Immat Gran (auto) Absolute Neuts (auto) Absolute Nucleated RBC Nucleated RBC % (auto) Smear Tech's Comments VBG pH VBG pCO2 VBG pO2 VBG HCO3 VBG O2 Saturation VBG Base Excess Anion Gap Cancelled Estim Creat Clear Calc 73.2 Cancelled Estimated GFR > 60 Cancelled POC Glucose Random Glucose 210 H Calcium Phosphorus Magnesium Albumin 03/28/25 03/28/25 03/28/25 08:13 08:13 08:30 MCV MCH MCHC RDW Plt Count MPV Immature Gran % (Auto) Neut % (Auto) Lymph % (Auto) [place] % (Auto) Eos % (Auto) Baso % (Auto) Lymph # (Auto) [place] # (Auto) Eos # (Auto) Baso # (Auto) Abs Immat Gran (auto) Absolute Neuts (auto) Absolute Nucleated RBC Nucleated RBC % (auto) Smear Tech's Comments VBG pH 7.43 VBG pCO2 51 VBG pO2 209 VBG HCO3 34 H VBG O2 Saturation 99.0 VBG Base Excess 9.0 Anion Gap Estim Creat Clear Calc Estimated GFR POC Glucose Random Glucose Cancelled Calcium 9.2 D Cancelled Phosphorus 2.5 L Magnesium 2.1 Albumin 4.1 03/28/25 03/28/25 03/28/25 11:16 15:18 20:40 MCV MCH MCHC RDW Plt Count MPV Immature Gran % (Auto) Neut % (Auto) Lymph % (Auto) [place] % (Auto) Eos % (Auto) Baso % (Auto) Lymph # (Auto) [place] # (Auto) Eos # (Auto) Baso # (Auto) Abs Immat Gran (auto) Absolute Neuts (auto) Absolute Nucleated RBC Nucleated RBC % (auto) Smear Tech's Comments VBG pH VBG pCO2 VBG pO2 VBG HCO3 VBG O2 Saturation VBG Base Excess Anion Gap Estim Creat Clear Calc Estimated GFR POC Glucose 285 H 271 H 275 H Random Glucose Calcium Phosphorus Magnesium Albumin Microbiology Microbiology Results: Microbiology 03/26/25 23:08 Blood Culture - Preliminary Blood - Venous No growth after 48 hours. 03/26/25 22:41 Blood Culture - Preliminary Blood - Venous No growth after 48 hours. 03/27/25 Unknown Urine Culture - Preliminary Urine clean catch - Clean Catch Midstream Staphylococcus species Quality Stroke Does the patient have a stroke diagnosis?: No VTE Prior VTE?: No VTE Risk Level:: Medical - moderate - high VTE Device Contraindication: N/A - Device Ordered VTE Drug Contraindication: N/A - Med Ordered
[2025-03-29 07:27] LABS: Glucose, Whole Blood 201 mg/dL (60-115)
[2025-03-29] MEDS: Fluticasone/Vilanterol 200/25 BLST.W.DEV 1 PUFF INHALE (07:35)
[2025-03-29] MEDS: Albuterol/Iprat 2.5/0.5MG 3 ML AMPUL.NEB INHALE ×2 (07:35→11:38)
[2025-03-29 07:49] VITALS: PULSE 70; RESP 18
[2025-03-29] MEDS: Ferrous Sulfate 324 MG TABLET.DR PO (08:13)
--- NOTE | 2025-03-29 11:07 | P.DS_ITS ---
DS: Providers Provider Date of admission: 03/27/25 03:15 Date of discharge: 03/29/25 Primary care physician: Anne-Marie Muro MD DS: Diagnosis Discharge Diagnosis (1) Acute exacerbation of chronic obstructive pulmonary disease: Status: Resolved DS: Summary Hospital Course Hospital Course: Per H&P: Attending physician on admission: Polo Jones Chief Complaint: Dyspnea The patient is a 75-year-old male with a past medical history of COPD (on 2-3 L at home), congestive heart failure, hypertension, hyperlipidemia, coronary artery disease, liver cirrhosis, obesity, anemia of chronic disease, anxiety, depression and recent admission 03/08/25 to 03/11/2025 for acute respiratory failure due to copd exacerbation that require BiPAP support. ? Tonight patient presented to the emergency department with worsening dyspnea. On arrival to the emergency department, patient noted to be in mild respiratory distress, satting 86% on home 3 L. Venous gas consistent with acute on chronic hypoxic and hypercapnic respiratory failure 7./44/45 Imaging: Chest x-ray:? No acute infectious process ED Course: He received DuoNeb 5 mg, ceftriaxone 1 g and azithromycin 500 mg, magnesium 2 g and a 1.7 L bolus. ?Patient is placed on BiPAP HOSPITAL COURSE: The patient with known COPD on 2?3 L home oxygen was admitted for?acute on chronic hypoxic and hypercapnic respiratory failure due to a COPD exacerbation. Initial VBG showed?pH 7.26 / pCO? 99, and he required?ICU admission with BiPAP support. Chest X?ray showed?no acute infectious process. He was treated with?scheduled DuoNebs, IV methylprednisolone (Solu?Medrol), and empiric azithromycin, with gradual improvement in respiratory status. The patient was subsequently transferred from the ICU to the medical floor on?03/27. Supplemental oxygen was titrated down to his?baseline 3 L nasal cannula, maintaining oxygen saturations in the?goal range of 88?90%. Hypercapnia and hypoxia improved, and the COPD exacerbation resolved with treatment. Other Active Problems Addressed: * Type 2 diabetes mellitus:?Continued home glipizide; managed with sliding?scale insulin and diabetic diet during hospitalization. * Coronary artery disease:?No chest pain or ischemic symptoms; continued home aspirin and atorvastatin. * Anxiety/depression:?Continued home escitalopram. * VTE prophylaxis:?Enoxaparin during hospitalization. Condition at Discharge: Improved and clinically stable. Respiratory status returned close to baseline on home oxygen requirements. No longer requiring IV steroids or intensive respiratory support. Discharge Medications: * Continue home inhalers and bronchodilator regimen * Prednisone taper as prescribed (if applicable) * Home oxygen at?3 L nasal cannula * Aspirin, atorvastatin * Glipizide * Escitalopram * Other home medications as reconciled Discharge Instructions and Follow?Up: * Continue home oxygen and COPD maintenance therapy * Monitor for worsening shortness of breath, increased sputum, or hypoxia * Follow up with primary care physician and pulmonology as outpatient * Smoking cessation counseling reinforced (if applicable) Disposition: Discharged home (or appropriate facility) with close outpatient follow?up given?significant comorbidities and recent ICU admission, placing the patient at higher risk for readmission. Time spent discussing smoking cessation with patient: more than 10 minutes Status at Discharge Functional status at discharge: independent ambulation Overall status at discharge: patient is back to baseline Time Attestation Discharge Coordination Time (in mins): 75 Quality: Safe Use of Opioids Does Pt have an Active Cancer Diagnosis on the Problem List?: No Quality: Stroke Does the patient have a stroke diagnosis?: No Physical Exam Vital Signs: Vital Signs: Last Vital Signs Temp 97.6 F 03/29/25 07:08 Pulse 70 03/29/25 07:49 Resp 18 03/29/25 07:49 BP 113/63 03/29/25 07:08 Pulse Ox 98 03/29/25 07:08 O2 Del Method Nasal Cannula 03/29/25 07:08 O2 Flow Rate 3 03/29/25 07:08 FiO2 36 03/27/25 07:14 Oxygen Flow Rate 3 03/26/25 22:35 BMI result Body Mass Index 30.8 DS: Data Data Completed and Pending Completed studies during hospitalization [Text1]: Procedures Assistance with Respiratory Ventilation, Less than 24 Consecutive Hours, Continuous Positive Airway Pressure (12/17/24) Excision of Rectum, Via Natural or Artificial Opening Endoscopic, Diagnostic (05/26/24) Excision of Sigmoid Colon, Via Natural or Artificial Opening Endoscopic, Diagnostic (05/26/24) Excision of Transverse Colon, Via Natural or Artificial Opening Endoscopic, Diagnostic (05/26/24) Irrigation of Lower GI using Irrigating Substance, Via Natural or Artificial Ope oscar (07/29/22) Labs on day of discharge: Laboratory Results - last 24 hr 03/28/25 03/28/25 03/28/25 11:16 15:18 20:40 POC Glucose 285 H 271 H 275 H 03/29/25 07:13 POC Glucose 201 H Preliminary micro results at discharge 03/26/25 23:08 Blood Culture - Preliminary Blood - Venous No growth after 48 hours. 03/26/25 22:41 Blood Culture - Preliminary Blood - Venous No growth after 48 hours. Discharge Plan Discharge Anticipated Discharge Date/Time: 03/29/25 13:19 Patient Disposition: Home, Self-Care Discharge Diagnosis: AE COPD Referrals: Rosmery Esqueda MD [Physician, Pulmonology] - 1 Week Anne-Marie Muro MD [Primary Care Provider, Internal Medicine] - 1 Week Discharge Medications: New prednisone 20 mg tablet 40 mg PO DAILY 10 Days Qty: 20 0RF Continued (DME) blood-glucose meter [FreeStyle Lite Meter] Kit See Rx Instructions .Route Qty: 1 0RF Rx Instructions: As directed glipizide 5 mg tablet 5 mg PO BID Qty: 270 4RF escitalopram oxalate 20 mg tablet 20 mg PO DAILY Qty: 90 3RF metoprolol tartrate 25 mg tablet 25 mg PO BID Qty: 180 1RF atorvastatin 80 mg tablet 80 mg PO BEDTIME Qty: 90 1RF metformin 1,000 mg tablet 1,000 mg PO BID Qty: 180 1RF omeprazole 20 mg capsule,delayed release(DR/EC) 20 mg PO DAILY@0630 Qty: 30 1RF ipratropium-albuterol 0.5 mg-3 mg(2.5 mg base)/3 mL solution for nebulization 3 ml inhalation Q6H PRN (Reason: wheezing) Qty: 180 2RF (DME) FreeStyle Lite Strips Strip See Rx Instructions .Route Qty: 100 11RF Rx Instructions: check blood sugar twice a day (DME) lancets [FreeStyle Lancets] 28 gauge misc See Rx Instructions .Route Qty: 100 11RF Rx Instructions: Test blood sugar twice a day lorazepam [Ativan] 1 mg tablet 0.5 mg PO BID PRN (Reason: anxiety) Qty: 30 0RF Rx Instructions: Patient may request partial fill budesonide-formoterol [Symbicort] 160-4.5 mcg/actuation Hfa Aerosol Inhaler 2 puff INHALATION BID calcium carbonate-vitamin D3 600 mg-10 mcg (400 unit) tablet 1 tab PO DAILY albuterol sulfate [Ventolin HFA] 90 mcg/actuation HFA aerosol inhaler 2 puff inhalation Q4H PRN (Reason: shortness of breath or wheezing) aspirin 81 mg Tablet 81 mg PO DAILY azithromycin 500 mg tablet 500 mg PO MOWEFR@0900 (DME) Oxygen Home Use Kit See Rx Instructions .Route Rx Instructions: As directed sennosides [senna] 8.6 mg tablet 17.2 mg PO BID PRN (Reason: constipation) 90 Days Qty: 360 1RF lactulose 10 gram/15 mL solution 10 g PO TID PRN (Reason: Constipation) 30 Days Qty: 946 3RF ferrous sulfate 325 mg (65 mg iron) tablet 325 mg PO DAILY Qty: 90 1RF furosemide [Lasix] 20 mg tablet 20 mg PO DAILY Qty: 90 1RF Discharge Orders: Discharge Order (Routine); Ordered 03/29/25 Ordered By: Love Melgar Diet: Low salt diet Activity on Discharge: Use cane or walker Stand Alone Forms: Patient Portal Discharge page Print Language: Uzbek Care Plan Goals: Please complete the prolonged prednisone taper for 10 days take 40 mg daily Make sure you take antacid along with it (omeprazole) Please follow up with the machine tech and primary care within a week after discharge Health Concerns: See above Plan of Treatment: See above Assessment: See above
[2025-03-29 11:31] LABS: Glucose, Whole Blood 152 mg/dL (60-115)
[2025-03-29 11:38] VITALS: BP 117/63; PULSE 64; RESP 18; TEMP 36.5; O2SAT 97
[2025-03-29 11:40] VITALS: PULSE 64; RESP 18; O2SAT 94
--- NOTE | 2025-03-29 13:33 | MHC.CM.PN ---
Patient has been medically cleared for dc to home today, self care.
== END 2025-03-29 14:58 | disposition home or self-care (01) | DRG 190 ==
LOC: HO.ED 03-27 03:17 → HO.EDOVER 03-27 03:19 → HO.ICU 03-27 03:20 → HO.IMC 03-27 12:36
PROVIDERS: Internal Medicine Pulmonary Disease; Student in an Organized Health Care Education/Training Program; Admitting Provider Registered Nurse Community Health; Emergency Provider Emergency Medicine; PCP Internal Medicine; Visit Provider Student in an Organized Health Care Education/Training Program
DX: J44.1 Chronic obstructive pulmonary disease with (acute) exacerbation (principal); J96.21 Acute and chronic respiratory failure with hypoxia; J96.22 Acute and chronic respiratory failure with hypercapnia; N39.0 Urinary tract infection, site not specified; I25.10 Atherosclerotic heart disease of native coronary artery without angina pectoris; E11.9 Type 2 diabetes mellitus without complications; I10 Essential (primary) hypertension; F41.9 Anxiety disorder, unspecified; B95.62 Methicillin resistant Staphylococcus aureus infection as the cause of diseases classified elsewhere; F32.A Depression, unspecified; Z20.822 Contact with and (suspected) exposure to COVID-19; Z99.81 Dependence on supplemental oxygen; Z79.82 Long term (current) use of aspirin; Z79.84 Long term (current) use of oral hypoglycemic drugs; Z79.85 Long-term (current) use of injectable non-insulin antidiabetic drugs; Z79.899 Other long term (current) drug therapy
CPT/HCPCS: 36415; 71045; 80048; 81001; 82040; 82803; 82947; 83605; 83735; 83880; 84100; 84484; 85025; 87040; 87086; 87088; 87186; 87637; 93005; 94640; 94660; 94799; 97161; 99285; J0456; J0696; J1120; J1650; J2919; J3475

== ENCOUNTER → 2025-03-26 22:38 | Outpatient (BNV) | payer MEDICARE, SELFPAY | PROVIDERS: Emergency Provider Emergency Medicine; Visit Provider Student in an Organized Health Care Education/Training Program | DX: R91.8 Other nonspecific abnormal finding of lung field (principal) | CPT/HCPCS: 71045 ==

== ENCOUNTER → 2025-03-26 22:38 | Outpatient (BNV) | payer MEDICARE, SELFPAY | PROVIDERS: Admitting Provider Registered Nurse Community Health; Emergency Provider Emergency Medicine; Visit Provider Internal Medicine Cardiovascular Disease | DX: R06.02 Shortness of breath (principal) | CPT/HCPCS: 93010 ==

== ENCOUNTER → 2025-03-27 03:15 | Outpatient (BNV) | payer MEDICARE, SELFPAY | PROVIDERS: Admitting Provider Registered Nurse Community Health; Emergency Provider Emergency Medicine; Visit Provider Registered Nurse Community Health | DX: J44.1 Chronic obstructive pulmonary disease with (acute) exacerbation (principal); J96.21 Acute and chronic respiratory failure with hypoxia; J96.22 Acute and chronic respiratory failure with hypercapnia | CPT/HCPCS: 99291 ==

== ENCOUNTER → 2025-03-27 03:15 | Outpatient (BNV) | payer MEDICARE, SELFPAY | PROVIDERS: Admitting Provider Registered Nurse Community Health; Emergency Provider Emergency Medicine; Visit Provider Student in an Organized Health Care Education/Training Program | DX: J44.1 Chronic obstructive pulmonary disease with (acute) exacerbation (principal) | CPT/HCPCS: 99233 ==